=== PATIENT | female | born 1940 | race Caucasian/White ===

== ENCOUNTER → 2017-05-28 06:50 | Outpatient (REF) | payer MEDICARE, MEDICAID, SELFPAY ==
[2017-05-28 09:01] LABS: Hematocrit 42.3 % (37-47); Hemoglobin 12.9 g/dl (12.0-15.0); Mean Corp Hgb Conc 30.5 g/gl (32-36); Mean Corpuscular Hgb 26.9 pg (27.0-32.0); Mean Corpuscular Volume 88.3 fL (81-99); Mean Platelet Vol. 10.9 fl (6.2-12.0); Platelet Count 212 K/mm3 (150-450); RBC Distribution Width CV 15.1 % (11.6-14.6); RBC Distribution Width SD 48.8 fl (35.1-43.9); Red Blood Count 4.79 M/mm3 (4.2-5.4); White Blood Count 9.7 K/mm3 (4.4-11.0)
[2017-05-28 09:05] LABS: Scan Indicated on CBC? Y/N NO
[2017-05-28 09:12] LABS: Anion Gap 10 (5-15); BUN 16 mg/dL (7-18); BUN/Creat Ratio 18.8 RATIO (10-20); Chloride 97 mmol/L (98-107); Cholesterol 175 mg/dL (200); Creatinine, Serum 0.85 mg/dL (0.55-1.02); EST Glomerular Filtration Rate 69 mL/min (>60); Est Glom Filt Rate - Afr Amer 84 mL/min (>60); Glucose 236 mg/dL (70-110); High Density Lipoprotein 65 mg/dL; Potassium 4.1 mmol/L (3.5-5.1); Sodium Level 137 mmol/L (136-145); Triglycerides 75 mg/dL; Very Low Density Lipoprotein 15 mg/dL (5-40)
[2017-05-28 09:26] LABS: Hemoglobin A1c 9.3 % (4.2-6.3)
== END ==
LOC: OLS.WHLEAS 06:50
PROVIDERS: Visit Provider Family Medicine
DX: I10 Essential (primary) hypertension (principal); E78.5 Hyperlipidemia, unspecified; E11.9 Type 2 diabetes mellitus without complications
CPT/HCPCS: 36415; 80048; 80061; 83036; 85027

== ENCOUNTER 2017-09-23 08:19 | Day surgery (SDC) | payer MEDICARE, MEDICAID, SELFPAY ==
[2017-09-23 08:42] VITALS: BP 116/49; PULSE 79; RESP 16; TEMP 36.8; O2SAT 96; BMI 34.4
[2017-09-23 09:01] LABS: Bedside Glucose 165 mg/dL (70-110)
--- NOTE | 2017-09-23 09:20 | RAD_ITS ---
STUDY: X-RAY - LUMBAR SPINE REASON FOR EXAM: Female, 77 years old. Radio frequency ablation of L3-S1. TECHNIQUE: 9 intraoperative view(s) of the lumbar spine were obtained. COMPARISON: None FINDINGS: Provided images demonstrate placement of needles at the facet joints of L3-S1. Please refer to the operative report for further details. RAD/L/S Spine Min 4 Views IMPRESSION: Radiofrequency ablation of L3-S1 in the OR. Electronically Signed: Helio Gamboa DO at 13:34 EDT Tel [phone], Service support ,
[2017-09-23] MEDS: MethylPREDNISolone Acetate 80 MG/ML Vial (09:26)
[2017-09-23] MEDS: Bupivacaine 0.25% 30 ML Vial (09:26)
[2017-09-23 09:43] VITALS: BP 116/49; BP 117/68; PULSE 77; RESP 18; TEMP 37.3; O2SAT 94
[2017-09-23 09:50] VITALS: BP 105/55; BP 116/49; PULSE 72; RESP 18; O2SAT 93
[2017-09-23 09:55] VITALS: BP 115/58; BP 116/49; PULSE 71; RESP 18; O2SAT 96
[2017-09-23 10:03] VITALS: BP 106/64; BP 116/49; PULSE 71; RESP 18; TEMP 37; O2SAT 96
[2017-09-23 10:14] VITALS: BP 116/49
--- NOTE | 2017-09-23 12:51 | PCM.OPRPT ---
Problem List (1) Degeneration of intervertebral disc of lumbosacral region Status: Chronic (2) Spondylosis of lumbosacral region without myelopathy or radiculopathy Status: Chronic Report of Operation Date of Procedure: 09/23/17 Pre-Operative Diagnosis: Lumbosacral spondylosis, lumbosacral degenerative disc disease, lumbar facet arthropathy Post-Operative Diagnosis: Lumbosacral spondylosis, lumbosacral degenerative disc disease, lumbar facet arthropathy Surgery/Procedure Performed:: Right sided lumbar radiofrequency ablation of the medial branch at L3, L4, L5, S1 Description of Surgical Findings:: PROCEDURE: Right-sided radiofrequency ablation of the medial branch L3, L4, L5, S1 PREOPERATIVE DIAGNOSES: Lumbosacral spondylosis, lumbosacral degenerative disc disease, lumbar facet arthropathy POSTOPERATIVE DIAGNOSES: Lumbosacral spondylosis, lumbosacral degenerative disc disease, lumbar facet arthropathy ANESTHESIA: MAC COMPLICATIONS: None BLOOD LOSS: Minimal PROCEDURE IN DETAIL: History and physical today was reviewed. Risks and benefits of procedure explained. The patient understood, agreed to the procedure and informed consent was obtained. IV inserted per routine protocol. The patient was taken to the operating room, placed in the prone position with a pillow positioned underneath the abdomen. The right side of the lower back was prepped and draped in a sterile fashion using iodine x 3. Under fluoroscopy guidance, on an oblique view, the L3 through S1 vertebral bodies were visualized. The skin and subcutaneous tissue was anesthetized with approximately 10 mL of 1% lidocaine using a 25-gauge regular needle. Under direct visualization with fluoroscopy at approximately 25-degree angle, starting on the right L3, ending on the right S1 passing through the L4-L5 using a 20-gauge 15 cm with a 10 mm curved active tip radiofrequency ablation needle the needle passed through the skin. The tip of the needle was maneuvered and directed towards the superior and medial gutter of the transverse process at the vicinity of the medial branch. Once the tip of the needle was in contact with the bone, the needle pulled approximately 2 mm up the bone. The stylet of each needle was then removed. After negative aspiration of blood with CSF and confirmation of AP as well as oblique view, radiofrequency ablation probe was then inserted at each level. Impedance was then recorded at L3 to be 265, at L4 272, at L5 238, at S1 274 ohm. Motor-evoked potential was then initiated to 1.5 volt without any motor response at each corresponding level. The probe was then removed intact and a total of 6 mL preservative-free 1% lidocaine was injected in divided doses between those 4 levels after negative aspiration of blood with CSF. The radiofrequency ablation probe was then reinserted after confirmation of AP, oblique as well as lateral view. Radiofrequency ablation was then initiated to 80 degrees Celsius for 90 seconds at each level. Once concluded, the probe was then removed intact and a total of 6 mL of preservative-free 0.25% Marcaine with 40 mg Depo-Medrol was injected in divided doses between those 4 levels. The needles were then removed intact. The patient experienced no signs or symptoms of intrathecal, intravascular injection. The patient experienced no paraesthesia. The procedure was completed without any apparent difficulty, any complication. The patient appeared to tolerate well. Sensory as well as motor exam was unchanged from prior to procedure. ASSESSMENT AND PLAN: This is a 77-year-old Female with lumbosacral spondylosis, lumbosacral degenerative disc disease, lumbar facet arthropathy, status post right-sided radiofrequency ablation of the medial branch L3 through S1. The patient will continue her current medications. The patient will follow up in approximately 2 weeks for reevaluation.
== END 2017-09-23 10:28 | disposition home or self-care (01) ==
LOC: SDC 08:20 → AC 08:45
PROVIDERS: Family Provider Family Medicine; PCP Family Medicine; Visit Provider Anesthesiology Pain Medicine
PROC: (CPT 62282; principal; 2017-09-23 09:25)
DX: M47.817 Spondylosis without myelopathy or radiculopathy, lumbosacral region (principal); M51.37 Other intervertebral disc degeneration, lumbosacral region; K21.9 Gastro-esophageal reflux disease without esophagitis; F32.9 Major depressive disorder, single episode, unspecified; F41.9 Anxiety disorder, unspecified; E11.9 Type 2 diabetes mellitus without complications; M46.96 Unspecified inflammatory spondylopathy, lumbar region; M79.7 Fibromyalgia; M50.30 Other cervical disc degeneration, unspecified cervical region; M48.02 Spinal stenosis, cervical region; M47.812 Spondylosis without myelopathy or radiculopathy, cervical region; G89.29 Other chronic pain; M17.12 Unilateral primary osteoarthritis, left knee; Z79.891 Long term (current) use of opiate analgesic; Z96.651 Presence of right artificial knee joint
CPT/HCPCS: 62282 ×4; 72110; 76000; 82962; J7120

== ENCOUNTER → 2017-11-08 06:20 | Outpatient (REF) | payer MEDICARE, MEDICAID, SELFPAY ==
[2017-11-08 08:21] LABS: ALB/GLOB Ratio 0.9 RATIO (0.9-2.4); AST(SGOT) 23 U/L (15-37); Alanine Aminotransfer ALT/SGPT 30 U/L (13-56); Albumin, Serum 3.3 g/dL (3.2-5.0); Alkaline Phosphatase 73 U/L (45-117); Anion Gap 7 (5-15); BUN 13 mg/dL (7-18); BUN/Creat Ratio 14.5 RATIO (10-20); Calcium,Total 8.8 mg/dL (8.5-10.1); Chloride 103 mmol/L (98-107); Cholesterol 136 mg/dL (200); EST Glomerular Filtration Rate 65 mL/min (>60); Est Glom Filt Rate - Afr Amer 79 mL/min (>60); Globulin 3.8 g/dL (2.2-4.2); Glucose 135 mg/dL (74-106); High Density Lipoprotein 54 mg/dL; Potassium 4.8 mmol/L (3.5-5.1); Protein, Total 7.1 g/dL (6.4-8.2); Sodium Level 143 mmol/L (136-145); Triglycerides 83 mg/dL; Very Low Density Lipoprotein 17 mg/dL (5-40)
[2017-11-08 09:46] LABS: Hemoglobin A1c 7.9 % (4.2-6.3)
== END ==
LOC: OLS.WHLEAS 06:20
PROVIDERS: Visit Provider Family Medicine
DX: E11.9 Type 2 diabetes mellitus without complications (principal); I10 Essential (primary) hypertension; E78.5 Hyperlipidemia, unspecified
CPT/HCPCS: 36415; 80053; 80061; 83036

== ENCOUNTER 2017-11-23 21:37 | Emergency (ER) | payer MEDICARE, MEDICAID, SELFPAY ==
[2017-11-23 21:38] VITALS: BP 135/61; PULSE 97; RESP 18; TEMP 36.7; O2SAT 98; BMI 35.2
[2017-11-23 22:17] LABS: Absolute Lymphocyte Count 1.71 X10^3/ul (0.83-4.51); Absolute Neutrophil Count 7.5 X10^3/uL (2.0-7.7); Basophil# 0.02 X10^3/uL; Basophil% 0.2 % (0-1); Eosinophil# 0.22 X10^3/uL; Eosinophils% 2.2 % (0-5); Hematocrit 41.1 % (37-47); Hemoglobin 13.3 g/dl (12.0-15.0); Lymphocyte # 1.71 X10^3/ul (4.0); Lymphocyte % 17.3 % (19-41); Mean Corp Hgb Conc 32.4 g/gl (32-36); Mean Corpuscular Volume 89.7 fL (81-99); Mean Platelet Vol. 10.7 fl (6.2-12.0); Monocyte# 0.48 X10^3/uL; Monocyte% 4.8 % (0-10); Neutrophil # 7.45 X10^3/uL (2.7-7.7); Neutrophil % 75.3 % (47-70); POSITIVE COUNT NO; POSITIVE DIFFERENTIAL NO; POSITIVE MORPHOLOGY NO; Platelet Count 194 K/mm3 (150-450); RBC Distribution Width CV 13.7 % (11.6-14.6); RBC Distribution Width SD 44.6 fl (35.1-43.9); Red Blood Count 4.58 M/mm3 (4.2-5.4); White Blood Count 9.9 K/mm3 (4.4-11.0)
[2017-11-23 22:29] LABS: Anion Gap 6 (5-15); BUN 16 mg/dL (7-18); BUN/Creat Ratio 14.5 RATIO (10-20); Calcium,Total 8.8 mg/dL (8.5-10.1); Chloride 102 mmol/L (98-107); EST Glomerular Filtration Rate 51 mL/min (>60); Est Glom Filt Rate - Afr Amer 62 mL/min (>60); Estimated Creatinine Clearance 36.55 ml/min; Glucose 264 mg/dL (74-106); Potassium 4.3 mmol/L (3.5-5.1); Sodium Level 138 mmol/L (136-145)
--- NOTE | 2017-11-23 22:50 | ED.VISSUMM ---
- ER Visit Summary Date of Service: 11/23/17 Chief Complaint: Redness of the legs History of Present Illness: The patient is a 77 F who has had redness in her legs for multiple days. She lives in a skilled nursing. She tried to get the doctor to call her in a prescription for antibiotics but he would not do it. Patient has had low-grade temperatures of 99 at the skilled nursing. She does have a history of cellulitis in the past. She is DNR comfort care only. She is a diabetic as well Physical Examination: Vital signs are reviewed. HEENT exam normal. Heart is regular rate rhythm. Lungs are clear. Abdomen soft. Bilateral lower extremities reveal cellulitis below the knee of both legs. Excluding the foot. Neurologic exam is at baseline Test Results: Laboratory studies are at baseline. White blood cell count normal. Emergency Department Course and Treatment: Patient does not wish to stay in the hospital. She is a DNR comfort care only. With her normal white blood cell count I feel that it is appropriate to treat her as an outpatient. I will give her Keflex as she has a Bactrim allergy. She will follow-up with the skilled nursing doctor Treatment Plan: [] Disposition: Discharge Impression: Bilateral lower extremity cellulitis This note was generated with stickapps dictation software. It may contain incorrect words, spelling, and punctuation that were not noted in review of the chart prior to signing ED Disposition - Plan for ED Patient: Chief Complaint: Cellulitis Referrals: Alistair Thorpe III, MD [Primary Care Provider] -
--- NOTE | 2017-11-23 22:52 | ED.DEP ---
ED Disposition - Plan for ED Patient: Disposition: Home or Assisted Living Chief Complaint: Cellulitis Instructions: Discharge Instructions for Cellulitis Prescriptions: Cephalexin [Keflex] 500 mg PO Q6 #40 cap Referrals: Alistair Thorpe III, MD [Primary Care Provider] -
[2017-11-23] MEDS: Cephalexin 250 MG Capsule 500 MG PO (23:00)
[2017-11-23 23:02] VITALS: BP 128/78; PULSE 92; RESP 14; O2SAT 99
== END 2017-11-23 23:02 | disposition home or self-care (01) ==
PROVIDERS: Emergency Provider Emergency Medicine; Family Provider Family Medicine; PCP Family Medicine
DX: L03.116 Cellulitis of left lower limb (principal); L03.115 Cellulitis of right lower limb; Z66 Do not resuscitate; E11.9 Type 2 diabetes mellitus without complications; I10 Essential (primary) hypertension; J45.909 Unspecified asthma, uncomplicated; F32.9 Major depressive disorder, single episode, unspecified; Z88.3 Allergy status to other anti-infective agents
CPT/HCPCS: 80048; 85025; 99284

== ENCOUNTER 2017-11-24 23:02 | Emergency (ER) | payer MEDICARE, MEDICAID, SELFPAY ==
[2017-11-24 23:02] VITALS: BP 133/69; PULSE 76; RESP 20; TEMP 37; O2SAT 98; BMI 34.9
--- NOTE | 2017-11-24 23:22 | ED.DCSUM_ITS ---
- ER Visit Summary Date of Service: 11/24/17 Chief Complaint: Reported confusion History of Present Illness: The patient is a 77 F presents to the emergency department from her longterm with reported confusion. The patient has a history of dementia and chronic pain. She is on multiple medications for both of these. She was actually seen here yesterday with bilateral lower extremity erythema and diagnosed with cellulitis. She was started on Keflex. She states that today, she was in her normal state of health. She states that she had a muscle relaxer went to sleep. When she woke up, her sister who was visiting her had left when she was sleeping. She states that she was angry that she did not to see her sister and was a little bit confused when she woke up. The nursing staff thought that she was more confused and might be septic. On arrival here, the patient's only complaint is of his mild frontal headache. She states that she was just groggy from sleeping. She denies being more confused. She denies any increasing pain in her legs. She has had no fevers or chills. She has taken all of her medications as prescribed. Physical Examination: Vital signs reviewed General: Well-nourished, well-developed Head: Normocephalic, atraumatic Eyes: Pupils equal and reactive, extraocular muscles intact Neck, supple, no lymphadenopathy Heart: Regular rate and rhythm Respiratory: No distress, clear bilaterally Abdomen: Soft, nontender, nondistended, no peritoneal signs Back: Nontender Extremities: 1+ symmetric edema of the lower extremities with anterior erythema but does not extend into the feet or into the knees. No crepitus. Normal pulses. Skin: Normal color no rash Neuro: Alert and oriented, no focal or lateralizing deficits Test Results: [] Emergency Department Course and Treatment: The patient is awake and alert. She is oriented by 3. She has no evidence of delirium or confusion. The patient is DNR Comfort Care only. She was complaining of a mild frontal headache. I did offer her CT scan, but she outwardly refused. I do feel this patient has capacity to make her own decisions. She states that she does wants her pain controlled. With her goals of comfort care, I do feel that this is reasonable. I did repeat some screening labs. These were unremarkable. I did review the patient's outpatient records. About 3 days ago, the patient's Requip was stopped. I do feel that a lot of her symptoms are because of this medication withdrawal. The patient does have underlying mild dementia and Parkinson's disease. Since stopping the medication, she has had intermittent confusion and worsening headache. I do not feel that she is encephalopathic. She is not delirious. I do feel that this is more because of medication changes. I did recommend the patient resume her Requip. She is given her dose here in the emergency department and documentation was made on her notes back to her facility. The patient is requesting discharge and does have the capacity to make her own decisions. I feel this is reasonable. Treatment Plan: [] Disposition: Discharge Impression: 1. Confusion-resolved 2. Medication withdrawal This note was generated with Cine[employer] dictation software. It may contain incorrect words, spelling, and punctuation that were not noted in review of the chart prior to signing ED Disposition - Plan for ED Patient: Chief Complaint: Confusion Instructions: ED Confusion Referrals: Alistair Thorpe III, MD [Primary Care Provider] - Additional Instructions: Please discuss with your doctor about resuming your Requip, as I do feel a lot of your symptoms are because of medication withdrawal. You were given a 2 mg dose tonight.
[2017-11-24] MEDS: Ondansetron 4 MG/2 ML Vial IV (23:48)
[2017-11-24] MEDS: Morphine 4 MG/ML Syringe IV (23:49)
[2017-11-24 23:50] LABS: Bacteria 0 SEEN /hpf (None Seen); Mucous, Urine 0 SEEN /hpf (<or=2+); Red Blood Cells-Urine 0 SEEN /hpf (0-5); Squamous Epithelial Cells - UA 0 SEEN /hpf (5-10); White Blood Cells 0 SEEN /hpf (0-5)
[2017-11-24 23:55] LABS: Color, Urine Straw (Yellow); Glucose, Dipstick Normal (Normal); Ketone-Dipstick Negative (Negative); Leukocyte Esterase-Dipstick Negative /ul (Negative); Nitrite-Dipstick Negative (Negative); Occult Blood-Urine Negative /ul (Negative); Protein-Dipstick Negative (Negative); Urine Bilirubin Dipstick Negative (Negative); Urine Clarity Clear (Clear); Urine Urobilinogen Normal (Normal)
[2017-11-24 23:57] LABS: Absolute Lymphocyte Count 2.25 X10^3/ul (0.83-4.51); Absolute Neutrophil Count 7.1 X10^3/uL (2.0-7.7); Basophil# 0.02 X10^3/uL; Basophil% 0.2 % (0-1); Eosinophil# 0.25 X10^3/uL; Eosinophils% 2.4 % (0-5); Hematocrit 43.3 % (37-47); Hemoglobin 14.3 g/dl (12.0-15.0); Lymphocyte # 2.25 X10^3/ul (4.0); Lymphocyte % 21.8 % (19-41); Mean Corpuscular Hgb 29.2 pg (27.0-32.0); Mean Corpuscular Volume 88.4 fL (81-99); Mean Platelet Vol. 10.8 fl (6.2-12.0); Monocyte% 6.8 % (0-10); Neutrophil # 7.06 X10^3/uL (2.7-7.7); Neutrophil % 68.3 % (47-70); Platelet Count 224 K/mm3 (150-450); RBC Distribution Width CV 13.7 % (11.6-14.6); RBC Distribution Width SD 44.3 fl (35.1-43.9); White Blood Count 10.3 K/mm3 (4.4-11.0)
[2017-11-25 00:02] VITALS: RESP 20; O2SAT 84
[2017-11-25 00:03] LABS: POSITIVE COUNT NO; POSITIVE DIFFERENTIAL NO; POSITIVE MORPHOLOGY NO
--- NOTE | 2017-11-25 00:03 | ED.RN ---
PT PLACED ON O2 2L VIA NC. DR BOCANEGRA NOTIFIED
[2017-11-25 00:04] VITALS: O2SAT 99
[2017-11-25 00:18] LABS: ALB/GLOB Ratio 0.8 RATIO (0.9-2.4); AST(SGOT) 36 U/L (15-37); Alanine Aminotransfer ALT/SGPT 41 U/L (13-56); Albumin, Serum 3.5 g/dL (3.2-5.0); Alkaline Phosphatase 104 U/L (45-117); Anion Gap 7 (5-15); BUN 14 mg/dL (7-18); BUN/Creat Ratio 13.2 RATIO (10-20); Chloride 104 mmol/L (98-107); Creatinine, Serum 1.06 mg/dL (0.55-1.02); EST Glomerular Filtration Rate 54 mL/min (>60); Est Glom Filt Rate - Afr Amer 65 mL/min (>60); Estimated Creatinine Clearance 37.93 ml/min; Globulin 4.6 g/dL (2.2-4.2); Glucose 108 mg/dL (74-106); Potassium 3.8 mmol/L (3.5-5.1); Protein, Total 8.1 g/dL (6.4-8.2); Sodium Level 140 mmol/L (136-145)
[2017-11-25 00:51] VITALS: BP 136/78; PULSE 79; RESP 20; O2SAT 97
[2017-11-25] MEDS: Pramipexole Di-HCl 1 MG Tablet PO (00:51)
--- NOTE | 2017-11-25 00:52 | ED.RN ---
THIS NURSE REVIEWED D/C INSTRUCTIONS WITH PT AND FAMILY MEMBER. BOTH VERBALIZED UNDERSTANDING OF INSTRUCTIONS. IV D/C. IV CATHETER INTACT. PT TOLERATED WELL. PT DENIES FURTHER NEEDS OR QUESTIONS AT THIS TIME. PT ASSISTED TO VEHICLE VIA W/C
== END 2017-11-25 00:53 | disposition home or self-care (01) ==
LOC: ED 23:41
PROVIDERS: Emergency Provider Emergency Medicine; Family Provider Family Medicine; PCP Family Medicine
DX: R41.0 Disorientation, unspecified (principal); F19.939 Other psychoactive substance use, unspecified with withdrawal, unspecified; R60.0 Localized edema; F03.90 Unspecified dementia, unspecified severity, without behavioral disturbance, psychotic disturbance, mood disturbance, and anxiety; G89.29 Other chronic pain; G20 Parkinson's disease; I10 Essential (primary) hypertension; E78.00 Pure hypercholesterolemia, unspecified; Z66 Do not resuscitate; Z79.899 Other long term (current) drug therapy
CPT/HCPCS: 80053; 81001; 85025; 96361; 96374; 96375; 99284; J7040; A4216; J2405

== ENCOUNTER → 2017-12-12 17:25 | Outpatient (CLI) | payer MEDICARE, MEDICAID, SELFPAY ==
[2017-12-12 17:53] LABS: Absolute Lymphocyte Count 1.49 X10^3/ul (0.83-4.51); Basophil# 0.02 X10^3/uL; Basophil% 0.2 % (0-1); Eosinophil# 0.13 X10^3/uL; Eosinophils% 1.6 % (0-5); Hemoglobin 13.7 g/dl (12.0-15.0); Lymphocyte # 1.49 X10^3/ul (4.0); Lymphocyte % 18.1 % (19-41); Mean Corp Hgb Conc 31.9 g/gl (32-36); Mean Corpuscular Hgb 28.7 pg (27.0-32.0); Mean Platelet Vol. 10.3 fl (6.2-12.0); Monocyte% 7.3 % (0-10); Neutrophil # 5.99 X10^3/uL (2.7-7.7); Neutrophil % 72.6 % (47-70); Platelet Count 211 K/mm3 (150-450); RBC Distribution Width CV 13.6 % (11.6-14.6); RBC Distribution Width SD 44.8 fl (35.1-43.9); Red Blood Count 4.78 M/mm3 (4.2-5.4); White Blood Count 8.3 K/mm3 (4.4-11.0)
[2017-12-12 18:03] LABS: POSITIVE COUNT NO; POSITIVE DIFFERENTIAL NO; POSITIVE MORPHOLOGY NO
[2017-12-12 18:49] LABS: ALB/GLOB Ratio 0.8 RATIO (0.9-2.4); AST(SGOT) 44 U/L (15-37); Alanine Aminotransfer ALT/SGPT 47 U/L (13-56); Albumin, Serum 3.6 g/dL (3.2-5.0); Alkaline Phosphatase 106 U/L (45-117); Anion Gap 7 (5-15); BUN 13 mg/dL (7-18); BUN/Creat Ratio 12.9 RATIO (10-20); Calcium,Total 9.4 mg/dL (8.5-10.1); Chloride 97 mmol/L (98-107); Cholesterol 176 mg/dL (200); Creatinine, Serum 1.01 mg/dL (0.55-1.02); EST Glomerular Filtration Rate 57 mL/min (>60); Est Glom Filt Rate - Afr Amer 69 mL/min (>60); Globulin 4.6 g/dL (2.2-4.2); Glucose 235 mg/dL (74-106); High Density Lipoprotein 54 mg/dL; Potassium 4.7 mmol/L (3.5-5.1); Protein, Total 8.2 g/dL (6.4-8.2); Sodium Level 135 mmol/L (136-145); Thyroid Stim Hormone (TSH) 0.76 uIU/mL (0.358-3.74); Triglycerides 135 mg/dL; Very Low Density Lipoprotein 27 mg/dL (5-40)
[2017-12-13 08:51] LABS: Vitamin D,25 Hydroxy 26.1 ng/mL (29.95-100.01)
== END ==
PROVIDERS: Family Provider Family Medicine; PCP Family Medicine; Visit Provider Family Medicine Geriatric Medicine
DX: E11.40 Type 2 diabetes mellitus with diabetic neuropathy, unspecified (principal); E78.4 Other hyperlipidemia; E55.9 Vitamin D deficiency, unspecified
CPT/HCPCS: 36415; 80053; 80061; 82306; 84443; 85025

== ENCOUNTER → 2017-12-19 12:50 | Outpatient (CLI) | payer MEDICARE, MEDICAID, SELFPAY | PROVIDERS: Family Provider Family Medicine; PCP Family Medicine; Visit Provider Family Medicine Geriatric Medicine | DX: Z78.0 Asymptomatic menopausal state (principal) | CPT/HCPCS: 77080 ==

== ENCOUNTER → 2018-01-16 05:00 | Outpatient (REF) | payer MEDICARE, MEDICAID, SELFPAY ==
[2018-01-16 10:39] LABS: Anion Gap 8 (5-15); BUN 22 mg/dL (7-18); BUN/Creat Ratio 18.6 RATIO (10-20); Calcium,Total 9.3 mg/dL (8.5-10.1); Chloride 99 mmol/L (98-107); Creatinine, Serum 1.18 mg/dL (0.55-1.02); EST Glomerular Filtration Rate 47 mL/min (>60); Est Glom Filt Rate - Afr Amer 57 mL/min (>60); Glucose 149 mg/dL (74-106); Potassium 4.8 mmol/L (3.5-5.1); Sodium Level 137 mmol/L (136-145)
== END ==
LOC: OLS.WHLEAS 05:00
PROVIDERS: Visit Provider Family Medicine Geriatric Medicine
DX: E11.9 Type 2 diabetes mellitus without complications (principal); I10 Essential (primary) hypertension
CPT/HCPCS: 36415; 80048

== ENCOUNTER → 2018-03-26 05:00 | Outpatient (REF) | payer MEDICARE, MEDICAID, SELFPAY ==
[2018-03-26 08:44] LABS: Anion Gap 12 (5-15); BUN 67 mg/dL (7-18); BUN/Creat Ratio 44.1 RATIO (10-20); Calcium,Total 8.9 mg/dL (8.5-10.1); Chloride 92 mmol/L (98-107); Creatinine, Serum 1.52 mg/dL (0.55-1.02); EST Glomerular Filtration Rate 35 mL/min (>60); Est Glom Filt Rate - Afr Amer 43 mL/min (>60); Glucose 306 mg/dL (74-106); Potassium 4.6 mmol/L (3.5-5.1); Sodium Level 134 mmol/L (136-145)
== END ==
LOC: OLS.WHLEAS 05:00
PROVIDERS: Visit Provider Family Medicine
DX: R60.9 Edema, unspecified (principal)
CPT/HCPCS: 36415; 80048

== ENCOUNTER → 2018-05-20 06:05 | Outpatient (REF) | payer MEDICARE, MEDICAID, SELFPAY ==
[2018-05-20 08:31] LABS: ALB/GLOB Ratio 0.8 RATIO (0.9-2.4); AST(SGOT) 22 U/L (15-37); Alanine Aminotransfer ALT/SGPT 21 U/L (13-56); Albumin, Serum 3.1 g/dL (3.2-5.0); Alkaline Phosphatase 85 U/L (45-117); Anion Gap 7 (5-15); BUN 34 mg/dL (7-18); BUN/Creat Ratio 25.6 RATIO (10-20); Calcium,Total 8.7 mg/dL (8.5-10.1); Chloride 99 mmol/L (98-107); Cholesterol 123 mg/dL (200); Creatinine, Serum 1.33 mg/dL (0.55-1.02); EST Glomerular Filtration Rate 41 mL/min (>60); Est Glom Filt Rate - Afr Amer 50 mL/min (>60); Glucose 194 mg/dL (74-106); High Density Lipoprotein 56 mg/dL; Potassium 4.4 mmol/L (3.5-5.1); Protein, Total 7.1 g/dL (6.4-8.2); Sodium Level 135 mmol/L (136-145); Triglycerides 105 mg/dL; Very Low Density Lipoprotein 21 mg/dL (5-40)
== END ==
LOC: OLS.WHLEAS 06:05
PROVIDERS: Visit Provider Family Medicine
DX: I48.91 Unspecified atrial fibrillation (principal); E11.9 Type 2 diabetes mellitus without complications; I10 Essential (primary) hypertension; E78.5 Hyperlipidemia, unspecified; C67.9 Malignant neoplasm of bladder, unspecified; I87.2 Venous insufficiency (chronic) (peripheral); M19.019 Primary osteoarthritis, unspecified shoulder
CPT/HCPCS: 36415; 80053; 80061; 83036

== ENCOUNTER → 2018-06-17 05:00 | Outpatient (REF) | payer MEDICARE, MEDICAID, SELFPAY ==
[2018-06-17 07:45] LABS: Anion Gap 7 (5-15); BUN 38 mg/dL (7-18); Calcium,Total 8.5 mg/dL (8.5-10.1); Chloride 94 mmol/L (98-107); Creatinine, Serum 1.46 mg/dL (0.55-1.02); EST Glomerular Filtration Rate 37 mL/min (>60); Est Glom Filt Rate - Afr Amer 45 mL/min (>60); Glucose 396 mg/dL (74-106); Potassium 4.9 mmol/L (3.5-5.1); Sodium Level 132 mmol/L (136-145)
== END ==
LOC: OLS.WHLEAS 05:00
PROVIDERS: Visit Provider Family Medicine
DX: I50.9 Heart failure, unspecified (principal); E11.9 Type 2 diabetes mellitus without complications
CPT/HCPCS: 36415; 80048

== ENCOUNTER → 2018-06-26 05:00 | Outpatient (REF) | payer MEDICARE, SELFPAY ==
[2018-06-26 08:25] LABS: Hematocrit 32.6 % (37-47); Hemoglobin 9.9 g/dl (12.0-15.0); Mean Corp Hgb Conc 30.4 g/gl (32-36); Mean Corpuscular Hgb 28.8 pg (27.0-32.0); Mean Corpuscular Volume 94.8 fL (81-99); Mean Platelet Vol. 10.7 fl (6.2-12.0); Platelet Count 182 K/mm3 (150-450); RBC Distribution Width CV 14.7 % (11.6-14.6); RBC Distribution Width SD 50.5 fl (35.1-43.9); Red Blood Count 3.44 M/mm3 (4.2-5.4); White Blood Count 5.7 K/mm3 (4.4-11.0)
[2018-06-26 08:27] LABS: Scan Indicated on CBC? Y/N NO
[2018-06-26 08:36] LABS: Anion Gap 7 (5-15); BUN 76 mg/dL (7-18); BUN/Creat Ratio 33.2 RATIO (10-20); Calcium,Total 8.8 mg/dL (8.5-10.1); Chloride 102 mmol/L (98-107); Creatinine, Serum 2.29 mg/dL (0.55-1.02); EST Glomerular Filtration Rate 22 mL/min (>60); Est Glom Filt Rate - Afr Amer 27 mL/min (>60); Glucose 162 mg/dL (74-106); Potassium 5.9 mmol/L (3.5-5.1); Sodium Level 140 mmol/L (136-145)
== END ==
LOC: OLS.WHLEAS 05:00
PROVIDERS: Visit Provider Family Medicine
DX: R60.9 Edema, unspecified (principal); Z79.899 Other long term (current) drug therapy
CPT/HCPCS: 36415; 80048; 85027

== ENCOUNTER → 2018-07-03 06:35 | Outpatient (REF) | payer MEDICARE, MEDICAID, SELFPAY ==
[2018-07-03 08:24] LABS: Anion Gap 9 (5-15); BUN 50 mg/dL (7-18); BUN/Creat Ratio 31.2 RATIO (10-20); Calcium,Total 9.2 mg/dL (8.5-10.1); Chloride 96 mmol/L (98-107); EST Glomerular Filtration Rate 33 mL/min (>60); Est Glom Filt Rate - Afr Amer 40 mL/min (>60); Glucose 276 mg/dL (74-106); Potassium 4.6 mmol/L (3.5-5.1); Sodium Level 139 mmol/L (136-145)
== END ==
LOC: OLS.WHLEAS 06:35
PROVIDERS: Visit Provider Family Medicine
DX: E11.9 Type 2 diabetes mellitus without complications (principal); I10 Essential (primary) hypertension; R06.9 Unspecified abnormalities of breathing
CPT/HCPCS: 36415; 80048

== ENCOUNTER → 2018-07-15 05:30 | Outpatient (REF) | payer MEDICARE, SELFPAY ==
[2018-07-15 09:30] LABS: Anion Gap 9 (5-15); BUN 56 mg/dL (7-18); BUN/Creat Ratio 31.5 RATIO (10-20); Calcium,Total 8.8 mg/dL (8.5-10.1); Chloride 94 mmol/L (98-107); Creatinine, Serum 1.78 mg/dL (0.55-1.02); EST Glomerular Filtration Rate 30 mL/min (>60); Est Glom Filt Rate - Afr Amer 36 mL/min (>60); Glucose 150 mg/dL (74-106); Potassium 3.9 mmol/L (3.5-5.1); Sodium Level 139 mmol/L (136-145)
== END ==
LOC: OLS.WHLEAS 05:30
PROVIDERS: Visit Provider Family Medicine
DX: N18.9 Chronic kidney disease, unspecified (principal)
CPT/HCPCS: 36415; 80048

== ENCOUNTER → 2018-08-14 05:00 | Outpatient (REF) | payer MEDICARE, MEDICAID, SELFPAY ==
[2018-08-14 08:38] LABS: Anion Gap 6 (5-15); BUN 48 mg/dL (7-18); BUN/Creat Ratio 31.4 RATIO (10-20); Calcium,Total 8.5 mg/dL (8.5-10.1); Chloride 95 mmol/L (98-107); Creatinine, Serum 1.53 mg/dL (0.55-1.02); EST Glomerular Filtration Rate 35 mL/min (>60); Est Glom Filt Rate - Afr Amer 42 mL/min (>60); Glucose 388 mg/dL (74-106); Potassium 4.3 mmol/L (3.5-5.1); Sodium Level 133 mmol/L (136-145)
== END ==
LOC: OLS.WHLEAS 05:00
PROVIDERS: Visit Provider Family Medicine
DX: E11.9 Type 2 diabetes mellitus without complications (principal); N18.9 Chronic kidney disease, unspecified
CPT/HCPCS: 36415; 80048

== ENCOUNTER → 2018-09-10 05:00 | Outpatient (REF) | payer MEDICARE, SELFPAY ==
[2018-09-10 08:54] LABS: Anion Gap 9 (5-15); BUN 42 mg/dL (7-18); BUN/Creat Ratio 24.1 RATIO (10-20); Calcium,Total 8.6 mg/dL (8.5-10.1); Chloride 97 mmol/L (98-107); Creatinine, Serum 1.74 mg/dL (0.55-1.02); EST Glomerular Filtration Rate 30 mL/min (>60); Est Glom Filt Rate - Afr Amer 37 mL/min (>60); Glucose 259 mg/dL (74-106); Potassium 4.5 mmol/L (3.5-5.1); Sodium Level 138 mmol/L (136-145)
== END ==
LOC: OLS.WHLEAS 05:00
PROVIDERS: Visit Provider Family Medicine
DX: I10 Essential (primary) hypertension (principal); F03.90 Unspecified dementia, unspecified severity, without behavioral disturbance, psychotic disturbance, mood disturbance, and anxiety
CPT/HCPCS: 36415; 80048

== ENCOUNTER → 2018-10-15 | Outpatient (REF) | payer MEDICARE, MEDICAID, SELFPAY ==
[2018-10-15 07:35] LABS: Anion Gap 5 (5-15); BUN 51 mg/dL (7-18); BUN/Creat Ratio 23.2 RATIO (10-20); Calcium,Total 8.6 mg/dL (8.5-10.1); Chloride 99 mmol/L (98-107); EST Glomerular Filtration Rate 23 mL/min (>60); Est Glom Filt Rate - Afr Amer 28 mL/min (>60); Glucose 236 mg/dL (74-106); Potassium 5.1 mmol/L (3.5-5.1); Sodium Level 135 mmol/L (136-145)
== END | disposition home or self-care (01) ==
LOC: OLS.WHLEAS 05:00
PROVIDERS: Visit Provider Family Medicine
DX: I48.91 Unspecified atrial fibrillation (principal); E11.9 Type 2 diabetes mellitus without complications; I10 Essential (primary) hypertension; E78.5 Hyperlipidemia, unspecified
CPT/HCPCS: 36415; 80048

== ENCOUNTER → 2018-11-11 05:00 | Outpatient (REF) | payer MEDICARE, MEDICAID, SELFPAY ==
[2018-11-11 07:30] LABS: BUN 33 mg/dL (7-18); Creatinine, Serum 1.52 mg/dL (0.55-1.02); Glucose 105 mg/dL (74-106)
[2018-11-11 07:31] LABS: ALB/GLOB Ratio 0.8 RATIO (0.9-2.4); AST(SGOT) 24 U/L (15-37); Alanine Aminotransfer ALT/SGPT 23 U/L (13-56); Alkaline Phosphatase 88 U/L (45-117); Anion Gap 8 (5-15); BUN/Creat Ratio 21.7 RATIO (10-20); Calcium,Total 9.1 mg/dL (8.5-10.1); Chloride 100 mmol/L (98-107); EST Glomerular Filtration Rate 35 mL/min (>60); Est Glom Filt Rate - Afr Amer 43 mL/min (>60); Potassium 3.7 mmol/L (3.5-5.1); Sodium Level 137 mmol/L (136-145); Thyroid Stim Hormone (TSH) 1.76 uIU/mL (0.358-3.74)
[2018-11-11 08:56] LABS: Hemoglobin A1c 8.1 % (4.2-6.3)
== END ==
LOC: OLS.WHLEAS 05:00
PROVIDERS: Visit Provider Family Medicine
DX: I10 Essential (primary) hypertension (principal); E11.9 Type 2 diabetes mellitus without complications
CPT/HCPCS: 36415; 80053; 83036; 84443

== ENCOUNTER → 2018-11-24 17:04 | Outpatient (CLI) | payer MEDICARE, MEDICAID, SELFPAY ==
--- NOTE | 2018-11-24 17:13 | MRI_ITS ---
HISTORY:ddd,stenosis, radiculopathychronic rt sided neck pain into rt shoulder ddd,stenosis, radiculopathychronic rt sided neck pain into rt shoulder TECHNIQUE: Routine MRI of the cervical spine was performed. IV Contrast dosage and agent: COMPARISON: December 18, 2006 how no prior reports were available FINDINGS: # of images incl. paperwork: 248 The visualized portion of posterior fossa appears within normal limits VERTEBRAE: Vertebral body heights are maintained VERTEBRAL ALIGNMENT: Normal, including the craniocervical junction and cervicothoracic junction. There is approximately 2 mm anterior spondylolisthesis of C4 on C5 that is new since the prior study There is preservation of the normal cervical lordosis. CORD: Evaluation is somewhat limited due to motion NECK SOFT TISSUES: No prevertebral soft tissue swelling. There is no cervical adenopathy. C2/C3: Normal disc height and morphology. Normal central canal and neuroforamina. C3/C4: Normal disc height and morphology. Normal central canal and neuroforamina. C4/C5: Approximately 2 mm anterior spondylolisthesis C4 on C5. There is a diffuse annular bulge does efface the ventral thecal sac and abuts the spinal cord. No canal stenosis. Moderate bilateral neuroforaminal narrowing C5/C6: Decreased disc height and hydration with subchondral sclerosis. There is a diffuse annular bulge/central disc protrusion poorly visualized on this study. There is effacement of the ventral thecal sac. This does abut the spinal cord. The canal is at the lower limits of normal. Moderate bilateral neuroforaminal narrowing C6/C7: Decreased disc height and hydration. Suspect osteophyte disc complex with poorly visualized on this study. Diffuse annular bulge effacing the ventral thecal sac. No canal stenosis. There is mild right and moderate left neural foraminal narrowing C7-T1: No evidence for disc contour abnormality or canal stenosis. No significant neuroforaminal narrowing MRI/Spine Cervical (Routine) IMPRESSION: Evaluation somewhat limited due to motion Diffuse annular bulge seen at the level of C4-5 with 2 mm anterior spondylolisthesis of C4 on C5. No canal stenosis with moderate bilateral neuroforaminal narrowing C5-6 diffuse annular bulge/central disc protrusion. The canal is at the lower limits of normal. Moderate bilateral neuroforaminal narrowing. C6-7 suspect osteophyte disc complex with diffuse annular bulge. No canal stenosis. Mild right and moderate left neuroforaminal narrowing Suspect calcifications of posterior longitudinal ligament from the level of C4 to see 6 at 2019 Reported and signed by: Yael Driver DO Electronically Signed: Yael Driver DO at 20:18 EDT Tel , Service support ,
== END ==
PROVIDERS: Family Provider Family Medicine; PCP Family Medicine; Referring Provider Nurse Practitioner Family; Visit Provider Nurse Practitioner Family
DX: M54.12 Radiculopathy, cervical region (principal); M47.812 Spondylosis without myelopathy or radiculopathy, cervical region; M50.30 Other cervical disc degeneration, unspecified cervical region; M48.02 Spinal stenosis, cervical region
CPT/HCPCS: 72141

== ENCOUNTER → 2018-12-17 05:00 | Outpatient (REF) | payer MEDICARE, MEDICAID, SELFPAY ==
[2018-12-17 07:52] LABS: Anion Gap 9 (5-15); BUN 51 mg/dL (7-18); BUN/Creat Ratio 28.8 RATIO (10-20); Calcium,Total 8.8 mg/dL (8.5-10.1); Chloride 103 mmol/L (98-107); Creatinine, Serum 1.77 mg/dL (0.55-1.02); EST Glomerular Filtration Rate 30 mL/min (>60); Est Glom Filt Rate - Afr Amer 36 mL/min (>60); Glucose 240 mg/dL (74-106); Potassium 5.5 mmol/L (3.5-5.1); Sodium Level 140 mmol/L (136-145)
== END ==
LOC: OLS.WHLEAS 05:00
PROVIDERS: Visit Provider Family Medicine
DX: G20 Parkinson's disease (principal); E11.9 Type 2 diabetes mellitus without complications; G89.4 Chronic pain syndrome; I12.9 Hypertensive chronic kidney disease with stage 1 through stage 4 chronic kidney disease, or unspecified chronic kidney disease; N18.9 Chronic kidney disease, unspecified; I48.91 Unspecified atrial fibrillation; J45.909 Unspecified asthma, uncomplicated
CPT/HCPCS: 36415; 80048

== ENCOUNTER → 2019-01-14 05:00 | Outpatient (REF) | payer MEDICARE, MEDICAID, SELFPAY ==
[2019-01-14 08:27] LABS: Anion Gap 5 (5-15); BUN 35 mg/dL (7-18); BUN/Creat Ratio 22.9 RATIO (10-20); Calcium,Total 8.8 mg/dL (8.5-10.1); Chloride 100 mmol/L (98-107); Creatinine, Serum 1.53 mg/dL (0.55-1.02); EST Glomerular Filtration Rate 35 mL/min (>60); Est Glom Filt Rate - Afr Amer 42 mL/min (>60); Glucose 85 mg/dL (74-106); Potassium 4.1 mmol/L (3.5-5.1); Sodium Level 137 mmol/L (136-145)
== END ==
LOC: OLS.WHLEAS 05:00
PROVIDERS: Visit Provider Family Medicine
DX: G20 Parkinson's disease (principal); E11.9 Type 2 diabetes mellitus without complications; G89.4 Chronic pain syndrome; I48.91 Unspecified atrial fibrillation; J45.909 Unspecified asthma, uncomplicated; N18.9 Chronic kidney disease, unspecified
CPT/HCPCS: 36415; 80048

== ENCOUNTER → 2019-01-22 05:00 | Outpatient (REF) | payer MEDICARE, MEDICAID, SELFPAY ==
[2019-01-22 08:41] LABS: Anion Gap 9 (5-15); BUN 37 mg/dL (7-18); BUN/Creat Ratio 18.4 RATIO (10-20); Calcium,Total 8.9 mg/dL (8.5-10.1); Chloride 103 mmol/L (98-107); Creatinine, Serum 2.01 mg/dL (0.55-1.02); EST Glomerular Filtration Rate 26 mL/min (>60); Est Glom Filt Rate - Afr Amer 31 mL/min (>60); Glucose 76 mg/dL (74-106); Potassium 4.8 mmol/L (3.5-5.1); Sodium Level 142 mmol/L (136-145)
== END ==
LOC: OLS.WHLEAS 05:00
PROVIDERS: Visit Provider Family Medicine
DX: G20 Parkinson's disease (principal); E11.9 Type 2 diabetes mellitus without complications; G89.4 Chronic pain syndrome; I12.9 Hypertensive chronic kidney disease with stage 1 through stage 4 chronic kidney disease, or unspecified chronic kidney disease; N18.9 Chronic kidney disease, unspecified; I48.91 Unspecified atrial fibrillation; J45.909 Unspecified asthma, uncomplicated
CPT/HCPCS: 36415; 80048

== ENCOUNTER → 2019-01-29 05:00 | Outpatient (REF) | payer MEDICARE, MEDICAID, SELFPAY ==
[2019-01-29 08:01] LABS: Anion Gap 8 (5-15); BUN 53 mg/dL (7-18); BUN/Creat Ratio 32.3 RATIO (10-20); Calcium,Total 8.7 mg/dL (8.5-10.1); Chloride 101 mmol/L (98-107); Creatinine, Serum 1.64 mg/dL (0.55-1.02); EST Glomerular Filtration Rate 32 mL/min (>60); Est Glom Filt Rate - Afr Amer 39 mL/min (>60); Glucose 131 mg/dL (74-106); Potassium 4.9 mmol/L (3.5-5.1); Sodium Level 137 mmol/L (136-145)
== END ==
LOC: OLS.WHLEAS 05:00
PROVIDERS: Visit Provider Family Medicine
DX: E11.22 Type 2 diabetes mellitus with diabetic chronic kidney disease (principal); N18.9 Chronic kidney disease, unspecified
CPT/HCPCS: 36415; 80048

== ENCOUNTER → 2019-02-05 | Outpatient (REF) | payer MEDICARE, MEDICAID, SELFPAY ==
[2019-02-05 08:28] LABS: Anion Gap 10 (5-15); BUN 58 mg/dL (7-18); BUN/Creat Ratio 31.2 RATIO (10-20); Calcium,Total 8.8 mg/dL (8.5-10.1); Chloride 107 mmol/L (98-107); Creatinine, Serum 1.86 mg/dL (0.55-1.02); EST Glomerular Filtration Rate 28 mL/min (>60); Est Glom Filt Rate - Afr Amer 34 mL/min (>60); Glucose 147 mg/dL (74-106); Potassium 4.9 mmol/L (3.5-5.1); Sodium Level 144 mmol/L (136-145)
== END | disposition home or self-care (01) ==
LOC: OLS.WHLEAS 05:00
PROVIDERS: Visit Provider Family Medicine
DX: I12.9 Hypertensive chronic kidney disease with stage 1 through stage 4 chronic kidney disease, or unspecified chronic kidney disease (principal); E11.22 Type 2 diabetes mellitus with diabetic chronic kidney disease; N18.9 Chronic kidney disease, unspecified
CPT/HCPCS: 36415; 80048

== ENCOUNTER → 2019-02-11 | Outpatient (REF) | payer MEDICARE, MEDICAID, SELFPAY ==
[2019-02-11 08:14] LABS: Anion Gap 9 (5-15); BUN 35 mg/dL (7-18); Calcium,Total 8.7 mg/dL (8.5-10.1); Chloride 100 mmol/L (98-107); Creatinine, Serum 1.52 mg/dL (0.55-1.02); EST Glomerular Filtration Rate 35 mL/min (>60); Est Glom Filt Rate - Afr Amer 43 mL/min (>60); Glucose 293 mg/dL (74-106); Potassium 4.3 mmol/L (3.5-5.1); Sodium Level 140 mmol/L (136-145)
[2019-02-11 08:22] LABS: Hemoglobin A1c 7.1 % (4.2-6.3)
== END | disposition home or self-care (01) ==
LOC: OLS.WHLEAS 05:00
PROVIDERS: Visit Provider Family Medicine
DX: I12.9 Hypertensive chronic kidney disease with stage 1 through stage 4 chronic kidney disease, or unspecified chronic kidney disease (principal); E11.22 Type 2 diabetes mellitus with diabetic chronic kidney disease; N18.9 Chronic kidney disease, unspecified
CPT/HCPCS: 36415; 80048; 83036

== ENCOUNTER → 2019-02-12 | Outpatient (REF) | payer MEDICARE, MEDICAID, SELFPAY ==
[2019-02-12 08:29] LABS: Anion Gap 8 (5-15); BUN 36 mg/dL (7-18); BUN/Creat Ratio 21.3 RATIO (10-20); Calcium,Total 9.3 mg/dL (8.5-10.1); Chloride 101 mmol/L (98-107); Creatinine, Serum 1.69 mg/dL (0.55-1.02); EST Glomerular Filtration Rate 31 mL/min (>60); Est Glom Filt Rate - Afr Amer 38 mL/min (>60); Glucose 132 mg/dL (74-106); Potassium 4.3 mmol/L (3.5-5.1); Sodium Level 142 mmol/L (136-145)
== END | disposition home or self-care (01) ==
LOC: OLS.WHLEAS 05:00
PROVIDERS: Visit Provider Family Medicine
DX: N18.9 Chronic kidney disease, unspecified (principal)
CPT/HCPCS: 36415; 80048

== ENCOUNTER → 2019-02-26 05:00 | Outpatient (REF) | payer MEDICARE, MEDICAID, SELFPAY ==
[2019-02-26 09:09] LABS: Anion Gap 6 (5-15); BUN 40 mg/dL (7-18); Calcium,Total 8.7 mg/dL (8.5-10.1); Chloride 103 mmol/L (98-107); Creatinine, Serum 1.82 mg/dL (0.55-1.02); EST Glomerular Filtration Rate 29 mL/min (>60); Est Glom Filt Rate - Afr Amer 35 mL/min (>60); Glucose 174 mg/dL (74-106); Potassium 4.8 mmol/L (3.5-5.1); Sodium Level 139 mmol/L (136-145)
== END ==
LOC: OLS.WHLEAS 05:00
PROVIDERS: Visit Provider Family Medicine
DX: N18.9 Chronic kidney disease, unspecified (principal)
CPT/HCPCS: 36415; 80048

== ENCOUNTER → 2019-03-05 05:00 | Outpatient (REF) | payer MEDICARE, MEDICAID, SELFPAY ==
[2019-03-05 07:59] LABS: Anion Gap 8 (5-15); BUN 33 mg/dL (7-18); BUN/Creat Ratio 22.1 RATIO (10-20); Calcium,Total 8.8 mg/dL (8.5-10.1); Chloride 99 mmol/L (98-107); Creatinine, Serum 1.49 mg/dL (0.55-1.02); EST Glomerular Filtration Rate 36 mL/min (>60); Est Glom Filt Rate - Afr Amer 44 mL/min (>60); Glucose 190 mg/dL (74-106); Potassium 4.7 mmol/L (3.5-5.1); Sodium Level 137 mmol/L (136-145)
== END ==
LOC: OLS.WHLEAS 05:00
PROVIDERS: Visit Provider Family Medicine
DX: N18.9 Chronic kidney disease, unspecified (principal); G20 Parkinson's disease; E11.9 Type 2 diabetes mellitus without complications; G89.4 Chronic pain syndrome; I10 Essential (primary) hypertension; I48.91 Unspecified atrial fibrillation; J45.909 Unspecified asthma, uncomplicated
CPT/HCPCS: 36415; 80048

== ENCOUNTER → 2019-03-12 05:00 | Outpatient (REF) | payer MEDICARE, MEDICAID, SELFPAY ==
[2019-03-12 08:32] LABS: Anion Gap 9 (5-15); BUN 31 mg/dL (7-18); BUN/Creat Ratio 19.5 RATIO (10-20); Calcium,Total 8.6 mg/dL (8.5-10.1); Chloride 101 mmol/L (98-107); Creatinine, Serum 1.59 mg/dL (0.55-1.02); EST Glomerular Filtration Rate 34 mL/min (>60); Est Glom Filt Rate - Afr Amer 41 mL/min (>60); Glucose 50 mg/dL (74-106); Potassium 4.1 mmol/L (3.5-5.1); Sodium Level 143 mmol/L (136-145)
== END ==
LOC: OLS.WHLEAS 05:00
PROVIDERS: Visit Provider Family Medicine
DX: G20 Parkinson's disease (principal); E11.9 Type 2 diabetes mellitus without complications; G89.4 Chronic pain syndrome; I12.9 Hypertensive chronic kidney disease with stage 1 through stage 4 chronic kidney disease, or unspecified chronic kidney disease; N18.9 Chronic kidney disease, unspecified; I48.91 Unspecified atrial fibrillation; J45.909 Unspecified asthma, uncomplicated
CPT/HCPCS: 36415; 80048

== ENCOUNTER → 2019-03-18 05:00 | Outpatient (REF) | payer MEDICARE, MEDICAID, SELFPAY ==
[2019-03-18 07:17] LABS: Anion Gap 4 (5-15); BUN 34 mg/dL (7-18); BUN/Creat Ratio 21.8 RATIO (10-20); Calcium,Total 9.1 mg/dL (8.5-10.1); Chloride 100 mmol/L (98-107); Creatinine, Serum 1.56 mg/dL (0.55-1.02); EST Glomerular Filtration Rate 34 mL/min (>60); Est Glom Filt Rate - Afr Amer 41 mL/min (>60); Glucose 255 mg/dL (74-106); Potassium 4.3 mmol/L (3.5-5.1); Sodium Level 138 mmol/L (136-145)
== END ==
LOC: OLS.WHLEAS 05:00
PROVIDERS: Visit Provider Family Medicine
DX: G20 Parkinson's disease (principal); E11.9 Type 2 diabetes mellitus without complications; G89.4 Chronic pain syndrome; I12.9 Hypertensive chronic kidney disease with stage 1 through stage 4 chronic kidney disease, or unspecified chronic kidney disease; N18.9 Chronic kidney disease, unspecified; I48.91 Unspecified atrial fibrillation; J45.909 Unspecified asthma, uncomplicated
CPT/HCPCS: 36415; 80048

== ENCOUNTER → 2019-03-20 05:00 | Outpatient (REF) | payer MEDICARE, MEDICAID, SELFPAY ==
[2019-03-20 07:57] LABS: Hemoglobin 8.6 g/dL (12.0-15.0); Mean Corp Hgb Conc 29.7 g/dL (32-36); Mean Corpuscular Hgb 25.9 pg (27.0-32.0); Mean Corpuscular Volume 87.3 fL (81-99); Mean Platelet Vol. 11.5 fl (6.2-12.0); Platelet Count 189 K/mm3 (150-450); RBC Distribution Width CV 14.6 % (11.6-14.6); RBC Distribution Width SD 46.4 fl (35.1-43.9); Red Blood Count 3.32 M/mm3 (4.2-5.4); White Blood Count 6.9 K/mm3 (4.4-11.0)
[2019-03-20 08:01] LABS: Albumin, Serum 2.9 g/dL (3.2-5.0); BUN 41 mg/dL (7-18); BUN/Creat Ratio 21.8 RATIO (10-20); Calcium,Total 8.6 mg/dL (8.5-10.1); Chloride 101 mmol/L (98-107); Creatinine, Serum 1.88 mg/dL (0.55-1.02); EST Glomerular Filtration Rate 28 mL/min (>60); Est Glom Filt Rate - Afr Amer 33 mL/min (>60); Glucose 264 mg/dL (74-106); Phosphorus 4.2 mg/dL (2.5-4.9); Potassium 4.5 mmol/L (3.5-5.1); Sodium Level 141 mmol/L (136-145)
[2019-03-20 08:27] LABS: Vitamin D,25 Hydroxy 21.2 ng/mL (29.95-100.01)
[2019-03-20 08:55] LABS: PTHIN 200.4 pg/mL (18.4-80.1)
[2019-03-20 12:13] LABS: Microalbumin,Random Urine 7.8 mg/L (NO RANGE EST.); Protein:Creat Ratio 107 mg/g CRE (0-200)
[2019-03-20 12:14] LABS: Color, Urine Yellow (Yellow); Glucose, Dipstick Normal (Normal); Ketone-Dipstick Negative (Negative); Leukocyte Esterase-Dipstick Negative /ul (Negative); Nitrite-Dipstick Negative (Negative); Occult Blood-Urine Negative /ul (Negative); Protein-Dipstick Negative (Negative); Urine Bilirubin Dipstick Negative (Negative); Urine Clarity Clear (Clear); Urine Urobilinogen Normal (Normal)
== END ==
LOC: OLS.WHLEAS 05:00
PROVIDERS: Visit Provider Family Medicine
DX: E11.9 Type 2 diabetes mellitus without complications (principal); G20 Parkinson's disease; G89.4 Chronic pain syndrome; I10 Essential (primary) hypertension; I48.91 Unspecified atrial fibrillation; J45.909 Unspecified asthma, uncomplicated; E55.9 Vitamin D deficiency, unspecified
CPT/HCPCS: 36415; 80069; 81002; 82043; 82306; 82570; 83970; 84156; 85027

== ENCOUNTER → 2019-03-26 05:00 | Outpatient (REF) | payer MEDICARE, MEDICAID, SELFPAY ==
[2019-03-26 08:46] LABS: Ammonia < 10.0 umol/L (11-32)
[2019-03-26 08:47] LABS: AST(SGOT) 27 U/L (15-37); Alanine Aminotransfer ALT/SGPT 31 U/L (13-56); Albumin, Serum 3.3 g/dL (3.2-5.0); Alkaline Phosphatase 109 U/L (45-117); Anion Gap 7 (5-15); BUN 34 mg/dL (7-18); BUN/Creat Ratio 21.2 RATIO (10-20); Bilirubin, Direct 0.12 mg/dL (0.00-0.30); Calcium,Total 9.1 mg/dL (8.5-10.1); Chloride 101 mmol/L (98-107); EST Glomerular Filtration Rate 33 mL/min (>60); Est Glom Filt Rate - Afr Amer 40 mL/min (>60); Globulin 4.2 g/dL (2.2-4.2); Glucose 196 mg/dL (74-106); Potassium 4.4 mmol/L (3.5-5.1); Protein, Total 7.5 g/dL (6.4-8.2); Sodium Level 138 mmol/L (136-145)
== END ==
LOC: OLS.WHLEAS 05:00
PROVIDERS: Visit Provider Family Medicine
DX: G20 Parkinson's disease (principal); G89.4 Chronic pain syndrome; E11.22 Type 2 diabetes mellitus with diabetic chronic kidney disease; I12.9 Hypertensive chronic kidney disease with stage 1 through stage 4 chronic kidney disease, or unspecified chronic kidney disease; N18.9 Chronic kidney disease, unspecified; E11.21 Type 2 diabetes mellitus with diabetic nephropathy; I83.009 Varicose veins of unspecified lower extremity with ulcer of unspecified site; I48.91 Unspecified atrial fibrillation; J45.909 Unspecified asthma, uncomplicated
CPT/HCPCS: 36415; 80048; 80076; 82140

== ENCOUNTER → 2019-04-03 05:00 | Outpatient (REF) | payer MEDICARE, MEDICAID, SELFPAY ==
[2019-04-03 07:47] LABS: Anion Gap 7 (5-15); BUN 45 mg/dL (7-18); BUN/Creat Ratio 26.8 RATIO (10-20); Chloride 99 mmol/L (98-107); Creatinine, Serum 1.68 mg/dL (0.55-1.02); EST Glomerular Filtration Rate 31 mL/min (>60); Est Glom Filt Rate - Afr Amer 38 mL/min (>60); Glucose 410 mg/dL (74-106); Potassium 4.4 mmol/L (3.5-5.1); Sodium Level 136 mmol/L (136-145)
== END ==
LOC: OLS.WHLEAS 05:00
PROVIDERS: Visit Provider Family Medicine
DX: G20 Parkinson's disease (principal); G89.4 Chronic pain syndrome; E11.22 Type 2 diabetes mellitus with diabetic chronic kidney disease; N18.9 Chronic kidney disease, unspecified; E11.21 Type 2 diabetes mellitus with diabetic nephropathy; I83.009 Varicose veins of unspecified lower extremity with ulcer of unspecified site
CPT/HCPCS: 36415; 80048

== ENCOUNTER → 2019-04-09 05:00 | Outpatient (REF) | payer MEDICARE, MEDICAID, SELFPAY ==
[2019-04-09 07:58] LABS: Anion Gap 7 (5-15); BUN 44 mg/dL (7-18); BUN/Creat Ratio 22.6 RATIO (10-20); Calcium,Total 8.7 mg/dL (8.5-10.1); Chloride 103 mmol/L (98-107); Creatinine, Serum 1.95 mg/dL (0.55-1.02); EST Glomerular Filtration Rate 27 mL/min (>60); Est Glom Filt Rate - Afr Amer 32 mL/min (>60); Glucose 219 mg/dL (74-106); Potassium 5.4 mmol/L (3.5-5.1); Sodium Level 140 mmol/L (136-145)
== END ==
LOC: OLS.WHLEAS 05:00
PROVIDERS: Visit Provider Family Medicine
DX: I12.9 Hypertensive chronic kidney disease with stage 1 through stage 4 chronic kidney disease, or unspecified chronic kidney disease (principal); N18.9 Chronic kidney disease, unspecified; G20 Parkinson's disease; E11.9 Type 2 diabetes mellitus without complications; G89.4 Chronic pain syndrome; I48.91 Unspecified atrial fibrillation; J45.909 Unspecified asthma, uncomplicated
CPT/HCPCS: 36415; 80048

== ENCOUNTER → 2019-04-15 05:00 | Outpatient (REF) | payer MEDICARE, MEDICAID, SELFPAY ==
[2019-04-15 06:53] LABS: Anion Gap 5 (5-15); BUN 34 mg/dL (7-18); BUN/Creat Ratio 17.9 RATIO (10-20); Calcium,Total 8.4 mg/dL (8.5-10.1); Chloride 101 mmol/L (98-107); EST Glomerular Filtration Rate 27 mL/min (>60); Est Glom Filt Rate - Afr Amer 33 mL/min (>60); Glucose 346 mg/dL (74-106); Potassium 4.8 mmol/L (3.5-5.1); Sodium Level 137 mmol/L (136-145)
== END ==
LOC: OLS.WHLEAS 05:00
PROVIDERS: Visit Provider Family Medicine
DX: G20 Parkinson's disease (principal); E11.9 Type 2 diabetes mellitus without complications; G89.4 Chronic pain syndrome; I12.9 Hypertensive chronic kidney disease with stage 1 through stage 4 chronic kidney disease, or unspecified chronic kidney disease; N18.9 Chronic kidney disease, unspecified; I48.91 Unspecified atrial fibrillation; J45.909 Unspecified asthma, uncomplicated
CPT/HCPCS: 36415; 80048

== ENCOUNTER → 2019-04-23 05:00 | Outpatient (REF) | payer MEDICARE, MEDICAID, SELFPAY ==
[2019-04-23 09:12] LABS: Anion Gap 4 (5-15); BUN 41 mg/dL (7-18); BUN/Creat Ratio 18.8 RATIO (10-20); Calcium,Total 8.3 mg/dL (8.5-10.1); Chloride 105 mmol/L (98-107); Creatinine, Serum 2.18 mg/dL (0.55-1.02); EST Glomerular Filtration Rate 23 mL/min (>60); Est Glom Filt Rate - Afr Amer 28 mL/min (>60); Glucose 131 mg/dL (74-106); Potassium 4.8 mmol/L (3.5-5.1); Sodium Level 142 mmol/L (136-145)
== END ==
LOC: OLS.WHLEAS 05:00
PROVIDERS: Family Provider Family Medicine; PCP Family Medicine; Visit Provider Family Medicine
DX: E11.22 Type 2 diabetes mellitus with diabetic chronic kidney disease (principal); N18.9 Chronic kidney disease, unspecified; G20 Parkinson's disease; G89.4 Chronic pain syndrome; E11.21 Type 2 diabetes mellitus with diabetic nephropathy; I83.009 Varicose veins of unspecified lower extremity with ulcer of unspecified site
CPT/HCPCS: 36415; 80048

== ENCOUNTER → 2019-05-01 05:00 | Outpatient (REF) | payer MEDICARE, MEDICAID, SELFPAY ==
[2019-05-01 08:06] LABS: Anion Gap 6 (5-15); BUN 48 mg/dL (7-18); BUN/Creat Ratio 24.5 RATIO (10-20); Calcium,Total 8.3 mg/dL (8.5-10.1); Chloride 102 mmol/L (98-107); Creatinine, Serum 1.96 mg/dL (0.55-1.02); EST Glomerular Filtration Rate 26 mL/min (>60); Est Glom Filt Rate - Afr Amer 32 mL/min (>60); Glucose 154 mg/dL (74-106); Potassium 4.4 mmol/L (3.5-5.1); Sodium Level 141 mmol/L (136-145)
== END ==
LOC: OLS.WHLEAS 05:00
PROVIDERS: Family Provider Family Medicine; PCP Family Medicine; Visit Provider Family Medicine
DX: G20 Parkinson's disease (principal); E11.22 Type 2 diabetes mellitus with diabetic chronic kidney disease; N18.9 Chronic kidney disease, unspecified; E11.21 Type 2 diabetes mellitus with diabetic nephropathy; I83.009 Varicose veins of unspecified lower extremity with ulcer of unspecified site
CPT/HCPCS: 36415; 80048

== ENCOUNTER → 2019-05-07 05:00 | Outpatient (REF) | payer MEDICARE, MEDICAID, SELFPAY ==
[2019-05-07 07:13] LABS: Anion Gap 4 (5-15); BUN 33 mg/dL (7-18); BUN/Creat Ratio 12.9 RATIO (10-20); Chloride 101 mmol/L (98-107); Creatinine, Serum 2.56 mg/dL (0.55-1.02); EST Glomerular Filtration Rate 19 mL/min (>60); Est Glom Filt Rate - Afr Amer 23 mL/min (>60); Glucose 223 mg/dL (74-106); Potassium 4.9 mmol/L (3.5-5.1); Sodium Level 137 mmol/L (136-145)
== END ==
LOC: OLS.WHLEAS 05:00
PROVIDERS: Family Provider Family Medicine; PCP Family Medicine; Visit Provider Family Medicine
DX: G20 Parkinson's disease (principal); G89.4 Chronic pain syndrome; E11.22 Type 2 diabetes mellitus with diabetic chronic kidney disease; N18.9 Chronic kidney disease, unspecified; E11.21 Type 2 diabetes mellitus with diabetic nephropathy; I83.009 Varicose veins of unspecified lower extremity with ulcer of unspecified site
CPT/HCPCS: 36415; 80048

== ENCOUNTER → 2019-05-13 05:00 | Outpatient (REF) | payer MEDICARE, MEDICAID, SELFPAY ==
[2019-05-13 07:51] LABS: Hematocrit 29.3 % (37-47); Hemoglobin 8.7 g/dL (12.0-15.0); Mean Corp Hgb Conc 29.7 g/dL (32-36); Mean Corpuscular Hgb 25.5 pg (27.0-32.0); Mean Corpuscular Volume 85.9 fL (81-99); Platelet Count 187 K/mm3 (150-450); RBC Distribution Width CV 16.2 % (11.6-14.6); RBC Distribution Width SD 50.4 fl (35.1-43.9); Red Blood Count 3.41 M/mm3 (4.2-5.4); White Blood Count 5.3 K/mm3 (4.4-11.0)
[2019-05-13 08:12] LABS: ALB/GLOB Ratio 0.7 RATIO (0.9-2.4); AST(SGOT) 21 U/L (15-37); Alanine Aminotransfer ALT/SGPT 22 U/L (13-56); Albumin, Serum 2.8 g/dL (3.2-5.0); Alkaline Phosphatase 99 U/L (45-117); Anion Gap 6 (5-15); BUN 43 mg/dL (7-18); BUN/Creat Ratio 22.6 RATIO (10-20); Calcium,Total 8.6 mg/dL (8.5-10.1); Chloride 105 mmol/L (98-107); Cholesterol 108 mg/dL (200); EST Glomerular Filtration Rate 27 mL/min (>60); Est Glom Filt Rate - Afr Amer 33 mL/min (>60); Globulin 3.9 g/dL (2.2-4.2); Glucose 217 mg/dL (74-106); High Density Lipoprotein 48 mg/dL; Potassium 5.1 mmol/L (3.5-5.1); Protein, Total 6.7 g/dL (6.4-8.2); Sodium Level 142 mmol/L (136-145); Triglycerides 75 mg/dL; Very Low Density Lipoprotein 15 mg/dL (5-40)
[2019-05-13 08:51] LABS: Hemoglobin A1c 8.7 % (4.2-6.3)
== END ==
LOC: OLS.WHLEAS 05:00
PROVIDERS: Family Provider Family Medicine; PCP Family Medicine; Visit Provider Family Medicine
DX: I12.9 Hypertensive chronic kidney disease with stage 1 through stage 4 chronic kidney disease, or unspecified chronic kidney disease (principal); E11.22 Type 2 diabetes mellitus with diabetic chronic kidney disease; N18.9 Chronic kidney disease, unspecified; G20 Parkinson's disease; G89.4 Chronic pain syndrome; E11.21 Type 2 diabetes mellitus with diabetic nephropathy; I48.91 Unspecified atrial fibrillation; J45.909 Unspecified asthma, uncomplicated
CPT/HCPCS: 36415; 80053; 80061; 83036; 85027

== ENCOUNTER → 2019-06-17 05:30 | Outpatient (REF) | payer MEDICARE, MEDICAID, SELFPAY ==
[2019-06-17 06:39] LABS: Hematocrit 28.2 % (37-47); Hemoglobin 8.4 g/dL (12.0-15.0); Mean Corp Hgb Conc 29.8 g/dL (32-36); Mean Corpuscular Hgb 25.8 pg (27.0-32.0); Mean Corpuscular Volume 86.8 fL (81-99); Mean Platelet Vol. 11.2 fl (6.2-12.0); Platelet Count 150 K/mm3 (150-450); RBC Distribution Width CV 18.8 % (11.6-14.6); RBC Distribution Width SD 59.6 fl (35.1-43.9); Red Blood Count 3.25 M/mm3 (4.2-5.4); White Blood Count 4.3 K/mm3 (4.4-11.0)
[2019-06-17 07:02] LABS: Anion Gap 1 (5-15); BUN 38 mg/dL (7-18); BUN/Creat Ratio 18.4 RATIO (10-20); Calcium,Total 8.8 mg/dL (8.5-10.1); Chloride 103 mmol/L (98-107); Creatinine, Serum 2.06 mg/dL (0.55-1.02); EST Glomerular Filtration Rate 25 mL/min (>60); Est Glom Filt Rate - Afr Amer 30 mL/min (>60); Glucose 296 mg/dL (74-106); Potassium 6.3 mmol/L (3.5-5.1); Sodium Level 138 mmol/L (136-145)
== END ==
LOC: OLS.WHLEAS 05:30
PROVIDERS: PCP Family Medicine; Visit Provider Family Medicine
DX: G20 Parkinson's disease (principal); G89.4 Chronic pain syndrome; E11.22 Type 2 diabetes mellitus with diabetic chronic kidney disease; N18.9 Chronic kidney disease, unspecified; E11.21 Type 2 diabetes mellitus with diabetic nephropathy
CPT/HCPCS: 36415; 80048; 85027

== ENCOUNTER → 2019-06-22 04:00 | Outpatient (REF) | payer MEDICARE, MEDICAID, SELFPAY ==
[2019-06-22 10:14] LABS: Anion Gap 6 (5-15); BUN 49 mg/dL (7-18); BUN/Creat Ratio 19.5 RATIO (10-20); Calcium,Total 8.4 mg/dL (8.5-10.1); Chloride 103 mmol/L (98-107); Creatinine, Serum 2.51 mg/dL (0.55-1.02); EST Glomerular Filtration Rate 20 mL/min (>60); Est Glom Filt Rate - Afr Amer 24 mL/min (>60); Glucose 235 mg/dL (74-106); Potassium 4.7 mmol/L (3.5-5.1); Sodium Level 140 mmol/L (136-145)
== END ==
LOC: OLS.WHLEAS 04:00
PROVIDERS: PCP Family Medicine; Visit Provider Family Medicine
DX: G20 Parkinson's disease (principal); G89.4 Chronic pain syndrome; E11.22 Type 2 diabetes mellitus with diabetic chronic kidney disease; N18.9 Chronic kidney disease, unspecified; E11.21 Type 2 diabetes mellitus with diabetic nephropathy; I83.009 Varicose veins of unspecified lower extremity with ulcer of unspecified site
CPT/HCPCS: 36415; 80048

== ENCOUNTER → 2019-07-02 12:55 | Outpatient (CLI) | payer MEDICARE, MEDICAID, SELFPAY ==
--- NOTE | 2019-07-02 13:02 | ECHOCS_ITS ---
Reason For Study: A. fib Procedure This was a 2D Doppler, Color Flow transthoracic echocardiogram. The study was technically difficult. Exam performed in department. Left Ventricle Normal LV size. The estimated ejection fraction is 65 %. Unable to assess diastolic dysfunction. No regional wall motion abnormalities noted. Right Ventricle Normal RV size. Normal systolic function. Atria The left atrium is mildly enlarged. The right atrium is mildly enlarged. No doppler evidence for ASD. Mitral Valve There is moderate mitral annular calcification. There is no mitral valve stenosis. Trivial mitral valve insufficiency. Tricuspid Valve There is no tricuspid stenosis. Trivial tricuspid valve insufficiency. Unable to estimate RV systolic pressure due to insufficient tricuspid regurgitant envelope. Aortic Valve Aortic sclerosis, no stenosis. There is no aortic stenosis. No aortic valve insufficiency. Pulmonic Valve There is no pulmonic valvular stenosis. No pulmonic valve insufficiency. Great Vessels Normal aortic root. Pericardium/Pleural No pericardial effusion. Medication 22 gauge I.V. with prn adaptor inserted into left arm. Diluted definity 1ml given slow IV push to enhance endocardial definition. Negative bubble study on previous echo 04/19. MMode/2D Measurements & Calculations LVIDd: 4.5 cm IVSd: 1.1 cm LVOT diam: 1.9 cm LVIDs: 2.1 cm LVPWd: 1.1 cm RVDd: 3.0 cm FS: 52.9 % LVOT area: 2.8 cm2 Ao root diam: 3.6 cm LAV(MOD-bp): 80.0 ml LA A4 area: 24.5 cm2 LAV(MOD-bp) Indexed: 40.8 ml/m2 LAV(MOD-sp2): 76.4 ml LAV(MOD-sp4): 78.9 ml LA dimension(2D): 3.9 cm RA A4 area: 15.5 cm2 Doppler Measurements & Calculations MV E max gaurang: 125.1 cm/sec Lat Peak E' Gaurang: 7.2 cm/sec Med Peak E' Gaurang: 5.0 cm/sec MV A max gaurang: 140.8 cm/sec E/E' lat: 17.4 E/E' med: 25.1 MV E/A: 0.89 MV V2 max: 154.9 cm/sec MV P1/2t max gaurang: 141.1 cm/sec Ao V2 max: 187.5 cm/sec MV max P.6 mmHg MV P1/2t: 75.2 msec Ao max P.1 mmHg MV V2 mean: 103.9 cm/sec MV dec slope: 549.1 cm/sec2 Ao V2 mean: 124.8 cm/sec MV mean P.7 mmHg Ao mean P.0 mmHg MV V2 VTI: 39.2 cm MVA(P1/2t): 2.9 cm2 Ao V2 VTI: 37.7 cm MVA(VTI): 2.2 cm2 HILL(I,D): 2.3 cm2 HILL(V,D): 2.3 cm2 LV V1 max: 151.3 cm/sec SV(LVOT): 86.2 ml PA V2 max: 120.2 cm/sec LV V1 max P.2 mmHg LV V1 mean P.4 mmHg LV V1 mean: 96.9 cm/sec LV V1 VTI: 30.6 cm Interpretation Summary The estimated ejection fraction is 65 %. Unable to assess diastolic dysfunction. Trivial mitral valve insufficiency. There is moderate mitral annular calcification. The study was technically difficult. Contrast injection was performed. Ordering Physician: Paul London Referring Physician: Paul London Performed By: Diamond Ohara RDCS
== END ==
PROVIDERS: PCP Family Medicine; Referring Provider Internal Medicine Nephrology; Visit Provider Internal Medicine Nephrology
DX: I48.20 Chronic atrial fibrillation, unspecified (principal)
CPT/HCPCS: 93306; Q9957; A4216; C8929

== ENCOUNTER → 2019-07-15 05:00 | Outpatient (REF) | payer MEDICARE, MEDICAID, SELFPAY ==
[2019-07-15 07:21] LABS: Hematocrit 30.5 % (37-47); Hemoglobin 9.2 g/dL (12.0-15.0); Mean Corp Hgb Conc 30.2 g/dL (32-36); Mean Corpuscular Hgb 26.5 pg (27.0-32.0); Mean Corpuscular Volume 87.9 fL (81-99); Mean Platelet Vol. 10.8 fl (6.2-12.0); Platelet Count 197 K/mm3 (150-450); RBC Distribution Width SD 54.4 fl (35.1-43.9); Red Blood Count 3.47 M/mm3 (4.2-5.4); White Blood Count 5.9 K/mm3 (4.4-11.0)
[2019-07-15 07:36] LABS: Anion Gap 5 (5-15); BUN 22 mg/dL (7-18); Calcium,Total 8.5 mg/dL (8.5-10.1); Chloride 102 mmol/L (98-107); Creatinine, Serum 1.47 mg/dL (0.55-1.02); EST Glomerular Filtration Rate 37 mL/min (>60); Est Glom Filt Rate - Afr Amer 44 mL/min (>60); Glucose 251 mg/dL (74-106); Potassium 3.9 mmol/L (3.5-5.1); Sodium Level 139 mmol/L (136-145)
== END ==
LOC: OLS.WHLEAS 05:00
PROVIDERS: PCP Family Medicine; Visit Provider Family Medicine
DX: G20 Parkinson's disease (principal); E11.22 Type 2 diabetes mellitus with diabetic chronic kidney disease; N18.9 Chronic kidney disease, unspecified; E11.21 Type 2 diabetes mellitus with diabetic nephropathy; I83.009 Varicose veins of unspecified lower extremity with ulcer of unspecified site
CPT/HCPCS: 36415; 80048; 85027

== ENCOUNTER → 2019-08-12 05:00 | Outpatient (REF) | payer MEDICARE, MEDICAID, SELFPAY ==
[2019-08-12 07:10] LABS: Hematocrit 30.8 % (37-47); Hemoglobin 9.5 g/dL (12.0-15.0); Mean Corp Hgb Conc 30.8 g/dL (32-36); Mean Corpuscular Hgb 26.3 pg (27.0-32.0); Mean Corpuscular Volume 85.3 fL (81-99); Mean Platelet Vol. 11.4 fl (6.2-12.0); Platelet Count 190 K/mm3 (150-450); RBC Distribution Width CV 14.8 % (11.6-14.6); RBC Distribution Width SD 45.7 fl (35.1-43.9); Red Blood Count 3.61 M/mm3 (4.2-5.4); White Blood Count 7.2 K/mm3 (4.4-11.0)
[2019-08-12 07:27] LABS: Albumin, Serum 2.9 g/dL (3.2-5.0); BUN 28 mg/dL (7-18); BUN/Creat Ratio 18.3 RATIO (10-20); Calcium,Total 8.6 mg/dL (8.5-10.1); Chloride 99 mmol/L (98-107); Creatinine, Serum 1.53 mg/dL (0.55-1.02); EST Glomerular Filtration Rate 35 mL/min (>60); Est Glom Filt Rate - Afr Amer 42 mL/min (>60); Glucose 235 mg/dL (74-106); Phosphorus 3.4 mg/dL (2.5-4.9); Potassium 3.5 mmol/L (3.5-5.1); Sodium Level 138 mmol/L (136-145)
[2019-08-12 07:35] LABS: Color, Urine Straw (Yellow); Glucose, Dipstick Normal (Normal); Ketone-Dipstick Negative (Negative); Leukocyte Esterase-Dipstick Negative /ul (Negative); Nitrite-Dipstick Negative (Negative); Occult Blood-Urine Negative /ul (Negative); Protein-Dipstick Negative (Negative); Urine Bilirubin Dipstick Negative (Negative); Urine Clarity Clear (Clear); Urine Urobilinogen Normal (Normal)
[2019-08-12 08:22] LABS: Vitamin D,25 Hydroxy 15.3 ng/mL
[2019-08-12 09:03] LABS: Hemoglobin A1c 7.5 % (4.2-6.3)
[2019-08-12 09:04] LABS: PTHIN 308.1 pg/mL (18.4-80.1)
[2019-08-12 20:45] LABS: Microalbumin,Random Urine < 5.0 mg/L (NO RANGE EST.); Protein, Urine (Random) < 6.0 mg/dL (<11.9); Protein:Creat Ratio 222 mg/g CRE (0-200)
== END ==
LOC: OLS.WHLEAS 05:00
PROVIDERS: PCP Family Medicine; Referring Provider Family Medicine; Visit Provider Family Medicine
DX: G20 Parkinson's disease (principal); G89.4 Chronic pain syndrome; I48.91 Unspecified atrial fibrillation; J45.909 Unspecified asthma, uncomplicated; E11.22 Type 2 diabetes mellitus with diabetic chronic kidney disease; I12.9 Hypertensive chronic kidney disease with stage 1 through stage 4 chronic kidney disease, or unspecified chronic kidney disease; N18.9 Chronic kidney disease, unspecified; E11.21 Type 2 diabetes mellitus with diabetic nephropathy; I83.009 Varicose veins of unspecified lower extremity with ulcer of unspecified site; E55.9 Vitamin D deficiency, unspecified
CPT/HCPCS: 36415; 80069; 81002; 82043; 82306; 82570; 83036; 83970; 84156; 85027

== ENCOUNTER → 2019-09-16 05:30 | Outpatient (REF) | payer MEDICARE, MEDICAID, SELFPAY ==
[2019-09-16 07:13] LABS: Hemoglobin 9.7 g/dL (12.0-15.0); Mean Corp Hgb Conc 29.4 g/dL (32-36); Mean Corpuscular Hgb 26.3 pg (27.0-32.0); Mean Corpuscular Volume 89.4 fL (81-99); Mean Platelet Vol. 11.7 fl (6.2-12.0); Platelet Count 165 K/mm3 (150-450); RBC Distribution Width CV 15.4 % (11.6-14.6); RBC Distribution Width SD 50.4 fl (35.1-43.9); Red Blood Count 3.69 M/mm3 (4.2-5.4); White Blood Count 5.7 K/mm3 (4.4-11.0)
[2019-09-16 07:21] LABS: Anion Gap 6 (5-15); BUN 47 mg/dL (7-18); Calcium,Total 8.8 mg/dL (8.5-10.1); Chloride 104 mmol/L (98-107); Creatinine, Serum 1.81 mg/dL (0.55-1.02); EST Glomerular Filtration Rate 29 mL/min (>60); Est Glom Filt Rate - Afr Amer 35 mL/min (>60); Glucose 238 mg/dL (74-106); Potassium 4.5 mmol/L (3.5-5.1); Sodium Level 142 mmol/L (136-145)
== END ==
LOC: OLS.WHLEAS 05:30
PROVIDERS: PCP Family Medicine; Visit Provider Family Medicine
DX: E11.22 Type 2 diabetes mellitus with diabetic chronic kidney disease (principal); N18.9 Chronic kidney disease, unspecified; G20 Parkinson's disease; G89.4 Chronic pain syndrome; E11.21 Type 2 diabetes mellitus with diabetic nephropathy; I83.009 Varicose veins of unspecified lower extremity with ulcer of unspecified site
CPT/HCPCS: 36415; 80048; 85027

== ENCOUNTER → 2019-10-14 05:00 | Outpatient (REF) | payer MEDICARE, MEDICAID, SELFPAY ==
[2019-10-14 08:27] LABS: Hematocrit 37.6 % (37-47); Hemoglobin 11.4 g/dL (12.0-15.0); Mean Corp Hgb Conc 30.3 g/dL (32-36); Mean Corpuscular Hgb 26.8 pg (27.0-32.0); Mean Corpuscular Volume 88.5 fL (81-99); Mean Platelet Vol. 11.4 fl (6.2-12.0); Platelet Count 234 K/mm3 (150-450); RBC Distribution Width CV 16.2 % (11.6-14.6); RBC Distribution Width SD 52.8 fl (35.1-43.9); Red Blood Count 4.25 M/mm3 (4.2-5.4); White Blood Count 8.8 K/mm3 (4.4-11.0)
[2019-10-14 08:36] LABS: Color, Urine Yellow (Yellow); Glucose, Dipstick 50 mg/dl (Normal); Ketone-Dipstick Negative (Negative); Leukocyte Esterase-Dipstick Negative /ul (Negative); Nitrite-Dipstick Negative (Negative); Occult Blood-Urine Negative /ul (Negative); Protein-Dipstick Negative (Negative); Urine Bilirubin Dipstick Negative (Negative); Urine Clarity Clear (Clear); Urine Urobilinogen Normal (Normal)
[2019-10-14 08:41] LABS: Albumin, Serum 3.6 g/dL (3.2-5.0); BUN 63 mg/dL (7-18); BUN/Creat Ratio 32.5 RATIO (10-20); Chloride 94 mmol/L (98-107); Creatinine, Serum 1.94 mg/dL (0.55-1.02); EST Glomerular Filtration Rate 27 mL/min (>60); Est Glom Filt Rate - Afr Amer 32 mL/min (>60); Glucose 175 mg/dL (74-106); Phosphorus 4.9 mg/dL (2.5-4.9); Potassium 3.7 mmol/L (3.5-5.1); Sodium Level 136 mmol/L (136-145)
[2019-10-14 08:51] LABS: Microalbumin,Random Urine 10.9 mg/L (NO RANGE EST.); Protein, Urine (Random) 9.1 mg/dL (<11.9); Protein:Creat Ratio 142 mg/g CRE (0-200)
[2019-10-14 09:16] LABS: PTHIN 490.2 pg/mL (18.4-80.1)
== END ==
LOC: OLS.WHLEAS 05:00
PROVIDERS: PCP Family Medicine; Visit Provider Family Medicine
DX: E11.22 Type 2 diabetes mellitus with diabetic chronic kidney disease (principal); N18.9 Chronic kidney disease, unspecified; G20 Parkinson's disease; G89.4 Chronic pain syndrome; E11.21 Type 2 diabetes mellitus with diabetic nephropathy; I83.009 Varicose veins of unspecified lower extremity with ulcer of unspecified site; E55.9 Vitamin D deficiency, unspecified
CPT/HCPCS: 36415; 80069; 81002; 82043; 82306; 82570; 83970; 84156; 85027

== ENCOUNTER → 2019-11-11 06:35 | Outpatient (REF) | payer MEDICARE, MEDICAID, SELFPAY ==
[2019-11-11 08:00] LABS: Hematocrit 31.4 % (37-47); Hemoglobin 9.2 g/dL (12.0-15.0); Mean Corp Hgb Conc 29.3 g/dL (32-36); Mean Corpuscular Hgb 27.2 pg (27.0-32.0); Mean Corpuscular Volume 92.9 fL (81-99); Platelet Count 154 K/mm3 (150-450); RBC Distribution Width CV 17.7 % (11.6-14.6); RBC Distribution Width SD 60.7 fl (35.1-43.9); Red Blood Count 3.38 M/mm3 (4.2-5.4)
[2019-11-11 08:09] LABS: ALB/GLOB Ratio 0.8 RATIO (0.9-2.4); AST(SGOT) 15 U/L (15-37); Alanine Aminotransfer ALT/SGPT 17 U/L (13-56); Alkaline Phosphatase 105 U/L (45-117); Anion Gap 6 (5-15); BUN 72 mg/dL (7-18); BUN/Creat Ratio 30.3 RATIO (10-20); Calcium,Total 8.5 mg/dL (8.5-10.1); Chloride 108 mmol/L (98-107); Cholesterol 89 mg/dL (200); Creatinine, Serum 2.38 mg/dL (0.55-1.02); EST Glomerular Filtration Rate 21 mL/min (>60); Est Glom Filt Rate - Afr Amer 25 mL/min (>60); Globulin 3.8 g/dL (2.2-4.2); Glucose 138 mg/dL (74-106); High Density Lipoprotein 34 mg/dL; Potassium 5.1 mmol/L (3.5-5.1); Protein, Total 6.8 g/dL (6.4-8.2); Sodium Level 142 mmol/L (136-145); Triglycerides 97 mg/dL; Very Low Density Lipoprotein 19 mg/dL (5-40)
[2019-11-11 08:30] LABS: Hemoglobin A1c 7.5 % (3.8-5.6)
== END ==
LOC: OLS.WHLEAS 06:35
PROVIDERS: PCP Family Medicine; Visit Provider Family Medicine
DX: I12.9 Hypertensive chronic kidney disease with stage 1 through stage 4 chronic kidney disease, or unspecified chronic kidney disease (principal); G20 Parkinson's disease; G89.4 Chronic pain syndrome; E11.22 Type 2 diabetes mellitus with diabetic chronic kidney disease; N18.9 Chronic kidney disease, unspecified; E11.21 Type 2 diabetes mellitus with diabetic nephropathy; I48.91 Unspecified atrial fibrillation; J45.909 Unspecified asthma, uncomplicated
CPT/HCPCS: 36415; 80053; 80061; 83036; 85027

== ENCOUNTER → 2019-12-16 05:00 | Outpatient (REF) | payer MEDICARE, MEDICAID, SELFPAY ==
[2019-12-16 07:08] LABS: Hematocrit 31.3 % (37-47); Hemoglobin 9.1 g/dL (12.0-15.0); Mean Corp Hgb Conc 29.1 g/dL (32-36); Mean Corpuscular Hgb 28.2 pg (27.0-32.0); Mean Corpuscular Volume 96.9 fL (81-99); Mean Platelet Vol. 11.6 fl (6.2-12.0); Platelet Count 183 K/mm3 (150-450); RBC Distribution Width CV 15.4 % (11.6-14.6); RBC Distribution Width SD 55.5 fl (35.1-43.9); Red Blood Count 3.23 M/mm3 (4.2-5.4); White Blood Count 5.9 K/mm3 (4.4-11.0)
[2019-12-16 07:58] LABS: Anion Gap 5 (5-15); BUN 70 mg/dL (7-18); BUN/Creat Ratio 12.4 RATIO (10-20); Calcium,Total 8.7 mg/dL (8.5-10.1); Chloride 103 mmol/L (98-107); Creatinine, Serum 5.65 mg/dL (0.55-1.02); EST Glomerular Filtration Rate 8 mL/min (>60); Est Glom Filt Rate - Afr Amer 9 mL/min (>60); Glucose 144 mg/dL (74-106); Sodium Level 137 mmol/L (136-145)
[2019-12-16 18:49] VITALS: BMI 34.7
== END ==
LOC: OLS.WHLEAS 05:00
PROVIDERS: PCP Family Medicine; Referring Provider Family Medicine; Visit Provider Family Medicine
DX: N18.9 Chronic kidney disease, unspecified (principal)
CPT/HCPCS: 36415; 80048; 85027

== ENCOUNTER 2019-12-16 15:27 | Inpatient (IN) | payer MEDICARE, MEDICAID, SELFPAY ==
[2019-12-16] VITALS (8 sets, daily range): BP systolic 100–142; BP diastolic 41–114; PULSE 66–95; RESP 16–20; TEMP 36.8–36.9; O2SAT 93–98; BMI 36.8; BMI 34.7
--- NOTE | 2019-12-16 16:13 | EKG12_ITS ---
Test Reason : ABN LABS Blood Pressure : / mmHG Vent. Rate : 071 BPM Atrial Rate : 071 BPM P-R Int : 168 ms QRS Dur : 086 ms QT Int : 382 ms P-R-T Axes : 047 -39 024 degrees QTc Int : 415 ms Sinus rhythm with Premature supraventricular complexes and Premature ventricular complexes or Fusion complexes Left axis deviation Abnormal ECG Confirmed by JOANNA NATION ([id number]), fashion editor CHRISTIE CARDOZA ([id number]) on 12/21/2019 2:17:09 PM Referred By: ROSS Confirmed By:JOANNA NATION
--- NOTE | 2019-12-16 16:24 | ED.VIS.GEN ---
History of Present Illness Chief Complaint: Abn Labs Informant: Patient, Family Narrative: Patient is a 79-year-old female who is coming to the emergency department from a retirement for abnormal outpatient lab testing. She does have a history of chronic kidney disease. This has been getting worse. She had lab work drawn today which showed her potassium to be 6.0. Her creatinine was 5.65 as well. Patient had dialysis discussions before in the past and she adamantly does not want to go on dialysis. It that she has friends that have been on it and she does not want to go through that. She is currently undergoing palliative care. She is not on hospice care. She currently denies any symptoms whatsoever. Denies any chest pain, shortness of breath or heart palpitations. Denies any abdominal pain or nausea/vomiting. She still does make urine. She denies any diarrhea recently. She does have chronic lower leg swelling which seem to be improving lately. She denies any recent illness including any fever/chills. Past Medical History - Allergies and Home Meds Allergies/Adverse Reactions: Allergies sulfamethoxazole [From Bactrim] Allergy (Verified 11/24/17 23:04) Rash trimethoprim [From Bactrim] Allergy (Verified 11/24/17 23:04) Rash carbidopa [From Sinemet] Adverse Reaction (Verified 11/24/17 23:04) Nausea hydrocodone bitartrate [From Vicodin] Adverse Reaction (Verified 11/24/17 23:04) Nausea ketoprofen [From Orudis] Adverse Reaction (Verified 11/24/17 23:04) Unknown levodopa [From Sinemet] Adverse Reaction (Verified 11/24/17 23:04) Nausea lorazepam [From Ativan] Adverse Reaction (Verified 11/24/17 23:04) hallucination metformin HCl [From Glucophage] Adverse Reaction (Verified 11/24/17 23:04) Nausea naloxone Adverse Reaction (Verified 11/24/17 23:04) Nausea NSAIDS (Non-Steroidal Anti-Inflamma Adverse Reaction (Verified 12/16/19 15:31) PT UNSURE OF REACTION oxaprozin [From Daypro] Adverse Reaction (Verified 11/24/17 23:04) Nausea oxycodone HCl [From Percocet] Adverse Reaction (Verified 11/24/17 23:04) Nausea propoxyphene HCl [From Darvon] Adverse Reaction (Verified 11/24/17 23:04) Nausea rofecoxib [From Vioxx] Adverse Reaction (Verified 11/24/17 23:04) Nausea rosiglitazone maleate [From Avandia] Adverse Reaction (Verified 11/24/17 23:04) Nausea sertraline HCl [From Zoloft] Adverse Reaction (Verified 11/24/17 23:04) haullucination simvastatin [From Zocor] Adverse Reaction (Verified 11/24/17 23:04) Nausea venlafaxine HCl [From Effexor] Adverse Reaction (Verified 11/24/17 23:04) Nausea Prior records reviewed: Yes Past Medical History: - - Diabetes, hypertension, hyperlipidemia, CKD, asthma, GERD Smoking Status: Unknown if ever smoked - Family History Maternal Family History: Family History (Last Updated 09/26/17 @ 15:32 by Selena Ortiz) Unknown Asthma Osteoporosis Skin cancer CVA (cerebral vascular accident) Arthritis Cancer Diabetes Heart disease Hypertension High cholesterol Kidney stones Liver disease Family History: Reports: Heart Disease, Stroke Paternal Family History: Family History (Last Updated 09/26/17 @ 15:32 by Selena Ortiz) Unknown Asthma Osteoporosis Skin cancer CVA (cerebral vascular accident) Arthritis Cancer Diabetes Heart disease Hypertension High cholesterol Kidney stones Liver disease Family History: Reports: Heart Disease Review of Systems All systems negative except as indicated General: Denies: Chills, Fever, Sweats Eyes: Denies: Visual changes - bilaterally, Diplopia ENT: Denies: Rhinorrhea, Sore throat Cardiovascular: Denies: Chest pain, Palpitations Respiratory: Denies: Dyspnea, Cough, Dyspnea on exertion Gastrointestinal: Denies: Abdominal pain, Nausea, Vomiting, Diarrhea Genitourinary: Denies: Dysuria, Hematuria, Frequency Musculoskeletal: Reports: Swelling. Denies: Back pain, Extremity Pain Skin: Denies: Rash, Wounds Neurological: Denies: Headache, Weakness, Numbness Physical Exam Vital Signs/Narrative: Vital Signs Temp Pulse Resp BP Pulse Ox 12/16/19 15:33 98.3 F 82 17 142/114 H 94 Inital Vital Signs reviewed: Yes General: Well nourished, Well developed, No Acute Distress Head: Normocephalic, Atraumatic Eyes: Perrl, EOMI ENT: Moist mucous membranes, No rhinorrhea Neck: Supple, Nontender Cardiovascular: Regular rate, Regular rhythm, Murmur Respiratory: No distress, CTA bilaterally, Chest nontender Abdomen: Soft, Nontender, Nondistended, Normal bowel sounds Back: Nontender, Normal Inspection Extremities: Nontender, Edema - Bilateral lower extremities Skin: Normal color, No rash Neurological: Alert, Oriented x3, Cranial nerves II-XII grossly intact, Normal Strength, Normal Sensation Psychological: Normal affect, Normal Mood Diagnostic/Tx/Re-eval - EKG Initial EKG Interpretation: - - Rate of 71 bpm and normal sinus rhythm. Normal intervals. Left axis deviation. There is mild T wave elevation compared to her previous EKG which was performed on April 262014. No ST elevations or depressions appreciated. - Medical Decision Making Patient presents to the emerge department for elevated creatinine and potassium. Patient does not want to go on dialysis although she states nobody is ever really talked to her about this. At this time she does not want to go on it. She does want medical management at this time. Will start on calcium, insulin/dextrose and basic lab work will be repeated. We will plan on admission to the hospital for further evaluation and management. Patient likely would benefit from hospice evaluation if she does not want to go onto dialysis. Patient treated with insulin/dextrose, calcium, Kayexalate and was started on IV fluids. Will bring into the hospital for further evaluation and management. This was all discussed with the hospitalist and they are going to come down to evaluate the patient. She otherwise has been stable throughout ED stay. She understands and is agreeable with this plan. ED Disposition - Plan for ED Patient: Disposition: Acute Care Hospital [facility] Diagnosis: Hyperkalemia, Chronic kidney disease
[2019-12-16 16:36] LABS: Absolute Lymphocyte Count 1.26 X10^3/uL (0.83-4.51); Basophil# 0.02 X10^3/uL; Basophil% 0.3 % (0-1); Eosinophil# 0.29 X10^3/uL; Hematocrit 34.4 % (37-47); Hemoglobin 10.3 g/dL (12.0-15.0); Lymphocyte # 1.26 X10^3/ul (4.0); Lymphocyte % 17.3 % (19-41); Mean Corp Hgb Conc 29.9 g/dL (32-36); Mean Corpuscular Hgb 28.5 pg (27.0-32.0); Mean Platelet Vol. 10.9 fl (6.2-12.0); Monocyte# 0.66 X10^3/uL; Monocyte% 9.1 % (0-10); NRBC Flagged by Analyzer 0 % (0-5); Neutrophil % 68.7 % (47-70); Platelet Count 201 K/mm3 (150-450); RBC Distribution Width CV 15.1 % (11.6-14.6); RBC Distribution Width SD 52.7 fl (35.1-43.9); Red Blood Count 3.62 M/mm3 (4.2-5.4); White Blood Count 7.3 K/mm3 (4.4-11.0)
[2019-12-16] MEDS: Insulin Lispro 5 UNIT in Syringe 0 ML 3 UNIT IV (16:59)
[2019-12-16] MEDS: Calcium Gluconate 1 GM/10 ML Vial IV ×2 (16:59→23:43)
[2019-12-16] MEDS: Dextrose 50%-Water 25 GM/50 ML DISP.SYRIN IV (16:59)
[2019-12-16 17:50] LABS: Bacteria 0 SEEN /hpf (None Seen); Color, Urine Yellow (Yellow); Glucose, Dipstick Normal (Normal); Ketone-Dipstick Negative (Negative); Leukocyte Esterase-Dipstick Negative /ul (Negative); Mucous, Urine 0 SEEN /hpf (<or=2+); Nitrite-Dipstick Negative (Negative); Occult Blood-Urine Negative /ul (Negative); Protein-Dipstick Negative (Negative); Red Blood Cells-Urine 0 SEEN /hpf (0-5); Squamous Epithelial Cells - UA 0 SEEN /hpf (5-10); Urine Bilirubin Dipstick Negative (Negative); Urine Clarity Clear (Clear); Urine Urobilinogen Normal (Normal); White Blood Cells 0 SEEN /hpf (0-5)
[2019-12-16 17:55] LABS: Anion Gap 4 (5-15); BUN 70 mg/dL (7-18); BUN/Creat Ratio 12.7 RATIO (10-20); Calcium,Total 9.2 mg/dL (8.5-10.1); Chloride 102 mmol/L (98-107); Creatinine, Serum 5.52 mg/dL (0.55-1.02); EST Glomerular Filtration Rate 8 mL/min (>60); Est Glom Filt Rate - Afr Amer 10 mL/min (>60); Estimated Creatinine Clearance 6.75 ml/min; Glucose 108 mg/dL (74-106); Magnesium 2.9 mg/dL (1.6-2.6); Potassium 6.9 mmol/L (3.5-5.1); Sodium Level 136 mmol/L (136-145)
--- NOTE | 2019-12-16 17:57 | NURSING ---
DR GUERRA FOR DR TRIVEDI
--- NOTE | 2019-12-16 18:03 | NURSING ---
PCU CKD, HYPERKALEMIA CHARLIE
--- NOTE | 2019-12-16 18:16 | HP.PCM_ITS ---
<Albert Dinh - Last Filed: 12/16/19 18:16> Problem List (1) Hyperkalemia Status: Acute (2) Acute kidney injury superimposed on CKD Status: Acute (3) Stage III chronic kidney disease Status: Chronic (4) GERD (gastroesophageal reflux disease) Status: Chronic (5) Hyperlipidemia Status: Chronic (6) Hypertension Status: Chronic (7) Type 2 diabetes mellitus Status: Chronic (8) Paroxysmal A-fib Status: Chronic History of Present Illness Date of Admission: 12/16/19 Chief Complaint: abnormal labs The patient is a 79 year old F with pmhx of CKDIII, DMt2, pAfib, bladder cancer in remission, who presents to the ER with abnormal labs. She was at [facility] where she lives and was out gardening with no acute issues when she was told she needed to come to the ER because of her labs which showed elevated potassium and KAIT. She states she has been in her normal state of health and does not feel unwell. She has no CP, palpitations, LH, SOB. She has no cough, fever,chills, nausea, vomiting, or diarrhea. She has no dysuria and has not noticed a decrese in urination. She says she goes about 3 times per day in large quantities when she does. She has chronic LE edema that she notes has improved recently. In the ER she received calcium gluconate, kayexalate, insulin, and d50. [] Past Medical History Past Medical History (Chronic Problems): Chronic Problems (Last Updated 09/26/17 @ 15:50 by Selena Ortiz) Paroxysmal A-fib (Chronic) Stage III chronic kidney disease (Chronic) GERD (gastroesophageal reflux disease) (Chronic) Hyperlipidemia (Chronic) Hypertension (Chronic) Type 2 diabetes mellitus (Chronic) Parkinsons disease (Chronic) Medical History: Medical History (Last Updated 09/26/17 @ 15:50 by Selena Ortiz) Anxiety and depression F41.9, F32.9 Arthritis M19.90 Asthma J45.909 Back problem M53.9 Bladder cancer C67.9 Cataracts, bilateral H26.9 Chronic headaches R51 GERD (gastroesophageal reflux disease) K21.9 Gallstones K80.20 Heart murmur R01.1 High cholesterol E78.00 Hives L50.9 Liver disease K76.9 Neuropathy G62.9 Osteoarthritis M19.90 Osteopenia M85.80 Pain in both knees M25.561, M25.562 Recurrent UTI N39.0 Recurrent infections B99.9 Skin cancer C44.90 Type 2 diabetes mellitus E11.9 Dx : 1993 Last exacerbation : DKA : at dx Hypoglycemic episode : never ER visit at dx Vision problems H54.7 HTN (hypertension) I10 Allergies sulfamethoxazole [From Bactrim] Allergy (Verified 11/24/17 23:04) Rash trimethoprim [From Bactrim] Allergy (Verified 11/24/17 23:04) Rash carbidopa [From Sinemet] Adverse Reaction (Verified 11/24/17 23:04) Nausea hydrocodone bitartrate [From Vicodin] Adverse Reaction (Verified 11/24/17 23:04) Nausea ketoprofen [From Orudis] Adverse Reaction (Verified 11/24/17 23:04) Unknown levodopa [From Sinemet] Adverse Reaction (Verified 11/24/17 23:04) Nausea lorazepam [From Ativan] Adverse Reaction (Verified 11/24/17 23:04) hallucination metformin HCl [From Glucophage] Adverse Reaction (Verified 11/24/17 23:04) Nausea naloxone Adverse Reaction (Verified 11/24/17 23:04) Nausea NSAIDS (Non-Steroidal Anti-Inflamma Adverse Reaction (Verified 12/16/19 15:31) PT UNSURE OF REACTION oxaprozin [From Daypro] Adverse Reaction (Verified 11/24/17 23:04) Nausea oxycodone HCl [From Percocet] Adverse Reaction (Verified 11/24/17 23:04) Nausea propoxyphene HCl [From Darvon] Adverse Reaction (Verified 11/24/17 23:04) Nausea rofecoxib [From Vioxx] Adverse Reaction (Verified 11/24/17 23:04) Nausea rosiglitazone maleate [From Avandia] Adverse Reaction (Verified 11/24/17 23:04) Nausea sertraline HCl [From Zoloft] Adverse Reaction (Verified 11/24/17 23:04) haullucination simvastatin [From Zocor] Adverse Reaction (Verified 11/24/17 23:04) Nausea venlafaxine HCl [From Effexor] Adverse Reaction (Verified 11/24/17 23:04) Nausea Home Medications: Ambulatory Orders Medication Instructions Recorded Acetaminophen [Tylenol Tablet] 650 mg PO TID 09/20/17 Atorvastatin Calcium [Lipitor] 10 mg PO QHS 12/16/19 Bacillus Coagulans/Inulin 1 cap PO DAILY 12/16/19 [Probiotic Formula Capsule] Bumetanide [Bumex] 2 mg PO BID 12/16/19 Calcitriol 0.5 mcg PO DAILY 12/16/19 Dulaglutide [Trulicity] 0.75 mg SQ TU 12/16/19 Famotidine 20 mg PO QHS 12/16/19 Gabapentin [Neurontin] 200 mg PO QHS 12/16/19 Insulin Aspart [Novolog Flexpen 10 units SUBCUT DAILY@0900 [facility]/19 [facility] Insulin Aspart [Novolog Flexpen See Protocol SUBCUT TIDCM 12/16/19 ([facility])] Insulin Aspart [Novolog] 12 unit SQ DAILY@1200 12/16/19 Insulin Aspart [Novolog] 12 unit SQ DAILY@1700 12/16/19 Insulin Glargine,Hum.rec.anlog 40 unit SQ BID 12/16/19 [Lantus] Lisinopril 40 mg PO DAILY 12/16/19 Melatonin 3 mg PO QHS 12/16/19 Mirtazapine [Remeron] 15 mg PO QHS 12/16/19 Oxycodone HCl 10 mg PO TID 12/16/19 Ropinirole HCl 2 mg PO TID 12/16/19 Surgical History: cholecystectomy, total knee arthroplasty - BL, - - bladder surgery for cancer (in remission), BL elbow surgery Psychiatric History: No pertinent psych hx [employer] History: No pertinent [employer] history Lives: [facility] Smoking Status: Never smoker Tobacco Use: Non-smoker Alcohol: None Drugs: None - *Family History Maternal Family History: Family History (Last Updated 09/26/17 @ 15:32 by Selena Ortiz) Unknown Asthma Osteoporosis Skin cancer CVA (cerebral vascular accident) Arthritis Cancer Diabetes Heart disease Hypertension High cholesterol Kidney stones Liver disease History Items: Heart Disease, Stroke Paternal Family History: Family History (Last Updated 09/26/17 @ 15:32 by Selena Ortiz) Unknown Asthma Osteoporosis Skin cancer CVA (cerebral vascular accident) Arthritis Cancer Diabetes Heart disease Hypertension High cholesterol Kidney stones Liver disease History Items: Heart Disease Review of Systems Constitutional: Denies: Chills, Fever, Weight Change, Fatigue HEENT: Denies: Head Aches, Sinus Congestion, Sinus Drainage Cardiovascular: Reports: Edema - (LE edema improving). Denies: Chest Pain, Chest Pressure, Light Headedness, Palpitations, Syncope Respiratory: Denies: Cough, Shortness of Breath, Shortness of breath at rest, Sputum production Gastrointestinal: Denies: Abdominal Pain, Diarrhea, Nausea, Vomiting Genitourinary: Denies: Dysuria, Frequency, Retention, Urgency Musculoskeletal: Reports: Joint Pain - all over joint pain (chronic). Denies: Joint Tenderness, Muscle pain Skin: Denies: Lesions, Rash, Wounds Neurological: Denies: Confusion, Focal weakness, Numbness, Tingling Psychiatric: Denies: Anxiety, Depression, Homicidal Ideations, Suicidal Ideations Hematologic/ Lymphatic: Denies: Easy Bruising, Easy Bleeding VTE Information - Inpt Only VTE Present on Admission: No VTE Mechan Device Prophylaxis: None VTE Pharm Prophylaxis ordered?: Yes Patient Problems: Active and Suspected Problems (Last Updated 09/26/17 @ 15:50 by Selena Ortiz) Hyperkalemia (Acute) Acute kidney injury superimposed on CKD (Acute) - Physical Exam Vitals/I&O's: Vital Signs Temp Pulse Resp BP Pulse Ox 98.3 F 87 18 131/53 H 96 12/16/19 15:33 12/16/19 17:56 12/16/19 17:56 12/16/19 17:56 12/16/19 17:56 Oxygen Delivery Method Room Air Weight: 201 lb 0.985 oz Body Mass Index (BMI) 36.8 Finger Stick Blood Glucose 309 Intake and Output for Last 24 Hours 12/14/19 12/15/19 12/16/19 23:59 23:59 23:59 Intake Total 0.05 / 0.05 Balance 0.05 / 0.05 General: Alert, Oriented x3, Cooperative HEENT: Atraumatic, PERRLA, EOMI, Normocephalic Neck: Supple, No JVD, Negative Carotid Bruits Lungs: Clear to auscultation, Normal air movement Cardiovascular: Regular rate, No murmurs Abdomen: Bowel Sounds Present, Soft, Non Tender Extremities: Capillary Refill Less than 3 Seconds, Edema - BL LE Skin: No rashes, No breakdown Musculoskeletal: No Tenderness to Palpation of Joints or Extremities Neurological: Cranial nerves II-XII grossly intact Psych/Mental Status: Normal Affect, Appropriate, Alert and oriented to time, place, person, mood and affect Laboratory Results 12/16/19 16:27: WBC 7.3, RBC 3.62 L, Hgb 10.3 L, Hct 34.4 L, MCV 95.0, MCH 28.5, MCHC 29.9 L, RDW Std Deviation 52.7 H, RDW Coeff of Sena 15.1 H, Plt Count 201, MPV 10.9, Immature Gran % (Auto) 0.600, Neut % (Auto) 68.7, Lymph % (Auto) 17.3 L, Lyman % (Auto) 9.1, Eos % (Auto) 4.0, Baso % (Auto) 0.3, Absolute Neuts (auto) 5.0, Absolute Lymphs (auto) 1.26, Nucleated RBC % 0 12/16/19 16:27: Sodium 136, Potassium 6.9 H*, Chloride 102, Carbon Dioxide 30.0, Anion Gap 4 L, BUN 70 H, Creatinine 5.52 H, Estim Creat Clear Calc 6.75, Est GFR (MDRD) Af Amer 10 L, Est GFR (MDRD) Non-Af 8 L, BUN/Creatinine Ratio 12.7, Glucose 108 H, Calcium 9.2, Magnesium 2.9 H, Troponin I 0.018 12/16/19 17:45: Urine Color Yellow, Urine Clarity Clear, Urine pH 6.0, Ur Specific Evart 1.010, Urine Protein Negative, Urine Glucose (UA) Normal, Urine Ketones Negative, Urine Occult Blood Negative, Urine Nitrite Negative, Urine Bilirubin Negative, Urine Urobilinogen Normal, Ur Leukocyte Esterase Negative, Urine RBC Pending, Urine WBC Pending, Ur Squamous Epith Cells Pending, Urine Bacteria Pending, Urine Mucus Pending Current Medications Sodium Chloride () 1,000 mls @ 999 mls/hr IV .Q1H1M ONE Stop: 12/16/19 18:58 Assessment/Plan All Active Problems (Last Updated 09/26/17 @ 15:50 by Selena Ortiz) Hyperkalemia (Acute) Acute kidney injury superimposed on CKD (Acute) 1. KAIT on CKDIII - asymptomatic. Hyperkalemic as well. Hold bumex, lisinopril, pepcid. Pt received calcium gluc, kayexalate, insulin + d50. Recheck K+ tonight. UA neg. EKG NSR. 2. PAfib - SR. Not on rate limiting medications or OAC. 3. DMt2 - hold orals. Continue home insulin + SSI + Accuchecks. 4. HTN - mildly elevated, trend 5. Hx bladder cancer in remission s/p resection 6. Chronic pain - oxycodone, neurontin DVT ppx: heparin DC Planning: Return to assisted living This patient was seen by Albert Dinh PA-C under the supervision of Dr. Milligan <Pola Milligan E - Last Filed: 12/16/19 18:51> History of Present Illness The patient is a 79 year old F [] Past Medical History Medical History: Medical History (Last Updated 09/26/17 @ 15:50 by Selena Ortiz) Anxiety and depression F41.9, F32.9 Arthritis M19.90 Asthma J45.909 Back problem M53.9 Bladder cancer C67.9 Cataracts, bilateral H26.9 Chronic headaches R51 GERD (gastroesophageal reflux disease) K21.9 Gallstones K80.20 Heart murmur R01.1 High cholesterol E78.00 Hives L50.9 Liver disease K76.9 Neuropathy G62.9 Osteoarthritis M19.90 Osteopenia M85.80 Pain in both knees M25.561, M25.562 Recurrent UTI N39.0 Recurrent infections B99.9 Skin cancer C44.90 Type 2 diabetes mellitus E11.9 Dx : 1993 Last exacerbation : DKA : at dx Hypoglycemic episode : never ER visit at dx Vision problems H54.7 HTN (hypertension) I10 Allergies sulfamethoxazole [From Bactrim] Allergy (Verified 11/24/17 23:04) Rash trimethoprim [From Bactrim] Allergy (Verified 11/24/17 23:04) Rash carbidopa [From Sinemet] Adverse Reaction (Verified 11/24/17 23:04) Nausea hydrocodone bitartrate [From Vicodin] Adverse Reaction (Verified 11/24/17 23:04) Nausea ketoprofen [From Orudis] Adverse Reaction (Verified 11/24/17 23:04) Unknown levodopa [From Sinemet] Adverse Reaction (Verified 11/24/17 23:04) Nausea lorazepam [From Ativan] Adverse Reaction (Verified 11/24/17 23:04) hallucination metformin HCl [From Glucophage] Adverse Reaction (Verified 11/24/17 23:04) Nausea naloxone Adverse Reaction (Verified 11/24/17 23:04) Nausea NSAIDS (Non-Steroidal Anti-Inflamma Adverse Reaction (Verified 12/16/19 15:31) PT UNSURE OF REACTION oxaprozin [From Daypro] Adverse Reaction (Verified 11/24/17 23:04) Nausea oxycodone HCl [From Percocet] Adverse Reaction (Verified 11/24/17 23:04) Nausea propoxyphene HCl [From Darvon] Adverse Reaction (Verified 11/24/17 23:04) Nausea rofecoxib [From Vioxx] Adverse Reaction (Verified 11/24/17 23:04) Nausea rosiglitazone maleate [From Avandia] Adverse Reaction (Verified 11/24/17 23:04) Nausea sertraline HCl [From Zoloft] Adverse Reaction (Verified 11/24/17 23:04) haullucination simvastatin [From Zocor] Adverse Reaction (Verified 11/24/17 23:04) Nausea venlafaxine HCl [From Effexor] Adverse Reaction (Verified 11/24/17 23:04) Nausea - *Family History Maternal Family History: Family History (Last Updated 09/26/17 @ 15:32 by Selena Ortiz) Unknown Asthma Osteoporosis Skin cancer CVA (cerebral vascular accident) Arthritis Cancer Diabetes Heart disease Hypertension High cholesterol Kidney stones Liver disease Paternal Family History: Family History (Last Updated 09/26/17 @ 15:32 by Selena Ortiz) Unknown Asthma Osteoporosis Skin cancer CVA (cerebral vascular accident) Arthritis Cancer Diabetes Heart disease Hypertension High cholesterol Kidney stones Liver disease - Physical Exam Vitals/I&O's: Vital Signs Temp Pulse Resp BP Pulse Ox 98.3 F 87 18 131/53 H 98 12/16/19 18:39 12/16/19 18:39 12/16/19 18:39 12/16/19 18:39 12/16/19 18:39 Oxygen Delivery Method Room Air Weight: 201 lb 0.985 oz Body Mass Index (BMI) 36.8 Finger Stick Blood Glucose 309 Intake and Output for Last 24 Hours 12/14/19 12/15/19 12/16/19 23:59 23:59 23:59 Intake Total 0.05 / 0.05 Balance 0.05 / 0.05 Laboratory Results 12/16/19 16:27: WBC 7.3, RBC 3.62 L, Hgb 10.3 L, Hct 34.4 L, MCV 95.0, MCH 28.5, MCHC 29.9 L, RDW Std Deviation 52.7 H, RDW Coeff of Sena 15.1 H, Plt Count 201, MPV 10.9, Immature Gran % (Auto) 0.600, Neut % (Auto) 68.7, Lymph % (Auto) 17.3 L, Lyman % (Auto) 9.1, Eos % (Auto) 4.0, Baso % (Auto) 0.3, Absolute Neuts (auto) 5.0, Absolute Lymphs (auto) 1.26, Nucleated RBC % 0 12/16/19 16:27: Sodium 136, Potassium 6.9 H*, Chloride 102, Carbon Dioxide 30.0, Anion Gap 4 L, BUN 70 H, Creatinine 5.52 H, Estim Creat Clear Calc 6.75, Est GFR (MDRD) Af Amer 10 L, Est GFR (MDRD) Non-Af 8 L, BUN/Creatinine Ratio 12.7, Glucose 108 H, Calcium 9.2, Magnesium 2.9 H, Troponin I 0.018 12/16/19 17:45: Urine Color Yellow, Urine Clarity Clear, Urine pH 6.0, Ur Specific Evart 1.010, Urine Protein Negative, Urine Glucose (UA) Normal, Urine Ketones Negative, Urine Occult Blood Negative, Urine Nitrite Negative, Urine Bilirubin Negative, Urine Urobilinogen Normal, Ur Leukocyte Esterase Negative, Urine RBC Pending, Urine WBC Pending, Ur Squamous Epith Cells Pending, Urine Bacteria Pending, Urine Mucus Pending Current Medications Sodium Chloride () 1,000 mls @ 999 mls/hr IV .Q1H1M ONE Stop: 12/16/19 18:58 Last Admin: 12/16/19 18:21 Dose: 999 mls/hr Documented by: Assessment/Plan Hospitalist note: I am seeing this patient in conjunction with Albert Dinh. I independently seen and examined the patient. History and physical, laboratory data and imaging studies reviewed and I concur with the above admission and treatment plan. Patient was referred to the ED by the nursing staff at the [facility] for abnormal labs. She was found to have elevated potassium and worsening kidney function. Patient denied any specific symptoms. She denied abdominal pain, nausea or vomiting. She denied constipation or diarrhea. She reported good appetite. She denied chest pain or shortness of breath. She denied urinary symptoms. She does have a history of stage III chronic kidney disease and her baseline creatinine has been around 2 mg/dL. She will history of type 2 diabetes mellitus and she has been on insulin therapy, hemoglobin A1c was 7.5% last month. She will history of hypertension which has been under control with lisinopril and Bumex. In the emergency department, her vital signs are stable. Her routine blood work was remarkable for chronic anemia with stable hemoglobin, potassium 6.9, creatinine was 5.52. Magnesium was 2.9. EKG revealed normal sinus rhythm with occasional PVCs, no acute changes. Troponin was negative. Urinalysis showed clear urine, negative for nitrite and leukocyte esterase. She is being admitted for acute kidney injury on top of stage III chronic kidney disease and hyperkalemia. - Physical Exam General: Alert, Oriented x3, Cooperative, No apparent distress. HEENT: Atraumatic, PERRLA, EOMI. Neck: Supple, No JVD, Negative Carotid Bruits, Trachea Midline, Thyroid Normal. Lungs: Diminished breath sounds bilateral, otherwise clear, No rhonchi, No wheeze, No rales. Cardiovascular: Regular rate, Regular Rhythm, Normal S1, Normal S2, PMI Normal. Abdomen: Bowel Sounds Present, Soft, Non Tender, Non-Distended, No Hepato- splenomegaly. Extremities: No clubbing, No cyanosis, ++ edema Skin: No rashes, No breakdown Neurological: Cranial nerves are intact, neuro grossly intact Vital Signs are stable. Assessment and plan: #1 acute kidney injury on top of stage III chronic kidney disease/hyperkalemia: Baseline creatinine has been around 2 mg/dL, admission creatinine is 5.52. This is likely due to medication side effects or progression of her chronic kidney disease. Patient has been on lisinopril and Bumex. She was taken off Lasix recently. She received IV calcium gluconate, IV insulin, D50 and p.o. Kayexalat e in the ED. EKG reviewed as above. Patient states that she does not want any aggressive treatment, refused dialysis. Plan: Admit to PCU, cardiac monitoring, IV fluids for hydration, kidney ultrasound, nephrology consult, repeat potassium at 10 PM tonight, repeat CBC and BMP tomorrow morning, PT OT evaluation and treatment. #2 CODE STATUS: According to signed document from the assisted living, patient is DNR CC and she has been seen by palliative care. Patient agreed to medical treatment with IV fluids and other medications if needed. Patient's sister was at the bedside and she agreed as well. #3 other chronic medical problems: Stable, continue current medications as above. This note was generated with [employer] dictation software. It may contain incorrect words, spelling, and punctuation that were not noted in checking the note before signing. Inpatient E&M: [id number] Init Hosp L3
[2019-12-16] MEDS: Sodium Polystyrene Sulfonate 15 GM/60 ML UDC PO ×2 (18:21→23:41)
[2019-12-16] MEDS: 0.9% Normal Saline 1,000 ML 999 ML IV (18:21)
--- NOTE | 2019-12-16 19:22 | US_ITS ---
HISTORY: Acute kidney insufficiency. 85 images. No comparison imaging. Findings: The right kidney measures 1.6 x 4.8 x 4.2 cm. Right renal cortex is measuring 13 mm thick. There is no hydronephrosis, nephrolithiasis, nor masses. The left kidney measures 10.8 x 4.3 x 5.6 cm. Left renal cortex is measured at 16 mm thick. There is no hydronephrosis, nephrolithiasis, nor masses. Bladder volume is estimated at just below 500 cc. No bladder wall thickening is perceived. Color Doppler imaging demonstrates flow to both left and right renal parenchyma. Ureteric jets were not definitively identified on color Doppler imaging of the posterior wall of the urinary bladder US/Kidney and Bladder IMPRESSION: Normal. at 0545 Reported and signed by: David Tabares MD Electronically Signed: David Tabares MD at 5:44 EDT Tel , Service support ,
[2019-12-16] MEDS: 0.9% Normal Saline 1,000 ML 125 ML IV (20:08)
[2019-12-16] MEDS: Heparin Injection (Vial) 5,000 UNIT/ML VIAL 5000 UNIT SC (21:16)
[2019-12-16] MEDS: Mirtazapine 15 MG Tablet PO (21:17)
[2019-12-16] MEDS: MELATONIN 3 MG TABLET PO (21:17)
[2019-12-16] MEDS: Pramipexole Di-HCl 1 MG Tablet PO (21:17)
[2019-12-16] MEDS: Atorvastatin Calcium 10 MG Tablet PO (21:17)
[2019-12-16] MEDS: Gabapentin 100 MG Capsule 200 MG PO (21:17)
[2019-12-16] MEDS: Famotidine 20 MG Tablet PO (21:18)
[2019-12-16 21:41] LABS: Bedside Glucose 151 mg/dL (70-110)
[2019-12-16] MEDS: oxyCODONE 5 MG Tablet 10 MG PO (22:35)
[2019-12-16 22:48] LABS: Potassium 6.3 mmol/L (3.5-5.1)
[2019-12-16] MEDS: Albuterol 2.5 MG/3 ML VIAL.NEB. INHALATION (23:14)
[2019-12-17] VITALS (10 sets, daily range): BP systolic 95–114; BP diastolic 37–94; PULSE 57–78; RESP 18; TEMP 36.4–36.6; O2SAT 95–97
[2019-12-17] MEDS: Dextrose 50%-Water 25 GM/50 ML DISP.SYRIN IV ×2 (00:16→22:30)
[2019-12-17] MEDS: 0.9% Normal Saline 1,000 ML 125 ML IV ×3 (04:11→18:51)
[2019-12-17] MEDS: Pramipexole Di-HCl 1 MG Tablet PO ×3 (05:51→21:05)
[2019-12-17] MEDS: oxyCODONE 5 MG Tablet 10 MG PO ×3 (05:51→21:05)
[2019-12-17] MEDS: Heparin Injection (Vial) 5,000 UNIT/ML VIAL 5000 UNIT SC ×3 (05:51→21:04)
[2019-12-17 06:03] LABS: Absolute Lymphocyte Count 1.05 X10^3/uL (0.83-4.51); Absolute Neutrophil Count 3.3 X10^3/uL (2.0-7.7); Basophil# 0.01 X10^3/uL; Basophil% 0.2 % (0-1); Eosinophil# 0.12 X10^3/uL; Eosinophils% 2.5 % (0-5); Hematocrit 28.2 % (37-47); Hemoglobin 8.4 g/dL (12.0-15.0); Lymphocyte # 1.05 X10^3/ul (4.0); Lymphocyte % 21.6 % (19-41); Mean Corp Hgb Conc 29.8 g/dL (32-36); Mean Corpuscular Hgb 28.5 pg (27.0-32.0); Mean Corpuscular Volume 95.6 fL (81-99); Mean Platelet Vol. 11.1 fl (6.2-12.0); Monocyte# 0.39 X10^3/uL; NRBC Flagged by Analyzer 0 % (0-5); Neutrophil # 3.27 X10^3/uL (2.7-7.7); Neutrophil % 67.3 % (47-70); Platelet Count 136 K/mm3 (150-450); RBC Distribution Width CV 14.9 % (11.6-14.6); RBC Distribution Width SD 51.9 fl (35.1-43.9); Red Blood Count 2.95 M/mm3 (4.2-5.4); White Blood Count 4.9 K/mm3 (4.4-11.0)
[2019-12-17 06:37] LABS: Anion Gap 6 (5-15); BUN 60 mg/dL (7-18); BUN/Creat Ratio 15.9 RATIO (10-20); Calcium,Total 8.2 mg/dL (8.5-10.1); Chloride 105 mmol/L (98-107); Creatinine, Serum 3.78 mg/dL (0.55-1.02); EST Glomerular Filtration Rate 12 mL/min (>60); Est Glom Filt Rate - Afr Amer 15 mL/min (>60); Estimated Creatinine Clearance 9.86 ml/min; Glucose 155 mg/dL (74-106); Potassium 5.2 mmol/L (3.5-5.1); Sodium Level 140 mmol/L (136-145)
[2019-12-17 07:15] LABS: Bedside Glucose 155 mg/dL (70-110)
[2019-12-17] MEDS: Insulin Lispro 100 UNIT/ML INSULN.PEN SC ×3 (07:59→16:41)
[2019-12-17] MEDS: Insulin Lispro 100 UNIT/ML INSULN.PEN 10 UNIT SC (07:59)
[2019-12-17] MEDS: Calcitriol 0.25 MCG Capsule 0.5 MCG PO (09:06)
[2019-12-17 11:16] LABS: Bedside Glucose 323 mg/dL (70-110)
[2019-12-17] MEDS: Insulin Lispro 100 UNIT/ML INSULN.PEN 12 UNIT SC ×2 (11:49→16:40)
--- NOTE | 2019-12-17 12:00 | OT ---
PROVIDED ERICA HEP HANDOUT AND VERBALLY EDU PT ON EXERCISES. PT VERBALIZES UNDERSTANDING BUT WILL BENEFIT FROM REINFORCEMENT. ALSO EDU PT ON USE OF CALL LIGHT
--- NOTE | 2019-12-17 15:03 | CASEMGMT ---
Patient is from [facility] [facility]. 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 SW faxed updates to [facility]. Anita JEWELL MSW
--- NOTE | 2019-12-17 15:22 | PCM.PROGNOTE ---
Patient Problems: Active and Suspected Problems (Last Updated 09/26/17 @ 15:50 by Selena Ortiz) Hyperkalemia (Acute) Acute kidney injury superimposed on CKD (Acute) Subjective: Patient was seen and examined today, her creatinine is much improved from yesterday, I do not feel that she needs to be seen by nephrology and I canceled her consultation. Patient remains on IV fluid at this time, she voices no complaints at this examiner. - Physical Exam Vitals/I&O's: Vital Signs Temp Pulse Resp BP Pulse Ox 97.6 F L 78 18 95/52 L 97 12/17/19 15:05 12/17/19 15:05 12/17/19 15:05 12/17/19 15:05 12/17/19 15:05 Oxygen Delivery Method Room Air Weight: 87.5 kg Body Mass Index (BMI) 34.7 Finger Stick Blood Glucose 309 Intake and Output for Last 24 Hours 12/15/19 12/16/19 12/17/19 23:59 23:59 23:59 Intake Total 1725.05 / 1725.05 Output Total 350 / 350 Balance 1725.05 / 1725.05 1667.08 / 1667.08 General: Alert, Oriented x3, Cooperative, No apparent distress, Well developed, Well nourished HEENT: Atraumatic, PERRLA, EOMI, Normocephalic Oral: Moist Mucosa Neck: Supple, No JVD, Negative Carotid Bruits Lungs: Clear to auscultation, Normal air movement, No rhonchi, No wheeze, No rales Cardiovascular: Regular rate, Regular Rhythm, Normal S1, Normal S2, No murmurs, PMI Normal, No rub noted, No Gallop Abdomen: Bowel Sounds Present, Soft, Non Tender, Non-Distended Extremities: No edema, Capillary Refill Less than 3 Seconds Skin: No rashes, No breakdown Musculoskeletal: No Tenderness to Palpation of Joints or Extremities Neurological: Cranial nerves II-XII grossly intact, Neuro grossly intact, Sensory exam intact to light touch and pain, Coordination normal Psych/Mental Status: Normal Affect, Appropriate, Alert and oriented to time, place, person, mood and affect Laboratory Results 12/16/19 16:27: WBC 7.3, RBC 3.62 L, Hgb 10.3 L, Hct 34.4 L, MCV 95.0, MCH 28.5, MCHC 29.9 L, RDW Std Deviation 52.7 H, RDW Coeff of [place] 15.1 H, Plt Count 201, MPV 10.9, Immature Gran % (Auto) 0.600, Neut % (Auto) 68.7, Lymph % (Auto) 17.3 L, [place] % (Auto) 9.1, Eos % (Auto) 4.0, Baso % (Auto) 0.3, Absolute Neuts (auto) 5.0, Absolute Lymphs (auto) 1.26, Nucleated RBC % 0 12/16/19 16:27: Sodium 136, Potassium 6.9 H*, Chloride 102, Carbon Dioxide 30.0, Anion Gap 4 L, BUN 70 H, Creatinine 5.52 H, Estim Creat Clear Calc 6.75, Est GFR (MDRD) Af Amer 10 L, Est GFR (MDRD) Non-Af 8 L, BUN/Creatinine Ratio 12.7, Glucose 108 H, Calcium 9.2, Magnesium 2.9 H, Troponin I 0.018 12/16/19 17:45: Urine Color Yellow, Urine Clarity Clear, Urine pH 6.0, Ur Specific [place] 1.010, Urine Protein Negative, Urine Glucose (UA) Normal, Urine Ketones Negative, Urine Occult Blood Negative, Urine Nitrite Negative, Urine Bilirubin Negative, Urine Urobilinogen Normal, Ur Leukocyte Esterase Negative, Urine RBC 0 SEEN, Urine WBC 0 SEEN, Ur Squamous Epith Cells 0 SEEN, Urine Bacteria 0 SEEN, Urine Mucus 0 SEEN 12/16/19 21:12: POC Glucose 151 H 12/16/19 22:12: Potassium 6.3 H* 12/17/19 05:40: WBC 4.9, RBC 2.95 L, Hgb 8.4 L, Hct 28.2 L, MCV 95.6, MCH 28.5, MCHC 29.8 L, RDW Std Deviation 51.9 H, RDW Coeff of [place] 14.9 H, Plt Count 136 L, MPV 11.1, Immature Gran % (Auto) 0.400, Neut % (Auto) 67.3, Lymph % (Auto) 21.6, [place] % (Auto) 8.0, Eos % (Auto) 2.5, Baso % (Auto) 0.2, Absolute Neuts (auto) 3.3, Absolute Lymphs (auto) 1.05, Nucleated RBC % 0 12/17/19 05:40: Sodium 140, Potassium 5.2 H, Chloride 105, Carbon Dioxide 29.0, Anion Gap 6, BUN 60 H, Creatinine 3.78 H, Estim Creat Clear Calc 9.86, Est GFR (MDRD) Af Amer 15 L, Est GFR (MDRD) Non-Af 12 L, BUN/Creatinine Ratio 15.9, Glucose 155 H, Calcium 8.2 L 12/17/19 07:07: POC Glucose 155 H 12/17/19 11:05: POC Glucose 323 H 12/17/19 13:25: COVID-19 (DIAMANTE) Pending Current Medications Acetaminophen (Tylenol) 650 mg PO Q6H PRN PRN PRN Reason: Pain Score 1-10/Temp > 100.7 F Atorvastatin Calcium (Lipitor) 10 mg PO QHS [facility] Last Admin: 12/16/19 21:17 Dose: 10 mg Documented by: Calcitriol (Rocaltrol) 0.5 mcg PO DAILY [facility] Last Admin: 12/17/19 09:06 Dose: 0.5 mcg Documented by: Famotidine (Pepcid) 20 mg PO QHS [facility] Last Admin: 12/16/19 21:18 Dose: 20 mg Documented by: Gabapentin (Neurontin) 200 mg PO QHS [facility] Last Admin: 12/16/19 21:17 Dose: 200 mg Documented by: Heparin Sodium (Porcine) (Heparin Na) 5,000 unit SC Q8 [facility] Last Admin: 12/17/19 13:29 Dose: 5,000 unit Documented by: Sodium Chloride () 250 mls @ 15 mls/hr IV .[id number] PRN PRN Reason: Saline Flush Sodium Chloride () 250 mls @ 15 mls/hr IV .[id number] PRN PRN Reason: Additional IVPB Infusion Sodium Chloride () 1,000 mls @ 125 mls/hr IV .Q8H [facility] Last Admin: 12/17/19 11:48 Dose: 125 mls/hr Documented by: Insulin Glargine (Lantus (Bkc)) 40 units SC BID [facility] Last Admin: 12/17/19 09:06 Dose: 40 u Documented by: Insulin Human Lispro (Humalog Gilma (Bkc)) 0 unit SC ACHS [facility]; Protocol Last Admin: 12/17/19 11:49 Dose: 3 unit Documented by: Insulin Human Lispro (Humalog Kwikpen (Bkc)) 10 unit SC BREAKFAST [facility] Last Admin: 12/17/19 07:59 Dose: 10 units Documented by: Insulin Human Lispro (Humalog Kwikpen (Bkc)) 12 unit SC LUNCH [facility] Last Admin: 12/17/19 11:49 Dose: 12 unit Documented by: Insulin Human Lispro (Humalog Kwikpen (Bkc)) 12 unit SC DINNER [facility] Lactobacillus Acidophilus (Acidophilus) 1 tablet PO DAILY [facility] Last Admin: 12/17/19 09:06 Dose: 1 tablet Documented by: Melatonin (Melatonin) 3 mg PO QHS [facility] Last Admin: 12/16/19 21:17 Dose: 3 mg Documented by: Mirtazapine (Remeron) 15 mg PO QHS [facility] Last Admin: 12/16/19 21:17 Dose: 15 mg Documented by: Ondansetron HCl (Zofran) 4 mg IV Q8H PRN PRN PRN Reason: NAUSEA/VOMITING Oxycodone HCl (Oxyir) 10 mg PO TID [facility] Last Admin: 12/17/19 13:28 Dose: 10 mg Documented by: Pramipexole Dihydrochloride (Mirapex) 1 mg PO TID [facility] Last Admin: 12/17/19 13:28 Dose: 1 mg Documented by: Senna/Docusate Sodium (Senokot-S, Prema-Colace) 2 tablet PO BID PRN PRN PRN Reason: Constipation Sodium Chloride () 10 - 40 ml IV UD PRN PRN Reason: SALINE FLUSH Zolpidem Tartrate (Ambien (Generic)) 5 mg PO QHS PRN PRN PRN Reason: INSOMNIA Medical Necessity - Tobacco Use Smoking Status: Never smoker Tobacco Use: Non-smoker Assessment/Plan All Active Problems (Last Updated 09/26/17 @ 15:50 by Selena Ortiz) Hyperkalemia (Acute) Acute kidney injury superimposed on CKD (Acute) #1 acute kidney injury on a backdrop of chronic kidney disease stage III, I will continue IV fluid administration and recheck her labs tomorrow #2 hyperkalemia-patient's potassium is improved today, I will recheck it tomorrow #3 type 2 diabetes-continue to monitor blood sugars #4 Parkinson's disease #5 essential hypertension #6 hyperlipidemia #7 paroxysmal atrial fibrillation - patient is currently in normal sinus rhythm #8 chronic pain syndrome Inpatient E&M: 63944 Subs Hosp L2
[2019-12-17 16:46] LABS: Bedside Glucose 266 mg/dL (70-110)
[2019-12-17 18:00] LABS: Probe Check PASS; Specimen Processing Control PASS
[2019-12-17] MEDS: Mirtazapine 15 MG Tablet PO (21:04)
[2019-12-17] MEDS: Gabapentin 100 MG Capsule 200 MG PO (21:04)
[2019-12-17] MEDS: Famotidine 20 MG Tablet PO (21:04)
[2019-12-17] MEDS: Atorvastatin Calcium 10 MG Tablet PO (21:04)
[2019-12-17] MEDS: MELATONIN 3 MG TABLET PO (21:05)
[2019-12-17 22:55] LABS: Bedside Glucose 65 mg/dL (70-110)
[2019-12-17 22:55] LABS: Bedside Glucose 65 mg/dL (70-110)
[2019-12-17 22:55] LABS: Bedside Glucose 63 mg/dL (70-110)
[2019-12-17 23:01] LABS: Bedside Glucose 187 mg/dL (70-110)
[2019-12-18] MEDS: 0.9% Normal Saline 1,000 ML 125 ML IV (03:19)
[2019-12-18 03:27] VITALS: BP 108/74; PULSE 59; RESP 20; TEMP 36.4; O2SAT 97
[2019-12-18 03:32] VITALS: PULSE 54
[2019-12-18] MEDS: Heparin Injection (Vial) 5,000 UNIT/ML VIAL 5000 UNIT SC (05:52)
[2019-12-18] MEDS: oxyCODONE 5 MG Tablet 10 MG PO (05:53)
[2019-12-18] MEDS: Pramipexole Di-HCl 1 MG Tablet PO (05:53)
[2019-12-18 06:42] VITALS: PULSE 65
[2019-12-18 06:55] LABS: Bedside Glucose 102 mg/dL (70-110)
[2019-12-18 06:58] VITALS: O2SAT 98
[2019-12-18 07:13] LABS: Anion Gap 4 (5-15); BUN 43 mg/dL (7-18); BUN/Creat Ratio 23.4 RATIO (10-20); Calcium,Total 8.3 mg/dL (8.5-10.1); Chloride 109 mmol/L (98-107); Creatinine, Serum 1.84 mg/dL (0.55-1.02); EST Glomerular Filtration Rate 28 mL/min (>60); Est Glom Filt Rate - Afr Amer 34 mL/min (>60); Estimated Creatinine Clearance 20.25 ml/min; Glucose 79 mg/dL (74-106); Potassium 4.6 mmol/L (3.5-5.1); Sodium Level 142 mmol/L (136-145)
[2019-12-18] MEDS: Insulin Lispro 100 UNIT/ML INSULN.PEN 10 UNIT SC (08:11)
[2019-12-18 08:16] LABS: Bedside Glucose 125 mg/dL (70-110)
--- NOTE | 2019-12-18 08:37 | PCM.TXEXTCAR ---
- Diet 12/17/19 13:17 Diet: Renal - Carb-Controlled Is pt able to select menu?: Yes Diet Comments: Low sodium - Routine Orders/Code Status Routine Lab Work: BMP - in 3 days Code Status: DNRCC - Wound(s) left calf Wound Type: open blister - Problem/Diagnosis (1) Hyperkalemia Status: Acute Current Visit: Yes (2) Acute kidney injury superimposed on CKD Status: Acute Current Visit: No (3) Stage III chronic kidney disease Status: Chronic Current Visit: No (4) Hypertension Status: Chronic Current Visit: No (5) Type 2 diabetes mellitus Status: Chronic Current Visit: No (6) Chronic pain Status: Chronic Current Visit: Yes - Allergies/Procedures Done in Hospital Allergies/Adverse Reactions: Allergies sulfamethoxazole [From Bactrim] Allergy (Verified 11/24/17 23:04) Rash trimethoprim [From Bactrim] Allergy (Verified 11/24/17 23:04) Rash carbidopa [From Sinemet] Adverse Reaction (Verified 11/24/17 23:04) Nausea hydrocodone bitartrate [From Vicodin] Adverse Reaction (Verified 11/24/17 23:04) Nausea ketoprofen [From Orudis] Adverse Reaction (Verified 11/24/17 23:04) Unknown levodopa [From Sinemet] Adverse Reaction (Verified 11/24/17 23:04) Nausea lorazepam [From Ativan] Adverse Reaction (Verified 11/24/17 23:04) hallucination metformin HCl [From Glucophage] Adverse Reaction (Verified 11/24/17 23:04) Nausea naloxone Adverse Reaction (Verified 11/24/17 23:04) Nausea NSAIDS (Non-Steroidal Anti-Inflamma Adverse Reaction (Verified 12/16/19 15:31) PT UNSURE OF REACTION oxaprozin [From Daypro] Adverse Reaction (Verified 11/24/17 23:04) Nausea oxycodone HCl [From Percocet] Adverse Reaction (Verified 11/24/17 23:04) Nausea propoxyphene HCl [From Darvon] Adverse Reaction (Verified 11/24/17 23:04) Nausea rofecoxib [From Vioxx] Adverse Reaction (Verified 11/24/17 23:04) Nausea rosiglitazone maleate [From Avandia] Adverse Reaction (Verified 11/24/17 23:04) Nausea sertraline HCl [From Zoloft] Adverse Reaction (Verified 11/24/17 23:04) haullucination simvastatin [From Zocor] Adverse Reaction (Verified 11/24/17 23:04) Nausea venlafaxine HCl [From Effexor] Adverse Reaction (Verified 11/24/17 23:04) Nausea Procedures: None - Type of Care/Length of Stay Estimated LOS: More Than 30 Days Type of Care Needed: Intermediate Rehab Potential: Good Prognosis: Good - Additional Orders/Day of Discharge H&P will serve as current which was dated: 12/16/19 Day of Discharge: 12/18/19 - Follow Up Care Primary Care Physician: Basilio Flores MD [Primary Care Provider] - Please Follow Up With: Paul London MD When: next week
[2019-12-18 09:10] VITALS: BP 96/39; PULSE 60; RESP 18; TEMP 36.7; O2SAT 95
[2019-12-18] MEDS: Calcitriol 0.25 MCG Capsule 0.5 MCG PO (09:13)
--- NOTE | 2019-12-18 09:25 | CASEMGMT ---
MANAD faxed negative COVID test to [employer] along with [employer] COVID transfer form. Patient is going to be discharged today and her orders were started. MANDA called [facility] and arranged for patient to get picked up at 1130 via van. MANDA did let RN know, of tack picker time, however this may change if physician does not make it to PCU in time to sign papers. Anita JEWELL GAS CUTTING MACHINE OPERATOR
--- NOTE | 2019-12-18 09:53 | NURSING ---
This RN called and gave report to SWATHI Mcgill at [facility].
--- NOTE | 2019-12-18 10:05 | CASEMGMT ---
Patient is ready for discharge back to [place]. MANDA faxed negative COVID test to [place]. MANDA called [facility] and arranged for patient to get picked up at 1130 via van. MANDA notified patient, Jennifer at [facility], medical records secretary, and RN. MANDA also called patient's sister and left her a voice mail regarding d/c and time. MANDA faxed orders to [place]. Plan: d/c back to [place] under intermediate level of care. [place] is going to work on pre-cert to get patient approved for skilled. [facility] transported patient via [employer] van. Anita JEWELL AUTOMOTIVE PARTS COUNTERPERSON
[2019-12-18 11:21] LABS: Bedside Glucose 213 mg/dL (70-110)
--- NOTE | 2019-12-18 17:44 | DS.PCM_ITS ---
Discharge Date and Diagnosis - Problem List Patient Problems: Active and Suspected Problems (Last Updated 09/26/17 @ 15:50 by Selena Ortiz) Acute kidney injury superimposed on CKD (Acute) Date of Admission: 12/16/19 Date of Discharge: 12/18/19 - Primary Discharge Diagnosis Acute Problems: Active Problems (Last Updated 09/26/17 @ 15:50 by Selena Ortiz) #1 acute kidney injury on a backdrop of chronic kidney disease stage III #2 hyperkalemia-possibly secondary to EMLIIA inhibitor usage #3 type 2 diabetes #4 Parkinson's disease #5 essential hypertension #6 hyperlipidemia #7 paroxysmal atrial fibrillation - patient is currently in normal sinus rhythm #8 chronic pain syndrome - Secondary Discharge Diagnosis Chronic Problems: Chronic Problems (Last Updated 09/26/17 @ 15:50 by Selena Ortiz) Paroxysmal A-fib (Chronic) Chronic kidney disease (Chronic) Chronic pain (Chronic) Stage III chronic kidney disease (Chronic) GERD (gastroesophageal reflux disease) (Chronic) Hyperlipidemia (Chronic) Hypertension (Chronic) Type 2 diabetes mellitus (Chronic) Parkinsons disease (Chronic) Hospital Course and Treatment Operations: None Procedures: None Summary of Care Provided: The patient is a 79 year old F was seen in the emergency room at [facility] after being sent in from an extended care facility due to abnormal lab work. Patient had a history of chronic kidney disease stage III but lab work drawn the day she was seen in the emergency room showed a potassium of 6 and a creatinine of 5.65. Patient denied any symptoms in the emergency room such as palpitations, shortness of breath or chest discomfort. EKG showed mild T wave elevation compared to the previous EKG performed in 2014. Patient was admitted to PCU, she was given IV fluids and her labs were monitored. Her creatinine improved with IV fluids, she was given Kayexalate to lower her potassium. It was felt that the patient's use of an EMILIA inhibitor could have precipitated her elevated potassium. Patient stated that she had been working outside her longterm in the heat, this may have precipitated a rise in her creatinine-this is not known. On 12/18/2019, patient was seen and examined: On examination she appeared in good health and spirits, she does not appear to be in any distress. Vital signs as documented. Skin warm and dry and without overt rashes. Neck without JVD, thyroid appears normal, trachea is midline, neck is supple. Lungs clear, normal air movement was noted. Heart exam notable for regular rhythm, normal sounds and absence of murmurs, rubs or gallops. Abdomen unremarkable and without evidence of organomegaly, masses, or abdominal aortic enlargement, bowel sounds are present in all 4 quadrants, no abdominal tenderness was noted. Extremities nonedematous, no cyanosis was noted, no clubbing was noted. Neuro: Cranial nerves II through XII are grossly intact, no focal motor deficits were noted, sensation to light touch and pinprick is intact, motor exam 5/5 throughout. Psych: Patient is alert and oriented x3, she does not appear anxious or depr essed, she does not appear agitated. Patient was felt to be stable for discharge back to her extended care facility on 12/18/2019, I discussed her care with nephrology () and I also discussed her care with her PCP Dr. Flores by phone. Patient's EMILIA inhibitor was stopped at the time of her discharge from the hospital and her Bumex was decreased to once a day. Patient Problems: Active and Suspected Problems (Last Updated 09/26/17 @ 15:50 by Selena Ortiz) Acute kidney injury superimposed on CKD (Acute) - Physical Exam Vitals/I&O's: Vital Signs Temp Pulse Resp BP Pulse Ox 98.0 F 60 18 96/39 L 95 12/18/19 09:10 12/18/19 09:10 12/18/19 09:10 12/18/19 09:10 12/18/19 09:10 Oxygen Delivery Method Room Air Weight: 87.5 kg Body Mass Index (BMI) 34.7 Finger Stick Blood Glucose 309 Intake and Output for Last 24 Hours 12/16/19 12/17/19 12/18/19 23:59 23:59 23:59 Intake Total 1725.05 / 1725.05 3098.33 / 3498.33 2550 / 2550 Output Total 350 / 350 Balance 1725.05 / 1725.05 2748.33 / 3148.33 2550 / 2550 Laboratory Results 12/17/19 13:25: COVID-19 (DIAMANTE) Negative 12/17/19 20:53: POC Glucose 65 L 12/17/19 21:11: POC Glucose 63 L 12/17/19 21:51: POC Glucose 65 L 12/17/19 22:55: POC Glucose 187 H 12/18/19 05:45: Sodium 142, Potassium 4.6, Chloride 109 H, Carbon Dioxide 29.0, Anion Gap 4 L, BUN 43 H, Creatinine 1.84 H, Estim Creat Clear Calc 20.25, Est GFR (MDRD) Af Amer 34 L, Est GFR (MDRD) Non-Af 28 L, BUN/Creatinine Ratio 23.4 H , Glucose 79, Calcium 8.3 L 12/18/19 06:50: POC Glucose 102 12/18/19 08:06: POC Glucose 125 H 12/18/19 10:51: POC Glucose 213 H Home Medications: Medications to take at Discharge Acetaminophen [Tylenol Tablet] 650 mg PO TID 09/20/17 Atorvastatin Calcium [Lipitor] 10 mg PO QHS 12/16/19 Bacillus Coagulans/Inulin [Probiotic Formula Capsule] 1 cap PO DAILY 12/16/19 Calcitriol 0.5 mcg PO DAILY 12/16/19 Dulaglutide [Trulicity] 0.75 mg SQ TU 12/16/19 Famotidine 20 mg PO QHS 12/16/19 Gabapentin [Neurontin] 200 mg PO QHS 12/16/19 Insulin Aspart [Novolog Flexpen] 10 units SUBCUT DAILY@0900 12/16/19 Insulin Aspart [Novolog Flexpen] See Protocol SUBCUT TIDCM 12/16/19 Insulin Aspart [Novolog Vial] 12 unit SQ DAILY@1200 12/16/19 Insulin Aspart [Novolog Vial] 12 unit SQ DAILY@1700 12/16/19 Insulin Glargine,Hum.rec.anlog [Lantus] 40 unit SQ BID 12/16/19 Melatonin 3 mg PO QHS 12/16/19 Mirtazapine [Remeron] 15 mg PO QHS 12/16/19 Ropinirole HCl 2 mg PO TID 12/16/19 Bumetanide [Bumex] 2 mg PO DAILY #1 tab 12/18/19 Oxycodone HCl 10 mg PO TID 7 Days #20 tab 12/18/19 Following Prescriptions Were Given to Patient: Bumetanide [Bumex] 2 mg PO DAILY #1 tab Oxycodone HCl 10 mg PO TID 7 Days #20 tab Prescription Printed Primary Care Physician: Basilio Flores MD [Primary Care Provider] - Please Follow Up With: Paul London MD When: next week Disposition: Asstd Living/Non-Skill NH Minutes spent on discharge:: 31 Patient Condition:: Stable Medical Necessity - Tobacco Use Smoking Status: Never smoker Tobacco Use: Non-smoker Meaningful Use Info Meaningful Use Diagnoses (Choose all that apply): None applicable Inpatient E&M: 55627 Disch Hosp
== END 2019-12-18 11:35 | disposition skilled nursing facility (03) | DRG 683 ==
LOC: ED 16:13 → PCU 18:06
PROVIDERS: Admitting Provider Hospitalist; Emergency Provider Emergency Medicine; PCP Family Medicine; Visit Provider Internal Medicine
DX: I12.9 Hypertensive chronic kidney disease with stage 1 through stage 4 chronic kidney disease, or unspecified chronic kidney disease (principal); I48.20 Chronic atrial fibrillation, unspecified; N17.9 Acute kidney failure, unspecified; N18.3 Chronic kidney disease, stage 3 (moderate); E87.5 Hyperkalemia; K21.9 Gastro-esophageal reflux disease without esophagitis; E78.5 Hyperlipidemia, unspecified; E11.22 Type 2 diabetes mellitus with diabetic chronic kidney disease; I48.0 Paroxysmal atrial fibrillation; Z66 Do not resuscitate; G89.4 Chronic pain syndrome; G20 Parkinson's disease; Z79.4 Long term (current) use of insulin; Z85.51 Personal history of malignant neoplasm of bladder; Z80.8 Family history of malignant neoplasm of other organs or systems; Z82.3 Family history of stroke; Z82.49 Family history of ischemic heart disease and other diseases of the circulatory system; Z82.5 Family history of asthma and other chronic lower respiratory diseases; Z82.62 Family history of osteoporosis; Z83.3 Family history of diabetes mellitus; Z85.828 Personal history of other malignant neoplasm of skin; Z87.440 Personal history of urinary (tract) infections; Z51.5 Encounter for palliative care; R60.0 Localized edema
CPT/HCPCS: 36415; 76770; 80048; 81001; 82962; 83735; 84132; 84484; 85025; 87635; 93005; 94640; 94799; 97162; 97166; 97802; 99251; 99285; J7030; A4216; G0463; J0610; U0003

== ENCOUNTER → 2020-01-25 05:00 | Outpatient (REF) | payer MEDICARE, MEDICAID, SELFPAY ==
[2019-12-16 18:49] VITALS: BMI 34.7
[2020-01-25 08:57] LABS: Hematocrit 37.4 % (37-47); Hemoglobin 11.2 g/dL (12.0-15.0); Mean Corp Hgb Conc 29.9 g/dL (32-36); Mean Corpuscular Hgb 28.2 pg (27.0-32.0); Mean Corpuscular Volume 94.2 fL (81-99); Mean Platelet Vol. 10.6 fl (6.2-12.0); Platelet Count 248 K/mm3 (150-450); RBC Distribution Width CV 12.6 % (11.6-14.6); RBC Distribution Width SD 43.8 fl (35.1-43.9); Red Blood Count 3.97 M/mm3 (4.2-5.4); White Blood Count 6.7 K/mm3 (4.4-11.0)
== END ==
LOC: OLS.WHLEAS 05:00
PROVIDERS: PCP Family Medicine; Visit Provider Family Medicine
DX: G20 Parkinson's disease (principal); N17.9 Acute kidney failure, unspecified; N18.3 Chronic kidney disease, stage 3 (moderate); M62.81 Muscle weakness (generalized); R26.2 Difficulty in walking, not elsewhere classified; R27.8 Other lack of coordination
CPT/HCPCS: 36415; 85027

== ENCOUNTER → 2020-02-22 05:00 | Outpatient (REF) | payer MEDICARE, MEDICAID, SELFPAY ==
[2019-12-16 18:49] VITALS: BMI 34.7
[2020-02-22 07:51] LABS: Hematocrit 34.1 % (37-47); Hemoglobin 10.1 g/dL (12.0-15.0); Mean Corp Hgb Conc 29.6 g/dL (32-36); Mean Corpuscular Hgb 27.4 pg (27.0-32.0); Mean Corpuscular Volume 92.4 fL (81-99); Platelet Count 207 K/mm3 (150-450); RBC Distribution Width CV 12.3 % (11.6-14.6); RBC Distribution Width SD 41.3 fl (35.1-43.9); Red Blood Count 3.69 M/mm3 (4.2-5.4); White Blood Count 6.2 K/mm3 (4.4-11.0)
== END ==
LOC: OLS.WHLEAS 05:00
PROVIDERS: PCP Family Medicine; Visit Provider Family Medicine
DX: G20 Parkinson's disease (principal); N17.9 Acute kidney failure, unspecified; N18.30 Chronic kidney disease, stage 3 unspecified; M62.81 Muscle weakness (generalized); R26.2 Difficulty in walking, not elsewhere classified; R27.8 Other lack of coordination
CPT/HCPCS: 36415; 85027

== ENCOUNTER → 2020-03-07 05:00 | Outpatient (REF) | payer MEDICARE, MEDICAID, SELFPAY ==
[2019-12-16 18:49] VITALS: BMI 34.7
[2020-03-07 08:32] LABS: Anion Gap 5 (5-15); BUN 13 mg/dL (7-18); BUN/Creat Ratio 14.5 RATIO (10-20); Calcium,Total 9.6 mg/dL (8.5-10.1); Chloride 102 mmol/L (98-107); EST Glomerular Filtration Rate 65 mL/min (>60); Est Glom Filt Rate - Afr Amer 78 mL/min (>60); Glucose 111 mg/dL (74-106); Potassium 3.5 mmol/L (3.5-5.1); Sodium Level 140 mmol/L (136-145)
== END ==
LOC: OLS.WHLEAS 05:00
PROVIDERS: PCP Family Medicine; Visit Provider Family Medicine
DX: I12.9 Hypertensive chronic kidney disease with stage 1 through stage 4 chronic kidney disease, or unspecified chronic kidney disease (principal); N18.30 Chronic kidney disease, stage 3 unspecified; M62.81 Muscle weakness (generalized); R26.2 Difficulty in walking, not elsewhere classified; R27.8 Other lack of coordination
CPT/HCPCS: 36415; 80048

== ENCOUNTER → 2020-03-21 04:00 | Outpatient (REF) | payer MEDICARE, MEDICAID, SELFPAY ==
[2019-12-16 18:49] VITALS: BMI 34.7
[2020-03-21 07:37] LABS: Hemoglobin 11.8 g/dL (12.0-15.0); Mean Corp Hgb Conc 30.3 g/dL (32-36); Mean Corpuscular Hgb 27.1 pg (27.0-32.0); Mean Corpuscular Volume 89.4 fL (81-99); Mean Platelet Vol. 10.8 fl (6.2-12.0); Platelet Count 242 K/mm3 (150-450); RBC Distribution Width CV 12.9 % (11.6-14.6); RBC Distribution Width SD 42.5 fl (35.1-43.9); Red Blood Count 4.36 M/mm3 (4.2-5.4); White Blood Count 6.9 K/mm3 (4.4-11.0)
[2020-03-21 08:04] LABS: Cholesterol 137 mg/dL (200); High Density Lipoprotein 53 mg/dL; Triglycerides 70 mg/dL; Very Low Density Lipoprotein 14 mg/dL (5-40)
[2020-03-21 08:11] LABS: Hemoglobin A1c 7.6 % (3.8-5.6)
== END ==
LOC: OLS.WHLEAS 04:00
PROVIDERS: PCP Family Medicine; Referring Provider Family Medicine; Visit Provider Family Medicine
DX: G20 Parkinson's disease (principal); E11.22 Type 2 diabetes mellitus with diabetic chronic kidney disease; N18.30 Chronic kidney disease, stage 3 unspecified; M62.81 Muscle weakness (generalized); R26.2 Difficulty in walking, not elsewhere classified; R27.8 Other lack of coordination
CPT/HCPCS: 36415; 80061; 83036; 85027

== ENCOUNTER → 2020-05-09 05:00 | Outpatient (REF) | payer MEDICARE, MEDICAID, SELFPAY ==
[2019-12-16 18:49] VITALS: BMI 34.7
[2020-05-09 09:06] LABS: Anion Gap 6 (5-15); BUN 17 mg/dL (7-18); BUN/Creat Ratio 19.5 RATIO (10-20); Calcium,Total 9.3 mg/dL (8.5-10.1); Chloride 100 mmol/L (98-107); Creatinine, Serum 0.87 mg/dL (0.55-1.02); EST Glomerular Filtration Rate 67 mL/min (>60); Est Glom Filt Rate - Afr Amer 81 mL/min (>60); Glucose 114 mg/dL (74-106); Potassium 3.6 mmol/L (3.5-5.1); Sodium Level 139 mmol/L (136-145)
== END ==
LOC: OLS.WHLEAS 05:00
PROVIDERS: PCP Family Medicine; Visit Provider Family Medicine
DX: I12.9 Hypertensive chronic kidney disease with stage 1 through stage 4 chronic kidney disease, or unspecified chronic kidney disease (principal); N17.9 Acute kidney failure, unspecified; N18.30 Chronic kidney disease, stage 3 unspecified; M62.81 Muscle weakness (generalized); R26.2 Difficulty in walking, not elsewhere classified; R27.8 Other lack of coordination
CPT/HCPCS: 36415; 80048

== ENCOUNTER → 2020-05-11 05:00 | Outpatient (REF) | payer MEDICARE, MEDICAID, SELFPAY ==
[2019-12-16 18:49] VITALS: BMI 34.7
[2020-05-11 08:40] LABS: Anion Gap 4 (5-15); BUN 18 mg/dL (7-18); BUN/Creat Ratio 18.5 RATIO (10-20); Calcium,Total 9.4 mg/dL (8.5-10.1); Chloride 101 mmol/L (98-107); Creatinine, Serum 0.97 mg/dL (0.55-1.02); EST Glomerular Filtration Rate 59 mL/min (>60); Est Glom Filt Rate - Afr Amer 71 mL/min (>60); Glucose 288 mg/dL (74-106); Potassium 4.3 mmol/L (3.5-5.1); Sodium Level 138 mmol/L (136-145)
[2020-05-11 08:47] LABS: Protein, Urine (Random) 12.8 mg/dL (<11.9); Protein:Creat Ratio 135 mg/g CRE (0-200)
== END ==
LOC: OLS.WHLEAS 05:00
PROVIDERS: PCP Family Medicine; Visit Provider Family Medicine
DX: N18.30 Chronic kidney disease, stage 3 unspecified (principal); U07.1 COVID-19; G20 Parkinson's disease; M62.81 Muscle weakness (generalized); R26.2 Difficulty in walking, not elsewhere classified; R27.8 Other lack of coordination; Z74.1 Need for assistance with personal care
CPT/HCPCS: 36415; 80048; 82570; 84156

== ENCOUNTER → 2020-05-18 05:00 | Outpatient (REF) | payer MEDICARE, MEDICAID, SELFPAY ==
[2019-12-16 18:49] VITALS: BMI 34.7
[2020-05-18 08:10] LABS: ALB/GLOB Ratio 0.7 RATIO (0.9-2.4); AST(SGOT) 25 U/L (15-37); Alanine Aminotransfer ALT/SGPT 21 U/L (13-56); Albumin, Serum 3.3 g/dL (3.2-5.0); Alkaline Phosphatase 92 U/L (45-117); Anion Gap 4 (5-15); BUN 17 mg/dL (7-18); BUN/Creat Ratio 19.7 RATIO (10-20); Calcium,Total 9.1 mg/dL (8.5-10.1); Chloride 102 mmol/L (98-107); Cholesterol 142 mg/dL (200); Creatinine, Serum 0.86 mg/dL (0.55-1.02); EST Glomerular Filtration Rate 68 mL/min (>60); Est Glom Filt Rate - Afr Amer 82 mL/min (>60); Globulin 4.5 g/dL (2.2-4.2); Glucose 177 mg/dL (74-106); High Density Lipoprotein 53 mg/dL; Potassium 3.8 mmol/L (3.5-5.1); Protein, Total 7.8 g/dL (6.4-8.2); Sodium Level 137 mmol/L (136-145); Triglycerides 88 mg/dL; Very Low Density Lipoprotein 18 mg/dL (5-40)
== END ==
LOC: OLS.WHLEAS 05:00
PROVIDERS: PCP Family Medicine; Visit Provider Family Medicine
DX: I12.9 Hypertensive chronic kidney disease with stage 1 through stage 4 chronic kidney disease, or unspecified chronic kidney disease (principal); G20 Parkinson's disease; G89.4 Chronic pain syndrome; E11.22 Type 2 diabetes mellitus with diabetic chronic kidney disease; N18.9 Chronic kidney disease, unspecified; E11.21 Type 2 diabetes mellitus with diabetic nephropathy; I83.009 Varicose veins of unspecified lower extremity with ulcer of unspecified site
CPT/HCPCS: 36415; 80053; 80061

== ENCOUNTER → 2020-05-23 04:00 | Outpatient (REF) | payer MEDICARE, MEDICAID, SELFPAY ==
[2019-12-16 18:49] VITALS: BMI 34.7
[2020-05-23 07:23] LABS: Hematocrit 36.6 % (37-47); Hemoglobin 11.3 g/dL (12.0-15.0); Mean Corp Hgb Conc 30.9 g/dL (32-36); Mean Corpuscular Hgb 27.4 pg (27.0-32.0); Mean Corpuscular Volume 88.8 fL (81-99); Mean Platelet Vol. 11.2 fl (6.2-12.0); Platelet Count 171 K/mm3 (150-450); RBC Distribution Width CV 14.4 % (11.6-14.6); RBC Distribution Width SD 46.5 fl (35.1-43.9); Red Blood Count 4.12 M/mm3 (4.2-5.4); White Blood Count 5.9 K/mm3 (4.4-11.0)
== END ==
LOC: OLS.WHLEAS 04:00
PROVIDERS: PCP Family Medicine; Referring Provider Family Medicine; Visit Provider Family Medicine
DX: G20 Parkinson's disease (principal); N17.9 Acute kidney failure, unspecified; N18.30 Chronic kidney disease, stage 3 unspecified; M62.81 Muscle weakness (generalized); R26.2 Difficulty in walking, not elsewhere classified; R27.8 Other lack of coordination
CPT/HCPCS: 36415; 85027

== ENCOUNTER → 2020-06-20 05:00 | Outpatient (REF) | payer MEDICARE, MEDICAID, SELFPAY ==
[2019-12-16 18:49] VITALS: BMI 34.7
[2020-06-20 06:47] LABS: Hematocrit 35.7 % (37-47); Hemoglobin 11.3 g/dL (12.0-15.0); Mean Corp Hgb Conc 31.7 g/dL (32-36); Mean Corpuscular Volume 88.4 fL (81-99); Mean Platelet Vol. 10.8 fl (6.2-12.0); Platelet Count 173 K/mm3 (150-450); RBC Distribution Width CV 13.8 % (11.6-14.6); RBC Distribution Width SD 45.1 fl (35.1-43.9); Red Blood Count 4.04 M/mm3 (4.2-5.4); White Blood Count 5.1 K/mm3 (4.4-11.0)
[2020-06-20 07:14] LABS: Cholesterol 125 mg/dL (200); High Density Lipoprotein 45 mg/dL; Triglycerides 124 mg/dL; Very Low Density Lipoprotein 25 mg/dL (5-40)
[2020-06-20 07:48] LABS: Hemoglobin A1c 7.7 % (3.8-5.6)
== END ==
LOC: OLS.WHLEAS 05:00
PROVIDERS: PCP Family Medicine; Visit Provider Family Medicine
DX: E11.22 Type 2 diabetes mellitus with diabetic chronic kidney disease (principal); G20 Parkinson's disease; N18.30 Chronic kidney disease, stage 3 unspecified; M62.81 Muscle weakness (generalized); R26.2 Difficulty in walking, not elsewhere classified; R27.8 Other lack of coordination
CPT/HCPCS: 36415; 80061; 83036; 85027

== ENCOUNTER → 2020-07-04 05:00 | Outpatient (REF) | payer MEDICARE, MEDICAID, SELFPAY ==
[2019-12-16 18:49] VITALS: BMI 34.7
[2020-07-04 08:57] LABS: Anion Gap 6 (5-15); BUN 26 mg/dL (7-18); BUN/Creat Ratio 22.6 RATIO (10-20); Calcium,Total 9.5 mg/dL (8.5-10.1); Chloride 100 mmol/L (98-107); Creatinine, Serum 1.15 mg/dL (0.55-1.02); EST Glomerular Filtration Rate 49 mL/min (>60); Est Glom Filt Rate - Afr Amer 59 mL/min (>60); Glucose 268 mg/dL (74-106); Potassium 4.1 mmol/L (3.5-5.1); Sodium Level 137 mmol/L (136-145)
== END ==
LOC: OLS.WHLEAS 05:00
PROVIDERS: PCP Family Medicine; Visit Provider Family Medicine
DX: I10 Essential (primary) hypertension (principal); N17.9 Acute kidney failure, unspecified; G20 Parkinson's disease; M62.81 Muscle weakness (generalized); R26.2 Difficulty in walking, not elsewhere classified; R27.8 Other lack of coordination
CPT/HCPCS: 36415; 80048

== ENCOUNTER → 2020-07-18 05:00 | Outpatient (REF) | payer MEDICARE, MEDICAID, SELFPAY ==
[2019-12-16 18:49] VITALS: BMI 34.7
[2020-07-18 07:56] LABS: Hematocrit 38.1 % (37-47); Hemoglobin 11.8 g/dL (12.0-15.0); Mean Corpuscular Hgb 28.3 pg (27.0-32.0); Mean Corpuscular Volume 91.4 fL (81-99); Mean Platelet Vol. 10.4 fl (6.2-12.0); Platelet Count 174 K/mm3 (150-450); RBC Distribution Width CV 13.5 % (11.6-14.6); RBC Distribution Width SD 44.9 fl (35.1-43.9); Red Blood Count 4.17 M/mm3 (4.2-5.4); White Blood Count 6.5 K/mm3 (4.4-11.0)
[2020-07-18 08:20] LABS: Anion Gap 4 (5-15); BUN 22 mg/dL (7-18); BUN/Creat Ratio 23.5 RATIO (10-20); Calcium,Total 9.1 mg/dL (8.5-10.1); Chloride 100 mmol/L (98-107); Creatinine, Serum 0.94 mg/dL (0.55-1.02); EST Glomerular Filtration Rate 62 mL/min (>60); Est Glom Filt Rate - Afr Amer 74 mL/min (>60); Glucose 206 mg/dL (74-106); Potassium 3.5 mmol/L (3.5-5.1); Sodium Level 137 mmol/L (136-145)
== END ==
LOC: OLS.WHLEAS 05:00
PROVIDERS: PCP Family Medicine; Visit Provider Family Medicine
DX: G20 Parkinson's disease (principal); I12.9 Hypertensive chronic kidney disease with stage 1 through stage 4 chronic kidney disease, or unspecified chronic kidney disease; E11.22 Type 2 diabetes mellitus with diabetic chronic kidney disease; N17.9 Acute kidney failure, unspecified; N18.30 Chronic kidney disease, stage 3 unspecified; M62.81 Muscle weakness (generalized); R26.2 Difficulty in walking, not elsewhere classified; R27.8 Other lack of coordination; G89.4 Chronic pain syndrome
CPT/HCPCS: 36415; 80048; 85027

== ENCOUNTER → 2020-08-22 05:00 | Outpatient (REF) | payer MEDICARE, MEDICAID, SELFPAY ==
[2019-12-16 18:49] VITALS: BMI 34.7
[2020-08-22 08:23] LABS: Hematocrit 37.1 % (37-47); Hemoglobin 11.5 g/dL (12.0-15.0); Mean Corpuscular Hgb 28.5 pg (27.0-32.0); Mean Corpuscular Volume 91.8 fL (81-99); Mean Platelet Vol. 10.5 fl (6.2-12.0); Platelet Count 194 K/mm3 (150-450); RBC Distribution Width CV 13.4 % (11.6-14.6); RBC Distribution Width SD 46.1 fl (35.1-43.9); Red Blood Count 4.04 M/mm3 (4.2-5.4); White Blood Count 6.5 K/mm3 (4.4-11.0)
[2020-08-22 08:32] LABS: Protein, Urine (Random) 14.8 mg/dL (<11.9); Protein:Creat Ratio 106 mg/g CRE (0-200)
[2020-08-22 08:32] LABS: Anion Gap 4 (5-15); BUN 17 mg/dL (7-18); BUN/Creat Ratio 17.7 RATIO (10-20); Calcium,Total 9.5 mg/dL (8.5-10.1); Chloride 99 mmol/L (98-107); Creatinine, Serum 0.96 mg/dL (0.55-1.02); EST Glomerular Filtration Rate 60 mL/min (>60); Est Glom Filt Rate - Afr Amer 72 mL/min (>60); Glucose 267 mg/dL (74-106); Potassium 3.7 mmol/L (3.5-5.1); Sodium Level 136 mmol/L (136-145)
== END ==
LOC: OLS.WHLEAS 05:00
PROVIDERS: PCP Family Medicine; Visit Provider Family Medicine
DX: G20 Parkinson's disease (principal); E11.22 Type 2 diabetes mellitus with diabetic chronic kidney disease; N18.30 Chronic kidney disease, stage 3 unspecified; E11.21 Type 2 diabetes mellitus with diabetic nephropathy; M62.81 Muscle weakness (generalized); R26.2 Difficulty in walking, not elsewhere classified; R27.8 Other lack of coordination
CPT/HCPCS: 36415; 80048; 82570; 84156; 85027

== ENCOUNTER → 2020-09-19 05:50 | Outpatient (REF) | payer MEDICARE, MEDICAID, SELFPAY ==
[2019-12-16 18:49] VITALS: BMI 34.7
[2020-09-19 07:20] LABS: Hematocrit 38.6 % (37-47); Mean Corp Hgb Conc 31.1 g/dL (32-36); Mean Corpuscular Hgb 28.6 pg (27.0-32.0); Mean Corpuscular Volume 91.9 fL (81-99); Mean Platelet Vol. 10.5 fl (6.2-12.0); Platelet Count 220 K/mm3 (150-450); RBC Distribution Width CV 13.5 % (11.6-14.6); RBC Distribution Width SD 45.8 fl (35.1-43.9); White Blood Count 6.4 K/mm3 (4.4-11.0)
[2020-09-19 07:34] LABS: Anion Gap 3 (5-15); BUN 15 mg/dL (7-18); BUN/Creat Ratio 15.9 RATIO (10-20); Calcium,Total 9.7 mg/dL (8.5-10.1); Chloride 102 mmol/L (98-107); Cholesterol 144 mg/dL (200); Creatinine, Serum 0.94 mg/dL (0.55-1.02); EST Glomerular Filtration Rate 61 mL/min (>60); Est Glom Filt Rate - Afr Amer 74 mL/min (>60); Glucose 196 mg/dL (74-106); High Density Lipoprotein 58 mg/dL; Potassium 3.4 mmol/L (3.5-5.1); Sodium Level 138 mmol/L (136-145); Triglycerides 85 mg/dL; Very Low Density Lipoprotein 17 mg/dL (5-40)
[2020-09-19 07:59] LABS: Hemoglobin A1c 7.2 % (3.8-5.6)
== END ==
LOC: OLS.WHLEAS 05:50
PROVIDERS: Visit Provider Family Medicine
DX: I10 Essential (primary) hypertension (principal); G20 Parkinson's disease; M62.81 Muscle weakness (generalized); R26.2 Difficulty in walking, not elsewhere classified; R27.8 Other lack of coordination; G89.4 Chronic pain syndrome; E11.22 Type 2 diabetes mellitus with diabetic chronic kidney disease; Z74.1 Need for assistance with personal care
CPT/HCPCS: 36415; 80048; 80061; 83036; 85027

== ENCOUNTER → 2020-10-24 05:00 | Outpatient (REF) | payer MEDICARE, MEDICAID, SELFPAY ==
[2019-12-16 18:49] VITALS: BMI 34.7
[2020-10-24 09:17] LABS: Hematocrit 36.3 % (37-47); Hemoglobin 10.9 g/dL (12.0-15.0); Mean Corpuscular Hgb 28.4 pg (27.0-32.0); Mean Corpuscular Volume 94.5 fL (81-99); Mean Platelet Vol. 10.9 fl (6.2-12.0); Platelet Count 173 K/mm3 (150-450); RBC Distribution Width CV 13.2 % (11.6-14.6); RBC Distribution Width SD 45.1 fl (35.1-43.9); Red Blood Count 3.84 M/mm3 (4.2-5.4); White Blood Count 5.6 K/mm3 (4.4-11.0)
== END ==
LOC: OLS.WHLEAS 05:00
PROVIDERS: Visit Provider Family Medicine
DX: G20 Parkinson's disease (principal); N17.9 Acute kidney failure, unspecified; N18.30 Chronic kidney disease, stage 3 unspecified; M62.81 Muscle weakness (generalized); R26.2 Difficulty in walking, not elsewhere classified; R27.8 Other lack of coordination
CPT/HCPCS: 36415; 85027

== ENCOUNTER → 2020-11-21 04:00 | Outpatient (REF) | payer MEDICARE, MEDICAID, SELFPAY ==
[2019-12-16 18:49] VITALS: BMI 34.7
[2020-11-21 07:53] LABS: Hematocrit 38.5 % (37-47); Hemoglobin 12.1 g/dL (12.0-15.0); Mean Corp Hgb Conc 31.4 g/dL (32-36); Mean Corpuscular Hgb 28.8 pg (27.0-32.0); Mean Corpuscular Volume 91.7 fL (81-99); Mean Platelet Vol. 11.1 fl (6.2-12.0); Platelet Count 165 K/mm3 (150-450); RBC Distribution Width CV 13.1 % (11.6-14.6); RBC Distribution Width SD 43.7 fl (35.1-43.9); White Blood Count 6.9 K/mm3 (4.4-11.0)
[2020-11-21 08:04] LABS: Anion Gap 5 (5-15); BUN 24 mg/dL (7-18); BUN/Creat Ratio 23.1 RATIO (10-20); Calcium,Total 9.4 mg/dL (8.5-10.1); Chloride 99 mmol/L (98-107); Creatinine, Serum 1.04 mg/dL (0.55-1.02); EST Glomerular Filtration Rate 54 mL/min (>60); Est Glom Filt Rate - Afr Amer 66 mL/min (>60); Glucose 229 mg/dL (74-106); Potassium 3.3 mmol/L (3.5-5.1); Sodium Level 139 mmol/L (136-145)
== END ==
LOC: OLS.WHLEAS 04:00
PROVIDERS: Referring Provider Family Medicine; Visit Provider Family Medicine
DX: I12.9 Hypertensive chronic kidney disease with stage 1 through stage 4 chronic kidney disease, or unspecified chronic kidney disease (principal); G20 Parkinson's disease; M62.81 Muscle weakness (generalized); R26.2 Difficulty in walking, not elsewhere classified; R27.8 Other lack of coordination; G89.4 Chronic pain syndrome; E11.22 Type 2 diabetes mellitus with diabetic chronic kidney disease; N18.9 Chronic kidney disease, unspecified; Z74.1 Need for assistance with personal care
CPT/HCPCS: 36415; 80048; 85027

== ENCOUNTER → 2020-12-19 05:00 | Outpatient (REF) | payer MEDICARE, MEDICAID, SELFPAY ==
[2019-12-16 18:49] VITALS: BMI 34.7
[2020-12-19 07:20] LABS: Hematocrit 37.5 % (37-47); Mean Corpuscular Hgb 29.2 pg (27.0-32.0); Mean Corpuscular Volume 91.2 fL (81-99); Mean Platelet Vol. 10.8 fl (6.2-12.0); Platelet Count 175 K/mm3 (150-450); RBC Distribution Width CV 13.3 % (11.6-14.6); Red Blood Count 4.11 M/mm3 (4.2-5.4); White Blood Count 6.1 K/mm3 (4.4-11.0)
[2020-12-19 07:36] LABS: ALB/GLOB Ratio 0.8 RATIO (0.9-2.4); AST(SGOT) 20 U/L (15-37); Alanine Aminotransfer ALT/SGPT 25 U/L (13-56); Albumin, Serum 3.2 g/dL (3.2-5.0); Alkaline Phosphatase 88 U/L (45-117); Anion Gap 6 (5-15); BUN 14 mg/dL (7-18); Calcium,Total 9.1 mg/dL (8.5-10.1); Chloride 99 mmol/L (98-107); Cholesterol 143 mg/dL (200); EST Glomerular Filtration Rate 57 mL/min (>60); Est Glom Filt Rate - Afr Amer 69 mL/min (>60); Globulin 3.8 g/dL (2.2-4.2); Glucose 368 mg/dL (74-106); High Density Lipoprotein 53 mg/dL; Potassium 3.8 mmol/L (3.5-5.1); Sodium Level 138 mmol/L (136-145); Triglycerides 126 mg/dL; Very Low Density Lipoprotein 25 mg/dL (5-40)
[2020-12-19 08:18] LABS: Hemoglobin A1c 8.9 % (3.8-5.6)
== END ==
LOC: OLS.WHLEAS 05:00
PROVIDERS: Visit Provider Family Medicine
DX: G20 Parkinson's disease (principal); N17.9 Acute kidney failure, unspecified; M62.81 Muscle weakness (generalized); R26.2 Difficulty in walking, not elsewhere classified; R27.8 Other lack of coordination; E11.22 Type 2 diabetes mellitus with diabetic chronic kidney disease; I12.9 Hypertensive chronic kidney disease with stage 1 through stage 4 chronic kidney disease, or unspecified chronic kidney disease; N18.30 Chronic kidney disease, stage 3 unspecified; E78.5 Hyperlipidemia, unspecified
CPT/HCPCS: 36415; 80053; 80061; 83036; 85027

== ENCOUNTER → 2021-01-23 05:00 | Outpatient (REF) | payer MEDICARE, MEDICAID, SELFPAY ==
[2021-01-23 08:43] LABS: Hematocrit 35.7 % (37-47); Hemoglobin 11.2 g/dL (12.0-15.0); Mean Corp Hgb Conc 31.4 g/dL (32-36); Mean Corpuscular Hgb 28.9 pg (27.0-32.0); Mean Platelet Vol. 10.9 fl (6.2-12.0); Platelet Count 151 K/mm3 (150-450); RBC Distribution Width CV 13.2 % (11.6-14.6); RBC Distribution Width SD 44.1 fl (35.1-43.9); Red Blood Count 3.88 M/mm3 (4.2-5.4); White Blood Count 6.1 K/mm3 (4.4-11.0)
[2021-01-23 08:53] LABS: Anion Gap 5 (5-15); BUN 18 mg/dL (7-18); BUN/Creat Ratio 22.4 RATIO (10-20); Calcium,Total 9.4 mg/dL (8.5-10.1); Chloride 103 mmol/L (98-107); EST Glomerular Filtration Rate 73 mL/min (>60); Est Glom Filt Rate - Afr Amer 89 mL/min (>60); Glucose 214 mg/dL (74-106); Potassium 3.4 mmol/L (3.5-5.1); Sodium Level 141 mmol/L (136-145)
== END ==
LOC: OLS.WHLEAS 05:00
PROVIDERS: PCP Family Medicine; Visit Provider Family Medicine
DX: I12.9 Hypertensive chronic kidney disease with stage 1 through stage 4 chronic kidney disease, or unspecified chronic kidney disease (principal); G20 Parkinson's disease; M62.81 Muscle weakness (generalized); R26.2 Difficulty in walking, not elsewhere classified; R27.8 Other lack of coordination; G89.4 Chronic pain syndrome; E11.22 Type 2 diabetes mellitus with diabetic chronic kidney disease; N18.9 Chronic kidney disease, unspecified; Z74.1 Need for assistance with personal care
CPT/HCPCS: 36415; 80048; 85027

== ENCOUNTER → 2021-02-20 05:00 | Outpatient (REF) | payer MEDICARE, MEDICAID, SELFPAY ==
[2021-02-20 06:29] LABS: Hematocrit 37.5 % (37-47); Hemoglobin 11.7 g/dL (12.0-15.0); Mean Corp Hgb Conc 31.2 g/dL (32-36); Mean Corpuscular Volume 92.8 fL (81-99); Mean Platelet Vol. 11.2 fl (6.2-12.0); Platelet Count 157 K/mm3 (150-450); RBC Distribution Width SD 44.6 fl (35.1-43.9); Red Blood Count 4.04 M/mm3 (4.2-5.4); White Blood Count 6.2 K/mm3 (4.4-11.0)
== END ==
LOC: OLS.WHLEAS 05:00
PROVIDERS: PCP Family Medicine; Visit Provider Family Medicine
DX: G20 Parkinson's disease (principal); N17.9 Acute kidney failure, unspecified; N18.30 Chronic kidney disease, stage 3 unspecified; M62.81 Muscle weakness (generalized); R26.2 Difficulty in walking, not elsewhere classified; R27.8 Other lack of coordination
CPT/HCPCS: 36415; 85027

== ENCOUNTER → 2021-02-21 05:00 | Outpatient (REF) | payer MEDICARE, MEDICAID, SELFPAY ==
[2021-02-21 09:13] LABS: Albumin, Serum 2.6 g/dL (3.2-5.0); BUN 9 mg/dL (7-18); BUN/Creat Ratio 11.6 RATIO (10-20); Calcium,Total 8.6 mg/dL (8.5-10.1); Chloride 101 mmol/L (98-107); Creatinine, Serum 0.78 mg/dL (0.55-1.02); EST Glomerular Filtration Rate 76 mL/min (>60); Est Glom Filt Rate - Afr Amer 92 mL/min (>60); Glucose 188 mg/dL (74-106); Phosphorus 2.7 mg/dL (2.5-4.9); Potassium 3.5 mmol/L (3.5-5.1); Sodium Level 141 mmol/L (136-145)
[2021-02-21 09:37] LABS: Microalbumin,Random Urine 35.5 mg/L (NO RANGE EST.); Microalbumin:Creatinine Ratio 24.7 mg/g CRE (<30 mg/g CRE)
[2021-02-21 10:03] LABS: PTHIN 86.5 pg/mL (18.4-80.1)
[2021-02-21 10:06] LABS: Vitamin D,25 Hydroxy 11.7 ng/mL
== END ==
LOC: OLS.WHLEAS 05:00
PROVIDERS: PCP Family Medicine; Visit Provider Family Medicine
DX: E11.22 Type 2 diabetes mellitus with diabetic chronic kidney disease (principal); N18.30 Chronic kidney disease, stage 3 unspecified; G20 Parkinson's disease; G89.4 Chronic pain syndrome; E11.21 Type 2 diabetes mellitus with diabetic nephropathy; E56.9 Vitamin deficiency, unspecified
CPT/HCPCS: 36415; 80069; 82043; 82306; 82570; 83970

== ENCOUNTER → 2021-03-20 04:00 | Outpatient (REF) | payer MEDICARE, MEDICAID, SELFPAY ==
[2021-03-20 06:41] LABS: Mean Corp Hgb Conc 30.8 g/dL (32-36); Mean Corpuscular Volume 90.9 fL (81-99); Mean Platelet Vol. 10.9 fl (6.2-12.0); Platelet Count 202 K/mm3 (150-450); RBC Distribution Width CV 13.2 % (11.6-14.6); RBC Distribution Width SD 43.8 fl (35.1-43.9); Red Blood Count 4.29 M/mm3 (4.2-5.4); White Blood Count 7.1 K/mm3 (4.4-11.0)
[2021-03-20 07:12] LABS: Anion Gap 5 (5-15); BUN 15 mg/dL (7-18); BUN/Creat Ratio 15.5 RATIO (10-20); Calcium,Total 9.3 mg/dL (8.5-10.1); Chloride 102 mmol/L (98-107); Cholesterol 130 mg/dL (200); Creatinine, Serum 0.97 mg/dL (0.55-1.02); EST Glomerular Filtration Rate 59 mL/min (>60); Est Glom Filt Rate - Afr Amer 71 mL/min (>60); Glucose 129 mg/dL (74-106); High Density Lipoprotein 51 mg/dL; Potassium 3.7 mmol/L (3.5-5.1); Sodium Level 139 mmol/L (136-145); Triglycerides 130 mg/dL; Very Low Density Lipoprotein 26 mg/dL (5-40)
[2021-03-20 08:18] LABS: Hemoglobin A1c 7.4 % (3.8-5.6)
== END ==
LOC: OLS.WHLEAS 04:00
PROVIDERS: PCP Family Medicine; Visit Provider Family Medicine
DX: G20 Parkinson's disease (principal); N17.9 Acute kidney failure, unspecified; I12.9 Hypertensive chronic kidney disease with stage 1 through stage 4 chronic kidney disease, or unspecified chronic kidney disease; E11.22 Type 2 diabetes mellitus with diabetic chronic kidney disease; N18.30 Chronic kidney disease, stage 3 unspecified; M62.81 Muscle weakness (generalized); R26.2 Difficulty in walking, not elsewhere classified; R27.8 Other lack of coordination
CPT/HCPCS: 36415; 80048; 80061; 83036; 85027

== ENCOUNTER 2021-04-24 05:00 | Outpatient (REF) | payer MEDICARE, MEDICAID, SELFPAY ==
[2021-04-24 06:53] LABS: Hematocrit 41.3 % (37-47); Hemoglobin 12.6 g/dL (12.0-15.0); Mean Corp Hgb Conc 30.5 g/dL (32-36); Mean Corpuscular Hgb 28.1 pg (27.0-32.0); Mean Corpuscular Volume 92.2 fL (81-99); Mean Platelet Vol. 10.7 fl (6.2-12.0); Platelet Count 189 K/mm3 (150-450); RBC Distribution Width CV 13.2 % (11.6-14.6); RBC Distribution Width SD 45.3 fl (35.1-43.9); Red Blood Count 4.48 M/mm3 (4.2-5.4); White Blood Count 5.6 K/mm3 (4.4-11.0)
== END 2021-04-24 23:59 | disposition home or self-care (01) ==
LOC: OLS.WHLEAS 05:00
PROVIDERS: PCP Family Medicine; Visit Provider Family Medicine
DX: G20 Parkinson's disease (principal); N17.9 Acute kidney failure, unspecified; N18.30 Chronic kidney disease, stage 3 unspecified; M62.81 Muscle weakness (generalized); R26.2 Difficulty in walking, not elsewhere classified; R27.8 Other lack of coordination
CPT/HCPCS: 36415; 85027

== ENCOUNTER → 2021-07-12 | Outpatient (REF) | payer MEDICARE, MEDICAID, SELFPAY ==
[2021-07-12 08:22] LABS: Hematocrit 39.9 % (37-47); Hemoglobin 12.5 g/dL (12.0-15.0); Mean Corp Hgb Conc 31.3 g/dL (32-36); Mean Corpuscular Hgb 28.4 pg (27.0-32.0); Mean Corpuscular Volume 90.7 fL (81-99); Platelet Count 188 K/mm3 (150-450); RBC Distribution Width CV 12.8 % (11.6-14.6); RBC Distribution Width SD 42.3 fl (35.1-43.9); White Blood Count 6.1 K/mm3 (4.4-11.0)
[2021-07-12 08:36] LABS: Albumin, Serum 3.2 g/dL (3.2-5.0); BUN 15 mg/dL (7-18); BUN/Creat Ratio 14.2 RATIO (10-20); Calcium,Total 9.8 mg/dL (8.5-10.1); Chloride 99 mmol/L (98-107); Creatinine, Serum 1.06 mg/dL (0.55-1.02); EST Glomerular Filtration Rate 53 mL/min (>60); Est Glom Filt Rate - Afr Amer 64 mL/min (>60); Glucose 311 mg/dL (74-106); Phosphorus 3.6 mg/dL (2.5-4.9); Potassium 3.7 mmol/L (3.5-5.1); Sodium Level 139 mmol/L (136-145)
== END | disposition home or self-care (01) ==
LOC: OLS.WHLEAS 04:00
PROVIDERS: PCP Family Medicine; Referring Provider Family Medicine; Visit Provider Family Medicine
DX: E11.22 Type 2 diabetes mellitus with diabetic chronic kidney disease (principal); G20 Parkinson's disease; E11.21 Type 2 diabetes mellitus with diabetic nephropathy; E21.3 Hyperparathyroidism, unspecified; N18.30 Chronic kidney disease, stage 3 unspecified; G89.4 Chronic pain syndrome
CPT/HCPCS: 36415; 80069; 82306; 83970; 85027

== ENCOUNTER → 2021-08-08 | Outpatient (REF) | payer MEDICARE, MEDICAID, SELFPAY ==
[2021-08-08 07:24] LABS: Hematocrit 36.6 % (37-47); Hemoglobin 11.5 g/dL (12.0-15.0); Mean Corp Hgb Conc 31.4 g/dL (32-36); Mean Corpuscular Hgb 28.8 pg (27.0-32.0); Mean Corpuscular Volume 91.7 fL (81-99); Platelet Count 155 K/mm3 (150-450); RBC Distribution Width CV 12.7 % (11.6-14.6); Red Blood Count 3.99 M/mm3 (4.2-5.4); White Blood Count 5.6 K/mm3 (4.4-11.0)
[2021-08-08 07:55] LABS: ALB/GLOB Ratio 0.8 RATIO (0.9-2.4); AST(SGOT) 15 U/L (15-37); Alanine Aminotransfer ALT/SGPT 17 U/L (13-56); Alkaline Phosphatase 85 U/L (45-117); Anion Gap 4 (5-15); BUN 13 mg/dL (7-18); BUN/Creat Ratio 12.7 RATIO (10-20); Calcium,Total 9.3 mg/dL (8.5-10.1); Chloride 102 mmol/L (98-107); Creatinine, Serum 1.02 mg/dL (0.55-1.02); EST Glomerular Filtration Rate 56 mL/min (>60); Est Glom Filt Rate - Afr Amer 67 mL/min (>60); Globulin 3.8 g/dL (2.2-4.2); Glucose 358 mg/dL (74-106); Potassium 3.3 mmol/L (3.5-5.1); Protein, Total 6.8 g/dL (6.4-8.2); Sodium Level 139 mmol/L (136-145)
== END | disposition home or self-care (01) ==
LOC: OLS.WHLEAS 05:00
PROVIDERS: PCP Family Medicine; Visit Provider Family Medicine
DX: E11.22 Type 2 diabetes mellitus with diabetic chronic kidney disease (principal); G20 Parkinson's disease; E11.21 Type 2 diabetes mellitus with diabetic nephropathy; N18.30 Chronic kidney disease, stage 3 unspecified; G89.4 Chronic pain syndrome
CPT/HCPCS: 36415; 80053; 85027

== ENCOUNTER → 2021-09-05 | Outpatient (REF) | payer MEDICARE, MEDICAID, SELFPAY ==
[2021-09-05 08:34] LABS: Vitamin D,25 Hydroxy 44.4 ng/mL
[2021-09-05 09:41] LABS: Hemoglobin A1c 8.3 % (3.8-5.6)
== END | disposition home or self-care (01) ==
LOC: OLS.WHLEAS 05:00
PROVIDERS: PCP Family Medicine; Visit Provider Family Medicine
DX: G20 Parkinson's disease (principal); E11.22 Type 2 diabetes mellitus with diabetic chronic kidney disease; E11.21 Type 2 diabetes mellitus with diabetic nephropathy; N18.30 Chronic kidney disease, stage 3 unspecified; G89.4 Chronic pain syndrome; M15.0 Primary generalized (osteo)arthritis
CPT/HCPCS: 36415; 82306; 83036

== ENCOUNTER → 2021-10-05 | Outpatient (REF) | payer MEDICARE, MEDICAID, SELFPAY ==
[2021-10-05 10:29] LABS: Cholesterol 130 mg/dL (200); High Density Lipoprotein 47 mg/dL; Triglycerides 77 mg/dL; Very Low Density Lipoprotein 15 mg/dL (5-40)
[2021-10-06 09:14] LABS: Hematocrit 37.4 % (37-47); Hemoglobin 11.5 g/dL (12.0-15.0); Mean Corp Hgb Conc 30.7 g/dL (32-36); Mean Corpuscular Hgb 28.7 pg (27.0-32.0); Mean Corpuscular Volume 93.3 fL (81-99); Mean Platelet Vol. 11.3 fl (6.2-12.0); Platelet Count 164 K/mm3 (150-450); RBC Distribution Width CV 13.2 % (11.6-14.6); RBC Distribution Width SD 44.9 fl (35.1-43.9); Red Blood Count 4.01 M/mm3 (4.2-5.4); White Blood Count 5.7 K/mm3 (4.4-11.0)
[2021-10-06 09:24] LABS: ALB/GLOB Ratio 1.1 RATIO (0.9-2.4); AST(SGOT) 18 U/L (15-37); Alanine Aminotransfer ALT/SGPT 16 U/L (13-56); Albumin, Serum 3.3 g/dL (3.2-5.0); Alkaline Phosphatase 80 U/L (45-117); Anion Gap 11 (5-15); BUN 18 mg/dL (7-18); BUN/Creat Ratio 17.1 RATIO (10-20); Calcium,Total 8.8 mg/dL (8.5-10.1); Chloride 105 mmol/L (98-107); Creatinine, Serum 1.05 mg/dL (0.55-1.02); EST Glomerular Filtration Rate 54 mL/min (>60); Est Glom Filt Rate - Afr Amer 65 mL/min (>60); Globulin 3.1 g/dL (2.2-4.2); Glucose 127 mg/dL (74-106); Potassium 3.7 mmol/L (3.5-5.1); Protein, Total 6.4 g/dL (6.4-8.2); Sodium Level 145 mmol/L (136-145)
== END | disposition home or self-care (01) ==
LOC: OLS.WHLEAS 05:00
PROVIDERS: PCP Family Medicine; Referring Provider Family Medicine; Visit Provider Family Medicine
DX: E11.22 Type 2 diabetes mellitus with diabetic chronic kidney disease (principal); G20 Parkinson's disease; E11.21 Type 2 diabetes mellitus with diabetic nephropathy; N18.30 Chronic kidney disease, stage 3 unspecified; G89.4 Chronic pain syndrome
CPT/HCPCS: 36415; 80053; 80061; 85027

== ENCOUNTER → 2021-10-17 | Outpatient (REF) | payer MEDICARE, MEDICAID, SELFPAY ==
[2021-10-17 08:47] LABS: Hemoglobin A1c 7.7 % (3.8-5.6)
== END | disposition home or self-care (01) ==
LOC: OLS.WHLEAS 05:00
PROVIDERS: PCP Family Medicine; Visit Provider Family Medicine
DX: G20 Parkinson's disease (principal); E11.22 Type 2 diabetes mellitus with diabetic chronic kidney disease; E11.21 Type 2 diabetes mellitus with diabetic nephropathy; N18.30 Chronic kidney disease, stage 3 unspecified; G89.4 Chronic pain syndrome; E56.9 Vitamin deficiency, unspecified
CPT/HCPCS: 36415; 83036

== ENCOUNTER → 2021-11-14 | Outpatient (REF) | payer MEDICARE, MEDICAID, SELFPAY ==
[2021-11-14 09:47] LABS: Hemoglobin A1c 8.5 % (3.8-5.6)
== END | disposition home or self-care (01) ==
LOC: OLS.WHLEAS 05:00
PROVIDERS: PCP Family Medicine; Visit Provider Family Medicine
DX: E11.22 Type 2 diabetes mellitus with diabetic chronic kidney disease (principal); G20 Parkinson's disease; E11.21 Type 2 diabetes mellitus with diabetic nephropathy; N18.30 Chronic kidney disease, stage 3 unspecified; G89.4 Chronic pain syndrome
CPT/HCPCS: 36415; 83036

== ENCOUNTER → 2021-12-05 | Outpatient (REF) | payer MEDICARE, MEDICAID, SELFPAY ==
[2021-12-05 07:59] LABS: Hematocrit 38.1 % (37-47); Hemoglobin 11.9 g/dL (12.0-15.0); Mean Corp Hgb Conc 31.2 g/dL (32-36); Mean Corpuscular Hgb 28.9 pg (27.0-32.0); Mean Corpuscular Volume 92.5 fL (81-99); Mean Platelet Vol. 10.9 fl (6.2-12.0); Platelet Count 162 K/mm3 (150-450); RBC Distribution Width CV 13.4 % (11.6-14.6); RBC Distribution Width SD 45.8 fl (35.1-43.9); Red Blood Count 4.12 M/mm3 (4.2-5.4)
[2021-12-05 08:13] LABS: Vitamin D,25 Hydroxy 90.8 ng/mL
[2021-12-05 08:24] LABS: ALB/GLOB Ratio 0.9 RATIO (0.9-2.4); AST(SGOT) 18 U/L (15-37); Alanine Aminotransfer ALT/SGPT 17 U/L (13-56); Albumin, Serum 3.1 g/dL (3.2-5.0); Alkaline Phosphatase 86 U/L (45-117); Anion Gap 2 (5-15); BUN 13 mg/dL (7-18); BUN/Creat Ratio 14.5 RATIO (10-20); Calcium,Total 9.3 mg/dL (8.5-10.1); Chloride 106 mmol/L (98-107); EST Glomerular Filtration Rate 64 mL/min (>60); Est Glom Filt Rate - Afr Amer 78 mL/min (>60); Globulin 3.6 g/dL (2.2-4.2); Glucose 149 mg/dL (74-106); Potassium 3.6 mmol/L (3.5-5.1); Protein, Total 6.7 g/dL (6.4-8.2); Sodium Level 142 mmol/L (136-145)
[2021-12-05 14:27] LABS: Hemoglobin A1c 7.4 % (3.8-5.6)
== END ==
LOC: OLS.WHLEAS 05:00
PROVIDERS: PCP Family Medicine; Visit Provider Family Medicine
DX: E11.22 Type 2 diabetes mellitus with diabetic chronic kidney disease (principal); N18.30 Chronic kidney disease, stage 3 unspecified; G20 Parkinson's disease; E11.21 Type 2 diabetes mellitus with diabetic nephropathy; G89.4 Chronic pain syndrome
CPT/HCPCS: 36415; 80053; 82306; 83036; 85027

== ENCOUNTER → 2022-02-06 | Outpatient (REF) | payer MEDICARE, MEDICAID, SELFPAY ==
[2022-02-06 09:20] LABS: Hematocrit 41.6 % (37-47); Hemoglobin 13.1 g/dL (12.0-15.0); Mean Corp Hgb Conc 31.5 g/dL (32-36); Mean Corpuscular Hgb 29.4 pg (27.0-32.0); Mean Corpuscular Volume 93.3 fL (81-99); Mean Platelet Vol. 10.5 fl (6.2-12.0); Platelet Count 176 K/mm3 (150-450); RBC Distribution Width CV 13.5 % (11.6-14.6); RBC Distribution Width SD 46.5 fl (35.1-43.9); Red Blood Count 4.46 M/mm3 (4.2-5.4); White Blood Count 5.8 K/mm3 (4.4-11.0)
[2022-02-06 09:44] LABS: AST(SGOT) 20 U/L (15-37); Alanine Aminotransfer ALT/SGPT 22 U/L (13-56); Albumin, Serum 3.6 g/dL (3.2-5.0); Alkaline Phosphatase 96 U/L (45-117); Anion Gap 6 (5-15); BUN 21 mg/dL (7-18); BUN/Creat Ratio 20.2 RATIO (10-20); Calcium,Total 9.5 mg/dL (8.5-10.1); Chloride 102 mmol/L (98-107); Creatinine, Serum 1.04 mg/dL (0.55-1.02); EST Glomerular Filtration Rate 54 mL/min (>60); Est Glom Filt Rate - Afr Amer 66 mL/min (>60); Globulin 3.7 g/dL (2.2-4.2); Glucose 198 mg/dL (74-106); Potassium 4.3 mmol/L (3.5-5.1); Protein, Total 7.3 g/dL (6.4-8.2); Sodium Level 140 mmol/L (136-145)
== END ==
LOC: OLS.WHLEAS 05:00
PROVIDERS: PCP Family Medicine; Visit Provider Family Medicine
DX: G20 Parkinson's disease (principal); E11.22 Type 2 diabetes mellitus with diabetic chronic kidney disease; E11.21 Type 2 diabetes mellitus with diabetic nephropathy; N18.30 Chronic kidney disease, stage 3 unspecified; G89.4 Chronic pain syndrome
CPT/HCPCS: 36415; 80053; 85027

== ENCOUNTER → 2022-03-06 | Outpatient (REF) | payer MEDICARE, MEDICAID, SELFPAY ==
[2022-03-06 09:10] LABS: Vitamin D,25 Hydroxy 57.1 ng/mL
[2022-03-06 09:15] LABS: Hemoglobin A1c 7.4 % (3.8-5.6)
== END ==
LOC: OLS.WHLEAS 05:00
PROVIDERS: PCP Family Medicine; Visit Provider Family Medicine
DX: E11.22 Type 2 diabetes mellitus with diabetic chronic kidney disease (principal); E11.21 Type 2 diabetes mellitus with diabetic nephropathy; N18.30 Chronic kidney disease, stage 3 unspecified; G20 Parkinson's disease; G89.4 Chronic pain syndrome
CPT/HCPCS: 36415; 82306; 83036

== ENCOUNTER → 2022-04-10 | Outpatient (REF) | payer MEDICARE, MEDICAID, SELFPAY ==
[2022-04-10 09:23] LABS: Hematocrit 39.6 % (37-47); Hemoglobin 12.7 g/dL (12.0-15.0); Mean Corp Hgb Conc 32.1 g/dL (32-36); Mean Corpuscular Hgb 29.3 pg (27.0-32.0); Mean Corpuscular Volume 91.5 fL (81-99); Mean Platelet Vol. 10.8 fl (6.2-12.0); Platelet Count 216 K/mm3 (150-450); RBC Distribution Width CV 12.6 % (11.6-14.6); RBC Distribution Width SD 42.4 fl (35.1-43.9); Red Blood Count 4.33 M/mm3 (4.2-5.4); White Blood Count 6.4 K/mm3 (4.4-11.0)
[2022-04-10 09:35] LABS: ALB/GLOB Ratio 0.8 RATIO (0.9-2.4); AST(SGOT) 22 U/L (15-37); Alanine Aminotransfer ALT/SGPT 24 U/L (13-56); Albumin, Serum 3.3 g/dL (3.2-5.0); Alkaline Phosphatase 90 U/L (45-117); Anion Gap 2 (5-15); BUN 13 mg/dL (7-18); BUN/Creat Ratio 14.5 RATIO (10-20); Calcium,Total 9.1 mg/dL (8.5-10.1); Chloride 97 mmol/L (98-107); EST Glomerular Filtration Rate 64 mL/min (>60); Est Glom Filt Rate - Afr Amer 78 mL/min (>60); Glucose 366 mg/dL (74-106); Potassium 3.1 mmol/L (3.5-5.1); Protein, Total 7.3 g/dL (6.4-8.2); Sodium Level 136 mmol/L (136-145)
== END ==
LOC: OLS.WHLEAS 05:00
PROVIDERS: PCP Family Medicine; Visit Provider Family Medicine
DX: G20 Parkinson's disease (principal); E11.22 Type 2 diabetes mellitus with diabetic chronic kidney disease; E11.21 Type 2 diabetes mellitus with diabetic nephropathy; N18.30 Chronic kidney disease, stage 3 unspecified; G89.4 Chronic pain syndrome
CPT/HCPCS: 36415; 80053; 85027

== ENCOUNTER → 2022-04-13 | Outpatient (REF) | payer MEDICARE, MEDICAID, SELFPAY ==
[2022-04-13 08:54] LABS: Potassium 3.2 mmol/L (3.5-5.1)
== END ==
LOC: OLS.WHLEAS 05:00
PROVIDERS: PCP Family Medicine; Visit Provider Internal Medicine
DX: G20 Parkinson's disease (principal); E11.22 Type 2 diabetes mellitus with diabetic chronic kidney disease; N18.30 Chronic kidney disease, stage 3 unspecified; E11.21 Type 2 diabetes mellitus with diabetic nephropathy; G89.4 Chronic pain syndrome
CPT/HCPCS: 36415; 84132

== ENCOUNTER → 2022-04-17 | Outpatient (REF) | payer MEDICARE, MEDICAID, SELFPAY ==
[2022-04-17 09:56] LABS: Anion Gap 4 (5-15); BUN 13 mg/dL (7-18); BUN/Creat Ratio 13.7 RATIO (10-20); Calcium,Total 9.5 mg/dL (8.5-10.1); Chloride 97 mmol/L (98-107); Creatinine, Serum 0.95 mg/dL (0.55-1.02); EST Glomerular Filtration Rate 60 mL/min (>60); Est Glom Filt Rate - Afr Amer 73 mL/min (>60); Glucose 328 mg/dL (74-106); Potassium 3.6 mmol/L (3.5-5.1); Sodium Level 137 mmol/L (136-145)
== END ==
LOC: OLS.WHLEAS 05:00
PROVIDERS: PCP Family Medicine; Visit Provider Internal Medicine
DX: G20 Parkinson's disease (principal); E11.22 Type 2 diabetes mellitus with diabetic chronic kidney disease; E11.21 Type 2 diabetes mellitus with diabetic nephropathy; N18.30 Chronic kidney disease, stage 3 unspecified; G89.4 Chronic pain syndrome
CPT/HCPCS: 36415; 80048

== ENCOUNTER → 2022-06-12 | Outpatient (REF) | payer MEDICARE, MEDICAID, SELFPAY ==
[2022-06-12 11:36] LABS: Hemoglobin 13.2 g/dL (12.0-15.0); Mean Corp Hgb Conc 32.2 g/dL (32-36); Mean Corpuscular Hgb 29.1 pg (27.0-32.0); Mean Corpuscular Volume 90.5 fL (81-99); Mean Platelet Vol. 10.4 fl (6.2-12.0); Platelet Count 188 K/mm3 (150-450); RBC Distribution Width CV 12.8 % (11.6-14.6); Red Blood Count 4.53 M/mm3 (4.2-5.4)
[2022-06-12 11:49] LABS: Vitamin D,25 Hydroxy 49.1 ng/mL
[2022-06-12 12:26] LABS: AST(SGOT) 18 U/L (15-37); Alanine Aminotransfer ALT/SGPT 20 U/L (13-56); Albumin, Serum 3.7 g/dL (3.2-5.0); Alkaline Phosphatase 88 U/L (45-117); Anion Gap 8 (5-15); BUN 13 mg/dL (7-18); BUN/Creat Ratio 15.1 RATIO (10-20); Calcium,Total 9.5 mg/dL (8.5-10.1); Chloride 99 mmol/L (98-107); Creatinine, Serum 0.86 mg/dL (0.55-1.02); EST Glomerular Filtration Rate 67 mL/min (>60); Est Glom Filt Rate - Afr Amer 82 mL/min (>60); Globulin 3.7 g/dL (2.2-4.2); Glucose 163 mg/dL (74-106); Potassium 3.4 mmol/L (3.5-5.1); Protein, Total 7.4 g/dL (6.4-8.2); Sodium Level 141 mmol/L (136-145)
[2022-06-12 13:51] LABS: Hemoglobin A1c 9.2 % (3.8-5.6)
== END ==
LOC: OLS.WHLEAS 05:00
PROVIDERS: PCP Family Medicine; Visit Provider Family Medicine
DX: G20 Parkinson's disease (principal); E11.22 Type 2 diabetes mellitus with diabetic chronic kidney disease; E11.21 Type 2 diabetes mellitus with diabetic nephropathy; N18.30 Chronic kidney disease, stage 3 unspecified; G89.4 Chronic pain syndrome
CPT/HCPCS: 36415; 80053; 82306; 83036; 85027

== ENCOUNTER → 2022-08-07 | Outpatient (REF) | payer MEDICARE, MEDICAID, SELFPAY ==
[2022-08-07 08:46] LABS: Hematocrit 38.9 % (37-47); Hemoglobin 12.2 g/dL (12.0-15.0); Mean Corp Hgb Conc 31.4 g/dL (32-36); Mean Corpuscular Hgb 29.1 pg (27.0-32.0); Mean Corpuscular Volume 92.8 fL (81-99); Mean Platelet Vol. 10.5 fl (6.2-12.0); Platelet Count 165 K/mm3 (150-450); RBC Distribution Width SD 44.1 fl (35.1-43.9); Red Blood Count 4.19 M/mm3 (4.2-5.4); White Blood Count 4.7 K/mm3 (4.4-11.0)
[2022-08-07 09:03] LABS: AST(SGOT) 15 U/L (15-37); Alanine Aminotransfer ALT/SGPT 19 U/L (13-56); Albumin, Serum 3.4 g/dL (3.2-5.0); Alkaline Phosphatase 70 U/L (45-117); Anion Gap 2 (5-15); BUN 16 mg/dL (7-18); BUN/Creat Ratio 15.1 RATIO (10-20); Calcium,Total 9.7 mg/dL (8.5-10.1); Chloride 98 mmol/L (98-107); Creatinine, Serum 1.06 mg/dL (0.55-1.02); EST Glomerular Filtration Rate 53 mL/min (>60); Est Glom Filt Rate - Afr Amer 64 mL/min (>60); Globulin 3.4 g/dL (2.2-4.2); Glucose 432 mg/dL (74-106); Magnesium 1.8 mg/dL (1.6-2.6); Potassium 3.5 mmol/L (3.5-5.1); Protein, Total 6.8 g/dL (6.4-8.2); Sodium Level 136 mmol/L (136-145)
== END ==
LOC: OLS.WHLEAS 05:00
PROVIDERS: PCP Family Medicine; Visit Provider Internal Medicine
DX: E11.22 Type 2 diabetes mellitus with diabetic chronic kidney disease (principal); N18.30 Chronic kidney disease, stage 3 unspecified; G20 Parkinson's disease; G89.4 Chronic pain syndrome; E11.21 Type 2 diabetes mellitus with diabetic nephropathy; M85.80 Other specified disorders of bone density and structure, unspecified site
CPT/HCPCS: 36415; 80053; 83735; 85027

== ENCOUNTER → 2022-09-04 | Outpatient (REF) | payer MEDICARE, MEDICAID, SELFPAY ==
[2022-09-04 09:10] LABS: Vitamin D,25 Hydroxy 54.3 ng/mL
[2022-09-04 09:18] LABS: Hemoglobin A1c 10.9 % (3.8-5.6)
== END ==
LOC: OLS.WHLEAS 05:00
PROVIDERS: PCP Family Medicine; Visit Provider Family Medicine
DX: E11.22 Type 2 diabetes mellitus with diabetic chronic kidney disease (principal); E11.21 Type 2 diabetes mellitus with diabetic nephropathy; N18.30 Chronic kidney disease, stage 3 unspecified; G89.4 Chronic pain syndrome
CPT/HCPCS: 36415; 82306; 83036

== ENCOUNTER → 2022-10-04 | Outpatient (REF) | payer MEDICARE, MEDICAID, SELFPAY ==
[2022-10-04 09:28] LABS: Cholesterol 154 mg/dL (200); High Density Lipoprotein 70 mg/dL; Triglycerides 72 mg/dL; Very Low Density Lipoprotein 14 mg/dL (5-40)
== END ==
LOC: OLS.WHLEAS 05:00
PROVIDERS: PCP Family Medicine; Visit Provider Internal Medicine
DX: N18.30 Chronic kidney disease, stage 3 unspecified (principal)
CPT/HCPCS: 36415; 80061

== ENCOUNTER → 2022-10-05 | Outpatient (REF) | payer MEDICARE, MEDICAID, SELFPAY ==
[2022-10-05 06:53] LABS: Cholesterol 146 mg/dL (200); High Density Lipoprotein 69 mg/dL; Triglycerides 83 mg/dL; Very Low Density Lipoprotein 17 mg/dL (5-40)
== END ==
LOC: OLS.WHLEAS 05:00
PROVIDERS: PCP Family Medicine; Visit Provider Family Medicine
DX: N18.30 Chronic kidney disease, stage 3 unspecified (principal)
CPT/HCPCS: 36415; 80061

== ENCOUNTER → 2022-10-09 | Outpatient (REF) | payer MEDICARE, MEDICAID, SELFPAY ==
[2022-10-09 07:35] LABS: Hematocrit 37.3 % (37-47); Hemoglobin 11.7 g/dL (12.0-15.0); Mean Corp Hgb Conc 31.4 g/dL (32-36); Mean Corpuscular Hgb 29.6 pg (27.0-32.0); Mean Corpuscular Volume 94.4 fL (81-99); Mean Platelet Vol. 10.7 fl (6.2-12.0); Platelet Count 157 K/mm3 (150-450); RBC Distribution Width CV 12.8 % (11.6-14.6); RBC Distribution Width SD 44.6 fl (35.1-43.9); Red Blood Count 3.95 M/mm3 (4.2-5.4); White Blood Count 6.8 K/mm3 (4.4-11.0)
[2022-10-09 07:51] LABS: AST(SGOT) 15 U/L (15-37); Alanine Aminotransfer ALT/SGPT 16 U/L (13-56); Albumin, Serum 3.2 g/dL (3.2-5.0); Alkaline Phosphatase 61 U/L (45-117); Anion Gap 3 (5-15); BUN 10 mg/dL (7-18); BUN/Creat Ratio 13.5 RATIO (10-20); Calcium,Total 9.1 mg/dL (8.5-10.1); Chloride 104 mmol/L (98-107); Creatinine, Serum 0.74 mg/dL (0.55-1.02); EST Glomerular Filtration Rate 80 mL/min (>60); Est Glom Filt Rate - Afr Amer 97 mL/min (>60); Globulin 3.3 g/dL (2.2-4.2); Glucose 135 mg/dL (74-106); Potassium 3.1 mmol/L (3.5-5.1); Protein, Total 6.5 g/dL (6.4-8.2); Sodium Level 141 mmol/L (136-145)
== END ==
LOC: OLS.WHLEAS 05:00
PROVIDERS: PCP Family Medicine; Visit Provider Internal Medicine
DX: E11.22 Type 2 diabetes mellitus with diabetic chronic kidney disease (principal); E11.21 Type 2 diabetes mellitus with diabetic nephropathy; G89.4 Chronic pain syndrome; N18.30 Chronic kidney disease, stage 3 unspecified; G20 Parkinson's disease
CPT/HCPCS: 36415; 80053; 85027

== ENCOUNTER → 2022-11-21 | Outpatient (REF) | payer MEDICARE, MEDICAID, SELFPAY ==
[2022-11-21 10:02] LABS: Potassium 3.3 mmol/L (3.5-5.1)
== END ==
LOC: OLS.WHLEAS 08:25
PROVIDERS: PCP Family Medicine; Visit Provider Internal Medicine
DX: E87.6 Hypokalemia (principal)
CPT/HCPCS: 36415; 84132

== ENCOUNTER → 2022-12-04 | Outpatient (REF) | payer MEDICARE, MEDICAID, SELFPAY ==
[2022-12-04 09:51] LABS: Hematocrit 39.6 % (37-47); Hemoglobin 12.4 g/dL (12.0-15.0); Mean Corp Hgb Conc 31.3 g/dL (32-36); Mean Corpuscular Hgb 29.4 pg (27.0-32.0); Mean Corpuscular Volume 93.8 fL (81-99); Mean Platelet Vol. 10.7 fl (6.2-12.0); Platelet Count 167 K/mm3 (150-450); RBC Distribution Width CV 12.8 % (11.6-14.6); RBC Distribution Width SD 43.8 fl (35.1-43.9); Red Blood Count 4.22 M/mm3 (4.2-5.4); White Blood Count 4.6 K/mm3 (4.4-11.0)
[2022-12-04 10:05] LABS: Hemoglobin A1c 8.2 % (3.8-5.6); Vitamin D,25 Hydroxy 40.9 ng/mL
[2022-12-04 10:11] LABS: ALB/GLOB Ratio 0.8 RATIO (0.9-2.4); AST(SGOT) 31 U/L (15-37); Alanine Aminotransfer ALT/SGPT 27 U/L (13-56); Alkaline Phosphatase 85 U/L (45-117); Anion Gap 2 (5-15); BUN 12 mg/dL (7-18); BUN/Creat Ratio 13.7 RATIO (10-20); Calcium,Total 8.6 mg/dL (8.5-10.1); Chloride 102 mmol/L (98-107); Creatinine, Serum 0.88 mg/dL (0.55-1.02); EST Glomerular Filtration Rate 66 mL/min (>60); Est Glom Filt Rate - Afr Amer 80 mL/min (>60); Globulin 3.6 g/dL (2.2-4.2); Glucose 219 mg/dL (74-106); Potassium 2.9 mmol/L (3.5-5.1); Protein, Total 6.6 g/dL (6.4-8.2); Sodium Level 137 mmol/L (136-145)
== END ==
LOC: OLS.WHLEAS 05:00
PROVIDERS: PCP Family Medicine; Visit Provider Internal Medicine
DX: E11.22 Type 2 diabetes mellitus with diabetic chronic kidney disease (principal); N18.30 Chronic kidney disease, stage 3 unspecified; G20 Parkinson's disease; G89.4 Chronic pain syndrome; E11.21 Type 2 diabetes mellitus with diabetic nephropathy
CPT/HCPCS: 36415; 80053; 82306; 83036; 85027

== ENCOUNTER → 2022-12-07 | Outpatient (REF) | payer MEDICARE, MEDICAID, SELFPAY ==
[2022-12-07 09:11] LABS: Potassium 4.7 mmol/L (3.5-5.1)
== END | disposition home or self-care (01) ==
LOC: OLS.WHLEAS 05:00
PROVIDERS: PCP Family Medicine; Visit Provider Internal Medicine
DX: Z11.59 Encounter for screening for other viral diseases (principal); E03.9 Hypothyroidism, unspecified; Z13.220 Encounter for screening for lipoid disorders
CPT/HCPCS: 36415; 84132

== ENCOUNTER → 2023-02-05 | Outpatient (REF) | payer MEDICARE, MEDICAID, SELFPAY ==
[2023-02-05 09:13] LABS: Hematocrit 39.8 % (37-47); Hemoglobin 12.1 g/dL (12.0-15.0); Mean Corp Hgb Conc 30.4 g/dL (32-36); Mean Corpuscular Hgb 28.9 pg (27.0-32.0); Mean Corpuscular Volume 95.2 fL (81-99); Mean Platelet Vol. 10.7 fl (6.2-12.0); Platelet Count 183 K/mm3 (150-450); RBC Distribution Width CV 13.1 % (11.6-14.6); RBC Distribution Width SD 46.1 fl (35.1-43.9); Red Blood Count 4.18 M/mm3 (4.2-5.4)
[2023-02-05 09:43] LABS: AST(SGOT) 18 U/L (15-37); Alanine Aminotransfer ALT/SGPT 20 U/L (13-56); Albumin, Serum 3.4 g/dL (3.2-5.0); Alkaline Phosphatase 73 U/L (45-117); Anion Gap 5 (5-15); BUN 16 mg/dL (7-18); BUN/Creat Ratio 20.8 RATIO (10-20); Bilirubin, Direct 0.15 mg/dL (0.00-0.30); Calcium,Total 9.4 mg/dL (8.5-10.1); Chloride 105 mmol/L (98-107); Creatinine, Serum 0.77 mg/dL (0.55-1.02); EST Glomerular Filtration Rate 76 mL/min (>60); Est Glom Filt Rate - Afr Amer 93 mL/min (>60); Globulin 3.5 g/dL (2.2-4.2); Glucose 106 mg/dL (74-106); Potassium 4.2 mmol/L (3.5-5.1); Protein, Total 6.9 g/dL (6.4-8.2); Sodium Level 142 mmol/L (136-145)
== END ==
LOC: OLS.WHLEAS 05:00
PROVIDERS: PCP Family Medicine; Visit Provider Internal Medicine
DX: G20.C Parkinsonism, unspecified (principal); E11.21 Type 2 diabetes mellitus with diabetic nephropathy; E11.22 Type 2 diabetes mellitus with diabetic chronic kidney disease; N18.30 Chronic kidney disease, stage 3 unspecified; G89.4 Chronic pain syndrome; Z79.899 Other long term (current) drug therapy
CPT/HCPCS: 36415; 80053; 82248; 83036; 85027

== ENCOUNTER → 2023-03-12 | Outpatient (REF) | payer MEDICARE, MEDICAID, SELFPAY ==
[2023-03-12 08:59] LABS: Vitamin D,25 Hydroxy 34.4 ng/mL
[2023-03-12 09:01] LABS: Hemoglobin A1c 7.4 % (3.8-5.6)
== END ==
LOC: OLS.WHLEAS 05:00
PROVIDERS: PCP Family Medicine; Visit Provider Internal Medicine
DX: E11.22 Type 2 diabetes mellitus with diabetic chronic kidney disease (principal); E11.21 Type 2 diabetes mellitus with diabetic nephropathy; N18.30 Chronic kidney disease, stage 3 unspecified; G89.4 Chronic pain syndrome; G20.C Parkinsonism, unspecified
CPT/HCPCS: 36415; 82306; 83036

== ENCOUNTER → 2023-04-09 | Outpatient (REF) | payer MEDICARE, MEDICAID, SELFPAY ==
[2023-04-09 09:46] LABS: Hematocrit 41.2 % (37-47); Hemoglobin 12.7 g/dL (12.0-15.0); Mean Corp Hgb Conc 30.8 g/dL (32-36); Mean Corpuscular Hgb 29.1 pg (27.0-32.0); Mean Corpuscular Volume 94.5 fL (81-99); Mean Platelet Vol. 10.9 fl (6.2-12.0); Platelet Count 212 K/mm3 (150-450); RBC Distribution Width CV 12.8 % (11.6-14.6); RBC Distribution Width SD 44.3 fl (35.1-43.9); Red Blood Count 4.36 M/mm3 (4.2-5.4); White Blood Count 7.9 K/mm3 (4.4-11.0)
[2023-04-09 10:12] LABS: ALB/GLOB Ratio 0.9 RATIO (0.9-2.4); AST(SGOT) 19 U/L (15-37); Alanine Aminotransfer ALT/SGPT 21 U/L (13-56); Albumin, Serum 3.5 g/dL (3.2-5.0); Alkaline Phosphatase 90 U/L (45-117); Anion Gap 3 (5-15); BUN 17 mg/dL (7-18); BUN/Creat Ratio 22.9 RATIO (10-20); Calcium,Total 9.4 mg/dL (8.5-10.1); Chloride 106 mmol/L (98-107); Creatinine, Serum 0.74 mg/dL (0.55-1.02); EST Glomerular Filtration Rate 80 mL/min (>60); Est Glom Filt Rate - Afr Amer 97 mL/min (>60); Globulin 3.7 g/dL (2.2-4.2); Glucose 55 mg/dL (74-106); Potassium 3.9 mmol/L (3.5-5.1); Protein, Total 7.2 g/dL (6.4-8.2); Sodium Level 139 mmol/L (136-145)
== END ==
LOC: OLS.WHLEAS 05:00
PROVIDERS: PCP Family Medicine; Visit Provider Internal Medicine
DX: E11.22 Type 2 diabetes mellitus with diabetic chronic kidney disease (principal); E11.21 Type 2 diabetes mellitus with diabetic nephropathy; N18.30 Chronic kidney disease, stage 3 unspecified
CPT/HCPCS: 36415; 80053; 85027

== ENCOUNTER → 2023-04-19 | Outpatient (REF) | payer MEDICARE, MEDICAID, SELFPAY ==
[2023-04-19 08:08] LABS: Potassium 4.3 mmol/L (3.5-5.1)
== END ==
LOC: OLS.WHLEAS 05:00
PROVIDERS: PCP Family Medicine; Visit Provider Internal Medicine
DX: E87.6 Hypokalemia (principal)
CPT/HCPCS: 36415; 84132

== ENCOUNTER → 2023-04-23 | Outpatient (REF) | payer MEDICARE, MEDICAID, SELFPAY ==
--- OUTSIDE RECORDS SUMMARY | 2023-04-23 04:52 | XMS RPT_ITS | CCD ---
Author Name Unknown Address [address] [place] [address] Organization [facility] Care Team Providers Care Ticket Sales Supervisor Name Role Phone Rachael Newman MD Unavailable Allergies Allergy Classification Reported Allergen(s) Allergy Type Date of Onset Reaction(s) Facility (1 source) Acetaminophen / HYDROcodone Drug Allergy 03-16-20 19 unknown [facility] Work Phone: (1 source) Acetaminophen / oxyCODONE Drug Allergy 03-16-20 19 unknown [facility] Work Phone: (1 source) Acetaminophen / Propoxyphene Drug Allergy 03-16-20 19 unknown [facility] Work Phone: (1 source) Baclofen Drug Allergy 03-16-20 19 unknown [facility] Work Phone: (1 source) Carbidopa / Levodopa Drug Allergy 03-16-20 19 unknown [facility] Work Phone: (1 source) Ibuprofen Drug Allergy 03-16-20 19 kidney disease [facility] Work Phone: (1 source) Ketoprofen Drug Allergy 03-16-20 19 unknown [facility] Work Phone: (1 source) LORazepam Drug Allergy 03-16-20 19 unknown [facility] Work Phone: (1 source) metFORMIN Drug Allergy 03-16-20 19 unknown [facility] Work Phone: (1 source) Naloxone Drug Allergy 03-16-20 19 unknown [facility] Work Phone: (1 source) oxaprozin Drug Allergy 03-16-20 19 unknown [facility] Work Phone: (1 source) rofecoxib Drug Allergy 03-16-20 19 unknown [facility] Work Phone: (1 source) rosiglitazone Drug Allergy 03-16-20 19 siblings had severe reactions [facility] Work Phone: (1 source) Sertraline Drug Allergy 03-16-20 19 unknown [facility] Work Phone: (1 source) Simvastatin Drug Allergy 03-16-20 19 unknown [facility] Work Phone: (1 source) Sulfamethoxazole / Trimethoprim Drug Allergy 03-16-20 19 unknown [facility] Work Phone: (1 source) venlafaxine; Translations: [EFFEXOR] Drug Allergy 03-16-20 19 unknown [facility] Work Phone: Medications Completed/Discontinued Medications Medication Drug Class(es) Dates Sig (Normalized) Sig (Original) acetaminophen 325 mg oral capsule (1 source) Start: 03-16-2019 TYLENOL 325 MG CAPS takes two tabs every 4 hours as needed ACETAMINOPHEN [id number] Rachael Newman MD amoxicillin 500 mg oral capsule (1 source) Penicillin-class Antibacterial Start: 03-16-2019 AMOXICILLIN 500 MG CAPS takes as directed prior to dental procedures AMOXICILLIN [id number] Rachael Newman MD atorvastatin 40 mg oral tablet (1 source) HMG-CoA Reductase Inhibitor Start: 03-16-2019 LIPITOR 40 MG TABS takes one tab once daily ATORVASTATIN CALCIUM [id number] Rachael Newman MD diphenhydrAMINE hydrochloride 25 mg oral tablet (2 sources) Histamine-1 Receptor Antagonist Start: 03-16-2019 BANOPHEN 25 MG TABS takes one tab daily DIPHENHYDRAMINE HCL [id number] Rachael Newman MD Problems Active Problems Problem Classification Problem Date Documented Da te Episodic/Chronic Spondylosis; intervertebral disc disorders; other back problems (1 source) Cervical spondylosis; Translations: [Spondylosis without myelopathy or radiculopathy, cervical region] Onset: 03-16-2019 03-16-2019 Chronic Past or Other Problems Problem Classification Problem Date Documented Da te Episodic/Chronic Unclassified (1 source) Problem Results Test Name Value Interpretation Reference Range Facil ity Vital Signs Date Time Vital Sign Value Performing Clinician Facility NEGATED: Highlighted [id number] 14:06-0500 BMI (Body Mass Index) 44.85 kg/m2 Arcenio Moreira AT [facility] Work Phone: NEGATED: Highlighted [id number] 14:06-0500 Body weight 102.06 kg Arcenio Moreira AT [facility] Work Phone: NEGATED: Highlighted [id number] 14:06-0500 Body weight 102 kg Arcenio Moreira AT [facility] Work Phone: NEGATED: Highlighted [id number] 14:06-0500 BP Diastolic 68 mm[Hg] Arcenio Sittiana AT [facility] Work Phone: NEGATED: Highlighted [id number] 14:06-0500 BP Systolic 124 mm[Hg] Arcenio Sittiana AT [facility] Work Phone: NEGATED: Highlighted [id number] 14:06-0500 Height 151.13 cm Arcenio Moreira AT [facility] Work Phone: NEGATED: Highlighted [id number] 14:06-0500 Height 151 cm Arcenio Sittiana AT [facility] Work Phone: NEGATED: Highlighted [id number] 14:06-0500 Pulse (Heart Rate) 101 /min Arcenio Moreira AT [facility] Work Phone: Encounters Encounter Date Encounter Type Care Provider Facility Start: 03-16-2019 End: 03-16-2019 Patient encounter procedure Rachael Newman MD Work Phone: [facility] Work Phone: Procedures Date Procedure Procedure Detail Performing Clinician Start: 03-16-2019 End: 03-16-2019 Blood pressure within normal parameters - no follow-up required Rachael Newman MD Work Phone: Start: 03-16-2019 End: 03-16-2019 BMI documented as above normal parameters - follow-up documented Rachael Newman MD Work Phone: Start: 03-16-2019 End: 03-16-2019 Documentation of current medications Rachael Newman MD Work Phone: Start: 03-16-2019 End: 03-16-2019 Pain assessment not documented - reason not given Rachael Newman MD Work Phone: Start: 03-16-2019 End: 03-16-2019 Tobacco non-user Rachael Newman MD Work Phone: NEGATED: Highlighted rowStart: 03-16-2019 End: 03-16-2019 Documentation of current medications Arcenio Moreira AT Plan of Treatment Date Care Activity Detail Author Start: 03-16-2019 End: 03-16-2019 Appointment Appointment [facility] Work Phone: Social History Date Type Detail Facility NEGATED: Highlighted rowStart: 03-16-2019 End: 03-16-2019 Alcohol use Alcohol use [facility] Work Phone: NEGATED: Highlighted rowStart: 03-16-2019 End: 03-16-2019 Details of drug misuse behavior Details of drug misuse behavior [facility] Work Phone: NEGATED: Highlighted rowStart: 03-16-2019 End: 03-16-2019 Assertion Never smoker [facility] Work Phone: Chief Complaint Chief Complaint Description Start Date lower back pain Preliminary chief co mplaint data, not yet signed by the author as of Instructions Instruction Description Start Date Patient advised to follow-up with Primary Care Physician for BMI management. Advance Directives There may be information available, but it has not been provided by the sender. Assessments There may be information available, but it has not been provided by the sender. Review of System There may be information available, but it has not been provided by the sender. Family History There may be information available, but it has not been provided by the sender. History of Present Illness There may be information available, but it has not been provided by the sender. Additional Source Comments Reason for Visit (unrecogniz ed section and content) FOR RECORDS PERTAINING TO PATIENTS WHO ARE OR HAVE BEEN ENROLLED IN A CHEMICAL DEPENDENCY/SUBSTANCEABUSE PROGRAM, SOME INFORMATION MAY BE OMITTED. This clinical summary was aggregated from multiple sources. Caution should be exercised in using it in the provision of clinical care. This summary normalizes information from multiple sources, and as a consequence, information in this document may materially change the coding, format and clinical context of patient data. In addition, data may be omitted in some cases. CLINICAL DECISIONS SHOULD BE BASED ON THE PRIMARY CLINICAL RECORDS. [employer] provides no warranty or guarantee of the accuracy or completeness of information in this document.
[2023-04-23 09:19] LABS: Absolute Lymphocyte Count 1.27 X10^3/uL (0.83-4.51); Absolute Neutrophil Count 4.1 X10^3/uL (2.0-7.7); Basophil# 0.02 X10^3/uL; Basophil% 0.3 % (0-1); Eosinophil# 0.28 X10^3/uL; Eosinophils% 4.6 % (0-5); Hematocrit 38.5 % (37-47); Lymphocyte # 1.27 X10^3/ul (0.83-4.51); Lymphocyte % 20.9 % (19-41); Mean Corp Hgb Conc 31.2 g/dL (32-36); Mean Corpuscular Hgb 29.3 pg (27.0-32.0); Mean Corpuscular Volume 93.9 fL (81-99); Mean Platelet Vol. 10.3 fl (6.2-12.0); Monocyte# 0.37 X10^3/uL; Monocyte% 6.1 % (0-10); NRBC Flagged by Analyzer 0 % (0-5); Neutrophil # 4.12 X10^3/uL (2.7-7.7); Neutrophil % 67.6 % (47-70); Platelet Count 207 K/mm3 (150-450); RBC Distribution Width SD 44.9 fl (35.1-43.9); White Blood Count 6.1 K/mm3 (4.4-11.0)
[2023-04-23 09:22] LABS: Anion Gap 3 (5-15); BUN 15 mg/dL (7-18); BUN/Creat Ratio 21.8 RATIO (10-20); Calcium,Total 9.3 mg/dL (8.5-10.1); Chloride 106 mmol/L (98-107); Creatinine, Serum 0.69 mg/dL (0.55-1.02); EST Glomerular Filtration Rate 87 mL/min (>60); Est Glom Filt Rate - Afr Amer 106 mL/min (>60); Glucose 96 mg/dL (74-106); Potassium 3.7 mmol/L (3.5-5.1); Sodium Level 141 mmol/L (136-145)
== END ==
LOC: OLS.WHLEAS 05:00
PROVIDERS: PCP Family Medicine; Visit Provider Internal Medicine
DX: E11.22 Type 2 diabetes mellitus with diabetic chronic kidney disease (principal); E11.21 Type 2 diabetes mellitus with diabetic nephropathy; N18.30 Chronic kidney disease, stage 3 unspecified
CPT/HCPCS: 36415; 80048; 85025

== ENCOUNTER 2023-06-05 03:41 | Emergency (ER) | payer MEDICARE, MEDICAID, SELFPAY ==
[2023-06-05 03:42] VITALS: BP 171/62; PULSE 66; RESP 15; TEMP 36.4; O2SAT 98; BMI 23.9
[2023-06-05 03:47] VITALS: O2SAT 96
--- NOTE | 2023-06-05 04:24 | RAD_ITS ---
EXAM: XR RIGHT ELBOW COMPLETE, 3 OR MORE VIEWS CLINICAL INDICATION: Injury/Pain TECHNIQUE: Frontal, lateral and oblique views of the right elbow. COMPARISON: No relevant prior studies available. FINDINGS: BONES/JOINTS: Small ossified enthesophyte arises from the olecranon at the site of the triceps tendon insertion. No acute fracture. No subluxation. Normal alignment. Preservation of the joint space. No destructive or sclerotic lesions. SOFT TISSUES: Soft tissue swelling noted posterior to the distal humerus on the lateral view. Fat pads of the elbow are not displaced. No radiopaque foreign body. Vascular calcification is present. RAD/Elbow min 3 Views IMPRESSION: Soft tissue swelling. No acute fracture or dislocation identified. Electronically Signed: Herb Laguna MD at 5:43 EST ,
--- NOTE | 2023-06-05 04:24 | CT_ITS ---
EXAM: CT HEAD WITHOUT INTRAVENOUS CONTRAST CLINICAL INDICATION: Injury/Pain TECHNIQUE: Multiple axial images were obtained of the head without intravenous contrast. This CT exam was performed using one or more of the following dose reduction techniques: automated exposure control, adjustment of the mA and/or kV according to patient size, and/or use of iterative reconstruction technique. RADIATION DOSE: Total DLP: 863.60 mGy-cm. COMPARISON: No relevant prior studies available. FINDINGS: BRAIN AND EXTRA-AXIAL SPACES: Findings of mild/moderate age-related atrophy present with prominence of the cortical sulci, basal cisterns, sylvian fissures and ventricles. Minimal patchy chronic small vessel ischemic changes are noted within the deep white matter tracts. No intra- or extra-axial hemorrhage. No intracranial mass or mass effect. Posterior fossa structures are unremarkable. Vasquez-white matter differentiation is preserved. BONES/JOINTS: Unremarkable. No discrete lytic or blastic abnormalities. No linear or depressed skull fracture. SOFT TISSUES: Soft tissue swelling and scalp hematoma noted overlying the superior right frontal bone. VASCULATURE: Atherosclerotic vascular calcification is present. SINUSES: Unremarkable as visualized. Clear. MASTOID AIR CELLS: Unremarkable. Clear. ORBITS: Previous cataract surgery. CT/Brain/Head without Contrast IMPRESSION: Soft tissue swelling overlying the superior right frontal bone. No skull fracture or acute intracranial hemorrhage. Electronically Signed: Herb Laguna MD at 5:50 EST ,
--- NOTE | 2023-06-05 04:24 | CT_ITS ---
EXAM: CT CERVICAL SPINE WITHOUT INTRAVENOUS CONTRAST CLINICAL INDICATION: neck trauma TECHNIQUE: Helically acquired images were obtained of the cervical spine without intravenous contrast. 2D reformatted images were reviewed. This CT exam was performed using one or more of the following dose reduction techniques: automated exposure control, adjustment of the mA and/or kV according to patient size, and/or use of iterative reconstruction technique. RADIATION DOSE: Total DLP: 548.20 mGy-cm. COMPARISON: No relevant prior studies available. FINDINGS: VERTEBRAE: No compression fracture, posterior element fracture or facet dislocation. The odontoid is intact. DISCS/SPINAL CANAL/NEURAL FORAMINA: C2/3 and C3/4 facet joints are fused, and these 2 disc spaces are partially fused. There is mild anterior subluxation of C4 on C5 secondary to facet arthritis at this level. The C4/5 disc space shows severe degenerative disc space narrowing with marginal osteophytes and vacuum disc phenomenon. C5/6 disc space and facet joints are fused. C6/7 disc space shows severe degenerative narrowing with mild endplate sclerosis, vacuum disc phenomenon and marginal osteophytes. There is slight degenerative anterior subluxation of C7 on T1 due to facet arthritis. T1/2 T2/3 and T3/4 disc spaces show severe degenerative narrowing with marginal osteophytes. No critical thecal sac stenosis. Uncinate hypertrophy causes mild left-sided neural neural foraminal encroachment at C6/7 level. SOFT TISSUES: Unremarkable. No prevertebral soft tissue swelling. LUNG APICES: Visualized upper lungs are clear. Visualized upper ribs are intact. CT/Spine Cervical without Contras IMPRESSION: Extensive cervical degenerative changes. No acute fracture identified Electronically Signed: Herb Laguna MD at 6:04 EST ,
--- NOTE | 2023-06-05 04:36 | EX.ED.GENINJ ---
HPI History of Present Illness Chief Complaint: Head Injury Informant: patient Narrative Narrative: Patient is an 82-year-old female presenting from [facility] after she injured her head. Patient states she fell out of her wheelchair. She not sure why she fell out of her wheelchair. She notes is her second fall today. She did strike her head. Not sure if she lost consciousness. Is complaining of pain at site of a forehead laceration but no other acute complaints. On further questioning she notes that she is having right elbow pain from a fall earlier today. Again she states she fell out of her wheelchair. She she otherwise been feeling well denies any other complaints at this time. Is not on any blood thinners. Per jail report patient was in the dining room at the table doing her puzzles which is her typical activity. Unclear if there was loss of consciousness. Was sent for evaluation of injuries. Tetanus Immunization: Unknown [facility] Medical History Anxiety and depression Arthritis Asthma Back problem Bladder cancer Cataracts, bilateral Chronic headaches Gallstones GERD (gastroesophageal reflux disease) Heart murmur High cholesterol Hives HTN (hypertension) Liver disease Neuropathy Osteoarthritis Osteopenia Pain in both knees Recurrent infections Recurrent UTI Skin cancer Type 2 diabetes mellitus Vision problems Home Medications acetaminophen 325 mg tablet 650 mg PO TID CHRONIC PAIN 09/20/17 [History Last Taken 12/16/19] Bacillus coagulans-inulin 1 billion cell-250 mg capsule 1 cap PO DAILY [facility] 12/16/19 [History Last Taken 12/16/19] atorvastatin 10 mg tablet 10 mg PO QHS CHOLESTEROL 12/16/19 [History Last Taken 12/15/19] calcitriol 0.5 mcg capsule 0.5 mcg PO DAILY SUPPLEMENT 12/16/19 [History Last Taken 12/16/19] dulaglutide 0.75 mg/0.5 mL subcutaneous pen injector 0.75 mg SQ TU DM 12/16/19 [History Last Taken 12/15/19] famotidine 20 mg tablet 20 mg PO QHS GERD 12/16/19 [History Last Taken 12/15/19] gabapentin 100 mg capsule 200 mg PO QHS NERVE PAIN 12/16/19 [History Last Taken 12/15/19] insulin aspart U-100 100 unit/mL (3 mL) subcutaneous pen 10 units subcut DAILY@0900 DM 12/16/19 [History Last Taken 12/16/19] insulin aspart U-100 100 unit/mL (3 mL) subcutaneous pen See Protocol subcut TIDCM DM 12/16/19 [History Last Taken 12/16/19] insulin aspart U-100 100 unit/mL subcutaneous solution 12 unit SQ DAILY@1200 DM 12/16/19 [History Last Taken 12/16/19] insulin aspart U-100 100 unit/mL subcutaneous solution 12 unit SQ DAILY@1700 DM 12/16/19 [History Last Taken 12/15/19] insulin glargine 100 unit/mL subcutaneous solution 42 unit SQ BID DM 12/16/19 [History Last Taken 12/16/19] melatonin 3 mg tablet 3 mg PO QHS SLEEP 12/16/19 [History Last Taken 12/15/19] mirtazapine 15 mg tablet 15 mg PO QHS DEPRESSION 12/16/19 [History Last Taken 12/15/19] ropinirole 2 mg tablet 2 mg PO TID RLS 12/16/19 [History Last Taken 12/16/19] bumetanide 2 mg tablet 2 mg PO DAILY FLUID #1 TAB 12/18/19 [Rx Last Taken Unknown] dapagliflozin propanediol 10 mg tablet (Farxiga) mg 06/05/23 [History Last Taken Unknown] furosemide 20 mg tablet mg 06/05/23 [History Last Taken Unknown] linaclotide 290 mcg capsule (Linzess) mcg 06/05/23 [History Last Taken Unknown] metformin 750 mg tablet,extended release 24 hr mg PO 06/05/23 [History Last Taken Unknown] oxycodone 5 mg tablet mg 06/05/23 [History Last Taken Unknown] potassium chloride 20 mEq tablet,extended release(part/cryst) meq PO 06/05/23 [History Last Taken Unknown] venlafaxine 75 mg capsule,extended release 24 hr mg PO 06/05/23 [History Last Taken Unknown] Allergy/AdvReac Type Severity Reaction Status Date / Time sulfamethoxazole Allergy Rash Verified 06/05/23 03:49 [From Bactrim] trimethoprim [From Bactrim] Allergy Rash Verified 06/05/23 03:49 carbidopa [From Sinemet] AdvReac Nausea Verified 06/05/23 03:49 hydrocodone bitartrate AdvReac Nausea Verified 06/05/23 03:49 [From Vicodin] ketoprofen [From Orudis] AdvReac Unknown Verified 06/05/23 03:49 levodopa [From Sinemet] AdvReac Nausea Verified 06/05/23 03:49 lorazepam [From Ativan] AdvReac hallucinati Verified 06/05/23 03:49 on metformin HCl AdvReac Nausea Verified 06/05/23 03:49 [From Glucophage] naloxone AdvReac Nausea Verified 06/05/23 03:49 NSAIDS (Non-Steroidal AdvReac PT UNSURE Verified 06/05/23 03:49 Anti-Inflamma OF REACTION oxaprozin [From Daypro] AdvReac Nausea Verified 06/05/23 03:49 oxycodone HCl [From Percocet] AdvReac Nausea Verified 06/05/23 03:49 propoxyphene HCl AdvReac Nausea Verified 06/05/23 03:49 [From Darvon] rofecoxib [From Vioxx] AdvReac Nausea Verified 06/05/23 03:49 rosiglitazone maleate AdvReac Nausea Verified 06/05/23 03:49 [From Avandia] sertraline HCl [From Zoloft] AdvReac haullucinat Verified 06/05/23 03:49 ion simvastatin [From Zocor] AdvReac Nausea Verified 06/05/23 03:49 venlafaxine HCl AdvReac Nausea Verified 06/05/23 03:49 [From Effexor] Family History Unknown Asthma Arthritis Cancer Diabetes Heart disease Hypertension High cholesterol Kidney stones Liver disease Osteoporosis Skin cancer CVA (cerebral vascular accident) Social History Smoking Status: Never smoker second hand exposure: No alcohol intake: never substance use type: does not use ROS ROS ED Constitutional Constitutional ED: Denies chills or fever(s) Eyes Eyes: Denies change in vision Gastrointestinal Gastrointestinal: Denies nausea or vomiting Musculoskeletal Musculoskeletal: Reports other Details: right elbow pain Integumentary Reports Abrasions Neurologic Neurologic: Reports headache(s); Denies paresthesias or weakness Psychiatric Psychiatric: Denies anxiety Hematologic/Lymphatic Hematologic/Lymphatic: Denies easy bleeding or easy bruising EXAM Physical Exam Const Vital Signs: 06/05/23 03:42 06/05/23 03:47 06/05/23 06:33 Temperature 97.6 F L Temperature Source Temporal Pulse Rate 66 68 Respiratory Rate 15 15 Respiratory Effort Normal Non-Labored Respiratory Depth Normal Respiratory Pattern Normal Blood Pressure 171/62 H 133/77 H Blood Pressure Mean 98 95 Pulse Ox 98 96 97 Oxygen Delivery Method Room Air Room Air Room Air Positive well developed General Appearance ED: well developed and NAD HEENT Reports TM's clear HEENT Narrative: forehead abrasion , right upper, bleeding Nose: Negative for septum abnormal Tympanic Membrane ED: Yes TM's clear Eyes PERRL and EOMs intact bilaterally Chest Wall inspection of chest normal Resp normal respiratory effort and clear to auscultation bilaterally Cardio regular rhythm Rate: regular rate GI normal to inspection, nondistended, normoactive bowel sounds and non-tender Back/Spine normal to inspection Extremity Extremity Narrative: Decreased range of motion and diffuse tenderness of the right elbow. Normal range of motion and no deformity of the shoulders, forearms or wrist. Pelvis is stable. No deformity of the lower extremities appreciated. No pain with logroll. Neuro Neuro Narrative: Patient at her baseline. No focal neurologic deficits appreciated Michaela Coma Scale: document GCS findings Spontaneous Obeys Commands Confused 14 Sensorium / Orientation: alert and oriented to person Psych mental status grossly normal and thought process normal Skin Skin Narrative: Right upper forehead laceration 1 cm. There is a punctate area that is full-thickness with remaining there is partial-thickness. Wound edges are well-approximated. MDM MDM MDM Narrative Medical decision making narrative: Patient is evaluated for head injury after fall. Her sister is now at the bedside who states that did like to do a little bit more workup to see if there is a reason why she keeps falling. Will obtain EKG, CBC, BMP and urinalysis in addition to trauma imaging (CT of the brain, cervical spine and x-ray of the right elbow). Patient's tetanus is updated. Right elbow x-ray reviewed by myself as well as radiology does not show any acute fractures. CT of the brain does not show any acute skull fracture or intracranial hemorrhage however there is soft tissue swelling overlying the superior right frontal bone which is consistent with her area of trauma. CT of the cervical spine does not show any acute fracture. Lab workup largely unremarkable. Urinalysis is most consistent with contamination with equal amounts white blood cells and squamous cells. CBC and BMP unremarkable. Localized wound care applied to her forehead and hair apposition technique using Dermabond used for laceration repair. Patient be discharged back to nursing facility. The exact cause of her fall is not clear but suspect it is more debility related as she is wheelchair-bound and seems to try to get out of her wheelchair than infectious at this time. History & Record Review Discussion w/independent historian: Family Additional record(s) reviewed:: Prior outpatient record (jail paperwork ) Lab Data Attestation: I reviewed the patient's lab results. Labs: Laboratory Results - last 24 hr 06/05/23 06/05/23 05:22 06:30 WBC 8.7 RBC 4.53 Hgb 13.2 Hct 42.1 MCV 92.9 MCH 29.1 MCHC 31.4 L RDW Std Deviation 43.4 RDW Coeff of [place] 12.6 Plt Count 180 MPV 10.3 Immature Gran % (Auto) 0.300 Neut % (Auto) 76.3 H Lymph % (Auto) 13.6 L [place] % (Auto) 7.2 Eos % (Auto) 2.0 Baso % (Auto) 0.6 Absolute Neuts (auto) 6.6 Absolute Lymphs (auto) 1.18 Nucleated RBC % 0 Sodium 137 Potassium 3.6 Chloride 104 Carbon Dioxide 32.0 Anion Gap 1 L BUN 17 Creatinine 0.78 Estim Creat Clear Calc 48.43 Est GFR (MDRD) Af Amer 92 Est GFR (MDRD) Non-Af 76 BUN/Creatinine Ratio 21.9 H Glucose 150 H Calcium 9.3 Urine Color Yellow Urine Clarity Sl. Cloudy Urine pH 6.0 Ur Specific [place] 1.015 Urine Protein 15 H Urine Glucose (UA) 1000 H Urine Ketones Negative Urine Occult Blood 50 H Urine Nitrite Negative Urine Bilirubin Negative Urine Urobilinogen Normal Ur Leukocyte Esterase 100 H Urine RBC 0 SEEN Urine WBC 5-10 SEEN Ur Squamous Epith Cells 5-10 SEEN Urine Bacteria 0 SEEN Urine Mucus 0 SEEN Radiography Diagnostic Testing: Clinical Impression(s) from Imaging Studies Brain CT 06/05/23 04:24 IMPRESSION: Soft tissue swelling overlying the superior right frontal bone. No skull fracture or acute intracranial hemorrhage. Electronically Signed: Herb Laguna MD at 5:50 EST , Cervical Spine CT 06/05/23 04:24 IMPRESSION: Extensive cervical degenerative changes. No acute fracture identified Electronically Signed: Herb Laguna MD at 6:04 EST , Elbow X-Ray 06/05/23 04:24 IMPRESSION: Soft tissue swelling. No acute fracture or dislocation identified. Electronically Signed: Herb Laguna MD at 5:43 EST Reading Location ID and State: [facility] / [place] Tel , Service support , Rhythm Strip Rhythm Strip: Sinus Rhythm Rate: 69 Ectopy: None EKG Initial EKG: Attestation: I personally reviewed and interpreted this EKG as follows: Interpretation: Sinus Rhythm Comments: Normal sinus rhythm rate of 69 bpm Left axis deviation Left anterior fascicular block Normal intervals Moderate voltage criteria for LVH Normal ST segments LVH and left anterior vesicular-like are new compared to prior EKG on 12/16/2019 Discharge Plan Triage Chief Complaint: Head Injury ED Provider: Colleen Walker Dx/Rx/DC Orders Clinical Impression: Closed head injury, Forehead laceration Instructions: ED Head Injury (Adult), ED Laceration, Face: Skin Glue Prescriptions: No Action acetaminophen 325 MG tablet 650 mg PO TID insulin glargine 100 UNIT/ML solution 42 unit SQ BID atorvastatin 10 MG tablet 10 mg PO QHS melatonin 3 MG tablet 3 mg PO QHS famotidine 20 MG tablet 20 mg PO QHS ropinirole 2 MG tablet 2 mg PO TID calcitriol 0.5 MCG capsule 0.5 mcg PO DAILY mirtazapine 15 MG tablet 15 mg PO QHS gabapentin 100 MG capsule 200 mg PO QHS insulin aspart U-100 100 UNITS/ML insulin pen 10 units subcut DAILY@0900 insulin aspart U-100 100 UNITS/ML insulin pen See Protocol subcut TIDCM Protocol: 6. Sliding Scale Insulin Custom Condition: mg/dl range Dose/Route: Number of Units Condition: 201-250 Dose/Route: 4 Condition: 251-300 Dose/Route: 6 Condition: 301-350 Dose/Route: 8 Condition: 351-400 Dose/Route: 10 Condition: >400 Dose/Route: 12 Protocol Text: Custom Sliding Scale Bacillus coagulans-inulin 1 EACH capsule 1 cap PO DAILY dulaglutide 0.75 MG/0.5 ML pen injector 0.75 mg SQ TU insulin aspart U-100 100 UNIT/ML solution 12 unit SQ DAILY@1200 insulin aspart U-100 100 UNIT/ML solution 12 unit SQ DAILY@1700 bumetanide 2 MG tablet 2 mg PO DAILY Qty: 1 0RF metformin 750 mg tablet extended release 24 hr PO Linzess 290 mcg capsule dapagliflozin propanediol [Farxiga] 10 mg tablet venlafaxine 75 mg capsule,extended release 24hr PO potassium chloride 20 mEq tablet,ER particles/crystals PO furosemide 20 mg tablet oxycodone 5 mg tablet Primary Care Provider: Basilio Flores Referrals: Basilio Flores MD [Primary Care Provider] - Activity Restrictions/Additional Instructions: Lab work including CBC, BMP, urinalysis and CT of the head, cervical spine as well as x-ray of the right elbow do not show any acute injury or abnormalities. The cause of Justus's frequent falls is not clear however at this time I do not think she requires admission to the hospital. Disposition Disposition: Home, Self Care
[2023-06-05] MEDS: Diphth,Pertuss(Acell),Tet Vac 0.5 ML Vial IM (05:05)
--- OUTSIDE RECORDS SUMMARY | 2023-06-05 05:15 | XMS RPT_ITS | CCD ---
Author Name Unknown Address [address] [place] [address] Organization [facility] Care Team Providers Care Supervisor [employer] Name Role Phone Rachael Newman MD Unavailable [phone] Allergies Allergy Classification Reported Allergen(s) Allergy Type Date of Onset Reaction(s) Facility (1 source) Acetaminophen / HYDROcodone Drug Allergy 03-16-20 19 unknown [facility] Work Phone: (1 source) Acetaminophen / oxyCODONE Drug Allergy 03-16-20 19 unknown [facility] Work Phone: (1 source) Acetaminophen / Propoxyphene Drug Allergy 03-16-20 19 unknown [facility] Work Phone: (1 source) Baclofen Drug Allergy 03-16-20 19 unknown [facility] Work Phone: (1 source) Carbidopa / Levodopa Drug Allergy 03-16-20 19 unknown [facility] Work Phone: (1 source) Ibuprofen Drug Allergy 03-16-20 19 kidney disease [facility] Work Phone: (1 source) Ketoprofen Drug Allergy 03-16-20 19 unknown [facility] Work Phone: (1 source) LORazepam Drug Allergy 03-16-20 19 unknown [facility] Work Phone: (1 source) metFORMIN Drug Allergy 03-16-20 19 unknown [facility] Work Phone: (1 source) Naloxone Drug Allergy 03-16-20 19 unknown [facility] Work Phone: (1 source) oxaprozin Drug Allergy 03-16-20 19 unknown [facility] Work Phone: (1 source) rofecoxib Drug Allergy 03-16-20 19 unknown [facility] Work Phone: (1 source) rosiglitazone Drug Allergy 03-16-20 19 siblings had severe reactions [facility] Work Phone: (1 source) Sertraline Drug Allergy 03-16-20 19 unknown [facility] Work Phone: (1 source) Simvastatin Drug Allergy 03-16-20 19 unknown [facility] Work Phone: (1 source) Sulfamethoxazole / Trimethoprim Drug Allergy 03-16-20 19 unknown [facility] Work Phone: (1 source) venlafaxine; Translations: [EFFEXOR] Drug Allergy 03-16-20 19 unknown [facility] Work Phone: Medications Completed/Discontinued Medications Medication Drug Class(es) Dates Sig (Normalized) Sig (Original) acetaminophen 325 mg oral capsule (1 source) Start: 03-16-2019 TYLENOL 325 MG CAPS takes two tabs every 4 hours as needed ACETAMINOPHEN [id number] Rachael Newman MD amoxicillin 500 mg oral capsule (1 source) Penicillin-class Antibacterial Start: 03-16-2019 AMOXICILLIN 500 MG CAPS takes as directed prior to dental procedures AMOXICILLIN [id number] Rachael Newman MD atorvastatin 40 mg oral tablet (1 source) HMG-CoA Reductase Inhibitor Start: 03-16-2019 LIPITOR 40 MG TABS takes one tab once daily ATORVASTATIN CALCIUM [id number] Rachael Newman MD diphenhydrAMINE hydrochloride 25 mg oral tablet (2 sources) Histamine-1 Receptor Antagonist Start: 03-16-2019 BANOPHEN 25 MG TABS takes one tab daily DIPHENHYDRAMINE HCL [id number] Rachael Newman MD Problems Active Problems Problem [...] Sign Value Performing Clinician Facility NEGATED: Highlighted [id number] 14:06-0500 BMI (Body Mass Index) 44.85 kg/m2 Arcenio Moreira AT [facility] Work Phone: NEGATED: Highlighted [id number] 14:06-0500 Body weight 102.06 kg Arcenio Moreira AT [facility] Work Phone: NEGATED: Highlighted [id number] 14:06-0500 Body weight 102 kg Arcenio Moreira AT [facility] Work Phone: NEGATED: Highlighted [id number] 14:06-0500 BP Diastolic 68 mm[Hg] Arcenio Sittiana AT [facility] Work Phone: NEGATED: Highlighted [id number] 14:06-0500 BP Systolic 124 mm[Hg] Arcenio Sittiana AT [facility] Work Phone: NEGATED: Highlighted [id number] 14:06-0500 Height 151.13 cm Arcenio Moreira AT [facility] Work Phone: NEGATED: Highlighted [id number] 14:06-0500 Height 151 cm Arcenio Sittiana AT [facility] Work Phone: NEGATED: Highlighted [id number] 14:06-0500 Pulse (Heart Rate) 101 /min Arcenio Moreira AT [facility] Work Phone: Encounters Encounter Date Encounter Type Care Provider Facility Start: 03-16-2019 End: 03-16-2019 Patient encounter procedure Rachael Newman MD Work Phone: [facility] Work Phone: Procedures Date [...] Author Start: 03-16-2019 End: 03-16-2019 Appointment Appointment [facility] Work Phone: Social History Date Type Detail Facility NEGATED: Highlighted rowStart: 03-16-2019 End: 03-16-2019 Alcohol use Alcohol use [facility] Work Phone: NEGATED: Highlighted rowStart: 03-16-2019 End: 03-16-2019 Details of drug misuse behavior Details of drug misuse behavior [facility] Work Phone: NEGATED: Highlighted rowStart: 03-16-2019 End: 03-16-2019 Assertion Never smoker [facility] Work Phone: Chief Complaint [...] BE BASED ON THE PRIMARY CLINICAL RECORDS. [employer] provides no warranty or guarantee of the accuracy or completeness of information in this document.
[2023-06-05 05:29] LABS: Absolute Lymphocyte Count 1.18 X10^3/uL (0.83-4.51); Absolute Neutrophil Count 6.6 X10^3/uL (2.0-7.7); Basophil# 0.05 X10^3/uL; Basophil% 0.6 % (0-1); Eosinophil# 0.17 X10^3/uL; Hematocrit 42.1 % (37-47); Hemoglobin 13.2 g/dL (12.0-15.0); Lymphocyte # 1.18 X10^3/ul (0.83-4.51); Lymphocyte % 13.6 % (19-41); Mean Corp Hgb Conc 31.4 g/dL (32-36); Mean Corpuscular Hgb 29.1 pg (27.0-32.0); Mean Corpuscular Volume 92.9 fL (81-99); Mean Platelet Vol. 10.3 fl (6.2-12.0); Monocyte# 0.62 X10^3/uL; Monocyte% 7.2 % (0-10); NRBC Flagged by Analyzer 0 % (0-5); Neutrophil # 6.61 X10^3/uL (2.7-7.7); Neutrophil % 76.3 % (47-70); Platelet Count 180 K/mm3 (150-450); RBC Distribution Width CV 12.6 % (11.6-14.6); RBC Distribution Width SD 43.4 fl (35.1-43.9); Red Blood Count 4.53 M/mm3 (4.2-5.4); White Blood Count 8.7 K/mm3 (4.4-11.0)
[2023-06-05 05:44] LABS: Anion Gap 1 (5-15); BUN 17 mg/dL (7-18); BUN/Creat Ratio 21.9 RATIO (10-20); Calcium,Total 9.3 mg/dL (8.5-10.1); Chloride 104 mmol/L (98-107); Creatinine, Serum 0.78 mg/dL (0.55-1.02); EST Glomerular Filtration Rate 76 mL/min (>60); Est Glom Filt Rate - Afr Amer 92 mL/min (>60); Estimated Creatinine Clearance 48.43 ml/min; Glucose 150 mg/dL (74-106); Potassium 3.6 mmol/L (3.5-5.1); Sodium Level 137 mmol/L (136-145)
[2023-06-05 06:33] VITALS: BP 133/77; PULSE 68; RESP 15; O2SAT 97
[2023-06-05 06:35] LABS: Bacteria 0 SEEN /hpf (None Seen); Mucous, Urine 0 SEEN /hpf (<or=2+); Red Blood Cells-Urine 0 SEEN /hpf (0-5)
[2023-06-05 06:37] LABS: Color, Urine Yellow (Yellow); Glucose, Dipstick 1000 mg/dl (Normal); Ketone-Dipstick Negative (Negative); Leukocyte Esterase-Dipstick 100 /ul (Negative); Nitrite-Dipstick Negative (Negative); Occult Blood-Urine 50 /ul (Negative); Protein-Dipstick 15 mg/dl (Negative); Specific Gravity, Urine 1.015 (1.002-1.030); Urine Bilirubin Dipstick Negative (Negative); Urine Clarity Sl. Cloudy (Clear); Urine Urobilinogen Normal (Normal)
[2023-06-05 07:04] LABS: Squamous Epithelial Cells - UA 5-10 SEEN /hpf (5-10); White Blood Cells 5-10 SEEN /hpf (0-5)
--- NOTE | 2023-06-05 08:26 | NURSING ---
CALLED [facility], ETA IS 1 HR
[2023-06-05 08:33] VITALS: BP 142/67; PULSE 81; RESP 16; O2SAT 93
== END 2023-06-05 09:30 | disposition home or self-care (01) ==
PROVIDERS: Emergency Provider Emergency Medicine; PCP Family Medicine; Visit Provider Emergency Medicine
DX: S01.81XA Laceration without foreign body of other part of head, initial encounter (principal); E11.9 Type 2 diabetes mellitus without complications; Z79.4 Long term (current) use of insulin; W05.0XXA Fall from non-moving wheelchair, initial encounter; I10 Essential (primary) hypertension; K21.9 Gastro-esophageal reflux disease without esophagitis; Z23 Encounter for immunization
CPT/HCPCS: 12011; 70450; 72125; 73080; 80048; 81001; 85025; 90471; 90715; 93005; 99283; A4216

== ENCOUNTER 2023-06-08 08:03 | Emergency (ER) | payer MEDICARE, MEDICAID, SELFPAY ==
[2023-06-08 08:04] VITALS: BP 161/52; PULSE 54; RESP 16; TEMP 36.6; O2SAT 98; BMI 25.7
--- NOTE | 2023-06-08 08:08 | EDS_ITS ---
HPI HPI - Fall History of Present Illness Chief Complaint: Fall PFSH PFSH Medical History Anxiety and depression Arthritis Asthma Back problem Bladder cancer Cataracts, bilateral Chronic headaches Gallstones GERD (gastroesophageal reflux disease) Heart murmur High cholesterol Hives HTN (hypertension) Liver disease Neuropathy Osteoarthritis Osteopenia Pain in both knees Recurrent infections Recurrent UTI Skin cancer Type 2 diabetes mellitus Vision problems Home Medications acetaminophen 325 mg tablet 650 mg PO Q6H CHRONIC PAIN 09/20/17 [History Last Taken 12/16/19] insulin glargine 100 unit/mL subcutaneous solution 42 unit subcut QPM DM 12/16/19 [History Last Taken 12/16/19] dapagliflozin propanediol 10 mg tablet (Farxiga) 10 mg PO DAILY 06/05/23 [History Last Taken Unknown] furosemide 20 mg tablet 20 mg PO DAILY 06/05/23 [History Last Taken Unknown] linaclotide 290 mcg capsule (Linzess) 290 mcg PO DAILY 06/05/23 [History Last Taken Unknown] metformin 750 mg tablet,extended release 24 hr 750 mg PO BID 06/05/23 [History Last Taken Unknown] oxycodone 5 mg tablet 5 mg PO Q12H 06/05/23 [History Last Taken Unknown] potassium chloride 20 mEq tablet,extended release(part/cryst) 40 meq PO DAILY 06/05/23 [History Last Taken Unknown] venlafaxine 75 mg capsule,extended release 24 hr 75 mg PO DAILY 06/05/23 [History Last Taken Unknown] glucagon 1 mg solution for injection (Glucagon Emergency Kit) 1 mg IM PRN 06/08/23 [History Last Taken Unknown] insulin glargine 100 unit/mL (3 mL) subcutaneous pen (Lantus Solostar U-100 Insulin) 20 unit subcut DAILY 06/08/23 [History Last Taken Unknown] lidocaine 5 % topical patch (DermacinRx Lidocan) 1 patch topical DAILY 06/08/23 [History Last Taken Unknown] polyethylene glycol 3350 17 gram/dose oral powder (ClearLax) 17 g PO DAILY PRN constipation 06/08/23 [History Last Taken Unknown] polyethylene glycol 400 1 % eye drops (Dry Eye Relief (PEG 400)) 1 drp EACH EYE Q6H PRN dry eye(s) 06/08/23 [History Last Taken Unknown] promethazine 12.5 mg tablet 12.5 mg PO Q6H PRN nausea and vomiting 06/08/23 [History Last Taken Unknown] ropinirole 0.5 mg tablet 0.5 mg PO DAILY 06/08/23 [History Last Taken Unknown] Allergy/AdvReac Type Severity Reaction Status Date / Time sulfamethoxazole Allergy Rash Verified 06/05/23 03:49 [From Bactrim] trimethoprim [From Bactrim] Allergy Rash Verified 06/05/23 03:49 carbidopa [From Sinemet] AdvReac Nausea Verified 06/05/23 03:49 hydrocodone bitartrate AdvReac Nausea Verified 06/05/23 03:49 [From Vicodin] ketoprofen [From Orudis] AdvReac Unknown Verified 06/05/23 03:49 levodopa [From Sinemet] AdvReac Nausea Verified 06/05/23 03:49 lorazepam [From Ativan] AdvReac hallucinati Verified 06/05/23 03:49 on metformin HCl AdvReac Nausea Verified 06/05/23 03:49 [From Glucophage] naloxone AdvReac Nausea Verified 06/05/23 03:49 NSAIDS (Non-Steroidal AdvReac PT UNSURE Verified 06/05/23 03:49 Anti-Inflamma OF REACTION oxaprozin [From Daypro] AdvReac Nausea Verified 06/05/23 03:49 oxycodone HCl [From Percocet] AdvReac Nausea Verified 06/05/23 03:49 propoxyphene HCl AdvReac Nausea Verified 06/05/23 03:49 [From Darvon] rofecoxib [From Vioxx] AdvReac Nausea Verified 06/05/23 03:49 rosiglitazone maleate AdvReac Nausea Verified 06/05/23 03:49 [From Avandia] sertraline HCl [From Zoloft] AdvReac haullucinat Verified 06/05/23 03:49 ion simvastatin [From Zocor] AdvReac Nausea Verified 06/05/23 03:49 venlafaxine HCl AdvReac Nausea Verified 06/05/23 03:49 [From Effexor] Family History Unknown Asthma Arthritis Cancer Diabetes Heart disease Hypertension High cholesterol Kidney stones Liver disease Osteoporosis Skin cancer CVA (cerebral vascular accident) Social History Smoking Status: Never smoker second hand exposure: No alcohol intake: never substance use type: does not use EXAM Physical Exam Const Vital Signs: 06/08/23 08:04 06/08/23 08:10 06/08/23 09:40 Temperature 97.9 F Temperature Source Oral Pulse Rate 54 L 82 Respiratory Rate 16 16 Respiratory Effort Normal Non-Labored Respiratory Depth Normal Respiratory Pattern Normal Blood Pressure 161/52 H 135/77 H Blood Pressure Mean 88 96 Pulse Ox 98 98 98 Oxygen Delivery Method Room Air Room Air MDM MDM MDM Narrative Medical decision making narrative: HISTORY OF PRESENT ILLNESS: 82-year-old female presents with fall. Patient notes mechanical fall from standing with head trauma and right shoulder pain. Denies any loss of consciousness. Denies any syncope prior to fall. REVIEW OF SYSTEMS: Pertinent positives: Right shoulder/right arm pain Pertinent negatives: Headache, loss sensation, loss of movement, chest pain, shortness of breath, palpitations, nausea, vomiting, urinary complaints, focal weakness. PHYSICAL EXAM: Nursing triage notes reviewed, Vital signs reviewed Primary Survey Airway: Intact Breathing: Bilateral breath sounds Circulation: Palpable bilateral femorals, Palpable bilateral radial, Palpable bilateral DP and Palpable bilateral PT Disability / Spine precautions GCS Score: Eye Openin Verbal Response: 5 Motor Response: 6 Secondary Survey Constitutional: Please see MDM Head: Midface stable, NO jaw malocclusion, No Cephalohematoma, ecchymosis noted to the face from recent trauma Eye: Pupils equal round and reactive to light, Extraocular muscles intact and No or stepoff, no evidence of entrapment, + periorbital ecchymosis ENT: Oropharynx clear, no lacerations, no hemotympanum, no raccoon eyes or ordaz sign Cervical spine / Neck: No cervical spine bony tenderness, crepitance, or stepoff deformity Trachea midline Lungs: Clear to auscultation, No asymmetric rise and No crepitus, no flail chest Cardiac: Regular rate and rhythm and No murmurs Abdomen: Soft, Nontender and No rebound Pelvis: Pelvis stable to compression : No evidence of genital injury Back: No midline bony tenderness to thoracic/lumbar/sacral spines Neuro: Patient was alert and orient x 3, at baseline, intact strength and sensation in bilateral upper and lower extremities. 2+ patellar reflexes bilaterally. Extremities: NO gross Deformities, intact range of motion upper and lower extremities. TTP over right shoulder and right elbow Psych: Normal affect Nursing triage notes reviewed, Vital signs reviewed MEDICAL DECISION MAKING: Chief Complaint: Fall External records reviewed: Recent ED visit for similar symptoms at that time patient had a CT scan of the head, cervical spine and x-ray of the right elbow that was negative. Factors affecting care: type 2 diabetes, atrial fibrillation, CKD, GERD, lipidemia, hypertension, Parkinson's disease Social determinants of health: halfway resident History obtained from others: EMS Consults: none MDM Narrative: Patient was hemodynamically stable, afebrile, nontoxic-appearing. Primary secondary trauma surveys concerning for intracranial, cervical spine and right arm traumatic abnormalities. I considered the following differential diagnosis: ICH, subdural hematoma, cervical spine fracture, skull fracture, shoulder fracture dislocation, humerus fracture I obtained images to further elucidate the etiology of the patient's complaint. ALL IMAGES (IF OBTAINED) HAVE BEEN PERSONALLY REVIEWED AND INTERPRETED BY MYSELF. X-ray of the patient's right shoulder, right humerus read and reviewed myself shows no evidence of obvious bony pathology. CT scan of the head and neck are negative. Tertiary exam without evidence of new traumatic injury. The patient is a current skilled nursing resident and has adequate medical resources to be managed as an outpatient in the skilled nursing setting. She was given instructions take Tylenol, ibuprofen as needed for pain. The patient and/or family, caregivers express understanding. The patient and/or family, caregivers agrees with the plan. Shared decision making: I will have a discussion with the patient and or visitors regarding risk/benefits of further testing or admission. They will be made aware of of the risk/benefits inherent in this decision they will be given the opportunity to voice understanding. Total critical care time today provided was at least 0 minutes. This excludes separately billable procedures. Critical care time (if documented) is secondary to the patient having high probability of clinically significant/life threatening deterioration in the patient's condition which required my urgent intervention. Impression: 1. Fall 2. Facial contusion 3. Arm contusion Dispo: Discharge back to skilled nursing This note was generated with [employer] software. It may contain incorrect words, spelling, and punctuation that were not noted in review of the chart prior to signing. Radiography Diagnostic Testing: Clinical Impression(s) from Imaging Studies Brain CT 06/08/23 08:18 IMPRESSION: Chronic involutional changes of the brain. No acute hemorrhage, midline shift or mass effect Small right frontal scalp hematoma without fracture Electronically Signed: Jesse Santana MD at 9:17 EST , Cervical Spine CT 06/08/23 08:18 IMPRESSION: Multilevel degenerative changes, as described above. No acute abnormalities Likely chronic subluxation at C4-5 Electronically Signed: Jesse Santana MD at 9:21 EST , Humerus X-Ray 06/08/23 08:38 IMPRESSION: Demineralization of the humerus, no demonstrated fracture or suspicious osseous lesion. Age consistent glenohumeral and elbow joint arthrosis Electronically Signed: Jesse Santana MD at 9:22 EST , Shoulder X-Ray 06/08/23 08:38 IMPRESSION: Glenohumeral and acromioclavicular arthrosis without acute traumatic injury. No upper rib fracture or pneumothorax Electronically Signed: Jesse Santana MD at 9:22 EST , Discharge Plan Triage Chief Complaint: Fall ED Provider: Lam Guallpa Dx/Rx/DC Orders Clinical Impression: Arm contusion, Fall Instructions: Bone Contusion, ED Fall Prevention Prescriptions: No Action acetaminophen 325 MG tablet 650 mg PO Q6H insulin glargine 100 UNIT/ML solution 42 unit subcut QPM metformin 750 mg tablet extended release 24 hr 750 mg PO BID Linzess 290 mcg capsule 290 mcg PO DAILY dapagliflozin propanediol [Farxiga] 10 mg tablet 10 mg PO DAILY venlafaxine 75 mg capsule,extended release 24hr 75 mg PO DAILY potassium chloride 20 mEq tablet,ER particles/crystals 40 meq PO DAILY furosemide 20 mg tablet 20 mg PO DAILY oxycodone 5 mg tablet 5 mg PO Q12H Glucagon Emergency Kit (human) 1 mg recon soln 1 mg IM PRN promethazine 12.5 mg tablet 12.5 mg PO Q6H PRN (Reason: nausea and vomiting) polyethylene glycol 3350 [ClearLax] 17 gram/dose powder 17 g PO DAILY PRN (Reason: constipation) lidocaine [DermacinRx Lidocan] 5 % adhesive patch,medicated 1 patch topical DAILY Rx Instructions: leave on most painful area for up to 12 hrs Dry Eye Relief (PEG 400) 1 % drops 1 drp EACH EYE Q6H PRN (Reason: dry eye(s)) insulin glargine [Lantus Solostar U-100 Insulin] 100 unit/mL (3 mL) insulin pen 20 unit SUBCUT DAILY Rx Instructions: NOON ropinirole 0.5 mg tablet 0.5 mg PO DAILY Primary Care Provider: Basilio Flores Referrals: Basilio Flores MD [Primary Care Provider] - Activity Restrictions/Additional Instructions: Thank you for trusting us with your care today! Please take Tylenol (2 pills, 650 mg), ibuprofen (2 pills, 400 mg) every 6 hours as needed for pain and fever control. Please return to the emergency department if your symptoms change or worsen. Please follow with your primary care physician for further outpatient evaluation and management. Disposition Disposition: Home, Self Care
[2023-06-08 08:10] VITALS: O2SAT 98
--- NOTE | 2023-06-08 08:18 | CT_ITS ---
STUDY: CT CERVICAL SPINE WITHOUT CONTRAST REASON FOR EXAM: Female, 82 years old. Headache and neck pain after a fall RADIATION DOSAGE (If Supplied By Facility): CTDIvol = ( 13.04 ) mGy, DLP = ( 227.15 ) mGycm TECHNIQUE: High resolution transaxial imaging was performed without contrast material. Sagittal and coronal images were reconstructed. Individualized dose optimization techniques were used for this CT. COMPARISON: None FINDINGS: Normal craniovertebral junction. There are degenerative changes of the anterior atlantoaxial articulation. There are erosions of the tip of the odontoid process. There is straightening of the normal cervical lordosis. Bones are diffusely demineralized. There is anatomic alignment from C1 to C4. There is 4 to 5 mm of posterior subluxation of C5 on C4. This is likely chronic as there is no soft tissue swelling or other evidence of acute injury. C2-3: Normal endplates. Disc space narrowing.. Normal central canal and intervertebral neuroforamina. C3-4: Normal endplates. Disc space narrowing with small uncovertebral spurs. No central canal narrowing. There is mild bilateral foraminal narrowing due to facet joint hypertrophy. C4-5: Sclerotic endplate changes with subchondral erosions in the anterior inferior endplate of C4. There is disc space narrowing with uncovertebral spurring. No central canal narrowing, bilateral foraminal narrowing due to the aforementioned subluxation and facet joint hypertrophy. C5-6: There is essentially interbody fusion between C5 and C6. There is no central canal narrowing, there is bilateral foraminal narrowing due to facet joint hypertrophy. C6-7: Sclerotic endplate changes with uncovertebral spurs. No central canal narrowing, bilateral foraminal narrowing due to facet joint hypertrophy. C7-T1: Normal endplates. Disc space narrowing.. Normal central canal and intervertebral neuroforamina. Soft tissues show peripheral calcifications in the distal vertebral arteries. There are calcifications within the carotid artery bulbs. No airway narrowing or deviation. Thyroid gland is unremarkable, lung apices are clear CT/Spine Cervical without Contras IMPRESSION: Multilevel degenerative changes, as described above. No acute abnormalities Likely chronic subluxation at C4-5 Electronically Signed: Jesse Santana MD at 9:21 EST ,
--- NOTE | 2023-06-08 08:18 | CT_ITS ---
STUDY: CT BRAIN WITHOUT CONTRAST REASON FOR EXAM: Female, 82 years old. Headache after fall RADIATION DOSAGE (If Supplied By Facility): CTDIvol = ( 44.99 ) mGy, DLP = ( 779.24 ) mGycm TECHNIQUE: Transaxial CT imaging of the brain was performed without administration of intravenous contrast material. Individualized dose optimization techniques were used for this CT. COMPARISON: No relevant priors. FINDINGS: Small right frontal scalp hematoma without skull fracture. Normal size ventricles and extra-axial spaces for the patient''s age. Normal white matter tracts of the cerebral hemispheres. There are small punctate calcifications of the basal ganglia which are seen in the aging brain as a normal variant. Normal brainstem. Normal cerebellum. There is no intracranial hemorrhage. There are no findings of an acute ischemic infarction. Normal visualized paranasal sinuses. CT/Brain/Head without Contrast IMPRESSION: Chronic involutional changes of the brain. No acute hemorrhage, midline shift or mass effect Small right frontal scalp hematoma without fracture Electronically Signed: Jesse Santana MD at 9:17 EST ,
--- NOTE | 2023-06-08 08:38 | RAD_ITS ---
STUDY: X-RAY - RIGHT SHOULDER REASON FOR EXAM: Female, 82 years old. Pain after fall TECHNIQUE: 2 view(s) of the shoulder. COMPARISON: None. FINDINGS: There is moderate degenerative arthrosis of the glenohumeral articulation. There is degenerative arthrosis of the acromioclavicular joint without inferior osseous spur formation. Normal acromion. Normal humeral head and visualized proximal humerus. The soft tissue structures are unremarkable. Normal visualized pulmonary apex. RAD/Shoulder min 2 Views IMPRESSION: Glenohumeral and acromioclavicular arthrosis without acute traumatic injury. No upper rib fracture or pneumothorax Electronically Signed: Jesse Santana MD at 9:22 EST ,
--- NOTE | 2023-06-08 08:38 | RAD_ITS ---
STUDY: X-RAY - RIGHT HUMERUS REASON FOR EXAM: Female, 82 years old. pain TECHNIQUE: 3 view(s) of the humerus. COMPARISON: None. FINDINGS: There is diffuse demineralization of the humerus. There is no demonstrated fracture or osseous destructive process. There is no demonstrated soft tissue abnormality. RAD/Humerus min 2 Views IMPRESSION: Demineralization of the humerus, no demonstrated fracture or suspicious osseous lesion. Age consistent glenohumeral and elbow joint arthrosis Electronically Signed: Jesse Santana MD at 9:22 EST ,
--- OUTSIDE RECORDS SUMMARY | 2023-06-08 09:13 | XMS RPT_ITS | CCD ---
Author Name Unknown Address [address] [place] [address] Organization [facility] Care Team Providers Care Telecommunications Field Engineer Name Role Phone Rachael Newman MD Unavailable Allergies Allergy Classification Reported Allergen(s) Allergy Type Date of Onset Reaction(s) Facility (1 source) Acetaminophen / HYDROcodone Drug Allergy 03-16-20 19 unknown [facility] Work Phone: (1 source) Acetaminophen / oxyCODONE Drug Allergy 03-16-20 19 unknown [facility] Work Phone: (1 source) Acetaminophen / Propoxyphene Drug Allergy 03-16-20 19 unknown [facility] Work Phone: (1 source) Baclofen Drug Allergy 03-16-20 19 unknown [facility] Work Phone: (1 source) Carbidopa / Levodopa Drug Allergy 03-16-20 19 unknown [facility] Work Phone: (1 source) Ibuprofen Drug Allergy 03-16-20 19 kidney disease [facility] Work Phone: (1 source) Ketoprofen Drug Allergy 03-16-20 19 unknown [facility] Work Phone: (1 source) LORazepam Drug Allergy 03-16-20 19 unknown [facility] Work Phone: (1 source) metFORMIN Drug Allergy 03-16-20 19 unknown [facility] Work Phone: (1 source) Naloxone Drug Allergy 03-16-20 19 unknown [facility] Work Phone: (1 source) oxaprozin Drug Allergy 03-16-20 19 unknown [facility] Work Phone: (1 source) rofecoxib Drug Allergy 03-16-20 19 unknown [facility] Work Phone: (1 source) rosiglitazone Drug Allergy 03-16-20 19 siblings had severe reactions [facility] Work Phone: (1 source) Sertraline Drug Allergy 03-16-20 19 unknown [facility] Work Phone: (1 source) Simvastatin Drug Allergy 03-16-20 19 unknown [facility] Work Phone: (1 source) Sulfamethoxazole / Trimethoprim Drug Allergy 03-16-20 19 unknown [facility] Work Phone: (1 source) venlafaxine; Translations: [EFFEXOR] Drug Allergy 03-16-20 19 unknown [facility] Work Phone: Medications Completed/Discontinued Medications Medication Drug Class(es) Dates Sig (Normalized) Sig (Original) acetaminophen 325 mg oral capsule (1 source) Start: 03-16-2019 TYLENOL 325 MG CAPS takes two tabs every 4 hours as needed ACETAMINOPHEN [id number] Rachael Newman MD amoxicillin 500 mg oral capsule (1 source) Penicillin-class Antibacterial Start: 03-16-2019 AMOXICILLIN 500 MG CAPS takes as directed prior to dental procedures AMOXICILLIN [id number] Rachael Newman MD atorvastatin 40 mg oral tablet (1 source) HMG-CoA Reductase Inhibitor Start: 03-16-2019 LIPITOR 40 MG TABS takes one tab once daily ATORVASTATIN CALCIUM [id number] Rachael Newman MD diphenhydrAMINE hydrochloride 25 mg oral tablet (2 sources) Histamine-1 Receptor Antagonist Start: 03-16-2019 BANOPHEN 25 MG TABS takes one tab daily DIPHENHYDRAMINE HCL [id number] Rachael Newman MD Problems Active Problems Problem [...] Sign Value Performing Clinician Facility NEGATED: Highlighted [id number] 14:06-0500 BMI (Body Mass Index) 44.85 kg/m2 Arcenio Moreira AT [facility] Work Phone: NEGATED: Highlighted [id number] 14:06-0500 Body weight 102.06 kg Arcenio Moreira AT [facility] Work Phone: NEGATED: Highlighted [id number] 14:06-0500 Body weight 102 kg Arcenio Moreira AT [facility] Work Phone: NEGATED: Highlighted [id number] 14:06-0500 BP Diastolic 68 mm[Hg] Arcenio Sittiana AT [facility] Work Phone: NEGATED: Highlighted [id number] 14:06-0500 BP Systolic 124 mm[Hg] Arcenio Sittiana AT [facility] Work Phone: NEGATED: Highlighted [id number] 14:06-0500 Height 151.13 cm Arcenio Moreira AT [facility] Work Phone: NEGATED: Highlighted [id number] 14:06-0500 Height 151 cm Arcenio Sittiana AT [facility] Work Phone: NEGATED: Highlighted [id number] 14:06-0500 Pulse (Heart Rate) 101 /min Arcenio Moreira AT [facility] Work Phone: Encounters Encounter Date Encounter Type Care Provider Facility Start: 03-16-2019 End: 03-16-2019 Patient encounter procedure Rachael Newman MD Work Phone: [facility] Work Phone: Procedures Date [...] Phone: Start: 03-16-2019 End: 03-16-2019 Tobacco non-user Racahel Newman MD Work Phone: NEGATED: Highlighted rowStart: 03-16-2019 End: 03-16-2019 Documentation of current medications Arcenio Moreira AT Plan of Treatment Date Care Activity Detail Author Start: 03-16-2019 End: 03-16-2019 Appointment Appointment [facility] Work Phone: Social History Date Type Detail Facility NEGATED: Highlighted rowStart: 03-16-2019 End: 03-16-2019 Alcohol use Alcohol use [facility] Work Phone: NEGATED: Highlighted rowStart: 03-16-2019 End: 03-16-2019 Details of drug misuse behavior Details of drug misuse behavior [facility] Work Phone: NEGATED: Highlighted rowStart: 03-16-2019 End: 03-16-2019 Assertion Never smoker [facility] Work Phone: Chief Complaint [...] BE BASED ON THE PRIMARY CLINICAL RECORDS. [employer] provides no warranty or guarantee of the accuracy or completeness of information in this document.
[2023-06-08 09:40] VITALS: BP 135/77; PULSE 82; RESP 16; O2SAT 98
== END 2023-06-08 10:14 | disposition home or self-care (01) ==
PROVIDERS: Emergency Provider Emergency Medicine; PCP Family Medicine; Visit Provider Emergency Medicine
DX: S00.83XA Contusion of other part of head, initial encounter (principal); E11.40 Type 2 diabetes mellitus with diabetic neuropathy, unspecified; E11.22 Type 2 diabetes mellitus with diabetic chronic kidney disease; I48.91 Unspecified atrial fibrillation; Z79.4 Long term (current) use of insulin; W19.XXXA Unspecified fall, initial encounter; N18.9 Chronic kidney disease, unspecified; I12.9 Hypertensive chronic kidney disease with stage 1 through stage 4 chronic kidney disease, or unspecified chronic kidney disease; G20.C Parkinsonism, unspecified; K21.9 Gastro-esophageal reflux disease without esophagitis; S40.021A Contusion of right upper arm, initial encounter; E78.00 Pure hypercholesterolemia, unspecified; Z79.899 Other long term (current) drug therapy; Z79.84 Long term (current) use of oral hypoglycemic drugs; F41.8 Other specified anxiety disorders
CPT/HCPCS: 70450; 72125; 73030; 73060; 99282

== ENCOUNTER → 2023-06-11 | Outpatient (REF) | payer MEDICARE, MEDICAID, SELFPAY ==
[2023-06-11 09:59] LABS: Vitamin D,25 Hydroxy 29.3 ng/mL
[2023-06-11 10:04] LABS: Hematocrit 38.6 % (37-47); Hemoglobin 12.1 g/dL (12.0-15.0); Mean Corp Hgb Conc 31.3 g/dL (32-36); Mean Corpuscular Volume 92.6 fL (81-99); Platelet Count 190 K/mm3 (150-450); RBC Distribution Width CV 12.5 % (11.6-14.6); RBC Distribution Width SD 42.4 fl (35.1-43.9); Red Blood Count 4.17 M/mm3 (4.2-5.4)
[2023-06-11 10:31] LABS: ALB/GLOB Ratio 0.8 RATIO (0.9-2.4); AST(SGOT) 18 U/L (15-37); Alanine Aminotransfer ALT/SGPT 18 U/L (13-56); Albumin, Serum 3.1 g/dL (3.2-5.0); Alkaline Phosphatase 85 U/L (45-117); Anion Gap 6 (5-15); BUN 16 mg/dL (7-18); BUN/Creat Ratio 18.3 RATIO (10-20); Calcium,Total 9.2 mg/dL (8.5-10.1); Chloride 105 mmol/L (98-107); Creatinine, Serum 0.87 mg/dL (0.55-1.02); EST Glomerular Filtration Rate 66 mL/min (>60); Est Glom Filt Rate - Afr Amer 80 mL/min (>60); Globulin 3.8 g/dL (2.2-4.2); Glucose 92 mg/dL (74-106); Potassium 3.7 mmol/L (3.5-5.1); Protein, Total 6.9 g/dL (6.4-8.2); Sodium Level 140 mmol/L (136-145)
[2023-06-11 12:27] LABS: Hemoglobin A1c 8.7 % (3.8-5.6)
== END ==
LOC: OLS.WHLEAS 05:00
PROVIDERS: PCP Family Medicine; Visit Provider Internal Medicine
DX: E11.22 Type 2 diabetes mellitus with diabetic chronic kidney disease (principal); E11.21 Type 2 diabetes mellitus with diabetic nephropathy; N18.30 Chronic kidney disease, stage 3 unspecified; G20.A1 Parkinson's disease without dyskinesia, without mention of fluctuations
CPT/HCPCS: 36415; 80053; 82306; 83036; 85027

== ENCOUNTER → 2023-08-06 | Outpatient (REF) | payer MEDICARE, MEDICAID, SELFPAY ==
[2023-08-06 09:24] LABS: Hematocrit 39.7 % (37-47); Hemoglobin 12.4 g/dL (12.0-15.0); Mean Corp Hgb Conc 31.2 g/dL (32-36); Mean Corpuscular Hgb 28.9 pg (27.0-32.0); Mean Corpuscular Volume 92.5 fL (81-99); Mean Platelet Vol. 10.1 fl (6.2-12.0); Platelet Count 187 K/mm3 (150-450); RBC Distribution Width CV 13.3 % (11.6-14.6); RBC Distribution Width SD 45.2 fl (35.1-43.9); Red Blood Count 4.29 M/mm3 (4.2-5.4); White Blood Count 5.9 K/mm3 (4.4-11.0)
[2023-08-06 09:52] LABS: AST(SGOT) 15 U/L (15-37); Alanine Aminotransfer ALT/SGPT 13 U/L (13-56); Albumin, Serum 3.4 g/dL (3.2-5.0); Alkaline Phosphatase 59 U/L (45-117); Anion Gap 5 (5-15); BUN 11 mg/dL (7-18); BUN/Creat Ratio 14.4 RATIO (10-20); Chloride 105 mmol/L (98-107); Creatinine, Serum 0.76 mg/dL (0.55-1.02); EST Glomerular Filtration Rate 77 mL/min (>60); Est Glom Filt Rate - Afr Amer 94 mL/min (>60); Globulin 3.3 g/dL (2.2-4.2); Glucose 153 mg/dL (74-106); Protein, Total 6.7 g/dL (6.4-8.2); Sodium Level 139 mmol/L (136-145)
== END ==
LOC: OLS.WHLEAS 05:00
PROVIDERS: PCP Family Medicine; Visit Provider Internal Medicine
DX: E11.22 Type 2 diabetes mellitus with diabetic chronic kidney disease (principal); N18.30 Chronic kidney disease, stage 3 unspecified
CPT/HCPCS: 36415; 80053; 85027

== ENCOUNTER → 2023-09-10 | Outpatient (REF) | payer MEDICARE, MEDICAID, SELFPAY ==
[2023-09-10 12:14] LABS: Hemoglobin A1c 8.6 % (3.8-5.6)
== END ==
LOC: OLS.WHLEAS 05:00
PROVIDERS: PCP Family Medicine; Visit Provider Internal Medicine
DX: E11.22 Type 2 diabetes mellitus with diabetic chronic kidney disease (principal); N18.30 Chronic kidney disease, stage 3 unspecified
CPT/HCPCS: 36415; 82306; 83036

== ENCOUNTER → 2023-10-08 | Outpatient (REF) | payer MEDICARE, MEDICAID, SELFPAY ==
[2023-10-08 08:31] LABS: Hematocrit 38.2 % (37-47); Hemoglobin 11.9 g/dL (12.0-15.0); Mean Corp Hgb Conc 31.2 g/dL (32-36); Mean Corpuscular Hgb 28.9 pg (27.0-32.0); Mean Corpuscular Volume 92.7 fL (81-99); Mean Platelet Vol. 10.5 fl (6.2-12.0); Platelet Count 211 K/mm3 (150-450); RBC Distribution Width CV 13.2 % (11.6-14.6); Red Blood Count 4.12 M/mm3 (4.2-5.4); White Blood Count 5.2 K/mm3 (4.4-11.0)
[2023-10-08 08:43] LABS: ALB/GLOB Ratio 0.9 RATIO (0.9-2.4); AST(SGOT) 13 U/L (15-37); Alanine Aminotransfer ALT/SGPT 18 U/L (13-56); Albumin, Serum 3.3 g/dL (3.2-5.0); Alkaline Phosphatase 70 U/L (45-117); Anion Gap 6 (5-15); BUN 23 mg/dL (7-18); BUN/Creat Ratio 25.8 RATIO (10-20); Calcium,Total 9.2 mg/dL (8.5-10.1); Chloride 99 mmol/L (98-107); Cholesterol 167 mg/dL (200); Creatinine, Serum 0.89 mg/dL (0.55-1.02); EST Glomerular Filtration Rate 65 mL/min (>60); Est Glom Filt Rate - Afr Amer 78 mL/min (>60); Globulin 3.8 g/dL (2.2-4.2); Glucose 436 mg/dL (74-106); High Density Lipoprotein 64 mg/dL; Potassium 4.2 mmol/L (3.5-5.1); Protein, Total 7.1 g/dL (6.4-8.2); Sodium Level 133 mmol/L (136-145); Triglycerides 116 mg/dL; Very Low Density Lipoprotein 23 mg/dL (5-40)
== END ==
LOC: OLS.WHLEAS 05:00
PROVIDERS: PCP Family Medicine; Visit Provider Internal Medicine
DX: E11.22 Type 2 diabetes mellitus with diabetic chronic kidney disease (principal); E11.21 Type 2 diabetes mellitus with diabetic nephropathy; N18.30 Chronic kidney disease, stage 3 unspecified
CPT/HCPCS: 36415; 80053; 80061; 85027

== ENCOUNTER → 2023-12-10 | Outpatient (REF) | payer MEDICARE, MEDICAID, SELFPAY ==
[2023-12-10 10:50] LABS: Hematocrit 39.9 % (37-47); Hemoglobin 12.3 g/dL (12.0-15.0); Mean Corp Hgb Conc 30.8 g/dL (32-36); Mean Corpuscular Hgb 28.9 pg (27.0-32.0); Mean Corpuscular Volume 93.7 fL (81-99); Mean Platelet Vol. 10.3 fl (6.2-12.0); Platelet Count 197 K/mm3 (150-450); RBC Distribution Width SD 44.6 fl (35.1-43.9); Red Blood Count 4.26 M/mm3 (4.2-5.4); White Blood Count 6.1 K/mm3 (4.4-11.0)
[2023-12-10 11:03] LABS: ALB/GLOB Ratio 0.9 RATIO (0.9-2.4); AST(SGOT) 17 U/L (15-37); Alanine Aminotransfer ALT/SGPT 16 U/L (13-56); Albumin, Serum 3.3 g/dL (3.2-5.0); Alkaline Phosphatase 54 U/L (45-117); Anion Gap 6 (5-15); BUN 22 mg/dL (7-18); BUN/Creat Ratio 31.4 RATIO (10-20); Calcium,Total 9.7 mg/dL (8.5-10.1); Chloride 103 mmol/L (98-107); EST Glomerular Filtration Rate 85 mL/min (>60); Est Glom Filt Rate - Afr Amer 103 mL/min (>60); Globulin 3.7 g/dL (2.2-4.2); Glucose 136 mg/dL (74-106); Potassium 4.1 mmol/L (3.5-5.1); Sodium Level 140 mmol/L (136-145)
[2023-12-10 11:06] LABS: Hemoglobin A1c 8.1 % (3.8-5.6)
== END ==
LOC: OLS.WHLEAS 05:00
PROVIDERS: PCP Family Medicine; Visit Provider Internal Medicine
DX: E11.22 Type 2 diabetes mellitus with diabetic chronic kidney disease (principal); E11.21 Type 2 diabetes mellitus with diabetic nephropathy; N18.30 Chronic kidney disease, stage 3 unspecified; G20.A1 Parkinson's disease without dyskinesia, without mention of fluctuations
CPT/HCPCS: 36415; 80053; 82306; 83036; 85027

== ENCOUNTER → 2024-01-14 05:00 | Outpatient (REF) | payer MEDICARE, MEDICAID, SELFPAY ==
[2024-01-14 08:44] LABS: Absolute Lymphocyte Count 1.02 X10^3/uL (0.83-4.51); Absolute Neutrophil Count 4.9 X10^3/uL (2.0-7.7); Basophil# 0.03 X10^3/uL; Basophil% 0.5 % (0-1); Eosinophil# 0.09 X10^3/uL; Eosinophils% 1.4 % (0-5); Hematocrit 41.3 % (37-47); Lymphocyte # 1.02 X10^3/ul (0.83-4.51); Mean Corp Hgb Conc 31.5 g/dL (32-36); Mean Corpuscular Volume 92.2 fL (81-99); Mean Platelet Vol. 10.8 fl (6.2-12.0); Monocyte# 0.36 X10^3/uL; Monocyte% 5.7 % (0-10); NRBC Flagged by Analyzer 0 % (0-5); Neutrophil # 4.85 X10^3/uL (2.7-7.7); Neutrophil % 76.1 % (47-70); Platelet Count 202 K/mm3 (150-450); RBC Distribution Width CV 12.6 % (11.6-14.6); RBC Distribution Width SD 42.7 fl (35.1-43.9); Red Blood Count 4.48 M/mm3 (4.2-5.4); White Blood Count 6.4 K/mm3 (4.4-11.0)
[2024-01-14 09:03] LABS: Anion Gap 7 (5-15); BUN 19 mg/dL (7-18); BUN/Creat Ratio 24.5 RATIO (10-20); Calcium,Total 9.9 mg/dL (8.5-10.1); Chloride 100 mmol/L (98-107); Creatinine, Serum 0.77 mg/dL (0.55-1.02); EST Glomerular Filtration Rate 76 mL/min (>60); Est Glom Filt Rate - Afr Amer 92 mL/min (>60); Glucose 200 mg/dL (74-106); Potassium 4.1 mmol/L (3.5-5.1); Sodium Level 136 mmol/L (136-145)
== END ==
LOC: OLS.WHLEAS 05:00
PROVIDERS: PCP Family Medicine; Visit Provider Internal Medicine
DX: L03.90 Cellulitis, unspecified (principal)
CPT/HCPCS: 36415; 80048; 85025

== ENCOUNTER → 2024-02-04 | Outpatient (REF) | payer MEDICARE, MEDICAID, SELFPAY ==
[2024-02-04 09:21] LABS: Hematocrit 39.9 % (37-47); Hemoglobin 12.4 g/dL (12.0-15.0); Mean Corp Hgb Conc 31.1 g/dL (32-36); Mean Corpuscular Hgb 28.5 pg (27.0-32.0); Mean Corpuscular Volume 91.7 fL (81-99); Platelet Count 230 K/mm3 (150-450); RBC Distribution Width CV 12.6 % (11.6-14.6); RBC Distribution Width SD 42.3 fl (35.1-43.9); Red Blood Count 4.35 M/mm3 (4.2-5.4); White Blood Count 6.3 K/mm3 (4.4-11.0)
[2024-02-04 09:46] LABS: ALB/GLOB Ratio 0.8 RATIO (0.9-2.4); AST(SGOT) 15 U/L (15-37); Alanine Aminotransfer ALT/SGPT 14 U/L (13-56); Albumin, Serum 3.3 g/dL (3.2-5.0); Alkaline Phosphatase 62 U/L (45-117); Anion Gap 5 (5-15); BUN 12 mg/dL (7-18); BUN/Creat Ratio 18.4 RATIO (10-20); Calcium,Total 9.5 mg/dL (8.5-10.1); Chloride 103 mmol/L (98-107); Creatinine, Serum 0.65 mg/dL (0.55-1.02); EST Glomerular Filtration Rate 93 mL/min (>60); Est Glom Filt Rate - Afr Amer 112 mL/min (>60); Globulin 3.9 g/dL (2.2-4.2); Glucose 110 mg/dL (74-106); Potassium 3.7 mmol/L (3.5-5.1); Protein, Total 7.2 g/dL (6.4-8.2); Sodium Level 138 mmol/L (136-145)
== END ==
LOC: OLS.WHLEAS 05:00
PROVIDERS: PCP Family Medicine; Visit Provider Internal Medicine
DX: E11.22 Type 2 diabetes mellitus with diabetic chronic kidney disease (principal); N18.30 Chronic kidney disease, stage 3 unspecified; G20.A1 Parkinson's disease without dyskinesia, without mention of fluctuations
CPT/HCPCS: 36415; 80053; 85027

== ENCOUNTER → 2024-03-10 | Outpatient (REF) | payer MEDICARE, MEDICAID, SELFPAY ==
[2024-03-10 09:11] LABS: Vitamin D,25 Hydroxy 27.1 ng/mL
[2024-03-10 12:19] LABS: Hemoglobin A1c 8.6 % (3.8-5.6)
== END ==
LOC: OLS.WHLEAS 05:00
PROVIDERS: PCP Family Medicine; Visit Provider Internal Medicine
DX: E11.22 Type 2 diabetes mellitus with diabetic chronic kidney disease (principal); N18.30 Chronic kidney disease, stage 3 unspecified; G20.A1 Parkinson's disease without dyskinesia, without mention of fluctuations; E11.21 Type 2 diabetes mellitus with diabetic nephropathy
CPT/HCPCS: 36415; 82306; 83036

== ENCOUNTER → 2024-04-07 | Outpatient (REF) | payer MEDICARE, MEDICAID, SELFPAY ==
[2024-04-07 07:21] LABS: Hematocrit 43.4 % (37-47); Hemoglobin 13.5 g/dL (12.0-15.0); Mean Corp Hgb Conc 31.1 g/dL (32-36); Mean Corpuscular Hgb 28.7 pg (27.0-32.0); Mean Corpuscular Volume 92.1 fL (81-99); Mean Platelet Vol. 10.1 fl (6.2-12.0); Platelet Count 197 K/mm3 (150-450); RBC Distribution Width CV 12.5 % (11.6-14.6); RBC Distribution Width SD 42.9 fl (35.1-43.9); Red Blood Count 4.71 M/mm3 (4.2-5.4); White Blood Count 6.2 K/mm3 (4.4-11.0)
[2024-04-07 07:58] LABS: ALB/GLOB Ratio 1.1 RATIO (0.9-2.4); AST(SGOT) 13 U/L (15-37); Alanine Aminotransfer ALT/SGPT 16 U/L (13-56); Albumin, Serum 3.9 g/dL (3.2-5.0); Alkaline Phosphatase 67 U/L (45-117); Anion Gap 4 (5-15); BUN 15 mg/dL (7-18); BUN/Creat Ratio 20.6 RATIO (10-20); Calcium,Total 9.4 mg/dL (8.5-10.1); Chloride 102 mmol/L (98-107); Creatinine, Serum 0.73 mg/dL (0.55-1.02); EST Glomerular Filtration Rate 82 mL/min (>60); Est Glom Filt Rate - Afr Amer 99 mL/min (>60); Globulin 3.6 g/dL (2.2-4.2); Glucose 148 mg/dL (74-106); Protein, Total 7.5 g/dL (6.4-8.2); Sodium Level 139 mmol/L (136-145)
== END ==
LOC: OLS.WHLEAS 05:00
PROVIDERS: PCP Family Medicine; Visit Provider Internal Medicine
DX: E11.22 Type 2 diabetes mellitus with diabetic chronic kidney disease (principal); G20.C Parkinsonism, unspecified; N18.30 Chronic kidney disease, stage 3 unspecified
CPT/HCPCS: 36415; 80053; 85027

== ENCOUNTER → 2024-04-21 05:00 | Outpatient (REF) | payer MEDICARE, MEDICAID, SELFPAY | LOC: OLS.WHLEAS 05:00 | PROVIDERS: PCP Family Medicine; Visit Provider Internal Medicine | DX: E55.9 Vitamin D deficiency, unspecified (principal) | CPT/HCPCS: 36415; 82306 ==

== ENCOUNTER → 2024-06-02 | Outpatient (REF) | payer MEDICARE, MEDICAID, SELFPAY | LOC: OLS.WHLEAS 05:00 | PROVIDERS: PCP Family Medicine; Visit Provider Internal Medicine | DX: E55.9 Vitamin D deficiency, unspecified (principal) | CPT/HCPCS: 36415; 82306 ==

== ENCOUNTER → 2024-06-09 05:00 | Outpatient (REF) | payer MEDICARE, MEDICAID, SELFPAY ==
[2024-06-09 10:00] LABS: Hemoglobin A1c 8.6 % (3.8-5.6)
== END ==
LOC: OLS.WHLEAS 05:00
PROVIDERS: PCP Family Medicine; Visit Provider Internal Medicine
DX: G20.A1 Parkinson's disease without dyskinesia, without mention of fluctuations (principal); E11.22 Type 2 diabetes mellitus with diabetic chronic kidney disease; N18.30 Chronic kidney disease, stage 3 unspecified; E11.21 Type 2 diabetes mellitus with diabetic nephropathy
CPT/HCPCS: 36415; 83036

== ENCOUNTER → 2024-06-15 15:15 | Outpatient (REF) | payer MEDICARE, MEDICAID, SELFPAY ==
[2024-06-16 08:40] LABS: Color, Urine Yellow (Yellow); Glucose, Dipstick 1000 mg/dl (Normal); Ketone-Dipstick Negative (Negative); Leukocyte Esterase-Dipstick 25 /ul (Negative); Nitrite-Dipstick Negative (Negative); Occult Blood-Urine 150 /ul (Negative); Protein-Dipstick Negative (Negative); Urine Bilirubin Dipstick Negative (Negative); Urine Clarity Clear (Clear); Urine Urobilinogen Normal (Normal)
== END ==
LOC: OLS.WHLEAS 15:15
PROVIDERS: PCP Family Medicine; Visit Provider Internal Medicine
DX: G20.A1 Parkinson's disease without dyskinesia, without mention of fluctuations (principal); E11.22 Type 2 diabetes mellitus with diabetic chronic kidney disease; N18.30 Chronic kidney disease, stage 3 unspecified; E11.21 Type 2 diabetes mellitus with diabetic nephropathy; R41.82 Altered mental status, unspecified
CPT/HCPCS: 81002; 87086; 87088

== ENCOUNTER → 2024-07-14 | Outpatient (REF) | payer MEDICARE, MEDICAID, SELFPAY ==
[2024-07-14 08:47] LABS: Vitamin D,25 Hydroxy 33.9 ng/mL (30-100)
== END ==
LOC: OLS.WHLEAS 04:00
PROVIDERS: PCP Family Medicine; Referring Provider Internal Medicine; Visit Provider Internal Medicine
DX: E55.9 Vitamin D deficiency, unspecified (principal)
CPT/HCPCS: 36415; 82306

== ENCOUNTER → 2024-07-15 | Outpatient (REF) | payer MEDICARE, MEDICAID, SELFPAY ==
[2024-07-15 07:48] LABS: Absolute Lymphocyte Count 1.27 X10^3/uL (0.83-4.51); Absolute Neutrophil Count 4.2 X10^3/uL (2.0-7.7); Basophil# 0.03 X10^3/uL; Basophil% 0.5 % (0-1); Eosinophils% 1.7 % (0-5); Hematocrit 38.9 % (37-47); Hemoglobin 12.6 g/dL (12.0-15.0); Lymphocyte # 1.27 X10^3/ul (0.83-4.51); Lymphocyte % 21.1 % (19-41); Mean Corp Hgb Conc 32.4 g/dL (32-36); Mean Corpuscular Hgb 29.6 pg (27.0-32.0); Mean Corpuscular Volume 91.3 fL (81-99); Mean Platelet Vol. 10.7 fl (6.2-12.0); Monocyte# 0.45 X10^3/uL; Monocyte% 7.5 % (0-10); NRBC Flagged by Analyzer 0 % (0-5); Neutrophil # 4.17 X10^3/uL (2.7-7.7); Platelet Count 188 K/mm3 (150-450); RBC Distribution Width CV 13.2 % (11.6-14.6); RBC Distribution Width SD 43.9 fl (35.1-43.9); Red Blood Count 4.26 M/mm3 (4.2-5.4)
[2024-07-15 08:11] LABS: ALB/GLOB Ratio 1.5 RATIO (0.9-2.4); AST(SGOT) 18 U/L (<=31); Alanine Aminotransfer ALT/SGPT 9 U/L (<=34); Albumin, Serum 3.9 g/dL (3.4-4.8); Alkaline Phosphatase 59 U/L (35-104); Anion Gap 12 (5-15); BUN 11 mg/dL (4-19); BUN/Creat Ratio 17.5 RATIO (10-20); Calcium,Total 9.6 mg/dL (7.6-11.0); Carbon Dioxide 28.3 mmol/L (21.0-32.0); Chloride 98 mmol/L (98-108); Creatinine, Serum 0.65 mg/dL (0.70-1.20); EST Glomerular Filtration Rate 88 (>60); Globulin 2.6 g/dL (2.2-4.2); Glucose 322 mg/dL (70-99); Potassium 4.3 mmol/L (3.3-5.1); Protein, Total 6.6 g/dL (5.9-8.4); Sodium Level 138 mmol/L (133-145); Total Bilirubin 0.31 mg/dL (0.00-1.30)
[2024-07-15 08:13] LABS: Color, Urine Yellow (Yellow); Glucose, Dipstick 1000 mg/dl (Normal); Ketone-Dipstick Negative (Negative); Leukocyte Esterase-Dipstick Negative /ul (Negative); Nitrite-Dipstick Negative (Negative); Occult Blood-Urine Negative /ul (Negative); Protein-Dipstick Negative (Negative); Urine Bilirubin Dipstick Negative (Negative); Urine Clarity Sl. Cloudy (Clear); Urine Urobilinogen 1 mg/dl (Normal)
== END ==
LOC: OLS.WHLEAS 05:00
PROVIDERS: PCP Family Medicine; Visit Provider Internal Medicine
DX: N18.30 Chronic kidney disease, stage 3 unspecified (principal); E11.22 Type 2 diabetes mellitus with diabetic chronic kidney disease; E11.21 Type 2 diabetes mellitus with diabetic nephropathy; G20.A1 Parkinson's disease without dyskinesia, without mention of fluctuations; R39.9 Unspecified symptoms and signs involving the genitourinary system
CPT/HCPCS: 36415; 80053; 81002; 85025; 87077; 87086; 87088; 87186

== ENCOUNTER 2024-08-24 08:15 | Day surgery (SDC) | payer MEDICARE, MEDICAID, SELFPAY ==
[2024-08-24 08:47] VITALS: BP 146/60; PULSE 90; RESP 16; TEMP 36.9; O2SAT 98; BMI 22.1
[2024-08-24 09:17] LABS: Bedside Glucose 240 mg/dL (74-106)
--- NOTE | 2024-08-24 09:20 | RAD_ITS ---
PROCEDURE: FLUORO GUIDED NEEDLE PLACEMENT 08/24/2024 REASON FOR EXAM: RT KNEE INJECTION TECHNIQUE: Intraoperative fluoroscopic services provided for right knee injection. 5.1 seconds of fluoroscopy. 0.85 mGy. 4 images were taken. COMPARISON: None FINDINGS: Intraoperative fluoroscopic services for knee injection. RAD/Fluoro Guided Needle Placement IMPRESSION: Fluoroscopic services provided for right knee injection. Reading Location: [facility]
[2024-08-24] MEDS: MethylPREDNISolone Acetate 80 MG/ML Vial (09:24)
[2024-08-24] MEDS: Lidocaine 1% (5 ml sdv) 5 ML Vial (09:24)
[2024-08-24] MEDS: Bupivacaine 0.25% 30 ML Vial (09:24)
--- NOTE | 2024-08-24 09:32 | PCM.OPRPT ---
Operative Report (Standard) Operative Information Date of Procedure: 08/24/24 Pre-Operative Diagnosis: Osteoarthritis of the right knee, chronic postoperative knee pain Post-Operative Diagnosis: Osteoarthritis of the right knee, chronic postoperative knee pain Surgery/Procedure Performed: Right knee superior medial/superior lateral/inferior medial genicular nerves steroid injection under fluoroscopic guidance spring former: No Type of Anesthesia: Local RN Documented Start/Stop Times: Operation Date: 08/24/24 09:20 Case Time Into Pre-Op 08/24/24 08:32 Into Room 08/24/24 09:18 Procedure Start 08/24/24 09:24 Procedure End 08/24/24 09:28 Out of Room 08/24/24 09:30 Procedure Start Time: :33 Procedure Stop Time: :33 Select all DRAINS/GRAFTS/IMPLANTS that apply: None Estimated Blood Loss: 1 Specimen collected: No Description of surgery: DESCRIPTION OF PROCEDURE: History and physical of today was reviewed. Risks and benefits of the procedure were explained. The patient understood and agreed to proceed. Informed consent was obtained. IV inserted per routine protocol. The patient was taken to the operating room and placed in the supine position. The right knee was prepped and draped in a sterile fashion using iodine x3. Under fluoroscopy guidance on AP view, the right knee was visualized. The skin and subcutaneous tissue was anesthetized with approximately 5 mL of 1% lidocaine using a 25-gauge regular needle at the vicinity of the superomedial, superolateral, and inferomedial genicular nerves. Under direct visualization of fluoroscopy on AP view as well as lateral view, starting on the right superomedial, ending on the right inferomedial, passing through the right superolateral genicular nerves, the needle was passed through the skin. The tip of the needle was maneuvered and directed towards the diaphyseal junction of each corresponding nerve. Once tip of the needle was in the vicinity of the diaphysis and in contact with the bone, after confirmation on AP as well as lateral view and repeated negative aspiration for blood, a total of 12 mL of preservative-free 0.25% Marcaine with 80 mg of Depo-Medrol was injected in divided doses between those three levels. The needles were then removed intact. The patient experienced no sign or symptoms of intravascular injection. The patient experienced no paresthesia. The procedure was completed without any apparent difficulty or any complications. The patient appeared to tolerate it well. ASSESSMENT AND PLAN: This is an 84-year-old female with osteoarthritis of the right knee, chronic postoperative knee pain, status post right knee superior medial/superior lateral/inferior medial genicular nerves steroid injection under fluoroscopic guidance, patient will continue her current medications, patient will follow-up in approximately 2 weeks for reevaluation. Surgical Findings: 0 Complications Complications: No Admit VTE Documentation VTE Present on Admission: No VTE Mechan Device Prophylaxis: None VTE Pharm Prophylaxis ordered?: No
[2024-08-24 09:43] VITALS: BP 149/69; PULSE 72; RESP 16; TEMP 37.2; O2SAT 98
== END 2024-08-24 09:52 | disposition home or self-care (01) ==
LOC: SDC 08:16 → AC 08:16
PROVIDERS: PCP Internal Medicine; Referring Provider Anesthesiology Pain Medicine; Visit Provider Anesthesiology Pain Medicine
PROC: 3E0U3GC Introduction of Other Therapeutic Substance into Joints, Percutaneous Approach (ICD-10-PCS; CPT 20610; principal; 2024-08-24 09:15)
DX: M17.11 Unilateral primary osteoarthritis, right knee (principal); E11.43 Type 2 diabetes mellitus with diabetic autonomic (poly)neuropathy; M25.561 Pain in right knee; G89.18 Other acute postprocedural pain; K21.9 Gastro-esophageal reflux disease without esophagitis; K31.84 Gastroparesis; Z79.84 Long term (current) use of oral hypoglycemic drugs; Z79.85 Long-term (current) use of injectable non-insulin antidiabetic drugs; Z79.899 Other long term (current) drug therapy
CPT/HCPCS: 64454; 76000; 77002; 82962; A4216

== ENCOUNTER → 2024-08-25 | Outpatient (REF) | payer MEDICARE, MEDICAID, SELFPAY ==
[2024-08-25 08:31] LABS: Vitamin D,25 Hydroxy 38.4 ng/mL (30-100)
== END ==
LOC: OLS.WHLEAS 04:00
PROVIDERS: PCP Internal Medicine; Referring Provider Internal Medicine; Visit Provider Internal Medicine
DX: E55.9 Vitamin D deficiency, unspecified (principal)
CPT/HCPCS: 36415; 82306

== ENCOUNTER → 2024-09-08 | Outpatient (REF) | payer MEDICARE, MEDICAID, SELFPAY ==
[2024-09-08 09:18] LABS: Hemoglobin A1c 8.8 % (<=5.6)
== END ==
LOC: OLS.WHLEAS 05:00
PROVIDERS: PCP Internal Medicine; Visit Provider Internal Medicine
DX: E11.22 Type 2 diabetes mellitus with diabetic chronic kidney disease (principal); E11.21 Type 2 diabetes mellitus with diabetic nephropathy; N18.30 Chronic kidney disease, stage 3 unspecified; G20.A1 Parkinson's disease without dyskinesia, without mention of fluctuations
CPT/HCPCS: 36415; 83036

== ENCOUNTER → 2024-10-06 05:00 | Outpatient (REF) | payer MEDICARE, MEDICAID, SELFPAY ==
[2024-10-06 08:07] LABS: Hematocrit 37.1 % (37-47); Hemoglobin 11.9 g/dL (12.0-15.0); Mean Corp Hgb Conc 32.1 g/dL (32-36); Mean Corpuscular Hgb 29.8 pg (27.0-32.0); Mean Corpuscular Volume 92.8 fL (81-99); Mean Platelet Vol. 10.8 fl (6.2-12.0); Platelet Count 182 K/mm3 (150-450); RBC Distribution Width CV 12.8 % (11.6-14.6); RBC Distribution Width SD 43.8 fl (35.1-43.9); White Blood Count 7.1 K/mm3 (4.4-11.0)
[2024-10-06 08:29] LABS: Hemoglobin A1c 9.5 % (<=5.6)
[2024-10-06 08:50] LABS: AST(SGOT) 19 U/L (<=31); Alanine Aminotransfer ALT/SGPT 8 U/L (<=34); Albumin, Serum 3.7 g/dL (3.4-4.8); Alkaline Phosphatase 50 U/L (35-104); Anion Gap 10 (5-15); BUN 16 mg/dL (4-19); BUN/Creat Ratio 21.9 RATIO (10-20); Bilirubin, Direct 0.11 mg/dL (0.00-0.30); Calcium,Total 9.1 mg/dL (7.6-11.0); Carbon Dioxide 29.2 mmol/L (21.0-32.0); Chloride 99 mmol/L (98-108); Cholesterol 164 mg/dL (<=200); Creatinine, Serum 0.75 mg/dL (0.70-1.20); EST Glomerular Filtration Rate 79 (>60); Globulin 2.3 g/dL (2.2-4.2); Glucose 232 mg/dL (70-99); High Density Lipoprotein 59 mg/dL; Low Density Lipoprotein Calc. 92 mg/dL; Potassium 4.3 mmol/L (3.3-5.1); Sodium Level 138 mmol/L (133-145); Total Bilirubin 0.24 mg/dL (0.00-1.30); Triglycerides 68 mg/dL; Very Low Density Lipoprotein 14 mg/dL (5-40); Vitamin D,25 Hydroxy 31.3 ng/mL (30-100)
== END ==
LOC: OLS.WHLEAS 05:00
PROVIDERS: PCP Internal Medicine; Visit Provider Internal Medicine
DX: E11.22 Type 2 diabetes mellitus with diabetic chronic kidney disease (principal); N18.30 Chronic kidney disease, stage 3 unspecified; E11.21 Type 2 diabetes mellitus with diabetic nephropathy; G20.A1 Parkinson's disease without dyskinesia, without mention of fluctuations; E55.9 Vitamin D deficiency, unspecified
CPT/HCPCS: 36415; 80048; 80061; 80076; 82306; 83036; 85027

== ENCOUNTER 2024-10-18 16:45 | Inpatient (IN) | payer MEDICARE, MEDICAID, SELFPAY ==
[2024-10-18] VITALS (9 sets, daily range): BP systolic 156–202; BP diastolic 63–122; PULSE 71–91; RESP 13–18; TEMP 36.3–37; O2SAT 93–100; BMI 22.6; BMI 19.2
--- NOTE | 2024-10-18 17:01 | CT_ITS ---
PROCEDURE: BRAIN/HEAD WITHOUT CONTRAST 10/18/2024 REASON FOR EXAM: TRAUMA TECHNIQUE: BRAIN/HEAD WITHOUT CONTRAST Coronal and Sagittal reconstruction series were provided. One or more dose reduction techniques were used (e.g., Automated exposure control, adjustment of the mA and/or kV according to patient size, use of iterative reconstruction technique. RADIATION DOSE SUMMARY: DLP: 779 mGycm COMPARISON: 06/08/2023 FINDINGS: There is no acute infarct, intracranial hemorrhage, or mass effect. There is no hydrocephalus or significant midline shift. There is [id number] chronic microvascular ischemic changes and wqxg-bi-xriakcyv parenchymal volume loss. No acute, depressed calvarial fractures. Mild anterior frontal scalp swelling. Bilateral lens surgeries. CT/Brain/Head without Contrast IMPRESSION: No acute intracranial process. Mild anterior frontal scalp swelling. No acute calvarial defect. Reading Location: [id number]
--- NOTE | 2024-10-18 17:20 | ED.VIS.FALL ---
HPI HPI - Fall History of Present Illness Chief Complaint: Fall Informant: patient, EMS and SNF Narrative Narrative: 84-year-old female presenting to the emergency room with head trauma and altered mental status. Reportedly had an unwitnessed fall and was found on the ground. There was a forehead hematoma and possible laceration as well as skin tear on the left arm. She was noted to be confused. EMS was called. They noted confusion of blood sugar of 32 and diaphoresis. Upon arrival in the emergency department after EMS treatment the patient is more alert. She is talkative. She has facial confusion but has appropriate thinking on direct questioning. Patient is a DNR comfort care/palliative care. She does have a history of diabetes. She does not know if she ate today. Patient takes oral hypoglycemics as well as insulin. [facility] Medical History (Updated 10/18/24 @ 21:[address] Anali Coello, DO) Parkinson disease Pain in both knees Vision problems Skin cancer GERD (gastroesophageal reflux disease) Osteopenia Osteoarthritis Neuropathy Heart murmur Liver disease Recurrent infections Hives High cholesterol HTN (hypertension) Chronic headaches Gallstones Type 2 diabetes mellitus Cataracts, bilateral Bladder cancer Recurrent UTI Back problem Asthma Arthritis Anxiety and depression Home Medications ?Medication ?Instructions ?Recorded ?Last Taken ?Type acetaminophen 325 mg tablet 325 mg PO BID CHRONIC PAIN 09/20/17 08/24/24 History dapagliflozin propanediol 10 mg 10 mg PO DAILY 06/05/23 08/24/24 History tablet (Farxiga) furosemide 20 mg tablet 20 mg PO DAILY 06/05/23 08/24/24 History linaclotide 290 mcg capsule 290 mcg PO DAILY 06/05/23 08/24/24 History (Linzess) potassium chloride 20 mEq 40 meq PO DAILY 06/05/23 08/24/24 History tablet,extended release(part/cryst) glucagon 1 mg solution for 1 mg IM PRN 06/08/23 Unknown History injection (Glucagon Emergency Kit) insulin glargine 100 unit/mL (3 43 unit subcut DAILY 06/08/23 08/24/24 History mL) subcutaneous pen (Lantus Solostar U-100 Insulin) dulaglutide 4.5 mg/0.5 mL 4.5 mg subcut QWEEK 08/24/24 08/19/24 History subcutaneous [facility] oxycodone 5 mg tablet 5 mg PO BID pain 30 days #60 tabs 09/29/24 Unknown Rx acetaminophen 325 mg tablet 650 mg PO Q4H PRN fever or pain 10/18/24 Unknown History aluminum-mag hydroxide-simethicone 15 ml PO Q4H PRN indigestion 10/18/24 Unknown History 400 mg-400 mg-40 mg/5 mL oral susp (Advanced Antacid-[place]) cholecalciferol (vitamin D3) 50 50 mcg PO DAILY 10/18/24 Unknown History mcg (2,000 unit) tablet (D3 DOTS) dextran 70-hypromellose 0.1 %-0.3 1 drp EACH EYE BID 10/18/24 Unknown History % eye drops (GenTeal Tears Mild) metformin 1,000 mg tablet 1,000 mg PO BID 10/18/24 Unknown History ondansetron 4 mg disintegrating 4 mg PO Q6H PRN nausea and vomiting 10/18/24 Unknown History tablet polyethylene glycol 3350 17 17 g PO QODAY 10/18/24 Unknown History gram/dose oral powder (ClearLax) Allergy/AdvReac Type Severity Reaction Status Date / Time sulfamethoxazole (From Allergy Rash Verified 08/24/24 08:34 Bactrim) trimethoprim (From Bactrim) Allergy Rash Verified 08/24/24 08:34 carbidopa (From Sinemet) AdvReac Nausea Verified 08/24/24 08:34 hydrocodone bitartrate (From AdvReac Nausea Verified 08/24/24 08:34 Vicodin) ketoprofen (From Orudis) AdvReac Unknown Verified 08/24/24 08:34 levodopa (From Sinemet) AdvReac Nausea Verified 08/24/24 08:34 lorazepam (From Ativan) AdvReac hallucinati Verified 08/24/24 08:34 on metformin HCl (From AdvReac Nausea Verified 08/24/24 08:34 Glucophage) naloxone AdvReac Nausea Verified 08/24/24 08:34 NSAIDS (Non-Steroidal AdvReac PT UNSURE Verified 08/24/24 08:34 Anti-Inflamma OF REACTION oxaprozin (From Daypro) AdvReac Nausea Verified 08/24/24 08:34 oxycodone HCl (From Percocet) AdvReac Nausea Verified 08/24/24 08:34 propoxyphene HCl (From AdvReac Nausea Verified 08/24/24 08:34 Darvon) rofecoxib (From Vioxx) AdvReac Nausea Verified 08/24/24 08:34 rosiglitazone maleate (From AdvReac Nausea Verified 08/24/24 08:34 Avandia) sertraline HCl (From Zoloft) AdvReac haullucinat Verified 08/24/24 08:34 ion simvastatin (From Zocor) AdvReac Nausea Verified 08/24/24 08:34 venlafaxine HCl (From AdvReac Nausea Verified 08/24/24 08:34 Effexor) Family History Unknown Asthma Arthritis Cancer Diabetes Heart disease Hypertension High cholesterol Kidney stones Liver disease Osteoporosis Skin cancer CVA (cerebral vascular accident) Surgical History (Updated 10/18/24 @ 21:[address] Anali Coello DO) Total knee replacement status Social History Smoking Status: Never smoker second hand exposure: No alcohol intake: never substance use type: does not use ROS ROS ED Constitutional Constitutional ED: Denies chills, fever(s) or weight loss Eyes Eyes: Denies change in vision or diplopia ENT ENT ED: Denies ear pain, rhinorrhea or sore throat Cardiovascular Cardiovascular: Denies chest pain, orthopnea, palpitations or racing heartbeat Respiratory/Chest Respiratory/Chest: Denies cough, dyspnea or orthopnea Gastrointestinal Gastrointestinal: Denies abdominal pain, diarrhea, nausea or vomiting Genitourinary Genitourinary ED: Denies dysuria, hematuria or urinary frequency Musculoskeletal Musculoskeletal: Denies arthralgias or myalgias Integumentary Reports other Details: Forehead hematoma/abrasion/left forearm skin tear ; Denies abscess or rash Neurologic Neurologic: Reports headache(s); Denies weakness Psychiatric Psychiatric: Denies anxiety, depression, suicidal ideation or suicidal thoughts Endocrine Endocrinology: Denies polydipsia, polyphagia or polyuria Allergic/Immunologic Allergic/Immunologic ED: Denies mouth swelling, tongue swelling or urticaria EXAM Physical Exam Const Vital Signs: 10/18/24 16:46 10/18/24 16:51 10/18/24 16:54 Temperature 97.9 F Temperature Source Temporal Pulse Rate 91 Respiratory Rate 13 Respiratory Effort Normal Non-Labored Normal Non-Labored Respiratory Depth Normal Respiratory Pattern Normal Normal Blood Pressure 162/92 H Blood Pressure Mean 115 Pulse Ox 100 Oxygen Delivery Method Room Air Room Air 10/18/24 17:46 10/18/24 18:00 10/18/24 19:00 Temperature Temperature Source Pulse Rate 71 74 71 Respiratory Rate 14 16 18 Respiratory Effort Respiratory Depth Respiratory Pattern Blood Pressure 202/122 H 172/72 H 164/76 H Blood Pressure Mean 148 105 105 Pulse Ox 97 99 98 Oxygen Delivery Method Room Air 10/18/24 20:00 10/18/24 20:50 10/18/24 20:51 Temperature 97.4 F L 97.6 F L Temperature Source Temporal Pulse Rate 80 80 Respiratory Rate 16 18 16 Respiratory Effort Respiratory Depth Respiratory Pattern Blood Pressure 156/63 H 174/81 H 174/81 H Blood Pressure Mean 94 112 112 Pulse Ox 97 93 93 Oxygen Delivery Method Room Air Positive well nourished and well developed General Appearance ED: well developed HEENT Reports normocephalic and moist mucous membranes HEENT Narrative: There is a mid forehead hematoma just at the hairline. There is an associated abrasion no complete laceration. There is no active bleeding. The area around the hematoma is concussed. Eyes PERRL and EOMs intact bilaterally Neck full ROM, no lymphadenopathy, supple and no JVD General: Negative for tenderness Resp normal respiratory effort and clear to auscultation bilaterally Cardio regular rate, regular rhythm and no murmurs GI normal to inspection, nondistended, normoactive bowel sounds and non-tender Palpation: soft Back/Spine no CVA tenderness and normal ROM Extremity normal to inspection General Extremety ED: Negative for edema General Extremity: Negative for edema Neuro moves all extremities, no focal motor deficits and no sensory deficits noted [place] Coma Scale: document GCS findings Spontaneous Obeys Commands Oriented 15 Sensorium / Orientation: alert, oriented to person and oriented to place; Negative for oriented to time Motor Exam: strength 5/5 throughout Psych mental status grossly normal Mood & Affect: Negative for depressed or tearful Skin no rashes or lesions noted Skin Narrative: There is a 3 cm skin tear to the dorsal left forearm. MDM MDM MDM Narrative Medical decision making narrative: Differential diagnosis includes but not limited to diabetic hypoglycemia intracranial hemorrhage concussion skull fracture laceration abrasion skin tear The forehead hematoma and abrasion was washed with Shur-Clens and explored. I placed Dermabond on the wound to keep the tissue in place and do not feel that any sutures. The skin tear of the left forearm had the skin smoothed out and washed. Was closed using Dermabond as well. CT of the brain was obtained. Patient was able to take some drinks and we ordered food. Patient really unwilling to eat or drink to keep her blood sugar up. After EMSs glucose in the apartment was at 82 and the next reading was 72 and she was not eating therefore she was started on D10 half-normal saline. Blood sugars have been rising. Basic blood work showed a white count of 20 hemoglobin of 15.5 count of 326. BMP with a glucose of 16 (these are labs drawn by EMS) normal LFTs except for an AST of 34 creatinine 0.64. I believe that the white count is most likely reactive due to the hypoglycemia. We were able to finally obtain a urine specimen which demonstrates 10-25 white blood cells positive nitrates 4+ bacteria. This was sent for culture and she received a dose of Rocephin. Lactic acid was elevated 2.8. I do not believe that she needs volume resuscitated. She is also on metformin I think the elevated lactic acid is multifactorial and not really due to overwhelming sepsis. Spoke with her hospitalist and her plan is admission into the hospital. History & Record Review Discussion w/independent historian: EMS personnel, Patient and Other (SNF) Additional record(s) reviewed:: Prior inpatient record, Prior ED visit and Prior labs Lab Data Attestation: I reviewed the patient's lab results. Labs: Laboratory Results - last 24 hr 10/18/24 10/18/24 10/18/24 16:30 17:05 17:39 WBC 20.0 H RBC 5.28 Hgb 15.5 H Hct 48.0 H MCV 90.9 MCH 29.4 MCHC 32.3 RDW Std Deviation 43.0 RDW Coeff of [place] 12.9 Plt Count 326 MPV 10.2 Immature Gran % (Auto) 0.700 Neut % (Auto) 89.4 H Lymph % (Auto) 4.7 L [place] % (Auto) 4.8 Eos % (Auto) 0.1 Baso % (Auto) 0.3 Absolute Neuts (auto) 17.9 H Absolute Lymphs (auto) 0.94 Nucleated RBC % 0 PT INR Sodium 143 Potassium 3.2 L Chloride 102 Carbon Dioxide 24.5 Anion Gap 17 H BUN 11 Creatinine 0.64 L Estim Creat Clear Calc 42.88 L Est GFR (MDRD) Non-Af 88 BUN/Creatinine Ratio 17.1 Glucose 16 L* Lactic Acid Calcium 10.0 Total Bilirubin 0.33 AST 34 H ALT 13 Alkaline Phosphatase 60 Total Protein 8.0 Albumin 4.7 Globulin 3.3 Albumin/Globulin Ratio 1.4 Urine Color Urine Clarity Urine pH Ur Specific [place] Urine Protein Urine Glucose (UA) Urine Ketones Urine Occult Blood Urine Nitrite Urine Bilirubin Urine Urobilinogen Ur Leukocyte Esterase Urine RBC Urine WBC Ur Squamous Epith Cells Urine Bacteria Urine Mucus POC Glucose 82 72 L 10/18/24 10/18/24 10/18/24 18:57 19:41 20:07 WBC RBC Hgb Hct MCV MCH MCHC RDW Std Deviation RDW Coeff of [place] Plt Count MPV Immature Gran % (Auto) Neut % (Auto) Lymph % (Auto) Worth % (Auto) Eos % (Auto) Baso % (Auto) Absolute Neuts (auto) Absolute Lymphs (auto) Nucleated RBC % PT INR Sodium Potassium Chloride Carbon Dioxide Anion Gap BUN Creatinine Estim Creat Clear Calc Est GFR (MDRD) Non-Af BUN/Creatinine Ratio Glucose Lactic Acid Calcium Total Bilirubin AST ALT Alkaline Phosphatase Total Protein Albumin Globulin Albumin/Globulin Ratio Urine Color Yellow Urine Clarity Clear Urine pH 6.5 Ur Specific [place] 1.015 Urine Protein 30 H Urine Glucose (UA) 1000 H Urine Ketones Negative Urine Occult Blood 25 H Urine Nitrite Positive H Urine Bilirubin Negative Urine Urobilinogen Normal Ur Leukocyte Esterase 25 H Urine RBC 0 SEEN Urine WBC 10-25 SEEN Ur Squamous Epith Cells 0-5 SEEN Urine Bacteria 4+ Urine Mucus 0 SEEN POC Glucose 98 119 H 10/18/24 10/18/24 20:34 21:26 WBC RBC Hgb Hct MCV MCH MCHC RDW Std Deviation RDW Coeff of [place] Plt Count MPV Immature Gran % (Auto) Neut % (Auto) Lymph % (Auto) Worth % (Auto) Eos % (Auto) Baso % (Auto) Absolute Neuts (auto) Absolute Lymphs (auto) Nucleated RBC % PT 13.4 INR 1.0 Sodium Potassium Chloride Carbon Dioxide Anion Gap BUN Creatinine Estim Creat Clear Calc Est GFR (MDRD) Non-Af BUN/Creatinine Ratio Glucose Lactic Acid 2.8 H* Calcium Total Bilirubin AST ALT Alkaline Phosphatase Total Protein Albumin Globulin Albumin/Globulin Ratio Urine Color Urine Clarity Urine pH Ur Specific [place] Urine Protein Urine Glucose (UA) Urine Ketones Urine Occult Blood Urine Nitrite Urine Bilirubin Urine Urobilinogen Ur Leukocyte Esterase Urine RBC Urine WBC Ur Squamous Epith Cells Urine Bacteria Urine Mucus POC Glucose 129 H Radiography Diagnostic Testing: Clinical Impression(s) from Imaging Studies Brain CT 10/18/24 17:01 IMPRESSION: No acute intracranial process. Mild anterior frontal scalp swelling. No acute calvarial defect. Reading Location: [facility] Management Discussion w/another healthcare provider: Hospitalist (Dr. Coello) Discharge Plan Dx/Rx/DC Orders Clinical Impression: Traumatic hematoma of forehead, Abrasion of forehead, Fall, Diabetic hypoglycemia, Skin tear of forearm without complication, Acute UTI Disposition Disposition: Acute Care Hospital [facility] Discharge Date/Time: 10/18/24 22:04
[2024-10-18 17:24] LABS: Bedside Glucose 82 mg/dL (74-106)
--- OUTSIDE RECORDS SUMMARY | 2024-10-18 17:40 | XMS RPT_ITS | CCD ---
Author Organization [facility] Care Team Providers Care Process Description Writer Name Role Phone Trent HILARIO, Rachael Sarabia Unavailable Dr. Basilio Flores Primary Care Provider Tickangelic DIRECTOR GOVERNMENT, DIRECTOR GOVERNMENT-C Debora Attending Provider Dr. Basilio Anderson Primary Care Provider Dr. Basilio Flores Primary Care Provider Tickton DIRECTOR GOVERNMENT, DIRECTOR GOVERNMENT-C Debora Attending Provider Dr. Basilio Anderson Primary Care Provider Tickton DIRECTOR GOVERNMENT, DIRECTOR GOVERNMENT-C Debora Attending Provider Dr. Basilio Anderson Primary Care Provider Dr. Donato Sepulveda Attending Provider Tickton DIRECTOR GOVERNMENT, DIRECTOR GOVERNMENT-C Debora Attending Provider Dr. Basilio Anderson Primary Care Provider Dr. Donato Sepulveda Attending Provider Tickton DIRECTOR GOVERNMENT, DIRECTOR GOVERNMENT-C Debora Attending Provider Dr. Basilio Anderson Primary Care Provider Tickton DIRECTOR GOVERNMENT, DIRECTOR GOVERNMENT-C Debora Attending Provider Dr. Donato Centeno Attending Provider [phone] Dr. Basilio Flores Primary Care Provider Tickton DIRECTOR GOVERNMENT, DIRECTOR GOVERNMENT-C Debora Attending Provider Dr. Donato Centeno Attending Provider Dr. Basilio Flores Primary Care Provider Tickton DIRECTOR GOVERNMENT, DIRECTOR GOVERNMENT-C Debora Attending Provider Dr. Basilio Anderson Primary Care Provider Tickton DIRECTOR GOVERNMENT, DIRECTOR GOVERNMENT-C Debora Attending Provider Dr. Donato Sepulveda Attending Provider Dr. Basilio Flores Primary Care Provider Tickton DIRECTOR GOVERNMENT, DIRECTOR GOVERNMENT-C Debora Attending Provider Dr. Donato Sepulveda Attending Provider Dr. Basilio Flores MD Primary Care Provider Donato Sepulveda MD Attending Provider UnavailDr. Donato Guevara MD Attending Provider Wyatt DIRECTOR GOVERNMENT-C, Debora Attending Provider Donato Sepulveda MD Referring Provider Unavailyifan Flores MD, Dr. Basilio Mckenna Primary Care Provider Donato Sepulveda MD Attending Provider UnavailDr. Armando Elizabeth MD Attending Provider Dr. Armando Rich MD Referring Provider Derick HILARIO, Dr. Sewell Primary Care Provider Wyatt DIRECTOR GOVERNMENT-C, Debora Other Provider Dr. Basilio Flores MD Primary Care Provider Donato Sepulveda MD Attending Provider Unavaila keli Schneider DIRECTOR GOVERNMENT-C, Debora Attending Provider Dr. Donato Sepulveda MD Attending Provider Dr. Donato Sepulveda MD Primary Care Provider Basilio Flores Primary Care Unavailable Tickton DIRECTOR GOVERNMENT, Debora Attending Unavailable Basilio Flores Primary Care Unavailable Donato Sepulveda Attending Unavailable Tickton DIRECTOR GOVERNMENT, Debora Attending Unavailable Baislio Flores Primary Care Unavailable Donato Moss Attending UnavailBasilio Solo Primary Care Unavailable Oleghe OLS, Efewongbe Attending Unavailabl e Flores, Basilio K Primary Care Unavailable Oleghe OLS, Efewongbe Referring Unavailabl e Oleghe OLS, Efewongbe Attending Unavailabl e Oleghe, Efewongbe Primary Care Unavailable Oleghe OLS, Efewongbe Attending Unavailabl e Oleghe, Efewongbe Primary Care Unavailable Flores, Basilio K Primary Care Unavailable Tickton DIRECTOR GOVERNMENT, Debora Attending Unavailable Flores, Basilio K Primary Care Unavailable Oleghe, Efewongbe Attending Unavailable Oleghe OLS, Efewongbe Attending Unavailabl e Flores, Basilio K Primary Care Unavailable Oleghe OLS, Efewongbe Attending Unavailabl e Flores, Basilio K Primary Care Unavailable Oleghe OLS, Efewongbe Attending Unavailabl e Flores, Basilio K Primary Care Unavailable Oleghe OLS, Efewongbe Attending Unavailabl e Oleghe, Efewongbe Primary Care Unavailable Oleghe OLS, Efewongbe Attending Unavailabl e Flores, Basilio K Primary Care Unavailable Oleghe, Efewongbe Primary Care Unavailable Tickton DIRECTOR GOVERNMENT, Debora Consulting Unavailable Armando Rich Referring Unavailable Armando Rich Attending Unavailable Oleghe OLS, Efewongbe Attending Unavailabl e Flores, Basilio K Primary Care Unavailable Flores, Basilio K Primary Care Unavailable Oleghe OLS, Efewongbe Attending Unavailabl e Flores, Basilio K Primary Care Unavailable Tickton DIRECTOR GOVERNMENT, Debora Attending Unavailable Flores, Basilio K Primary Care Unavailable Oleghe, Efewongbe Attending Unavailable Flores, Basilio K Primary Care Unavailable Oleghe OLS, Efewongbe Attending Unavailabl e Flores, Basilio K Primary Care Unavailable Oleghe OLS, Efewongbe Referring Unavailabl e Oleghe OLS, Efewongbe Attending Unavailabl e Oleghe OLS, Efewongbe Attending Unavailabl e Flores, Basilio K Primary Care Unavailable Flores, Basilio K Primary Care Unavailable Oleghe, Efewongbe Attending Unavailable Tickton DIRECTOR GOVERNMENT, Debora Attending Unavailable Oleghe, Efewongbe Primary Care Unavailable Tickton DIRECTOR GOVERNMENT, Debora Attending Unavailable Flores, Basilio K Primary Care Unavailable Tickton DIRECTOR GOVERNMENT, Debora Attending Unavailable Flores, Basilio K Primary Care Unavailable Flores, Basilio K Primary Care Unavailable Oleghe, Efewongbe Attending Unavailable Tickton DIRECTOR GOVERNMENT, Debora Attending Unavailable Flores, Basilio K Primary Care Unavailable Mark HILARIO, Dr. Basilio Mckenna Primary Care Provider Donato Sepulveda MD Attending Provider Unavaila ble Allergies Allergy Classification Reported Allergen(s) Allergy Type Date of Onset Reaction(s) Facility (1 source) Acetaminophen / HYDROcodone Drug Allergy unknown [facility] Work Phone: (1 source) Acetaminophen / oxyCODONE Drug Allergy unknown [facility] Work Phone: (1 source) Acetaminophen / Propoxyphene Drug Allergy unknown [facility] Work Phone: (1 source) Baclofen Drug Allergy unknown [facility] Work Phone: (1 source) Carbidopa / Levodopa Drug Allergy unknown [facility] Work Phone: (1 source) Ibuprofen Drug Allergy kidney disease [facility] Work Phone: (1 source) Ketoprofen Drug Allergy unknown [facility] Work Phone: (1 source) LORazepam Drug Allergy unknown [facility] Work Phone: (1 source) metFORMIN Drug Allergy unknown [facility] Work Phone: (20 sources) Naloxone; Translations: [naloxone] Drug Allergy 018 unknown, Nausea [facility] Work Phone: (1 source) oxaprozin Drug Allergy unknown [facility] Work Phone: (1 source) rofecoxib Drug Allergy unknown [facility] Work Phone: (1 source) rosiglitazone Drug Allergy siblings had severe reactions [facility] Work Phone: (1 source) Sertraline Drug Allergy unknown [facility] Work Phone: (1 source) Simvastatin Drug Allergy unknown [facility] Work Phone: (1 source) Sulfamethoxazole / Trimethoprim Drug Allergy unknown [facility] Work Phone: (1 source) venlafaxine; Translations: [EFFEXOR] Drug Allergy unknown [facility] Work Phone: (20 sources) Carbidopa Drug Allergy 018 Nausea [facility] (20 sources) HYDROcodone; Translations: [hydrocodone bitartrate] Drug Allergy Nausea [facility] (20 sources) Ketoprofen Drug Allergy 018 Unknown [facility] (20 sources) Levodopa Drug Allergy 018 Nausea [facility] (20 sources) LORazepam Drug Allergy 018 hallucination [facility] (20 sources) metFORMIN; Translations: [metformin HCl] Drug Allergy 018 Nausea [facility] (20 sources) oxaprozin Drug Allergy Nausea [facility] (20 sources) oxyCODONE; Translations: [oxycodone HCl] Drug Allergy 018 Nausea [facility] (20 sources) Propoxyphene; Translations: [propoxyphene HCl] Drug Allergy 018 Nausea [facility] (20 sources) rofecoxib Drug Allergy 018 Nausea [facility] (20 sources) rosiglitazone; Translations: [rosiglitazone maleate] Drug Allergy Nausea [facility] (20 sources) Sertraline; Translations: [sertraline HCl] Drug Allergy 018 haullucination [facility] (20 sources) Simvastatin Drug Allergy 018 Nausea [facility] (20 sources) Sulfamethoxazole Drug Allergy Rash [facility] (20 sources) Trimethoprim Drug Allergy Rash [facility] (20 sources) venlafaxine; Translations: [venlafaxine HCl] Drug Allergy Nausea [facility] (20 sources) NSAIDS (Non-Steroidal Anti-Inflamma; Translations: [NSAIDS (Non-Steroidal Anti-Inflamma] Propensity to adverse reactions PT UNSURE OF REACTION [facility] (1 source) Carbidopa Drug Allergy [facility] (1 source) Ketoprofen Drug Allergy [facility] (1 source) Levodopa Drug Allergy [facility] (1 source) LORazepam Drug Allergy [facility] (1 source) oxaprozin Drug Allergy [facility] (1 source) rofecoxib Drug Allergy [facility] (1 source) Simvastatin Drug Allergy [facility] (1 source) Sulfamethoxazole Drug Allergy [facility] (1 source) Trimethoprim Drug Allergy [facility] Medications Current Medications Medication Drug Class(es) Dates Sig (Normalized) Sig (Original) dapagliflozin 10 mg oral tablet (8 sources) Sodium-Glucose Cotransporter 2 Inhibitor Start: 06-05-2023 take 1 tablet by mouth once daily Dapagliflozin Propanediol (Dapagliflozin Propanediol 10 Mg Tablet) 10 mg tablet Active 10 mg PO DAILY June 05, 2023 1:00am Start: 06-05-2023 Dapagliflozin Propanediol (Dapagliflozin Propanediol 10 Mg Tablet) 10 mg tablet Active MG June 05, 2023 12:00am Dulaglutide (20 sources) GLP-1 Receptor Agonist Start: 08-24-2024 Dulaglu tide (Trulicity) 4.5 mg/0.5 mL pen injector Active 4.5 mg SC EVERY WEEK August 24, 2024 12:00am Start: 12-16-2019 End: 06-08-2023 Dulaglutide 0.75 MG/0.5 ML p en injector Discontinued 0.75 mg SQ December 16, 2019 12:00am June 08, 2023 9:23am DULoxetine 30 mg delayed release oral capsule (3 sources) Serotonin and Norepinephrine Reuptake Inhibitor Start: 08-24-2024 take 1 capsule by mouth once daily Duloxetine 30 mg capsule,delayed release(DR/EC) Active 30 mg PO DAILY August 24, 2024 12:00am furosemide 20 mg oral tablet (9 sources) Loop Diuretic Start: 06-05-2023 take 1 tablet by mouth once daily Furosemide 20 mg tablet Active 20 mg PO DAILY June 05, 2023 1:00am Start: 06-05-2023 Furosemide Act alonso MG June 05, 2023 12:00am Start: 03-16-2019 FUROSEMIDE TAB S takes 20mg at night and 40mg twice daily FUROSEMIDE TABS [id number] Rachael Newman MD glucagon (rdna) 1 mg injection (7 sources) Antihypoglycemic Agent Start: 06-08-2023 Glucago n (Glucagon 1 Mg Solution For Injection) 1 mg recon soln Active 1 mg IM NEEDED June 08, 2023 1:00am 3 ml insulin glargine 100 unt/ml pen injector (20 sources) Insulin Analog Start: 06-08-2023 Insulin Glargi ne (Lantus Solostar U-100 Insulin) 100 unit/mL (3 mL) insulin pen Active 35 U SC DAILY June 08, 2023 1:00am 0600 Start: 06-08-2023 Insulin Glargi ne (Insulin Glargine 100 Unit/Ml (3 Ml) Subcutaneous Pen) 100 unit/mL (3 mL) insulin pen Active 20 U SC DAILY June 08, 2023 1:00am NOON Start: 12-16-2019 Insulin Glargi ne Active 42 UNIT SC EVERY EVENING December 16, 2019 12:00am Start: 12-16-2019 Insulin Glargi ne Active 42 UNIT SC EVERY EVENING December 15, 2019 11:00pm Start: 12-16-2019 inject 42 [IU] by osborn bcutaneous injection twice daily Insulin Glargine Active 42 UNIT SQ TWICE A DAY December 15, 2019 11:00pm Start: 12-16-2019 inject 40 [IU] by osborn bcutaneous injection twice daily Insulin Glargine Active 40 UNIT SQ TWICE A DAY December 15, 2019 11:00pm Start: 03-16-2019 LANTUS 100 UNI T/ML SOLN takes 46 units twice daily INSULIN GLARGINE [id number] Rachael Newman MD Start: 04-06-2015 End: 09-26-2017 Insulin Glargine 100 UNIT/ML solution Discontinued 76 U SC AT BEDTIME April 06, 2015 1:00am September 26, 2017 3:18pm lidocaine 0.05 mg/mg medicated patch (7 sources) Antiarrhythmic, Amide Local Anesthetic Start: 06-08-2023 Lidocaine (Dermacinrx Lidocan) 5 % adhesive patch,medicated Active 1 NMA TOPICAL DAILY June 08, 2023 1:00am leave on most painful area for up to 12 hrs linaclotide 0.29 mg oral capsule (8 sources) Guanylate Cyclase-C Agonist Start: 06-05-2023 take 1 capsule by mouth once daily Linaclotide (Linaclotide 290 Mcg Capsule) 290 mcg capsule Active 290 ug PO DAILY June 05, 2023 1:00am 24 hr metFORMIN hydrochloride 750 mg extended release oral tablet (8 sources) Biguanide Start: 06-05-2023 Metformin 750 mg tablet extended release 24 hr Active 1000 mg PO TWICE A DAY June 05, 2023 1:00am Start: 06-05-2023 take 1 tablet by rufina th twice daily Metformin 750 mg tablet extended release 24 hr Active 750 mg PO TWICE A DAY June 05, 2023 1:00am Start: 06-05-2023 Metformin Acti ve MG PO June 05, 2023 12:00am polyethylene glycol 3350 11058 mg powder for oral solution (7 sources) Osmotic Laxative Start: 06-08-2023 Polyethylene Glycol 3350 (Clearlax) 17 gram/dose powder Active 17 g PO DAILY as needed for constipation June 08, 2023 1:00am Polyethylene Glycol 400 (Dry Eye Relief (Peg 400)) 1 % drops (7 sources) Start: 06-08-2023 take 1 drop(s) into the eye(s) every six hours as needed Polyethylene Glycol 400 (Dry Eye Relief (Peg 400)) 1 % drops Active 1 NMA EACH EYE EVERY 6 HOURS as needed for dry eye(s) June 08, 2023 1:00am Start: 06-08-2023 take 1 drop(s) into the eye(s) every six hours Polyethylene Glycol 400 (Dry Eye Relief (Peg 400)) 1 % drops Active 1 DRP EACH EYE EVERY 6 HOURS June 08, 2023 1:00am Start: 06-08-2023 take 1 drop(s) into the eye(s) every six hours Polyethylene Glycol 400 (Dry Eye Relief (Peg 400)) 1 % drops Active 1 DRP EACH EYE EVERY 6 HOURS June 08, 2023 12:00am microencapsulated potassium chloride 20 meq extended release oral tablet (8 sources) Start: 06-05-2023 take 2 tablets by mouth once daily Potassium Chloride 20 mEq tablet,ER particles/crystals Active 40 meq PO DAILY June 05, 2023 1:00am Start: 06-05-2023 take 40 mEq by mouth once curyl y Potassium Chloride Active 40 MEQ PO DAILY June 05, 2023 1:00am promethazine hydrochloride 12.5 mg oral tablet (7 sources) Phenothiazine Start: 06-08-2023 take 1 tablet by mouth every six hours as needed for nausea and vomiting Promethazine 12.5 mg tablet Active 12.5 mg PO EVERY 6 HOURS as needed for nausea and vomiting June 08, 2023 1:00am Completed/Discontinued Medications Medication Drug Class(es) Dates Sig (Normalized) Sig (Original) acetaminophen 325 mg oral capsule (20 sources) Start: 03-16-2019 TYLENOL 325 MG CAPS takes two tabs every 4 hours as needed ACETAMINOPHEN [id number] Rachael Newman MD Start: 09-20-2017 take 650 mg by mouth every six hours Acetaminophen Active 650 MG PO EVERY 6 HOURS September 20, 2017 2:44pm Start: 09-20-2017 take 650 mg by mouth three times daily Acetaminophen Active 650 MG PO THREE TIMES A DAY September 20, 2017 1:44pm Start: 04-30-2015 End: 09-20-2017 take 2 tablets by mouth every six hours as needed for pain Acetaminophen (Tylenol) 325 MG tablet Discontinued 650 mg PO EVERY 6 HOURS NEEDED as needed for Pain July 14, 2015 1:00am September 20, 2017 2:45pm amoxicillin 500 mg oral capsule (1 source) Penicillin-class Antibacterial Start: 03-16-2019 AMOXICILLIN 500 MG CAPS takes as directed prior to dental procedures AMOXICILLIN [id number] Rachael Newman MD aspirin 325 mg oral tablet (20 sources) Platelet Aggregation Inhibitor, Nonsteroidal Anti-inflammatory Drug Start: 04-30-2015 End: 07-14-2015 take 1 tablet by mouth twice daily at mealtime Aspirin 325 MG tablet Discontinued 325 mg PO TWICE DAILY WITH MEALS April 30, 2015 1:00am July 14, 2015 4:24pm atorvastatin 10 mg oral tablet (20 sources) HMG-CoA Reductase Inhibitor Start: 12-16-2019 End: 06-08-2023 take 1 tablet by mouth at bedtime Atorvastatin 10 MG tablet Discontinued 10 mg PO AT BEDTIME December 16, 2019 12:00am June 08, 2023 9:23am Start: 03-16-2019 LIPITOR 40 MG TABS takes one tab once daily ATORVASTATIN CALCIUM [id number] Rachael Newman MD bacillus coagulans [id number] unt / inulin 250 mg oral capsule (20 sources) Start: 12-16-2019 End: 06-08-2023 take 1 capsule by mouth once daily Bacillus Coagulans-Inulin 1 EACH capsule Discontinued 1 NMA PO DAILY December 16, 2019 12:00am June 08, 2023 9:23am Start: 12-16-2019 End: 06-08-2023 take 1 capsule by mouth once daily Bacillus Coagulans-Inulin Discontinued 1 CAP PO DAILY December 16, 2019 12:00am June 08, 2023 9:23am bumetanide 2 mg oral tablet (20 sources) Loop Diuretic Start: 12-18-2019 End: 06-08-2023 take 1 tablet by mouth once daily Bumetanide 2 MG tablet Discontinued 2 mg PO DAILY December 18, 2019 8:36am June 08, 2023 9:23am Start: 12-16-2019 End: 12-18-2019 take 1 tablet by mouth twice daily Bumetanide 2 MG tablet Discontinued 2 mg PO TWICE A DAY December 16, 2019 12:00am December 18, 2019 8:36am calcitriol 0.0005 mg oral capsule (20 sources) Vitamin D3 Analog Start: 12-16-2019 End: 06-08-2023 take 1 capsule by mouth once daily Calcitriol 0.5 MCG capsule Discontinued 0.5 ug PO DAILY December 16, 2019 12:00am June 08, 2023 9:23am cefTRIAXone 2000 mg injection (20 sources) Cephalosporin Antibacterial Start: 04-27-2015 End: 07-14-2015 Ceftriaxone In Dextrose,Iso-Os 2 GM/50 ML Bag Discontinued 2 g IV EVERY 24 HOURS April 27, 2015 1:00am July 14, 2015 4:24pm diphenhydrAMINE hydrochloride 25 mg oral tablet (2 sources) Histamine-1 Receptor Antagonist Start: 03-16-2019 BANOPHEN 25 MG TABS takes one tab daily DIPHENHYDRAMINE HCL [id number] Rachael Newman MD Start: 03-16-2019 BENADRYL ALLER GY 25 MG CAPS takes one tab once daily DIPHENHYDRAMINE HCL [id number] Rachael Newman MD doxepin hydrochloride 10 mg oral capsule (1 source) Tricyclic Antidepressant Start: 03-16-2019 DOXEPIN HCL 10 MG CAPS takes two tabs daily DOXEPIN HCL [id number] Rachael Newman MD famotidine 20 mg oral tablet (20 sources) Histamine-2 Receptor Antagonist Start: 12-16-2019 End: 06-08-2023 take 1 tablet by mouth at bedtime Famotidine 20 MG tablet Discontinued 20 mg PO AT BEDTIME December 16, 2019 12:00am June 08, 2023 9:23am gabapentin 100 mg oral capsule (20 sources) Anti-epileptic Agent Start: 12-16-2019 End: 06-08-2023 take 2 capsules by mouth at bedtime Gabapentin 100 MG capsule Discontinued 200 mg PO AT BEDTIME December 16, 2019 12:00am June 08, 2023 9:23am Start: 12-16-2019 End: 06-08-2023 take 200 mg by mouth at bedtime Gabapentin Discontinue d 200 MG PO AT BEDTIME December 16, 2019 12:00am June 08, 2023 9:23am Start: 03-16-2019 GABAPENTIN 300 MG CAPS takes one tab once daily GABAPENTIN [id number] Rachael Newman MD Insulin Glargine 100 UNIT/ML solution (5 sources) Start: 12-16-2019 End: 08-24-2024 Insulin Glargine 100 UNIT/ML solution Discontinued 42 U SC EVERY EVENING December 16, 2019 12:00am August 24, 2024 8:45am Start: 12-16-2019 Insulin Glargi ne 100 UNIT/ML solution Active 42 U SC EVERY EVENING December 16, 2019 12:00am 3 ml insulin aspart, human 100 unt/ml pen injector (20 sources) Insulin Analog Start: 12-16-2019 End: 06-08-2023 inject 12 [IU] by subcutaneous injection once daily Insulin Aspart U-100 100 UNIT/ML solution Discontinued 12 U SQ DAILY@1200 December 16, 2019 12:00am June 08, 2023 9:23am Start: 12-16-2019 End: 06-08-2023 inject 10 [IU] by subcutaneous injection once daily Insulin Aspart U-100 100 UNITS/ML insulin pen Discontinued 10 U subcut DAILY@0900 December 16, 2019 12:00am June 08, 2023 9:23am Start: 12-16-2019 End: 06-08-2023 Insulin Aspart U-100 100 UNI TS/ML insulin pen Discontinued 0 U subcut 3 TIMES DAILY WITH MEALS December 16, 2019 12:00am June 08, 2023 9:23am Please contact the information source for Protocol details. Start: 12-16-2019 End: 06-08-2023 inject 10 [IU] by subcutaneous injection once daily Insulin Aspart U-100 Discontinued 10 UNITS subcut DAILY@0900 December 16, 2019 12:00am June 08, 2023 9:23am Start: 03-16-2019 NOVOLOG 100 UN IT/ML SOLN sliding scale three times daily INSULIN ASPART [id number] Rachael Newman MD Start: 04-25-2015 End: 09-26-2017 Insulin Aspart U-100 100 UNI TS/ML insulin pen Discontinued 10 U SC WITH BREAKFAST April 25, 2015 1:00am September 26, 2017 3:18pm Start: 04-25-2015 End: 07-14-2015 Insulin Aspart U-100 (Novolo g Flexpen U-100 Insulin) 100 UNITS/ML Flexpen Discontinued 0 U SC 3 TIMES DAILY WITH MEALS April 25, 2015 1:00am July 14, 2015 4:24pm Please contact the information source for Protocol details. Start: 04-25-2015 End: 09-26-2017 Insulin Aspart U-100 Discont inued 10 UNITS SC WITH BREAKFAST April 25, 2015 1:00am September 26, 2017 3:18pm Start: 04-06-2015 End: 09-26-2017 Insulin Aspart U-100 100 UNI TS/ML insulin pen Discontinued 20 U SC WITH DINNER April 06, 2015 1:00am September 26, 2017 3:18pm Start: 04-06-2015 End: 09-26-2017 Insulin Aspart U-100 100 UNI TS/ML insulin pen Discontinued 16 U SC WITH LUNCH April 06, 2015 1:00am September 26, 2017 3:18pm Start: 04-06-2015 End: 09-26-2017 Insulin Aspart U-100 Discont inued 20 UNITS SC WITH DINNER April 06, 2015 1:00am September 26, 2017 3:18pm Start: 04-06-2015 End: 09-26-2017 Insulin Aspart U-100 Discont inued 16 UNITS SC WITH LUNCH April 06, 2015 1:00am September 26, 2017 3:18pm lisinopril 40 mg oral tablet (20 sources) Angiotensin Converting Enzyme Inhibitor Start: 12-16-2019 End: 12-18-2019 take 1 tablet by mouth once daily Lisinopril 40 MG tablet Discontinued 40 mg PO DAILY December 16, 2019 12:00am December 18, 2019 8:42am Start: 03-16-2019 LISINOPRIL 40 MG TABS takes one tab once daily LISINOPRIL [id number] Rachael Newman MD melatonin 3 mg oral tablet (20 sources) Start: 12-16-2019 End: 06-08-2023 take 1 tablet by mouth at bedtime Melatonin 3 MG tablet Discontinued 3 mg PO AT BEDTIME December 16, 2019 12:00am June 08, 2023 9:23am Start: 03-16-2019 MELATONIN 10 M G TABS takes one tab once daily MELATONIN [id number] Rachael Newman MD meloxicam 7.5 mg oral tablet (20 sources) Nonsteroidal Anti-inflammatory Drug Start: 04-06-2015 End: 04-30-2015 take 1 tablet by mouth once daily Meloxicam 7.5 MG tablet Discontinued 7.5 mg PO DAILY April 06, 2015 1:00am April 30, 2015 11:05am mirtazapine 15 mg oral tablet (20 sources) Start: 12-16-2019 End: 06-08-2023 take 1 tablet by mouth at bedtime Mirtazapine 15 MG tablet Discontinued 15 mg PO AT BEDTIME December 16, 2019 12:00am June 08, 2023 9:23am morphine sulfate 15 mg extended release oral tablet (20 sources) Opioid Agonist Start: 07-14-2015 End: 09-20-2017 take 3 tablets by mouth three times daily Morphine 15 MG tablet Discontinued 45 mg PO THREE TIMES A DAY 60 July 14, 2015 1:00am September 20, 2017 2:45pm Start: 07-14-2015 End: 09-20-2017 take 45 mg by mouth three times daily Morphine Discontinued 45 MG PO THREE TIMES A DAY 60 July 14, 2015 1:00am September 20, 2017 2:45pm Start: 04-06-2015 End: 07-14-2015 Morphine 100 MG Cap.Er.Pel Discontinued 30 mg PO Q8H April 06, 2015 1:00am July 14, 2015 4:24pm Start: 04-06-2015 End: 07-14-2015 take 30 mg by mouth every eight hours Morphine Discontinued 30 MG PO Q8H April 06, 2015 1:00am July 14, 2015 4:24pm omeprazole 20 mg delayed release oral capsule (1 source) Proton Pump Inhibitor Start: 03-16-2019 OMEPRAZOLE 20 MG CPDR takes one tab once daily OMEPRAZOLE [id number] Rachael Newman MD oxyCODONE hydrochloride 5 mg oral tablet (20 sources) Opioid Agonist Start: 08-05-2024 End: 09-29-2024 take 1 tablet by mouth twice daily Oxycodone 5 mg tablet Discontinued 5 mg PO TWICE A DAY 60 August 31, 2024 September 29, 2024 12:00am September 29, 2024 2:56pm Start: 05-04-2024 End: 07-04-2024 take 1 tablet by mouth twice daily Oxycodone 5 mg tablet Discontinued 5 mg PO TWICE A DAY 62 June 04, 2024 July 03, 2024 1:00am July 04, 2024 1:22am Start: 07-11-2023 End: 08-10-2023 take 1 tablet by mouth twice daily Oxycodone 5 mg tablet Discontinued 5 mg PO .twice daily 60 July 11, 2023 August 09, 2023 12:00am August 10, 2023 12:14am Start: 06-05-2023 End: 07-11-2023 take 1 tablet by mouth every twelve hours Oxycodone 5 mg tablet Discontinued 5 mg PO Q12H June 05, 2023 1:00am July 11, 2023 5:24pm Start: 06-05-2023 Oxycodone Acti ve MG June 05, 2023 12:00am Start: 01-15-2023 End: 02-04-2023 take 1 tablet by mouth once daily Oxycodone 5 mg tablet Discontinued 5 mg PO DAILY 20 January 15, 2023 February 03, 2023 12:00am February 04, 2023 12:04am One tab daily at noon. Start: 01-15-2023 End: 02-04-2023 take 1 tablet by mouth twice daily Oxycodone 10 mg tablet Discontinued 10 mg PO TWICE A DAY 40 January 15, 2023 February 03, 2023 12:00am February 04, 2023 12:04am Start: 06-11-2022 End: 07-01-2022 take 1 tablet by mouth every four hours as needed for pain Oxycodone 10 mg tablet Discontinued 10 mg PO Q4H as needed for pain 90 June 11, 2022 June 30, 2022 1:00am July 01, 2022 1:05am Start: 12-16-2019 End: 01-15-2023 take 1 tablet by mouth three times daily Oxycodone 10 mg tablet Discontinued 10 mg PO THREE TIMES A DAY 90 June 11, 2022 January 15, 2023 5:56am Start: 03-16-2019 OXYCODONE HCL 10 MG TABS takes one tab three times daily as needed OXYCODONE HCL [id number] Rachael Newman MD Start: 07-14-2015 End: 09-20-2017 take 5-10 mg by mouth every four hours as needed for pain Oxycodone 5 MG tablet Discontinued 5 - 10 mg PO EVERY 4 HOURS NEEDED as needed for Pain 60 July 14, 2015 1:00am September 20, 2017 2:45pm Start: 04-30-2015 End: 07-14-2015 take 2 tablets by mouth every three hours as needed for pain Oxycodone 5 MG tablet Discontinued 10 mg PO Q3H as needed for Pain 60 April 30, 2015 1:00am July 14, 2015 4:25pm FOR BREAKTHROUGH PAIN Start: 04-30-2015 End: 07-14-2015 take 10 mg by mouth every three hours for pain Oxycodone Discontinued 10 MG PO Q3H 60 April 30, 2015 1:00am July 14, 2015 4:25pm FOR BREAKTHROUGH PAIN raNITIdine 150 mg oral tablet (1 source) Histamine-2 Receptor Antagonist Start: 03-16-2019 RANITIDINE HCL 150 MG TABS takes one tab once daily RANITIDINE HCL [id number] Rachael Newman MD rOPINIRole 0.5 mg oral tablet (20 sources) Nonergot Dopamine Agonist Start: 06-08-2023 End: 08-24-2024 take 1 tablet by mouth once daily Ropinirole 0.5 mg tablet Discontinued 0.5 mg PO DAILY June 08, 2023 1:00am August 24, 2024 8:54am Start: 12-16-2019 End: 06-08-2023 take 1 tablet by mouth three times daily Ropinirole 2 MG tablet Discontinued 2 mg PO THREE TIMES A DAY December 16, 2019 12:00am June 08, 2023 9:23am tiZANidine 2 mg oral capsule (20 sources) Central alpha-2 Adrenergic Agonist Start: 09-20-2017 End: 09-26-2017 take 1 mg by mouth every eight hours as needed for muscle spasms Tizanidine 2 MG capsule Discontinued 1 mg PO EVERY 8 HOURS as needed for Spasms September 20, 2017 12:00am September 26, 2017 3:19pm Start: 09-20-2017 End: 09-26-2017 take 1 mg by mouth every eight hours Tizanidine Discontinued 1 MG PO EVERY 8 HOURS September 20, 2017 12:00am September 26, 2017 3:19pm 24 hr venlafaxine 75 mg extended release oral capsule (8 sources) Serotonin and Norepinephrine Reuptake Inhibitor Start: 06-05-2023 End: 08-24-2024 take 1 capsule by mouth once daily Venlafaxine 75 mg capsule,extended release 24hr Discontinued 75 mg PO DAILY June 05, 2023 1:00am August 24, 2024 8:54am Start: 06-05-2023 Venlafaxine Ac tive MG PO June 05, 2023 12:00am Problems Active Problems Problem Classification Problem Date Documented Date Episodic/Chronic Acute and unspecified renal failure (20 sources) Acute renal failure syndrome; Translations: [Acute kidney failure, unspecified] 12-16-2019 Episodic Cardiac dysrhythmias (20 sources) Paroxysmal atrial fibrillation; Translations: [Paroxysmal atrial fibrillation] 12-16-2019 Chronic Chronic kidney disease (20 sources) Chronic kidney disease stage 3; Translations: [Stage 3 chronic kidney disease] 12-16-2019 Chronic Chronic kidney disease (2 sources) Chronic kidney disease; Translations: [Chronic kidney disease, stage 3 unspecified] Onset: 06-17-2024 Complication of device; implant or graft (20 sources) Prosthetic joint infection; Translations: [Infection and inflammatory reaction due to unspecified internal joint prosthesis, initial encounter] 12-16-2019 Episodic Diabetes mellitus with complications (4 sources) Type 2 diabetes mellitus with diabetic nephropathy; Translations: [Type 2 diabetes mellitus with diabetic chronic kidney disease] Onset: 06-17-2024 Chronic Diabetes mellitus without complication (20 sources) Type 2 diabetes mellitus; Translations: [Type 2 diabetes mellitus without complications] 12-16-2019 Chronic Disorders of lipid metabolism (20 sources) Hyperlipidemia; Translations: [Hyperlipidemia, unspecified] 12-16-2019 Chronic E Codes: Fall (7 sources) Fall; Translations: [Unspecified fall, initial encounter] 06-16-2023 Episodic Esophageal disorders (20 sources) Gastroesophageal reflux disease; Translations: [Gastro-esophageal reflux disease without esophagitis] 12-16-2019 Chronic Essential hypertension (20 sources) Hypertensive disorder; Translations: [Essential (primary) hypertension] 12-16-2019 Chronic Fluid and electrolyte disorders (20 sources) Hyperkalemia; Translations: [Hyperkalemia] 12-16-2019 Episodic Nutritional deficiencies (2 sources) Vitamin D deficiency, unspecified; Translations: [Vitamin D deficiency, unspecified] Onset: 05-08-2024 Chronic Open wounds of head; neck; and trunk (8 sources) Laceration of forehead; Translations: [Laceration without foreign body of other part of head, initial encounter] 06-05-2023 Episodic Osteoarthritis (1 source) Unilateral primary osteoarthritis, right knee; Translations: [Unilateral primary osteoarthritis, right knee] Onset: 08-27-2024 Chronic Other injuries and conditions due to external causes (8 sources) Closed injury of head; Translations: [Unspecified injury of head, initial encounter] 06-05-2023 Episodic Other nervous system disorders (20 sources) Chronic pain; Translations: [Other chronic pain] 12-18-2019 Chronic Other nervous system disorders (1 source) Chronic pain syndrome; Translations: [Chronic pain syndrome] Onset: 05-08-2024 Chronic Other non-traumatic joint disorders (5 sources) Pain in right knee; Translations: [Pain in both knees] 05-04-2024 Episodic Parkinson`s disease (20 sources) Parkinson's disease; Translations: [Parkinson's disease] 12-16-2019 Chronic Parkinson`s disease (2 sources) Parkinson`s disease; Translations: [Parkinson's disease without dyskinesia, without mention of fluctuations] Onset: 06-17-2024 Residual codes; unclassified (1 source) Altered mental status, unspecified; Translations: [Altered mental status, unspecified] Onset: 07-14-2024 Episodic Spondylosis; intervertebral disc disorders; other back problems (20 sources) Cervical spondylosis; Translations: [Lumbosacral spondylosis without myelopathy] Onset: 03-16-2019 03-16-2019 Chronic Superficial injury; contusion (7 sources) Contusion of upper limb; Translations: [Contusion of unspecified upper arm, initial encounter] 06-16-2023 Episodic Past or Other Problems Problem Classification Problem Date Documented Da te Episodic/Chronic Skin and subcutaneous tissue infections (1 source) Cellulitis, unspecified; Translations: [Cellulitis, unspecified] Onset: 01-17-2024 Episodic Unclassified (1 source) Problem Results Test Name Value Interpretation Reference Range Facility Anion gap in Serum or Plasma Ordered By: Donato Sepulveda on 10-06-2024 Anion gap [Moles/Vol] 10 mmol/L 5-15 [facility] BUN/creatinine ratioOrdered By: Donato Sepulveda on 10-06-2024 Urea nitrogen/Creatinine [Mass ratio] 21.9 mg/mg High 10-20 [facility] Bilirubin directOrdered By: Donato Sepulveda on 10-06-2024 Bilirubin.direct [Mass/Vol] 0.11 mg/dL 0.00-0.30 [facility] Bilirubin, totalOrdered By: Donato Sepulveda on 10-06-2024 Bilirubin [Mass/Vol] 0.24 mg/dL 0.00-1.30 [facility] Calculated very low density lipoprotein (VLDL) cholesterol measurementOrdered By: Donato Sepulveda on 10-06-2024 Calculated very low density lipoprotein (VLDL) cholesterol measurement 14 mg/dL 5-40 [facility] Carbon dioxide, total [Moles /volume] in Central venous bloodOrdered By: Donato Sepulveda on 10-06-2024 CO2 [Moles/Vol] 29.2 mmol/L 21.0-32.0 [facility] Chloride assayOrdered By: Livier Sepulveda on 10-06-2024 Chloride [Moles/Vol] 99 mmol/L 98-108 [facility] Erythrocyte distribution wid th ratioOrdered By: [facility] on 10-06-2024 Erythrocyte distribution width (RBC) [Ratio] 12.8 % 11.6-14.6 [facility] Erythrocyte distribution wid th standard deviationOrdered By: stusulphurchar Sepulveda on 10-06-2024 Erythrocyte distribution width (RBC) [Ratio] 43.8 fl 35.1-43.9 [facility] Glomerular filtration rate ( GFR) estimation/1.73 sq m using serum, plasma, or whole bOrdered By: Donato Sepulveda on 10-06-2024 GFR/1.73 sq M.predicted among non-blacks MDRD (S/P/Bld) [Vol rate/Area] 79 mL/min/{1.73_m2} >60 [facility] Comment on above: mL/min/1.73m2 CKD-EP I Creatinine Equation (2020) Hematocrit Auto (Bld) [Volum e fraction]Ordered By: Donato Sepulveda on 10-06-2024 Hematocrit (Bld) [Volume fraction] 37.1 % 37-47 [facility] Hemoglobin A1c percentageOrd ered By: balaji Sepulveda on 10-06-2024 HbA1c (Bld) [Mass fraction] 9.5 % High <5.7 [facility] Comment on above: Normal < 5.7 % Predi abetic 5.7 - 6.4 % Diabetic >or= 6.5 % Please note range changes. Hemoglobin measurementOrdere d By: Donato Sepulveda on 10-06-2024 Hemoglobin (Bld) [Mass/Vol] 11.9 g/dL Low 12.0-15.0 [facility] LDL calc ser/plasOrdered By: Donato Sepulveda on 10-06-2024 Cholesterol in LDL [Mass/Vol] 92 mg/dL [facility] Comment on above: Befnfpvibv=657-575 m g/dL & Higher Ypdr=312 mg/dL or greater Laboratory - Chemistry and C hemistry - challengeOrdered By: Donato Sepulveda on 10-06-2024 AST [Catalytic activity/Vol] 19 U/L <32 [facility] MCV (mean corpuscular volume ) determinationOrdered By: Donato Sepulveda on 10-06-2024 MCV (RBC) [Entitic vol] 92.8 fL 81-99 [facility] Mean corpuscular hemoglobin (MCH) determinationOrdered By: Donato Sepulveda on 10-06-2024 MCH (RBC) [Entitic mass] 29.8 pg 27.0-32.0 [facility] Mean corpuscular hemoglobin concentration (MCHC) determinationOrdered By: Donato Sepulveda on 10-06-2024 MCHC (RBC) [Mass/Vol] 32.1 g/dL 32-36 [facility] Mean platelet volume determi nationOrdered By: Donato Sepulveda on 10-06-2024 Platelet mean volume (Bld) [Entitic vol] 10.8 fL 6.2-12.0 [facility] Platelet countOrdered By: Livier Sepulveda on 10-06-2024 Platelets (Bld) [#/Vol] 182 10*3/uL 150-450 [facility] Potassium measurement (mass/ volume)Ordered By: Donato Sepulveda on 10-06-2024 Potassium (Unsp spec) [Mass/Vol] 4.3 mmol/L 3.3-5.1 [facility] RBC Auto (Bld) [#/Vol]Ordere d By: Donato Sepulveda on 10-06-2024 RBC (Bld) [#/Vol] 4.00 10*6/uL Low 4.2-5.4 [facility] Screening total cholesterol/ high density lipoprotein (HDL) cholesterol ratioOrdered By: Donato Sepulveda on 10-06-2024 Cholesterol.total/Choles terol in HDL [Mass ratio] 2.80 {ratio} [facility] Serum creatinine measurement (mass/volume)Ordered By: Donato Sepulveda on 10-06-2024 Creatinine [Mass/Vol] 0.75 mg/dL 0.70-1.20 [facility] Serum globulin measurementOr dered By: Donato Sepulveda on 10-06-2024 Globulin (S) [Mass/Vol] 2.3 g/dL 2.2-4.2 [facility] Serum glucose measurement (m ass/volume)Ordered By: Donato Sepulveda on 10-06-2024 Glucose [Mass/Vol] 232 mg/dL High 70-99 [facility] Serum or plasma alanine rivera otransferase (ALT) measurementOrdered By: Donato Sepulveda on 10-06-2024 ALT [Catalytic activity/Vol] 8 U/L <35 [facility] Serum or plasma albumin serge urement (mass/volume)Ordered By: Donato Sepulveda on 10-06-2024 Albumin [Mass/Vol] 3.7 g/dL 3.4-4.8 [facility] Serum or plasma alkaline stephane sphatase measurementOrdered By: Donato Sepulveda on 10-06-2024 ALP [Catalytic activity/Vol] 50 U/L 35-104 [facility] Serum or plasma calcium serge urement (mass/volume)Ordered By: Donato Sepulveda on 10-06-2024 Calcium [Mass/Vol] 9.1 mg/dL 7.6-11.0 [facility] Serum or plasma cholesterol in HDL measurement (mass/volume)Ordered By: Donato Sepulveda on 10-06-2024 Cholesterol in HDL [Mass/Vol] 59 mg/dL >40 [facility] Comment on above: National Cholesterol Education Program (NCEP) guidelines:<40 mg/dL: Low HDL-cholesterol (major risk factor for CHD)>= 60 mg/dL: High HDL-cholesterol (negative risk factor for CHD)HDL-cholesterol is affected by a number of factors, e.g. smoking, exercise, hormones, sex and age. Serum or plasma cholesterol measurement (mass/volume)Ordered By: Donato Sepulveda on 10-06-2024 Cholesterol [Mass/Vol] 164 mg/dL <201 [facility] Comment on above: Cholesterol level, D esirable <200 mg/dLBorderline high cholesterol 200-239 mg/dLHigh cholesterol >=240 mg/dLRecommendations of the NCEP Adult Treatment Panel for the following risk-cutoff thresholds for the [place] population. Serum or plasma urea nitroge n measurement (mass/volume)Ordered By: Donato Sepulveda on 10-06-2024 Urea nitrogen [Mass/Vol] 16 mg/dL 4-19 [facility] Sodium levelOrdered By: Raul wickjanelleruthann Sepulveda on 10-06-2024 Sodium [Moles/Vol] 138 mmol/L 133-145 [facility] Total proteinOrdered By: Sherwin Sepulveda on 10-06-2024 Protein [Mass/Vol] 6.0 g/dL 5.9-8.4 [facility] Triglycerides measurementOrd ered By: Donato Sepulveda on 10-06-2024 Triglyceride [Mass/Vol] 68 mg/dL <199 [facility] Comment on above: The drugs N-Acetylcy steine and Metamizole may falsely depress this assay. Normal range: <150 mg/dLBorderline High: 150-199 mg/dLHigh: 200-499 mg/dLVery High: >500 mg/dL White blood cell (WBC) count Ordered By: Donato Sepulveda on 10-06-2024 WBC (Bld) [#/Vol] 7.1 10*3/uL 4.4-11.0 [facility] Hemoglobin A1c percentageOrd ered By: Donato Sepulveda on 09-08-2024 HbA1c (Bld) [Mass fraction] 8.8 % High <5.7 [facility] Comment on above: Normal < 5.7 % Predi abetic 5.7 - 6.4 % Diabetic >or= 6.5 % Please note range changes. Bedside Glucoseon 08-24-2024 FINGERSTICK GLU 240 mg/dL High 74-106 [facility] Comment on above: Result Comment: JEWELS RAJPUT OF PATIENT CARE PER NURSING PROTOCOL Performed By: #### L 501.080 #### [facility] [address] [place], [place], [address] Fluoro Guided Needle Placeme nton 08-24-2024 Fluoro Guided Needle Placement [facility] Imaging Services [address] [place], [place] [address] Fluoro Guided Needle Placement MR#: [id number] Acct: [id number] Name: MINDY CHINCHILLA Rep #: [id number] : 1940 F 84 From: Tomi metz MD PCP: Dr. Donato Sepulveda MD Status: [facility] Study: Fluoro Guided Needle Placement Date of Exam: 0 08/24/24 Exam# [id number] Ordering Dr: Amrando Rich MD PROCEDURE: FLUORO GUIDED NEEDLE PLACEMENT 08/24/2024 REASON FOR EXAM: RT KNEE INJECTION TECHNIQUE: Intraoperative fluoroscopic services provided for right knee injection. 5.1 seconds of fluoroscopy. 0.85 mGy. 4 images were taken. COMPARISON: None FINDINGS: Intraoperative fluoroscopic services for knee injection. RAD/Fluoro Guided Needle Placement IMPRESSION: Fluoroscopic services provided for right knee injection. Reading Location: [place] [address] CC: Dr. Donato Sepulveda MD; Dr. Armando Rich MD Java Software Architect: Signed Normal [facility] Glucose measurement at [facility] deOrdered By: Armando Rich on 08-24-2024 Bedside Glucose (Misc Panel) 240 mg/dL High 74-106 [facility] Comment on above: MANAGEMENT OF PATIEN T CARE PER NURSING PROTOCOL Glucose [Mass/Vol] 240 mg/dL High 74-106 [facility] Comment on above: MANAGEMENT OF PATIEN T CARE PER NURSING PROTOCOL Operative Reporton Operative Report [facility] Medical Records Department [address] [place] [address] Operative Report 08/24/24 0932 MR#: [id number] Acct: [id number] Name: MINDY CHINCHILLA Rep #: [id number] : 1940 84 From: Armando Rich MD PCP: Dr. Donato Sepulveda MD Status:REG [facility] Location: [address] Operative Report (Standard) Operative Information Date of Procedure: 08/24/24 Pre-Operative Diagnosis: Osteoarthritis of the right knee, chronic postoperative knee pain Post-Operative Diagnosis: Osteoarthritis of the right knee, chronic postoperative knee pain Surgery/Procedure Performed: Right knee superior medial/superior lateral/inferior medial genicular nerves steroid injection under fluoroscopic guidance gas scrubber operator: No Type of Anesthesia: Local RN Documented Start/Stop Times: Operation Date: 08/24/24 09:20 Case Time Into Pre-Op 08/24/24 08:32 Into Room 08/24/24 09:18 Procedure Start 08/24/24 09:24 Procedure End 08/24/24 09:28 Out of Room 08/24/24 09:30 Procedure Start Time: 09:33 Procedure Stop Time: 09:33 Select all DRAINS/GRAFTS/IMPL ANTS that apply: None Estimated Blood Loss: 1 Specimen collected: No Description of surgery: DESCRIPTION OF PROCEDURE: History and physical of today was reviewed. Risks and benefits of the procedure were explained. The patient understood and agreed to proceed. Informed consent was obtained. IV inserted per routine protocol. The patient was taken to the operating room and placed in the supine position. The right knee was prepped and draped in a sterile fashion using iodine x3. Under fluoroscopy guidance on AP view, the right knee was visualized. The skin and subcutaneous tissue was anesthetized with approximately 5 mL of 1% lidocaine using a 25-gauge regular needle at the vicinity of the superomedial, superolateral, and inferomedial genicular nerves. Under direct visualization of fluoroscopy on AP view as well as lateral view, starting on the right superomedial, ending on the right inferomedial, passing through the right superolateral genicular nerves, the needle was passed through the skin. The tip of the needle was maneuvered and directed towards the diaphyseal junction of each corresponding nerve. Once tip of the needle was in the vicinity of the diaphysis and in contact with the bone, after confirmation on AP as well as lateral view and repeated negative aspiration for blood, a total of 12 mL of preservative-free 0.25% Marcaine with 80 mg of Depo-Medrol was injected in divided doses between those three levels. The needles were then removed intact. The patient experienced no sign or symptoms of intravascular injection. The patient experienced no paresthesia. The procedure was completed without any apparent difficulty or any complications. The patient appeared to tolerate it well. ASSESSMENT AND PLAN: This is an 84-year-old female with osteoarthritis of the right knee, chronic postoperative knee pain, status post right knee superior medial/superior lateral/inferior medial genicular nerves steroid injection under fluoroscopic guidance, patient will continue her current medications, patient will follow-up in approximately 2 weeks for reevaluation. Surgical Findings: 0 Complications Complications: No Admit VTE Documentation VTE Present on Admission: No VTE Mechan Device Prophylaxis: None VTE Pharm Prophylaxis ordered?: No 08/24/24 0935 Cosigner Signature (if applicable): CC: PALOMA Schneider; Dr. Donato Sepulveda MD; Dr. Armando Rich MD Signed Normal [facility] Absolute lymphocyte countOrd ered By: Donato Sepulveda on 07-15-2024 Lymphocytes Auto (Unsp spec) [#/Vol] 1.27 10*3/uL 0.83-4.51 [facility] Absolute neutrophil countOrd ered By: Donato Sepulveda on 07-15-2024 Neutrophils (Bld) [#/Vol] 4.2 10*3/uL 2.0-7.7 [facility] Anion gap in Serum or Plasma Ordered By: Donato Sepulveda on 07-15-2024 Anion gap [Moles/Vol] 12 mmol/L 5-15 [facility] Automated lymphocyte count a s percentage of total leukocytesOrdered By: Donato Sepulveda on 07-15-2024 Lymphocytes/100 WBC Auto (Unsp spec) 21.1 % 19-41 [facility] BUN/creatinine ratioOrdered By: Donato Sepulveda on 07-15-2024 Urea nitrogen/Creatinine [Mass ratio] 17.5 mg/mg 10-20 [facility] Basophil percentageOrdered B y: Donato Sepulveda on 07-15-2024 Basophils/100 WBC (Bld) 0.5 % 0-1 [facility] Bilirubin Test strip Ql (U)O rdered By: Donato Sepulveda on 07-15-2024 Bilirubin Ql (U) Negative Negative [facility] Bilirubin, totalOrdered By: Livierbalaji Harjitrjruthann on 07-15-2024 Bilirubin [Mass/Vol] 0.31 mg/dL 0.00-1.30 [facility] Carbon dioxide, total [Moles /volume] in Central venous bloodOrdered By: Donato Lombardirjruthann on 07-15-2024 CO2 [Moles/Vol] 28.3 mmol/L 21.0-32.0 [facility] Chloride assayOrdered By: Livier balaji Harjitrjruthann on 07-15-2024 Chloride [Moles/Vol] 98 mmol/L 98-108 [facility] Eosinophil percentageOrdered By: Rauldyanchar Lombardirjruthann on 07-15-2024 Eosinophils/100 WBC (Bld) 1.7 % 0-5 [facility] Erythrocyte distribution wid th (RBC) [Ratio]Ordered By: Donato Sepulveda on 07-15-2024 Erythrocyte distribution width (RBC) [Entitic vol] 43.9 fL 35.1-43.9 [facility] Erythrocyte distribution wid th ratioOrdered By: Galichar Harjitrjruthann on 07-15-2024 Erythrocyte distribution width (RBC) [Ratio] 13.2 % 11.6-14.6 [facility] Erythrocyte distribution wid th standard deviationOrdered By: Donato Harjitbryan on 07-15-2024 Erythrocyte distribution width (RBC) [Ratio] 43.9 fl 35.1-43.9 [facility] GFR/1.73 sq M.predicted maxime g non-blacks MDRD (S/P/Bld) [Vol rate/Area]Ordered By: Donato Sepulveda on 07-15-2024 Estimated GFR (MDRD) Non-Af Amer 88 >60 [facility] Comment on above: mL/min/1.73m2 CKD-EP I Creatinine Equation (2020) Glomerular filtration rate ( GFR) estimation/1.73 sq m using serum, plasma, or whole bOrdered By: Donato Sepulveda on 07-15-2024 GFR/1.73 sq M.predicted among non-blacks MDRD (S/P/Bld) [Vol rate/Area] 88 mL/min/{1.73_m2} >60 [facility] Comment on above: mL/min/1.73m2 CKD-EP I Creatinine Equation (2020) Glucose Ql (U)Ordered By: Livier Sepulveda on 07-15-2024 Glucose (U) [Mass/Vol] 1000 mg/dL High Normal [facility] Hematocrit Auto (Bld) [Volum e fraction]Ordered By: Donato Sepulveda on 07-15-2024 Hematocrit (Bld) [Volume fraction] 38.9 % 37-47 [facility] Hemoglobin measurementOrdere d By: Donato Sepulveda on 07-15-2024 Hemoglobin (Bld) [Mass/Vol] 12.6 g/dL 12.0-15.0 [facility] Immature granulocytes/100 WB C Auto (Bld)Ordered By: Donato Sepulveda on 07-15-2024 Immature granulocytes/100 WBC (Bld) 0.200 % 0.0-0.9 [facility] Comment on above: IG% - Immature Granu locytes (promyelocytes, myelocytes and metamyelocytes) > 1% indicates that a LEFT SHIFT is Present. Ketones Test strip Ql (U)Ord ered By: Donato Sepulveda on 07-15-2024 Ketones Ql (U) Negative Negative [facility] - Chemistry and C hemistry - challengeOrdered By: Donato Sepulveda on 07-15-2024 AST [Catalytic activity/Vol] 18 U/L <32 [facility] Lymphocytes Auto (Unsp spec) [#/Vol]Ordered By: Donato Sepulveda on 07-15-2024 Lymphocytes (Bld) [#/Vol] 1.27 10*3/uL 0.83-4.51 [facility] Lymphocytes/100 WBC Auto (Un sp spec)Ordered By: Donato Sepulveda on 07-15-2024 Lymphocytes/100 WBC (Bld) 21.1 % 19-41 [facility] MCV (mean corpuscular volume ) determinationOrdered By: Donato Sepulveda on 07-15-2024 MCV (RBC) [Entitic vol] 91.3 fL 81-99 [facility] Mean corpuscular hemoglobin (MCH) determinationOrdered By: Donato Sepulveda on 07-15-2024 MCH (RBC) [Entitic mass] 29.6 pg 27.0-32.0 [facility] Mean corpuscular hemoglobin concentration (MCHC) determinationOrdered By: Donato Sepulveda on 07-15-2024 MCHC (RBC) [Mass/Vol] 32.4 g/dL 32-36 [facility] Mean platelet volume determi nationOrdered By: Donato Sepulveda on 07-15-2024 Platelet mean volume (Bld) [Entitic vol] 10.7 fL 6.2-12.0 [facility] Monocyte percentageOrdered B y: Donato Sepulveda on 07-15-2024 Monocytes/100 WBC (Bld) 7.5 % 0-10 [facility] Neutrophil percentageOrdered By: Donato Sepulveda on 07-15-2024 Neutrophils/100 WBC (Bld) 69.0 % 47-70 [facility] Nitrite Test strip Ql (U)Ord ered By: Donato Sepulveda on 07-15-2024 Nitrite Ql (U) Negative Negative [facility] Nucleated red blood cell per centageOrdered By: Donato Sepulveda on 07-15-2024 Nucleated RBC/100 WBC (Bld) [Ratio] 0 % 0-5 [facility] Platelet countOrdered By: Livier stumarcela Sepulveda on 07-15-2024 Platelets (Bld) [#/Vol] 188 10*3/uL 150-450 [facility] Potassium (Unsp spec) [Mass/ Vol]Ordered By: Donato Sepulveda on 07-15-2024 Potassium [Moles/Vol] 4.3 mmol/L 3.3-5.1 [facility] Potassium measurement (mass/ volume)Ordered By: Donato Sepulveda on 07-15-2024 Potassium (Unsp spec) [Mass/Vol] 4.3 mmol/L 3.3-5.1 [facility] Protein Test strip Ql (U)Ord ered By: Donato Sepulveda on 07-15-2024 Protein Ql (U) Negative Negative [facility] RBC Auto (Bld) [#/Vol]Ordere d By: Donato Sepulveda on 07-15-2024 RBC (Bld) [#/Vol] 4.26 10*6/uL 4.2-5.4 [facility] Serum creatinine measurement (mass/volume)Ordered By: Donato Sepulveda on 07-15-2024 Creatinine [Mass/Vol] 0.65 mg/dL Low 0.70-1.20 [facility] Serum globulin measurementOr dered By: Donato Sepulveda on 07-15-2024 Globulin (S) [Mass/Vol] 2.6 g/dL 2.2-4.2 [facility] Serum glucose measurement (m ass/volume)Ordered By: Donato Sepulveda on 07-15-2024 Glucose [Mass/Vol] 322 mg/dL High 70-99 [facility] Serum or plasma alanine rivera otransferase (ALT) measurementOrdered By: Donato Sepulveda on 07-15-2024 ALT [Catalytic activity/Vol] 9 U/L <35 [facility] Serum or plasma albumin serge urement (mass/volume)Ordered By: Donato Sepulveda on 07-15-2024 Albumin [Mass/Vol] 3.9 g/dL 3.4-4.8 [facility] Serum or plasma albumin/glob ulin mass ratioOrdered By: Donato Sepulveda 07-15-2024 Albumin/Globulin [Mass ratio] 1.5 {ratio} 0.9-2.4 [facility] Serum or plasma alkaline stephane sphatase measurementOrdered By: Donato Sepulveda 07-15-2024 ALP [Catalytic activity/Vol] 59 U/L 35-104 [facility] Serum or plasma calcium serge urement (mass/volume)Ordered By: Donato Sepulveda 07-15-2024 Calcium [Mass/Vol] 9.6 mg/dL 7.6-11.0 [facility] Serum or plasma urea nitroge n measurement (mass/volume)Ordered By: Donato Sepulveda 07-15-2024 Urea nitrogen [Mass/Vol] 11 mg/dL 4-19 [facility] Sodium levelOrdered By: Raul Sepulveda on 07-15-2024 Sodium [Moles/Vol] 138 mmol/L 133-145 [facility] Total proteinOrdered By: Sherwin Sepulveda on 07-15-2024 Protein [Mass/Vol] 6.6 g/dL 5.9-8.4 [facility] Urine blood detectionOrdered By: Donato Sepulveda on 07-15-2024 Urine Occult Blood Negative Negative [facility] Urine clarityOrdered By: Sherwin Sepulveda on 07-15-2024 Clarity (U) Sl. Cloudy Clear [facility] Urine color determinationOrd ered By: Donato Sepulveda on 07-15-2024 Color (U) Yellow Yellow [facility] Urine cultureOrdered By: Sherwin Sepulveda on 07-15-2024 Bacteria identified Cx Nom (U) GNR lactose terminal make up operator Abnormal [facility] Bacteria identified Cx Nom (U) Staphylococcus epidermidis Abnormal [facility] Urine glucose detectionOrder ed By: Donato Sepulveda on 07-15-2024 Glucose Ql (U) 1000 mg/dl High Normal [facility] Urine leukocyte esterase det ection by dipstickOrdered By: Donato Sepulveda on 07-15-2024 Leukocyte esterase Test strip Ql (U) Negative Negative [facility] Urine pHOrdered By: Harvey Sepulveda on 07-15-2024 pH (U) 7.0 [pH] 5.0 - 8.0 [facility] Urine specific gravity measu rementOrdered By: Donato Sepulveda on 07-15-2024 Specific gravity (U) [Rel density] 1.010 1.002-1.030 [facility] Urine urobilinogen measureme ntOrdered By: Donato Sepulveda on 07-15-2024 Urobilinogen Ql (U) 1 mg/dl High Normal [facility] Urobilinogen Ql (U)Ordered B y: Donato Sepulveda on 07-15-2024 Urobilinogen (U) [Mass/Vol] 1 mg/dL High Normal [facility] White blood cell (WBC) count Ordered By: Donato Sepulveda on 07-15-2024 WBC (Bld) [#/Vol] 6.0 10*3/uL 4.4-11.0 [facility] Vitamin D, 25-hydroxyOrdered By: Donato Sepulveda on 07-14-2024 Vitamin D 25-Hydroxy 33.9 ng/mL 30-100 [facility] Comment on above: Vitamin D StatusDefi ciency: <20 ng/mL (50nmol/L)Insufficiency: 20-30 ng/mL (50-75 nmol/L)Sufficiency: 30-100 ng/mL (75-250 nmol/L)Toxicity: >100 ng/mL (>250 nmol/L) Bilirubin Test strip Ql (U)O rdered By: Donato Sepulveda on 06-15-2024 Bilirubin Ql (U) Negative Negative [facility] Glucose Ql (U)Ordered By: Livier Sepulveda on 06-15-2024 Glucose (U) [Mass/Vol] 1000 mg/dL High Normal [facility] Ketones Test strip Ql (U)Ord ered By: Donato Sepulveda on 06-15-2024 Ketones Ql (U) Negative Negative [facility] Nitrite Test strip Ql (U)Ord ered By: Donato Sepulveda on 06-15-2024 Nitrite Ql (U) Negative Negative [facility] Protein Test strip Ql (U)Ord ered By: Donato Sepulveda on 06-15-2024 Protein Ql (U) Negative Negative [facility] Urine blood detectionOrdered By: Donato Sepulveda on 06-15-2024 Urine Occult Blood 150 /ul High Negative [facility] Urine clarityOrdered By: Sherwni Sepulveda on 06-15-2024 Clarity (U) Clear Clear [facility] Urine color determinationOrd ered By: Donato Sepulveda on 06-15-2024 Color (U) Yellow Yellow [facility] Urine cultureOrdered By: Sherwin Sepulveda on 06-15-2024 Bacteria identified Cx Nom (U) Mixed Gram Pos & Gram Neg Org Abnormal [facility] Urine glucose detectionOrder ed By: Donato Sepulveda on 06-15-2024 Glucose Ql (U) 1000 mg/dl High Normal [facility] Urine leukocyte esterase det ection by dipstickOrdered By: Donato Sepulveda on 06-15-2024 Leukocyte esterase Test strip Ql (U) 25 /ul High Negative [facility] Urine pHOrdered By: Harvey Sepulveda on 06-15-2024 pH (U) 6.0 [pH] 5.0 - 8.0 [facility] Urine specific gravity measu rementOrdered By: Donato Sepulveda on 06-15-2024 Specific gravity (U) [Rel density] 1.010 1.002-1.030 [facility] Urine urobilinogen measureme ntOrdered By: Donato Sepulveda on 06-15-2024 Urobilinogen Ql (U) Normal mg/dl Normal [facility] Urobilinogen Ql (U)Ordered B y: Donato Sepulveda on 06-15-2024 Urine Urobilinogen Normal mg/dl Normal [facility] Hemoglobin A1c percentageOrd ered By: Donato Sepulveda on 06-09-2024 HbA1c (Bld) [Mass fraction] 8.6 % High 3.8-5.6 [facility] Comment on above: Normal < 5.7 % Predi abetic 5.7 - 6.4 % Diabetic >or= 6.5 % Please note range changes. [id number] DOrdered By: Ruthann Sepulveda on 06-02-2024 Vitamin D 25-Hydroxy 53.0 ng/mL [facility] Comment on above: Vitamin D 25(OH) Sta tus Range Deficiency <20 ng/mL (50nmol/L) Insufficiency 20 - 30 ng/mL (50 - 75 nmol/L) Sufficiency 30 - 100 ng/mL (75 - 250 nmol/L) Toxicity >100 ng/mL (>250 nmol/L) 53-HR-Prklolo DOrdered By: Ruthann Sepulveda on 04-21-2024 Vitamin D 25-Hydroxy 64.0 ng/mL [facility] Comment on above: Vitamin D 25(OH) Sta tus Range Deficiency <20 ng/mL (50nmol/L) Insufficiency 20 - 30 ng/mL (50 - 75 nmol/L) Sufficiency 30 - 100 ng/mL (75 - 250 nmol/L) Toxicity >100 ng/mL (>250 nmol/L) Basophil percentageOrdered B y: Donato Sepulveda on 08-06-2023 Bilirubin [Mass/Vol] 0.50 mg/dL 0.20-1.00 [facility] Comment on above: For patients on eltr ombopag therapy, use of Dimension Sallis TBIL is not recommended. Chloride [Moles/Vol] 105 mmol/L 98-107 [facility] Glucose [Mass/Vol] 153 mg/dL 74-106 [facility] Comment on above: Fasting Glucose resu lt greater than or equal to 126 mg/dL suggests DIABETES MELLITUS per A.D.A. criteria. Hemoglobin (Bld) [Mass/Vol] 12.4 g/dL 12.0-15.0 [facility] Potassium [Moles/Vol] 4.0 mmol/L 3.5-5.1 [facility] Protein [Mass/Vol] 6.7 g/dL 6.4-8.2 [facility] Sodium [Moles/Vol] 139 mmol/L 136-145 [facility] WBC (Bld) [#/Vol] 5.9 10*3/uL 4.4-11.0 [facility] Determination of erythrocyte mean corpuscular volume (MCV)Ordered By: Donato Sepulveda on 08-06-2023 MCV (RBC) [Entitic vol] 92.5 fL 81-99 [facility] Erythrocyte distribution wid th ratioOrdered By: Raulsulphurchar Sepulveda on 08-06-2023 Erythrocyte distribution width (RBC) [Ratio] 13.3 % 11.6-14.6 [facility] Erythrocyte distribution wid th standard deviationOrdered By: Raulsulphurchar Sepulveda on 08-06-2023 Erythrocyte distribution width (RBC) [Entitic vol] 45.2 fL 35.1-43.9 [facility] Hematocrit Auto (Bld) [Volum e fraction]Ordered By: Donato Sepulveda on 08-06-2023 Hematocrit (Bld) [Volume fraction] 39.7 % 37-47 [facility] Laboratory - Chemistry and C hemistry - challengeOrdered By: Donato Sepulveda on 08-06-2023 Albumin/Globulin [Mass ratio] 1.0 {ratio} 0.9-2.4 [facility] ALP [Catalytic activity/Vol] 59 U/L 45-117 [facility] ALT [Catalytic activity/Vol] 13 U/L 13-56 [facility] CO2 [Moles/Vol] 29.0 mmol/L 21.0-32.0 [facility] Globulin (S) [Mass/Vol] 3.3 g/dL 2.2-4.2 [facility] Urea nitrogen/Creatinine [Mass ratio] 14.4 mg/mg 10-20 [facility] - Hematology and Cell countsOrdered By: Donato Sepulveda on 08-06-2023 MCH (RBC) [Entitic mass] 28.9 pg 27.0-32.0 [facility] MCHC (RBC) [Mass/Vol] 31.2 g/dL 32-36 [facility] Platelet mean volume (Bld) [Entitic vol] 10.1 fL 6.2-12.0 [facility] Platelets (Bld) [#/Vol] 187 10*3/uL 150-450 [facility] No Panel InformationOrdered By: Donato Sepulveda on 08-06-2023 Estimated GFR (MDRD) Amer 94 mL/min >60 [facility] Comment on above: GFR Calc Estimated GFR (MDRD) Non-Af Amer 77 mL/min >60 [facility] Comment on above: Non- GFR Calc RBC Auto (Bld) [#/Vol]Ordere d By: Donato Sepulveda on 08-06-2023 RBC (Bld) [#/Vol] 4.29 10*6/uL 4.2-5.4 [facility] Serum or plasma calcium serge urement (mass/volume)Ordered By: Donato Sepulveda on 08-06-2023 Calcium [Mass/Vol] 9.0 mg/dL 8.5-10.1 [facility] Serum or plasma creatinine m easurement (mass/volume)Ordered By: Donato Sepulveda on 08-06-2023 Creatinine [Mass/Vol] 0.76 mg/dL 0.55-1.02 [facility] Comment on above: The validity of the calculated GFR & GFRAA in patients over 70 years has not been determined. Clinical correlation is essential. Serum or plasma urea nitroge n measurement (mass/volume)Ordered By: Donato Sepulveda on 08-06-2023 Urea nitrogen [Mass/Vol] 11 mg/dL 7-18 [facility] Thin prep Papanicolaou smear with manual screeningOrdered By: Donato Sepulveda on 08-06-2023 Thin prep Papanicolaou smear with manual screening 3.4 g/dL 3.2-5.0 [facility] Thin prep Papanicolaou smear with manual screening 15 U/L 15-37 [facility] Thin prep Papanicolaou smear with manual screening 5 5-15 [facility] Basophil percentageOrdered B y: Donato Sepulveda on 06-11-2023 Bilirubin [Mass/Vol] 0.50 mg/dL 0.20-1.00 [facility] Comment on above: For patients on eltr ombopag therapy, use of Dimension [place]is TBIL is not recommended. Chloride [Moles/Vol] 105 mmol/L 98-107 [facility] Glucose [Mass/Vol] 92 mg/dL 74-106 [facility] Hemoglobin (Bld) [Mass/Vol] 12.1 g/dL 12.0-15.0 [facility] Potassium [Moles/Vol] 3.7 mmol/L 3.5-5.1 [facility] Protein [Mass/Vol] 6.9 g/dL 6.4-8.2 [facility] Sodium [Moles/Vol] 140 mmol/L 136-145 [facility] WBC (Bld) [#/Vol] 7.0 10*3/uL 4.4-11.0 [facility] Determination of erythrocyte mean corpuscular volume (MCV)Ordered By: Donato Sepulveda on 06-11-2023 MCV (RBC) [Entitic vol] 92.6 fL 81-99 [facility] Erythrocyte distribution wid th ratioOrdered By: Donato Sepulveda on 06-11-2023 Erythrocyte distribution width (RBC) [Ratio] 12.5 % 11.6-14.6 [facility] Erythrocyte distribution wid th standard deviationOrdered By: Donato Sepulveda on 06-11-2023 Erythrocyte distribution width (RBC) [Entitic vol] 42.4 fL 35.1-43.9 [facility] Hematocrit Auto (Bld) [Volum e fraction]Ordered By: Donato Sepulveda on 06-11-2023 Hematocrit (Bld) [Volume fraction] 38.6 % 37-47 [facility] - Chemistry and C hemistry - challengeOrdered By: Donato Sepulveda on 06-11-2023 Albumin/Globulin [Mass ratio] 0.8 {ratio} 0.9-2.4 [facility] ALP [Catalytic activity/Vol] 85 U/L 45-117 [facility] ALT [Catalytic activity/Vol] 18 U/L 13-56 [facility] CO2 [Moles/Vol] 29.0 mmol/L 21.0-32.0 [facility] Globulin (S) [Mass/Vol] 3.8 g/dL 2.2-4.2 [facility] Urea nitrogen/Creatinine [Mass ratio] 18.3 mg/mg 10-20 [facility] - Hematology and Cell countsOrdered By: Donato Sepulveda on 06-11-2023 MCH (RBC) [Entitic mass] 29.0 pg 27.0-32.0 [facility] MCHC (RBC) [Mass/Vol] 31.3 g/dL 32-36 [facility] Platelet mean volume (Bld) [Entitic vol] 11.0 fL 6.2-12.0 [facility] Platelets (Bld) [#/Vol] 190 10*3/uL 150-450 [facility] No Panel InformationOrdered By: Donato Sepulveda on 06-11-2023 Estimated GFR (MDRD) Amer 80 mL/min >60 [facility] Comment on above: GFR Calc Estimated GFR (MDRD) Non-Af Amer 66 mL/min >60 [facility] Comment on above: Non- GFR Calc Vitamin D 25-Hydroxy 29.3 ng/mL [facility] Comment on above: Vitamin D 25(OH) Sta tus Range Deficiency <20 ng/mL (50nmol/L) Insufficiency 20 - 30 ng/mL (50 - 75 nmol/L) Sufficiency 30 - 100 ng/mL (75 - 250 nmol/L) Toxicity >100 ng/mL (>250 nmol/L) RBC Auto (Bld) [#/Vol]Ordere d By: Donato Sepulveda on 06-11-2023 RBC (Bld) [#/Vol] 4.17 10*6/uL 4.2-5.4 [facility] Serum or plasma calcium serge urement (mass/volume)Ordered By: Donato Sepulveda on 06-11-2023 Calcium [Mass/Vol] 9.2 mg/dL 8.5-10.1 [facility] Serum or plasma creatinine m easurement (mass/volume)Ordered By: Donato Sepulveda on 06-11-2023 Creatinine [Mass/Vol] 0.87 mg/dL 0.55-1.02 [facility] Comment on above: The validity of the calculated GFR & GFRAA in patients over 70 years has not been determined. Clinical correlation is essential. Serum or plasma urea nitroge n measurement (mass/volume)Ordered By: Donato Sepulveda on 06-11-2023 Urea nitrogen [Mass/Vol] 16 mg/dL 7-18 [facility] Thin prep Papanicolaou smear with manual screeningOrdered By: Donato Sepulveda on 06-11-2023 Thin prep Papanicolaou smear with manual screening 3.1 g/dL 3.2-5.0 [facility] Thin prep Papanicolaou smear with manual screening 18 U/L 15-37 [facility] Thin prep Papanicolaou smear with manual screening 6 5-15 [facility] Whole blood hemoglobin A1c/t otal hemoglobin ratio (mass fraction)Ordered By: Donato Sepulveda on 06-11-2023 HbA1c (Bld) [Mass fraction] 8.7 % 3.8-5.6 [facility] Comment on above: Normal < 5.7 % Predi abetic 5.7 - 6.4 % Diabetic >or= 6.5 % Please note range changes. Absolute lymphocyte countOrd ered By: Colleen Walker on 06-05-2023 Lymphocytes Auto (Unsp spec) [#/Vol] 1.18 10*3/uL 0.83-4.51 [facility] Automated lymphocyte count a s percentage of total leukocytesOrdered By: Colleen Walker on 06-05-2023 Lymphocytes/100 WBC Auto (Unsp spec) 13.6 % 19-41 [facility] Basophil percentageOrdered B y: Colleen Walker on 06-05-2023 Basophil percentage 5-10 SEEN /hpf 0-5 [facility] Basophils/100 WBC (Bld) 0.6 % 0-1 [facility] Chloride [Moles/Vol] 104 mmol/L 98-107 [facility] Eosinophils/100 WBC (Bld) 2.0 % 0-5 [facility] Glucose [Mass/Vol] 150 mg/dL 74-106 [facility] Comment on above: Fasting Glucose resu lt greater than or equal to 126 mg/dL suggests DIABETES MELLITUS per A.D.A. criteria. Hemoglobin (Bld) [Mass/Vol] 13.2 g/dL 12.0-15.0 [facility] Monocytes/100 WBC (Bld) 7.2 % 0-10 [facility] Neutrophils (Bld) [#/Vol] 6.6 10*3/uL 2.0-7.7 [facility] Neutrophils/100 WBC (Bld) 76.3 % 47-70 [facility] Potassium [Moles/Vol] 3.6 mmol/L 3.5-5.1 [facility] Sodium [Moles/Vol] 137 mmol/L 136-145 [facility] WBC (Bld) [#/Vol] 8.7 10*3/uL 4.4-11.0 [facility] Bilirubin Test strip Ql (U)O rdered By: Colleen Walker on 06-05-2023 Bilirubin Ql (U) Negative Negative [facility] Determination of erythrocyte mean corpuscular volume (MCV)Ordered By: Colleen Walker on 06-05-2023 MCV (RBC) [Entitic vol] 92.9 fL 81-99 [facility] Erythrocyte distribution wid th ratioOrdered By: Colleen Walker on 06-05-2023 Erythrocyte distribution width (RBC) [Ratio] 12.6 % 11.6-14.6 [facility] Erythrocyte distribution wid th standard deviationOrdered By: Colleen Walker on 06-05-2023 Erythrocyte distribution width (RBC) [Entitic vol] 43.4 fL 35.1-43.9 [facility] Hematocrit Auto (Bld) [Volum e fraction]Ordered By: Colleen Walker on 06-05-2023 Hematocrit (Bld) [Volume fraction] 42.1 % 37-47 [facility] Immature granulocytes/100 WB C Auto (Bld)Ordered By: Colleen Walker on 06-05-2023 Immature granulocytes/100 WBC (Bld) 0.300 % 0.0-0.9 [facility] Comment on above: IG% - Immature Granu locytes (promyelocytes, myelocytes and metamyelocytes) > 1% indicates that a LEFT SHIFT is Present. Ketones Test strip Ql (U)Ord ered By: Colleen Walker on 06-05-2023 Ketones Ql (U) Negative Negative [facility] - Chemistry and C hemistry - challengeOrdered By: Colleen Walker on 06-05-2023 CO2 [Moles/Vol] 32.0 mmol/L 21.0-32.0 [facility] Urea nitrogen/Creatinine [Mass ratio] 21.9 mg/mg 10-20 [facility] - Hematology and Cell countsOrdered By: Colleen Walker on 06-05-2023 MCH (RBC) [Entitic mass] 29.1 pg 27.0-32.0 [facility] MCHC (RBC) [Mass/Vol] 31.4 g/dL 32-36 [facility] Nucleated RBC/100 WBC (Bld) [Ratio] 0 % 0-5 [facility] Platelets (Bld) [#/Vol] 180 10*3/uL 150-450 [facility] Mucus LM Ql (Urine sed)Order ed By: Colleen Walker on 06-05-2023 Mucus Ql (Urine sed) 0 SEEN /hpf [facility] Nitrite Test strip Ql (U)Ord ered By: Colleen Walker on 06-05-2023 Nitrite Ql (U) Negative Negative [facility] No Panel InformationOrdered By: Colleen Walker on 06-05-2023 Urine RBC 0 SEEN /hpf 0-5 [facility] Estimated Creatinine Clearance Calc 48.43 ml/min [facility] Estimated GFR (MDRD) Amer 92 mL/min >60 [facility] Comment on above: GFR Calc Estimated GFR (MDRD) Non-Af Amer 76 mL/min >60 [facility] Comment on above: Non- GFR Calc Platelet mean volume Jamie-Ec ker (Bld) [Entitic vol]Ordered By: Colleen Walker on 06-05-2023 Platelet mean volume (Bld) [Entitic vol] 10.3 fL 6.2-12.0 [facility] Protein Test strip Ql (U)Ord ered By: Colleen Walker on 06-05-2023 Protein Ql (U) 15 mg/dl Negative [facility] RBC Auto (Bld) [#/Vol]Ordere d By: Colleen Walker on 06-05-2023 RBC (Bld) [#/Vol] 4.53 10*6/uL 4.2-5.4 [facility] Serum or plasma calcium serge urement (mass/volume)Ordered By: Colleen Walker on 06-05-2023 Calcium [Mass/Vol] 9.3 mg/dL 8.5-10.1 [facility] Serum or plasma creatinine m easurement (mass/volume)Ordered By: Colleen Walker on 06-05-2023 Creatinine [Mass/Vol] 0.78 mg/dL 0.55-1.02 [facility] Comment on above: The validity of the calculated GFR & GFRAA in patients over 70 years has not been determined. Clinical correlation is essential. Serum or plasma urea nitroge n measurement (mass/volume)Ordered By: Colleen Walker on 06-05-2023 Urea nitrogen [Mass/Vol] 17 mg/dL 7-18 [facility] Squamous epithelial cells de tection in urine sediment by light microscopyOrdered By: Colleen Walker on 06-05-2023 Epithelial cells.squamous LM Ql (Urine sed) 5-10 SEEN /hpf 5-10 [facility] Thin prep Papanicolaou smear with manual screeningOrdered By: Colleen Walker on 06-05-2023 Thin prep Papanicolaou smear with manual screening 1 5-15 [facility] Urine blood detectionOrdered By: Colleen Walker on 06-05-2023 RBC Ql (U) 50 /ul Negative [facility] Urine clarityOrdered By: Yadira Walker on 06-05-2023 Clarity (U) Sl. Cloudy Clear [facility] Urine color determinationOrd ered By: Colleen Walker on 06-05-2023 Color (U) Yellow Yellow [facility] Urine glucose detectionOrder ed By: Colleen Walker on 06-05-2023 Glucose Ql (U) 1000 mg/dl Normal [facility] Urine leukocyte esterase det ection by dipstickOrdered By: Colleen Walker on 06-05-2023 Leukocyte esterase Test strip Ql (U) 100 /ul Negative [facility] Urine pHOrdered By: Colleen ma on 06-05-2023 pH (U) 6.0 [pH] 5.0 - 8.0 [facility] Urine sediment bacteria coun t by microscopy (number/high power field)Ordered By: Colleen Walker on 06-05-2023 Bacteria LM.HPF (Urine sed) [#/Area] 0 /[HPF] None Seen [facility] Urine specific gravity measu rementOrdered By: Colleen Wlaker on 06-05-2023 Specific gravity (U) [Rel density] 1.015 1.002-1.030 [facility] Urine urobilinogen measureme ntOrdered By: Colleen Walker on 06-05-2023 Urobilinogen Ql (U) Normal mg/dl Normal [facility] Absolute lymphocyte countOrd ered By: Donato Sepulveda on 04-23-2023 Lymphocytes Auto (Unsp spec) [#/Vol] 1.27 10*3/uL 0.83-4.51 [facility] Basophil percentageOrdered B y: Donato Sepulveda on 04-23-2023 Basophils/100 WBC (Bld) 0.3 % 0-1 [facility] Chloride [Moles/Vol] 106 mmol/L 98-107 [facility] Eosinophils/100 WBC (Bld) 4.6 % 0-5 [facility] Glucose [Mass/Vol] 96 mg/dL 74-106 [facility] Neutrophils (Bld) [#/Vol] 4.1 10*3/uL 2.0-7.7 [facility] Neutrophils/100 WBC (Bld) 67.6 % 47-70 [facility] Potassium [Moles/Vol] 3.7 mmol/L 3.5-5.1 [facility] Sodium [Moles/Vol] 141 mmol/L 136-145 [facility] WBC (Bld) [#/Vol] 6.1 10*3/uL 4.4-11.0 [facility] Blood erythrocytes count (nu mber/volume)Ordered By: Donato Sepulveda on 04-23-2023 RBC (Bld) [#/Vol] 4.10 10*6/uL 4.2-5.4 [facility] Blood hemoglobin measurement (mass/volume)Ordered By: Donato Sepulveda on 04-23-2023 Hemoglobin (Bld) [Mass/Vol] 12.0 g/dL 12.0-15.0 [facility] Blood lymphocytes/100 leukoc ytesOrdered By: Donato Sepulveda on 04-23-2023 Lymphocytes/100 WBC (Bld) 20.9 % 19-41 [facility] Blood monocytes/100 leukocyt esOrdered By: Donato Sepulveda on 04-23-2023 Monocytes/100 WBC (Bld) 6.1 % 0-10 [facility] Blood platelet mean volumeOr dered By: Donato Sepulveda on 04-23-2023 Platelet mean volume (Bld) [Entitic vol] 10.3 fL 6.2-12.0 [facility] Determination of erythrocyte mean corpuscular volume (MCV)Ordered By: Donato Sepulveda on 04-23-2023 MCV (RBC) [Entitic vol] 93.9 fL 81-99 [facility] Hematocrit Auto (Bld) [Volum e fraction]Ordered By: Donato Sepulveda on 04-23-2023 Hematocrit (Bld) [Volume fraction] 38.5 % 37-47 [facility] - Chemistry and C hemistry - challengeOrdered By: Donato Sepulveda on 04-23-2023 CO2 [Moles/Vol] 32.0 mmol/L 21.0-32.0 [facility] Urea nitrogen/Creatinine [Mass ratio] 21.8 mg/mg 10-20 [facility] - Hematology and Cell countsOrdered By: Donato Sepulveda on 04-23-2023 Erythrocyte distribution width (RBC) [Entitic vol] 44.9 fL 35.1-43.9 [facility] Erythrocyte distribution width (RBC) [Ratio] 13.0 % 11.6-14.6 [facility] Immature granulocytes/100 WBC (Bld) 0.500 % 0.0-0.9 [facility] Comment on above: IG% - Immature Granu locytes (promyelocytes, myelocytes and metamyelocytes) > 1% indicates that a LEFT SHIFT is Present. MCH (RBC) [Entitic mass] 29.3 pg 27.0-32.0 [facility] Nucleated RBC/100 WBC (Bld) [Ratio] 0 % 0-5 [facility] MCHC Auto (RBC) [Mass/Vol]Or dered By: Donato Sepulveda on 04-23-2023 MCHC (RBC) [Mass/Vol] 31.2 g/dL 32-36 [facility] No Panel InformationOrdered By: Donato Sepulveda on 04-23-2023 Estimated GFR (MDRD) Amer 106 mL/min >60 [facility] Comment on above: GFR Calc Estimated GFR (MDRD) Non-Af Amer 87 mL/min >60 [facility] Comment on above: Non- GFR Calc Platelets bldOrdered By: Sherwin Sepulveda on 04-23-2023 Platelets (Bld) [#/Vol] 207 10*3/uL 150-450 [facility] Serum or plasma calcium serge urement (mass/volume)Ordered By: Donato Sepulveda on 04-23-2023 Calcium [Mass/Vol] 9.3 mg/dL 8.5-10.1 [facility] Serum or plasma creatinine m easurement (mass/volume)Ordered By: Donato Sepulveda on 04-23-2023 Creatinine [Mass/Vol] 0.69 mg/dL 0.55-1.02 [facility] Comment on above: The validity of the calculated GFR & GFRAA in patients over 70 years has not been determined. Clinical correlation is essential. Serum or plasma urea nitroge n measurement (mass/volume)Ordered By: Donato Sepulveda on 04-23-2023 Urea nitrogen [Mass/Vol] 15 mg/dL 7- [facility] Thin prep Papanicolaou smear with manual screeningOrdered By: stusulphurchar Sepulveda on 04-23-2023 Thin prep Papanicolaou smear with manual screening 3 - [facility] Basophil percentageOrdered B y: Donato Sepulveda on 04-19-2023 Potassium [Moles/Vol] 4.3 mmol/L 3.5-5.1 [facility] Basophil percentageOrdered B y: Donato Sepulveda on 04-09-2023 Bilirubin [Mass/Vol] 0.30 mg/dL 0.20-1.00 [facility] Comment on above: For patients on eltr ombopag therapy, use of Dimension Sallis TBIL is not recommended. Chloride [Moles/Vol] 106 mmol/L 98-107 [facility] Glucose [Mass/Vol] 55 mg/dL 74-106 [facility] Potassium [Moles/Vol] 3.9 mmol/L 3.5-5.1 [facility] Protein [Mass/Vol] 7.2 g/dL 6.4-8.2 [facility] Sodium [Moles/Vol] 139 mmol/L 136-145 [facility] WBC (Bld) [#/Vol] 7.9 10*3/uL 4.4-11.0 [facility] Blood erythrocytes count (nu mber/volume)Ordered By: Donato Sepulveda on 04-09-2023 RBC (Bld) [#/Vol] 4.36 10*6/uL 4.2-5.4 [facility] Blood hemoglobin measurement (mass/volume)Ordered By: Donato Sepulveda on 04-09-2023 Hemoglobin (Bld) [Mass/Vol] 12.7 g/dL 12.0-15.0 [facility] Blood platelet mean volumeOr dered By: Donato Sepulveda on 04-09-2023 Platelet mean volume (Bld) [Entitic vol] 10.9 fL 6.2-12.0 [facility] Determination of erythrocyte mean corpuscular volume (MCV)Ordered By: Donato Sepulveda on 04-09-2023 MCV (RBC) [Entitic vol] 94.5 fL 81-99 [facility] Hematocrit Auto (Bld) [Volum e fraction]Ordered By: Donato Sepulveda on 04-09-2023 Hematocrit (Bld) [Volume fraction] 41.2 % 37-47 [facility] - Chemistry and C hemistry - challengeOrdered By: Donato Sepulveda on 04-09-2023 ALP [Catalytic activity/Vol] 90 U/L 45-117 [facility] ALT [Catalytic activity/Vol] 21 U/L 13-56 [facility] CO2 [Moles/Vol] 30.0 mmol/L 21.0-32.0 [facility] Globulin (S) [Mass/Vol] 3.7 g/dL 2.2-4.2 [facility] Urea nitrogen/Creatinine [Mass ratio] 22.9 mg/mg 10-20 [facility] - Hematology and Cell countsOrdered By: Donato Sepulveda on 04-09-2023 Erythrocyte distribution width (RBC) [Entitic vol] 44.3 fL 35.1-43.9 [facility] Erythrocyte distribution width (RBC) [Ratio] 12.8 % 11.6-14.6 [facility] MCH (RBC) [Entitic mass] 29.1 pg 27.0-32.0 [facility] MCHC Auto (RBC) [Mass/Vol]Or dered By: Donato Sepulveda on 04-09-2023 MCHC (RBC) [Mass/Vol] 30.8 g/dL 32-36 [facility] No Panel InformationOrdered By: Donato Sepulveda on 04-09-2023 Estimated GFR (MDRD) Amer 97 mL/min >60 [facility] Comment on above: GFR Calc Estimated GFR (MDRD) Non-Af Amer 80 mL/min >60 [facility] Comment on above: Non- GFR Calc Platelets bldOrdered By: Sherwin Sepulveda on 04-09-2023 Platelets (Bld) [#/Vol] 212 10*3/uL 150-450 [facility] Serum or plasma albumin serge urement (mass/volume)Ordered By: Donato Sepulveda on 04-09-2023 Albumin [Mass/Vol] 3.5 g/dL 3.2-5.0 [facility] Serum or plasma albumin/glob ulin mass ratioOrdered By: Donato Sepulveda on 04-09-2023 Albumin/Globulin [Mass ratio] 0.9 {ratio} 0.9-2.4 [facility] Serum or plasma calcium serge urement (mass/volume)Ordered By: Donato Sepulveda on 04-09-2023 Calcium [Mass/Vol] 9.4 mg/dL 8.5-10.1 [facility] Serum or plasma creatinine m easurement (mass/volume)Ordered By: Donato Sepulveda on 04-09-2023 Creatinine [Mass/Vol] 0.74 mg/dL 0.55-1.02 [facility] Comment on above: The validity of the calculated GFR & GFRAA in patients over 70 years has not been determined. Clinical correlation is essential. Serum or plasma urea nitroge n measurement (mass/volume)Ordered By: Donato Sepulveda on 04-09-2023 Urea nitrogen [Mass/Vol] 17 mg/dL 7-18 [facility] Thin prep Papanicolaou smear with manual screeningOrdered By: Donato Sepulveda on 04-09-2023 Thin prep Papanicolaou smear with manual screening 19 U/L 15-37 [facility] Thin prep Papanicolaou smear with manual screening 3 5-15 [facility] No Panel InformationOrdered By: Donato Sepulveda on 03-12-2023 Vitamin D 25-Hydroxy 34.4 ng/mL [facility] Comment on above: Vitamin D 25(OH) Sta tus Range Deficiency <20 ng/mL (50nmol/L) Insufficiency 20 - 30 ng/mL (50 - 75 nmol/L) Sufficiency 30 - 100 ng/mL (75 - 250 nmol/L) Toxicity >100 ng/mL (>250 nmol/L) Whole blood hemoglobin A1c/t otal hemoglobin ratio (mass fraction)Ordered By: Donato Sepulveda on 03-12-2023 HbA1c (Bld) [Mass fraction] 7.4 % 3.8-5.6 [facility] Comment on above: Normal < 5.7 % Predi abetic 5.7 - 6.4 % Diabetic >or= 6.5 % Please note range changes. Basophil percentageOrdered B y: Donato Sepulveda on 02-05-2023 Bilirubin [Mass/Vol] 0.50 mg/dL 0.20-1.00 [facility] Comment on above: For patients on eltr ombopag therapy, use of Dimension [place]all[place] TBIL is not recommended. Chloride [Moles/Vol] 105 mmol/L 98-107 [facility] Glucose [Mass/Vol] 106 mg/dL 74-106 [facility] Comment on above: Fasting Glucose resu lt from 100 to 125 mg/dL suggests IMPAIRED HOMEOSTASIS per A.D.A. criteria. Potassium [Moles/Vol] 4.2 mmol/L 3.5-5.1 [facility] Protein [Mass/Vol] 6.9 g/dL 6.4-8.2 [facility] Sodium [Moles/Vol] 142 mmol/L 136-145 [facility] WBC (Bld) [#/Vol] 6.0 10*3/uL 4.4-11.0 [facility] Blood erythrocytes count (nu mber/volume)Ordered By: Donato Sepulveda on 02-05-2023 RBC (Bld) [#/Vol] 4.18 10*6/uL 4.2-5.4 [facility] Blood hemoglobin measurement (mass/volume)Ordered By: Donato Sepulveda on 02-05-2023 Hemoglobin (Bld) [Mass/Vol] 12.1 g/dL 12.0-15.0 [facility] Blood platelet mean volumeOr dered By: Donato Sepulveda on 02-05-2023 Platelet mean volume (Bld) [Entitic vol] 10.7 fL 6.2-12.0 [facility] Determination of erythrocyte mean corpuscular volume (MCV)Ordered By: Donato Sepulveda on 02-05-2023 MCV (RBC) [Entitic vol] 95.2 fL 81-99 [facility] Direct bilirubinOrdered By: Donato Sepulveda on 02-05-2023 Bilirubin.direct [Mass/Vol] 0.15 mg/dL 0.00-0.30 [facility] Hematocrit Auto (Bld) [Volum e fraction]Ordered By: Donato Sepulveda on 02-05-2023 Hematocrit (Bld) [Volume fraction] 39.8 % 37-47 [facility] - Chemistry and C hemistry - challengeOrdered By: Donato Sepulveda on 02-05-2023 ALP [Catalytic activity/Vol] 73 U/L 45-117 [facility] ALT [Catalytic activity/Vol] 20 U/L 13-56 [facility] CO2 [Moles/Vol] 32.0 mmol/L 21.0-32.0 [facility] Globulin (S) [Mass/Vol] 3.5 g/dL 2.2-4.2 [facility] Urea nitrogen/Creatinine [Mass ratio] 20.8 mg/mg 10-20 [facility] - Hematology and Cell countsOrdered By: Donato Sepulveda on 02-05-2023 Erythrocyte distribution width (RBC) [Entitic vol] 46.1 fL 35.1-43.9 [facility] Erythrocyte distribution width (RBC) [Ratio] 13.1 % 11.6-14.6 [facility] MCH (RBC) [Entitic mass] 28.9 pg 27.0-32.0 [facility] MCHC Auto (RBC) [Mass/Vol]Or dered By: Donato Sepulveda on 02-05-2023 MCHC (RBC) [Mass/Vol] 30.4 g/dL 32-36 [facility] No Panel InformationOrdered By: Donato Sepulveda on 02-05-2023 Estimated GFR (MDRD) Amer 93 mL/min >60 [facility] Comment on above: GFR Calc Estimated GFR (MDRD) Non-Af Amer 76 mL/min >60 [facility] Comment on above: Non- GFR Calc Platelets bldOrdered By: Sherwin Sepulveda on 02-05-2023 Platelets (Bld) [#/Vol] 183 10*3/uL 150-450 [facility] Serum or plasma albumin serge urement (mass/volume)Ordered By: Donato Sepulveda on 02-05-2023 Albumin [Mass/Vol] 3.4 g/dL 3.2-5.0 [facility] Serum or plasma albumin/glob ulin mass ratioOrdered By: Donato Sepulveda on 02-05-2023 Albumin/Globulin [Mass ratio] 1.0 {ratio} 0.9-2.4 [facility] Serum or plasma calcium serge urement (mass/volume)Ordered By: Donato Sepulveda on 02-05-2023 Calcium [Mass/Vol] 9.4 mg/dL 8.5-10.1 [facility] Serum or plasma creatinine m easurement (mass/volume)Ordered By: Donato Sepulveda on 02-05-2023 Creatinine [Mass/Vol] 0.77 mg/dL 0.55-1.02 [facility] Comment on above: The validity of the calculated GFR & GFRAA in patients over 70 years has not been determined. Clinical correlation is essential. Serum or plasma urea nitroge n measurement (mass/volume)Ordered By: Donato Sepulveda on 02-05-2023 Urea nitrogen [Mass/Vol] 16 mg/dL 7-18 [facility] Thin prep Papanicolaou smear with manual screeningOrdered By: Donato Sepulveda on 02-05-2023 Thin prep Papanicolaou smear with manual screening 18 U/L 15-37 [facility] Thin prep Papanicolaou smear with manual screening 5 5-15 [facility] Whole blood hemoglobin A1c/t otal hemoglobin ratio (mass fraction)Ordered By: Donato Sepulveda on 02-05-2023 HbA1c (Bld) [Mass fraction] 7.0 % 3.8-5.6 [facility] Comment on above: Normal < 5.7 % Predi abetic 5.7 - 6.4 % Diabetic >or= 6.5 % Please note range changes. Basophil percentageOrdered B y: Donato Sepulveda on 12-07-2022 Potassium [Moles/Vol] 4.7 mmol/L 3.5-5.1 [facility] Basophil percentageOrdered B y: Donato Sepulveda on 12-04-2022 Bilirubin [Mass/Vol] 0.30 mg/dL 0.20-1.00 [facility] Comment on above: For patients on eltr ombopag therapy, use of Dimension [place]all[place] TBIL is not recommended. Chloride [Moles/Vol] 102 mmol/L 98-107 [facility] Glucose [Mass/Vol] 219 mg/dL 74-106 [facility] Comment on above: Glucose result great er than or equal to 200 mg/dLsuggests DIABETES MELLITUS per A.D.A. criteria. Potassium [Moles/Vol] 2.9 mmol/L 3.5-5.1 [facility] Protein [Mass/Vol] 6.6 g/dL 6.4-8.2 [facility] Sodium [Moles/Vol] 137 mmol/L 136-145 [facility] WBC (Bld) [#/Vol] 4.6 10*3/uL 4.4-11.0 [facility] Blood erythrocytes count (nu mber/volume)Ordered By: Donato Sepulveda on 12-04-2022 RBC (Bld) [#/Vol] 4.22 10*6/uL 4.2-5.4 [facility] Blood hemoglobin measurement (mass/volume)Ordered By: Donato Sepulveda on 12-04-2022 Hemoglobin (Bld) [Mass/Vol] 12.4 g/dL 12.0-15.0 [facility] Blood platelet mean volumeOr dered By: Donato Sepulveda on 12-04-2022 Platelet mean volume (Bld) [Entitic vol] 10.7 fL 6.2-12.0 [facility] Determination of erythrocyte mean corpuscular volume (MCV)Ordered By: Donato Sepulveda on 12-04-2022 MCV (RBC) [Entitic vol] 93.8 fL 81-99 [facility] Hematocrit Auto (Bld) [Volum e fraction]Ordered By: Donato Sepulveda on 12-04-2022 Hematocrit (Bld) [Volume fraction] 39.6 % 37-47 [facility] - Chemistry and C hemistry - challengeOrdered By: Donato Sepulveda on 12-04-2022 ALP [Catalytic activity/Vol] 85 U/L 45-117 [facility] ALT [Catalytic activity/Vol] 27 U/L 13-56 [facility] CO2 [Moles/Vol] 33.0 mmol/L 21.0-32.0 [facility] Globulin (S) [Mass/Vol] 3.6 g/dL 2.2-4.2 [facility] Urea nitrogen/Creatinine [Mass ratio] 13.7 mg/mg 10-20 [facility] - Hematology and Cell countsOrdered By: Donato Sepulveda on 12-04-2022 Erythrocyte distribution width (RBC) [Entitic vol] 43.8 fL 35.1-43.9 [facility] Erythrocyte distribution width (RBC) [Ratio] 12.8 % 11.6-14.6 [facility] MCH (RBC) [Entitic mass] 29.4 pg 27.0-32.0 [facility] MCHC Auto (RBC) [Mass/Vol]Or dered By: Donato Sepulveda on 12-04-2022 MCHC (RBC) [Mass/Vol] 31.3 g/dL 32-36 [facility] No Panel InformationOrdered By: Donato Sepulveda on 12-04-2022 Estimated GFR (MDRD) Amer 80 mL/min >60 [facility] Comment on above: GFR Calc Estimated GFR (MDRD) Non-Af Amer 66 mL/min >60 [facility] Comment on above: Non- GFR Calc Vitamin D 25-Hydroxy 40.9 ng/mL [facility] Comment on above: Vitamin D 25(OH) Sta tus Range Deficiency <20 ng/mL (50nmol/L) Insufficiency 20 - 30 ng/mL (50 - 75 nmol/L) Sufficiency 30 - 100 ng/mL (75 - 250 nmol/L) Toxicity >100 ng/mL (>250 nmol/L) Platelets bldOrdered By: Sherwin Sepulveda on 12-04-2022 Platelets (Bld) [#/Vol] 167 10*3/uL 150-450 [facility] Serum or plasma albumin serge urement (mass/volume)Ordered By: Donato Sepulveda on 12-04-2022 Albumin [Mass/Vol] 3.0 g/dL 3.2-5.0 [facility] Serum or plasma albumin/glob ulin mass ratioOrdered By: Donato Sepulveda on 12-04-2022 Albumin/Globulin [Mass ratio] 0.8 {ratio} 0.9-2.4 [facility] Serum or plasma calcium serge urement (mass/volume)Ordered By: Donato Sepulveda on 12-04-2022 Calcium [Mass/Vol] 8.6 mg/dL 8.5-10.1 [facility] Serum or plasma creatinine m easurement (mass/volume)Ordered By: Donato Sepulveda on 12-04-2022 Creatinine [Mass/Vol] 0.88 mg/dL 0.55-1.02 [facility] Comment on above: The validity of the calculated GFR & GFRAA in patients over 70 years has not been determined. Clinical correlation is essential. Serum or plasma urea nitroge n measurement (mass/volume)Ordered By: Donato Sepulveda on 12-04-2022 Urea nitrogen [Mass/Vol] 12 mg/dL 7-18 [facility] Thin prep Papanicolaou smear with manual screeningOrdered By: Donato Sepulveda on 12-04-2022 Thin prep Papanicolaou smear with manual screening 31 U/L 15-37 [facility] Thin prep Papanicolaou smear with manual screening 2 5-15 [facility] Whole blood hemoglobin A1c/t otal hemoglobin ratio (mass fraction)Ordered By: Donato Sepulveda on 12-04-2022 HbA1c (Bld) [Mass fraction] 8.2 % 3.8-5.6 [facility] Comment on above: Normal < 5.7 % Predi abetic 5.7 - 6.4 % Diabetic >or= 6.5 % Please note range changes. Basophil percentageOrdered B y: Donato Sepulveda on 11-21-2022 Potassium [Moles/Vol] 3.3 mmol/L 3.5-5.1 [facility] Basophil percentageOrdered B y: Donato Sepulveda on 10-09-2022 Bilirubin [Mass/Vol] 0.40 mg/dL 0.20-1.00 [facility] Comment on above: For patients on eltr ombopag therapy, use of Dimension [place] TBIL is not recommended. Chloride [Moles/Vol] 104 mmol/L 98-107 [facility] Glucose [Mass/Vol] 135 mg/dL 74-106 [facility] Comment on above: Fasting Glucose resu lt greater than or equal to 126 mg/dL suggests DIABETES MELLITUS per A.D.A. criteria. Potassium [Moles/Vol] 3.1 mmol/L 3.5-5.1 [facility] Protein [Mass/Vol] 6.5 g/dL 6.4-8.2 [facility] Sodium [Moles/Vol] 141 mmol/L 136-145 [facility] WBC (Bld) [#/Vol] 6.8 10*3/uL 4.4-11.0 [facility] Blood erythrocytes count (nu mber/volume)Ordered By: Donato Sepulveda on 10-09-2022 RBC (Bld) [#/Vol] 3.95 10*6/uL 4.2-5.4 [facility] Blood hemoglobin measurement (mass/volume)Ordered By: Donato Sepulveda on 10-09-2022 Hemoglobin (Bld) [Mass/Vol] 11.7 g/dL 12.0-15.0 [facility] Blood platelet mean volumeOr dered By: Donato Sepulveda on 10-09-2022 Platelet mean volume (Bld) [Entitic vol] 10.7 fL 6.2-12.0 [facility] Determination of erythrocyte mean corpuscular volume (MCV)Ordered By: Donato Sepulveda on 10-09-2022 MCV (RBC) [Entitic vol] 94.4 fL 81-99 [facility] Hematocrit Auto (Bld) [Volum e fraction]Ordered By: Donato Sepulveda on 10-09-2022 Hematocrit (Bld) [Volume fraction] 37.3 % 37-47 [facility] - Chemistry and C hemistry - challengeOrdered By: Donato Sepulveda on 10-09-2022 ALP [Catalytic activity/Vol] 61 U/L 45-117 [facility] ALT [Catalytic activity/Vol] 16 U/L 13-56 [facility] CO2 [Moles/Vol] 34.0 mmol/L 21.0-32.0 [facility] Globulin (S) [Mass/Vol] 3.3 g/dL 2.2-4.2 [facility] Urea nitrogen/Creatinine [Mass ratio] 13.5 mg/mg 10-20 [facility] - Hematology and Cell countsOrdered By: Donato Sepulveda on 10-09-2022 Erythrocyte distribution width (RBC) [Entitic vol] 44.6 fL 35.1-43.9 [facility] Erythrocyte distribution width (RBC) [Ratio] 12.8 % 11.6-14.6 [facility] MCH (RBC) [Entitic mass] 29.6 pg 27.0-32.0 [facility] MCHC Auto (RBC) [Mass/Vol]Or dered By: Donato Sepulveda on 10-09-2022 MCHC (RBC) [Mass/Vol] 31.4 g/dL 32-36 [facility] No Panel InformationOrdered By: Donato Sepulveda on 10-09-2022 Estimated GFR (MDRD) Amer 97 mL/min >60 [facility] Comment on above: GFR Calc Estimated GFR (MDRD) Non-Af Amer 80 mL/min >60 [facility] Comment on above: Non- GFR Calc Platelets bldOrdered By: Sherwin Sepulveda on 10-09-2022 Platelets (Bld) [#/Vol] 157 10*3/uL 150-450 [facility] Serum or plasma albumin serge urement (mass/volume)Ordered By: Donato Sepulveda on 10-09-2022 Albumin [Mass/Vol] 3.2 g/dL 3.2-5.0 [facility] Serum or plasma albumin/glob ulin mass ratioOrdered By: Donato Sepulveda on 10-09-2022 Albumin/Globulin [Mass ratio] 1.0 {ratio} 0.9-2.4 [facility] Serum or plasma calcium serge urement (mass/volume)Ordered By: Donato Sepulveda on 10-09-2022 Calcium [Mass/Vol] 9.1 mg/dL 8.5-10.1 [facility] Serum or plasma creatinine m easurement (mass/volume)Ordered By: Donato Sepulveda on 10-09-2022 Creatinine [Mass/Vol] 0.74 mg/dL 0.55-1.02 [facility] Comment on above: The validity of the calculated GFR & GFRAA in patients over 70 years has not been determined. Clinical correlation is essential. Serum or plasma urea nitroge n measurement (mass/volume)Ordered By: Donato Sepulveda on 10-09-2022 Urea nitrogen [Mass/Vol] 10 mg/dL 7-18 [facility] Thin prep Papanicolaou smear with manual screeningOrdered By: Donato Sepulveda on 10-09-2022 Thin prep Papanicolaou smear with manual screening 15 U/L 15-37 [facility] Thin prep Papanicolaou smear with manual screening 3 5-15 [facility] Basophil percentageOrdered B y: Basilio Flores on 10-05-2022 Cholesterol [Mass/Vol] 146 mg/dL <200 [facility] Comment on above: <200 mg/dL Desirable 200-240 mg/dL Borderline >240 mg/dL High Risk Triglyceride [Mass/Vol] 83 mg/dL <199 [facility] Comment on above: The drugs N-Acetylcy steine and Metamizole may falsely depress this assay.Serum Triglycerides Reference Interval Normal <150 mg/dL Borderline high 150 - 199 mg/dL High 200 - 499 mg/dL Very High > or = 500 mg/dL Serum or plasma cholesterol in HDL measurement (mass/volume)Ordered By: Basilio Flores on 10-05-2022 Cholesterol in HDL [Mass/Vol] 69 mg/dL >40 [facility] Comment on above: The drugs N-Acetylcy steine and Metamizole may falsely depress this assay. Reference Range HDL <40 mg/dL Low HDL Cholesterol HDL >or= 60 mg/dL High HDL Cholesterol Serum or plasma cholesterol in VLDL measurement (mass/volume)Ordered By: Basilio Flores on 10-05-2022 Cholesterol in VLDL [Mass/Vol] 17 mg/dL 5-40 [facility] Serum or plasma low density lipoprotein (LDL) cholesterol measurement (mass/volume)Ordered By: Basilio Flores on 10-05-2022 Cholesterol in LDL [Mass/Vol] 60 mg/dL 0-130 [facility] Basophil percentageOrdered B y: Donato Sepulveda on 10-04-2022 Cholesterol [Mass/Vol] 154 mg/dL <200 [facility] Comment on above: <200 mg/dL Desirable 200-240 mg/dL Borderline >240 mg/dL High Risk Triglyceride [Mass/Vol] 72 mg/dL <199 [facility] Comment on above: The drugs N-Acetylcy steine and Metamizole may falsely depress this assay.Serum Triglycerides Reference Interval Normal <150 mg/dL Borderline high 150 - 199 mg/dL High 200 - 499 mg/dL Very High > or = 500 mg/dL Serum or plasma cholesterol in HDL measurement (mass/volume)Ordered By: Donato Sepulveda on 10-04-2022 Cholesterol in HDL [Mass/Vol] 70 mg/dL >40 [facility] Comment on above: The drugs N-Acetylcy steine and Metamizole may falsely depress this assay. Reference Range HDL <40 mg/dL Low HDL Cholesterol HDL >or= 60 mg/dL High HDL Cholesterol Serum or plasma cholesterol in VLDL measurement (mass/volume)Ordered By: Donato Sepulveda on 10-04-2022 Cholesterol in VLDL [Mass/Vol] 14 mg/dL 5-40 [facility] Serum or plasma low density lipoprotein (LDL) cholesterol measurement (mass/volume)Ordered By: Donato Sepulveda on 10-04-2022 Cholesterol in LDL [Mass/Vol] 70 mg/dL 0-130 [facility] No Panel InformationOrdered By: Basilio Flores on 09-04-2022 Vitamin D 25-Hydroxy 54.3 ng/mL [facility] Comment on above: Vitamin D 25(OH) Sta tus Range Deficiency <20 ng/mL (50nmol/L) Insufficiency 20 - 30 ng/mL (50 - 75 nmol/L) Sufficiency 30 - 100 ng/mL (75 - 250 nmol/L) Toxicity >100 ng/mL (>250 nmol/L) Whole blood hemoglobin A1c/t otal hemoglobin ratio (mass fraction)Ordered By: Basilio Flores on 09-04-2022 HbA1c (Bld) [Mass fraction] 10.9 % 3.8-5.6 [facility] Comment on above: Normal < 5.7 % Predi abetic 5.7 - 6.4 % Diabetic >or= 6.5 % Please note range changes. Basophil percentageOrdered B y: Donato Sepulveda on 08-07-2022 Bilirubin [Mass/Vol] 0.60 mg/dL 0.20-1.00 [facility] Comment on above: For patients on eltr ombopag therapy, use of Dimension [place] TBIL is not recommended. Chloride [Moles/Vol] 98 mmol/L 98-107 [facility] Glucose [Mass/Vol] 432 mg/dL 74-106 [facility] Comment on above: Glucose result great er than or equal to 200 mg/dLsuggests DIABETES MELLITUS per A.D.A. criteria. Potassium [Moles/Vol] 3.5 mmol/L 3.5-5.1 [facility] Protein [Mass/Vol] 6.8 g/dL 6.4-8.2 [facility] Sodium [Moles/Vol] 136 mmol/L 136-145 [facility] WBC (Bld) [#/Vol] 4.7 10*3/uL 4.4-11.0 [facility] Blood erythrocytes count (nu mber/volume)Ordered By: Donato Sepulveda on 08-07-2022 RBC (Bld) [#/Vol] 4.19 10*6/uL 4.2-5.4 [facility] Blood hemoglobin measurement (mass/volume)Ordered By: Donato Sepulveda on 08-07-2022 Hemoglobin (Bld) [Mass/Vol] 12.2 g/dL 12.0-15.0 [facility] Blood platelet mean volumeOr dered By: Donato Sepulveda on 08-07-2022 Platelet mean volume (Bld) [Entitic vol] 10.5 fL 6.2-12.0 [facility] Determination of erythrocyte mean corpuscular volume (MCV)Ordered By: Donato Sepulveda on 08-07-2022 MCV (RBC) [Entitic vol] 92.8 fL 81-99 [facility] Hematocrit Auto (Bld) [Volum e fraction]Ordered By: Donato Sepulveda on 08-07-2022 Hematocrit (Bld) [Volume fraction] 38.9 % 37-47 [facility] Laboratory - Chemistry and C hemistry - challengeOrdered By: [facility] on 08-07-2022 ALP [Catalytic activity/Vol] 70 U/L 45-117 [facility] ALT [Catalytic activity/Vol] 19 U/L 13-56 [facility] CO2 [Moles/Vol] 36.0 mmol/L 21.0-32.0 [facility] Globulin (S) [Mass/Vol] 3.4 g/dL 2.2-4.2 [facility] Magnesium [Mass/Vol] 1.8 mg/dL 1.6-2.6 [facility] Urea nitrogen/Creatinine [Mass ratio] 15.1 mg/mg 10-20 [facility] Laboratory - Hematology and Cell countsOrdered By: Raulsulphurchar Sepulveda on 08-07-2022 Erythrocyte distribution width (RBC) [Entitic vol] 44.1 fL 35.1-43.9 [facility] Erythrocyte distribution width (RBC) [Ratio] 13.0 % 11.6-14.6 [facility] MCH (RBC) [Entitic mass] 29.1 pg 27.0-32.0 [facility] MCHC Auto (RBC) [Mass/Vol]Or dered By: Donato Sepulveda on 08-07-2022 MCHC (RBC) [Mass/Vol] 31.4 g/dL 32-36 [facility] No Panel InformationOrdered By: Donato Sepulveda on 08-07-2022 Estimated GFR (MDRD) Amer 64 mL/min >60 [facility] Comment on above: GFR Calc Estimated GFR (MDRD) Non-Af Amer 53 mL/min >60 [facility] Comment on above: Non- GFR Calc Platelets bldOrdered By: Sherwin Sepulveda on 08-07-2022 Platelets (Bld) [#/Vol] 165 10*3/uL 150-450 [facility] Serum or plasma albumin serge urement (mass/volume)Ordered By: Donato Sepulveda on 08-07-2022 Albumin [Mass/Vol] 3.4 g/dL 3.2-5.0 [facility] Serum or plasma albumin/glob ulin mass ratioOrdered By: Donato Sepulveda on 08-07-2022 Albumin/Globulin [Mass ratio] 1.0 {ratio} 0.9-2.4 [facility] Serum or plasma calcium serge urement (mass/volume)Ordered By: Donato Sepulveda on 08-07-2022 Calcium [Mass/Vol] 9.7 mg/dL 8.5-10.1 [facility] Serum or plasma creatinine m easurement (mass/volume)Ordered By: Donato Sepulveda on 08-07-2022 Creatinine [Mass/Vol] 1.06 mg/dL 0.55-1.02 [facility] Comment on above: The validity of the calculated GFR & GFRAA in patients over 70 years has not been determined. Clinical correlation is essential. Serum or plasma urea nitroge n measurement (mass/volume)Ordered By: Donato Sepulveda on 08-07-2022 Urea nitrogen [Mass/Vol] 16 mg/dL 7-18 [facility] Thin prep Papanicolaou smear with manual screeningOrdered By: Donato Sepulveda on 08-07-2022 Thin prep Papanicolaou smear with manual screening 15 U/L 15-37 [facility] Thin prep Papanicolaou smear with manual screening 2 5-15 [facility] Basophil percentageOrdered B y: Basilio Flores on 06-12-2022 Bilirubin [Mass/Vol] 1.10 mg/dL 0.20-1.00 [facility] Comment on above: For patients on eltr ombopag therapy, use of Dimension Sallis TBIL is not recommended. Chloride [Moles/Vol] 99 mmol/L 98-107 [facility] Glucose [Mass/Vol] 163 mg/dL 74-106 [facility] Comment on above: Fasting Glucose resu lt greater than or equal to 126 mg/dL suggests DIABETES MELLITUS per A.D.A. criteria. Potassium [Moles/Vol] 3.4 mmol/L 3.5-5.1 [facility] Protein [Mass/Vol] 7.4 g/dL 6.4-8.2 [facility] Sodium [Moles/Vol] 141 mmol/L 136-145 [facility] WBC (Bld) [#/Vol] 8.0 10*3/uL 4.4-11.0 [facility] Blood erythrocytes count (nu mber/volume)Ordered By: Basilio Flores on 06-12-2022 RBC (Bld) [#/Vol] 4.53 10*6/uL 4.2-5.4 [facility] Blood hemoglobin measurement (mass/volume)Ordered By: Basilio Flores on 06-12-2022 Hemoglobin (Bld) [Mass/Vol] 13.2 g/dL 12.0-15.0 [facility] Blood platelet mean volumeOr dered By: Basilio Flores on 06-12-2022 Platelet mean volume (Bld) [Entitic vol] 10.4 fL 6.2-12.0 [facility] Determination of erythrocyte mean corpuscular volume (MCV)Ordered By: Basilio Flores on 06-12-2022 MCV (RBC) [Entitic vol] 90.5 fL 81-99 [facility] Hematocrit Auto (Bld) [Volum e fraction]Ordered By: Basilio Flores on 06-12-2022 Hematocrit (Bld) [Volume fraction] 41.0 % 37-47 [facility] Laboratory - Chemistry and C hemistry - challengeOrdered By: Basilio Flores on 06-12-2022 ALP [Catalytic activity/Vol] 88 U/L 45-117 [facility] ALT [Catalytic activity/Vol] 20 U/L 13-56 [facility] CO2 [Moles/Vol] 34.0 mmol/L 21.0-32.0 [facility] Globulin (S) [Mass/Vol] 3.7 g/dL 2.2-4.2 [facility] Urea nitrogen/Creatinine [Mass ratio] 15.1 mg/mg 10-20 [facility] Laboratory - Hematology and Cell countsOrdered By: Basilio Flores on 06-12-2022 Erythrocyte distribution width (RBC) [Entitic vol] 42.0 fL 35.1-43.9 [facility] Erythrocyte distribution width (RBC) [Ratio] 12.8 % 11.6-14.6 [facility] MCH (RBC) [Entitic mass] 29.1 pg 27.0-32.0 [facility] MCHC Auto (RBC) [Mass/Vol]Or dered By: Basilio Flores on 06-12-2022 MCHC (RBC) [Mass/Vol] 32.2 g/dL 32-36 [facility] No Panel InformationOrdered By: Basilio Flores on 06-12-2022 Estimated GFR (MDRD) Amer 82 mL/min >60 [facility] Comment on above: GFR Calc Estimated GFR (MDRD) Non-Af Amer 67 mL/min >60 [facility] Comment on above: Non- GFR Calc Vitamin D 25-Hydroxy 49.1 ng/mL [facility] Comment on above: Vitamin D 25(OH) Sta tus Range Deficiency <20 ng/mL (50nmol/L) Insufficiency 20 - 30 ng/mL (50 - 75 nmol/L) Sufficiency 30 - 100 ng/mL (75 - 250 nmol/L) Toxicity >100 ng/mL (>250 nmol/L) Platelets bldOrdered By: August Flores on 06-12-2022 Platelets (Bld) [#/Vol] 188 10*3/uL 150-450 [facility] Serum or plasma albumin serge urement (mass/volume)Ordered By: Basilio Flores on 06-12-2022 Albumin [Mass/Vol] 3.7 g/dL 3.2-5.0 [facility] Serum or plasma albumin/glob ulin mass ratioOrdered By: Basilio Flores on 06-12-2022 Albumin/Globulin [Mass ratio] 1.0 {ratio} 0.9-2.4 [facility] Serum or plasma calcium serge urement (mass/volume)Ordered By: Basilio Flores on 06-12-2022 Calcium [Mass/Vol] 9.5 mg/dL 8.5-10.1 [facility] Serum or plasma creatinine m easurement (mass/volume)Ordered By: Basilio Flores on 06-12-2022 Creatinine [Mass/Vol] 0.86 mg/dL 0.55-1.02 [facility] Comment on above: The validity of the calculated GFR & GFRAA in patients over 70 years has not been determined. Clinical correlation is essential. Serum or plasma urea nitroge n measurement (mass/volume)Ordered By: Basilio Flores on 06-12-2022 Urea nitrogen [Mass/Vol] 13 mg/dL 7-18 [facility] Thin prep Papanicolaou smear with manual screeningOrdered By: Basilio Flores on 06-12-2022 Thin prep Papanicolaou smear with manual screening 18 U/L 15-37 [facility] Thin prep Papanicolaou smear with manual screening 8 5-15 [facility] Whole blood hemoglobin A1c/t otal hemoglobin ratio (mass fraction)Ordered By: Basilio Flores on 06-12-2022 HbA1c (Bld) [Mass fraction] 9.2 % 3.8-5.6 [facility] Comment on above: Normal < 5.7 % Predi abetic 5.7 - 6.4 % Diabetic >or= 6.5 % Please note range changes. Basophil percentageOrdered B y: Donato Sepulveda on 04-17-2022 Chloride [Moles/Vol] 97 mmol/L 98-107 [facility] Glucose [Mass/Vol] 328 mg/dL 74-106 [facility] Comment on above: Glucose result great er than or equal to 200 mg/dLsuggests DIABETES MELLITUS per A.D.A. criteria. Potassium [Moles/Vol] 3.6 mmol/L 3.5-5.1 [facility] Sodium [Moles/Vol] 137 mmol/L 136-145 [facility] Laboratory - Chemistry and C hemistry - challengeOrdered By: Donato Sepulveda on 04-17-2022 CO2 [Moles/Vol] 36.0 mmol/L 21.0-32.0 [facility] Urea nitrogen/Creatinine [Mass ratio] 13.7 mg/mg 10-20 [facility] No Panel InformationOrdered By: Donato Sepulveda on 04-17-2022 Estimated GFR (MDRD) Amer 73 mL/min >60 [facility] Comment on above: GFR Calc Estimated GFR (MDRD) Non-Af Amer 60 mL/min >60 [facility] Comment on above: Non- GFR Calc Serum or plasma calcium serge urement (mass/volume)Ordered By: Donato Sepulveda on 04-17-2022 Calcium [Mass/Vol] 9.5 mg/dL 8.5-10.1 [facility] Serum or plasma creatinine m easurement (mass/volume)Ordered By: Donato Sepulveda on 04-17-2022 Creatinine [Mass/Vol] 0.95 mg/dL 0.55-1.02 [facility] Comment on above: The validity of the calculated GFR & GFRAA in patients over 70 years has not been determined. Clinical correlation is essential. Serum or plasma urea nitroge n measurement (mass/volume)Ordered By: Donato Sepulveda on 04-17-2022 Urea nitrogen [Mass/Vol] 13 mg/dL 7-18 [facility] Thin prep Papanicolaou smear with manual screeningOrdered By: stusulphurchar Sepluveda on 04-17-2022 Thin prep Papanicolaou smear with manual screening 4 5-15 [facility] Basophil percentageOrdered B y: Donato Sepulveda on 04-13-2022 Potassium [Moles/Vol] 3.2 mmol/L 3.5-5.1 [facility] Basophil percentageOrdered B y: Basilio Flores on 04-10-2022 Bilirubin [Mass/Vol] 0.50 mg/dL 0.20-1.00 [facility] Comment on above: For patients on eltr ombopag therapy, use of Dimension [employer]all[employer] TBIL is not recommended. Chloride [Moles/Vol] 97 mmol/L 98-107 [facility] Glucose [Mass/Vol] 366 mg/dL 74-106 [facility] Comment on above: Glucose result great er than or equal to 200 mg/dLsuggests DIABETES MELLITUS per A.D.A. criteria. Potassium [Moles/Vol] 3.1 mmol/L 3.5-5.1 [facility] Protein [Mass/Vol] 7.3 g/dL 6.4-8.2 [facility] Sodium [Moles/Vol] 136 mmol/L 136-145 [facility] WBC (Bld) [#/Vol] 6.4 10*3/uL 4.4-11.0 [facility] Blood erythrocytes count (nu mber/volume)Ordered By: Basilio Flores on 04-10-2022 RBC (Bld) [#/Vol] 4.33 10*6/uL 4.2-5.4 [facility] Blood hemoglobin measurement (mass/volume)Ordered By: Basilio Flores on 04-10-2022 Hemoglobin (Bld) [Mass/Vol] 12.7 g/dL 12.0-15.0 [facility] Blood platelet mean volumeOr dered By: Basilio Flores on 04-10-2022 Platelet mean volume (Bld) [Entitic vol] 10.8 fL 6.2-12.0 [facility] Determination of erythrocyte mean corpuscular volume (MCV)Ordered By: Basilio Flores on 04-10-2022 MCV (RBC) [Entitic vol] 91.5 fL 81-99 [facility] Hematocrit Auto (Bld) [Volum e fraction]Ordered By: Basilio Flores on 04-10-2022 Hematocrit (Bld) [Volume fraction] 39.6 % 37-47 [facility] - Chemistry and C hemistry - challengeOrdered By: Basilio Flores on 04-10-2022 ALP [Catalytic activity/Vol] 90 U/L 45-117 [facility] ALT [Catalytic activity/Vol] 24 U/L 13-56 [facility] CO2 [Moles/Vol] 37.0 mmol/L 21.0-32.0 [facility] Globulin (S) [Mass/Vol] 4.0 g/dL 2.2-4.2 [facility] Urea nitrogen/Creatinine [Mass ratio] 14.5 mg/mg 10-20 [facility] - Hematology and Cell countsOrdered By: Basilio Flores on 04-10-2022 Erythrocyte distribution width (RBC) [Entitic vol] 42.4 fL 35.1-43.9 [facility] Erythrocyte distribution width (RBC) [Ratio] 12.6 % 11.6-14.6 [facility] MCH (RBC) [Entitic mass] 29.3 pg 27.0-32.0 [facility] [Mass/Vol]Or dered By: Basilio Flores on 04-10-2022 MCHC (RBC) [Mass/Vol] 32.1 g/dL 32-36 [facility] No Panel InformationOrdered By: Basilio Flores on 04-10-2022 Estimated GFR (MDRD) Amer 78 mL/min >60 [facility] Comment on above: GFR Calc Estimated GFR (MDRD) Non-Af Amer 64 mL/min >60 [facility] Comment on above: Non- GFR Calc Platelets bldOrdered By: August Flores on 04-10-2022 Platelets (Bld) [#/Vol] 216 10*3/uL 150-450 [facility] Serum or plasma albumin serge urement (mass/volume)Ordered By: Basilio Flores on 04-10-2022 Albumin [Mass/Vol] 3.3 g/dL 3.2-5.0 [facility] Serum or plasma albumin/glob ulin mass ratioOrdered By: Basilio Flores on 04-10-2022 Albumin/Globulin [Mass ratio] 0.8 {ratio} 0.9-2.4 [facility] Serum or plasma calcium serge urement (mass/volume)Ordered By: Basilio Flores on 04-10-2022 Calcium [Mass/Vol] 9.1 mg/dL 8.5-10.1 [facility] Serum or plasma creatinine m easurement (mass/volume)Ordered By: Baislio Flroes on 04-10-2022 Creatinine [Mass/Vol] 0.90 mg/dL 0.55-1.02 [facility] Comment on above: The validity of the calculated GFR & GFRAA in patients over 70 years has not been determined. Clinical correlation is essential. Serum or plasma urea nitroge n measurement (mass/volume)Ordered By: Basilio Flores on 04-10-2022 Urea nitrogen [Mass/Vol] 13 mg/dL 7-18 [facility] Thin prep Papanicolaou smear with manual screeningOrdered By: Basilio Flores on 04-10-2022 Thin prep Papanicolaou smear with manual screening 22 U/L 15-37 [facility] Thin prep Papanicolaou smear with manual screening 2 5-15 [facility] No Panel InformationOrdered By: Basilio Flores on 03-06-2022 Vitamin D 25-Hydroxy 57.1 ng/mL [facility] Comment on above: Vitamin D 25(OH) Sta tus Range Deficiency <20 ng/mL (50nmol/L) Insufficiency 20 - 30 ng/mL (50 - 75 nmol/L) Sufficiency 30 - 100 ng/mL (75 - 250 nmol/L) Toxicity >100 ng/mL (>250 nmol/L) Whole blood hemoglobin A1c/t otal hemoglobin ratio (mass fraction)Ordered By: Basilio Flores on 03-06-2022 HbA1c (Bld) [Mass fraction] 7.4 % 3.8-5.6 [facility] Comment on above: Normal < 5.7 % Predi abetic 5.7 - 6.4 % Diabetic >or= 6.5 % Please note range changes. Basophil percentageon 2021 Bilirubin [Mass/Vol] 0.90 mg/dL 0.20-1.00 [facility] Work Phone: Comment on above: For patients on eltr ombopag therapy, use of Dimension [employer] TBIL is not recommended. Chloride [Moles/Vol] 102 mmol/L 98-107 [facility] Work Phone: Glucose [Mass/Vol] 198 mg/dL 74-106 [facility] Work Phone: Comment on above: Fasting Glucose resu lt greater than or equal to 126 mg/dL suggests DIABETES MELLITUS per A.D.A. criteria. Potassium [Moles/Vol] 4.3 mmol/L 3.5-5.1 [facility] Work Phone: Protein [Mass/Vol] 7.3 g/dL 6.4-8.2 [facility] Work Phone: Sodium [Moles/Vol] 140 mmol/L 136-145 [facility] Work Phone: WBC (Bld) [#/Vol] 5.8 10*3/uL 4.4-11.0 [facility] Work Phone: Blood erythrocytes count (nu mber/volume)on 02-06-2022 RBC (Bld) [#/Vol] 4.46 10*6/uL 4.2-5.4 [facility] Work Phone: Blood hemoglobin measurement (mass/volume)on 02-06-2022 Hemoglobin (Bld) [Mass/Vol] 13.1 g/dL 12.0-15.0 [facility] Work Phone: Blood platelet mean volumeon 02-06-2022 Platelet mean volume (Bld) [Entitic vol] 10.5 fL 6.2-12.0 [facility] Work Phone: Determination of erythrocyte mean corpuscular volume (MCV)on 02-06-2022 MCV (RBC) [Entitic vol] 93.3 fL 81-99 [facility] Work Phone: Hematocrit Auto (Bld) [Volum e fraction]on 02-06-2022 Hematocrit (Bld) [Volume fraction] 41.6 % 37-47 [facility] Work Phone: Laboratory - Chemistry and C hemistry - challengeon 02-06-2022 ALP [Catalytic activity/Vol] 96 U/L 45-117 [facility] Work Phone: ALT [Catalytic activity/Vol] 22 U/L 13-56 [facility] Work Phone: CO2 [Moles/Vol] 32.0 mmol/L 21.0-32.0 [facility] Work Phone: Globulin (S) [Mass/Vol] 3.7 g/dL 2.2-4.2 [facility] Work Phone: Urea nitrogen/Creatinine [Mass ratio] 20.2 mg/mg 10-20 [facility] Work Phone: Laboratory - Hematology and Cell countson 02-06-2022 Erythrocyte distribution width (RBC) [Entitic vol] 46.5 fL 35.1-43.9 [facility] Work Phone: Erythrocyte distribution width (RBC) [Ratio] 13.5 % 11.6-14.6 [facility] Work Phone: MCH (RBC) [Entitic mass] 29.4 pg 27.0-32.0 [facility] Work Phone: MCHC Auto (RBC) [Mass/Vol]on 02-06-2022 MCHC (RBC) [Mass/Vol] 31.5 g/dL 32-36 [facility] Work Phone: No Panel Informationon 02-06 Estimated GFR (MDRD) Amer 66 mL/min >60 [facility] Work Phone: Comment on above: GFR Calc Estimated GFR (MDRD) Non-Af Amer 54 mL/min >60 [facility] Work Phone: Comment on above: Non- GFR Calc Platelets bldon 02-06-2022 Platelets (Bld) [#/Vol] 176 10*3/uL 150-450 [facility] Work Phone: Serum or plasma albumin serge urement (mass/volume)on 02-06-2022 Albumin [Mass/Vol] 3.6 g/dL 3.2-5.0 [facility] Work Phone: Serum or plasma albumin/glob ulin mass ratioon 02-06-2022 Albumin/Globulin [Mass ratio] 1.0 {ratio} 0.9-2.4 [facility] Work Phone: Serum or plasma calcium serge urement (mass/volume)on 02-06-2022 Calcium [Mass/Vol] 9.5 mg/dL 8.5-10.1 [facility] Work Phone: Serum or plasma creatinine m easurement (mass/volume)on 02-06-2022 Creatinine [Mass/Vol] 1.04 mg/dL 0.55-1.02 [facility] Work Phone: Comment on above: The validity of the calculated GFR & GFRAA in patients over 70 years has not been determined. Clinical correlation is essential. Serum or plasma urea nitroge n measurement (mass/volume)on 02-06-2022 Urea nitrogen [Mass/Vol] 21 mg/dL 7-18 [facility] Work Phone: Thin prep Papanicolaou smear with manual screeningon 02-06-2022 Thin prep Papanicolaou smear with manual screening 20 U/L 15-37 [facility] Work Phone: Thin prep Papanicolaou smear with manual screening 6 5-15 [facility] Work Phone: Basophil percentageon 2021 Bilirubin [Mass/Vol] 0.50 mg/dL 0.20-1.00 [facility] Work Phone: Comment on above: For patients on eltr ombopag therapy, use of Dimension [employer] TBIL is not recommended. Chloride [Moles/Vol] 106 mmol/L 98-107 [facility] Work Phone: Glucose [Mass/Vol] 149 mg/dL 74-106 [facility] Work Phone: Comment on above: Fasting Glucose resu lt greater than or equal to 126 mg/dL suggests DIABETES MELLITUS per A.D.A. criteria. Potassium [Moles/Vol] 3.6 mmol/L 3.5-5.1 [facility] Work Phone: Protein [Mass/Vol] 6.7 g/dL 6.4-8.2 [facility] Work Phone: Sodium [Moles/Vol] 142 mmol/L 136-145 [facility] Work Phone: WBC (Bld) [#/Vol] 6.0 10*3/uL 4.4-11.0 [facility] Work Phone: Blood erythrocytes count (nu mber/volume)on 12-05-2021 RBC (Bld) [#/Vol] 4.12 10*6/uL 4.2-5.4 [facility] Work Phone: Blood hemoglobin measurement (mass/volume)on 12-05-2021 Hemoglobin (Bld) [Mass/Vol] 11.9 g/dL 12.0-15.0 [facility] Work Phone: Blood platelet mean volumeon 12-05-2021 Platelet mean volume (Bld) [Entitic vol] 10.9 fL 6.2-12.0 [facility] Work Phone: Determination of erythrocyte mean corpuscular volume (MCV)on 12-05-2021 MCV (RBC) [Entitic vol] 92.5 fL 81-99 [facility] Work Phone: Hematocrit Auto (Bld) [Volum e fraction]on 12-05-2021 Hematocrit (Bld) [Volume fraction] 38.1 % 37-47 [facility] Work Phone: Laboratory - Chemistry and C hemistry - challengeon 12-05-2021 ALP [Catalytic activity/Vol] 86 U/L 45-117 [facility] Work Phone: ALT [Catalytic activity/Vol] 17 U/L 13-56 [facility] Work Phone: CO2 [Moles/Vol] 34.0 mmol/L 21.0-32.0 [facility] Work Phone: Globulin (S) [Mass/Vol] 3.6 g/dL 2.2-4.2 [facility] Work Phone: Urea nitrogen/Creatinine [Mass ratio] 14.5 mg/mg 10-20 [facility] Work Phone: Laboratory - Hematology and Cell countson 12-05-2021 Erythrocyte distribution width (RBC) [Entitic vol] 45.8 fL 35.1-43.9 [facility] Work Phone: Erythrocyte distribution width (RBC) [Ratio] 13.4 % 11.6-14.6 [facility] Work Phone: MCH (RBC) [Entitic mass] 28.9 pg 27.0-32.0 [facility] Work Phone: MCHC Auto (RBC) [Mass/Vol]on 12-05-2021 MCHC (RBC) [Mass/Vol] 31.2 g/dL 32-36 [facility] Work Phone: No Panel Informationon 12-05 Estimated GFR (MDRD) Amer 78 mL/min >60 [facility] Work Phone: Comment on above: GFR Calc Estimated GFR (MDRD) Non-Af Amer 64 mL/min >60 [facility] Work Phone: Comment on above: Non- GFR Calc Vitamin D 25-Hydroxy 90.8 ng/mL [facility] Work Phone: Comment on above: Vitamin D 25(OH) Sta tus Range Deficiency <20 ng/mL (50nmol/L) Insufficiency 20 - 30 ng/mL (50 - 75 nmol/L) Sufficiency 30 - 100 ng/mL (75 - 250 nmol/L) Toxicity >100 ng/mL (>250 nmol/L) Platelets bldon 12-05-2021 Platelets (Bld) [#/Vol] 162 10*3/uL 150-450 [facility] Work Phone: Serum or plasma albumin serge urement (mass/volume)on 12-05-2021 Albumin [Mass/Vol] 3.1 g/dL 3.2-5.0 [facility] Work Phone: Serum or plasma albumin/glob ulin mass ratioon 12-05-2021 Albumin/Globulin [Mass ratio] 0.9 {ratio} 0.9-2.4 [facility] Work Phone: Serum or plasma calcium serge urement (mass/volume)on 12-05-2021 Calcium [Mass/Vol] 9.3 mg/dL 8.5-10.1 [facility] Work Phone: Serum or plasma creatinine m easurement (mass/volume)on 12-05-2021 Creatinine [Mass/Vol] 0.90 mg/dL 0.55-1.02 [facility] Work Phone: Comment on above: The validity of the calculated GFR & GFRAA in patients over 70 years has not been determined. Clinical correlation is essential. Serum or plasma urea nitroge n measurement (mass/volume)on 12-05-2021 Urea nitrogen [Mass/Vol] 13 mg/dL 7-18 [facility] Work Phone: Thin prep Papanicolaou smear with manual screeningon 12-05-2021 Thin prep Papanicolaou smear with manual screening 18 U/L 15-37 [facility] Work Phone: Thin prep Papanicolaou smear with manual screening 2 5-15 [facility] Work Phone: Whole blood hemoglobin A1c/t otal hemoglobin ratio (mass fraction)on 12-05-2021 HbA1c (Bld) [Mass fraction] 7.4 % 3.8-5.6 [facility] Work Phone: Comment on above: Normal < 5.7 % Predi abetic 5.7 - 6.4 % Diabetic >or= 6.5 % Please note range changes. Whole blood hemoglobin A1c/t otal hemoglobin ratio (mass fraction)on 11-14-2021 HbA1c (Bld) [Mass fraction] 8.5 % 3.8-5.6 [facility] Work Phone: Comment on above: Normal < 5.7 % Predi abetic 5.7 - 6.4 % Diabetic >or= 6.5 % Please note range changes. Whole blood hemoglobin A1c/t otal hemoglobin ratio (mass fraction)on 10-17-2021 HbA1c (Bld) [Mass fraction] 7.7 % 3.8-5.6 [facility] Work Phone: Comment on above: Normal < 5.7 % Predi abetic 5.7 - 6.4 % Diabetic >or= 6.5 % Please note range changes. Basophil percentageon 2021 Bilirubin [Mass/Vol] 0.40 mg/dL 0.20-1.00 [facility] Work Phone: Comment on above: For patients on eltr ombopag therapy, use of Dimension [employer] TBIL is not recommended. Chloride [Moles/Vol] 105 mmol/L 98-107 [facility] Work Phone: Cholesterol [Mass/Vol] 130 mg/dL <200 [facility] Work Phone: Comment on above: <200 mg/dL Desirable 200-240 mg/dL Borderline >240 mg/dL High Risk Glucose [Mass/Vol] 127 mg/dL 74-106 [facility] Work Phone: Comment on above: Fasting Glucose resu lt greater than or equal to 126 mg/dL suggests DIABETES MELLITUS per A.D.A. criteria. Potassium [Moles/Vol] 3.7 mmol/L 3.5-5.1 [facility] Work Phone: Protein [Mass/Vol] 6.4 g/dL 6.4-8.2 [facility] [facility] Work Phone: Sodium [Moles/Vol] 145 mmol/L 136-145 [facility] Work Phone: Triglyceride [Mass/Vol] 77 mg/dL <199 [facility] Work Phone: Comment on above: The drugs N-Acetylcy steine and Metamizole may falsely depress this assay.Serum Triglycerides Reference Interval Normal <150 mg/dL Borderline high 150 - 199 mg/dL High 200 - 499 mg/dL Very High > or = 500 mg/dL WBC (Bld) [#/Vol] 5.7 10*3/uL 4.4-11.0 [facility] Work Phone: Blood erythrocytes count (nu mber/volume)on 10-05-2021 RBC (Bld) [#/Vol] 4.01 10*6/uL 4.2-5.4 [facility] Work Phone: Blood hemoglobin measurement (mass/volume)on 10-05-2021 Hemoglobin (Bld) [Mass/Vol] 11.5 g/dL 12.0-15.0 [facility] Work Phone: Blood platelet mean volumeon 10-05-2021 Platelet mean volume (Bld) [Entitic vol] 11.3 fL 6.2-12.0 [facility] Work Phone: Determination of erythrocyte mean corpuscular volume (MCV)on 10-05-2021 MCV (RBC) [Entitic vol] 93.3 fL 81-99 [facility] Work Phone: Hematocrit Auto (Bld) [Volum e fraction]on 10-05-2021 Hematocrit (Bld) [Volume fraction] 37.4 % 37-47 [facility] Work Phone: Laboratory - Chemistry and C hemistry - challengeon 10-05-2021 ALP [Catalytic activity/Vol] 80 U/L 45-117 [facility] Work Phone: ALT [Catalytic activity/Vol] 16 U/L 13-56 [facility] Work Phone: CO2 [Moles/Vol] 29.0 mmol/L 21.0-32.0 [facility] Work Phone: Globulin (S) [Mass/Vol] 3.1 g/dL 2.2-4.2 [facility] Work Phone: Urea nitrogen/Creatinine [Mass ratio] 17.1 mg/mg 10-20 [facility] Work Phone: Laboratory - Hematology and Cell countson 10-05-2021 Erythrocyte distribution width (RBC) [Entitic vol] 44.9 fL 35.1-43.9 [facility] Work Phone: Erythrocyte distribution width (RBC) [Ratio] 13.2 % 11.6-14.6 [facility] Work Phone: MCH (RBC) [Entitic mass] 28.7 pg 27.0-32.0 [facility] Work Phone: MCHC Auto (RBC) [Mass/Vol]on 10-05-2021 MCHC (RBC) [Mass/Vol] 30.7 g/dL 32-36 [facility] Work Phone: No Panel Informationon 10-05 Estimated GFR (MDRD) Amer 65 mL/min >60 [facility] Work Phone: Comment on above: GFR Calc Estimated GFR (MDRD) Non-Af Amer 54 mL/min >60 [facility] Work Phone: Comment on above: Non- GFR Calc Platelets bldon 10-05-2021 Platelets (Bld) [#/Vol] 164 10*3/uL 150-450 [facility] Work Phone: Serum or plasma albumin serge urement (mass/volume)on 10-05-2021 Albumin [Mass/Vol] 3.3 g/dL 3.2-5.0 [facility] Work Phone: Serum or plasma albumin/glob ulin mass ratioon 10-05-2021 Albumin/Globulin [Mass ratio] 1.1 {ratio} 0.9-2.4 [facility] Work Phone: Serum or plasma calcium serge urement (mass/volume)on 10-05-2021 Calcium [Mass/Vol] 8.8 mg/dL 8.5-10.1 [facility] Work Phone: Serum or plasma cholesterol in HDL measurement (mass/volume)on 10-05-2021 Cholesterol in HDL [Mass/Vol] 47 mg/dL >40 [facility] Work Phone: Comment on above: The drugs N-Acetylcy steine and Metamizole may falsely depress this assay. Reference Range HDL <40 mg/dL Low HDL Cholesterol HDL >or= 60 mg/dL High HDL Cholesterol Serum or plasma cholesterol in VLDL measurement (mass/volume)on 10-05-2021 Cholesterol in VLDL [Mass/Vol] 15 mg/dL 5-40 [facility] Work Phone: Serum or plasma creatinine m easurement (mass/volume)on 10-05-2021 Creatinine [Mass/Vol] 1.05 mg/dL 0.55-1.02 [facility] Work Phone: Comment on above: The validity of the calculated GFR & GFRAA in patients over 70 years has not been determined. Clinical correlation is essential. Serum or plasma low density lipoprotein (LDL) cholesterol measurement (mass/volume)on 10-05-2021 Cholesterol in LDL [Mass/Vol] 68 mg/dL 0-130 [facility] Work Phone: Serum or plasma urea nitroge n measurement (mass/volume)on 10-05-2021 Urea nitrogen [Mass/Vol] 18 mg/dL 7-18 [facility] Work Phone: Thin prep Papanicolaou smear with manual screeningon 10-05-2021 Thin prep Papanicolaou smear with manual screening 18 U/L 15-37 [facility] Work Phone: Thin prep Papanicolaou smear with manual screening 11 5-15 [facility] Work Phone: No Panel Informationon 09-05 Vitamin D 25-Hydroxy 44.4 ng/mL [facility] Work Phone: Comment on above: Vitamin D 25(OH) Sta tus Range Deficiency <20 ng/mL (50nmol/L) Insufficiency 20 - 30 ng/mL (50 - 75 nmol/L) Sufficiency 30 - 100 ng/mL (75 - 250 nmol/L) Toxicity >100 ng/mL (>250 nmol/L) Whole blood hemoglobin A1c/t otal hemoglobin ratio (mass fraction)on 09-05-2021 HbA1c (Bld) [Mass fraction] 8.3 % 3.8-5.6 [facility] Work Phone: Comment on above: Normal < 5.7 % Predi abetic 5.7 - 6.4 % Diabetic >or= 6.5 % Please note range changes. Basophil percentageon 2021 Bilirubin [Mass/Vol] 0.40 mg/dL 0.20-1.00 [facility] Work Phone: Comment on above: For patients on eltr ombopag therapy, use of Dimension Sallis TBIL is not recommended. Chloride [Moles/Vol] 102 mmol/L 98-107 [facility] Work Phone: Glucose [Mass/Vol] 358 mg/dL 74-106 [facility] Work Phone: Comment on above: Glucose result great er than or equal to 200 mg/dLsuggests DIABETES MELLITUS per A.D.A. criteria. Potassium [Moles/Vol] 3.3 mmol/L 3.5-5.1 [facility]: Protein [Mass/Vol] 6.8 g/dL 6.4-8.2 [facility] Work Phone: Sodium [Moles/Vol] 139 mmol/L 136-145 [facility] Work Phone: WBC (Bld) [#/Vol] 5.6 10*3/uL 4.4-11.0 [facility] Work Phone: Blood erythrocytes count (nu mber/volume)on 08-08-2021 RBC (Bld) [#/Vol] 3.99 10*6/uL 4.2-5.4 [facility] Work Phone: Blood hemoglobin measurement (mass/volume)on 08-08-2021 Hemoglobin (Bld) [Mass/Vol] 11.5 g/dL 12.0-15.0 [facility] Work Phone: Blood platelet mean volumeon 08-08-2021 Platelet mean volume (Bld) [Entitic vol] 11.0 fL 6.2-12.0 [facility] Work Phone: Determination of erythrocyte mean corpuscular volume (MCV)on 08-08-2021 MCV (RBC) [Entitic vol] 91.7 fL 81-99 [facility] Work Phone: Hematocrit Auto (Bld) [Volum e fraction]on 08-08-2021 Hematocrit (Bld) [Volume fraction] 36.6 % 37-47 [facility] Work Phone: Laboratory - Chemistry and C hemistry - challengeon 08-08-2021 ALP [Catalytic activity/Vol] 85 U/L 45-117 [facility] Work Phone: ALT [Catalytic activity/Vol] 17 U/L 13-56 [facility] Work Phone: CO2 [Moles/Vol] 33.0 mmol/L 21.0-32.0 [facility] Work Phone: Globulin (S) [Mass/Vol] 3.8 g/dL 2.2-4.2 [facility] Work Phone: Urea nitrogen/Creatinine [Mass ratio] 12.7 mg/mg 10-20 [facility] Work Phone: Laboratory - Hematology and Cell countson 08-08-2021 Erythrocyte distribution width (RBC) [Entitic vol] 43.0 fL 35.1-43.9 [facility] Work Phone: Erythrocyte distribution width (RBC) [Ratio] 12.7 % 11.6-14.6 [facility] Work Phone: MCH (RBC) [Entitic mass] 28.8 pg 27.0-32.0 [facility] Work Phone: MCHC Auto (RBC) [Mass/Vol]on 08-08-2021 MCHC (RBC) [Mass/Vol] 31.4 g/dL 32-36 [facility] Work Phone: No Panel Informationon 08-08 Estimated GFR (MDRD) Amer 67 mL/min >60 [facility] Work Phone: Comment on above: GFR Calc Estimated GFR (MDRD) Non-Af Amer 56 mL/min >60 [facility] Work Phone: Comment on above: Non- GFR Calc Platelets bldon 08-08-2021 Platelets (Bld) [#/Vol] 155 10*3/uL 150-450 [facility] Work Phone: Serum or plasma albumin serge urement (mass/volume)on 08-08-2021 Albumin [Mass/Vol] 3.0 g/dL 3.2-5.0 [facility] Work Phone: Serum or plasma albumin/glob ulin mass ratioon 08-08-2021 Albumin/Globulin [Mass ratio] 0.8 {ratio} 0.9-2.4 [facility] Work Phone: Serum or plasma calcium serge urement (mass/volume)on 08-08-2021 Calcium [Mass/Vol] 9.3 mg/dL 8.5-10.1 [facility] Work Phone: Serum or plasma creatinine m easurement (mass/volume)on 08-08-2021 Creatinine [Mass/Vol] 1.02 mg/dL 0.55-1.02 [facility] Work Phone: Comment on above: The validity of the calculated GFR & GFRAA in patients over 70 years has not been determined. Clinical correlation is essential. Serum or plasma urea nitroge n measurement (mass/volume)on 08-08-2021 Urea nitrogen [Mass/Vol] 13 mg/dL 7-18 [facility] Work Phone: Thin prep Papanicolaou smear with manual screeningon 08-08-2021 Thin prep Papanicolaou smear with manual screening 15 U/L 15-37 [facility] Work Phone: Thin prep Papanicolaou smear with manual screening 4 5-15 [facility] Work Phone: Basophil percentageon 2021 Basophil percentage 3.6 mg/dL 2.5-4.9 [facility] Work Phone: Chloride [Moles/Vol] 99 mmol/L 98-107 [facility] Work Phone: Glucose [Mass/Vol] 311 mg/dL 74-106 [facility] Work Phone: Comment on above: Glucose result great er than or equal to 200 mg/dLsuggests DIABETES MELLITUS per A.D.A. criteria. Potassium [Moles/Vol] 3.7 mmol/L 3.5-5.1 [facility] Work Phone: Sodium [Moles/Vol] 139 mmol/L 136-145 [facility] Work Phone: WBC (Bld) [#/Vol] 6.1 10*3/uL 4.4-11.0 [facility] Work Phone: Blood erythrocytes count (nu mber/volume)on 07-12-2021 RBC (Bld) [#/Vol] 4.40 10*6/uL 4.2-5.4 [facility] Work Phone: Blood hemoglobin measurement (mass/volume)on 07-12-2021 Hemoglobin (Bld) [Mass/Vol] 12.5 g/dL 12.0-15.0 [facility] Work Phone: Blood platelet mean volumeon 07-12-2021 Platelet mean volume (Bld) [Entitic vol] 11.0 fL 6.2-12.0 [facility] Work Phone: Determination of erythrocyte mean corpuscular volume (MCV)on 07-12-2021 MCV (RBC) [Entitic vol] 90.7 fL 81-99 [facility] Work Phone: Hematocrit Auto (Bld) [Volum e fraction]on 07-12-2021 Hematocrit (Bld) [Volume fraction] 39.9 % 37-47 [facility] Work Phone: Laboratory - Chemistry and C hemistry - challengeon 07-12-2021 CO2 [Moles/Vol] 34.0 mmol/L 21.0-32.0 [facility] Work Phone: Urea nitrogen/Creatinine [Mass ratio] 14.2 mg/mg 10-20 [facility] Work Phone: Laboratory - Hematology and Cell countson 07-12-2021 Erythrocyte distribution width (RBC) [Entitic vol] 42.3 fL 35.1-43.9 [facility] Work Phone: Erythrocyte distribution width (RBC) [Ratio] 12.8 % 11.6-14.6 [facility] Work Phone: MCH (RBC) [Entitic mass] 28.4 pg 27.0-32.0 [facility] Work Phone: MCHC Auto (RBC) [Mass/Vol]on 07-12-2021 MCHC (RBC) [Mass/Vol] 31.3 g/dL 32-36 [facility] Work Phone: No Panel Informationon 07-12 Estimated GFR (MDRD) Amer 64 mL/min >60 [facility] Work Phone: Comment on above: GFR Calc Estimated GFR (MDRD) Non-Af Amer 53 mL/min >60 [facility] Work Phone: Comment on above: Non- GFR Calc Parathyroid Hormone (Intact) 38.0 pg/mL 18.4-80.1 [facility] Work Phone: Vitamin D 25-Hydroxy 10.0 ng/mL [facility] Work Phone: Comment on above: Vitamin D 25(OH) Sta tus Range Deficiency <20 ng/mL (50nmol/L) Insufficiency 20 - 30 ng/mL (50 - 75 nmol/L) Sufficiency 30 - 100 ng/mL (75 - 250 nmol/L) Toxicity >100 ng/mL (>250 nmol/L) Platelets bldon 07-12-2021 Platelets (Bld) [#/Vol] 188 10*3/uL 150-450 [facility] Work Phone: Serum or plasma albumin serge urement (mass/volume)on 07-12-2021 Albumin [Mass/Vol] 3.2 g/dL 3.2-5.0 [facility] Work Phone: Serum or plasma calcium serge urement (mass/volume)on 07-12-2021 Calcium [Mass/Vol] 9.8 mg/dL 8.5-10.1 [facility] Work Phone: Serum or plasma creatinine m easurement (mass/volume)on 07-12-2021 Creatinine [Mass/Vol] 1.06 mg/dL 0.55-1.02 [facility] Work Phone: Comment on above: The validity of the calculated GFR & GFRAA in patients over 70 years has not been determined. Clinical correlation is essential. Serum or plasma urea nitroge n measurement (mass/volume)on 07-12-2021 Urea nitrogen [Mass/Vol] 15 mg/dL 7-18 [facility] Work Phone: Clinical Summary: HMSPatient IDon 03-16-2019 OOP [facility] Work Phone: Office Visit: New - visi t with practice, Rm: PT2on 03-16-2019 NEGATED: Highlighted rowMRI (magnetic resonance imaging) history of the cervical spine on 11/24/2018 at [facility] Work Phone: NEGATED: Highlighted rowTobacco smoking status NHIS Tobacco smoking status NHIS [facility] Work Phone: Vital Signs Date Time Vital Sign Value Performing Clinician Facility 08-24-2024 09:43-0400 Body temperature 98.9 [degF] Dr. Basilio Flores MD Work Phone: 1(298)624-879800 [place] [address] 08-24-2024 09:43-0400 Diastolic blood pressure 69 mm[Hg] Dr. Basilio Flores MD Work Phone: 1(728)396-020400 [place] [address] 08-24-2024 09:43-0400 Heart rate 72 /min Dr. Basilio Flores MD Work Phone: 9(356)661-001000 [place] [address] 08-24-2024 09:43-0400 Respiratory rate 16 /min Dr. Basilio Flores MD Work Phone: 9(906)223-549500 [place] [address] 08-24-2024 09:43-0400 SaO2% (BldA) [Mass fraction] 98 % Dr. Basilio Flores MD Work Phone: 5(666)443-930500 [place] [address] 08-24-2024 09:43-0400 Systolic blood pressure 149 mm[Hg] Dr. Basilio Flores MD Work Phone: 2(807)275-714300 [place] [address] 08-24-2024 08:47-0400 Body height 157.[address] Basilio Flores MD Work Phone: [facility] 08-24-2024 08:47-0400 Body mass index (BMI) [Ratio] 22.1 kg/m2 Dr. Basilio Flores MD Work Phone: 9(928)843-903400 [place] [address] 08-24-2024 08:47-0400 Body weight [address] Basilio Flores MD Work Phone: 0(428)393-484288 [place] [address] 06-08-2023 09:40-0500 Diastolic blood pressure 77 mm[Hg] Dr. Basilio Flores Work Phone: 7(209)124-076188 [place] [address] 06-08-2023 09:40-0500 Heart rate 82 /min Dr. Basilio Flores Work Phone: 9(229)682-108988 [place] [address] 06-08-2023 09:40-0500 Respiratory rate 16 /min Dr. Basilio Flores Work Phone: 0(098)907-758088 [place] [address] 06-08-2023 09:40-0500 SaO2% (BldA) [Mass fraction] 98 % Dr. Basilio Flores Work Phone: 5(535)384-723988 [place] [address] 06-08-2023 09:40-0500 Systolic blood pressure 135 mm[Hg] Dr. Basilio Flores Work Phone: 5(729)846-656788 [place] [address] 06-08-2023 08:04-0500 Body height 157.[address] Basilio Flores Work Phone: 6(050)860-710288 [place] [address] 06-08-2023 08:04-0500 Body mass index (BMI) [Ratio] 25.7 kg/m2 Dr. Basilio Flores Work Phone: 4(054)963-274288 [place] [address] 06-08-2023 08:04-0500 Body temperature 97.9 [degF] Dr. Basilio Flores Work Phone: 2(338)827-873788 [place] [address] 06-08-2023 08:04-0500 Body weight 63.[address] Basilio Flores Work Phone: 3(306)154-690888 [place] [address] 06-05-2023 08:33-0500 Diastolic blood pressure 67 mm[Hg] Dr. Basilio Flores Work Phone: 0(461)313-185488 [place] [address] 06-05-2023 08:33-0500 Heart rate 81 /min Dr. Basilio Flores Work Phone: 1(125)258-013488 [place] [address] 06-05-2023 08:33-0500 Respiratory rate 16 /min Dr. Basilio Flores Work Phone: 0(464)011-522888 [place] [address] 06-05-2023 08:33-0500 SaO2% (BldA) [Mass fraction] 93 % Dr. Basilio Flores Work Phone: 3(128)651-809800 [place] [address] 06-05-2023 08:33-0500 Systolic blood pressure 142 mm[Hg] Dr. Basilio Flores Work Phone: 2(901)768-485588 [place] [address] 06-05-2023 03:42-0500 Body height 162.[address] Basilio Flores Work Phone: 2(102)854-446288 [place] [address] 06-05-2023 03:42-0500 Body mass index (BMI) [Ratio] 23.9 kg/m2 Dr. Basilio Flores Work Phone: 8(906)469-590145 [address] 06-05-2023 03:42-0500 Body temperature 97.6 [degF] Dr. Basilio Flores Work Phone: 0(489)264-719588 [place] [address] 06-05-2023 03:42-0500 Body weight 63.[address] Basilio Flores Work Phone: 3(909)767-792988 [place] [address] NEGATED: Highlighted [id number] 14:06-0500 BMI (Body Mass Index) 44.85 kg/m2 Arcenio Moreira AT [facility] Work Phone: NEGATED: Highlighted [id number] 14:06-0500 Body weight 102.06 kg Arcenio Moreira AT [facility] Work Phone: NEGATED: Highlighted [id number] 14:06-0500 Body weight 102 kg Arcenio Moreira AT [facility] Work Phone: NEGATED: Highlighted [id number] 14:06-0500 BP Diastolic 68 mm[Hg] Arcenio Moreira AT [facility] Work Phone: NEGATED: Highlighted [id number] 14:06-0500 BP Systolic 124 mm[Hg] Arcenio Moreira AT [facility] Work Phone: NEGATED: Highlighted [id number] 14:06-0500 Height 151.13 cm rAcenio Moreira AT [facility] Work Phone: NEGATED: Highlighted [id number] 14:06-0500 Height 151 cm Arcenio Moreira AT [facility] Work Phone: NEGATED: Highlighted [id number] 14:06-0500 Pulse (Heart Rate) 101 /min Arcenio Moreira AT [facility] Work Phone: Encounters Encounter Date Encounter Type Care Provider Facility Start: 10-06-2024 ambulatory Donato COLVIN Fa cility:[facility] Start: 10-06-2024 Registered Referred Donato Sepulveda MD [facility] Start: 09-08-2024 End: 09-08-[address] Basilio Flores MD Work Phone: [facility] Work Phone: Start: 09-08-2024 End: 09-08-2024 [facility]: 09-08-[facility]24 [facility] Start: 09-08-2024 End: 09-08-2024 ambulatory Donato COLVIN Facility:[facility] Start: 08-25-2024 End: 08-25-[address] Basilio Flores MD Work Phone: [facility] Work Phone: Start: 08-25-2024 End: 08-25-2024 [facility] Start: 08-24-2024 End: 08-24-2024 Admission to same day surgery center Dr. Armando Rich MD -[facility] Start: 08-24-2024 End: 08-25-[address] Basilio Flores MD Work Phone: [facility] Work Phone: Start: 08-17-2024 End: 08-17-2024 ambulatory Debora Schneider NP [facility] Start: 08-17-2024 End: 08-17-2024 Patient encounter [facility] Work [facility] Start: 07-15-2024 End: 07-15-[address] Basilio Flores MD Work Phone: [facility] Work Phone: Start: 07-15-2024 End: 07-15-2024 [facility] Start: 07-14-2024 End: 07-14-[address] Donato Sepulveda MD -[facility] [place] Work Phone: Start: 07-14-2024 End: 07-15-[address] Basilio Folres MD Work Phone: [facility] Work Phone: Start: 07-14-2024 End: 07-14-2024 [facility] [place] Start: 07-14-2024 Registered Referred Donato Sepulveda MD [facility] Start: 07-14-2024 End: 07-14-2024 ambulatory Basilio Flores Facility:[facility] Start: 06-26-2024 End: 06-26-2024 ambulatory Basilio Flores [facility] Start: 06-26-2024 End: 06-26-2024 Patient encounter procedure Debora DOW -[facility] [place] Work Phone: Start: 06-15-2024 ambulatory Donato COLVIN Fa cility:[facility] Start: 06-15-2024 Registered Referred Donato Sepulveda MD [facility] Start: 06-09-2024 ambulatory Donato Sepulveda OLS Fa cility:[facility] Start: 06-09-2024 [facility] Start: 06-02-2024 End: 06-02-2024 [facility] [place] Start: 06-01-2024 End: 06-02-2024 ambulatory Donato COLVIN Facility:[facility] Start: 06-01-2024 End: 06-01-2024 Patient encounter procedure Debora Schneider DIRECTOR GOVERNMENT-C -[facility] Work Phone: Start: 05-19-2024 End: 05-19-2024 ambulatory Basilio Flores Facility:[facility] Start: 05-19-2024 End: 05-19-[address] Donato Sepulveda MD -[facility] [place] Work Phone: Start: 04-21-2024 ambulatory Donato COLVIN Fa cility:[facility] Start: 04-21-2024 Registered Referred Donato Sepulveda MD [facility] Start: 04-07-2024 End: 04-07-2024 ambulatory Basilio Flores Facility:[facility] Start: 04-07-2024 End: 04-07-2024 ambulatory Livierstumarcela COLVIN Facility:[facility] Start: 03-17-2024 End: 03-17-2024 ambulatory Basilio Flores Facility:[facility] Start: 03-10-2024 End: 03-10-2024 ambulatory Donato Harjitrjruthann COLVIN Facility:[facility] Start: 02-06-2024 End: 02-06-2024 ambulatory Debora Schneider DIRECTOR GOVERNMENT Facility:[facility] Start: 02-04-2024 End: 02-04-2024 ambulatory Donato Martinezruthann COLVIN Facility:[facility] Start: 01-21-2024 End: 01-21-2024 ambulatory Basilio Flores Facility:[facility] Start: 01-14-2024 ambulatory Donato Martineze OLS Fa cility:[facility] Start: 01-09-2024 End: 01-09-2024 ambulatory Debora Schneider DIRECTOR GOVERNMENT Facility:[facility] Start: 12-30-2023 End: 12-30-2023 ambulatory Debora Schneider DIRECTOR GOVERNMENT Facility:[facility] Start: 12-10-2023 End: 12-10-2023 ambulatory Basilio Flores Facility:[facility] Start: 11-19-2023 End: 11-19-2023 ambulatory Basilio Flores Facility:[facility] Start: 11-01-2023 End: 11-01-2023 ambulatory Basilio Flores Facility:[facility] Start: 08-06-2023 End: 08-06-[address] Basilio Flores Work Phone: [facility] Work Phone: Start: 08-06-2023 End: 08-06-[address] Basilio Flores Work Phone: [place] Start: 06-11-2023 End: 06-11-[address] Basilio Flores Work Phone: [facility] Work Phone: Start: 06-11-2023 End: 06-11-[address] Basilio Flores Work Phone: [place] Start: 06-08-2023 End: 06-08-2023 Emergency department patient visit Dr. Basilio Flores Work Phone: [facility] Work Phone: Start: 06-05-2023 End: 06-05-[address] Basilio Flores Work Phone: [facility] Work Phone: Start: 06-05-2023 End: 06-05-2023 Emergency department patient visit Dr. Basilio Flores Work Phone: [facility] Work Phone: Start: 05-28-2023 End: 05-28-[address] Basilio Flores Work Phone: [facility] Work Phone: Start: 05-15-2023 End: 05-15-[address] Basilio Flores Work Phone: [facility] Work Phone: Start: 04-24-2023 End: 04-24-[address] Basilio Flores Work Phone: [facility] Work Phone: Start: 04-23-2023 End: 04-23-[address] Basilio Flores Work Phone: [facility] Work Phone: Start: 04-23-2023 End: 04-23-[address] Basilio Flores Work Phone: [place] Start: 04-23-[address] Basilio avendano Work Phone: [place] Start: 04-19-2023 End: 04-19-[address] Basilio Flores Work Phone: [facility] Work Phone: Start: 04-19-2023 End: 04-19-[address] Basilio Flores Work Phone: [place] Start: 04-19-[address] Basilio avendano Work Phone: [place] Start: 04-09-2023 End: 04-09-[address] Basilio Flores Work Phone: [facility] Work Phone: Start: 04-09-2023 End: 04-09-[address] Basilio Flores Work Phone: [place] Start: 03-26-2023 End: 03-26-[address] Basilio Flores Work Phone: [facility] Work Phone: Start: 03-13-2023 End: 03-13-[address] Basilio Flores Work Phone: [facility] Work Phone: Start: 03-12-2023 End: 03-12-[address] Basilio Flores Work Phone: [place] Start: 03-07-2023 End: 03-07-[address] Basilio Flores Work Phone: [facility] Work Phone: Start: 02-05-2023 End: 02-05-[address] Basilio Flores Work Phone: [place] Start: 02-04-2023 End: 02-04-[address] Basilio Flores Work Phone: [facility] Work Phone: Start: 01-30-2023 End: 01-30-[address] Basilio Flores Work Phone: [facility] Work Phone: Start: 01-22-2023 End: 01-22-[address] Basilio Flores Work Phone: [facility] Work Phone: Start: 01-17-2023 End: 01-17-[address] Basilio Flores Work Phone: [facility] Work Phone: Start: 01-01-2023 End: 01-01-[address] Basilio Flores Work Phone: [facility] Work Phone: Start: 12-07-2022 End: 12-07-[address] Basilio Flores Work Phone: [facility] Work Phone: Start: 12-07-2022 End: 12-07-[address] Basilio Flores Work Phone: [place] Start: 12-04-2022 End: 12-04-[address] Basilio Flores Work Phone: [facility] Work Phone: Start: 12-04-2022 End: 12-04-[address] Basilio Flores Work Phone: [place] Start: 12-04-[address] Basilio avendano Work Phone: [place] Start: 11-21-2022 End: 11-21-[address] Basilio Flores Work Phone: [facility] Work Phone: Start: 11-21-2022 End: 11-21-[address] Basilio Flores Work Phone: [place] Start: 11-21-[address] Basilio avendano Work Phone: [place] Start: 11-20-2022 End: 11-20-[address] Basilio Flores Work Phone: [facility] Work Phone: Start: 10-31-2022 End: 10-31-[address] Basilio Flores Work Phone: [facility] Work Phone: Start: 10-09-2022 End: 10-09-[address] Basilio Flores Work Phone: [facility] Work Phone: Start: 10-09-2022 End: 10-09-[address] Basilio Flores Work Phone: [place] Start: 10-09-[address] Basilio avendano Work Phone: [place] Start: 10-05-2022 End: 10-05-[address] Basilio Flores Work Phone: [facility] Work Phone: Start: 10-05-2022 End: 10-05-[address] Basilio Flores Work Phone: [place] Start: 10-05-[address] Basilio avendano Work Phone: [place] Start: 10-04-2022 End: 10-04-[address] Basilio Flores Work Phone: [place] Start: 10-04-[address] Basilio avendano Work Phone: [place] Start: 09-25-2022 End: 09-25-[address] Basilio Flores Work Phone: [facility] Work Phone: Start: 09-04-2022 End: 09-04-[address] Basilio Flores Work Phone: [facility] Work Phone: Start: 09-04-2022 End: 09-04-[address] Basilio Flores Work Phone: [place] Start: 09-03-2022 End: 09-03-[address] Basilio Flores Work Phone: [facility] Work Phone: Start: 08-07-2022 End: 08-07-[address] Basilio Flores Work Phone: [facility] Work Phone: Start: 08-07-2022 End: 08-07-[address] Basilio Flores Work Phone: [place] Start: 08-02-2022 End: 08-02-[address] Basilio Flores Work Phone: [facility] Start: 07-24-2022 End: 07-24-[address] Basilio Flores Work Phone: [facility] Start: 07-21-2022 End: 07-21-[address] Basilio Flores Work Phone: [facility] Start: 07-13-2022 End: 07-13-[address] Basilio Flores Work Phone: [facility] Start: 07-02-2022 End: 07-02-[address] Basilio Flores Work Phone: [phone] [place] [address] Start: 06-15-2022 End: 06-15-[address] Basilio Flores Work Phone: [phone] [place] [address] Start: 06-12-2022 End: 06-12-[address] Basilio Flores Work Phone: [phone] [place] [address] Work Phone: Start: 06-12-2022 End: 06-12-[address] Basilio Flores Work Phone: [phone] [place] [address] Start: 05-29-2022 End: 05-29-[address] Basilio Flores Work Phone: [facility] Start: 04-17-2022 End: 04-17-[address] Basilio Flores Work Phone: [place] Start: 04-17-[address] Basilio avendano Work Phone: [place] Start: 04-13-2022 End: 04-13-[address] Basilio Flores Work Phone: [phone] [place] [address] Start: 04-13-[address] Basilio avendano Work Phone: [place] Start: 04-10-2022 End: 04-10-[address] Basilio Flores Work Phone: [facility] Work Phone: Start: 04-10-2022 End: 04-10-[address] Basilio Flores Work Phone: [place] Start: 04-05-2022 End: 04-05-[address] Basilio Flores Work Phone: [facility] Start: 03-27-2022 End: 03-27-[address] Basilio Flores Work Phone: [facility] Start: 03-06-2022 End: 03-06-[address] Basilio Flores Work Phone: [facility] Work Phone: Start: 03-06-2022 End: 03-06-[address] Basilio Flores Work Phone: [place] Start: 02-06-2022 End: 02-06-[address] Basilio Flores Work Phone: [facility] Work Phone: Start: 02-06-2022 End: 02-06-[address] Basilio Flores Work Phone: [place] Start: 12-05-2021 End: 12-05-[address] Basilio Flores Work Phone: [place] Start: 12-04-2021 End: 12-04-[address] Basilio Flores Work Phone: [facility] Start: 11-14-2021 End: 11-14-[address] Basilio Flores Work Phone: [place] Start: 10-17-2021 End: 10-17-[address] Basilio Flores Work Phone: [place] Start: 10-17-[address] Basilio avendano Work Phone: [place] Start: 10-05-2021 End: 10-05-[address] Basilio Flores Work Phone: [place] Start: 09-12-2021 End: 09-12-[address] Basilio Flores Work Phone: [facility] Start: 09-05-2021 End: 09-05-[address] Basilio Flores Work Phone: [place] Start: 08-08-2021 End: 08-08-2021 Departed Referred [place] Start: 08-08-2021 Registered Referred [facility] Start: 07-12-2021 End: 07-12-2021 Departed Referred [place] Start: 03-16-2019 End: 03-16-2019 Patient encounter procedure Rachael Newman MD Work Phone: [facility] Work Phone: Procedures Date Procedure Procedure Detail Performing Clinician Start: 10-06-2024 Vitamin D, 25-hydrox y measurement Dr. Basilio Flores MD Work Phone: Comment on above: Vitamin D StatusDefi ciency: <20 ng/mL (50nmol/L)Insufficiency: 20-30 ng/mL (50-75 nmol/L)Sufficiency: 30-100 ng/mL (75-250 nmol/L)Toxicity: >100 ng/mL (>250 nmol/L) Start: 08-25-2024 Vitamin D, 25-hydrox y measurement Dr. Basilio Flores MD Work Phone: Comment on above: Vitamin D StatusDefi ciency: <20 ng/mL (50nmol/L)Insufficiency: 20-30 ng/mL (50-75 nmol/L)Sufficiency: 30-100 ng/mL (75-250 nmol/L)Toxicity: >100 ng/mL (>250 nmol/L) Start: 08-24-2024 Fluoroscopic guidance Parminder Flores MD Work Phone: Start: 08-24-[address] Brianne Flores MD Work Phone: Start: 07-15-[address] Basilio Flores MD Work Phone: Start: 07-15-2024 Urnls dip stick/tabl et reagent auto microscopy Dr. Basilio Flores MD Work Phone: Start: 07-14-2024 Vitamin D, 25-hydrox y measurement Dr. Basilio Flores MD Work Phone: Comment on above: Vitamin D StatusDefi ciency: <20 ng/mL (50nmol/L)Insufficiency: 20-30 ng/mL (50-75 nmol/L)Sufficiency: 30-100 ng/mL (75-250 nmol/L)Toxicity: >100 ng/mL (>250 nmol/L) Start: 06-15-2024 Urnls dip stick/tabl et reagent auto microscopy Dr. Basilio Flores MD Work Phone: Start: 06-15-[address] Basilio Flores MD Work Phone: Start: 06-08-2023 Plain x-ray of humerus Dr. Basilio Flores Work Phone: Start: 06-08-2023 Plain X-ray of shoulder Dr. Basilio Flores Work Phone: Start: 06-08-2023 CT cervical spine without contrast Dr. Basilio Flores Work Phone: Start: 06-08-2023 CT of head without contrast Dr. Basilio Flores Work Phone: Start: 06-05-2023 CT cervical spine without contrast Dr. Basilio Flores Work Phone: Start: 06-05-2023 CT of head without contrast Dr. Basilio Flores Work Phone: Start: 06-05-2023 Plain x-ray of elbow Dr Mayela Flores Work Phone: Start: 03-16-2019 End: 03-16-2019 Blood pressure within [...] Treatment Date Care Activity Detail Author Start: 08-24-2024 Injection aa&/strd genicular nrv branches w/img NJX AA&/STRD GNCLR NRV BRNCH [facility] Start: 08-24-2024 Fluoroscopic guidance [facility] Start: 08-24-2024 Patient discharge [facility] Start: 06-08-2023 [facility] Start: 06-05-2023 Simple repair f/e/e/n/l/m 2.5cm/< RPR F/E/E/N/L/M 2.5 CM/< [facility] Start: 06-05-2023 [facility] Start: 03-16-2019 End: 03-16-2019 Appointment Appointment [facility] Work Phone: Patient Education [facility] Work Phone: Patient referral [facility] Work Phone: Immunizations Immunization Date Immunization Notes Care Provider Fa cility 06-05-2023 tetanus toxoid, redu lloyd diphtheria toxoid, and acellular pertussis vaccine, adsorbed Dr. Basilio Flores Work Phone: [facility] 02-23-2015 Influenza virus vaccine [facility] Payers Date Payer Category Payer Self-pay [id number] 2023 Medicare [id number] 2023 Unknown [id number] Unknown [id number] 2.16.8 40.1.504199.3.579.2.462 Unknown [id number] 2.16.8 40.1.708251.3.579.2.462 Unknown [id number] 2.16.8 40.1.962168.3.579.2.462 Unknown [id number] 2.16.8 40.1.927028.3.579.2.462 Unknown [id number] 2.16.8 40.1.338234.3.579.2.462 Unknown [id number] 2.16.8 40.1.569848.3.579.2.462 Unknown [id number] 2.16.8 40.1.826446.3.579.2.462 Unknown [id number] 2.16.8 40.1.789846.3.579.2.462 Unknown [id number] 2.16.8 40.1.374971.3.579.2.462 Unknown [id number] 2.16.8 40.1.628004.3.579.2.462 Unknown [id number] 2.16.8 40.1.655675.3.579.2.462 Unknown [id number] 2.16.8 40.1.180573.3.579.2.462 Unknown [id number] 2.16.8 40.1.063189.3.579.2.462 Unknown [id number] 2.16.8 40.1.509135.3.579.2.462 Unknown [id number] 2.16.8 40.1.675430.3.579.2.462 Unknown [id number] 2.16.8 40.1.318393.3.579.2.462 Unknown [id number] 2.16.8 40.1.558239.3.579.2.462 Unknown [id number] 2.16.8 40.1.018389.3.579.2.462 Unknown [id number] 2.16.8 40.1.475790.3.579.2.462 Unknown [id number] 2.16.8 40.1.544100.3.579.2.462 Unknown [id number] 2.16.8 40.1.303072.3.579.2.462 Unknown [id number] 2.16.8 40.1.625455.3.579.2.462 Unknown [id number] 2.16.8 40.1.682326.3.579.2.462 Unknown [id number] 2.16.8 40.1.819946.3.579.2.462 Unknown [id number] 2.16.8 40.1.563932.3.579.2.462 Unknown [id number] 2.16.8 40.1.229898.3.579.2.462 Unknown [id number] 2.16.8 40.1.558848.3.579.2.462 Unknown [id number] 2.16.8 40.1.044046.3.579.2.462 Social History Date Type Detail Facility Start: 12-16-2019 End: 06-08-2023 Tobacco smoking status UTIS Unknown if ever smoked [facility] Start: 12-16-2019 None [facility] Start: 12-16-2019 Correction [facility] Start: 12-16-2019 Non-smoker [facility] Start: 1940 Sex Assigned At Female [facility] Start: 06-08-2023 Tobacco smoking status NHIS Never smoked tobacco (finding) [facility] Start: 08-06-2024 End: 08-24-2024 Sex Female (finding) [facility] NEGATED: Highlighted rowStart: 03-16-2019 End: 03-16-2019 Alcohol use Alcohol use [facility] Work Phone: NEGATED: Highlighted rowStart: 03-16-2019 End: 03-16-2019 Details of drug misuse behavior Details of drug misuse behavior [facility] Work Phone: NEGATED: Highlighted rowStart: 03-16-2019 End: 03-16-2019 Assertion Never smoker [facility] Work Phone: Goals Date Patient Goal Desired Activity /State Mental Status Date Assessment Result Facility 08-24-2024 Cognitive function Voice/Name [facility] Work Phone: Procedure note 08-24-2024 Note Date & Type Note Facility 08-24-2024 Procedure note [facility] Discharge summary 06-05-2023 Note Date & Type Note Facility 06-05-2023 Discharge summary Note Date/Time June 05, 2023 4:38am [facility] Medical Records Department [address] [place] [address] Emergency Department Summary 06/05/23 MR#: [id number] Acct: [id number] Name: MINDY CHINCHILLA Rep #:[id number] : 1940 82 From: Colleen Gomez PCP: Dr. Basilio Flores MD Status:REG ER Location: ED HPI History of Present Illness Chief Complaint: Head Injury Informant: patient Narrative Narrative: Patient is an 82-year-old female presenting from [facility] after she injured her head. Patient states she fell out of her wheelchair. She not sure why she fell out of her wheelchair. She notes is her second fall today. She did strike her head. Not sure if she lost consciousness. Is complaining ofpain at site of a forehead laceration but no other acute complaints. On furtherquestioning she notes that she is having right elbow pain from a fall earlier today. Again she states she fell out of her wheelchair. She she otherwise beenfeeling well denies any other complaints at this time. Is not on any blood thinners. Per snf report patient was in the dining room at the table doing her puzzles which is her typical activity. Unclear if there was loss of consciousness. Was sent for evaluation of injuries. Tetanus Immunization: Unknown [facility] Medical History Anxiety and depression Arthritis Asthma Back problem Bladder cancer Cataracts, bilateral Chronic headaches Gallstones GERD (gastroesophageal reflux disease) Heart murmur High cholesterol Hives HTN (hypertension) Liver disease Neuropathy Osteoarthritis Osteopenia Pain in both knees Recurrent infections Recurrent UTI Skin cancer Type 2 diabetes mellitus Vision problems Home Medications acetaminophen 325 mg tablet 650 mg PO TID CHRONIC PAIN 09/20/17 [History Last Taken 12/16/19] Bacillus coagulans-inulin 1 billion cell-250 mg capsule 1 cap PO DAILY [facility] 12/16/19 [History Last Taken 12/16/19] atorvastatin 10 mg tablet 10 mg PO QHS CHOLESTEROL 12/16/19 [History Last Taken 12/15/19] calcitriol 0.5 mcg capsule 0.5 mcg PO DAILY SUPPLEMENT 12/16/19 [History Last Taken 12/16/19] dulaglutide 0.75 mg/0.5 mL subcutaneous pen injector 0.75 mg SQ TU DM 12/16/19 [History Last Taken 12/15/19] famotidine 20 mg tablet 20 mg PO QHS GERD 12/16/19 [History Last Taken 12/15/19] gabapentin 100 mg capsule 200 mg PO QHS NERVE PAIN 12/16/19 [History Last Taken 12/15/19] insulin aspart U-100 100 unit/mL (3 mL) subcutaneous pen 10 units subcut DAILY@0900 DM 12/16/19 [History Last Taken 12/16/19] insulin aspart U-100 100 unit/mL (3 mL) subcutaneous pen See Protocol subcut TIDCM DM 12/16/19 [History Last Taken 12/16/19] insulin aspart U-100 100 unit/mL subcutaneous solution 12 unit SQ DAILY@1200 DM 12/16/19 [History Last Taken 12/16/19] insulin aspart U-100 100 unit/mL subcutaneous solution 12 unit SQ DAILY@1700 DM 12/16/19 [History Last Taken 12/15/19] insulin glargine 100 unit/mL subcutaneous solution 42 unit SQ BID DM 12/16/19 [History Last Taken 12/16/19] melatonin 3 mg tablet 3 mg PO QHS SLEEP 12/16/19 [History Last Taken 12/15/19] mirtazapine 15 mg tablet 15 mg PO QHS DEPRESSION 12/16/19 [History Last Taken 12/15/19] ropinirole 2 mg tablet 2 mg PO TID RLS 12/16/19 [History Last Taken 12/16/19] bumetanide 2 mg tablet 2 mg PO DAILY FLUID #1 TAB 12/18/19 [Rx Last Taken Unknown] dapagliflozin propanediol 10 mg tablet (Farxiga) mg 06/05/23 [History Last Taken Unknown] furosemide 20 mg tablet mg 06/05/23 [History Last Taken Unknown] linaclotide 290 mcg capsule (Linzess) mcg 06/05/23 [History Last Taken Unknown] metformin 750 mg tablet,extended release 24 hr mg PO 06/05/23 [History Last Taken Unknown] oxycodone 5 mg tablet mg 06/05/23 [History Last Taken Unknown] potassium chloride 20 mEq tablet,extended release(part/cryst) meq PO 06/05/23 [History Last Taken Unknown] venlafaxine 75 mg capsule,extended release 24 hr mg PO 06/05/23 [History Last Taken Unknown] Allergy/AdvReac Type Severity Reaction Status Date / Time sulfamethoxazole Allergy Rash Verified 06/05/23 03:49 [From Bactrim] trimethoprim [From Bactrim] Allergy Rash Verified 06/05/23 03:49 carbidopa [From Sinemet] AdvReac Nausea Verified 06/05/23 03:49 hydrocodone bitartrate AdvReac Nausea Verified 06/05/23 03:49 [From Vicodin] ketoprofen [From Orudis] AdvReac Unknown Verified 06/05/23 03:49 levodopa [From Sinemet] AdvReac Nausea Verified 06/05/23 03:49 lorazepam [From Ativan] AdvReac hallucinati Verified 06/05/23 03:49 on metformin HCl AdvReac Nausea Verified 06/05/23 03:49 [From Glucophage] naloxone AdvReac Nausea Verified 06/05/23 03:49 NSAIDS (Non-Steroidal AdvReac PT UNSURE Verified 06/05/23 03:49 Anti-Inflamma OF REACTION oxaprozin [From Daypro] AdvReac Nausea Verified 06/05/23 03:49 oxycodone HCl [From Percocet] AdvReac Nausea Verified 06/05/23 03:49 propoxyphene HCl AdvReac Nausea Verified 06/05/23 03:49 [From Darvon] rofecoxib [From Vioxx] AdvReac Nausea Verified 06/05/23 03:49 rosiglitazone maleate AdvReac Nausea Verified 06/05/23 03:49 [From Avandia] sertraline HCl [From Zoloft] AdvReac haullucinat Verified 06/05/23 03:49 ion simvastatin [From Zocor] AdvReac Nausea Verified 06/05/23 03:49 venlafaxine HCl AdvReac Nausea Verified 06/05/23 03:49 [From Effexor] Family History Unknown Asthma Arthritis Cancer Diabetes Heart disease Hypertension High cholesterol Kidney stones Liver disease Osteoporosis Skin cancer CVA (cerebral vascular accident) Social History Smoking Status: Never smoker second hand exposure: No alcohol intake: never substance use type: does not use ROS ROS ED Constitutional Constitutional ED: Denies chills or fever(s) Eyes Eyes: Denies change in vision Gastrointestinal Gastrointestinal: Denies nausea or vomiting Musculoskeletal Musculoskeletal: Reports other Details: right elbow pain Integumentary Reports Abrasions Neurologic Neurologic: Reports headache(s); Denies paresthesias or weakness Psychiatric Psychiatric: Denies anxiety Hematologic/Lymphatic Hematologic/Lymphatic: Denies easy bleeding or easy bruising EXAM Physical Exam Const Vital Signs: 06/05/23 03:42 06/05/23 03:47 06/05/23 06:33 Temperature 97.6 F L Temperature Source Temporal Pulse Rate 66 68 Respiratory Rate 15 15 Respiratory Effort Normal Non-Labored Respiratory Depth Normal Respiratory Pattern Normal Blood Pressure 171/62 H 133/77 H Blood Pressure Mean 98 95 Pulse Ox 98 96 97 Oxygen Delivery Method Room Air Room Air Room Air Positive well developed General Appearance ED: well developed and NAD HEENT Reports TM's clear HEENT Narrative: forehead abrasion , right upper, bleeding Nose: Negative for septum abnormal Tympanic Membrane ED: Yes TM's clear Eyes PERRL and EOMs intact bilaterally Chest Wall inspection of chest normal Resp normal respiratory effort and clear to auscultation bilaterally Cardio regular rhythm Rate: regular rate GI normal to inspection, nondistended, normoactive bowel sounds and non-tender Back/Spine normal to inspection Extremity Extremity Narrative: Decreased range of motion and diffuse tenderness of the right elbow. Normal range of motion and no deformity of the shoulders, forearms or wrist. Pelvis isstable. No deformity of the lower extremities appreciated. No pain with logroll. Neuro Neuro Narrative: Patient at her baseline. No focal neurologic deficits appreciated Grady Coma Scale: document GCS findings Spontaneous Obeys Commands Confused 14 Sensorium / Orientation: alert and oriented to person Psych mental status grossly normal and thought process normal Skin Skin Narrative: Right upper forehead laceration 1 cm. There is a punctate area that is full-thickness with remaining there is partial-thickness. Wound edges are well-approximated. MDM MDM MDM Narrative Medical decision making narrative: Patient is evaluated for head injury after fall. Her sister is now at the bedside who states that did like to do a little bit more workup to see if there is a reason why she keeps falling. Will obtain EKG, CBC, BMP and urinalysis in addition to trauma imaging (CT of the brain, cervical spine and x-ray of the right elbow). Patient's tetanus is updated. Right elbow x-ray reviewed by myself as well as radiology does not show any acute fractures. CT of the brain does not show any acute skull fracture or intracranial hemorrhage however there is soft tissue swelling overlying the superior right frontal bone which is consistent with her area of trauma. CT of the cervical spine does not show any acute fracture. Lab workup largely unremarkable. Urinalysis is most consistent with contamination with equal amounts white blood cells and squamous cells. CBC and BMP unremarkable. Localized wound care applied to her forehead and hair apposition technique usingDermabond used for laceration repair. Patient be discharged back to nursing facility. The exact cause of her fall is not clear but suspect it is more debility related as she is wheelchair-bound and seems to try to get out of her wheelchair than infectious at this time. History & Record Review Discussion w/independent historian: Family Additional record(s) reviewed:: Prior outpatient record (snf paperwork ) Lab Data Attestation: I reviewed the patient's lab results. Labs: Laboratory Results - last 24 hr 06/05/23 06/05/23 05:22 06:30 WBC 8.7 RBC 4.53 Hgb 13.2 Hct 42.1 MCV 92.9 MCH 29.1 MCHC 31.4 L RDW Std Deviation 43.4 RDW Coeff of [place] 12.6 Plt Count 180 MPV 10.3 Immature Gran % (Auto) 0.300 Neut % (Auto) 76.3 H Lymph % (Auto) 13.[address] % (Auto) 7.2 Eos % (Auto) 2.0 Baso % (Auto) 0.6 Absolute Neuts (auto) 6.6 Absolute Lymphs (auto) 1.18 Nucleated RBC % 0 Sodium 137 Potassium 3.6 Chloride 104 Carbon Dioxide 32.0 Anion Gap 1 L BUN 17 Creatinine 0.78 Estim Creat Clear Calc 48.43 Est GFR (MDRD) Af Amer 92 Est GFR (MDRD) Non-Af 76 BUN/Creatinine Ratio 21.9 H Glucose 150 H Calcium 9.3 Urine Color Yellow Urine Clarity Sl. Cloudy Urine pH 6.0 Ur Specific Pyrites 1.015 Urine Protein 15 H Urine Glucose (UA) 1000 H Urine Ketones Negative Urine Occult Blood 50 H Urine Nitrite Negative Urine Bilirubin Negative Urine Urobilinogen Normal Ur Leukocyte Esterase 100 H Urine RBC 0 SEEN Urine WBC 5-10 SEEN Ur Squamous Epith Cells 5-10 SEEN Urine Bacteria 0 SEEN Urine Mucus 0 SEEN Radiography Diagnostic Testing: Clinical Impression(s) from Imaging Studies Brain CT 06/05/23 04:24 IMPRESSION: Soft tissue swelling overlying the superior right frontal bone. No skull fracture or acute intracranial hemorrhage. Electronically Signed: Herb Laguna MD at 5:50 EST , Cervical Spine CT 06/05/23 04:24 IMPRESSION: Extensive cervical degenerative changes. No acute fracture identified Electronically Signed: Herb Laguna MD at 6:04 EST , Elbow X-Ray 06/05/23 04:24 IMPRESSION: Soft tissue swelling. No acute fracture or dislocation identified. Electronically Signed: Herb Laguna MD at 5:43 EST , Rhythm Strip Rhythm Strip: Sinus Rhythm Rate: 69 Ectopy: None EKG Initial EKG: Attestation: I personally reviewed and interpreted this EKG as follows: Interpretation: Sinus Rhythm Comments: Normal sinus rhythm rate of 69 bpm Left axis deviation Left anterior fascicular block Normal intervals Moderate voltage criteria for LVH Normal ST segments LVH and left anterior vesicular-like are new compared to prior EKG on 12/16/2019 Discharge Plan Triage Chief Complaint: Head Injury ED Provider: Colleen Walker Dx/Rx/DC Orders Clinical Impression: Closed head injury, Forehead laceration Instructions: ED Head Injury (Adult), ED Laceration, Face: Skin Glue Prescriptions: No Action acetaminophen 325 MG tablet 650 mg PO TID insulin glargine 100 UNIT/ML solution 42 unit SQ BID atorvastatin 10 MG tablet 10 mg PO QHS melatonin 3 MG tablet 3 mg PO QHS famotidine 20 MG tablet 20 mg PO QHS ropinirole 2 MG tablet 2 mg PO TID calcitriol 0.5 MCG capsule 0.5 mcg PO DAILY mirtazapine 15 MG tablet 15 mg PO QHS gabapentin 100 MG capsule 200 mg PO QHS insulin aspart U-100 100 UNITS/ML insulin pen 10 units subcut DAILY@0900 insulin aspart U-100 100 UNITS/ML insulin pen See Protocol subcut TIDCM Protocol: 6. Sliding Scale Insulin Custom Condition: mg/dl range Dose/Route: Number of Units Condition: 201-250 Dose/Route: 4 Condition: 251-300 Dose/Route: 6 Condition: 301-350 Dose/Route: 8 Condition: 351-400 Dose/Route: 10 Condition: >400 Dose/Route: 12 Protocol Text: Custom Sliding Scale Bacillus coagulans-inulin 1 EACH capsule 1 cap PO DAILY dulaglutide 0.75 MG/0.5 ML pen injector 0.75 mg SQ TU insulin aspart U-100 100 UNIT/ML solution 12 unit SQ DAILY@1200 insulin aspart U-100 100 UNIT/ML solution 12 unit SQ DAILY@1700 bumetanide 2 MG tablet 2 mg PO DAILY Qty: 1 0RF metformin 750 mg tablet extended release 24 hr PO Linzess 290 mcg capsule dapagliflozin propanediol [Farxiga] 10 mg tablet venlafaxine 75 mg capsule,extended release 24hr PO potassium chloride 20 mEq tablet,ER particles/crystals PO furosemide 20 mg tablet oxycodone 5 mg tablet Primary Care Provider: Basilio Flores Referrals: Basilio Flores MD [Primary Care Provider] - Activity Restrictions/Additional Instructions: Lab work including CBC, BMP, urinalysis and CT of the head, cervical spine as well as x-ray of the right elbow do not show any acute injury or abnormalities. The cause of Thuys frequent falls is not clear however at this time I do not think she requires admission to the hospital. Disposition Disposition: Home, Self Care What to do if you have Problems For any increased pain, shortness of breath, bleeding, nausea or vomiting, chestpain, or any unexpected problems, contact your Primary Care Provider. Call [facility] ([phone]) or report to the closest Emergency Room. Call 911 if necessary. 06/05/23 0754 <Electronically signed by Colleen Walker DO> Cosigner Signature (if applicable): CC: Dr. Basilio Flores MD ~ Signed [facility] Work Phone: Evaluation note Note Date & Type Note Facility Evaluation note No assessment information availa ble [facility] Work Phone: Hospital Discharge instructions Note Date & Type Note Facility Hospital Discharge instructions Additional Instructions Lab work including CBC, BMP, urinalysis and CT of the head, cervical spine as well as x-ray of the right elbow do not show any acute injury or abnormalities. The cause of Thuys frequent falls is not clear however at this time I do not think she requires admission to the hospital. [facility] Work Phone: Reason for referral (narrative) Note Date & Type Note Facility Reason for referral (narrative) No reason for referral information available [facility] Work Phone: Chief Complaint Chief Complaint Description Start Date lower back pain Preliminary chief co mplaint data, not yet signed by the author as of Instructions Instruction Description Start Date Patient advised to follow-up with Primary Care Physician for BMI management. Advance Directives Advance Directive Response Recorded Date/ Time Advance Directives Yes October 13 1:44pm Living Will Yes December 15 0 6:54pm Power of Software Project Manager Yes December 15 6:54pm Advance Directive Response Recorded Date/ Time Advance Directives Yes October 13 12:44pm Living Will Yes December 15 0 5:54pm Power of Software Project Manager Yes December 15 5:54pm Advance Directive Response Recorded Date/ Time Advance Directives Yes March 07, 2023 11:00am Living Will Yes March 07 11:00am Power of Software Project Manager Yes March 07, 2023 11:00am Advance Directive Response Recorded Date/ Time Name of Medical Power of Software Project Manager ABEBE AGUSTIN June 05, 2023 3:45am Advance Directives Yes March 07, 2023 11:00am Living Will Yes June 05 3:45am Power of Software Project Manager Yes June 05, 2023 3:45am Advance Directive Response Recorded Date/ Time Name of Medical Power of Software Project Manager ABEBE AGUSTIN June 05, 2023 3:45am Advance Directives Yes March 07, 2023 11:00am Living Will No June 08 8:10am Power of Software Project Manager No June 08, 2023 8:10am Advance Directive Response Recorded Date/ Time Name of Medical Power of Software Project Manager ABEBE AGUSTIN June 05, 2023 4:45am Advance Directives Yes March 07, 2023 12:00pm Living Will No June 08 9:10am Power of Software Project Manager No June 08, 2023 9:10am Advance Directive Response Recorded Date/ Time Advance Directives Yes March 07, 2023 12:00pm Assessments There may be information available, but it has not been provided by the sender. Review of System There may be information available, but it has not been provided by the sender. Family History Relationship Condition Age at Onset Recorded Date/T ivan Not Specified Asthma Unknown Arthritis Unknown Malignant neoplasm Unknown Diabetes mellitus Unknown Cardiac disease Unknown Hypertension Unknown High blood cholesterol Unknown Calculus of kidney Unknown Disorder of liver Unknown Osteoporosis Unknown Malignant neoplasm of skin Unknown Cerebrovascular accident (CVA) Unknown Relationship Condition Age at Onset Recorded Date/T ivan unrelated friend Asthma Unknown Arthritis Unknown Malignant neoplasm Unknown Diabetes mellitus Unknown Cardiac disease Unknown Hypertension Unknown High blood cholesterol Unknown Calculus of kidney Unknown Disorder of liver Unknown Osteoporosis Unknown Malignant neoplasm of skin Unknown Cerebrovascular accident (CVA) Unknown History of Present Illness There may be information available, but it has not been provided by the sender. Chief Complaint and Reason for Visit Chief Complaint [facility] Chief Complaint [facility] MONTHLY EXAM [facility] Complaint [facility] MONTHLY EXAM LABWORK Chief Complaint [facility] PATIENT MONTHLY EXAM LABWORK Chief Complaint MONTHLY EXAM LABWORK [facility]WORK [facility] MONTHLY EXAM [facility] Chief Complaint [facility] MONTHLY EXAM [facility] Chief Complaint MONTHLY EXAM [facility]WORK [facility] Chief Complaint [facility] NEW SYMPTOMS/CONCERNS ACUTE CARE VISIT [facility] WORK [facility] WORK Chief Complaint [facility] NEW SYMPTOMS/CONCERNS ACUTE CARE VISIT [facility] WORK [facility] WORK MONTHLY EXAM [facility] NEW PROBLEM/CONCERN Chief Complaint MONTHLY EXAM [facility] NEW PROBLEM/CONCERN NEW PROBLEM NEW PROBLEM/CONCERN NEW PROBLEM NEW PROBLEM NEW PROBLEM [facility] Chief Complaint MONTHLY EXAM [facility] NEW PROBLEM/CONCERN NEW PROBLEM NEW PROBLEM/CONCERN NEW PROBLEM NEW PROBLEM NEW PROBLEM [facility] Chief Complaint NEW CONCERN [facility] MONTHLY EXAM [facility] WORK [facility] LABWORK [facility] WORK MONTHLY EXAM MONTHLY EXAM [facility] WORK Chief Complaint NEW CONCERN [facility]WORK MONTHLY EXAM [facility] WORK [facility] LABWORK [facility] WORK MONTHLY EXAM MONTHLY EXAM [facility] WORK [facility] WORK Chief Complaint NEW CONCERN NEW CONCERN MONTHLY EXAM NEW CONCERN NEW CONCERN [facility] WORK FOLLOW UP [facility] WORK ACUTE CARE MONTHLY EXAM [facility] WORK Chief Complaint NEW CONCERN MONTHLY EXAM NEW CONCERN NEW CONCERN [facility] WORK FOLLOW UP [facility] WORK ACUTE CARE MONTHLY EXAM [facility] WORK [facility] Chief Complaint [facility] K FOLLOW UP [facility] WORK ACUTE CARE MONTHLY EXAM [facility] WORK [facility]WORK [facility] MONTHLY EXAM DIRECTOR GOVERNMENT HEAD INJURY Chief Complaint FOLLOW UP [facility] WORK ACUTE CARE MONTHLY EXAM [facility] WORK [facility]WORK [facility] MONTHLY EXAM DIRECTOR GOVERNMENT NEW CONCERN MONTHLY EXAM - MD HEAD INJURY NEW CONCERN fall LABWORK Chief Complaint [facility] MONTHLY EXAM DIRECTOR GOVERNMENT NEW CONCERN MONTHLY EXAM - MD HEAD INJURY NEW CONCERN fall LABWORK [facility] WORK Chief Complaint Admit Date [facility] April 21 5:00am MONTHLY EXAM May 19, 2024 4 :53pm NEW CONCERN June 01, 2024 5 :22pm [facility] June 02, 2024 5:00am [facility] June 09, 2024 5:00am [facility] June 15 3:15pm NEW CONCERN June 26, 2024 5:54pm [facility] July 14, 2024 4 :00am [facility] July 15, 2024 5 :00am Chief Complaint Admit Date [facility] April 21 5:00am MONTHLY EXAM May 19, 2024 4 :53pm NEW CONCERN June 01, 2024 5 :22pm [facility] June 02, 2024 5:00am [facility] June 09, 2024 5:00am [facility] June 15 3:15pm NEW CONCERN June 26, 2024 5:54pm [facility] July 14, 2024 4 :00am MONTHLY EXAM July 14, 2024 4:0 5pm [facility] July 15, 2024 5 :00am Chief Complaint Admit Date MONTHLY EXAM May 19, 2024 4 :53pm NEW CONCERN June 01, 2024 5 :22pm [facility] June 02, 2024 5:00am [facility] June 09, 2024 5:00am [facility] June 15 3:15pm NEW CONCERN June 26, 2024 5:54pm [facility] July 14, 2024 4 :00am MONTHLY EXAM July 14, 2024 4:0 5pm [facility] July 15, 2024 5 :00am Chief Complaint Admit Date [facility] June 09, 2024 5:00am [facility] June 15 3:15pm NEW CONCERN June 26, 2024 5:54pm [facility] July 14, 2024 4 :00am MONTHLY EXAM July 14, 2024 4:0 5pm [facility] July 15, 2024 5 :00am MONTHLY EXAM August 17, 2024 4:4 9pm [facility] August 25, 2024 4 :00am Chief Complaint Admit Date [facility] June 15 3:15pm NEW CONCERN June 26, 2024 5:54pm [facility] July 14, 2024 4 :00am MONTHLY EXAM July 14, 2024 4:0 5pm [facility] July 15, 2024 5 :00am MONTHLY EXAM August 17, 2024 4:4 9pm [facility] August 25, 2024 4 :00am [facility] September 08, 2024 5:00 am Summary Purpose Additional Source Comments Reason for Visit (unrecogniz ed section and content) Reason For Visit Description New - 1st visit with practice Preliminary reason f or visit data, not yet signed by the author as of lower back pain Goals (unrecognized section and content) Goals may be documented in a n alternate sectionGoals may be documented in an alternate sectionGoals may be documented in an alternate sectionGoals may be documented in an alternate sectionGoals may be documented in an alternate sectionGoals may be documented in an alternate sectionGoals may be documented in an alternate sectionGoals may be documented in an alternate sectionGoals may be documented in an alternate sectionGoals may be documented in an alternate sectionGoals may be documented in an alternate sectionGoals may be documented in an alternate sectionGoals may be documented in an alternate sectionGoals may be documented in an alternate sectionGoals may be documented in an alternate sectionGoals may be documented in an alternate sectionGoals may be documented in an alternate sectionGoals may be documented in an alternate sectionGoals may be documented in an alternate sectionGoals may be documented in an alternate sectionGoals may be documented in an alternate sectionGoals may be documented in an alternate sectionGoals may be documented in an alternate sectionGoals may be documented in an alternate sectionGoals may be documented in an alternate sectionGoals may be documented in an alternate section Care Teams (unrecognized sec tion and content) Team Status: Active Member Role Status Dates Dr. Donato Sepulveda MD Primary Care Provider Active Team Status: Active Member Role Status Dates Dr. Basilio Flores MD Primary Care Provider Active Start: June 09, 2024 Donato COLVIN MD Attending Provider Active Start: June 09, 2024 Team Status: Active Member Role Status Dates Dr. Basilio Flores MD Primary Care Provider Active Start: June 15, 2024 Donato COLVIN MD Attending Provider Active Start: June 15, 2024 Team Status: Inactive Member Role Status Dates Dr. Basilio Flores MD Primary Care Provider Active Start: June 26, 2024 End: June 26, 2024 Debora Schneider DIRECTOR GOVERNMENT, DIRECTOR GOVERNMENT-C Attending Provider Active Start: June 26, 2024 End: June 26, 2024 Team Status: Inactive Member Role Status Dates Dr. Basilio Flores MD Primary Care Provider Active Start: July 14, 2024 End: July 14, 2024 Donato COLVIN MD Attending Provider Active Start: July 14, 2024 End: July 14, 2024 Donato COLVIN MD Referring Provider Active Start: July 14, 2024 End: July 14, 2024 Team Status: Inactive Member Role Status Dates Dr. Basilio Flores MD Primary Care Provider Active Start: July 14, 2024 End: July 14, 2024 Dr. Donato Sepulveda MD Attending Provider Active Start: July 14, 2024 End: July 14, 2024 Team Status: Inactive Member Role Status Dates Dr. Basilio Flores MD Primary Care Provider Active Start: July 15, 2024 End: July 15, 2024 Donato COLVIN MD Attending Provider Active Start: July 15, 2024 End: July 15, 2024 Team Status: Inactive Member Role Status Dates Dr. Donato Sepulveda MD Primary Care Provider Active Start: August 17, 2024 End: August 17, 2024 Debora Schneider DIRECTOR GOVERNMENT, DIRECTOR GOVERNMENT-C Attending Provider Active Start: August 17, 2024 End: August 17, 2024 Team Status: Inactive Member Role Status Dates Dr. Armando Rich MD Attending Provider Active Start: August 24, 2024 End: August 24, 2024 Dr. Armando Rich MD Referring Provider Active Start: August 24, 2024 End: August 24, 2024 Dr. Donato Sepulveda MD Primary Care Provider Active Start: August 24, 2024 End: August 24, 2024 Debora Schneider DIRECTOR GOVERNMENT, DIRECTOR GOVERNMENT-C Other Provider Active S tart: August 24, 2024 End: August 24, 2024 Team Status: Inactive Member Role Status Dates Dr. Donato Sepulveda MD Primary Care Provider Active Start: August 25, 2024 End: August 25, 2024 Donato COLVIN MD Attending Provider Active Start: August 25, 2024 End: August 25, 2024 Donato COLVIN MD Referring Provider Active Start: August 25, 2024 End: August 25, 2024 Team Status: Active Member Role Status Dates Dr. Donato Sepulveda MD Primary Care Provider Active Start: September 08, 2024 Donato COLVIN MD Attending Provider Active Start: September 08, 2024 Team Status: Active Member Role Status Dates Dr. Basilio Flores MD Family Provider Active Dr. Basilio Flores MD Primary Care Provider Active Team Status: Inactive Member Role Status Dates Dr. Basilio Flores MD Primary Care Provider Active Debora Schneider DIRECTOR GOVERNMENT, DIRECTOR GOVERNMENT-C Attending Provider Active Team Status: Inactive Member Role Status Dates Dr. Basilio Flores MD Primary Care Provider Active Dr. Donato Sepulveda MD Attending Provider Active Team Status: Inactive Member Role Status Dates Dr. Basilio Flores MD Primary Care Provider Active Basilio Flores MD Attending Provider Active Team Status: Inactive Member Role Status Dates Dr. Basilio Flores MD Primary Care Provider Active Donato Sepulveda MD Attending Provider Active Team Status: Inactive Member Role Status Dates Dr. Basilio Flores MD Primary Care Provider Active Basilio COLVIN MD Attending Provider Active Team Status: Inactive Member Role Status Dates Dr. Basilio Flores MD Primary Care Provider Active Donato COLVIN MD Attending Provider Active Team Status: Active Member Role Status Dates Dr. Basilio Flores MD Primary Care Provider Active Donato COLVIN MD Attending Provider Active Team Status: Active Member Role Status Dates Dr. Basilio Flores MD Primary Care Provider Active Basilio COLVIN MD Attending Provider Active Team Status: Inactive Member Role Status Dates Dr. Basilio Flores MD Primary Care Provider Active Dr. Colleen Walker DO Emergency Provider Active Team Status: Inactive Member Role Status Dates Dr. Basilio Flores MD Primary Care Provider Active Dr. Colleen Walker DO Attending Provider, Emergency P rovider Active Team Status: Inactive Member Role Status Dates Dr. Basilio Flores MD Primary Care Provider Active Dr. Lam Guallpa DO Attending Provider, Emergency P rovider Active Team Status: Active Member Role Status Dates Dr. Basilio Flores MD Primary Care Provider Active Start: April 21, 2024 Donato COLVIN MD Attending Provider Active Start: April 21, 2024 Team Status: Inactive Member Role Status Dates Dr. Basilio Flores MD Primary Care Provider Active Start: May 19, 2024 End: May 19, 2024 Dr. Donato Sepulveda MD Attending Provider Active Start: May 19, 2024 End: May 19, 2024 Team Status: Inactive Member Role Status Dates Dr. Basilio Flores MD Primary Care Provider Active Start: June 01, 2024 End: June 01, 2024 Debora Schneider DIRECTOR GOVERNMENT, DIRECTOR GOVERNMENT-C Attending Provider Active Start: June 01, 2024 End: June 01, 2024 Team Status: Inactive Member Role Status Dates Dr. Basilio Flores MD Primary Care Provider Active Start: June 02, 2024 End: June 02, 2024 Donato COLVNI MD Attending Provider Active Start: June 02, 2024 End: June 02, 2024 Team Status: Active Member Role Status Dates Dr. Basilio Flores MD Primary Care Provider Active Start: July 14, 2024 Donato COLVIN MD Attending Provider Active Start: July 14, 2024 Donato COLVIN MD Referring Provider Active Start: July 14, 2024 Team Status: Inactive Member Role Status Dates Dr. Donato Sepulveda MD Primary Care Provider Active Start: September 08, 2024 End: September 08, 2024 Donato COLVIN MD Attending Provider Active Start: September 08, 2024 End: September 08, 2024 Team Status: Active Member Role Status Dates Dr. Donato Sepulveda MD Primary Care Provider Active Start: October 06, 2024 Donato COLVIN MD Attending Provider Active Start: October 06, 2024 INFORMATION SOURCE (unrecogn ized section and content) DATE CREATED AUTHOR 10/09/2024 [facility] FOR RECORDS PERTAINING TO PATIENTS WHO ARE [...] BE BASED ON THE PRIMARY CLINICAL RECORDS. Alexandre de [facility]. provides no warranty or guarantee of the accuracy or completeness of information in this document.
[2024-10-18 17:46] LABS: Absolute Lymphocyte Count 0.94 X10^3/uL (0.83-4.51); Absolute Neutrophil Count 17.9 X10^3/uL (2.0-7.7); Basophil# 0.06 X10^3/uL; Basophil% 0.3 % (0-1); Eosinophil# 0.01 X10^3/uL; Eosinophils% 0.1 % (0-5); Hemoglobin 15.5 g/dL (12.0-15.0); Lymphocyte # 0.94 X10^3/ul (0.83-4.51); Lymphocyte % 4.7 % (19-41); Mean Corp Hgb Conc 32.3 g/dL (32-36); Mean Corpuscular Hgb 29.4 pg (27.0-32.0); Mean Corpuscular Volume 90.9 fL (81-99); Mean Platelet Vol. 10.2 fl (6.2-12.0); Monocyte# 0.96 X10^3/uL; Monocyte% 4.8 % (0-10); NRBC Flagged by Analyzer 0 % (0-5); Neutrophil # 17.87 X10^3/uL (2.7-7.7); Neutrophil % 89.4 % (47-70); Platelet Count 326 K/mm3 (150-450); RBC Distribution Width CV 12.9 % (11.6-14.6); Red Blood Count 5.28 M/mm3 (4.2-5.4)
[2024-10-18 18:01] LABS: Bedside Glucose 72 mg/dL (74-106)
[2024-10-18] MEDS: Sodium Chloride 19.25 MEQ in Dextrose 10%-Water 250 ML 125 MEQ IV ×3 (18:34→23:16)
[2024-10-18 18:54] LABS: ALB/GLOB Ratio 1.4 RATIO (0.9-2.4); AST(SGOT) 34 U/L (<=31); Alanine Aminotransfer ALT/SGPT 13 U/L (<=34); Albumin, Serum 4.7 g/dL (3.4-4.8); Alkaline Phosphatase 60 U/L (35-104); Anion Gap 17 (5-15); BUN 11 mg/dL (4-19); BUN/Creat Ratio 17.1 RATIO (10-20); Carbon Dioxide 24.5 mmol/L (21.0-32.0); Chloride 102 mmol/L (98-108); Creatinine, Serum 0.64 mg/dL (0.70-1.20); EST Glomerular Filtration Rate 88 (>60); Estimated Creatinine Clearance 42.88 ml/min (50-250); Globulin 3.3 g/dL (2.2-4.2); Potassium 3.2 mmol/L (3.3-5.1); Sodium Level 143 mmol/L (133-145); Total Bilirubin 0.33 mg/dL (0.00-1.30)
[2024-10-18 19:15] LABS: Bedside Glucose 98 mg/dL (74-106)
[2024-10-18 19:57] LABS: Mucous, Urine 0 SEEN /hpf (<or=2+); Red Blood Cells-Urine 0 SEEN /hpf (0-5)
[2024-10-18 20:05] LABS: Color, Urine Yellow (Yellow); Glucose, Dipstick 1000 mg/dl (Normal); Ketone-Dipstick Negative (Negative); Leukocyte Esterase-Dipstick 25 /ul (Negative); Nitrite-Dipstick Positive (Negative); Occult Blood-Urine 25 /ul (Negative); Protein-Dipstick 30 mg/dl (Negative); Specific Gravity, Urine 1.015 (1.002-1.030); Urine Bilirubin Dipstick Negative (Negative); Urine Clarity Clear (Clear); Urine Urobilinogen Normal (Normal); Urine pH 6.5 (5.0 - 8.0)
[2024-10-18 20:16] LABS: Bacteria 4+ /hpf (None Seen); Squamous Epithelial Cells - UA 0-5 SEEN /hpf (5-10); White Blood Cells 10-25 SEEN /hpf (0-5)
[2024-10-18 20:26] LABS: Bedside Glucose 119 mg/dL (74-106)
[2024-10-18] MEDS: Acetaminophen 500 MG Tablet 1000 MG PO ×2 (20:43→23:17)
[2024-10-18] MEDS: Ceftriaxone 1 GM/50 ML BAG IV (20:52)
[2024-10-18 20:53] LABS: Prothrombin Time (Protime)PT. 13.4 SECONDS (11.7-14.9)
--- NOTE | 2024-10-18 21:08 | PCM.HP.STD ---
HPI - General General Date of Admission: 10/18/24 Date of Service: 10/18/24 Chief Complaint: Fall/altered mental status HPI Narrative MINDY CHINCHILLA, is a 84 F who presented to the emergency department at [facility] on 10/18/2024 with chief complaint of head trauma after a fall and altered mental status. Patient had an unwitnessed fall was found on the ground. She had a forehead hematoma with a small laceration as well as a skin tear on her left arm. She was noted to be markedly confused so the EMS was called. Blood sugar was assessed on arrival and was 32 patient was diaphoretic at that time as well. She was treated by the squad and after arrival to the emergency department she was more alert but still somewhat confused. By the time we were able to evaluate her she was very talkative and back to normal as she had been treated with dextrose via IV. She has baseline confusion per family and seems to be at her baseline at the time of my admission. She does have a history of diabetes and takes quite a bit of medication. Family reports that her oral intake is poor at the nursing facility. Patient states the food is terrible. Patient unable to remember when the last time she ate today was. Vital signs on presentation showed temperature 97.9, heart rate 91, respiratory 13, blood pressure was 162/92 and pulse ox was 100% room air. CBC did show significant leukocytosis with a white count of 20,000. She does seem to be hemoconcentrated as her hemoglobin was also are elevated compared to her baseline from just about a week ago at 15.5 with her hemoglobin a week ago being 11.9. She does have a left shift with an 89.4% neutrophilia. Coags are normal. Chemistry panel shows mild hypokalemia with potassium of 3.2. Slight anion gap at 17 with a normal CO2. Renal function is normal. Glucose on BMP was 16. Lactic acid was 2.8. Liver functions are unremarkable. Urine is suggestive of infection and some dehydration with nitrite, leuk esterase, white cells, and 4+ bacteria. CT of the brain shows no acute infarct, cranial hemorrhage or mass effect. There are no signs of normal pressure hydrocephalus and mild to moderate chronic microvascular changes without area of mild anterior frontal scalp swelling. In the emergency department she was put on a D10 drip with improvement of her blood sugars. As her blood sugar improved her mentation improved as well. By the time of admission family thought that she was close to her baseline mentation. [facility] Medical History (Updated 10/18/24 @ 21:[address] Anali Coello, ) Parkinson disease Pain in both knees Vision problems Skin cancer GERD (gastroesophageal reflux disease) Osteopenia Osteoarthritis Neuropathy Heart murmur Liver disease Recurrent infections Hives High cholesterol HTN (hypertension) Chronic headaches Gallstones Type 2 diabetes mellitus Cataracts, bilateral Bladder cancer Recurrent UTI Back problem Asthma Arthritis Anxiety and depression Home Medications ?Medication ?Instructions ?Recorded ?Last Taken ?Type acetaminophen 325 mg tablet 325 mg PO BID CHRONIC PAIN 09/20/17 08/24/24 History dapagliflozin propanediol 10 mg 10 mg PO DAILY 06/05/23 08/24/24 History tablet (Farxiga) furosemide 20 mg tablet 20 mg PO DAILY 06/05/23 08/24/24 History linaclotide 290 mcg capsule 290 mcg PO DAILY 06/05/23 08/24/24 History (Linzess) potassium chloride 20 mEq 40 meq PO DAILY 06/05/23 08/24/24 History tablet,extended release(part/cryst) glucagon 1 mg solution for 1 mg IM PRN 06/08/23 Unknown History injection (Glucagon Emergency Kit) insulin glargine 100 unit/mL (3 43 unit subcut DAILY 06/08/23 08/24/24 History mL) subcutaneous pen (Lantus Solostar U-100 Insulin) dulaglutide 4.5 mg/0.5 mL 4.5 mg subcut QWEEK 08/24/24 08/19/24 History subcutaneous pen injector (Trulicity) oxycodone 5 mg tablet 5 mg PO BID pain 30 days #60 tabs 09/29/24 Unknown Rx acetaminophen 325 mg tablet 650 mg PO Q4H PRN fever or pain 10/18/24 Unknown History aluminum-mag hydroxide-simethicone 15 ml PO Q4H PRN indigestion 10/18/24 Unknown History 400 mg-400 mg-40 mg/5 mL oral susp (Advanced Antacid-Antigas) cholecalciferol (vitamin D3) 50 50 mcg PO DAILY 10/18/24 Unknown History mcg (2,000 unit) tablet (D3 DOTS) dextran 70-hypromellose 0.1 %-0.3 1 drp EACH EYE BID 10/18/24 Unknown History % eye drops (GenTeal Tears Mild) metformin 1,000 mg tablet 1,000 mg PO BID 10/18/24 Unknown History ondansetron 4 mg disintegrating 4 mg PO Q6H PRN nausea and vomiting 10/18/24 Unknown History tablet polyethylene glycol 3350 17 17 g PO QODAY 10/18/24 Unknown History gram/dose oral powder (ClearLax) Allergy/AdvReac Type Severity Reaction Status Date / Time sulfamethoxazole (From Allergy Rash Verified 08/24/24 08:34 Bactrim) trimethoprim (From Bactrim) Allergy Rash Verified 08/24/24 08:34 carbidopa (From Sinemet) AdvReac Nausea Verified 08/24/24 08:34 hydrocodone bitartrate (From AdvReac Nausea Verified 08/24/24 08:34 Vicodin) ketoprofen (From Orudis) AdvReac Unknown Verified 08/24/24 08:34 levodopa (From Sinemet) AdvReac Nausea Verified 08/24/24 08:34 lorazepam (From Ativan) AdvReac hallucinati Verified 08/24/24 08:34 on metformin HCl (From AdvReac Nausea Verified 08/24/24 08:34 Glucophage) naloxone AdvReac Nausea Verified 08/24/24 08:34 NSAIDS (Non-Steroidal AdvReac PT UNSURE Verified 08/24/24 08:34 Anti-Inflamma OF REACTION oxaprozin (From Daypro) AdvReac Nausea Verified 08/24/24 08:34 oxycodone HCl (From Percocet) AdvReac Nausea Verified 08/24/24 08:34 propoxyphene HCl (From AdvReac Nausea Verified 08/24/24 08:34 Darvon) rofecoxib (From Vioxx) AdvReac Nausea Verified 08/24/24 08:34 rosiglitazone maleate (From AdvReac Nausea Verified 08/24/24 08:34 Avandia) sertraline HCl (From Zoloft) AdvReac haullucinat Verified 08/24/24 08:34 ion simvastatin (From Zocor) AdvReac Nausea Verified 08/24/24 08:34 venlafaxine HCl (From AdvReac Nausea Verified 08/24/24 08:34 Effexor) Family History Unknown Asthma Arthritis Cancer Diabetes Heart disease Hypertension High cholesterol Kidney stones Liver disease Osteoporosis Skin cancer CVA (cerebral vascular accident) Surgical History (Updated 10/18/24 @ 21:[address] Anali Coello DO) Total knee replacement status Social History Smoking Status: Never smoker second hand exposure: No alcohol intake: never substance use type: does not use ROS Constitutional Constitutional: Denies anorexia, change in weight, chills, fatigue, fever(s), malaise, night sweats, weakness or other Eyes Eyes: Denies blurry vision, change in eye color, change in vision, discharge from eye(s), double vision, erythema, eye pain, loss of vision or other ENT HEENT: Reports abnormal hearing and headache(s); Denies dysphagia, ear pain, epistaxis, hearing loss, nasal congestion, nasal discharge, post nasal drip, sinus pressure, sore throat or other Cardiovascular Cardiovascular: Denies chest pain, claudication, dyspnea on exertion, edema, lightheadedness, orthopnea, palpitations, paroxysmal nocturnal dyspnea, rapid heart rate, syncope or other Respiratory/Chest Respiratory/Chest: Denies cough, dyspnea, excessive phlegm production, hemoptysis, productive cough, shortness of breath at rest, shortness of breath with exertion, wheezing or other Gastrointestinal Gastrointestinal: Denies abdominal pain, coffee ground emesis, constipation, diarrhea, dyspepsia, hematemesis, hematochezia, loose stools, melena, nausea, vomiting or other Genitourinary Genitourinary: Reports urinary frequency and urinary incontinence; Denies burning urination, difficulty urinating, dysuria, hematuria, nocturia, urinary hesitancy, urinary urgency or other Musculoskeletal Musculoskeletal: Reports joint pain and joint stiffness; Denies arthralgias, back pain, joint swelling, myalgias, neck pain or other Neurologic Neurologic: Reports abnormal gait and headache(s); Denies abnormal speech, confusion, disequilibrium, dizziness, focal weakness, numbness, paresthesias, seizure-like activity, seizures, syncope, tingling, tremor(s) or other Psychiatric Psychiatric: Denies anxiety, depression, homicidal ideation, suicidal ideation or other Endocrine Endocrinology: Denies change in body appearance, cold intolerance, excessive sweating, heat intolerance, polydipsia, polyuria or other Hematologic/Lymphatic Hematologic/Lymphatic: Denies anemia, easy bleeding, easy bruising, lymphadenopathy or other Allergic/Immunologic Allergic/Immunologic: Denies rhinitis, hives, eczemia, asthma or other Vital Signs Vital Signs Vital Signs: 10/18/24 16:46 10/18/24 16:51 10/18/24 16:54 Temperature 97.9 F Temperature Source Temporal Pulse Rate 91 Respiratory Rate 13 Respiratory Effort Normal Non-Labored Normal Non-Labored Respiratory Depth Normal Respiratory Pattern Normal Normal Blood Pressure 162/92 H Blood Pressure Mean 115 Pulse Ox 100 Oxygen Delivery Method Room Air Room Air 10/18/24 17:46 10/18/24 18:00 10/18/24 19:00 Temperature Temperature Source Pulse Rate 71 74 71 Respiratory Rate 14 16 18 Respiratory Effort Respiratory Depth Respiratory Pattern Blood Pressure 202/122 H 172/72 H 164/76 H Blood Pressure Mean 148 105 105 Pulse Ox 97 99 98 Oxygen Delivery Method Room Air 10/18/24 20:00 10/18/24 20:50 10/18/24 20:51 Temperature 97.4 F L 97.6 F L Temperature Source Temporal Pulse Rate 80 80 Respiratory Rate 16 18 16 Respiratory Effort Respiratory Depth Respiratory Pattern Blood Pressure 156/63 H 174/81 H 174/81 H Blood Pressure Mean 94 112 112 Pulse Ox 97 93 93 Oxygen Delivery Method Room Air Weight Weight: 56.2 kg Body Mass Index (BMI) 22.6 Physical Exam Const alert, oriented x3, no apparent distress and average body habitus; Negative for healthy appearing or well nourished Constitutional Narrative: Frail-appearing, nontoxic, elderly, white female, lying in right side-lying in bed appears comfortable, nontoxic, family at bedside General Appearance: cooperative HEENT normocephalic; Negative for head/scalp atraumatic HEENT Narrative: Large hematoma central forehead with overlying superficial vertical laceration, no more bleeding, mild to moderate hearing loss, dentition is 4, Mallampati is 2, no thrush, mucous membranes are moist Eyes EOMs intact bilaterally and conjunctivae normal Eyes Narrative: No scleral icterus Neck supple Neck Narrative: Trachea midline, trachea midline, no thyroid enlargement Resp normal respiratory effort, no retractions, no use of accessory muscles and clear to auscultation bilaterally Auscultation: Negative for rales, rhonchi or wheezes Cardio regular rate, regular rhythm, S1 normal heart sound, S2 normal heart sound, no murmurs, no rub, no gallops and no clicks GI normal to inspection, nondistended, normoactive bowel sounds, soft to palpation and non-tender Extremity Extremity Narrative: Trace chronic bilateral lower extremity edema that is nonpitting, no clubbing or cyanosis Skin Skin Narrative: Abrasion on arm, multiple areas of ecchymotic changes on lower extremities and very stages of healing Neuro oriented x3 and moves all extremities Neuro Narrative: Significant generalized weakness noted no focal deficits Speech: speech normal Psych affect normal Psych Narrative: Very pleasant, interacts appropriately Results Lab / Micro Data 10/18/24 16:30 10/18/24 16:30 Labs: Laboratory Results - last 24 hr 10/18/24 16:30: WBC 20.0 H, RBC 5.28, Hgb 15.5 H, Hct 48.0 H, MCV 90.9, MCH 29.4, MCHC 32.3, RDW Std Deviation 43.0, RDW Coeff of [place] 12.9, Plt Count 326, MPV 10.2, Immature Gran % (Auto) 0.700, Neut % (Auto) 89.4 H, Lymph % (Auto) 4.7 L, [place] % (Auto) 4.8, Eos % (Auto) 0.1, Baso % (Auto) 0.3, Absolute Neuts (auto) 17.9 H, Absolute Lymphs (auto) 0.94, Nucleated RBC % 0, Sodium 143, Potassium 3.2 L, Chloride 102, Carbon Dioxide 24.5, Anion Gap 17 H, BUN 11, Creatinine 0.64 L, Estim Creat Clear Calc 42.88 L, Est GFR (MDRD) Non-Af 88, BUN/Creatinine Ratio 17.1, Glucose 16 L*, Calcium 10.0, Total Bilirubin 0.33, AST 34 H, ALT 13, Alkaline Phosphatase 60, Total Protein 8.0, Albumin 4.7, Globulin 3.3, Albumin/Globulin Ratio 1.4 10/18/24 17:05: POC Glucose 82 10/18/24 17:39: POC Glucose 72 L 10/18/24 18:57: POC Glucose 98 10/18/24 19:41: Urine Color Yellow, Urine Clarity Clear, Urine pH 6.5, Ur Specific Melbeta 1.015, Urine Protein 30 H, Urine Glucose (UA) 1000 H, Urine Ketones Negative, Urine Occult Blood 25 H, Urine Nitrite Positive H, Urine Bilirubin Negative, Urine Urobilinogen Normal, Ur Leukocyte Esterase 25 H, Urine RBC 0 SEEN, Urine WBC 10-25 SEEN, Ur Squamous Epith Cells 0-5 SEEN, Urine Bacteria 4+, Urine Mucus 0 SEEN 10/18/24 20:07: POC Glucose 119 H 10/18/24 20:34: PT 13.4, INR 1.0 Imaging Radiology Impression Brain CT 10/18/24 17:01 IMPRESSION: No acute intracranial process. Mild anterior frontal scalp swelling. No acute calvarial defect. Reading Location: [facility] Assessment & Plan Assessment/Plan (1) Skin tear of forearm without complication: (2) Diabetic hypoglycemia: (3) Fall: (4) Traumatic hematoma of forehead: (5) Abrasion of forehead: PLAN: Plan Altered mental status secondary to severe hypoglycemia - Blood sugar on [facility] at presentation was 19 - Dextrose drip started by the emergency department and will continue - Once blood sugars start to stabilize we will be able to stop drip and continue to trend every 2 hours - If remains stable off drip will institute sliding scale insulin but hold off any scheduled insulin - Patient is on a significant amount of medication for her diabetes with pretty poor p.o. intake per family - Takes Jardiance 10 mg daily, metformin 1000 mg p.o. twice daily, Lantus 43 units subcu daily, and Trulicity weekly 4.5 mg - Suspect this will need to be drastically altered prior to discharge Adverse medication reaction - Secondary to antihyperglycemic's - Regimen will need markedly altered prior to discharge Traumatic hematoma forehead/abrasion - Overlying superficial White laceration - No sutures needed - Consult wound nurse - Apply ice Falls/generalized weakness - Suspect multifactorial -PT/OT consultation - Case management/social work consultation - Patient currently resides at [facility] DM2 - Hold all home antidiabetic agents - Will need marked adjustment of her diabetes medications prior to discharge - Patient did have hemoglobin A1c here on 10/06/2024 that was 9.5 - Once off dextrose drip will start SSI - Patient on generalized diet for now and will likely condition you during her hospitalization to encourage p.o. intake as she seems to be malnourished Parkinson's disease - Currently on no medication for this next-PT/OT consultation Essential hypertension - Continue home Lasix - Blood pressure is markedly elevated in the emergency department - May need additional medications for improved blood pressure control - Hydralazine 10 every 6 as needed for systolic pressure greater than 160s available History of bladder cancer - Remote Irritable bowel syndrome - Hold medication restart at discharge Chronic pain - Continue home oxycodone - Scheduled Tylenol 1000 mg 3 times daily Chronic constipation - Continue home MiraLAX Mild cognitive impairment - Patient is back to baseline at the time of admission family does admit to some mild memory loss at baseline DVT prophylaxis - Subcu Lovenox daily CODE STATUS - DNR CC-patient is enrolled in palliative care but not hospice at this time family would like to pursue palliative care Charges/Coding Visit Charges Inpatient E&M: 05113 Init Hosp L2
[2024-10-18 21:24] LABS: Lactic Acid 2.8 mmol/L (0.0-2.0)
--- OUTSIDE RECORDS SUMMARY | 2024-10-18 21:32 | XMS RPT_ITS | CCD ---
Author Organization [facility] Care Team Providers Care Transfer Driver Name Role Phone Trent HILARIO, Rachael Sarabia Unavailable Dr. Basilio Flores Primary Care Provider Tickangelic AUTO BODY CUSTOMIZER, AUTO BODY CUSTOMIZER-C Debora Attending Provider Dr. Basilio Anderson Primary Care Provider Dr. Basilio Flores Primary Care Provider Tickton AUTO BODY CUSTOMIZER, AUTO BODY CUSTOMIZER-C Debora Attending Provider Dr. Basilio Anderson Primary Care Provider Tickton AUTO BODY CUSTOMIZER, AUTO BODY CUSTOMIZER-C Debora Attending Provider Dr. Basilio Anderson Primary Care Provider Dr. Donato Sepulveda Attending Provider Tickton AUTO BODY CUSTOMIZER, AUTO BODY CUSTOMIZER-C Debora Attending Provider Dr. Basilio Anderson Primary Care Provider Dr. Donato Sepulveda Attending Provider Tickton AUTO BODY CUSTOMIZER, AUTO BODY CUSTOMIZER-C Debora Attending Provider Dr. Basilio Anderson Primary Care Provider Tickton AUTO BODY CUSTOMIZER, AUTO BODY CUSTOMIZER-C Debora Attending Provider Dr. Donato Centeno Attending Provider [phone] Dr. Basilio Flores Primary Care Provider Tickton AUTO BODY CUSTOMIZER, AUTO BODY CUSTOMIZER-C Debora Attending Provider Dr. Donato Centeno Attending Provider Dr. Basilio Flores Primary Care Provider Tickton AUTO BODY CUSTOMIZER, AUTO BODY CUSTOMIZER-C Debora Attending Provider Dr. Basilio Anderson Primary Care Provider Tickton AUTO BODY CUSTOMIZER, AUTO BODY CUSTOMIZER-C Debora Attending Provider Dr. Donato Sepulveda Attending Provider Dr. Basilio Flores Primary Care Provider Tickton AUTO BODY CUSTOMIZER, AUTO BODY CUSTOMIZER-C Debora Attending Provider Dr. Donato Sepulveda Attending Provider Dr. Basilio Flores MD Primary Care Provider Donato Sepulveda MD Attending Provider UnavailDr. Donato Guevara MD Attending Provider Wyatt AUTO BODY CUSTOMIZER-C, Debora Attending Provider Donato Sepulveda MD Referring Provider Unavailyifan Flores MD, Dr. Basilio Mckenna Primary Care Provider Donato Sepulveda MD Attending Provider UnavailDr. Armando Elizabeth MD Attending Provider Dr. Armando Rich MD Referring Provider Derick HILARIO, Dr. Sewell Primary Care Provider Wyatt AUTO BODY CUSTOMIZER-C, Debora Other Provider Dr. Basilio Flores MD Primary Care Provider Donato Sepulveda MD Attending Provider Unavaila keli Schneider AUTO BODY CUSTOMIZER-C, Debora Attending Provider Dr. Donato Sepulveda MD Attending Provider Dr. Donato Sepulveda MD Primary Care Provider Basilio Flores Primary Care Unavailable Tickton AUTO BODY CUSTOMIZER, Debora Attending Unavailable Basilio Flores Primary Care Unavailable Donato Sepulveda Attending Unavailable Tickton AUTO BODY CUSTOMIZER, Debora Attending Unavailable Basilio Flores Primary Care Unavailable Donato Moss Attending UnavailBasilio Solo Primary Care Unavailable Oleghe OLS, Efewongbe Attending Unavailabl e Flores, Basilio K Primary Care Unavailable Oleghe OLS, Efewongbe Referring Unavailabl e Oleghe OLS, Efewongbe Attending Unavailabl e Oleghe, Efewongbe Primary Care Unavailable Oleghe OLS, Efewongbe Attending Unavailabl e Oleghe, Efewongbe Primary Care Unavailable Flores, Basilio K Primary Care Unavailable Tickton AUTO BODY CUSTOMIZER, Debora Attending Unavailable Flores, Basilio K Primary [...] Unavailable Oleghe, Efewongbe Primary Care Unavailable Tickton AUTO BODY CUSTOMIZER, Debora Consulting Unavailable Armando Rich Referring Unavailable Armando Rich Attending Unavailable Oleghe OLS, Efewongbe Attending Unavailabl e Flores, Basilio K Primary Care Unavailable Flores, Basilio K Primary Care Unavailable Oleghe OLS, Efewongbe Attending Unavailabl e Flores, Basilio K Primary Care Unavailable Tickton AUTO BODY CUSTOMIZER, Debora Attending Unavailable Flores, Basilio K Primary [...] Care Unavailable Oleghe, Efewongbe Attending Unavailable Tickton AUTO BODY CUSTOMIZER, Debora Attending Unavailable Oleghe, Efewongbe Primary Care Unavailable Tickton AUTO BODY CUSTOMIZER, Debora Attending Unavailable Flores, Basilio K Primary Care Unavailable Tickton AUTO BODY CUSTOMIZER, Debora Attending Unavailable Flores, Basilio K Primary Care Unavailable Flores, Basilio K Primary Care Unavailable Oleghe, Efewongbe Attending Unavailable Tickton AUTO BODY CUSTOMIZER, Debora Attending Unavailable Flores, Basilio K Primary Care Unavailable Mark HILARIO, Dr. Basilio Mckenna Primary Care Provider [phone] Donato Sepulveda MD Attending Provider Unavaila ble Allergies Allergy Classification Reported Allergen(s) Allergy Type Date of Onset Reaction(s) Facility (1 source) Acetaminophen / HYDROcodone Drug Allergy unknown [facility] Work Phone: (1 source) Acetaminophen / oxyCODONE Drug Allergy unknown [facility] Work Phone: (1 source) Acetaminophen / Propoxyphene Drug Allergy unknown [facility] Work Phone: (1 source) Baclofen Drug Allergy unknown [facility] Work Phone: (1 source) Carbidopa / Levodopa Drug Allergy unknown [facility] Work Phone: (1 source) Ibuprofen Drug Allergy kidney disease [facility] Work Phone: (1 source) Ketoprofen Drug Allergy unknown [facility] Work Phone: (1 source) LORazepam Drug Allergy unknown [facility] Work Phone: (1 source) metFORMIN Drug Allergy unknown [facility] Work Phone: (20 sources) Naloxone; Translations: [naloxone] Drug Allergy 018 unknown, Nausea [facility] Work Phone: (1 source) oxaprozin Drug Allergy unknown [facility] Work Phone: (1 source) rofecoxib Drug Allergy unknown [facility] Work Phone: (1 source) rosiglitazone Drug Allergy siblings had severe reactions [facility] Work Phone: (1 source) Sertraline Drug Allergy unknown [facility] Work Phone: (1 source) Simvastatin Drug Allergy unknown [facility] Work Phone: (1 source) Sulfamethoxazole / Trimethoprim Drug Allergy unknown [facility] Work Phone: (1 source) venlafaxine; Translations: [EFFEXOR] Drug Allergy unknown [facility] Work Phone: (20 sources) Carbidopa Drug Allergy 018 Nausea [facility] (20 sources) HYDROcodone; Translations: [hydrocodone bitartrate] Drug Allergy Nausea [facility] (20 sources) Ketoprofen Drug Allergy 018 Unknown [facility] (20 sources) Levodopa Drug Allergy 018 Nausea [facility] (20 sources) LORazepam Drug Allergy 018 hallucination [facility] (20 sources) metFORMIN; Translations: [metformin HCl] Drug Allergy 018 Nausea [facility] (20 sources) oxaprozin Drug Allergy Nausea [facility] (20 sources) oxyCODONE; Translations: [oxycodone HCl] Drug Allergy 018 Nausea [facility] (20 sources) Propoxyphene; Translations: [propoxyphene HCl] Drug Allergy 018 Nausea [facility] (20 sources) rofecoxib Drug Allergy 018 Nausea [facility] (20 sources) rosiglitazone; Translations: [rosiglitazone maleate] Drug Allergy Nausea [facility] (20 sources) Sertraline; Translations: [sertraline HCl] Drug Allergy 018 haullucination [facility] (20 sources) Simvastatin Drug Allergy 018 Nausea [facility] (20 sources) Sulfamethoxazole Drug Allergy Rash [facility] (20 sources) Trimethoprim Drug Allergy Rash [facility] (20 sources) venlafaxine; Translations: [venlafaxine HCl] Drug Allergy Nausea [facility] (20 sources) NSAIDS (Non-Steroidal Anti-Inflamma; Translations: [NSAIDS (Non-Steroidal Anti-Inflamma] Propensity to adverse reactions PT UNSURE OF REACTION [facility] (1 source) Carbidopa Drug Allergy [facility] (1 source) Ketoprofen Drug Allergy [facility] (1 source) Levodopa Drug Allergy [facility] (1 source) LORazepam Drug Allergy [facility] (1 source) oxaprozin Drug Allergy [facility] (1 source) rofecoxib Drug Allergy [facility] (1 source) Simvastatin Drug Allergy [facility] (1 source) Sulfamethoxazole Drug Allergy [facility] (1 source) Trimethoprim Drug Allergy [facility]ository Medications Current Medications Medication Drug Class(es) [...] night and 40mg twice daily FUROSEMIDE TABS [id number] Rachael Newman MD glucagon (rdna) 1 mg [...] takes 46 units twice daily INSULIN GLARGINE [id number] Rachael Newman MD Start: 04-06-2015 End: 09-26-2017 [...] June 05, 2023 12:00am polyethylene glycol 3350 93805 mg powder for oral solution (7 sources) [...] 06-05-2023 take 40 mEq by mouth once curly y Potassium Chloride Active 40 MEQ PO [...] tabs every 4 hours as needed ACETAMINOPHEN [id number] Rachael Newman MD Start: 09-20-2017 take 650 [...] as directed prior to dental procedures AMOXICILLIN [id number] Rachael Newman MD aspirin 325 mg oral [...] takes one tab once daily ATORVASTATIN CALCIUM [id number] Rachael Newman MD bacillus coagulans [id number] unt / inulin 250 mg oral capsule [...] TABS takes one tab daily DIPHENHYDRAMINE HCL [id number] Rachael Newman MD Start: 03-16-2019 BENADRYL ALLER GY 25 MG CAPS takes one tab once daily DIPHENHYDRAMINE HCL [id number] Rachael Newman MD doxepin hydrochloride 10 mg oral capsule (1 source) Tricyclic Antidepressant Start: 03-16-2019 DOXEPIN HCL 10 MG CAPS takes two tabs daily DOXEPIN HCL [id number] Rachael Newman MD famotidine 20 mg oral [...] CAPS takes one tab once daily GABAPENTIN [id number] Rachael Newman MD Insulin Glargine 100 UNIT/ML [...] sliding scale three times daily INSULIN ASPART [id number] Rachael Newman MD Start: 04-25-2015 End: 09-26-2017 [...] TABS takes one tab once daily LISINOPRIL [id number] Rachael Newman MD melatonin 3 mg oral tablet (20 sources) Start: 12-16-2019 End: 06-08-2023 take 1 tablet by mouth at bedtime Melatonin 3 MG tablet Discontinued 3 mg PO AT BEDTIME December 16, 2019 12:00am June 08, 2023 9:23am Start: 03-16-2019 MELATONIN 10 M G TABS takes one tab once daily MELATONIN [id number] Rachael Newman MD meloxicam 7.5 mg oral [...] CPDR takes one tab once daily OMEPRAZOLE [id number] Rachael Newman MD oxyCODONE hydrochloride 5 mg [...] three times daily as needed OXYCODONE HCL [id number] Rachael Newman MD Start: 07-14-2015 End: 09-20-2017 [...] takes one tab once daily RANITIDINE HCL [id number] Rachael Newman MD rOPINIRole 0.5 mg oral [...] 10-06-2024 Anion gap [Moles/Vol] 10 mmol/L 5-15 [facility] BUN/creatinine ratioOrdered By: Donato Sepulveda on 10-06-2024 Urea nitrogen/Creatinine [Mass ratio] 21.9 mg/mg High 10-20 [facility] Bilirubin directOrdered By: Donato Sepulveda on 10-06-2024 Bilirubin.direct [Mass/Vol] 0.11 mg/dL 0.00-0.30 [facility] Bilirubin, totalOrdered By: Donato Sepulveda on 10-06-2024 Bilirubin [Mass/Vol] 0.24 mg/dL 0.00-1.30 [facility] Calculated very low density lipoprotein (VLDL) cholesterol measurementOrdered By: Donato Sepulveda on 10-06-2024 Calculated very low density lipoprotein (VLDL) cholesterol measurement 14 mg/dL 5-40 [facility] Carbon dioxide, total [Moles /volume] in Central venous bloodOrdered By: Donato Sepulveda on 10-06-2024 CO2 [Moles/Vol] 29.2 mmol/L 21.0-32.0 [facility] Chloride assayOrdered By: Livier Sepulveda on 10-06-2024 Chloride [Moles/Vol] 99 mmol/L 98-108 [facility] Erythrocyte distribution wid th ratioOrdered By: [facility] Sepulveda on 10-06-2024 Erythrocyte distribution width (RBC) [Ratio] 12.8 % 11.6-14.6 [facility] Erythrocyte distribution wid th standard deviationOrdered By: tsudunsmuirchar Sepulveda on 10-06-2024 Erythrocyte distribution width (RBC) [Ratio] 43.8 fl 35.1-43.9 [facility] Glomerular filtration rate ( GFR) estimation/1.73 sq m using serum, plasma, or whole bOrdered By: Donato Sepulveda on 10-06-2024 GFR/1.73 sq M.predicted among non-blacks MDRD (S/P/Bld) [Vol rate/Area] 79 mL/min/{1.73_m2} >60 [facility] Comment on above: mL/min/1.73m2 CKD-EP I Creatinine Equation (2020) Hematocrit Auto (Bld) [Volum e fraction]Ordered By: Donato Sepulveda on 10-06-2024 Hematocrit (Bld) [Volume fraction] 37.1 % 37-47 [facility] Hemoglobin A1c percentageOrd ered By: balaji Sepulveda on 10-06-2024 HbA1c (Bld) [Mass fraction] 9.5 % High <5.7 [facility] Comment on above: Normal < 5.7 % Predi abetic 5.7 - 6.4 % Diabetic >or= 6.5 % Please note range changes. Hemoglobin measurementOrdere d By: Donato Sepulveda on 10-06-2024 Hemoglobin (Bld) [Mass/Vol] 11.9 g/dL Low 12.0-15.0 [facility] LDL calc ser/plasOrdered By: Donato Sepulveda on 10-06-2024 Cholesterol in LDL [Mass/Vol] 92 mg/dL [facility] Comment on above: Mttztuxafl=797-091 m g/dL & Higher Hpdu=035 mg/dL or greater Laboratory - Chemistry and C hemistry - challengeOrdered By: Donato Sepulveda on 10-06-2024 AST [Catalytic activity/Vol] 19 U/L <32 [facility] MCV (mean corpuscular volume ) determinationOrdered By: Donato Sepulveda on 10-06-2024 MCV (RBC) [Entitic vol] 92.8 fL 81-99 [facility] Mean corpuscular hemoglobin (MCH) determinationOrdered By: Donato Sepulveda on 10-06-2024 MCH (RBC) [Entitic mass] 29.8 pg 27.0-32.0 [facility] Mean corpuscular hemoglobin concentration (MCHC) determinationOrdered By: Donato Sepulveda on 10-06-2024 MCHC (RBC) [Mass/Vol] 32.1 g/dL 32-36 [facility] Mean platelet volume determi nationOrdered By: Donato Sepulveda on 10-06-2024 Platelet mean volume (Bld) [Entitic vol] 10.8 fL 6.2-12.0 [facility] Platelet countOrdered By: Livier Sepulveda on 10-06-2024 Platelets (Bld) [#/Vol] 182 10*3/uL 150-450 [facility] Potassium measurement (mass/ volume)Ordered By: Donato Sepulveda on 10-06-2024 Potassium (Unsp spec) [Mass/Vol] 4.3 mmol/L 3.3-5.1 [facility] RBC Auto (Bld) [#/Vol]Ordere d By: Donato Sepulveda on 10-06-2024 RBC (Bld) [#/Vol] 4.00 10*6/uL Low 4.2-5.4 [facility] Screening total cholesterol/ high density lipoprotein (HDL) cholesterol ratioOrdered By: Donato Sepulveda on 10-06-2024 Cholesterol.total/Choles terol in HDL [Mass ratio] 2.80 {ratio} [facility] Serum creatinine measurement (mass/volume)Ordered By: Donato Sepulveda on 10-06-2024 Creatinine [Mass/Vol] 0.75 mg/dL 0.70-1.20 [facility] Serum globulin measurementOr dered By: Donato Sepulveda on 10-06-2024 Globulin (S) [Mass/Vol] 2.3 g/dL 2.2-4.2 [facility] Serum glucose measurement (m ass/volume)Ordered By: Donato Sepulveda on 10-06-2024 Glucose [Mass/Vol] 232 mg/dL High 70-99 [facility] Serum or plasma alanine rivera otransferase (ALT) measurementOrdered By: Donato Sepulveda on 10-06-2024 ALT [Catalytic activity/Vol] 8 U/L <35 [facility] Serum or plasma albumin serge urement (mass/volume)Ordered By: Donato Sepulveda on 10-06-2024 Albumin [Mass/Vol] 3.7 g/dL 3.4-4.8 [facility] Serum or plasma alkaline stephane sphatase measurementOrdered By: Donato Sepulveda on 10-06-2024 ALP [Catalytic activity/Vol] 50 U/L 35-104 [facility] Serum or plasma calcium serge urement (mass/volume)Ordered By: Donato Sepulveda on 10-06-2024 Calcium [Mass/Vol] 9.1 mg/dL 7.6-11.0 [facility] Serum or plasma cholesterol in HDL measurement (mass/volume)Ordered By: Donato Sepulveda on 10-06-2024 Cholesterol in HDL [Mass/Vol] 59 mg/dL >40 [facility] Comment on above: National Cholesterol Education Program (NCEP) guidelines:<40 mg/dL: Low HDL-cholesterol (major risk factor for CHD)>= 60 mg/dL: High HDL-cholesterol (negative risk factor for CHD)HDL-cholesterol is affected by a number of factors, e.g. smoking, exercise, hormones, sex and age. Serum or plasma cholesterol measurement (mass/volume)Ordered By: Donato Sepulveda on 10-06-2024 Cholesterol [Mass/Vol] 164 mg/dL <201 [facility] Comment on above: Cholesterol level, D esirable <200 mg/dLBorderline high cholesterol 200-239 mg/dLHigh cholesterol >=240 mg/dLRecommendations of the NCEP Adult Treatment Panel for the following risk-cutoff thresholds for the [place] population. Serum or plasma urea nitroge n measurement (mass/volume)Ordered By: Donato Sepulveda on 10-06-2024 Urea nitrogen [Mass/Vol] 16 mg/dL 4-19 [facility] Sodium levelOrdered By: Raul wickjanelleruthann Sepulveda on 10-06-2024 Sodium [Moles/Vol] 138 mmol/L 133-145 [facility] Total proteinOrdered By: Sherwin Sepulveda on 10-06-2024 Protein [Mass/Vol] 6.0 g/dL 5.9-8.4 [facility] Triglycerides measurementOrd ered By: Donato Sepulveda on 10-06-2024 Triglyceride [Mass/Vol] 68 mg/dL <199 [facility] Comment on above: The drugs N-Acetylcy steine and Metamizole may falsely depress this assay. Normal range: <150 mg/dLBorderline High: 150-199 mg/dLHigh: 200-499 mg/dLVery High: >500 mg/dL White blood cell (WBC) count Ordered By: Donato Sepulveda on 10-06-2024 WBC (Bld) [#/Vol] 7.1 10*3/uL 4.4-11.0 [facility] Hemoglobin A1c percentageOrd ered By: Donato Sepulveda on 09-08-2024 HbA1c (Bld) [Mass fraction] 8.8 % High <5.7 [facility] Comment on above: Normal < 5.7 % Predi abetic 5.7 - 6.4 % Diabetic >or= 6.5 % Please note range changes. Bedside Glucoseon 08-24-2024 FINGERSTICK GLU 240 mg/dL High 74-106 [facility] Comment on above: Result Comment: JEWELS RAJPUT OF PATIENT CARE PER NURSING PROTOCOL Performed By: #### L 501.080 #### [facility] [address] [place], [place], [address] Fluoro Guided Needle Placeme nton 08-24-2024 Fluoro Guided Needle Placement [facility] Imaging Services [address] [place], [place] [address] Fluoro Guided Needle Placement MR#: [id number] Acct: [id number] Name: MINDY CHINCHILLA Rep #: [id number] : 1940 F 84 From: Tomi metz MD PCP: Dr. Donato Sepulveda MD Status: [facility] Study: Fluoro Guided Needle Placement Date of Exam: 0 08/24/24 Exam# [id number] Ordering Dr: Armando Rich MD PROCEDURE: FLUORO GUIDED NEEDLE PLACEMENT 08/24/2024 REASON FOR EXAM: RT KNEE INJECTION TECHNIQUE: Intraoperative fluoroscopic services provided for right knee injection. 5.1 seconds of fluoroscopy. 0.85 mGy. 4 images were taken. COMPARISON: None FINDINGS: Intraoperative fluoroscopic services for knee injection. RAD/Fluoro Guided Needle Placement IMPRESSION: Fluoroscopic services provided for right knee injection. Reading Location: [place] [address] CC: Dr. Donato Sepulveda MD; Dr. Armando Rich MD Automotive Vehicle Inspector: Signed Normal [facility] Glucose measurement at [facility] deOrdered By: Armando Rich on 08-24-2024 Bedside Glucose (Misc Panel) 240 mg/dL High 74-106 [facility] Comment on above: MANAGEMENT OF PATIEN T CARE PER NURSING PROTOCOL Glucose [Mass/Vol] 240 mg/dL High 74-106 [facility] Comment on above: MANAGEMENT OF PATIEN T CARE PER NURSING PROTOCOL Operative Reporton Operative Report [facility] Medical Records Department [address] [place] [address] Operative Report 08/24/24 0932 MR#: [id number] Acct: [id number] Name: MINDY CHINCHILLA Rep #: [id number] : 1940 84 From: Armando Rich MD PCP: Dr. Donato Sepulveda MD [place] [facility] [place]: [address] Operative Report (Standard) Operative Information Date of Procedure: 08/24/24 Pre-Operative Diagnosis: Osteoarthritis of the right knee, chronic postoperative knee pain Post-Operative Diagnosis: Osteoarthritis of the right knee, chronic postoperative knee pain Surgery/Procedure Performed: Right knee superior medial/superior lateral/inferior medial genicular nerves steroid injection under fluoroscopic guidance manager rental: No Type of Anesthesia: Local RN Documented [...] MD; Dr. Armando Rich MD Signed Normal [facility] Absolute lymphocyte countOrd ered By: Donato Sepulveda on 07-15-2024 Lymphocytes Auto (Unsp spec) [#/Vol] 1.27 10*3/uL 0.83-4.51 [facility] Absolute neutrophil countOrd ered By: Donato Sepulveda on 07-15-2024 Neutrophils (Bld) [#/Vol] 4.2 10*3/uL 2.0-7.7 [facility] Anion gap in Serum or Plasma Ordered By: Donato Sepulveda on 07-15-2024 Anion gap [Moles/Vol] 12 mmol/L 5-15 [facility] Automated lymphocyte count a s percentage of total leukocytesOrdered By: Donato Sepulveda on 07-15-2024 Lymphocytes/100 WBC Auto (Unsp spec) 21.1 % 19-41 [facility] BUN/creatinine ratioOrdered By: Donato Sepulveda on 07-15-2024 Urea nitrogen/Creatinine [Mass ratio] 17.5 mg/mg 10-20 [facility] Basophil percentageOrdered B y: Donato Sepulveda on 07-15-2024 Basophils/100 WBC (Bld) 0.5 % 0-1 [facility] Bilirubin Test strip Ql (U)O rdered By: Donato Sepulveda on 07-15-2024 Bilirubin Ql (U) Negative Negative [facility] Bilirubin, totalOrdered By: Livierbalaji Harjitrjruthann on 07-15-2024 Bilirubin [Mass/Vol] 0.31 mg/dL 0.00-1.30 [facility] Carbon dioxide, total [Moles /volume] in Central venous bloodOrdered By: Donato Lombardirjruthann on 07-15-2024 CO2 [Moles/Vol] 28.3 mmol/L 21.0-32.0 [facility] Chloride assayOrdered By: Livier balaji Harjitrjruthann on 07-15-2024 Chloride [Moles/Vol] 98 mmol/L 98-108 [facility] Eosinophil percentageOrdered By: Rauldyanchar Lombardirjruthann on 07-15-2024 Eosinophils/100 WBC (Bld) 1.7 % 0-5 [facility] Erythrocyte distribution wid th (RBC) [Ratio]Ordered By: Donato Sepulveda on 07-15-2024 Erythrocyte distribution width (RBC) [Entitic vol] 43.9 fL 35.1-43.9 [facility] Erythrocyte distribution wid th ratioOrdered By: Galichar Harjitrjruthann on 07-15-2024 Erythrocyte distribution width (RBC) [Ratio] 13.2 % 11.6-14.6 [facility] Erythrocyte distribution wid th standard deviationOrdered By: Donato Harjitbryan on 07-15-2024 Erythrocyte distribution width (RBC) [Ratio] 43.9 fl 35.1-43.9 [facility] GFR/1.73 sq M.predicted maxime g non-blacks MDRD (S/P/Bld) [Vol rate/Area]Ordered By: Donato Sepulveda on 07-15-2024 Estimated GFR (MDRD) Non-Af Amer 88 >60 [facility] Comment on above: mL/min/1.73m2 CKD-EP I Creatinine Equation (2020) Glomerular filtration rate ( GFR) estimation/1.73 sq m using serum, plasma, or whole bOrdered By: Donato Sepulveda on 07-15-2024 GFR/1.73 sq M.predicted among non-blacks MDRD (S/P/Bld) [Vol rate/Area] 88 mL/min/{1.73_m2} >60 [facility] Comment on above: mL/min/1.73m2 CKD-EP I Creatinine Equation (2020) Glucose Ql (U)Ordered By: Livier Sepulveda on 07-15-2024 Glucose (U) [Mass/Vol] 1000 mg/dL High Normal [facility] [facility] Hematocrit Auto (Bld) [Volum e fraction]Ordered By: Donato Sepulveda on 07-15-2024 Hematocrit (Bld) [Volume fraction] 38.9 % 37-47 [facility] Hemoglobin measurementOrdere d By: Donato Sepulveda on 07-15-2024 Hemoglobin (Bld) [Mass/Vol] 12.6 g/dL 12.0-15.0 [facility] Immature granulocytes/100 WB C Auto (Bld)Ordered By: Donato Sepulveda on 07-15-2024 Immature granulocytes/100 WBC (Bld) 0.200 % 0.0-0.9 [facility] Comment on above: IG% - Immature Granu locytes (promyelocytes, myelocytes and metamyelocytes) > 1% indicates that a LEFT SHIFT is Present. Ketones Test strip Ql (U)Ord ered By: Donato Sepulveda on 07-15-2024 Ketones Ql (U) Negative Negative [facility] Laboratory - Chemistry and C hemistry - challengeOrdered By: Donato Sepulveda on 07-15-2024 AST [Catalytic activity/Vol] 18 U/L <32 [facility] Lymphocytes Auto (Unsp spec) [#/Vol]Ordered By: Donato Sepulveda on 07-15-2024 Lymphocytes (Bld) [#/Vol] 1.27 10*3/uL 0.83-4.51 [facility] Lymphocytes/100 WBC Auto (Un sp spec)Ordered By: Donato Sepulveda on 07-15-2024 Lymphocytes/100 WBC (Bld) 21.1 % 19-41 [facility] MCV (mean corpuscular volume ) determinationOrdered By: Donato Sepulveda on 07-15-2024 MCV (RBC) [Entitic vol] 91.3 fL 81-99 [facility] Mean corpuscular hemoglobin (MCH) determinationOrdered By: Donato Sepulveda on 07-15-2024 MCH (RBC) [Entitic mass] 29.6 pg 27.0-32.0 [facility] Mean corpuscular hemoglobin concentration (MCHC) determinationOrdered By: Donato Sepulveda on 07-15-2024 MCHC (RBC) [Mass/Vol] 32.4 g/dL 32-36 [facility] Mean platelet volume determi nationOrdered By: Donato Sepulveda on 07-15-2024 Platelet mean volume (Bld) [Entitic vol] 10.7 fL 6.2-12.0 [facility] Monocyte percentageOrdered B y: Donato Sepulveda on 07-15-2024 Monocytes/100 WBC (Bld) 7.5 % 0-10 [facility] Neutrophil percentageOrdered By: Donato Sepulveda on 07-15-2024 Neutrophils/100 WBC (Bld) 69.0 % 47-70 [facility] Nitrite Test strip Ql (U)Ord ered By: Donato Sepulveda on 07-15-2024 Nitrite Ql (U) Negative Negative [facility] Nucleated red blood cell per centageOrdered By: Donato Sepulveda on 07-15-2024 Nucleated RBC/100 WBC (Bld) [Ratio] 0 % 0-5 [facility] Platelet countOrdered By: Livier stumarcela Sepulveda on 07-15-2024 Platelets (Bld) [#/Vol] 188 10*3/uL 150-450 [facility] Potassium (Unsp spec) [Mass/ Vol]Ordered By: Donato Sepulveda on 07-15-2024 Potassium [Moles/Vol] 4.3 mmol/L 3.3-5.1 [facility] Potassium measurement (mass/ volume)Ordered By: Donato Sepulveda on 07-15-2024 Potassium (Unsp spec) [Mass/Vol] 4.3 mmol/L 3.3-5.1 [facility] Protein Test strip Ql (U)Ord ered By: Donato Sepulveda on 07-15-2024 Protein Ql (U) Negative Negative [facility] RBC Auto (Bld) [#/Vol]Ordere d By: Donato Sepulveda on 07-15-2024 RBC (Bld) [#/Vol] 4.26 10*6/uL 4.2-5.4 [facility] Serum creatinine measurement (mass/volume)Ordered By: Donato Sepulveda on 07-15-2024 Creatinine [Mass/Vol] 0.65 mg/dL Low 0.70-1.20 [facility] Serum globulin measurementOr dered By: Donato Sepulveda on 07-15-2024 Globulin (S) [Mass/Vol] 2.6 g/dL 2.2-4.2 [facility] Serum glucose measurement (m ass/volume)Ordered By: Donato Sepulveda on 07-15-2024 Glucose [Mass/Vol] 322 mg/dL High 70-99 [facility] Serum or plasma alanine rivera otransferase (ALT) measurementOrdered By: Donato Sepulveda on 07-15-2024 ALT [Catalytic activity/Vol] 9 U/L <35 [facility] Serum or plasma albumin serge urement (mass/volume)Ordered By: Donato Sepulveda on 07-15-2024 Albumin [Mass/Vol] 3.9 g/dL 3.4-4.8 [facility] Serum or plasma albumin/glob ulin mass ratioOrdered By: Donato Sepulveda 07-15-2024 Albumin/Globulin [Mass ratio] 1.5 {ratio} 0.9-2.4 [facility] Serum or plasma alkaline stephane sphatase measurementOrdered By: Donato Sepulveda 07-15-2024 ALP [Catalytic activity/Vol] 59 U/L 35-104 [facility] Serum or plasma calcium serge urement (mass/volume)Ordered By: Donato Sepulveda 07-15-2024 Calcium [Mass/Vol] 9.6 mg/dL 7.6-11.0 [facility] Serum or plasma urea nitroge n measurement (mass/volume)Ordered By: Donato Sepulveda 07-15-2024 Urea nitrogen [Mass/Vol] 11 mg/dL 4-19 [facility] Sodium levelOrdered By: Raul Sepulveda on 07-15-2024 Sodium [Moles/Vol] 138 mmol/L 133-145 [facility] Total proteinOrdered By: Sherwin Sepulveda on 07-15-2024 Protein [Mass/Vol] 6.6 g/dL 5.9-8.4 [facility] Urine blood detectionOrdered By: Donato Sepulveda on 07-15-2024 Urine Occult Blood Negative Negative [facility] Urine clarityOrdered By: Sherwin Sepulveda on 07-15-2024 Clarity (U) Sl. Cloudy Clear [facility] Urine color determinationOrd ered By: Donato Sepulveda on 07-15-2024 Color (U) Yellow Yellow [facility] Urine cultureOrdered By: Sherwin Sepulveda on 07-15-2024 Bacteria identified Cx Nom (U) GNR lactose landscape nurseryman Abnormal [facility] Bacteria identified Cx Nom (U) Staphylococcus epidermidis Abnormal [facility] Urine glucose detectionOrder ed By: Donato Sepulveda on 07-15-2024 Glucose Ql (U) 1000 mg/dl High Normal [facility] Urine leukocyte esterase det ection by dipstickOrdered By: Donato Sepulveda on 07-15-2024 Leukocyte esterase Test strip Ql (U) Negative Negative [facility] Urine pHOrdered By: Harvey Sepulveda on 07-15-2024 pH (U) 7.0 [pH] 5.0 - 8.0 [facility] Urine specific gravity measu rementOrdered By: Donato Sepulveda on 07-15-2024 Specific gravity (U) [Rel density] 1.010 1.002-1.030 [facility] Urine urobilinogen measureme ntOrdered By: Doanto Sepulveda on 07-15-2024 Urobilinogen Ql (U) 1 mg/dl High Normal [facility] Urobilinogen Ql (U)Ordered B y: Donato Sepulveda on 07-15-2024 Urobilinogen (U) [Mass/Vol] 1 mg/dL High Normal [facility] White blood cell (WBC) count Ordered By: Donato Sepulveda on 07-15-2024 WBC (Bld) [#/Vol] 6.0 10*3/uL 4.4-11.0 [facility] Vitamin D, 25-hydroxyOrdered By: Donato Sepulveda on 07-14-2024 Vitamin D 25-Hydroxy 33.9 ng/mL 30-100 [facility] Comment on above: Vitamin D StatusDefi ciency: <20 ng/mL (50nmol/L)Insufficiency: 20-30 ng/mL (50-75 nmol/L)Sufficiency: 30-100 ng/mL (75-250 nmol/L)Toxicity: >100 ng/mL (>250 nmol/L) Bilirubin Test strip Ql (U)O rdered By: Donato Sepulveda on 06-15-2024 Bilirubin Ql (U) Negative Negative [facility] Glucose Ql (U)Ordered By: Livier Sepulveda on 06-15-2024 Glucose (U) [Mass/Vol] 1000 mg/dL High Normal [facility] Ketones Test strip Ql (U)Ord ered By: Donato Sepulveda on 06-15-2024 Ketones Ql (U) Negative Negative [facility] Nitrite Test strip Ql (U)Ord ered By: Donato Sepulveda on 06-15-2024 Nitrite Ql (U) Negative Negative [facility] Protein Test strip Ql (U)Ord ered By: Donato Sepulveda on 06-15-2024 Protein Ql (U) Negative Negative [facility] Urine blood detectionOrdered By: Donato Sepulveda on 06-15-2024 Urine Occult Blood 150 /ul High Negative [facility] Urine clarityOrdered By: Sherwin Sepulveda on 06-15-2024 Clarity (U) Clear Clear [facility] Urine color determinationOrd ered By: Donato Sepulveda on 06-15-2024 Color (U) Yellow Yellow [facility] Urine cultureOrdered By: Sherwin Sepulveda on 06-15-2024 Bacteria identified Cx Nom (U) Mixed Gram Pos & Gram Neg Org Abnormal [facility] Urine glucose detectionOrder ed By: Donato Sepulveda on 06-15-2024 Glucose Ql (U) 1000 mg/dl High Normal [facility] Urine leukocyte esterase det ection by dipstickOrdered By: Donato Sepulveda on 06-15-2024 Leukocyte esterase Test strip Ql (U) 25 /ul High Negative [facility] Urine pHOrdered By: Harvey Sepulveda on 06-15-2024 pH (U) 6.0 [pH] 5.0 - 8.0 [facility] Urine specific gravity measu rementOrdered By: Donato Sepulveda on 06-15-2024 Specific gravity (U) [Rel density] 1.010 1.002-1.030 [facility] Urine urobilinogen measureme ntOrdered By: Donato Sepulveda on 06-15-2024 Urobilinogen Ql (U) Normal mg/dl Normal [facility] Urobilinogen Ql (U)Ordered B y: Donato Sepulveda on 06-15-2024 Urine Urobilinogen Normal mg/dl Normal [facility] Hemoglobin A1c percentageOrd ered By: Donato Sepulveda on 06-09-2024 HbA1c (Bld) [Mass fraction] 8.6 % High 3.8-5.6 [facility] Comment on above: Normal < 5.7 % Predi abetic 5.7 - 6.4 % Diabetic >or= 6.5 % Please note range changes. 81-LL-[id number] DOrdered By: Ruthann Sepulveda on 06-02-2024 Vitamin D 25-Hydroxy 53.0 ng/mL [facility] Comment on above: Vitamin D 25(OH) Sta tus Range Deficiency <20 ng/mL (50nmol/L) Insufficiency 20 - 30 ng/mL (50 - 75 nmol/L) Sufficiency 30 - 100 ng/mL (75 - 250 nmol/L) Toxicity >100 ng/mL (>250 nmol/L) 72-IM-Crkmzit DOrdered By: Ruthann Sepulveda on 04-21-2024 Vitamin D 25-Hydroxy 64.0 ng/mL [facility] Comment on above: Vitamin D 25(OH) Sta tus Range Deficiency <20 ng/mL (50nmol/L) Insufficiency 20 - 30 ng/mL (50 - 75 nmol/L) Sufficiency 30 - 100 ng/mL (75 - 250 nmol/L) Toxicity >100 ng/mL (>250 nmol/L) Basophil percentageOrdered B y: Donato Sepulveda on 08-06-2023 Bilirubin [Mass/Vol] 0.50 mg/dL 0.20-1.00 [facility] Comment on above: For patients on eltr ombopag therapy, use of Dimension [place] TBIL is not recommended. Chloride [Moles/Vol] 105 mmol/L 98-107 [facility] Glucose [Mass/Vol] 153 mg/dL 74-106 [facility] Comment on above: Fasting Glucose resu lt greater than or equal to 126 mg/dL suggests DIABETES MELLITUS per A.D.A. criteria. Hemoglobin (Bld) [Mass/Vol] 12.4 g/dL 12.0-15.0 [facility] Potassium [Moles/Vol] 4.0 mmol/L 3.5-5.1 [facility] Protein [Mass/Vol] 6.7 g/dL 6.4-8.2 [facility] Sodium [Moles/Vol] 139 mmol/L 136-145 [facility] WBC (Bld) [#/Vol] 5.9 10*3/uL 4.4-11.0 [facility] Determination of erythrocyte mean corpuscular volume (MCV)Ordered By: Donato Sepulveda on 08-06-2023 MCV (RBC) [Entitic vol] 92.5 fL 81-99 [facility] Erythrocyte distribution wid th ratioOrdered By: Rauldunsmuirchar Sepulveda on 08-06-2023 Erythrocyte distribution width (RBC) [Ratio] 13.3 % 11.6-14.6 [facility] Erythrocyte distribution wid th standard deviationOrdered By: Rauldunsmuirchar Sepulveda on 08-06-2023 Erythrocyte distribution width (RBC) [Entitic vol] 45.2 fL 35.1-43.9 [facility] Hematocrit Auto (Bld) [Volum e fraction]Ordered By: Donato Sepulveda on 08-06-2023 Hematocrit (Bld) [Volume fraction] 39.7 % 37-47 [facility] Laboratory - Chemistry and C hemistry - challengeOrdered By: Donato Sepulveda on 08-06-2023 Albumin/Globulin [Mass ratio] 1.0 {ratio} 0.9-2.4 [facility] ALP [Catalytic activity/Vol] 59 U/L 45-117 [facility] ALT [Catalytic activity/Vol] 13 U/L 13-56 [facility] CO2 [Moles/Vol] 29.0 mmol/L 21.0-32.0 [facility] Globulin (S) [Mass/Vol] 3.3 g/dL 2.2-4.2 [facility] Urea nitrogen/Creatinine [Mass ratio] 14.4 mg/mg 10-20 [facility] Laboratory - Hematology and Cell countsOrdered By: Donato Sepulveda on 08-06-2023 MCH (RBC) [Entitic mass] 28.9 pg 27.0-32.0 [facility] MCHC (RBC) [Mass/Vol] 31.2 g/dL 32-36 [facility] Platelet mean volume (Bld) [Entitic vol] 10.1 fL 6.2-12.0 [facility] Platelets (Bld) [#/Vol] 187 10*3/uL 150-450 [facility] No Panel InformationOrdered By: Donato Sepulveda on 08-06-2023 Estimated GFR (MDRD) Amer 94 mL/min >60 [facility] Comment on above: GFR Calc Estimated GFR (MDRD) Non-Af Amer 77 mL/min >60 [facility] Comment on above: Non- GFR Calc RBC Auto (Bld) [#/Vol]Ordere d By: Donato Sepulveda on 08-06-2023 RBC (Bld) [#/Vol] 4.29 10*6/uL 4.2-5.4 [facility] Serum or plasma calcium serge urement (mass/volume)Ordered By: Donato Sepulveda on 08-06-2023 Calcium [Mass/Vol] 9.0 mg/dL 8.5-10.1 [facility] Serum or plasma creatinine m easurement (mass/volume)Ordered By: Donato Sepulveda on 08-06-2023 Creatinine [Mass/Vol] 0.76 mg/dL 0.55-1.02 [facility] Comment on above: The validity of the calculated GFR & GFRAA in patients over 70 years has not been determined. Clinical correlation is essential. Serum or plasma urea nitroge n measurement (mass/volume)Ordered By: Donato Sepulveda on 08-06-2023 Urea nitrogen [Mass/Vol] 11 mg/dL 7-18 [facility] Thin prep Papanicolaou smear with manual screeningOrdered By: Donato Sepulveda on 08-06-2023 Thin prep Papanicolaou smear with manual screening 3.4 g/dL 3.2-5.0 [facility] Thin prep Papanicolaou smear with manual screening 15 U/L 15-37 [facility] Thin prep Papanicolaou smear with manual screening 5 5-15 [facility] Basophil percentageOrdered B y: Donato Sepulveda on 06-11-2023 Bilirubin [Mass/Vol] 0.50 mg/dL 0.20-1.00 [facility] Comment on above: For patients on eltr ombopag therapy, use of Dimension [place] TBIL is not recommended. Chloride [Moles/Vol] 105 mmol/L 98-107 [facility] Glucose [Mass/Vol] 92 mg/dL 74-106 [facility] Hemoglobin (Bld) [Mass/Vol] 12.1 g/dL 12.0-15.0 [facility] Potassium [Moles/Vol] 3.7 mmol/L 3.5-5.1 [facility] Protein [Mass/Vol] 6.9 g/dL 6.4-8.2 [facility] Sodium [Moles/Vol] 140 mmol/L 136-145 [facility] WBC (Bld) [#/Vol] 7.0 10*3/uL 4.4-11.0 [facility] Determination of erythrocyte mean corpuscular volume (MCV)Ordered By: Donato Speulveda on 06-11-2023 MCV (RBC) [Entitic vol] 92.6 fL 81-99 [facility] Erythrocyte distribution wid th ratioOrdered By: Donato Sepulveda on 06-11-2023 Erythrocyte distribution width (RBC) [Ratio] 12.5 % 11.6-14.6 [facility] Erythrocyte distribution wid th standard deviationOrdered By: Donato Sepulveda on 06-11-2023 Erythrocyte distribution width (RBC) [Entitic vol] 42.4 fL 35.1-43.9 [facility] Hematocrit Auto (Bld) [Volum e fraction]Ordered By: Donato Sepulveda on 06-11-2023 Hematocrit (Bld) [Volume fraction] 38.6 % 37-47 [facility] Laboratory - Chemistry and C hemistry - challengeOrdered By: Donato Sepulveda on 06-11-2023 Albumin/Globulin [Mass ratio] 0.8 {ratio} 0.9-2.4 [facility] ALP [Catalytic activity/Vol] 85 U/L 45-117 [facility] ALT [Catalytic activity/Vol] 18 U/L 13-56 [facility] CO2 [Moles/Vol] 29.0 mmol/L 21.0-32.0 [facility] Globulin (S) [Mass/Vol] 3.8 g/dL 2.2-4.2 [facility] Urea nitrogen/Creatinine [Mass ratio] 18.3 mg/mg 10-20 [facility] Laboratory - Hematology and Cell countsOrdered By: Donato Sepulveda on 06-11-2023 MCH (RBC) [Entitic mass] 29.0 pg 27.0-32.0 [facility] MCHC (RBC) [Mass/Vol] 31.3 g/dL 32-36 [facility] Platelet mean volume (Bld) [Entitic vol] 11.0 fL 6.2-12.0 [facility] Platelets (Bld) [#/Vol] 190 10*3/uL 150-450 [facility] No Panel InformationOrdered By: Donato Sepulveda on 06-11-2023 Estimated GFR (MDRD) Amer 80 mL/min >60 [facility] Comment on above: GFR Calc Estimated GFR (MDRD) Non-Af Amer 66 mL/min >60 [facility] Comment on above: Non- GFR Calc Vitamin D 25-Hydroxy 29.3 ng/mL [facility] Comment on above: Vitamin D 25(OH) Sta tus Range Deficiency <20 ng/mL (50nmol/L) Insufficiency 20 - 30 ng/mL (50 - 75 nmol/L) Sufficiency 30 - 100 ng/mL (75 - 250 nmol/L) Toxicity >100 ng/mL (>250 nmol/L) RBC Auto (Bld) [#/Vol]Ordere d By: Donato Sepulveda on 06-11-2023 RBC (Bld) [#/Vol] 4.17 10*6/uL 4.2-5.4 [facility] Serum or plasma calcium serge urement (mass/volume)Ordered By: Donato Sepulveda on 06-11-2023 Calcium [Mass/Vol] 9.2 mg/dL 8.5-10.1 [facility] Serum or plasma creatinine m easurement (mass/volume)Ordered By: Donato Sepulveda on 06-11-2023 Creatinine [Mass/Vol] 0.87 mg/dL 0.55-1.02 [facility] Comment on above: The validity of the calculated GFR & GFRAA in patients over 70 years has not been determined. Clinical correlation is essential. Serum or plasma urea nitroge n measurement (mass/volume)Ordered By: Donato Sepulveda on 06-11-2023 Urea nitrogen [Mass/Vol] 16 mg/dL 7-18 [facility] Thin prep Papanicolaou smear with manual screeningOrdered By: Donato Sepulveda on 06-11-2023 Thin prep Papanicolaou smear with manual screening 3.1 g/dL 3.2-5.0 [facility] Thin prep Papanicolaou smear with manual screening 18 U/L 15-37 [facility] Thin prep Papanicolaou smear with manual screening 6 5-15 [facility] Whole blood hemoglobin A1c/t otal hemoglobin ratio (mass fraction)Ordered By: Donato Sepulveda on 06-11-2023 HbA1c (Bld) [Mass fraction] 8.7 % 3.8-5.6 [facility] Comment on above: Normal < 5.7 % Predi abetic 5.7 - 6.4 % Diabetic >or= 6.5 % Please note range changes. Absolute lymphocyte countOrd ered By: Colleen Walker on 06-05-2023 Lymphocytes Auto (Unsp spec) [#/Vol] 1.18 10*3/uL 0.83-4.51 [facility] Automated lymphocyte count a s percentage of total leukocytesOrdered By: Colleen Walker on 06-05-2023 Lymphocytes/100 WBC Auto (Unsp spec) 13.6 % 19-41 [facility] Basophil percentageOrdered B y: Colleen Walker on 06-05-2023 Basophil percentage 5-10 SEEN /hpf 0-5 [facility] Basophils/100 WBC (Bld) 0.6 % 0-1 [facility] Chloride [Moles/Vol] 104 mmol/L 98-107 [facility] Eosinophils/100 WBC (Bld) 2.0 % 0-5 [facility] Glucose [Mass/Vol] 150 mg/dL 74-106 [facility] Comment on above: Fasting Glucose resu lt greater than or equal to 126 mg/dL suggests DIABETES MELLITUS per A.D.A. criteria. Hemoglobin (Bld) [Mass/Vol] 13.2 g/dL 12.0-15.0 [facility] Monocytes/100 WBC (Bld) 7.2 % 0-10 [facility] Neutrophils (Bld) [#/Vol] 6.6 10*3/uL 2.0-7.7 [facility] Neutrophils/100 WBC (Bld) 76.3 % 47-70 [facility] Potassium [Moles/Vol] 3.6 mmol/L 3.5-5.1 [facility] Sodium [Moles/Vol] 137 mmol/L 136-145 [facility] WBC (Bld) [#/Vol] 8.7 10*3/uL 4.4-11.0 [facility] Bilirubin Test strip Ql (U)O rdered By: Colleen Walker on 06-05-2023 Bilirubin Ql (U) Negative Negative [facility] Determination of erythrocyte mean corpuscular volume (MCV)Ordered By: Colleen Walker on 06-05-2023 MCV (RBC) [Entitic vol] 92.9 fL 81-99 [facility] Erythrocyte distribution wid th ratioOrdered By: Colleen Walker on 06-05-2023 Erythrocyte distribution width (RBC) [Ratio] 12.6 % 11.6-14.6 [facility] Erythrocyte distribution wid th standard deviationOrdered By: Colleen Walker on 06-05-2023 Erythrocyte distribution width (RBC) [Entitic vol] 43.4 fL 35.1-43.9 [facility] Hematocrit Auto (Bld) [Volum e fraction]Ordered By: Colleen Walker on 06-05-2023 Hematocrit (Bld) [Volume fraction] 42.1 % 37-47 [facility] Immature granulocytes/100 WB C Auto (Bld)Ordered By: Colleen Walker on 06-05-2023 Immature granulocytes/100 WBC (Bld) 0.300 % 0.0-0.9 [facility] Comment on above: IG% - Immature Granu locytes (promyelocytes, myelocytes and metamyelocytes) > 1% indicates that a LEFT SHIFT is Present. Ketones Test strip Ql (U)Ord ered By: Colleen Walker on 06-05-2023 Ketones Ql (U) Negative Negative [facility] Laboratory - Chemistry and C hemistry - challengeOrdered By: Colleen Walker on 06-05-2023 CO2 [Moles/Vol] 32.0 mmol/L 21.0-32.0 [facility] Urea nitrogen/Creatinine [Mass ratio] 21.9 mg/mg 10-20 [facility] Laboratory - Hematology and Cell countsOrdered By: Colleen Walker on 06-05-2023 MCH (RBC) [Entitic mass] 29.1 pg 27.0-32.0 [facility] MCHC (RBC) [Mass/Vol] 31.4 g/dL 32-36 [facility] Nucleated RBC/100 WBC (Bld) [Ratio] 0 % 0-5 [facility] Platelets (Bld) [#/Vol] 180 10*3/uL 150-450 [facility] Mucus LM Ql (Urine sed)Order ed By: Colleen Wlaker on 06-05-2023 Mucus Ql (Urine sed) 0 SEEN /hpf [facility] Nitrite Test strip Ql (U)Ord ered By: Colleen Walker on 06-05-2023 Nitrite Ql (U) Negative Negative [facility] No Panel InformationOrdered By: Colleen Walker on 06-05-2023 Urine RBC 0 SEEN /hpf 0-5 [facility] Estimated Creatinine Clearance Calc 48.43 ml/min [facility] Estimated GFR (MDRD) Amer 92 mL/min >60 [facility] Comment on above: GFR Calc Estimated GFR (MDRD) Non-Af Amer 76 mL/min >60 [facility] Comment on above: Non- GFR Calc Platelet mean volume Jamie-Ec ker (Bld) [Entitic vol]Ordered By: Colleen Walker on 06-05-2023 Platelet mean volume (Bld) [Entitic vol] 10.3 fL 6.2-12.0 [facility] Protein Test strip Ql (U)Ord ered By: Colleen Walker on 06-05-2023 Protein Ql (U) 15 mg/dl Negative [facility] RBC Auto (Bld) [#/Vol]Ordere d By: Colleen Walker on 06-05-2023 RBC (Bld) [#/Vol] 4.53 10*6/uL 4.2-5.4 [facility] Serum or plasma calcium serge urement (mass/volume)Ordered By: Colleen Walker on 06-05-2023 Calcium [Mass/Vol] 9.3 mg/dL 8.5-10.1 [facility] Serum or plasma creatinine m easurement (mass/volume)Ordered By: Colleen Walker on 06-05-2023 Creatinine [Mass/Vol] 0.78 mg/dL 0.55-1.02 [facility] Comment on above: The validity of the calculated GFR & GFRAA in patients over 70 years has not been determined. Clinical correlation is essential. Serum or plasma urea nitroge n measurement (mass/volume)Ordered By: Colleen Walker on 06-05-2023 Urea nitrogen [Mass/Vol] 17 mg/dL 7-18 [facility] Squamous epithelial cells de tection in urine sediment by light microscopyOrdered By: Colleen Walker on 06-05-2023 Epithelial cells.squamous LM Ql (Urine sed) 5-10 SEEN /hpf 5-10 [facility] Thin prep Papanicolaou smear with manual screeningOrdered By: Colleen Walker on 06-05-2023 Thin prep Papanicolaou smear with manual screening 1 5-15 [facility] Urine blood detectionOrdered By: Colleen Walker on 06-05-2023 RBC Ql (U) 50 /ul Negative [facility] Urine clarityOrdered By: Yadira Wakler on 06-05-2023 Clarity (U) Sl. Cloudy Clear [facility] Urine color determinationOrd ered By: Colleen Walker on 06-05-2023 Color (U) Yellow Yellow [facility] Urine glucose detectionOrder ed By: Colleen Walker on 06-05-2023 Glucose Ql (U) 1000 mg/dl Normal [facility] Urine leukocyte esterase det ection by dipstickOrdered By: Colleen Walker on 06-05-2023 Leukocyte esterase Test strip Ql (U) 100 /ul Negative [facility] Urine pHOrdered By: Colleen ma on 06-05-2023 pH (U) 6.0 [pH] 5.0 - 8.0 [facility] Urine sediment bacteria coun t by microscopy (number/high power field)Ordered By: Colleen Walker on 06-05-2023 Bacteria LM.HPF (Urine sed) [#/Area] 0 /[HPF] None Seen [facility] Urine specific gravity measu rementOrdered By: Colleen Walker on 06-05-2023 Specific gravity (U) [Rel density] 1.015 1.002-1.030 [facility] Urine urobilinogen measureme ntOrdered By: Colleen Walker on 06-05-2023 Urobilinogen Ql (U) Normal mg/dl Normal [facility] Absolute lymphocyte countOrd ered By: Donato Sepulveda on 04-23-2023 Lymphocytes Auto (Unsp spec) [#/Vol] 1.27 10*3/uL 0.83-4.51 [facility] Basophil percentageOrdered B y: Donato Sepulveda on 04-23-2023 Basophils/100 WBC (Bld) 0.3 % 0-1 [facility] Chloride [Moles/Vol] 106 mmol/L 98-107 [facility] Eosinophils/100 WBC (Bld) 4.6 % 0-5 [facility] Glucose [Mass/Vol] 96 mg/dL 74-106 [facility] Neutrophils (Bld) [#/Vol] 4.1 10*3/uL 2.0-7.7 [facility] Neutrophils/100 WBC (Bld) 67.6 % 47-70 [facility] Potassium [Moles/Vol] 3.7 mmol/L 3.5-5.1 [facility] Sodium [Moles/Vol] 141 mmol/L 136-145 [facility] WBC (Bld) [#/Vol] 6.1 10*3/uL 4.4-11.0 [facility] Blood erythrocytes count (nu mber/volume)Ordered By: Donato Sepulveda on 04-23-2023 RBC (Bld) [#/Vol] 4.10 10*6/uL 4.2-5.4 [facility] Blood hemoglobin measurement (mass/volume)Ordered By: Donato Sepulveda on 04-23-2023 Hemoglobin (Bld) [Mass/Vol] 12.0 g/dL 12.0-15.0 [facility] Blood lymphocytes/100 leukoc ytesOrdered By: Donato Sepulveda on 04-23-2023 Lymphocytes/100 WBC (Bld) 20.9 % 19-41 [facility] Blood monocytes/100 leukocyt esOrdered By: Donato Sepulveda on 04-23-2023 Monocytes/100 WBC (Bld) 6.1 % 0-10 [facility] Blood platelet mean volumeOr dered By: Donato Sepulveda on 04-23-2023 Platelet mean volume (Bld) [Entitic vol] 10.3 fL 6.2-12.0 [facility] Determination of erythrocyte mean corpuscular volume (MCV)Ordered By: Donato Sepulveda on 04-23-2023 MCV (RBC) [Entitic vol] 93.9 fL 81-99 [facility] Hematocrit Auto (Bld) [Volum e fraction]Ordered By: Donato Sepulveda on 04-23-2023 Hematocrit (Bld) [Volume fraction] 38.5 % 37-47 [facility] Laboratory - Chemistry and C hemistry - challengeOrdered By: Donato Sepulveda on 04-23-2023 CO2 [Moles/Vol] 32.0 mmol/L 21.0-32.0 [facility] Urea nitrogen/Creatinine [Mass ratio] 21.8 mg/mg 10-20 [facility] Laboratory - Hematology and Cell countsOrdered By: Donato Sepulveda on 04-23-2023 Erythrocyte distribution width (RBC) [Entitic vol] 44.9 fL 35.1-43.9 [facility] Erythrocyte distribution width (RBC) [Ratio] 13.0 % 11.6-14.6 [facility] Immature granulocytes/100 WBC (Bld) 0.500 % 0.0-0.9 [facility] Comment on above: IG% - Immature Granu locytes (promyelocytes, myelocytes and metamyelocytes) > 1% indicates that a LEFT SHIFT is Present. MCH (RBC) [Entitic mass] 29.3 pg 27.0-32.0 [facility] Nucleated RBC/100 WBC (Bld) [Ratio] 0 % 0-5 [facility] MCHC Auto (RBC) [Mass/Vol]Or dered By: Donato Sepulveda on 04-23-2023 MCHC (RBC) [Mass/Vol] 31.2 g/dL 32-36 [facility] No Panel InformationOrdered By: Donato Sepulveda on 04-23-2023 Estimated GFR (MDRD) Amer 106 mL/min >60 [facility] Comment on above: GFR Calc Estimated GFR (MDRD) Non-Af Amer 87 mL/min >60 [facility] Comment on above: Non- GFR Calc Platelets bldOrdered By: Sherwin Sepulveda on 04-23-2023 Platelets (Bld) [#/Vol] 207 10*3/uL 150-450 [facility] Serum or plasma calcium serge urement (mass/volume)Ordered By: Donato Sepulveda on 04-23-2023 Calcium [Mass/Vol] 9.3 mg/dL 8.5-10.1 [facility] Serum or plasma creatinine m easurement (mass/volume)Ordered By: Donato Sepulveda on 04-23-2023 Creatinine [Mass/Vol] 0.69 mg/dL 0.55-1.02 [facility] Comment on above: The validity of the calculated GFR & GFRAA in patients over 70 years has not been determined. Clinical correlation is essential. Serum or plasma urea nitroge n measurement (mass/volume)Ordered By: Donato Sepulveda on 04-23-2023 Urea nitrogen [Mass/Vol] 15 mg/dL 7- [facility] Thin prep Papanicolaou smear with manual screeningOrdered By: studunsmuirchar Sepulveda on 04-23-2023 Thin prep Papanicolaou smear with manual screening 3 - [facility] Basophil percentageOrdered B y: Donato Sepulveda on 04-19-2023 Potassium [Moles/Vol] 4.3 mmol/L 3.5-5.1 [facility] Basophil percentageOrdered B y: Donato Sepulveda on 04-09-2023 Bilirubin [Mass/Vol] 0.30 mg/dL 0.20-1.00 [facility] Comment on above: For patients on eltr ombopag therapy, use of Dimension [place] TBIL is not recommended. Chloride [Moles/Vol] 106 mmol/L 98-107 [facility] Glucose [Mass/Vol] 55 mg/dL 74-106 [facility] Potassium [Moles/Vol] 3.9 mmol/L 3.5-5.1 [facility] Protein [Mass/Vol] 7.2 g/dL 6.4-8.2 [facility] Sodium [Moles/Vol] 139 mmol/L 136-145 [facility] WBC (Bld) [#/Vol] 7.9 10*3/uL 4.4-11.0 [facility] Blood erythrocytes count (nu mber/volume)Ordered By: Donato Sepulveda on 04-09-2023 RBC (Bld) [#/Vol] 4.36 10*6/uL 4.2-5.4 [facility] Blood hemoglobin measurement (mass/volume)Ordered By: Donato Sepulveda on 04-09-2023 Hemoglobin (Bld) [Mass/Vol] 12.7 g/dL 12.0-15.0 [facility] Blood platelet mean volumeOr dered By: Donato Sepulveda on 04-09-2023 Platelet mean volume (Bld) [Entitic vol] 10.9 fL 6.2-12.0 [facility] Determination of erythrocyte mean corpuscular volume (MCV)Ordered By: Donato Sepulveda on 04-09-2023 MCV (RBC) [Entitic vol] 94.5 fL 81-99 [facility] Hematocrit Auto (Bld) [Volum e fraction]Ordered By: Donato Sepulveda on 04-09-2023 Hematocrit (Bld) [Volume fraction] 41.2 % 37-47 [facility] Laboratory - Chemistry and C hemistry - challengeOrdered By: Donato Sepulveda on 04-09-2023 ALP [Catalytic activity/Vol] 90 U/L 45-117 [facility] ALT [Catalytic activity/Vol] 21 U/L 13-56 [facility] CO2 [Moles/Vol] 30.0 mmol/L 21.0-32.0 [facility] Globulin (S) [Mass/Vol] 3.7 g/dL 2.2-4.2 [facility] Urea nitrogen/Creatinine [Mass ratio] 22.9 mg/mg 10-20 [facility] Laboratory - Hematology and Cell countsOrdered By: Donato Sepulveda on 04-09-2023 Erythrocyte distribution width (RBC) [Entitic vol] 44.3 fL 35.1-43.9 [facility] Erythrocyte distribution width (RBC) [Ratio] 12.8 % 11.6-14.6 [facility] MCH (RBC) [Entitic mass] 29.1 pg 27.0-32.0 [facility] MCHC Auto (RBC) [Mass/Vol]Or dered By: Donato Sepulveda on 04-09-2023 MCHC (RBC) [Mass/Vol] 30.8 g/dL 32-36 [facility] No Panel InformationOrdered By: Donato Sepulveda on 04-09-2023 Estimated GFR (MDRD) Amer 97 mL/min >60 [facility] Comment on above: GFR Calc Estimated GFR (MDRD) Non-Af Amer 80 mL/min >60 [facility] Comment on above: Non- GFR Calc Platelets bldOrdered By: Sherwin Sepulveda on 04-09-2023 Platelets (Bld) [#/Vol] 212 10*3/uL 150-450 [facility] Serum or plasma albumin serge urement (mass/volume)Ordered By: Donato Sepulveda on 04-09-2023 Albumin [Mass/Vol] 3.5 g/dL 3.2-5.0 [facility] Serum or plasma albumin/glob ulin mass ratioOrdered By: Donato Sepulveda on 04-09-2023 Albumin/Globulin [Mass ratio] 0.9 {ratio} 0.9-2.4 [facility] Serum or plasma calcium serge urement (mass/volume)Ordered By: Donato Sepulveda on 04-09-2023 Calcium [Mass/Vol] 9.4 mg/dL 8.5-10.1 [facility] Serum or plasma creatinine m easurement (mass/volume)Ordered By: Donato Sepulveda on 04-09-2023 Creatinine [Mass/Vol] 0.74 mg/dL 0.55-1.02 [facility] Comment on above: The validity of the calculated GFR & GFRAA in patients over 70 years has not been determined. Clinical correlation is essential. Serum or plasma urea nitroge n measurement (mass/volume)Ordered By: Donato Sepulveda on 04-09-2023 Urea nitrogen [Mass/Vol] 17 mg/dL 7-18 [facility] Thin prep Papanicolaou smear with manual screeningOrdered By: Donato Sepulveda on 04-09-2023 Thin prep Papanicolaou smear with manual screening 19 U/L 15-37 [facility] Thin prep Papanicolaou smear with manual screening 3 5-15 [facility] No Panel InformationOrdered By: Donato Sepulveda on 03-12-2023 Vitamin D 25-Hydroxy 34.4 ng/mL [facility] Comment on above: Vitamin D 25(OH) Sta tus Range Deficiency <20 ng/mL (50nmol/L) Insufficiency 20 - 30 ng/mL (50 - 75 nmol/L) Sufficiency 30 - 100 ng/mL (75 - 250 nmol/L) Toxicity >100 ng/mL (>250 nmol/L) Whole blood hemoglobin A1c/t otal hemoglobin ratio (mass fraction)Ordered By: Donato Sepulveda on 03-12-2023 HbA1c (Bld) [Mass fraction] 7.4 % 3.8-5.6 [facility] Comment on above: Normal < 5.7 % Predi abetic 5.7 - 6.4 % Diabetic >or= 6.5 % Please note range changes. Basophil percentageOrdered B y: Donato Sepulveda on 02-05-2023 Bilirubin [Mass/Vol] 0.50 mg/dL 0.20-1.00 [facility] Comment on above: For patients on eltr ombopag therapy, use of Dimension [place] TBIL is not recommended. Chloride [Moles/Vol] 105 mmol/L 98-107 [facility] Glucose [Mass/Vol] 106 mg/dL 74-106 [facility] Comment on above: Fasting Glucose resu lt from 100 to 125 mg/dL suggests IMPAIRED HOMEOSTASIS per A.D.A. criteria. Potassium [Moles/Vol] 4.2 mmol/L 3.5-5.1 [facility] Protein [Mass/Vol] 6.9 g/dL 6.4-8.2 [facility] Sodium [Moles/Vol] 142 mmol/L 136-145 [facility] WBC (Bld) [#/Vol] 6.0 10*3/uL 4.4-11.0 [facility] Blood erythrocytes count (nu mber/volume)Ordered By: Donato Sepulveda on 02-05-2023 RBC (Bld) [#/Vol] 4.18 10*6/uL 4.2-5.4 [facility] Blood hemoglobin measurement (mass/volume)Ordered By: Donato Sepulveda on 02-05-2023 Hemoglobin (Bld) [Mass/Vol] 12.1 g/dL 12.0-15.0 [facility] Blood platelet mean volumeOr dered By: Donato Sepulveda on 02-05-2023 Platelet mean volume (Bld) [Entitic vol] 10.7 fL 6.2-12.0 [facility] Determination of erythrocyte mean corpuscular volume (MCV)Ordered By: Donato Sepulveda on 02-05-2023 MCV (RBC) [Entitic vol] 95.2 fL 81-99 [facility] Direct bilirubinOrdered By: Donato Sepulveda on 02-05-2023 Bilirubin.direct [Mass/Vol] 0.15 mg/dL 0.00-0.30 [facility] Hematocrit Auto (Bld) [Volum e fraction]Ordered By: Donato Sepulveda on 02-05-2023 Hematocrit (Bld) [Volume fraction] 39.8 % 37-47 [facility] Laboratory - Chemistry and C hemistry - challengeOrdered By: Donato Sepulveda on 02-05-2023 ALP [Catalytic activity/Vol] 73 U/L 45-117 [facility] ALT [Catalytic activity/Vol] 20 U/L 13-56 [facility] CO2 [Moles/Vol] 32.0 mmol/L 21.0-32.0 [facility] Globulin (S) [Mass/Vol] 3.5 g/dL 2.2-4.2 [facility] Urea nitrogen/Creatinine [Mass ratio] 20.8 mg/mg 10-20 [facility] Laboratory - Hematology and Cell countsOrdered By: Donato Sepulveda on 02-05-2023 Erythrocyte distribution width (RBC) [Entitic vol] 46.1 fL 35.1-43.9 [facility] Erythrocyte distribution width (RBC) [Ratio] 13.1 % 11.6-14.6 [facility] MCH (RBC) [Entitic mass] 28.9 pg 27.0-32.0 [facility] MCHC Auto (RBC) [Mass/Vol]Or dered By: Donato Sepulveda on 02-05-2023 MCHC (RBC) [Mass/Vol] 30.4 g/dL 32-36 [facility] No Panel InformationOrdered By: Donato Sepulveda on 02-05-2023 Estimated GFR (MDRD) Amer 93 mL/min >60 [facility] Comment on above: GFR Calc Estimated GFR (MDRD) Non-Af Amer 76 mL/min >60 [facility] Comment on above: Non- GFR Calc Platelets bldOrdered By: Sherwin Sepulveda on 02-05-2023 Platelets (Bld) [#/Vol] 183 10*3/uL 150-450 [facility] Serum or plasma albumin serge urement (mass/volume)Ordered By: Donato Sepulveda on 02-05-2023 Albumin [Mass/Vol] 3.4 g/dL 3.2-5.0 [facility] Serum or plasma albumin/glob ulin mass ratioOrdered By: Donato Sepulveda on 02-05-2023 Albumin/Globulin [Mass ratio] 1.0 {ratio} 0.9-2.4 [facility] Serum or plasma calcium serge urement (mass/volume)Ordered By: Donato Sepulveda on 02-05-2023 Calcium [Mass/Vol] 9.4 mg/dL 8.5-10.1 [facility] Serum or plasma creatinine m easurement (mass/volume)Ordered By: Donato Sepulveda on 02-05-2023 Creatinine [Mass/Vol] 0.77 mg/dL 0.55-1.02 [facility] Comment on above: The validity of the calculated GFR & GFRAA in patients over 70 years has not been determined. Clinical correlation is essential. Serum or plasma urea nitroge n measurement (mass/volume)Ordered By: Donato Sepulveda on 02-05-2023 Urea nitrogen [Mass/Vol] 16 mg/dL 7-18 [facility] Thin prep Papanicolaou smear with manual screeningOrdered By: Donato Sepulveda on 02-05-2023 Thin prep Papanicolaou smear with manual screening 18 U/L 15-37 [facility] Thin prep Papanicolaou smear with manual screening 5 5-15 [facility] Whole blood hemoglobin A1c/t otal hemoglobin ratio (mass fraction)Ordered By: Donato Sepulveda on 02-05-2023 HbA1c (Bld) [Mass fraction] 7.0 % 3.8-5.6 [facility] Comment on above: Normal < 5.7 % Predi abetic 5.7 - 6.4 % Diabetic >or= 6.5 % Please note range changes. Basophil percentageOrdered B y: Donato Sepulveda on 12-07-2022 Potassium [Moles/Vol] 4.7 mmol/L 3.5-5.1 [facility] Basophil percentageOrdered B y: Donato Sepulveda on 12-04-2022 Bilirubin [Mass/Vol] 0.30 mg/dL 0.20-1.00 [facility] Comment on above: For patients on eltr ombopag therapy, use of Dimension [place] TBIL is not recommended. Chloride [Moles/Vol] 102 mmol/L 98-107 [facility] Glucose [Mass/Vol] 219 mg/dL 74-106 [facility] Comment on above: Glucose result great er than or equal to 200 mg/dLsuggests DIABETES MELLITUS per A.D.A. criteria. Potassium [Moles/Vol] 2.9 mmol/L 3.5-5.1 [facility] Protein [Mass/Vol] 6.6 g/dL 6.4-8.2 [facility] Sodium [Moles/Vol] 137 mmol/L 136-145 [facility] WBC (Bld) [#/Vol] 4.6 10*3/uL 4.4-11.0 [facility] Blood erythrocytes count (nu mber/volume)Ordered By: Donato Sepulveda on 12-04-2022 RBC (Bld) [#/Vol] 4.22 10*6/uL 4.2-5.4 [facility] Blood hemoglobin measurement (mass/volume)Ordered By: Donato Sepulveda on 12-04-2022 Hemoglobin (Bld) [Mass/Vol] 12.4 g/dL 12.0-15.0 [facility] Blood platelet mean volumeOr dered By: Donato Sepulveda on 12-04-2022 Platelet mean volume (Bld) [Entitic vol] 10.7 fL 6.2-12.0 [facility] Determination of erythrocyte mean corpuscular volume (MCV)Ordered By: Donato Sepulveda on 12-04-2022 MCV (RBC) [Entitic vol] 93.8 fL 81-99 [facility] Hematocrit Auto (Bld) [Volum e fraction]Ordered By: Donato Sepulveda on 12-04-2022 Hematocrit (Bld) [Volume fraction] 39.6 % 37-47 [facility] Laboratory - Chemistry and C hemistry - challengeOrdered By: Donato Sepulveda on 12-04-2022 ALP [Catalytic activity/Vol] 85 U/L 45-117 [facility] ALT [Catalytic activity/Vol] 27 U/L 13-56 [facility] CO2 [Moles/Vol] 33.0 mmol/L 21.0-32.0 [facility] Globulin (S) [Mass/Vol] 3.6 g/dL 2.2-4.2 [facility] Urea nitrogen/Creatinine [Mass ratio] 13.7 mg/mg 10-20 [facility] Laboratory - Hematology and Cell countsOrdered By: Donato Sepulveda on 12-04-2022 Erythrocyte distribution width (RBC) [Entitic vol] 43.8 fL 35.1-43.9 [facility] Erythrocyte distribution width (RBC) [Ratio] 12.8 % 11.6-14.6 [facility] MCH (RBC) [Entitic mass] 29.4 pg 27.0-32.0 [facility] MCHC Auto (RBC) [Mass/Vol]Or dered By: Donato Sepulveda on 12-04-2022 MCHC (RBC) [Mass/Vol] 31.3 g/dL 32-36 [facility] No Panel InformationOrdered By: Donato Sepulveda on 12-04-2022 Estimated GFR (MDRD) Amer 80 mL/min >60 [facility] Comment on above: GFR Calc Estimated GFR (MDRD) Non-Af Amer 66 mL/min >60 [facility] Comment on above: Non- GFR Calc Vitamin D 25-Hydroxy 40.9 ng/mL [facility] Comment on above: Vitamin D 25(OH) Sta tus Range Deficiency <20 ng/mL (50nmol/L) Insufficiency 20 - 30 ng/mL (50 - 75 nmol/L) Sufficiency 30 - 100 ng/mL (75 - 250 nmol/L) Toxicity >100 ng/mL (>250 nmol/L) Platelets bldOrdered By: Sherwin Sepulveda on 12-04-2022 Platelets (Bld) [#/Vol] 167 10*3/uL 150-450 [facility] Serum or plasma albumin serge urement (mass/volume)Ordered By: Donato Sepulveda on 12-04-2022 Albumin [Mass/Vol] 3.0 g/dL 3.2-5.0 [facility] Serum or plasma albumin/glob ulin mass ratioOrdered By: Donato Sepulveda on 12-04-2022 Albumin/Globulin [Mass ratio] 0.8 {ratio} 0.9-2.4 [facility] Serum or plasma calcium serge urement (mass/volume)Ordered By: Donato Sepulveda on 12-04-2022 Calcium [Mass/Vol] 8.6 mg/dL 8.5-10.1 [facility] Serum or plasma creatinine m easurement (mass/volume)Ordered By: Donato Sepulveda on 12-04-2022 Creatinine [Mass/Vol] 0.88 mg/dL 0.55-1.02 [facility] Comment on above: The validity of the calculated GFR & GFRAA in patients over 70 years has not been determined. Clinical correlation is essential. Serum or plasma urea nitroge n measurement (mass/volume)Ordered By: Donato Sepulveda on 12-04-2022 Urea nitrogen [Mass/Vol] 12 mg/dL 7-18 [facility] Thin prep Papanicolaou smear with manual screeningOrdered By: Donato Sepulveda on 12-04-2022 Thin prep Papanicolaou smear with manual screening 31 U/L 15-37 [facility] Thin prep Papanicolaou smear with manual screening 2 5-15 [facility] Whole blood hemoglobin A1c/t otal hemoglobin ratio (mass fraction)Ordered By: Donato Sepulveda on 12-04-2022 HbA1c (Bld) [Mass fraction] 8.2 % 3.8-5.6 [facility] Comment on above: Normal < 5.7 % Predi abetic 5.7 - 6.4 % Diabetic >or= 6.5 % Please note range changes. Basophil percentageOrdered B y: Donato Sepulveda on 11-21-2022 Potassium [Moles/Vol] 3.3 mmol/L 3.5-5.1 [facility] Basophil percentageOrdered B y: Donato Sepulveda on 10-09-2022 Bilirubin [Mass/Vol] 0.40 mg/dL 0.20-1.00 [facility] Comment on above: For patients on eltr ombopag therapy, use of Dimension [place] TBIL is not recommended. Chloride [Moles/Vol] 104 mmol/L 98-107 [facility] Glucose [Mass/Vol] 135 mg/dL 74-106 [facility] Comment on above: Fasting Glucose resu lt greater than or equal to 126 mg/dL suggests DIABETES MELLITUS per A.D.A. criteria. Potassium [Moles/Vol] 3.1 mmol/L 3.5-5.1 [facility] Protein [Mass/Vol] 6.5 g/dL 6.4-8.2 [facility] Sodium [Moles/Vol] 141 mmol/L 136-145 [facility] WBC (Bld) [#/Vol] 6.8 10*3/uL 4.4-11.0 [facility] Blood erythrocytes count (nu mber/volume)Ordered By: Donato Sepulveda on 10-09-2022 RBC (Bld) [#/Vol] 3.95 10*6/uL 4.2-5.4 [facility] Blood hemoglobin measurement (mass/volume)Ordered By: Donato Sepulveda on 10-09-2022 Hemoglobin (Bld) [Mass/Vol] 11.7 g/dL 12.0-15.0 [facility] Blood platelet mean volumeOr dered By: Donato Sepulveda on 10-09-2022 Platelet mean volume (Bld) [Entitic vol] 10.7 fL 6.2-12.0 [facility] Determination of erythrocyte mean corpuscular volume (MCV)Ordered By: Donato Sepulveda on 10-09-2022 MCV (RBC) [Entitic vol] 94.4 fL 81-99 [facility] Hematocrit Auto (Bld) [Volum e fraction]Ordered By: Donato Sepulveda on 10-09-2022 Hematocrit (Bld) [Volume fraction] 37.3 % 37-47 [facility] Laboratory - Chemistry and C hemistry - challengeOrdered By: Donato Sepulveda on 10-09-2022 ALP [Catalytic activity/Vol] 61 U/L 45-117 [facility] ALT [Catalytic activity/Vol] 16 U/L 13-56 [facility] CO2 [Moles/Vol] 34.0 mmol/L 21.0-32.0 [facility] Globulin (S) [Mass/Vol] 3.3 g/dL 2.2-4.2 [facility] Urea nitrogen/Creatinine [Mass ratio] 13.5 mg/mg 10-20 [facility] Laboratory - Hematology and Cell countsOrdered By: Donato Sepulveda on 10-09-2022 Erythrocyte distribution width (RBC) [Entitic vol] 44.6 fL 35.1-43.9 [facility] Erythrocyte distribution width (RBC) [Ratio] 12.8 % 11.6-14.6 [facility] MCH (RBC) [Entitic mass] 29.6 pg 27.0-32.0 [facility] MCHC Auto (RBC) [Mass/Vol]Or dered By: Donato Sepulveda on 10-09-2022 MCHC (RBC) [Mass/Vol] 31.4 g/dL 32-36 [facility] No Panel InformationOrdered By: Donato Sepulveda on 10-09-2022 Estimated GFR (MDRD) Amer 97 mL/min >60 [facility] Comment on above: GFR Calc Estimated GFR (MDRD) Non-Af Amer 80 mL/min >60 [facility] Comment on above: Non- GFR Calc Platelets bldOrdered By: Sherwin Sepulveda on 10-09-2022 Platelets (Bld) [#/Vol] 157 10*3/uL 150-450 [facility] Serum or plasma albumin serge urement (mass/volume)Ordered By: Donato Sepulveda on 10-09-2022 Albumin [Mass/Vol] 3.2 g/dL 3.2-5.0 [facility] Serum or plasma albumin/glob ulin mass ratioOrdered By: Donato Sepulveda on 10-09-2022 Albumin/Globulin [Mass ratio] 1.0 {ratio} 0.9-2.4 [facility] Serum or plasma calcium serge urement (mass/volume)Ordered By: Donato Sepulveda on 10-09-2022 Calcium [Mass/Vol] 9.1 mg/dL 8.5-10.1 [facility] Serum or plasma creatinine m easurement (mass/volume)Ordered By: Donato Sepulveda on 10-09-2022 Creatinine [Mass/Vol] 0.74 mg/dL 0.55-1.02 [facility] Comment on above: The validity of the calculated GFR & GFRAA in patients over 70 years has not been determined. Clinical correlation is essential. Serum or plasma urea nitroge n measurement (mass/volume)Ordered By: Donato Sepulveda on 10-09-2022 Urea nitrogen [Mass/Vol] 10 mg/dL 7-18 [facility] Thin prep Papanicolaou smear with manual screeningOrdered By: Donato Sepulveda on 10-09-2022 Thin prep Papanicolaou smear with manual screening 15 U/L 15-37 [facility] Thin prep Papanicolaou smear with manual screening 3 5-15 [facility] Basophil percentageOrdered B y: Basilio Flores on 10-05-2022 Cholesterol [Mass/Vol] 146 mg/dL <200 [facility] Comment on above: <200 mg/dL Desirable 200-240 mg/dL Borderline >240 mg/dL High Risk Triglyceride [Mass/Vol] 83 mg/dL <199 [facility] Comment on above: The drugs N-Acetylcy steine and Metamizole may falsely depress this assay.Serum Triglycerides Reference Interval Normal <150 mg/dL Borderline high 150 - 199 mg/dL High 200 - 499 mg/dL Very High > or = 500 mg/dL Serum or plasma cholesterol in HDL measurement (mass/volume)Ordered By: Basilio Flores on 10-05-2022 Cholesterol in HDL [Mass/Vol] 69 mg/dL >40 [facility] Comment on above: The drugs N-Acetylcy steine and Metamizole may falsely depress this assay. Reference Range HDL <40 mg/dL Low HDL Cholesterol HDL >or= 60 mg/dL High HDL Cholesterol Serum or plasma cholesterol in VLDL measurement (mass/volume)Ordered By: Basilio Flores on 10-05-2022 Cholesterol in VLDL [Mass/Vol] 17 mg/dL 5-40 [facility] Serum or plasma low density lipoprotein (LDL) cholesterol measurement (mass/volume)Ordered By: Basilio Flores on 10-05-2022 Cholesterol in LDL [Mass/Vol] 60 mg/dL 0-130 [facility] Basophil percentageOrdered B y: Donato Sepulveda on 10-04-2022 Cholesterol [Mass/Vol] 154 mg/dL <200 [facility] Comment on above: <200 mg/dL Desirable 200-240 mg/dL Borderline >240 mg/dL High Risk Triglyceride [Mass/Vol] 72 mg/dL <199 [facility] Comment on above: The drugs N-Acetylcy steine and Metamizole may falsely depress this assay.Serum Triglycerides Reference Interval Normal <150 mg/dL Borderline high 150 - 199 mg/dL High 200 - 499 mg/dL Very High > or = 500 mg/dL Serum or plasma cholesterol in HDL measurement (mass/volume)Ordered By: Donato Sepulveda on 10-04-2022 Cholesterol in HDL [Mass/Vol] 70 mg/dL >40 [facility] Comment on above: The drugs N-Acetylcy steine and Metamizole may falsely depress this assay. Reference Range HDL <40 mg/dL Low HDL Cholesterol HDL >or= 60 mg/dL High HDL Cholesterol Serum or plasma cholesterol in VLDL measurement (mass/volume)Ordered By: Donato Sepulveda on 10-04-2022 Cholesterol in VLDL [Mass/Vol] 14 mg/dL 5-40 [facility] Serum or plasma low density lipoprotein (LDL) cholesterol measurement (mass/volume)Ordered By: Donato Sepulveda on 10-04-2022 Cholesterol in LDL [Mass/Vol] 70 mg/dL 0-130 [facility] No Panel InformationOrdered By: Basilio Flores on 09-04-2022 Vitamin D 25-Hydroxy 54.3 ng/mL [facility] Comment on above: Vitamin D 25(OH) Sta tus Range Deficiency <20 ng/mL (50nmol/L) Insufficiency 20 - 30 ng/mL (50 - 75 nmol/L) Sufficiency 30 - 100 ng/mL (75 - 250 nmol/L) Toxicity >100 ng/mL (>250 nmol/L) Whole blood hemoglobin A1c/t otal hemoglobin ratio (mass fraction)Ordered By: Basilio Flores on 09-04-2022 HbA1c (Bld) [Mass fraction] 10.9 % 3.8-5.6 [facility] Comment on above: Normal < 5.7 % Predi abetic 5.7 - 6.4 % Diabetic >or= 6.5 % Please note range changes. Basophil percentageOrdered B y: Donato Sepulveda on 08-07-2022 Bilirubin [Mass/Vol] 0.60 mg/dL 0.20-1.00 [facility] Comment on above: For patients on eltr ombopag therapy, use of Dimension [place] TBIL is not recommended. Chloride [Moles/Vol] 98 mmol/L 98-107 [facility] Glucose [Mass/Vol] 432 mg/dL 74-106 [facility] Comment on above: Glucose result great er than or equal to 200 mg/dLsuggests DIABETES MELLITUS per A.D.A. criteria. Potassium [Moles/Vol] 3.5 mmol/L 3.5-5.1 [facility] Protein [Mass/Vol] 6.8 g/dL 6.4-8.2 [facility] Sodium [Moles/Vol] 136 mmol/L 136-145 [facility] WBC (Bld) [#/Vol] 4.7 10*3/uL 4.4-11.0 [facility] Blood erythrocytes count (nu mber/volume)Ordered By: Donato Sepulveda on 08-07-2022 RBC (Bld) [#/Vol] 4.19 10*6/uL 4.2-5.4 [facility] Blood hemoglobin measurement (mass/volume)Ordered By: Donato Sepulveda on 08-07-2022 Hemoglobin (Bld) [Mass/Vol] 12.2 g/dL 12.0-15.0 [facility] Blood platelet mean volumeOr dered By: Donato Sepulveda on 08-07-2022 Platelet mean volume (Bld) [Entitic vol] 10.5 fL 6.2-12.0 [facility] Determination of erythrocyte mean corpuscular volume (MCV)Ordered By: Donato Sepulveda on 08-07-2022 MCV (RBC) [Entitic vol] 92.8 fL 81-99 [facility] Hematocrit Auto (Bld) [Volum e fraction]Ordered By: Donato Sepulveda on 08-07-2022 Hematocrit (Bld) [Volume fraction] 38.9 % 37-47 [facility] Laboratory - Chemistry and C hemistry - challengeOrdered By: [facility] on 08-07-2022 ALP [Catalytic activity/Vol] 70 U/L 45-117 [facility] ALT [Catalytic activity/Vol] 19 U/L 13-56 [facility] CO2 [Moles/Vol] 36.0 mmol/L 21.0-32.0 [facility] Globulin (S) [Mass/Vol] 3.4 g/dL 2.2-4.2 [facility] Magnesium [Mass/Vol] 1.8 mg/dL 1.6-2.6 [facility] Urea nitrogen/Creatinine [Mass ratio] 15.1 mg/mg 10-20 [facility] Laboratory - Hematology and Cell countsOrdered By: Rauldunsmuirchar Sepulveda on 08-07-2022 Erythrocyte distribution width (RBC) [Entitic vol] 44.1 fL 35.1-43.9 [facility] Erythrocyte distribution width (RBC) [Ratio] 13.0 % 11.6-14.6 [facility] MCH (RBC) [Entitic mass] 29.1 pg 27.0-32.0 [facility] MCHC Auto (RBC) [Mass/Vol]Or dered By: Donato Sepulveda on 08-07-2022 MCHC (RBC) [Mass/Vol] 31.4 g/dL 32-36 [facility] No Panel InformationOrdered By: Donato Sepulveda on 08-07-2022 Estimated GFR (MDRD) Amer 64 mL/min >60 [facility] Comment on above: GFR Calc Estimated GFR (MDRD) Non-Af Amer 53 mL/min >60 [facility] Comment on above: Non- GFR Calc Platelets bldOrdered By: Sherwin Sepulveda on 08-07-2022 Platelets (Bld) [#/Vol] 165 10*3/uL 150-450 [facility] Serum or plasma albumin serge urement (mass/volume)Ordered By: Donato Sepulveda on 08-07-2022 Albumin [Mass/Vol] 3.4 g/dL 3.2-5.0 [facility] Serum or plasma albumin/glob ulin mass ratioOrdered By: Donato Sepulveda on 08-07-2022 Albumin/Globulin [Mass ratio] 1.0 {ratio} 0.9-2.4 [facility] Serum or plasma calcium serge urement (mass/volume)Ordered By: Donato Sepulveda on 08-07-2022 Calcium [Mass/Vol] 9.7 mg/dL 8.5-10.1 [facility] Serum or plasma creatinine m easurement (mass/volume)Ordered By: Donato Sepulveda on 08-07-2022 Creatinine [Mass/Vol] 1.06 mg/dL 0.55-1.02 [facility] Comment on above: The validity of the calculated GFR & GFRAA in patients over 70 years has not been determined. Clinical correlation is essential. Serum or plasma urea nitroge n measurement (mass/volume)Ordered By: Donato Sepulveda on 08-07-2022 Urea nitrogen [Mass/Vol] 16 mg/dL 7-18 [facility] Thin prep Papanicolaou smear with manual screeningOrdered By: Donato Sepulveda on 08-07-2022 Thin prep Papanicolaou smear with manual screening 15 U/L 15-37 [facility] Thin prep Papanicolaou smear with manual screening 2 5-15 [facility] Basophil percentageOrdered B y: Basilio Flores on 06-12-2022 Bilirubin [Mass/Vol] 1.10 mg/dL 0.20-1.00 [facility] Comment on above: For patients on eltr ombopag therapy, use of Dimension [place] TBIL is not recommended. Chloride [Moles/Vol] 99 mmol/L 98-107 [facility] Glucose [Mass/Vol] 163 mg/dL 74-106 [facility] Comment on above: Fasting Glucose resu lt greater than or equal to 126 mg/dL suggests DIABETES MELLITUS per A.D.A. criteria. Potassium [Moles/Vol] 3.4 mmol/L 3.5-5.1 [facility] Protein [Mass/Vol] 7.4 g/dL 6.4-8.2 [facility] Sodium [Moles/Vol] 141 mmol/L 136-145 [facility] WBC (Bld) [#/Vol] 8.0 10*3/uL 4.4-11.0 [facility] Blood erythrocytes count (nu mber/volume)Ordered By: Basilio Flores on 06-12-2022 RBC (Bld) [#/Vol] 4.53 10*6/uL 4.2-5.4 [facility] Blood hemoglobin measurement (mass/volume)Ordered By: Basilio Flores on 06-12-2022 Hemoglobin (Bld) [Mass/Vol] 13.2 g/dL 12.0-15.0 [facility] Blood platelet mean volumeOr dered By: Basilio Flores on 06-12-2022 Platelet mean volume (Bld) [Entitic vol] 10.4 fL 6.2-12.0 [facility] Determination of erythrocyte mean corpuscular volume (MCV)Ordered By: Basilio Flores on 06-12-2022 MCV (RBC) [Entitic vol] 90.5 fL 81-99 [facility] Hematocrit Auto (Bld) [Volum e fraction]Ordered By: Basilio Flores on 06-12-2022 Hematocrit (Bld) [Volume fraction] 41.0 % 37-47 [facility] Laboratory - Chemistry and C hemistry - challengeOrdered By: Basilio Flores on 06-12-2022 ALP [Catalytic activity/Vol] 88 U/L 45-117 [facility] ALT [Catalytic activity/Vol] 20 U/L 13-56 [facility] CO2 [Moles/Vol] 34.0 mmol/L 21.0-32.0 [facility] Globulin (S) [Mass/Vol] 3.7 g/dL 2.2-4.2 [facility] Urea nitrogen/Creatinine [Mass ratio] 15.1 mg/mg 10-20 [facility] Laboratory - Hematology and Cell countsOrdered By: Basilio Flores on 06-12-2022 Erythrocyte distribution width (RBC) [Entitic vol] 42.0 fL 35.1-43.9 [facility] Erythrocyte distribution width (RBC) [Ratio] 12.8 % 11.6-14.6 [facility] MCH (RBC) [Entitic mass] 29.1 pg 27.0-32.0 [facility] MCHC Auto (RBC) [Mass/Vol]Or dered By: Basilio Flores on 06-12-2022 MCHC (RBC) [Mass/Vol] 32.2 g/dL 32-36 [facility] No Panel InformationOrdered By: Basilio Flores on 06-12-2022 Estimated GFR (MDRD) Amer 82 mL/min >60 [facility] Comment on above: GFR Calc Estimated GFR (MDRD) Non-Af Amer 67 mL/min >60 [facility] Comment on above: Non- GFR Calc Vitamin D 25-Hydroxy 49.1 ng/mL [facility] Comment on above: Vitamin D 25(OH) Sta tus Range Deficiency <20 ng/mL (50nmol/L) Insufficiency 20 - 30 ng/mL (50 - 75 nmol/L) Sufficiency 30 - 100 ng/mL (75 - 250 nmol/L) Toxicity >100 ng/mL (>250 nmol/L) Platelets bldOrdered By: August Flores on 06-12-2022 Platelets (Bld) [#/Vol] 188 10*3/uL 150-450 [facility] Serum or plasma albumin serge urement (mass/volume)Ordered By: Basilio Flores on 06-12-2022 Albumin [Mass/Vol] 3.7 g/dL 3.2-5.0 [facility] Serum or plasma albumin/glob ulin mass ratioOrdered By: Basilio Flores on 06-12-2022 Albumin/Globulin [Mass ratio] 1.0 {ratio} 0.9-2.4 [facility] Serum or plasma calcium serge urement (mass/volume)Ordered By: Basilio Flores on 06-12-2022 Calcium [Mass/Vol] 9.5 mg/dL 8.5-10.1 [facility] Serum or plasma creatinine m easurement (mass/volume)Ordered By: Basilio Flores on 06-12-2022 Creatinine [Mass/Vol] 0.86 mg/dL 0.55-1.02 [facility] Comment on above: The validity of the calculated GFR & GFRAA in patients over 70 years has not been determined. Clinical correlation is essential. Serum or plasma urea nitroge n measurement (mass/volume)Ordered By: Basiilo Flores on 06-12-2022 Urea nitrogen [Mass/Vol] 13 mg/dL 7-18 [facility] Thin prep Papanicolaou smear with manual screeningOrdered By: Basilio Flores on 06-12-2022 Thin prep Papanicolaou smear with manual screening 18 U/L 15-37 [facility] Thin prep Papanicolaou smear with manual screening 8 5-15 [facility] Whole blood hemoglobin A1c/t otal hemoglobin ratio (mass fraction)Ordered By: Basilio Flores on 06-12-2022 HbA1c (Bld) [Mass fraction] 9.2 % 3.8-5.6 [facility] Comment on above: Normal < 5.7 % Predi abetic 5.7 - 6.4 % Diabetic >or= 6.5 % Please note range changes. Basophil percentageOrdered B y: Donato Sepuvleda on 04-17-2022 Chloride [Moles/Vol] 97 mmol/L 98-107 [facility] Glucose [Mass/Vol] 328 mg/dL 74-106 [facility] Comment on above: Glucose result great er than or equal to 200 mg/dLsuggests DIABETES MELLITUS per A.D.A. criteria. Potassium [Moles/Vol] 3.6 mmol/L 3.5-5.1 [facility] Sodium [Moles/Vol] 137 mmol/L 136-145 [facility] Laboratory - Chemistry and C hemistry - challengeOrdered By: Donato Sepulveda on 04-17-2022 CO2 [Moles/Vol] 36.0 mmol/L 21.0-32.0 [facility] Urea nitrogen/Creatinine [Mass ratio] 13.7 mg/mg 10-20 [facility] No Panel InformationOrdered By: Donato Sepulveda on 04-17-2022 Estimated GFR (MDRD) Amer 73 mL/min >60 [facility] Comment on above: GFR Calc Estimated GFR (MDRD) Non-Af Amer 60 mL/min >60 [facility] Comment on above: Non- GFR Calc Serum or plasma calcium serge urement (mass/volume)Ordered By: Donato Sepulveda on 04-17-2022 Calcium [Mass/Vol] 9.5 mg/dL 8.5-10.1 [facility] Serum or plasma creatinine m easurement (mass/volume)Ordered By: Donato Sepulveda on 04-17-2022 Creatinine [Mass/Vol] 0.95 mg/dL 0.55-1.02 [facility] Comment on above: The validity of the calculated GFR & GFRAA in patients over 70 years has not been determined. Clinical correlation is essential. Serum or plasma urea nitroge n measurement (mass/volume)Ordered By: Donato Sepulveda on 04-17-2022 Urea nitrogen [Mass/Vol] 13 mg/dL 7-18 [facility] Thin prep Papanicolaou smear with manual screeningOrdered By: studunsmuirchar Sepulveda on 04-17-2022 Thin prep Papanicolaou smear with manual screening 4 5-15 [facility] Basophil percentageOrdered B y: Donato Sepulveda on 04-13-2022 Potassium [Moles/Vol] 3.2 mmol/L 3.5-5.1 [facility] Basophil percentageOrdered B y: Basilio Flores on 04-10-2022 Bilirubin [Mass/Vol] 0.50 mg/dL 0.20-1.00 [facility] Comment on above: For patients on eltr ombopag therapy, use of Dimension [place] TBIL is not recommended. Chloride [Moles/Vol] 97 mmol/L 98-107 [facility] Glucose [Mass/Vol] 366 mg/dL 74-106 [facility] Comment on above: Glucose result great er than or equal to 200 mg/dLsuggests DIABETES MELLITUS per A.D.A. criteria. Potassium [Moles/Vol] 3.1 mmol/L 3.5-5.1 [facility] Protein [Mass/Vol] 7.3 g/dL 6.4-8.2 [facility] Sodium [Moles/Vol] 136 mmol/L 136-145 [facility] WBC (Bld) [#/Vol] 6.4 10*3/uL 4.4-11.0 [facility] Blood erythrocytes count (nu mber/volume)Ordered By: Basilio Flores on 04-10-2022 RBC (Bld) [#/Vol] 4.33 10*6/uL 4.2-5.4 [facility] Blood hemoglobin measurement (mass/volume)Ordered By: Basilio Flores on 04-10-2022 Hemoglobin (Bld) [Mass/Vol] 12.7 g/dL 12.0-15.0 [facility] Blood platelet mean volumeOr dered By: Basilio Flores on 04-10-2022 Platelet mean volume (Bld) [Entitic vol] 10.8 fL 6.2-12.0 [facility] Determination of erythrocyte mean corpuscular volume (MCV)Ordered By: Basilio Flores on 04-10-2022 MCV (RBC) [Entitic vol] 91.5 fL 81-99 [facility] Hematocrit Auto (Bld) [Volum e fraction]Ordered By: Basilio Flores on 04-10-2022 Hematocrit (Bld) [Volume fraction] 39.6 % 37-47 [facility] Laboratory - Chemistry and C hemistry - challengeOrdered By: Basilio Flores on 04-10-2022 ALP [Catalytic activity/Vol] 90 U/L 45-117 [facility] ALT [Catalytic activity/Vol] 24 U/L 13-56 [facility] CO2 [Moles/Vol] 37.0 mmol/L 21.0-32.0 [facility] Globulin (S) [Mass/Vol] 4.0 g/dL 2.2-4.2 [facility] Urea nitrogen/Creatinine [Mass ratio] 14.5 mg/mg 10-20 [facility] Laboratory - Hematology and Cell countsOrdered By: Basilio Flores on 04-10-2022 Erythrocyte distribution width (RBC) [Entitic vol] 42.4 fL 35.1-43.9 [facility] Erythrocyte distribution width (RBC) [Ratio] 12.6 % 11.6-14.6 [facility] MCH (RBC) [Entitic mass] 29.3 pg 27.0-32.0 [facility] ([facility] [Mass/Vol]Or dered By: Basilio Flores on 04-10-2022 MCHC (RBC) [Mass/Vol] 32.1 g/dL 32-36 [facility] No Panel InformationOrdered By: Basilio Flores on 04-10-2022 Estimated GFR (MDRD) Amer 78 mL/min >60 [facility] Comment on above: GFR Calc Estimated GFR (MDRD) Non-Af Amer 64 mL/min >60 [facility] Comment on above: Non- GFR Calc Platelets bldOrdered By: August Flores on 04-10-2022 Platelets (Bld) [#/Vol] 216 10*3/uL 150-450 [facility] Serum or plasma albumin serge urement (mass/volume)Ordered By: Basilio Flores on 04-10-2022 Albumin [Mass/Vol] 3.3 g/dL 3.2-5.0 [facility] Serum or plasma albumin/glob ulin mass ratioOrdered By: Basilio Flores on 04-10-2022 Albumin/Globulin [Mass ratio] 0.8 {ratio} 0.9-2.4 [facility] Serum or plasma calcium serge urement (mass/volume)Ordered By: Basilio Flores on 04-10-2022 Calcium [Mass/Vol] 9.1 mg/dL 8.5-10.1 [facility] Serum or plasma creatinine m easurement (mass/volume)Ordered By: Basilio Flores on 04-10-2022 Creatinine [Mass/Vol] 0.90 mg/dL 0.55-1.02 [facility] Comment on above: The validity of the calculated GFR & GFRAA in patients over 70 years has not been determined. Clinical correlation is essential. Serum or plasma urea nitroge n measurement (mass/volume)Ordered By: Basilio Flores on 04-10-2022 Urea nitrogen [Mass/Vol] 13 mg/dL 7-18 [facility] Thin prep Papanicolaou smear with manual screeningOrdered By: Basilio Flores on 04-10-2022 Thin prep Papanicolaou smear with manual screening 22 U/L 15-37 [facility] Thin prep Papanicolaou smear with manual screening 2 5-15 [facility] No Panel InformationOrdered By: Basilio Flores on 03-06-2022 Vitamin D 25-Hydroxy 57.1 ng/mL [facility] Comment on above: Vitamin D 25(OH) Sta tus Range Deficiency <20 ng/mL (50nmol/L) Insufficiency 20 - 30 ng/mL (50 - 75 nmol/L) Sufficiency 30 - 100 ng/mL (75 - 250 nmol/L) Toxicity >100 ng/mL (>250 nmol/L) Whole blood hemoglobin A1c/t otal hemoglobin ratio (mass fraction)Ordered By: Basilio Flores on 03-06-2022 HbA1c (Bld) [Mass fraction] 7.4 % 3.8-5.6 [facility] Comment on above: Normal < 5.7 % Predi abetic 5.7 - 6.4 % Diabetic >or= 6.5 % Please note range changes. Basophil percentageon 2021 Bilirubin [Mass/Vol] 0.90 mg/dL 0.20-1.00 [facility] Work Phone: Comment on above: For patients on eltr ombopag therapy, use of Dimension [place] TBIL is not recommended. Chloride [Moles/Vol] 102 mmol/L 98-107 [facility] Work Phone: Glucose [Mass/Vol] 198 mg/dL 74-106 [facility] Work Phone: Comment on above: Fasting Glucose resu lt greater than or equal to 126 mg/dL suggests DIABETES MELLITUS per A.D.A. criteria. Potassium [Moles/Vol] 4.3 mmol/L 3.5-5.1 [facility] Work Phone: Protein [Mass/Vol] 7.3 g/dL 6.4-8.2 [facility] Work Phone: Sodium [Moles/Vol] 140 mmol/L 136-145 [facility] Work Phone: WBC (Bld) [#/Vol] 5.8 10*3/uL 4.4-11.0 [facility] Work Phone: Blood erythrocytes count (nu mber/volume)on 02-06-2022 RBC (Bld) [#/Vol] 4.46 10*6/uL 4.2-5.4 [facility] Work Phone: Blood hemoglobin measurement (mass/volume)on 02-06-2022 Hemoglobin (Bld) [Mass/Vol] 13.1 g/dL 12.0-15.0 [facility] Work Phone: Blood platelet mean volumeon 02-06-2022 Platelet mean volume (Bld) [Entitic vol] 10.5 fL 6.2-12.0 [facility] Work Phone: Determination of erythrocyte mean corpuscular volume (MCV)on 02-06-2022 MCV (RBC) [Entitic vol] 93.3 fL 81-99 [facility] Work Phone: Hematocrit Auto (Bld) [Volum e fraction]on 02-06-2022 Hematocrit (Bld) [Volume fraction] 41.6 % 37-47 [facility] Work Phone: Laboratory - Chemistry and C hemistry - challengeon 02-06-2022 ALP [Catalytic activity/Vol] 96 U/L 45-117 [facility] Work Phone: ALT [Catalytic activity/Vol] 22 U/L 13-56 [facility] Work Phone: CO2 [Moles/Vol] 32.0 mmol/L 21.0-32.0 [facility] Work Phone: Globulin (S) [Mass/Vol] 3.7 g/dL 2.2-4.2 [facility] Work Phone: Urea nitrogen/Creatinine [Mass ratio] 20.2 mg/mg 10-20 [facility] Work Phone: Laboratory - Hematology and Cell countson 02-06-2022 Erythrocyte distribution width (RBC) [Entitic vol] 46.5 fL 35.1-43.9 [facility] Work Phone: Erythrocyte distribution width (RBC) [Ratio] 13.5 % 11.6-14.6 [facility] Work Phone: MCH (RBC) [Entitic mass] 29.4 pg 27.0-32.0 [facility] Work Phone: MCHC Auto (RBC) [Mass/Vol]on 02-06-2022 MCHC (RBC) [Mass/Vol] 31.5 g/dL 32-36 [facility] Work Phone: No Panel Informationon 02-06 Estimated GFR (MDRD) Amer 66 mL/min >60 [facility] Work Phone: Comment on above: GFR Calc Estimated GFR (MDRD) Non-Af Amer 54 mL/min >60 [facility] Work Phone: Comment on above: Non- GFR Calc Platelets bldon 02-06-2022 Platelets (Bld) [#/Vol] 176 10*3/uL 150-450 [facility] Work Phone: Serum or plasma albumin serge urement (mass/volume)on 02-06-2022 Albumin [Mass/Vol] 3.6 g/dL 3.2-5.0 [facility] Work Phone: Serum or plasma albumin/glob ulin mass ratioon 02-06-2022 Albumin/Globulin [Mass ratio] 1.0 {ratio} 0.9-2.4 [facility] Work Phone: Serum or plasma calcium serge urement (mass/volume)on 02-06-2022 Calcium [Mass/Vol] 9.5 mg/dL 8.5-10.1 [facility] Work Phone: Serum or plasma creatinine m easurement (mass/volume)on 02-06-2022 Creatinine [Mass/Vol] 1.04 mg/dL 0.55-1.02 [facility] Work Phone: Comment on above: The validity of the calculated GFR & GFRAA in patients over 70 years has not been determined. Clinical correlation is essential. Serum or plasma urea nitroge n measurement (mass/volume)on 02-06-2022 Urea nitrogen [Mass/Vol] 21 mg/dL 7-18 [facility] Work Phone: Thin prep Papanicolaou smear with manual screeningon 02-06-2022 Thin prep Papanicolaou smear with manual screening 20 U/L 15-37 [facility] Work Phone: Thin prep Papanicolaou smear with manual screening 6 5-15 [facility] Work Phone: Basophil percentageon 2021 Bilirubin [Mass/Vol] 0.50 mg/dL 0.20-1.00 [facility] Work Phone: Comment on above: For patients on eltr ombopag therapy, use of Dimension [place] TBIL is not recommended. Chloride [Moles/Vol] 106 mmol/L 98-107 [facility] Work Phone: Glucose [Mass/Vol] 149 mg/dL 74-106 [facility] Work Phone: Comment on above: Fasting Glucose resu lt greater than or equal to 126 mg/dL suggests DIABETES MELLITUS per A.D.A. criteria. Potassium [Moles/Vol] 3.6 mmol/L 3.5-5.1 [facility] Work Phone: Protein [Mass/Vol] 6.7 g/dL 6.4-8.2 [facility] Work Phone: Sodium [Moles/Vol] 142 mmol/L 136-145 [facility] Work Phone: WBC (Bld) [#/Vol] 6.0 10*3/uL 4.4-11.0 [facility] Work Phone: Blood erythrocytes count (nu mber/volume)on 12-05-2021 RBC (Bld) [#/Vol] 4.12 10*6/uL 4.2-5.4 [facility] Work Phone: Blood hemoglobin measurement (mass/volume)on 12-05-2021 Hemoglobin (Bld) [Mass/Vol] 11.9 g/dL 12.0-15.0 [facility] Work Phone: Blood platelet mean volumeon 12-05-2021 Platelet mean volume (Bld) [Entitic vol] 10.9 fL 6.2-12.0 [facility] Work Phone: Determination of erythrocyte mean corpuscular volume (MCV)on 12-05-2021 MCV (RBC) [Entitic vol] 92.5 fL 81-99 [facility] Work Phone: Hematocrit Auto (Bld) [Volum e fraction]on 12-05-2021 Hematocrit (Bld) [Volume fraction] 38.1 % 37-47 [facility] Work Phone: Laboratory - Chemistry and C hemistry - challengeon 12-05-2021 ALP [Catalytic activity/Vol] 86 U/L 45-117 [facility] Work Phone: ALT [Catalytic activity/Vol] 17 U/L 13-56 [facility] Work Phone: CO2 [Moles/Vol] 34.0 mmol/L 21.0-32.0 [facility] Work Phone: Globulin (S) [Mass/Vol] 3.6 g/dL 2.2-4.2 [facility] Work Phone: Urea nitrogen/Creatinine [Mass ratio] 14.5 mg/mg 10-20 [facility] Work Phone: Laboratory - Hematology and Cell countson 12-05-2021 Erythrocyte distribution width (RBC) [Entitic vol] 45.8 fL 35.1-43.9 [facility] Work Phone: Erythrocyte distribution width (RBC) [Ratio] 13.4 % 11.6-14.6 [facility] Work Phone: MCH (RBC) [Entitic mass] 28.9 pg 27.0-32.0 [facility] Work Phone: MCHC Auto (RBC) [Mass/Vol]on 12-05-2021 MCHC (RBC) [Mass/Vol] 31.2 g/dL 32-36 [facility] Work Phone: No Panel Informationon 12-05 Estimated GFR (MDRD) Amer 78 mL/min >60 [facility] Work Phone: Comment on above: GFR Calc Estimated GFR (MDRD) Non-Af Amer 64 mL/min >60 [facility] Work Phone: Comment on above: Non- GFR Calc Vitamin D 25-Hydroxy 90.8 ng/mL [facility] Work Phone: Comment on above: Vitamin D 25(OH) Sta tus Range Deficiency <20 ng/mL (50nmol/L) Insufficiency 20 - 30 ng/mL (50 - 75 nmol/L) Sufficiency 30 - 100 ng/mL (75 - 250 nmol/L) Toxicity >100 ng/mL (>250 nmol/L) Platelets bldon 12-05-2021 Platelets (Bld) [#/Vol] 162 10*3/uL 150-450 [facility] Work Phone: Serum or plasma albumin serge urement (mass/volume)on 12-05-2021 Albumin [Mass/Vol] 3.1 g/dL 3.2-5.0 [facility] Work Phone: Serum or plasma albumin/glob ulin mass ratioon 12-05-2021 Albumin/Globulin [Mass ratio] 0.9 {ratio} 0.9-2.4 [facility] Work Phone: Serum or plasma calcium serge urement (mass/volume)on 12-05-2021 Calcium [Mass/Vol] 9.3 mg/dL 8.5-10.1 [facility] Work Phone: Serum or plasma creatinine m easurement (mass/volume)on 12-05-2021 Creatinine [Mass/Vol] 0.90 mg/dL 0.55-1.02 [facility] Work Phone: Comment on above: The validity of the calculated GFR & GFRAA in patients over 70 years has not been determined. Clinical correlation is essential. Serum or plasma urea nitroge n measurement (mass/volume)on 12-05-2021 Urea nitrogen [Mass/Vol] 13 mg/dL 7-18 [facility] Work Phone: Thin prep Papanicolaou smear with manual screeningon 12-05-2021 Thin prep Papanicolaou smear with manual screening 18 U/L 15-37 [facility] Work Phone: Thin prep Papanicolaou smear with manual screening 2 5-15 [facility] Work Phone: Whole blood hemoglobin A1c/t otal hemoglobin ratio (mass fraction)on 12-05-2021 HbA1c (Bld) [Mass fraction] 7.4 % 3.8-5.6 [facility] Work Phone: Comment on above: Normal < 5.7 % Predi abetic 5.7 - 6.4 % Diabetic >or= 6.5 % Please note range changes. Whole blood hemoglobin A1c/t otal hemoglobin ratio (mass fraction)on 11-14-2021 HbA1c (Bld) [Mass fraction] 8.5 % 3.8-5.6 [facility] Work Phone: Comment on above: Normal < 5.7 % Predi abetic 5.7 - 6.4 % Diabetic >or= 6.5 % Please note range changes. Whole blood hemoglobin A1c/t otal hemoglobin ratio (mass fraction)on 10-17-2021 HbA1c (Bld) [Mass fraction] 7.7 % 3.8-5.6 [facility] Work Phone: Comment on above: Normal < 5.7 % Predi abetic 5.7 - 6.4 % Diabetic >or= 6.5 % Please note range changes. Basophil percentageon 2021 Bilirubin [Mass/Vol] 0.40 mg/dL 0.20-1.00 [facility] Work Phone: Comment on above: For patients on eltr ombopag therapy, use of Dimension [place] TBIL is not recommended. Chloride [Moles/Vol] 105 mmol/L 98-107 [facility] Work Phone: Cholesterol [Mass/Vol] 130 mg/dL <200 [facility] Work Phone: Comment on above: <200 mg/dL Desirable 200-240 mg/dL Borderline >240 mg/dL High Risk Glucose [Mass/Vol] 127 mg/dL 74-106 [facility] Work Phone: Comment on above: Fasting Glucose resu lt greater than or equal to 126 mg/dL suggests DIABETES MELLITUS per A.D.A. criteria. Potassium [Moles/Vol] 3.7 mmol/L 3.5-5.1 [facility] Work Phone: Protein [Mass/Vol] 6.4 g/dL 6.4-8.2 [facility] Work Phone: Sodium [Moles/Vol] 145 mmol/L 136-145 [facility] Work Phone: Triglyceride [Mass/Vol] 77 mg/dL <199 [facility] Work Phone: Comment on above: The drugs N-Acetylcy steine and Metamizole may falsely depress this assay.Serum Triglycerides Reference Interval Normal <150 mg/dL Borderline high 150 - 199 mg/dL High 200 - 499 mg/dL Very High > or = 500 mg/dL WBC (Bld) [#/Vol] 5.7 10*3/uL 4.4-11.0 [facility] Work Phone: Blood erythrocytes count (nu mber/volume)on 10-05-2021 RBC (Bld) [#/Vol] 4.01 10*6/uL 4.2-5.4 [facility] Work Phone: Blood hemoglobin measurement (mass/volume)on 10-05-2021 Hemoglobin (Bld) [Mass/Vol] 11.5 g/dL 12.0-15.0 [facility] Work Phone: Blood platelet mean volumeon 10-05-2021 Platelet mean volume (Bld) [Entitic vol] 11.3 fL 6.2-12.0 [facility] Work Phone: Determination of erythrocyte mean corpuscular volume (MCV)on 10-05-2021 MCV (RBC) [Entitic vol] 93.3 fL 81-99 [facility] Work Phone: Hematocrit Auto (Bld) [Volum e fraction]on 10-05-2021 Hematocrit (Bld) [Volume fraction] 37.4 % 37-47 [facility] Work Phone: Laboratory - Chemistry and C hemistry - challengeon 10-05-2021 ALP [Catalytic activity/Vol] 80 U/L 45-117 [facility] Work Phone: ALT [Catalytic activity/Vol] 16 U/L 13-56 [facility] Work Phone: CO2 [Moles/Vol] 29.0 mmol/L 21.0-32.0 [facility] Work Phone: Globulin (S) [Mass/Vol] 3.1 g/dL 2.2-4.2 [facility] Work Phone: Urea nitrogen/Creatinine [Mass ratio] 17.1 mg/mg 10-20 [facility] Work Phone: Laboratory - Hematology and Cell countson 10-05-2021 Erythrocyte distribution width (RBC) [Entitic vol] 44.9 fL 35.1-43.9 [facility] Work Phone: Erythrocyte distribution width (RBC) [Ratio] 13.2 % 11.6-14.6 [facility] Work Phone: MCH (RBC) [Entitic mass] 28.7 pg 27.0-32.0 [facility] Work Phone: MCHC Auto (RBC) [Mass/Vol]on 10-05-2021 MCHC (RBC) [Mass/Vol] 30.7 g/dL 32-36 [facility] Work Phone: No Panel Informationon 10-05 Estimated GFR (MDRD) Amer 65 mL/min >60 [facility] Work Phone: Comment on above: GFR Calc Estimated GFR (MDRD) Non-Af Amer 54 mL/min >60 [facility] Work Phone: Comment on above: Non- GFR Calc Platelets bldon 10-05-2021 Platelets (Bld) [#/Vol] 164 10*3/uL 150-450 [facility] Work Phone: Serum or plasma albumin serge urement (mass/volume)on 10-05-2021 Albumin [Mass/Vol] 3.3 g/dL 3.2-5.0 [facility] Work Phone: Serum or plasma albumin/glob ulin mass ratioon 10-05-2021 Albumin/Globulin [Mass ratio] 1.1 {ratio} 0.9-2.4 [facility] Work Phone: Serum or plasma calcium serge urement (mass/volume)on 10-05-2021 Calcium [Mass/Vol] 8.8 mg/dL 8.5-10.1 [facility] Work Phone: Serum or plasma cholesterol in HDL measurement (mass/volume)on 10-05-2021 Cholesterol in HDL [Mass/Vol] 47 mg/dL >40 [facility] Work Phone: Comment on above: The drugs N-Acetylcy steine and Metamizole may falsely depress this assay. Reference Range HDL <40 mg/dL Low HDL Cholesterol HDL >or= 60 mg/dL High HDL Cholesterol Serum or plasma cholesterol in VLDL measurement (mass/volume)on 10-05-2021 Cholesterol in VLDL [Mass/Vol] 15 mg/dL 5-40 [facility] Work Phone: Serum or plasma creatinine m easurement (mass/volume)on 10-05-2021 Creatinine [Mass/Vol] 1.05 mg/dL 0.55-1.02 [facility] Work Phone: Comment on above: The validity of the calculated GFR & GFRAA in patients over 70 years has not been determined. Clinical correlation is essential. Serum or plasma low density lipoprotein (LDL) cholesterol measurement (mass/volume)on 10-05-2021 Cholesterol in LDL [Mass/Vol] 68 mg/dL 0-130 [facility] Work Phone: Serum or plasma urea nitroge n measurement (mass/volume)on 10-05-2021 Urea nitrogen [Mass/Vol] 18 mg/dL 7-18 [facility] Work Phone: Thin prep Papanicolaou smear with manual screeningon 10-05-2021 Thin prep Papanicolaou smear with manual screening 18 U/L 15-37 [facility] Work Phone: Thin prep Papanicolaou smear with manual screening 11 5-15 [facility] Work Phone: No Panel Informationon 09-05 Vitamin D 25-Hydroxy 44.4 ng/mL [facility] Work Phone: Comment on above: Vitamin D 25(OH) Sta tus Range Deficiency <20 ng/mL (50nmol/L) Insufficiency 20 - 30 ng/mL (50 - 75 nmol/L) Sufficiency 30 - 100 ng/mL (75 - 250 nmol/L) Toxicity >100 ng/mL (>250 nmol/L) Whole blood hemoglobin A1c/t otal hemoglobin ratio (mass fraction)on 09-05-2021 HbA1c (Bld) [Mass fraction] 8.3 % 3.8-5.6 [facility] Work Phone: Comment on above: Normal < 5.7 % Predi abetic 5.7 - 6.4 % Diabetic >or= 6.5 % Please note range changes. Basophil percentageon 2021 Bilirubin [Mass/Vol] 0.40 mg/dL 0.20-1.00 [facility] Work Phone: Comment on above: For patients on eltr ombopag therapy, use of Dimension [place] TBIL is not recommended. Chloride [Moles/Vol] 102 mmol/L 98-107 [facility] Work Phone: Glucose [Mass/Vol] 358 mg/dL 74-106 [facility] Work Phone: Comment on above: Glucose result great er than or equal to 200 mg/dLsuggests DIABETES MELLITUS per A.D.A. criteria. Potassium [Moles/Vol] 3.3 mmol/L 3.5-5.1 [facility] Work Phone: Protein [Mass/Vol] 6.8 g/dL 6.4-8.2 [facility]: Sodium [Moles/Vol] 139 mmol/L 136-145 [facility] Work Phone: WBC (Bld) [#/Vol] 5.6 10*3/uL 4.4-11.0 [facility] Work Phone: Blood erythrocytes count (nu mber/volume)on 08-08-2021 RBC (Bld) [#/Vol] 3.99 10*6/uL 4.2-5.4 [facility]: Blood hemoglobin measurement (mass/volume)on 08-08-2021 Hemoglobin (Bld) [Mass/Vol] 11.5 g/dL 12.0-15.0 [facility] Work Phone: Blood platelet mean volumeon 08-08-2021 Platelet mean volume (Bld) [Entitic vol] 11.0 fL 6.2-12.0 [facility] Work Phone: Determination of erythrocyte mean corpuscular volume (MCV)on 08-08-2021 MCV (RBC) [Entitic vol] 91.7 fL 81-99 [facility] Work Phone: Hematocrit Auto (Bld) [Volum e fraction]on 08-08-2021 Hematocrit (Bld) [Volume fraction] 36.6 % 37-47 [facility] Work Phone: Laboratory - Chemistry and C hemistry - challengeon 08-08-2021 ALP [Catalytic activity/Vol] 85 U/L 45-117 [facility] Work Phone: ALT [Catalytic activity/Vol] 17 U/L 13-56 [facility] Work Phone: CO2 [Moles/Vol] 33.0 mmol/L 21.0-32.0 [facility] Work Phone: Globulin (S) [Mass/Vol] 3.8 g/dL 2.2-4.2 [facility] Work Phone: Urea nitrogen/Creatinine [Mass ratio] 12.7 mg/mg 10-20 [facility] Work Phone: Laboratory - Hematology and Cell countson 08-08-2021 Erythrocyte distribution width (RBC) [Entitic vol] 43.0 fL 35.1-43.9 [facility] Work Phone: Erythrocyte distribution width (RBC) [Ratio] 12.7 % 11.6-14.6 [facility] Work Phone: MCH (RBC) [Entitic mass] 28.8 pg 27.0-32.0 [facility] Work Phone: MCHC Auto (RBC) [Mass/Vol]on 08-08-2021 MCHC (RBC) [Mass/Vol] 31.4 g/dL 32-36 [facility] Work Phone: No Panel Informationon 08-08 Estimated GFR (MDRD) Amer 67 mL/min >60 [facility] Work Phone: Comment on above: GFR Calc Estimated GFR (MDRD) Non-Af Amer 56 mL/min >60 [facility] Work Phone: Comment on above: Non- GFR Calc Platelets bldon 08-08-2021 Platelets (Bld) [#/Vol] 155 10*3/uL 150-450 [facility] Work Phone: Serum or plasma albumin serge urement (mass/volume)on 08-08-2021 Albumin [Mass/Vol] 3.0 g/dL 3.2-5.0 [facility] Work Phone: Serum or plasma albumin/glob ulin mass ratioon 08-08-2021 Albumin/Globulin [Mass ratio] 0.8 {ratio} 0.9-2.4 [facility] Work Phone: Serum or plasma calcium serge urement (mass/volume)on 08-08-2021 Calcium [Mass/Vol] 9.3 mg/dL 8.5-10.1 [facility] Work Phone: Serum or plasma creatinine m easurement (mass/volume)on 08-08-2021 Creatinine [Mass/Vol] 1.02 mg/dL 0.55-1.02 [facility] Work Phone: Comment on above: The validity of the calculated GFR & GFRAA in patients over 70 years has not been determined. Clinical correlation is essential. Serum or plasma urea nitroge n measurement (mass/volume)on 08-08-2021 Urea nitrogen [Mass/Vol] 13 mg/dL 7-18 [facility] Work Phone: Thin prep Papanicolaou smear with manual screeningon 08-08-2021 Thin prep Papanicolaou smear with manual screening 15 U/L 15-37 [facility] Work Phone: Thin prep Papanicolaou smear with manual screening 4 5-15 [facility] Work Phone: Basophil percentageon 2021 Basophil percentage 3.6 mg/dL 2.5-4.9 [facility] Work Phone: Chloride [Moles/Vol] 99 mmol/L 98-107 [facility] Work Phone: Glucose [Mass/Vol] 311 mg/dL 74-106 [facility] Work Phone: Comment on above: Glucose result great er than or equal to 200 mg/dLsuggests DIABETES MELLITUS per A.D.A. criteria. Potassium [Moles/Vol] 3.7 mmol/L 3.5-5.1 [facility] Work Phone: Sodium [Moles/Vol] 139 mmol/L 136-145 [facility] Work Phone: WBC (Bld) [#/Vol] 6.1 10*3/uL 4.4-11.0 [facility] Work Phone: Blood erythrocytes count (nu mber/volume)on 07-12-2021 RBC (Bld) [#/Vol] 4.40 10*6/uL 4.2-5.4 [facility] Work Phone: Blood hemoglobin measurement (mass/volume)on 07-12-2021 Hemoglobin (Bld) [Mass/Vol] 12.5 g/dL 12.0-15.0 [facility] Work Phone: Blood platelet mean volumeon 07-12-2021 Platelet mean volume (Bld) [Entitic vol] 11.0 fL 6.2-12.0 [facility] Work Phone: Determination of erythrocyte mean corpuscular volume (MCV)on 07-12-2021 MCV (RBC) [Entitic vol] 90.7 fL 81-99 [facility] Work Phone: Hematocrit Auto (Bld) [Volum e fraction]on 07-12-2021 Hematocrit (Bld) [Volume fraction] 39.9 % 37-47 [facility] Work Phone: Laboratory - Chemistry and C hemistry - challengeon 07-12-2021 CO2 [Moles/Vol] 34.0 mmol/L 21.0-32.0 [facility] Work Phone: Urea nitrogen/Creatinine [Mass ratio] 14.2 mg/mg 10-20 [facility] Work Phone: Laboratory - Hematology and Cell countson 07-12-2021 Erythrocyte distribution width (RBC) [Entitic vol] 42.3 fL 35.1-43.9 [facility] Work Phone: Erythrocyte distribution width (RBC) [Ratio] 12.8 % 11.6-14.6 [facility] Work Phone: MCH (RBC) [Entitic mass] 28.4 pg 27.0-32.0 [facility] Work Phone: MCHC Auto (RBC) [Mass/Vol]on 07-12-2021 MCHC (RBC) [Mass/Vol] 31.3 g/dL 32-36 [facility] Work Phone: No Panel Informationon 07-12 Estimated GFR (MDRD) Amer 64 mL/min >60 [facility] Work Phone: Comment on above: GFR Calc Estimated GFR (MDRD) Non-Af Amer 53 mL/min >60 [facility] Work Phone: Comment on above: Non- GFR Calc Parathyroid Hormone (Intact) 38.0 pg/mL 18.4-80.1 [facility] Work Phone: Vitamin D 25-Hydroxy 10.0 ng/mL [facility] Work Phone: Comment on above: Vitamin D 25(OH) Sta tus Range Deficiency <20 ng/mL (50nmol/L) Insufficiency 20 - 30 ng/mL (50 - 75 nmol/L) Sufficiency 30 - 100 ng/mL (75 - 250 nmol/L) Toxicity >100 ng/mL (>250 nmol/L) Platelets bldon 07-12-2021 Platelets (Bld) [#/Vol] 188 10*3/uL 150-450 [facility] Work Phone: Serum or plasma albumin serge urement (mass/volume)on 07-12-2021 Albumin [Mass/Vol] 3.2 g/dL 3.2-5.0 [facility] Work Phone: Serum or plasma calcium serge urement (mass/volume)on 07-12-2021 Calcium [Mass/Vol] 9.8 mg/dL 8.5-10.1 [facility] Work Phone: Serum or plasma creatinine m easurement (mass/volume)on 07-12-2021 Creatinine [Mass/Vol] 1.06 mg/dL 0.55-1.02 [facility] Work Phone: Comment on above: The validity of the calculated GFR & GFRAA in patients over 70 years has not been determined. Clinical correlation is essential. Serum or plasma urea nitroge n measurement (mass/volume)on 07-12-2021 Urea nitrogen [Mass/Vol] 15 mg/dL 7-18 [facility] Work Phone: Clinical Summary: HMSPatient IDon 03-16-2019 OOP Camryn [facility] Work Phone: Office Visit: New - visi t with practice, Rm: PT2on 03-16-2019 NEGATED: Highlighted rowMRI (magnetic resonance imaging) history of the cervical spine on 11/24/2018 at [facility] Work Phone: NEGATED: Highlighted rowTobacco smoking status NHIS Tobacco smoking status NHIS [facility] Work Phone: Vital Signs Date Time Vital Sign Value Performing Clinician Facility 08-24-2024 09:43-0400 Body temperature 98.9 [degF] Dr. Basilio Flores MD Work Phone: 6(121)037-590008 [place] [address] 08-24-2024 09:43-0400 Diastolic blood pressure 69 mm[Hg] Dr. Basilio Flores MD Work Phone: 3(579)662-931008 [place] [address] 08-24-2024 09:43-0400 Heart rate 72 /min Dr. Basilio Flores MD Work Phone: 2(519)718-724308 [place] [address] 08-24-2024 09:43-0400 Respiratory rate 16 /min Dr. Basilio Flores MD Work Phone: 4(240)608-154508 [place] [address] 08-24-2024 09:43-0400 SaO2% (BldA) [Mass fraction] 98 % Dr. Basilio Flores MD Work Phone: 6(600)743-257808 [place] [address] 08-24-2024 09:43-0400 Systolic blood pressure 149 mm[Hg] Dr. Basilio Flores MD Work Phone: 1(521)128-196008 [place] [address] 08-24-2024 08:47-0400 Body height 157.[address] Basilio Flores MD Work Phone: [facility] 08-24-2024 08:47-0400 Body mass index (BMI) [Ratio] 22.1 kg/m2 Dr. Basilio Flores MD Work Phone: 8(302)852-689708 [place] [address] 08-24-2024 08:47-0400 Body weight [address] Basilio Flores MD Work Phone: 8(132)197-663872 [place] [address] 06-08-2023 09:40-0500 Diastolic blood pressure 77 mm[Hg] Dr. Basilio Flores Work Phone: 9(159)352-860572 [place] [address] 06-08-2023 09:40-0500 Heart rate 82 /min Dr. Basilio Flores Work Phone: 5(661)331-415972 [place] [address] 06-08-2023 09:40-0500 Respiratory rate 16 /min Dr. Basilio Flores Work Phone: 4(162)954-182372 [place] [address] 06-08-2023 09:40-0500 SaO2% (BldA) [Mass fraction] 98 % Dr. Basilio Flores Work Phone: 2(407)756-429872 [place] [address] 06-08-2023 09:40-0500 Systolic blood pressure 135 mm[Hg] Dr. Basilio Flores Work Phone: 5(501)114-908172 [place] [address] 06-08-2023 08:04-0500 Body height 157.[address] Basilio Flores Work Phone: 0(486)228-747172 [place] [address] 06-08-2023 08:04-0500 Body mass index (BMI) [Ratio] 25.7 kg/m2 Dr. Basilio Flores Work Phone: 2(338)287-222672 [place] [address] 06-08-2023 08:04-0500 Body temperature 97.9 [degF] Dr. Basilio Flores Work Phone: 7(408)854-879072 [place] [address] 06-08-2023 08:04-0500 Body weight 63.[address] Basilio Flores Work Phone: 9(012)407-385472 [place] [address] 06-05-2023 08:33-0500 Diastolic blood pressure 67 mm[Hg] Dr. Basilio Flores Work Phone: 7(747)539-666872 [place] [address] 06-05-2023 08:33-0500 Heart rate 81 /min Dr. Basilio Flores Work Phone: 9(267)834-063772 [place] [address] 06-05-2023 08:33-0500 Respiratory rate 16 /min Dr. Basilio Flores Work Phone: 2(028)934-156272 [place] [address] 06-05-2023 08:33-0500 SaO2% (BldA) [Mass fraction] 93 % Dr. Basilio Flores Work Phone: 5(649)581-575708 [place] [address] 06-05-2023 08:33-0500 Systolic blood pressure 142 mm[Hg] Dr. Basilio Flores Work Phone: 6(538)255-702672 [place] [address] 06-05-2023 03:42-0500 Body height 162.[address] Basilio Flores Work Phone: 3(224)730-550672 [place] [address] 06-05-2023 03:42-0500 Body mass index (BMI) [Ratio] 23.9 kg/m2 Dr. Basilio Flores Work Phone: 7(804)410-045240 [address] 06-05-2023 03:42-0500 Body temperature 97.6 [degF] Dr. Basilio Flores Work Phone: 4(242)880-265672 [place] [address] 06-05-2023 03:42-0500 Body weight 63.[address] Basilio Flores Work Phone: 6(502)296-486972 [place] [address] NEGATED: Highlighted [id number] 14:06-0500 BMI (Body Mass Index) 44.85 kg/m2 Arcenio Moreira AT [facility] Work Phone: NEGATED: Highlighted [id number] 14:06-0500 Body weight 102.06 kg Arcenio Moreira AT [facility] Work Phone: NEGATED: Highlighted [id number] 14:06-0500 Body weight 102 kg Arcenio Moreira AT [facility] Work Phone: NEGATED: Highlighted [id number] 14:06-0500 BP Diastolic 68 mm[Hg] Arcenio Moreira AT [facility] Work Phone: NEGATED: Highlighted [id number] 14:06-0500 BP Systolic 124 mm[Hg] Arcenio Moreira AT [facility] Work Phone: NEGATED: Highlighted [id number] 14:06-0500 Height 151.13 cm Arcenio Moreira AT [facility] Work Phone: NEGATED: Highlighted [id number] 14:06-0500 Height 151 cm Arcenio Moreira AT [facility] Work Phone: NEGATED: Highlighted [id number] 14:06-0500 Pulse (Heart Rate) 101 /min Arcenio Moreira AT [facility] Work Phone: Encounters Encounter Date Encounter Type Care Provider Facility Start: 10-06-2024 ambulatory Donato COLVIN Fa cility:[facility] Start: 10-06-2024 Registered Referred Donato Sepulveda MD [facility] Start: 09-08-2024 End: 09-08-[address] Basilio Flores MD Work Phone: [facility] Work Phone: Start: 09-08-2024 End: 09-08-20[facility]: [facility]-08-[facility] Start: 09-08-2024 End: 09-08-2024 ambulatory Donato COLVIN Facility:[facility] Start: 08-25-2024 End: 08-25-[address] Basilio Flores MD Work Phone: [facility] Work Phone: Start: 08-25-2024 End: 08-25-2024 [facility] Start: 08-24-2024 End: 08-24-2024 Admission to same day surgery center Dr. Armando Rich MD -[facility] Start: 08-24-2024 End: 08-25-[address] Basilio Flores MD Work Phone: [facility] Work Phone: Start: 08-17-2024 End: 08-17-2024 ambulatory Debora Schneider NP Facility:[facility] Start: 08-17-2024 End: 08-17-2024 Patient encounter procedure [facility] Work Phone: Start: 07-15-2024 End: 07-15-[address] Basilio Flores MD Work Phone: [facility] Work Phone: Start: 07-15-2024 End: 07-15-2024 [facility] Start: 07-14-2024 End: 07-14-[address] Donato Sepulveda MD -[facility] Work Phone: Start: 07-14-2024 End: 07-15-[address] Basilio Flores MD Work Phone: [facility] Work Phone: Start: 07-14-2024 End: 07-14-2024 [facility] Start: 07-14-2024 Registered Referred Donato Sepulveda MD [facility] Start: 07-14-2024 End: 07-14-2024 ambulatory Basilio Flores Facility:[facility] Start: 06-26-2024 End: 06-26-2024 ambulatory Basilio Flores Facility:[facility] Start: 06-26-2024 End: 06-26-2024 Patient encounter procedure Debora DOW -[facility] Work Phone: Start: 06-15-2024 ambulatory Donato COLVIN Fa cility:[facility] Start: 06-15-2024 Registered Referred Donato Sepulveda MD [facility] Start: 06-09-2024 ambulatory Donato Sepulveda OLS Fa cility:[facility] Start: 06-09-2024 [facility] Start: 06-02-2024 End: 06-02-2024 [facility]ed [facility] Start: 06-01-2024 End: 06-02-2024 ambulatory Donato COLVIN Facility:[facility] Start: 06-01-2024 End: 06-01-2024 Patient encounter procedure Debora Schneider AUTO BODY CUSTOMIZER-C -[facility] Work Phone: Start: 05-19-2024 End: 05-19-2024 ambulatory Basilio Flores Facility:[facility] Start: 05-19-2024 End: 05-19-[address] Donato Sepulveda MD -[facility] Work Phone: Start: 04-21-2024 ambulatory Donato COLVIN Fa cility:[facility] Start: 04-21-2024 Registered Referred Donato Sepulveda MD [facility] Start: 04-07-2024 End: 04-07-2024 ambulatory Basilio Flores Facility:[facility] Start: 04-07-2024 End: 04-07-2024 ambulatory Livierstumarcela COLVIN Facility:[facility] Start: 03-17-2024 End: 03-17-2024 ambulatory Basilio Flores Facility:[facility] Start: 03-10-2024 End: 03-10-2024 ambulatory Donato Harjitrjruthann COLVIN Facility:[facility] Start: 02-06-2024 End: 02-06-2024 ambulatory Debora Schneider AUTO BODY CUSTOMIZER Facility:[facility] Start: 02-04-2024 End: 02-04-2024 ambulatory Donato Martinezruthann COLVIN Facility:[facility] Start: 01-21-2024 End: 01-21-2024 ambulatory Basliio Flores Facility:[facility] Start: 01-14-2024 ambulatory Donato Martineze OLS Fa cility:[facility] Start: 01-09-2024 End: 01-09-2024 ambulatory Debora Schneider AUTO BODY CUSTOMIZER Facility:[facility] Start: 12-30-2023 End: 12-30-2023 ambulatory Debora Schneider AUTO BODY CUSTOMIZER Facility:[facility] Start: 12-10-2023 End: 12-10-2023 ambulatory Basilio Flores Facility:[facility] Start: 11-19-2023 End: 11-19-2023 ambulatory Basilio Flores Facility:[facility] Start: 11-01-2023 End: 11-01-2023 ambulatory Basilio Flores Facility:[facility] Start: 08-06-2023 End: 08-06-[address] Basilio Flores Work Phone: [facility] Work Phone: Start: 08-06-2023 End: 08-06-[address] Basilio Flores Work Phone: [facility] Start: 06-11-2023 End: 06-11-[address] Basilio Flores Work Phone: [facility] Work Phone: Start: 06-11-2023 End: 06-11-[address] Basilio Flores Work Phone: [facility] Start: 06-08-2023 End: 06-08-2023 Emergency department patient visit Dr. Basilio Flores Work Phone: [facility] Work Phone: Start: 06-05-2023 End: 06-05-[address] Basilio Flores Work Phone: [facility] Work Phone: Start: 06-05-2023 End: 06-05-2023 Emergency department patient visit Dr. Basilio Flores Work Phone: [facility] Work Phone: Start: 05-28-2023 End: 05-28-[address] Basilio Flores Work Phone: [facility] Work Phone: Start: 05-15-2023 End: 05-15-[address] Basilio Flores Work Phone: [facility] Work Phone: Start: 04-24-2023 End: 04-24-[address] Basilio Flores Work Phone: [facility] Work Phone: Start: 04-23-2023 End: 04-23-[address] Basilio Flores Work Phone: [facility] Work Phone: Start: 04-23-2023 End: 04-23-[address] Basilio Flores Work Phone: [facility] Start: 04-23-[address] Basilio avendano Work Phone: [facility] Start: 04-19-2023 End: 04-19-[address] Basilio Flores Work Phone: [facility] Work Phone: Start: 04-19-2023 End: 04-19-[address] Basilio Flores Work Phone: [facility] Start: 04-19-[address] Basilio avendano Work Phone: [facility] Start: 04-09-2023 End: 04-09-[address] Basilio Flores Work Phone: [facility] Work Phone: Start: 04-09-2023 End: 04-09-[address] Basilio Flores Work Phone: [facility] Start: 03-26-2023 End: 03-26-[address] Basilio Flores Work Phone: [facility] Work Phone: Start: 03-13-2023 End: 03-13-[address] Basilio Flores Work Phone: [facility] Work Phone: Start: 03-12-2023 End: 03-12-[address] Basilio Flores Work Phone: [facility] Start: 03-07-2023 End: 03-07-[address] Basilio Flores Work Phone: [facility] Work Phone: Start: 02-05-2023 End: 02-05-[address] Basilio Flores Work Phone: [facility] Start: 02-04-2023 End: 02-04-[address] Basilio Flores Work Phone: [facility] Work Phone: Start: 01-30-2023 End: 01-30-[address] Basilio Flores Work Phone: [facility] Work Phone: Start: 01-22-2023 End: 01-22-[address] Basilio Flores Work Phone: [facility] Work Phone: Start: 01-17-2023 End: 01-17-[address] Basilio Flores Work Phone: [facility] Work Phone: Start: 01-01-2023 End: 01-01-[address] Basilio Flores Work Phone: [facility] Work Phone: Start: 12-07-2022 End: 12-07-[address] Basilio Flores Work Phone: [facility] Work Phone: Start: 12-07-2022 End: 12-07-[address] Basilio Flores Work Phone: [facility] Start: 12-04-2022 End: 12-04-[address] Basilio Flores Work Phone: [facility] Work Phone: Start: 12-04-2022 End: 12-04-[address] Basilio Flores Work Phone: [facility] Start: 12-04-[address] Basilio avendano Work Phone: [facility] Start: 11-21-2022 End: 11-21-[address] Basilio Flores Work Phone: [facility] Work Phone: Start: 11-21-2022 End: 11-21-[address] Basilio Flores Work Phone: [facility] Start: 11-21-[address] Basilio avendano Work Phone: [facility] Start: 11-20-2022 End: 11-20-[address] Basilio Flores Work Phone: [facility] Work Phone: Start: 10-31-2022 End: 10-31-[address] Basilio Flores Work Phone: [facility] Work Phone: Start: 10-09-2022 End: 10-09-[address] Basilio Flores Work Phone: [facility] Work Phone: Start: 10-09-2022 End: 10-09-[address] Basilio Flores Work Phone: [facility] Start: 10-09-[address] Basilio avendano Work Phone: [facility] Start: 10-05-2022 End: 10-05-[address] Basilio Flores Work Phone: [facility] Work Phone: Start: 10-05-2022 End: 10-05-[address] Basilio Flores Work Phone: [facility] Start: 10-05-[address] Basilio avendano Work Phone: [facility] Start: 10-04-2022 End: 10-04-[address] Basilio Flores Work Phone: [facility] Start: 10-04-[address] Basilio avendano Work Phone: [facility] Start: 09-25-2022 End: 09-25-[address] Basilio Flores Work Phone: [facility] Work Phone: Start: 09-04-2022 End: 09-04-[address] Basilio Flores Work Phone: [facility] Work Phone: Start: 09-04-2022 End: 09-04-[address] Basilio Flores Work Phone: [facility] Start: 09-03-2022 End: 09-03-[address] Basilio Flores Work Phone: [facility] Work Phone: Start: 08-07-2022 End: 08-07-[address] Basilio Flores Work Phone: [facility] Work Phone: Start: 08-07-2022 End: 08-07-[address] Basilio Flores Work Phone: [facility] Start: 08-02-2022 End: 08-02-[address] Basilio Flores Work Phone: [facility] Start: 07-24-2022 End: 07-24-[address] Basilio Flores Work Phone: [facility] Start: 07-21-2022 End: 07-21-[address] Basilio Flores Work Phone: [facility] Start: 07-13-2022 End: 07-13-[address] Basilio Flores Work Phone: [facility] Start: 07-02-2022 End: 07-02-[address] Basilio Flores Work Phone: [phone] [place] [address] Start: 06-15-2022 End: 06-15-[address] Basilio Flores Work Phone: [phone] [place] [address] Start: 06-12-2022 End: 06-12-[address] Basilio Flores Work Phone: [phone] [place] [address] Work Phone: Start: 06-12-2022 End: 06-12-[address] Basilio Flores Work Phone: [phone] [place] [address] Start: 05-29-2022 End: 05-29-[address] Basilio Flores Work Phone: [facility] Start: 04-17-2022 End: 04-17-[address] Basilio Flores Work Phone: [facility] Start: 04-17-[address] Basilio avendano Work Phone: [facility] Start: 04-13-2022 End: 04-13-[address] Basilio Flores Work Phone: [phone] [place] [address] Start: 04-13-[address] Basilio avendano Work Phone: [facility] Start: 04-10-2022 End: 04-10-[address] Basilio Flores Work Phone: [facility] Work Phone: Start: 04-10-2022 End: 04-10-[address] Basilio Flores Work Phone: [facility] Start: 04-05-2022 End: 04-05-[address] Basilio Flores Work Phone: [facility] Start: 03-27-2022 End: 03-27-[address] Basilio Flores Work Phone: [facility] Start: 03-06-2022 End: 03-06-[address] Basilio Flores Work Phone: [facility] Work Phone: Start: 03-06-2022 End: 03-06-[address] Basilio Flores Work Phone: [facility] Start: 02-06-2022 End: 02-06-[address] Basilio Flores Work Phone: [facility] Work Phone: Start: 02-06-2022 End: 02-06-[address] Basilio Flores Work Phone: [facility] Start: 12-05-2021 End: 12-05-[address] Basilio Flores Work Phone: [facility] Start: 12-04-2021 End: 12-04-[address] Basilio Flores Work Phone: [facility] Start: 11-14-2021 End: 11-14-[address] Basilio Flores Work Phone: [facility] Start: 10-17-2021 End: 10-17-[address] Basilio Flores Work Phone: [facility] Start: 10-17-[address] Basilio avendano Work Phone: [facility] Start: 10-05-2021 End: 10-05-[address] Basilio Flores Work Phone: [facility] Start: 09-12-2021 End: 09-12-[address] Basilio Flores Work Phone: [facility] Start: 09-05-2021 End: 09-05-[address] Basilio Flores Work Phone: [facility] Start: 08-08-2021 End: 08-08-2021 Departed Referred [facility] Start: 08-08-2021 Registered Referred [facility] Start: 07-12-2021 End: 07-12-2021 Departed Referred [facility] Start: 03-16-2019 End: 03-16-2019 Patient encounter procedure Rachael Newman MD Work Phone: [facility] [...] normal parameters - no follow-up required Rachael Nweman MD Work Phone: Start: 03-16-2019 End: 03-16-2019 [...] branches w/img NJX AA&/STRD GNCLR NRV BRNCH [facility] Start: 08-24-2024 Fluoroscopic guidance [facility] Start: 08-24-2024 Patient discharge [facility] Start: 06-08-2023 [facility] Start: 06-05-2023 Simple repair f/e/e/n/l/m 2.5cm/< RPR F/E/E/N/L/M 2.5 CM/< [facility] Start: 06-05-2023 [facility] Start: 03-16-2019 End: 03-16-2019 Appointment Appointment [facility] [place] [facility] Work Phone: Patient Education [facility] Work Phone: Patient referral [facility] Work Phone: Immunizations Immunization Date Immunization Notes Care Provider Fa cility 06-05-2023 tetanus toxoid, redu lloyd diphtheria toxoid, and acellular pertussis vaccine, adsorbed Dr. Basilio Flores Work Phone: [facility] 02-23-2015 Influenza virus vaccine W [facility] Payers Date Payer Category Payer Self-pay [id number] 2023 Medicare [id number] 2023 Unknown [id number] Unknown [id number] Unknown [id number] 2.16.8 [id number] Unknown [id number] 2.16.8 40.1.055883.3.579.2.462 Unknown [id number] 2.16.8 40.1.002922.3.579.2.462 Unknown [id number] 2.16.8 40.1.265692.3.579.2.462 Unknown [id number] 2.16.8 40.1.020300.3.579.2.462 Unknown [id number] 2.16.8 40.1.178588.3.579.2.462 Unknown [id number] 2.16.8 40.1.008158.3.579.2.462 Unknown [id number] 2.16.8 40.1.227158.3.579.2.462 Unknown [id number] 2.16.8 40.1.785942.3.579.2.462 Unknown [id number] 2.16.8 40.1.451053.3.579.2.462 Unknown [id number] 2.16.8 40.1.333407.3.579.2.462 Unknown [id number] 2.16.8 40.1.950167.3.579.2.462 Unknown [id number] 2.16.8 40.1.194707.3.579.2.462 Unknown [id number] 2.16.8 40.1.235576.3.579.2.462 Unknown [id number] 2.16.8 40.1.909859.3.579.2.462 Unknown [id number] 2.16.8 40.1.579543.3.579.2.462 Unknown [id number] 2.16.8 40.1.044250.3.579.2.462 Unknown [id number] 2.16.8 40.1.129729.3.579.2.462 Unknown [id number] 2.16.8 40.1.388740.3.579.2.462 Unknown [id number] 2.16.8 40.1.247543.3.579.2.462 Unknown [id number] 2.16.8 40.1.833823.3.579.2.462 Unknown [id number] 2.16.8 40.1.513184.3.579.2.462 Unknown [id number] 2.16.8 40.1.564202.3.579.2.462 Unknown [id number] 2.16.8 40.1.689804.3.579.2.462 Unknown [id number] 2.16.8 40.1.654553.3.579.2.462 Unknown [id number] 2.16.8 40.1.337269.3.579.2.462 Unknown [id number] 2.16.8 40.1.469323.3.579.2.462 Unknown [id number] 2.16.8 40.1.145051.3.579.2.462 Social History Date Type Detail Facility Start: 12-16-2019 End: 06-08-2023 Tobacco smoking status WAIS Unknown if ever smoked [facility] Start: 12-16-2019 None [facility] Start: 12-16-2019 Usp [facility] Start: 12-16-2019 Non-smoker [facility] Start: 1940 Sex Assigned At Female W [facility] Start: 06-08-2023 Tobacco smoking status NHIS Never smoked tobacco (finding) [facility] Start: 08-06-2024 End: 08-24-2024 Sex Female (finding) [facility] NEGATED: Highlighted rowStart: 03-16-2019 End: 03-16-2019 Alcohol use Alcohol use [facility] Work Phone: NEGATED: Highlighted rowStart: 03-16-2019 End: 03-16-2019 Details of drug misuse behavior Details of drug misuse behavior [facility] Work Phone: NEGATED: Highlighted rowStart: 03-16-2019 End: 03-16-2019 Assertion Never smoker [facility] Work Phone: Goals Date Patient Goal Desired Activity /State Mental Status Date Assessment Result Facility 08-24-2024 Cognitive function Voice/Name [facility] Work Phone: Procedure note 08-24-2024 Note Date & Type Note Facility 08-24-2024 Procedure note [facility] Discharge summary 06-05-2023 Note Date & Type Note Facility 06-05-2023 Discharge summary Note Date/Time June 05, 2023 4:38am [facility] Medical Records Department [address] [place] [address] Emergency Department Summary 06/05/23 MR#: [id number] Acct: [id number] Name: MINDY CHINCHILLA Rep #:[id number] : 1940 82 From: Colleen Gomez PCP: Dr. Basilio Flores MD Status:REG ER Location: ED HPI History of Present Illness Chief Complaint: Head Injury Informant: patient Narrative Narrative: Patient is an 82-year-old female presenting from [facility] after she injured her head. Patient [...] Is not on any blood thinners. Per fpc report patient was in the dining room at the table doing her puzzles which is her typical activity. Unclear if there was loss of consciousness. Was sent for evaluation of injuries. Tetanus Immunization: Unknown [facility] Medical History Anxiety and depression Arthritis Asthma [...] her baseline. No focal neurologic deficits appreciated [place] Coma Scale: document GCS findings Spontaneous Obeys [...] Family Additional record(s) reviewed:: Prior outpatient record (fpc paperwork ) Lab Data Attestation: I reviewed [...] 76.3 H Lymph % (Auto) 13.6 L [place] % (Auto) 7.2 Eos % (Auto) 2.0 [...] Sl. Cloudy Urine pH 6.0 Ur Specific [place] 1.015 Urine Protein 15 H Urine Glucose [...] fracture or acute intracranial hemorrhage. Electronically Signed: eHrb Laguna MD at 5:50 EST , Cervical [...] your Primary Care Provider. Call [facility] ([phone]) or report to the closest Emergency Room. Call 911 if necessary. 06/05/23 0754 <Electronically signed by Colleen Walker DO> Cosigner Signature (if applicable): CC: Dr. Basilio Flores MD ~ Signed [facility] Work Phone: Evaluation note Note Date & Type Note Facility Evaluation note No assessment information availa ble [facility] Work Phone: Hospital Discharge instructions Note Date [...] think she requires admission to the hospital. [facility] Work Phone: Reason for referral (narrative) Note Date & Type Note Facility Reason for referral (narrative) No reason for referral information available [facility] Work Phone: Chief Complaint Chief Complaint Description [...] Yes December 15 0 6:54pm Power of Dope Firer Yes December 15 6:54pm Advance Directive Response Recorded Date/ Time Advance Directives Yes October 13 12:44pm Living Will Yes December 15 0 5:54pm Power of Dope Firer Yes December 15 5:54pm Advance Directive Response Recorded Date/ Time Advance Directives Yes March 07, 2023 11:00am Living Will Yes March 07 11:00am Power of Dope Firer Yes March 07, 2023 11:00am Advance Directive Response Recorded Date/ Time Name of Medical Power of Dope Firer ABEBE AGUSTIN June 05, 2023 3:45am Advance Directives Yes March 07, 2023 11:00am Living Will Yes June 05 3:45am Power of Dope Firer Yes June 05, 2023 3:45am Advance Directive Response Recorded Date/ Time Name of Medical Power of Dope Firer ABEBE AGUSTIN June 05, 2023 3:45am Advance Directives Yes March 07, 2023 11:00am Living Will No June 08 8:10am Power of Dope Firer No June 08, 2023 8:10am Advance Directive Response Recorded Date/ Time Name of Medical Power of Dope Firer ABEBE AGUSTIN June 05, 2023 4:45am Advance Directives Yes March 07, 2023 12:00pm Living Will No June 08 9:10am Power of Dope Firer No June 08, 2023 9:10am Advance Directive [...] Complaint and Reason for Visit Chief Complaint SNF LAB WOR K SNF PATIENT Chief Complaint SNF LAB WOR K SNF PATIENT MONTHLY EXAM Chief Complaint SNF LAB WOR K SNF PATIENT MONTHLY EXAM LABWORK Chief Complaint SNF PATIENT MONTHLY EXAM LABWORK Chief Complaint MONTHLY EXAM LABWORK SNF LABWORK SNF LABWORK MONTHLY EXAM SNF LABWORK Chief Complaint SNF LABWORK MONTHLY EXAM SNF LABWORK SNF LABWORK Chief Complaint MONTHLY EXAM SNF LABWORK SNF LABWORK SNF LABWORK Chief Complaint SNF LABWORK SNF LABWORK NEW SYMPTOMS/CONCERNS ACUTE CARE VISIT SNF LAB WORK SNF LAB WORK Chief Complaint SNF LABWORK NEW SYMPTOMS/CONCERNS ACUTE CARE VISIT SNF LAB WORK SNF LABWORK SNF LAB WORK MONTHLY EXAM SNF LABWORK NEW PROBLEM/CONCERN Chief Complaint MONTHLY EXAM SNF LABWORK NEW PROBLEM/CONCERN NEW PROBLEM NEW PROBLEM/CONCERN NEW PROBLEM NEW PROBLEM NEW PROBLEM SNF LABWORK Chief Complaint MONTHLY EXAM SNF LABWORK NEW PROBLEM/CONCERN NEW PROBLEM NEW PROBLEM/CONCERN NEW PROBLEM NEW PROBLEM NEW PROBLEM SNF LABWORK SNF LABWORK Chief Complaint NEW CONCERN SNF LABWORK MONTHLY EXAM SNF LAB WORK SNF LABWORK SNF LAB WORK MONTHLY EXAM MONTHLY EXAM SNF LAB WORK Chief Complaint NEW CONCERN SNF LABWORK MONTHLY EXAM SNF LAB WORK SNF LABWORK SNF LAB WORK MONTHLY EXAM MONTHLY EXAM SNF LAB WORK SNF LAB WORK Chief Complaint NEW CONCERN NEW CONCERN MONTHLY EXAM NEW CONCERN NEW CONCERN SNF LAB WORK FOLLOW UP SNF LAB WORK ACUTE CARE MONTHLY EXAM SNF LAB WORK Chief Complaint NEW CONCERN MONTHLY EXAM NEW CONCERN NEW CONCERN SNF LAB WORK FOLLOW UP SNF LAB WORK ACUTE CARE MONTHLY EXAM SNF LAB WORK SNF LABWORK SNF LABWORK Chief Complaint SNF LAB WOR K FOLLOW UP SNF LAB WORK ACUTE CARE MONTHLY EXAM SNF LAB WORK SNF LABWORK SNF LABWORK MONTHLY EXAM AUTO BODY CUSTOMIZER HEAD INJURY Chief Complaint FOLLOW UP SNF LAB WORK ACUTE CARE MONTHLY EXAM SNF LAB WORK SNF LABWORK SNF LABWORK MONTHLY EXAM AUTO BODY CUSTOMIZER NEW CONCERN MONTHLY EXAM - MD HEAD INJURY NEW CONCERN fall LABWORK Chief Complaint SNF LABWORK SNF LABWORK MONTHLY EXAM AUTO BODY CUSTOMIZER NEW CONCERN MONTHLY EXAM - MD HEAD INJURY NEW CONCERN fall LABWORK SNF LAB WORK Chief Complaint Admit Date SNF LAB WORK April 21 5:00am MONTHLY EXAM May 19, 2024 4 :53pm NEW CONCERN June 01, 2024 5 :22pm SNF LAB WORK June 02, 2024 5:00am SNF LAB WORK June 09, 2024 5:00am SNF LAB WORK June 15 3:15pm NEW CONCERN June 26, 2024 5:54pm SNF LAB WORK July 14, 2024 4 :00am SNF LAB WORK July 15, 2024 5 :00am Chief Complaint Admit Date SNF LAB WORK April 21 5:00am MONTHLY EXAM May 19, 2024 4 :53pm NEW CONCERN June 01, 2024 5 :22pm SNF LAB WORK June 02, 2024 5:00am SNF LAB WORK June 09, 2024 5:00am SNF LAB WORK June 15 3:15pm NEW CONCERN June 26, 2024 5:54pm SNF LAB WORK July 14, 2024 4 :00am MONTHLY EXAM July 14, 2024 4:0 5pm SNF LAB WORK July 15, 2024 5 :00am Chief Complaint Admit Date MONTHLY EXAM May 19, 2024 4 :53pm NEW CONCERN June 01, 2024 5 :22pm SNF LAB WORK June 02, 2024 5:00am SNF LAB WORK June 09, 2024 5:00am SNF LAB WORK June 15 3:15pm NEW CONCERN June 26, 2024 5:54pm SNF LAB WORK July 14, 2024 4 :00am MONTHLY EXAM July 14, 2024 4:0 5pm SNF LAB WORK July 15, 2024 5 :00am Chief Complaint Admit Date SNF LAB WORK June 09, 2024 5:00am [facility] WORK June 15 3:15pm NEW CONCERN June 26, 2024 5:54pm [facility] WORK July 14, 2024 4 :00am MONTHLY EXAM July 14, 2024 4:0 5pm [facility] WORK July 15, 2024 5 :00am MONTHLY EXAM August 17, 2024 4:4 9pm [facility] WORK August 25, 2024 4 :00am Chief Complaint Admit Date [facility] LAB WORK June 15 3:15pm NEW CONCERN June 26, 2024 5:54pm [facility] WORK July 14, 2024 4 :00am MONTHLY EXAM July 14, 2024 4:0 5pm [facility] LAB WORK July 15, 2024 5 :00am MONTHLY EXAM August 17, 2024 4:4 9pm [facility] WORK August 25, 2024 4 :00am [facility] WORK September 08, 2024 5:00 am [...] 2024 End: June 26, 2024 Debora Schneider [employer] BODY CUSTOMIZER, AUTO BODY CUSTOMIZER-C Attending Provider Active Start: June 26, 2024 [...] 2024 End: August 17, 2024 Debora Schneider AUTO BODY CUSTOMIZER, AUTO BODY CUSTOMIZER-C Attending Provider Active Start: August 17, 2024 [...] 2024 End: August 24, 2024 Debora Schneider AUTO BODY CUSTOMIZER, AUTO BODY CUSTOMIZER-C Other Provider Active S tart: August 24, [...] MD Primary Care Provider Active Debora Schneider AUTO BODY CUSTOMIZER, AUTO BODY CUSTOMIZER-C Attending Provider Active Team Status: Inactive Member [...] 2024 End: June 01, 2024 Debora Schneider AUTO BODY CUSTOMIZER, AUTO BODY CUSTOMIZER-C Attending Provider Active Start: June 01, 2024 End: June 01, 2024 Team Status: Inactive Member Role Status Dates Dr. Basilio Flores MD Primary Care Provider Active Start: June 02, 2024 End: June 02, 2024 Donato COLVIN MD Attending Provider Active Start: June 02, [...] section and content) DATE CREATED AUTHOR 10/09/2024 [facility] FOR RECORDS PERTAINING TO PATIENTS WHO ARE [...] BE BASED ON THE PRIMARY CLINICAL RECORDS. [employer] [email or web address] provides no warranty or guarantee of the accuracy or completeness of information in this document.
[2024-10-18 21:44] LABS: Bedside Glucose 129 mg/dL (74-106)
--- OUTSIDE RECORDS SUMMARY | 2024-10-18 21:52 | XMS RPT_ITS | CCD ---
Author Organization [facility] Care Team Providers Care Antisqueak Filler Name Role Phone Trent HILARIO, Rachael Sarabia Unavailable Dr. Basilio Flores Primary Care Provider Tickangelic CALCULATION REVIEWER, CALCULATION REVIEWER-C Debora Attending Provider Dr. Basilio Anderson Primary Care Provider Dr. Basilio Flores Primary Care Provider Tickton CALCULATION REVIEWER, CALCULATION REVIEWER-C Debora Attending Provider Dr. Basilio Anderson Primary Care Provider [place]ton CALCULATION REVIEWER, CALCULATION REVIEWER-C Debora Attending Provider Dr. Basilio Anderson Primary Care Provider Dr. Donato Sepulveda Attending Provider [place]ton CALCULATION REVIEWER, CALCULATION REVIEWER-C Debora Attending Provider Dr. Basilio Anderson Primary Care Provider Dr. Donato Sepulveda Attending Provider Tickton CALCULATION REVIEWER, CALCULATION REVIEWER-C Debora Attending Provider Dr. Basilio Anderson Primary Care Provider Tickton CALCULATION REVIEWER, CALCULATION REVIEWER-C Debora Attending Provider Dr. Donato Centeno Attending Provider [phone] Dr. Basilio Flores Primary Care Provider Tickton CALCULATION REVIEWER, CALCULATION REVIEWER-C Debora Attending Provider Dr. Donato Centeno Attending Provider Dr. Basilio Flores Primary Care Provider Tickton CALCULATION REVIEWER, CALCULATION REVIEWER-C Debora Attending Provider Dr. Basilio Anderson Primary Care Provider Tickton CALCULATION REVIEWER, CALCULATION REVIEWER-C Debora Attending Provider Dr. Donato Sepulveda Attending Provider Dr. Basilio Flores Primary Care Provider Tickton CALCULATION REVIEWER, CALCULATION REVIEWER-C Debora Attending Provider Dr. Donato Sepulveda Attending Provider Dr. Basilio Flores MD Primary Care Provider Donato Sepulveda MD Attending Provider UnavailDr. Donato Guevara MD Attending Provider Wyatt CALCULATION REVIEWER-C, Debora Attending Provider Donato Sepulveda MD Referring Provider Unavailyifan Flores MD, Dr. Basilio Mckenna Primary Care Provider Donato Sepulveda MD Attending Provider UnavailDr. Armando Elizabeth MD Attending Provider Dr. Armando Rich MD Referring Provider Derick HILARIO, Dr. Sewell Primary Care Provider Wyatt CALCULATION REVIEWER-C, Debora Other Provider Dr. Basilio Flores MD Primary Care Provider Donato Sepulveda MD Attending Provider Unavaila keli Schneider CALCULATION REVIEWER-C, Debora Attending Provider Dr. Donato Sepulveda MD Attending Provider Dr. Donato Sepulveda MD Primary Care Provider Basilio Flores Primary Care Unavailable Tickton CALCULATION REVIEWER, Debora Attending Unavailable Basilio Flores Primary Care Unavailable Donato Sepulveda Attending Unavailable [place]ickton CALCULATION REVIEWER, Debora Attending Unavailable Basilio Flores Primary Care Unavailable Donato Moss Attending UnavailBasilio Solo Primary Care Unavailable Oleghe OLS, Efewongbe Attending Unavailabl e Flores, Basilio K Primary Care Unavailable Oleghe OLS, Efewongbe Referring Unavailabl e Oleghe OLS, Efewongbe Attending Unavailabl e Oleghe, Efewongbe Primary Care Unavailable Oleghe OLS, Efewongbe Attending Unavailabl e Oleghe, Efewongbe Primary Care Unavailable Flores, Basilio K Primary Care Unavailable Tickton CALCULATION REVIEWER, Debora Attending Unavailable Flores, Basilio K Primary [...] Unavailable Oleghe, Efewongbe Primary Care Unavailable [place]ickton CALCULATION REVIEWER, Debora Consulting Unavailable Armando Rich Referring Unavailable Armando Rich Attending Unavailable Oleghe OLS, Efewongbe Attending Unavailabl e Flores, Basilio K Primary Care Unavailable Flores, Basilio K Primary Care Unavailable Oleghe OLS, Efewongbe Attending Unavailabl e Flores, Basilio K Primary Care Unavailable Tickton CALCULATION REVIEWER, Debora Attending Unavailable Flores, Basilio K Primary [...] Care Unavailable Oleghe, Efewongbe Attending Unavailable Tickton CALCULATION REVIEWER, Debora Attending Unavailable Oleghe, Efewongbe Primary Care Unavailable [place] CALCULATION REVIEWER, Debora Attending Unavailable Flores, Basilio K Primary Care Unavailable Tickton CALCULATION REVIEWER, Debora Attending Unavailable Flores, Basilio K Primary Care Unavailable Flores, Basilio K Primary Care Unavailable Oleghe, Efewongbe Attending Unavailable Tickton CALCULATION REVIEWER, Debora Attending Unavailable Flores, Basilio K Primary Care Unavailable Mark HILARIO, Dr. Basilio Mckenna Primary Care Provider Donato Sepulveda MD Attending Provider Unavaila ble Allergies Allergy Classification Reported Allergen(s) Allergy Type Date of Onset Reaction(s) Facility (1 source) Acetaminophen / HYDROcodone Drug Allergy unknown [facility] Work Phone: (1 source) Acetaminophen / oxyCODONE Drug Allergy unknown [facility] Work Phone: (1 source) Acetaminophen / Propoxyphene Drug Allergy unknown [facility] Work Phone: (1 source) Baclofen Drug Allergy unknown [facility] Work Phone: (1 source) Carbidopa / Levodopa Drug Allergy unknown [facility] Work Phone: (1 source) Ibuprofen Drug Allergy kidney disease [facility] Work Phone: (1 source) Ketoprofen Drug Allergy unknown [facility] Work Phone: (1 source) LORazepam Drug Allergy unknown [facility] Work Phone: (1 source) metFORMIN Drug Allergy unknown [facility] Work Phone: (20 sources) Naloxone; Translations: [naloxone] Drug Allergy 018 unknown, Nausea [facility] Work Phone: (1 source) oxaprozin Drug Allergy unknown [facility] Work Phone: (1 source) rofecoxib Drug Allergy unknown [facility] Work Phone: (1 source) rosiglitazone Drug Allergy siblings had severe reactions [facility] Work Phone: (1 source) Sertraline Drug Allergy unknown [facility] Work Phone: (1 source) Simvastatin Drug Allergy unknown [facility] Work Phone: (1 source) Sulfamethoxazole / Trimethoprim Drug Allergy unknown [facility] Work Phone: (1 source) venlafaxine; Translations: [EFFEXOR] Drug Allergy unknown [facility] Work Phone: (20 sources) Carbidopa Drug Allergy 018 Nausea [facility] (20 sources) HYDROcodone; Translations: [hydrocodone bitartrate] Drug Allergy Nausea [facility] (20 sources) Ketoprofen Drug Allergy 018 Unknown [facility] (20 sources) Levodopa Drug Allergy 018 Nausea [facility] (20 sources) LORazepam Drug Allergy 018 hallucination [facility] (20 sources) metFORMIN; Translations: [metformin HCl] Drug Allergy 018 Nausea [facility] (20 sources) oxaprozin Drug Allergy Nausea [facility] (20 sources) oxyCODONE; Translations: [oxycodone HCl] Drug Allergy 018 Nausea [facility] (20 sources) Propoxyphene; Translations: [propoxyphene HCl] Drug Allergy 018 Nausea [facility] (20 sources) rofecoxib Drug Allergy 018 Nausea [facility] (20 sources) rosiglitazone; Translations: [rosiglitazone maleate] Drug Allergy Nausea [facility] (20 sources) Sertraline; Translations: [sertraline HCl] Drug Allergy 018 haullucination [facility] (20 sources) Simvastatin Drug Allergy 018 Nausea [facility] (20 sources) Sulfamethoxazole Drug Allergy Rash [facility] (20 sources) Trimethoprim Drug Allergy Rash [facility] (20 sources) venlafaxine; Translations: [venlafaxine HCl] Drug Allergy Nausea [facility] (20 sources) NSAIDS (Non-Steroidal Anti-Inflamma; Translations: [NSAIDS (Non-Steroidal Anti-Inflamma] Propensity to adverse reactions PT UNSURE OF REACTION [facility] (1 source) Carbidopa Drug Allergy [facility] Repository (1 source) Ketoprofen Drug Allergy [facility] Repository (1 source) Levodopa Drug Allergy [facility] Repository (1 source) LORazepam Drug Allergy [facility] Repository (1 source) oxaprozin Drug Allergy [facility] Repository (1 source) rofecoxib Drug Allergy [facility] Repository (1 source) Simvastatin Drug Allergy [facility] Repository (1 source) Sulfamethoxazole Drug Allergy [facility] Repository (1 source) Trimethoprim Drug Allergy [facility] Repository Medications Current Medications Medication Drug Class(es) [...] night and 40mg twice daily FUROSEMIDE TABS [id number] Rachael Newman MD glucagon (rdna) 1 mg [...] takes 46 units twice daily INSULIN GLARGINE [id number] Rachael Newman MD Start: 04-06-2015 End: 09-26-2017 [...] June 05, 2023 12:00am polyethylene glycol 3350 46661 mg powder for oral solution (7 sources) [...] tabs every 4 hours as needed ACETAMINOPHEN [id number] Rachael Newman MD Start: 09-20-2017 take 650 [...] as directed prior to dental procedures AMOXICILLIN [id number] Rachael Newman MD aspirin 325 mg oral [...] takes one tab once daily ATORVASTATIN CALCIUM [id number] Rachael Newman MD bacillus coagulans [id number] unt / inulin 250 mg oral capsule [...] TABS takes one tab daily DIPHENHYDRAMINE HCL [id number] Rachael Newman MD Start: 03-16-2019 BENADRYL ALLER GY 25 MG CAPS takes one tab once daily DIPHENHYDRAMINE HCL [id number] Rachael Newman MD doxepin hydrochloride 10 mg oral capsule (1 source) Tricyclic Antidepressant Start: 03-16-2019 DOXEPIN HCL 10 MG CAPS takes two tabs daily DOXEPIN HCL [id number] Rachael Newman MD famotidine 20 mg oral [...] CAPS takes one tab once daily GABAPENTIN [id number] Rachael Newman MD Insulin Glargine 100 UNIT/ML [...] sliding scale three times daily INSULIN ASPART [id number] Rachael Newman MD Start: 04-25-2015 End: 09-26-2017 [...] TABS takes one tab once daily LISINOPRIL [id number] Rachael Newman MD melatonin 3 mg oral tablet (20 sources) Start: 12-16-2019 End: 06-08-2023 take 1 tablet by mouth at bedtime Melatonin 3 MG tablet Discontinued 3 mg PO AT BEDTIME December 16, 2019 12:00am June 08, 2023 9:23am Start: 03-16-2019 MELATONIN 10 M G TABS takes one tab once daily MELATONIN [id number] Rachael Newman MD meloxicam 7.5 mg oral [...] CPDR takes one tab once daily OMEPRAZOLE [id number] Rachael Newman MD oxyCODONE hydrochloride 5 mg [...] three times daily as needed OXYCODONE HCL [id number] Rachael Newman MD Start: 07-14-2015 End: 09-20-2017 [...] takes one tab once daily RANITIDINE HCL [id number] Rachael Newman MD rOPINIRole 0.5 mg oral [...] 10-06-2024 Anion gap [Moles/Vol] 10 mmol/L 5-15 [facility] BUN/creatinine ratioOrdered By: Donato Sepulveda on 10-06-2024 Urea nitrogen/Creatinine [Mass ratio] 21.9 mg/mg High 10-20 [facility] Bilirubin directOrdered By: Donato Sepulveda on 10-06-2024 Bilirubin.direct [Mass/Vol] 0.11 mg/dL 0.00-0.30 [facility] Bilirubin, totalOrdered By: Donato Sepulveda on 10-06-2024 Bilirubin [Mass/Vol] 0.24 mg/dL 0.00-1.30 [facility] Calculated very low density lipoprotein (VLDL) cholesterol measurementOrdered By: Donato Sepulveda on 10-06-2024 Calculated very low density lipoprotein (VLDL) cholesterol measurement 14 mg/dL 5-40 [facility] Carbon dioxide, total [Moles /volume] in Central venous bloodOrdered By: Donato Sepulveda on 10-06-2024 CO2 [Moles/Vol] 29.2 mmol/L 21.0-32.0 [facility] Chloride assayOrdered By: Livier Sepulveda on 10-06-2024 Chloride [Moles/Vol] 99 mmol/L 98-108 [facility] Erythrocyte distribution wid th ratioOrdered By: [facility] Sepul[facility] on 10-06-2024 Erythrocyte distribution width (RBC) [Ratio] 12.8 % 11.6-14.6 [facility] Erythrocyte distribution wid th standard deviationOrdered By: stufort leavenworthchar Sepulveda on 10-06-2024 Erythrocyte distribution width (RBC) [Ratio] 43.8 fl 35.1-43.9 [facility] Glomerular filtration rate ( GFR) estimation/1.73 sq m using serum, plasma, or whole bOrdered By: Donato Sepulveda on 10-06-2024 GFR/1.73 sq M.predicted among non-blacks MDRD (S/P/Bld) [Vol rate/Area] 79 mL/min/{1.73_m2} >60 [facility] Comment on above: mL/min/1.73m2 CKD-EP I Creatinine Equation (2020) Hematocrit Auto (Bld) [Volum e fraction]Ordered By: Donato Sepulveda on 10-06-2024 Hematocrit (Bld) [Volume fraction] 37.1 % 37-47 [facility] Hemoglobin A1c percentageOrd ered By: balaji Sepulveda on 10-06-2024 HbA1c (Bld) [Mass fraction] 9.5 % High <5.7 [facility] Comment on above: Normal < 5.7 % Predi abetic 5.7 - 6.4 % Diabetic >or= 6.5 % Please note range changes. Hemoglobin measurementOrdere d By: Donato Sepulveda on 10-06-2024 Hemoglobin (Bld) [Mass/Vol] 11.9 g/dL Low 12.0-15.0 [facility] LDL calc ser/plasOrdered By: Donato Sepulveda on 10-06-2024 Cholesterol in LDL [Mass/Vol] 92 mg/dL [facility] Comment on above: Shdgiwafnt=947-784 m g/dL & Higher Ljxe=449 mg/dL or greater Laboratory - Chemistry and C hemistry - challengeOrdered By: Donato Sepulveda on 10-06-2024 AST [Catalytic activity/Vol] 19 U/L <32 [facility] MCV (mean corpuscular volume ) determinationOrdered By: Donato Sepulveda on 10-06-2024 MCV (RBC) [Entitic vol] 92.8 fL 81-[address] [facility] Mean corpuscular hemoglobin (MCH) determinationOrdered By: Donato Sepulveda on 10-06-2024 MCH (RBC) [Entitic mass] 29.8 pg 27.0-32.0 [facility] Mean corpuscular hemoglobin concentration (MCHC) determinationOrdered By: Donato Sepulveda on 10-06-2024 MCHC (RBC) [Mass/Vol] 32.1 g/dL 32-36 [facility] Mean platelet volume determi nationOrdered By: Donato Sepulveda on 10-06-2024 Platelet mean volume (Bld) [Entitic vol] 10.8 fL 6.2-12.0 [facility] Platelet countOrdered By: Livier Sepulveda on 10-06-2024 Platelets (Bld) [#/Vol] 182 10*3/uL 150-450 [facility] Potassium measurement (mass/ volume)Ordered By: Donato Sepulveda on 10-06-2024 Potassium (Unsp spec) [Mass/Vol] 4.3 mmol/L 3.3-5.1 [facility] RBC Auto (Bld) [#/Vol]Ordere d By: Donato Sepulveda on 10-06-2024 RBC (Bld) [#/Vol] 4.00 10*6/uL Low 4.2-5.4 [facility] Screening total cholesterol/ high density lipoprotein (HDL) cholesterol ratioOrdered By: Donato Sepulveda on 10-06-2024 Cholesterol.total/Choles terol in HDL [Mass ratio] 2.80 {ratio} [facility] Serum creatinine measurement (mass/volume)Ordered By: Donato Sepulveda on 10-06-2024 Creatinine [Mass/Vol] 0.75 mg/dL 0.70-1.20 [facility] Serum globulin measurementOr dered By: Donato Sepulveda on 10-06-2024 Globulin (S) [Mass/Vol] 2.3 g/dL 2.2-4.[address] [facility] Serum glucose measurement (m ass/volume)Ordered By: Donato Sepulveda on 10-06-2024 Glucose [Mass/Vol] 232 mg/dL High 70-99 [facility] Serum or plasma alanine rivera otransferase (ALT) measurementOrdered By: Donato Sepulveda on 10-06-2024 ALT [Catalytic activity/Vol] 8 U/L <35 [facility] Serum or plasma albumin serge urement (mass/volume)Ordered By: Donato Sepulveda on 10-06-2024 Albumin [Mass/Vol] 3.7 g/dL 3.4-4.8 [facility] Serum or plasma alkaline stephane sphatase measurementOrdered By: Donato Sepulveda on 10-06-2024 ALP [Catalytic activity/Vol] 50 U/L 35-104 [facility] Serum or plasma calcium serge urement (mass/volume)Ordered By: Donato Sepulveda on 10-06-2024 Calcium [Mass/Vol] 9.1 mg/dL 7.6-11.0 [facility] Serum or plasma cholesterol in HDL measurement (mass/volume)Ordered By: Donato Sepulveda on 10-06-2024 Cholesterol in HDL [Mass/Vol] 59 mg/dL >40 [facility] Comment on above: National Cholesterol Education Program (NCEP) guidelines:<40 mg/dL: Low HDL-cholesterol (major risk factor for CHD)>= 60 mg/dL: High HDL-cholesterol (negative risk factor for CHD)HDL-cholesterol is affected by a number of factors, e.g. smoking, exercise, hormones, sex and age. Serum or plasma cholesterol measurement (mass/volume)Ordered By: Donato Sepulveda on 10-06-2024 Cholesterol [Mass/Vol] 164 mg/dL <201 [facility] Comment on above: Cholesterol level, D esirable <200 mg/dLBorderline high cholesterol 200-239 mg/dLHigh cholesterol >=240 mg/dLRecommendations of the NCEP Adult Treatment Panel for the following risk-cutoff thresholds for the [place] population. Serum or plasma urea nitroge n measurement (mass/volume)Ordered By: Donato Sepulveda on 10-06-2024 Urea nitrogen [Mass/Vol] 16 mg/dL 4-19 [facility] Sodium levelOrdered By: Raul wickjanelleruthann Sepulveda on 10-06-2024 Sodium [Moles/Vol] 138 mmol/L 133-145 [facility] Total proteinOrdered By: Sherwin Sepulveda on 10-06-2024 Protein [Mass/Vol] 6.0 g/dL 5.9-8.4 [facility] Triglycerides measurementOrd ered By: Donato Sepulveda on 10-06-2024 Triglyceride [Mass/Vol] 68 mg/dL <[address] [facility] Comment on above: The drugs N-Acetylcy steine and Metamizole may falsely depress this assay. Normal range: <150 mg/dLBorderline High: 150-199 mg/dLHigh: 200-499 mg/dLVery High: >500 mg/dL White blood cell (WBC) count Ordered By: Donato Sepulveda on 10-06-2024 WBC (Bld) [#/Vol] 7.1 10*3/uL 4.4-11.0 [facility] Hemoglobin A1c percentageOrd ered By: Donato Sepulveda on 09-08-2024 HbA1c (Bld) [Mass fraction] 8.8 % High <5.7 [facility] Comment on above: Normal < 5.7 % Predi abetic 5.7 - 6.4 % Diabetic >or= 6.5 % Please note range changes. Bedside Glucoseon 08-24-2024 FINGERSTICK GLU 240 mg/dL High 74-106 [facility] Comment on above: Result Comment: JEWELS RAJPUT OF PATIENT CARE PER NURSING PROTOCOL Performed By: #### L 501.080 #### [facility] Laboratory [address] [place], [place], [address] Fluoro Guided Needle Placeme nton 08-24-2024 Fluoro Guided Needle Placement [facility] Services [address] [place], [place] [address] Fluoro Guided Needle Placement MR#: [id number] Acct: [id number] Name: MINDY CHINCHILLA Rep #: [id number] : 1940 F 84 From: Tomi metz MD PCP: Dr. Donato Sepulveda MD Status: [facility] Study: Fluoro Guided Needle Placement Date of Exam: 0 08/24/24 Exam# [id number] Ordering Dr: Armando Rich MD PROCEDURE: FLUORO GUIDED NEEDLE PLACEMENT 08/24/2024 REASON FOR EXAM: RT KNEE INJECTION TECHNIQUE: Intraoperative fluoroscopic services provided for right knee injection. 5.1 seconds of fluoroscopy. 0.85 mGy. 4 images were taken. COMPARISON: None FINDINGS: Intraoperative fluoroscopic services for knee injection. RAD/Fluoro Guided Needle Placement IMPRESSION: Fluoroscopic services provided for right knee injection. Reading Location: [place] [address] CC: Dr. Donato Sepulveda MD; Dr. Armando Rich MD Waiter/Waitress Second Class: Signed Normal [facility] Gl[facility] deOrdered By: Armando Rich on 08-24-2024 Bedside Glucose (Misc Panel) 240 mg/dL High 74-106 [facility] Comment on above: MANAGEMENT OF PATIEN T CARE PER NURSING PROTOCOL Glucose [Mass/Vol] 240 mg/dL High 74-106 [facility] Comment on above: MANAGEMENT OF PATIEN T CARE PER NURSING PROTOCOL Operative Reporton Operative Report [facility] Medical Records Department [address] [place] [address] Operative Report 08/24/24 0932 MR#: [id number] Acct: [id number] Name: MINDY CHINCHILLA Rep #: [id number] : 1940 84 From: Armando Rich MD PCP: Dr. Donato Sepulveda MD Status:[facility] Location: [address] Operative Report (Standard) Operative Information Date of Procedure: 08/24/24 Pre-Operative Diagnosis: Osteoarthritis of the right knee, chronic postoperative knee pain Post-Operative Diagnosis: Osteoarthritis of the right knee, chronic postoperative knee pain Surgery/Procedure Performed: Right knee superior medial/superior lateral/inferior medial genicular nerves steroid injection under fluoroscopic guidance senior javascript developer: No Type of Anesthesia: Local RN Documented [...] MD; Dr. Armando Rich MD Signed Normal [facility] Absolute lymphocyte countOrd ered By: Donato Sepulveda on 07-15-2024 Lymphocytes Auto (Unsp spec) [#/Vol] 1.27 10*3/uL 0.83-4.51 [facility] Absolute neutrophil countOrd ered By: Donato Sepulveda on 07-15-2024 Neutrophils (Bld) [#/Vol] 4.2 10*3/uL 2.0-7.7 [facility] Anion gap in Serum or Plasma Ordered By: Donato Sepulveda on 07-15-2024 Anion gap [Moles/Vol] 12 mmol/L 5-15 [facility] Automated lymphocyte count a s percentage of total leukocytesOrdered By: Donato Sepulveda on 07-15-2024 Lymphocytes/100 WBC Auto (Unsp spec) 21.1 % 19-41 [facility] BUN/creatinine ratioOrdered By: Donato Sepulveda on 07-15-2024 Urea nitrogen/Creatinine [Mass ratio] 17.5 mg/mg 10-20 [facility] Basophil percentageOrdered B y: Donato Sepulveda on 07-15-2024 Basophils/100 WBC (Bld) 0.5 % 0-[address] [facility] Bilirubin Test strip Ql (U)O rdered By: Donato Sepulveda on 07-15-2024 Bilirubin Ql (U) Negative Negative [facility] Bilirubin, totalOrdered By: Livierbalaji Harjitrjruthann on 07-15-2024 Bilirubin [Mass/Vol] 0.31 mg/dL 0.00-1.30 [facility] Carbon dioxide, total [Moles /volume] in Central venous bloodOrdered By: Donato Lombardirjruthann on 07-15-2024 CO2 [Moles/Vol] 28.3 mmol/L 21.0-32.0 [facility] Chloride assayOrdered By: Livier balaji Harjitrjruthann on 07-15-2024 Chloride [Moles/Vol] 98 mmol/L 98-108 [facility] Eosinophil percentageOrdered By: Rauldyanchar Lombardirjruthann on 07-15-2024 Eosinophils/100 WBC (Bld) 1.7 % 0-5 [facility] Erythrocyte distribution wid th (RBC) [Ratio]Ordered By: Donato Sepulveda on 07-15-2024 Erythrocyte distribution width (RBC) [Entitic vol] 43.9 fL 35.1-43.9 [facility] Erythrocyte distribution wid th ratioOrdered By: Galichar Harjitrjruthann on 07-15-2024 Erythrocyte distribution width (RBC) [Ratio] 13.2 % 11.6-14.6 [facility] Erythrocyte distribution wid th standard deviationOrdered By: Donato Harjitbryan on 07-15-2024 Erythrocyte distribution width (RBC) [Ratio] 43.9 fl 35.1-43.9 [facility] GFR/1.73 sq M.predicted maxime g non-blacks MDRD (S/P/Bld) [Vol rate/Area]Ordered By: Donato Sepulveda on 07-15-2024 Estimated GFR (MDRD) Non-Af Amer 88 >60 [facility] Comment on above: mL/min/1.73m2 CKD-EP I Creatinine Equation (2020) Glomerular filtration rate ( GFR) estimation/1.73 sq m using serum, plasma, or whole bOrdered By: Donato Sepulveda on 07-15-2024 GFR/1.73 sq M.predicted among non-blacks MDRD (S/P/Bld) [Vol rate/Area] 88 mL/min/{1.73_m2} >60 [facility] Comment on above: mL/min/1.73m2 CKD-EP I Creatinine Equation (2020) Glucose Ql (U)Ordered By: Livier Sepulveda on 07-15-2024 Glucose (U) [Mass/Vol] 1000 mg/dL High Normal [facility] Hematocrit Auto (Bld) [Volum e fraction]Ordered By: Donato Sepulveda on 07-15-2024 Hematocrit (Bld) [Volume fraction] 38.9 % 37-47 [facility] Hemoglobin measurementOrdere d By: Donato Sepulveda on 07-15-2024 Hemoglobin (Bld) [Mass/Vol] 12.6 g/dL 12.0-15.0 [facility] Immature granulocytes/100 WB C Auto (Bld)Ordered By: Donato Sepulveda on 07-15-2024 Immature granulocytes/100 WBC (Bld) 0.200 % 0.0-0.9 [facility] Comment on above: IG% - Immature Granu locytes (promyelocytes, myelocytes and metamyelocytes) > 1% indicates that a LEFT SHIFT is Present. Ketones Test strip Ql (U)Ord ered By: Donato Sepulveda on 07-15-2024 Ketones Ql (U) Negative Negative [facility] Laboratory - Chemistry and C hemistry - challengeOrdered By: Donato Sepulveda on 07-15-2024 AST [Catalytic activity/Vol] 18 U/L <32 [facility] Lymphocytes Auto (Unsp spec) [#/Vol]Ordered By: Donato Sepulveda on 07-15-2024 Lymphocytes (Bld) [#/Vol] 1.27 10*3/uL 0.83-4.51 [facility] Lymphocytes/100 WBC Auto (Un sp spec)Ordered By: Donato Sepulveda on 07-15-2024 Lymphocytes/100 WBC (Bld) 21.1 % 19-41 [facility] MCV (mean corpuscular volume ) determinationOrdered By: Donato Sepulveda on 07-15-2024 MCV (RBC) [Entitic vol] 91.3 fL 81-[address] [facility] Mean corpuscular hemoglobin (MCH) determinationOrdered By: Donato Sepulveda on 07-15-2024 MCH (RBC) [Entitic mass] 29.6 pg 27.0-32.0 [facility] Mean corpuscular hemoglobin concentration (MCHC) determinationOrdered By: Donato Sepulveda on 07-15-2024 MCHC (RBC) [Mass/Vol] 32.4 g/dL 32-36 [facility] Mean platelet volume determi nationOrdered By: Donato Sepulveda on 07-15-2024 Platelet mean volume (Bld) [Entitic vol] 10.7 fL 6.2-12.0 [facility] Monocyte percentageOrdered B y: Donato Sepulveda on 07-15-2024 Monocytes/100 WBC (Bld) 7.5 % 0-10 [facility] Neutrophil percentageOrdered By: Donato Sepulveda on 07-15-2024 Neutrophils/100 WBC (Bld) 69.0 % 47-70 [facility] Nitrite Test strip Ql (U)Ord ered By: Donato Sepulveda on 07-15-2024 Nitrite Ql (U) Negative Negative [facility] Nucleated red blood cell per centageOrdered By: Donato Sepulveda on 07-15-2024 Nucleated RBC/100 WBC (Bld) [Ratio] 0 % 0-5 [facility] Platelet countOrdered By: Livier stumarcela Sepulveda on 07-15-2024 Platelets (Bld) [#/Vol] 188 10*3/uL 150-450 [facility] Potassium (Unsp spec) [Mass/ Vol]Ordered By: Donato Sepulveda on 07-15-2024 Potassium [Moles/Vol] 4.3 mmol/L 3.3-5.1 [facility] Potassium measurement (mass/ volume)Ordered By: Donato Sepulveda on 07-15-2024 Potassium (Unsp spec) [Mass/Vol] 4.3 mmol/L 3.3-5.1 [facility] Protein Test strip Ql (U)Ord ered By: Donato Sepulveda on 07-15-2024 Protein Ql (U) Negative Negative [facility] RBC Auto (Bld) [#/Vol]Ordere d By: Donato Sepulveda on 07-15-2024 RBC (Bld) [#/Vol] 4.26 10*6/uL 4.2-5.4 [facility] Serum creatinine measurement (mass/volume)Ordered By: Donato Sepulveda on 07-15-2024 Creatinine [Mass/Vol] 0.65 mg/dL Low 0.70-1.20 [facility] Serum globulin measurementOr dered By: Donato Sepulveda on 07-15-2024 Globulin (S) [Mass/Vol] 2.6 g/dL 2.2-4.[address] [facility] Serum glucose measurement (m ass/volume)Ordered By: Donato Sepulveda on 07-15-2024 Glucose [Mass/Vol] 322 mg/dL High 70-99 [facility] Serum or plasma alanine rivera otransferase (ALT) measurementOrdered By: Donato Sepulveda on 07-15-2024 ALT [Catalytic activity/Vol] 9 U/L <35 [facility] Serum or plasma albumin serge urement (mass/volume)Ordered By: Donato Sepulveda on 07-15-2024 Albumin [Mass/Vol] 3.9 g/dL 3.4-4.8 [facility] Serum or plasma albumin/glob ulin mass ratioOrdered By: Donato Sepulveda 07-15-2024 Albumin/Globulin [Mass ratio] 1.5 {ratio} 0.9-2.4 [facility] Serum or plasma alkaline stephane sphatase measurementOrdered By: Donato Sepulveda 07-15-2024 ALP [Catalytic activity/Vol] 59 U/L 35-104 [facility] Serum or plasma calcium serge urement (mass/volume)Ordered By: Donato Sepulveda 07-15-2024 Calcium [Mass/Vol] 9.6 mg/dL 7.6-11.0 [facility] Serum or plasma urea nitroge n measurement (mass/volume)Ordered By: Donato Sepulveda 07-15-2024 Urea nitrogen [Mass/Vol] 11 mg/dL 4-19 [facility] Sodium levelOrdered By: Raul Sepulveda on 07-15-2024 Sodium [Moles/Vol] 138 mmol/L 133-145 [facility] Total proteinOrdered By: Sherwin Sepulveda on 07-15-2024 Protein [Mass/Vol] 6.6 g/dL 5.9-8.4 [facility] Urine blood detectionOrdered By: Donato Sepulveda on 07-15-2024 Urine Occult Blood Negative Negative [facility] Urine clarityOrdered By: Sehrwin Sepulveda on 07-15-2024 Clarity (U) Sl. Cloudy Clear [facility] Urine color determinationOrd ered By: Donato Sepulveda on 07-15-2024 Color (U) Yellow Yellow [facility] Urine cultureOrdered By: Sherwin Sepulveda on 07-15-2024 Bacteria identified Cx Nom (U) GNR lactose mate first Abnormal [facility] Bacteria identified Cx Nom (U) Staphylococcus epidermidis Abnormal [facility] Urine glucose detectionOrder ed By: Donato Sepulveda on 07-15-2024 Glucose Ql (U) 1000 mg/dl High Normal [facility] Urine leukocyte esterase det ection by dipstickOrdered By: Donato Sepulveda on 07-15-2024 Leukocyte esterase Test strip Ql (U) Negative Negative [facility] Urine pHOrdered By: Harvey Sepulveda on 07-15-2024 pH (U) 7.0 [pH] 5.0 - 8.0 [facility] Urine specific gravity measu rementOrdered By: Donato Sepulveda on 07-15-2024 Specific gravity (U) [Rel density] 1.010 1.002-1.030 [facility] Urine urobilinogen measureme ntOrdered By: Donato Sepulveda on 07-15-2024 Urobilinogen Ql (U) 1 mg/dl High Normal [facility] Urobilinogen Ql (U)Ordered B y: Donato Sepulveda on 07-15-2024 Urobilinogen (U) [Mass/Vol] 1 mg/dL High Normal [facility] White blood cell (WBC) count Ordered By: Donato Sepulveda on 07-15-2024 WBC (Bld) [#/Vol] 6.0 10*3/uL 4.4-11.0 [facility] Vitamin D, 25-hydroxyOrdered By: Donato Seuplveda on 07-14-2024 Vitamin D 25-Hydroxy 33.9 ng/mL 30-100 [facility] Comment on above: Vitamin D StatusDefi ciency: <20 ng/mL (50nmol/L)Insufficiency: 20-30 ng/mL (50-75 nmol/L)Sufficiency: 30-100 ng/mL (75-250 nmol/L)Toxicity: >100 ng/mL (>250 nmol/L) Bilirubin Test strip Ql (U)O rdered By: Donato Sepulveda on 06-15-2024 Bilirubin Ql (U) Negative Negative [facility] Glucose Ql (U)Ordered By: Livier Sepulveda on 06-15-2024 Glucose (U) [Mass/Vol] 1000 mg/dL High Normal [facility] Ketones Test strip Ql (U)Ord ered By: Donato Sepulveda on 06-15-2024 Ketones Ql (U) Negative Negative [facility] Nitrite Test strip Ql (U)Ord ered By: Donato Sepulveda on 06-15-2024 Nitrite Ql (U) Negative Negative [facility] Protein Test strip Ql (U)Ord ered By: Donato Sepulveda on 06-15-2024 Protein Ql (U) Negative Negative [facility] Urine blood detectionOrdered By: Donato Sepulveda on 06-15-2024 Urine Occult Blood 150 /ul High Negative [facility] Urine clarityOrdered By: Sherwin Sepulveda on 06-15-2024 Clarity (U) Clear Clear [facility] Urine color determinationOrd ered By: Donato Sepulveda on 06-15-2024 Color (U) Yellow Yellow [facility] Urine cultureOrdered By: Sherwin Sepulveda on 06-15-2024 Bacteria identified Cx Nom (U) Mixed Gram Pos & Gram Neg Org Abnormal [facility] Urine glucose detectionOrder ed By: Donato Sepulveda on 06-15-2024 Glucose Ql (U) 1000 mg/dl High Normal [facility] Urine leukocyte esterase det ection by dipstickOrdered By: Donato Sepulveda on 06-15-2024 Leukocyte esterase Test strip Ql (U) 25 /ul High Negative [facility] Urine pHOrdered By: Harvey Sepulveda on 06-15-2024 pH (U) 6.0 [pH] 5.0 - 8.0 [facility] Urine specific gravity measu rementOrdered By: Donato Sepulveda on 06-15-2024 Specific gravity (U) [Rel density] 1.010 1.002-1.030 [facility] Urine urobilinogen measureme ntOrdered By: Donato Sepulveda on 06-15-2024 Urobilinogen Ql (U) Normal mg/dl Normal [facility] Urobilinogen Ql (U)Ordered B y: Donato Sepulveda on 06-15-2024 Urine Urobilinogen Normal mg/dl Normal [facility] Hemoglobin A1c percentageOrd ered By: Donato Sepulveda on 06-09-2024 HbA1c (Bld) [Mass fraction] 8.6 % High 3.8-5.6 [facility] Comment on above: Normal < 5.7 % Predi abetic 5.7 - 6.4 % Diabetic >or= 6.5 % Please note range changes. [id number] DOrdered By: Ruthann Sepulveda on 06-02-2024 Vitamin D 25-Hydroxy 53.0 ng/mL [facility] Comment on above: Vitamin D 25(OH) Sta tus Range Deficiency <20 ng/mL (50nmol/L) Insufficiency 20 - 30 ng/mL (50 - 75 nmol/L) Sufficiency 30 - 100 ng/mL (75 - 250 nmol/L) Toxicity >100 ng/mL (>250 nmol/L) [id number]-Ubwvuew DOrdered By: Ruthann Sepulveda on 04-21-2024 Vitamin D 25-Hydroxy 64.0 ng/mL [facility] Comment on above: Vitamin D 25(OH) Sta tus Range Deficiency <20 ng/mL (50nmol/L) Insufficiency 20 - 30 ng/mL (50 - 75 nmol/L) Sufficiency 30 - 100 ng/mL (75 - 250 nmol/L) Toxicity >100 ng/mL (>250 nmol/L) Basophil percentageOrdered B y: Donato Sepulveda on 08-06-2023 Bilirubin [Mass/Vol] 0.50 mg/dL 0.20-1.00 [facility] Comment on above: For patients on eltr ombopag therapy, use of Dimension [place] TBIL is not recommended. Chloride [Moles/Vol] 105 mmol/L 98-107 [facility] Glucose [Mass/Vol] 153 mg/dL 74-106 [facility] Comment on above: Fasting Glucose resu lt greater than or equal to 126 mg/dL suggests DIABETES MELLITUS per A.D.A. criteria. Hemoglobin (Bld) [Mass/Vol] 12.4 g/dL 12.0-15.0 [facility] Potassium [Moles/Vol] 4.0 mmol/L 3.5-5.1 [facility] Protein [Mass/Vol] 6.7 g/dL 6.4-8.2 [facility] Sodium [Moles/Vol] 139 mmol/L 136-145 [facility] WBC (Bld) [#/Vol] 5.9 10*3/uL 4.4-11.0 [facility] Determination of erythrocyte mean corpuscular volume (MCV)Ordered By: Donato Sepulveda on 08-06-2023 MCV (RBC) [Entitic vol] 92.5 fL 81-[address] [facility] Erythrocyte distribution wid th ratioOrdered By: Raulfort leavenworthchar Sepulveda on 08-06-2023 Erythrocyte distribution width (RBC) [Ratio] 13.3 % 11.6-14.6 [facility] Erythrocyte distribution wid th standard deviationOrdered By: Raulfort leavenworthchar Sepulveda on 08-06-2023 Erythrocyte distribution width (RBC) [Entitic vol] 45.2 fL 35.1-43.9 [facility] Hematocrit Auto (Bld) [Volum e fraction]Ordered By: Donato Sepulveda on 08-06-2023 Hematocrit (Bld) [Volume fraction] 39.7 % 37-47 [facility] Laboratory - Chemistry and C hemistry - challengeOrdered By: Donato Sepulveda on 08-06-2023 Albumin/Globulin [Mass ratio] 1.0 {ratio} 0.9-2.4 [facility] ALP [Catalytic activity/Vol] 59 U/L 45-117 [facility] ALT [Catalytic activity/Vol] 13 U/L 13-56 [facility] CO2 [Moles/Vol] 29.0 mmol/L 21.0-32.0 [facility] Globulin (S) [Mass/Vol] 3.3 g/dL 2.2-4.[address] [facility] Urea nitrogen/Creatinine [Mass ratio] 14.4 mg/mg 10-20 [facility] Laboratory - Hematology and Cell countsOrdered By: Donato Sepulveda on 08-06-2023 MCH (RBC) [Entitic mass] 28.9 pg 27.0-32.0 [facility] MCHC (RBC) [Mass/Vol] 31.2 g/dL 32-36 [facility] Platelet mean volume (Bld) [Entitic vol] 10.1 fL 6.2-12.0 [facility] Platelets (Bld) [#/Vol] 187 10*3/uL 150-450 [facility] No Panel InformationOrdered By: Donato Sepulveda on 08-06-2023 Estimated GFR (MDRD) Amer 94 mL/min >60 [facility] Comment on above: GFR Calc Estimated GFR (MDRD) Non-Af Amer 77 mL/min >60 [facility] Comment on above: Non- GFR Calc RBC Auto (Bld) [#/Vol]Ordere d By: Donato Sepulveda on 08-06-2023 RBC (Bld) [#/Vol] 4.29 10*6/uL 4.2-5.4 [facility] Serum or plasma calcium serge urement (mass/volume)Ordered By: Donato Sepulveda on 08-06-2023 Calcium [Mass/Vol] 9.0 mg/dL 8.5-10.1 [facility] Serum or plasma creatinine m easurement (mass/volume)Ordered By: Donato Sepulveda on 08-06-2023 Creatinine [Mass/Vol] 0.76 mg/dL 0.55-1.02 [facility] Comment on above: The validity of the calculated GFR & GFRAA in patients over 70 years has not been determined. Clinical correlation is essential. Serum or plasma urea nitroge n measurement (mass/volume)Ordered By: Donato Sepulveda on 08-06-2023 Urea nitrogen [Mass/Vol] 11 mg/dL 7-18 [facility] Thin prep Papanicolaou smear with manual screeningOrdered By: Donato Sepulveda on 08-06-2023 Thin prep Papanicolaou smear with manual screening 3.4 g/dL 3.2-5.0 [facility] Thin prep Papanicolaou smear with manual screening 15 U/L 15-37 [facility] Thin prep Papanicolaou smear with manual screening 5 5-15 [facility] Basophil percentageOrdered B y: Donato Sepulveda on 06-11-2023 Bilirubin [Mass/Vol] 0.50 mg/dL 0.20-1.00 [facility] Comment on above: For patients on eltr ombopag therapy, use of Dimension [place] TBIL is not recommended. Chloride [Moles/Vol] 105 mmol/L 98-107 [facility] Glucose [Mass/Vol] 92 mg/dL 74-106 [facility] Hemoglobin (Bld) [Mass/Vol] 12.1 g/dL 12.0-15.0 [facility] Potassium [Moles/Vol] 3.7 mmol/L 3.5-5.1 [facility] Protein [Mass/Vol] 6.9 g/dL 6.4-8.2 [facility] Sodium [Moles/Vol] 140 mmol/L 136-145 [facility] WBC (Bld) [#/Vol] 7.0 10*3/uL 4.4-11.0 [facility] Determination of erythrocyte mean corpuscular volume (MCV)Ordered By: Donato Sepulveda on 06-11-2023 MCV (RBC) [Entitic vol] 92.6 fL 81-[address] [facility] Erythrocyte distribution wid th ratioOrdered By: Donato Sepulveda on 06-11-2023 Erythrocyte distribution width (RBC) [Ratio] 12.5 % 11.6-14.6 [facility] Erythrocyte distribution wid th standard deviationOrdered By: Donato Sepulveda on 06-11-2023 Erythrocyte distribution width (RBC) [Entitic vol] 42.4 fL 35.1-43.9 [facility] Hematocrit Auto (Bld) [Volum e fraction]Ordered By: Donato Sepulveda on 06-11-2023 Hematocrit (Bld) [Volume fraction] 38.6 % 37-47 [facility] Laboratory - Chemistry and C hemistry - challengeOrdered By: Donato Sepulveda on 06-11-2023 Albumin/Globulin [Mass ratio] 0.8 {ratio} 0.9-2.4 [facility] ALP [Catalytic activity/Vol] 85 U/L 45-117 [facility] ALT [Catalytic activity/Vol] 18 U/L 13-56 [facility] CO2 [Moles/Vol] 29.0 mmol/L 21.0-32.0 [facility] Globulin (S) [Mass/Vol] 3.8 g/dL 2.2-4.[address] [facility] Urea nitrogen/Creatinine [Mass ratio] 18.3 mg/mg 10-20 [facility] Laboratory - Hematology and Cell countsOrdered By: Donato Sepulveda on 06-11-2023 MCH (RBC) [Entitic mass] 29.0 pg 27.0-32.0 [facility] MCHC (RBC) [Mass/Vol] 31.3 g/dL 32-36 [facility] Platelet mean volume (Bld) [Entitic vol] 11.0 fL 6.2-12.0 [facility] Platelets (Bld) [#/Vol] 190 10*3/uL 150-450 [facility] No Panel InformationOrdered By: Donato Sepulveda on 06-11-2023 Estimated GFR (MDRD) Amer 80 mL/min >60 [facility] Comment on above: GFR Calc Estimated GFR (MDRD) Non-Af Amer 66 mL/min >60 [facility] Comment on above: Non- GFR Calc Vitamin D 25-Hydroxy 29.3 ng/mL [facility] Comment on above: Vitamin D 25(OH) Sta tus Range Deficiency <20 ng/mL (50nmol/L) Insufficiency 20 - 30 ng/mL (50 - 75 nmol/L) Sufficiency 30 - 100 ng/mL (75 - 250 nmol/L) Toxicity >100 ng/mL (>250 nmol/L) RBC Auto (Bld) [#/Vol]Ordere d By: Donato Sepulveda on 06-11-2023 RBC (Bld) [#/Vol] 4.17 10*6/uL 4.2-5.4 [facility] Serum or plasma calcium serge urement (mass/volume)Ordered By: Donato Sepulveda on 06-11-2023 Calcium [Mass/Vol] 9.2 mg/dL 8.5-10.1 [facility] Serum or plasma creatinine m easurement (mass/volume)Ordered By: Donato Sepulveda on 06-11-2023 Creatinine [Mass/Vol] 0.87 mg/dL 0.55-1.02 [facility] Comment on above: The validity of the calculated GFR & GFRAA in patients over 70 years has not been determined. Clinical correlation is essential. Serum or plasma urea nitroge n measurement (mass/volume)Ordered By: Donato Sepulveda on 06-11-2023 Urea nitrogen [Mass/Vol] 16 mg/dL 7-18 [facility] Thin prep Papanicolaou smear with manual screeningOrdered By: Donato Sepulveda on 06-11-2023 Thin prep Papanicolaou smear with manual screening 3.1 g/dL 3.2-5.0 [facility] Thin prep Papanicolaou smear with manual screening 18 U/L 15-37 [facility] Thin prep Papanicolaou smear with manual screening 6 5-15 [facility] Whole blood hemoglobin A1c/t otal hemoglobin ratio (mass fraction)Ordered By: Donato Sepulveda on 06-11-2023 HbA1c (Bld) [Mass fraction] 8.7 % 3.8-5.6 [facility] Comment on above: Normal < 5.7 % Predi abetic 5.7 - 6.4 % Diabetic >or= 6.5 % Please note range changes. Absolute lymphocyte countOrd ered By: Colleen Walker on 06-05-2023 Lymphocytes Auto (Unsp spec) [#/Vol] 1.18 10*3/uL 0.83-4.51 [facility] Automated lymphocyte count a s percentage of total leukocytesOrdered By: Colleen Walker on 06-05-2023 Lymphocytes/100 WBC Auto (Unsp spec) 13.6 % 19-41 [facility] Basophil percentageOrdered B y: Colleen Walker on 06-05-2023 Basophil percentage 5-10 SEEN /hpf 0-[address] [facility] Basophils/100 WBC (Bld) 0.6 % 0-[address] [facility] Chloride [Moles/Vol] 104 mmol/L 98-107 [facility] Eosinophils/100 WBC (Bld) 2.0 % 0-5 [facility] Glucose [Mass/Vol] 150 mg/dL 74-106 [facility] Comment on above: Fasting Glucose resu lt greater than or equal to 126 mg/dL suggests DIABETES MELLITUS per A.D.A. criteria. Hemoglobin (Bld) [Mass/Vol] 13.2 g/dL 12.0-15.0 [facility] Monocytes/100 WBC (Bld) 7.2 % 0-[address] [facility] Neutrophils (Bld) [#/Vol] 6.6 10*3/uL 2.0-7.7 [facility] Neutrophils/100 WBC (Bld) 76.3 % 47-70 [facility] Potassium [Moles/Vol] 3.6 mmol/L 3.5-5.1 [facility] Sodium [Moles/Vol] 137 mmol/L 136-145 [facility] WBC (Bld) [#/Vol] 8.7 10*3/uL 4.4-11.0 [facility] Bilirubin Test strip Ql (U)O rdered By: Colleen Walker on 06-05-2023 Bilirubin Ql (U) Negative Negative [facility] Determination of erythrocyte mean corpuscular volume (MCV)Ordered By: Colleen Walker on 06-05-2023 MCV (RBC) [Entitic vol] 92.9 fL 81-[address] [facility] Erythrocyte distribution wid th ratioOrdered By: Colleen Walker on 06-05-2023 Erythrocyte distribution width (RBC) [Ratio] 12.6 % 11.6-14.6 [facility] Erythrocyte distribution wid th standard deviationOrdered By: Colleen Walker on 06-05-2023 Erythrocyte distribution width (RBC) [Entitic vol] 43.4 fL 35.1-43.9 [facility] Hematocrit Auto (Bld) [Volum e fraction]Ordered By: Colleen Walker on 06-05-2023 Hematocrit (Bld) [Volume fraction] 42.1 % 37-47 [facility] Immature granulocytes/100 WB C Auto (Bld)Ordered By: Colleen Walker on 06-05-2023 Immature granulocytes/100 WBC (Bld) 0.300 % 0.0-0.9 [facility] Comment on above: IG% - Immature Granu locytes (promyelocytes, myelocytes and metamyelocytes) > 1% indicates that a LEFT SHIFT is Present. Ketones Test strip Ql (U)Ord ered By: Colleen Walker on 06-05-2023 Ketones Ql (U) Negative Negative [facility] Laboratory - Chemistry and C hemistry - challengeOrdered By: Colleen Walker on 06-05-2023 CO2 [Moles/Vol] 32.0 mmol/L 21.0-32.0 [facility] Urea nitrogen/Creatinine [Mass ratio] 21.9 mg/mg 10-20 [facility] Laboratory - Hematology and Cell countsOrdered By: Colleen Walker on 06-05-2023 MCH (RBC) [Entitic mass] 29.1 pg 27.0-32.0 [facility] MCHC (RBC) [Mass/Vol] 31.4 g/dL 32-36 [facility] Nucleated RBC/100 WBC (Bld) [Ratio] 0 % 0-5 [facility] Platelets (Bld) [#/Vol] 180 10*3/uL 150-450 [facility] Mucus LM Ql (Urine sed)Order ed By: Colleen Walker on 06-05-2023 Mucus Ql (Urine sed) 0 SEEN /hpf [facility] Nitrite Test strip Ql (U)Ord ered By: Colleen Walker on 06-05-2023 Nitrite Ql (U) Negative Negative [facility] No Panel InformationOrdered By: Colleen Walker on 06-05-2023 Urine RBC 0 SEEN /hpf 0-5 [facility] Estimated Creatinine Clearance Calc 48.43 ml/min [facility] Estimated GFR (MDRD) Amer 92 mL/min >60 [facility] Comment on above: GFR Calc Estimated GFR (MDRD) Non-Af Amer 76 mL/min >60 [facility] Comment on above: Non- GFR Calc Platelet mean volume Jamie-Ec ker (Bld) [Entitic vol]Ordered By: Colleen Walker on 06-05-2023 Platelet mean volume (Bld) [Entitic vol] 10.3 fL 6.2-12.0 [facility] Protein Test strip Ql (U)Ord ered By: Colleen Walker on 06-05-2023 Protein Ql (U) 15 mg/dl Negative [facility] RBC Auto (Bld) [#/Vol]Ordere d By: Colleen Walker on 06-05-2023 RBC (Bld) [#/Vol] 4.53 10*6/uL 4.2-5.4 [facility] Serum or plasma calcium serge urement (mass/volume)Ordered By: Colleen Walker on 06-05-2023 Calcium [Mass/Vol] 9.3 mg/dL 8.5-10.1 [facility] Serum or plasma creatinine m easurement (mass/volume)Ordered By: Colleen Walker on 06-05-2023 Creatinine [Mass/Vol] 0.78 mg/dL 0.55-1.02 [facility] Comment on above: The validity of the calculated GFR & GFRAA in patients over 70 years has not been determined. Clinical correlation is essential. Serum or plasma urea nitroge n measurement (mass/volume)Ordered By: Colleen Walker on 06-05-2023 Urea nitrogen [Mass/Vol] 17 mg/dL 7-18 [facility] Squamous epithelial cells de tection in urine sediment by light microscopyOrdered By: Colleen Walker on 06-05-2023 Epithelial cells.squamous LM Ql (Urine sed) 5-10 SEEN /hpf 5-10 [facility] Thin prep Papanicolaou smear with manual screeningOrdered By: Colleen Walker on 06-05-2023 Thin prep Papanicolaou smear with manual screening 1 5-15 [facility] Urine blood detectionOrdered By: Colleen Walker on 06-05-2023 RBC Ql (U) 50 /ul Negative [facility] Urine clarityOrdered By: Yadira Walker on 06-05-2023 Clarity (U) Sl. Cloudy Clear [facility] Urine color determinationOrd ered By: Colleen Walker on 06-05-2023 Color (U) Yellow Yellow [facility] Urine glucose detectionOrder ed By: Colleen Walker on 06-05-2023 Glucose Ql (U) 1000 mg/dl Normal [facility] Urine leukocyte esterase det ection by dipstickOrdered By: Colleen Walker on 06-05-2023 Leukocyte esterase Test strip Ql (U) 100 /ul Negative [facility] Urine pHOrdered By: Colleen ma on 06-05-2023 pH (U) 6.0 [pH] 5.0 - 8.0 [facility] Urine sediment bacteria coun t by microscopy (number/high power field)Ordered By: Colleen Walker on 06-05-2023 Bacteria LM.HPF (Urine sed) [#/Area] 0 /[HPF] None Seen [facility] Urine specific gravity measu rementOrdered By: Colleen Walker on 06-05-2023 Specific gravity (U) [Rel density] 1.015 1.002-1.030 [facility] Urine urobilinogen measureme ntOrdered By: Colleen Walker on 06-05-2023 Urobilinogen Ql (U) Normal mg/dl Normal [facility] Absolute lymphocyte countOrd ered By: Donato Sepulveda on 04-23-2023 Lymphocytes Auto (Unsp spec) [#/Vol] 1.27 10*3/uL 0.83-4.51 [facility] Basophil percentageOrdered B y: Donato Sepulveda on 04-23-2023 Basophils/100 WBC (Bld) 0.3 % 0-[address] [facility] Chloride [Moles/Vol] 106 mmol/L 98-107 [facility] Eosinophils/100 WBC (Bld) 4.6 % 0-5 [facility] Glucose [Mass/Vol] 96 mg/dL 74-106 [facility] Neutrophils (Bld) [#/Vol] 4.1 10*3/uL 2.0-7.7 [facility] Neutrophils/100 WBC (Bld) 67.6 % 47-70 [facility] Potassium [Moles/Vol] 3.7 mmol/L 3.5-5.1 [facility] Sodium [Moles/Vol] 141 mmol/L 136-145 [facility] WBC (Bld) [#/Vol] 6.1 10*3/uL 4.4-11.0 [facility] Blood erythrocytes count (nu mber/volume)Ordered By: Donato Sepulveda on 04-23-2023 RBC (Bld) [#/Vol] 4.10 10*6/uL 4.2-5.4 [facility] Blood hemoglobin measurement (mass/volume)Ordered By: Donato Sepulveda on 04-23-2023 Hemoglobin (Bld) [Mass/Vol] 12.0 g/dL 12.0-15.0 [facility] Blood lymphocytes/100 leukoc ytesOrdered By: Donato Sepulveda on 04-23-2023 Lymphocytes/100 WBC (Bld) 20.9 % 19-41 [facility] Blood monocytes/100 leukocyt esOrdered By: Donato Sepulveda on 04-23-2023 Monocytes/100 WBC (Bld) 6.1 % 0-[address] [facility] Blood platelet mean volumeOr dered By: Donato Sepulveda on 04-23-2023 Platelet mean volume (Bld) [Entitic vol] 10.3 fL 6.2-12.0 [facility] Determination of erythrocyte mean corpuscular volume (MCV)Ordered By: Donato Sepulveda on 04-23-2023 MCV (RBC) [Entitic vol] 93.9 fL 81-[address] [facility] Hematocrit Auto (Bld) [Volum e fraction]Ordered By: Donato Sepulveda on 04-23-2023 Hematocrit (Bld) [Volume fraction] 38.5 % 37-47 [facility] Laboratory - Chemistry and C hemistry - challengeOrdered By: Donato Sepulveda on 04-23-2023 CO2 [Moles/Vol] 32.0 mmol/L 21.0-32.0 [facility] Urea nitrogen/Creatinine [Mass ratio] 21.8 mg/mg 10-20 [facility] Laboratory - Hematology and Cell countsOrdered By: Donato Sepulveda on 04-23-2023 Erythrocyte distribution width (RBC) [Entitic vol] 44.9 fL 35.1-43.9 [facility] Erythrocyte distribution width (RBC) [Ratio] 13.0 % 11.6-14.6 [facility] Immature granulocytes/100 WBC (Bld) 0.500 % 0.0-0.9 [facility] Comment on above: IG% - Immature Granu locytes (promyelocytes, myelocytes and metamyelocytes) > 1% indicates that a LEFT SHIFT is Present. MCH (RBC) [Entitic mass] 29.3 pg 27.0-32.0 [facility] Nucleated RBC/100 WBC (Bld) [Ratio] 0 % 0-5 [facility] MCHC Auto (RBC) [Mass/Vol]Or dered By: Donato Sepulveda on 04-23-2023 MCHC (RBC) [Mass/Vol] 31.2 g/dL 32-36 [facility] No Panel InformationOrdered By: Donato Sepulveda on 04-23-2023 Estimated GFR (MDRD) Amer 106 mL/min >60 [facility] Comment on above: GFR Calc Estimated GFR (MDRD) Non-Af Amer 87 mL/min >60 [facility] Comment on above: Non- GFR Calc Platelets bldOrdered By: Sherwin Sepulveda on 04-23-2023 Platelets (Bld) [#/Vol] 207 10*3/uL 150-450 [facility] Serum or plasma calcium serge urement (mass/volume)Ordered By: Donato Sepulveda on 04-23-2023 Calcium [Mass/Vol] 9.3 mg/dL 8.5-10.1 [facility] Serum or plasma creatinine m easurement (mass/volume)Ordered By: Donato Sepulveda on 04-23-2023 Creatinine [Mass/Vol] 0.69 mg/dL 0.55-1.02 [facility] Comment on above: The validity of the calculated GFR & GFRAA in patients over 70 years has not been determined. Clinical correlation is essential. Serum or plasma urea nitroge n measurement (mass/volume)Ordered By: Donato Sepulveda on 04-23-2023 Urea nitrogen [Mass/Vol] 15 mg/dL 7- [facility] Thin prep Papanicolaou smear with manual screeningOrdered By: stufort leavenworthchar Sepulveda on 04-23-2023 Thin prep Papanicolaou smear with manual screening 3 - [facility] Basophil percentageOrdered B y: Donato Sepulveda on 04-19-2023 Potassium [Moles/Vol] 4.3 mmol/L 3.5-5.1 [facility] Basophil percentageOrdered B y: Donato Sepulveda on 04-09-2023 Bilirubin [Mass/Vol] 0.30 mg/dL 0.20-1.00 [facility] Comment on above: For patients on eltr ombopag therapy, use of Dimension [place] TBIL is not recommended. Chloride [Moles/Vol] 106 mmol/L 98-107 [facility] Glucose [Mass/Vol] 55 mg/dL 74-106 [facility] Potassium [Moles/Vol] 3.9 mmol/L 3.5-5.1 [facility] Protein [Mass/Vol] 7.2 g/dL 6.4-8.2 [facility] Sodium [Moles/Vol] 139 mmol/L 136-145 [facility] WBC (Bld) [#/Vol] 7.9 10*3/uL 4.4-11.0 [facility] Blood erythrocytes count (nu mber/volume)Ordered By: Donato Sepulveda on 04-09-2023 RBC (Bld) [#/Vol] 4.36 10*6/uL 4.2-5.4 [facility] Blood hemoglobin measurement (mass/volume)Ordered By: Donato Sepulveda on 04-09-2023 Hemoglobin (Bld) [Mass/Vol] 12.7 g/dL 12.0-15.0 [facility] Blood platelet mean volumeOr dered By: Donato Sepulveda on 04-09-2023 Platelet mean volume (Bld) [Entitic vol] 10.9 fL 6.2-12.0 [facility] Determination of erythrocyte mean corpuscular volume (MCV)Ordered By: Donato Sepulveda on 04-09-2023 MCV (RBC) [Entitic vol] 94.5 fL 81-[address] [facility] Hematocrit Auto (Bld) [Volum e fraction]Ordered By: Donato Sepulveda on 04-09-2023 Hematocrit (Bld) [Volume fraction] 41.2 % 37-47 [facility] Laboratory - Chemistry and C hemistry - challengeOrdered By: Donato Sepulveda on 04-09-2023 ALP [Catalytic activity/Vol] 90 U/L 45-117 [facility] ALT [Catalytic activity/Vol] 21 U/L 13-56 [facility] CO2 [Moles/Vol] 30.0 mmol/L 21.0-32.0 [facility] Globulin (S) [Mass/Vol] 3.7 g/dL 2.2-4.[address] [facility] Urea nitrogen/Creatinine [Mass ratio] 22.9 mg/mg 10-20 [facility] Laboratory - Hematology and Cell countsOrdered By: Donato Sepulveda on 04-09-2023 Erythrocyte distribution width (RBC) [Entitic vol] 44.3 fL 35.1-43.9 [facility] Erythrocyte distribution width (RBC) [Ratio] 12.8 % 11.6-14.6 [facility] MCH (RBC) [Entitic mass] 29.1 pg 27.0-32.0 [facility] MCHC Auto (RBC) [Mass/Vol]Or dered By: Donato Sepulveda on 04-09-2023 MCHC (RBC) [Mass/Vol] 30.8 g/dL 32-36 [facility] No Panel InformationOrdered By: Donato Sepulveda on 04-09-2023 Estimated GFR (MDRD) Amer 97 mL/min >60 [facility] Comment on above: GFR Calc Estimated GFR (MDRD) Non-Af Amer 80 mL/min >60 [facility] Comment on above: Non- GFR Calc Platelets bldOrdered By: Sherwin Sepulveda on 04-09-2023 Platelets (Bld) [#/Vol] 212 10*3/uL 150-450 [facility] Serum or plasma albumin serge urement (mass/volume)Ordered By: Donato Sepulveda on 04-09-2023 Albumin [Mass/Vol] 3.5 g/dL 3.2-5.0 [facility] Serum or plasma albumin/glob ulin mass ratioOrdered By: Donato Sepulveda on 04-09-2023 Albumin/Globulin [Mass ratio] 0.9 {ratio} 0.9-2.4 [facility] Serum or plasma calcium serge urement (mass/volume)Ordered By: Donato Sepulveda on 04-09-2023 Calcium [Mass/Vol] 9.4 mg/dL 8.5-10.1 [facility] Serum or plasma creatinine m easurement (mass/volume)Ordered By: Donato Sepulveda on 04-09-2023 Creatinine [Mass/Vol] 0.74 mg/dL 0.55-1.02 [facility] Comment on above: The validity of the calculated GFR & GFRAA in patients over 70 years has not been determined. Clinical correlation is essential. Serum or plasma urea nitroge n measurement (mass/volume)Ordered By: Donato Sepulveda on 04-09-2023 Urea nitrogen [Mass/Vol] 17 mg/dL 7-18 [facility] Thin prep Papanicolaou smear with manual screeningOrdered By: Donato Sepulveda on 04-09-2023 Thin prep Papanicolaou smear with manual screening 19 U/L 15-37 [facility] Thin prep Papanicolaou smear with manual screening 3 5-15 [facility] No Panel InformationOrdered By: Donato Sepulveda on 03-12-2023 Vitamin D 25-Hydroxy 34.4 ng/mL [facility] Comment on above: Vitamin D 25(OH) Sta tus Range Deficiency <20 ng/mL (50nmol/L) Insufficiency 20 - 30 ng/mL (50 - 75 nmol/L) Sufficiency 30 - 100 ng/mL (75 - 250 nmol/L) Toxicity >100 ng/mL (>250 nmol/L) Whole blood hemoglobin A1c/t otal hemoglobin ratio (mass fraction)Ordered By: Donato Sepulveda on 03-12-2023 HbA1c (Bld) [Mass fraction] 7.4 % 3.8-5.6 [facility] Comment on above: Normal < 5.7 % Predi abetic 5.7 - 6.4 % Diabetic >or= 6.5 % Please note range changes. Basophil percentageOrdered B y: Donato Sepulveda on 02-05-2023 Bilirubin [Mass/Vol] 0.50 mg/dL 0.20-1.00 [facility] Comment on above: For patients on eltr ombopag therapy, use of Dimension [place] TBIL is not recommended. Chloride [Moles/Vol] 105 mmol/L 98-107 [facility] Glucose [Mass/Vol] 106 mg/dL 74-106 [facility] Comment on above: Fasting Glucose resu lt from 100 to 125 mg/dL suggests IMPAIRED HOMEOSTASIS per A.D.A. criteria. Potassium [Moles/Vol] 4.2 mmol/L 3.5-5.1 [facility] Protein [Mass/Vol] 6.9 g/dL 6.4-8.2 [facility] Sodium [Moles/Vol] 142 mmol/L 136-145 [facility] WBC (Bld) [#/Vol] 6.0 10*3/uL 4.4-11.0 [facility] Blood erythrocytes count (nu mber/volume)Ordered By: Donato Sepulveda on 02-05-2023 RBC (Bld) [#/Vol] 4.18 10*6/uL 4.2-5.4 [facility] Blood hemoglobin measurement (mass/volume)Ordered By: Donato Sepulveda on 02-05-2023 Hemoglobin (Bld) [Mass/Vol] 12.1 g/dL 12.0-15.0 [facility] Blood platelet mean volumeOr dered By: Donato Sepulveda on 02-05-2023 Platelet mean volume (Bld) [Entitic vol] 10.7 fL 6.2-12.0 [facility] Determination of erythrocyte mean corpuscular volume (MCV)Ordered By: Donato Sepulveda on 02-05-2023 MCV (RBC) [Entitic vol] 95.2 fL 81-[address] [facility] Direct bilirubinOrdered By: Donato Sepulveda on 02-05-2023 Bilirubin.direct [Mass/Vol] 0.15 mg/dL 0.00-0.30 [facility] Hematocrit Auto (Bld) [Volum e fraction]Ordered By: Donato Sepulveda on 02-05-2023 Hematocrit (Bld) [Volume fraction] 39.8 % 37-47 [facility] Laboratory - Chemistry and C hemistry - challengeOrdered By: Donato Sepulveda on 02-05-2023 ALP [Catalytic activity/Vol] 73 U/L 45-117 [facility] ALT [Catalytic activity/Vol] 20 U/L 13-56 [facility] CO2 [Moles/Vol] 32.0 mmol/L 21.0-32.0 [facility] Globulin (S) [Mass/Vol] 3.5 g/dL 2.2-4.[address] [facility] Urea nitrogen/Creatinine [Mass ratio] 20.8 mg/mg 10-20 [facility] Laboratory - Hematology and Cell countsOrdered By: Donato Sepulveda on 02-05-2023 Erythrocyte distribution width (RBC) [Entitic vol] 46.1 fL 35.1-43.9 [facility] Erythrocyte distribution width (RBC) [Ratio] 13.1 % 11.6-14.6 [facility] MCH (RBC) [Entitic mass] 28.9 pg 27.0-32.0 [facility] MCHC Auto (RBC) [Mass/Vol]Or dered By: Donato Sepulveda on 02-05-2023 MCHC (RBC) [Mass/Vol] 30.4 g/dL 32-36 [facility] No Panel InformationOrdered By: Donato Sepulveda on 02-05-2023 Estimated GFR (MDRD) Amer 93 mL/min >60 [facility] Comment on above: GFR Calc Estimated GFR (MDRD) Non-Af Amer 76 mL/min >60 [facility] Comment on above: Non- GFR Calc Platelets bldOrdered By: Sherwin Sepulveda on 02-05-2023 Platelets (Bld) [#/Vol] 183 10*3/uL 150-450 [facility] Serum or plasma albumin serge urement (mass/volume)Ordered By: Donato Sepulveda on 02-05-2023 Albumin [Mass/Vol] 3.4 g/dL 3.2-5.0 [facility] Serum or plasma albumin/glob ulin mass ratioOrdered By: Donato Sepulveda on 02-05-2023 Albumin/Globulin [Mass ratio] 1.0 {ratio} 0.9-2.4 [facility] Serum or plasma calcium serge urement (mass/volume)Ordered By: Donato Sepulveda on 02-05-2023 Calcium [Mass/Vol] 9.4 mg/dL 8.5-10.1 [facility] Serum or plasma creatinine m easurement (mass/volume)Ordered By: Donato Sepulveda on 02-05-2023 Creatinine [Mass/Vol] 0.77 mg/dL 0.55-1.02 [facility] Comment on above: The validity of the calculated GFR & GFRAA in patients over 70 years has not been determined. Clinical correlation is essential. Serum or plasma urea nitroge n measurement (mass/volume)Ordered By: Donato Sepulveda on 02-05-2023 Urea nitrogen [Mass/Vol] 16 mg/dL 7-18 [facility] Thin prep Papanicolaou smear with manual screeningOrdered By: Donato Sepulveda on 02-05-2023 Thin prep Papanicolaou smear with manual screening 18 U/L 15-37 [facility] Thin prep Papanicolaou smear with manual screening 5 5-15 [facility] Whole blood hemoglobin A1c/t otal hemoglobin ratio (mass fraction)Ordered By: Donato Sepulveda on 02-05-2023 HbA1c (Bld) [Mass fraction] 7.0 % 3.8-5.6 [facility] Comment on above: Normal < 5.7 % Predi abetic 5.7 - 6.4 % Diabetic >or= 6.5 % Please note range changes. Basophil percentageOrdered B y: Donato Sepulveda on 12-07-2022 Potassium [Moles/Vol] 4.7 mmol/L 3.5-5.1 [facility] Basophil percentageOrdered B y: Donato Sepulveda on 12-04-2022 Bilirubin [Mass/Vol] 0.30 mg/dL 0.20-1.00 [facility] Comment on above: For patients on eltr ombopag therapy, use of Dimension [place] TBIL is not recommended. Chloride [Moles/Vol] 102 mmol/L 98-107 [facility] Glucose [Mass/Vol] 219 mg/dL 74-106 [facility] Comment on above: Glucose result great er than or equal to 200 mg/dLsuggests DIABETES MELLITUS per A.D.A. criteria. Potassium [Moles/Vol] 2.9 mmol/L 3.5-5.1 [facility] Protein [Mass/Vol] 6.6 g/dL 6.4-8.2 [facility] Sodium [Moles/Vol] 137 mmol/L 136-145 [facility] WBC (Bld) [#/Vol] 4.6 10*3/uL 4.4-11.0 [facility] Blood erythrocytes count (nu mber/volume)Ordered By: Donato Sepulveda on 12-04-2022 RBC (Bld) [#/Vol] 4.22 10*6/uL 4.2-5.4 [facility] Blood hemoglobin measurement (mass/volume)Ordered By: Donato Sepulveda on 12-04-2022 Hemoglobin (Bld) [Mass/Vol] 12.4 g/dL 12.0-15.0 [facility] Blood platelet mean volumeOr dered By: Donato Sepulveda on 12-04-2022 Platelet mean volume (Bld) [Entitic vol] 10.7 fL 6.2-12.0 [facility] Determination of erythrocyte mean corpuscular volume (MCV)Ordered By: Donato Sepulveda on 12-04-2022 MCV (RBC) [Entitic vol] 93.8 fL 81-[address] [facility] Hematocrit Auto (Bld) [Volum e fraction]Ordered By: Donato Sepulveda on 12-04-2022 Hematocrit (Bld) [Volume fraction] 39.6 % 37-47 [facility] Laboratory - Chemistry and C hemistry - challengeOrdered By: Donato Sepulveda on 12-04-2022 ALP [Catalytic activity/Vol] 85 U/L 45-117 [facility] ALT [Catalytic activity/Vol] 27 U/L 13-56 [facility] CO2 [Moles/Vol] 33.0 mmol/L 21.0-32.0 [facility] Globulin (S) [Mass/Vol] 3.6 g/dL 2.2-4.[address] [facility] Urea nitrogen/Creatinine [Mass ratio] 13.7 mg/mg 10-20 [facility] Laboratory - Hematology and Cell countsOrdered By: Donato Sepulveda on 12-04-2022 Erythrocyte distribution width (RBC) [Entitic vol] 43.8 fL 35.1-43.9 [facility] Erythrocyte distribution width (RBC) [Ratio] 12.8 % 11.6-14.6 [facility] MCH (RBC) [Entitic mass] 29.4 pg 27.0-32.0 [facility] MCHC Auto (RBC) [Mass/Vol]Or dered By: Donato Sepulveda on 12-04-2022 MCHC (RBC) [Mass/Vol] 31.3 g/dL 32-36 [facility] No Panel InformationOrdered By: Donato Sepulveda on 12-04-2022 Estimated GFR (MDRD) Amer 80 mL/min >60 [facility] Comment on above: GFR Calc Estimated GFR (MDRD) Non-Af Amer 66 mL/min >60 [facility] Comment on above: Non- GFR Calc Vitamin D 25-Hydroxy 40.9 ng/mL [facility] Comment on above: Vitamin D 25(OH) Sta tus Range Deficiency <20 ng/mL (50nmol/L) Insufficiency 20 - 30 ng/mL (50 - 75 nmol/L) Sufficiency 30 - 100 ng/mL (75 - 250 nmol/L) Toxicity >100 ng/mL (>250 nmol/L) Platelets bldOrdered By: Sherwin Sepulveda on 12-04-2022 Platelets (Bld) [#/Vol] 167 10*3/uL 150-450 [facility] Serum or plasma albumin serge urement (mass/volume)Ordered By: Donato Sepulveda on 12-04-2022 Albumin [Mass/Vol] 3.0 g/dL 3.2-5.0 [facility] Serum or plasma albumin/glob ulin mass ratioOrdered By: Donato Sepulveda on 12-04-2022 Albumin/Globulin [Mass ratio] 0.8 {ratio} 0.9-2.4 [facility] Serum or plasma calcium serge urement (mass/volume)Ordered By: Donato Sepulveda on 12-04-2022 Calcium [Mass/Vol] 8.6 mg/dL 8.5-10.1 [facility] Serum or plasma creatinine m easurement (mass/volume)Ordered By: Donato Sepulveda on 12-04-2022 Creatinine [Mass/Vol] 0.88 mg/dL 0.55-1.02 [facility] Comment on above: The validity of the calculated GFR & GFRAA in patients over 70 years has not been determined. Clinical correlation is essential. Serum or plasma urea nitroge n measurement (mass/volume)Ordered By: Donato Sepulveda on 12-04-2022 Urea nitrogen [Mass/Vol] 12 mg/dL 7-18 [facility] Thin prep Papanicolaou smear with manual screeningOrdered By: Donato Sepulveda on 12-04-2022 Thin prep Papanicolaou smear with manual screening 31 U/L 15-37 [facility] Thin prep Papanicolaou smear with manual screening 2 5-15 [facility] Whole blood hemoglobin A1c/t otal hemoglobin ratio (mass fraction)Ordered By: Donato Sepulveda on 12-04-2022 HbA1c (Bld) [Mass fraction] 8.2 % 3.8-5.6 [facility] Comment on above: Normal < 5.7 % Predi abetic 5.7 - 6.4 % Diabetic >or= 6.5 % Please note range changes. Basophil percentageOrdered B y: Donato Sepulveda on 11-21-2022 Potassium [Moles/Vol] 3.3 mmol/L 3.5-5.1 [facility] Basophil percentageOrdered B y: Donato Sepulveda on 10-09-2022 Bilirubin [Mass/Vol] 0.40 mg/dL 0.20-1.00 [facility] Comment on above: For patients on eltr ombopag therapy, use of Dimension [place] TBIL is not recommended. Chloride [Moles/Vol] 104 mmol/L 98-107 [facility] Glucose [Mass/Vol] 135 mg/dL 74-106 [facility] Comment on above: Fasting Glucose resu lt greater than or equal to 126 mg/dL suggests DIABETES MELLITUS per A.D.A. criteria. Potassium [Moles/Vol] 3.1 mmol/L 3.5-5.1 [facility] Protein [Mass/Vol] 6.5 g/dL 6.4-8.2 [facility] Sodium [Moles/Vol] 141 mmol/L 136-145 [facility] WBC (Bld) [#/Vol] 6.8 10*3/uL 4.4-11.0 [facility] Blood erythrocytes count (nu mber/volume)Ordered By: Donato Sepulveda on 10-09-2022 RBC (Bld) [#/Vol] 3.95 10*6/uL 4.2-5.4 [facility] Blood hemoglobin measurement (mass/volume)Ordered By: Donato Sepulveda on 10-09-2022 Hemoglobin (Bld) [Mass/Vol] 11.7 g/dL 12.0-15.0 [facility] Blood platelet mean volumeOr dered By: Donato Sepulveda on 10-09-2022 Platelet mean volume (Bld) [Entitic vol] 10.7 fL 6.2-12.0 [facility] Determination of erythrocyte mean corpuscular volume (MCV)Ordered By: Donato Sepulveda on 10-09-2022 MCV (RBC) [Entitic vol] 94.4 fL 81-[address] [facility] Hematocrit Auto (Bld) [Volum e fraction]Ordered By: Donato Sepulveda on 10-09-2022 Hematocrit (Bld) [Volume fraction] 37.3 % 37-47 [facility] Laboratory - Chemistry and C hemistry - challengeOrdered By: Donato Sepulveda on 10-09-2022 ALP [Catalytic activity/Vol] 61 U/L 45-117 [facility] ALT [Catalytic activity/Vol] 16 U/L 13-56 [facility] CO2 [Moles/Vol] 34.0 mmol/L 21.0-32.0 [facility] Globulin (S) [Mass/Vol] 3.3 g/dL 2.2-4.[address] [facility] Urea nitrogen/Creatinine [Mass ratio] 13.5 mg/mg 10-20 [facility] Laboratory - Hematology and Cell countsOrdered By: Donato Sepulveda on 10-09-2022 Erythrocyte distribution width (RBC) [Entitic vol] 44.6 fL 35.1-43.9 [facility] Erythrocyte distribution width (RBC) [Ratio] 12.8 % 11.6-14.6 [facility] MCH (RBC) [Entitic mass] 29.6 pg 27.0-32.0 [facility] MCHC Auto (RBC) [Mass/Vol]Or dered By: Donato Sepulveda on 10-09-2022 MCHC (RBC) [Mass/Vol] 31.4 g/dL 32-36 [facility] No Panel InformationOrdered By: Donato Sepulveda on 10-09-2022 Estimated GFR (MDRD) Amer 97 mL/min >60 [facility] Comment on above: GFR Calc Estimated GFR (MDRD) Non-Af Amer 80 mL/min >60 [facility] Comment on above: Non- GFR Calc Platelets bldOrdered By: Sherwin Sepulveda on 10-09-2022 Platelets (Bld) [#/Vol] 157 10*3/uL 150-450 [facility] Serum or plasma albumin serge urement (mass/volume)Ordered By: Donato Sepulveda on 10-09-2022 Albumin [Mass/Vol] 3.2 g/dL 3.2-5.0 [facility] Serum or plasma albumin/glob ulin mass ratioOrdered By: Donato Sepulveda on 10-09-2022 Albumin/Globulin [Mass ratio] 1.0 {ratio} 0.9-2.4 [facility] Serum or plasma calcium serge urement (mass/volume)Ordered By: Donato Sepulveda on 10-09-2022 Calcium [Mass/Vol] 9.1 mg/dL 8.5-10.1 [facility] Serum or plasma creatinine m easurement (mass/volume)Ordered By: Donato Sepulveda on 10-09-2022 Creatinine [Mass/Vol] 0.74 mg/dL 0.55-1.02 [facility] Comment on above: The validity of the calculated GFR & GFRAA in patients over 70 years has not been determined. Clinical correlation is essential. Serum or plasma urea nitroge n measurement (mass/volume)Ordered By: Donato Sepulveda on 10-09-2022 Urea nitrogen [Mass/Vol] 10 mg/dL 7-18 [facility] Thin prep Papanicolaou smear with manual screeningOrdered By: Donato Sepulveda on 10-09-2022 Thin prep Papanicolaou smear with manual screening 15 U/L 15-37 [facility] Thin prep Papanicolaou smear with manual screening 3 5-15 [facility] Basophil percentageOrdered B y: Basilio Flores on 10-05-2022 Cholesterol [Mass/Vol] 146 mg/dL <200 [facility] Comment on above: <200 mg/dL Desirable 200-240 mg/dL Borderline >240 mg/dL High Risk Triglyceride [Mass/Vol] 83 mg/dL <[address] [facility] Comment on above: The drugs N-Acetylcy steine and Metamizole may falsely depress this assay.Serum Triglycerides Reference Interval Normal <150 mg/dL Borderline high 150 - 199 mg/dL High 200 - 499 mg/dL Very High > or = 500 mg/dL Serum or plasma cholesterol in HDL measurement (mass/volume)Ordered By: Basilio Flores on 10-05-2022 Cholesterol in HDL [Mass/Vol] 69 mg/dL >40 [facility] Comment on above: The drugs N-Acetylcy steine and Metamizole may falsely depress this assay. Reference Range HDL <40 mg/dL Low HDL Cholesterol HDL >or= 60 mg/dL High HDL Cholesterol Serum or plasma cholesterol in VLDL measurement (mass/volume)Ordered By: Basilio Flores on 10-05-2022 Cholesterol in VLDL [Mass/Vol] 17 mg/dL 5-40 [facility] Serum or plasma low density lipoprotein (LDL) cholesterol measurement (mass/volume)Ordered By: Basilio Flores on 10-05-2022 Cholesterol in LDL [Mass/Vol] 60 mg/dL 0-130 [facility] Basophil percentageOrdered B y: Donato Sepulveda on 10-04-2022 Cholesterol [Mass/Vol] 154 mg/dL <200 [facility] Comment on above: <200 mg/dL Desirable 200-240 mg/dL Borderline >240 mg/dL High Risk Triglyceride [Mass/Vol] 72 mg/dL <[address] [facility] Comment on above: The drugs N-Acetylcy steine and Metamizole may falsely depress this assay.Serum Triglycerides Reference Interval Normal <150 mg/dL Borderline high 150 - 199 mg/dL High 200 - 499 mg/dL Very High > or = 500 mg/dL Serum or plasma cholesterol in HDL measurement (mass/volume)Ordered By: Donato Sepulveda on 10-04-2022 Cholesterol in HDL [Mass/Vol] 70 mg/dL >40 [facility] Comment on above: The drugs N-Acetylcy steine and Metamizole may falsely depress this assay. Reference Range HDL <40 mg/dL Low HDL Cholesterol HDL >or= 60 mg/dL High HDL Cholesterol Serum or plasma cholesterol in VLDL measurement (mass/volume)Ordered By: Donato Sepulveda on 10-04-2022 Cholesterol in VLDL [Mass/Vol] 14 mg/dL 5-40 [facility] Serum or plasma low density lipoprotein (LDL) cholesterol measurement (mass/volume)Ordered By: Donato Sepulveda on 10-04-2022 Cholesterol in LDL [Mass/Vol] 70 mg/dL 0-130 [facility] No Panel InformationOrdered By: Basilio Flores on 09-04-2022 Vitamin D 25-Hydroxy 54.3 ng/mL [facility] Comment on above: Vitamin D 25(OH) Sta tus Range Deficiency <20 ng/mL (50nmol/L) Insufficiency 20 - 30 ng/mL (50 - 75 nmol/L) Sufficiency 30 - 100 ng/mL (75 - 250 nmol/L) Toxicity >100 ng/mL (>250 nmol/L) Whole blood hemoglobin A1c/t otal hemoglobin ratio (mass fraction)Ordered By: Basilio Flores on 09-04-2022 HbA1c (Bld) [Mass fraction] 10.9 % 3.8-5.6 [facility] Comment on above: Normal < 5.7 % Predi abetic 5.7 - 6.4 % Diabetic >or= 6.5 % Please note range changes. Basophil percentageOrdered B y: Donato Sepulveda on 08-07-2022 Bilirubin [Mass/Vol] 0.60 mg/dL 0.20-1.00 [facility] Comment on above: For patients on eltr ombopag therapy, use of Dimension [place] TBIL is not recommended. Chloride [Moles/Vol] 98 mmol/L 98-107 [facility] Glucose [Mass/Vol] 432 mg/dL 74-106 [facility] Comment on above: Glucose result great er than or equal to 200 mg/dLsuggests DIABETES MELLITUS per A.D.A. criteria. Potassium [Moles/Vol] 3.5 mmol/L 3.5-5.1 [facility] Protein [Mass/Vol] 6.8 g/dL 6.4-8.2 [facility] Sodium [Moles/Vol] 136 mmol/L 136-145 [facility] WBC (Bld) [#/Vol] 4.7 10*3/uL 4.4-11.0 [facility] Blood erythrocytes count (nu mber/volume)Ordered By: Donato Sepulveda on 08-07-2022 RBC (Bld) [#/Vol] 4.19 10*6/uL 4.2-5.4 [facility] Blood hemoglobin measurement (mass/volume)Ordered By: Donato Sepulveda on 08-07-2022 Hemoglobin (Bld) [Mass/Vol] 12.2 g/dL 12.0-15.0 [facility] Blood platelet mean volumeOr dered By: Donato Sepulveda on 08-07-2022 Platelet mean volume (Bld) [Entitic vol] 10.5 fL 6.2-12.0 [facility] Determination of erythrocyte mean corpuscular volume (MCV)Ordered By: Donato Sepulveda on 08-07-2022 MCV (RBC) [Entitic vol] 92.8 fL 81-[address] [facility] Hematocrit Auto (Bld) [Volum e fraction]Ordered By: Donato Sepulveda on 08-07-2022 Hematocrit (Bld) [Volume fraction] 38.9 % 37-47 [facility] Laboratory - Chemistry and C hemistry - challengeOrdered By: [facility] on 08-07-2022 ALP [Catalytic activity/Vol] 70 U/L 45-117 [facility] ALT [Catalytic activity/Vol] 19 U/L 13-56 [facility] CO2 [Moles/Vol] 36.0 mmol/L 21.0-32.0 [facility] Globulin (S) [Mass/Vol] 3.4 g/dL 2.2-4.[address] [facility] Magnesium [Mass/Vol] 1.8 mg/dL 1.6-2.6 [facility] Urea nitrogen/Creatinine [Mass ratio] 15.1 mg/mg 10-20 [facility] Laboratory - Hematology and Cell countsOrdered By: Raulfort leavenworthchar eSpulveda on 08-07-2022 Erythrocyte distribution width (RBC) [Entitic vol] 44.1 fL 35.1-43.9 [facility] Erythrocyte distribution width (RBC) [Ratio] 13.0 % 11.6-14.6 [facility] MCH (RBC) [Entitic mass] 29.1 pg 27.0-32.0 [facility] MCHC Auto (RBC) [Mass/Vol]Or dered By: Donato Sepulveda on 08-07-2022 MCHC (RBC) [Mass/Vol] 31.4 g/dL 32-36 [facility] No Panel InformationOrdered By: Donato Sepulveda on 08-07-2022 Estimated GFR (MDRD) Amer 64 mL/min >60 [facility] Comment on above: GFR Calc Estimated GFR (MDRD) Non-Af Amer 53 mL/min >60 [facility] Comment on above: Non- GFR Calc Platelets bldOrdered By: Sherwin Sepulveda on 08-07-2022 Platelets (Bld) [#/Vol] 165 10*3/uL 150-450 [facility] Serum or plasma albumin serge urement (mass/volume)Ordered By: Donato Sepulveda on 08-07-2022 Albumin [Mass/Vol] 3.4 g/dL 3.2-5.0 [facility] Serum or plasma albumin/glob ulin mass ratioOrdered By: Donato Sepulveda on 08-07-2022 Albumin/Globulin [Mass ratio] 1.0 {ratio} 0.9-2.4 [facility] Serum or plasma calcium serge urement (mass/volume)Ordered By: Donato Sepulveda on 08-07-2022 Calcium [Mass/Vol] 9.7 mg/dL 8.5-10.1 [facility] Serum or plasma creatinine m easurement (mass/volume)Ordered By: Donato Sepulveda on 08-07-2022 Creatinine [Mass/Vol] 1.06 mg/dL 0.55-1.02 [facility] Comment on above: The validity of the calculated GFR & GFRAA in patients over 70 years has not been determined. Clinical correlation is essential. Serum or plasma urea nitroge n measurement (mass/volume)Ordered By: Donato Sepulveda on 08-07-2022 Urea nitrogen [Mass/Vol] 16 mg/dL 7-18 [facility] Thin prep Papanicolaou smear with manual screeningOrdered By: Donato Sepulveda on 08-07-2022 Thin prep Papanicolaou smear with manual screening 15 U/L 15-37 [facility] Thin prep Papanicolaou smear with manual screening 2 5-15 [facility] Basophil percentageOrdered B y: Basilio Flores on 06-12-2022 Bilirubin [Mass/Vol] 1.10 mg/dL 0.20-1.00 [facility] Comment on above: For patients on eltr ombopag therapy, use of Dimension [place] TBIL is not recommended. Chloride [Moles/Vol] 99 mmol/L 98-107 [facility] Glucose [Mass/Vol] 163 mg/dL 74-106 [facility] Comment on above: Fasting Glucose resu lt greater than or equal to 126 mg/dL suggests DIABETES MELLITUS per A.D.A. criteria. Potassium [Moles/Vol] 3.4 mmol/L 3.5-5.1 [facility] Protein [Mass/Vol] 7.4 g/dL 6.4-8.2 [facility] Sodium [Moles/Vol] 141 mmol/L 136-145 [facility] WBC (Bld) [#/Vol] 8.0 10*3/uL 4.4-11.0 [facility] Blood erythrocytes count (nu mber/volume)Ordered By: Basilio Flores on 06-12-2022 RBC (Bld) [#/Vol] 4.53 10*6/uL 4.2-5.4 [facility] Blood hemoglobin measurement (mass/volume)Ordered By: Basilio Flores on 06-12-2022 Hemoglobin (Bld) [Mass/Vol] 13.2 g/dL 12.0-15.0 [facility] Blood platelet mean volumeOr dered By: Basilio Flores on 06-12-2022 Platelet mean volume (Bld) [Entitic vol] 10.4 fL 6.2-12.0 [facility] Determination of erythrocyte mean corpuscular volume (MCV)Ordered By: Basilio Flores on 06-12-2022 MCV (RBC) [Entitic vol] 90.5 fL 81-[address] [facility] Hematocrit Auto (Bld) [Volum e fraction]Ordered By: Basilio Flores on 06-12-2022 Hematocrit (Bld) [Volume fraction] 41.0 % 37-47 [facility] Laboratory - Chemistry and C hemistry - challengeOrdered By: Basilio Flores on 06-12-2022 ALP [Catalytic activity/Vol] 88 U/L 45-117 [facility] ALT [Catalytic activity/Vol] 20 U/L 13-56 [facility] CO2 [Moles/Vol] 34.0 mmol/L 21.0-32.0 [facility] Globulin (S) [Mass/Vol] 3.7 g/dL 2.2-4.[address] [facility] Urea nitrogen/Creatinine [Mass ratio] 15.1 mg/mg 10-20 [facility] Laboratory - Hematology and Cell countsOrdered By: Basilio Flores on 06-12-2022 Erythrocyte distribution width (RBC) [Entitic vol] 42.0 fL 35.1-43.9 [facility] Erythrocyte distribution width (RBC) [Ratio] 12.8 % 11.6-14.6 [facility] MCH (RBC) [Entitic mass] 29.1 pg 27.0-32.0 [facility] MCHC Auto (RBC) [Mass/Vol]Or dered By: Basilio Flores on 06-12-2022 MCHC (RBC) [Mass/Vol] 32.2 g/dL 32-36 [facility] No Panel InformationOrdered By: Basilio Flores on 06-12-2022 Estimated GFR (MDRD) Amer 82 mL/min >60 [facility] Comment on above: GFR Calc Estimated GFR (MDRD) Non-Af Amer 67 mL/min >60 [facility] Comment on above: Non- GFR Calc Vitamin D 25-Hydroxy 49.1 ng/mL [facility] Comment on above: Vitamin D 25(OH) Sta tus Range Deficiency <20 ng/mL (50nmol/L) Insufficiency 20 - 30 ng/mL (50 - 75 nmol/L) Sufficiency 30 - 100 ng/mL (75 - 250 nmol/L) Toxicity >100 ng/mL (>250 nmol/L) Platelets bldOrdered By: August Flores on 06-12-2022 Platelets (Bld) [#/Vol] 188 10*3/uL 150-450 [facility] Serum or plasma albumin serge urement (mass/volume)Ordered By: Basilio Flores on 06-12-2022 Albumin [Mass/Vol] 3.7 g/dL 3.2-5.0 [facility] Serum or plasma albumin/glob ulin mass ratioOrdered By: Basilio Flores on 06-12-2022 Albumin/Globulin [Mass ratio] 1.0 {ratio} 0.9-2.4 [facility] Serum or plasma calcium serge urement (mass/volume)Ordered By: Basilio Flores on 06-12-2022 Calcium [Mass/Vol] 9.5 mg/dL 8.5-10.1 [facility] Serum or plasma creatinine m easurement (mass/volume)Ordered By: Basilio Flores on 06-12-2022 Creatinine [Mass/Vol] 0.86 mg/dL 0.55-1.02 [facility] Comment on above: The validity of the calculated GFR & GFRAA in patients over 70 years has not been determined. Clinical correlation is essential. Serum or plasma urea nitroge n measurement (mass/volume)Ordered By: Basilio Flores on 06-12-2022 Urea nitrogen [Mass/Vol] 13 mg/dL 7-18 [facility] Thin prep Papanicolaou smear with manual screeningOrdered By: Basilio Flores on 06-12-2022 Thin prep Papanicolaou smear with manual screening 18 U/L 15-37 [facility] Thin prep Papanicolaou smear with manual screening 8 5-15 [facility] Whole blood hemoglobin A1c/t otal hemoglobin ratio (mass fraction)Ordered By: Basilio Flores on 06-12-2022 HbA1c (Bld) [Mass fraction] 9.2 % 3.8-5.6 [facility] Comment on above: Normal < 5.7 % Predi abetic 5.7 - 6.4 % Diabetic >or= 6.5 % Please note range changes. Basophil percentageOrdered B y: Donato Sepulveda on 04-17-2022 Chloride [Moles/Vol] 97 mmol/L 98-107 [facility] Glucose [Mass/Vol] 328 mg/dL 74-106 [facility] Comment on above: Glucose result great er than or equal to 200 mg/dLsuggests DIABETES MELLITUS per A.D.A. criteria. Potassium [Moles/Vol] 3.6 mmol/L 3.5-5.1 [facility] Sodium [Moles/Vol] 137 mmol/L 136-145 [facility] Laboratory - Chemistry and C hemistry - challengeOrdered By: Donato Sepulvdea on 04-17-2022 CO2 [Moles/Vol] 36.0 mmol/L 21.0-32.0 [facility] Urea nitrogen/Creatinine [Mass ratio] 13.7 mg/mg 10-20 [facility] No Panel InformationOrdered By: Donato Sepulveda on 04-17-2022 Estimated GFR (MDRD) Amer 73 mL/min >60 [facility] Comment on above: GFR Calc Estimated GFR (MDRD) Non-Af Amer 60 mL/min >60 [facility] Comment on above: Non- GFR Calc Serum or plasma calcium serge urement (mass/volume)Ordered By: Donato Sepulveda on 04-17-2022 Calcium [Mass/Vol] 9.5 mg/dL 8.5-10.1 [facility] Serum or plasma creatinine m easurement (mass/volume)Ordered By: Donato Sepulveda on 04-17-2022 Creatinine [Mass/Vol] 0.95 mg/dL 0.55-1.02 [facility] Comment on above: The validity of the calculated GFR & GFRAA in patients over 70 years has not been determined. Clinical correlation is essential. Serum or plasma urea nitroge n measurement (mass/volume)Ordered By: Donato Sepulveda on 04-17-2022 Urea nitrogen [Mass/Vol] 13 mg/dL 7-18 [facility] Thin prep Papanicolaou smear with manual screeningOrdered By: stufort leavenworthchar Sepulveda on 04-17-2022 Thin prep Papanicolaou smear with manual screening 4 5-15 [facility] Basophil percentageOrdered B y: Donato Sepulveda on 04-13-2022 Potassium [Moles/Vol] 3.2 mmol/L 3.5-5.1 [facility] Basophil percentageOrdered B y: Basilio Flores on 04-10-2022 Bilirubin [Mass/Vol] 0.50 mg/dL 0.20-1.00 [facility] Comment on above: For patients on eltr ombopag therapy, use of Dimension [place] TBIL is not recommended. Chloride [Moles/Vol] 97 mmol/L 98-107 [facility] Glucose [Mass/Vol] 366 mg/dL 74-106 [facility] Comment on above: Glucose result great er than or equal to 200 mg/dLsuggests DIABETES MELLITUS per A.D.A. criteria. Potassium [Moles/Vol] 3.1 mmol/L 3.5-5.1 [facility] Protein [Mass/Vol] 7.3 g/dL 6.4-8.2 [facility] Sodium [Moles/Vol] 136 mmol/L 136-145 [facility] WBC (Bld) [#/Vol] 6.4 10*3/uL 4.4-11.0 [facility] Blood erythrocytes count (nu mber/volume)Ordered By: Basilio Flores on 04-10-2022 RBC (Bld) [#/Vol] 4.33 10*6/uL 4.2-5.4 [facility] Blood hemoglobin measurement (mass/volume)Ordered By: Basilio Flores on 04-10-2022 Hemoglobin (Bld) [Mass/Vol] 12.7 g/dL 12.0-15.0 [facility] Blood platelet mean volumeOr dered By: Basilio Flores on 04-10-2022 Platelet mean volume (Bld) [Entitic vol] 10.8 fL 6.2-12.0 [facility] Determination of erythrocyte mean corpuscular volume (MCV)Ordered By: Basilio Flores on 04-10-2022 MCV (RBC) [Entitic vol] 91.5 fL 81-[address] [facility] Hematocrit Auto (Bld) [Volum e fraction]Ordered By: Basilio Flores on 04-10-2022 Hematocrit (Bld) [Volume fraction] 39.6 % 37-47 [facility] Laboratory - Chemistry and C hemistry - challengeOrdered By: Basilio Flores on 04-10-2022 ALP [Catalytic activity/Vol] 90 U/L 45-117 [facility] ALT [Catalytic activity/Vol] 24 U/L 13-56 [facility] CO2 [Moles/Vol] 37.0 mmol/L 21.0-32.0 [facility] Globulin (S) [Mass/Vol] 4.0 g/dL 2.2-4.2 [facility] Urea nitrogen/Creatinine [Mass ratio] 14.5 mg/mg 10-20 [facility] Laboratory - Hematology and Cell countsOrdered By: Basilio Flores on 04-10-2022 Erythrocyte distribution width (RBC) [Entitic vol] 42.4 fL 35.1-43.9 [facility] Erythrocyte distribution width (RBC) [Ratio] 12.6 % 11.6-14.6 [facility] MCH (RBC) [Entitic mass] 29.3 [facility] [Mass/Vol]Or dered By: Basilio Flores on 04-10-2022 MCHC (RBC) [Mass/Vol] 32.1 g/dL 32-36 [facility] No Panel InformationOrdered By: Basilio Flores on 04-10-2022 Estimated GFR (MDRD) Amer 78 mL/min >60 [facility] Comment on above: GFR Calc Estimated GFR (MDRD) Non-Af Amer 64 mL/min >60 [facility] Comment on above: Non- GFR Calc Platelets bldOrdered By: August Flores on 04-10-2022 Platelets (Bld) [#/Vol] 216 10*3/uL 150-450 [facility] Serum or plasma albumin serge urement (mass/volume)Ordered By: Basilio Flores on 04-10-2022 Albumin [Mass/Vol] 3.3 g/dL 3.2-5.0 [facility] Serum or plasma albumin/glob ulin mass ratioOrdered By: Basilio Flores on 04-10-2022 Albumin/Globulin [Mass ratio] 0.8 {ratio} 0.9-2.4 [facility] Serum or plasma calcium serge urement (mass/volume)Ordered By: Basilio Flores on 04-10-2022 Calcium [Mass/Vol] 9.1 mg/dL 8.5-10.1 [facility] Serum or plasma creatinine m easurement (mass/volume)Ordered By: Basilio Flores on 04-10-2022 Creatinine [Mass/Vol] 0.90 mg/dL 0.55-1.02 [facility] Comment on above: The validity of the calculated GFR & GFRAA in patients over 70 years has not been determined. Clinical correlation is essential. Serum or plasma urea nitroge n measurement (mass/volume)Ordered By: Basilio Flores on 04-10-2022 Urea nitrogen [Mass/Vol] 13 mg/dL 7-18 [facility] Thin prep Papanicolaou smear with manual screeningOrdered By: Basilio Flores on 04-10-2022 Thin prep Papanicolaou smear with manual screening 22 U/L 15-37 [facility] Thin prep Papanicolaou smear with manual screening 2 5-15 [facility] No Panel InformationOrdered By: Basilio Flores on 03-06-2022 Vitamin D 25-Hydroxy 57.1 ng/mL [facility] Comment on above: Vitamin D 25(OH) Sta tus Range Deficiency <20 ng/mL (50nmol/L) Insufficiency 20 - 30 ng/mL (50 - 75 nmol/L) Sufficiency 30 - 100 ng/mL (75 - 250 nmol/L) Toxicity >100 ng/mL (>250 nmol/L) Whole blood hemoglobin A1c/t otal hemoglobin ratio (mass fraction)Ordered By: Basilio Flores on 03-06-2022 HbA1c (Bld) [Mass fraction] 7.4 % 3.8-5.6 [facility] Comment on above: Normal < 5.7 % Predi abetic 5.7 - 6.4 % Diabetic >or= 6.5 % Please note range changes. Basophil percentageon 2021 Bilirubin [Mass/Vol] 0.90 mg/dL 0.20-1.00 [facility] Work Phone: Comment on above: For patients on eltr ombopag therapy, use of Dimension [place] TBIL is not recommended. Chloride [Moles/Vol] 102 mmol/L 98-107 [facility] Work Phone: Glucose [Mass/Vol] 198 mg/dL 74-106 [facility] Work Phone: Comment on above: Fasting Glucose resu lt greater than or equal to 126 mg/dL suggests DIABETES MELLITUS per A.D.A. criteria. Potassium [Moles/Vol] 4.3 mmol/L 3.5-5.1 [facility] Work Phone: Protein [Mass/Vol] 7.3 g/dL 6.4-8.2 [facility] Work Phone: Sodium [Moles/Vol] 140 mmol/L 136-145 [facility] Work Phone: WBC (Bld) [#/Vol] 5.8 10*3/uL 4.4-11.0 [facility] Work Phone: Blood erythrocytes count (nu mber/volume)on 02-06-2022 RBC (Bld) [#/Vol] 4.46 10*6/uL 4.2-5.4 [facility] Work Phone: Blood hemoglobin measurement (mass/volume)on 02-06-2022 Hemoglobin (Bld) [Mass/Vol] 13.1 g/dL 12.0-15.0 [facility] Work Phone: Blood platelet mean volumeon 02-06-2022 Platelet mean volume (Bld) [Entitic vol] 10.5 fL 6.2-12.0 [facility] Work Phone: Determination of erythrocyte mean corpuscular volume (MCV)on 02-06-2022 MCV (RBC) [Entitic vol] 93.3 fL 81-[address] [facility] Work Phone: Hematocrit Auto (Bld) [Volum e fraction]on 02-06-2022 Hematocrit (Bld) [Volume fraction] 41.6 % 37-47 [facility] Work Phone: Laboratory - Chemistry and C hemistry - challengeon 02-06-2022 ALP [Catalytic activity/Vol] 96 U/L 45-117 [facility] Work Phone: ALT [Catalytic activity/Vol] 22 U/L 13-56 [facility] Work Phone: CO2 [Moles/Vol] 32.0 mmol/L 21.0-32.0 [facility] Work Phone: Globulin (S) [Mass/Vol] 3.7 g/dL 2.2-4.[address] [facility] Work Phone: Urea nitrogen/Creatinine [Mass ratio] 20.2 mg/mg 10-20 [facility] Work Phone: Laboratory - Hematology and Cell countson 02-06-2022 Erythrocyte distribution width (RBC) [Entitic vol] 46.5 fL 35.1-43.9 [facility] Work Phone: Erythrocyte distribution width (RBC) [Ratio] 13.5 % 11.6-14.6 [facility] Work Phone: MCH (RBC) [Entitic mass] 29.4 pg 27.0-32.0 [facility] Work Phone: MCHC Auto (RBC) [Mass/Vol]on 02-06-2022 MCHC (RBC) [Mass/Vol] 31.5 g/dL 32-36 [facility] Work Phone: No Panel Informationon 02-06 Estimated GFR (MDRD) Amer 66 mL/min >60 [facility] Work Phone: Comment on above: GFR Calc Estimated GFR (MDRD) Non-Af Amer 54 mL/min >60 [facility] Work Phone: Comment on above: Non- GFR Calc Platelets bldon 02-06-2022 Platelets (Bld) [#/Vol] 176 10*3/uL 150-450 [facility] Work Phone: Serum or plasma albumin serge urement (mass/volume)on 02-06-2022 Albumin [Mass/Vol] 3.6 g/dL 3.2-5.0 [facility] Work Phone: Serum or plasma albumin/glob ulin mass ratioon 02-06-2022 Albumin/Globulin [Mass ratio] 1.0 {ratio} 0.9-2.4 [facility] Work Phone: Serum or plasma calcium serge urement (mass/volume)on 02-06-2022 Calcium [Mass/Vol] 9.5 mg/dL 8.5-10.1 [facility] Work Phone: Serum or plasma creatinine m easurement (mass/volume)on 02-06-2022 Creatinine [Mass/Vol] 1.04 mg/dL 0.55-1.02 [facility] Work Phone: Comment on above: The validity of the calculated GFR & GFRAA in patients over 70 years has not been determined. Clinical correlation is essential. Serum or plasma urea nitroge n measurement (mass/volume)on 02-06-2022 Urea nitrogen [Mass/Vol] 21 mg/dL 7-18 [facility] Work Phone: Thin prep Papanicolaou smear with manual screeningon 02-06-2022 Thin prep Papanicolaou smear with manual screening 20 U/L 15-37 [facility] Work Phone: Thin prep Papanicolaou smear with manual screening 6 5-15 [facility] Work Phone: Basophil percentageon 2021 Bilirubin [Mass/Vol] 0.50 mg/dL 0.20-1.00 [facility] Work Phone: Comment on above: For patients on eltr ombopag therapy, use of Dimension [place] TBIL is not recommended. Chloride [Moles/Vol] 106 mmol/L 98-107 [facility] Work Phone: Glucose [Mass/Vol] 149 mg/dL 74-106 [facility] Work Phone: Comment on above: Fasting Glucose resu lt greater than or equal to 126 mg/dL suggests DIABETES MELLITUS per A.D.A. criteria. Potassium [Moles/Vol] 3.6 mmol/L 3.5-5.1 [facility] Work Phone: Protein [Mass/Vol] 6.7 g/dL 6.4-8.2 [facility] Work Phone: Sodium [Moles/Vol] 142 mmol/L 136-145 [facility] Work Phone: WBC (Bld) [#/Vol] 6.0 10*3/uL 4.4-11.0 [facility] Work Phone: Blood erythrocytes count (nu mber/volume)on 12-05-2021 RBC (Bld) [#/Vol] 4.12 10*6/uL 4.2-5.4 [facility] Work Phone: Blood hemoglobin measurement (mass/volume)on 12-05-2021 Hemoglobin (Bld) [Mass/Vol] 11.9 g/dL 12.0-15.0 [facility] Work Phone: Blood platelet mean volumeon 12-05-2021 Platelet mean volume (Bld) [Entitic vol] 10.9 fL 6.2-12.0 [facility] Work Phone: Determination of erythrocyte mean corpuscular volume (MCV)on 12-05-2021 MCV (RBC) [Entitic vol] 92.5 fL 81-[address] [facility] Work Phone: Hematocrit Auto (Bld) [Volum e fraction]on 12-05-2021 Hematocrit (Bld) [Volume fraction] 38.1 % 37-47 [facility] Work Phone: Laboratory - Chemistry and C hemistry - challengeon 12-05-2021 ALP [Catalytic activity/Vol] 86 U/L 45-117 [facility] Work Phone: ALT [Catalytic activity/Vol] 17 U/L 13-56 [facility] Work Phone: CO2 [Moles/Vol] 34.0 mmol/L 21.0-32.0 [facility] Work Phone: Globulin (S) [Mass/Vol] 3.6 g/dL 2.2-4.[address] [facility] Work Phone: Urea nitrogen/Creatinine [Mass ratio] 14.5 mg/mg 10-20 [facility] Work Phone: Laboratory - Hematology and Cell countson 12-05-2021 Erythrocyte distribution width (RBC) [Entitic vol] 45.8 fL 35.1-43.9 [facility] Work Phone: Erythrocyte distribution width (RBC) [Ratio] 13.4 % 11.6-14.6 [facility] Work Phone: MCH (RBC) [Entitic mass] 28.9 pg 27.0-32.0 [facility] Work Phone: MCHC Auto (RBC) [Mass/Vol]on 12-05-2021 MCHC (RBC) [Mass/Vol] 31.2 g/dL 32-36 [facility] Work Phone: No Panel Informationon 12-05 Estimated GFR (MDRD) Amer 78 mL/min >60 [facility] Work Phone: Comment on above: GFR Calc Estimated GFR (MDRD) Non-Af Amer 64 mL/min >60 [facility] Work Phone: Comment on above: Non- GFR Calc Vitamin D 25-Hydroxy 90.8 ng/mL [facility] Work Phone: Comment on above: Vitamin D 25(OH) Sta tus Range Deficiency <20 ng/mL (50nmol/L) Insufficiency 20 - 30 ng/mL (50 - 75 nmol/L) Sufficiency 30 - 100 ng/mL (75 - 250 nmol/L) Toxicity >100 ng/mL (>250 nmol/L) Platelets bldon 12-05-2021 Platelets (Bld) [#/Vol] 162 10*3/uL 150-450 [facility] Work Phone: Serum or plasma albumin serge urement (mass/volume)on 12-05-2021 Albumin [Mass/Vol] 3.1 g/dL 3.2-5.0 [facility] Work Phone: Serum or plasma albumin/glob ulin mass ratioon 12-05-2021 Albumin/Globulin [Mass ratio] 0.9 {ratio} 0.9-2.4 [facility] Work Phone: Serum or plasma calcium serge urement (mass/volume)on 12-05-2021 Calcium [Mass/Vol] 9.3 mg/dL 8.5-10.1 [facility] Work Phone: Serum or plasma creatinine m easurement (mass/volume)on 12-05-2021 Creatinine [Mass/Vol] 0.90 mg/dL 0.55-1.02 [facility] Work Phone: Comment on above: The validity of the calculated GFR & GFRAA in patients over 70 years has not been determined. Clinical correlation is essential. Serum or plasma urea nitroge n measurement (mass/volume)on 12-05-2021 Urea nitrogen [Mass/Vol] 13 mg/dL 7-18 [facility] Work Phone: Thin prep Papanicolaou smear with manual screeningon 12-05-2021 Thin prep Papanicolaou smear with manual screening 18 U/L 15-37 [facility] Work Phone: Thin prep Papanicolaou smear with manual screening 2 5-15 [facility] Work Phone: Whole blood hemoglobin A1c/t otal hemoglobin ratio (mass fraction)on 12-05-2021 HbA1c (Bld) [Mass fraction] 7.4 % 3.8-5.6 [facility] Work Phone: Comment on above: Normal < 5.7 % Predi abetic 5.7 - 6.4 % Diabetic >or= 6.5 % Please note range changes. Whole blood hemoglobin A1c/t otal hemoglobin ratio (mass fraction)on 11-14-2021 HbA1c (Bld) [Mass fraction] 8.5 % 3.8-5.6 [facility] Work Phone: Comment on above: Normal < 5.7 % Predi abetic 5.7 - 6.4 % Diabetic >or= 6.5 % Please note range changes. Whole blood hemoglobin A1c/t otal hemoglobin ratio (mass fraction)on 10-17-2021 HbA1c (Bld) [Mass fraction] 7.7 % 3.8-5.6 [facility] Work Phone: Comment on above: Normal < 5.7 % Predi abetic 5.7 - 6.4 % Diabetic >or= 6.5 % Please note range changes. Basophil percentageon 2021 Bilirubin [Mass/Vol] 0.40 mg/dL 0.20-1.00 [facility] Work Phone: Comment on above: For patients on eltr ombopag therapy, use of Dimension [place] TBIL is not recommended. Chloride [Moles/Vol] 105 mmol/L 98-107 [facility] Work Phone: Cholesterol [Mass/Vol] 130 mg/dL <200 [facility] Work Phone: Comment on above: <200 mg/dL Desirable 200-240 mg/dL Borderline >240 mg/dL High Risk Glucose [Mass/Vol] 127 mg/dL 74-106 [facility] Work Phone: Comment on above: Fasting Glucose resu lt greater than or equal to 126 mg/dL suggests DIABETES MELLITUS per A.D.A. criteria. Potassium [Moles/Vol] 3.7 mmol/L 3.5-5.1 [facility] Work Phone: Protein [Mass/Vol] 6.4 g/dL 6.4-8.2 [facility] Work Phone: Sodium [Moles/Vol] 145 mmol/L 136-145 [facility] Work Phone: Triglyceride [Mass/Vol] 77 mg/dL <199 [facility] Work Phone: Comment on above: The drugs N-Acetylcy steine and Metamizole may falsely depress this assay.Serum Triglycerides Reference Interval Normal <150 mg/dL Borderline high 150 - 199 mg/dL High 200 - 499 mg/dL Very High > or = 500 mg/dL WBC (Bld) [#/Vol] 5.7 10*3/uL 4.4-11.0 [facility] Work Phone: Blood erythrocytes count (nu mber/volume)on 10-05-2021 RBC (Bld) [#/Vol] 4.01 10*6/uL 4.2-5.4 [facility] Work Phone: Blood hemoglobin measurement (mass/volume)on 10-05-2021 Hemoglobin (Bld) [Mass/Vol] 11.5 g/dL 12.0-15.0 [facility] Work Phone: Blood platelet mean volumeon 10-05-2021 Platelet mean volume (Bld) [Entitic vol] 11.3 fL 6.2-12.0 [facility] Work Phone: Determination of erythrocyte mean corpuscular volume (MCV)on 10-05-2021 MCV (RBC) [Entitic vol] 93.3 fL 81-[address] [facility] Work Phone: Hematocrit Auto (Bld) [Volum e fraction]on 10-05-2021 Hematocrit (Bld) [Volume fraction] 37.4 % 37-47 [facility] Work Phone: Laboratory - Chemistry and C hemistry - challengeon 10-05-2021 ALP [Catalytic activity/Vol] 80 U/L 45-117 [facility] Work Phone: ALT [Catalytic activity/Vol] 16 U/L 13-56 [facility] Work Phone: CO2 [Moles/Vol] 29.0 mmol/L 21.0-32.0 [facility] Work Phone: Globulin (S) [Mass/Vol] 3.1 g/dL 2.2-4.[address] [facility] Work Phone: Urea nitrogen/Creatinine [Mass ratio] 17.1 mg/mg 10-20 [facility] Work Phone: Laboratory - Hematology and Cell countson 10-05-2021 Erythrocyte distribution width (RBC) [Entitic vol] 44.9 fL 35.1-43.9 [facility] Work Phone: Erythrocyte distribution width (RBC) [Ratio] 13.2 % 11.6-14.6 [facility] Work Phone: MCH (RBC) [Entitic mass] 28.7 pg 27.0-32.0 [facility] Work Phone: MCHC Auto (RBC) [Mass/Vol]on 10-05-2021 MCHC (RBC) [Mass/Vol] 30.7 g/dL 32-36 [facility] Work Phone: No Panel Informationon 10-05 Estimated GFR (MDRD) Amer 65 mL/min >60 [facility] Work Phone: Comment on above: GFR Calc Estimated GFR (MDRD) Non-Af Amer 54 mL/min >60 [facility] Work Phone: Comment on above: Non- GFR Calc Platelets bldon 10-05-2021 Platelets (Bld) [#/Vol] 164 10*3/uL 150-450 [facility] Work Phone: Serum or plasma albumin serge urement (mass/volume)on 10-05-2021 Albumin [Mass/Vol] 3.3 g/dL 3.2-5.0 [facility] Work Phone: Serum or plasma albumin/glob ulin mass ratioon 10-05-2021 Albumin/Globulin [Mass ratio] 1.1 {ratio} 0.9-2.4 [facility] Work Phone: Serum or plasma calcium serge urement (mass/volume)on 10-05-2021 Calcium [Mass/Vol] 8.8 mg/dL 8.5-10.1 [facility] Work Phone: Serum or plasma cholesterol in HDL measurement (mass/volume)on 10-05-2021 Cholesterol in HDL [Mass/Vol] 47 mg/dL >40 [facility] Work Phone: Comment on above: The drugs N-Acetylcy steine and Metamizole may falsely depress this assay. Reference Range HDL <40 mg/dL Low HDL Cholesterol HDL >or= 60 mg/dL High HDL Cholesterol Serum or plasma cholesterol in VLDL measurement (mass/volume)on 10-05-2021 Cholesterol in VLDL [Mass/Vol] 15 mg/dL 5-40 [facility] Work Phone: Serum or plasma creatinine m easurement (mass/volume)on 10-05-2021 Creatinine [Mass/Vol] 1.05 mg/dL 0.55-1.02 [facility] Work Phone: Comment on above: The validity of the calculated GFR & GFRAA in patients over 70 years has not been determined. Clinical correlation is essential. Serum or plasma low density lipoprotein (LDL) cholesterol measurement (mass/volume)on 10-05-2021 Cholesterol in LDL [Mass/Vol] 68 mg/dL 0-130 [facility] Work Phone: Serum or plasma urea nitroge n measurement (mass/volume)on 10-05-2021 Urea nitrogen [Mass/Vol] 18 mg/dL 7-18 [facility] Work Phone: Thin prep Papanicolaou smear with manual screeningon 10-05-2021 Thin prep Papanicolaou smear with manual screening 18 U/L 15-37 [facility] Work Phone: Thin prep Papanicolaou smear with manual screening 11 5-15 [facility] Work Phone: No Panel Informationon 09-05 Vitamin D 25-Hydroxy 44.4 ng/mL [facility] Work Phone: Comment on above: Vitamin D 25(OH) Sta tus Range Deficiency <20 ng/mL (50nmol/L) Insufficiency 20 - 30 ng/mL (50 - 75 nmol/L) Sufficiency 30 - 100 ng/mL (75 - 250 nmol/L) Toxicity >100 ng/mL (>250 nmol/L) Whole blood hemoglobin A1c/t otal hemoglobin ratio (mass fraction)on 09-05-2021 HbA1c (Bld) [Mass fraction] 8.3 % 3.8-5.6 [facility] Work Phone: Comment on above: Normal < 5.7 % Predi abetic 5.7 - 6.4 % Diabetic >or= 6.5 % Please note range changes. Basophil percentageon 2021 Bilirubin [Mass/Vol] 0.40 mg/dL 0.20-1.00 [facility] Work Phone: Comment on above: For patients on eltr ombopag therapy, use of Dimension [place] TBIL is not recommended. Chloride [Moles/Vol] 102 mmol/L 98-107 [facility] Work Phone: Glucose [Mass/Vol] 358 mg/dL 74-106 [facility] Work Phone: Comment on above: Glucose result great er than or equal to 200 mg/dLsuggests DIABETES MELLITUS per A.D.A. criteria. Potassium [Moles/Vol] 3.3 mmol/L 3.5-5.1 [facility] Work Phone: Protein [Mass/Vol] 6.8 g/dL 6.4-8.2 [facility] Work Phone: Sodium [Moles/Vol] 139 mmol/L 136-145 [facility] Work Phone: WBC (Bld) [#/Vol] 5.6 10*3/uL 4.4-11.0 [facility] Work Phone: Blood erythrocytes count (nu mber/volume)on 08-08-2021 RBC (Bld) [#/Vol] 3.99 10*6/uL 4.2-5.4 [facility] Work Phone: Blood hemoglobin measurement (mass/volume)on 08-08-2021 Hemoglobin (Bld) [Mass/Vol] 11.5 g/dL 12.0-15.0 [facility] Work Phone: Blood platelet mean volumeon 08-08-2021 Platelet mean volume (Bld) [Entitic vol] 11.0 fL 6.2-12.0 [facility] Work Phone: Determination of erythrocyte mean corpuscular volume (MCV)on 08-08-2021 MCV (RBC) [Entitic vol] 91.7 fL 81-[address] [facility] Work Phone: Hematocrit Auto (Bld) [Volum e fraction]on 08-08-2021 Hematocrit (Bld) [Volume fraction] 36.6 % 37-47 [facility] Work Phone: Laboratory - Chemistry and C hemistry - challengeon 08-08-2021 ALP [Catalytic activity/Vol] 85 U/L 45-117 [facility] Work Phone: ALT [Catalytic activity/Vol] 17 U/L 13-56 [facility] Work Phone: CO2 [Moles/Vol] 33.0 mmol/L 21.0-32.0 [facility] Work Phone: Globulin (S) [Mass/Vol] 3.8 g/dL 2.2-4.[address] [facility] Work Phone: Urea nitrogen/Creatinine [Mass ratio] 12.7 mg/mg 10-20 [facility] Work Phone: Laboratory - Hematology and Cell countson 08-08-2021 Erythrocyte distribution width (RBC) [Entitic vol] 43.0 fL 35.1-43.9 [facility] Work Phone: Erythrocyte distribution width (RBC) [Ratio] 12.7 % 11.6-14.6 [facility] Work Phone: MCH (RBC) [Entitic mass] 28.8 pg 27.0-32.0 [facility] Work Phone: MCHC Auto (RBC) [Mass/Vol]on 08-08-2021 MCHC (RBC) [Mass/Vol] 31.4 g/dL 32-36 [facility] Work Phone: No Panel Informationon 08-08 Estimated GFR (MDRD) Amer 67 mL/min >60 [facility] Work Phone: Comment on above: GFR Calc Estimated GFR (MDRD) Non-Af Amer 56 mL/min >60 [facility] Work Phone: Comment on above: Non- GFR Calc Platelets bldon 08-08-2021 Platelets (Bld) [#/Vol] 155 10*3/uL 150-450 [facility] Work Phone: Serum or plasma albumin serge urement (mass/volume)on 08-08-2021 Albumin [Mass/Vol] 3.0 g/dL 3.2-5.0 [facility] Work Phone: Serum or plasma albumin/glob ulin mass ratioon 08-08-2021 Albumin/Globulin [Mass ratio] 0.8 {ratio} 0.9-2.4 [facility] Work Phone: Serum or plasma calcium serge urement (mass/volume)on 08-08-2021 Calcium [Mass/Vol] 9.3 mg/dL 8.5-10.1 [facility] Work Phone: Serum or plasma creatinine m easurement (mass/volume)on 08-08-2021 Creatinine [Mass/Vol] 1.02 mg/dL 0.55-1.02 [facility] Work Phone: Comment on above: The validity of the calculated GFR & GFRAA in patients over 70 years has not been determined. Clinical correlation is essential. Serum or plasma urea nitroge n measurement (mass/volume)on 08-08-2021 Urea nitrogen [Mass/Vol] 13 mg/dL 7-18 [facility] Work Phone: Thin prep Papanicolaou smear with manual screeningon 08-08-2021 Thin prep Papanicolaou smear with manual screening 15 U/L 15-37 [facility] Work Phone: Thin prep Papanicolaou smear with manual screening 4 5-15 [facility] Work Phone: Basophil percentageon 2021 Basophil percentage 3.6 mg/dL 2.5-4.9 [facility] Work Phone: Chloride [Moles/Vol] 99 mmol/L 98-107 [facility] Work Phone: Glucose [Mass/Vol] 311 mg/dL 74-106 [facility] Work Phone: Comment on above: Glucose result great er than or equal to 200 mg/dLsuggests DIABETES MELLITUS per A.D.A. criteria. Potassium [Moles/Vol] 3.7 mmol/L 3.5-5.1 [facility] Work Phone: Sodium [Moles/Vol] 139 mmol/L 136-145 [facility] Work Phone: WBC (Bld) [#/Vol] 6.1 10*3/uL 4.4-11.0 [facility] Work Phone: Blood erythrocytes count (nu mber/volume)on 07-12-2021 RBC (Bld) [#/Vol] 4.40 10*6/uL 4.2-5.4 [facility] Work Phone: Blood hemoglobin measurement (mass/volume)on 07-12-2021 Hemoglobin (Bld) [Mass/Vol] 12.5 g/dL 12.0-15.0 [facility] Work Phone: Blood platelet mean volumeon 07-12-2021 Platelet mean volume (Bld) [Entitic vol] 11.0 fL 6.2-12.0 [facility] Work Phone: Determination of erythrocyte mean corpuscular volume (MCV)on 07-12-2021 MCV (RBC) [Entitic vol] 90.7 fL 81-[address] [facility] Work Phone: Hematocrit Auto (Bld) [Volum e fraction]on 07-12-2021 Hematocrit (Bld) [Volume fraction] 39.9 % 37-47 [facility] Work Phone: Laboratory - Chemistry and C hemistry - challengeon 07-12-2021 CO2 [Moles/Vol] 34.0 mmol/L 21.0-32.0 [facility] Work Phone: Urea nitrogen/Creatinine [Mass ratio] 14.2 mg/mg 10-20 [facility] Work Phone: Laboratory - Hematology and Cell countson 07-12-2021 Erythrocyte distribution width (RBC) [Entitic vol] 42.3 fL 35.1-43.9 [facility] Work Phone: Erythrocyte distribution width (RBC) [Ratio] 12.8 % 11.6-14.6 [facility] Work Phone: MCH (RBC) [Entitic mass] 28.4 pg 27.0-32.0 [facility] Work Phone: MCHC Auto (RBC) [Mass/Vol]on 07-12-2021 MCHC (RBC) [Mass/Vol] 31.3 g/dL 32-36 [facility] Work [facility]: No Panel Informationon 07-12 Estimated GFR (MDRD) Amer 64 mL/min >60 [facility] Work Phone: Comment on above: GFR Calc Estimated GFR (MDRD) Non-Af Amer 53 mL/min >60 [facility] Work Phone: Comment on above: Non- GFR Calc Parathyroid Hormone (Intact) 38.0 pg/mL 18.4-80.1 [facility] Work Phone: Vitamin D 25-Hydroxy 10.0 ng/mL [facility] Work Phone: Comment on above: Vitamin D 25(OH) Sta tus Range Deficiency <20 ng/mL (50nmol/L) Insufficiency 20 - 30 ng/mL (50 - 75 nmol/L) Sufficiency 30 - 100 ng/mL (75 - 250 nmol/L) Toxicity >100 ng/mL (>250 nmol/L) Platelets bldon 07-12-2021 Platelets (Bld) [#/Vol] 188 10*3/uL 150-450 [facility] Work Phone: Serum or plasma albumin serge urement (mass/volume)on 07-12-2021 Albumin [Mass/Vol] 3.2 g/dL 3.2-5.0 [facility] Work Phone: Serum or plasma calcium serge urement (mass/volume)on 07-12-2021 Calcium [Mass/Vol] 9.8 mg/dL 8.5-10.1 [facility] Work Phone: Serum or plasma creatinine m easurement (mass/volume)on 07-12-2021 Creatinine [Mass/Vol] 1.06 mg/dL 0.55-1.02 [facility] Work Phone: Comment on above: The validity of the calculated GFR & GFRAA in patients over 70 years has not been determined. Clinical correlation is essential. Serum or plasma urea nitroge n measurement (mass/volume)on 07-12-2021 Urea nitrogen [Mass/Vol] 15 mg/dL 7-18 [facility] Work Phone: Clinical Summary: HMSPatient IDon 03-16-2019 OOP Camryn [facility] Work Phone: Office Visit: New - visi t with practice, Rm: PT2on 03-16-2019 NEGATED: Highlighted rowMRI (magnetic resonance imaging) history of the cervical spine on 11/24/2018 at [facility] Work Phone: NEGATED: Highlighted rowTobacco smoking status NHIS Tobacco smoking status NHIS [facility] Work Phone: Vital Signs Date Time Vital Sign Value Performing Clinician Facility 08-24-2024 09:43-0400 Body temperature 98.9 [degF] Dr. Basilio Flores MD Work Phone: 5(262)858-533631 [place] [address] 08-24-2024 09:43-0400 Diastolic blood pressure 69 mm[Hg] Dr. Basilio Flores MD Work Phone: 8(917)480-349031 [place] [address] 08-24-2024 09:43-0400 Heart rate 72 /min Dr. Basilio Flores MD Work Phone: 1(390)820-644231 [place] [address] 08-24-2024 09:43-0400 Respiratory rate 16 /min Dr. Basilio Flores MD Work Phone: 7(904)853-975031 [place] [address] 08-24-2024 09:43-0400 SaO2% (BldA) [Mass fraction] 98 % Dr. Basilio Flores MD Work Phone: 5(706)942-258131 [place] [address] 08-24-2024 09:43-0400 Systolic blood pressure 149 mm[Hg] Dr. Basilio Flores MD Work Phone: 2(386)316-657131 [place] [address] 08-24-2024 08:47-0400 Body height 157.[address] Basilio Flores MD Work Phone: [facility] 08-24-2024 08:47-0400 Body mass index (BMI) [Ratio] 22.1 kg/m2 Dr. Basilio Flores MD Work Phone: 6(565)829-688831 [place] [address] 08-24-2024 08:47-0400 Body weight [address] Basilio Flores MD Work Phone: 0(957)773-587737 [place] [address] 06-08-2023 09:40-0500 Diastolic blood pressure 77 mm[Hg] Dr. Basilio Flores Work Phone: 3(929)317-338037 [place] [address] 06-08-2023 09:40-0500 Heart rate 82 /min Dr. Basilio Flores Work Phone: 5(377)322-675837 [place] [address] 06-08-2023 09:40-0500 Respiratory rate 16 /min Dr. Basilio Flores Work Phone: 5(231)763-201337 [place] [address] 06-08-2023 09:40-0500 SaO2% (BldA) [Mass fraction] 98 % Dr. Basilio Flores Work Phone: 7(400)625-394537 [place] [address] 06-08-2023 09:40-0500 Systolic blood pressure 135 mm[Hg] Dr. Basilio Flores Work Phone: 8(565)804-046437 [place] [address] 06-08-2023 08:04-0500 Body height 157.[address] Basilio Flores Work Phone: 1(254)090-889637 [place] [address] 06-08-2023 08:04-0500 Body mass index (BMI) [Ratio] 25.7 kg/m2 Dr. Basilio Flores Work Phone: 7(401)412-959137 [place] [address] 06-08-2023 08:04-0500 Body temperature 97.9 [degF] Dr. Basilio Flores Work Phone: 0(128)438-264537 [place] [address] 06-08-2023 08:04-0500 Body weight 63.[address] Basilio Flores Work Phone: 3(828)813-650937 [place] [address] 06-05-2023 08:33-0500 Diastolic blood pressure 67 mm[Hg] Dr. Basilio Flores Work Phone: 3(101)780-292737 [place] [address] 06-05-2023 08:33-0500 Heart rate 81 /min Dr. Basilio Flores Work Phone: 7(456)074-598337 [place] [address] 06-05-2023 08:33-0500 Respiratory rate 16 /min Dr. Basilio Flores Work Phone: 9(830)199-995537 [place] [address] 06-05-2023 08:33-0500 SaO2% (BldA) [Mass fraction] 93 % Dr. Basilio Flores Work Phone: 5(175)180-263231 [place] [address] 06-05-2023 08:33-0500 Systolic blood pressure 142 mm[Hg] Dr. Basilio Flores Work Phone: 0(107)[phone] [place] [address] 06-05-2023 03:42-0500 Body height 162.[address] Basilio Flores Work Phone: [phone] [place] [address] 06-05-2023 03:42-0500 Body mass index (BMI) [Ratio] 23.9 kg/m2 Dr. Basilio Flores Work Phone: [phone] [address] 06-05-2023 03:42-0500 Body temperature 97.6 [degF] Dr. Basilio Flores Work Phone: [phone] [place] [address] 06-05-2023 03:42-0500 Body weight 63.[address] Basilio Flores Work Phone: [phone] [place] [address] NEGATED: Highlighted [id number] 14:06-0500 BMI (Body Mass Index) 44.85 kg/m2 Arcenio Moreira AT [facility] Work Phone: NEGATED: Highlighted [id number] 14:06-0500 Body weight 102.06 kg Arcenio Moreira AT [facility] Work Phone: NEGATED: Highlighted [id number] 14:06-0500 Body weight 102 kg Arcenio Moreira AT [facility] Work Phone: NEGATED: Highlighted [id number] 14:06-0500 BP Diastolic 68 mm[Hg] Arcenio Moreira AT [facility] Work Phone: NEGATED: Highlighted [id number] 14:06-0500 BP Systolic 124 mm[Hg] Arcenio Moreira AT [facility] Work Phone: NEGATED: Highlighted [id number] 14:06-0500 Height 151.13 cm Arcenio Moreira AT [facility] Work Phone: NEGATED: Highlighted [id number] 14:06-0500 Height 151 cm Arcenio Moreira AT [facility] Work Phone: NEGATED: Highlighted [id number] 14:06-0500 Pulse (Heart Rate) 101 /min Arcenio Moreira AT [facility] Work Phone: Encounters Encounter Date Encounter Type Care Provider Facility Start: 10-06-2024 ambulatory Donato COLVIN Fa cility:[facility] Start: 10-06-2024 Registered Referred Donato Sepulveda MD [facility] Start: 09-08-2024 End: 09-08-[address] Basilio Flores MD Work Phone: [facility] Work Phone: Start: 09-08-2024 End: 09-08-2024 [facility]: 09-08-[facility]24 [facility] Start: 09-08-2024 End: 09-08-2024 ambulatory Donato COLVIN Facility:[facility] Start: 08-25-2024 End: 08-25-[address] Basilio Flores MD Work Phone: [facility] Work Phone: Start: 08-25-2024 End: 08-25-2024 [facility] Start: 08-24-2024 End: 08-24-2024 Admission to same day surgery center Dr. Armando Rich [facility] Start: 08-24-2024 End: 08-25-[address] Basilio Flores MD Work Phone: [facility] Work Phone: Start: 08-17-2024 End: 08-17-2024 ambulatory Debora Schneider NP Facility:[facility] Start: 08-17-2024 End: 08-17-2024 Patient encounter procedure [facility] Work Phone: Start: 07-15-2024 End: 07-15-[address] Basilio Flores MD Work Phone: [facility] Work Phone: Start: 07-15-2024 End: 07-15-2024 [facility] Start: 07-14-2024 End: 07-14-[address] Donato Sepulveda MD -[facility] Work Phone: Start: 07-14-2024 End: 07-15-[address] Basilio Flores MD Work Phone: [facility] Work Phone: Start: 07-14-2024 End: 07-14-2024 [facility] Start: 07-14-2024 Registered Referred Dnoato Sepulveda MD [facility] Start: 07-14-2024 End: 07-14-2024 ambulatory Basilio Flores Facility:[facility] Start: 06-26-2024 End: 06-26-2024 ambulatory Basilio Flores Facility:[facility] Start: 06-26-2024 End: 06-26-2024 Patient encounter procedure Debora DOW -[facility] Work Phone: Start: 06-15-2024 ambulatory Donato COLVIN Fa cility:[facility] Start: 06-15-2024 Registered Referred Donato Sepulveda MD [facility] Start: 06-09-2024 ambulatory Donato Sepulveda OLS Fa cility:[facility] Start: 06-09-2024 [facility] Start: 06-02-2024 End: 06-02-2024 [facility] Start: 06-01-2024 End: 06-02-2024 ambulatory Donato COLVIN Facility:[facility] Start: 06-01-2024 End: 06-01-2024 Patient encounter procedure Debora Schneider CALCULATION REVIEWER-C -[facility] Work Phone: Start: 05-19-2024 End: 05-19-2024 ambulatory Basilio Flores Facility:[facility] Start: 05-19-2024 End: 05-19-[address] Donato Sepulveda MD -[facility] Work Phone: Start: 04-21-2024 ambulatory Donato COLVIN Fa cility:[facility] Start: 04-21-2024 Registered Referred Donato Sepulveda MD [facility] Start: 04-07-2024 End: 04-07-2024 ambulatory Basilio Flores Facility:[facility] Start: 04-07-2024 End: 04-07-2024 ambulatory Livierstumarcela COLVIN Facility:[facility] Start: 03-17-2024 End: 03-17-2024 ambulatory Basilio Flores Facility:[facility] Start: 03-10-2024 End: 03-10-2024 ambulatory Donato Harjitrjruthann COLVIN Facility:[facility] Start: 02-06-2024 End: 02-06-2024 ambulatory Debora Schneider CALCULATION REVIEWER Facility:[facility] Start: 02-04-2024 End: 02-04-2024 ambulatory Donato Martinezruthann COLVIN Facility:[facility] Start: 01-21-2024 End: 01-21-2024 ambulatory Basilio Flores Facility:[facility] Start: 01-14-2024 ambulatory Donato Martineze OLS Fa cility:[facility] Start: 01-09-2024 End: 01-09-2024 ambulatory Debora Schneider CALCULATION REVIEWER Facility:[facility] Start: 12-30-2023 End: 12-30-2023 ambulatory Debora Schneider CALCULATION REVIEWER Facility:[facility] Start: 12-10-2023 End: 12-10-2023 ambulatory Basilio Flores Facility:[facility] Start: 11-19-2023 End: 11-19-2023 ambulatory Basilio Flores Facility:[facility] Start: 11-01-2023 End: 11-01-2023 ambulatory Basilio Flores Facility:[facility] Start: 08-06-2023 End: 08-06-[address] Basilio Flores Work Phone: [facility] Work Phone: Start: 08-06-2023 End: 08-06-[address] Basilio Flores Work Phone: [facility] Start: 06-11-2023 End: 06-11-[address] Basilio Flores Work Phone: [facility] Work Phone: Start: 06-11-2023 End: 06-11-[address] Basilio Flores Work Phone: [facility] Start: 06-08-2023 End: 06-08-2023 Emergency department patient visit Dr. Basilio Flores Work Phone: [facility] Work Phone: Start: 06-05-2023 End: 06-05-[address] Basilio Flores Work Phone: [facility] Work Phone: Start: 06-05-2023 End: 06-05-2023 Emergency department patient visit Dr. Basilio Flores Work Phone: [facility] Work Phone: Start: 05-28-2023 End: 05-28-[address] Basilio Flores Work Phone: [facility] Work Phone: Start: 05-15-2023 End: 05-15-[address] Basilio Flores Work Phone: [facility] Work Phone: Start: 04-24-2023 End: 04-24-[address] Basilio Flores Work Phone: [facility] Work Phone: Start: 04-23-2023 End: 04-23-[address] Basilio Flores Work Phone: [facility] Work Phone: Start: 04-23-2023 End: 04-23-[address] Basilio Flores Work Phone: [facility] Start: 04-23-[address] Basilio avendano Work Phone: [facility] Start: 04-19-2023 End: 04-19-[address] Basilio Flores Work Phone: [facility] Work Phone: Start: 04-19-2023 End: 04-19-[address] Basilio Flores Work Phone: [facility] Start: 04-19-[address] Basilio avendano Work Phone: [facility] Start: 04-09-2023 End: 04-09-[address] Basilio Flores Work Phone: [facility] Work Phone: Start: 04-09-2023 End: 04-09-[address] Basilio Flores Work Phone: [facility] Start: 03-26-2023 End: 03-26-[address] Basilio Flores Work Phone: [facility] Work Phone: Start: 03-13-2023 End: 03-13-[address] Basilio Flores Work Phone: [facility] Work Phone: Start: 03-12-2023 End: 03-12-[address] Basilio Flores Work Phone: [facility] Start: 03-07-2023 End: 03-07-[address] Basilio Flores Work Phone: [facility] Work Phone: Start: 02-05-2023 End: 02-05-[address] Basilio Flores Work Phone: [facility] Start: 02-04-2023 End: 02-04-[address] Basilio Flores Work Phone: [facility] Work Phone: Start: 01-30-2023 End: 01-30-[address] Basilio Flores Work Phone: [facility] Work Phone: Start: 01-22-2023 End: 01-22-[address] Basilio Flores Work Phone: [facility] Work Phone: Start: 01-17-2023 End: 01-17-[address] Basilio Flores Work Phone: [facility] Work Phone: Start: 01-01-2023 End: 01-01-[address] Basilio Flores Work Phone: [facility] Work Phone: Start: 12-07-2022 End: 12-07-[address] Basilio Flores Work Phone: [facility] Work Phone: Start: 12-07-2022 End: 12-07-[address] Basilio Flores Work Phone: [facility] Start: 12-04-2022 End: 12-04-[address] Basilio Flores Work Phone: [facility] Work Phone: Start: 12-04-2022 End: 12-04-[address] Basilio Flores Work Phone: [facility] Start: 12-04-[address] Basilio avendano Work Phone: [facility] Start: 11-21-2022 End: 11-21-[address] Basilio Flores Work Phone: [facility] Work Phone: Start: 11-21-2022 End: 11-21-[address] Basilio Flores Work Phone: [facility] Start: 11-21-[address] Basilio avendano Work Phone: [facility] Start: 11-20-2022 End: 11-20-[address] Basilio Flores Work Phone: [facility] Work Phone: Start: 10-31-2022 End: 10-31-[address] Basilio Flores Work Phone: [facility] Work Phone: Start: 10-09-2022 End: 10-09-[address] Basilio Flores Work Phone: [facility] Work Phone: Start: 10-09-2022 End: 10-09-[address] Basilio Flores Work Phone: [facility] Start: 10-09-[address] Basilio avendano Work Phone: [facility] Start: 10-05-2022 End: 10-05-[address] Basilio Flores Work Phone: [facility] Work Phone: Start: 10-05-2022 End: 10-05-[address] Basilio Flores Work Phone: [facility] Start: 10-05-[address] Basilio avendano Work Phone: [facility] Start: 10-04-2022 End: 10-04-[address] Basilio Flores Work Phone: [facility] Start: 10-04-[address] Basilio avendano Work Phone: [facility] Start: 09-25-2022 End: 09-25-[address] Basilio Flores Work Phone: [facility] Work Phone: Start: 09-04-2022 End: 09-04-[address] Basilio Flores Work Phone: [facility] Work Phone: Start: 09-04-2022 End: 09-04-[address] Basilio Flores Work Phone: [facility] Start: 09-03-2022 End: 09-03-[address] Basilio Flores Work Phone: [facility] Work Phone: Start: 08-07-2022 End: 08-07-[address] Basilio Flores Work Phone: [facility] Work Phone: Start: 08-07-2022 End: 08-07-[address] Basilio Flores Work Phone: [facility] Start: 08-02-2022 End: 08-02-[address] Basilio Flores Work Phone: [facility] Start: 07-24-2022 End: 07-24-[address] Basilio Flores Work Phone: [facility] Start: 07-21-2022 End: 07-21-[address] Basilio Flores Work Phone: [facility] Start: 07-13-2022 End: 07-13-[address] Basilio Flores Work Phone: [facility] Start: 07-02-2022 End: 07-02-[address] Basilio Flores Work Phone: [phone] [place] [address] Start: 06-15-2022 End: 06-15-[address] Basilio Flores Work Phone: [phone] [place] [address] Start: 06-12-2022 End: 06-12-[address] Basilio Flores Work Phone: [phone] [place] [address] Work Phone: Start: 06-12-2022 End: 06-12-[address] Basilio Flores Work Phone: [phone] [place] [address] Start: 05-29-2022 End: 05-29-[address] Basilio Flores Work Phone: [facility] Start: 04-17-2022 End: 04-17-[address] Basilio Flores Work Phone: [facility] Start: 04-17-[address] Basilio avendano Work Phone: [facility] Start: 04-13-2022 End: 04-13-[address] Basilio Flores Work Phone: [phone] [place] [address] Start: 04-13-[address] Basilio avendano Work Phone: [facility] Start: 04-10-2022 End: 04-10-[address] Basilio Flores Work Phone: [facility] Work Phone: Start: 04-10-2022 End: 04-10-[address] Basilio Flores Work Phone: [facility] Start: 04-05-2022 End: 04-05-[address] Basilio Flores Work Phone: [facility] Start: 03-27-2022 End: 03-27-[address] Basilio Flores Work Phone: [facility] Start: 03-06-2022 End: 03-06-[address] Basilio Flores Work Phone: [facility] Work Phone: Start: 03-06-2022 End: 03-06-[address] Basilio Flores Work Phone: [facility] Start: 02-06-2022 End: 02-06-[address] Basilio Flores Work Phone: [facility] Work Phone: Start: 02-06-2022 End: 02-06-[address] Basilio Flores Work Phone: [facility] Start: 12-05-2021 End: 12-05-[address] Basilio Flores Work Phone: [facility] Start: 12-04-2021 End: 12-04-[address] Basilio Flores Work Phone: [facility] Start: 11-14-2021 End: 11-14-[address] Basilio Flores Work Phone: [facility] Start: 10-17-2021 End: 10-17-[address] Basilio Flores Work Phone: [facility] Start: 10-17-[address] Basilio avendano Work Phone: [facility] Start: 10-05-2021 End: 10-05-[address] Basilio Flores Work Phone: [facility] Start: 09-12-2021 End: 09-12-[address] Basilio Flores Work Phone: [facility] Start: 09-05-2021 End: 09-05-[address] Basilio Flores Work Phone: [facility] Start: 08-08-2021 End: 08-08-2021 Departed Referred [facility] Start: 08-08-2021 Registered Referred [facility] Start: 07-12-2021 End: 07-12-2021 Departed Referred [facility] Start: 03-16-2019 End: 03-16-2019 Patient encounter procedure Rachael Newman MD Work Phone: [facility] [...] branches w/img NJX AA&/STRD GNCLR NRV BRNCH [facility] Start: 08-24-2024 Fluoroscopic guidance [facility] Start: 08-24-2024 Patient discharge [facility] Start: 06-08-2023 [facility] Start: 06-05-2023 Simple repair f/e/e/n/l/m 2.5cm/< RPR F/E/E/N/L/M 2.5 CM/< [facility] Start: 06-05-2023 [facility] Start: 03-16-2019 End: 03-16-2019 Appointment Appointment [facility] [place] [facility] Work Phone: Patient Education [facility] Work Phone: Patient referral [facility] Work Phone: Immunizations Immunization Date Immunization Notes Care Provider Fa cility 06-05-2023 tetanus toxoid, redu lloyd diphtheria toxoid, and acellular pertussis vaccine, adsorbed Dr. Basilio Flores Work Phone: [facility] 02-23-2015 Influenza virus vaccine [facility] Payers Date Payer Category Payer Self-pay [id number] 2023 Medicare [id number] 2023 Unknown [id number] Unknown [id number] Unknown [id number] 2.16.8 40.1.828308.3.579.2.462 Unknown [id number] 2.16.8 40.1.220581.3.579.2.462 Unknown [id number] 2.16.8 40.1.734936.3.579.2.462 Unknown [id number] 2.16.8 40.1.796060.3.579.2.462 Unknown [id number] 2.16.8 40.1.684695.3.579.2.462 Unknown [id number] 2.16.8 40.1.991347.3.579.2.462 Unknown [id number] 2.16.8 40.1.825567.3.579.2.462 Unknown [id number] 2.16.8 40.1.042705.3.579.2.462 Unknown [id number] 2.16.8 40.1.343205.3.579.2.462 Unknown [id number] 2.16.8 40.1.646877.3.579.2.462 Unknown [id number] 2.16.8 40.1.148215.3.579.2.462 Unknown [id number] 2.16.8 40.1.825262.3.579.2.462 Unknown [id number] 2.16.8 40.1.324284.3.579.2.462 Unknown [id number] 2.16.8 40.1.391068.3.579.2.462 Unknown [id number] 2.16.8 40.1.727682.3.579.2.462 Unknown [id number] 2.16.8 40.1.945880.3.579.2.462 Unknown [id number] 2.16.8 40.1.193997.3.579.2.462 Unknown [id number] 2.16.8 40.1.846201.3.579.2.462 Unknown [id number] 2.16.8 40.1.556349.3.579.2.462 Unknown [id number] 2.16.8 40.1.232425.3.579.2.462 Unknown [id number] 2.16.8 40.1.323949.3.579.2.462 Unknown [id number] 2.16.8 40.1.427547.3.579.2.462 Unknown [id number] 2.16.8 40.1.790498.3.579.2.462 Unknown [id number] 2.16.8 40.1.153898.3.579.2.462 Unknown [id number] 2.16.8 40.1.830859.3.579.2.462 Unknown [id number] 2.16.8 40.1.526238.3.579.2.462 Unknown [id number] 2.16.8 40.1.742092.3.579.2.462 Unknown [id number] 2.16.8 40.1.077725.3.579.2.462 Social History Date Type Detail Facility Start: 12-16-2019 End: 06-08-2023 Tobacco smoking status DEIS Unknown if ever smoked [facility] Start: 12-16-2019 None [facility] Start: 12-16-2019 Skilled Nursing [facility] Start: 12-16-2019 Non-smoker [facility] Start: 1940 Sex Assigned At Female [facility] Start: 06-08-2023 Tobacco smoking status NHIS Never smoked tobacco (finding) [facility] Start: 08-06-2024 End: 08-24-2024 Sex Female (finding) [facility] NEGATED: Highlighted rowStart: 03-16-2019 End: 03-16-2019 Alcohol use Alcohol use [facility] Work Phone: NEGATED: Highlighted rowStart: 03-16-2019 End: 03-16-2019 Details of drug misuse behavior Details of drug misuse behavior [facility] Work Phone: NEGATED: Highlighted rowStart: 03-16-2019 End: 03-16-2019 Assertion Never smoker [facility] Work Phone: Goals Date Patient Goal Desired Activity /State Mental Status Date Assessment Result Facility 08-24-2024 Cognitive function Voice/Name [facility] Work Phone: Procedure note 08-24-2024 Note Date & Type Note Facility 08-24-2024 Procedure note [facility] Discharge summary 06-05-2023 Note Date & Type Note Facility 06-05-2023 Discharge summary Note Date/Time June 05, 2023 4:38am [facility] Medical Records Department [address] [place] [address] Emergency Department Summary 06/05/23 MR#: [id number] Acct: [id number] Name: MINDY CHINCHILLA Rep #:[id number] : 1940 82 From: Colleen Gomez PCP: Dr. Basilio Flores MD Status:REG ER Location: ED HPI History of Present Illness Chief Complaint: Head Injury Informant: patient Narrative Narrative: Patient is an 82-year-old female presenting from [facility] after she injured her head. Patient states [...] Is not on any blood thinners. Per retirement report patient was in the dining room at the table doing her puzzles which is her typical activity. Unclear if there was loss of consciousness. Was sent for evaluation of injuries. Tetanus Immunization: Unknown [facility] Medical History Anxiety and depression Arthritis Asthma [...] her baseline. No focal neurologic deficits appreciated [place] Coma Scale: document GCS findings Spontaneous Obeys [...] Family Additional record(s) reviewed:: Prior outpatient record (retirement paperwork ) Lab Data Attestation: I reviewed [...] Sl. Cloudy Urine pH 6.0 Ur Specific [place] 1.015 Urine Protein 15 H Urine Glucose [...] acute injury or abnormalities. The cause of hTuys frequent falls is not clear however at this time I do not think she requires admission to the hospital. Disposition Disposition: Home, Self Care What to do if you have Problems For any increased pain, shortness of breath, bleeding, nausea or vomiting, chestpain, or any unexpected problems, contact your Primary Care Provider. Call [facility] ([phone]) or report to the closest Emergency Room. Call 911 if necessary. 06/05/23 0754 <Electronically signed by Colleen Walker DO> Cosigner Signature (if applicable): CC: Dr. Basilio Flores MD ~ Signed [facility] Work Phone: Evaluation note Note Date & Type Note Facility Evaluation note No assessment information availa ble [facility] Work Phone: Hospital Discharge instructions Note Date [...] think she requires admission to the hospital. [facility] Work Phone: Reason for referral (narrative) Note Date & Type Note Facility Reason for referral (narrative) No reason for referral information available [facility] Work Phone: Chief Complaint Chief Complaint Description [...] Yes December 15 0 6:54pm Power of Pattern Molder Yes December 15 6:54pm Advance Directive Response Recorded Date/ Time Advance Directives Yes October 13 12:44pm Living Will Yes December 15 0 5:54pm Power of Pattern Molder Yes December 15 5:54pm Advance Directive Response Recorded Date/ Time Advance Directives Yes March 07, 2023 11:00am Living Will Yes March 07 11:00am Power of Pattern Molder Yes March 07, 2023 11:00am Advance Directive Response Recorded Date/ Time Name of Medical Power of Pattern Molder ABEBE AGUSTIN June 05, 2023 3:45am Advance Directives Yes March 07, 2023 11:00am Living Will Yes June 05 3:45am Power of Pattern Molder Yes June 05, 2023 3:45am Advance Directive Response Recorded Date/ Time Name of Medical Power of Pattern Molder ABEBE AGUSTIN June 05, 2023 3:45am Advance Directives Yes March 07, 2023 11:00am Living Will No June 08 8:10am Power of Pattern Molder No June 08, 2023 8:10am Advance Directive Response Recorded Date/ Time Name of Medical Power of Pattern Molder ABEBE AGUSTIN June 05, 2023 4:45am Advance Directives Yes March 07, 2023 12:00pm Living Will No June 08 9:10am Power of Pattern Molder No June 08, 2023 9:10am Advance Directive [...] Complaint and Reason for Visit Chief Complaint [facility] WOR K [facility] PATIENT Chief Complaint [facility] LAB WOR K [facility] PATIENT MONTHLY EXAM Chief Complaint [facility] LAB WOR K [facility] PATIENT MONTHLY EXAM LABWORK Chief Complaint [facility] PATIENT MONTHLY EXAM LABWORK Chief Complaint MONTHLY EXAM LABWORK CHCF LABWORK CHCF LABWORK MONTHLY EXAM CHCF LABWORK Chief Complaint [facility]CF LABWORK MONTHLY EXAM CHCF LABWORK CHCF LABWORK Chief Complaint MONTHLY EXAM CHCF LABWORK CHCF LABWORK CHCF LABWORK Chief Complaint CHCF LABWORK CHCF LABWORK NEW SYMPTOMS/CONCERNS ACUTE CARE VISIT CHCF LAB WORK [facility]CF LAB WORK Chief Complaint [facility]CF LABWORK NEW SYMPTOMS/CONCERNS ACUTE CARE VISIT [facility] LAB WORK CHCF LABWORK [facility] LAB WORK MONTHLY EXAM CHCF LABWORK NEW PROBLEM/CONCERN Chief Complaint MONTHLY EXAM [facility]CF LABWORK NEW PROBLEM/CONCERN NEW PROBLEM NEW PROBLEM/CONCERN NEW PROBLEM NEW PROBLEM NEW PROBLEM CHCF LABWORK Chief Complaint MONTHLY EXAM [facility]CF LABWORK NEW PROBLEM/CONCERN NEW PROBLEM NEW PROBLEM/CONCERN NEW PROBLEM NEW PROBLEM NEW PROBLEM CHCF LABWORK CHCF LABWORK Chief Complaint NEW CONCERN CHCF LABWORK MONTHLY EXAM CHCF LAB WORK CHCF LABWORK CHCF LAB WORK MONTHLY EXAM MONTHLY EXAM CHCF LAB WORK Chief Complaint NEW CONCERN CHCF LABWORK MONTHLY EXAM CHCF LAB WORK CHCF LABWORK CHCF LAB WORK MONTHLY EXAM MONTHLY EXAM CHCF LAB WORK CHCF LAB WORK Chief Complaint NEW CONCERN NEW CONCERN MONTHLY EXAM NEW CONCERN NEW CONCERN CHCF LAB WORK FOLLOW UP CHCF LAB WORK ACUTE CARE MONTHLY EXAM CHCF LAB WORK Chief Complaint NEW CONCERN MONTHLY EXAM NEW CONCERN NEW CONCERN CHCF LAB WORK FOLLOW UP CHCF LAB WORK ACUTE CARE MONTHLY EXAM CHCF LAB WORK CHCF LABWORK CHCF LABWORK Chief Complaint CHCF LAB WOR K FOLLOW UP [facility]CF LAB WORK ACUTE CARE MONTHLY EXAM CHCF LAB WORK CHCF LABWORK CHCF LABWORK MONTHLY EXAM 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 Chief Complaint FOLLOW UP [facility] LAB WORK ACUTE CARE MONTHLY EXAM CHCF LAB WORK CHCF LABWORK CHCF LABWORK MONTHLY EXAM CALCULATION REVIEWER NEW CONCERN MONTHLY EXAM - MD HEAD INJURY NEW CONCERN fall LABWORK Chief Complaint CHCF LABWORK CHCF LABWORK MONTHLY EXAM CALCULATION REVIEWER NEW CONCERN MONTHLY EXAM - MD HEAD INJURY NEW CONCERN fall LABWORK [facility] LAB WORK Chief Complaint Admit Date [facility] LAB WORK April 21 5:00am MONTHLY EXAM May 19, 2024 4 :53pm NEW CONCERN June 01, 2024 5 :22pm [facility] LAB WORK June 02, 2024 5:00am [facility] LAB WORK June 09, 2024 5:00am [facility] LAB WORK June 15 3:15pm NEW CONCERN June 26, 2024 5:54pm [facility] LAB WORK July 14, 2024 4 :00am [facility] LAB WORK July 15, 2024 5 :00am Chief Complaint Admit Date [facility] LAB WORK April 21 5:00am MONTHLY EXAM May 19, 2024 4 :53pm NEW CONCERN June 01, 2024 5 :22pm [facility] LAB WORK June 02, 2024 5:00am [facility] LAB WORK June 09, 2024 5:00am [facility] LAB WORK June 15 3:15pm NEW CONCERN June 26, 2024 5:54pm [facility] LAB WORK July 14, 2024 4 :00am MONTHLY EXAM July 14, 2024 4:0 5pm [facility] LAB WORK July 15, 2024 5 :00am Chief Complaint Admit Date MONTHLY EXAM May 19, 2024 4 :53pm NEW CONCERN June 01, 2024 5 :22pm [facility] LAB WORK June 02, 2024 5:00am [facility] LAB WORK June 09, 2024 5:00am [facility] LAB WORK June 15 3:15pm NEW CONCERN June 26, 2024 5:54pm [facility] LAB WORK July 14, 2024 4 :00am MONTHLY EXAM July 14, 2024 4:0 5pm [facility] LAB WORK July 15, 2024 5 :00am Chief Complaint Admit Date [facility] LAB WORK June 09, 2024 5:00am [facility] LAB WORK June 15 3:15pm NEW CONCERN June 26, 2024 5:54pm [facility] LAB WORK July 14, 2024 4 :00am MONTHLY EXAM July 14, 2024 4:0 5pm [facility] LAB WORK July 15, 2024 5 :00am MONTHLY EXAM August 17, 2024 4:4 9pm [facility] LAB WORK August 25, 2024 4 :00am Chief Complaint Admit Date [facility] LAB WORK June 15 3:15pm NEW CONCERN June 26, 2024 5:54pm [facility] LAB WORK July 14, 2024 4 :00am MONTHLY EXAM July 14, 2024 4:0 5pm [facility] LAB WORK July 15, 2024 5 :00am MONTHLY EXAM August 17, 2024 4:4 9pm [facility] LAB WORK August 25, 2024 4 :00am [facility] LAB WORK September 08, 2024 5:00 am [...] 2024 End: June 26, 2024 Debora Schneider CALCULATION REVIEWER, CALCULATION REVIEWER-C Attending Provider Active Start: June 26, 2024 [...] 2024 End: August 17, 2024 Debora Schneider CALCULATION REVIEWER, CALCULATION REVIEWER-C Attending Provider Active Start: August 17, 2024 [...] 2024 End: August 24, 2024 Debora Schneider CALCULATION REVIEWER, CALCULATION REVIEWER-C Other Provider Active S tart: August 24, [...] MD Primary Care Provider Active Debora Schneider CALCULATION REVIEWER, CALCULATION REVIEWER-C Attending Provider Active Team Status: Inactive Member [...] 2024 End: June 01, 2024 Debora Schneider CALCULATION REVIEWER, CALCULATION REVIEWER-C Attending Provider Active Start: June 01, 2024 [...] section and content) DATE CREATED AUTHOR 10/09/2024 [facility] FOR RECORDS PERTAINING TO PATIENTS WHO [...] BE BASED ON THE PRIMARY CLINICAL RECORDS. [facility]. provides no warranty or guarantee of the accuracy or completeness of information in this document.
[2024-10-18 22:00] LABS: Glucose 16 mg/dL (70-99)
[2024-10-18] MEDS: oxyCODONE 5 MG Tablet PO (23:16)
[2024-10-18] MEDS: Potassium Chloride Oral Tablet 20 MEQ 40 MEQ PO (23:17)
[2024-10-18] MEDS: MELATONIN 10 MG TABLET PO (23:18)
[2024-10-19 00:40] LABS: Reflex Lactate? Y
[2024-10-19] MEDS: Sodium Chloride 19.25 MEQ in Dextrose 10%-Water 250 ML 125 MEQ IV ×2 (01:20→03:30)
[2024-10-19 01:39] LABS: Bedside Glucose 135 mg/dL (74-106)
[2024-10-19 01:39] LABS: Bedside Glucose 170 mg/dL (74-106)
[2024-10-19 01:50] LABS: Lactic Acid 1.4 mmol/L (0.0-2.0)
[2024-10-19 03:15] VITALS: BP 163/76; PULSE 82; RESP 18; TEMP 37; O2SAT 99
[2024-10-19 03:42] LABS: Bedside Glucose 177 mg/dL (74-106)
[2024-10-19 05:03] VITALS: BMI 20.2
[2024-10-19] MEDS: Acetaminophen 500 MG Tablet 1000 MG PO ×3 (05:19→21:24)
[2024-10-19 06:07] LABS: Absolute Lymphocyte Count 1.48 X10^3/uL (0.83-4.51); Absolute Neutrophil Count 4.8 X10^3/uL (2.0-7.7); Basophil# 0.02 X10^3/uL; Basophil% 0.3 % (0-1); Eosinophil# 0.04 X10^3/uL; Eosinophils% 0.6 % (0-5); Hemoglobin 12.4 g/dL (12.0-15.0); Lymphocyte # 1.48 X10^3/ul (0.83-4.51); Lymphocyte % 21.5 % (19-41); Mean Corp Hgb Conc 32.6 g/dL (32-36); Mean Corpuscular Hgb 29.7 pg (27.0-32.0); Mean Corpuscular Volume 90.9 fL (81-99); Mean Platelet Vol. 9.4 fl (6.2-12.0); Monocyte% 7.3 % (0-10); NRBC Flagged by Analyzer 0 % (0-5); Neutrophil # 4.81 X10^3/uL (2.7-7.7); Platelet Count 181 K/mm3 (150-450); RBC Distribution Width CV 12.9 % (11.6-14.6); RBC Distribution Width SD 42.5 fl (35.1-43.9); Red Blood Count 4.18 M/mm3 (4.2-5.4); White Blood Count 6.9 K/mm3 (4.4-11.0)
[2024-10-19 06:37] LABS: ALB/GLOB Ratio 1.5 RATIO (0.9-2.4); AST(SGOT) 24 U/L (<=31); Alanine Aminotransfer ALT/SGPT 9 U/L (<=34); Albumin, Serum 3.6 g/dL (3.4-4.8); Alkaline Phosphatase 44 U/L (35-104); Anion Gap 10 (5-15); BUN 6 mg/dL (4-19); BUN/Creat Ratio 11.3 RATIO (10-20); Calcium,Total 8.7 mg/dL (7.6-11.0); Carbon Dioxide 23.7 mmol/L (21.0-32.0); Chloride 103 mmol/L (98-108); Creatinine, Serum 0.55 mg/dL (0.70-1.20); EST Glomerular Filtration Rate 92 (>60); Estimated Creatinine Clearance 45.71 ml/min (50-250); Globulin 2.4 g/dL (2.2-4.2); Glucose 132 mg/dL (70-99); Magnesium 1.7 mg/dL (1.5-2.2); Phosphorus 2.8 mg/dL (2.7-4.5); Potassium 4.6 mmol/L (3.3-5.1); Sodium Level 136 mmol/L (133-145); Total Bilirubin 0.42 mg/dL (0.00-1.30)
[2024-10-19] MEDS: Sodium Chloride 19.25 MEQ in Dextrose 10%-Water 250 ML 50 MEQ IV (08:41)
[2024-10-19 08:59] LABS: Bedside Glucose 132 mg/dL (74-106)
[2024-10-19 08:59] LABS: Bedside Glucose 112 mg/dL (74-106)
--- NOTE | 2024-10-19 09:10 | CASEMGMT ---
Discharge Planning Updates sent to [facility] with note that pt will likely return today. Ana Maria Alonso DC Planning Asst.
--- NOTE | 2024-10-19 09:27 | CASEMGMT ---
Patient is [facility] maintenance [facility]. There are no concerns with living situation. Plan: d/c back to [place]. Anita JEWELL
[2024-10-19 10:41] VITALS: BP 121/66; PULSE 80; RESP 16; TEMP 37.1; O2SAT 94
[2024-10-19] MEDS: Glycerin/Hypromellose/PEG400 15 ml Bottle 1 DRP EACH EYE ×2 (10:43→21:25)
[2024-10-19] MEDS: Nystatin Powder 15gm Bottle 1 APPLIC TOPICAL ×2 (10:44→21:23)
[2024-10-19] MEDS: Enoxaparin 40 MG/0.4 ML Syringe SC (10:45)
[2024-10-19] MEDS: Furosemide 20 MG Tablet PO (10:46)
[2024-10-19] MEDS: Cholecalciferol (VIT D3) 25 MCG TABLET (1,000 UNITS) 50 MCG PO (10:46)
[2024-10-19] MEDS: oxyCODONE 5 MG Tablet PO ×2 (10:51→21:22)
--- NOTE | 2024-10-19 11:09 | CASEMGMT ---
SW called patient's sister Jamia and confirmed patient's plan is to return to [place] at discharge. Jamia had some medical questions. SW told Jamia SW will see if nurse is able to call her back and update her. MANDA notified RN. Plan: d/c back to [place] under intermediate level of care. Anita Boland SEO MANAGER FANTA
[2024-10-19 11:18] LABS: Bedside Glucose 220 mg/dL (74-106)
--- NOTE | 2024-10-19 11:42 | WOUNDNOTE ---
wound photo: forehead
--- NOTE | 2024-10-19 11:42 | WOUNDNOTE ---
wound photo: left forearm
[2024-10-19 14:31] VITALS: BP 112/61; PULSE 76; RESP 16; TEMP 36.8; O2SAT 97
[2024-10-19 16:36] VITALS: BP 119/64; PULSE 76; RESP 16; O2SAT 97
[2024-10-19 17:11] LABS: Bedside Glucose 291 mg/dL (74-106)
--- NOTE | 2024-10-19 18:52 | PCM.PN.HOSP ---
Subjective Subjective She says that she does not feel great and would prefer to go back to the care home tomorrow Objective Data Objective Data Vital Signs: Vital Signs Temp Pulse Resp BP Pulse Ox O2 Del Method 98.3 F 76 16 119/64 97 Room Air 10/19/24 14:31 10/19/24 16:36 10/19/24 16:36 10/19/24 16:36 10/19/24 16:36 10/19/24 16:36 Oxygen Delivery Method Room Air Weight: 117 lb 11.629 oz Body Mass Index (BMI) 20.2 Intake & Output: Intake and Output for Last 24 Hours 10/18/24 10/19/24 10/20/24 03:59 03:59 03:59 Intake Total 1285.9200 / 1285.9200 1220.9550 / 1220.9550 Balance 1285.9200 / 1285.9200 1220.9550 / 1220.9550 Lab / Micro Data 10/19/24 05:35 10/19/24 05:35 Labs: Laboratory Results - last 24 hr 10/18/24 16:30: Sodium 143, Potassium 3.2 L, Chloride 102, Carbon Dioxide 24.5, Anion Gap 17 H, BUN 11, Creatinine 0.64 L, Estim Creat Clear Calc 42.88 L, Est GFR (MDRD) Non-Af 88, BUN/Creatinine Ratio 17.1, Glucose 16 L*, Calcium 10.0, Total Bilirubin 0.33, AST 34 H, ALT 13, Alkaline Phosphatase 60, Total Protein 8.0, Albumin 4.7, Globulin 3.3, Albumin/Globulin Ratio 1.4 10/18/24 18:57: POC Glucose 98 10/18/24 19:41: Urine Color Yellow, Urine Clarity Clear, Urine pH 6.5, Ur Specific [place] 1.015, Urine Protein 30 H, Urine Glucose (UA) 1000 H, Urine Ketones Negative, Urine Occult Blood 25 H, Urine Nitrite Positive H, Urine Bilirubin Negative, Urine Urobilinogen Normal, Ur Leukocyte Esterase 25 H, Urine RBC 0 SEEN, Urine WBC 10-25 SEEN, Ur Squamous Epith Cells 0-5 SEEN, Urine Bacteria 4+, Urine Mucus 0 SEEN 10/18/24 20:07: POC Glucose 119 H 10/18/24 20:34: PT 13.4, INR 1.0, Lactic Acid 2.8 H* 10/18/24 21:26: POC Glucose 129 H 10/18/24 23:23: POC Glucose 135 H 10/19/24 01:19: POC Glucose 170 H 10/19/24 01:26: Lactic Acid 1.4 10/19/24 03:17: POC Glucose 177 H 10/19/24 05:16: POC Glucose 132 H 10/19/24 05:35: WBC 6.9, RBC 4.18 L, Hgb 12.4, Hct 38.0, MCV 90.9, MCH 29.7, MCHC 32.6, RDW Std Deviation 42.5, RDW Coeff of [place] 12.9, Plt Count 181, MPV 9.4, Immature Gran % (Auto) 0.300, Neut % (Auto) 70.0, Lymph % (Auto) 21.5, [place] % (Auto) 7.3, Eos % (Auto) 0.6, Baso % (Auto) 0.3, Absolute Neuts (auto) 4.8, Absolute Lymphs (auto) 1.48, Nucleated RBC % 0, Sodium 136, Potassium 4.6, Chloride 103, Carbon Dioxide 23.7, Anion Gap 10, BUN 6, Creatinine 0.55 L, Estim Creat Clear Calc 45.71 L, Est GFR (MDRD) Non-Af 92, BUN/Creatinine Ratio 11.3, Glucose 132 H, Calcium 8.7, Phosphorus 2.8, Magnesium 1.7, Total Bilirubin 0.42, AST 24, ALT 9, Alkaline Phosphatase 44, Total Protein 6.0, Albumin 3.6, Globulin 2.4, Albumin/Globulin Ratio 1.5, TSH 1.130 10/19/24 07:16: POC Glucose 112 H 10/19/24 11:00: POC Glucose 220 H 10/19/24 16:34: POC Glucose 291 H Micro: Microbiology 10/18/24 19:41 Urine, Catheterized Urine Culture - Preliminary GNR lactose 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 Mild anterior frontal scalp swelling. No acute calvarial defect. Reading Location: [facility] Physical Exam Narrative General: Alert, Oriented x3, Cooperative, No apparent distress, severely kyphotic HEENT: Atraumatic, PERRLA, EOMI, Normocephalic Oral: Moist Mucosa Neck: Supple, No JVD Lungs: Diminished, Normal air movement, No rhonchi, No wheeze, No rales Cardiovascular: Regular rate, Regular Rhythm, Normal S1, Normal S2, No murmurs Abdomen: Soft, Non Tender, Non-Distended, No Hepato-splenomegaly Extremities: Edema, Capillary Refill Less than 3 Seconds Skin: No rashes, No breakdown Musculoskeletal: No Tenderness to Palpation of Joints or Extremities Neurological: No focal neurological deficits, Motor Exam 5/5 strength throughout, Sensory exam intact to light touch and pain Psych/Mental Status: Normal Affect, Appropriate Assessment & Plan Assessment/Plan (1) Diabetic hypoglycemia: PLAN: Plan 1. Altered mental status secondary to severe hypoglycemia and UTI with generalized weakness and falls ? This has resolved though she is still little bit confused ? Will make adjustments to her insulin on discharge ? Urine culture is pending we will continue with Rocephin ? Can discontinue the dextrose drip as her blood sugars have stabilized ? I think part of her hypoglycemia was just her lack of p.o. intake at the care home ? She did have falls at home the care home because of this hypoglycemia with some abrasions and ecchymosis, the wound care nurses been consulted ? PT/OT 2. Essential HTN ? Blood pressure is stable will resume her home Lasix ? Continue to monitor her blood pressures make adjustments as necessary ? She does have hydralazine every 6 hours as needed 3. DM2 ? Will hold all of her home diabetic medications ? When discharged there should be significant adjustments to her home blood sugar medications ? Continue with sliding scale insulin ? Accu-Cheks ACHS ? Will monitor make adjustments as necessary 4. Irritable bowel syndrome with chronic constipation complicated by chronic pain with chronic narcotic use ? Will hold her IBS medications ? Continue with her home MiraLAX ? Will monitor ? Can resume her home pain medications 5. History of Parkinson's disease and mild cognitive impairment ? She is not on any medications for this at this time DVT: Lovenox Charges/Coding Visit Charges Inpatient E&M: 28013 Subs Hosp L2
[2024-10-19 19:00] VITALS: PULSE 71
[2024-10-19 20:41] VITALS: BP 125/69; PULSE 80; RESP 15; TEMP 36.6; O2SAT 98
[2024-10-19] MEDS: Ceftriaxone 1 GM/50 ML BAG IV (21:22)
[2024-10-19] MEDS: Menthol/Lanolin/Calamine/Znox 113 GM Tube 1 APPLIC TOPICAL (21:23)
[2024-10-19] MEDS: MELATONIN 10 MG TABLET PO (21:24)
[2024-10-19] MEDS: Insulin Lispro 100 UNIT/ML INSULN.PEN SC (21:35)
[2024-10-19 22:15] LABS: Bedside Glucose 313 mg/dL (74-106)
[2024-10-19 23:37] VITALS: BMI 20.3
[2024-10-20 02:13] VITALS: BP 157/82; PULSE 75; RESP 15; TEMP 36.2; O2SAT 94
[2024-10-20 03:45] VITALS: BMI 19.7
[2024-10-20] MEDS: Acetaminophen 500 MG Tablet 1000 MG PO ×2 (06:30→14:24)
[2024-10-20] MEDS: Insulin Lispro 100 UNIT/ML INSULN.PEN SC ×3 (06:37→17:43)
[2024-10-20 07:05] LABS: Bedside Glucose 154 mg/dL (74-106)
[2024-10-20 07:30] VITALS: O2SAT 93
[2024-10-20 09:09] VITALS: BP 152/67; PULSE 72; RESP 16; TEMP 36.6; O2SAT 94
[2024-10-20] MEDS: Nystatin Powder 15gm Bottle 1 APPLIC TOPICAL (09:12)
[2024-10-20] MEDS: Menthol/Lanolin/Calamine/Znox 113 GM Tube 1 APPLIC TOPICAL (09:12)
[2024-10-20] MEDS: Enoxaparin 40 MG/0.4 ML Syringe SC (09:15)
[2024-10-20] MEDS: Furosemide 20 MG Tablet PO (09:16)
[2024-10-20] MEDS: Polyethylene Glycol 3350 17 GM PACKET PO (09:16)
[2024-10-20] MEDS: Cholecalciferol (VIT D3) 25 MCG TABLET (1,000 UNITS) 50 MCG PO (09:16)
[2024-10-20] MEDS: oxyCODONE 5 MG Tablet PO (09:23)
[2024-10-20] MEDS: 0.9% Saline Lock 10 ML Syringe IV (09:27)
--- NOTE | 2024-10-20 11:11 | PCM.TXEXTCAR ---
Diet Diet Order/Speech Therapy: INPATIENT Hospital Diet / Speech Therapy Order(s) 10/18/24 17:02 Diet: Regular - General Food consistency:: Regular Liquid Consistency:: Regular/Thin Diet Comments: whole milk with meals Routine Orders/Code Status Routine Lab Work: CBC and BMP Code Status: DNRCC DC O2, CPAP, BIPAP needs Home O2 Discharge instructions: No Wound(s) left forearm: Wound Type: Skin Tear Dressing Change: Adaptic abdominal folds: Wound Type: excoriation forehead: Wound Type: Abrasion Therapies Physical Therapy: Eval and Treat Occupational Therapy: Eval and Treat Problem/Diagnosis (1) Diabetic hypoglycemia: Status: Acute Code(s): E11.649 - Type 2 diabetes mellitus with hypoglycemia without coma Plan 1. Altered mental status secondary to severe hypoglycemia and UTI with generalized weakness and falls ? This has resolved though she is still little bit confused ? Will make adjustments to her insulin on discharge ? Urine culture is pending we will continue with Rocephin ? Can discontinue the dextrose drip as her blood sugars have stabilized ? I think part of her hypoglycemia was just her lack of p.o. intake at the skilled nursing ? She did have falls at home the skilled nursing because of this hypoglycemia with some abrasions and ecchymosis, the wound care nurses been consulted ? PT/OT 2. Essential HTN ? Blood pressure is stable will resume her home Lasix ? Continue to monitor her blood pressures make adjustments as necessary ? She does have hydralazine every 6 hours as needed 3. DM2 ? Will hold all of her home diabetic medications ? When discharged there should be significant adjustments to her home blood sugar medications ? Continue with sliding scale insulin ? Accu-Cheks ACHS ? Will monitor make adjustments as necessary 4. Irritable bowel syndrome with chronic constipation complicated by chronic pain with chronic narcotic use ? Will hold her IBS medications ? Continue with her home MiraLAX ? Will monitor ? Can resume her home pain medications 5. History of Parkinson's disease and mild cognitive impairment ? She is not on any medications for this at this time DVT: Lovenox Allergies/Procedures Done in Hospital Allergies sulfamethoxazole (From Bactrim) Allergy (Verified 08/24/24 08:34) Rash trimethoprim (From Bactrim) Allergy (Verified 08/24/24 08:34) Rash carbidopa (From Sinemet) Adverse Reaction (Verified 08/24/24 08:34) Nausea hydrocodone bitartrate (From Vicodin) Adverse Reaction (Verified 08/24/24 08:34) Nausea ketoprofen (From Orudis) Adverse Reaction (Verified 08/24/24 08:34) Unknown levodopa (From Sinemet) Adverse Reaction (Verified 08/24/24 08:34) Nausea lorazepam (From Ativan) Adverse Reaction (Verified 08/24/24 08:34) hallucination metformin HCl (From Glucophage) Adverse Reaction (Verified 08/24/24 08:34) Nausea naloxone Adverse Reaction (Verified 08/24/24 08:34) Nausea NSAIDS (Non-Steroidal Anti-Inflamma Adverse Reaction (Verified 08/24/24 08:34) PT UNSURE OF REACTION oxaprozin (From Daypro) Adverse Reaction (Verified 08/24/24 08:34) Nausea oxycodone HCl (From Percocet) Adverse Reaction (Verified 08/24/24 08:34) Nausea propoxyphene HCl (From Darvon) Adverse Reaction (Verified 08/24/24 08:34) Nausea rofecoxib (From Vioxx) Adverse Reaction (Verified 08/24/24 08:34) Nausea rosiglitazone maleate (From Avandia) Adverse Reaction (Verified 08/24/24 08:34) Nausea sertraline HCl (From Zoloft) Adverse Reaction (Verified 08/24/24 08:34) haullucination simvastatin (From Zocor) Adverse Reaction (Verified 08/24/24 08:34) Nausea venlafaxine HCl (From Effexor) Adverse Reaction (Verified 08/24/24 08:34) Nausea Type of Care/Length of Stay Estimated LOS: More Than 30 Days Type of Care Needed: Intermediate Rehab Potential: Poor Prognosis: Poor Additional Orders/Day of Discharge Day of Discharge: 10/20/24 Dietary and Speech Recommendations Dietitian Recommendations/Changes: 1. Continue regular diet due to poor PO intake. 2. Recommend consistent carbohydrate diet as PO intake improves due to poor glycemic control. 3. Will discontinue glucerna with meals and replace with whole milk with meals per pt request. 4. Will monitor weight trends. Discharge Plan Admission Admit Date/Time: 10/18/24 21:38 Attending Provider: Ángel Lam Primary Care Provider: Donato Sepulveda Consulting Providers: Anali Coello Discharge Orders/Prescriptions Prescriptions: New cefdinir 300 mg capsule 300 mg PO BID 3 Days Qty: 6 0RF Continued acetaminophen 325 MG tablet 325 mg PO BID Linzess 290 mcg capsule 290 mcg PO DAILY potassium chloride 20 mEq tablet,ER particles/crystals 40 meq PO DAILY furosemide 20 mg tablet 20 mg PO DAILY Glucagon Emergency Kit (human) 1 mg recon soln 1 mg IM PRN alum-mag hydroxide-simeth [Advanced Antacid-Antigas] 400-400-40 mg/5 mL suspension 15 ml PO Q4H PRN (Reason: indigestion) Rx Instructions: do not exceed 12 doses in a 24 hour period polyethylene glycol 3350 [ClearLax] 17 gram/dose powder 17 g PO QODAY ondansetron 4 mg tablet,disintegrating 4 mg PO Q6H PRN (Reason: nausea and vomiting) acetaminophen 325 mg tablet 650 mg PO Q4H PRN (Reason: fever or pain) cholecalciferol (vitamin D3) [D3 DOTS] 50 mcg (2,000 unit) tablet 50 mcg PO DAILY GenTeal Tears Mild 0.1-0.3 % drops 1 drp EACH EYE BID lidocaine [Aspercreme (lidocaine)] 4 % adhesive patch,medicated 1 patch topical BID PRN (Reason: pain) duloxetine 30 mg capsule,delayed release(DR/EC) 30 mg PO DAILY oxycodone 5 mg tablet 5 mg PO BID 30 Days Qty: 60 0RF Changed insulin glargine [Lantus Solostar U-100 Insulin] 100 unit/mL (3 mL) insulin pen 10 unit SUBCUT DAILY 1 Days Qty: 0 0RF Held dapagliflozin propanediol [Farxiga] 10 mg tablet 10 mg PO DAILY Hold Instructions: Resume on 10/26/24. metformin 1,000 mg tablet 1,000 mg PO BID Hold Instructions: Resume on 10/26/24. Trulicity 4.5 mg/0.5 mL pen injector 4.5 mg subcut QWEEK Hold Instructions: Resume on 10/26/24. Patient Comments: PT TAKES ON WEDNESDAYS Referrals / Follow Up: Donato Sepulveda MD [Primary Care Provider] - Disposition Disposition (needs filled in before D/C Order can be placed): Long Term Facility
--- NOTE | 2024-10-20 11:26 | CASEMGMT ---
Patient is ready for discharge back to [place]. Plan:d/c back to [place] under intermediate level of care. [facility] will transport patient via wheelchair van. Anita JEWELL
--- NOTE | 2024-10-20 11:48 | PHA.DC.MR.R ---
Pharmacy [place] Med Reconciliation Pharmacy Service has performed discharge medication reconciliation for this patient. The patient's discharge medication list was reviewed for discrepancies and discrepancies were resolved. Medications at Discharge Home Medications acetaminophen 325 mg tablet 325 mg PO BID CHRONIC PAIN 09/20/17 dapagliflozin propanediol 10 mg tablet (Farxiga) 10 mg PO DAILY 06/05/23 Held on 10/20/24. Instructions: Resume on 10/26/24. furosemide 20 mg tablet 20 mg PO DAILY 06/05/23 linaclotide 290 mcg capsule (Linzess) 290 mcg PO DAILY 06/05/23 potassium chloride 20 mEq tablet,extended release(part/cryst) 40 meq PO DAILY 06/05/23 glucagon 1 mg solution for injection (Glucagon Emergency Kit) 1 mg IM PRN 06/08/23 dulaglutide 4.5 mg/0.5 mL subcutaneous pen injector (Trulicity) 4.5 mg subcut QWEEK 08/24/24 Held on 10/20/24. Instructions: Resume on 10/26/24. oxycodone 5 mg tablet 5 mg PO BID pain 30 days #60 tabs 09/29/24 acetaminophen 325 mg tablet 650 mg PO Q4H PRN fever or pain 10/18/24 aluminum-mag hydroxide-simethicone 400 mg-400 mg-40 mg/5 mL oral susp (Advanced Antacid-Antigas) 15 ml PO Q4H PRN indigestion 10/18/24 cholecalciferol (vitamin D3) 50 mcg (2,000 unit) tablet (D3 DOTS) 50 mcg PO DAILY 10/18/24 dextran 70-hypromellose 0.1 %-0.3 % eye drops (GenTeal Tears Mild) 1 drp EACH EYE BID 10/18/24 metformin 1,000 mg tablet 1,000 mg PO BID 10/18/24 Held on 10/20/24. Instructions: Resume on 10/26/24. ondansetron 4 mg disintegrating tablet 4 mg PO Q6H PRN nausea and vomiting 10/18/24 polyethylene glycol 3350 17 gram/dose oral powder (ClearLax) 17 g PO QODAY 10/18/24 duloxetine 30 mg capsule,delayed release 30 mg PO DAILY depression 10/19/24 lidocaine 4 % topical patch (Aspercreme (lidocaine)) 1 patch topical BID PRN pain 10/19/24 cefdinir 300 mg capsule 300 mg PO BID 3 days #6 caps 10/20/24 insulin glargine 100 unit/mL (3 mL) subcutaneous pen (Lantus Solostar U-100 Insulin) 10 unit (0.1 mL) subcut DAILY 1 day #0 mL 10/20/24
--- NOTE | 2024-10-20 11:51 | CASEMGMT ---
SW sent orders and d/c med list to [place] via [employer]. Anita Boland REGULATORY ADMINISTRATOR FANTA
--- NOTE | 2024-10-20 12:17 | CASEMGMT ---
MANDA called [facility] and arranged for patient to get picked up by [facility] via wheelchair. SW notified RN, managed services consultant, [facility] [place], and left a message for patient's sister. Plan: d/c back to [place] under intermediate level of care. Physicians will transport patient via wheelchair. Anita Boland MSW FANTA
[2024-10-20 12:21] VITALS: BP 139/61; PULSE 74; RESP 16; TEMP 36.6; O2SAT 94
[2024-10-20 12:42] LABS: Bedside Glucose 296 mg/dL (74-106)
--- NOTE | 2024-10-20 15:05 | NURSING ---
Report called at this time to GLENROY Medina at [facility].
--- NOTE | 2024-10-20 15:35 | PCM.DC.SUM ---
Providers Date of Admission: 10/18/24 Primary Care Physician: Dr. Donato Sepulveda MD Consultations 10/18/24 22:14 Consult: Onc/Wound/stamp analyst Routine Comment: Reason For Visit: SEVERE HYPOGLYCEMIA/UTI Diagnosis Discharge Diagnosis (1) Diabetic hypoglycemia: Status: Acute Code(s): E11.649 - Type 2 diabetes mellitus with hypoglycemia without coma Medications at Discharge Home Medications acetaminophen 325 mg tablet 325 mg PO BID CHRONIC PAIN 09/20/17 dapagliflozin propanediol 10 mg tablet (Farxiga) 10 mg PO DAILY 06/05/23 Held on 10/20/24. Instructions: Resume on 10/26/24. furosemide 20 mg tablet 20 mg PO DAILY 06/05/23 linaclotide 290 mcg capsule (Linzess) 290 mcg PO DAILY 06/05/23 potassium chloride 20 mEq tablet,extended release(part/cryst) 40 meq PO DAILY 06/05/23 glucagon 1 mg solution for injection (Glucagon Emergency Kit) 1 mg IM PRN 06/08/23 dulaglutide 4.5 mg/0.5 mL subcutaneous pen injector (Trulicity) 4.5 mg subcut QWEEK 08/24/24 Held on 10/20/24. Instructions: Resume on 10/26/24. oxycodone 5 mg tablet 5 mg PO BID pain 30 days #60 tabs 09/29/24 acetaminophen 325 mg tablet 650 mg PO Q4H PRN fever or pain 10/18/24 aluminum-mag hydroxide-simethicone 400 mg-400 mg-40 mg/5 mL oral susp (Advanced Antacid-Antigas) 15 ml PO Q4H PRN indigestion 10/18/24 cholecalciferol (vitamin D3) 50 mcg (2,000 unit) tablet (D3 DOTS) 50 mcg PO DAILY 10/18/24 dextran 70-hypromellose 0.1 %-0.3 % eye drops (GenTeal Tears Mild) 1 drp EACH EYE BID 10/18/24 metformin 1,000 mg tablet 1,000 mg PO BID 10/18/24 Held on 10/20/24. Instructions: Resume on 10/26/24. ondansetron 4 mg disintegrating tablet 4 mg PO Q6H PRN nausea and vomiting 10/18/24 polyethylene glycol 3350 17 gram/dose oral powder (ClearLax) 17 g PO QODAY 10/18/24 duloxetine 30 mg capsule,delayed release 30 mg PO DAILY depression 10/19/24 lidocaine 4 % topical patch (Aspercreme (lidocaine)) 1 patch topical BID PRN pain 10/19/24 cefdinir 300 mg capsule 300 mg PO BID 3 days #6 caps 10/20/24 insulin glargine 100 unit/mL (3 mL) subcutaneous pen (Lantus Solostar U-100 Insulin) 10 unit (0.1 mL) subcut DAILY 1 day #0 mL 10/20/24 Hospital Course Operations None Procedures None Summary of Care Provided Minutes Spent on Discharge: 32 Hospital Course: Per HPI: MINDY CHINCHILLA, is a 84 F who presented to the emergency department at [facility] on 10/18/2024 with chief complaint of head trauma after a fall and altered mental status. Patient had an unwitnessed fall was found on the ground. She had a forehead hematoma with a small laceration as well as a skin tear on her left arm. She was noted to be markedly confused so the EMS was called. Blood sugar was assessed on arrival and was 32 patient was diaphoretic at that time as well. She was treated by the squad and after arrival to the emergency department she was more alert but still somewhat confused. By the time we were able to evaluate her she was very talkative and back to normal as she had been treated with dextrose via IV. She has baseline confusion per family and seems to be at her baseline at the time of my admission. She does have a history of diabetes and takes quite a bit of medication. Family reports that her oral intake is poor at the nursing facility. Patient states the food is terrible. Patient unable to remember when the last time she ate today was. Vital signs on presentation showed temperature 97.9, heart rate 91, respiratory 13, blood pressure was 162/92 and pulse ox was 100% room air. CBC did show significant leukocytosis with a white count of 20,000. She does seem to be hemoconcentrated as her hemoglobin was also are elevated compared to her baseline from just about a week ago at 15.5 with her hemoglobin a week ago being 11.9. She does have a left shift with an 89.4% neutrophilia. Coags are normal. Chemistry panel shows mild hypokalemia with potassium of 3.2. Slight anion gap at 17 with a normal CO2. Renal function is normal. Glucose on BMP was 16. Lactic acid was 2.8. Liver functions are unremarkable. Urine is suggestive of infection and some dehydration with nitrite, leuk esterase, white cells, and 4+ bacteria. CT of the brain shows no acute infarct, cranial hemorrhage or mass effect. There are no signs of normal pressure hydrocephalus and mild to moderate chronic microvascular changes without area of mild anterior frontal scalp swelling. In the emergency department she was put on a D10 drip with improvement of her blood sugars. As her blood sugar improved her mentation improved as well. By the time of admission family thought that she was close to her baseline mentation. Hospital Course: 1. Metabolic encephalopathy secondary to severe hypoglycemia and a pansensitive E. coli UTI with generalized weakness and falls?84-year-old female [facility] was found to have a blood sugar of 19. On admission she was also found to have a leukocytosis and a urine sample was obtained which was fairly consistent with UTI so culture was obtained demonstrating a pansensitive E. coli. She was empirically started on Rocephin and with the pansensitive E. coli transition to cefdinir on discharge. Her blood sugar improved significantly with holding all of her home hypoglycemics as she has poor p.o. intake at baseline because she does not like the food at the [facility] apparently. I recommend holding all of her home hypoglycemics for now I did reinstitute 10 units of Lantus instead of the 43 she had been on and I recommend following a sliding scale insulin per institutional policies at the [facility] until we see what her blood sugars are doing and then slowly add back on medications to try to avoid another severe hypoglycemic event. She feels better today than she did yesterday and would like to go back to the [facility] if possible today. 2. Essential hypertension, type 2 diabetes, irritable bowel syndrome with chronic constipation complicated by chronic pain with chronic narcotic use, history of Parkinson's disease and mild cognitive impairment are all chronic medical conditions which complicate her care. Her home medications were continued where appropriate Physical Exam Narrative General: Alert, Oriented x3, Cooperative, No apparent distress, severely kyphotic HEENT: Atraumatic, PERRLA, EOMI, Normocephalic Oral: Moist Mucosa Neck: Supple, No JVD Lungs: Diminished, Normal air movement, No rhonchi, No wheeze, No rales Cardiovascular: Regular rate, Regular Rhythm, Normal S1, Normal S2, No murmurs Abdomen: Soft, Non Tender, Non-Distended, No Hepato-splenomegaly Extremities: Edema, Capillary Refill Less than 3 Seconds Skin: No rashes, No breakdown Musculoskeletal: No Tenderness to Palpation of Joints or Extremities Neurological: No focal neurological deficits, Motor Exam 5/5 strength throughout, Sensory exam intact to light touch and pain Psych/Mental Status: Normal Affect, Appropriate Weight / BMI Weight Weight: 115 lb 8.356 oz Body Mass Index (BMI) 19.7 ABG / Lab / Microbiology Data 10/19/24 05:35 10/19/24 05:35 Laboratory: Laboratory Results - last 24 hr 10/19/24 16:34: POC Glucose 291 H 10/19/24 21:22: POC Glucose 313 H 10/20/24 06:36: POC Glucose 154 H 10/20/24 12:17: POC Glucose 296 H Microbiology: Microbiology 10/18/24 19:41 Urine, Catheterized Urine Culture - Final Escherichia coli D/C Instructions DC O2, CPAP, BIPAP Needs Home O2 Discharge instructions: No Meaningful Use Info Meaningful Use Meaningful Use Diagnoses (Choose all that apply): None applicable Ischemic Stroke Statin Dosing Therapy Reference: STATIN DOSE THERAPY REFERENCE: * Patients > 75 years receive moderate or high dose statin therapy. * Patients 75 years or YOUNGER should receive HIGH intensity statin dose unless contraindicated. You will be required to document reason for non-treatment if statin daily dose does not meet guidelines. HIGH DOSE STATIN THERAPY DAILY Atorvastatin > than or = to 40 mg Rosuvastatin > than or = to 20 mg Amlodipine + Atorvastatin > than or = to 2.5/40 mg Ezetimibe + Simvastatin 10/80 mg Simvastatin 80mg Discharge Plan Admission Admit Date/Time: 10/18/24 21:38 Attending Provider: Ángel Lam Primary Care Provider: Donato Sepulveda Consulting Providers: Anali Coello Discharge Orders/Prescriptions Prescriptions: New cefdinir 300 mg capsule 300 mg PO BID 3 Days Qty: 6 0RF Continued acetaminophen 325 MG tablet 325 mg PO BID Linzess 290 mcg capsule 290 mcg PO DAILY potassium chloride 20 mEq tablet,ER particles/crystals 40 meq PO DAILY furosemide 20 mg tablet 20 mg PO DAILY Glucagon Emergency Kit (human) 1 mg recon soln 1 mg IM PRN alum-mag hydroxide-simeth [Advanced Antacid-Antigas] 400-400-40 mg/5 mL suspension 15 ml PO Q4H PRN (Reason: indigestion) Rx Instructions: do not exceed 12 doses in a 24 hour period polyethylene glycol 3350 [ClearLax] 17 gram/dose powder 17 g PO QODAY ondansetron 4 mg tablet,disintegrating 4 mg PO Q6H PRN (Reason: nausea and vomiting) acetaminophen 325 mg tablet 650 mg PO Q4H PRN (Reason: fever or pain) cholecalciferol (vitamin D3) [D3 DOTS] 50 mcg (2,000 unit) tablet 50 mcg PO DAILY GenTeal Tears Mild 0.1-0.3 % drops 1 drp EACH EYE BID lidocaine [Aspercreme (lidocaine)] 4 % adhesive patch,medicated 1 patch topical BID PRN (Reason: pain) duloxetine 30 mg capsule,delayed release(DR/EC) 30 mg PO DAILY oxycodone 5 mg tablet 5 mg PO BID 30 Days Qty: 60 0RF Changed insulin glargine [Lantus Solostar U-100 Insulin] 100 unit/mL (3 mL) insulin pen 10 unit SUBCUT DAILY 1 Days Qty: 0 0RF Held dapagliflozin propanediol [Farxiga] 10 mg tablet 10 mg PO DAILY Hold Instructions: Resume on 10/26/24. metformin 1,000 mg tablet 1,000 mg PO BID Hold Instructions: Resume on 10/26/24. Trulicity 4.5 mg/0.5 mL pen injector 4.5 mg subcut QWEEK Hold Instructions: Resume on 10/26/24. Patient Comments: PT TAKES ON WEDNESDAYS Referrals / Follow Up: Donato Sepulveda MD [Primary Care Provider] - Disposition Disposition (needs filled in before D/C Order can be placed): [facility] Charges/Coding Visit Charges Inpatient E&M: 21975 Disch Hosp >30min
[2024-10-20 18:04] LABS: Bedside Glucose 200 mg/dL (74-106)
[2024-10-20 18:22] VITALS: BP 164/78; PULSE 72; RESP 18; O2SAT 94
== END 2024-10-20 18:24 | disposition skilled nursing facility (03) | DRG 637 ==
LOC: ED 20:36 → PCU 21:50
PROVIDERS: Admitting Provider Internal Medicine; Emergency Provider Emergency Medicine; PCP Internal Medicine; Visit Provider Family Medicine
DX: E11.649 Type 2 diabetes mellitus with hypoglycemia without coma (principal); G93.41 Metabolic encephalopathy; N39.0 Urinary tract infection, site not specified; Z51.5 Encounter for palliative care; G20.A1 Parkinson's disease without dyskinesia, without mention of fluctuations; I10 Essential (primary) hypertension; S00.83XA Contusion of other part of head, initial encounter; E78.2 Mixed hyperlipidemia; E87.6 Hypokalemia; K58.9 Irritable bowel syndrome, unspecified; Z79.4 Long term (current) use of insulin; S51.812A Laceration without foreign body of left forearm, initial encounter; E86.0 Dehydration; W19.XXXA Unspecified fall, initial encounter; B96.20 Unspecified Escherichia coli [E. coli] as the cause of diseases classified elsewhere; Z66 Do not resuscitate; Z83.3 Family history of diabetes mellitus; Z79.84 Long term (current) use of oral hypoglycemic drugs; R29.6 Repeated falls
CPT/HCPCS: 36415; 70450; 80053; 81001; 82962; 83605; 83735; 84100; 84443; 85025; 85610; 87040; 87077; 87086; 87088; 87186; 97162; 97166; 97802; 99285; A4216

== ENCOUNTER → 2024-11-17 | Outpatient (REF) | payer MEDICARE, MEDICAID, SELFPAY ==
--- OUTSIDE RECORDS SUMMARY | 2024-11-17 06:38 | XMS RPT_ITS | CCD ---
Author Organization [facility] Care Team Providers Care E D Tech Name Role Phone Trent HILARIO, Rachael Sarabia Unavailable Dr. Basilio Flores Primary Care Provider Tickangelic NEWSPAPER REPORTER, NEWSPAPER REPORTER-C Debora Attending Provider Dr. Basilio Anderson Primary Care Provider Dr. Basilio Flores Primary Care Provider [place] NEWSPAPER REPORTER, NEWSPAPER REPORTER-C Debora Attending Provider Dr. Basilio Anderson Primary Care Provider [place] NEWSPAPER REPORTER, NEWSPAPER REPORTER-C Debora Attending Provider Dr. Basilio Anderson Primary Care Provider Dr. Donato Sepulveda Attending Provider [place] NEWSPAPER REPORTER, NEWSPAPER REPORTER-C Debora Attending Provider Dr. Basilio Anderson Primary Care Provider Dr. Donato Sepulveda Attending Provider [place] NEWSPAPER REPORTER, NEWSPAPER REPORTER-C Debora Attending Provider Dr. Basilio Anderson Primary Care Provider [place] NEWSPAPER REPORTER, NEWSPAPER REPORTER-C Debora Attending Provider Dr. Donato Centeno Attending Provider [phone] Dr. Basilio Flores Primary Care Provider [place] NEWSPAPER REPORTER, NEWSPAPER REPORTER-C Debora Attending Provider Dr. Donato Centeno Attending Provider Dr. Basilio Flores Primary Care Provider [place] NEWSPAPER REPORTER, NEWSPAPER REPORTER-C Debora Attending Provider Dr. Basilio Anderson Primary Care Provider [place] NEWSPAPER REPORTER, NEWSPAPER REPORTER-C Debora Attending Provider Dr. Donato Sepulveda Attending Provider Dr. Basilio Flores Primary Care Provider [place] NEWSPAPER REPORTER, NEWSPAPER REPORTER-C Debora Attending Provider Dr. Donato Sepulveda Attending Provider Dr. Basilio Flores MD Primary Care Provider Donato Sepulveda MD Attending Provider Dr. Donato Frederick MD Attending Provider Tickangelic NEWSPAPER REPORTER-C, Debora Attending Provider Donato Sepulveda MD Referring Provider Dr. Basilio Owens MD Primary Care Provider Donato Sepulveda MD Attending Provider UnavailDr. Armando Elizabeth MD Attending Provider [phone] Dr. Armando Rich MD Referring Provider Derick HILARIO, Dr. Sewell Primary Care Provider Tickangelic NEWSPAPER REPORTER-C, Debora Other Provider Dr. Basilio Flores MD Primary Care Provider Donato Sepulveda MD Attending Provider Unavaila keli Schneider NEWSPAPER REPORTER-C, Debora Attending Provider Dr. Donato Sepulveda MD Attending Provider Dr. Donato Sepulveda MD Primary Care Provider Dr. Basilio Flores MD Primary Care Provider Donato Sepulveda MD Attending Provider Dr. Basilio Owens MD Primary Care Provider Donato Sepulveda MD Attending Provider Dr. Zoltan Laguna DO Emergency Provider Mode BAUGH, Dr. Briones Admit Provider Mode BAUGH, Dr. Briones Attending Provider Mode BAUGH, Dr. rBiones Other Provider Genaro HILARIO, Dr. Ángel Triana Attending Provider Genaro HILARIO, Dr. Ángel Triana Other Provider [phone] Flores, Basilio K Primary Care Unavailable Oleghe OLS, Efewongbe Attending Unavailabl e Oleghe [...] Unavailable Oleghe OLS, Efewongbe Attending Unavailabl e Oleghe OLS, Efewongbe Attending Unavailabl e Flores, Basilio K Primary Care Unavailable Ángel Lam Attending Unavailable Anali Coello Consulting Unavailable Anali Coello Admitting Unavailable Oleghe, Efewongbe Primary Care Unavailable Flores, Basilio K Primary Care Unavailable [place] NEWSPAPER REPORTER, Debora Attending Unavailable Flores, Basilio K Primary Care Unavailable [place] NEWSPAPER REPORTER, Debora Attending Unavailable Flores, Basilio K Primary Care Unavailable [place] NEWSPAPER REPORTER, Debora Attending Unavailable Flores, Basilio K Primary Care Unavailable Oleghe, Efewongbe Attending Unavailable Oleghe OLS, Efewongbe Attending Unavailabl e Flores, Basilio K Primary Care Unavailable Oleghe OLS, Efewongbe Referring Unavailabl e Oleghe OLS, Efewongbe Attending Unavailabl e Flores, Basilio K Primary Care Unavailable Oleghe OLS, Efewongbe Attending Unavailabl e Oleghe, Efewongbe Primary Care Unavailable Oleghe OLS, Efewongbe Referring Unavailabl e Oleghe OLS, Efewongbe Attending Unavailabl e Oleghe, Efewongbe Primary Care Unavailable Oleghe OLS, Efewongbe Attending Unavailabl e Oleghe, Efewongbe Primary Care Unavailable Anali Coello Consulting Unavailable Anali Coello Admitting Unavailable Oleghe, Efewongbe Primary Care Unavailable Anali Coello Attending Unavailable Flores, Basilio K Primary Care Unavailable Oleghe, Efewongbe Attending Unavailable Flores, Basilio K Primary Care Unavailable Oleghe, Efewongbe Attending Unavailable Flores, Basilio K Primary Care Unavailable [place] NEWSPAPER REPORTER, Debora Attending Unavailable Oleghe, Efewongbe Primary Care Unavailable [place] NEWSPAPER REPORTER, Debora Consulting Unavailable Armando Rich Referring Unavailable Armando Rich Attending Unavailable [place] NEWSPAPER REPORTER, Debora Attending Unavailable Oleghe, Efewongbe Primary Care Unavailable Flores, Basilio K Primary Care Unavailable Oleghe OLS, Efewongbe Attending Unavailabl e Flores, Basilio K Primary Care Unavailable [place] NEWSPAPER REPORTER, Debora Attending Unavailable Flores, Basilio K Primary Care Unavailable Oleghe, Efewongbe Attending Unavailable Flores, Basilio K Primary Care Unavailable [place] NEWSPAPER REPORTER, Debora Attending Unavailable Flores, Basilio K Primary Care Unavailable [place] NEWSPAPER REPORTER, Debora Attending Unavailable nÁgel Lam Attending Unavailable Ángel Lam Consulting Unavailable Flores, Basilio K Primary Care Unavailable Oleghe OLS, Efewongbe Attending Unavailabl e Allergies Allergy Classification Reported Allergen(s) Allergy Type Date of Onset Reaction(s) Facility (1 source) Acetaminophen / HYDROcodone Drug Allergy 019 unknown [facility] Work Phone: (1 source) Acetaminophen / oxyCODONE Drug Allergy 019 unknown [facility] Work Phone: (1 source) Acetaminophen / Propoxyphene Drug Allergy 019 unknown [facility] Work Phone: (1 source) Baclofen Drug Allergy 019 unknown [facility] Work Phone: (1 source) Carbidopa / Levodopa Drug Allergy 019 unknown [facility] Work Phone: (1 source) Ibuprofen Drug Allergy 019 kidney disease [facility] Work Phone: (1 source) Ketoprofen Drug Allergy 019 unknown [facility] Work Phone: (1 source) LORazepam Drug Allergy unknown [facility] Work Phone: (1 source) metFORMIN Drug Allergy unknown [facility] Work Phone: (20 sources) Naloxone; Translations: [naloxone] Drug Allergy unknown, Nausea [facility] Work Phone: (1 source) oxaprozin Drug Allergy unknown [facility] Work Phone: (1 source) rofecoxib Drug Allergy unknown [facility] Work Phone: (1 source) rosiglitazone Drug Allergy siblings had severe reactions [facility] Work Phone: (1 source) Sertraline Drug Allergy unknown [facility] Work Phone: (1 source) Simvastatin Drug Allergy unknown [facility] Work Phone: (1 source) Sulfamethoxazole / Trimethoprim Drug Allergy unknown [facility] Work Phone: (1 source) venlafaxine; Translations: [EFFEXOR] Drug Allergy unknown [facility] Work Phone: (20 sources) Carbidopa Drug Allergy 018 Nausea [facility] (20 sources) HYDROcodone; Translations: [hydrocodone bitartrate] Drug Allergy Nausea [facility] (20 sources) Ketoprofen Drug Allergy 018 Unknown [facility] (20 sources) Levodopa Drug Allergy Nausea [facility] (20 sources) LORazepam Drug Allergy hallucination [facility] (20 sources) metFORMIN; Translations: [metformin HCl] Drug Allergy Nausea [facility] (20 sources) oxaprozin Drug Allergy Nausea [facility] (20 sources) oxyCODONE; Translations: [oxycodone HCl] Drug Allergy Nausea [facility] (20 sources) Propoxyphene; Translations: [propoxyphene HCl] Drug Allergy Nausea [facility] (20 sources) rofecoxib Drug Allergy Nausea [facility] (20 sources) rosiglitazone; Translations: [rosiglitazone maleate] Drug Allergy Nausea [facility] (20 sources) Sertraline; Translations: [sertraline HCl] Drug Allergy haullucination [facility] (20 sources) Simvastatin Drug Allergy Nausea [facility] (20 sources) Sulfamethoxazole Drug Allergy Rash [facility] (20 sources) Trimethoprim Drug Allergy Rash [facility] (20 sources) venlafaxine; Translations: [venlafaxine HCl] Drug Allergy Nausea [facility] (20 sources) NSAIDS (Non-Steroidal Anti-Inflamma; Translations: [NSAIDS (Non-Steroidal Anti-Inflamma] Propensity to adverse reactions PT UNSURE OF REACTION [facility] (1 source) Carbidopa Drug Allergy [facility] (1 source) Ketoprofen Drug Allergy [facility] (1 source) Levodopa Drug Allergy [facility] (1 source) LORazepam Drug Allergy [facility] (1 source) oxaprozin Drug Allergy [facility] (1 source) rofecoxib Drug Allergy [facility] (1 source) Simvastatin Drug Allergy [facility] (1 source) Sulfamethoxazole Drug Allergy [facility] (1 source) Trimethoprim Drug Allergy 025 [facility] Medications Current Medications Medication Drug Class(es) Dates Sig (Normalized) Sig (Original) acetaminophen 325 mg oral tablet (20 sources) Start: 10-18-2024 take 2 tablets by mouth every four hours as needed for pain Acetaminophen 325 mg tablet Active 650 mg PO Q4H as needed for fever or pain October 18, 2024 12:00am Start: 03-16-2019 TYLENOL 325 MG CAPS takes two tabs every 4 hours as needed ACETAMINOPHEN [id number] Rachael Newman MD Start: 09-20-2017 take 1 tablet by rufina th twice daily Acetaminophen 325 MG tablet Active 325 mg PO TWICE A DAY September 20, 2017 2:44pm Start: 09-20-2017 take [...] 14, 2015 1:00am September 20, 2017 2:45pm Alum-Mag Hydroxide-Simeth (Advanced Antacid-Antigas) 400-400-40 mg/5 mL suspension (2 sources) Start: 10-18-2024 Alum-Mag Hydroxide-Simeth (Advanced Antacid-Antigas) 400-400-40 mg/5 mL suspension Active 15 mL PO Q4H as needed for indigestion October 18, 2024 12:00am do not exceed 12 doses in a 24 hour period cefdinir 300 mg oral capsule (1 source) Cephalosporin Antibacterial Start: 10-20-2024 take 1 capsule by mouth twice daily Cefdinir 300 mg capsule Active 300 mg PO TWICE A DAY 6 3 October 20, 2024 12:00am cholecalciferol 0.05 mg oral tablet (2 sources) Vitamin D Start: 10-18-2024 Cholecalciferol (Vitamin D3) (D3 Dots) 50 mcg (2,000 unit) tablet Active 50 ug PO DAILY October 18, 2024 12:00am dapagliflozin 10 mg oral tablet (10 sources) Sodium-Glucose Cotransporter 2 Inhibitor Start: 06-05-2023 take 1 tablet by mouth once daily Dapagliflozin Propanediol (Farxiga) 10 mg tablet Active 10 mg PO DAILY June 05, 2023 1:00am On Hold: Resume on 10/26/24. Start: 06-05-2023 Dapagliflozin Propanediol (Dapagliflozin Propanediol 10 Mg Tablet) 10 mg tablet Active MG June 05, 2023 12:00am Dextran 70-Hypromellose (Genteal Tears Mild) 0.1-0.3 % drops (2 sources) Start: 10-18-2024 take 0.1-0.3 drop(s) into the eye(s) twice daily Dextran 70-Hypromellose (Genteal Tears Mild) 0.1-0.3 % drops Active 1 NMA EACH EYE TWICE A DAY October 18, 2024 12:00am Dulaglutide (20 sources) GLP-1 Receptor Agonist Start: 08-24-2024 Dulaglutide (Trulicity) 4.5 mg/0.5 mL pen injector Active 4.5 mg SC EVERY WEEK August 24, 2024 12:00am On Hold: Resume on 10/26/24. Start: 08-24-2024 Dulaglutide (T rulicity) 4.5 mg/0.5 mL pen injector Active 4.5 mg SC EVERY WEEK August 24, 2024 12:00am Start: 12-16-2019 End: 06-08-2023 Dulaglutide 0.75 MG/0.5 ML p en injector Discontinued 0.75 mg SQ TU December 16, 2019 12:00am June 08, 2023 9:23am DULoxetine 30 mg delayed release oral capsule (6 sources) Serotonin and Norepinephrine Reuptake Inhibitor Start: 08-24-2024 End: 10-18-2024 take 1 capsule by mouth once daily Duloxetine 30 mg capsule,delayed release(DR/EC) Active 30 mg PO DAILY October 19, 2024 12:00am furosemide 20 mg oral tablet (11 sources) Loop Diuretic Start: 06-05-2023 take 1 tablet by mouth once daily Furosemide 20 mg tablet Active 20 mg PO DAILY June 05, 2023 1:00am Start: 06-05-2023 Furosemide Act alonso MG June 05, 2023 12:00am Start: 03-16-2019 FUROSEMIDE TAB S takes 20mg at night and 40mg twice daily FUROSEMIDE TABS [id number] Rachael Newman MD glucagon (rdna) 1 mg injection (9 sources) Antihypoglycemic Agent Start: 06-08-2023 Glucago n (Glucagon Emergency Kit (Human)) 1 mg recon soln Active 1 mg IM NEEDED June 08, 2023 1:00am 3 ml insulin glargine 100 unt/ml pen injector (20 sources) Insulin Analog Start: 10-20-2024 Insulin Glargi ne (Lantus Solostar U-100 Insulin) 100 unit/mL (3 mL) insulin pen Active 10 U SC DAILY 0 1 October 20, 2024 11:14am Start: 06-08-2023 End: 10-20-2024 Insulin Glargine (Lantus Rafia ostar U-100 Insulin) 100 unit/mL (3 mL) insulin pen Discontinued 43 U SC DAILY June 08, 2023 1:00am October 20, 2024 11:14am Start: 06-08-2023 Insulin Glargi ne (Lantus Solostar [...] takes 46 units twice daily INSULIN GLARGINE [id number] Rachael Newman MD Start: 04-06-2015 End: 09-26-2017 Insulin Glargine 100 UNIT/ML solution Discontinued 76 U SC AT BEDTIME April 06, 2015 1:00am September 26, 2017 3:18pm lidocaine 0.04 mg/mg medicated patch (10 sources) Antiarrhythmic, Amide Local Anesthetic Start: 10-19-2024 Lidocaine (Aspercrem e (Lidocaine)) 4 % adhesive patch,medicated Active 1 NMA TOPICAL TWICE A DAY as needed for pain October 19, 2024 12:00am Start: 06-08-2023 End: 10-18-2024 Lidocaine (Dermacinrx Lidoca n) 5 % adhesive patch,medicated Discontinued 1 NMA TOPICAL DAILY June 08, 2023 1:00am October 18, 2024 6:08pm leave on most painful area for up to 12 hrs linaclotide 0.29 mg oral capsule (10 sources) Guanylate Cyclase-C Agonist Start: 06-05-2023 take 1 capsule by mouth once daily Linaclotide (Linzess) 290 mcg capsule Active 290 ug PO DAILY June 05, 2023 1:00am metFORMIN hydrochloride 1000 mg oral tablet (12 sources) Biguanide Start: 10-18-2024 take 1 tablet by mouth twice daily Metformin 1,000 mg tablet Active 1000 mg PO TWICE A DAY October 18, 2024 12:00am On Hold: Resume on 10/26/24. Start: 06-05-2023 End: 10-18-2024 Metformin 750 mg tablet exte nded release 24 hr Discontinued 1000 mg PO TWICE A DAY June 05, 2023 1:00am October 18, 2024 6:03pm Start: 06-05-2023 take 1 tablet by rufina twice daily Metformin 750 mg tablet extended release 24 hr Active 750 mg PO TWICE A DAY June 05, 2023 1:00am Start: 06-05-2023 Metformin Acti ve MG PO June 05, 2023 12:00am ondansetron 4 mg disintegrating oral tablet (2 sources) Serotonin-3 Receptor Antagonist Start: 10-18-2024 take 1 tablet by mouth every six hours as needed for nausea and vomiting Ondansetron 4 mg tablet,disintegrating Active 4 mg PO EVERY 6 HOURS as needed for nausea and vomiting October 18, 2024 12:00am polyethylene glycol 3350 98968 mg powder for oral solution (11 sources) Osmotic Laxative Start: 10-18-2024 Polyethylene Glycol 3350 (Clearlax) 17 gram/dose powder Active 17 g PO EVERY OTHER DAY October 18, 2024 12:00am Start: 06-08-2023 End: 10-18-2024 Polyethylene Glycol 3350 (Cl earlax) 17 gram/dose powder Discontinued 17 g PO DAILY as needed for constipation June 08, 2023 1:00am October 18, 2024 6:08pm microencapsulated potassium chloride 20 meq extended release oral tablet (10 sources) Start: 06-05-2023 take 2 tablets by mouth once daily Potassium Chloride 20 mEq tablet,ER particles/crystals Active 40 meq PO DAILY June 05, 2023 1:00am Start: 06-05-2023 take 40 mEq by mouth once curly y Potassium Chloride Active 40 MEQ PO DAILY June 05, 2023 1:00am Completed/Discontinued Medications Medication Drug Class(es) Dates Sig (Normalized) Sig (Original) amoxicillin 500 mg oral capsule (1 source) Penicillin-class Antibacterial Start: 03-16-2019 AMOXICILLIN 500 MG CAPS takes as directed prior to dental procedures AMOXICILLIN [id number] Rachael Newman MD aspirin 325 mg oral [...] takes one tab once daily ATORVASTATIN CALCIUM [id number] Rachael Newman MD bacillus coagulans [id number] unt / inulin 250 mg oral capsule [...] Discontinued 2 g IV EVERY 24 HOURS 39 April 27, 2015 1:00am July 14, 2015 4:24pm diphenhydrAMINE hydrochloride 25 mg oral tablet (2 sources) Histamine-1 Receptor Antagonist Start: 03-16-2019 BANOPHEN 25 MG TABS takes one tab daily DIPHENHYDRAMINE HCL [id number] Rachael Newman MD Start: 03-16-2019 BENADRYL ALLER GY 25 MG CAPS takes one tab once daily DIPHENHYDRAMINE HCL [id number] Rachael Newman MD doxepin hydrochloride 10 mg oral capsule (1 source) Tricyclic Antidepressant Start: 03-16-2019 DOXEPIN HCL 10 MG CAPS takes two tabs daily DOXEPIN HCL [id number] Rachael Newman MD famotidine 20 mg oral [...] CAPS takes one tab once daily GABAPENTIN [id number] Rachael Newman MD Insulin Glargine 100 UNIT/ML solution (7 sources) Start: 12-16-2019 End: 08-24-2024 Insulin Glargine [...] sliding scale three times daily INSULIN ASPART [id number] Rachael Newman MD Start: 04-25-2015 End: 09-26-2017 [...] TABS takes one tab once daily LISINOPRIL [id number] Rachael Newman MD melatonin 3 mg oral tablet (20 sources) Start: 12-16-2019 End: 06-08-2023 take 1 tablet by mouth at bedtime Melatonin 3 MG tablet Discontinued 3 mg PO AT BEDTIME December 16, 2019 12:00am June 08, 2023 9:23am Start: 03-16-2019 MELATONIN 10 M G TABS takes one tab once daily MELATONIN [id number] Rachael Newman MD meloxicam 7.5 mg oral [...] CPDR takes one tab once daily OMEPRAZOLE [id number] Rachael Newman MD oxyCODONE hydrochloride 5 mg [...] mg tablet Discontinued 5 mg PO DAILY January 15, 2023 February 03, 2023 12:00am [...] mg PO THREE TIMES A DAY 90 7 June 11, 2022 January 15, 2023 5:56am Start: 03-16-2019 OXYCODONE HCL 10 MG TABS takes one tab three times daily as needed OXYCODONE HCL [id number] Rachael Newman MD Start: 07-14-2015 End: 09-20-2017 [...] July 14, 2015 4:25pm FOR BREAKTHROUGH PAIN Polyethylene Glycol 400 (Dry Eye Relief (Peg 400)) 1 % drops (9 sources) Start: 06-08-2023 End: 10-18-2024 take 1 drop(s) into the eye(s) every six hours as needed Polyethylene Glycol 400 (Dry Eye Relief (Peg 400)) 1 % drops Discontinued 1 NMA EACH EYE EVERY 6 HOURS as needed for dry eye(s) June 08, 2023 1:00am October 18, 2024 6:07pm Start: 06-08-2023 take 1 drop(s) into the [...] EVERY 6 HOURS June 08, 2023 12:00am promethazine hydrochloride 12.5 mg oral tablet (9 sources) Phenothiazine Start: 06-08-2023 End: 10-18-2024 take 1 tablet by mouth every six hours as needed for nausea and vomiting Promethazine 12.5 mg tablet Discontinued 12.5 mg PO EVERY 6 HOURS as needed for nausea and vomiting June 08, 2023 1:00am October 18, 2024 6:08pm raNITIdine 150 mg oral tablet (1 source) Histamine-2 Receptor Antagonist Start: 03-16-2019 RANITIDINE HCL 150 MG TABS takes one tab once daily RANITIDINE HCL [id number] Rachael Newman MD rOPINIRole 0.5 mg oral [...] venlafaxine 75 mg extended release oral capsule (10 sources) Serotonin and Norepinephrine Reuptake Inhibitor Start: [...] [Chronic kidney disease, stage 3 unspecified] Onset: 10-09-2024 Complication of device; implant or graft (20 sources) Prosthetic joint infection; Translations: [Infection and inflammatory reaction due to unspecified internal joint prosthesis, initial encounter] 12-16-2019 Episodic Diabetes mellitus with complications (10 sources) Hypoglycemia due to diabetes mellitus; Translations: [Type 2 diabetes mellitus with hypoglycemia without coma] Onset: 10-09-2024 10-18-2024 Chronic Diabetes mellitus without complication (20 sources) Type 2 diabetes mellitus; Translations: [Type 2 diabetes mellitus without complications] 12-16-2019 Chronic Diseases of white blood cells (2 sources) Leukocytosis; Translations: [Elevated white blood cell count, unspecified] 10-18-2024 Chronic Disorders of lipid metabolism (20 sources) Hyperlipidemia; Translations: [Hyperlipidemia, unspecified] 12-16-2019 Chronic E Codes: Fall (14 sources) Fall; Translations: [Unspecified fall, initial encounter] Onset: 10-26-2024 06-16-2023 Episodic Esophageal disorders (20 sources) Gastroesophageal reflux disease; Translations: [Gastro-esophageal reflux disease without esophagitis] 12-16-2019 Chronic Essential hypertension (20 sources) Hypertensive disorder; Translations: [Essential (primary) hypertension] 12-16-2019 Chronic Fluid and electrolyte disorders (20 sources) Hyperkalemia; Translations: [Hyperkalemia] 12-16-2019 Episodic Genitourinary symptoms and ill-defined conditions (2 sources) Abnormal urinalysis; Translations: [Unspecified abnormal findings in urine] 10-18-2024 Episodic Nutritional deficiencies (2 sources) Vitamin D deficiency, unspecified; Translations: [Vitamin D deficiency, unspecified] Onset: 05-08-2024 Chronic Open wounds of extremities (5 sources) Tear of skin; Translations: [Laceration without foreign body of unspecified forearm, initial encounter] Onset: 10-26-2024 10-18-2024 Episodic Open wounds of head; neck; and trunk (10 sources) Laceration of forehead; Translations: [Laceration without foreign body of other part of head, initial encounter] 06-05-2023 Episodic Osteoarthritis (1 source) Unilateral primary osteoarthritis, right knee; Translations: [Unilateral primary osteoarthritis, right knee] Onset: 08-27-2024 Chronic Other injuries and conditions due to external causes (10 sources) Closed injury of head; Translations: [Unspecified injury of head, initial encounter] 06-05-2023 Episodic Other nervous system disorders (20 sources) Chronic pain; Translations: [Other chronic pain] 12-18-2019 Chronic Other nervous system disorders (1 source) Chronic pain syndrome; Translations: [Chronic pain syndrome] Onset: 05-08-2024 Chronic Other non-traumatic joint disorders (7 sources) Pain in right knee; Translations: [Pain in both knees] 05-04-2024 Episodic Parkinson`s disease (20 sources) Parkinson's disease; Translations: [Parkinson's disease] 12-16-2019 Chronic Parkinson`s disease (2 sources) Parkinson`s disease; Translations: [Parkinson's disease without dyskinesia, without mention of fluctuations] Onset: 10-09-2024 Spondylosis; intervertebral disc disorders; other back problems (20 sources) Cervical spondylosis; Translations: [Lumbosacral spondylosis without myelopathy] Onset: 03-16-2019 03-16-2019 Chronic Superficial injury; contusion (19 sources) Contusion of upper limb; Translations: [Contusion of unspecified upper arm, initial encounter] Onset: 10-26-2024 06-16-2023 Episodic Urinary tract infections (4 sources) Acute urinary tract infection; Translations: [Urinary tract infection, site not specified] 10-18-2024 Episodic Past or Other Problems Problem Classification Problem Date Documented Da te Episodic/Chronic Residual codes; unclassified (1 source) Altered mental status, unspecified; Translations: [Altered mental status, unspecified] Onset: 07-14-2024 Episodic Skin and subcutaneous tissue infections (1 source) Cellulitis, unspecified; Translations: [Cellulitis, unspecified] Onset: 01-17-2024 Episodic Unclassified (1 source) Problem Results Test Name Value Interpretation Reference Range Facility Culture, Blood (WB)on 2024 CUB Blood cultures x2, from two different sites No growth in 5 days. Normal [facility] Comment on above: Performed By: #### L 501.080 #### [facility] [address] [place], [address] Bedside Glucoseon 10-20-2024 FINGERSTICK GLU 200 mg/dL High [address] Comment on above: Result Comment: JEWELS GEMENT OF PATIENT CARE PER NURSING PROTOCOL Performed By: #### L 501.080 #### [facility] [address] [place], [address] FINGERSTICK GLU 296 mg/dL High [address] [place] [address] Comment on above: Result Comment: JEWELS GEMENT OF PATIENT CARE PER NURSING PROTOCOL Performed By: #### L 501.080 #### [facility] [address] [place], [address] FINGERSTICK GLU 154 mg/dL High [address] [place] [address] Comment on above: Result Comment: JEWELS GEMENT OF PATIENT CARE PER NURSING PROTOCOL Performed By: #### L 501.080 #### [facility] [address] [place], [address] Glucose measurement at [facility] deOrdered By: Ángel Lam on 10-20-2024 Glucose [Mass/Vol] 200 mg/dL High 74-[address] [facility] Comment on above: MANAGEMENT OF PATIEN T CARE PER NURSING PROTOCOL Urine Cultureon 10-20-2024 [facility] Escherichia coli [place] Count 50,000-80,000 Escherichia coli: REACTION Ampicillin Islt BRANDEE >=32 Ampicillin+Sulbac Islt BRANDEE 8 S Cefepime Islt BRANDEE <=0.12 S cefTRIAXone Islt BRANDEE <=0.25 S Ciprofloxacin Islt BRANDEE <=0.06 S B-Lactamase Extended Susc Islt NEG Gentamicin Islt BRANDEE <=1 S levoFLOXacin Islt BRANDEE <=0.12 S Meropenem Islt BRANDEE <=0.25 S Nitrofurantoin Islt BRANDEE <=16 S Pip+Tazo Islt BRANDEE <=4 S TMP SMX Islt BRANDEE <=20 S Normal [facility] Comment on above: Performed By: #### L 501.080 #### [facility] [address] [place] [address], [id number] Absolute lymphocyte countOrd ered By: Anali Coello on 10-19-2024 Lymphocytes Auto (Unsp spec) [#/Vol] 1.48 10*3/uL 0.83-4.51 [facility] Absolute neutrophil countOrd ered By: Anali Coello on 10-19-2024 Neutrophils (Bld) [#/Vol] 4.8 10*3/uL 2.0-7.7 [facility] Anion gap in Serum or Plasma Ordered By: Anali Coello on 10-19-2024 Anion gap [Moles/Vol] 10 mmol/L 5-15 [facility] Automated lymphocyte count a s percentage of total leukocytesOrdered By: Anali Coello on 10-19-2024 Lymphocytes/100 WBC Auto (Unsp spec) 21.5 % 19-41 [facility] BUN/creatinine ratioOrdered By: Anali Coello on 10-19-2024 Urea nitrogen/Creatinine [Mass ratio] 11.3 mg/mg 10-20 [facility] Basophil percentageOrdered B y: Anali Coello on 10-19-2024 Basophils/100 WBC (Bld) 0.3 % 0-1 [facility] Bedside Glucoseon 10-19-2024 FINGERSTICK GLU 313 mg/dL High 74-106 [facility] Comment on above: Result Comment: JEWELS GEMENT OF PATIENT CARE PER NURSING PROTOCOL Performed By: #### L 501.080 #### [facility] [address] [place], [address] FINGERSTICK GLU 291 mg/dL High 74-106 [facility] Comment on above: Result Comment: JEWELS GEMENT OF PATIENT CARE PER NURSING PROTOCOL Performed By: #### L 501.080 #### [facility] [address] [place], [address] FINGERSTICK GLU 220 mg/dL High -106 [facility] Comment on above: Result Comment: JEWELS GEMENT OF PATIENT CARE PER NURSING PROTOCOL Performed By: #### L 501.080 #### [facility] [address] [place], [address] FINGERSTICK GLU 132 mg/dL High -[address] [place] [address] Comment on above: Result Comment: JEWELS GEMENT OF PATIENT CARE PER NURSING PROTOCOL Performed By: #### L 501.080 #### [facility] [address] [place], [address] FINGERSTICK GLU 112 mg/dL High [address] [place] [address] Comment on above: Result Comment: JEWELS GEMENT OF PATIENT CARE PER NURSING PROTOCOL Performed By: #### L 501.080 #### [facility] [address] [place], [address] FINGERSTICK GLU 177 mg/dL High 74-106 [facility] Comment on above: Result Comment: JEWELS GEMENT OF PATIENT CARE PER NURSING PROTOCOL Performed By: #### L 501.080 #### [facility] [address] [place], [address] FINGERSTICK GLU 170 mg/dL High 74-106 [facility] Comment on above: Result Comment: JEWELS GEMENT OF PATIENT CARE PER NURSING PROTOCOL Performed By: #### L 501.080 #### [facility] [address] [place], [address] FINGERSTICK GLU 135 mg/dL High 74-106 [facility] Comment on above: Result Comment: JEWELS RAJPUT OF PATIENT CARE PER NURSING PROTOCOL Performed By: #### L 501.080 #### [facility] [address] [place], [address] Bilirubin, totalOrdered By: Anali Coello on 10-19-2024 Bilirubin [Mass/Vol] 0.42 mg/dL 0.00-1.30 [facility] CBC W/Diff, Automatedon 10-04 Absolute Lymph 1.48 X10 3/uL Normal 0.83-4.51 [facility] Comment on above: Performed By: #### L 501.080 #### [facility] [address] [place], [address] Absolute Neut 4.8 X10 3/uL Normal 2.0-7.7 [facility] Comment on above: Performed By: #### L 501.080 #### [facility] [address] [place], [address] Basophils/100 WBC (Bld) 0.3 % Normal 0-1 [facility] Comment on above: Performed By: #### L 501.080 #### [facility] [address] [place], [address] Eosinophils/100 WBC (Bld) 0.6 % Normal 0-5 [facility] Comment on above: Performed By: #### L 501.080 #### [facility] [address] [place], [address] Erythrocyte distribution width (RBC) [Ratio] 12.9 % Normal 11.6-14.6 [facility] Comment on above: Performed By: #### L 501.080 #### [facility] [address] [place], [address] Hematocrit (Bld) [Volume fraction] 38.0 % Normal 37-47 [facility] Comment on above: Performed By: #### L 501.080 #### [facility] [address] [place], [address] Hemoglobin (Bld) [Mass/Vol] 12.4 g/dL Normal 12.0-15.0 [facility] Comment on above: Performed By: #### L 501.080 #### [facility] [address] [place], [address] IG% 0.300 Normal 0.0-0.9 [facility] Comment on above: Result Comment: IG% - Immature Granulocytes (promyelocytes, myelocytes and metamyelocytes) > 1% indicates that a LEFT SHIFT is Present. Performed By: #### L 501.080 #### [facility] [address] [place], [address] Lymphocytes/100 WBC (Bld) 21.5 % Normal 19-41 [facility] Comment on above: Performed By: #### L 501.080 #### [facility] [address] [place], [address] MCH (RBC) [Entitic mass] 29.7 pg Normal 27.0-32.0 [facility] Comment on above: Performed By: #### L 501.080 #### [facility] [address] [place], [address] MCHC (RBC) [Mass/Vol] 32.6 g/dL Normal 32-36 [facility] Comment on above: Performed By: #### L 501.080 #### [facility] [address] [place], [address] MCV (RBC) [Entitic vol] 90.9 fL Normal 81-99 [facility] Comment on above: Performed By: #### L 501.080 #### [facility] [address] [place], [address] Monocytes/100 WBC (Bld) 7.3 % Normal 0-10 [facility] Comment on above: Performed By: #### L 501.080 #### [facility] [address] [place], [address] Neutrophils/100 WBC (Bld) 70.0 % Normal 47-70 [facility] Comment on above: Performed By: #### L 501.080 #### [facility] [address] [place], [address] Nucleated RBC (Bld) [#/Vol] 0 10*3/uL Normal 0-5 [facility] Comment on above: Performed By: #### L 501.080 #### [facility] [address] [place], [address] Platelet mean volume (Bld) [Entitic vol] 9.4 fL Normal 6.2-12.0 [facility] Comment on above: Performed By: #### L 501.080 #### [facility] [address] [place], [address] Platelets (Bld) [#/Vol] 181 10*3/uL Normal 150-450 [facility] Comment on above: Performed By: #### L 501.080 #### [facility] [address] [place], [address] RBC (Bld) [#/Vol] 4.18 10*6/uL Low 4.2-5.4 [facility] Comment on above: Performed By: #### L 501.080 #### [facility] [address] [place], [address] RDW SD 42.5 fl Normal 35.1-43.9 [facility] Comment on above: Performed By: #### L 501.080 #### [facility] [address] [place], [address] WBC (Bld) [#/Vol] 6.9 10*3/uL Normal 4.4-11.[address] [facility] Comment on above: Performed By: #### L 501.080 #### [facility] [address] [place], [address] Carbon dioxide, total [Moles /volume] in Central venous bloodOrdered By: Anali Coello on 10-19-2024 CO2 [Moles/Vol] 23.7 mmol/L 21.0-32.0 [facility] Chloride assayOrdered By: Medina Coello on 10-19-2024 Chloride [Moles/Vol] 103 mmol/L 98-108 [facility] Comprehensive Metabolic Prof ilon 10-19-2024 Albumin [Mass/Vol] 3.6 g/dL Normal 3.4-4.[address] [facility] Comment on above: Performed By: #### L 501.080 #### [facility] [address] [place], [address] Albumin/Globulin [Mass ratio] 1.5 {ratio} Normal 0.9-2.4 [facility] Comment on above: Performed By: #### L 501.080 #### [facility] [address] [place], [address] ALK PHOS 44 U/L Normal 35-104 [facility] Comment on above: Performed By: #### L 501.080 #### [facility] [address] [place], [address] ALT [Catalytic activity/Vol] 9 U/L Normal <=34 [facility] Comment on above: Performed By: #### L 501.080 #### [facility] [address] [place], [address] AST [Catalytic activity/Vol] 24 U/L Normal <=31 [facility] Comment on above: Performed By: #### L 501.080 #### [facility] [address] [place], [address] Bilirubin [Mass/Vol] 0.42 mg/dL Normal 0.00-1.30 [facility] Comment on above: Performed By: #### L 501.080 #### [facility] [address] [place], [address] BUN/CRE 11.3 RATIO Normal 10-20 [facility] Comment on above: Performed By: #### L 501.080 #### [facility] [address] [place], [address] Calcium [Mass/Vol] 8.7 mg/dL Normal 7.6-11.[address] [facility] Comment on above: Performed By: #### L 501.080 #### [facility] [address] [place], [address] Chloride [Moles/Vol] 103 mmol/L Normal 98-108 [facility] Comment on above: Performed By: #### L 501.080 #### [facility] [address] [place], [address] CO2 [Moles/Vol] 23.7 mmol/L Normal 21.0-32.0 [facility] Comment on above: Performed By: #### L 501.080 #### [facility] [address] [place], [address] Creatinine [Mass/Vol] 0.55 mg/dL Low 0.70-1.20 [facility] Comment on above: Performed By: #### L 501.080 #### [facility] [address] [place], [address] ECRCL 45.71 ml/min Low 50-250 [facility] Comment on above: Performed By: #### L 501.080 #### [facility] [address] [place], [address] GAP 10 Normal 5-15 [facility] Comment on above: Performed By: #### L 501.080 #### [facility] [address] [place], [address] GFR/1.73 sq M.predicted among non-blacks MDRD (S/P/Bld) [Vol rate/Area] 92 mL/min/{1.73_m2} Normal >60 [facility] Comment on above: Result Comment: mL/m in/1.73m2 CKD-EPI Creatinine Equation (2020) Performed By: #### L 501.080 #### [facility] [address] [place], [address] Globulin (S) [Mass/Vol] 2.4 g/dL Normal 2.2-4.2 [facility] Comment on above: Performed By: #### L 501.080 #### [facility] [address] [place], [address] Glucose [Mass/Vol] 132 mg/dL High 70-[address] [facility] Comment on above: Performed By: #### L 501.080 #### [facility] [address] [place], [address] Potassium [Moles/Vol] 4.6 mmol/L Normal 3.3-5.1 [facility] Comment on above: Performed By: #### L 501.080 #### [facility] [address] [place], [address] Sodium [Moles/Vol] 136 mmol/L Normal 133-[address] [facility] Comment on above: Performed By: #### L 501.080 #### [facility] [address] [place], [address] T PROT 6.0 g/dL Normal 5.9-8.4 [facility] Comment on above: Performed By: #### L 501.080 #### [facility] [address] [place], [place], [address] Urea nitrogen [Mass/Vol] 6 mg/dL Normal 4-19 [facility] Comment on above: Performed By: #### L 501.080 #### [facility] [address] [place], [place], [address] Eosinophil percentageOrdered By: Anali Coello on 10-19-2024 Eosinophils/100 WBC (Bld) 0.6 % 0-5 [facility] Erythrocyte distribution wid th ratioOrdered By: Anali Coello on 10-19-2024 Erythrocyte distribution width (RBC) [Ratio] 12.9 % 11.6-14.6 [facility] Erythrocyte distribution wid th standard deviationOrdered By: Anali Coello on 10-19-2024 Erythrocyte distribution width (RBC) [Ratio] 42.5 fl 35.1-43.9 [facility] Glomerular filtration rate ( GFR) estimation/1.73 sq m using serum, plasma, or whole bOrdered By: nAali Coello on 10-19-2024 GFR/1.73 sq M.predicted among non-blacks MDRD (S/P/Bld) [Vol rate/Area] 92 mL/min/{1.73_m2} >60 [facility] Comment on above: mL/min/1.73m2 CKD-EP I Creatinine Equation (2020) Hematocrit Auto (Bld) [Volum e fraction]Ordered By: Anali Coello on 10-19-2024 Hematocrit (Bld) [Volume fraction] 38.0 % 37-47 [facility] Hemoglobin measurementOrdere d By: Anali Coello on 10-19-2024 Hemoglobin (Bld) [Mass/Vol] 12.4 g/dL 12.0-15.0 [facility] Immature granulocytes/100 WB C Auto (Bld)Ordered By: Anali Coello on 10-19-2024 Immature granulocytes/100 WBC (Bld) 0.300 % 0.0-0.9 [facility] Comment on above: IG% - Immature Granu locytes (promyelocytes, myelocytes and metamyelocytes) > 1% indicates that a LEFT SHIFT is Present. Laboratory - Chemistry and C hemistry - challengeOrdered By: Anali Coello on 10-19-2024 AST [Catalytic activity/Vol] 24 U/L <32 [facility] Lactic Acidon 10-19-2024 Lactate [Moles/Vol] 1.4 mmol/L Normal 0.0-2.0 [facility] Comment on above: Performed By: #### L 501.080 #### [facility] [address] [place], [place], [address] Lactic acid measurementOrder ed By: Zoltan Garcia on 10-19-2024 Lactate [Moles/Vol] 1.4 mmol/L 0.0-2.0 [facility] MCV (mean corpuscular volume ) determinationOrdered By: Anali Coello on 10-19-2024 MCV (RBC) [Entitic vol] 90.9 fL 81-99 [facility] Magnesiumon 10-19-2024 Magnesium [Mass/Vol] 1.7 mg/dL Normal 1.5-2.2 [facility] Comment on above: Performed By: #### L 501.080 #### [facility] [address] [place], [place], [address] Magnesium measurement (mass/ volume)Ordered By: Anali Coello on 10-19-2024 Magnesium (Unsp spec) [Mass/Vol] 1.7 mg/dL 1.5-2.2 [facility] Mean corpuscular hemoglobin (MCH) determinationOrdered By: Anali Coello on 10-19-2024 MCH (RBC) [Entitic mass] 29.7 pg 27.0-32.0 [facility] Mean corpuscular hemoglobin concentration (MCHC) determinationOrdered By: Anali Coello on 10-19-2024 MCHC (RBC) [Mass/Vol] 32.6 g/dL 32-36 [facility] Mean platelet volume determi nationOrdered By: nAali Coello on 10-19-2024 Platelet mean volume (Bld) [Entitic vol] 9.4 fL 6.2-12.0 [facility] Monocyte percentageOrdered B y: Anali Coello on 10-19-2024 Monocytes/100 WBC (Bld) 7.3 % 0-10 [facility] Neutrophil percentageOrdered By: Anali Coello on 10-19-2024 Neutrophils/100 WBC (Bld) 70.0 % 47-70 [facility] Nucleated red blood cell per centageOrdered By: Anali Coello on 10-19-2024 Nucleated RBC/100 WBC (Bld) [Ratio] 0 % 0-5 [facility] Phosphoruson 10-19-2024 Phosphate [Mass/Vol] 2.8 mg/dL Normal 2.7-4.5 [facility] Comment on above: Performed By: #### L 501.080 #### [facility] [address] [place], [address] Platelet countOrdered By: Medina Coello on 10-19-2024 Platelets (Bld) [#/Vol] 181 10*3/uL 150-450 [facility] Potassium measurement (mass/ volume)Ordered By: Anali Coello on 10-19-2024 Potassium (Unsp spec) [Mass/Vol] 4.6 mmol/L 3.3-5.1 [facility] RBC Auto (Bld) [#/Vol]Ordere d By: Anali Coello on 10-19-2024 RBC (Bld) [#/Vol] 4.18 10*6/uL Low 4.2-5.4 [facility] Serum creatinine measurement (mass/volume)Ordered By: Anali Coello on 10-19-2024 Creatinine [Mass/Vol] 0.55 mg/dL Low 0.70-1.20 [facility] Serum globulin measurementOr dered By: Anali Coello on 10-19-2024 Globulin (S) [Mass/Vol] 2.4 g/dL 2.2-4.2 [facility] Serum glucose measurement (m ass/volume)Ordered By: Anali Coello on 10-19-2024 Glucose [Mass/Vol] 132 mg/dL High 70-[address] [facility] Serum or plasma alanine rivera otransferase (ALT) measurementOrdered By: Anali Coello on 10-19-2024 ALT [Catalytic activity/Vol] 9 U/L <35 [facility] Serum or plasma albumin serge urement (mass/volume)Ordered By: Anali Coello on 10-19-2024 Albumin [Mass/Vol] 3.6 g/dL 3.4-4.[address] [facility] Serum or plasma albumin/glob ulin mass ratioOrdered By: Anali Coello on 10-19-2024 Albumin/Globulin [Mass ratio] 1.5 {ratio} 0.9-2.4 [facility] Serum or plasma alkaline stephane sphatase measurementOrdered By: Anali Coello on 10-19-2024 ALP [Catalytic activity/Vol] 44 U/L 35-104 [facility] Serum or plasma calcium serge urement (mass/volume)Ordered By: Anali Coello on 10-19-2024 Calcium [Mass/Vol] 8.7 mg/dL 7.6-11.[address] [facility] Serum or plasma urea nitroge n measurement (mass/volume)Ordered By: Anali Coello on 10-19-2024 Urea nitrogen [Mass/Vol] 6 mg/dL 4-19 [facility] Sodium levelOrdered By: Kayleen Coello on 10-19-2024 Sodium [Moles/Vol] 136 mmol/L 133-[address] [facility] TSH DL <= 0.005 mIU/L QnOrde red By: Anali Coello on 10-19-2024 TSH Qn 1.130 uIU/mL 0.300-4.200 [facility] Thyroid Stim Hormone (TSH)on 10-19-2024 TSH 1.130 uIU/mL Normal 0.300-4.200 [facility] Comment on above: Performed By: #### L 501.080 #### [facility] [address] [place], [place] [address], [address] Total proteinOrdered By: Connie Coello on 10-19-2024 Protein [Mass/Vol] 6.0 g/dL 5.9-8.[address] [facility] White blood cell (WBC) count Ordered By: Anali Coello on 10-19-2024 WBC (Bld) [#/Vol] 6.9 10*3/uL 4.4-11.[address] [facility] Absolute lymphocyte countOrd ered By: Zoltan Garcia on 10-18-2024 Lymphocytes Auto (Unsp spec) [#/Vol] 0.94 10*3/uL 0.83-4.51 [facility] Absolute neutrophil countOrd ered By: Zoltan Garcia on 10-18-2024 Neutrophils (Bld) [#/Vol] 17.9 10*3/uL High 2.0-7.7 [facility] Anion gap in Serum or Plasma Ordered By: Zoltan Garcia on 10-18-2024 Anion gap [Moles/Vol] 17 mmol/L High 5-15 [facility] Automated lymphocyte count a s percentage of total leukocytesOrdered By: Zoltan Garcia on 10-18-2024 Lymphocytes/100 WBC Auto (Unsp spec) 4.7 % Low 19-41 [facility] BUN/creatinine ratioOrdered By: Zoltan Garcia on 10-18-2024 Urea nitrogen/Creatinine [Mass ratio] 17.1 mg/mg 10-20 [facility] Basophil percentageOrdered B y: Zoltan Garcia on 10-18-2024 Basophils/100 WBC (Bld) 0.3 % 0-1 [facility] Bedside Glucoseon 10-18-2024 FINGERSTICK GLU 129 mg/dL High 74-106 [facility] Comment on above: Result Comment: JEWELS GEMENT OF PATIENT CARE PER NURSING PROTOCOL Performed By: #### L 501.080 #### [facility] [address] [facility] [address] FINGERSTICK GLU 119 mg/dL High 74-106 [facility] Comment on above: Result Comment: JEWELS GEMENT OF PATIENT CARE PER NURSING PROTOCOL Performed By: #### L 501.080 #### [facility] [address] [place], [address] FINGERSTICK GLU 98 mg/dL Normal 74-106 [facility] Comment on above: Result Comment: JEWELS GEMENT OF PATIENT CARE PER NURSING PROTOCOL Performed By: #### L 501.080 #### [facility] [address] [place], [address] FINGERSTICK GLU 72 mg/dL Low 74-106 [facility] Comment on above: Result Comment: JEWELS GEMENT OF PATIENT CARE PER NURSING PROTOCOL Performed By: #### L 501.080 #### [facility] [address] [place], [address] FINGERSTICK GLU 82 mg/dL Normal 74-106 [facility] Comment on above: Result Comment: JEWELS GEMENT OF PATIENT CARE PER NURSING PROTOCOL Performed By: #### L 501.080 #### [facility] [address] [facility] [place], [address] Bilirubin Test strip Ql (U)O rdered By: Zoltan Garcia on 10-18-2024 Bilirubin Ql (U) Negative Negative [facility] Bilirubin, totalOrdered By: Zoltan Garcia on 10-18-2024 Bilirubin [Mass/Vol] 0.33 mg/dL 0.00-1.30 [facility] Brain/Head without Contrasto n 10-18-2024 Brain/Head without Contrast [facility] [address] [place], [place] [address] Brain/Head without Contrast MR#: [id number] Acct: [id number] Name: JUSTUS CHINCHILLA Rep #: [id number] : 1940 F 84 From: Jorge Zurita PCP: Dr. Donato Sepulveda MD Status: REG ER Study: Brain/Head without Contrast Date of Exam: 10/04 09/27 Exam# [id number] Ordering Dr: Zoltan Garcia DO PROCEDURE: BRAIN/HEAD WITHOUT CONTRAST 10/18/2024 REASON FOR EXAM: TRAUMA TECHNIQUE: BRAIN/HEAD WITHOUT CONTRAST Coronal and Sagittal reconstruction series were provided. One or more dose reduction techniques were used (e.g., Automated exposure control, adjustment of the mA and/or kV according to patient size, use of iterative reconstruction technique. RADIATION DOSE SUMMARY: DLP: 779 mGycm COMPARISON: 06/08/2023 FINDINGS: There is no acute infarct, intracranial hemorrhage, or mass effect. There is no hydrocephalus or significant midline shift. There is [id number] chronic microvascular ischemic changes and rnnt-fl-blbhjxke parenchymal volume loss. No acute, depressed calvarial fractures. Mild anterior frontal scalp swelling. Bilateral lens surgeries. CT/Brain/Head without Contrast IMPRESSION: No acute intracranial process. Mild anterior frontal scalp swelling. No acute calvarial defect. Reading Location: [facility] CC: Dr. Zoltan Garcia DO; Dr. Donato Sepulveda MD Lead Generation Marketing Manager: Signed Normal [facility] CBC W/Diff, Automatedon 10-04 Absolute Lymph 0.94 X10 3/uL Normal 0.83-4.51 [facility] Comment on above: Performed By: #### L 501.080 #### [facility] [address] [place], [address] Absolute Neut 17.9 X10 3/uL High 2.0-7.7 [facility] Comment on above: Performed By: #### L 501.080 #### [facility] [address] [place], [address] Basophils/100 WBC (Bld) 0.3 % Normal 0-1 [facility] Comment on above: Performed By: #### L 501.080 #### [facility] [address] [place], [address] Eosinophils/100 WBC (Bld) 0.1 % Normal 0-5 [facility] Comment on above: Performed By: #### L 501.080 #### [facility] [address] [place], [address] Erythrocyte distribution width (RBC) [Ratio] 12.9 % Normal 11.6-14.6 [facility] Comment on above: Performed By: #### L 501.080 #### [facility] [address] [place], [address] Hematocrit (Bld) [Volume fraction] 48.0 % High 37-47 [facility] Comment on above: Performed By: #### L 501.080 #### [facility] [address] [place], [address] Hemoglobin (Bld) [Mass/Vol] 15.5 g/dL High 12.0-15.0 [facility] Comment on above: Performed By: #### L 501.080 #### [facility] [address] [place], [address] IG% 0.700 Normal 0.0-0.9 [facility] Comment on above: Result Comment: IG% - Immature Granulocytes (promyelocytes, myelocytes and metamyelocytes) > 1% indicates that a LEFT SHIFT is Present. Performed By: #### L 501.080 #### [facility] [address] [place], [address] Lymphocytes/100 WBC (Bld) 4.7 % Low 19-41 [facility] Comment on above: Performed By: #### L 501.080 #### [facility] [address] [place], [address] MCH (RBC) [Entitic mass] 29.4 pg Normal 27.0-32.0 [facility] Comment on above: Performed By: #### L 501.080 #### [facility] [address] [place], [address] MCHC (RBC) [Mass/Vol] 32.3 g/dL Normal 32-36 [facility] Comment on above: Performed By: #### L 501.080 #### [facility] [address] [place], [address] MCV (RBC) [Entitic vol] 90.9 fL Normal 81-99 [facility] Comment on above: Performed By: #### L 501.080 #### [facility] [address] [place], [address] Monocytes/100 WBC (Bld) 4.8 % Normal 0-10 [facility] Comment on above: Performed By: #### L [id number] #### [facility] [address] [place], [address] Neutrophils/100 WBC (Bld) 89.4 % High 47-70 [facility] Comment on above: Performed By: #### L 501.080 #### [facility] [address] [place], [address] Nucleated RBC (Bld) [#/Vol] 0 10*3/uL Normal 0-5 [facility] Comment on above: Performed By: #### L 501.080 #### [facility] [address] [place], [address] Platelet mean volume (Bld) [Entitic vol] 10.2 fL Normal 6.2-12.0 [facility] Comment on above: Performed By: #### L 501.080 #### [facility] [address] [place], [address] Platelets (Bld) [#/Vol] 326 10*3/uL Normal 150-450 [facility] Comment on above: Performed By: #### L 501.080 #### [facility] [address] [place], [address] RBC (Bld) [#/Vol] 5.28 10*6/uL Normal 4.2-5.4 [facility] Comment on above: Performed By: #### L 501.080 #### [facility] [address] [place], [address] RDW SD 43.0 fl Normal 35.1-43.9 [facility] Comment on above: Performed By: #### L 501.080 #### [facility] [address] [place], [address] WBC (Bld) [#/Vol] 20.0 10*3/uL High 4.4-11.0 [facility] Comment on above: Performed By: #### L 501.080 #### [facility] [address] [place] [place], [address] Carbon dioxide, total [Moles /volume] in Central venous bloodOrdered By: Zoltan Garcia on 10-18-2024 CO2 [Moles/Vol] 24.5 mmol/L 21.0-32.0 [facility] Chloride assayOrdered By: Bin Garcia on 10-18-2024 Chloride [Moles/Vol] 102 mmol/L 98-108 [facility] Emergency Department Summary on 10-18-2024 Emergency Department Summary [facility] Medical Records Department [address] [place] [address] Emergency Department Summary 10/18/24 MR#: [id number] Acct: [id number] Name: JUSTUS CHINCHILLA Rep #: [id number] : 1940 84 From: Zoltan Garcia DO PCP: Dr. Donato Sepulveda MD Status:ADM IN Location: [place] [address] HPI HPI - Fall History of Present Illness Chief Complaint: Fall Informant: patient, EMS and SNF Narrative Narrative: 84-year-old female presenting to the emergency room with head trauma and altered mental status. Reportedly had an unwitnessed fall and was found on the ground. There was a forehead hematoma and possible laceration as well as skin tear on the left arm. She was noted to be confused. EMS was called. They noted confusion of blood sugar of 32 and diaphoresis. Upon arrival in the emergency department after EMS treatment the patient is more alert. She is talkative. She has facial confusion but has appropriate thinking on direct questioning. Patient is a DNR comfort care/palliative care. She does have a history of diabetes. She does not know if she ate today. Patient takes oral hypoglycemics as well as insulin. [facility] Medical History (Updated 10/18/24 @ 21:[address] Anali Coello, DO) Parkinson disease Pain in both knees Vision problems Skin cancer GERD (gastroesophageal reflux disease) Osteopenia Osteoarthritis Neuropathy Heart murmur Liver disease Recurrent infections Hives High cholesterol HTN (hypertension) Chronic headaches Gallstones Type 2 diabetes mellitus Cataracts, bilateral Bladder cancer Recurrent UTI Back problem Asthma Arthritis Anxiety and depression Home Medications ???Medication ???Instructions ???Recorded ???Last Taken ???Type acetaminophen 325 mg tablet 325 mg PO BID CHRONIC PAIN 8 08/24/24 History dapagliflozin propanediol 10 mg 10 mg PO DAILY 06/05/23 08/24/24 H istory tablet (Farxiga) furosemide 20 mg tablet 20 mg PO DAILY 06/05/23 08/24/24 H istory linaclotide 290 mcg capsule 290 mcg PO DAILY 06/05/23 08/24/24 History (Linzess) potassium chloride 20 mEq 40 meq PO DAILY 06/05/23 08/24/24 History tablet,extended release(part/cryst) glucagon 1 mg solution for 1 mg IM PRN 06/08/23 Unknown Histo ry injection (Glucagon Emergency Kit) insulin glargine 100 unit/mL (3 43 unit subcut DAILY 06/08/2308/05 History mL) subcutaneous pen (Lantus Solostar U-100 Insulin) dulaglutide 4.5 mg/0.5 mL 4.5 mg subcut QWEEK 08/24/2408/19 History subcutaneous pen injector (Trulicity) oxycodone 5 mg tablet 5 mg PO BID pain 30 days #60 tabs 09/29/24 Unknown Rx acetaminophen 325 mg tablet 650 mg PO Q4H PRN fever or pain Unknown History aluminum-mag hydroxide-simethico ne 15 ml PO Q4H PRN indigestion Unknown History 400 mg-400 mg-40 mg/5 mL oral susp (Advanced Antacid-Antigas) cholecalciferol (vitamin D3) 50 50 mcg PO DAILY 10/18/24 Unknown H istory mcg (2,000 unit) tablet (D3 DOTS) dextran 70-hypromellose 0.1 %-0.3 1 drp EACH EYE BID 10/18/24 Unkno wn History % eye drops (GenTeal Tears Mild) metformin 1,000 mg tablet 1,000 mg PO BID 10/18/24 Unknown H istory ondansetron 4 mg disintegrating 4 mg PO Q6H PRN nausea and vomitin g 10/18/24 Unknown History tablet polyethylene glycol 3350 17 17 g PO QODAY 10/18/24 Unknown His tory gram/dose oral powder (ClearLax) Allergy/AdvReac Type Severity Reaction Status Date / Time sulfamethoxazole (From Allergy Rash Verified 08/24/24 08:34 Bactrim) trimethoprim (From Bactrim) Allergy Rash Verified 08/24/24 08:34 carbidopa (From Sinemet) AdvReac Nausea Verified 08/24/24 08:34 hydrocodone bitartrate (From AdvReac Nausea Verified 08/24/24 08:34 Vicodin) ketoprofen (From Orudis) AdvReac Unknown Verified 08/24/24 08:34 levodopa (From Sinemet) AdvReac Nausea Verified 08/24/24 08:34 lorazepam (From Ativan) AdvReac hallucinati Verified 08/24/24 08:34 on metformin HCl (From AdvReac Nausea Verified 08/24/24 08:34 Glucophage) naloxone AdvReac Nausea Verified 08/24/24 08:34 NSAIDS (Non-Steroidal AdvReac PT UNSURE Verified 08/24/24 08:34 Anti-Inflamma OF REACTION oxaprozin (From Daypro) AdvReac Nausea Verified 08/24/24 08:34 oxycodone HCl (From Percocet) AdvReac Nausea Verified 08/24/24 08:34 propoxyphene HCl (From AdvReac Nausea Verified 08/24/24 08:34 Darvon) rofecoxib (From Vioxx) AdvReac Nausea Verified 08/24/24 08:34 rosiglitazone maleate (From AdvReac Nausea Verified 08/24/24 08:34 Avandia) sertraline HCl (From Zoloft) AdvReac haullucinat Verified 08/24/24 08:34 ion simvastatin (From Zocor) AdvReac Nausea Verified 08/24/24 08:34 venlafaxine HCl (From AdvReac Nausea Verified 08/24/24 08:34 Effexor) Family History (Revie (more content not included)... Normal [facility] Eosinophil percentageOrdered By: Zoltan Garcia on 10-18-2024 Eosinophils/100 WBC (Bld) 0.1 % 0-5 [facility] Erythrocyte distribution wid th ratioOrdered By: Zoltan Garcia on 10-18-2024 Erythrocyte distribution width (RBC) [Ratio] 12.9 % 11.6-14.6 [facility] Erythrocyte distribution wid th standard deviationOrdered By: Zoltan Garcia on 10-18-2024 Erythrocyte distribution width (RBC) [Ratio] 43.0 fl 35.1-43.9 [facility] Glomerular filtration rate ( GFR) estimation/1.73 sq m using serum, plasma, or whole bOrdered By: Zoltan Garcia on 10-18-2024 GFR/1.73 sq M.predicted among non-blacks MDRD (S/P/Bld) [Vol rate/Area] 88 mL/min/{1.73_m2} >60 [facility] Comment on above: mL/min/1.73m2 CKD-EP I Creatinine Equation (2020) Glucose [facility] at [facility] deOrdered By: Anali Coello on 10-18-2024 Glucose [Mass/Vol] 129 mg/dL High 74-[address] [facility] Comment on above: MANAGEMENT OF PATIEN T CARE PER NURSING PROTOCOL H AND P Exam - Hospitaliston 10-18-2024 H&P Exam - Hospitalist [facility] Medical Records Department [address] [place] [address] H P Exam - Hospitalist 10/18/24 2108 MR#: [id number] Acct: [id number] Name: JUSTUS CHINCHILLA Madelyn Rep #: [id number] : 1940 84 From: Anali Coello DO PCP: Dr. Donato Sepulveda MD Status:ADM IN Location: [facility] [id number] HPI - General General Date of Admission: 10/18/24 Date of Service: 10/18/24 Chief Complaint: Fall/altered mental status HPI Narrative JUSTUS RENÉE, is a 84 F who presented to the emergency department at [facility] on 10/18/2024 with chief complaint of head trauma after a fall and altered mental status. Patient had an unwitnessed fall was found on the ground. She had a forehead hematoma with a small laceration as well as a skin tear on her left arm. She was noted to be markedly confused so the EMS was called. Blood sugar was assessed on arrival and was 32 patient was diaphoretic at that time as well. She was treated by the squad and after arrival to the emergency department she was more alert but still somewhat confused. By the time we were able to evaluate her she was very talkative and back to normal as she had been treated with dextrose via IV. She has baseline confusion per family and seems to be at her baseline at the time of my admission. She does have a history of diabetes and takes quite a bit of medication. Family reports that her oral intake is poor at the nursing facility. Patient states the food is "terrible." Patient unable to remember when the last time she ate today was. Vital signs on presentation showed temperature 97.9, heart rate 91, respiratory 13, blood pressure was 162/92 and pulse ox was 100% room air. CBC did show significant leukocytosis with a white count of 20,000. She does seem to be hemoconcentrated as her hemoglobin was also are elevated compared to her baseline from just about a week ago at 15.5 with her hemoglobin a week ago being 11.9. She does have a left shift with an 89.4% neutrophilia. Coags are normal. Chemistry panel shows mild hypokalemia with potassium of 3.2. Slight anion gap at 17 with a normal CO2. Renal function is normal. Glucose on BMP was 16. Lactic acid was 2.8. Liver functions are unremarkable. Urine is suggestive of infection and some dehydration with nitrite, leuk esterase, white cells, and 4+ bacteria. CT of the brain shows no acute infarct, cranial hemorrhage or mass effect. There are no signs of normal pressure hydrocephalus and mild to moderate chronic microvascular changes without area of mild anterior frontal scalp swelling. In the emergency department she was put on a D10 drip with improvement of her blood sugars. As her blood sugar improved her mentation improved as well. By the time of admission family thought that she was close to her baseline mentation. [facility] Medical History (Updated 10/18/24 @ 21:[address] Anali Coello DO) Parkinson disease Pain in both knees Vision problems Skin cancer GERD (gastroesophageal reflux disease) Osteopenia Osteoarthritis Neuropathy Heart murmur Liver disease Recurrent infections Hives High cholesterol HTN (hypertension) Chronic headaches Gallstones Type 2 diabetes mellitus Cataracts, bilateral Bladder cancer Recurrent UTI Back problem Asthma Arthritis Anxiety and depression Home Medications ???Medication ???Instructions ???Recorded ???Last Taken ???Type acetaminophen 325 mg tablet 325 mg PO BID CHRONIC PAIN 8 08/24/24 History dapagliflozin propanediol 10 mg 10 mg PO DAILY 06/05/23 08/24/24 H istory tablet (Farxiga) furosemide 20 mg tablet 20 mg PO DAILY 06/05/23 08/24/24 H istory linaclotide 290 mcg capsule 290 mcg PO DAILY 06/05/23 08/24/24 History (Linzess) potassium chloride 20 mEq 40 meq PO DAILY 06/05/23 08/24/24 History tablet,extended release(part/cryst) glucagon 1 mg solution for 1 mg IM PRN 06/08/23 Unknown Histo ry injection (Glucagon Emergency Kit) insulin glargine 100 unit/mL (3 43 unit subcut DAILY 06/08/2308/05 History mL) subcutaneous pen (Lantus Solostar U-100 Insulin) dulaglutide 4.5 mg/0.5 mL 4.5 mg subcut QWEEK 08/24/2408/19 History subcutaneous pen injector (Trulicity) oxycodone 5 mg tablet 5 mg PO BID pain 30 days #60 tabs 09/29/24 Unknown Rx acetaminophen 325 mg tablet 650 mg PO Q4H PRN fever or pain Unknown History aluminum-mag hydroxide-simethico ne 15 ml PO Q4H PRN indigestion Unknown History 400 mg-400 mg-40 mg/5 mL oral susp (Advanced Antacid-Antigas) cholecalciferol (vitamin D3) 50 50 mcg PO DAILY 10/18/24 Unknown H istory mcg (2,000 unit) tablet (D3 DOTS) dextran 70-hypromellose 0.1 %-0.3 1 drp EACH EYE BID 10/18/24 Unkno wn History % eye drops (GenTeal Tears Mild) metformin 1,000 mg tablet 1,000 mg PO BID 10/18/24 Unknown H i (more content not included)... Normal [facility] Hematocrit Auto (Bld) [Volum e fraction]Ordered By: Zoltan Garcia on 10-18-2024 Hematocrit (Bld) [Volume fraction] 48.0 % High 37-47 [facility] Hemoglobin measurementOrdere d By: Zoltan Garcia on 10-18-2024 Hemoglobin (Bld) [Mass/Vol] 15.5 g/dL High 12.0-15.0 [facility] Immature granulocytes/100 WB C Auto (Bld)Ordered By: Zoltan Garcia on 10-18-2024 Immature granulocytes/100 WBC (Bld) 0.700 % 0.0-0.9 [facility] Comment on above: IG% - Immature Granu locytes (promyelocytes, myelocytes and metamyelocytes) > 1% indicates that a LEFT SHIFT is Present. International normalized rat io (INR) calculationOrdered By: Zoltan Garcia on 10-18-2024 INR Coag (Bld) [Relative time] 1.0 {INR} [facility] Ketones Test strip Ql (U)Ord ered By: Zoltan Garcia on 10-18-2024 Ketones Ql (U) Negative Negative [facility] - Chemistry and C hemistry - challengeOrdered By: Zoltan Garcia on 10-18-2024 AST [Catalytic activity/Vol] 34 U/L High <32 [facility] Lactic Acidon 10-18-2024 Lactate [Moles/Vol] 2.8 mmol/L Invalid Interpretation Code 0.0-2.0 [facility] Comment on above: Order Comment: Y Result Comment: Crit ical Result(s) Called at: 2123 by:??REKHA LEMUS Results read back by same. Performed By: #### L 501.080 #### [facility] [employer] [address] [place], [place], [id number] Lactic acid measurementOrder ed By: Zoltan Garcia on 10-18-2024 Lactate [Moles/Vol] 2.8 mmol/L High 0.0-2.0 [facility] Comment on above: Critical Result(s) C alled at: 2123 by: REKHA LEMUS Results read back by same. MCV (mean corpuscular volume ) determinationOrdered By: Zoltan Garcia on 10-18-2024 MCV (RBC) [Entitic vol] 90.9 fL 81-99 [facility] Mean corpuscular hemoglobin (MCH) determinationOrdered By: Zoltan Garcia on 10-18-2024 MCH (RBC) [Entitic mass] 29.4 pg 27.0-32.0 [facility] Mean corpuscular hemoglobin concentration (MCHC) determinationOrdered By: Zoltan Garcia on 10-18-2024 MCHC (RBC) [Mass/Vol] 32.3 g/dL 32-36 [facility] Mean platelet volume determi nationOrdered By: Zoltan Garcia on 10-18-2024 Platelet mean volume (Bld) [Entitic vol] 10.2 fL 6.2-12.0 [facility] Microscopic analysis of urin e for red blood cells (RBC)Ordered By: Zoltan Garcia on 10-18-2024 Microscopic analysis of urine for red blood cells (RBC) 0 SEEN /hpf 0-5 [facility] Monocyte percentageOrdered B y: Zoltan Garcia on 10-18-2024 Monocytes/100 WBC (Bld) 4.8 % 0-10 [facility] Mucus LM Ql (Urine sed)Order ed By: Zoltan Garcia on 10-18-2024 Mucus Ql (Urine sed) 0 SEEN /hpf [facility] Neutrophil percentageOrdered By: Zoltan Garcia on 10-18-2024 Neutrophils/100 WBC (Bld) 89.4 % High 47-70 [facility] Nitrite Test strip Ql (U)Ord ered By: Zoltan Garcia on 10-18-2024 Nitrite Ql (U) Positive High Negative [facility] Nucleated red blood cell per centageOrdered By: Zoltan Garcia on 10-18-2024 Nucleated RBC/100 WBC (Bld) [Ratio] 0 % 0-5 [facility] Platelet countOrdered By: Bin Garcia on 10-18-2024 Platelets (Bld) [#/Vol] 326 10*3/uL 150-450 [facility] Potassium measurement (mass/ volume)Ordered By: Zoltan Garcia on 10-18-2024 Potassium (Unsp spec) [Mass/Vol] 3.2 mmol/L Low 3.3-5.1 [facility] Protein Test strip Ql (U)Ord ered By: Zoltan Garcia on 10-18-2024 Protein Ql (U) 30 mg/dl High Negative [facility] Prothrombin Time w/INRon INR Coag (PPP) [Relative time] 1.0 {INR} Normal [facility] Comment on above: Performed By: #### L 501.080 #### [facility] [address] [place], [place], [address] PT Coag (PPP) [Time] 13.4 s Normal 11.7-14.9 [facility] Comment on above: Performed By: #### L 501.080 #### [facility] [address] [place], [address] Prothrombin timeOrdered By: Zoltan Garcia on 10-18-2024 PT Coag (PPP) [Time] 13.4 s 11.7-14.9 [facility] RBC Auto (Bld) [#/Vol]Ordere d By: Zoltan Garica on 10-18-2024 RBC (Bld) [#/Vol] 5.28 10*6/uL 4.2-5.4 [facility] Serum creatinine measurement (mass/volume)Ordered By: Zoltan Garcia on 10-18-2024 Creatinine [Mass/Vol] 0.64 mg/dL Low 0.70-1.20 [facility] Serum globulin measurementOr dered By: Zoltan Garcia on 10-18-2024 Globulin (S) [Mass/Vol] 3.3 g/dL 2.2-4.2 [facility] Serum glucose measurement (m ass/volume)Ordered By: Zoltan Garcia on 10-18-2024 Glucose [Mass/Vol] 16 mg/dL Invalid Interpretation Code 70-99 [facility] Comment on above: Critical Result(s) C alled at: by: Results read back by same. Critical Result(s) Called at: 1854 by: REKHA GARCIA TO ERIN RUSSO Results read back by same.Previous reported result: 16 mg/dLEdited by: GINA on 10/18/24:0 AMENDED REPORT 10/18/[id number] GLU previously reported as: 16 *L mg/dL Critical Result(s) Called at: by: Results read back by same. Result Comment: Crit ical Result(s) Called at: by:??Results read back by same. Critical Result(s) Called at: 1854 by: REKHA GARCIA TO??ERIN RUSSO Results read back by same. AMENDED REPORT 10/18/[id number] GLU previously reported as: 16 *L mg/dL Critical Result(s) Called at: by:??Results read back by same. Performed By: #### L 501.080 #### [facility] [address] [place] [address], [address] Serum or plasma alanine rivera otransferase (ALT) measurementOrdered By: Zoltan Garcia on 10-18-2024 ALT [Catalytic activity/Vol] 13 U/L <35 [facility] Serum or plasma albumin serge urement (mass/volume)Ordered By: Zoltan Garcia on 10-18-2024 Albumin [Mass/Vol] 4.7 g/dL 3.4-4.[address] [facility] Serum or plasma albumin/glob ulin mass ratioOrdered By: Zoltan Garcia on 10-18-2024 Albumin/Globulin [Mass ratio] 1.4 {ratio} 0.9-2.4 [facility] Serum or plasma alkaline stephane sphatase measurementOrdered By: Zoltan Garcia on 10-18-2024 ALP [Catalytic activity/Vol] 60 U/L 35-104 [facility] Serum or plasma calcium serge urement (mass/volume)Ordered By: Zoltan Garcia on 10-18-2024 Calcium [Mass/Vol] 10.0 mg/dL 7.6-11.[address] [facility] Serum or plasma urea nitroge n measurement (mass/volume)Ordered By: Zoltan Garcia on 10-18-2024 Urea nitrogen [Mass/Vol] 11 mg/dL 4-19 [facility] Sodium levelOrdered By: Bebo Garcia on 10-18-2024 Sodium [Moles/Vol] 143 mmol/L 133-[address] [facility] Squamous epithelial cells de tection in urine sediment by light microscopyOrdered By: Zoltan Garcia on 10-18-2024 Epithelial cells.squamous LM Ql (Urine sed) 0-5 SEEN /hpf 5- [facility] Total proteinOrdered By: Jackson Garcia on 10-18-2024 Protein [Mass/Vol] 8.0 g/dL 5.9-8.[address] [facility] Urinalysis, Completeon 10-18 BACTERIA 4+ /hpf Normal None Seen [facility] Comment on above: Order Comment: ABEBE TER SPECIMEN Performed By: #### L 400.0001 #### [facility] [address] [place], [address] EPI,SQUAMOUS 0-5 SEEN Normal 5- [facility] Comment on above: Order Comment: ABEBE TER SPECIMEN Performed By: #### L 400.0001 #### [facility] [address] [place], [address] WBC 10-25 SEEN Normal 0-5 [facility] Comment on above: Order Comment: ABEBE TER SPECIMEN Performed By: #### L 400.0001 #### [facility] [address] [place], [address] Mucus Ql (Urine sed) 0 SEEN Normal [facility] Comment on above: Order Comment: ABEBE TER SPECIMEN Performed By: #### L 400.0001 #### [facility] [address] [place], [address] RBC 0 SEEN Normal 0-5 [facility] Comment on above: Order Comment: ABEBE TER SPECIMEN Performed By: #### L 400.0001 #### [facility] [address] [place], [address] Urine clarityOrdered By: Jackson Garcia on 10-18-2024 Clarity (U) Clear Clear [facility] Urine color determinationOrd ered By: Zoltan Garcia on 10-18-2024 Color (U) Yellow Yellow [facility] Urine cultureOrdered By: Jackson Garcia on 10-18-2024 Bacteria identified Cx Nom (U) Escherichia coli Abnormal [facility] Urine glucose detectionOrder ed By: Zoltan Garcia on 10-18-2024 Glucose Ql (U) 1000 mg/dl High Normal [facility] Urine leukocyte esterase det ection by dipstickOrdered By: Zoltan Garcia on 10-18-2024 Leukocyte esterase Test strip Ql (U) 25 /ul High Negative [facility] Urine pHOrdered By: Zoltan vela on 10-18-2024 pH (U) 6.5 [pH] 5.0 - 8.0 [facility] Urine sediment bacteria coun t by microscopy (number/high power field)Ordered By: Zoltan Garcia on 10-18-2024 Bacteria LM.HPF (Urine sed) [#/Area] 4 /[HPF] None Seen [facility] Urine specific gravity measu rementOrdered By: Zoltan Garcia on 10-18-2024 Specific gravity (U) [Rel density] 1.015 1.002-1.030 [facility] Urine urobilinogen measureme ntOrdered By: Zoltan Garcia on 10-18-2024 Urobilinogen Ql (U) Normal mg/dl Normal [facility] White blood cell (WBC) count Ordered By: Zoltan Garcia on 10-18-2024 WBC (Bld) [#/Vol] 20.0 10*3/uL High 4.4-11.0 [facility] White blood cell countOrdere d By: Zoltan Garcia on 10-18-2024 White blood cell count 10-25 SEEN /hpf 0-5 [facility] Anion gap in Serum or Plasma Ordered By: Donato Sepulveda on 10-06-2024 Anion gap [Moles/Vol] 10 mmol/L 5-15 [facility] BUN/creatinine ratioOrdered By: Donato Sepulveda on 10-06-2024 Urea nitrogen/Creatinine [Mass ratio] 21.9 mg/mg High 10-20 [facility] Bilirubin directOrdered By: Donato Sepulveda on 10-06-2024 Bilirubin.direct [Mass/Vol] 0.11 mg/dL 0.00-0.30 [facility] Bilirubin, totalOrdered By: Donato Sepulveda on 10-06-2024 Bilirubin [Mass/Vol] 0.24 mg/dL 0.00-1.30 [facility] Calculated very low density lipoprotein (VLDL) cholesterol measurementOrdered By: Donato Sepulveda on 10-06-2024 Calculated very low density lipoprotein (VLDL) cholesterol measurement 14 mg/dL 5-40 [facility] Carbon dioxide, total [Moles /volume] in Central venous bloodOrdered By: Donato Sepulveda on 10-06-2024 CO2 [Moles/Vol] 29.2 mmol/L 21.0-32.0 [facility] Chloride assayOrdered By: Livier Sepulveda on 10-06-2024 Chloride [Moles/Vol] 99 mmol/L 98-108 [facility] Erythrocyte distribution wid th ratioOrdered By: Donato Sepulveda on 10-06-2024 Erythrocyte distribution width (RBC) [Ratio] 12.8 % 11.6-14.6 [facility] Erythrocyte distribution wid th standard deviationOrdered By: Donato Sepulveda on 10-06-2024 Erythrocyte distribution width (RBC) [Ratio] 43.8 fl 35.1-43.9 [facility] Glomerular filtration rate ( GFR) estimation/1.73 sq m using serum, plasma, or whole bOrdered By: Donato Sepulveda on 10-06-2024 GFR/1.73 sq M.predicted among non-blacks MDRD (S/P/Bld) [Vol rate/Area] 79 mL/min/{1.73_m2} >60 [facility] Comment on above: mL/min/1.73m2 CKD-EP I Creatinine Equation (2020) Hematocrit Auto (Bld) [Volum e fraction]Ordered By: Donato Sepulveda on 10-06-2024 Hematocrit (Bld) [Volume fraction] 37.1 % 37-47 [facility] Hemoglobin A1c percentageOrd ered By: Donato Sepulveda on 10-06-2024 HbA1c (Bld) [Mass fraction] 9.5 % High <5.7 [facility] Comment on above: Normal < 5.7 % Predi abetic 5.7 - 6.4 % Diabetic >or= 6.5 % Please note range changes. Hemoglobin measurementOrdere d By: Donato Sepulveda on 10-06-2024 Hemoglobin (Bld) [Mass/Vol] 11.9 g/dL Low 12.0-15.0 [facility] LDL calc ser/plasOrdered By: Donato Sepulveda on 10-06-2024 Cholesterol in LDL [Mass/Vol] 92 mg/dL [facility] Comment on above: Gynnxtcthl=255-735 m g/dL & Higher Eglf=212 mg/dL or greater Laboratory - Chemistry and C hemistry - challengeOrdered By: Donato Sepulveda on 10-06-2024 AST [Catalytic activity/Vol] 19 U/L <32 [facility] MCV (mean corpuscular volume ) determinationOrdered By: Donato Sepulveda on 10-06-2024 MCV (RBC) [Entitic vol] 92.8 fL 81-99 [facility] Mean corpuscular hemoglobin (MCH) determinationOrdered By: Donato Sepulveda on 10-06-2024 MCH (RBC) [Entitic mass] 29.8 pg 27.0-32.0 [facility] Mean corpuscular hemoglobin concentration (MCHC) determinationOrdered By: Donato Sepulveda on 10-06-2024 MCHC (RBC) [Mass/Vol] 32.1 g/dL 32-36 [facility] Mean platelet volume determi nationOrdered By: Donato Sepulveda on 10-06-2024 Platelet mean volume (Bld) [Entitic vol] 10.8 fL 6.2-12.0 [facility] Platelet countOrdered By: Livier Sepulveda on 10-06-2024 Platelets (Bld) [#/Vol] 182 10*3/uL 150-450 [facility] Potassium measurement (mass/ volume)Ordered By: Donato Sepulveda on 10-06-2024 Potassium (Unsp spec) [Mass/Vol] 4.3 mmol/L 3.3-5.1 [facility] RBC Auto (Bld) [#/Vol]Ordere d By: Donato Sepulveda on 10-06-2024 RBC (Bld) [#/Vol] 4.00 10*6/uL Low 4.2-5.4 [facility] Screening total cholesterol/ high density lipoprotein (HDL) cholesterol ratioOrdered By: Donato Sepulveda on 10-06-2024 Cholesterol.total/Gabby sterol in HDL [Mass ratio] 2.80 {ratio} [facility] Serum creatinine measurement (mass/volume)Ordered By: Donato Sepulveda on 10-06-2024 Creatinine [Mass/Vol] 0.75 mg/dL 0.70-1.20 [facility] Serum globulin measurementOr dered By: Donato Sepulveda on 10-06-2024 Globulin (S) [Mass/Vol] 2.3 g/dL 2.2-4.2 [facility] Serum glucose measurement (m ass/volume)Ordered By: Donato Sepulveda on 10-06-2024 Glucose [Mass/Vol] 232 mg/dL High 70-[address] [facility] Serum or plasma alanine rivera otransferase (ALT) measurementOrdered By: Donato Sepulveda on 10-06-2024 ALT [Catalytic activity/Vol] 8 U/L <35 [facility] Serum or plasma albumin serge urement (mass/volume)Ordered By: Donato Sepulveda on 10-06-2024 Albumin [Mass/Vol] 3.7 g/dL 3.4-4.[address] [facility] Serum or plasma alkaline stephane sphatase measurementOrdered By: Donato Sepulveda on 10-06-2024 ALP [Catalytic activity/Vol] 50 U/L 35-104 [facility] Serum or plasma calcium serge urement (mass/volume)Ordered By: Donato Sepulveda on 10-06-2024 Calcium [Mass/Vol] 9.1 mg/dL 7.6-11.[address] [facility] Serum or plasma cholesterol in HDL measurement (mass/volume)Ordered By: Donato Sepulveda on 10-06-2024 Cholesterol in HDL [Mass/Vol] 59 mg/dL >40 [facility] Comment on above: National Cholesterol Education Program (NCEP) guidelines:<40 mg/dL: Low HDL-cholesterol (major risk factor for CHD)>= 60 mg/dL: High HDL-cholesterol (negative risk factor for CHD)HDL-cholesterol is affected by a number of factors, e.g. smoking, exercise, hormones, sex and age. Serum or plasma cholesterol measurement (mass/volume)Ordered By: Donato Sepulveda on 10-06-2024 Cholesterol [Mass/Vol] 164 mg/dL <201 [facility] Comment on above: Cholesterol level, D esirable <200 mg/dLBorderline high cholesterol 200-239 mg/dLHigh cholesterol >=240 mg/dLRecommendations of the NCEP Adult Treatment Panel for the following risk-cutoff thresholds for the [place] population. Serum or plasma urea nitroge n measurement (mass/volume)Ordered By: Donato Sepulveda on 10-06-2024 Urea nitrogen [Mass/Vol] 16 mg/dL 4-19 [facility] Sodium levelOrdered By: Raul Sepulveda on 10-06-2024 Sodium [Moles/Vol] 138 mmol/L 133-[address] [facility] Total proteinOrdered By: Sherwin Sepulveda on 10-06-2024 Protein [Mass/Vol] 6.0 g/dL 5.9-8.[address] [facility] Triglycerides measurementOrd ered By: Donato Sepulveda on 10-06-2024 Triglyceride [Mass/Vol] 68 mg/dL <199 [facility] Comment on above: The drugs N-Acetylcy steine and Metamizole may falsely depress this assay. Normal range: <150 mg/dLBorderline High: 150-199 mg/dLHigh: 200-499 mg/dLVery High: >500 mg/dL White blood cell (WBC) count Ordered By: Doanto Sepulveda on 10-06-2024 WBC (Bld) [#/Vol] 7.1 10*3/uL 4.4-11.[address] [facility] Hemoglobin A1c percentageOrd ered By: Donato Sepulveda on 09-08-2024 HbA1c (Bld) [Mass fraction] 8.8 % High <5.7 [facility] Comment on above: Normal < 5.7 % Predi abetic 5.7 - 6.4 % Diabetic >or= 6.5 % Please note range changes. Bedside Glucoseon 08-24-2024 FINGERSTICK GLU 240 mg/dL High 74-106 [facility] Comment on above: Result Comment: JEWELS RAJPUT OF PATIENT CARE PER NURSING PROTOCOL Performed By: #### L 501.080 #### [facility] [address] [place], [place], [address] Fluoro Guided Needle Placeme nton 08-24-2024 Fluoro Guided Needle Placement [facility] Imaging Services [address] [place], [place] [address] Fluoro Guided Needle Placement MR#: [id number] Acct: [id number] Name: JUSTUS CHINCHILLA Rep #: [id number] : 1940 F 84 From: Tomi metz MD PCP: Dr. Donato Sepulveda MD Status: [facility] Study: Fluoro Guided Needle Placement Date of Exam: 0 08/24/24 Exam# [id number] Ordering Dr: Armando Rich MD PROCEDURE: FLUORO GUIDED NEEDLE PLACEMENT 08/24/2024 REASON FOR EXAM: RT KNEE INJECTION TECHNIQUE: Intraoperative fluoroscopic services provided for right knee injection. 5.1 seconds of fluoroscopy. 0.85 mGy. 4 images were taken. COMPARISON: None FINDINGS: Intraoperative fluoroscopic services for knee injection. RAD/Fluoro Guided Needle Placement IMPRESSION: Fluoroscopic services provided for right knee injection. Reading Location: [place] [address] CC: Dr. Donato Sepulveda MD; Dr. Armando Rich MD Lead Generation Marketing Manager: Signed Normal [facility] deOrdered By: Armando Rich on 08-24-2024 Bedside Glucose (Misc Panel) 240 mg/dL High 74-106 [facility] Comment on above: MANAGEMENT OF PATIEN T CARE PER NURSING PROTOCOL Glucose [Mass/Vol] 240 mg/dL High 74-[address] [facility] Comment on above: MANAGEMENT OF PATIEN T CARE PER NURSING PROTOCOL Operative Reporton 5 Operative Report [facility] Medical Records Department [address] [place] [address] Operative Report 08/24/24 0932 MR#: [id number] Acct: [id number] Name: JUSTUS CHINCHILLA Rep #: [id number] : 1940 84 From: Armando Rich MD PCP: Dr. Donato Sepulveda MD Status:[facility] Location: [place] [address] Operative Report (Standard) Operative Information Date of Procedure: 08/24/24 Pre-Operative Diagnosis: Osteoarthritis of the right knee, chronic postoperative knee pain Post-Operative Diagnosis: Osteoarthritis of the right knee, chronic postoperative knee pain Surgery/Procedure Performed: Right knee superior medial/superior lateral/inferior medial genicular nerves steroid injection under fluoroscopic guidance outside sales associate: No Type of Anesthesia: Local RN Documented Start/Stop Times: Operation Date: 08/24/24 09:20 Case Time Into Pre-Op 08/24/24 08:32 Into Room 08/24/24 09:18 Procedure Start 08/24/24 09:24 Procedure End 08/24/24 09:28 Out of Room 08/24/24 09:30 Procedure Start Time: 09:33 Procedure Stop Time: 09:33 Select all DRAINS/GRAFTS/IMPLA NTS that apply: None Estimated Blood Loss: 1 [...] MD; Dr. Armando Rich MD Signed Normal [facility] Absolute lymphocyte countOrd ered By: Donato Sepulveda on 07-15-2024 Lymphocytes Auto (Unsp spec) [#/Vol] 1.27 10*3/uL 0.83-4.51 [facility] Absolute neutrophil countOrd ered By: Donato Sepulveda on 07-15-2024 Neutrophils (Bld) [#/Vol] 4.2 10*3/uL 2.0-7.7 [facility] Anion gap in Serum or Plasma Ordered By: Donato Sepulveda on 07-15-2024 Anion gap [Moles/Vol] 12 mmol/L 5-15 [facility] Automated lymphocyte count a s percentage of total leukocytesOrdered By: Donato Sepulveda on 07-15-2024 Lymphocytes/100 WBC Auto (Unsp spec) 21.1 % 19-41 [facility] BUN/creatinine ratioOrdered By: Donato Sepulveda on 07-15-2024 Urea nitrogen/Creatinine [Mass ratio] 17.5 mg/mg 10-20 [facility] Basophil percentageOrdered B y: Donato Sepulveda on 07-15-2024 Basophils/100 WBC (Bld) 0.5 % 0-1 [facility] Bilirubin Test strip Ql (U)O rdered By: Donato Sepulveda on 07-15-2024 Bilirubin Ql (U) Negative Negative [facility] Bilirubin, totalOrdered By: Donato Sepulveda on 07-15-2024 Bilirubin [Mass/Vol] 0.31 mg/dL 0.00-1.30 [facility] Carbon dioxide, total [Moles /volume] in Central venous bloodOrdered By: Donato Harjitbryan on 07-15-2024 CO2 [Moles/Vol] 28.3 mmol/L 21.0-32.0 [facility] Chloride assayOrdered By: Livier balaji Sepulveda on 07-15-2024 Chloride [Moles/Vol] 98 mmol/L 98-108 [facility] Eosinophil percentageOrdered By: Donato Sepulveda on 07-15-2024 Eosinophils/100 WBC (Bld) 1.7 % 0-5 [facility] Erythrocyte distribution wid th (RBC) [Ratio]Ordered By: Donato Sepulveda on 07-15-2024 Erythrocyte distribution width (RBC) [Entitic vol] 43.9 fL 35.1-43.9 [facility] Erythrocyte distribution wid th ratioOrdered By: Donato Sepulveda on 07-15-2024 Erythrocyte distribution width (RBC) [Ratio] 13.2 % 11.6-14.6 [facility] Erythrocyte distribution wid th standard deviationOrdered By: Donato Sepulveda on 07-15-2024 Erythrocyte distribution width (RBC) [Ratio] 43.9 fl 35.1-43.9 [facility] GFR/1.73 sq M.predicted maxime g non-blacks MDRD (S/P/Bld) [Vol rate/Area]Ordered By: Donato Sepulveda on 07-15-2024 Estimated GFR (MDRD) Non-Af Amer 88 >60 [facility] Comment on above: mL/min/1.73m2 CKD-EP I Creatinine Equation (2020) Glomerular filtration rate ( GFR) estimation/1.73 sq m using serum, plasma, or whole bOrdered By: Donato Sepulveda on 07-15-2024 GFR/1.73 sq M.predicted among non-blacks MDRD (S/P/Bld) [Vol rate/Area] 88 mL/min/{1.73_m2} >60 [facility] Comment on above: mL/min/1.73m2 CKD-EP I Creatinine Equation (2020) Glucose Ql (U)Ordered By: Livier Sepulveda on 07-15-2024 Glucose (U) [Mass/Vol] 1000 mg/dL High Normal [facility] Hematocrit Auto (Bld) [Volum e fraction]Ordered By: Donato Sepulveda on 07-15-2024 Hematocrit (Bld) [Volume fraction] 38.9 % 37-47 [facility] Hemoglobin measurementOrdere d By: Donato Sepulveda on 07-15-2024 Hemoglobin (Bld) [Mass/Vol] 12.6 g/dL 12.0-15.0 [facility] Immature granulocytes/100 WB C Auto (Bld)Ordered By: Donato Sepulveda on 07-15-2024 Immature granulocytes/100 WBC (Bld) 0.200 % 0.0-0.9 [facility] Comment on above: IG% - Immature Granu locytes (promyelocytes, myelocytes and metamyelocytes) > 1% indicates that a LEFT SHIFT is Present. Ketones Test strip Ql (U)Ord ered By: Donato Sepulveda on 07-15-2024 Ketones Ql (U) Negative Negative [facility] Laboratory - Chemistry and C hemistry - challengeOrdered By: Donato Sepulveda on 07-15-2024 AST [Catalytic activity/Vol] 18 U/L <32 [facility] Lymphocytes Auto (Unsp spec) [#/Vol]Ordered By: Donato Sepulveda on 07-15-2024 Lymphocytes (Bld) [#/Vol] 1.27 10*3/uL 0.83-4.51 [facility] Lymphocytes/100 WBC Auto (Un sp spec)Ordered By: Livierstudyanchar Lombardirjnoris on 07-15-2024 Lymphocytes/100 WBC (Bld) 21.1 % 19-41 [facility] MCV (mean corpuscular volume ) determinationOrdered By: Donato Sepulveda on 07-15-2024 MCV (RBC) [Entitic vol] 91.3 fL 81-99 [facility] Mean corpuscular hemoglobin (MCH) determinationOrdered By: Donato Sepulveda on 07-15-2024 MCH (RBC) [Entitic mass] 29.6 pg 27.0-32.0 [facility] Mean corpuscular hemoglobin concentration (MCHC) determinationOrdered By: Donato Sepulveda on 07-15-2024 MCHC (RBC) [Mass/Vol] 32.4 g/dL 32-36 [facility] Mean platelet volume determi nationOrdered By: Donato Lombardirjnoris on 07-15-2024 Platelet mean volume (Bld) [Entitic vol] 10.7 fL 6.2-12.0 [facility] Monocyte percentageOrdered B y: Donato Sepulveda on 07-15-2024 Monocytes/100 WBC (Bld) 7.5 % 0-10 [facility] Neutrophil percentageOrdered By: Donato Sepulveda on 07-15-2024 Neutrophils/100 WBC (Bld) 69.0 % 47-70 [facility] Nitrite Test strip Ql (U)Ord ered By: Donato Sepulveda on 07-15-2024 Nitrite Ql (U) Negative Negative [facility] Nucleated red blood cell per centageOrdered By: Donato Sepulveda on 07-15-2024 Nucleated RBC/100 WBC (Bld) [Ratio] 0 % 0-5 [facility] Platelet countOrdered By: Livier stumarcela Sepulveda on 07-15-2024 Platelets (Bld) [#/Vol] 188 10*3/uL 150-450 [facility] Potassium (Unsp spec) [Mass/ Vol]Ordered By: Donato Sepulveda on 07-15-2024 Potassium [Moles/Vol] 4.3 mmol/L 3.3-5.1 [facility] Potassium measurement (mass/ volume)Ordered By: Donato Sepulveda on 07-15-2024 Potassium (Unsp spec) [Mass/Vol] 4.3 mmol/L 3.3-5.1 [facility] Protein Test strip Ql (U)Ord ered By: Donato Sepulveda on 07-15-2024 Protein Ql (U) Negative Negative [facility] RBC Auto (Bld) [#/Vol]Ordere d By: Donato Sepulveda on 07-15-2024 RBC (Bld) [#/Vol] 4.26 10*6/uL 4.2-5.4 [facility] Serum creatinine measurement (mass/volume)Ordered By: Donato Sepulveda on 07-15-2024 Creatinine [Mass/Vol] 0.65 mg/dL Low 0.70-1.20 [facility] Serum globulin measurementOr dered By: Donato Sepulveda on 07-15-2024 Globulin (S) [Mass/Vol] 2.6 g/dL 2.2-4.2 [facility] Serum glucose measurement (m ass/volume)Ordered By: Donato Sepulveda on 07-15-2024 Glucose [Mass/Vol] 322 mg/dL High 70-[address] [facility] Serum or plasma alanine rivera otransferase (ALT) measurementOrdered By: Donato Sepulveda on 07-15-2024 ALT [Catalytic activity/Vol] 9 U/L <35 [facility] Serum or plasma albumin serge urement (mass/volume)Ordered By: Donato Sepulveda on 07-15-2024 Albumin [Mass/Vol] 3.9 g/dL 3.4-4.[address] [facility] Serum or plasma albumin/glob ulin mass ratioOrdered By: Donato Sepulveda on 07-15-2024 Albumin/Globulin [Mass ratio] 1.5 {ratio} 0.9-2.4 [facility] Serum or plasma alkaline stephane sphatase measurementOrdered By: Donato Sepulveda on 07-15-2024 ALP [Catalytic activity/Vol] 59 U/L 35-104 [facility] Serum or plasma calcium serge urement (mass/volume)Ordered By: Donato Sepulveda on 07-15-2024 Calcium [Mass/Vol] 9.6 mg/dL 7.6-11.[address] [facility] Serum or plasma urea nitroge n measurement (mass/volume)Ordered By: Donato Sepulveda on 07-15-2024 Urea nitrogen [Mass/Vol] 11 mg/dL 4-19 [facility] Sodium levelOrdered By: Raul Sepulveda on 07-15-2024 Sodium [Moles/Vol] 138 mmol/L 133-[address] [facility] Total proteinOrdered By: Sherwin Sepulveda on 07-15-2024 Protein [Mass/Vol] 6.6 g/dL 5.9-8.[address] [facility] Urine blood detectionOrdered By: Donato Sepulveda on 07-15-2024 Urine Occult Blood Negative Negative [facility] Urine clarityOrdered By: Sherwin Sepulveda on 07-15-2024 Clarity (U) Sl. 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 Abnormal [facility] Bacteria identified Cx Nom (U) Staphylococcus epidermidis Abnormal [facility] Urine glucose detectionOrder ed By: Donato Sepulveda on 07-15-2024 Glucose Ql (U) 1000 mg/dl High Normal [facility] Urine leukocyte esterase det ection by dipstickOrdered By: Donato Sepulveda on 07-15-2024 Leukocyte esterase Test strip Ql (U) Negative Negative [facility] Urine pHOrdered By: Harvey Sepulveda on 07-15-2024 pH (U) 7.0 [pH] 5.0 - 8.0 [facility] Urine specific gravity measu rementOrdered By: Donato Sepulveda on 07-15-2024 Specific gravity (U) [Rel density] 1.010 1.002-1.030 [facility] Urine urobilinogen measureme ntOrdered By: Donato Sepulveda on 07-15-2024 Urobilinogen Ql (U) 1 mg/dl High Normal [facility] Urobilinogen Ql (U)Ordered B y: Donato Sepulveda on 07-15-2024 Urobilinogen (U) [Mass/Vol] 1 mg/dL High Normal [facility] White blood cell (WBC) count Ordered By: Donato Sepulveda on 07-15-2024 WBC (Bld) [#/Vol] 6.0 10*3/uL 4.4-11.[address] [facility] Vitamin D, 25-hydroxyOrdered By: Donato Sepulveda on 07-14-2024 Vitamin D 25-Hydroxy 33.9 ng/mL 30-100 [facility] Comment on above: Vitamin D StatusDefi ciency: <20 ng/mL (50nmol/L)Insufficiency: 20-30 ng/mL (50-75 nmol/L)Sufficiency: 30-100 ng/mL (75-250 nmol/L)Toxicity: >100 ng/mL (>250 nmol/L) Bilirubin Test strip Ql (U)O rdered By: Donato Sepulveda on 06-15-2024 Bilirubin Ql (U) Negative Negative [facility] Glucose Ql (U)Ordered By: Livier Sepulveda on 06-15-2024 Glucose (U) [Mass/Vol] 1000 mg/dL High Normal [facility] Ketones Test strip Ql (U)Ord ered By: Donato Sepulveda on 06-15-2024 Ketones Ql (U) Negative Negative [facility] Nitrite Test strip Ql (U)Ord ered By: Donato Sepulveda on 06-15-2024 Nitrite Ql (U) Negative Negative [facility] Protein Test strip Ql (U)Ord ered By: Donato Sepulveda on 06-15-2024 Protein Ql (U) Negative Negative [facility] Urine blood detectionOrdered By: Donato Sepulveda on 06-15-2024 Urine Occult Blood 150 /ul High Negative [facility] Urine clarityOrdered By: Sherwin Sepulveda on 06-15-2024 Clarity (U) Clear Clear [facility] Urine color determinationOrd ered By: Donato Sepulveda on 06-15-2024 Color (U) Yellow Yellow [facility] Urine cultureOrdered By: Sherwin Sepulveda on 06-15-2024 Bacteria identified Cx Nom (U) Mixed Gram Pos & Gram Neg Org Abnormal [facility] Urine glucose detectionOrder ed By: Donato Sepulveda on 06-15-2024 Glucose Ql (U) 1000 mg/dl High Normal [facility] Urine leukocyte esterase det ection by dipstickOrdered By: Donato Sepulveda on 06-15-2024 Leukocyte esterase Test strip Ql (U) 25 /ul High Negative [facility] Urine pHOrdered By: Harvey Sepulveda on 06-15-2024 pH (U) 6.0 [pH] 5.0 - 8.0 [facility] Urine specific gravity measu rementOrdered By: Donato Sepulveda on 06-15-2024 Specific gravity (U) [Rel density] 1.010 1.002-1.030 [facility] Urine urobilinogen measureme ntOrdered By: Donato Sepulveda on 06-15-2024 Urobilinogen Ql (U) Normal mg/dl Normal [facility] Urobilinogen Ql (U)Ordered B y: Donato Sepulveda on 06-15-2024 Urine Urobilinogen Normal mg/dl Normal [facility] Hemoglobin A1c percentageOrd ered By: Donato Sepulveda on 06-09-2024 HbA1c (Bld) [Mass fraction] 8.6 % High 3.8-5.6 [facility] Comment on above: Normal < 5.7 % Predi abetic 5.7 - 6.4 % Diabetic >or= 6.5 % Please note range changes. 55-QT-Tydjfbs DOrdered By: Noris Sepulveda on 06-02-2024 Vitamin D 25-Hydroxy 53.0 ng/mL [facility] Comment on above: Vitamin D 25(OH) Sta tus Range Deficiency <20 ng/mL (50nmol/L) Insufficiency 20 - 30 ng/mL (50 - 75 nmol/L) Sufficiency 30 - 100 ng/mL (75 - 250 nmol/L) Toxicity >100 ng/mL (>250 nmol/L) 31-CL-Jpfjvvs DOrdered By: Noris Sepulveda on 04-21-2024 Vitamin D 25-Hydroxy 64.0 ng/mL [facility] Comment on above: Vitamin D 25(OH) Sta tus Range Deficiency <20 ng/mL (50nmol/L) Insufficiency 20 - 30 ng/mL (50 - 75 nmol/L) Sufficiency 30 - 100 ng/mL (75 - 250 nmol/L) Toxicity >100 ng/mL (>250 nmol/L) Basophil percentageOrdered B y: Donato Sepulveda on 08-06-2023 Bilirubin [Mass/Vol] 0.50 mg/dL 0.20-1.00 [facility] Comment on above: For patients on eltr ombopag therapy, use of Dimension Stow TBIL is not recommended. Chloride [Moles/Vol] 105 mmol/L 98-107 [facility] Glucose [Mass/Vol] 153 mg/dL 74-[address] [facility] Comment on above: Fasting Glucose resu lt greater than or equal to 126 mg/dL suggests DIABETES MELLITUS per A.D.A. criteria. Hemoglobin (Bld) [Mass/Vol] 12.4 g/dL 12.0-15.0 [facility] Potassium [Moles/Vol] 4.0 mmol/L 3.5-5.1 [facility] Protein [Mass/Vol] 6.7 g/dL 6.4-8.[address] [facility] Sodium [Moles/Vol] 139 mmol/L 136-[address] [facility] WBC (Bld) [#/Vol] 5.9 10*3/uL 4.4-11.[address] [facility] Determination of erythrocyte mean corpuscular volume (MCV)Ordered By: Donato Sepulveda on 08-06-2023 MCV (RBC) [Entitic vol] 92.5 fL 81-99 [facility] Erythrocyte distribution wid th ratioOrdered By: Livierjeff davis hospitalchar Sepulveda on 08-06-2023 Erythrocyte distribution width (RBC) [Ratio] 13.3 % 11.6-14.6 [facility] Erythrocyte distribution wid th standard deviationOrdered By: Raulkendall parkchar Sepulveda on 08-06-2023 Erythrocyte distribution width (RBC) [Entitic vol] 45.2 fL 35.1-43.9 [facility] Hematocrit Auto (Bld) [Volum e fraction]Ordered By: Raulkendall parkchar Sepulveda on 08-06-2023 Hematocrit (Bld) [Volume fraction] 39.7 % 37-47 [facility] Laboratory - Chemistry and C hemistry - challengeOrdered By: Livierjeff davis hospitalchar Sepulveda on 08-06-2023 Albumin/Globulin [Mass ratio] 1.0 {ratio} 0.9-2.4 [facility] ALP [Catalytic activity/Vol] 59 U/L 45-117 [facility] ALT [Catalytic activity/Vol] 13 U/L 13-56 [facility] CO2 [Moles/Vol] 29.0 mmol/L 21.0-32.0 [facility] Globulin (S) [Mass/Vol] 3.3 g/dL 2.2-4.2 [facility] Urea nitrogen/Creatinine [Mass ratio] 14.4 mg/mg 10-20 [facility] - Hematology and Cell countsOrdered By: Raulkendall parkchar Sepulveda on 08-06-2023 MCH (RBC) [Entitic mass] 28.9 pg 27.0-32.0 [facility] MCHC (RBC) [Mass/Vol] 31.2 g/dL 32-36 [facility] Platelet mean volume (Bld) [Entitic vol] 10.1 fL 6.2-12.0 [facility] Center Platelets (Bld) [#/Vol] 187 10*3/uL 150-450 [facility] No Panel InformationOrdered By: Donato Sepulveda on 08-06-2023 Estimated GFR (MDRD) Amer 94 mL/min >60 [facility] Comment on above: GFR Calc Estimated GFR (MDRD) Non-Af Amer 77 mL/min >60 [facility] Comment on above: Non- GFR Calc RBC Auto (Bld) [#/Vol]Ordere d By: Donato Sepulveda on 08-06-2023 RBC (Bld) [#/Vol] 4.29 10*6/uL 4.2-5.4 [facility] Serum or plasma calcium serge urement (mass/volume)Ordered By: Donato Sepulveda on 08-06-2023 Calcium [Mass/Vol] 9.0 mg/dL 8.5-10.[address] [facility] Serum or plasma creatinine m easurement (mass/volume)Ordered By: Donato Sepulveda on 08-06-2023 Creatinine [Mass/Vol] 0.76 mg/dL 0.55-1.02 [facility] Comment on above: The validity of the calculated GFR & GFRAA in patients over 70 years has not been determined. Clinical correlation is essential. Serum or plasma urea nitroge n measurement (mass/volume)Ordered By: Donato Sepulveda on 08-06-2023 Urea nitrogen [Mass/Vol] 11 mg/dL 7-18 [facility] Thin prep Papanicolaou smear with manual screeningOrdered By: Donato Sepulveda on 08-06-2023 Thin prep Papanicolaou smear with manual screening 3.4 g/dL 3.2-5.0 [facility] Thin prep Papanicolaou smear with manual screening 15 U/L 15-37 [facility] Thin prep Papanicolaou smear with manual screening 5 5-15 [facility] Basophil percentageOrdered B y: Donato Sepulveda on 06-11-2023 Bilirubin [Mass/Vol] 0.50 mg/dL 0.20-1.00 [facility] Comment on above: For patients on eltr ombopag therapy, use of Dimension Stow TBIL is not recommended. Chloride [Moles/Vol] 105 mmol/L 98-107 [facility] Glucose [Mass/Vol] 92 mg/dL 74-[address] [facility] Hemoglobin (Bld) [Mass/Vol] 12.1 g/dL 12.0-15.0 [facility] Potassium [Moles/Vol] 3.7 mmol/L 3.5-5.1 [facility] Protein [Mass/Vol] 6.9 g/dL 6.4-8.[address] [facility] Sodium [Moles/Vol] 140 mmol/L 136-[address] [facility] WBC (Bld) [#/Vol] 7.0 10*3/uL 4.4-11.[address] [facility] Determination of erythrocyte mean corpuscular volume (MCV)Ordered By: Donato Sepulveda on 06-11-2023 MCV (RBC) [Entitic vol] 92.6 fL 81-99 [facility] Erythrocyte distribution wid th ratioOrdered By: [facility] Harjitnoris on 06-11-2023 Erythrocyte distribution width (RBC) [Ratio] 12.5 % 11.6-14.6 [facility] Erythrocyte distribution wid th standard deviationOrdered By: [facility] on 06-11-2023 Erythrocyte distribution width (RBC) [Entitic vol] 42.4 fL 35.1-43.9 [facility] Hematocrit Auto (Bld) [Volum e fraction]Ordered By: Raulkendall parkchar Sepulveda on 06-11-2023 Hematocrit (Bld) [Volume fraction] 38.6 % 37-47 [facility] Laboratory - Chemistry and C hemistry - challengeOrdered By: Donato Sepulveda on 06-11-2023 Albumin/Globulin [Mass ratio] 0.8 {ratio} 0.9-2.4 [facility] ALP [Catalytic activity/Vol] 85 U/L 45-117 [facility] ALT [Catalytic activity/Vol] 18 U/L 13-56 [facility] CO2 [Moles/Vol] 29.0 mmol/L 21.0-32.0 [facility] Globulin (S) [Mass/Vol] 3.8 g/dL 2.2-4.2 [facility] Urea nitrogen/Creatinine [Mass ratio] 18.3 mg/mg 10-20 [facility] Laboratory - Hematology and Cell countsOrdered By: Raulkendall parkchar Sepulveda on 06-11-2023 MCH (RBC) [Entitic mass] 29.0 pg 27.0-32.0 [facility] MCHC (RBC) [Mass/Vol] 31.3 g/dL 32-36 [facility] Platelet mean volume (Bld) [Entitic vol] 11.0 fL 6.2-12.0 [facility] Platelets (Bld) [#/Vol] 190 10*3/uL 150-450 [facility] No Panel InformationOrdered By: Donato Sepulveda on 06-11-2023 Estimated GFR (MDRD) Amer 80 mL/min >60 [facility] Comment on above: GFR Calc Estimated GFR (MDRD) Non-Af Amer 66 mL/min >60 [facility] Comment on above: Non- GFR Calc Vitamin D 25-Hydroxy 29.3 ng/mL [facility] Comment on above: Vitamin D 25(OH) Sta tus Range Deficiency <20 ng/mL (50nmol/L) Insufficiency 20 - 30 ng/mL (50 - 75 nmol/L) Sufficiency 30 - 100 ng/mL (75 - 250 nmol/L) Toxicity >100 ng/mL (>250 nmol/L) RBC Auto (Bld) [#/Vol]Ordere d By: Donato Sepulveda on 06-11-2023 RBC (Bld) [#/Vol] 4.17 10*6/uL 4.2-5.4 [facility] Serum or plasma calcium serge urement (mass/volume)Ordered By: Donato Sepulveda on 06-11-2023 Calcium [Mass/Vol] 9.2 mg/dL 8.5-10.[address] [facility] Serum or plasma creatinine m easurement (mass/volume)Ordered By: Donato Sepulveda on 06-11-2023 Creatinine [Mass/Vol] 0.87 mg/dL 0.55-1.02 [facility] Comment on above: The validity of the calculated GFR & GFRAA in patients over 70 years has not been determined. Clinical correlation is essential. Serum or plasma urea nitroge n measurement (mass/volume)Ordered By: Donato Sepulveda on 06-11-2023 Urea nitrogen [Mass/Vol] 16 mg/dL 7-18 [facility] Thin prep Papanicolaou smear with manual screeningOrdered By: Donato Sepulveda on 06-11-2023 Thin prep Papanicolaou smear with manual screening 3.1 g/dL 3.2-5.0 [facility] Thin prep Papanicolaou smear with manual screening 18 U/L 15-37 [facility] Thin prep Papanicolaou smear with manual screening 6 5-15 [facility] Whole blood hemoglobin A1c/t otal hemoglobin ratio (mass fraction)Ordered By: Donato Sepulveda on 06-11-2023 HbA1c (Bld) [Mass fraction] 8.7 % 3.8-5.6 [facility] Comment on above: Normal < 5.7 % Predi abetic 5.7 - 6.4 % Diabetic >or= 6.5 % Please note range changes. Absolute lymphocyte countOrd ered By: Colleen Walker on 06-05-2023 Lymphocytes Auto (Unsp spec) [#/Vol] 1.18 10*3/uL 0.83-4.51 [facility] Automated lymphocyte count a s percentage of total leukocytesOrdered By: Colleen Walker on 06-05-2023 Lymphocytes/100 WBC Auto (Unsp spec) 13.6 % 19-41 [facility] Basophil percentageOrdered B y: Colleen Walker on 06-05-2023 Basophil percentage 5-10 SEEN /hpf 0-5 [facility] Basophils/100 WBC (Bld) 0.6 % 0-1 [facility] Chloride [Moles/Vol] 104 mmol/L 98-107 [facility] Eosinophils/100 WBC (Bld) 2.0 % 0-5 [facility] Glucose [Mass/Vol] 150 mg/dL 74-[address] [facility] Comment on above: Fasting Glucose resu lt greater than or equal to 126 mg/dL suggests DIABETES MELLITUS per A.D.A. criteria. Hemoglobin (Bld) [Mass/Vol] 13.2 g/dL 12.0-15.0 [facility] Monocytes/100 WBC (Bld) 7.2 % 0-10 [facility] Neutrophils (Bld) [#/Vol] 6.6 10*3/uL 2.0-7.7 [facility] Neutrophils/100 WBC (Bld) 76.3 % 47-70 [facility] Potassium [Moles/Vol] 3.6 mmol/L 3.5-5.1 [facility] Sodium [Moles/Vol] 137 mmol/L 136-[address] [facility] WBC (Bld) [#/Vol] 8.7 10*3/uL 4.4-11.[address] [facility] Bilirubin Test strip Ql (U)O rdered By: Colleen Walker on 06-05-2023 Bilirubin Ql (U) Negative Negative [facility] Determination of erythrocyte mean corpuscular volume (MCV)Ordered By: Colleen Walker on 06-05-2023 MCV (RBC) [Entitic vol] 92.9 fL 81-99 [facility] Erythrocyte distribution wid th ratioOrdered By: Colleen Walker on 06-05-2023 Erythrocyte distribution width (RBC) [Ratio] 12.6 % 11.6-14.6 [facility] Erythrocyte distribution wid th standard deviationOrdered By: Colleen Walker on 06-05-2023 Erythrocyte distribution width (RBC) [Entitic vol] 43.4 fL 35.1-43.9 [facility] Hematocrit Auto (Bld) [Volum e fraction]Ordered By: Colleen Walker on 06-05-2023 Hematocrit (Bld) [Volume fraction] 42.1 % 37-47 [facility] Immature granulocytes/100 WB C Auto (Bld)Ordered By: Colleen Walker on 06-05-2023 Immature granulocytes/100 WBC (Bld) 0.300 % 0.0-0.9 [facility] Comment on above: IG% - Immature Granu locytes (promyelocytes, myelocytes and metamyelocytes) > 1% indicates that a LEFT SHIFT is Present. Ketones Test strip Ql (U)Ord ered By: Colleen Walker on 06-05-2023 Ketones Ql (U) Negative Negative [facility] Laboratory - Chemistry and C hemistry - challengeOrdered By: Colleen Walker on 06-05-2023 CO2 [Moles/Vol] 32.0 mmol/L 21.0-32.0 [facility] Urea nitrogen/Creatinine [Mass ratio] 21.9 mg/mg 10-20 [facility] Laboratory - Hematology and Cell countsOrdered By: Colleen Walker on 06-05-2023 MCH (RBC) [Entitic mass] 29.1 pg 27.0-32.0 [facility] MCHC (RBC) [Mass/Vol] 31.4 g/dL 32-36 [facility] Nucleated RBC/100 WBC (Bld) [Ratio] 0 % 0-5 [facility] Platelets (Bld) [#/Vol] 180 10*3/uL 150-450 [facility] Mucus LM Ql (Urine sed)Order ed By: Colleen Walker on 06-05-2023 Mucus Ql (Urine sed) 0 SEEN /hpf [facility] Nitrite Test strip Ql (U)Ord ered By: Colleen Walker on 06-05-2023 Nitrite Ql (U) Negative Negative [facility] No Panel InformationOrdered By: Colleen Walker on 06-05-2023 Urine RBC 0 SEEN /hpf 0-5 [facility] Estimated Creatinine Clearance Calc 48.43 ml/min [facility] Estimated GFR (MDRD) Amer 92 mL/min >60 [facility] Comment on above: GFR Calc Estimated GFR (MDRD) Non-Af Amer 76 mL/min >60 [facility] Comment on above: Non- GFR Calc Platelet mean volume Jamie-Ec ker (Bld) [Entitic vol]Ordered By: Colleen Walker on 06-05-2023 Platelet mean volume (Bld) [Entitic vol] 10.3 fL 6.2-12.0 [facility] Protein Test strip Ql (U)Ord ered By: Colleen Walker on 06-05-2023 Protein Ql (U) 15 mg/dl Negative [facility] RBC Auto (Bld) [#/Vol]Ordere d By: Colleen Walker on 06-05-2023 RBC (Bld) [#/Vol] 4.53 10*6/uL 4.2-5.4 [place] [facility] Serum or plasma calcium serge urement (mass/volume)Ordered By: Colleen Walker on 06-05-2023 Calcium [Mass/Vol] 9.3 mg/dL 8.5-10.1 [facility] Serum or plasma creatinine m easurement (mass/volume)Ordered By: Colleen Walker on 06-05-2023 Creatinine [Mass/Vol] 0.78 mg/dL 0.55-1.02 [facility] Comment on above: The validity of the calculated GFR & GFRAA in patients over 70 years has not been determined. Clinical correlation is essential. Serum or plasma urea nitroge n measurement (mass/volume)Ordered By: Colleen Walker on 06-05-2023 Urea nitrogen [Mass/Vol] 17 mg/dL 7-18 [facility] Squamous epithelial cells de tection in urine sediment by light microscopyOrdered By: Colleen Walker on 06-05-2023 Epithelial cells.squamous LM Ql (Urine sed) 5-10 SEEN /hpf 5-10 [facility] Thin prep Papanicolaou smear with manual screeningOrdered By: Colleen Walker on 06-05-2023 Thin prep Papanicolaou smear with manual screening 1 5-15 [facility] Urine blood detectionOrdered By: Colleen Walker on 06-05-2023 RBC Ql (U) 50 /ul Negative [facility] Urine clarityOrdered By: Yadira Walker on 06-05-2023 Clarity (U) Sl. Cloudy Clear [facility] Urine color determinationOrd ered By: Colleen Walker on 06-05-2023 Color (U) Yellow Yellow [facility] Urine glucose detectionOrder ed By: Colleen Walker on 06-05-2023 Glucose Ql (U) 1000 mg/dl Normal [facility] Urine leukocyte esterase det ection by dipstickOrdered By: Colleen Walker on 06-05-2023 Leukocyte esterase Test strip Ql (U) 100 /ul Negative [facility] Urine pHOrdered By: Colleen ma on 06-05-2023 pH (U) 6.0 [pH] 5.0 - 8.0 [facility] Urine sediment bacteria coun t by microscopy (number/high power field)Ordered By: Colleen Walker on 06-05-2023 Bacteria LM.HPF (Urine sed) [#/Area] 0 /[HPF] None Seen [facility] Urine specific gravity measu rementOrdered By: Colleen Walker on 06-05-2023 Specific gravity (U) [Rel density] 1.015 1.002-1.030 [facility] Urine urobilinogen measureme ntOrdered By: Colleen Walker on 06-05-2023 Urobilinogen Ql (U) Normal mg/dl Normal [facility] Absolute lymphocyte countOrd ered By: Donato Sepulveda on 04-23-2023 Lymphocytes Auto (Unsp spec) [#/Vol] 1.27 10*3/uL 0.83-4.51 [facility] Basophil percentageOrdered B y: Donato Sepulveda on 04-23-2023 Basophils/100 WBC (Bld) 0.3 % 0-1 [facility] Chloride [Moles/Vol] 106 mmol/L 98-107 [facility] Eosinophils/100 WBC (Bld) 4.6 % 0-5 [facility] Glucose [Mass/Vol] 96 mg/dL 74-[address] [facility] Neutrophils (Bld) [#/Vol] 4.1 10*3/uL 2.0-7.7 [facility] Neutrophils/100 WBC (Bld) 67.6 % 47-70 [facility] Potassium [Moles/Vol] 3.7 mmol/L 3.5-5.1 [facility] Sodium [Moles/Vol] 141 mmol/L 136-[address] [facility] WBC (Bld) [#/Vol] 6.1 10*3/uL 4.4-11.[address] [facility] Blood erythrocytes count (nu mber/volume)Ordered By: Donato Sepulveda on 04-23-2023 RBC (Bld) [#/Vol] 4.10 10*6/uL 4.2-5.4 [facility] Blood hemoglobin measurement (mass/volume)Ordered By: Donato Sepulveda on 04-23-2023 Hemoglobin (Bld) [Mass/Vol] 12.0 g/dL 12.0-15.0 [facility] Blood lymphocytes/100 leukoc ytesOrdered By: Donato Sepulveda on 04-23-2023 Lymphocytes/100 WBC (Bld) 20.9 % 19-41 [facility] Blood monocytes/100 leukocyt esOrdered By: Donato Sepulveda on 04-23-2023 Monocytes/100 WBC (Bld) 6.1 % 0-10 [facility] Blood platelet mean volumeOr dered By: Donato Sepulveda on 04-23-2023 Platelet mean volume (Bld) [Entitic vol] 10.3 fL 6.2-12.0 [facility] Determination of erythrocyte mean corpuscular volume (MCV)Ordered By: Donato Sepulveda on 04-23-2023 MCV (RBC) [Entitic vol] 93.9 fL 81-99 [facility] Hematocrit Auto (Bld) [Volum e fraction]Ordered By: Raulkendall parkchar Sepulveda on 04-23-2023 Hematocrit (Bld) [Volume fraction] 38.5 % 37-47 [facility] Laboratory - Chemistry and C hemistry - challengeOrdered By: Raulkendall parkchar Sepulveda on 04-23-2023 CO2 [Moles/Vol] 32.0 mmol/L 21.0-32.0 [facility] Urea nitrogen/Creatinine [Mass ratio] 21.8 mg/mg 10-20 [facility] Laboratory - Hematology and Cell countsOrdered By: stukendall parkchar Sepulveda on 04-23-2023 Erythrocyte distribution width (RBC) [Entitic vol] 44.9 fL 35.1-43.9 [facility] Erythrocyte distribution width (RBC) [Ratio] 13.0 % 11.6-14.6 [facility] Immature granulocytes/100 WBC (Bld) 0.500 % 0.0-0.9 [facility] Comment on above: IG% - Immature Granu locytes (promyelocytes, myelocytes and metamyelocytes) > 1% indicates that a LEFT SHIFT is Present. MCH (RBC) [Entitic mass] 29.3 pg 27.0-32.0 [facility] Nucleated RBC/100 WBC (Bld) [Ratio] 0 % 0-5 [facility] MCHC Auto (RBC) [Mass/Vol]Or dered By: Donato Sepulveda on 04-23-2023 MCHC (RBC) [Mass/Vol] 31.2 g/dL 32-36 [facility] No Panel InformationOrdered By: Raulkendall parkchar Sepulveda on 04-23-2023 Estimated GFR (MDRD) Amer 106 mL/min >60 [facility] Comment on above: GFR Calc Estimated GFR (MDRD) Non-Af Amer 87 mL/min >60 [facility] Comment on above: Non- GFR Calc Platelets bldOrdered By: Sherwin lebron Derick on 04-23-2023 Platelets (Bld) [#/Vol] 207 10*3/uL 150-450 [facility] Serum or plasma calcium serge urement (mass/volume)Ordered By: Donato Sepulveda on 04-23-2023 Calcium [Mass/Vol] 9.3 mg/dL 8.5-10.[address] [facility] Serum or plasma creatinine m easurement (mass/volume)Ordered By: Donato Sepulveda on 04-23-2023 Creatinine [Mass/Vol] 0.69 mg/dL 0.55-1.02 [facility] Comment on above: The validity of the calculated GFR & GFRAA in patients over 70 years has not been determined. Clinical correlation is essential. Serum or plasma urea nitroge n measurement (mass/volume)Ordered By: Donato Sepulveda on 04-23-2023 Urea nitrogen [Mass/Vol] 15 mg/dL 7-18 [facility] Thin prep Papanicolaou smear with manual screeningOrdered By: Donato Sepulveda on 04-23-2023 Thin prep Papanicolaou smear with manual screening 3 5-15 [facility] Basophil percentageOrdered B y: Donato Sepulveda on 04-19-2023 Potassium [Moles/Vol] 4.3 mmol/L 3.5-5.1 [facility] Basophil percentageOrdered B y: Donato Sepulveda on 04-09-2023 Bilirubin [Mass/Vol] 0.30 mg/dL 0.20-1.00 [facility] Comment on above: For patients on eltr ombopag therapy, use of Dimension Stow TBIL is not recommended. Chloride [Moles/Vol] 106 mmol/L 98-107 [facility] Glucose [Mass/Vol] 55 mg/dL 74-[address] [facility] Potassium [Moles/Vol] 3.9 mmol/L 3.5-5.1 [facility] Protein [Mass/Vol] 7.2 g/dL 6.4-8.[address] [facility] Sodium [Moles/Vol] 139 mmol/L 136-[address] [facility] WBC (Bld) [#/Vol] 7.9 10*3/uL 4.4-11.[address] [facility] Blood erythrocytes count (nu mber/volume)Ordered By: Donato Sepulveda on 04-09-2023 RBC (Bld) [#/Vol] 4.36 10*6/uL 4.2-5.4 [facility] Blood hemoglobin measurement (mass/volume)Ordered By: Donato Sepulveda on 04-09-2023 Hemoglobin (Bld) [Mass/Vol] 12.7 g/dL 12.0-15.0 [facility] Blood platelet mean volumeOr dered By: Donato Sepulveda on 04-09-2023 Platelet mean volume (Bld) [Entitic vol] 10.9 fL 6.2-12.0 [facility] Determination of erythrocyte mean corpuscular volume (MCV)Ordered By: Donato Sepulveda on 04-09-2023 MCV (RBC) [Entitic vol] 94.5 fL 81-99 [facility] Hematocrit Auto (Bld) [Volum e fraction]Ordered By: Donato Sepulveda on 04-09-2023 Hematocrit (Bld) [Volume fraction] 41.2 % 37-47 [facility] Laboratory - Chemistry and C hemistry - challengeOrdered By: Donato Sepulveda on 04-09-2023 ALP [Catalytic activity/Vol] 90 U/L 45-117 [facility] ALT [Catalytic activity/Vol] 21 U/L 13-56 [facility] CO2 [Moles/Vol] 30.0 mmol/L 21.0-32.0 [facility] Globulin (S) [Mass/Vol] 3.7 g/dL 2.2-4.2 [facility] Urea nitrogen/Creatinine [Mass ratio] 22.9 mg/mg 10-20 [facility] Laboratory - Hematology and Cell countsOrdered By: Donato Sepulveda on 04-09-2023 Erythrocyte distribution width (RBC) [Entitic vol] 44.3 fL 35.1-43.9 [facility] Erythrocyte distribution width (RBC) [Ratio] 12.8 % 11.6-14.6 [facility] MCH (RBC) [Entitic mass] 29.1 pg 27.0-32.0 [facility] MCHC Auto (RBC) [Mass/Vol]Or dered By: Donato Sepulveda on 04-09-2023 MCHC (RBC) [Mass/Vol] 30.8 g/dL 32-36 [facility] No Panel InformationOrdered By: Donato Sepulveda on 04-09-2023 Estimated GFR (MDRD) Amer 97 mL/min >60 [facility] Comment on above: GFR Calc Estimated GFR (MDRD) Non-Af Amer 80 mL/min >60 [facility] Comment on above: Non- GFR Calc Platelets bldOrdered By: Sherwin Sepulveda on 04-09-2023 Platelets (Bld) [#/Vol] 212 10*3/uL 150-450 [facility] Serum or plasma albumin serge urement (mass/volume)Ordered By: Donato Sepulveda on 04-09-2023 Albumin [Mass/Vol] 3.5 g/dL 3.2-5.[address] [facility] Serum or plasma albumin/glob ulin mass ratioOrdered By: Donato Sepulveda on 04-09-2023 Albumin/Globulin [Mass ratio] 0.9 {ratio} 0.9-2.4 [facility] Serum or plasma calcium serge urement (mass/volume)Ordered By: Donato Sepulveda on 04-09-2023 Calcium [Mass/Vol] 9.4 mg/dL 8.5-10.[address] [facility] Serum or plasma creatinine m easurement (mass/volume)Ordered By: Donato Sepulveda on 04-09-2023 Creatinine [Mass/Vol] 0.74 mg/dL 0.55-1.02 [facility] Comment on above: The validity of the calculated GFR & GFRAA in patients over 70 years has not been determined. Clinical correlation is essential. Serum or plasma urea nitroge n measurement (mass/volume)Ordered By: Donato Sepulveda on 04-09-2023 Urea nitrogen [Mass/Vol] 17 mg/dL 7-18 [facility] Thin prep Papanicolaou smear with manual screeningOrdered By: Donato Sepulveda on 04-09-2023 Thin prep Papanicolaou smear with manual screening 19 U/L 15-37 [facility] Thin prep Papanicolaou smear with manual screening 3 5-15 [facility] No Panel InformationOrdered By: Donato Sepulveda on 03-12-2023 Vitamin D 25-Hydroxy 34.4 ng/mL [facility] Comment on above: Vitamin D 25(OH) Sta tus Range Deficiency <20 ng/mL (50nmol/L) Insufficiency 20 - 30 ng/mL (50 - 75 nmol/L) Sufficiency 30 - 100 ng/mL (75 - 250 nmol/L) Toxicity >100 ng/mL (>250 nmol/L) Whole blood hemoglobin A1c/t otal hemoglobin ratio (mass fraction)Ordered By: Donato Sepulveda on 03-12-2023 HbA1c (Bld) [Mass fraction] 7.4 % 3.8-5.6 [facility] Comment on above: Normal < 5.7 % Predi abetic 5.7 - 6.4 % Diabetic >or= 6.5 % Please note range changes. Basophil percentageOrdered B y: Donato Sepulveda on 02-05-2023 Bilirubin [Mass/Vol] 0.50 mg/dL 0.20-1.00 [facility] Comment on above: For patients on eltr ombopag therapy, use of Dimension Stow TBIL is not recommended. Chloride [Moles/Vol] 105 mmol/L 98-107 [facility] Glucose [Mass/Vol] 106 mg/dL 74-[address] [facility] Comment on above: Fasting Glucose resu lt from 100 to 125 mg/dL suggests IMPAIRED HOMEOSTASIS per A.D.A. criteria. Potassium [Moles/Vol] 4.2 mmol/L 3.5-5.1 [facility] Protein [Mass/Vol] 6.9 g/dL 6.4-8.[address] [facility] Sodium [Moles/Vol] 142 mmol/L 136-[address] [facility] WBC (Bld) [#/Vol] 6.0 10*3/uL 4.4-11.[address] [facility] Blood erythrocytes count (nu mber/volume)Ordered By: Donato Sepulveda on 02-05-2023 RBC (Bld) [#/Vol] 4.18 10*6/uL 4.2-5.4 [facility] Blood hemoglobin measurement (mass/volume)Ordered By: Donato Sepulveda on 02-05-2023 Hemoglobin (Bld) [Mass/Vol] 12.1 g/dL 12.0-15.0 [facility] Blood platelet mean volumeOr dered By: Donato Sepulveda on 02-05-2023 Platelet mean volume (Bld) [Entitic vol] 10.7 fL 6.2-12.0 [facility] Determination of erythrocyte mean corpuscular volume (MCV)Ordered By: Donato Sepulveda on 02-05-2023 MCV (RBC) [Entitic vol] 95.2 fL 81-99 [facility] Direct bilirubinOrdered By: Donato Sepulveda on 02-05-2023 Bilirubin.direct [Mass/Vol] 0.15 mg/dL 0.00-0.30 [facility] Hematocrit Auto (Bld) [Volum e fraction]Ordered By: Donato Sepulveda on 02-05-2023 Hematocrit (Bld) [Volume fraction] 39.8 % 37-47 [facility] Laboratory - Chemistry and C hemistry - challengeOrdered By: Donato Sepulveda on 02-05-2023 ALP [Catalytic activity/Vol] 73 U/L 45-117 [facility] ALT [Catalytic activity/Vol] 20 U/L 13-56 [facility] CO2 [Moles/Vol] 32.0 mmol/L 21.0-32.0 [facility] Globulin (S) [Mass/Vol] 3.5 g/dL 2.2-4.2 [facility] Urea nitrogen/Creatinine [Mass ratio] 20.8 mg/mg 10-20 [facility] Laboratory - Hematology and Cell countsOrdered By: Donato Sepulveda on 02-05-2023 Erythrocyte distribution width (RBC) [Entitic vol] 46.1 fL 35.1-43.9 [facility] Erythrocyte distribution width (RBC) [Ratio] 13.1 % 11.6-14.6 [facility] MCH (RBC) [Entitic mass] 28.9 pg 27.0-32.0 [facility] MCHC Auto (RBC) [Mass/Vol]Or dered By: Donato Sepulveda on 02-05-2023 MCHC (RBC) [Mass/Vol] 30.4 g/dL 32-36 [facility] No Panel InformationOrdered By: Donato Sepulveda on 02-05-2023 Estimated GFR (MDRD) Amer 93 mL/min >60 [facility] Comment on above: GFR Calc Estimated GFR (MDRD) Non-Af Amer 76 mL/min >60 [facility] Comment on above: Non- GFR Calc Platelets bldOrdered By: Sherwin Sepulveda on 02-05-2023 Platelets (Bld) [#/Vol] 183 10*3/uL 150-450 [facility] Serum or plasma albumin serge urement (mass/volume)Ordered By: Donato Sepulveda on 02-05-2023 Albumin [Mass/Vol] 3.4 g/dL 3.2-5.[address] [facility] Serum or plasma albumin/glob ulin mass ratioOrdered By: Donato Sepulveda on 02-05-2023 Albumin/Globulin [Mass ratio] 1.0 {ratio} 0.9-2.4 [facility] Serum or plasma calcium serge urement (mass/volume)Ordered By: Donato Sepulveda on 02-05-2023 Calcium [Mass/Vol] 9.4 mg/dL 8.5-10.[address] [facility] Serum or plasma creatinine m easurement (mass/volume)Ordered By: Donato Sepulveda on 02-05-2023 Creatinine [Mass/Vol] 0.77 mg/dL 0.55-1.02 [facility] Comment on above: The validity of the calculated GFR & GFRAA in patients over 70 years has not been determined. Clinical correlation is essential. Serum or plasma urea nitroge n measurement (mass/volume)Ordered By: Donato Sepulveda on 02-05-2023 Urea nitrogen [Mass/Vol] 16 mg/dL 7-18 [facility] Thin prep Papanicolaou smear with manual screeningOrdered By: Donato Sepulveda on 02-05-2023 Thin prep Papanicolaou smear with manual screening 18 U/L 15-37 [facility] Thin prep Papanicolaou smear with manual screening 5 5-15 [facility] Whole blood hemoglobin A1c/t otal hemoglobin ratio (mass fraction)Ordered By: Donato Sepulveda on 02-05-2023 HbA1c (Bld) [Mass fraction] 7.0 % 3.8-5.6 [facility] Comment on above: Normal < 5.7 % Predi abetic 5.7 - 6.4 % Diabetic >or= 6.5 % Please note range changes. Basophil percentageOrdered B y: Donato Sepulveda on 12-07-2022 Potassium [Moles/Vol] 4.7 mmol/L 3.5-5.1 [facility] Basophil percentageOrdered B y: Donato Sepulveda on 12-04-2022 Bilirubin [Mass/Vol] 0.30 mg/dL 0.20-1.00 [facility] Comment on above: For patients on eltr ombopag therapy, use of Dimension Stow TBIL is not recommended. Chloride [Moles/Vol] 102 mmol/L 98-107 [facility] Glucose [Mass/Vol] 219 mg/dL 74-[address] [facility] Comment on above: Glucose result great er than or equal to 200 mg/dLsuggests DIABETES MELLITUS per A.D.A. criteria. Potassium [Moles/Vol] 2.9 mmol/L 3.5-5.1 [facility] Protein [Mass/Vol] 6.6 g/dL 6.4-8.[address] [facility] Sodium [Moles/Vol] 137 mmol/L 136-[address] [facility] WBC (Bld) [#/Vol] 4.6 10*3/uL 4.4-11.[address] [facility] Blood erythrocytes count (nu mber/volume)Ordered By: Donato Sepulveda on 12-04-2022 RBC (Bld) [#/Vol] 4.22 10*6/uL 4.2-5.4 [facility] Blood hemoglobin measurement (mass/volume)Ordered By: Donato Sepulveda on 12-04-2022 Hemoglobin (Bld) [Mass/Vol] 12.4 g/dL 12.0-15.0 [facility] Blood platelet mean volumeOr dered By: Donato Sepulveda on 12-04-2022 Platelet mean volume (Bld) [Entitic vol] 10.7 fL 6.2-12.0 [facility] Determination of erythrocyte mean corpuscular volume (MCV)Ordered By: Donato Sepulveda on 12-04-2022 MCV (RBC) [Entitic vol] 93.8 fL 81-99 [facility] Hematocrit Auto (Bld) [Volum e fraction]Ordered By: Donato Sepulveda on 12-04-2022 Hematocrit (Bld) [Volume fraction] 39.6 % 37-47 [facility] Laboratory - Chemistry and C hemistry - challengeOrdered By: Donato Sepulveda on 12-04-2022 ALP [Catalytic activity/Vol] 85 U/L 45-117 [facility] ALT [Catalytic activity/Vol] 27 U/L 13-56 [facility] CO2 [Moles/Vol] 33.0 mmol/L 21.0-32.0 [facility] Globulin (S) [Mass/Vol] 3.6 g/dL 2.2-4.2 [facility] Urea nitrogen/Creatinine [Mass ratio] 13.7 mg/mg 10-20 [facility] Laboratory - Hematology and Cell countsOrdered By: Donato Sepulveda on 12-04-2022 Erythrocyte distribution width (RBC) [Entitic vol] 43.8 fL 35.1-43.9 [facility] Erythrocyte distribution width (RBC) [Ratio] 12.8 % 11.6-14.6 [facility] MCH (RBC) [Entitic mass] 29.4 pg 27.0-32.0 [facility] MCHC Auto (RBC) [Mass/Vol]Or dered By: Donato Sepulveda on 12-04-2022 MCHC (RBC) [Mass/Vol] 31.3 g/dL 32-36 [facility] No Panel InformationOrdered By: Donato Sepulveda on 12-04-2022 Estimated GFR (MDRD) Amer 80 mL/min >60 [facility] Comment on above: GFR Calc Estimated GFR (MDRD) Non-Af Amer 66 mL/min >60 [facility] Comment on above: Non- GFR Calc Vitamin D 25-Hydroxy 40.9 ng/mL [facility] Comment on above: Vitamin D 25(OH) Sta tus Range Deficiency <20 ng/mL (50nmol/L) Insufficiency 20 - 30 ng/mL (50 - 75 nmol/L) Sufficiency 30 - 100 ng/mL (75 - 250 nmol/L) Toxicity >100 ng/mL (>250 nmol/L) Platelets bldOrdered By: Sherwin Sepulveda on 12-04-2022 Platelets (Bld) [#/Vol] 167 10*3/uL 150-450 [facility] Serum or plasma albumin serge urement (mass/volume)Ordered By: Donato Sepulveda on 12-04-2022 Albumin [Mass/Vol] 3.0 g/dL 3.2-5.[address] [facility] Serum or plasma albumin/glob ulin mass ratioOrdered By: Donato Sepulveda on 12-04-2022 Albumin/Globulin [Mass ratio] 0.8 {ratio} 0.9-2.4 [facility] Serum or plasma calcium serge urement (mass/volume)Ordered By: Donato Sepulveda on 12-04-2022 Calcium [Mass/Vol] 8.6 mg/dL 8.5-10.[address] [facility] Serum or plasma creatinine m easurement (mass/volume)Ordered By: Donato Sepulveda on 12-04-2022 Creatinine [Mass/Vol] 0.88 mg/dL 0.55-1.02 [facility] Comment on above: The validity of the calculated GFR & GFRAA in patients over 70 years has not been determined. Clinical correlation is essential. Serum or plasma urea nitroge n measurement (mass/volume)Ordered By: Donato Sepulveda on 12-04-2022 Urea nitrogen [Mass/Vol] 12 mg/dL 7-18 [facility] Thin prep Papanicolaou smear with manual screeningOrdered By: Donato Sepulveda on 12-04-2022 Thin prep Papanicolaou smear with manual screening 31 U/L 15-37 [facility] Thin prep Papanicolaou smear with manual screening 2 5-15 [facility] Whole blood hemoglobin A1c/t otal hemoglobin ratio (mass fraction)Ordered By: Donato Sepulveda on 12-04-2022 HbA1c (Bld) [Mass fraction] 8.2 % 3.8-5.6 [facility] Comment on above: Normal < 5.7 % Predi abetic 5.7 - 6.4 % Diabetic >or= 6.5 % Please note range changes. Basophil percentageOrdered B y: Donato Sepulveda on 11-21-2022 Potassium [Moles/Vol] 3.3 mmol/L 3.5-5.1 [facility] Basophil percentageOrdered B y: Donato Sepulveda on 10-09-2022 Bilirubin [Mass/Vol] 0.40 mg/dL 0.20-1.00 [facility] Comment on above: For patients on eltr ombopag therapy, use of Dimension Stow TBIL is not recommended. Chloride [Moles/Vol] 104 mmol/L 98-107 [facility] Glucose [Mass/Vol] 135 mg/dL 74-[address] [facility] Comment on above: Fasting Glucose resu lt greater than or equal to 126 mg/dL suggests DIABETES MELLITUS per A.D.A. criteria. Potassium [Moles/Vol] 3.1 mmol/L 3.5-5.1 [facility] Protein [Mass/Vol] 6.5 g/dL 6.4-8.[address] [facility] Sodium [Moles/Vol] 141 mmol/L 136-[address] [facility] WBC (Bld) [#/Vol] 6.8 10*3/uL 4.4-11.[address] [facility] Blood erythrocytes count (nu mber/volume)Ordered By: Donato Sepulveda on 10-09-2022 RBC (Bld) [#/Vol] 3.95 10*6/uL 4.2-5.4 [facility] Blood hemoglobin measurement (mass/volume)Ordered By: Donato Sepulveda on 10-09-2022 Hemoglobin (Bld) [Mass/Vol] 11.7 g/dL 12.0-15.0 [facility] Blood platelet mean volumeOr dered By: Donato Sepulveda on 10-09-2022 Platelet mean volume (Bld) [Entitic vol] 10.7 fL 6.2-12.0 [facility] Determination of erythrocyte mean corpuscular volume (MCV)Ordered By: Donato Sepulveda on 10-09-2022 MCV (RBC) [Entitic vol] 94.4 fL 81-99 [facility] Hematocrit Auto (Bld) [Volum e fraction]Ordered By: Donato Sepulveda on 10-09-2022 Hematocrit (Bld) [Volume fraction] 37.3 % 37-47 [facility] Laboratory - Chemistry and C hemistry - challengeOrdered By: stukendall parkchar Sepulveda on 10-09-2022 ALP [Catalytic activity/Vol] 61 U/L 45-117 [facility] ALT [Catalytic activity/Vol] 16 U/L 13-56 [facility] CO2 [Moles/Vol] 34.0 mmol/L 21.0-32.0 [facility] Globulin (S) [Mass/Vol] 3.3 g/dL 2.2-4.2 [facility] Urea nitrogen/Creatinine [Mass ratio] 13.5 mg/mg 10-20 [facility] Laboratory - Hematology and Cell countsOrdered By: Raulkendall parkchar Sepulveda on 10-09-2022 Erythrocyte distribution width (RBC) [Entitic vol] 44.6 fL 35.1-43.9 [facility] Erythrocyte distribution width (RBC) [Ratio] 12.8 % 11.6-14.6 [facility] MCH (RBC) [Entitic mass] 29.6 pg 27.0-32.0 [facility] MCHC Auto (RBC) [Mass/Vol]Or dered By: Donato Sepulveda on 10-09-2022 MCHC (RBC) [Mass/Vol] 31.4 g/dL 32-36 [facility] No Panel InformationOrdered By: Dontao Sepulveda on 10-09-2022 Estimated GFR (MDRD) Amer 97 mL/min >60 [facility] Comment on above: GFR Calc Estimated GFR (MDRD) Non-Af Amer 80 mL/min >60 [facility] Comment on above: Non- GFR Calc Platelets bldOrdered By: Sherwin Sepulveda on 10-09-2022 Platelets (Bld) [#/Vol] 157 10*3/uL 150-450 [facility] Serum or plasma albumin serge urement (mass/volume)Ordered By: Donato Sepulveda on 10-09-2022 Albumin [Mass/Vol] 3.2 g/dL 3.2-5.[address] [facility] Serum or plasma albumin/glob ulin mass ratioOrdered By: Donato Sepulveda on 10-09-2022 Albumin/Globulin [Mass ratio] 1.0 {ratio} 0.9-2.4 [facility] Serum or plasma calcium serge urement (mass/volume)Ordered By: Donato Sepulveda on 10-09-2022 Calcium [Mass/Vol] 9.1 mg/dL 8.5-10.[address] [facility] Serum or plasma creatinine m easurement (mass/volume)Ordered By: Donato Sepulveda on 10-09-2022 Creatinine [Mass/Vol] 0.74 mg/dL 0.55-1.02 [facility] Comment on above: The validity of the calculated GFR & GFRAA in patients over 70 years has not been determined. Clinical correlation is essential. Serum or plasma urea nitroge n measurement (mass/volume)Ordered By: Donato Sepulveda on 10-09-2022 Urea nitrogen [Mass/Vol] 10 mg/dL 7-18 [facility] Thin prep Papanicolaou smear with manual screeningOrdered By: Donato Sepulveda on 10-09-2022 Thin prep Papanicolaou smear with manual screening 15 U/L 15-37 [facility] Thin prep Papanicolaou smear with manual screening 3 5-15 [facility] Basophil percentageOrdered B y: Basilio Flores on 10-05-2022 Cholesterol [Mass/Vol] 146 mg/dL <200 [facility] Comment on above: <200 mg/dL Desirable 200-240 mg/dL Borderline >240 mg/dL High Risk Triglyceride [Mass/Vol] 83 mg/dL <199 [facility] Comment on above: The drugs N-Acetylcy steine and Metamizole may falsely depress this assay.Serum Triglycerides Reference Interval Normal <150 mg/dL Borderline high 150 - 199 mg/dL High 200 - 499 mg/dL Very High > or = 500 mg/dL Serum or plasma cholesterol in HDL measurement (mass/volume)Ordered By: Basilio Flores on 10-05-2022 Cholesterol in HDL [Mass/Vol] 69 mg/dL >40 [facility] Comment on above: The drugs N-Acetylcy steine and Metamizole may falsely depress this assay. Reference Range HDL <40 mg/dL Low HDL Cholesterol HDL >or= 60 mg/dL High HDL Cholesterol Serum or plasma cholesterol in VLDL measurement (mass/volume)Ordered By: Basilio Flores on 10-05-2022 Cholesterol in VLDL [Mass/Vol] 17 mg/dL 5-40 [facility] Serum or plasma low density lipoprotein (LDL) cholesterol measurement (mass/volume)Ordered By: Basilio Flores on 10-05-2022 Cholesterol in LDL [Mass/Vol] 60 mg/dL 0-130 [facility] Basophil percentageOrdered B y: Donato Sepulveda on 10-04-2022 Cholesterol [Mass/Vol] 154 mg/dL <200 [facility] Comment on above: <200 mg/dL Desirable 200-240 mg/dL Borderline >240 mg/dL High Risk Triglyceride [Mass/Vol] 72 mg/dL <199 [facility] Comment on above: The drugs N-Acetylcy steine and Metamizole may falsely depress this assay.Serum Triglycerides Reference Interval Normal <150 mg/dL Borderline high 150 - 199 mg/dL High 200 - 499 mg/dL Very High > or = 500 mg/dL Serum or plasma cholesterol in HDL measurement (mass/volume)Ordered By: Donato Sepulveda on 10-04-2022 Cholesterol in HDL [Mass/Vol] 70 mg/dL >40 [facility] Comment on above: The drugs N-Acetylcy steine and Metamizole may falsely depress this assay. Reference Range HDL <40 mg/dL Low HDL Cholesterol HDL >or= 60 mg/dL High HDL Cholesterol Serum or plasma cholesterol in VLDL measurement (mass/volume)Ordered By: Donato Sepulveda on 10-04-2022 Cholesterol in VLDL [Mass/Vol] 14 mg/dL 5-40 [facility] Serum or plasma low density lipoprotein (LDL) cholesterol measurement (mass/volume)Ordered By: Donato Sepulveda on 10-04-2022 Cholesterol in LDL [Mass/Vol] 70 mg/dL 0-130 [facility] No Panel InformationOrdered By: Basilio Flores on 09-04-2022 Vitamin D 25-Hydroxy 54.3 ng/mL [facility] Comment on above: Vitamin D 25(OH) Sta tus Range Deficiency <20 ng/mL (50nmol/L) Insufficiency 20 - 30 ng/mL (50 - 75 nmol/L) Sufficiency 30 - 100 ng/mL (75 - 250 nmol/L) Toxicity >100 ng/mL (>250 nmol/L) Whole blood hemoglobin A1c/t otal hemoglobin ratio (mass fraction)Ordered By: Basilio Flores on 09-04-2022 HbA1c (Bld) [Mass fraction] 10.9 % 3.8-5.6 [facility] Comment on above: Normal < 5.7 % Predi abetic 5.7 - 6.4 % Diabetic >or= 6.5 % Please note range changes. Basophil percentageOrdered B y: Donato Sepulveda on 08-07-2022 Bilirubin [Mass/Vol] 0.60 mg/dL 0.20-1.00 [facility] Comment on above: For patients on eltr ombopag therapy, use of Dimension Stow TBIL is not recommended. Chloride [Moles/Vol] 98 mmol/L 98-107 [facility] Glucose [Mass/Vol] 432 mg/dL 74-[address] [facility] Comment on above: Glucose result great er than or equal to 200 mg/dLsuggests DIABETES MELLITUS per A.D.A. criteria. Potassium [Moles/Vol] 3.5 mmol/L 3.5-5.1 [facility] Protein [Mass/Vol] 6.8 g/dL 6.4-8.[address] [facility] Sodium [Moles/Vol] 136 mmol/L 136-[address] [facility] WBC (Bld) [#/Vol] 4.7 10*3/uL 4.4-11.[address] [facility] Blood erythrocytes count (nu mber/volume)Ordered By: Raulkendall parkchar Sepulveda on 08-07-2022 RBC (Bld) [#/Vol] 4.19 10*6/uL 4.2-5.4 [facility] Blood hemoglobin measurement (mass/volume)Ordered By: stukendall parkchar Sepulveda on 08-07-2022 Hemoglobin (Bld) [Mass/Vol] 12.2 g/dL 12.0-15.0 [facility] Blood platelet mean volumeOr dered By: [facility] [place] on 08-07-2022 Platelet mean volume (Bld) [Entitic vol] 10.5 fL 6.2-12.0 [facility] Determination of erythrocyte mean corpuscular volume (MCV)Ordered By: stukendall parkchar Sepulveda on 08-07-2022 MCV (RBC) [Entitic vol] 92.8 fL 81-99 [facility] Hematocrit Auto (Bld) [Volum e fraction]Ordered By: [facility] Derick on 08-07-2022 Hematocrit (Bld) [Volume fraction] 38.9 % 37-47 [facility] Laboratory - Chemistry and C hemistry - challengeOrdered By: [facility] Harjitnoris on 08-07-2022 ALP [Catalytic activity/Vol] 70 U/L 45-117 [facility] ALT [Catalytic activity/Vol] 19 U/L 13-56 [facility] CO2 [Moles/Vol] 36.0 mmol/L 21.0-32.0 [facility] Globulin (S) [Mass/Vol] 3.4 g/dL 2.2-4.2 [facility] Magnesium [Mass/Vol] 1.8 mg/dL 1.6-2.6 [facility] Urea nitrogen/Creatinine [Mass ratio] 15.1 mg/mg 10-20 [facility] Laboratory - Hematology and Cell countsOrdered By: [facility] Harjitnoris on 08-07-2022 Erythrocyte distribution width (RBC) [Entitic vol] 44.1 fL 35.1-43.9 [facility] Erythrocyte distribution width (RBC) [Ratio] 13.0 % 11.6-14.6 [facility] MCH (RBC) [Entitic mass] 29.1 pg 27.0-32.0 [facility] MCHC Auto (RBC) [Mass/Vol]Or dered By: Donato Sepulveda on 08-07-2022 MCHC (RBC) [Mass/Vol] 31.4 g/dL 32-36 [facility] No Panel InformationOrdered By: Donato Sepulveda on 08-07-2022 Estimated GFR (MDRD) Amer 64 mL/min >60 [facility] Comment on above: GFR Calc Estimated GFR (MDRD) Non-Af Amer 53 mL/min >60 [facility] Comment on above: Non- GFR Calc Platelets bldOrdered By: Sherwin Sepulveda on 08-07-2022 Platelets (Bld) [#/Vol] 165 10*3/uL 150-450 [facility] Serum or plasma albumin serge urement (mass/volume)Ordered By: Donato Sepulveda on 08-07-2022 Albumin [Mass/Vol] 3.4 g/dL 3.2-5.[address] [facility] Serum or plasma albumin/glob ulin mass ratioOrdered By: Donato Sepulveda on 08-07-2022 Albumin/Globulin [Mass ratio] 1.0 {ratio} 0.9-2.4 [facility] Serum or plasma calcium serge urement (mass/volume)Ordered By: Donato Sepulveda on 08-07-2022 Calcium [Mass/Vol] 9.7 mg/dL 8.5-10.[address] [facility] Serum or plasma creatinine m easurement (mass/volume)Ordered By: Donato Sepulveda on 08-07-2022 Creatinine [Mass/Vol] 1.06 mg/dL 0.55-1.02 [facility] Comment on above: The validity of the calculated GFR & GFRAA in patients over 70 years has not been determined. Clinical correlation is essential. Serum or plasma urea nitroge n measurement (mass/volume)Ordered By: Donato Sepulveda on 08-07-2022 Urea nitrogen [Mass/Vol] 16 mg/dL 7-18 [facility] Thin prep Papanicolaou smear with manual screeningOrdered By: Donato Sepulveda on 08-07-2022 Thin prep Papanicolaou smear with manual screening 15 U/L 15-37 [facility] Thin prep Papanicolaou smear with manual screening 2 5-15 [facility] Basophil percentageOrdered B y: Basilio Flores on 06-12-2022 Bilirubin [Mass/Vol] 1.10 mg/dL 0.20-1.00 [facility] Comment on above: For patients on eltr ombopag therapy, use of Dimension Stow TBIL is not recommended. Chloride [Moles/Vol] 99 mmol/L 98-107 [facility] Glucose [Mass/Vol] 163 mg/dL 74-[address] [facility] Comment on above: Fasting Glucose resu lt greater than or equal to 126 mg/dL suggests DIABETES MELLITUS per A.D.A. criteria. Potassium [Moles/Vol] 3.4 mmol/L 3.5-5.1 [facility] Protein [Mass/Vol] 7.4 g/dL 6.4-8.[address] [facility] Sodium [Moles/Vol] 141 mmol/L 136-[address] [facility] WBC (Bld) [#/Vol] 8.0 10*3/uL 4.4-11.[address] [facility] Blood erythrocytes count (nu mber/volume)Ordered By: Basilio Flores on 06-12-2022 RBC (Bld) [#/Vol] 4.53 10*6/uL 4.2-5.4 [facility] Blood hemoglobin measurement (mass/volume)Ordered By: Basilio Flores on 06-12-2022 Hemoglobin (Bld) [Mass/Vol] 13.2 g/dL 12.0-15.0 [facility] Blood platelet mean volumeOr dered By: Basilio Flores on 06-12-2022 Platelet mean volume (Bld) [Entitic vol] 10.4 fL 6.2-12.0 [facility] Determination of erythrocyte mean corpuscular volume (MCV)Ordered By: Basilio Flores on 06-12-2022 MCV (RBC) [Entitic vol] 90.5 fL 81-99 [facility] Hematocrit Auto (Bld) [Volum e fraction]Ordered By: Basilio Flores on 06-12-2022 Hematocrit (Bld) [Volume fraction] 41.0 % 37-47 [facility] Laboratory - Chemistry and C hemistry - challengeOrdered By: Basilio Flores on 06-12-2022 ALP [Catalytic activity/Vol] 88 U/L 45-117 [facility] ALT [Catalytic activity/Vol] 20 U/L 13-56 [facility] CO2 [Moles/Vol] 34.0 mmol/L 21.0-32.0 [facility] Globulin (S) [Mass/Vol] 3.7 g/dL 2.2-4.2 [facility] Urea nitrogen/Creatinine [Mass ratio] 15.1 mg/mg 10-20 [facility] Laboratory - Hematology and Cell countsOrdered By: Basilio Flores on 06-12-2022 Erythrocyte distribution width (RBC) [Entitic vol] 42.0 fL 35.1-43.9 [facility] Erythrocyte distribution width (RBC) [Ratio] 12.8 % 11.6-14.6 [facility] MCH (RBC) [Entitic mass] 29.1 pg 27.0-32.0 [facility] MCHC Auto (RBC) [Mass/Vol]Or dered By: Basilio Flores on 06-12-2022 MCHC (RBC) [Mass/Vol] 32.2 g/dL 32-36 [facility] No Panel InformationOrdered By: Basilio Flores on 06-12-2022 Estimated GFR (MDRD) Amer 82 mL/min >60 [facility] Comment on above: GFR Calc Estimated GFR (MDRD) Non-Af Amer 67 mL/min >60 [facility] Comment on above: Non- GFR Calc Vitamin D 25-Hydroxy 49.1 ng/mL [facility] Comment on above: Vitamin D 25(OH) Sta tus Range Deficiency <20 ng/mL (50nmol/L) Insufficiency 20 - 30 ng/mL (50 - 75 nmol/L) Sufficiency 30 - 100 ng/mL (75 - 250 nmol/L) Toxicity >100 ng/mL (>250 nmol/L) Platelets bldOrdered By: August Flores on 06-12-2022 Platelets (Bld) [#/Vol] 188 10*3/uL 150-450 [facility] Serum or plasma albumin serge urement (mass/volume)Ordered By: Basilio Flores on 06-12-2022 Albumin [Mass/Vol] 3.7 g/dL 3.2-5.[address] [facility] Serum or plasma albumin/glob ulin mass ratioOrdered By: Basilio Flores on 06-12-2022 Albumin/Globulin [Mass ratio] 1.0 {ratio} 0.9-2.4 [facility] Serum or plasma calcium serge urement (mass/volume)Ordered By: Basilio Flores on 06-12-2022 Calcium [Mass/Vol] 9.5 mg/dL 8.5-10.[address] [facility] Serum or plasma creatinine m easurement (mass/volume)Ordered By: Basilio Flores on 06-12-2022 Creatinine [Mass/Vol] 0.86 mg/dL 0.55-1.02 [facility] Comment on above: The validity of the calculated GFR & GFRAA in patients over 70 years has not been determined. Clinical correlation is essential. Serum or plasma urea nitroge n measurement (mass/volume)Ordered By: Basilio Flores on 06-12-2022 Urea nitrogen [Mass/Vol] 13 mg/dL 7-18 [facility] Thin prep Papanicolaou smear with manual screeningOrdered By: Baislio Flores on 06-12-2022 Thin prep Papanicolaou smear with manual screening 18 U/L 15-37 [facility] Thin prep Papanicolaou smear with manual screening 8 5-15 [facility] Whole blood hemoglobin A1c/t otal hemoglobin ratio (mass fraction)Ordered By: Basilio Flores on 06-12-2022 HbA1c (Bld) [Mass fraction] 9.2 % 3.8-5.6 [facility] Comment on above: Normal < 5.7 % Predi abetic 5.7 - 6.4 % Diabetic >or= 6.5 % Please note range changes. Basophil percentageOrdered B y: Donato Sepulveda on 04-17-2022 Chloride [Moles/Vol] 97 mmol/L 98-107 [facility] Glucose [Mass/Vol] 328 mg/dL 74-[address] [facility] Comment on above: Glucose result great er than or equal to 200 mg/dLsuggests DIABETES MELLITUS per A.D.A. criteria. Potassium [Moles/Vol] 3.6 mmol/L 3.5-5.1 [facility] Sodium [Moles/Vol] 137 mmol/L 136-[address] [facility] Laboratory - Chemistry and C hemistry - challengeOrdered By: Donato Sepulveda on 04-17-2022 CO2 [Moles/Vol] 36.0 mmol/L 21.0-32.0 [facility] Urea nitrogen/Creatinine [Mass ratio] 13.7 mg/mg 10-20 [facility] No Panel InformationOrdered By: Donato Sepulveda on 04-17-2022 Estimated GFR (MDRD) Amer 73 mL/min >60 [facility] Comment on above: GFR Calc Estimated GFR (MDRD) Non-Af Amer 60 mL/min >60 [facility] Comment on above: Non- GFR Calc Serum or plasma calcium serge urement (mass/volume)Ordered By: Donato Sepulveda on 04-17-2022 Calcium [Mass/Vol] 9.5 mg/dL 8.5-10.[address] [facility] Serum or plasma creatinine m easurement (mass/volume)Ordered By: Donato Sepulveda on 04-17-2022 Creatinine [Mass/Vol] 0.95 mg/dL 0.55-1.02 [facility] Comment on above: The validity of the calculated GFR & GFRAA in patients over 70 years has not been determined. Clinical correlation is essential. Serum or plasma urea nitroge n measurement (mass/volume)Ordered By: Donato Sepulveda on 04-17-2022 Urea nitrogen [Mass/Vol] 13 mg/dL 7-18 [facility] Thin prep Papanicolaou smear with manual screeningOrdered By: Donato Sepulveda on 04-17-2022 Thin prep Papanicolaou smear with manual screening 4 5-15 [facility] Basophil percentageOrdered B y: Donato Sepulveda on 04-13-2022 Potassium [Moles/Vol] 3.2 mmol/L 3.5-5.1 [facility] Basophil percentageOrdered B y: Basilio Flores on 04-10-2022 Bilirubin [Mass/Vol] 0.50 mg/dL 0.20-1.00 [facility] Comment on above: For patients on eltr ombopag therapy, use of Dimension Stow TBIL is not recommended. Chloride [Moles/Vol] 97 mmol/L 98-107 [facility] Glucose [Mass/Vol] 366 mg/dL 74-[address] [facility] Comment on above: Glucose result great er than or equal to 200 mg/dLsuggests DIABETES MELLITUS per A.D.A. criteria. Potassium [Moles/Vol] 3.1 mmol/L 3.5-5.1 [facility] Protein [Mass/Vol] 7.3 g/dL 6.4-8.[address] [facility] Sodium [Moles/Vol] 136 mmol/L 136-[address] [facility] WBC (Bld) [#/Vol] 6.4 10*3/uL 4.4-11.[address] [facility] Blood erythrocytes count (nu mber/volume)Ordered By: Basilio Flores on 04-10-2022 RBC (Bld) [#/Vol] 4.33 10*6/uL 4.2-5.4 [facility] Blood hemoglobin measurement (mass/volume)Ordered By: Basilio Flores on 04-10-2022 Hemoglobin (Bld) [Mass/Vol] 12.7 g/dL 12.0-15.0 [facility] Blood platelet mean volumeOr dered By: Basilio Flores on 04-10-2022 Platelet mean volume (Bld) [Entitic vol] 10.8 fL 6.2-12.0 [facility] Determination of erythrocyte mean corpuscular volume (MCV)Ordered By: Basilio Flores on 04-10-2022 MCV (RBC) [Entitic vol] 91.5 fL 81-99 [facility] Hematocrit Auto (Bld) [Volum e fraction]Ordered By: Basilio Flores on 04-10-2022 Hematocrit (Bld) [Volume fraction] 39.6 % 37-47 [facility] Laboratory - Chemistry and C hemistry - challengeOrdered By: Basilio Flores on 04-10-2022 ALP [Catalytic activity/Vol] 90 U/L 45-117 [facility] ALT [Catalytic activity/Vol] 24 U/L 13-56 [facility] CO2 [Moles/Vol] 37.0 mmol/L 21.0-32.0 [facility] Globulin (S) [Mass/Vol] 4.0 g/dL 2.2-4.2 [facility] Urea nitrogen/Creatinine [Mass ratio] 14.5 mg/mg 10-20 [facility] Laboratory - Hematology and Cell countsOrdered By: Basilio Flores on 04-10-2022 Erythrocyte distribution width (RBC) [Entitic vol] 42.4 fL 35.1-43.9 [facility] Erythrocyte distribution width (RBC) [Ratio] 12.6 % 11.6-14.6 [facility] MCH (RBC) [Entitic mass] 29.3 pg 27.0-32.0 [facility] MCHC Auto (RBC) [Mass/Vol]Or dered By: Basilio Flores on 04-10-2022 MCHC (RBC) [Mass/Vol] 32.1 g/dL 32-36 [facility] No Panel InformationOrdered By: Basilio Flores on 04-10-2022 Estimated GFR (MDRD) Amer 78 mL/min >60 [facility] Comment on above: GFR Calc Estimated GFR (MDRD) Non-Af Amer 64 mL/min >60 [facility] Comment on above: Non- GFR Calc Platelets bldOrdered By: August Flores on 04-10-2022 Platelets (Bld) [#/Vol] 216 10*3/uL 150-450 [facility] Serum or plasma albumin serge urement (mass/volume)Ordered By: Basilio Flores on 04-10-2022 Albumin [Mass/Vol] 3.3 g/dL 3.2-5.[address] [facility] Serum or plasma albumin/glob ulin mass ratioOrdered By: Basilio Flores on 04-10-2022 Albumin/Globulin [Mass ratio] 0.8 {ratio} 0.9-2.4 [facility] Serum or plasma calcium serge urement (mass/volume)Ordered By: Basilio Flores on 04-10-2022 Calcium [Mass/Vol] 9.1 mg/dL 8.5-10.[address] [facility] Serum or plasma creatinine m easurement (mass/volume)Ordered By: Basilio Flores on 04-10-2022 Creatinine [Mass/Vol] 0.90 mg/dL 0.55-1.02 [facility] Comment on above: The validity of the calculated GFR & GFRAA in patients over 70 years has not been determined. Clinical correlation is essential. Serum or plasma urea nitroge n measurement (mass/volume)Ordered By: Basilio Flores on 04-10-2022 Urea nitrogen [Mass/Vol] 13 mg/dL 7-18 [facility] Thin prep Papanicolaou smear with manual screeningOrdered By: Basilio Flores on 04-10-2022 Thin prep Papanicolaou smear with manual screening 22 U/L 15-37 [facility] Thin prep Papanicolaou smear with manual screening 2 5-15 [facility] No Panel InformationOrdered By: Basilio Flores on 03-06-2022 Vitamin D 25-Hydroxy 57.1 ng/mL [facility] Comment on above: Vitamin D 25(OH) Sta tus Range Deficiency <20 ng/mL (50nmol/L) Insufficiency 20 - 30 ng/mL (50 - 75 nmol/L) Sufficiency 30 - 100 ng/mL (75 - 250 nmol/L) Toxicity >100 ng/mL (>250 nmol/L) Whole blood hemoglobin A1c/t otal hemoglobin ratio (mass fraction)Ordered By: Basilio Flores on 03-06-2022 HbA1c (Bld) [Mass fraction] 7.4 % 3.8-5.6 [facility] Comment on above: Normal < 5.7 % Predi abetic 5.7 - 6.4 % Diabetic >or= 6.5 % Please note range changes. Basophil percentageon 2021 Bilirubin [Mass/Vol] 0.90 mg/dL 0.20-1.00 [facility] Work Phone: Comment on above: For patients on eltr ombopag therapy, use of Dimension Stow TBIL is not recommended. Chloride [Moles/Vol] 102 mmol/L 98-107 [facility] Work Phone: Glucose [Mass/Vol] 198 mg/dL 74-[address] [facility] Work Phone: Comment on above: Fasting Glucose resu lt greater than or equal to 126 mg/dL suggests DIABETES MELLITUS per A.D.A. criteria. Potassium [Moles/Vol] 4.3 mmol/L 3.5-5.1 [facility] Work Phone: Protein [Mass/Vol] 7.3 g/dL 6.4-8.[address] [facility] Work Phone: Sodium [Moles/Vol] 140 mmol/L 136-[address] [facility] Work Phone: WBC (Bld) [#/Vol] 5.8 10*3/uL 4.4-11.[address] [facility] Work Phone: Blood erythrocytes count (nu mber/volume)on 02-06-2022 RBC (Bld) [#/Vol] 4.46 10*6/uL 4.2-5.4 [facility] Work Phone: Blood hemoglobin measurement (mass/volume)on 02-06-2022 Hemoglobin (Bld) [Mass/Vol] 13.1 g/dL 12.0-15.0 [facility] Work Phone: Blood platelet mean volumeon 02-06-2022 Platelet mean volume (Bld) [Entitic vol] 10.5 fL 6.2-12.0 [facility] Work Phone: Determination of erythrocyte mean corpuscular volume (MCV)on 02-06-2022 MCV (RBC) [Entitic vol] 93.3 fL 81-99 [facility] Work Phone: Hematocrit Auto (Bld) [Volum e fraction]on 02-06-2022 Hematocrit (Bld) [Volume fraction] 41.6 % 37-47 [facility] Work Phone: Laboratory - Chemistry and C hemistry - challengeon 02-06-2022 ALP [Catalytic activity/Vol] 96 U/L 45-117 [facility] Work Phone: ALT [Catalytic activity/Vol] 22 U/L 13-56 [facility] Work Phone: CO2 [Moles/Vol] 32.0 mmol/L 21.0-32.0 [facility] Work Phone: Globulin (S) [Mass/Vol] 3.7 g/dL 2.2-4.2 [facility] Work Phone: Urea nitrogen/Creatinine [Mass ratio] 20.2 mg/mg 10-20 [facility] Work Phone: Laboratory - Hematology and Cell countson 02-06-2022 Erythrocyte distribution width (RBC) [Entitic vol] 46.5 fL 35.1-43.9 [facility] Work Phone: Erythrocyte distribution width (RBC) [Ratio] 13.5 % 11.6-14.6 [facility] Work Phone: MCH (RBC) [Entitic mass] 29.4 pg 27.0-32.0 [facility] Work Phone: MCHC Auto (RBC) [Mass/Vol]on 02-06-2022 MCHC (RBC) [Mass/Vol] 31.5 g/dL 32-36 [facility] Work Phone: No Panel Informationon 02-06 Estimated GFR (MDRD) Amer 66 mL/min >60 [facility] Work Phone: Comment on above: GFR Calc Estimated GFR (MDRD) Non-Af Amer 54 mL/min >60 [facility] Work Phone: Comment on above: Non- GFR Calc Platelets bldon 02-06-2022 Platelets (Bld) [#/Vol] 176 10*3/uL 150-450 [facility] Work Phone: Serum or plasma albumin serge urement (mass/volume)on 02-06-2022 Albumin [Mass/Vol] 3.6 g/dL 3.2-5.[address] [facility] Work Phone: Serum or plasma albumin/glob ulin mass ratioon 02-06-2022 Albumin/Globulin [Mass ratio] 1.0 {ratio} 0.9-2.4 [facility] Work Phone: Serum or plasma calcium serge urement (mass/volume)on 02-06-2022 Calcium [Mass/Vol] 9.5 mg/dL 8.5-10.[address] [facility] Work Phone: Serum or plasma creatinine m easurement (mass/volume)on 02-06-2022 Creatinine [Mass/Vol] 1.04 mg/dL 0.55-1.02 [facility] Work Phone: Comment on above: The validity of the calculated GFR & GFRAA in patients over 70 years has not been determined. Clinical correlation is essential. Serum or plasma urea nitroge n measurement (mass/volume)on 02-06-2022 Urea nitrogen [Mass/Vol] 21 mg/dL 7-18 [facility] Work Phone: Thin prep Papanicolaou smear with manual screeningon 02-06-2022 Thin prep Papanicolaou smear with manual screening 20 U/L 15-37 [facility] Work Phone: Thin prep Papanicolaou smear with manual screening 6 5-15 [facility] Work Phone: Basophil percentageon 2021 Bilirubin [Mass/Vol] 0.50 mg/dL 0.20-1.00 [facility] Work Phone: Comment on above: For patients on eltr ombopag therapy, use of Dimension Stow TBIL is not recommended. Chloride [Moles/Vol] 106 mmol/L 98-107 [facility] Work Phone: Glucose [Mass/Vol] 149 mg/dL 74-[address] [facility] Work Phone: Comment on above: Fasting Glucose resu lt greater than or equal to 126 mg/dL suggests DIABETES MELLITUS per A.D.A. criteria. Potassium [Moles/Vol] 3.6 mmol/L 3.5-5.1 [facility] Work Phone: Protein [Mass/Vol] 6.7 g/dL 6.4-8.[address] [facility] Work Phone: Sodium [Moles/Vol] 142 mmol/L 136-[address] [facility] Work Phone: WBC (Bld) [#/Vol] 6.0 10*3/uL 4.4-11.[address] [facility] Work Phone: Blood erythrocytes count (nu mber/volume)on 12-05-2021 RBC (Bld) [#/Vol] 4.12 10*6/uL 4.2-5.4 [facility] Work Phone: Blood hemoglobin measurement (mass/volume)on 12-05-2021 Hemoglobin (Bld) [Mass/Vol] 11.9 g/dL 12.0-15.0 [facility] Work Phone: Blood platelet mean volumeon 12-05-2021 Platelet mean volume (Bld) [Entitic vol] 10.9 fL 6.2-12.0 [facility] Work Phone: Determination of erythrocyte mean corpuscular volume (MCV)on 12-05-2021 MCV (RBC) [Entitic vol] 92.5 fL 81-99 [facility] Work Phone: Hematocrit Auto (Bld) [Volum e fraction]on 12-05-2021 Hematocrit (Bld) [Volume fraction] 38.1 % 37-47 [facility] Work Phone: Laboratory - Chemistry and C hemistry - challengeon 12-05-2021 ALP [Catalytic activity/Vol] 86 U/L 45-117 [facility] Work Phone: ALT [Catalytic activity/Vol] 17 U/L 13-56 [facility] Work Phone: CO2 [Moles/Vol] 34.0 mmol/L 21.0-32.0 [facility] Work Phone: Globulin (S) [Mass/Vol] 3.6 g/dL 2.2-4.2 [facility] Work Phone: Urea nitrogen/Creatinine [Mass ratio] 14.5 mg/mg 10-20 [facility] Work Phone: Laboratory - Hematology and Cell countson 12-05-2021 Erythrocyte distribution width (RBC) [Entitic vol] 45.8 fL 35.1-43.9 [facility] Work Phone: Erythrocyte distribution width (RBC) [Ratio] 13.4 % 11.6-14.6 [facility] Work Phone: MCH (RBC) [Entitic mass] 28.9 pg 27.0-32.0 [facility] Work Phone: MCHC Auto (RBC) [Mass/Vol]on 12-05-2021 MCHC (RBC) [Mass/Vol] 31.2 g/dL 32-36 [facility] Work Phone: No Panel Informationon 12-05 Estimated GFR (MDRD) Amer 78 mL/min >60 [facility] Work Phone: Comment on above: GFR Calc Estimated GFR (MDRD) Non-Af Amer 64 mL/min >60 [facility] Work Phone: Comment on above: Non- GFR Calc Vitamin D 25-Hydroxy 90.8 ng/mL [facility] Work Phone: Comment on above: Vitamin D 25(OH) Sta tus Range Deficiency <20 ng/mL (50nmol/L) Insufficiency 20 - 30 ng/mL (50 - 75 nmol/L) Sufficiency 30 - 100 ng/mL (75 - 250 nmol/L) Toxicity >100 ng/mL (>250 nmol/L) Platelets bldon 12-05-2021 Platelets (Bld) [#/Vol] 162 10*3/uL 150-450 [facility] Work Phone: Serum or plasma albumin serge urement (mass/volume)on 12-05-2021 Albumin [Mass/Vol] 3.1 g/dL 3.2-5.[address] [facility] Work Phone: Serum or plasma albumin/glob ulin mass ratioon 12-05-2021 Albumin/Globulin [Mass ratio] 0.9 {ratio} 0.9-2.4 [facility] Work Phone: Serum or plasma calcium serge urement (mass/volume)on 12-05-2021 Calcium [Mass/Vol] 9.3 mg/dL 8.5-10.[address] [facility] Work Phone: Serum or plasma creatinine m easurement (mass/volume)on 12-05-2021 Creatinine [Mass/Vol] 0.90 mg/dL 0.55-1.02 [facility] Work Phone: Comment on above: The validity of the calculated GFR & GFRAA in patients over 70 years has not been determined. Clinical correlation is essential. Serum or plasma urea nitroge n measurement (mass/volume)on 12-05-2021 Urea nitrogen [Mass/Vol] 13 mg/dL 7-18 [facility] Work Phone: Thin prep Papanicolaou smear with manual screeningon 12-05-2021 Thin prep Papanicolaou smear with manual screening 18 U/L 15-37 [facility] Work Phone: Thin prep Papanicolaou smear with manual screening 2 5-15 [facility] Work Phone: Whole blood hemoglobin A1c/t otal hemoglobin ratio (mass fraction)on 12-05-2021 HbA1c (Bld) [Mass fraction] 7.4 % 3.8-5.6 [facility] Work Phone: Comment on above: Normal < 5.7 % Predi abetic 5.7 - 6.4 % Diabetic >or= 6.5 % Please note range changes. Whole blood hemoglobin A1c/t otal hemoglobin ratio (mass fraction)on 11-14-2021 HbA1c (Bld) [Mass fraction] 8.5 % 3.8-5.6 [facility] Work Phone: Comment on above: Normal < 5.7 % Predi abetic 5.7 - 6.4 % Diabetic >or= 6.5 % Please note range changes. Whole blood hemoglobin A1c/t otal hemoglobin ratio (mass fraction)on 10-17-2021 HbA1c (Bld) [Mass fraction] 7.7 % 3.8-5.6 [facility] Work Phone: Comment on above: Normal < 5.7 % Predi abetic 5.7 - 6.4 % Diabetic >or= 6.5 % Please note range changes. Basophil percentageon 2021 Bilirubin [Mass/Vol] 0.40 mg/dL 0.20-1.00 [facility] Work Phone: Comment on above: For patients on eltr ombopag therapy, use of Dimension Stow TBIL is not recommended. Chloride [Moles/Vol] 105 mmol/L 98-107 [facility] Work Phone: Cholesterol [Mass/Vol] 130 mg/dL <200 [facility] Work Phone: Comment on above: <200 mg/dL Desirable 200-240 mg/dL Borderline >240 mg/dL High Risk Glucose [Mass/Vol] 127 mg/dL 74-[address] [facility] Work Phone: Comment on above: Fasting Glucose resu lt greater than or equal to 126 mg/dL suggests DIABETES MELLITUS per A.D.A. criteria. Potassium [Moles/Vol] 3.7 mmol/L 3.5-5.1 [facility] Work Phone: Protein [Mass/Vol] 6.4 g/dL 6.4-8.[address] [facility] Work Phone: Sodium [Moles/Vol] 145 mmol/L 136-[address] [facility] Work Phone: Triglyceride [Mass/Vol] 77 mg/dL <199 [facility] Work Phone: Comment on above: The drugs N-Acetylcy steine and Metamizole may falsely depress this assay.Serum Triglycerides Reference Interval Normal <150 mg/dL Borderline high 150 - 199 mg/dL High 200 - 499 mg/dL Very High > or = 500 mg/dL WBC (Bld) [#/Vol] 5.7 10*3/uL 4.4-11.[address] [facility] Work Phone: Blood erythrocytes count (nu mber/volume)on 10-05-2021 RBC (Bld) [#/Vol] 4.01 10*6/uL 4.2-5.4 [facility] Work Phone: Blood hemoglobin measurement (mass/volume)on 10-05-2021 Hemoglobin (Bld) [Mass/Vol] 11.5 g/dL 12.0-15.0 [facility] Work Phone: Blood platelet mean volumeon 10-05-2021 Platelet mean volume (Bld) [Entitic vol] 11.3 fL 6.2-12.0 [facility] Work Phone: Determination of erythrocyte mean corpuscular volume (MCV)on 10-05-2021 MCV (RBC) [Entitic vol] 93.3 fL 81-99 [facility] Work Phone: Hematocrit Auto (Bld) [Volum e fraction]on 10-05-2021 Hematocrit (Bld) [Volume fraction] 37.4 % 37-47 [facility] Work Phone: Laboratory - Chemistry and C hemistry - challengeon 10-05-2021 ALP [Catalytic activity/Vol] 80 U/L 45-117 [facility] Work Phone: ALT [Catalytic activity/Vol] 16 U/L 13-56 [facility] Work Phone: CO2 [Moles/Vol] 29.0 mmol/L 21.0-32.0 [facility] Work Phone: Globulin (S) [Mass/Vol] 3.1 g/dL 2.2-4.2 [facility] Work Phone: Urea nitrogen/Creatinine [Mass ratio] 17.1 mg/mg 10-20 [facility] Work Phone: Laboratory - Hematology and Cell countson 10-05-2021 Erythrocyte distribution width (RBC) [Entitic vol] 44.9 fL 35.1-43.9 [facility] Work Phone: Erythrocyte distribution width (RBC) [Ratio] 13.2 % 11.6-14.6 [facility] Work Phone: MCH (RBC) [Entitic mass] 28.7 pg 27.0-32.0 [facility] Work Phone: MCHC Auto (RBC) [Mass/Vol]on 10-05-2021 MCHC (RBC) [Mass/Vol] 30.7 g/dL 32-36 [facility] Work Phone: No Panel Informationon 10-05 Estimated GFR (MDRD) Amer 65 mL/min >60 [facility] Work Phone: Comment on above: GFR Calc Estimated GFR (MDRD) Non-Af Amer 54 mL/min >60 [facility] Work Phone: Comment on above: Non- GFR Calc Platelets bldon 10-05-2021 Platelets (Bld) [#/Vol] 164 10*3/uL 150-450 [facility] Work Phone: Serum or plasma albumin serge urement (mass/volume)on 10-05-2021 Albumin [Mass/Vol] 3.3 g/dL 3.2-5.[address] [facility] Work Phone: Serum or plasma albumin/glob ulin mass ratioon 10-05-2021 Albumin/Globulin [Mass ratio] 1.1 {ratio} 0.9-2.4 [facility] Work Phone: Serum or plasma calcium serge urement (mass/volume)on 10-05-2021 Calcium [Mass/Vol] 8.8 mg/dL 8.5-10.[address] [facility] Work Phone: Serum or plasma cholesterol in HDL measurement (mass/volume)on 10-05-2021 Cholesterol in HDL [Mass/Vol] 47 mg/dL >40 [facility] Work Phone: Comment on above: The drugs N-Acetylcy steine and Metamizole may falsely depress this assay. Reference Range HDL <40 mg/dL Low HDL Cholesterol HDL >or= 60 mg/dL High HDL Cholesterol Serum or plasma cholesterol in VLDL measurement (mass/volume)on 10-05-2021 Cholesterol in VLDL [Mass/Vol] 15 mg/dL 5-40 [facility] Work Phone: Serum or plasma creatinine m easurement (mass/volume)on 10-05-2021 Creatinine [Mass/Vol] 1.05 mg/dL 0.55-1.02 [facility] Work Phone: Comment on above: The validity of the calculated GFR & GFRAA in patients over 70 years has not been determined. Clinical correlation is essential. Serum or plasma low density lipoprotein (LDL) cholesterol measurement (mass/volume)on 10-05-2021 Cholesterol in LDL [Mass/Vol] 68 mg/dL 0-130 [facility] Work Phone: Serum or plasma urea nitroge n measurement (mass/volume)on 10-05-2021 Urea nitrogen [Mass/Vol] 18 mg/dL 7-18 [facility] Work Phone: Thin prep Papanicolaou smear with manual screeningon 10-05-2021 Thin prep Papanicolaou smear with manual screening 18 U/L 15-37 [facility] Work Phone: Thin prep Papanicolaou smear with manual screening 11 5-15 [facility] Work Phone: No Panel Informationon 09-05 Vitamin D 25-Hydroxy 44.4 ng/mL [facility] Work Phone: Comment on above: Vitamin D 25(OH) Sta tus Range Deficiency <20 ng/mL (50nmol/L) Insufficiency 20 - 30 ng/mL (50 - 75 nmol/L) Sufficiency 30 - 100 ng/mL (75 - 250 nmol/L) Toxicity >100 ng/mL (>250 nmol/L) Whole blood hemoglobin A1c/t otal hemoglobin ratio (mass fraction)on 09-05-2021 HbA1c (Bld) [Mass fraction] 8.3 % 3.8-5.6 [facility] Work Phone: Comment on above: Normal < 5.7 % Predi abetic 5.7 - 6.4 % Diabetic >or= 6.5 % Please note range changes. Basophil percentageon 2021 Bilirubin [Mass/Vol] 0.40 mg/dL 0.20-1.00 [facility] Work Phone: Comment on above: For patients on eltr ombopag therapy, use of Dimension Stow TBIL is not recommended. Chloride [Moles/Vol] 102 mmol/L 98-107 [facility] Work Phone: Glucose [Mass/Vol] 358 mg/dL 74-[address] [facility] Work Phone: Comment on above: Glucose result great er than or equal to 200 mg/dLsuggests DIABETES MELLITUS per A.D.A. criteria. Potassium [Moles/Vol] 3.3 mmol/L 3.5-5.1 [facility] Work Phone: Protein [Mass/Vol] 6.8 g/dL 6.4-8.[address] [facility] Work Phone: Sodium [Moles/Vol] 139 mmol/L 136-[address] [facility] Work Phone: WBC (Bld) [#/Vol] 5.6 10*3/uL 4.4-11.[address] [facility] Work Phone: Blood erythrocytes count (nu mber/volume)on 08-08-2021 RBC (Bld) [#/Vol] 3.99 10*6/uL 4.2-5.4 [facility] Work Phone: Blood hemoglobin measurement (mass/volume)on 08-08-2021 Hemoglobin (Bld) [Mass/Vol] 11.5 g/dL 12.0-15.0 [facility] Work Phone: Blood platelet mean volumeon 08-08-2021 Platelet mean volume (Bld) [Entitic vol] 11.0 fL 6.2-12.0 [facility] Work Phone: Determination of erythrocyte mean corpuscular volume (MCV)on 08-08-2021 MCV (RBC) [Entitic vol] 91.7 fL 81-99 [facility] Work Phone: Hematocrit Auto (Bld) [Volum e fraction]on 08-08-2021 Hematocrit (Bld) [Volume fraction] 36.6 % 37-47 [facility] Work Phone: Laboratory - Chemistry and C hemistry - challengeon 08-08-2021 ALP [Catalytic activity/Vol] 85 U/L 45-117 [facility] Work Phone: ALT [Catalytic activity/Vol] 17 U/L 13-56 [facility] Work Phone: CO2 [Moles/Vol] 33.0 mmol/L 21.0-32.0 [facility] Work Phone: Globulin (S) [Mass/Vol] 3.8 g/dL 2.2-4.2 [facility] Work Phone: Urea nitrogen/Creatinine [Mass ratio] 12.7 mg/mg 10-20 [facility] Work Phone: Laboratory - Hematology and Cell countson 08-08-2021 Erythrocyte distribution width (RBC) [Entitic vol] 43.0 fL 35.1-43.9 [facility] Work Phone: Erythrocyte distribution width (RBC) [Ratio] 12.7 % 11.6-14.6 [facility] Work Phone: MCH (RBC) [Entitic mass] 28.8 pg 27.0-32.0 [facility] Work Phone: MCHC Auto (RBC) [Mass/Vol]on 08-08-2021 MCHC (RBC) [Mass/Vol] 31.4 g/dL 32-36 [facility] Work Phone: No Panel Informationon 08-08 Estimated GFR (MDRD) Amer 67 mL/min >60 [facility] Work Phone: Comment on above: GFR Calc Estimated GFR (MDRD) Non-Af Amer 56 mL/min >60 [facility] Work Phone: Comment on above: Non- GFR Calc Platelets bldon 08-08-2021 Platelets (Bld) [#/Vol] 155 10*3/uL 150-450 [facility] Work Phone: Serum or plasma albumin serge urement (mass/volume)on 08-08-2021 Albumin [Mass/Vol] 3.0 g/dL 3.2-5.[address] [facility] Work Phone: Serum or plasma albumin/glob ulin mass ratioon 08-08-2021 Albumin/Globulin [Mass ratio] 0.8 {ratio} 0.9-2.4 [facility] Work Phone: Serum or plasma calcium serge urement (mass/volume)on 08-08-2021 Calcium [Mass/Vol] 9.3 mg/dL 8.5-10.[address] [facility] Work Phone: Serum or plasma creatinine m easurement (mass/volume)on 08-08-2021 Creatinine [Mass/Vol] 1.02 mg/dL 0.55-1.02 [facility] Work Phone: Comment on above: The validity of the calculated GFR & GFRAA in patients over 70 years has not been determined. Clinical correlation is essential. Serum or plasma urea nitroge n measurement (mass/volume)on 08-08-2021 Urea nitrogen [Mass/Vol] 13 mg/dL 7-18 [facility] Work Phone: Thin prep Papanicolaou smear with manual screeningon 08-08-2021 Thin prep Papanicolaou smear with manual screening 15 U/L 15-37 [facility] [facility] Work Phone: Thin prep Papanicolaou smear with manual screening 4 5-15 [facility] Work Phone: Basophil percentageon 2021 Basophil percentage 3.6 mg/dL 2.5-4.9 [facility] Work Phone: Chloride [Moles/Vol] 99 mmol/L 98-[address] [facility] Work Phone: Glucose [Mass/Vol] 311 mg/dL 74-[address] [facility] Work Phone: Comment on above: Glucose result great er than or equal to 200 mg/dLsuggests DIABETES MELLITUS per A.D.A. criteria. Potassium [Moles/Vol] 3.7 mmol/L 3.5-5.1 [facility]: Sodium [Moles/Vol] 139 mmol/L 136-[address] [facility] Work Phone: WBC (Bld) [#/Vol] 6.1 10*3/uL 4.4-11.[address] [facility] Work Phone: Blood erythrocytes count (nu mber/volume)on 07-12-2021 RBC (Bld) [#/Vol] 4.40 10*6/uL 4.2-5.4 [facility] Work Phone: Blood hemoglobin measurement (mass/volume)on 07-12-2021 Hemoglobin (Bld) [Mass/Vol] 12.5 g/dL 12.0-15.0 [facility] Work Phone: Blood platelet mean volumeon 07-12-2021 Platelet mean volume (Bld) [Entitic vol] 11.0 fL 6.2-12.0 [facility] Work Phone: Determination of erythrocyte mean corpuscular volume (MCV)on 07-12-2021 MCV (RBC) [Entitic vol] 90.7 fL 81-99 [facility] Work Phone: Hematocrit Auto (Bld) [Volum e fraction]on 07-12-2021 Hematocrit (Bld) [Volume fraction] 39.9 % 37-47 [facility] Work Phone: Laboratory - Chemistry and C hemistry - challengeon 07-12-2021 CO2 [Moles/Vol] 34.0 mmol/L 21.0-32.0 [facility] Work Phone: Urea nitrogen/Creatinine [Mass ratio] 14.2 mg/mg 10-20 [facility] Work Phone: Laboratory - Hematology and Cell countson 07-12-2021 Erythrocyte distribution width (RBC) [Entitic vol] 42.3 fL 35.1-43.9 [facility] Work Phone: Erythrocyte distribution width (RBC) [Ratio] 12.8 % 11.6-14.6 [facility] Work Phone: MCH (RBC) [Entitic mass] 28.4 pg 27.0-32.0 [facility] Work Phone: MCHC Auto (RBC) [Mass/Vol]on 07-12-2021 MCHC (RBC) [Mass/Vol] 31.3 g/dL 32-36 [facility] Work Phone: No Panel Informationon 07-12 Estimated GFR (MDRD) Amer 64 mL/min >60 [facility] Work Phone: Comment on above: GFR Calc Estimated GFR (MDRD) Non-Af Amer 53 mL/min >60 [facility] Work Phone: Comment on above: Non- GFR Calc Parathyroid Hormone (Intact) 38.0 pg/mL 18.4-80.1 [facility] Work Phone: Vitamin D 25-Hydroxy 10.0 ng/mL [facility] Work Phone: Comment on above: Vitamin D 25(OH) Sta tus Range Deficiency <20 ng/mL (50nmol/L) Insufficiency 20 - 30 ng/mL (50 - 75 nmol/L) Sufficiency 30 - 100 ng/mL (75 - 250 nmol/L) Toxicity >100 ng/mL (>250 nmol/L) Platelets bldon 07-12-2021 Platelets (Bld) [#/Vol] 188 10*3/uL 150-450 [facility] Work Phone: Serum or plasma albumin serge urement (mass/volume)on 07-12-2021 Albumin [Mass/Vol] 3.2 g/dL 3.2-5.[address] [facility] Work Phone: Serum or plasma calcium serge urement (mass/volume)on 07-12-2021 Calcium [Mass/Vol] 9.8 mg/dL 8.5-10.[address] [facility] Work Phone: Serum or plasma creatinine m easurement (mass/volume)on 07-12-2021 Creatinine [Mass/Vol] 1.06 mg/dL 0.55-1.02 [facility] Work Phone: Comment on above: The validity of the calculated GFR & GFRAA in patients over 70 years has not been determined. Clinical correlation is essential. Serum or plasma urea nitroge n measurement (mass/volume)on 07-12-2021 Urea nitrogen [Mass/Vol] 15 mg/dL 7- [facility] Work Phone: Clinical Summary: HMSPatient IDon 03-16-2019 PatriciaOP Camryn Ng [facility] Work Phone: Office Visit: New - 1st visi t with practice, Rm: PT2on 03-16-2019 NEGATED: Highlighted rowMRI (magnetic resonance imaging) history of the cervical spine on 11/24/2018 at [facility] Work Phone: NEGATED: Highlighted rowTobacco smoking status NHIS Tobacco smoking status [facility] Work Phone: Vital Signs Date Time Vital Sign Value Performing Clinician Facility 10-20-2024 18:22-0400 Diastolic blood pressure 78 mm[Hg] Dr. Basilio Flores MD Work Phone: [facility] 10-20-2024 18:22-0400 Heart rate 72 /min Dr. Basilio Flores MD Work Phone: [facility] 10-20-2024 18:22-0400 Respiratory rate 18 /min Dr. Basilio Flores MD Work Phone: [facility] 10-20-2024 18:22-0400 SaO2% (BldA) [Mass fraction] 94 % Dr. Basilio Flores MD Work Phone: [facility] 10-20-2024 18:22-0400 Systolic blood pressure 164 mm[Hg] Dr. Basilio Flores MD Work Phone: [facility] 10-20-2024 12:21-0400 Body temperature 97.9 [degF] Dr. Basilio Flores MD Work Phone: 6(639)148-184486 [place] [address] 10-20-2024 03:45-0400 Body mass index (BMI) [Ratio] 19.7 kg/m2 Dr. Basilio Flores MD Work Phone: 0(655)480-870986 [place] [address] 10-20-2024 03:45-0400 Body weight 52.[address] Basilio Flores MD Work Phone: 3(520)055-958886 [place] [address] 10-19-2024 10:15-0400 Body height 162.[address] Basilio Flores MD Work Phone: 5(553)643-421886 [place] [address] 10-18-2024 21:51-0400 Body temperature 97.8 [degF] Dr. Basilio Flores MD Work Phone: 7(022)545-976286 [place] [address] 10-18-2024 21:51-0400 Diastolic blood pressure 75 mm[Hg] Dr. Basilio Flores MD Work Phone: 3(871)319-664886 [place] [address] 10-18-2024 21:51-0400 Heart rate 83 /min Dr. Basilio Flores MD Work Phone: 2(240)115-552886 [place] [address] 10-18-2024 21:51-0400 Respiratory rate 16 /min Dr. Basilio Flores MD Work Phone: 4(863)485-443986 [place] [address] 10-18-2024 21:51-0400 SaO2% (BldA) [Mass fraction] 94 % Dr. Basilio Flores MD Work Phone: 4(953)450-516986 [place] [address] 10-18-2024 21:51-0400 Systolic blood pressure 169 mm[Hg] Dr. Basilio Flores MD Work Phone: 1(679)164-410686 [place] [address] 10-18-2024 16:46-0400 Body height 157.[address] Basilio Flores MD Work Phone: 5(555)127-391986 [place] [address] 10-18-2024 16:46-0400 Body mass index (BMI) [Ratio] 22.6 kg/m2 Dr. Basilio Flores MD Work Phone: 0(325)971-248986 [place] [address] 10-18-2024 16:46-0400 Body weight 56.[address] Basilio Flores MD Work Phone: 9(091)548-184186 [place] [address] 08-24-2024 09:43-0400 Body temperature 98.9 [degF] Dr. Basilio Flores MD Work Phone: 0(975)297-678886 [place] [address] 08-24-2024 09:43-0400 Diastolic blood pressure 69 mm[Hg] Dr. Basilio Flores MD Work Phone: 3(526)342-605286 [place] [address] 08-24-2024 09:43-0400 Heart rate 72 /min Dr. Basilio Flores MD Work Phone: 7(267)934-929686 [place] [address] 08-24-2024 09:43-0400 Respiratory rate 16 /min Dr. Basilio Flores MD Work Phone: 4(770)934-932086 [place] [address] 08-24-2024 09:43-0400 SaO2% (BldA) [Mass fraction] 98 % Dr. Basilio Flores MD Work Phone: 2(529)368-743486 [place] [address] 08-24-2024 09:43-0400 Systolic blood pressure 149 mm[Hg] Dr. Basilio Flores MD Work Phone: 4(385)504-595186 [place] [address] 08-24-2024 08:47-0400 Body height 157.[address] Basilio Flores MD Work Phone: 0(056)573-348286 [place] [address] 08-24-2024 08:47-0400 Body mass index (BMI) [Ratio] 22.1 kg/m2 Dr. Basilio Flores MD Work Phone: 3(455)127-026586 [place] [address] 08-24-2024 08:47-0400 Body weight [address] Basilio Flores MD Work Phone: 5(584)412-417986 [place] [address] 06-08-2023 09:40-0500 Diastolic blood pressure 77 mm[Hg] Dr. Basilio Flores Work Phone: 7(392)171-071886 [place] [address] 06-08-2023 09:40-0500 Heart rate 82 /min Dr. Basilio Flores Work Phone: 1(892)566-755786 [place] [address] 06-08-2023 09:40-0500 Respiratory rate 16 /min Dr. Basilio Flores Work Phone: 1(629)292-701486 [place] [address] 06-08-2023 09:40-0500 SaO2% (BldA) [Mass fraction] 98 % Dr. aBsilio Flores Work Phone: 1(966)655-709486 [place] [address] 06-08-2023 09:40-0500 Systolic blood pressure 135 mm[Hg] Dr. Basilio Flores Work Phone: 2(960)917-995486 [place] [address] 06-08-2023 08:04-0500 Body height 157.[address] Basilio Flores Work Phone: 6(649)637-099986 [place] [address] 06-08-2023 08:04-0500 Body mass index (BMI) [Ratio] 25.7 kg/m2 Dr. Basilio Flores Work Phone: 7(905)302-623286 [place] [address] 06-08-2023 08:04-0500 Body temperature 97.9 [degF] Dr. Basilio Flores Work Phone: 9(846)682-275886 [place] [address] 06-08-2023 08:04-0500 Body weight 63.[address] Basilio Flores Work Phone: 7(742)588-525786 [place] [address] 06-05-2023 08:33-0500 Diastolic blood pressure 67 mm[Hg] Dr. Basilio Flores Work Phone: 6(650)649-893386 [place] [address] 06-05-2023 08:33-0500 Heart rate 81 /min Dr. Basilio Flores Work Phone: 6(951)479-180386 [place] [address] 06-05-2023 08:33-0500 Respiratory rate 16 /min Dr. Basilio Flores Work Phone: 6(910)860-536286 [place] [address] 06-05-2023 08:33-0500 SaO2% (BldA) [Mass fraction] 93 % Dr. Basilio Flores Work Phone: 8(888)477-511786 [place] [address] 06-05-2023 08:33-0500 Systolic blood pressure 142 mm[Hg] Dr. Basilio Flores Work Phone: 2(916)610-415686 [place] [address] 06-05-2023 03:42-0500 Body height 162.[address] Basilio Flores Work Phone: 5(895)306-686986 [place] [address] 06-05-2023 03:42-0500 Body mass index (BMI) [Ratio] 23.9 kg/m2 Dr. Basilio Flores Work Phone: 6(533)486-422386 [place] [address] 06-05-2023 03:42-0500 Body temperature 97.6 [degF] Dr. Basilio Flores Work Phone: [facility] 06-05-2023 03:42-0500 Body weight 63.[address] Basilio Flores Work Phone: [facility] NEGATED: Highlighted [id number] 14:06-0500 BMI (Body Mass Index) 44.85 kg/m2 Arcenio Sitko AT [facility] Work Phone: NEGATED: Highlighted [id number] 14:06-0500 Body weight 102.06 kg Arcenio Sitko AT [facility] Work Phone: NEGATED: Highlighted [id number] 14:06-0500 Body weight 102 kg Arcenio Sitko AT [facility] Work Phone: NEGATED: Highlighted [id number] 14:06-0500 BP Diastolic 68 mm[Hg] Arcenio Sitko AT [facility] Work Phone: NEGATED: Highlighted [id number] 14:06-0500 BP Systolic 124 mm[Hg] Arcenio Sitko AT [facility] Work Phone: NEGATED: Highlighted [id number] 14:06-0500 Height 151.13 cm Arcenio Sitko AT [facility] Work Phone: NEGATED: Highlighted [id number] 14:06-0500 Height 151 cm Arcenio Sitko AT [facility] Work Phone: NEGATED: Highlighted [id number] 14:06-0500 Pulse (Heart Rate) 101 /min Arcenio Sitko AT [facility] [place] [facility] Work Phone: Encounters Encounter Date Encounter Type Care Provider Facility Start: 10-20-2024 Non-patient / Non-visit Dr. Yadi Lam MD -[facility] Work Phone: Start: 10-19-2024 Non-patient / Non-visit Dr. Yadi Lma MD -[facility] Work Phone: Start: 10-18-2024 ambulatory Anali Coello Facility:[facility] Start: 10-18-2024 End: 10-20-2024 Evaluation and management of inpatient Dr. Anali Coello DO -Progressive Care Unit Work Phone: Start: 10-06-2024 ambulatory Donato COLVIN Fa cility:[facility] Start: 10-06-2024 [facility] Start: 09-08-2024 End: 09-08-[address] Basilio Flores MD Work Phone: [facility] Work Phone: Start: 09-08-2024 End: 09-08-2024 Departed Referred Donato Sepulveda MD [facility] Start: 09-08-2024 [facility] Start: 09-08-2024 End: 09-08-2024 ambulatory Donato COLVIN Facility:[facility] Start: 08-25-2024 End: 08-25-[address] Basilio Flores MD Work Phone: [facility] Work Phone: Start: 08-25-2024 End: 08-25-2024 [facility] Start: 08-24-2024 End: 08-24-2024 Admission to same day surgery center Dr. Armando Rich MD -[facility] Start: 08-24-2024 End: 08-25-[address] Basilio Flores MD Work Phone: [facility] Work Phone: Start: 08-17-2024 End: 08-17-2024 ambulatory Debora Schneider NP Facility:[facility] Start: 08-17-2024 End: 08-17-2024 Patient encounter procedure Debora Schneider NEWSPAPER REPORTER- -[facility] Work Phone: Start: 07-15-2024 End: 07-15-[address] Basilio Flores MD Work Phone: [facility] Work Phone: Start: 07-15-2024 End: 07-15-2024 [facility] Start: 07-14-2024 End: 07-14-[address] Donato Sepulveda MD -[facility] Work Phone: Start: 07-14-2024 End: 07-15-[address] Basilio Flores MD Work Phone: [facility] Work Phone: Start: 07-14-2024 End: 07-14-2024 Departed Referred Donato Sepulveda MD [facility] Start: 07-14-2024 [facility] Start: 07-14-2024 End: 07-14-2024 ambulatory Donato COLVIN Facility:[facility] Start: 06-26-2024 End: 06-26-2024 ambulatory Basilio Flores Facility:[facility] Start: 06-26-2024 End: 06-26-2024 Patient encounter procedure Debora Wyatt [facility] -[facility] Work Phone: Start: 06-15-2024 ambulatory Efbalaji COLVIN Fa cility:[facility] Start: 06-15-2024 Registered Referred Donato Sepulveda MD [facility] Start: 06-09-2024 ambulatory Efbalaji COLVIN Fa cility:[facility] Start: 06-09-2024 [facility] Start: 06-02-2024 End: 06-02-2024 [facility] Start: 06-01-2024 End: 06-02-2024 ambulatory Basilio Flores Facility:[facility] Start: 06-01-2024 End: 06-01-2024 Patient encounter procedure Debora DOW -[facility] Work Phone: Start: 05-19-2024 End: 05-19-2024 ambulatory Basilio Flores Facility:[facility] Start: 05-19-2024 End: 05-19-[address] Donato Sepulveda MD -[facility] Work Phone: Start: 04-21-2024 ambulatory Basilio Flores Facility: [facility] Start: 04-21-2024 Registered Referred Donato Sepulveda MD [facility] Start: 04-07-2024 End: 04-07-2024 ambulatory Basilio Flores Facility:[facility] Start: 04-07-2024 End: 04-07-2024 ambulatory Basilio Florse Facility:[facility] Start: 03-17-2024 End: 03-17-2024 ambulatory Basilio Flores Facility:[facility] Start: 03-10-2024 End: 03-10-2024 ambulatory Basilio Flores Facility:[facility] Start: 02-06-2024 End: 02-06-2024 ambulatory Basilio Flores Facility:[facility] Start: 02-04-2024 End: 02-04-2024 ambulatory Basilio Mckenna Flores Facility:[facility] Start: 01-21-2024 End: 01-21-2024 ambulatory Basilio Mckenna Flores Facility:[facility] Start: 01-14-2024 ambulatory Basilio Flores Facility: [facility] Start: 01-09-2024 End: 01-09-2024 ambulatory Basilio Flores Facility:[facility] Start: 12-30-2023 End: 12-30-2023 ambulatory Basilio Flores Facility:[facility] Start: 12-10-2023 End: 12-10-2023 ambulatory Basilio Flores Facility:[facility] Start: 11-19-2023 End: 11-19-2023 ambulatory Basilio Flores Facility:[facility] Start: 11-01-2023 End: 11-01-2023 ambulatory Basilio Flores Facility:[facility] Start: 08-06-2023 End: 08-06-[address] Basilio Flores Work Phone: [facility] Work Phone: Start: 08-06-2023 End: 08-06-[address] Basilio Flores Work Phone: [facility] Start: 06-11-2023 End: 06-11-[address] Basilio Flores Work Phone: [facility] Work Phone: Start: 06-11-2023 End: 06-11-[address] Basilio Flores Work Phone: [facility] Start: 06-08-2023 End: 06-08-2023 Emergency department patient visit Dr. Basilio Flores Work Phone: [facility] Work Phone: Start: 06-05-2023 End: 06-05-[address] Basilio Flores Work Phone: [facility] Work Phone: Start: 06-05-2023 End: 06-05-2023 Emergency department patient visit Dr. Basilio Flores Work Phone: [facility] Work Phone: Start: 05-28-2023 End: 05-28-[address] Basilio Flores Work Phone: [facility] Work Phone: Start: 05-15-2023 End: 05-15-[address] Basilio Flores Work Phone: [facility] Work Phone: Start: 04-24-2023 End: 04-24-[address] Basilio Flores Work Phone: [facility] Work Phone: Start: 04-23-2023 End: 04-23-[address] Basilio Flores Work Phone: [facility] Work Phone: Start: 04-23-2023 End: 04-23-[address] Basilio Flores Work Phone: [facility] Start: 04-23-[address] Basilio avendano Work Phone: [facility] Start: 04-19-2023 End: 04-19-[address] Basilio Flores Work Phone: [facility] Work Phone: Start: 04-19-2023 End: 04-19-[address] Basilio Flores Work Phone: [facility] Start: 04-19-[address] Basilio avendano Work Phone: [facility] Start: 04-09-2023 End: 04-09-[address] Basilio Flores Work Phone: [facility] Work Phone: Start: 04-09-2023 End: 04-09-[address] Basilio Flores Work Phone: [facility] Start: 03-26-2023 End: 03-26-[address] Basilio Flores Work Phone: [facility] Work Phone: Start: 03-13-2023 End: 03-13-[address] Basilio Flores Work Phone: [facility] Work Phone: Start: 03-12-2023 End: 03-12-[address] Basilio Flores Work Phone: [facility] Start: 03-07-2023 End: 03-07-[address] Basilio Flores Work Phone: [facility] Work Phone: Start: 02-05-2023 End: 02-05-[address] Basilio Flores Work Phone: [facility] Start: 02-04-2023 End: 02-04-[address] Basilio Flores Work Phone: [facility] Work Phone: Start: 01-30-2023 End: 01-30-[address] Basilio Flores Work Phone: [facility] Work Phone: Start: 01-22-2023 End: 01-22-[address] Basilio Flores Work Phone: [facility] Work Phone: Start: 01-17-2023 End: 01-17-[address] Basilio Flores Work Phone: [facility] Work Phone: Start: 01-01-2023 End: 01-01-[address] Basilio Flores Work Phone: [facility] Work Phone: Start: 12-07-2022 End: 12-07-[address] Basilio Flores Work Phone: [facility] Work Phone: Start: 12-07-2022 End: 12-07-[address] Basilio Flores Work Phone: [facility] Start: 12-04-2022 End: 12-04-[address] Basilio Flores Work Phone: [facility] Work Phone: Start: 12-04-2022 End: 12-04-[address] Basilio Flores Work Phone: [facility] Start: 12-04-[address] Basilio avendano Work Phone: [facility] Start: 11-21-2022 End: 11-21-[address] Basilio Flores Work Phone: [facility] Work Phone: Start: 11-21-2022 End: 11-21-[address] Basilio Flores Work Phone: [facility] Start: 11-21-[address] Basilio avendano Work Phone: [facility] Start: 11-20-2022 End: 11-20-[address] Basilio Flores Work Phone: [facility] Work Phone: Start: 10-31-2022 End: 10-31-[address] Basilio Flores Work Phone: [facility] Work Phone: Start: 10-09-2022 End: 10-09-[address] Basilio Flores Work Phone: [facility] Work Phone: Start: 10-09-2022 End: 10-09-[address] Basilio Flores Work Phone: [facility] Start: 10-09-[address] Basilio avendano Work Phone: [facility] Start: 10-05-2022 End: 10-05-[address] Basilio Flores Work Phone: [facility] Work Phone: Start: 10-05-2022 End: 10-05-[address] Basilio Flores Work Phone: [facility] Start: 10-05-[address] Basilio avendano Work Phone: [phone] [place] [address] Start: 10-04-2022 End: 10-04-[address] Basilio Flores Work Phone: [facility] Start: 10-04-[address] Basilio avendano Work Phone: [facility] Start: 09-25-2022 End: 09-25-[address] Basilio Flores Work Phone: [facility] Work Phone: Start: 09-04-2022 End: 09-04-[address] Basilio Flores Work Phone: [facility] Work Phone: Start: 09-04-2022 End: 09-04-[address] Basilio Flores Work Phone: [facility] Start: 09-03-2022 End: 09-03-[address] Basilio Flores Work Phone: [facility] Work Phone: Start: 08-07-2022 End: 08-07-[address] Basilio Flores Work Phone: [facility] Work Phone: Start: 08-07-2022 End: 08-07-[address] Basilio Flores Work Phone: [facility] Start: 08-02-2022 End: 08-02-[address] Basilio Flores Work Phone: [facility] Start: 07-24-2022 End: 07-24-[address] Basilio Flores Work Phone: [facility] Start: 07-21-2022 End: 07-21-[address] Basilio Flores Work Phone: [facility] Start: 07-13-2022 End: 07-13-[address] Basilio Flores Work Phone: [facility] Start: 07-02-2022 End: 07-02-[address] Basilio Flores Work Phone: [facility] Start: 06-15-2022 End: 06-15-[address] Basilio Flores Work Phone: [facility] Start: 06-12-2022 End: 06-12-[address] Basilio Flores Work Phone: [facility] Work Phone: Start: 06-12-2022 End: 06-12-[address] Basilio Flores Work Phone: [phone] [place] [address] Start: 05-29-2022 End: 05-29-[address] Basilio Flores Work Phone: [facility] Start: 04-17-2022 End: 04-17-[address] Basilio Flores Work Phone: [facility] Start: 04-17-[address] Basilio avendano Work Phone: [facility] Start: 04-13-2022 End: 04-13-[address] Basilio Flores Work Phone: [facility] Start: 04-13-[address] Basilio avendano Work Phone: [facility] Start: 04-10-2022 End: 04-10-[address] Basilio Flores Work Phone: [facility] Work Phone: Start: 04-10-2022 End: 04-10-[address] Basilio Flores Work Phone: [facility] Start: 04-05-2022 End: 04-05-[address] Basilio Flores Work Phone: [facility] Start: 03-27-2022 End: 03-27-[address] [facility] [facility] Start: 03-06-2022 End: 03-06-[address] Basilio Flores Work Phone: [facility] Work Phone: Start: 03-06-2022 End: 03-06-[address] Basilio Flores Work Phone: [facility] Start: 02-06-2022 End: 02-06-[address] Basilio Flores Work Phone: [facility] Work Phone: Start: 02-06-2022 End: 02-06-[address] Basilio Flores Work Phone: [facility] Start: 12-05-2021 End: 12-05-[address] Basilio lFores Work Phone: [facility] Start: 12-04-2021 End: 12-04-[address] Basilio Flores Work Phone: [facility] Start: 11-14-2021 End: 11-14-[address] Basilio Flores Work Phone: [facility] Start: 10-17-2021 End: 10-17-[address] Basilio Flores Work Phone: [facility] Start: 10-17-[address] Basilio avednano Work Phone: [facility] Start: 10-05-2021 End: 10-05-[address] Basilio Flores Work Phone: [facility] Start: 09-12-2021 End: 09-12-[address] Basilio Flores Work Phone: [facility] Start: 09-05-2021 End: 09-05-[address] Basilio Florse Work Phone: [facility] Start: 08-08-2021 End: 08-08-2021 Departed Referred [facility] Start: 08-08-2021 Registered Referred [facility] Start: 07-12-2021 End: 07-12-2021 Departed Referred [facility] Start: 03-16-2019 End: 03-16-2019 Patient encounter procedure Rachael Newman MD Work Phone: [facility] Work Phone: Procedures Date Procedure Procedure Detail Performing Clinician Start: 10-19-[address] Basilio Flores MD Work Phone: Start: 10-19-2024 Serum inorganic phosphate measurement Dr. Basilio Flores MD Work Phone: Start: 10-18-2024 Urnls dip stick/tabl et reagent auto microscopy Dr. Basilio Flores MD Work Phone: Start: 10-18-2024 CT of head without contrast Dr. Basilio Flores MD Work Phone: Start: 10-18-[address] Basilio Flores MD Work Phone: Start: 10-18-[address] Basilio Flores MD Work Phone: Start: 10-06-2024 Vitamin D, 25-hydrox y measurement [...] Treatment Date Care Activity Detail Author Start: 10-20-2024 Patient discharge [facility] Start: 10-19-2024 End: 10-19-2024 [facility] Start: 10-19-[address] [facility] Start: 10-19-2024 Notification of physician [facility] Start: 10-19-2024 Wound care [facility] Start: 10-19-2024 Care planning and problem solving actions [facility] Start: 10-18-2024 Following clinical pathway protocol [facility] Start: 10-18-2024 Application of ice collar, cap or bag [facility] Start: 10-18-2024 Assessment of risk of venous thromboembolism [facility] Start: 10-18-[address] [facility] Start: 10-18-2024 Consultation for treatment [facility] Start: 10-18-2024 Insertion of catheter into peripheral vein [facility] Start: 10-18-2024 Measuring intake and output [facility] Start: 10-18-2024 Oxygen therapy [facility] Start: 10-18-2024 Patient referral to dietitian [facility] Start: 10-18-2024 Providing care according to standard [facility] Start: 10-18-2024 Provision of activity privileges [facility] Start: 10-18-2024 Referral to occupational therapist [facility] Start: 10-18-2024 Referral to service [facility] Start: 10-18-2024 [facility] Start: 10-18-2024 Verification routine [facility] Start: 10-18-2024 Admission procedure [facility] Start: 10-18-2024 Hospital admission, emergency, from emergency room, medical nature [facility] Start: 10-18-2024 End: 10-18-2024 [facility] Start: 10-18-2024 End: 10-19-2024 [facility] Start: 10-18-2024 Bacteria identified in Blood by Culture Blood Culture [facility] Start: 10-18-2024 Bacteria identified in Urine by Culture Urine Culture [facility] Start: 10-18-2024 Consultation [facility] Start: 08-24-2024 Injection aa&/strd genicular nrv branches w/img NJX AA&/STRD GNCLR NRV BRNCH [facility] Start: 08-24-2024 Fluoroscopic guidance [facility] Start: 08-24-2024 Patient discharge [facility] Start: 06-08-2023 [facility] Start: 06-05-2023 Simple repair f/e/e/n/l/m 2.5cm/< RPR F/E/E/N/L/M 2.5 CM/< [facility] Start: 06-05-2023 [facility] Start: 03-16-2019 End: 03-16-2019 Appointment Appointment [facility] Work Phone: Patient Education [facility] Work Phone: Patient referral [facility] Work Phone: Urine culture [facility] Immunizations Immunization Date Immunization Notes Care Provider Ravi lynn 06-05-2023 tetanus toxoid, redu lloyd diphtheria toxoid, and acellular pertussis vaccine, adsorbed Dr. Basilio Flores Work Phone: [facility] 02-23-2015 Influenza virus vaccine [facility] Payers Date Payer Category Payer Self-pay [id number] 2023 Medicare [id number] 2023 Unknown [id number] Unknown [id number] Unknown [id number] 2.16.8 40.1.291117.3.579.2.462 Unknown [id number] 2.16.8 40.1.918966.3.579.2.462 Unknown [id number] 2.16.8 40.1.894600.3.579.2.462 Unknown [id number] 2.16.8 40.1.847050.3.579.2.462 Unknown [id number] 2.16.8 40.1.798578.3.579.2.462 Unknown [id number] 2.16.8 40.1.817169.3.579.2.462 Unknown [id number] 2.16.8 40.1.513354.3.579.2.462 Unknown [id number] 2.16.8 40.1.496113.3.579.2.462 Unknown [id number] 2.16.8 40.1.282180.3.579.2.462 Unknown [id number] 2.16.8 40.1.778325.3.579.2.462 Unknown [id number] 2.16.8 40.1.492750.3.579.2.462 Unknown [id number] 2.16.8 40.1.893140.3.579.2.462 Unknown [id number] 2.16.8 40.1.258863.3.579.2.462 Unknown [id number] 2.16.8 40.1.307035.3.579.2.462 Unknown [id number] 2.16.8 40.1.021835.3.579.2.462 Unknown [id number] 2.16.8 40.1.753801.3.579.2.462 Unknown [id number] 2.16.8 40.1.840821.3.579.2.462 Unknown [id number] 2.16.8 40.1.010852.3.579.2.462 Unknown [id number] 2.16.8 40.1.696239.3.579.2.462 Unknown [id number] 2.16.8 40.1.303664.3.579.2.462 Unknown [id number] 2.16.8 40.1.975007.3.579.2.462 Unknown [id number] 2.16.8 40.1.074211.3.579.2.462 Unknown [id number] 2.16.8 40.1.690172.3.579.2.462 Unknown [id number] 2.16.8 40.1.500047.3.579.2.462 Unknown [id number] 2.16.8 40.1.790459.3.579.2.462 Unknown [id number] 2.16.8 40.1.736539.3.579.2.462 Unknown [id number] 2.16.8 40.1.090288.3.579.2.462 Unknown [id number] 2.16.8 40.1.953021.3.579.2.462 Unknown [id number] 2.16.8 40.1.752717.3.579.2.462 Unknown [id number] 2.16.8 40.1.939959.3.579.2.462 Unknown [id number] 2.16.8 40.1.578412.3.579.2.462 Unknown [id number] 2.16.8 40.1.831195.3.579.2.462 Social History Date Type Detail Facility Start: 12-16-2019 End: 06-08-2023 Tobacco smoking status AKIS Unknown if ever smoked [facility] Start: 12-16-2019 None [facility] Start: 12-16-2019 Group Home [facility] Start: 12-16-2019 Non-smoker [facility] Start: 1940 Sex Assigned At Female [facility] Start: 06-08-2023 End: 10-18-2024 Tobacco smoking status NHIS Never smoked tobacco (finding) [facility] Start: 08-06-2024 End: 08-24-2024 Sex Female (finding) [facility] NEGATED: Highlighted rowStart: 03-16-2019 End: 03-16-2019 Alcohol use Alcohol use [facility] Work Phone: NEGATED: Highlighted rowStart: 03-16-2019 End: 03-16-2019 Details of drug misuse behavior Details of drug misuse behavior [facility] Work Phone: NEGATED: Highlighted rowStart: 03-16-2019 End: 03-16-2019 Assertion Never smoker [facility] Work Phone: Goals Date Patient Goal Desired Activity /State Functional Status Date Assessment Result Facility 10-20-2024 Functional status Patient Activi ty Bathroom Privilege [facility] Work Phone: 10-20-2024 Functional status Activity Abili ty With Assist of 1 [facility] Work Phone: 10-20-2024 Functional status Standard Walker [facility] Work Phone: Mental Status Date Assessment Result Facility 10-20-2024 Cognitive function Voice/Name [facility] Work Phone: 10-18-2024 Cognitive function Level Of Cons ciousness Awake;Appropriate;Follows Commands;Disoriented [facility] Work Phone: 08-24-2024 Cognitive function Voice/Name [facility] Work Phone: Clinical Notes 06-05-2023 to 10-20-2024 Note Date & Type Note Facility 10-20-2024 Discharge summary Note Date/Time October 20, 2024 3:53pm [facility] Medical Records Department [address] [place] [address] Discharge Summary 10/20/24 1535 MR#: [id number] Acct: [id number] Name: JUSTUS CHINCHILLA Rep #:[id number] : 1940 84 From: Ángel cuenca MD PCP: Dr. Donato Sepulveda MD Status:A DM IN Location: [place] [id number] Providers Date of Admission: 10/18/24 Primary Care Physician: Dr. Donato Sepulveda MD Consultations 10/18/24 22:14 Consult: Onc/Wound/staffing director Routine Comment: Reason For Visit: SEVERE HYPOGLYCEMIA/UTI Diagnosis Discharge Diagnosis (1) Diabetic hypoglycemia: Status: Acute Code(s): E11.649 - Type 2 diabetes mellitus with hypoglycemia without coma Medications at Discharge Home Medications acetaminophen 325 mg tablet 325 mg PO BID CHRONIC PAIN 09/20/17 dapagliflozin propanediol 10 mg tablet (Farxiga) 10 mg PO DAILY 06/05/23 Held on 10/20/24. Instructions: Resume on 10/26/24. furosemide 20 mg tablet 20 mg PO DAILY 06/05/23 linaclotide 290 mcg capsule (Linzess) 290 mcg PO DAILY 06/05/23 potassium chloride 20 mEq tablet,extended release(part/cryst) 40 meq PO DAILY 06/05/23 glucagon 1 mg solution for injection (Glucagon Emergency Kit) 1 mg IM PRN 06/08/23 dulaglutide 4.5 mg/0.5 mL subcutaneous pen injector (Trulicity) 4.5 mg subcut QWEEK 08/24/24 Held on 10/20/24. Instructions: Resume on 10/26/24. oxycodone 5 mg tablet 5 mg PO BID pain 30 days #60 tabs 09/29/24 acetaminophen 325 mg tablet 650 mg PO Q4H PRN fever or pain 10/18/24 aluminum-mag hydroxide-simethicone 400 mg-400 mg-40 mg/5 mL oral susp (Advanced Antacid-Antigas) 15 ml PO Q4H PRN indigestion 10/18/24 cholecalciferol (vitamin D3) 50 mcg (2,000 unit) tablet (D3 DOTS) 50 mcg PO DAILY 10/18/24 dextran 70-hypromellose 0.1 %-0.3 % eye drops (GenTeal Tears Mild) 1 drp EACH EYE BID 10/18/24 metformin 1,000 mg tablet 1,000 mg PO BID 10/18/24 Held on 10/20/24. Instructions: Resume on 10/26/24. ondansetron 4 mg disintegrating tablet 4 mg PO Q6H PRN nausea and vomiting 10/18/24 polyethylene glycol 3350 17 gram/dose oral powder (ClearLax) 17 g PO QODAY 10/18/24 duloxetine 30 mg capsule,delayed release 30 mg PO DAILY depression 10/19/24 lidocaine 4 % topical patch (Aspercreme (lidocaine)) 1 patch topical BID PRN pain 10/19/24 cefdinir 300 mg capsule 300 mg PO BID 3 days #6 caps 10/20/24 insulin glargine 100 unit/mL (3 mL) subcutaneous pen (Lantus Solostar U-100 Insulin) 10 unit (0.1 mL) subcut DAILY 1 day #0 mL 10/20/24 Hospital Course Operations None Procedures None Summary of Care Provided Minutes Spent on Discharge: 32 Hospital Course: Per HPI: JUSTUS CHINCHILLA, is a 84 F who presented to the emergency department at [facility] on 10/18/2024 with chief complaint of head trauma after a fall and altered mental status. Patient had an unwitnessed fall was found on the ground. She had a forehead hematoma with a small laceration as well as a skin tear on her left arm. She was noted to be markedly confused so the EMS was called. Blood sugar was assessed on arrival and was 32 patient was diaphoretic at that time as well. She was treated by the squad and after arrival to the emergency department she was more alert but still somewhat confused. By the time we were able to evaluate her she was very talkative and back to normal as she had been treated with dextrose via IV. She has baseline confusion per family and seems to be at her baseline at the time of my admission. She does have a history of diabetes and takes quite a bit of medication. Family reports that her oral intake is poor at the nursing facility. Patient states the food is "terrible." Patient unable to remember when the last time she ate today was. Vital signs on presentation showed temperature 97.9, heart rate 91, respiratory 13, blood pressure was 162/92 and pulse ox was 100% room air. CBC did show significant leukocytosis with a white count of 20,000. She does seem to be hemoconcentrated as her hemoglobin was also are elevated compared to her baseline from just about a week ago at 15.5 with her hemoglobin a week ago being11.9. She does have a left shift with an 89.4% neutrophilia. Coags are normal. Chemistry panel shows mild hypokalemia with potassium of 3.2. Slight anion gapat 17 with a normal CO2. Renal function is normal. Glucose on BMP was 16. Lactic acid was 2.8. Liver functions are unremarkable. Urine is suggestive of infection and some dehydration with nitrite, leuk esterase, white cells, and 4+ bacteria. CT of the brain shows no acute infarct, cranial hemorrhage or mass effect. There are no signs of normal pressure hydrocephalus and mild to moderate chronic microvascular changes without area of mild anterior frontal scalp swelling. In the emergency department she was put on a D10 drip with improvement of her blood sugars. As her blood sugar improved her mentation improved as well. By the time of admission family thought that she was close to her baseline mentation. Hospital Course: 1. Metabolic encephalopathy secondary to severe hypoglycemia and a pansensitiveE. coli UTI with generalized weakness and falls?84-year-old female presenting from the residential was found to have a blood sugar of 19. On admission she was also found to have a leukocytosis and a urine sample was obtained which was fairly consistent with UTI so culture was obtained demonstrating a pansensitive E. coli. She was empirically started on Rocephin and with the pansensitive E. coli transition to cefdinir on discharge. Her blood sugar improved significantly with holding all of her home hypoglycemics as she has poor p.o. intake at baseline because she does not like the food at the residential apparently. I recommend holding all of her home hypoglycemics for now I did reinstitute 10 units of Lantus instead of the 43 she had been on and I recommendfollowing a sliding scale insulin per institutional policies at the nursing homeuntil we see what her blood sugars are doing and then slowly add back on medications to try to avoid another severe hypoglycemic event. She feels bettertoday than she did yesterday and would like to go back to the residential if possible today. 2. Essential hypertension, type 2 diabetes, irritable bowel syndrome with chronic constipation complicated by chronic pain with chronic narcotic use, history of Parkinson's disease and mild cognitive impairment are all chronic medical conditions which complicate her care. Her home medications were continued where appropriate Physical Exam Narrative General: Alert, Oriented x3, Cooperative, No apparent distress, severely kyphotic HEENT: Atraumatic, PERRLA, EOMI, Normocephalic Oral: Moist Mucosa Neck: Supple, No JVD Lungs: Diminished, Normal air movement, No rhonchi, No wheeze, No rales Cardiovascular: Regular rate, Regular Rhythm, Normal S1, Normal S2, No murmurs Abdomen: Soft, Non Tender, Non-Distended, No Hepato-splenomegaly Extremities: Edema, Capillary Refill Less than 3 Seconds Skin: No rashes, No breakdown Musculoskeletal: No Tenderness to Palpation of Joints or Extremities Neurological: No focal neurological deficits, Motor Exam 5/5 strength throughout, Sensory exam intact to light touch and pain Psych/Mental Status: Normal Affect, Appropriate Weight / BMI Weight Weight: 115 lb 8.356 oz Body Mass Index (BMI) 19.7 ABG / Lab / Microbiology Data 10/19/24 05:35 10/19/24 05:35 Laboratory: Laboratory Results - last 24 hr 10/19/24 16:34: POC Glucose 291 H 10/19/24 21:22: POC Glucose 313 H 10/20/24 06:36: POC Glucose 154 H 10/20/24 12:17: POC Glucose 296 H Microbiology: Microbiology 10/18/24 19:41 Urine, Catheterized Urine Culture - Final Escherichia coli D/C Instructions DC O2, CPAP, BIPAP Needs Home O2 Discharge instructions: No Meaningful Use Info Meaningful Use Meaningful Use Diagnoses (Choose all that apply): None applicable Ischemic Stroke Statin Dosing Therapy Reference: STATIN DOSE THERAPY REFERENCE: * Patients > 75 years receive moderate or high dose statin therapy. * Patients 75 years or YOUNGER should receive HIGH intensity statin dose unless contraindicated. You will be required to document reason for non-treatment if statin daily dose does not meet guidelines. HIGH DOSE STATIN THERAPY DAILY Atorvastatin > than or = to 40 mg Rosuvastatin > than or = to 20 mg Amlodipine + Atorvastatin > than or = to 2.5/40 mg Ezetimibe + Simvastatin 10/80 mg Simvastatin 80mg Discharge Plan Admission Admit Date/Time: 10/18/24 21:38 Attending Provider: Ángel Lam Primary Care Provider: Donato Sepulveda Consulting Providers: Anali Coello Discharge Orders/Prescriptions Prescriptions: New cefdinir 300 mg capsule 300 mg PO BID 3 Days Qty: 6 0RF Continued acetaminophen 325 MG tablet 325 mg PO BID Linzess 290 mcg capsule 290 mcg PO DAILY potassium chloride 20 mEq tablet,ER particles/crystals 40 meq PO DAILY furosemide 20 mg tablet 20 mg PO DAILY Glucagon Emergency Kit (human) 1 mg recon soln 1 mg IM PRN alum-mag hydroxide-simeth [Advanced Antacid-Antigas] 400-400-40 mg/5 mL suspension 15 ml PO Q4H PRN (Reason: indigestion) Rx Instructions: do not exceed 12 doses in a 24 hour period polyethylene glycol 3350 [ClearLax] 17 gram/dose powder 17 g PO QODAY ondansetron 4 mg tablet,disintegrating 4 mg PO Q6H PRN (Reason: nausea and vomiting) acetaminophen 325 mg tablet 650 mg PO Q4H PRN (Reason: fever or pain) cholecalciferol (vitamin D3) [D3 DOTS] 50 mcg (2,000 unit) tablet 50 mcg PO DAILY GenTeal Tears Mild 0.1-0.3 % drops 1 drp EACH EYE BID lidocaine [Aspercreme (lidocaine)] 4 % adhesive patch,medicated 1 patch topical BID PRN (Reason: pain) duloxetine 30 mg capsule,delayed release(DR/EC) 30 mg PO DAILY oxycodone 5 mg tablet 5 mg PO BID 30 Days Qty: 60 0RF Changed insulin glargine [Lantus Solostar U-100 Insulin] 100 unit/mL (3 mL) insulin pen 10 unit SUBCUT DAILY 1 Days Qty: 0 0RF Held dapagliflozin propanediol [Farxiga] 10 mg tablet 10 mg PO DAILY Hold Instructions: Resume on 10/26/24. metformin 1,000 mg tablet 1,000 mg PO BID Hold Instructions: Resume on 10/26/24. Trulicity 4.5 mg/0.5 mL pen injector 4.5 mg subcut QWEEK Hold Instructions: Resume on 10/26/24. Patient Comments: PT TAKES ON WEDNESDAYS Referrals / Follow Up: Donato Sepulveda MD [Primary Care Provider] - Disposition Disposition (needs filled in before D/C Order can be placed): Group Home Facility Charges/Coding Visit Charges Inpatient E&M: 92128 Disch Hosp >30min 10/20/24 1553 <Electronically signed by Ángel Lam MD> Cosigner Signature (if applicable): CC: Dr. Donato Sepulveda MD; Dr. Ángel Lam MD~ Signed [facility] Work Phone: [phone] 845-830506-17-2025 Discharge summary [facility] Medical Records Department [address] [place] [id number] Discharge Summary 10/20/24 1535 MR#: [id number] Acct: [id number] Name: JUSTUS CHINCHILLA Rep #:[id number] : 1940 84 From: Ángel cuenca MD PCP: Dr. Donato Sepulveda MD Status:A DM IN Location: [id number]- 1 Providers Date of Admission: 10/18/24 Primary Care Physician: Dr. Donato Sepulveda MD Consultations 10/18/24 22:14 Consult: Onc/Wound/staffing director Routine Comment: Reason For Visit: SEVERE HYPOGLYCEMIA/UTI Diagnosis Discharge Diagnosis (1) Diabetic hypoglycemia: Status: Acute Code(s): E11.649 - Type 2 diabetes mellitus with hypoglycemia without coma Medications at Discharge Home Medications acetaminophen 325 mg tablet 325 mg PO BID CHRONIC PAIN 09/20/17 dapagliflozin propanediol 10 mg tablet (Farxiga) 10 mg PO DAILY 06/05/23 Held on 10/20/24. Instructions: Resume on 10/26/24. furosemide 20 mg tablet 20 mg PO DAILY 06/05/23 linaclotide 290 mcg capsule (Linzess) 290 mcg PO DAILY 06/05/23 potassium chloride 20 mEq tablet,extended release(part/cryst) 40 meq PO DAILY 06/05/23 glucagon 1 mg solution for injection (Glucagon Emergency Kit) 1 mg IM PRN 06/08/23 dulaglutide 4.5 mg/0.5 mL subcutaneous pen injector (Trulicity) 4.5 mg subcut QWEEK 08/24/24 Held on 10/20/24. Instructions: Resume on 10/26/24. oxycodone 5 mg tablet 5 mg PO BID pain 30 days #60 tabs 09/29/24 acetaminophen 325 mg tablet 650 mg PO Q4H PRN fever or pain 10/18/24 aluminum-mag hydroxide-simethicone 400 mg-400 mg-40 mg/5 mL oral susp (Advanced Antacid-Antigas) 15ml PO Q4H PRN indigestion 10/18/24 cholecalciferol (vitamin D3) 50 mcg (2,000 unit) tablet (D3 DOTS) 50 mcg PO DAILY 10/18/24 dextran 70-hypromellose 0.1 %-0.3 % eye drops (GenTeal Tears Mild) 1 drp EACH EYE BID 10/18/24 metformin 1,000 mg tablet 1,000 mg PO BID 10/18/24 Held on 10/20/24. Instructions: Resume on 10/26/24. ondansetron 4 mg disintegrating tablet 4 mg PO Q6H PRN nausea and vomiting 10/18/24 polyethylene glycol 3350 17 gram/dose oral powder (ClearLax) 17 g PO QODAY 10/18/24 duloxetine 30 mg capsule,delayed release 30 mg PO DAILY depression 10/19/24 lidocaine 4 % topical patch (Aspercreme (lidocaine)) 1 patch topical BID PRN pain 10/19/24 cefdinir 300 mg capsule 300 mg PO BID 3 days #6 caps 10/20/24 insulin glargine 100 unit/mL (3 mL) subcutaneous pen (Lantus Solostar U-100 Insulin) 10 unit (0.1 mL) subcut DAILY 1 day #0 mL 10/20/24 Hospital Course Operations None Procedures None Summary of Care Provided Minutes Spent on Discharge: 32 Hospital Course: Per HPI: JUSTUS CHINCHILLA, is a 84 F who presented to the emergency department at [facility] on 10/18/2024 with chief complaint of head trauma after a fall and altered mental status. Patient had an unwitnessed fall was found on the ground. She had a forehead hematoma with a small laceration as well as a skin tear on her left arm. She was noted to be markedly confused so the EMS was called. Blood sugar was assessed on arrival and was 32 patient was diaphoretic at that time as well. She was treated by the squad and after arrival to the emergency department she was more alert but still somewhat confused. By the time we were able to evaluate her she was very talkative and back to normal as she had been treated with dextrose via IV. She has baseline confusion per family and seems risa at her baseline at the time of my admission. She does have a history of diabetes and takes quitea bit of medication. Family reports that her oral intake is poor at the nursing facility. Patient states the food is "terrible." Patient unable to remember when the last time she ate today was. Vital signs on presentation showed temperature 97.9, heart rate 91, respiratory 13, blood pressure was 162/92 and pulse ox was 100% room air. CBC did show significant leukocytosis with a white count of 20,000. She does seem to be hemoconcentrated as her hemoglobin was also are elevated compared to her baseline from just about a week ago at 15.5 with her hemoglobin a week ago being11.9. She does have a left shift with an 89.4% neutrophilia. Coags are normal. Chemistry panel shows mild hypokalemia with potassium of 3.2. Slight anion gapat 17 with a normal CO2. Renal function is normal. Glucose on BMP was 16. Lactic acid was 2.8. Liver functions are unremarkable. Urine is suggestive of infection and some dehydration with nitrite, leuk esterase, white cells, and 4+ bacteria. CT of the brain shows no acute infarct, cranial hemorrhage or mass effect. There are no signs of normal pressure hydrocephalus and mild to moderate chronic microvascular changes without area of mild anterior frontal scalp swelling. In the emergency department she was put on a D10 drip with improvement of her blood sugars. As her blood sugar improved her mentation improved as well. By the time of admission family thought that she was close to her baseline mentation. Hospital Course: 1. Metabolic encephalopathy secondary to severe hypoglycemia and a pansensitiveE. coli UTI with generalized weakness and falls?84-year-old female presenting from the residential was found to have a blood sugar of 19. On admission she was also found to have a leukocytosis and a urine sample was obta ined which was fairly consistent with UTI so culture was obtained demonstrating a pansensitive E. coli. She was empirically started on Rocephin and with the pansensitive E. coli transition to cefdinir on discharge. Her blood sugar improved significantly with holding all of her home hypoglycemics asshe has poor p.o. intake at baseline because she does not like the food at the residential apparently. I recommend holding all of her home hypoglycemics for now I did reinstitute 10 units of Lantus instead of the 43 she had been on and I recommendfollowing a sliding scale insulin per institutionalpolicies at the nursing homeuntil we see what her blood sugars are doing and then slowly add back on medications to try to avoid another severe hypoglycemic event. She feels bettertoday than she did yesterday and would like to go back to the residential if possible today. 2. Essential hypertension, type 2 diabetes, irritable bowel syndrome with chronic constipation complicated by chronic pain with chronic narcotic use, history of Parkinson's disease and mild cognitiveimpairment are all chronic medical conditions which complicate her care. Her home medications were c ontinued where appropriate Physical Exam Narrative General: Alert, Oriented x3, Cooperative, No apparent distress, severely kyphotic HEENT: Atraumatic, PERRLA, EOMI, Normocephalic Oral: Moist Mucosa Neck: Supple, No JVD Lungs: Diminished, Normal air movement, No rhonchi, No wheeze, No rales Cardiovascular: Regular rate, Regular Rhythm, Normal S1, Normal S2, No murmurs Abdomen: Soft, Non Tender, Non-Distended, No Hepato-splenomegaly Extremities: Edema, Capillary Refill Less than 3 Seconds Skin: No rashes, No breakdown Musculoskeletal: No Tenderness to Palpation of Joints or Extremities Neurological: No focal neurological deficits, Motor Exam 5/5 strength throughout, Sensory exam intact to light touch and pain Psych/Mental Status: Normal Affect, Appropriate Weight / BMI Weight Weight: 115 lb 8.356 oz Body Mass Index (BMI) 19.7 ABG / Lab / Microbiology Data 10/19/24 05:35 10/19/24 05:35 Laboratory: Laboratory Results - last 24 hr 10/19/24 16:34: POC Glucose 291 H 10/19/24 21:22: POC Glucose 313 H 10/20/24 06:36: POC Glucose 154 H 10/20/24 12:17: POC Glucose 296 H Microbiology: Microbiology 10/18/24 19:41 Urine, Catheterized Urine Culture - Final Escherichia coli D/C Instructions DC O2, CPAP, BIPAP Needs Home O2 Discharge instructions: No Meaningful Use Info Meaningful Use Meaningful Use Diagnoses (Choose all that apply): None applicable Ischemic Stroke Statin Dosing Therapy Reference: STATIN DOSE THERAPY REFERENCE: * Patients > 75 years receive moderate or high dose statin therapy. * Patients 75 years or YOUNGER should receive HIGH intensity statin dose unless contraindicated. You will be required to document reason for non-treatment if statin daily dose does not meet guidelines. HIGH DOSE STATIN THERAPY DAILY Atorvastatin > than or = to 40 mg Rosuvastatin > than or = to 20 mg Amlodipine + Atorvastatin > than or = to 2.5/40 mg Ezetimibe + Simvastatin 10/80 mg Simvastatin 80mg Discharge Plan Admission Admit Date/Time: 10/18/24 21:38 Attending Provider: Ángel Lam Primary Care Provider: Donato Sepulveda Consulting Providers: Anali Coello Discharge Orders/Prescriptions Prescriptions: New cefdinir 300 mg capsule 300 mg PO BID 3 Days Qty: 6 0RF Continued acetaminophen 325 MG tablet 325 mg PO BID Linzess 290 mcg capsule 290 mcg PO DAILY potassium chloride 20 mEq tablet,ER particles/crystals 40 meq PO DAILY furosemide 20 mg tablet 20 mg PO DAILY Glucagon Emergency Kit (human) 1 mg recon soln 1 mg IM PRN alum-mag hydroxide-simeth [Advanced Antacid-Antigas] 400-400-40 mg/5 mL suspension 15 ml PO Q4H PRN (Reason: indigestion) Rx Instructions: do not exceed 12 doses in a 24 hour period polyethylene glycol 3350 [ClearLax] 17 gram/dose powder 17 g PO QODAY ondansetron 4 mg tablet,disintegrating 4 mg PO Q6H PRN (Reason: nausea and vomiting) acetaminophen 325 mg tablet 650 mg PO Q4H PRN (Reason: fever or pain) cholecalciferol (vitamin D3) [D3 DOTS] 50 mcg (2,000 unit) tablet 50 mcg PO DAILY GenTeal Tears Mild 0.1-0.3 % drops 1 drp EACH EYE BID lidocaine [Aspercreme (lidocaine)] 4 % adhesive patch,medicated 1 patch topical BID PRN (Reason: pain) duloxetine 30 mg capsule,delayed release(DR/EC) 30 mg PO DAILY oxycodone 5 mg tablet 5 mg PO BID 30 Days Qty: 60 0RF Changed insulin glargine [Lantus Solostar U-100 Insulin] 100 unit/mL (3 mL) insulin pen 10 unit SUBCUT DAILY 1 Days Qty: 0 0RF Held dapagliflozin propanediol [Farxiga] 10 mg tablet 10 mg PO DAILY Hold Instructions: Resume on 10/26/24. metformin 1,000 mg tablet 1,000 mg PO BID Hold Instructions: Resume on 10/26/24. Trulicity 4.5 mg/0.5 mL pen injector 4.5 mg subcut QWEEK Hold Instructions: Resume on 10/26/24. Patient Comments: PT TAKES ON WEDNESDAYS Referrals / Follow Up: Donato Sepulveda MD [Primary Care Provider] - Disposition Disposition (needs filled in before D/C Order can be placed): Group Home Facility Charges/Coding Visit Charges Inpatient E&M: 77915 Disch Hosp >30min 10/20/24 1553 Cosigner Signature (if applicable): CC: Dr. Donato Sepulveda MD; Dr. Ángel Lam MD~ Signed [facility]06-17-2025 [facility] Medical Records Department [address] [place] [address] Discharge Summary 10/20/24 1535 MR#: [id number] Acct: [id number] Name: JUSTUS CHINCHILLA Rep #: [id number] : 1940 84 From: Ángel Lam MD PCP: Dr. Donato Sepulveda MD Status:ADM IN Location: [facility] [id number] Providers Date of Admission: 10/18/24 Primary Care Physician: Dr. Donato Sepulveda MD Consultations 10/18/24 22:14 Consult: Onc/Wound/staffing director Routine Comment: Reason For Visit: SEVERE HYPOGLYCEMIA/UTI Diagnosis Discharge Diagnosis (1) Diabetic hypoglycemia: Status: Acute Code(s): E11.649 - Type 2 diabetes mellitus with hypoglycemia without coma Medications at Discharge Home Medications acetaminophen 325 mg tablet 325 mg PO BID CHRONIC PAIN 09/20/17 dapagliflozin propanediol 10 mg tablet (Farxiga) 10 mg PO DAILY 06/05/23 Held on 10/20/24. Instructions: Resume on 10/26/24. furosemide 20 mg tablet 20 mg PO DAILY 06/05/23 linaclotide 290 mcg capsule (Linzess) 290 mcg PO DAILY 06/05/23 potassium chloride 20 mEq tablet,extended release(part/cryst) 40 meq PO DAILY 06/05/23 glucagon 1 mg solution for injection (Glucagon Emergency Kit) 1 mg IM PRN 06/08/23 dulaglutide 4.5 mg/0.5 mL subcutaneous pen injector (Trulicity) 4.5 mg subcut QWEEK 08/24/24 Held on 10/20/24. Instructions: Resume on 10/26/24. oxycodone 5 mg tablet 5 mg PO BID pain 30 days #60 tabs 09/29/24 acetaminophen 325 mg tablet 650 mg PO Q4H PRN fever or pain 10/18/24 aluminum-mag hydroxide-simethicone 400 mg-400 mg-40 mg/5 mL oral susp (Advanced Antacid-Antigas) 15 ml PO Q4H PRN indigestion 10/18/24 cholecalciferol (vitamin D3) 50 mcg (2,000 unit) tablet (D3 DOTS) 50 mcg PO DAILY 10/18/24 dextran 70-hypromellose 0.1 %-0.3 % eye drops (GenTeal Tears Mild) 1 drp EACH EYE BID 10/18/24 metformin 1,000 mg tablet 1,000 mg PO BID 10/18/24 Held on 10/20/24. Instructions: Resume on 10/26/24. ondansetron 4 mg disintegrating tablet 4 mg PO Q6H PRN nausea and vomiting 10/18/24 polyethylene glycol 3350 17 gram/dose oral powder (ClearLax) 17 g PO QODAY 10/18/24 duloxetine 30 mg capsule,delayed release 30 mg PO DAILY depression 10/19/24 lidocaine 4 % topical patch (Aspercreme (lidocaine)) 1 patch topical BID PRN pain 10/19/24 cefdinir 300 mg capsule 300 mg PO BID 3 days #6 caps 10/20/24 insulin glargine 100 unit/mL (3 mL) subcutaneous pen (Lantus Solostar U-100 Insulin) 10 unit (0.1 mL) subcut DAILY 1 day #0 mL 10/20/24 Hospital Course Operations None Procedures None Summary of Care Provided Minutes Spent on Discharge: 32 Hospital Course: Per HPI: JUSTUS CHINCHILLA, is a 84 F who presented to the emergency department at [facility] on 10/18/2024 with chief complaint of head trauma after a fall and altered mental status. Patient had an unwitnessed fall was found on the ground. She had a forehead hematoma with a small laceration as well as a skin tear on her left arm. She was noted to be markedly confused so the EMS was called. Blood sugar was assessed on arrival and was 32 patient was diaphoretic at that time as well. She was treated by the squad and after arrival to the emergency department she was more alert but still somewhat confused. By the time we were able to evaluate her she was very talkative and back to normal as she had been treated with dextrose via IV. She has baseline confusion per family and seems to be at her baseline at the time of my admission. She does have a history of diabetes and takes quite a bit of medication. Family reports that her oral intake is poor at the nursing facility. Patient states the food is "terrible." Patient unable to remember when the last time she ate today was. Vital signs on presentation showed temperature 97.9, heart rate 91, respiratory 13, blood pressure was 162/92 and pulse ox was 100% room air. CBC did show significant leukocytosis with a white count of 20,000. She does seem to be hemoconcentrated as her hemoglobin was also are elevated compared to her baseline from just about a week ago at 15.5 with her hemoglobin a week ago being 11.9. She does have a left shift with an 89.4% neutrophilia. Coags are normal. Chemistry panel shows mild hypokalemia with potassium of 3.2. Slight anion gap at 17 with a normal CO2. Renal function is normal. Glucose on BMP was 16. Lactic acid was 2.8. Liver functions are unremarkable. Urine is suggestive of infection and some dehydration with nitrite, leuk esterase, white cells, and 4+ bacteria. CT of the brain shows no acute infarct, cranial hemorrhage or mass effect. There are no signs of normal pressure hydrocephalus and mild to moderate chronic microvascular changes without area of mild anterior frontal scalp swelling. In the emergency department she was put on a D10 drip with improvement of her blood sugars. As her blood sugar improved her mentation (more content not included)...[facility]06-17-2025 Consult note Author Perla Jaimes [facility] Note Date/Time October 20, 2024 11:[address] [facility] Medical Records Department [address] [place] [address] Counseling Note - Pharmacy 10/20/24 1148 MR#: [id number] Acct: [id number] Name: JUSTUS CHINCHILLA Rep #:[id number] : 1940 84 From: Perla Jaimes PCP: Dr. Donato Sepulveda MD Status:A DM IN Y Location: [address] 1 Pharmacy [place] Med Reconciliation Pharmacy Service has performed discharge medication reconciliation for this patient. The patient's discharge medication list was reviewed for discrepancies and discrepancies were resolved. Medications at Discharge Home Medications acetaminophen 325 mg tablet 325 mg PO BID CHRONIC PAIN 09/20/17 dapagliflozin propanediol 10 mg tablet (Farxiga) 10 mg PO DAILY 06/05/23 Held on 10/20/24. Instructions: Resume on 10/26/24. furosemide 20 mg tablet 20 mg PO DAILY 06/05/23 linaclotide 290 mcg capsule (Linzess) 290 mcg PO DAILY 06/05/23 potassium chloride 20 mEq tablet,extended release(part/cryst) 40 meq PO DAILY 06/05/23 glucagon 1 mg solution for injection (Glucagon Emergency Kit) 1 mg IM PRN 06/08/23 dulaglutide 4.5 mg/0.5 mL subcutaneous pen injector (Trulicity) 4.5 mg subcut QWEEK 08/24/24 Held on 10/20/24. Instructions: Resume on 10/26/24. oxycodone 5 mg tablet 5 mg PO BID pain 30 days #60 tabs 09/29/24 acetaminophen 325 mg tablet 650 mg PO Q4H PRN fever or pain 10/18/24 aluminum-mag hydroxide-simethicone 400 mg-400 mg-40 mg/5 mL oral susp (Advanced Antacid-Antigas) 15 ml PO Q4H PRN indigestion 10/18/24 cholecalciferol (vitamin D3) 50 mcg (2,000 unit) tablet (D3 DOTS) 50 mcg PO DAILY 10/18/24 dextran 70-hypromellose 0.1 %-0.3 % eye drops (GenTeal Tears Mild) 1 drp EACH EYE BID 10/18/24 metformin 1,000 mg tablet 1,000 mg PO BID 10/18/24 Held on 10/20/24. Instructions: Resume on 10/26/24. ondansetron 4 mg disintegrating tablet 4 mg PO Q6H PRN nausea and vomiting 10/18/24 polyethylene glycol 3350 17 gram/dose oral powder (ClearLax) 17 g PO QODAY 10/18/24 duloxetine 30 mg capsule,delayed release 30 mg PO DAILY depression 10/19/24 lidocaine 4 % topical patch (Aspercreme (lidocaine)) 1 patch topical BID PRN pain 10/19/24 cefdinir 300 mg capsule 300 mg PO BID 3 days #6 caps 10/20/24 insulin glargine 100 unit/mL (3 mL) subcutaneous pen (Lantus Solostar U-100 Insulin) 10 unit (0.1 mL) subcut DAILY 1 day #0 mL 10/20/24 10/20/24 1148 <Electronically signed by Perla Jaimes> Date _ Perla Jaimes Cosigner Signature (if applicable): Date CC: ~ Signed [facility] Work Phone: [phone]) 393-479706-17-2025 Discharge summary Author Ángel Lam [facility] Note Date/Time October 20, 2024 11:2 0am [facility] Medical Records Department [address] [place] [address] Transfer to [facility] Care MR#: [id number] Acct: [id number] Name: JUSTUS CHINCHILLA Rep #:[id number] : 1940 84 From: Ángel cuenca MD PCP: Dr. Donato Sepulveda MD Status:A DM IN Certification of patient admission REQUIRED AT TIME OF ADMISSION. I CERTIFY THAT POST-HOSPITAL ECF SERVICES ARE REQUIRED TO BE GIVEN ON AN IN-PATIENT BASIS BECAUSE OF THE ABOVE NAMED PATIENT'S NEED FOR SENIOR CARE CARE ON A CONTINUING BASIS FOR THE CONDITION(S) FOR WHICH HE/SHE WAS RECEIVING IN-PATIENT HOSPITAL SERVICES PRIOR TO HIS/HER TRANSFER TO THE [facility]. 10/20/24 1120<Electronically signed by Ángel Lam MD> Diet Diet Order/Speech Therapy: INPATIENT Hospital Diet / Speech Therapy Order(s) 10/18/24 17:02 Diet: Regular - General Food consistency:: Regular Liquid Consistency:: Regular/Thin Diet Comments: whole milk with meals Routine Orders/Code Status Routine Lab Work: CBC and BMP Code Status: DNRCC DC O2, CPAP, BIPAP needs Home O2 Discharge instructions: No Wound(s) left forearm: Wound Type: Skin Tear Dressing Change: Adaptic abdominal folds: Wound Type: excoriation forehead: Wound Type: Abrasion Therapies Physical Therapy: Eval and Treat Occupational Therapy: Eval and Treat Problem/Diagnosis (1) Diabetic hypoglycemia: Status: Acute Code(s): E11.649 - Type 2 diabetes mellitus with hypoglycemia without coma Plan 1. Altered mental status secondary to severe hypoglycemia and UTI with generalized weakness and falls ? This has resolved though she is still little bit confused ? Will make adjustments to her insulin on discharge ? Urine culture is pending we will continue with Rocephin ? Can discontinue the dextrose drip as her blood sugars have stabilized ? I think part of her hypoglycemia was just her lack of p.o. intake at the residential ? She did have falls at home the residential because of this hypoglycemia with some abrasions and ecchymosis, the wound care nurses been consulted ? PT/OT 2. Essential HTN ? Blood pressure is stable will resume her home Lasix ? Continue to monitor her blood pressures make adjustments as necessary ? She does have hydralazine every 6 hours as needed 3. DM2 ? Will hold all of her home diabetic medications ? When discharged there should be significant adjustments to her home blood sugar medications ? Continue with sliding scale insulin ? Accu-Cheks ACHS ? Will monitor make adjustments as necessary 4. Irritable bowel syndrome with chronic constipation complicated by chronic pain with chronic narcotic use ? Will hold her IBS medications ? Continue with her home MiraLAX ? Will monitor ? Can resume her home pain medications 5. History of Parkinson's disease and mild cognitive impairment ? She is not on any medications for this at this time DVT: Lovenox Allergies/Procedures Done in Hospital Allergies sulfamethoxazole (From Bactrim) Allergy (Verified 08/24/24 08:34) Rash trimethoprim (From Bactrim) Allergy (Verified 08/24/24 08:34) Rash carbidopa (From Sinemet) Adverse Reaction (Verified 08/24/24 08:34) Nausea hydrocodone bitartrate (From Vicodin) Adverse Reaction (Verified 08/24/24 08:34) Nausea ketoprofen (From Orudis) Adverse Reaction (Verified 08/24/24 08:34) Unknown levodopa (From Sinemet) Adverse Reaction (Verified 08/24/24 08:34) Nausea lorazepam (From Ativan) Adverse Reaction (Verified 08/24/24 08:34) hallucination metformin HCl (From Glucophage) Adverse Reaction (Verified 08/24/24 08:34) Nausea naloxone Adverse Reaction (Verified 08/24/24 08:34) Nausea NSAIDS (Non-Steroidal Anti-Inflamma Adverse Reaction (Verified 08/24/24 08:34) PT UNSURE OF REACTION oxaprozin (From Daypro) Adverse Reaction (Verified 08/24/24 08:34) Nausea oxycodone HCl (From Percocet) Adverse Reaction (Verified 08/24/24 08:34) Nausea propoxyphene HCl (From Darvon) Adverse Reaction (Verified 08/24/24 08:34) Nausea rofecoxib (From Vioxx) Adverse Reaction (Verified 04/21/25 08:34) Nausea rosiglitazone maleate (From Avandia) Adverse Reaction (Verified 08/24/24 08:34) Nausea sertraline HCl (From Zoloft) Adverse Reaction (Verified 08/24/24 08:34) haullucination simvastatin (From Zocor) Adverse Reaction (Verified 08/24/24 08:34) Nausea venlafaxine HCl (From Effexor) Adverse Reaction (Verified 08/24/24 08:34) Nausea Type of Care/Length of Stay Estimated LOS: More Than 30 Days Type of Care Needed: Intermediate Rehab Potential: Poor Prognosis: Poor Additional Orders/Day of Discharge Day of Discharge: 10/20/24 Dietary and Speech Recommendations Dietitian Recommendations/Changes: 1. Continue regular diet due to poor PO intake. 2. Recommend consistent carbohydrate diet as PO intake improves due to poor glycemic control. 3. Will discontinue glucerna with meals and replace with whole milk with meals per pt request. 4. Will monitor weight trends. Discharge Plan Admission Admit Date/Time: 10/18/24 21:38 Attending Provider: Ángel Lam Primary Care Provider: Donato Sepulveda Consulting Providers: Anali Coello Discharge Orders/Prescriptions Prescriptions: New cefdinir 300 mg capsule 300 mg PO BID 3 Days Qty: 6 0RF Continued acetaminophen 325 MG tablet 325 mg PO BID Linzess 290 mcg capsule 290 mcg PO DAILY potassium chloride 20 mEq tablet,ER particles/crystals 40 meq PO DAILY furosemide 20 mg tablet 20 mg PO DAILY Glucagon Emergency Kit (human) 1 mg recon soln 1 mg IM PRN alum-mag hydroxide-simeth [Advanced Antacid-Antigas] 400-400-40 mg/5 mL suspension 15 ml PO Q4H PRN (Reason: indigestion) Rx Instructions: do not exceed 12 doses in a 24 hour period polyethylene glycol 3350 [ClearLax] 17 gram/dose powder 17 g PO QODAY ondansetron 4 mg tablet,disintegrating 4 mg PO Q6H PRN (Reason: nausea and vomiting) acetaminophen 325 mg tablet 650 mg PO Q4H PRN (Reason: fever or pain) cholecalciferol (vitamin D3) [D3 DOTS] 50 mcg (2,000 unit) tablet 50 mcg PO DAILY GenTeal Tears Mild 0.1-0.3 % drops 1 drp EACH EYE BID lidocaine [Aspercreme (lidocaine)] 4 % adhesive patch,medicated 1 patch topical BID PRN (Reason: pain) duloxetine 30 mg capsule,delayed release(DR/EC) 30 mg PO DAILY oxycodone 5 mg tablet 5 mg PO BID 30 Days Qty: 60 0RF Changed insulin glargine [Lantus Solostar U-100 Insulin] 100 unit/mL (3 mL) insulin pen 10 unit SUBCUT DAILY 1 Days Qty: 0 0RF Held dapagliflozin propanediol [Farxiga] 10 mg tablet 10 mg PO DAILY Hold Instructions: Resume on 10/26/24. metformin 1,000 mg tablet 1,000 mg PO BID Hold Instructions: Resume on 10/26/24. Trulicity 4.5 mg/0.5 mL pen injector 4.5 mg subcut QWEEK Hold Instructions: Resume on 10/26/24. Patient Comments: PT TAKES ON WEDNESDAYS Referrals / Follow Up: Donato Sepulveda MD [Primary Care Provider] - Disposition Disposition (needs filled in before D/C Order can be placed): Group Home Facility 10/20/24 1120 <Electronically signed by Ángel Lam MD> Cosigner Signature (if applicable): CC: Dr. Donato Sepulveda MD; Dr. Anali Coello DO ~ [facility] Work Phone: [phone]) 187-759806-17-[address] [facility] Medical Records Department [address] [place] [id number] Counseling Note - Pharmacy 10/20/24 1148 MR#: [id number] Acct: [id number] Name: JUSTUS CHINCHILLA Rep #:[id number] : 1940 84 From: Perla Jaimes PCP: Dr. Donato Sepulveda MD Status:A DM IN Y Location: [facility] [id number] Pharmacy [place] Med Reconciliation Pharmacy Service has performed discharge medication reconciliation for this patient. The patient's discharge medication list was reviewed for discrepancies and discrepancies were resolved. Medications at Discharge Home Medications acetaminophen 325 mg tablet 325 mg PO BID CHRONIC PAIN 09/20/17 dapagliflozin propanediol 10 mg tablet (Farxiga) 10 mg PO DAILY 06/05/23 Held on 10/20/24. Instructions: Resume on 10/26/24. furosemide 20 mg tablet 20 mg PO DAILY 06/05/23 linaclotide 290 mcg capsule (Linzess) 290 mcg PO DAILY 06/05/23 potassium chloride 20 mEq tablet,extended release(part/cryst) 40 meq PO DAILY 06/05/23 glucagon 1 mg solution for injection (Glucagon Emergency Kit) 1 mg IM PRN 06/08/23 dulaglutide 4.5 mg/0.5 mL subcutaneous pen injector (Trulicity) 4.5 mg subcut QWEEK 08/24/24 Held on 10/20/24. Instructions: Resume on 10/26/24. oxycodone 5 mg tablet 5 mg PO BID pain 30 days #60 tabs 09/29/24 acetaminophen 325 mg tablet 650 mg PO Q4H PRN fever or pain 10/18/24 aluminum-mag hydroxide-simethicone 400 mg-400 mg-40 mg/5 mL oral susp (Advanced Antacid-Antigas) 15ml PO Q4H PRN indigestion 10/18/24 cholecalciferol (vitamin D3) 50 mcg (2,000 unit) tablet (D3 DOTS) 50 mcg PO DAILY 10/18/24 dextran 70-hypromellose 0.1 %-0.3 % eye drops (GenTeal Tears Mild) 1 drp EACH EYE BID 10/18/24 metformin 1,000 mg tablet 1,000 mg PO BID 10/18/24 Held on 10/20/24. Instructions: Resume on 10/26/24. ondansetron 4 mg disintegrating tablet 4 mg PO Q6H PRN nausea and vomiting 10/18/24 polyethylene glycol 3350 17 gram/dose oral powder (ClearLax) 17 g PO QODAY 10/18/24 duloxetine 30 mg capsule,delayed release 30 mg PO DAILY depression 10/19/24 lidocaine 4 % topical patch (Aspercreme (lidocaine)) 1 patch topical BID PRN pain 10/19/24 cefdinir 300 mg capsule 300 mg PO BID 3 days #6 caps 10/20/24 insulin glargine 100 unit/mL (3 mL) subcutaneous pen (Lantus Solostar U-100 Insulin) 10 unit (0.1 mL) subcut DAILY 1 day #0 mL 10/20/24 10/20/24 1148 Date _ Prela Gil Signature (if applicable): Date CC: ~ Signed [facility]06-17-2025 Discharge summary [facility] Medical Records Department [address] [place] [address] Transfer to [facility] MR#: [id number] Acct: [id number] Name: JUSTUS CHINCHILLA Rep #:[id number] : 1940 84 From: Ángel cuenca MD PCP: Dr. Donato Sepulveda MD Status:A DM IN Certification of patient admission REQUIRED AT TIME OF ADMISSION. I CERTIFY THAT POST-HOSPITAL ECF SERVICES ARE REQUIRED TO BE GIVEN ON AN IN-PATIENT BASIS BECAUSE OF THE ABOVE NAMED PATIENT'S NEED FOR SENIOR CARE CARE ON A CONTINUING BASIS FOR THE CONDITION(S) FOR WHICH HE/SHE WAS RECEIVING IN-PATIENT HOSPITAL SERVICES PRIOR TO HIS/HER TRANSFER TO THE [facility]. 10/20/24 1120 Diet Diet Order/Speech Therapy: INPATIENT Hospital Diet / Speech Therapy Order(s) 10/18/24 17:02 Diet: Regular - General Food consistency:: Regular Liquid Consistency:: Regular/Thin Diet Comments: whole milk with meals Routine Orders/Code Status Routine Lab Work: CBC and BMP Code Status: DNRCC DC O2, CPAP, BIPAP needs Home O2 Discharge instructions: No Wound(s) left forearm: Wound Type: Skin Tear Dressing Change: Adaptic abdominal folds: Wound Type: excoriation forehead: Wound Type: Abrasion Therapies Physical Therapy: Eval and Treat Occupational Therapy: Eval and Treat Problem/Diagnosis (1) Diabetic hypoglycemia: Status: Acute Code(s): E11.649 - Type 2 diabetes mellitus with hypoglycemia without coma Plan 1. Altered mental status secondary to severe hypoglycemia and UTI with generalized weakness and falls ? This has resolved though she is still little bit confused ? Will make adjustments to her insulin on discharge ? Urine culture is pending we will continue with Rocephin ? Can discontinue the dextrose drip as her blood sugars have stabilized ? I think part of her hypoglycemia was just her lack of p.o. intake at the residential ? She did have falls at home the residential because of this hypoglycemia with some abrasions and ecchymosis, the wound care nurses been consulted ? PT/OT 2. Essential HTN ? Blood pressure is stable will resume her home Lasix ? Continue to monitor her blood pressures make adjustments as necessary ? She does have hydralazine every 6 hours as needed 3. DM2 ? Will hold all of her home diabetic medications ? When discharged there should be significant adjustments to her home blood sugar medications ? Continue with sliding scale insulin ? Accu-Cheks ACHS ? Will monitor make adjustments as necessary 4. Irritable bowel syndrome with chronic constipation complicated by chronic pain with chronic narcotic use ? Will hold her IBS medications ? Continue with her home MiraLAX ? Will monitor ? Can resume her home pain medications 5. History of Parkinson's disease and mild cognitive impairment ? She is not on any medications for this at this time DVT: Lovenox Allergies/Procedures Done in Hospital Allergies sulfamethoxazole (From Bactrim) Allergy (Verified 08/24/24 08:34) Rash trimethoprim (From Bactrim) Allergy (Verified 08/24/24 08:34) Rash carbidopa (From Sinemet) Adverse Reaction (Verified 08/24/24 08:34) Nausea hydrocodone bitartrate (From Vicodin) Adverse Reaction (Verified 08/24/24 08:34) Nausea ketoprofen (From Orudis) Adverse Reaction (Verified 08/24/24 08:34) Unknown levodopa (From Sinemet) Adverse Reaction (Verified 08/24/24 08:34) Nausea lorazepam (From Ativan) Adverse Reaction (Verified 08/24/24 08:34) hallucination metformin HCl (From Glucophage) Adverse Reaction (Verified 08/24/24 08:34) Nausea naloxone Adverse Reaction (Verified 08/24/24 08:34) Nausea NSAIDS (Non-Steroidal Anti-Inflamma Adverse Reaction (Verified 08/24/24 08:34) PT UNSURE OF REACTION oxaprozin (From Daypro) Adverse Reaction (Verified 08/24/24 08:34) Nausea oxycodone HCl (From Percocet) Adverse Reaction (Verified 08/24/24 08:34) Nausea propoxyphene HCl (From Darvon) Adverse Reaction (Verified 08/24/24 08:34) Nausea rofecoxib (From Vioxx) Adverse Reaction (Verified 08/24/24 08:34) Nausea rosiglitazone maleate (From Avandia) Adverse Reaction (Verified 08/24/24 08:34) Nausea sertraline HCl (From Zoloft) Adverse Reaction (Verified 08/24/24 08:34) haullucination simvastatin (From Zocor) Adverse Reaction (Verified 08/24/24 08:34) Nausea venlafaxine HCl (From Effexor) Adverse Reaction (Verified 08/24/24 08:34) Nausea Type of Care/Length of Stay Estimated LOS: More Than 30 Days Type of Care Needed: Intermediate Rehab Potential: Poor Prognosis: Poor Additional Orders/Day of Discharge Day of Discharge: 10/20/24 Dietary and Speech Recommendations Dietitian Recommendations/Changes: 1. Continue regular diet due to poor PO intake. 2. Recommend consistent carbohydrate diet as PO intake improves due to poor glycemic control. 3. Will discontinue glucerna with meals and replace with whole milk with meals per pt request. 4. Will monitor weight trends. Discharge Plan Admission Admit Date/Time: 10/18/24 21:38 Attending Provider: Ángel Lam Primary Care Provider: Donato Sepulveda Consulting Providers: Anali Coello Discharge Orders/Prescriptions Prescriptions: New cefdinir 300 mg capsule 300 mg PO BID 3 Days Qty: 6 0RF Continued acetaminophen 325 MG tablet 325 mg PO BID Linzess 290 mcg capsule 290 mcg PO DAILY potassium chloride 20 mEq tablet,ER particles/crystals 40 meq PO DAILY furosemide 20 mg tablet 20 mg PO DAILY Glucagon Emergency Kit (human) 1 mg recon soln 1 mg IM PRN alum-mag hydroxide-simeth [Advanced Antacid-Antigas] 400-400-40 mg/5 mL suspension 15 ml PO Q4H PRN (Reason: indigestion) Rx Instructions: do not exceed 12 doses in a 24 hour period polyethylene glycol 3350 [ClearLax] 17 gram/dose powder 17 g PO QODAY ondansetron 4 mg tablet,disintegrating 4 mg PO Q6H PRN (Reason: nausea and vomiting) acetaminophen 325 mg tablet 650 mg PO Q4H PRN (Reason: fever or pain) cholecalciferol (vitamin D3) [D3 DOTS] 50 mcg (2,000 unit) tablet 50 mcg PO DAILY GenTeal Tears Mild 0.1-0.3 % drops 1 drp EACH EYE BID lidocaine [Aspercreme (lidocaine)] 4 % adhesive patch,medicated 1 patch topical BID PRN (Reason: pain) duloxetine 30 mg capsule,delayed release(DR/EC) 30 mg PO DAILY oxycodone 5 mg tablet 5 mg PO BID 30 Days Qty: 60 0RF Changed insulin glargine [Lantus Solostar U-100 Insulin] 100 unit/mL (3 mL) insulin pen 10 unit SUBCUT DAILY 1 Days Qty: 0 0RF Held dapagliflozin propanediol [Farxiga] 10 mg tablet 10 mg PO DAILY Hold Instructions: Resume on 10/26/24. metformin 1,000 mg tablet 1,000 mg PO BID Hold Instructions: Resume on 10/26/24. Trulicity 4.5 mg/0.5 mL pen injector 4.5 mg subcut QWEEK Hold Instructions: Resume on 10/26/24. Patient Comments: PT TAKES ON WEDNESDAYS Referrals / Follow Up: Donato Sepulveda MD [Primary Care Provider] - Disposition Disposition (needs filled in before D/C Order can be placed): Group Home Facility 10/20/24 1120 Cosigner Signature (if applicable): CC: Dr. Donato Sepulveda MD; Dr. Anali Coello, DO ~ [facility]06-16-2025 Progress note Author Ángel Lam [facility] Note Date/Time October 19, 2024 7:[address] [facility] Medical Records Department [address] [place] [address] Progress Note - Hospitalist 10/19/24 1852 MR#: [id number] Acct: [id number] Name: JUSTUS CHINCHILLA Rep #:[id number] : 1940 84 From: Ángel cuenca MD PCP: Dr. Donato Sepulveda MD Status:A DM IN [facility] Subjective Subjective She says that she does not feel great and would prefer to go back to the [facility] tomorrow Objective Data Objective Data Vital Signs: Vital Signs Temp Pulse Resp BP Pulse Ox O2 Del Method 98.3 F 76 16 119/64 97 Room Air 10/19/24 14:31 10/19/24 16:36 10/19/24 16:36 10/19/24 16:36 10/19/24 16:36 10/19/24 16:36 Oxygen Delivery Method Room Air Weight: 117 lb 11.629 oz Body Mass Index (BMI) 20.2 Intake & Output: Intake and Output for Last 24 Hours 10/18/24 10/19/24 10/20/24 03:59 03:59 03:59 Intake Total 1285.9200 / 1285.9200 1220.9550 / 1220.9550 Balance 1285.9200 / 1285.9200 1220.9550 / 1220.9550 Lab / Micro Data 10/19/24 05:35 10/19/24 05:35 Labs: Laboratory Results - last 24 hr 10/18/24 16:30: Sodium 143, Potassium 3.2 L, Chloride 102, Carbon Dioxide 24.5, Anion Gap 17 H, BUN 11, Creatinine 0.64 L, Estim Creat Clear Calc 42.88 L, Est GFR (MDRD) Non-Af 88, BUN/Creatinine Ratio 17.1, Glucose 16 L*, Calcium 10.0, Total Bilirubin 0.33, AST 34 H, ALT 13, Alkaline Phosphatase 60, Total Protein 8.0, Albumin 4.7, Globulin 3.3, Albumin/Globulin Ratio 1.4 10/18/24 18:57: POC Glucose 98 10/18/24 19:41: Urine Color Yellow, Urine Clarity Clear, Urine pH 6.5, Ur Specific Reddell 1.015, Urine Protein 30 H, Urine Glucose (UA) 1000 H, Urine Ketones Negative, Urine Occult Blood 25 H, Urine Nitrite Positive H, Urine Bilirubin Negative, Urine Urobilinogen Normal, Ur Leukocyte Esterase 25 H, UrineRBC 0 SEEN, Urine WBC 10- 25 SEEN, Ur Squamous Epith Cells 0-5 SEEN, Urine Bacteria 4+, Urine Mucus 0 SEEN 10/18/24 20:07: POC Glucose 119 H 10/18/24 20:34: PT 13.4, INR 1.0, Lactic Acid 2.8 H* 10/18/24 21:26: POC Glucose 129 H 10/18/24 23:23: POC Glucose 135 H 10/19/24 01:19: POC Glucose 170 H 10/19/24 01:26: Lactic Acid 1.4 10/19/24 03:17: POC Glucose 177 H 10/19/24 05:16: POC Glucose 132 H 10/19/24 05:35: WBC 6.9, RBC 4.18 L, Hgb 12.4, Hct 38.0, MCV 90.9, MCH 29.7, MCHC 32.6, RDW Std Deviation 42.5, RDW Coeff of Sena 12.9, Plt Count 181, MPV 9.4, Immature Gran % (Auto) 0.300, Neut % (Auto) 70.0, Lymph % (Auto) 21.5, Hickman% (Auto) 7.3, Eos % (Auto) 0.6, Baso % (Auto) 0.3, Absolute Neuts (auto) 4.8, Absolute Lymphs (auto) 1.48, Nucleated RBC % 0, Sodium 136, Potassium 4.6, Chloride 103, Carbon Dioxide 23.7, Anion Gap 10, BUN 6, Creatinine 0.55 L, EstimCreat Clear Calc 45.71 L, Est GFR (MDRD) Non-Af 92, BUN/Creatinine Ratio 11.3, Glucose 132 H, Calcium 8.7, Phosphorus 2.8, Magnesium 1.7, Total Bilirubin 0.42, AST 24, ALT 9, Alkaline Phosphatase 44, Total Protein 6.0, Albumin 3.6, Globulin2.4, Albumin/Globulin Ratio 1.5, TSH 1.130 10/19/24 07:16: POC Glucose 112 H 10/19/24 11:00: POC Glucose 220 H 10/19/24 16:34: POC Glucose 291 H Micro: Microbiology 10/18/24 19:41 Urine, Catheterized Urine Culture - 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 Mild anterior frontal scalp swelling. No acute calvarial defect. Reading Location: [facility] Physical Exam Narrative General: Alert, Oriented x3, Cooperative, No apparent distress, severely kyphotic HEENT: Atraumatic, PERRLA, EOMI, Normocephalic Oral: Moist Mucosa Neck: Supple, No JVD Lungs: Diminished, Normal air movement, No rhonchi, No wheeze, No rales Cardiovascular: Regular rate, Regular Rhythm, Normal S1, Normal S2, No murmurs Abdomen: Soft, Non Tender, Non-Distended, No Hepato-splenomegaly Extremities: Edema, Capillary Refill Less than 3 Seconds Skin: No rashes, No breakdown Musculoskeletal: No Tenderness to Palpation of Joints or Extremities Neurological: No focal neurological deficits, Motor Exam 5/5 strength throughout, Sensory exam intact to light touch and pain Psych/Mental Status: Normal Affect, Appropriate Assessment & Plan Assessment/Plan (1) Diabetic hypoglycemia: PLAN: Plan 1. Altered mental status secondary to severe hypoglycemia and UTI with generalized weakness and falls ? This has resolved though she is still little bit confused ? Will make adjustments to her insulin on discharge ? Urine culture is pending we will continue with Rocephin ? Can discontinue the dextrose drip as her blood sugars have stabilized ? I think part of her hypoglycemia was just her lack of p.o. intake at the residential ? She did have falls at home the residential because of this hypoglycemia with some abrasions and ecchymosis, the wound care nurses been consulted ? PT/OT 2. Essential HTN ? Blood pressure is stable will resume her home Lasix ? Continue to monitor her blood pressures make adjustments as necessary ? She does have hydralazine every 6 hours as needed 3. DM2 ? Will hold all of her home diabetic medications ? When discharged there should be significant adjustments to her home blood sugar medications ? Continue with sliding scale insulin ? Accu-Cheks ACHS ? Will monitor make adjustments as necessary 4. Irritable bowel syndrome with chronic constipation complicated by chronic pain with chronic narcotic use ? Will hold her IBS medications ? Continue with her home MiraLAX ? Will monitor ? Can resume her home pain medications 5. History of Parkinson's disease and mild cognitive impairment ? She is not on any medications for this at this time DVT: Lovenox Charges/Coding Visit Charges Inpatient E&M: 11962 Subs Hosp L2 10/19/24 1902 <Electronically signed by Ángel Lam MD> Cosigner Signature (if applicable): CC: ~ Signed [facility] Work Phone: [phone] 239-391406-16-2025 Progress note [facility] Medical Records Department [address] [place] [address] Progress Note - Hospitalist 10/19/24 1852 MR#: [id number] Acct: [id number] Name: JUSTUS CHINCHILLA Rep #:[id number] : 1940 84 From: Ángel cuenca MD PCP: Dr. Donato Sepulveda MD Status:A DM IN Location: [place] [id number] Subjective Subjective She says that she does not feel great and would prefer to go back to [facility] tomorrow Objective Data Objective Data Vital Signs: Vital Signs Temp Pulse Resp BP Pulse Ox O2 Del Method 98.3 F 76 16 119/64 97 Room Air 10/19/24 14:31 10/19/24 16:36 10/19/24 16:36 10/19/24 16:36 10/19/24 16:36 10/19/24 16:36 Oxygen Delivery Method Room Air Weight: 117 lb 11.629 oz Body Mass Index (BMI) 20.2 Intake & Output: Intake and Output for Last 24 Hours 10/18/24 10/19/24 10/20/24 03:59 03:59 03:59 Intake Total 1285.9200 / 1285.9200 1220.9550 / 1220.9550 Balance 1285.9200 / 1285.9200 1220.9550 / 1220.9550 Lab / Micro Data 10/19/24 05:35 10/19/24 05:35 Labs: Laboratory Results - last 24 hr 10/18/24 16:30: Sodium 143, Potassium 3.2 L, Chloride 102, Carbon Dioxide 24.5, Anion Gap 17 H, BUN11, Creatinine 0.64 L, Estim Creat Clear Calc 42.88 L, Est GFR (MDRD) Non-Af 88, BUN/Creatinine Ratio 17.1, Glucose 16 L*, Calcium 10.0, Total Bilirubin 0.33, AST 34 H, ALT 13, Alkaline Phosphatase 60, Total Protein 8.0, Albumin 4.7, Globulin 3.3, Albumin/Globulin Ratio 1.4 10/18/24 18:57: POC Glucose 98 10/18/24 19:41: Urine Color Yellow, Urine Clarity Clear, Urine pH 6.5, Ur Specific Reddell 1.015, Urine Protein 30 H, Urine Glucose (UA) 1000 H, Urine Ketones Negative, Urine Occult Blood 25 H, UrineNitrite Positive H, Urine Bilirubin Negative, Urine Urobilinogen Normal, Ur Leukocyte Esterase 25 H, UrineRBC 0 SEEN, Urine WBC 10-25 SEEN, Ur Squamous Epith Cells 0-5 SEEN, Urine Bacteria 4+, Urine Mucus 0 SEEN 10/18/24 20:07: POC Glucose 119 H 10/18/24 20:34: PT 13.4, INR 1.0, Lactic Acid 2.8 H* 10/18/24 21:26: POC Glucose 129 H 10/18/24 23:23: POC Glucose 135 H 10/19/24 01:19: POC Glucose 170 H 10/19/24 01:26: Lactic Acid 1.4 10/19/24 03:17: POC Glucose 177 H 10/19/24 05:16: POC Glucose 132 H 10/19/24 05:35: WBC 6.9, RBC 4.18 L, Hgb 12.4, Hct 38.0, MCV 90.9, MCH 29.7, MCHC 32.6, RDW Std Deviation 42.5, RDW Coeff of Sena 12.9, Plt Count 181, MPV 9.4, Immature Gran % (Auto) 0.300, Neut % (Auto) 70.0, Lymph % (Auto) 21.5, Hickman% (Auto) 7.3, Eos % (Auto) 0.6, Baso % (Auto) 0.3, Absolute Neuts(auto) 4.8, Absolute Lymphs (auto) 1.48, Nucleated RBC % 0, Sodium 136, Potassium 4.6, Chloride 103, Carbon Dioxide 23.7, Anion Gap 10, BUN 6, Creatinine 0.55 L, EstimCreat Clear Calc 45.71 L, Est GFR (MDRD) Non-Af 92, BUN/Creatinine Ratio 11.3, Glucose 132 H, Calcium 8.7, Phosphorus 2.8, Magnesium1.7, Total Bilirubin 0.42, AST 24, ALT 9, Alkaline Phosphatase 44, Total Protein 6.0, Albumin 3.6, G lobulin2.4, Albumin/Globulin Ratio 1.5, TSH 1.130 10/19/24 07:16: POC Glucose 112 H 10/19/24 11:00: POC Glucose 220 H 10/19/24 16:34: POC Glucose 291 H Micro: Microbiology 10/18/24 19:41 Urine, Catheterized Urine Culture - 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 Mild anterior frontal scalp swelling. No acute calvarial defect. Reading Location: [facility] Physical Exam Narrative General: Alert, Oriented x3, Cooperative, No apparent distress, severely kyphotic HEENT: Atraumatic, PERRLA, EOMI, Normocephalic Oral: Moist Mucosa Neck: Supple, No JVD Lungs: Diminished, Normal air movement, No rhonchi, No wheeze, No rales Cardiovascular: Regular rate, Regular Rhythm, Normal S1, Normal S2, No murmurs Abdomen: Soft, Non Tender, Non-Distended, No Hepato-splenomegaly Extremities: Edema, Capillary Refill Less than 3 Seconds Skin: No rashes, No breakdown Musculoskeletal: No Tenderness to Palpation of Joints or Extremities Neurological: No focal neurological deficits, Motor Exam 5/5 strength throughout, Sensory exam intact to light touch and pain Psych/Mental Status: Normal Affect, Appropriate Assessment & Plan Assessment/Plan (1) Diabetic hypoglycemia: PLAN: Plan 1. Altered mental status secondary to severe hypoglycemia and UTI with generalized weakness and falls ? This has resolved though she is still little bit confused ? Will make adjustments to her insulin on discharge ? Urine culture is pending we will continue with Rocephin ? Can discontinue the dextrose drip as her blood sugars have stabilized ? I think part of her hypoglycemia was just her lack of p.o. intake at the residential ? She did have falls at home the residential because of this hypoglycemia with some abrasions and ecchymosis, the wound care nurses been consulted ? PT/OT 2. Essential HTN ? Blood pressure is stable will resume her home Lasix ? Continue to monitor her blood pressures make adjustments as necessary ? She does have hydralazine every 6 hours as needed 3. DM2 ? Will hold all of her home diabetic medications ? When discharged there should be significant adjustments to her home blood sugar medications ? Continue with sliding scale insulin ? Accu-Cheks ACHS ? Will monitor make adjustments as necessary 4. Irritable bowel syndrome with chronic constipation complicated by chronic pain with chronic narcotic use ? Will hold her IBS medications ? Continue with her home MiraLAX ? Will monitor ? Can resume her home pain medications 5. History of Parkinson's disease and mild cognitive impairment ? She is not on any medications for this at this time DVT: Lovenox Charges/Coding Visit Charges Inpatient E&M: 66478 Subs Hosp L2 10/19/24 190 Cosigner Signature (if applicable): CC: ~ Signed [facility]06-16-2025 Discharge summary Author Zoltan Garcia [facility] Note Date/Time October 19, 2024 12:[address] [facility] Medical Records Department [address] [place] [address] Emergency Department Summary 10/18/24 MR#: [id number] Acct: [id number] Name: JUSTUS CHINCHILLA Rep #:[id number] : 1940 84 From: Zoltan Gomez PCP: Dr. Donato Sepulveda MD Status:A DM IN Location: [place] [address] HPI HPI - Fall History of Present Illness Chief Complaint: Fall Informant: patient, EMS and SNF Narrative Narrative: 84-year-old female presenting to the emergency room with head trauma and alteredmental status. Reportedly had an unwitnessed fall and was found on the ground. There was a forehead hematoma and possible laceration as well as skin tear on the left arm. She was noted to be confused. EMS was called. They noted confusion of blood sugar of 32 and diaphoresis. Upon arrival in the emergency department after EMS treatment the patient is more alert. She is talkative. She has facial confusion but has appropriate thinking on direct questioning. Patient is a DNR comfort care/palliative care. She does have a history of diabetes. She does not know if she ate today. Patient takes oral hypoglycemicsas well as insulin. [facility] Medical History (Updated 10/18/24 @ 21:[address] Anali Coello, DO) Parkinson disease Pain in both knees Vision problems Skin cancer GERD (gastroesophageal reflux disease) Osteopenia Osteoarthritis Neuropathy Heart murmur Liver disease Recurrent infections Hives High cholesterol HTN (hypertension) Chronic headaches Gallstones Type 2 diabetes mellitus Cataracts, bilateral Bladder cancer Recurrent UTI Back problem Asthma Arthritis Anxiety and depression Home Medications ?Medication ?Instructions ?Recorded ?Last Taken ?Type acetaminophen 325 mg tablet 325 mg PO BID CHRONIC PAIN 09/20/17 08/24/24 History dapagliflozin propanediol 10 mg 10 mg PO DAILY 08/24/24 History tablet (Farxiga) furosemide 20 mg tablet 20 mg PO DAILY 06/05/2308/05 History linaclotide 290 mcg capsule 290 mcg PO DAILY 06/05/23 08/24/24 History (Linzess) potassium chloride 20 mEq 40 meq PO DAILY 06/05/23 History tablet,extended release(part/cryst) glucagon 1 mg solution for 1 mg IM PRN 06/08/23 Unknow n History injection (Glucagon Emergency Kit) insulin glargine 100 unit/mL (3 43 unit subcut DAILY 0 06/08/23 08/24/24 History mL) subcutaneous pen (Lantus Solostar U-100 Insulin) dulaglutide 4.5 mg/0.5 mL 4.5 mg subcut QWEEK 08/24/24 08/19/24 History subcutaneous pen injector (Trulicity) oxycodone 5 mg tablet 5 mg PO BID pain 30 days #60 tabs 09/29/24 Unknown Rx acetaminophen 325 mg tablet 650 mg PO Q4H PRN fever or pain 10/18/24 Unknown History aluminum-mag hydroxide-simethicone 15 ml PO Q4H PRN in digestion 10/18/24 Unknown History 400 mg-400 mg-40 mg/5 mL oral susp (Advanced Antacid-Antigas) cholecalciferol (vitamin D3) 50 50 mcg PO DAILY Unknown History mcg (2,000 unit) tablet (D3 DOTS) dextran 70-hypromellose 0.1 %-0.3 1 drp EACH EYE BID 0 10/18/24 Unknown History % eye drops (GenTeal Tears Mild) metformin 1,000 mg tablet 1,000 mg PO BID 10/18/24 Unk nown History ondansetron 4 mg disintegrating 4 mg PO Q6H PRN nausea and vomiting 10/18/24 Unknown History tablet polyethylene glycol 3350 17 17 g PO QODAY 10/18/24 Unk nown History gram/dose oral powder (ClearLax) Allergy/AdvReac Type Severity Reaction Status Date / Time sulfamethoxazole (From Allergy Rash Verified 08/24/24 08:34 Bactrim) trimethoprim (From Bactrim) Allergy Rash Verified 08/24/24 08:34 carbidopa (From Sinemet) AdvReac Nausea Verified 08/24/24 08:34 hydrocodone bitartrate (From AdvReac Nausea Verified 08/24/24 08:34 Vicodin) ketoprofen (From Orudis) AdvReac Unknown Verified 08/24/24 08:34 levodopa (From Sinemet) AdvReac Nausea Verified 08/24/24 08:34 lorazepam (From Ativan) AdvReac hallucinati Verified 08/24/24 08:34 on metformin HCl (From AdvReac Nausea Verified 08/24/24 08:34 Glucophage) naloxone AdvReac Nausea Verified 08/24/24 08:34 NSAIDS (Non-Steroidal AdvReac PT UNSURE Verified 08/24/24 08:34 Anti-Inflamma OF REACTION oxaprozin (From Daypro) AdvReac Nausea Verified 08/24/24 08:34 oxycodone HCl (From Percocet) AdvReac Nausea Verified 08/24/24 08:34 propoxyphene HCl (From AdvReac Nausea Verified 08/24/24 08:34 Darvon) rofecoxib (From Vioxx) AdvReac Nausea Verified 08/24/24 08:34 rosiglitazone maleate (From AdvReac Nausea Verified 08/24/24 08:34 Avandia) sertraline HCl (From Zoloft) AdvReac haullucinat Verified 08/24/24 08:34 ion simvastatin (From Zocor) AdvReac Nausea Verified 08/24/24 08:34 venlafaxine HCl (From AdvReac Nausea Verified 08/24/24 08:34 Effexor) Family History Unknown Asthma Arthritis Cancer Diabetes Heart disease Hypertension High cholesterol Kidney stones Liver disease Osteoporosis Skin cancer CVA (cerebral vascular accident) Surgical History (Updated 10/18/24 @ 21:[address] Anali Coello DO) Total knee replacement status Social History Smoking Status: Never smoker second hand exposure: No alcohol intake: never substance use type: does not use ROS ROS ED Constitutional Constitutional ED: Denies chills, fever(s) or weight loss Eyes Eyes: Denies change in vision or diplopia ENT ENT ED: Denies ear pain, rhinorrhea or sore throat Cardiovascular Cardiovascular: Denies chest pain, orthopnea, palpitations or racing heartbeat Respiratory/Chest Respiratory/Chest: Denies cough, dyspnea or orthopnea Gastrointestinal Gastrointestinal: Denies abdominal pain, diarrhea, nausea or vomiting Genitourinary Genitourinary ED: Denies dysuria, hematuria or urinary frequency Musculoskeletal Musculoskeletal: Denies arthralgias or myalgias Integumentary Reports other Details: Forehead hematoma/abrasion/left forearm skin tear ; Denies abscess or rash Neurologic Neurologic: Reports headache(s); Denies weakness Psychiatric Psychiatric: Denies anxiety, depression, suicidal ideation or suicidal thoughts Endocrine Endocrinology: Denies polydipsia, polyphagia or polyuria Allergic/Immunologic Allergic/Immunologic ED: Denies mouth swelling, tongue swelling or urticaria EXAM Physical Exam Const Vital Signs: 10/18/24 16:46 10/18/24 16:51 10/18/24 16:54 Temperature 97.9 F Temperature Source Temporal Pulse Rate 91 Respiratory Rate 13 Respiratory Effort Normal Non-Labored Normal Non-Labored Respiratory Depth Normal Respiratory Pattern Normal Normal Blood Pressure 162/92 H Blood Pressure Mean 115 Pulse Ox 100 Oxygen Delivery Method Room Air Room Air 10/18/24 17:46 10/18/24 18:00 10/18/24 19:00 Temperature Temperature Source Pulse Rate 71 74 71 Respiratory Rate 14 16 18 Respiratory Effort Respiratory Depth Respiratory Pattern Blood Pressure 202/122 H 172/72 H 164/76 H Blood Pressure Mean 148 105 105 Pulse Ox 97 99 98 Oxygen Delivery Method Room Air 10/18/24 20:00 10/18/24 20:50 10/18/24 20:51 Temperature 97.4 F L 97.6 F L Temperature Source Temporal Pulse Rate 80 80 Respiratory Rate 16 18 16 Respiratory Effort Respiratory Depth Respiratory Pattern Blood Pressure 156/63 H 174/81 H 174/81 H Blood Pressure Mean 94 112 112 Pulse Ox 97 93 93 Oxygen Delivery Method Room Air Positive well nourished and well developed General Appearance ED: well developed HEENT Reports normocephalic and moist mucous membranes HEENT Narrative: There is a mid forehead hematoma just at the hairline. There is an associated abrasion no complete laceration. There is no active bleeding. The area around the hematoma is concussed. Eyes PERRL and EOMs intact bilaterally Neck full ROM, no lymphadenopathy, supple and no JVD General: Negative for tenderness Resp normal respiratory effort and clear to auscultation bilaterally Cardio regular rate, regular rhythm and no murmurs GI normal to inspection, nondistended, normoactive bowel sounds and non-tender Palpation: soft Back/Spine no CVA tenderness and normal ROM Extremity normal to inspection General Extremety ED: Negative for edema General Extremity: Negative for edema Neuro moves all extremities, no focal motor deficits and no sensory deficits noted Michaela Coma Scale: document GCS findings Spontaneous Obeys Commands Oriented 15 Sensorium / Orientation: alert, oriented to person and oriented to place; Negative for oriented to time Motor Exam: strength 5/5 throughout Psych mental status grossly normal Mood & Affect: Negative for depressed or tearful Skin no rashes or lesions noted Skin Narrative: There is a 3 cm skin tear to the dorsal left forearm. MDM MDM MDM Narrative Medical decision making narrative: Differential diagnosis includes but not limited to diabetic hypoglycemia intracranial hemorrhage concussion skull fracture laceration abrasion skin tear The forehead hematoma and abrasion was washed with Shur-Clens and explored. I placed Dermabond on the wound to keep the tissue in place and do not feel that any sutures. The skin tear of the left forearm had the skin smoothed out and washed. Was closed using Dermabond as well. CT of the brain was obtained. Patient was able to take some drinks and we ordered food. Patient really unwilling to eat or drink to keep her blood sugar up. After EMSs glucose in the apartment was at 82 and the next reading was 72 and she was not eating therefore she was started on D10 half-normal saline. Blood sugars have been rising. Basic blood work showed a white count of 20 hemoglobin of 15.5 count of 326. BMP with a glucose of 16 (these are labs drawn by EMS) normal LFTs except for anAST of 34 creatinine 0.64. I believe that the white count is most likely reactive due to the hypoglycemia. We were able to finally obtain a urine specimen which demonstrates 10-25 white blood cells positive nitrates 4+ bacteria. This was sent for culture and she received a dose of Rocephin. Lactic acid was elevated 2.8. I do not believe that she needs volume resuscitated. She is also on metformin I think the elevated lactic acid is multifactorial and not really due to overwhelming sepsis. Spoke with her hospitalist and her plan is admission into the hospital. History & Record Review Discussion w/independent historian: EMS personnel, Patient and Other (SNF) Additional record(s) reviewed:: Prior inpatient record, Prior ED visit and Priorlabs Lab Data Attestation: I reviewed the patient's lab results. Labs: Laboratory Results - last 24 hr 10/18/24 10/18/24 10/18/24 16:30 17:05 17:39 WBC 20.0 H RBC 5.28 Hgb 15.5 H Hct 48.0 H MCV 90.9 MCH 29.4 MCHC 32.3 RDW Std Deviation 43.0 RDW Coeff of Sena 12.9 Plt Count 326 MPV 10.2 Immature Gran % (Auto) 0.700 Neut % (Auto) 89.4 H Lymph % (Auto) 4.7 L Hickman % (Auto) 4.8 Eos % (Auto) 0.1 Baso % (Auto) 0.3 Absolute Neuts (auto) 17.9 H Absolute Lymphs (auto) 0.94 Nucleated RBC % 0 PT INR Sodium 143 Potassium 3.2 L Chloride 102 Carbon Dioxide 24.5 Anion Gap 17 H BUN 11 Creatinine 0.64 L Estim Creat Clear Calc 42.88 L Est GFR (MDRD) Non-Af 88 BUN/Creatinine Ratio 17.1 Glucose 16 L* Lactic Acid Calcium 10.0 Total Bilirubin 0.33 AST 34 H ALT 13 Alkaline Phosphatase 60 Total Protein 8.0 Albumin 4.7 Globulin 3.3 Albumin/Globulin Ratio 1.4 Urine Color Urine Clarity Urine pH Ur Specific Reddell Urine Protein Urine Glucose (UA) Urine Ketones Urine Occult Blood Urine Nitrite Urine Bilirubin Urine Urobilinogen Ur Leukocyte Esterase Urine RBC Urine WBC Ur Squamous Epith Cells Urine Bacteria Urine Mucus POC Glucose 82 72 L 0610/18/24 10/18/24 18:57 19:41 20:07 WBC RBC Hgb Hct MCV MCH MCHC RDW Std Deviation RDW Coeff of Sena Plt Count MPV Immature Gran % (Auto) Neut % (Auto) Lymph % (Auto) Hickman % (Auto) Eos % (Auto) Baso % (Auto) Absolute Neuts (auto) Absolute Lymphs (auto) Nucleated RBC % PT INR Sodium Potassium Chloride Carbon Dioxide Anion Gap BUN Creatinine Estim Creat Clear Calc Est GFR (MDRD) Non-Af BUN/Creatinine Ratio Glucose Lactic Acid Calcium Total Bilirubin AST ALT Alkaline Phosphatase Total Protein Albumin Globulin Albumin/Globulin Ratio Urine Color Yellow Urine Clarity Clear Urine pH 6.5 Ur Specific Reddell 1.015 Urine Protein 30 H Urine Glucose (UA) 1000 H Urine Ketones Negative Urine Occult Blood 25 H Urine Nitrite Positive H Urine Bilirubin Negative Urine Urobilinogen Normal Ur Leukocyte Esterase 25 H Urine RBC 0 SEEN Urine WBC 10-25 SEEN Ur Squamous Epith Cells 0-5 SEEN Urine Bacteria 4+ Urine Mucus 0 SEEN POC Glucose 98 119 H 10/18/24 10/18/24 20:34 21:26 WBC RBC Hgb Hct MCV MCH MCHC RDW Std Deviation RDW Coeff of Sena Plt Count MPV Immature Gran % (Auto) Neut % (Auto) Lymph % (Auto) Hickman % (Auto) Eos % (Auto) Baso % (Auto) Absolute Neuts (auto) Absolute Lymphs (auto) Nucleated RBC % PT 13.4 INR 1.0 Sodium Potassium Chloride Carbon Dioxide Anion Gap BUN Creatinine Estim Creat Clear Calc Est GFR (MDRD) Non-Af BUN/Creatinine Ratio Glucose Lactic Acid 2.8 H* Calcium Total Bilirubin AST ALT Alkaline Phosphatase Total Protein Albumin Globulin Albumin/Globulin Ratio Urine Color Urine Clarity Urine pH Ur Specific Reddell Urine Protein Urine Glucose (UA) Urine Ketones Urine Occult Blood Urine Nitrite Urine Bilirubin Urine Urobilinogen Ur Leukocyte Esterase Urine RBC Urine WBC Ur Squamous Epith Cells Urine Bacteria Urine Mucus POC Glucose 129 H Radiography Diagnostic Testing: Clinical Impression(s) from Imaging Studies Brain CT 10/18/24 17:01 IMPRESSION: No acute intracranial process. Mild anterior frontal scalp swelling. No acute calvarial defect. Reading Location: [id number] Management Discussion w/another healthcare provider: Hospitalist (Dr. Coello) Discharge Plan Dx/Rx/DC Orders Clinical Impression: Traumatic hematoma of forehead, Abrasion of forehead, Fall, Diabetic hypoglycemia, Skin tear of forearm without complication, Acute UTI Disposition Disposition: Acute Care Hospital [facility] Discharge Date/Time: 10/18/24 22:04 What to do if you have Problems For any increased pain, shortness of breath, bleeding, nausea or vomiting, chestpain, or any unexpected problems, contact your Primary Care Provider. Call [facility] ([phone]) or report to the closest Emergency Room. Call 911 if necessary. 10/19/24 0013 <Electronically signed by Zoltan Garcia DO> Cosigner Signature (if applicable): CC: Dr. Donato Sepulveda MD ~ Signed [facility] Work Phone: [phone] History and physical note Author Anali Coello [facility] Note Date/Time October 18, 2024 10:[address] [facility] Medical Records Department [address] [place] [id number] H&P Exam - Hospitalist 10/18/242107 MR#: [id number] Acct: [id number] Name: JUSTUS CHINCHILLA Rep #:[id number] : 1940 84 From: Anali Coello DO PCP: Dr. Donato Sepulveda MD Status:A DM IN Location: [place] [id number] HPI - General General Date of Admission: 10/18/24 Date of Service: 10/18/24 Chief Complaint: Fall/altered mental status HPI Narrative JUSTUS CHINCHILLA, is a 84 F who presented to the emergency department at [facility] on 10/18/2024 with chief complaint of head trauma after a falland altered mental status. Patient had an unwitnessed fall was found on the ground. She had a forehead hematoma with a small laceration as well as a skin tear on her left arm. She was noted to be markedly confused so the EMS was called. Blood sugar was assessed on arrival and was 32 patient was diaphoretic at that time as well. She was treated by the squad and after arrival to the emergency department she was more alert but still somewhat confused. By the time we were able to evaluate her she was very talkative and back to normal as she had been treated with dextrose via IV. She has baseline confusion per family and seems to be at her baseline at the time of my admission. She does have a history of diabetes and takes quite a bit of medication. Family reports that her oral intake is poor at the nursing facility. Patient states the food is "terrible." Patient unable to remember when the last time she ate today was. Vital signs on presentation showed temperature 97.9, heart rate 91, respiratory 13, blood pressure was 162/92 and pulse ox was 100% room air. CBC did show significant leukocytosis with a white count of 20,000. She does seem to be hemoconcentrated as her hemoglobin was also are elevated compared to her baseline from just about a week ago at 15.5 with her hemoglobin a week ago being11.9. She does have a left shift with an 89.4% neutrophilia. Coags are normal. Chemistry panel shows mild hypokalemia with potassium of 3.2. Slight anion gapat 17 with a normal CO2. Renal function is normal. Glucose on BMP was 16. Lactic acid was 2.8. Liver functions are unremarkable. Urine is suggestive of infection and some dehydration with nitrite, leuk esterase, white cells, and 4+ bacteria. CT of the brain shows no acute infarct, cranial hemorrhage or mass effect. There are no signs of normal pressure hydrocephalus and mild to moderate chronic microvascular changes without area of mild anterior frontal scalp swelling. In the emergency department she was put on a D10 drip with improvement of her blood sugars. As her blood sugar improved her mentation improved as well. By the time of admission family thought that she was close to her baseline mentation. [facility] Medical History (Updated 10/18/24 @ 21:[address] Anali Coello, ) Parkinson disease Pain in both knees Vision problems Skin cancer GERD (gastroesophageal reflux disease) Osteopenia Osteoarthritis Neuropathy Heart murmur Liver disease Recurrent infections Hives High cholesterol HTN (hypertension) Chronic headaches Gallstones Type 2 diabetes mellitus Cataracts, bilateral Bladder cancer Recurrent UTI Back problem Asthma Arthritis Anxiety and depression Home Medications ?Medication ?Instructions ?Recorded ?Last Taken ?Type acetaminophen 325 mg tablet 325 mg PO BID CHRONIC PAIN 09/20/17 08/24/24 History dapagliflozin propanediol 10 mg 10 mg PO DAILY 4 08/24/24 History tablet (Farxiga) furosemide 20 mg tablet 20 mg PO DAILY 06/05/2308/05 History linaclotide 290 mcg capsule 290 mcg PO DAILY 06/05/23 08/24/24 History (Linzess) potassium chloride 20 mEq 40 meq PO DAILY 06/05/23 History tablet,extended release(part/cryst) glucagon 1 mg solution for 1 mg IM PRN 06/08/23 Unknow n History injection (Glucagon Emergency Kit) insulin glargine 100 unit/mL (3 43 unit subcut DAILY 0 06/08/23 08/24/24 History mL) subcutaneous pen (Lantus Solostar U-100 Insulin) dulaglutide 4.5 mg/0.5 mL 4.5 mg subcut QWEEK 08/24/24 08/19/24 History subcutaneous pen injector (Trulicity) oxycodone 5 mg tablet 5 mg PO BID pain 30 days #60 tabs 09/29/24 Unknown Rx acetaminophen 325 mg tablet 650 mg PO Q4H PRN fever or pain 10/18/24 Unknown History aluminum-mag hydroxide-simethicone 15 ml PO Q4H PRN in digestion 10/18/24 Unknown History 400 mg-400 mg-40 mg/5 mL oral susp (Advanced Antacid-Antigas) cholecalciferol (vitamin D3) 50 50 mcg PO DAILY Unknown History mcg (2,000 unit) tablet (D3 DOTS) dextran 70-hypromellose 0.1 %-0.3 1 drp EACH EYE BID 0 10/18/24 Unknown History % eye drops (GenTeal Tears Mild) metformin 1,000 mg tablet 1,000 mg PO BID 10/18/24 Unk nown History ondansetron 4 mg disintegrating 4 mg PO Q6H PRN nausea and vomiting 10/18/24 Unknown History tablet polyethylene glycol 3350 17 17 g PO QODAY 10/18/24 Unk nown History gram/dose oral powder (ClearLax) Allergy/AdvReac Type Severity Reaction Status Date / Time sulfamethoxazole (From Allergy Rash Verified 08/24/24 08:34 Bactrim) trimethoprim (From Bactrim) Allergy Rash Verified 08/24/24 08:34 carbidopa (From Sinemet) AdvReac Nausea Verified 08/24/24 08:34 hydrocodone bitartrate (From AdvReac Nausea Verified 08/24/24 08:34 Vicodin) ketoprofen (From Orudis) AdvReac Unknown Verified 08/24/24 08:34 levodopa (From Sinemet) AdvReac Nausea Verified 08/24/24 08:34 lorazepam (From Ativan) AdvReac hallucinati Verified 08/24/24 08:34 on metformin HCl (From AdvReac Nausea Verified 08/24/24 08:34 Glucophage) naloxone AdvReac Nausea Verified 08/24/24 08:34 NSAIDS (Non-Steroidal AdvReac PT UNSURE Verified 08/24/24 08:34 Anti-Inflamma OF REACTION oxaprozin (From Daypro) AdvReac Nausea Verified 08/24/24 08:34 oxycodone HCl (From Percocet) AdvReac Nausea Verified 08/24/24 08:34 propoxyphene HCl (From AdvReac Nausea Verified 08/24/24 08:34 Darvon) rofecoxib (From Vioxx) AdvReac Nausea Verified 08/24/24 08:34 rosiglitazone maleate (From AdvReac Nausea Verified 08/24/24 08:34 Avandia) sertraline HCl (From Zoloft) AdvReac haullucinat Verified 08/24/24 08:34 ion simvastatin (From Zocor) AdvReac Nausea Verified 08/24/24 08:34 venlafaxine HCl (From AdvReac Nausea Verified 08/24/24 08:34 Effexor) Family History Unknown Asthma Arthritis Cancer Diabetes Heart disease Hypertension High cholesterol Kidney stones Liver disease Osteoporosis Skin cancer CVA (cerebral vascular accident) Surgical History (Updated 10/18/24 @ 21:[address] Anali Coello DO) Total knee replacement status Social History Smoking Status: Never smoker second hand exposure: No alcohol intake: never substance use type: does not use ROS Constitutional Constitutional: Denies anorexia, change in weight, chills, fatigue, fever(s), malaise, night sweats, weakness or other Eyes Eyes: Denies blurry vision, change in eye color, change in vision, discharge from eye(s), double vision, erythema, eye pain, loss of vision or other ENT HEENT: Reports abnormal hearing and headache(s); Denies dysphagia, ear pain, epistaxis, hearing loss, nasal congestion, nasal discharge, post nasal drip, sinus pressure, sore throat or other Cardiovascular Cardiovascular: Denies chest pain, claudication, dyspnea on exertion, edema, lightheadedness, orthopnea, palpitations, paroxysmal nocturnal dyspnea, rapid heart rate, syncope or other Respiratory/Chest Respiratory/Chest: Denies cough, dyspnea, excessive phlegm production, hemoptysis, productive cough, shortness of breath at rest, shortness of breath with exertion, wheezing or other Gastrointestinal Gastrointestinal: Denies abdominal pain, coffee ground emesis, constipation, diarrhea, dyspepsia, hematemesis, hematochezia, loose stools, melena, nausea, vomiting or other Genitourinary Genitourinary: Reports urinary frequency and urinary incontinence; Denies burning urination, difficulty urinating, dysuria, hematuria, nocturia, urinary hesitancy, urinary urgency or other Musculoskeletal Musculoskeletal: Reports joint pain and joint stiffness; Denies arthralgias, back pain, joint swelling, myalgias, neck pain or other Neurologic Neurologic: Reports abnormal gait and headache(s); Denies abnormal speech, confusion, disequilibrium, dizziness, focal weakness, numbness, paresthesias, seizure-like activity, seizures, syncope, tingling, tremor(s) or other Psychiatric Psychiatric: Denies anxiety, depression, homicidal ideation, suicidal ideation or other Endocrine Endocrinology: Denies change in body appearance, cold intolerance, excessive sweating, heat intolerance, polydipsia, polyuria or other Hematologic/Lymphatic Hematologic/Lymphatic: Denies anemia, easy bleeding, easy bruising, lymphadenopathy or other Allergic/Immunologic Allergic/Immunologic: Denies rhinitis, hives, eczemia, asthma or other Vital Signs Vital Signs Vital Signs: 10/18/24 16:46 10/18/24 16:51 10/18/24 16:54 Temperature 97.9 F Temperature Source Temporal Pulse Rate 91 Respiratory Rate 13 Respiratory Effort Normal Non-Labored Normal Non-Labored Respiratory Depth Normal Respiratory Pattern Normal Normal Blood Pressure 162/92 H Blood Pressure Mean 115 Pulse Ox 100 Oxygen Delivery Method Room Air Room Air 10/18/24 17:46 10/18/24 18:00 10/18/24 19:00 Temperature Temperature Source Pulse Rate 71 74 71 Respiratory Rate 14 16 18 Respiratory Effort Respiratory Depth Respiratory Pattern Blood Pressure 202/122 H 172/72 H 164/76 H Blood Pressure Mean 148 105 105 Pulse Ox 97 99 98 Oxygen Delivery Method Room Air 10/18/24 20:00 10/18/24 20:50 10/18/24 20:51 Temperature 97.4 F L 97.6 F L Temperature Source Temporal Pulse Rate 80 80 Respiratory Rate 16 18 16 Respiratory Effort Respiratory Depth Respiratory Pattern Blood Pressure 156/63 H 174/81 H 174/81 H Blood Pressure Mean 94 112 112 Pulse Ox 97 93 93 Oxygen Delivery Method Room Air Weight Weight: 56.2 kg Body Mass Index (BMI) 22.6 Physical Exam Const alert, oriented x3, no apparent distress and average body habitus; Negative for healthy appearing or well nourished Constitutional Narrative: Frail-appearing, nontoxic, elderly, white female, lying in right side-lying in bed appears comfortable, nontoxic, family at bedside General Appearance: cooperative HEENT normocephalic; Negative for head/scalp atraumatic HEENT Narrative: Large hematoma central forehead with overlying superficial vertical laceration, no more bleeding, mild to moderate hearing loss, dentition is 4, Mallampati is 2, no thrush, mucous membranes are moist Eyes EOMs intact bilaterally and conjunctivae normal Eyes Narrative: No scleral icterus Neck supple Neck Narrative: Trachea midline, trachea midline, no thyroid enlargement Resp normal respiratory effort, no retractions, no use of accessory muscles and clearto auscultation bilaterally Auscultation: Negative for rales, rhonchi or wheezes Cardio regular rate, regular rhythm, S1 normal heart sound, S2 normal heart sound, no murmurs, no rub, no gallops and no clicks GI normal to inspection, nondistended, normoactive bowel sounds, soft to palpation and non-tender Extremity Extremity Narrative: Trace chronic bilateral lower extremity edema that is nonpitting, no clubbing orcyanosis Skin Skin Narrative: Abrasion on arm, multiple areas of ecchymotic changes on lower extremities and very stages of healing Neuro oriented x3 and moves all extremities Neuro Narrative: Significant generalized weakness noted no focal deficits Speech: speech normal Psych affect normal Psych Narrative: Very pleasant, interacts appropriately Results Lab / Micro Data 10/18/24 16:30 10/18/24 16:30 Labs: Laboratory Results - last 24 hr 10/18/24 16:30: WBC 20.0 H, RBC 5.28, Hgb 15.5 H, Hct 48.0 H, MCV 90.9, MCH 29.4, MCHC 32.3, RDW Std Deviation 43.0, RDW Coeff of Sena 12.9, Plt Count 326, MPV 10.2, Immature Gran % (Auto) 0.700, Neut % (Auto) 89.4 H, Lymph % (Auto) 4.7L, Hickman % (Auto) 4.8, Eos % (Auto) 0.1, Baso % (Auto) 0.3, Absolute Neuts (auto)17.9 H, Absolute Lymphs (auto) 0.94, Nucleated RBC % 0, Sodium 143, Potassium 3.2 L, Chloride 102, Carbon Dioxide 24.5, Anion Gap 17 H, BUN 11, Creatinine 0.64 L, Estim Creat Clear Calc 42.88 L, Est GFR (MDRD) Non-Af 88, BUN/CreatinineRatio 17.1, Glucose 16 L*, Calcium 10.0, Total Bilirubin 0.33, AST 34 H, ALT 13,Alkaline Phosphatase 60, Total Protein 8.0, Albumin 4.7, Globulin 3.3, Albumin/Globulin Ratio 1.4 10/18/24 17:05: POC Glucose 82 10/18/24 17:39: POC Glucose 72 L 10/18/24 18:57: POC Glucose 98 10/18/24 19:41: Urine Color Yellow, Urine Clarity Clear, Urine pH 6.5, Ur Specific Reddell 1.015, Urine Protein 30 H, Urine Glucose (UA) 1000 H, Urine Ketones Negative, Urine Occult Blood 25 H, Urine Nitrite Positive H, Urine Bilirubin Negative, Urine Urobilinogen Normal, Ur Leukocyte Esterase 25 H, UrineRBC 0 SEEN, Urine WBC 10- 25 SEEN, Ur Squamous Epith Cells 0-5 SEEN, Urine Bacteria 4+, Urine Mucus 0 SEEN 10/18/24 20:07: POC Glucose 119 H 10/18/24 20:34: PT 13.4, INR 1.0 Imaging Radiology Impression Brain CT 10/18/24 17:01 IMPRESSION: No acute intracranial process. Mild anterior frontal scalp swelling. No acute calvarial defect. Reading Location: [facility] Assessment & Plan Assessment/Plan (1) Skin tear of forearm without complication: (2) Diabetic hypoglycemia: (3) Fall: (4) Traumatic hematoma of forehead: (5) Abrasion of forehead: PLAN: Plan Altered mental status secondary to severe hypoglycemia - Blood sugar on BMP at presentation was 19 - Dextrose drip started by the emergency department and will continue - Once blood sugars start to stabilize we will be able to stop drip and continueto trend every 2 hours - If remains stable off drip will institute sliding scale insulin but hold off any scheduled insulin - Patient is on a significant amount of medication for her diabetes with pretty poor p.o. intake per family - Takes Jardiance 10 mg daily, metformin 1000 mg p.o. twice daily, Lantus 43 units subcu daily, and Trulicity weekly 4.5 mg - Suspect this will need to be drastically altered prior to discharge Adverse medication reaction - Secondary to antihyperglycemic's - Regimen will need markedly altered prior to discharge Traumatic hematoma forehead/abrasion - Overlying superficial White laceration - No sutures needed - Consult wound nurse - Apply ice Falls/generalized weakness - Suspect multifactorial -PT/OT consultation - Case management/social work consultation - Patient currently resides at [place] [id number] - Hold all home antidiabetic agents - Will need marked adjustment of her diabetes medications prior to discharge - Patient did have hemoglobin A1c here on 10/06/2024 that was 9.5 - Once off dextrose drip will start SSI - Patient on generalized diet for now and will likely condition you during her hospitalization to encourage p.o. intake as she seems to be malnourished Parkinson's disease - Currently on no medication for this next-PT/OT consultation Essential hypertension - Continue home Lasix - Blood pressure is markedly elevated in the emergency department - May need additional medications for improved blood pressure control - Hydralazine 10 every 6 as needed for systolic pressure greater than 160s available History of bladder cancer - Remote Irritable bowel syndrome - Hold medication restart at discharge Chronic pain - Continue home oxycodone - Scheduled Tylenol 1000 mg 3 times daily Chronic constipation - Continue home MiraLAX Mild cognitive impairment - Patient is back to baseline at the time of admission family does admit to somemild memory loss at baseline DVT prophylaxis - Subcu Lovenox daily CODE STATUS - DNR CC-patient is enrolled in palliative care but not hospice at this time family would like to pursue palliative care Charges/Coding Visit Charges Inpatient E&M: 81415 Init Hosp L2 10/18/24 2224 <Electronically signed by Anali Coello DO> Cosigner Signature (if applicable): CC: Dr. Donato Sepulveda MD; Dr. Anali Coello DO~ Signed [facility] Work Phone: [phone] Discharge summary [facility] Medical Records Department [address] [place] [address] Emergency Department Summary 10/18/24 MR#: [id number] Acct: [id number] Name: JUSTUS CHINCHILLA Rep #:[id number] : 1940 84 From: Zoltan Gomez PCP: Dr. Donato Sepulveda MD Status:A DM IN Location: [facility] [id number] HPI HPI - Fall History of Present Illness Chief Complaint: Fall Informant: patient, EMS and SNF Narrative Narrative: 84-year-old female presenting to the emergency room with head trauma and alteredmental status. Reportedly had an unwitnessed fall and was found on the ground. There was a forehead hematoma and possible laceration as well as skin tear on the left arm. She was noted to be confused. EMS was called. They noted confusion of blood sugar of 32 and diaphoresis. Upon arrival in the emergency department after EMS treatment the patient is more alert. She is talkative. She has facial confusion but has appropriate thinking on direct questioning. Patient is a DNR comfort care/palliative care. She does havea history of diabetes. She does not know if she ate today. Patient takes oral hypoglycemicsas well as insulin. [facility] Medical History (Updated 10/18/24 @ 21:[address] Anali Coello DO) Parkinson disease Pain in both knees Vision problems Skin cancer GERD (gastroesophageal reflux disease) Osteopenia Osteoarthritis Neuropathy Heart murmur Liver disease Recurrent infections Hives High cholesterol HTN (hypertension) Chronic headaches Gallstones Type 2 diabetes mellitus Cataracts, bilateral Bladder cancer Recurrent UTI Back problem Asthma Arthritis Anxiety and depression Home Medications ?Medication ?Instructions ?Recorded ?Last Taken ?Type acetaminophen 325 mg tablet 325 mg PO BID CHRONIC PAIN 09/20/17 08/24/24 History dapagliflozin propanediol 10 mg 10 mg PO DAILY 4 08/24/24 History tablet (Farxiga) furosemide 20 mg tablet 20 mg PO DAILY 06/05/2308/05 History linaclotide 290 mcg capsule 290 mcg PO DAILY 06/05/23 08/24/24 History (Linzess) potassium chloride 20 mEq 40 meq PO DAILY 06/05/23 History tablet,extended release(part/cryst) glucagon 1 mg solution for 1 mg IM PRN 06/08/23 Unknow n History injection (Glucagon Emergency Kit) insulin glargine 100 unit/mL (3 43 unit subcut DAILY 0 06/08/23 08/24/24 History mL) subcutaneous pen (Lantus Solostar U-100 Insulin) dulaglutide 4.5 mg/0.5 mL 4.5 mg subcut QWEEK 08/24/24 08/19/24 History subcutaneous pen injector (Trulicity) oxycodone 5 mg tablet 5 mg PO BID pain 30 days #60 tabs 09/29/24 Unknown Rx acetaminophen 325 mg tablet 650 mg PO Q4H PRN fever or pain 10/18/24 Unknown History aluminum-mag hydroxide-simethicone 15 ml PO Q4H PRN in digestion 10/18/24 Unknown History 400 mg-400 mg-40 mg/5 mL oral susp (Advanced Antacid-Antigas) cholecalciferol (vitamin D3) 50 50 mcg PO DAILY Unknown History mcg (2,000 unit) tablet (D3 DOTS) dextran 70-hypromellose 0.1 %-0.3 1 drp EACH EYE BID 0 10/18/24 Unknown History % eye drops (GenTeal Tears Mild) metformin 1,000 mg tablet 1,000 mg PO BID 10/18/24 Unk nown History ondansetron 4 mg disintegrating 4 mg PO Q6H PRN nausea and vomiting 10/18/24 Unknown History tablet polyethylene glycol 3350 17 17 g PO QODAY 10/18/24 Unk nown History gram/dose oral powder (ClearLax) Allergy/AdvReac Type Severity Reaction Status Date / Time sulfamethoxazole (From Allergy Rash Verified 08/24/24 08:34 Bactrim) trimethoprim (From Bactrim) Allergy Rash Verified 08/24/24 08:34 carbidopa (From Sinemet) AdvReac Nausea Verified 08/24/24 08:34 hydrocodone bitartrate (From AdvReac Nausea Verified 08/24/24 08:34 Vicodin) ketoprofen (From Orudis) AdvReac Unknown Verified 08/24/24 08:34 levodopa (From Sinemet) AdvReac Nausea Verified 08/24/24 08:34 lorazepam (From Ativan) AdvReac hallucinati Verified 08/24/24 08:34 on metformin HCl (From AdvReac Nausea Verified 08/24/24 08:34 Glucophage) naloxone AdvReac Nausea Verified 08/24/24 08:34 NSAIDS (Non-Steroidal AdvReac PT UNSURE Verified 08/24/24 08:34 Anti-Inflamma OF REACTION oxaprozin (From Daypro) AdvReac Nausea Verified 08/24/24 08:34 oxycodone HCl (From Percocet) AdvReac Nausea Verified 08/24/24 08:34 propoxyphene HCl (From AdvReac Nausea Verified 08/24/24 08:34 Darvon) rofecoxib (From Vioxx) AdvReac Nausea Verified 08/24/24 08:34 rosiglitazone maleate (From AdvReac Nausea Verified 08/24/24 08:34 Avandia) sertraline HCl (From Zoloft) AdvReac haullucinat Verified 08/24/24 08:34 ion simvastatin (From Zocor) AdvReac Nausea Verified 08/24/24 08:34 venlafaxine HCl (From AdvReac Nausea Verified 08/24/24 08:34 Effexor) Family History Unknown Asthma Arthritis Cancer Diabetes Heart disease Hypertension High cholesterol Kidney stones Liver disease Osteoporosis Skin cancer CVA (cerebral vascular accident) Surgical History (Updated 10/18/24 @ 21:[address] Anali Coello DO) Total knee replacement status Social History Smoking Status: Never smoker second hand exposure: No alcohol intake: never substance use type: does not use ROS ROS ED Constitutional Constitutional ED: Denies chills, fever(s) or weight loss Eyes Eyes: Denies change in vision or diplopia ENT ENT ED: Denies ear pain, rhinorrhea or sore throat Cardiovascular Cardiovascular: Denies chest pain, orthopnea, palpitations or racing heartbeat Respiratory/Chest Respiratory/Chest: Denies cough, dyspnea or orthopnea Gastrointestinal Gastrointestinal: Denies abdominal pain, diarrhea, nausea or vomiting Genitourinary Genitourinary ED: Denies dysuria, hematuria or urinary frequency Musculoskeletal Musculoskeletal: Denies arthralgias or myalgias Integumentary Reports other Details: Forehead hematoma/abrasion/left forearm skin tear ; Denies abscess or rash Neurologic Neurologic: Reports headache(s); Denies weakness Psychiatric Psychiatric: Denies anxiety, depression, suicidal ideation or suicidal thoughts Endocrine Endocrinology: Denies polydipsia, polyphagia or polyuria Allergic/Immunologic Allergic/Immunologic ED: Denies mouth swelling, tongue swelling or urticaria EXAM Physical Exam Const Vital Signs: 10/18/24 16:46 10/18/24 16:51 10/18/24 16:54 Temperature 97.9 F Temperature Source Temporal Pulse Rate 91 Respiratory Rate 13 Respiratory Effort Normal Non-Labored Normal Non-Labored Respiratory Depth Normal Respiratory Pattern Normal Normal Blood Pressure 162/92 H Blood Pressure Mean 115 Pulse Ox 100 Oxygen Delivery Method Room Air Room Air 10/18/24 17:46 10/18/24 18:00 10/18/24 19:00 Temperature Temperature Source Pulse Rate 71 74 71 Respiratory Rate 14 16 18 Respiratory Effort Respiratory Depth Respiratory Pattern Blood Pressure 202/122 H 172/72 H 164/76 H Blood Pressure Mean 148 105 105 Pulse Ox 97 99 98 Oxygen Delivery Method Room Air 10/18/24 20:00 10/18/24 20:50 10/18/24 20:51 Temperature 97.4 F L 97.6 F L Temperature Source Temporal Pulse Rate 80 80 Respiratory Rate 16 18 16 Respiratory Effort Respiratory Depth Respiratory Pattern Blood Pressure 156/63 H 174/81 H 174/81 H Blood Pressure Mean 94 112 112 Pulse Ox 97 93 93 Oxygen Delivery Method Room Air Positive well nourished and well developed General Appearance ED: well developed HEENT Reports normocephalic and moist mucous membranes HEENT Narrative: There is a mid forehead hematoma just at the hairline. There is an associated abrasion no complete laceration. There is no active bleeding. The area around the hematoma is concussed. Eyes PERRL and EOMs intact bilaterally Neck full ROM, no lymphadenopathy, supple and no JVD General: Negative for tenderness Resp normal respiratory effort and clear to auscultation bilaterally Cardio regular rate, regular rhythm and no murmurs GI normal to inspection, nondistended, normoactive bowel sounds and non-tender Palpation: soft Back/Spine no CVA tenderness and normal ROM Extremity normal to inspection General Extremety ED: Negative for edema General Extremity: Negative for edema Neuro moves all extremities, no focal motor deficits and no sensory deficits noted Michaela Coma Scale: document GCS findings Spontaneous Obeys Commands Oriented 15 Sensorium / Orientation: alert, oriented to person and oriented to place; Negative for oriented to time Motor Exam: strength 5/5 throughout Psych mental status grossly normal Mood & Affect: Negative for depressed or tearful Skin no rashes or lesions noted Skin Narrative: There is a 3 cm skin tear to the dorsal left forearm. MDM MDM MDM Narrative Medical decision making narrative: Differential diagnosis includes but not limited to diabetic hypoglycemia intracranial hemorrhage concussion skull fracture laceration abrasion skin tear The forehead hematoma and abrasion was washed with Shur-Clens and explored. I placed Dermabond on the wound to keep the tissue in place and do not feel that any sutures. The skin tear of the left forearm had the skin smoothed out and washed. Was closed using Dermabond as well. CT of the brain was obtained. Patient was able to take some drinks and we ordered food. Patient really unwilling to eat or drink to keep her blood sugar up. After EMSs glucose in the apartment was at82 and the next reading was 72 and she was not eating therefore she was started on D10 half-normal saline. Blood sugars have been rising. Basic blood work showed a white count of 20 hemoglobin of 15.5 count of 326. BMP with a glucose of 16 (these are labs drawn by EMS) normal LFTs except for anAST of 34 creatinine 0.64. I believe that the white count is most likely reactive due to the hypoglycemia. We were able to finally obtain a urine specimen which demonstrates 10-25 white blood cells positive nitrates 4+ bacteria. This was sent for culture and she received a dose of Rocephin. Lactic acid was elevated 2.8. I donot believe that she needs volume resuscitated. She is also on metformin I think the elevated lactic acid is multifactorial and not really due to overwhelming sepsis. Spoke with her hospitalist and her plan is admission into the hospital. History & Record Review Discussion w/independent historian: EMS personnel, Patient and Other (SNF) Additional record(s) reviewed:: Prior inpatient record, Prior ED visit and Priorlabs Lab Data Attestation: I reviewed the patient's lab results. Labs: Laboratory Results - last 24 hr 10/18/24 10/18/24 10/18/24 16:30 17:05 17:39 WBC 20.0 H RBC 5.28 Hgb 15.5 H Hct 48.0 H MCV 90.9 MCH 29.4 MCHC 32.3 RDW Std Deviation 43.0 RDW Coeff of Sena 12.9 Plt Count 326 MPV 10.2 Immature Gran % (Auto) 0.700 Neut % (Auto) 89.4 H Lymph % (Auto) 4.7 L Hickman % (Auto) 4.8 Eos % (Auto) 0.1 Baso % (Auto) 0.3 Absolute Neuts (auto) 17.9 H Absolute Lymphs (auto) 0.94 Nucleated RBC % 0 PT INR Sodium 143 Potassium 3.2 L Chloride 102 Carbon Dioxide 24.5 Anion Gap 17 H BUN 11 Creatinine 0.64 L Estim Creat Clear Calc 42.88 L Est GFR (MDRD) Non-Af 88 BUN/Creatinine Ratio 17.1 Glucose 16 L* Lactic Acid Calcium 10.0 Total Bilirubin 0.33 AST 34 H ALT 13 Alkaline Phosphatase 60 Total Protein 8.0 Albumin 4.7 Globulin 3.3 Albumin/Globulin Ratio 1.4 Urine Color Urine Clarity Urine pH Ur Specific Reddell Urine Protein Urine Glucose (UA) Urine Ketones Urine Occult Blood Urine Nitrite Urine Bilirubin Urine Urobilinogen Ur Leukocyte Esterase Urine RBC Urine WBC Ur Squamous Epith Cells Urine Bacteria Urine Mucus POC Glucose 82 72 L 10/18/24 10/18/24 10/18/24 18:57 19:41 20:07 WBC RBC Hgb Hct MCV MCH MCHC RDW Std Deviation RDW Coeff of Sena Plt Count MPV Immature Gran % (Auto) Neut % (Auto) Lymph % (Auto) Hickman % (Auto) Eos % (Auto) Baso % (Auto) Absolute Neuts (auto) Absolute Lymphs (auto) Nucleated RBC % PT INR Sodium Potassium Chloride Carbon Dioxide Anion Gap BUN Creatinine Estim Creat Clear Calc Est GFR (MDRD) Non-Af BUN/Creatinine Ratio Glucose Lactic Acid Calcium Total Bilirubin AST ALT Alkaline Phosphatase Total Protein Albumin Globulin Albumin/Globulin Ratio Urine Color Yellow Urine Clarity Clear Urine pH 6.5 Ur Specific Reddell 1.015 Urine Protein 30 H Urine Glucose (UA) 1000 H Urine Ketones Negative Urine Occult Blood 25 H Urine Nitrite Positive H Urine Bilirubin Negative Urine Urobilinogen Normal Ur Leukocyte Esterase 25 H Urine RBC 0 SEEN Urine WBC 10-25 SEEN Ur Squamous Epith Cells 0-5 SEEN Urine Bacteria 4+ Urine Mucus 0 SEEN POC Glucose 98 119 H 10/18/24 10/18/24 20:34 21:26 WBC RBC Hgb Hct MCV MCH MCHC RDW Std Deviation RDW Coeff of Sena Plt Count MPV Immature Gran % (Auto) Neut % (Auto) Lymph % (Auto) Hickman % (Auto) Eos % (Auto) Baso % (Auto) Absolute Neuts (auto) Absolute Lymphs (auto) Nucleated RBC % PT 13.4 INR 1.0 Sodium Potassium Chloride Carbon Dioxide Anion Gap BUN Creatinine Estim Creat Clear Calc Est GFR (MDRD) Non-Af BUN/Creatinine Ratio Glucose Lactic Acid 2.8 H* Calcium Total Bilirubin AST ALT Alkaline Phosphatase Total Protein Albumin Globulin Albumin/Globulin Ratio Urine Color Urine Clarity Urine pH Ur Specific [place] Urine Protein Urine Glucose (UA) Urine Ketones Urine Occult Blood Urine Nitrite Urine Bilirubin Urine Urobilinogen Ur Leukocyte Esterase Urine RBC Urine WBC Ur Squamous Epith Cells Urine Bacteria Urine Mucus POC Glucose 129 H Radiography Diagnostic Testing: Clinical Impression(s) from Imaging Studies Brain CT 10/18/24 17:01 IMPRESSION: No acute intracranial process. Mild anterior frontal scalp swelling. No acute calvarial defect. Reading Location: [facility] Management Discussion w/another healthcare provider: Hospitalist (Dr. Coello) Discharge Plan Dx/Rx/DC Orders Clinical Impression: Traumatic hematoma of forehead, Abrasion of forehead, Fall, Diabetic hypoglycemia, Skin tear of forearm without complication, Acute UTI Disposition Disposition: [facility] Discharge Date/Time: 10/18/24 22:04 What to do if you have Problems For any increased pain, shortness of breath, bleeding, nausea or vomiting, chestpain, or any unexpected problems, contact your Primary Care Provider. Call [facility] ([phone]) or report tothe closest Emergency Room. Call 911 if necessary. 10/19/24 0013 Cosigner Signature (if applicable): CC: Dr. Donato Sepulveda MD ~ Signed [facility]06-15-2025 Evaluation note* Diagnosis Onset Date Resolution Status Admit Date Abrasion of forehead acute October 18, 2024 9:38pm Acute UTI acute October 18 9:38pm Diabetic hypoglycemia acute Oct 9:38pm Fall acute October 18 9:38pm Skin tear of forearm without complication acute October 18, 2024 9:38pm Traumatic hematoma of forehead acute October 18, 2024 9:38pm [facility] Work Phone: [phone] 539-799706-15-2025 History and physical note [facility] Medical Records Department [address] [place] [address] H&P Exam - Hospitalist 10/18/242107 MR#: [id number] Acct: [id number] Name: JUSTUS CHINCHILLA Rep #:[id number] : 1940 84 From: Anlai Coello DO PCP: Dr. Donato Sepulveda MD Status:A DM IN Location: [place] [address] HPI - General General Date of Admission: 10/18/24 Date of Service: 10/18/24 Chief Complaint: Fall/altered mental status HPI Narrative JUSTUS CHINCHILLA, is a 84 F who presented to the emergency department at [facility] on 10/18/2024 with chief complaint of head trauma after a falland altered mental status. Patient had an unwitnessed fall was found on the ground. She had a forehead hematoma with a small laceration as well as a skin tear on her left arm. She was noted to be markedly confused so the EMS was called. Bloodsugar was assessed on arrival and was 32 patient was diaphoretic at that time as well. She was treated by the squad and after arrival to the emergency department she was more alert but still somewhatconfused. By the time we were able to evaluate her she was very talkative and back to normal as shehad been treated with dextrose via IV. She has baseline confusion per family and seems to be at [facility] at the time of my admission. She does have a history of diabetes and takes quite a bit of medication. Family reports that her oral intake is poor at the nursing facility. Patient states the food is "terrible." Patient unable to remember when the last time she ate today was. Vital signs on presentation showed temperature 97.9, heart rate 91, respiratory 13, blood pressure was 162/92 and pulse ox was 100% room air. CBC did show significant leukocytosis with a white count of 20,000. She does seem to be hemoconcentrated as her hemoglobin was also are elevated compared to her baseline from just about a week ago at 15.5 with her hemoglobin a week ago being11.9. She does have a left shift with an 89.4% neutrophilia. Coags are normal. Chemistry panel shows mild hypokalemia with potassium of 3.2. Slight anion gapat 17 with a normal CO2. Renal function is normal. Glucose on BMP was 16. Lactic acid was 2.8. Liver functions are unremarkable. Urine is suggestive of infection and some dehydration with nitrite, leuk esterase, white cells, and 4+ bacteria. CT of the brain shows no acute infarct, cranial hemorrhage or mass effect. There are no signs of normal pressure hydrocephalus and mild to moderate chronic microvascular changes without area of mild anterior frontal scalp swelling. In the emergency department she was put on a D10 drip with improvement of her blood sugars. As her blood sugar improved her mentation improved as well. By the time of admission family thought that she was close to her baseline mentation. [facility] Medical History (Updated 10/18/24 @ 21:[address] Anali Coello, ) Parkinson disease Pain in both knees Vision problems Skin cancer GERD (gastroesophageal reflux disease) Osteopenia Osteoarthritis Neuropathy Heart murmur Liver disease Recurrent infections Hives High cholesterol HTN (hypertension) Chronic headaches Gallstones Type 2 diabetes mellitus Cataracts, bilateral Bladder cancer Recurrent UTI Back problem Asthma Arthritis Anxiety and depression Home Medications ?Medication ?Instructions ?Recorded ?Last Taken ?Type acetaminophen 325 mg tablet 325 mg PO BID CHRONIC PAIN 09/20/17 08/24/24 History dapagliflozin propanediol 10 mg 10 mg PO DAILY 4 08/24/24 History tablet (Farxiga) furosemide 20 mg tablet 20 mg PO DAILY 06/05/2308/05 History linaclotide 290 mcg capsule 290 mcg PO DAILY 06/05/23 08/24/24 History (Linzess) potassium chloride 20 mEq 40 meq PO DAILY 06/05/23 History tablet,extended release(part/cryst) glucagon 1 mg solution for 1 mg IM PRN 06/08/23 Unknow n History injection (Glucagon Emergency Kit) insulin glargine 100 unit/mL (3 43 unit subcut DAILY 0 06/08/23 08/24/24 History mL) subcutaneous pen (Lantus Solostar U-100 Insulin) dulaglutide 4.5 mg/0.5 mL 4.5 mg subcut QWEEK 08/24/24 08/19/24 History subcutaneous pen injector (Trulicity) oxycodone 5 mg tablet 5 mg PO BID pain 30 days #60 tabs 09/29/24 Unknown Rx acetaminophen 325 mg tablet 650 mg PO Q4H PRN fever or pain 10/18/24 Unknown History aluminum-mag hydroxide-simethicone 15 ml PO Q4H PRN in digestion 10/18/24 Unknown History 400 mg-400 mg-40 mg/5 mL oral susp (Advanced Antacid-Antigas) cholecalciferol (vitamin D3) 50 50 mcg PO DAILY Unknown History mcg (2,000 unit) tablet (D3 DOTS) dextran 70-hypromellose 0.1 %-0.3 1 drp EACH EYE BID 0 10/18/24 Unknown History % eye drops (GenTeal Tears Mild) metformin 1,000 mg tablet 1,000 mg PO BID 10/18/24 Unk nown History ondansetron 4 mg disintegrating 4 mg PO Q6H PRN nausea and vomiting 10/18/24 Unknown History tablet polyethylene glycol 3350 17 17 g PO QODAY 10/18/24 Unk nown History gram/dose oral powder (ClearLax) Allergy/AdvReac Type Severity Reaction Status Date / Time sulfamethoxazole (From Allergy Rash Verified 08/24/24 08:34 Bactrim) trimethoprim (From Bactrim) Allergy Rash Verified 08/24/24 08:34 carbidopa (From Sinemet) AdvReac Nausea Verified 08/24/24 08:34 hydrocodone bitartrate (From AdvReac Nausea Verified 08/24/24 08:34 Vicodin) ketoprofen (From Orudis) AdvReac Unknown Verified 08/24/24 08:34 levodopa (From Sinemet) AdvReac Nausea Verified 08/24/24 08:34 lorazepam (From Ativan) AdvReac hallucinati Verified 08/24/24 08:34 on metformin HCl (From AdvReac Nausea Verified 08/24/24 08:34 Glucophage) naloxone AdvReac Nausea Verified 08/24/24 08:34 NSAIDS (Non-Steroidal AdvReac PT UNSURE Verified 08/24/24 08:34 Anti-Inflamma OF REACTION oxaprozin (From Daypro) AdvReac Nausea Verified 08/24/24 08:34 oxycodone HCl (From Percocet) AdvReac Nausea Verified 08/24/24 08:34 propoxyphene HCl (From AdvReac Nausea Verified 08/24/24 08:34 Darvon) rofecoxib (From Vioxx) AdvReac Nausea Verified 08/24/24 08:34 rosiglitazone maleate (From AdvReac Nausea Verified 08/24/24 08:34 Avandia) sertraline HCl (From Zoloft) AdvReac haullucinat Verified 08/24/24 08:34 ion simvastatin (From Zocor) AdvReac Nausea Verified 08/24/24 08:34 venlafaxine HCl (From AdvReac Nausea Verified 08/24/24 08:34 Effexor) Family History Unknown Asthma Arthritis Cancer Diabetes Heart disease Hypertension High cholesterol Kidney stones Liver disease Osteoporosis Skin cancer CVA (cerebral vascular accident) Surgical History (Updated 10/18/24 @ 21:[address] Anali Coello DO) Total knee replacement status Social History Smoking Status: Never smoker second hand exposure: No alcohol intake: never substance use type: does not use ROS Constitutional Constitutional: Denies anorexia, change in weight, chills, fatigue, fever(s), malaise, night sweats, weakness or other Eyes Eyes: Denies blurry vision, change in eye color, change in vision, discharge from eye(s), double vision, erythema, eye pain, loss of vision or other ENT HEENT: Reports abnormal hearing and headache(s); Denies dysphagia, ear pain, epistaxis, hearing loss, nasal congestion, nasal discharge, post nasal drip, sinus pressure, sore throat or other Cardiovascular Cardiovascular: Denies chest pain, claudication, dyspnea on exertion, edema, lightheadedness, orthopnea, palpitations, paroxysmal nocturnal dyspnea, rapid heart rate, syncope or other Respiratory/Chest Respiratory/Chest: Denies cough, dyspnea, excessive phlegm production, hemoptysis, productive cough, shortness of breath at rest, shortness of breath with exertion, wheezing or other Gastrointestinal Gastrointestinal: Denies abdominal pain, coffee ground emesis, constipation, diarrhea, dyspepsia, hematemesis, hematochezia, loose stools, melena, nausea, vomiting or other Genitourinary Genitourinary: Reports urinary frequency and urinary incontinence; Denies burning urination, difficulty urinating, dysuria, hematuria, nocturia, urinary hesitancy, urinary urgency or other Musculoskeletal Musculoskeletal: Reports joint pain and joint stiffness; Denies arthralgias, back pain, joint swelling, myalgias, neck pain or other Neurologic Neurologic: Reports abnormal gait and headache(s); Denies abnormal speech, confusion, disequilibrium, dizziness, focal weakness, numbness, paresthesias, seizure-like activity, seizures, syncope, tingling, tremor(s) or other Psychiatric Psychiatric: Denies anxiety, depression, homicidal ideation, suicidal ideation or other Endocrine Endocrinology: Denies change in body appearance, cold intolerance, excessive sweating, heat intolerance, polydipsia, polyuria or other Hematologic/Lymphatic Hematologic/Lymphatic: Denies anemia, easy bleeding, easy bruising, lymphadenopathy or other Allergic/Immunologic Allergic/Immunologic: Denies rhinitis, hives, eczemia, asthma or other Vital Signs Vital Signs Vital Signs: 10/18/24 16:46 10/18/24 16:51 10/18/24 16:54 Temperature 97.9 F Temperature Source Temporal Pulse Rate 91 Respiratory Rate 13 Respiratory Effort Normal Non-Labored Normal Non-Labored Respiratory Depth Normal Respiratory Pattern Normal Normal Blood Pressure 162/92 H Blood Pressure Mean 115 Pulse Ox 100 Oxygen Delivery Method Room Air Room Air 10/18/24 17:46 10/18/24 18:00 10/18/24 19:00 Temperature Temperature Source Pulse Rate 71 74 71 Respiratory Rate 14 16 18 Respiratory Effort Respiratory Depth Respiratory Pattern Blood Pressure 202/122 H 172/72 H 164/76 H Blood Pressure Mean 148 105 105 Pulse Ox 97 99 98 Oxygen Delivery Method Room Air 10/18/24 20:00 10/18/24 20:50 10/18/24 20:51 Temperature 97.4 F L 97.6 F L Temperature Source Temporal Pulse Rate 80 80 Respiratory Rate 16 18 16 Respiratory Effort Respiratory Depth Respiratory Pattern Blood Pressure 156/63 H 174/81 H 174/81 H Blood Pressure Mean 94 112 112 Pulse Ox 97 93 93 Oxygen Delivery Method Room Air Weight Weight: 56.2 kg Body Mass Index (BMI) 22.6 Physical Exam Const alert, oriented x3, no apparent distress and average body habitus; Negative for healthy appearing or well nourished Constitutional Narrative: Frail-appearing, nontoxic, elderly, white female, lying in right side-lying in bed appears comfortable, nontoxic, family at bedside General Appearance: cooperative HEENT normocephalic; Negative for head/scalp atraumatic HEENT Narrative: Large hematoma central forehead with overlying superficial vertical laceration, no more bleeding, mild to moderate hearing loss, dentition is 4, Mallampati is 2, no thrush, mucous membranes are moist Eyes EOMs intact bilaterally and conjunctivae normal Eyes Narrative: No scleral icterus Neck supple Neck Narrative: Trachea midline, trachea midline, no thyroid enlargement Resp normal respiratory effort, no retractions, no use of accessory muscles and clearto auscultation bilaterally Auscultation: Negative for rales, rhonchi or wheezes Cardio regular rate, regular rhythm, S1 normal heart sound, S2 normal heart sound, no murmurs, no rub, no gallops and no clicks GI normal to inspection, nondistended, normoactive bowel sounds, soft to palpation and non-tender Extremity Extremity Narrative: Trace chronic bilateral lower extremity edema that is nonpitting, no clubbing orcyanosis Skin Skin Narrative: Abrasion on arm, multiple areas of ecchymotic changes on lower extremities and very stages of healing Neuro oriented x3 and moves all extremities Neuro Narrative: Significant generalized weakness noted no focal deficits Speech: speech normal Psych affect normal Psych Narrative: Very pleasant, interacts appropriately Results Lab / Micro Data 10/18/24 16:30 10/18/24 16:30 Labs: Laboratory Results - last 24 hr 10/18/24 16:30: WBC 20.0 H, RBC 5.28, Hgb 15.5 H, Hct 48.0 H, MCV 90.9, MCH 29.4, MCHC 32.3, RDW Std Deviation 43.0, RDW Coeff of Sena 12.9, Plt Count 326, MPV 10.2, Immature Gran % (Auto) 0.700, Neut% (Auto) 89.4 H, Lymph % (Auto) 4.7L, Hickman % (Auto) 4.8, Eos % (Auto) 0.1, Baso % (Auto) 0.3, Absolute Neuts (auto)17.9 H, Absolute Lymphs (auto) 0.94, Nucleated RBC % 0, Sodium 143, Potassium 3.2 L,Chloride 102, Carbon Dioxide 24.5, Anion Gap 17 H, BUN 11, Creatinine 0.64 L, Estim Creat Clear Calc 42.88 L, Est GFR (MDRD) Non-Af 88, BUN/CreatinineRatio 17.1, Glucose 16 L*, Calcium 10.0, Total Bilirubin 0.33, AST 34 H, ALT 13,Alkaline Phosphatase 60, Total Protein 8.0, Albumin 4.7, Globulin 3.3, Albumin/Globulin Ratio 1.4 10/18/24 17:05: POC Glucose 82 10/18/24 17:39: POC Glucose 72 L 10/18/24 18:57: POC Glucose 98 10/18/24 19:41: Urine Color Yellow, Urine Clarity Clear, Urine pH 6.5, Ur Specific Reddell 1.015, Urine Protein 30 H, Urine Glucose (UA) 1000 H, Urine Ketones Negative, Urine Occult Blood 25 H, UrineNitrite Positive H, Urine Bilirubin Negative, Urine Urobilinogen Normal, Ur Leukocyte Esterase 25 H, UrineRBC 0 SEEN, Urine WBC 10-25 SEEN, Ur Squamous Epith Cells 0-5 SEEN, Urine Bacteria 4+, Urine Mucus 0 SEEN 10/18/24 20:07: POC Glucose 119 H 10/18/24 20:34: PT 13.4, INR 1.0 Imaging Radiology Impression Brain CT 10/18/24 17:01 IMPRESSION: No acute intracranial process. Mild anterior frontal scalp swelling. No acute calvarial defect. Reading Location: [id number] Assessment & Plan Assessment/Plan (1) Skin tear of forearm without complication: (2) Diabetic hypoglycemia: (3) Fall: (4) Traumatic hematoma of forehead: (5) Abrasion of forehead: PLAN: Plan Altered mental status secondary to severe hypoglycemia - Blood sugar on [facility] at presentation was 19 - Dextrose drip started by the emergency department and will continue - Once blood sugars start to stabilize we will be able to stop drip and continueto trend every 2 hours - If remains stable off drip will institute sliding scale insulin but hold off any scheduled insulin - Patient is on a significant amount of medication for her diabetes with pretty poor p.o. intake per family - Takes Jardiance 10 mg daily, metformin 1000 mg p.o. twice daily, Lantus 43 units subcu daily, andTrulicity weekly 4.5 mg - Suspect this will need to be drastically altered prior to discharge Adverse medication reaction - Secondary to antihyperglycemic's - Regimen will need markedly altered prior to discharge Traumatic hematoma forehead/abrasion - Overlying superficial White laceration - No sutures needed - Consult wound nurse - Apply ice Falls/generalized weakness - Suspect multifactorial -PT/OT consultation - Case management/social work consultation - Patient currently resides at [facility] - Hold all home antidiabetic agents - Will need marked adjustment of her diabetes medications prior to discharge - Patient did have hemoglobin A1c here on 10/06/2024 that was 9.5 - Once off dextrose drip will start SSI - Patient on generalized diet for now and will likely condition you during her hospitalization to encourage p.o. intake as she seems to be malnourished Parkinson's disease - Currently on no medication for this next-PT/OT consultation Essential hypertension - Continue home Lasix - Blood pressure is markedly elevated in the emergency department - May need additional medications for improved blood pressure control - Hydralazine 10 every 6 as needed for systolic pressure greater than 160s available History of bladder cancer - Remote Irritable bowel syndrome - Hold medication restart at discharge Chronic pain - Continue home oxycodone - Scheduled Tylenol 1000 mg 3 times daily Chronic constipation - Continue home MiraLAX Mild cognitive impairment - Patient is back to baseline at the time of admission family does admit to somemild memory loss atbaseline DVT prophylaxis - Subcu Lovenox daily CODE STATUS - DNR CC-patient is enrolled in palliative care but not hospice at this time family would like to pursue palliative care Charges/Coding Visit Charges Inpatient E&M: 27300 Init Hosp L2 10/18/24 2224 Cosigner Signature (if applicable): CC: Dr. Donato Sepulveda MD; Dr. Anali Coello DO~ Signed [facility]06-15-2025 Radiology Diagnostic study note [facility] Imaging Services [address] [place] [place], [place] [id number] Brain/Head without Contrast MR#: [id number] Acct: [id number] Name: JUSTUS CHINCHILLA Rep #: [id number] : 1940 F 84 From: Debby Contreras MD PCP: Dr. Donato Sepulveda MD Status: R EG ER Study:Brain/Head without Contrast Date of Exa m: 10/18/24 Exam# [id number] Ordering Dr: Parminder Garcia DO PROCEDURE: BRAIN/HEAD WITHOUT CONTRAST 10/18/2024 REASON FOR EXAM: TRAUMA TECHNIQUE: BRAIN/HEAD WITHOUT CONTRAST Coronal and Sagittal reconstruction series were provided. One or more dose reduction techniques were used (e.g., Automated exposure control, adjustment of the mA and/or kV according to patient size, use of iterative reconstruction technique. RADIATION DOSE SUMMARY: DLP: 779 mGycm COMPARISON: 06/08/2023 FINDINGS: There is no acute infarct, intracranial hemorrhage, or mass effect. There is no hydrocephalus or significant midline shift. There is [id number] chronic microvascular ischemic changes and baqe-li-fgneuuvt parenchymal volume loss. No acute, depressed calvarial fractures. Mild anterior frontal scalp swelling. Bilateral lens surgeries. CT/Brain/Head without Contrast IMPRESSION: No acute intracranial process. Mild anterior frontal scalp swelling. No acute calvarial defect. Reading Location: [id number] CC: Dr. Zoltan Garcia DO; Dr. Donato Sepulveda MD ~ Lead Generation Marketing Manager: Signed [facility]04-21-2025 Procedure note [facility] Medical Records Department [address] [place] [address] Operative Report 08/24/24931 MR#: [id number] Acct: [id number] Name: JUSTUS CHINCHILLA Rep #:[id number] : 1940 84 From: Armando Rich MD PCP: Dr. Donato Sepulveda MD Status:R EG [facility] [place] [facility] Location: [place] [address] Operative Report (Standard) Operative Information Date of Procedure: 08/24/24 Pre-Operative Diagnosis: Osteoarthritis of the right knee, chronic postoperativeknee pain Post-Operative Diagnosis: Osteoarthritis of the right knee, chronic postoperative knee pain Surgery/Procedure Performed: Right knee superior medial/superior lateral/inferior medial genicular nerves steroid injection under fluoroscopic guidance outside sales associate: No Type of Anesthesia: Local RN Documented Start/Stop Times: Operation Date: 08/24/24 09:20 Case Time Into Pre-Op 08/24/24 08:32 Into Room 08/24/24 09:18 Procedure Start 08/24/24 09:24 Procedure End 08/24/24 09:28 Out of Room 08/24/24 09:30 Procedure Start Time: 09:33 Procedure Stop Time: 09:33 Select all DRAINS/GRAFTS/IMPLANTS that apply: None Estimated Blood Loss: 1 Specimen collected: No Description of surgery: DESCRIPTION OF PROCEDURE: History and physical of today was reviewed. Risks and benefits of the procedure were explained. The patient understood and agreedto proceed. Informed consent was obtained. IV inserted per routine protocol. The patient was taken to the operating room and placed in the supine position. The right knee was prepped and draped in a sterile fashion using iodine x3. Under fluoroscopy guidance on AP view, the right knee was visualized. The skin and subcutaneous tissue was anesthetized with approximately 5 mL of 1% lidocaineusing a 25-gauge regular needle at the vicinity of the superomedial, superolateral, and inferomedial genicular nerves. Under direct visualization offluoroscopy on AP view as well as lateral view, starting on the right superomedial, ending on the right inferomedial, passing through the right superolateral genicular nerves, the needle was passed throughthe skin. The tipof the needle was maneuvered and directed towards the diaphyseal junction of each c orresponding nerve. Once tip of the needle was in the vicinity of the diaphysis and in contact withthe bone, after confirmation on AP as well as lateral view and repeated negative aspiration for blood, a total of 12 mL of preservative- free 0.25% Marcaine with 80 mg of Depo-Medrol [...] Dr. Donato Sepulveda MD; Dr. Armando Rich MD~ Signed [facility]01-31-2024 Discharge summary Author Colleen [facility] June 05, 2023 7:54am Note Date/Time June 05, 2023 4 :38am [facility] Medical Records Department [address] [place] [address] Emergency Department Summary 06/05/23 MR#: [id number] Acct: [id number] Name: JUSTUS CHINCHILLA Rep #:[id number] : 1940 82 From: Colleen Gomez PCP: Dr. Basilio Flores MD Status:REG ER Location: ED HPI History of Present Illness Chief Complaint: Head Injury Informant: patient Narrative Narrative: Patient is an 82-year-old female presenting from [facility] after she injured her head. [...] Is not on any blood thinners. Per residential report patient was in the dining room at the table doing her puzzles which is her typical activity. Unclear if there was loss of consciousness. Was sent for evaluation of injuries. Tetanus Immunization: Unknown [facility] Medical History Anxiety and depression [...] her baseline. No focal neurologic deficits appreciated [place] Coma Scale: document GCS findings Spontaneous Obeys Commands Confused 14 Sensorium / Orientation: alert and oriented to person Psych mental status grossly normal and thought process normal Skin Skin Narrative: Right upper forehead laceration 1 cm. There is a punctate area that is full- thickness with remaining there is partial-thickness. Wound edges [...] Family Additional record(s) reviewed:: Prior outpatient record (residential paperwork ) Lab Data Attestation: I reviewed [...] 76.3 H Lymph % (Auto) 13.6 L Hickman % (Auto) 7.2 Eos % (Auto) 2.0 [...] Sl. Cloudy Urine pH 6.0 Ur Specific Reddell 1.015 Urine Protein 15 H Urine Glucose [...] acute injury or abnormalities. The cause of Justus's frequent falls is not clear however at this time I do not think she requires admission to the hospital. Disposition Disposition: Home, Self Care What to do if you have Problems For any increased pain, shortness of breath, bleeding, nausea or vomiting, chestpain, or any unexpected problems, contact your Primary Care Provider. Call [facility] ([phone]) or report to the closest Emergency Room. Call 911 if necessary. 06/05/23 0752 <Electronically signed by Colleen Walker DO> Cosigner Signature (if applicable): CC: Dr. Basilio Flores MD ~ Signed [facility] Work Phone: Evaluation noteNo assessment information available [facility] Work Phone: Evaluation note* Diagnosis Onset Date Resolution Status Admit Date Abrasion of forehead acute October 18, 2024 9:38pm Acute UTI acute October 18 9:38pm Diabetic hypoglycemia acute Oct 9:38pm Fall acute October 18 9:38pm Skin tear of forearm without complication acute October 18, 2024 9:38pm Traumatic hematoma of forehead acute October 18, 2024 9:38pm [facility] Work Phone: Hospital Discharge instructions Additional Instructions Lab work including CBC, BMP, urinalysis and CT of the head, cervical spine as well as x-ray of the right elbow do not show any acute injury or abnormalities. The cause of Justus's frequent falls is not clear however at this time I do not think she requires admission to the hospital.[facility] Work Phone: Reason for referral (narrative)No reason for referral information availableWAvita [facility] Work Phone: Chief Complaint Chief Complaint Description Start Date lower back pain Preliminary chief co mplaint data, not yet signed by the author as of Instructions Instruction Description Start Date Patient advised to follow-up with Primary Care Physician for BMI management. Advance Directives No Advanced Directives Records Found Advance Directive Response Recorded Date/ Time Advance Directives Yes October 13 1:44pm Living Will Yes December 15 0 6:54pm Power of Autism Teacher Yes December 15, 6:54pm Advance Directive Response Recorded Date/ Time Advance Directives Yes October 13 12:44pm Living Will Yes December 15 0 5:54pm Power of Autism Teacher Yes December 15 020 5:54pm Advance Directive Response Recorded Date/ Time Advance Directives Yes March 07, 2023 11:00am Living Will Yes March 07 11:00am Power of Autism Teacher Yes March 07, 2023 11:00am Advance Directive Response Recorded Date/ Time Name of Medical Power of Autism Teacher ABEBE VELEZ June 05, 2023 3:45am Advance Directives Yes March 07, 2023 11:00am Living Will Yes June 05 3:45am Power of Autism Teacher Yes June 05, 2023 3:45am Advance Directive Response Recorded Date/ Time Name of Medical Power of Autism Teacher ABEBE VELEZ June 05, 2023 3:45am Advance Directives Yes March 07, 2023 11:00am Living Will No June 08 8:10am Power of Autism Teacher No June 08, 2023 8:10am Advance Directive Response Recorded Date/ Time Name of Medical Power of Autism Teacher ABEBE VELEZ June 05, 2023 4:45am Advance Directives Yes March 07, 2023 12:00pm Living Will No June 08 9:10am Power of Autism Teacher No June 08, 2023 9:10am Advance Directive Response Recorded Date/ Time Advance Directives Yes March 07, 2023 12:00pm Advance Directive Response Recorded Date/ Time Do you have a Healthcare Power of Autism Teacher? Yes October 18, 2024 4:46pm Advance Directives Yes March 07, 2023 12:00pm Advance Directive Response Recorded Date/ Time Do you have a Healthcare Pow er of Autism Teacher? Yes October 18, 2024 10:15pm Name of Medical Power of Autism Teacher Ina Jaimes October 18, 2024 10:15pm Advance Directives Yes March 07, 2023 12:00pm Assessments There may be information available, but it has not been provided by the sender. Review of System There may be information available, but it has not been provided by the sender. Family History No Family History Records Found Relationship Condition Age at Onset Recorded Date/T [...] Complaint and Reason for Visit Chief Complaint SENIOR CARE LAB WOR K SENIOR CARE PATIENT Chief Complaint SENIOR CARE LAB WOR K SENIOR CARE PATIENT MONTHLY EXAM Chief Complaint SENIOR CARE LAB WOR K SENIOR CARE PATIENT MONTHLY EXAM LABWORK Chief Complaint SENIOR CARE PATIENT MONTHLY EXAM LABWORK Chief Complaint MONTHLY EXAM LABWORK SENIOR CARE LABWORK SENIOR CARE LABWORK MONTHLY EXAM SENIOR CARE LABWORK Chief Complaint SENIOR CARE LABWORK MONTHLY EXAM SENIOR CARE LABWORK SENIOR CARE LABWORK Chief Complaint MONTHLY EXAM SENIOR CARE LABWORK SENIOR CARE LABWORK SENIOR CARE LABWORK Chief Complaint SENIOR CARE LABWORK SENIOR CARE LABWORK NEW SYMPTOMS/CONCERNS ACUTE CARE VISIT SENIOR CARE LAB WORK SENIOR CARE LAB WORK Chief Complaint SENIOR CARE LABWORK NEW SYMPTOMS/CONCERNS ACUTE CARE VISIT SENIOR CARE LAB WORK SENIOR CARE LABWORK SENIOR CARE LAB WORK MONTHLY EXAM SENIOR CARE LABWORK NEW PROBLEM/CONCERN Chief Complaint MONTHLY EXAM SENIOR CARE LABWORK NEW PROBLEM/CONCERN NEW PROBLEM NEW PROBLEM/CONCERN NEW PROBLEM NEW PROBLEM NEW PROBLEM SENIOR CARE LABWORK Chief Complaint MONTHLY EXAM SENIOR CARE LABWORK NEW PROBLEM/CONCERN NEW PROBLEM NEW PROBLEM/CONCERN NEW PROBLEM NEW PROBLEM NEW PROBLEM SENIOR CARE LABWORK SENIOR CARE LABWORK Chief Complaint NEW CONCERN SENIOR CARE LABWORK MONTHLY EXAM SENIOR CARE LAB WORK SENIOR CARE LABWORK SENIOR CARE LAB WORK MONTHLY EXAM MONTHLY EXAM SENIOR CARE LAB WORK Chief Complaint NEW CONCERN SENIOR CARE LABWORK MONTHLY EXAM SENIOR CARE LAB WORK SENIOR CARE LABWORK SENIOR CARE LAB WORK MONTHLY EXAM MONTHLY EXAM SENIOR CARE LAB WORK SENIOR CARE LAB WORK Chief Complaint NEW CONCERN NEW CONCERN MONTHLY EXAM NEW CONCERN NEW CONCERN SENIOR CARE LAB WORK FOLLOW UP SENIOR CARE LAB WORK ACUTE CARE MONTHLY EXAM SENIOR CARE LAB WORK Chief Complaint NEW CONCERN MONTHLY EXAM NEW CONCERN NEW CONCERN SENIOR CARE LAB WORK FOLLOW UP SENIOR CARE LAB WORK ACUTE CARE MONTHLY EXAM SENIOR CARE LAB WORK SENIOR CARE LABWORK SENIOR CARE LABWORK Chief Complaint SENIOR CARE LAB WOR K FOLLOW UP SENIOR CARE LAB WORK ACUTE CARE MONTHLY EXAM SENIOR CARE LAB WORK SENIOR CARE LABWORK SENIOR CARE LABWORK MONTHLY EXAM NEWSPAPER REPORTER HEAD INJURY Chief Complaint FOLLOW UP SENIOR CARE LAB WORK ACUTE CARE MONTHLY EXAM SENIOR CARE LAB WORK SENIOR CARE LABWORK SENIOR CARE LABWORK MONTHLY EXAM NEWSPAPER REPORTER NEW CONCERN MONTHLY EXAM - MD HEAD INJURY NEW CONCERN fall LABWORK Chief Complaint SENIOR CARE LABWORK SENIOR CARE LABWORK MONTHLY EXAM NEWSPAPER REPORTER NEW CONCERN MONTHLY EXAM - MD HEAD INJURY NEW CONCERN fall LABWORK SENIOR CARE LAB WORK Chief Complaint Admit Date SENIOR CARE LAB WORK April 21 5:00am MONTHLY EXAM May 19, 2024 4 :53pm NEW CONCERN June 01, 2024 5 :22pm SENIOR CARE LAB WORK June 02, 2024 5:00am SENIOR CARE LAB WORK June 09, 2024 5:00am SENIOR CARE LAB WORK June 15 3:15pm NEW CONCERN June 26, 2024 5:54pm SENIOR CARE LAB WORK July 14, 2024 4 :00am SENIOR CARE LAB WORK July 15, 2024 5 :00am Chief Complaint Admit Date SENIOR CARE LAB WORK April 21 5:00am MONTHLY EXAM May 19, 2024 4 :53pm NEW CONCERN June 01, 2024 5 :22pm SENIOR CARE LAB WORK June 02, 2024 5:00am SENIOR CARE LAB WORK June 09, 2024 5:00am SENIOR CARE LAB WORK June 15 3:15pm NEW CONCERN June 26, 2024 5:54pm SENIOR CARE LAB WORK July 14, 2024 4 :00am MONTHLY EXAM July 14, 2024 4:0 5pm SENIOR CARE LAB WORK July 15, 2024 5 :00am Chief Complaint Admit Date MONTHLY EXAM May 19, 2024 4 :53pm NEW CONCERN June 01, 2024 5 :22pm SENIOR CARE LAB WORK June 02, 2024 5:00am SENIOR CARE LAB WORK June 09, 2024 5:00am SENIOR CARE LAB WORK June 15 3:15pm NEW CONCERN June 26, 2024 5:54pm SENIOR CARE LAB WORK July 14, 2024 4 :00am MONTHLY EXAM July 14, 2024 4:0 5pm SENIOR CARE LAB WORK July 15, 2024 5 :00am Chief Complaint Admit Date SENIOR CARE LAB WORK June 09, 2024 5:00am SENIOR CARE LAB WORK June 15 3:15pm NEW CONCERN June 26, 2024 5:54pm SENIOR CARE LAB WORK July 14, 2024 4 :00am MONTHLY EXAM July 14, 2024 4:0 5pm SENIOR CARE LAB WORK July 15, 2024 5 :00am MONTHLY EXAM August 17, 2024 4:4 9pm SENIOR CARE LAB WORK August 25, 2024 4 :00am Chief Complaint Admit Date SENIOR CARE LAB WORK June 15 3:15pm NEW CONCERN June 26, 2024 5:54pm SENIOR CARE LAB WORK July 14, 2024 4 :00am MONTHLY EXAM July 14, 2024 4:0 5pm SENIOR CARE LAB WORK July 15, 2024 5 :00am MONTHLY EXAM August 17, 2024 4:4 9pm SENIOR CARE LAB WORK August 25, 2024 4 :00am SENIOR CARE LAB WORK September 08, 2024 5:00 am Chief Complaint Admit Date NEW CONCERN June 26, 2024 5:54pm SENIOR CARE LAB WORK July 14, 2024 4 :00am MONTHLY EXAM July 14, 2024 4:0 5pm SENIOR CARE LAB WORK July 15, 2024 5 :00am MONTHLY EXAM August 17, 2024 4:4 9pm SENIOR CARE LAB WORK August 25, 2024 4 :00am SENIOR CARE LAB WORK September 08, 2024 5:00 am SEVERE HYPOGLYCEMIA/UTI October 18, 2024 9:38pm Reason for Visit Admit Date Abrasion of forehead October 18, 2024 9:3 8pm Acute UTI October 18, 2024 9:38 pm Diabetic hypoglycemia October 18, 2024 9: 38pm Fall October 18, 2024 9:38 pm Skin tear of forearm without complicatio n October 18, 2024 9:38pm Traumatic hematoma of forehead October 9:38pm Chief Complaint Admit Date NEW CONCERN June 26, 2024 5:54pm SENIOR CARE LAB WORK July 14, 2024 4 :00am MONTHLY EXAM July 14, 2024 4:0 5pm SENIOR CARE LAB WORK July 15, 2024 5 :00am MONTHLY EXAM August 17, 2024 4:4 9pm SENIOR CARE LAB WORK August 25, 2024 4 :00am SENIOR CARE LAB WORK September 08, 2024 5:00 am SEVERE HYPOGLYCEMIA/UTI October 18, 2024 9:38pm SEVERE HYPOGLYCEMIA/UTI October 19, 2024 6:52pm SEVERE HYPOGLYCEMIA/UTI October 20, 2024 11:11am Summary Purpose Additional Source Comments Reason for Visit (unrecogniz ed section and content) Reason For Visit Description New - visit with practice Preliminary reason f or [...] 2024 End: June 26, 2024 Debora Schneider NP NEWSPAPER REPORTER-C Attending Provider Active Start: June 26, 2024 [...] 2024 End: August 17, 2024 Debora Schneider NP NEWSPAPER REPORTER-C Attending Provider Active Start: August 17, 2024 [...] 2024 End: August 24, 2024 Debora Schneider NEWSPAPER REPORTER, NEWSPAPER REPORTER-C Other Provider Active S tart: August 24, [...] 2024 End: August 25, 2024 Team Status: Inactive Member Role Status [...] Attending Provider Active Start: October 06, 2024 Team Status: Active Member Role Status Dates Dr. Donato Sepulveda MD Primary Care Provider Active Start: October 18, 2024 Dr. Zoltan Garcia DO Emergency Provider Active Start: October 18, 2024 Dr. Anali Coello DO Admit Provider Active Start : October 18, 2024 Dr. Anali Coello DO Attending Provider Active S tart: October 18, 2024 Team Status: Active Member Role Status Dates Dr. Basilio Flores MD Primary Care Provider Active Start: June 09, 2024 Donato COLVIN MD Attending Provider Active Start: June 09, 2024 Team Status: Active Member Role Status Dates Dr. Basilio Flores MD Primary Care Provider Active Start: June 15, 2024 Donato COLVIN MD Attending Provider Active Start: June 15, 2024 Team Status: Active Member Role Status [...] MD Primary Care Provider Active Debora Schneider NEWSPAPER REPORTER, NEWSPAPER REPORTER-C Attending Provider Active Team Status: Inactive Member [...] 2024 End: June 01, 2024 Debora Schneider NP, NEWSPAPER REPORTER-C Attending Provider Active Start: June 01, 2024 [...] MD Primary Care Provider Active Start: October 18, 2024 End: October 20, 2024 Dr. Zoltan Garcia DO Emergency Provider Active Start: October 18, 2024 End: October 20, 2024 Dr. Anali Coello DO Admit Provider Active Start : October 18, 2024 End: October 20, 2024 Dr. Anali Coello DO Other Provider Active Start : October 18, 2024 End: October 20, 2024 Dr. Ángel Lam MD Attending Provider Active Start: October 18, 2024 End: October 20, 2024 Team Status: Active Member Role Status Dates Dr. Donato Sepulveda MD Primary Care Provider Active Start: October 19, 2024 Dr. Zoltan Garcia DO Emergency Provider Active Start: October 19, 2024 Dr. Anali Coello DO Admit Provider Active Start : October 19, 2024 Dr. Anali Coello DO Other Provider Active Start : October 19, 2024 Dr. Ángel Lam MD Attending Provider Active Start: October 19, 2024 Dr. Ángel Lam MD Other Provider Active Start: October 19, 2024 Team Status: Active Member Role Status Dates Dr. Donato Sepulveda MD Primary Care Provider Active Start: October 20, 2024 Dr. Zoltan Garcia DO Emergency Provider Active Start: October 20, 2024 Dr. Anali Coello DO Admit Provider Active Start : October 20, 2024 Dr. Anali Coello DO Other Provider Active Start : October 20, 2024 Dr. Ángel Lam MD Attending Provider Active Start: October 20, 2024 Dr. Ángel Lam MD Other Provider Active Start: October 20, 2024 INFORMATION SOURCE (unrecogn ized section and content) DATE CREATED AUTHOR 10/29/[address] [facility] [facility] FOR RECORDS PERTAINING TO PATIENTS WHO [...] BE BASED ON THE PRIMARY CLINICAL RECORDS. [employer] provides no warranty or guarantee of the accuracy or completeness of information in this document.
[2024-11-17 07:43] LABS: Vitamin D,25 Hydroxy 37.9 ng/mL (30-100)
== END ==
LOC: OLS.WHLEAS 04:50
PROVIDERS: PCP Internal Medicine; Referring Provider Internal Medicine; Visit Provider Internal Medicine
DX: E55.9 Vitamin D deficiency, unspecified (principal)
CPT/HCPCS: 36415; 82306

== ENCOUNTER → 2024-12-08 | Outpatient (REF) | payer MEDICARE, MEDICAID, SELFPAY | LOC: OLS.WHLEAS 05:00 | PROVIDERS: PCP Internal Medicine; Visit Provider Internal Medicine | DX: E11.22 Type 2 diabetes mellitus with diabetic chronic kidney disease (principal); N18.9 Chronic kidney disease, unspecified | CPT/HCPCS: 36415; 83036 ==

== ENCOUNTER → 2024-12-29 | Outpatient (REF) | payer MEDICARE, MEDICAID, SELFPAY ==
--- OUTSIDE RECORDS SUMMARY | 2024-12-29 03:29 | XMS RPT_ITS | CCD ---
Author Organization [facility] Care Team Providers Care Engine Oiler Name Role Phone Rachael Newman MD Unavailable Dr. Basilio Flores Primary Care Provider Wyatt PIPE BOWLS PAINT TRIMMER, PIPE BOWLS PAINT TRIMMER-C Debora Attending Provider Dr. Basilio Anderson Primary Care Provider Dr. Basilio Flores Primary Care Provider Tickangelic PIPE BOWLS PAINT TRIMMER, PIPE BOWLS PAINT TRIMMER-C Debora Attending Provider Dr. Basilio Anderson Primary Care Provider Tickton PIPE BOWLS PAINT TRIMMER, PIPE BOWLS PAINT TRIMMER-C Debora Attending Provider Dr. Basilio Anderson Primary Care Provider Dr. Donato Sepulveda Attending Provider Tickangelic PIPE BOWLS PAINT TRIMMER, PIPE BOWLS PAINT TRIMMER-Hernandez Cazares Attending Provider Dr. Basilio Anderson Primary Care Provider Dr. Donato Sepulveda Attending Provider Tickangelic PIPE BOWLS PAINT TRIMMER, PIPE BOWLS PAINT TRIMMER-Hernandez Cazarse Attending Provider Dr. Basilio Anderson Primary Care Provider Tickton PIPE BOWLS PAINT TRIMMER, PIPE BOWLS PAINT TRIMMER-C Debora Attending Provider Dr. Donato Centeno Attending Provider Dr. Basilio Flores Primary Care Provider Tickton PIPE BOWLS PAINT TRIMMER, PIPE BOWLS PAINT TRIMMER-C Debora Attending Provider Dr. Donato Centeno Attending Provider Dr. Basilio Flores Primary Care Provider Tickton PIPE BOWLS PAINT TRIMMER, PIPE BOWLS PAINT TRIMMER-C Debora Attending Provider Dr. Basilio Anderson Primary Care Provider Tickangelic PIPE BOWLS PAINT TRIMMER, PIPE BOWLS PAINT TRIMMER-C Debora Attending Provider Dr. Donato Sepulveda Attending Provider Dr. Basilio Flores Primary Care Provider Tickton PIPE BOWLS PAINT TRIMMER, PIPE BOWLS PAINT TRIMMER-C Debora Attending Provider Dr. Donato Sepulveda Attending Provider Dr. Basilio Flores MD Primary Care Provider Donato Sepulveda MD Attending Provider Unavailyifan Sepulveda MD, Dr. Sewell Attending Provider Wyatt PIPE BOWLS PAINT TRIMMER-C, Debora Attending Provider Donato Sepulveda MD Referring Provider Dr. Basilio Owens MD Primary Care Provider Donato Sepulveda MD Attending Provider UnavailDr. Armando Elizabeth MD Attending Provider Dr. Armando Rich MD Referring Provider Dr. Donato Sepulveda MD Primary Care Provider Wyatt PIPE BOWLS PAINT TRIMMER-C, Debora Other Provider Dr. Basilio Flores MD Primary Care Provider Donato Sepulveda MD Attending Provider Unavaila keli Schneider PIPE BOWLS PAINT TRIMMER-C, Debora Attending Provider Derick HILARIO, Dr. Sewell Attending Provider Dr. Donato Sepulveda MD Primary Care Provider Dr. Basilio Flores MD Primary Care Provider Donato Sepulveda MD Attending Provider Dr. Basilio Owens MD Primary Care Provider Donato Sepulveda MD Attending Provider UnavailDr. Zoltan Davidson DO Emergency Provider Dr. Anali Coello DO Admit Provider Mode BAUGH, Dr. Briones Attending Provider Dr. Anali Coello DO Other Provider Genaro HILARIO, Dr. Ángel Triana Attending Provider Genaro HILARIO, Dr. Ángel Triana Other Provider Wyatt PIPE BOWLS PAINT TRIMMER-C, Debora Attending Provider Donato Sepulveda MD Attending Provider Unavailyifan Sepulveda MD, Efewongbe Referring Provider Unavailyifan Sepulveda MD, Dr. Sewell Attending Provider Wyatt PIPE BOWLS PAINT TRIMMER-C, Debora Attending Provider Basilio Flores Primary Care Unavailable Oleghe OLS, Efewongbe Attending Unavailabl e Mark Basilio Bala Primary Care Unavailable Oleghe OLS Efewongbe Attending Unavailabl e Basilio Flores Primary Care Unavailable Oleghe OLS, Efewongbe Attending Unavailabl e Oleghe, Efewongbe Attending Unavailable Oleghe, Efewongbe Primary Care Unavailable Basilio Flores Primary Care Unavailable Oleghe OLS, Efewongbe Attending Unavailabl e Mark, Basilio Bala Primary Care Unavailable Oleghe OLS, Efewongbe Attending Unavailabl e Flores, Basilio K Primary Care Unavailable Oleghe OLS, Efewongbe Attending Unavailabl e Oleghe, Efewongbe Primary Care Unavailable Anali Coello Admitting Unavailable Anali Coello Consulting Unavailable Ángel Lam Attending Unavailable Armando Rich Attending Unavailable Armando Rich Referring Unavailable TickDebora atwood NP Consulting Unavailable Oleghe, Efewongbe Primary Care Unavailable Oleghe, Efewongbe Primary Care Unavailable Tickton PIPE BOWLS PAINT TRIMMERDebora Attending Unavailable Oleghe, Efewongbe Primary Care Unavailable Oleghe, Efewongbe Attending Unavailable Mark Basilio K Primary Care Unavailable Oleghe, Efewongbe Attending Unavailable Oleghe OLS, Efewongbe Attending Unavailabl e Oleghe, Efewongbe Primary Care Unavailable Oleghe, Efewongbe Primary Care Unavailable Oleghe OLS, Efewongbe Attending Unavailabl e Oleghe, Efewongbe Primary Care Unavailable Oleghe OLS, Efewongbe Referring Unavailabl e Oleghe OLS, Efewongbe Attending Unavailabl e Flores, Basilio K Primary Care Unavailable Oleghe OLS, Efewongbe Attending Unavailabl e Oleghe OLS, Efewongbe Referring Unavailabl e Flores, Basilio K Primary Care Unavailable Oleghe OLS, Efewongbe Attending Unavailabl e Flores, Basilio K Primary Care Unavailable Oleghe OLS, Efewongbe Attending Unavailabl e Flores, Basilio K Primary Care Unavailable Tickton PIPE BOWLS PAINT TRIMMER, Debora Attending Unavailable Flores, Basilio K Primary Care Unavailable Tickton PIPE BOWLS PAINT TRIMMER, Debora Attending Unavailable Oleghe, Efewongbe Attending Unavailable Flores, Basilio K Primary Care Unavailable Oleghe, Efewongbe Primary Care Unavailable Tickton PIPE BOWLS PAINT TRIMMER, Debora Attending Unavailable Oleghe, Efewongbe Primary Care Unavailable Oleghe OLS, Efewongbe Attending Unavailabl e Flores, Basilio K Primary Care Unavailable Tickton PIPE BOWLS PAINT TRIMMER, Debora Attending Unavailable Oleghe OLS, Efewongbe Attending Unavailabl e Oleghe OLS, Efewongbe Referring Unavailabl e Oleghe, Efewongbe Primary Care Unavailable Flores, Basilio K Primary Care Unavailable Tickton PIPE BOWLS PAINT TRIMMER, Debora Attending Unavailable Flores, Basilio K Primary Care Unavailable Oleghe, Efewongbe Attending Unavailable Flores, Basilio K Primary Care Unavailable Tickton PIPE BOWLS PAINT TRIMMER, Debora Attending Unavailable Oleghe, Efewongbe Attending Unavailable Flores, Basilio K Primary Care Unavailable Anali Coello Admitting Unavailable Oleghe, Efewongbe Primary Care Unavailable Anali Coello Consulting Unavailable Ángel Lam Attending Unavailable Ángel Lam Consulting Unavailable Anali Coello Attending Unavailable Flores, Basilio K Primary Care Unavailable Tickton PIPE BOWLS PAINT TRIMMER, Debora Attending Unavailable Flores, Basilio K Primary Care Unavailable Oleghe OLS, Efewongbe Attending Unavailabl e Allergies Allergy Classification Reported Allergen(s) Allergy Type Date of Onset Reaction(s) Facility (1 source) Acetaminophen / HYDROcodone Drug Allergy unknown [facility] Work Phone: (1 source) Acetaminophen / oxyCODONE Drug Allergy unknown [facility] Work Phone: (1 source) Acetaminophen / Propoxyphene Drug Allergy unknown [facility] Work Phone: (1 source) Baclofen Drug Allergy unknown [facility] Work Phone: (1 source) Carbidopa / Levodopa Drug Allergy unknown [facility] Work Phone: (1 source) Ibuprofen Drug Allergy kidney disease [facility] Work Phone: (1 source) Ketoprofen Drug Allergy unknown [facility] Work Phone: (1 source) LORazepam Drug Allergy unknown [facility] Work Phone: (1 source) metFORMIN Drug Allergy unknown [facility] Work Phone: (20 sources) Naloxone; Translations: [naloxone] Drug Allergy 018 unknown, Nausea [facility] Work Phone: (1 source) oxaprozin Drug Allergy unknown [facility] Work Phone: (1 source) rofecoxib Drug Allergy unknown [facility] Work Phone: (1 source) rosiglitazone Drug Allergy siblings had severe reactions [facility] Work Phone: (1 source) Sertraline Drug Allergy unknown [facility] Work Phone: (1 source) Simvastatin Drug Allergy unknown [facility] Work Phone: (1 source) Sulfamethoxazole / Trimethoprim Drug Allergy unknown [facility] Work Phone: (1 source) venlafaxine; Translations: [EFFEXOR] Drug Allergy 019 unknown [facility] Work Phone: (20 sources) Carbidopa Drug Allergy Nausea [facility] (20 sources) HYDROcodone; Translations: [hydrocodone bitartrate] Drug Allergy Nausea [facility] (20 sources) Ketoprofen Drug Allergy Unknown [facility] (20 sources) Levodopa Drug Allergy Nausea [facility] (20 sources) LORazepam Drug Allergy hallucination [facility] (20 sources) metFORMIN; Translations: [metformin HCl] Drug Allergy Nausea [facility] (20 sources) oxaprozin Drug Allergy Nausea [facility] (20 sources) oxyCODONE; Translations: [oxycodone HCl] Drug Allergy Nausea [facility] (20 sources) Propoxyphene; Translations: [propoxyphene HCl] Drug Allergy Nausea [facility] (20 sources) rofecoxib Drug Allergy Nausea [facility] (20 sources) rosiglitazone; Translations: [rosiglitazone maleate] Drug Allergy Nausea [facility] (20 sources) Sertraline; Translations: [sertraline HCl] Drug Allergy haullucination [facility] (20 sources) Simvastatin Drug Allergy Nausea [facility] (20 sources) Sulfamethoxazole Drug Allergy Rash [facility] (20 sources) Trimethoprim Drug Allergy Rash [facility] (20 sources) venlafaxine; Translations: [venlafaxine HCl] Drug Allergy Nausea [facility] (20 sources) NSAIDS (Non-Steroidal Anti-Inflamma; Translations: [NSAIDS (Non-Steroidal Anti-Inflamma] Propensity to adverse reactions PT UNSURE OF REACTION [facility] (1 source) Carbidopa Drug Allergy [facility] (1 source) Ketoprofen Drug Allergy [facility] (1 source) Levodopa Drug Allergy [facility] (1 source) LORazepam Drug Allergy [facility] (1 source) oxaprozin Drug Allergy [facility] (1 source) rofecoxib Drug Allergy [facility] (1 source) Simvastatin Drug Allergy [facility] (1 source) Sulfamethoxazole Drug Allergy [facility] (1 source) Trimethoprim Drug Allergy [facility] Medications Current Medications Medication Drug [...] tabs every 4 hours as needed ACETAMINOPHEN [id number] Rachael Newman MD Start: 09-20-2017 take 1 tablet by rufina twice daily Acetaminophen 325 MG tablet Active 325 mg PO TWICE A DAY September 20, 2017 2:44pm CHRONIC PAIN Start: 09-20-2017 take 650 mg by mouth [...] 6 HOURS NEEDED as needed for Pain 28 0 July 14, 2015 1:00am September 20, 2017 2:45pm Alum-Mag Hydroxide-Simeth (Advanced Antacid-Antigas) 400-400-40 mg/5 mL suspension (5 sources) Start: 10-18-2024 Alum-Mag Hydroxide-Simeth (Advanced Antacid-Antigas) 400-400-40 mg/5 mL suspension Active 15 mL PO Q4H as needed for indigestion October 18, 2024 12:00am do not exceed 12 doses in a 24 hour period cefdinir 300 mg oral capsule (4 sources) Cephalosporin Antibacterial Start: 10-20-2024 take 1 capsule by mouth twice daily Cefdinir 300 mg capsule Active 300 mg PO TWICE A DAY 6 3 0 October 20, 2024 12:00am cholecalciferol 0.05 mg oral tablet (5 sources) Vitamin D Start: 10-18-2024 Cholecalciferol (Vitamin D3) (D3 Dots) 50 mcg (2,000 unit) tablet Active 50 ug PO DAILY October 18, 2024 12:00am dapagliflozin 10 mg oral tablet (13 sources) Sodium-Glucose Cotransporter 2 Inhibitor Start: 06-05-2023 take 1 tablet by mouth once daily Dapagliflozin Propanediol (Farxiga) 10 mg tablet Active 10 mg PO DAILY June 05, 2023 1:00am On Hold: Resume on 10/26/24. Start: 06-05-2023 Dapagliflozin Propanediol (Dapagliflozin Propanediol 10 Mg Tablet) 10 mg tablet Active MG June 05, 2023 12:00am Dextran 70-Hypromellose (Genteal Tears Mild) 0.1-0.3 % drops (5 sources) Start: 10-18-2024 take 0.1-0.3 drop(s) into [...] 16, 2019 12:00am June 08, 2023 9:23am DM DULoxetine 30 mg delayed release oral capsule (12 sources) Serotonin and Norepinephrine Reuptake Inhibitor Start: 08-24-2024 End: 10-18-2024 take 1 capsule by mouth once daily Duloxetine 30 mg capsule,delayed release(DR/EC) Active 30 mg PO DAILY October 19, 2024 12:00am depression furosemide 20 mg oral tablet (14 sources) Loop Diuretic Start: 06-05-2023 take 1 tablet by mouth once daily Furosemide 20 mg tablet Active 20 mg PO DAILY June 05, 2023 1:00am Start: 06-05-2023 Furosemide Act alonso MG June 05, 2023 12:00am Start: 03-16-2019 FUROSEMIDE TAB S takes 20mg at night and 40mg twice daily FUROSEMIDE TABS [id number] Rachael Newman MD glucagon (rdna) 1 mg injection (12 sources) Antihypoglycemic Agent Start: 06-08-2023 Glucago n (Glucagon Emergency Kit (Human)) 1 mg recon soln Active 1 mg IM NEEDED June 08, 2023 1:00am 3 ml insulin glargine 100 unt/ml pen injector (20 sources) Insulin Analog Start: 10-20-2024 Insulin Glargi ne (Lantus Solostar U-100 Insulin) 100 unit/mL (3 mL) insulin pen Active 10 U SC DAILY 0 1 0 October 20, 2024 11:14am Start: 06-08-2023 End: [...] takes 46 units twice daily INSULIN GLARGINE [id number] Rachael Newman MD Start: 04-06-2015 End: 09-26-2017 Insulin Glargine 100 UNIT/ML solution Discontinued 76 U SC AT BEDTIME April 06, 2015 1:00am September 26, 2017 3:18pm lidocaine 0.04 mg/mg medicated patch (16 sources) Antiarrhythmic, Amide Local Anesthetic Start: 10-19-2024 [...] 12 hrs linaclotide 0.29 mg oral capsule (13 sources) Guanylate Cyclase-C Agonist Start: 06-05-2023 take 1 capsule by mouth once daily Linaclotide (Linzess) 290 mcg capsule Active 290 ug PO DAILY June 05, 2023 1:00am metFORMIN hydrochloride 1000 mg oral tablet (18 sources) Biguanide Start: 10-18-2024 take 1 tablet [...] 12:00am ondansetron 4 mg disintegrating oral tablet (5 sources) Serotonin-3 Receptor Antagonist Start: 10-18-2024 take 1 tablet by mouth every six hours as needed for nausea and vomiting Ondansetron 4 mg tablet,disintegrating Active 4 mg PO EVERY 6 HOURS as needed for nausea and vomiting October 18, 2024 12:00am oxyCODONE hydrochloride 5 mg oral tablet (20 sources) Opioid Agonist Start: 11-30-2024 take 1 tablet by mouth twice daily Oxycodone 5 mg tablet Active 5 mg PO TWICE A DAY 60 30 0 November 30, 2024 December 29, 2024 12:00am Chronic pain Other chronic pain pain Start: 08-05-2024 End: 11-28-2024 take 1 tablet by mouth twice daily Oxycodone 5 mg tablet Discontinued 5 mg PO TWICE A DAY 60 30 0 October 29, 2024 November 27, 2024 12:00am November 28, 2024 12:10am Chronic pain Other chronic pain pain Start: 05-04-2024 End: 07-04-2024 take 1 tablet by mouth twice daily Oxycodone 5 mg tablet Discontinued 5 mg PO TWICE A DAY 60 30 0 June 04, 2024 July 03, 2024 1:00am July 04, 2024 1:22am Pain in both knees Pain in right knee Pain in left knee pain Start: 07-11-2023 End: 08-10-2023 take 1 tablet by mouth twice daily Oxycodone 5 mg tablet Discontinued 5 mg PO .twice daily 60 30 0 July 11, 2023 August 09, 2023 12:00am August 10, 2023 12:14am Chronic pain Other chronic pain Start: 06-05-2023 End: 07-11-2023 take 1 tablet by mouth every twelve hours Oxycodone 5 mg tablet Discontinued 5 mg PO Q12H June 05, 2023 1:00am July 11, 2023 5:24pm Start: 06-05-2023 Oxycodone Acti ve MG June 05, 2023 12:00am Start: 01-15-2023 End: 02-04-2023 take 1 tablet by mouth once daily Oxycodone 5 mg tablet Discontinued 5 mg PO DAILY 20 20 0 January 15, 2023 February 03, 2023 12:00am February 04, 2023 12:04am Chronic pain Other chronic pain One tab daily at noon. Start: 01-15-2023 End: 02-04-2023 take 1 tablet by mouth twice daily Oxycodone 10 mg tablet Discontinued 10 mg PO TWICE A DAY 40 20 0 January 15, 2023 February 03, 2023 12:00am February 04, 2023 12:04am Chronic pain Other chronic pain pain Start: 06-11-2022 End: 07-01-2022 take 1 tablet by mouth every four hours as needed for pain Oxycodone 10 mg tablet Discontinued 10 mg PO Q4H as needed for pain 90 20 0 June 11, 2022 June 30, 2022 1:00am July 01, 2022 1:05am Chronic pain Other chronic pain Start: 12-16-2019 End: 01-15-2023 take 1 tablet by mouth three times daily Oxycodone 10 mg tablet Discontinued 10 mg PO THREE TIMES A DAY 90 7 0 June 11, 2022 January 15, 2023 5:56am Pain in both knees Arthritis Chronic pain Pain in right knee Pain in left knee Unspecified osteoarthritis, unspecified site Other chronic pain PAIN Start: 03-16-2019 OXYCODONE HCL 10 MG TABS takes one tab three times daily as needed OXYCODONE HCL [id number] Rachael Newman MD Start: 07-14-2015 End: 09-20-2017 take 5-10 mg by mouth every four hours as needed for pain Oxycodone 5 MG tablet Discontinued 5 - 10 mg PO EVERY 4 HOURS NEEDED as needed for Pain 60 0 July 14, 2015 1:00am September 20, 2017 2:45pm Start: 04-30-2015 End: 07-14-2015 take 2 tablets by mouth every three hours as needed for pain Oxycodone 5 MG tablet Discontinued 10 mg PO Q3H as needed for Pain 60 0 April 30, 2015 1:00am July 14, 2015 4:25pm FOR BREAKTHROUGH PAIN Start: 04-30-2015 End: 07-14-2015 take 10 mg by mouth every three hours for pain Oxycodone Discontinued 10 MG PO Q3H 60 April 30, 2015 1:00am July 14, 2015 4:25pm FOR BREAKTHROUGH PAIN polyethylene glycol 3350 85787 mg powder for oral solution (17 sources) Osmotic Laxative Start: 10-18-2024 Polyethylene Glycol 3350 (Clearlax) 17 gram/dose powder Active 17 g PO EVERY OTHER DAY October 18, 2024 12:00am Start: 06-08-2023 End: 10-18-2024 Polyethylene Glycol 3350 (Cl earlax) 17 gram/dose powder Discontinued 17 g PO DAILY as needed for constipation June 08, 2023 1:00am October 18, 2024 6:08pm microencapsulated potassium chloride 20 meq extended release oral tablet (13 sources) Start: 06-05-2023 take 2 tablets by [...] as directed prior to dental procedures AMOXICILLIN [id number] Rachael Newman MD aspirin 325 mg oral tablet (20 sources) Platelet Aggregation Inhibitor, Nonsteroidal Anti-inflammatory Drug Start: 04-30-2015 End: 07-14-2015 take 1 tablet by mouth twice daily at mealtime Aspirin 325 MG tablet Discontinued 325 mg PO TWICE DAILY WITH MEALS 26 0 April 30, 2015 1:00am July 14, 2015 4:24pm atorvastatin 10 mg oral tablet (20 sources) HMG-CoA Reductase Inhibitor Start: 12-16-2019 End: 06-08-2023 take 1 tablet by mouth at bedtime Atorvastatin 10 MG tablet Discontinued 10 mg PO AT BEDTIME December 16, 2019 12:00am June 08, 2023 9:23am CHOLESTEROL Start: 03-16-2019 LIPITOR 40 MG TABS takes one tab once daily ATORVASTATIN CALCIUM [id number] Rachael Newman MD bacillus coagulans [id number] unt / inulin 250 mg oral capsule (20 sources) Start: 12-16-2019 End: 06-08-2023 take 1 capsule by mouth once daily Bacillus Coagulans-Inulin 1 EACH capsule Discontinued 1 NMA PO DAILY December 16, 2019 12:00am June 08, 2023 9:23am [facility] Start: 12-16-2019 End: 06-08-2023 take 1 capsule by mouth once daily Bacillus Coagulans-Inulin Discontinued 1 CAP PO DAILY December 16, 2019 12:00am June 08, 2023 9:23am bumetanide 2 mg oral tablet (20 sources) Loop Diuretic Start: 12-18-2019 End: 06-08-2023 take 1 tablet by mouth once daily Bumetanide 2 MG tablet Discontinued 2 mg PO DAILY 1 0 December 18, 2019 8:36am June 08, 2023 9:23am FLUID Start: 12-16-2019 End: 12-18-2019 take 1 tablet by mouth twice daily Bumetanide 2 MG tablet Discontinued 2 mg PO TWICE A DAY December 16, 2019 12:00am December 18, 2019 8:36am FLUID calcitriol 0.0005 mg oral capsule (20 sources) Vitamin D3 Analog Start: 12-16-2019 End: 06-08-2023 take 1 capsule by mouth once daily Calcitriol 0.5 MCG capsule Discontinued 0.5 ug PO DAILY December 16, 2019 12:00am June 08, 2023 9:23am SUPPLEMENT cefTRIAXone 2000 mg injection (20 sources) Cephalosporin Antibacterial Start: 04-27-2015 End: 07-14-2015 Ceftriaxone In Dextrose,Iso-Os 2 GM/50 ML Bag Discontinued 2 g IV EVERY 24 HOURS 39 0 April 27, 2015 1:00am July 14, 2015 4:24pm diphenhydrAMINE hydrochloride 25 mg oral tablet (2 sources) Histamine-1 Receptor Antagonist Start: 03-16-2019 BANOPHEN 25 MG TABS takes one tab daily DIPHENHYDRAMINE HCL [id number] Rachael Newman MD Start: 03-16-2019 BENADRYL ALLER GY 25 MG CAPS takes one tab once daily DIPHENHYDRAMINE HCL [id number] Rachael Newman MD doxepin hydrochloride 10 mg oral capsule (1 source) Tricyclic Antidepressant Start: 03-16-2019 DOXEPIN HCL 10 MG CAPS takes two tabs daily DOXEPIN HCL [id number] Rachael Newamn MD famotidine 20 mg oral tablet (20 sources) Histamine-2 Receptor Antagonist Start: 12-16-2019 End: 06-08-2023 take 1 tablet by mouth at bedtime Famotidine 20 MG tablet Discontinued 20 mg PO AT BEDTIME December 16, 2019 12:00am June 08, 2023 9:23am GERD gabapentin 100 mg oral capsule (20 sources) Anti-epileptic Agent Start: 12-16-2019 End: 06-08-2023 take 2 capsules by mouth at bedtime Gabapentin 100 MG capsule Discontinued 200 mg PO AT BEDTIME December 16, 2019 12:00am June 08, 2023 9:23am NERVE PAIN Start: 12-16-2019 End: 06-08-2023 take 200 mg by mouth at bedtime Gabapentin Discontinue d 200 MG PO AT BEDTIME December 16, 2019 12:00am June 08, 2023 9:23am Start: 03-16-2019 GABAPENTIN 300 MG CAPS takes one tab once daily GABAPENTIN [id number] Rachael Newman MD Insulin Glargine 100 UNIT/ML solution (10 sources) Start: 12-16-2019 End: 08-24-2024 Insulin Glargine 100 UNIT/ML solution Discontinued 42 U SC EVERY EVENING December 16, 2019 12:00am August 24, 2024 8:45am DM Start: 12-16-2019 End: 08-24-2024 Insulin Glargine 100 [...] 16, 2019 12:00am June 08, 2023 9:23am DM Start: 12-16-2019 End: 06-08-2023 inject 10 [IU] by subcutaneous injection once daily Insulin Aspart U-100 100 UNITS/ML insulin pen Discontinued 10 U subcut DAILY@0900 December 16, 2019 12:00am June 08, 2023 9:23am DM Start: 12-16-2019 End: 06-08-2023 Insulin Aspart U-100 100 UNI TS/ML insulin pen Discontinued 0 U subcut 3 TIMES DAILY WITH MEALS December 16, 2019 12:00am June 08, 2023 9:23am DM Please contact the information source for Protocol details. Start: 12-16-2019 End: 06-08-2023 inject 10 [IU] by subcutaneous injection once daily Insulin Aspart U-100 Discontinued 10 UNITS subcut DAILY@0900 December 16, 2019 12:00am June 08, 2023 9:23am Start: 03-16-2019 NOVOLOG 100 UN IT/ML SOLN sliding scale three times daily INSULIN ASPART [id number] Rachael Newman MD Start: 04-25-2015 End: 09-26-2017 [...] 16, 2019 12:00am December 18, 2019 8:42am BP Start: 03-16-2019 LISINOPRIL 40 MG TABS takes one tab once daily LISINOPRIL [id number] Rachael Newman MD melatonin 3 mg oral tablet (20 sources) Start: 12-16-2019 End: 06-08-2023 take 1 tablet by mouth at bedtime Melatonin 3 MG tablet Discontinued 3 mg PO AT BEDTIME December 16, 2019 12:00am June 08, 2023 9:23am SLEEP Start: 03-16-2019 MELATONIN 10 M G TABS takes one tab once daily MELATONIN [id number] Rachael Newman MD meloxicam 7.5 mg oral [...] 16, 2019 12:00am June 08, 2023 9:23am DEPRESSION morphine sulfate 15 mg extended release oral tablet (20 sources) Opioid Agonist Start: 07-14-2015 End: 09-20-2017 take 3 tablets by mouth three times daily Morphine 15 MG tablet Discontinued 45 mg PO THREE TIMES A DAY 60 0 July 14, 2015 1:00am September 20, 2017 [...] CPDR takes one tab once daily OMEPRAZOLE [id number] Rachael Newman MD Polyethylene Glycol 400 (Dry Eye Relief (Peg 400)) 1 % drops (12 sources) Start: 06-08-2023 End: 10-18-2024 take 1 [...] 12:00am promethazine hydrochloride 12.5 mg oral tablet (12 sources) Phenothiazine Start: 06-08-2023 End: 10-18-2024 take [...] takes one tab once daily RANITIDINE HCL [id number] Rachael Newman MD rOPINIRole 0.5 mg oral [...] 16, 2019 12:00am June 08, 2023 9:23am RLS tiZANidine 2 mg oral capsule (20 sources) [...] venlafaxine 75 mg extended release oral capsule (13 sources) Serotonin and Norepinephrine Reuptake Inhibitor Start: [...] encounter] 12-16-2019 Episodic Diabetes mellitus with complications (16 sources) Hypoglycemia due to diabetes mellitus; Translations: [Type 2 diabetes mellitus with hypoglycemia without coma] Onset: 10-09-2024 10-18-2024 Chronic Diabetes mellitus without complication (20 sources) Type 2 diabetes mellitus; Translations: [Type 2 diabetes mellitus without complications] 12-16-2019 Chronic Diseases of white blood cells (5 sources) Leukocytosis; Translations: [Elevated white blood cell count, unspecified] 10-18-2024 Chronic Disorders of lipid metabolism (20 sources) Hyperlipidemia; Translations: [Hyperlipidemia, unspecified] 12-16-2019 Chronic E Codes: Fall (20 sources) Fall; Translations: [Unspecified fall, initial encounter] Onset: 10-26-2024 06-16-2023 Episodic Esophageal disorders (20 sources) Gastroesophageal reflux disease; Translations: [Gastro-esophageal reflux disease without esophagitis] 12-16-2019 Chronic Essential hypertension (20 sources) Hypertensive disorder; Translations: [Essential (primary) hypertension] 12-16-2019 Chronic Fluid and electrolyte disorders (20 sources) Hyperkalemia; Translations: [Hyperkalemia] 12-16-2019 Episodic Genitourinary symptoms and ill-defined conditions (5 sources) Abnormal urinalysis; Translations: [Unspecified abnormal findings in urine] 10-18-2024 Episodic Nutritional deficiencies (2 sources) Vitamin D deficiency, unspecified; Translations: [Vitamin D deficiency, unspecified] Onset: 10-02-2024 Chronic Open wounds of extremities (11 sources) Tear of skin; Translations: [Laceration without foreign body of unspecified forearm, initial encounter] Onset: 10-26-2024 10-18-2024 Episodic Open wounds of head; neck; and trunk (13 sources) Laceration of forehead; Translations: [Laceration without foreign body of other part of head, initial encounter] 06-05-2023 Episodic Osteoarthritis (1 source) Unilateral primary osteoarthritis, right knee; Translations: [Unilateral primary osteoarthritis, right knee] Onset: 08-27-2024 Chronic Other injuries and conditions due to external causes (13 sources) Closed injury of head; Translations: [Unspecified injury of head, initial encounter] 06-05-2023 Episodic Other nervous system disorders (20 sources) Chronic pain; Translations: [Other chronic pain] 12-18-2019 Chronic Other nervous system disorders (1 source) Chronic pain syndrome; Translations: [Chronic pain syndrome] Onset: 05-08-2024 Chronic Other non-traumatic joint disorders (10 sources) Pain in right knee; Translations: [Pain in both knees] 05-04-2024 Episodic Parkinson`s disease (20 sources) Parkinson's disease; Translations: [Parkinson's disease] 12-16-2019 Chronic Parkinson`s disease (2 sources) Parkinson`s disease; Translations: [Parkinson's disease without dyskinesia, without mention of fluctuations] Onset: 10-09-2024 Spondylosis; intervertebral disc disorders; other back problems (20 sources) Cervical spondylosis; Translations: [Lumbosacral spondylosis without myelopathy] Onset: 03-16-2019 03-16-2019 Chronic Superficial injury; contusion (20 sources) Contusion of upper limb; Translations: [Contusion of unspecified upper arm, initial encounter] Onset: 10-26-2024 06-16-2023 Episodic Urinary tract infections (10 sources) Acute urinary tract infection; Translations: [Urinary [...] Test Name Value Interpretation Reference Range Facility Hemoglobin A1c percentageOrd ered By: Donato Sepulveda on 12-08-2024 HbA1c (Bld) [Mass fraction] 10.2 % High <5.7 [facility] Comment on above: Normal < 5.7 % Predi abetic 5.7 - 6.4 % Diabetic >or= 6.5 % Please note range changes. Culture, Blood (WB)on 2024 CUB Blood cultures x2, from two different sites No growth in 5 days. Normal [facility] Comment on above: Performed By: #### L 501.080 #### [facility] [address] [place], [address] Bedside Glucoseon 10-20-2024 FINGERSTICK GLU 200 mg/dL High [address] [place] [address] Comment on above: Result Comment: JEWELS GEMENT OF PATIENT CARE PER NURSING PROTOCOL Performed By: #### L 501.080 #### [facility] [address] [place], [address] FINGERSTICK GLU 296 mg/dL [address] Comment on above: Result Comment: JEWELS GEMENT OF PATIENT CARE PER NURSING PROTOCOL Performed By: #### L 501.080 #### [facility] [address] [place], [address] FINGERSTICK GLU 154 mg/dL [address] Comment on above: Result Comment: JEWELS GEMENT OF PATIENT CARE PER NURSING PROTOCOL Performed By: #### L 501.080 #### [facility] [address] [place], [address] Glucose measurement at bedsi deOrdered By: Ángel Lam on 10-20-2024 Glucose [Mass/Vol] 200 mg/dL High [address] [place] [address] Comment on above: MANAGEMENT OF PATIEN T CARE PER NURSING PROTOCOL Urine Cultureon 10-20-2024 URC Escherichia coli [place] Count 50,000-80,000 Escherichia coli: REACTION Ampicillin Islt [...] TMP SMX Islt BRANDEE <=20 S Normal [facility] Comment on above: Performed By: #### L 501.080 #### [facility] [address] [place], [place], [id number] Absolute lymphocyte countOrd ered By: Anali Coello on 10-19-2024 Lymphocytes Auto (Unsp spec) [#/Vol] 1.48 10*3/uL 0.83-4.51 [facility] Absolute neutrophil countOrd ered By: Anali Coello on 10-19-2024 Neutrophils (Bld) [#/Vol] 4.8 10*3/uL 2.0-7.7 [facility] Anion gap in Serum or Plasma Ordered By: Anali Coello on 10-19-2024 Anion gap [Moles/Vol] 10 mmol/L 5-15 [facility] Automated lymphocyte count a s percentage of total leukocytesOrdered By: Anali Coello on 10-19-2024 Lymphocytes/100 WBC Auto (Unsp spec) 21.5 % 19-41 [facility] BUN/creatinine ratioOrdered By: Anali Coello on 10-19-2024 Urea nitrogen/Creatinine [Mass ratio] 11.3 mg/mg 10-20 [facility] Basophil percentageOrdered B y: Anali Coello on 10-19-2024 Basophils/100 WBC (Bld) 0.3 % 0-1 [facility] Bedside Glucoseon 10-19-2024 FINGERSTICK GLU 313 mg/dL High 74-106 [facility] Comment on above: Result Comment: JEWELS RAJPUT OF PATIENT CARE PER NURSING PROTOCOL Performed By: #### L 501.080 #### [facility] [address] [place], [place], [id number] FINGERSTICK GLU 291 mg/dL High 74-106 [facility] Comment on above: Result Comment: JEWELS GEMENT OF PATIENT CARE PER NURSING PROTOCOL Performed By: #### L 501.080 #### [facility] [address] [place], [address] FINGERSTICK GLU 220 mg/dL High [facility]106 [facility] Comment on above: Result Comment: JEWELS GEMENT OF PATIENT CARE PER NURSING PROTOCOL Performed By: #### L 501.080 #### [facility] [address] [place], [address] FINGERSTICK GLU 132 mg/dL High [address] [place] [address] Comment on above: Result Comment: JEWELS GEMENT OF PATIENT CARE PER NURSING PROTOCOL Performed By: #### L 501.080 #### [facility] [address] [place], [address] FINGERSTICK GLU 112 mg/dL High [address] [place] [address] Comment on above: Result Comment: JEWELS GEMENT OF PATIENT CARE PER NURSING PROTOCOL Performed By: #### L 501.080 #### [facility] [address] [place], [address] FINGERSTICK GLU 177 mg/dL High [address] [place] [address] Comment on above: Result Comment: JEWELS GEMENT OF PATIENT CARE PER NURSING PROTOCOL Performed By: #### L 501.080 #### [facility] [address] [place], [address] FINGERSTICK GLU 170 mg/dL High [address] [place] [address] Comment on above: Result Comment: JEWELS GEMENT OF PATIENT CARE PER NURSING PROTOCOL Performed By: #### L 501.080 #### [facility] [address] [place], [address] FINGERSTICK GLU 135 mg/dL High [address] [place] [address] Comment on above: Result Comment: JEWELS GEMENT OF PATIENT CARE PER NURSING PROTOCOL Performed By: #### L 501.080 #### [facility] [address] [place], [address] Bilirubin, totalOrdered By: Anali Coello on 10-19-2024 Bilirubin [Mass/Vol] 0.42 mg/dL 0.00-1.30 [facility] CBC W/Diff, Automatedon 10-04 Absolute Lymph 1.48 X10 3/uL Normal 0.83-4.51 [facility] Comment on above: Performed By: #### L 501.080 #### [facility] [address] [place], [address] Absolute Neut 4.8 X10 3/uL Normal 2.0-7.7 [facility] Comment on above: Performed By: #### L 501.080 #### [facility] [address] [place], [address] Basophils/100 WBC (Bld) 0.3 % Normal 0-1 [facility] Comment on above: Performed By: #### L 501.080 #### [facility] [address] [place], [address] Eosinophils/100 WBC (Bld) 0.6 % Normal 0-5 [facility] Comment on above: Performed By: #### L 501.080 #### [facility] [address] [place], [address] Erythrocyte distribution width (RBC) [Ratio] 12.9 % Normal 11.6-14.6 [facility] Comment on above: Performed By: #### L 501.080 #### [facility] [address] [place], [address] Hematocrit (Bld) [Volume fraction] 38.0 % Normal 37-47 [facility] Comment on above: Performed By: #### L 501.080 #### [facility] [address] [place], [address] Hemoglobin (Bld) [Mass/Vol] 12.4 g/dL Normal 12.0-15.0 [facility] Comment on above: Performed By: #### L 501.080 #### [facility] [address], [address] IG% 0.300 Normal 0.0-0.9 [facility] Comment on above: Result Comment: IG% - Immature Granulocytes (promyelocytes, myelocytes and metamyelocytes) > 1% indicates that a LEFT SHIFT is Present. Performed By: #### L 501.080 #### [facility] [address] [place], [address] Lymphocytes/100 WBC (Bld) 21.5 % Normal 19-41 [facility] Comment on above: Performed By: #### L 501.080 #### [facility] [address] [place], [address] MCH (RBC) [Entitic mass] 29.7 pg Normal 27.0-32.0 [facility] Comment on above: Performed By: #### L [id number] #### [facility] [address] [place], [address] MCHC (RBC) [Mass/Vol] 32.6 g/dL Normal 32-36 [facility] Comment on above: Performed By: #### L 501.080 #### [facility] [address] [place], [address] MCV (RBC) [Entitic vol] 90.9 fL Normal 81-99 [facility] Comment on above: Performed By: #### L 501.080 #### [facility] [address] [place], [address] Monocytes/100 WBC (Bld) 7.3 % Normal 0-10 [facility] Comment on above: Performed By: #### L 501.080 #### [facility] [address] [place], [address] Neutrophils/100 WBC (Bld) 70.0 % Normal 47-70 [facility] Comment on above: Performed By: #### L 501.080 #### [facility] [address] [place], [address] Nucleated RBC (Bld) [#/Vol] 0 10*3/uL Normal 0-5 [facility] Comment on above: Performed By: #### L 501.080 #### [facility] [address] [place], [address] Platelet mean volume (Bld) [Entitic vol] 9.4 fL Normal 6.2-12.0 [facility] Comment on above: Performed By: #### L 501.080 #### [facility] [address] [place], [address] Platelets (Bld) [#/Vol] 181 10*3/uL Normal 150-450 [facility] Comment on above: Performed By: #### L 501.080 #### [facility] [address] [place], [address] RBC (Bld) [#/Vol] 4.18 10*6/uL Low 4.2-5.4 [facility] Comment on above: Performed By: #### L 501.080 #### [facility] [address] [place], [address] RDW SD 42.5 fl Normal 35.1-43.9 [facility] Comment on above: Performed By: #### L 501.080 #### [facility] [address] [place], [address] WBC (Bld) [#/Vol] 6.9 10*3/uL Normal 4.4-11.0 [facility] Comment on above: Performed By: #### L 501.080 #### [facility] [address] [place], [address] Carbon dioxide, total [Moles /volume] in Central venous bloodOrdered By: Anali Coello on 10-19-2024 CO2 [Moles/Vol] 23.7 mmol/L 21.0-32.0 [facility] Chloride assayOrdered By: Medina Coello on 10-19-2024 Chloride [Moles/Vol] 103 mmol/L 98-108 [facility] Comprehensive Metabolic Prof ilon 10-19-2024 Albumin [Mass/Vol] 3.6 g/dL Normal 3.4-4.8 [facility] Comment on above: Performed By: #### L 501.080 #### [facility] [address] [place], [address] Albumin/Globulin [Mass ratio] 1.5 {ratio} Normal 0.9-2.4 [facility] Comment on above: Performed By: #### L 501.080 #### [facility] [address] [place], [address] ALK PHOS 44 U/L Normal 35-104 [facility] Comment on above: Performed By: #### L 501.080 #### [facility] [address] [place], [address] ALT [Catalytic activity/Vol] 9 U/L Normal <=34 [facility] Comment on above: Performed By: #### L 501.080 #### [facility] [address] [place], [address] AST [Catalytic activity/Vol] 24 U/L Normal <=31 [facility] Comment on above: Performed By: #### L 501.080 #### [facility] [address] [place], [address] Bilirubin [Mass/Vol] 0.42 mg/dL Normal 0.00-1.30 [facility] Comment on above: Performed By: #### L 501.080 #### [facility] [address] [place], [address] BUN/CRE 11.3 RATIO Normal 10-20 [facility] Comment on above: Performed By: #### L 501.080 #### [facility] [address] [place], [address] Calcium [Mass/Vol] 8.7 mg/dL Normal 7.6-11.0 [facility] Comment on above: Performed By: #### L 501.080 #### [facility] [address] [place], [address] Chloride [Moles/Vol] 103 mmol/L Normal 98-108 [facility] Comment on above: Performed By: #### L 501.080 #### [facility] [address] [place], [address] CO2 [Moles/Vol] 23.7 mmol/L Normal 21.0-32.0 [facility] Comment on above: Performed By: #### L 501.080 #### [facility] [address] [place], [address] Creatinine [Mass/Vol] 0.55 mg/dL Low 0.70-1.20 [facility] Comment on above: Performed By: #### L 501.080 #### [facility] [address] [place], [address] ECRCL 45.71 ml/min Low 50-250 [facility] Comment on above: Performed By: #### L 501.080 #### [facility] [address] [place], [address] GAP 10 Normal 5-15 [facility] Comment on above: Performed By: #### L 501.080 #### [facility] [address] [place], [address] GFR/1.73 sq M.predicted among non-blacks MDRD (S/P/Bld) [Vol rate/Area] 92 mL/min/{1.73_m2} Normal >60 [facility] Comment on above: Result Comment: mL/m in/1.73m2 CKD-EPI Creatinine Equation (2020) Performed By: #### L 501.080 #### [facility] [address] [place], [address] Globulin (S) [Mass/Vol] 2.4 g/dL Normal 2.2-4.2 [facility] Comment on above: Performed By: #### L 501.080 #### [facility] [address] [place], [address] Glucose [Mass/Vol] 132 mg/dL High 70-99 [facility] Comment on above: Performed By: #### L 501.080 #### [facility] [address] [place], [address] Potassium [Moles/Vol] 4.6 mmol/L Normal 3.3-5.1 [facility] Comment on above: Performed By: #### L 501.080 #### [facility] [address] [place], [address] Sodium [Moles/Vol] 136 mmol/L Normal 133-145 [facility] Comment on above: Performed By: #### L 501.080 #### [facility] [address] [place], [address] T PROT 6.0 g/dL Normal 5.9-8.4 [facility] Comment on above: Performed By: #### L 501.080 #### [facility] [address] [place], [address] Urea nitrogen [Mass/Vol] 6 mg/dL Normal 4-19 [facility] Comment on above: Performed By: #### L 501.080 #### [facility] [address] [place], [address] Eosinophil percentageOrdered By: Anali Coello on 10-19-2024 Eosinophils/100 WBC (Bld) 0.6 % 0-5 [facility] Erythrocyte distribution wid th ratioOrdered By: Anali Coello on 10-19-2024 Erythrocyte distribution width (RBC) [Ratio] 12.9 % 11.6-14.6 [facility] Erythrocyte distribution wid th standard deviationOrdered By: Anali Coello on 10-19-2024 Erythrocyte distribution width (RBC) [Ratio] 42.5 fl 35.1-43.9 [facility] Glomerular filtration rate ( GFR) estimation/1.73 sq m using serum, plasma, or whole bOrdered By: Anali Coello on 10-19-2024 GFR/1.73 sq M.predicted among non-blacks MDRD (S/P/Bld) [Vol rate/Area] 92 mL/min/{1.73_m2} >60 [facility] Comment on above: mL/min/1.73m2 CKD-EP I Creatinine Equation (2020) Hematocrit Auto (Bld) [Volum e fraction]Ordered By: Anali Coello on 10-19-2024 Hematocrit (Bld) [Volume fraction] 38.0 % 37-47 [facility] Hemoglobin measurementOrdere d By: Anali Coello on 10-19-2024 Hemoglobin (Bld) [Mass/Vol] 12.4 g/dL 12.0-15.0 [facility] Immature granulocytes/100 WB C Auto (Bld)Ordered By: Anali Coello on 10-19-2024 Immature granulocytes/100 WBC (Bld) 0.300 % 0.0-0.9 [facility] Comment on above: IG% - Immature Granu locytes (promyelocytes, myelocytes and metamyelocytes) > 1% indicates that a LEFT SHIFT is Present. Laboratory - Chemistry and C hemistry - challengeOrdered By: Anali Coello on 10-19-2024 AST [Catalytic activity/Vol] 24 U/L <32 [facility] Lactic Acidon 10-19-2024 Lactate [Moles/Vol] 1.4 mmol/L Normal 0.0-2.0 [facility] Comment on above: Performed By: #### L 501.080 #### [facility] [address] [facility] [place], [place], [address] Lactic acid measurementOrder ed By: Zoltan Garcia on 10-19-2024 Lactate [Moles/Vol] 1.4 mmol/L 0.0-2.0 [facility] MCV (mean corpuscular volume ) determinationOrdered By: Anali Coello on 10-19-2024 MCV (RBC) [Entitic vol] 90.9 fL 81-99 [facility] Magnesiumon 10-19-2024 Magnesium [Mass/Vol] 1.7 mg/dL Normal 1.5-2.2 [facility] Comment on above: Performed By: #### L 501.080 #### [facility] [address] [facility] [place], [place], [address] Magnesium measurement (mass/ volume)Ordered By: Anali Coello on 10-19-2024 Magnesium (Unsp spec) [Mass/Vol] 1.7 mg/dL 1.5-2.2 [facility] Mean corpuscular hemoglobin (MCH) determinationOrdered By: Anali Coello on 10-19-2024 MCH (RBC) [Entitic mass] 29.7 pg 27.0-32.0 [facility] Mean corpuscular hemoglobin concentration (MCHC) determinationOrdered By: Anali Coello on 10-19-2024 MCHC (RBC) [Mass/Vol] 32.6 g/dL 32-36 [facility] Mean platelet volume determi nationOrdered By: Anali Coello on 10-19-2024 Platelet mean volume (Bld) [Entitic vol] 9.4 fL 6.2-12.0 [facility] Monocyte percentageOrdered B y: Anali Coello on 10-19-2024 Monocytes/100 WBC (Bld) 7.3 % 0-10 [facility] Neutrophil percentageOrdered By: Anali Coello on 10-19-2024 Neutrophils/100 WBC (Bld) 70.0 % 47-70 [facility] Nucleated red blood cell per centageOrdered By: Anali Coello on 10-19-2024 Nucleated RBC/100 WBC (Bld) [Ratio] 0 % 0-5 [facility] Phosphoruson 10-19-2024 Phosphate [Mass/Vol] 2.8 mg/dL Normal 2.7-4.5 [facility] Comment on above: Performed By: #### L 501.080 #### [facility] [address] [place], [address] Platelet countOrdered By: Medina Coello on 10-19-2024 Platelets (Bld) [#/Vol] 181 10*3/uL 150-450 [facility] Potassium measurement (mass/ volume)Ordered By: Anali Coello on 10-19-2024 Potassium (Unsp spec) [Mass/Vol] 4.6 mmol/L 3.3-5.1 [facility] RBC Auto (Bld) [#/Vol]Ordere d By: Anali Coello on 10-19-2024 RBC (Bld) [#/Vol] 4.18 10*6/uL Low 4.2-5.4 [facility] Serum creatinine measurement (mass/volume)Ordered By: Anali Coello on 10-19-2024 Creatinine [Mass/Vol] 0.55 mg/dL Low 0.70-1.20 [facility] Serum globulin measurementOr dered By: Anali Coello on 10-19-2024 Globulin (S) [Mass/Vol] 2.4 g/dL 2.2-4.2 [facility] Serum glucose measurement (m ass/volume)Ordered By: Anali Coello on 10-19-2024 Glucose [Mass/Vol] 132 mg/dL High 70-99 [facility] Serum or plasma alanine rivera otransferase (ALT) measurementOrdered By: Anali Coello on 10-19-2024 ALT [Catalytic activity/Vol] 9 U/L <35 [facility] Serum or plasma albumin serge urement (mass/volume)Ordered By: Anali Coello on 10-19-2024 Albumin [Mass/Vol] 3.6 g/dL 3.4-4.8 [facility] Serum or plasma albumin/glob ulin mass ratioOrdered By: Anali Coello on 10-19-2024 Albumin/Globulin [Mass ratio] 1.5 {ratio} 0.9-2.4 [facility] Serum or plasma alkaline stephane sphatase measurementOrdered By: Anali Coello on 10-19-2024 ALP [Catalytic activity/Vol] 44 U/L 35-104 [facility] Serum or plasma calcium serge urement (mass/volume)Ordered By: Anali Coello on 10-19-2024 Calcium [Mass/Vol] 8.7 mg/dL 7.6-11.0 [facility] Serum or plasma urea nitroge n measurement (mass/volume)Ordered By: Anali Coello on 10-19-2024 Urea nitrogen [Mass/Vol] 6 mg/dL 4-19 [facility] Sodium levelOrdered By: Kayleen Coello on 10-19-2024 Sodium [Moles/Vol] 136 mmol/L 133-145 [facility] TSH DL <= 0.005 mIU/L QnOrde red By: Anali Coello on 10-19-2024 TSH Qn 1.130 uIU/mL 0.300-4.200 [facility] Thyroid Stim Hormone (TSH)on 10-19-2024 TSH 1.130 uIU/mL Normal 0.300-4.200 [facility] Comment on above: Performed By: #### L 501.080 #### [facility] [address] [place] [address]. [place], [place], [id number] Total proteinOrdered By: Connie Coello on 10-19-2024 Protein [Mass/Vol] 6.0 g/dL 5.9-8.4 [facility] White blood cell (WBC) count Ordered By: Anali Coello on 10-19-2024 WBC (Bld) [#/Vol] 6.9 10*3/uL 4.4-11.0 [facility] Absolute lymphocyte countOrd ered By: Zoltan Garcia on 10-18-2024 Lymphocytes Auto (Unsp spec) [#/Vol] 0.94 10*3/uL 0.83-4.51 [facility] Absolute neutrophil countOrd ered By: Zoltan Garcia on 10-18-2024 Neutrophils (Bld) [#/Vol] 17.9 10*3/uL High 2.0-7.7 [facility] Anion gap in Serum or Plasma Ordered By: Zoltan Penaehne on 10-18-2024 Anion gap [Moles/Vol] 17 mmol/L High 5-15 [facility] Automated lymphocyte count a s percentage of total leukocytesOrdered By: Zoltan Penaehne on 10-18-2024 Lymphocytes/100 WBC Auto (Unsp spec) 4.7 % Low 19-41 [facility] BUN/creatinine ratioOrdered By: Zoltan Penaehne on 10-18-2024 Urea nitrogen/Creatinine [Mass ratio] 17.1 mg/mg 10-20 [facility] Basophil percentageOrdered B y: Zoltan Penaehne on 10-18-2024 Basophils/100 WBC (Bld) 0.3 % 0-1 [facility] Bedside Glucoseon 10-18-2024 FINGERSTICK GLU 129 mg/dL High 74-106 [facility] Comment on above: Result Comment: JEWELS GEMENT OF PATIENT CARE PER NURSING PROTOCOL Performed By: #### L 501.080 #### [facility] [address] [facility] [address] FINGERSTICK GLU 119 mg/dL High 74-106 [facility] Comment on above: Result Comment: JEWELS GEMENT OF PATIENT CARE PER NURSING PROTOCOL Performed By: #### L 501.080 #### [facility] [address] [facility] [address] FINGERSTICK GLU 98 mg/dL Normal 74-106 [facility] Comment on above: Result Comment: JEWELS GEMENT OF PATIENT CARE PER NURSING PROTOCOL Performed By: #### L 501.080 #### [facility] [address] [facility] [address] FINGERSTICK GLU 72 mg/dL Low 74-106 [facility] Comment on above: Result Comment: JEWELS GEMENT OF PATIENT CARE PER NURSING PROTOCOL Performed By: #### L 501.080 #### [facility] [address] [place], [place], [address] FINGERSTICK GLU 82 mg/dL Normal 74-106 [facility] Comment on above: Result Comment: JEWELS RAJPUT OF PATIENT CARE PER NURSING PROTOCOL Performed By: #### L 501.080 #### [facility] [address] [place], [place], [id number] Bilirubin Test strip Ql (U)O rdered By: Zoltan Garcia on 10-18-2024 Bilirubin Ql (U) Negative Negative [facility] Bilirubin, totalOrdered By: Zoltan Garcia on 10-18-2024 Bilirubin [Mass/Vol] 0.33 mg/dL 0.00-1.30 [facility] Blood cultureOrdered By: Jackson Garcia on 10-18-2024 Bacteria identified Cx Nom (Bld) No growth in 5 days. [facility] Bacteria identified Cx Nom (Bld) No growth in 5 days. [facility] Brain/Head without Contrasto n 10-18-2024 Brain/Head without Contrast [facility] [address] [place], [place] [address] Brain/Head without Contrast MR#: [id number] Acct: [id number] Name: UJSTUS CHINCHILLA Rep #: [id number] : 1940 F 84 From: Jorge Zurita PCP: Dr. Donato Sepulveda MD Status: REG ER Study: Brain/Head without Contrast Date of Exam: 10/04 09/27 Exam# [id number] Ordering Dr: Zoltan Garcia DO PROCEDURE: BRAIN/HEAD [...] hydrocephalus or significant midline shift. There is qkdc-ca-ybwyyook chronic microvascular ischemic changes and cjku-vy-uwbpvglj parenchymal volume loss. No acute, depressed calvarial fractures. Mild anterior frontal scalp swelling. Bilateral lens surgeries. CT/Brain/Head without Contrast IMPRESSION: No acute intracranial process. Mild anterior frontal scalp swelling. No acute calvarial defect. Reading Location: [facility] CC: Dr. Zoltan Garcia DO; Dr. Donato Sepulveda MD Manager Packaging: Signed Normal [facility] CBC W/Diff, Automatedon 10-04 Absolute Lymph 0.94 X10 3/uL Normal 0.83-4.51 [facility] Comment on above: Performed By: #### L 501.080 #### [facility] [address] [place], [address] Absolute Neut 17.9 X10 3/uL High 2.0-7.7 [facility] Comment on above: Performed By: #### L 501.080 #### [facility] [address] [place], [address] Basophils/100 WBC (Bld) 0.3 % Normal 0-1 [facility] Comment on above: Performed By: #### L 501.080 #### [facility] [address] [place], [address] Eosinophils/100 WBC (Bld) 0.1 % Normal 0-5 [facility] Comment on above: Performed By: #### L 501.080 #### [facility] [address] [place], [address] Erythrocyte distribution width (RBC) [Ratio] 12.9 % Normal 11.6-14.6 [facility] Comment on above: Performed By: #### L 501.080 #### [facility] [address] [place], [address] Hematocrit (Bld) [Volume fraction] 48.0 % High 37-47 [facility] Comment on above: Performed By: #### L 501.080 #### [facility] [address] [place], [address] Hemoglobin (Bld) [Mass/Vol] 15.5 g/dL High 12.0-15.0 [facility] Comment on above: Performed By: #### L 501.080 #### [facility] [address] [place], [address] IG% 0.700 Normal 0.0-0.9 [facility] Comment on above: Result Comment: IG% - Immature Granulocytes (promyelocytes, myelocytes and metamyelocytes) > 1% indicates that a LEFT SHIFT is Present. Performed By: #### L 501.080 #### [facility] [address] [place], [address] Lymphocytes/100 WBC (Bld) 4.7 % Low 19-41 [facility] Comment on above: Performed By: #### L 501.080 #### [facility] [address] [place], [address] MCH (RBC) [Entitic mass] 29.4 pg Normal 27.0-32.0 [facility] Comment on above: Performed By: #### L 501.080 #### [facility] [address] [place], [address] MCHC (RBC) [Mass/Vol] 32.3 g/dL Normal 32-36 [facility] Comment on above: Performed By: #### L 501.080 #### [facility] [address] [place], [address] MCV (RBC) [Entitic vol] 90.9 fL Normal 81-99 [facility] Comment on above: Performed By: #### L 501.080 #### [facility] [address] [place], [address] Monocytes/100 WBC (Bld) 4.8 % Normal 0-10 [facility] Comment on above: Performed By: #### L 501.080 #### [facility] [address] [place], [address] Neutrophils/100 WBC (Bld) 89.4 % High 47-70 [facility] Comment on above: Performed By: #### L 501.080 #### [facility] [address] [place], [address] Nucleated RBC (Bld) [#/Vol] 0 10*3/uL Normal 0-5 [facility] Comment on above: Performed By: #### L 501.080 #### [facility] [address] [place], [address] Platelet mean volume (Bld) [Entitic vol] 10.2 fL Normal 6.2-12.0 [facility] Comment on above: Performed By: #### L 501.080 #### [facility] [address] [place], [address] Platelets (Bld) [#/Vol] 326 10*3/uL Normal 150-450 [facility] Comment on above: Performed By: #### L 501.080 #### [facility] [address] [place], [address] RBC (Bld) [#/Vol] 5.28 10*6/uL Normal 4.2-5.4 [facility] Comment on above: Performed By: #### L 501.080 #### [facility] [address] [place], [address] RDW SD 43.0 fl Normal 35.1-43.9 [facility] Comment on above: Performed By: #### L 501.080 #### [facility] [address] [place], [address] WBC (Bld) [#/Vol] 20.0 10*3/uL High 4.4-11.0 [facility] Comment on above: Performed By: #### L 501.080 #### [facility] [address] [place], [place], [address] Carbon dioxide, total [Moles /volume] in Central venous bloodOrdered By: Zoltan Garcia on 10-18-2024 CO2 [Moles/Vol] 24.5 mmol/L 21.0-32.0 [facility] Chloride assayOrdered By: Bin Garcia on 10-18-2024 Chloride [Moles/Vol] 102 mmol/L 98-108 [facility] Emergency Department Summary on 10-18-2024 Emergency Department Summary [facility] Medical Records Department [address] [place] [address] Emergency Department Summary 10/18/24 MR#: [id number] Acct: [id number] Name: JUSTUS CHINCHILLA Rep #: [id number] : 1940 84 From: Zoltan Garcia DO PCP: Dr. Donato Sepulveda MD Status:ADM IN Location: [address] HPI HPI - Fall History of Present [...] takes oral hypoglycemics as well as insulin. [facility] Medical History (Updated 10/18/24 @ 21:59 by [...] History (Revie (more content not included)... Normal [facility] Eosinophil percentageOrdered By: Zoltan Garcia on 10-18-2024 Eosinophils/100 WBC (Bld) 0.1 % 0-5 [facility] Erythrocyte distribution wid th ratioOrdered By: Zoltan Garcia on 10-18-2024 Erythrocyte distribution width (RBC) [Ratio] 12.9 % 11.6-14.6 [facility] Erythrocyte distribution wid th standard deviationOrdered By: Zoltan Garcia on 10-18-2024 Erythrocyte distribution width (RBC) [Ratio] 43.0 fl 35.1-43.9 [facility] Glomerular filtration rate ( GFR) estimation/1.73 sq m using serum, plasma, or whole bOrdered By: Zoltan Garcia on 10-18-2024 GFR/1.73 sq M.predicted among non-blacks MDRD (S/P/Bld) [Vol rate/Area] 88 mL/min/{1.73_m2} >60 [facility] Comment on above: mL/min/1.73m2 CKD-EP I Creatinine Equation (2020) [facility] deOrdered By: Anali Coello on 10-18-2024 Glucose [Mass/Vol] 129 mg/dL High 74-106 [facility] Comment on above: MANAGEMENT OF PATIEN T CARE PER NURSING PROTOCOL H AND P Exam - Hospitaliston 10-18-2024 H&P Exam - Hospitalist [facility] Medical Records Department [address] [place] [address] H P Exam - Hospitalist 10/18/24 2108 MR#: [id number] Acct: [id number] Name: JUSTUS CHINCHILLA Rep #: [id number] : 1940 84 From: Anali Coello DO PCP: Dr. Donato Sepulveda MD Status:ADM IN Location: [facility] [id number] HPI - General General Date of Admission: 10/18/24 Date of Service: 10/18/24 Chief Complaint: Fall/altered mental status HPI Narrative JUSTUS CHINCHILLA, is a 84 F who presented to the emergency department at [facility] on 10/18/2024 with chief complaint of head [...] nursing facility. Patient states the food is terrible. Patient unable to remember when the last [...] she was close to her baseline mentation. [facility] Medical History (Updated 10/18/24 @ 21:59 by [...] H i (more content not included)... Normal [facility] Hematocrit Auto (Bld) [Volum e fraction]Ordered By: Zoltan Garcia on 10-18-2024 Hematocrit (Bld) [Volume fraction] 48.0 % High 37-47 [facility] Hemoglobin measurementOrdere d By: Zoltan Garcia on 10-18-2024 Hemoglobin (Bld) [Mass/Vol] 15.5 g/dL High 12.0-15.0 [facility] Immature granulocytes/100 WB C Auto (Bld)Ordered By: Zoltan Garcia on 10-18-2024 Immature granulocytes/100 WBC (Bld) 0.700 % 0.0-0.9 [facility] Comment on above: IG% - Immature Granu locytes (promyelocytes, myelocytes and metamyelocytes) > 1% indicates that a LEFT SHIFT is Present. International normalized rat io (INR) calculationOrdered By: Zoltan Garcia on 10-18-2024 INR Coag (Bld) [Relative time] 1.0 {INR} [facility] Ketones Test strip Ql (U)Ord ered By: Zoltan Garcia on 10-18-2024 Ketones Ql (U) Negative Negative [facility] - Chemistry and C hemistry - challengeOrdered By: Zoltan Garcia on 10-18-2024 AST [Catalytic activity/Vol] 34 U/L High <32 [facility] Lactic Acidon 10-18-2024 Lactate [Moles/Vol] 2.8 mmol/L Invalid Interpretation Code 0.0-2.0 [facility] Comment on above: Order Comment: Y Result Comment: Crit ical Result(s) Called at: 2123 by:??REKHA LEMUS Results read back by same. Performed By: #### L 501.080 #### [facility] [address] [address] [facility] [place], [address] Lactic acid measurementOrder ed By: Zoltan Garcia on 10-18-2024 Lactate [Moles/Vol] 2.8 mmol/L High 0.0-2.0 [facility] Comment on above: Critical Result(s) C alled at: 2123 by: REKHA GARCIA TO ISAAC LEMUS Results read back by same. MCV (mean corpuscular volume ) determinationOrdered By: Zoltan Garcia on 10-18-2024 MCV (RBC) [Entitic vol] 90.9 fL 81-99 [facility] Mean corpuscular hemoglobin (MCH) determinationOrdered By: Zoltan Garcia on 10-18-2024 MCH (RBC) [Entitic mass] 29.4 pg 27.0-32.0 [facility] Mean corpuscular hemoglobin concentration (MCHC) determinationOrdered By: Zoltan Garcia on 10-18-2024 MCHC (RBC) [Mass/Vol] 32.3 g/dL 32-36 [facility] Mean platelet volume determi nationOrdered By: Zoltan Garcia on 10-18-2024 Platelet mean volume (Bld) [Entitic vol] 10.2 fL 6.2-12.0 [facility] Microscopic analysis of urin e for red blood cells (RBC)Ordered By: Zoltan Garcia on 10-18-2024 Microscopic analysis of urine for red blood cells (RBC) 0 SEEN /hpf 0-5 [facility] Monocyte percentageOrdered B y: Zoltan Garcia on 10-18-2024 Monocytes/100 WBC (Bld) 4.8 % 0-10 [facility] Mucus LM Ql (Urine sed)Order ed By: Zoltan Garcia on 10-18-2024 Mucus Ql (Urine sed) 0 SEEN /hpf [facility] Neutrophil percentageOrdered By: Zoltan Garcia on 10-18-2024 Neutrophils/100 WBC (Bld) 89.4 % High 47-70 [facility] Nitrite Test strip Ql (U)Ord ered By: Zoltan Garcia on 10-18-2024 Nitrite Ql (U) Positive High Negative [facility] Nucleated red blood cell per centageOrdered By: Zoltan Garcia on 10-18-2024 Nucleated RBC/100 WBC (Bld) [Ratio] 0 % 0-5 [facility] Platelet countOrdered By: Bin Garcia on 10-18-2024 Platelets (Bld) [#/Vol] 326 10*3/uL 150-450 [facility] Potassium measurement (mass/ volume)Ordered By: Zoltan Garcia on 10-18-2024 Potassium (Unsp spec) [Mass/Vol] 3.2 mmol/L Low 3.3-5.1 [facility] Protein Test strip Ql (U)Ord ered By: Zoltan Garcia on 10-18-2024 Protein Ql (U) 30 mg/dl High Negative [facility] Prothrombin Time w/INRon INR Coag (PPP) [Relative time] 1.0 {INR} Normal [facility] Comment on above: Performed By: #### L 501.080 #### [facility] [address] [place], [place], [address] PT Coag (PPP) [Time] 13.4 s Normal 11.7-14.9 [facility] Comment on above: Performed By: #### L 501.080 #### [facility] [address] [place], [address] Prothrombin timeOrdered By: Zoltan Garcia on 10-18-2024 PT Coag (PPP) [Time] 13.4 s 11.7-14.9 [facility] RBC Auto (Bld) [#/Vol]Ordere d By: Zoltan Garcia on 10-18-2024 RBC (Bld) [#/Vol] 5.28 10*6/uL 4.2-5.4 [facility] Serum creatinine measurement (mass/volume)Ordered By: Zoltan Garcia on 10-18-2024 Creatinine [Mass/Vol] 0.64 mg/dL Low 0.70-1.20 [facility] Serum globulin measurementOr dered By: Zoltan Garcia on 10-18-2024 Globulin (S) [Mass/Vol] 3.3 g/dL 2.2-4.2 [facility] Serum glucose measurement (m ass/volume)Ordered By: Zoltan Garcia on 10-18-2024 Glucose [Mass/Vol] 16 mg/dL Invalid Interpretation Code 70-99 [facility] Comment on above: Critical Result(s) C alled at: by: Results read back by same. Critical Result(s) Called at: 1854 by: REKHA RUSSO Results read back by same.Previous reported [...] same. Performed By: #### L 501.080 #### [facility] [address] [place], [address] Serum or plasma alanine rivera otransferase (ALT) measurementOrdered By: Zoltan Garcia on 10-18-2024 ALT [Catalytic activity/Vol] 13 U/L <35 [facility] Serum or plasma albumin serge urement (mass/volume)Ordered By: Zoltan Garcia on 10-18-2024 Albumin [Mass/Vol] 4.7 g/dL 3.4-4.8 [facility] Serum or plasma albumin/glob ulin mass ratioOrdered By: Zoltan Garcia on 10-18-2024 Albumin/Globulin [Mass ratio] 1.4 {ratio} 0.9-2.4 [facility] Serum or plasma alkaline stephane sphatase measurementOrdered By: Zoltan Garcia on 10-18-2024 ALP [Catalytic activity/Vol] 60 U/L 35-104 [facility] Serum or plasma calcium serge urement (mass/volume)Ordered By: Zoltan Garcia on 10-18-2024 Calcium [Mass/Vol] 10.0 mg/dL 7.6-11.0 [facility] Serum or plasma urea nitroge n measurement (mass/volume)Ordered By: Zoltan Garcia on 10-18-2024 Urea nitrogen [Mass/Vol] 11 mg/dL 4-19 [facility] Sodium levelOrdered By: Bebo Garcia on 10-18-2024 Sodium [Moles/Vol] 143 mmol/L 133-145 [facility] Squamous epithelial cells de tection in urine sediment by light microscopyOrdered By: Zoltan Garcia on 10-18-2024 Epithelial cells.squamous LM Ql (Urine sed) 0-5 SEEN /hpf 5-10 [facility] Total proteinOrdered By: Jackson Garcia on 10-18-2024 Protein [Mass/Vol] 8.0 g/dL 5.9-8.4 [facility] Urinalysis, Completeon 10-18 BACTERIA 4+ /hpf Normal None Seen [facility] Comment on above: Order Comment: ABEBE TER SPECIMEN Performed By: #### L 400.0001 #### [facility] [address] [place], [address] EPI,SQUAMOUS 0-5 SEEN Normal 5-10 [facility] Comment on above: Order Comment: ABEBE TER SPECIMEN Performed By: #### L [id number] #### [facility] [address] [place], [address] WBC 10-25 SEEN Normal 0-5 [facility] Comment on above: Order Comment: ABEBE TER SPECIMEN Performed By: #### L [id number] #### [facility] [address] [place], [address] Mucus Ql (Urine sed) 0 SEEN Normal [facility] Comment on above: Order Comment: ABEBE TER SPECIMEN Performed By: #### L [id number] #### [facility] [address] [place], [address] RBC 0 SEEN Normal 0-5 [facility] Comment on above: Order Comment: ABEBE TER SPECIMEN Performed By: #### L 400.0001 #### [facility] [address] [place], [address] Urine clarityOrdered By: Jackson Garcia on 10-18-2024 Clarity (U) Clear Clear [facility] Urine color determinationOrd ered By: Zoltan Garcia on 10-18-2024 Color (U) Yellow Yellow [facility] Urine cultureOrdered By: Jackson Garcia on 10-18-2024 Bacteria identified Cx Nom (U) Escherichia coli Abnormal [facility] Urine glucose detectionOrder ed By: Zoltan Garcia on 10-18-2024 Glucose Ql (U) 1000 mg/dl High Normal [facility] Urine leukocyte esterase det ection by dipstickOrdered By: Zoltan Garcia on 10-18-2024 Leukocyte esterase Test strip Ql (U) 25 /ul High Negative [facility] Urine pHOrdered By: Zoltan vela on 10-18-2024 pH (U) 6.5 [pH] 5.0 - 8.0 [facility] Urine sediment bacteria coun t by microscopy (number/high power field)Ordered By: Zoltan Garcia on 10-18-2024 Bacteria LM.HPF (Urine sed) [#/Area] 4 /[HPF] None Seen [facility] Urine specific gravity measu rementOrdered By: Zoltan Garcia on 10-18-2024 Specific gravity (U) [Rel density] 1.015 1.002-1.030 [facility] Urine urobilinogen measureme ntOrdered By: Zoltan Garcia on 10-18-2024 Urobilinogen Ql (U) Normal mg/dl Normal [facility] White blood cell (WBC) count Ordered By: Zoltan Garcia on 10-18-2024 WBC (Bld) [#/Vol] 20.0 10*3/uL High 4.4-11.0 [facility] White blood cell countOrdere d By: Zoltan Garcia on 10-18-2024 White blood cell count 10-25 SEEN /hpf 0-5 [facility] Anion gap in Serum or Plasma Ordered By: Donato Sepulveda on 10-06-2024 Anion gap [Moles/Vol] 10 mmol/L 5-15 [facility] BUN/creatinine ratioOrdered By: Donato Sepulveda on 10-06-2024 Urea nitrogen/Creatinine [Mass ratio] 21.9 mg/mg High 10-20 [facility] Bilirubin directOrdered By: Donato Sepulveda on 10-06-2024 Bilirubin.direct [Mass/Vol] 0.11 mg/dL 0.00-0.30 [facility] Bilirubin, totalOrdered By: Donato Sepulveda on 10-06-2024 Bilirubin [Mass/Vol] 0.24 mg/dL 0.00-1.30 [facility] Calculated very low density lipoprotein (VLDL) cholesterol measurementOrdered By: Donato Sepulveda on 10-06-2024 Calculated very low density lipoprotein (VLDL) cholesterol measurement 14 mg/dL 5-40 [facility] Carbon dioxide, total [Moles /volume] in Central venous bloodOrdered By: Donato Sepulveda on 10-06-2024 CO2 [Moles/Vol] 29.2 mmol/L 21.0-32.0 [facility] Chloride assayOrdered By: Livier Sepulveda on 10-06-2024 Chloride [Moles/Vol] 99 mmol/L 98-108 [facility] Erythrocyte distribution wid th ratioOrdered By: Donato Sepulveda on 10-06-2024 Erythrocyte distribution width (RBC) [Ratio] 12.8 % 11.6-14.6 [facility] Erythrocyte distribution wid th standard deviationOrdered By: Donato Sepulveda on 10-06-2024 Erythrocyte distribution width (RBC) [Ratio] 43.8 fl 35.1-43.9 [facility] Glomerular filtration rate ( GFR) estimation/1.73 sq m using serum, plasma, or whole bOrdered By: Donato Sepulveda on 10-06-2024 GFR/1.73 sq M.predicted among non-blacks MDRD (S/P/Bld) [Vol rate/Area] 79 mL/min/{1.73_m2} >60 [facility] Comment on above: mL/min/1.73m2 CKD-EP I Creatinine Equation (2020) Hematocrit Auto (Bld) [Volum e fraction]Ordered By: Donato Sepulveda on 10-06-2024 Hematocrit (Bld) [Volume fraction] 37.1 % 37-47 [facility] Hemoglobin A1c percentageOrd ered By: Donato Sepulveda on 10-06-2024 HbA1c (Bld) [Mass fraction] 9.5 % High <5.7 [facility] Comment on above: Normal < 5.7 % Predi abetic 5.7 - 6.4 % Diabetic >or= 6.5 % Please note range changes. Hemoglobin measurementOrdere d By: Donato Sepulveda on 10-06-2024 Hemoglobin (Bld) [Mass/Vol] 11.9 g/dL Low 12.0-15.0 [facility] LDL calc ser/plasOrdered By: Donato Sepulveda on 10-06-2024 Cholesterol in LDL [Mass/Vol] 92 mg/dL [facility] Comment on above: Gqyskdnuvf=353-256 m g/dL & Higher Hvqf=276 mg/dL or greater Laboratory - Chemistry and C hemistry - challengeOrdered By: Donato Sepulveda on 10-06-2024 AST [Catalytic activity/Vol] 19 U/L <32 [facility] MCV (mean corpuscular volume ) determinationOrdered By: Donato Sepulveda on 10-06-2024 MCV (RBC) [Entitic vol] 92.8 fL 81-99 [facility] Mean corpuscular hemoglobin (MCH) determinationOrdered By: Donato Sepulveda on 10-06-2024 MCH (RBC) [Entitic mass] 29.8 pg 27.0-32.0 [facility] Mean corpuscular hemoglobin concentration (MCHC) determinationOrdered By: Donato Sepulveda on 10-06-2024 MCHC (RBC) [Mass/Vol] 32.1 g/dL 32-36 [facility] Mean platelet volume determi nationOrdered By: Donato Sepulveda on 10-06-2024 Platelet mean volume (Bld) [Entitic vol] 10.8 fL 6.2-12.0 [facility] Platelet countOrdered By: Livier Sepulveda on 10-06-2024 Platelets (Bld) [#/Vol] 182 10*3/uL 150-450 [facility] Potassium measurement (mass/ volume)Ordered By: Donato Sepulveda on 10-06-2024 Potassium (Unsp spec) [Mass/Vol] 4.3 mmol/L 3.3-5.1 [facility] RBC Auto (Bld) [#/Vol]Ordere d By: Donato Sepulveda on 10-06-2024 RBC (Bld) [#/Vol] 4.00 10*6/uL Low 4.2-5.4 [facility] Screening total cholesterol/ high density lipoprotein (HDL) cholesterol ratioOrdered By: Donato Sepulveda on 10-06-2024 Cholesterol.total/Gabby sterol in HDL [Mass ratio] 2.80 {ratio} [facility] Serum creatinine measurement (mass/volume)Ordered By: Donato Sepulveda on 10-06-2024 Creatinine [Mass/Vol] 0.75 mg/dL 0.70-1.20 [facility] Serum globulin measurementOr dered By: Donato Sepulveda on 10-06-2024 Globulin (S) [Mass/Vol] 2.3 g/dL 2.2-4.2 [facility] Serum glucose measurement (m ass/volume)Ordered By: Donato Sepulveda on 10-06-2024 Glucose [Mass/Vol] 232 mg/dL High 70-99 [facility] Serum or plasma alanine rivera otransferase (ALT) measurementOrdered By: Donato Sepulveda on 10-06-2024 ALT [Catalytic activity/Vol] 8 U/L <35 [facility] Serum or plasma albumin serge urement (mass/volume)Ordered By: Donato Sepulveda on 10-06-2024 Albumin [Mass/Vol] 3.7 g/dL 3.4-4.8 [facility] Serum or plasma alkaline stephane sphatase measurementOrdered By: Donato Sepulveda on 10-06-2024 ALP [Catalytic activity/Vol] 50 U/L 35-104 [facility] Serum or plasma calcium serge urement (mass/volume)Ordered By: Donato Sepulveda on 10-06-2024 Calcium [Mass/Vol] 9.1 mg/dL 7.6-11.0 [facility] Serum or plasma cholesterol in HDL measurement (mass/volume)Ordered By: Donato Sepulveda on 10-06-2024 Cholesterol in HDL [Mass/Vol] 59 mg/dL >40 [facility] Comment on above: National Cholesterol Education Program (NCEP) guidelines:<40 mg/dL: Low HDL-cholesterol (major risk factor for CHD)>= 60 mg/dL: High HDL-cholesterol (negative risk factor for CHD)HDL-cholesterol is affected by a number of factors, e.g. smoking, exercise, hormones, sex and age. Serum or plasma cholesterol measurement (mass/volume)Ordered By: Donato Sepulveda on 10-06-2024 Cholesterol [Mass/Vol] 164 mg/dL <201 [facility] Comment on above: Cholesterol level, D esirable <200 mg/dLBorderline high cholesterol 200-239 mg/dLHigh cholesterol >=240 mg/dLRecommendations of the NCEP Adult Treatment Panel for the following risk-cutoff thresholds for the [place] population. Serum or plasma urea nitroge n measurement (mass/volume)Ordered By: Donato Sepulveda on 10-06-2024 Urea nitrogen [Mass/Vol] 16 mg/dL 4-19 [facility] Sodium levelOrdered By: Raul Sepulveda on 10-06-2024 Sodium [Moles/Vol] 138 mmol/L 133-145 [facility] Total proteinOrdered By: Sherwin Sepulveda on 10-06-2024 Protein [Mass/Vol] 6.0 g/dL 5.9-8.4 [facility] Triglycerides measurementOrd ered By: Donato Sepulveda on 10-06-2024 Triglyceride [Mass/Vol] 68 mg/dL <199 [facility] Comment on above: The drugs N-Acetylcy steine and Metamizole may falsely depress this assay. Normal range: <150 mg/dLBorderline High: 150-199 mg/dLHigh: 200-499 mg/dLVery High: >500 mg/dL White blood cell (WBC) count Ordered By: Donato Sepulveda on 10-06-2024 WBC (Bld) [#/Vol] 7.1 10*3/uL 4.4-11.0 [facility] Hemoglobin A1c percentageOrd ered By: Donato Sepulveda on 09-08-2024 HbA1c (Bld) [Mass fraction] 8.8 % High <5.7 [facility] Comment on above: Normal < 5.7 % Predi abetic 5.7 - 6.4 % Diabetic >or= 6.5 % Please note range changes. Bedside Glucoseon 08-24-2024 FINGERSTICK GLU 240 mg/dL High 74-106 [facility] Comment on above: Result Comment: JEWELS LIMONENT OF PATIENT CARE PER NURSING PROTOCOL Performed By: #### L 501.080 #### [facility] [address] [place], [place], [address] Fluoro Guided Needle Placeme nton 08-24-2024 Fluoro Guided Needle Placement [facility] [address] [place], [place] [address] Fluoro Guided Needle Placement MR#: [id number] Acct: [id number] Name: JUSTUS CHINCHILLA Rep #: [id number] : 1940 F 84 From: Tomi metz MD PCP: Dr. Donato Sepulveda MD Status: [facility] Study: Fluoro Guided Needle Placement Date of Exam: 0 08/24/24 Exam# [id number] Ordering Dr: Armando Rich MD PROCEDURE: FLUORO GUIDED NEEDLE PLACEMENT 08/24/2024 REASON FOR EXAM: RT KNEE INJECTION TECHNIQUE: Intraoperative fluoroscopic services provided for right knee injection. 5.1 seconds of fluoroscopy. 0.85 mGy. 4 images were taken. COMPARISON: None FINDINGS: Intraoperative fluoroscopic services for knee injection. RAD/Fluoro Guided Needle Placement IMPRESSION: Fluoroscopic services provided for right knee injection. Reading Location: [facility] CC: Dr. Donato Sepulveda MD; Dr. Armando Rich MD Manager Packaging: Signed Normal [facility] Glucose measurement at [facility] deOrdered By: Armando Rich on 08-24-2024 Bedside Glucose (Misc Panel) 240 mg/dL High 74-106 [facility] Comment on above: MANAGEMENT OF PATIEN T CARE PER NURSING PROTOCOL Glucose [Mass/Vol] 240 mg/dL High 74-106 [facility] Comment on above: MANAGEMENT OF PATIEN T CARE PER NURSING PROTOCOL Operative Reporton 5 Operative Report [facility] Medical Records Department [address] [place] [address] Operative Report 08/24/24 0932 MR#: [id number] Acct: [id number] Name: JUSTUS CHINCHILLA Rep #: [id number] : 1940 84 From: Armando Rich MD PCP: Dr. 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 Armando Rich MD Signed Normal [facility] Absolute lymphocyte countOrd ered By: Donato Sepulveda on 07-15-2024 Lymphocytes Auto (Unsp spec) [#/Vol] 1.27 10*3/uL 0.83-4.51 [facility] Absolute neutrophil countOrd ered By: Donato Sepulveda on 07-15-2024 Neutrophils (Bld) [#/Vol] 4.2 10*3/uL 2.0-7.7 [facility] Anion gap in Serum or Plasma Ordered By: Donato Sepulveda on 07-15-2024 Anion gap [Moles/Vol] 12 mmol/L 5-15 [facility] Automated lymphocyte count a s percentage of total leukocytesOrdered By: Donato Sepulveda on 07-15-2024 Lymphocytes/100 WBC Auto (Unsp spec) 21.1 % 19-41 [facility] BUN/creatinine ratioOrdered By: Donato Sepulveda on 07-15-2024 Urea nitrogen/Creatinine [Mass ratio] 17.5 mg/mg 10-20 [facility] Basophil percentageOrdered B y: Rauldyanchar Lombardirjnoris on 07-15-2024 Basophils/100 WBC (Bld) 0.5 % 0-1 [facility] Bilirubin Test strip Ql (U)O rdered By: Donato Sepulveda on 07-15-2024 Bilirubin Ql (U) Negative Negative [facility] Bilirubin, totalOrdered By: Donato Sepulveda on 07-15-2024 Bilirubin [Mass/Vol] 0.31 mg/dL 0.00-1.30 [facility] Carbon dioxide, total [Moles /volume] in Central venous bloodOrdered By: Donato Sepulveda on 07-15-2024 CO2 [Moles/Vol] 28.3 mmol/L 21.0-32.0 [facility] Chloride assayOrdered By: Livier stumarcela Sepulveda on 07-15-2024 Chloride [Moles/Vol] 98 mmol/L 98-108 [facility] Eosinophil percentageOrdered By: Donato Lombardirjnoris on 07-15-2024 Eosinophils/100 WBC (Bld) 1.7 % 0-5 [facility] Erythrocyte distribution wid th (RBC) [Ratio]Ordered By: Donato Sepulveda on 07-15-2024 Erythrocyte distribution width (RBC) [Entitic vol] 43.9 fL 35.1-43.9 [facility] Erythrocyte distribution wid th ratioOrdered By: Donato Sepulveda on 07-15-2024 Erythrocyte distribution width (RBC) [Ratio] 13.2 % 11.6-14.6 [facility] Erythrocyte distribution wid th standard deviationOrdered By: Donato Sepulveda on 07-15-2024 Erythrocyte distribution width (RBC) [Ratio] 43.9 fl 35.1-43.9 [facility] GFR/1.73 sq M.predicted maxime g non-blacks MDRD (S/P/Bld) [Vol rate/Area]Ordered By: Donato Sepulveda on 07-15-2024 Estimated GFR (MDRD) Non-Af Amer 88 >60 [facility] Comment on above: mL/min/1.73m2 CKD-EP I Creatinine Equation (2020) Glomerular filtration rate ( GFR) estimation/1.73 sq m using serum, plasma, or whole bOrdered By: Donato Sepulveda on 07-15-2024 GFR/1.73 sq M.predicted among non-blacks MDRD (S/P/Bld) [Vol rate/Area] 88 mL/min/{1.73_m2} >60 [facility] Comment on above: mL/min/1.73m2 CKD-EP I Creatinine Equation (2020) Glucose Ql (U)Ordered By: Livier Sepulveda on 07-15-2024 Glucose (U) [Mass/Vol] 1000 mg/dL High Normal [facility] Hematocrit Auto (Bld) [Volum e fraction]Ordered By: Donato Sepulveda on 07-15-2024 Hematocrit (Bld) [Volume fraction] 38.9 % 37-47 [facility] Hemoglobin measurementOrdere d By: Donato Sepulveda on 07-15-2024 Hemoglobin (Bld) [Mass/Vol] 12.6 g/dL 12.0-15.0 [facility] Immature granulocytes/100 WB C Auto (Bld)Ordered By: Donato Sepulveda on 07-15-2024 Immature granulocytes/100 WBC (Bld) 0.200 % 0.0-0.9 [facility] Comment on above: IG% - Immature Granu locytes (promyelocytes, myelocytes and metamyelocytes) > 1% indicates that a LEFT SHIFT is Present. Ketones Test strip Ql (U)Ord ered By: Donato Sepulveda on 07-15-2024 Ketones Ql (U) Negative Negative [facility] - Chemistry and C hemistry - challengeOrdered By: Donato Sepulveda on 07-15-2024 AST [Catalytic activity/Vol] 18 U/L <32 [facility] Lymphocytes Auto (Unsp spec) [#/Vol]Ordered By: Donato Sepulveda on 07-15-2024 Lymphocytes (Bld) [#/Vol] 1.27 10*3/uL 0.83-4.51 [facility] Lymphocytes/100 WBC Auto (Un sp spec)Ordered By: Donato Sepulveda on 07-15-2024 Lymphocytes/100 WBC (Bld) 21.1 % 19-41 [facility] MCV (mean corpuscular volume ) determinationOrdered By: Donato Sepulveda on 07-15-2024 MCV (RBC) [Entitic vol] 91.3 fL 81-99 [facility] Mean corpuscular hemoglobin (MCH) determinationOrdered By: Donato Sepulveda on 07-15-2024 MCH (RBC) [Entitic mass] 29.6 pg 27.0-32.0 [facility] Mean corpuscular hemoglobin concentration (MCHC) determinationOrdered By: Donato Sepulveda on 07-15-2024 MCHC (RBC) [Mass/Vol] 32.4 g/dL 32-36 [facility] Mean platelet volume determi nationOrdered By: Donato Sepulveda on 07-15-2024 Platelet mean volume (Bld) [Entitic vol] 10.7 fL 6.2-12.0 [facility] Monocyte percentageOrdered B y: Donato Sepulveda on 07-15-2024 Monocytes/100 WBC (Bld) 7.5 % 0-10 [facility] Neutrophil percentageOrdered By: Donato Sepulveda on 07-15-2024 Neutrophils/100 WBC (Bld) 69.0 % 47-70 [facility] Nitrite Test strip Ql (U)Ord ered By: Donato Sepulveda on 07-15-2024 Nitrite Ql (U) Negative Negative [facility] Nucleated red blood cell per centageOrdered By: Donato Sepulveda on 07-15-2024 Nucleated RBC/100 WBC (Bld) [Ratio] 0 % 0-5 [facility] Platelet countOrdered By: Livier Sepulveda on 07-15-2024 Platelets (Bld) [#/Vol] 188 10*3/uL 150-450 [facility] Potassium (Unsp spec) [Mass/ Vol]Ordered By: Donato Sepulveda on 07-15-2024 Potassium [Moles/Vol] 4.3 mmol/L 3.3-5.1 [facility] Potassium measurement (mass/ volume)Ordered By: Donato Sepulveda on 07-15-2024 Potassium (Unsp spec) [Mass/Vol] 4.3 mmol/L 3.3-5.1 [facility] Protein Test strip Ql (U)Ord ered By: Donato Sepulveda on 07-15-2024 Protein Ql (U) Negative Negative [facility] RBC Auto (Bld) [#/Vol]Ordere d By: Donato Sepulveda on 07-15-2024 RBC (Bld) [#/Vol] 4.26 10*6/uL 4.2-5.4 [facility] Serum creatinine measurement (mass/volume)Ordered By: Donato Sepulveda on 07-15-2024 Creatinine [Mass/Vol] 0.65 mg/dL Low 0.70-1.20 [facility] Serum globulin measurementOr dered By: Donato Sepulveda on 07-15-2024 Globulin (S) [Mass/Vol] 2.6 g/dL 2.2-4.2 [facility] Serum glucose measurement (m ass/volume)Ordered By: Donato Sepulveda on 07-15-2024 Glucose [Mass/Vol] 322 mg/dL High 70-99 [facility] Serum or plasma alanine rivera otransferase (ALT) measurementOrdered By: Donato Sepulveda on 07-15-2024 ALT [Catalytic activity/Vol] 9 U/L <35 [facility] Serum or plasma albumin serge urement (mass/volume)Ordered By: Donato Sepulveda on 07-15-2024 Albumin [Mass/Vol] 3.9 g/dL 3.4-4.8 [facility] Serum or plasma albumin/glob ulin mass ratioOrdered By: Donato Sepulveda on 07-15-2024 Albumin/Globulin [Mass ratio] 1.5 {ratio} 0.9-2.4 [facility] Serum or plasma alkaline stephane sphatase measurementOrdered By: Donato Sepulveda on 07-15-2024 ALP [Catalytic activity/Vol] 59 U/L 35-104 [facility] Serum or plasma calcium serge urement (mass/volume)Ordered By: Donato Sepulveda on 07-15-2024 Calcium [Mass/Vol] 9.6 mg/dL 7.6-11.0 [facility] Serum or plasma urea nitroge n measurement (mass/volume)Ordered By: Donato Sepulveda on 07-15-2024 Urea nitrogen [Mass/Vol] 11 mg/dL 4-19 [facility] Sodium levelOrdered By: Raul Sepulveda on 07-15-2024 Sodium [Moles/Vol] 138 mmol/L 133-145 [facility] Total proteinOrdered By: Sherwin Sepulveda on 07-15-2024 Protein [Mass/Vol] 6.6 g/dL 5.9-8.4 [facility] Urine blood detectionOrdered By: Donato Sepulveda on 07-15-2024 Urine Occult Blood Negative Negative [facility] Urine clarityOrdered By: Sherwin Sepulveda on 07-15-2024 Clarity (U) Sl. Cloudy Clear [facility] Urine color determinationOrd ered By: Donato Sepulveda on 07-15-2024 Color (U) Yellow Yellow [facility] Urine cultureOrdered By: Sherwin Sepulveda on 07-15-2024 Bacteria identified Cx Nom (U) GNR lactose machine design checker Abnormal [facility] Bacteria identified Cx Nom (U) Staphylococcus epidermidis Abnormal [facility] Urine glucose detectionOrder ed By: Donato Sepulveda on 07-15-2024 Glucose Ql (U) 1000 mg/dl High Normal [facility] Urine leukocyte esterase det ection by dipstickOrdered By: Donato Sepulveda on 07-15-2024 Leukocyte esterase Test strip Ql (U) Negative Negative [facility] Urine pHOrdered By: Harvey Sepulveda on 07-15-2024 pH (U) 7.0 [pH] 5.0 - 8.0 [facility] Urine specific gravity measu rementOrdered By: Donato Sepulveda on 07-15-2024 Specific gravity (U) [Rel density] 1.010 1.002-1.030 [facility] Urine urobilinogen measureme ntOrdered By: Donato Sepulveda on 07-15-2024 Urobilinogen Ql (U) 1 mg/dl High Normal [facility] Urobilinogen Ql (U)Ordered B y: Donato Sepulveda on 07-15-2024 Urobilinogen (U) [Mass/Vol] 1 mg/dL High Normal [facility] White blood cell (WBC) count Ordered By: Donato Sepulveda on 07-15-2024 WBC (Bld) [#/Vol] 6.0 10*3/uL 4.4-11.0 [facility] Vitamin D, 25-hydroxyOrdered By: Donato Sepulveda on 07-14-2024 Vitamin D 25-Hydroxy 33.9 ng/mL 30-100 [facility] Comment on above: Vitamin D StatusDefi ciency: <20 ng/mL (50nmol/L)Insufficiency: 20-30 ng/mL (50-75 nmol/L)Sufficiency: 30-100 ng/mL (75-250 nmol/L)Toxicity: >100 ng/mL (>250 nmol/L) Bilirubin Test strip Ql (U)O rdered By: Donato Sepulveda on 06-15-2024 Bilirubin Ql (U) Negative Negative [facility] Glucose Ql (U)Ordered By: Livier Sepulveda on 06-15-2024 Glucose (U) [Mass/Vol] 1000 mg/dL High Normal [facility] Ketones Test strip Ql (U)Ord ered By: Donato Sepulveda on 06-15-2024 Ketones Ql (U) Negative Negative [facility] Nitrite Test strip Ql (U)Ord ered By: Donato Sepulveda on 06-15-2024 Nitrite Ql (U) Negative Negative [facility] Protein Test strip Ql (U)Ord ered By: Donato Sepulveda on 06-15-2024 Protein Ql (U) Negative Negative [facility] Urine blood detectionOrdered By: Donato Sepulveda on 06-15-2024 Urine Occult Blood 150 /ul High Negative [facility] Urine clarityOrdered By: Sherwin Sepulveda on 06-15-2024 Clarity (U) Clear Clear [facility] Urine color determinationOrd ered By: Donato Sepulveda on 06-15-2024 Color (U) Yellow Yellow [facility] Urine cultureOrdered By: Sherwin Sepulveda on 06-15-2024 Bacteria identified Cx Nom (U) Mixed Gram Pos & Gram Neg Org Abnormal [facility] Urine glucose detectionOrder ed By: Donato Sepulveda on 06-15-2024 Glucose Ql (U) 1000 mg/dl High Normal [facility] Urine leukocyte esterase det ection by dipstickOrdered By: Donato Sepulveda on 06-15-2024 Leukocyte esterase Test strip Ql (U) 25 /ul High Negative [facility] Urine pHOrdered By: Harvey Sepulveda on 06-15-2024 pH (U) 6.0 [pH] 5.0 - 8.0 [facility] Urine specific gravity measu rementOrdered By: Donato Sepulveda on 06-15-2024 Specific gravity (U) [Rel density] 1.010 1.002-1.030 [facility] Urine urobilinogen measureme ntOrdered By: Donato Sepulveda on 06-15-2024 Urobilinogen Ql (U) Normal mg/dl Normal [facility] Urobilinogen Ql (U)Ordered B y: Donato Sepulveda on 06-15-2024 Urine Urobilinogen Normal mg/dl Normal [facility] Hemoglobin A1c percentageOrd ered By: Donato Sepulveda on 06-09-2024 HbA1c (Bld) [Mass fraction] 8.6 % High 3.8-5.6 [facility] Comment on above: Normal < 5.7 % Predi abetic 5.7 - 6.4 % Diabetic >or= 6.5 % Please note range changes. [id number] DOrdered By: Noris Sepulveda on 06-02-2024 Vitamin D 25-Hydroxy 53.0 ng/mL [facility] Comment on above: Vitamin D 25(OH) Sta tus Range Deficiency <20 ng/mL (50nmol/L) Insufficiency 20 - 30 ng/mL (50 - 75 nmol/L) Sufficiency 30 - 100 ng/mL (75 - 250 nmol/L) Toxicity >100 ng/mL (>250 nmol/L) 74-[id number] DOrdered By: Noris Sepulveda on 04-21-2024 Vitamin D 25-Hydroxy 64.0 ng/mL [facility] Comment on above: Vitamin D 25(OH) Sta tus Range Deficiency <20 ng/mL (50nmol/L) Insufficiency 20 - 30 ng/mL (50 - 75 nmol/L) Sufficiency 30 - 100 ng/mL (75 - 250 nmol/L) Toxicity >100 ng/mL (>250 nmol/L) Basophil percentageOrdered B y: Donato Sepulveda on 08-06-2023 Bilirubin [Mass/Vol] 0.50 mg/dL 0.20-1.00 [facility] Comment on above: For patients on eltr ombopag therapy, use of Dimension [place] TBIL is not recommended. Chloride [Moles/Vol] 105 mmol/L 98-107 [facility] Glucose [Mass/Vol] 153 mg/dL 74-106 [facility] Comment on above: Fasting Glucose resu lt greater than or equal to 126 mg/dL suggests DIABETES MELLITUS per A.D.A. criteria. Hemoglobin (Bld) [Mass/Vol] 12.4 g/dL 12.0-15.0 [facility] Potassium [Moles/Vol] 4.0 mmol/L 3.5-5.1 [facility] Protein [Mass/Vol] 6.7 g/dL 6.4-8.2 [facility] Sodium [Moles/Vol] 139 mmol/L 136-145 [facility] WBC (Bld) [#/Vol] 5.9 10*3/uL 4.4-11.0 [facility] Determination of erythrocyte mean corpuscular volume (MCV)Ordered By: Donato Sepulveda on 08-06-2023 MCV (RBC) [Entitic vol] 92.5 fL 81-99 [facility] Erythrocyte distribution wid th ratioOrdered By: Donato Sepulveda on 08-06-2023 Erythrocyte distribution width (RBC) [Ratio] 13.3 % 11.6-14.6 [facility] Erythrocyte distribution wid th standard deviationOrdered By: Donato Sepulveda on 08-06-2023 Erythrocyte distribution width (RBC) [Entitic vol] 45.2 fL 35.1-43.9 [facility] Hematocrit Auto (Bld) [Volum e fraction]Ordered By: Donato Sepulveda on 08-06-2023 Hematocrit (Bld) [Volume fraction] 39.7 % 37-47 [facility] - Chemistry and C hemistry - challengeOrdered By: Donato Sepuvleda on 08-06-2023 Albumin/Globulin [Mass ratio] 1.0 {ratio} 0.9-2.4 [facility] ALP [Catalytic activity/Vol] 59 U/L 45-117 [facility] ALT [Catalytic activity/Vol] 13 U/L 13-56 [facility] CO2 [Moles/Vol] 29.0 mmol/L 21.0-32.0 [facility] Globulin (S) [Mass/Vol] 3.3 g/dL 2.2-4.2 [facility] Urea nitrogen/Creatinine [Mass ratio] 14.4 mg/mg 10-20 [facility] - Hematology and Cell countsOrdered By: Donato Sepulveda on 08-06-2023 MCH (RBC) [Entitic mass] 28.9 pg 27.0-32.0 [facility] MCHC (RBC) [Mass/Vol] 31.2 g/dL 32-36 [facility] Platelet mean volume (Bld) [Entitic vol] 10.1 fL 6.2-12.0 [facility] Platelets (Bld) [#/Vol] 187 10*3/uL 150-450 [facility] No Panel InformationOrdered By: Donato Sepulveda on 08-06-2023 Estimated GFR (MDRD) Amer 94 mL/min >60 [facility] Comment on above: GFR Calc Estimated GFR (MDRD) Non-Af Amer 77 mL/min >60 [facility] Comment on above: Non- GFR Calc RBC Auto (Bld) [#/Vol]Ordere d By: Donato Sepulveda on 08-06-2023 RBC (Bld) [#/Vol] 4.29 10*6/uL 4.2-5.4 [facility] Serum or plasma calcium serge urement (mass/volume)Ordered By: Donato Sepulveda on 08-06-2023 Calcium [Mass/Vol] 9.0 mg/dL 8.5-10.1 [facility] Serum or plasma creatinine m easurement (mass/volume)Ordered By: Donato Sepulveda on 08-06-2023 Creatinine [Mass/Vol] 0.76 mg/dL 0.55-1.02 [facility] Comment on above: The validity of the calculated GFR & GFRAA in patients over 70 years has not been determined. Clinical correlation is essential. Serum or plasma urea nitroge n measurement (mass/volume)Ordered By: Donato Sepulveda on 08-06-2023 Urea nitrogen [Mass/Vol] 11 mg/dL 7-18 [facility] Thin prep Papanicolaou smear with manual screeningOrdered By: balaji Sepulveda on 08-06-2023 Thin prep Papanicolaou smear with manual screening 3.4 g/dL 3.2-5.0 [facility] Thin prep Papanicolaou smear with manual screening 15 U/L 15-37 [facility] Thin prep Papanicolaou smear with manual screening 5 5-15 [facility] Basophil percentageOrdered B y: Donato Sepulveda on 06-11-2023 Bilirubin [Mass/Vol] 0.50 mg/dL 0.20-1.00 [facility] Comment on above: For patients on eltr ombopag therapy, use of Dim[employer] [place] TBIL is not recommended. Chloride [Moles/Vol] 105 mmol/L 98-107 [facility] Glucose [Mass/Vol] 92 mg/dL 74-106 [facility] Hemoglobin (Bld) [Mass/Vol] 12.1 g/dL 12.0-15.0 [facility] Potassium [Moles/Vol] 3.7 mmol/L 3.5-5.1 [facility] Protein [Mass/Vol] 6.9 g/dL 6.4-8.2 [facility] Sodium [Moles/Vol] 140 mmol/L 136-145 [facility] WBC (Bld) [#/Vol] 7.0 10*3/uL 4.4-11.0 [facility] Determination of erythrocyte mean corpuscular volume (MCV)Ordered By: Donato Sepulveda on 06-11-2023 MCV (RBC) [Entitic vol] 92.6 fL 81-99 [facility] Erythrocyte distribution wid th ratioOrdered By: Rauldixonvillechar Sepulveda on 06-11-2023 Erythrocyte distribution width (RBC) [Ratio] 12.5 % 11.6-14.6 [facility] Erythrocyte distribution wid th standard deviationOrdered By: Donato Sepulveda on 06-11-2023 Erythrocyte distribution width (RBC) [Entitic vol] 42.4 fL 35.1-43.9 [facility] Hematocrit Auto (Bld) [Volum e fraction]Ordered By: Rauld[place]char Sepulveda on 06-11-2023 Hematocrit (Bld) [Volume fraction] 38.6 % 37-47 [facility] - Chemistry and C hemistry - challengeOrdered By: Donato Sepulveda on 06-11-2023 Albumin/Globulin [Mass ratio] 0.8 {ratio} 0.9-2.4 [facility] ALP [Catalytic activity/Vol] 85 U/L 45-117 [facility] ALT [Catalytic activity/Vol] 18 U/L 13-56 [facility] CO2 [Moles/Vol] 29.0 mmol/L 21.0-32.0 [facility] Globulin (S) [Mass/Vol] 3.8 g/dL 2.2-4.2 [facility] Urea nitrogen/Creatinine [Mass ratio] 18.3 mg/mg 10-20 [facility] - Hematology and Cell countsOrdered By: Donato Sepulveda on 06-11-2023 MCH (RBC) [Entitic mass] 29.0 pg 27.0-32.0 [facility] MCHC (RBC) [Mass/Vol] 31.3 g/dL 32-36 [facility] Platelet mean volume (Bld) [Entitic vol] 11.0 fL 6.2-12.0 [facility] Platelets (Bld) [#/Vol] 190 10*3/uL 150-450 [facility] No Panel InformationOrdered By: Donato Sepulveda on 06-11-2023 Estimated GFR (MDRD) Amer 80 mL/min >60 [facility] Comment on above: GFR Calc Estimated GFR (MDRD) Non-Af Amer 66 mL/min >60 [facility] Comment on above: Non- GFR Calc Vitamin D 25-Hydroxy 29.3 ng/mL [facility] Comment on above: Vitamin D 25(OH) Sta tus Range Deficiency <20 ng/mL (50nmol/L) Insufficiency 20 - 30 ng/mL (50 - 75 nmol/L) Sufficiency 30 - 100 ng/mL (75 - 250 nmol/L) Toxicity >100 ng/mL (>250 nmol/L) RBC Auto (Bld) [#/Vol]Ordere d By: Donato Sepulveda on 06-11-2023 RBC (Bld) [#/Vol] 4.17 10*6/uL 4.2-5.4 [facility] Serum or plasma calcium serge urement (mass/volume)Ordered By: Donato Sepulveda on 06-11-2023 Calcium [Mass/Vol] 9.2 mg/dL 8.5-10.1 [facility] Serum or plasma creatinine m easurement (mass/volume)Ordered By: Donato Sepulveda on 06-11-2023 Creatinine [Mass/Vol] 0.87 mg/dL 0.55-1.02 [facility] Comment on above: The validity of the calculated GFR & GFRAA in patients over 70 years has not been determined. Clinical correlation is essential. Serum or plasma urea nitroge n measurement (mass/volume)Ordered By: Donato Sepulveda on 06-11-2023 Urea nitrogen [Mass/Vol] 16 mg/dL 7-18 [facility] Thin prep Papanicolaou smear with manual screeningOrdered By: Donato Sepulveda on 06-11-2023 Thin prep Papanicolaou smear with manual screening 3.1 g/dL 3.2-5.0 [facility] Thin prep Papanicolaou smear with manual screening 18 U/L 15-37 [facility] Thin prep Papanicolaou smear with manual screening 6 5-15 [facility] Whole blood hemoglobin A1c/t otal hemoglobin ratio (mass fraction)Ordered By: Donato Sepulveda on 06-11-2023 HbA1c (Bld) [Mass fraction] 8.7 % 3.8-5.6 [facility] Comment on above: Normal < 5.7 % Predi abetic 5.7 - 6.4 % Diabetic >or= 6.5 % Please note range changes. Absolute lymphocyte countOrd ered By: Colleen Walker on 06-05-2023 Lymphocytes Auto (Unsp spec) [#/Vol] 1.18 10*3/uL 0.83-4.51 [facility] Automated lymphocyte count a s percentage of total leukocytesOrdered By: Colleen Walker on 06-05-2023 Lymphocytes/100 WBC Auto (Unsp spec) 13.6 % 19-41 [facility] Basophil percentageOrdered B y: Colleen Walker on 06-05-2023 Basophil percentage 5-10 SEEN /hpf 0-5 [facility] Basophils/100 WBC (Bld) 0.6 % 0-1 [facility] Chloride [Moles/Vol] 104 mmol/L 98-107 [facility] Eosinophils/100 WBC (Bld) 2.0 % 0-5 [facility] Glucose [Mass/Vol] 150 mg/dL 74-106 [facility] Comment on above: Fasting Glucose resu lt greater than or equal to 126 mg/dL suggests DIABETES MELLITUS per A.D.A. criteria. Hemoglobin (Bld) [Mass/Vol] 13.2 g/dL 12.0-15.0 [facility] Monocytes/100 WBC (Bld) 7.2 % 0-10 [facility] Neutrophils (Bld) [#/Vol] 6.6 10*3/uL 2.0-7.7 [facility] Neutrophils/100 WBC (Bld) 76.3 % 47-70 [facility] Potassium [Moles/Vol] 3.6 mmol/L 3.5-5.1 [facility] Sodium [Moles/Vol] 137 mmol/L 136-145 [facility] WBC (Bld) [#/Vol] 8.7 10*3/uL 4.4-11.0 [facility] Bilirubin Test strip Ql (U)O rdered By: Colleen Walker on 06-05-2023 Bilirubin Ql (U) Negative Negative [facility] Determination of erythrocyte mean corpuscular volume (MCV)Ordered By: Colleen Walker on 06-05-2023 MCV (RBC) [Entitic vol] 92.9 fL 81-99 [facility] Erythrocyte distribution wid th ratioOrdered By: Colleen Walker on 06-05-2023 Erythrocyte distribution width (RBC) [Ratio] 12.6 % 11.6-14.6 [facility] Erythrocyte distribution wid th standard deviationOrdered By: Colleen Walker on 06-05-2023 Erythrocyte distribution width (RBC) [Entitic vol] 43.4 fL 35.1-43.9 [facility] Hematocrit Auto (Bld) [Volum e fraction]Ordered By: Colleen Walker on 06-05-2023 Hematocrit (Bld) [Volume fraction] 42.1 % 37-47 [facility] Immature granulocytes/100 WB C Auto (Bld)Ordered By: Colleen Walker on 06-05-2023 Immature granulocytes/100 WBC (Bld) 0.300 % 0.0-0.9 [facility] Comment on above: IG% - Immature Granu locytes (promyelocytes, myelocytes and metamyelocytes) > 1% indicates that a LEFT SHIFT is Present. Ketones Test strip Ql (U)Ord ered By: Colleen Walker on 06-05-2023 Ketones Ql (U) Negative Negative [facility] Laboratory - Chemistry and C hemistry - challengeOrdered By: Colleen Walker on 06-05-2023 CO2 [Moles/Vol] 32.0 mmol/L 21.0-32.0 [facility] Urea nitrogen/Creatinine [Mass ratio] 21.9 mg/mg 10-20 [facility] - Hematology and Cell countsOrdered By: Colleen Walker on 06-05-2023 MCH (RBC) [Entitic mass] 29.1 pg 27.0-32.0 [facility] MCHC (RBC) [Mass/Vol] 31.4 g/dL 32-36 [facility] Nucleated RBC/100 WBC (Bld) [Ratio] 0 % 0-5 [facility] Platelets (Bld) [#/Vol] 180 10*3/uL 150-450 [facility] Mucus LM Ql (Urine sed)Order ed By: Colleen Walker on 06-05-2023 Mucus Ql (Urine sed) 0 SEEN /hpf [facility] Nitrite Test strip Ql (U)Ord ered By: Colleen Walker on 06-05-2023 Nitrite Ql (U) Negative Negative [facility] No Panel InformationOrdered By: Colleen Walker on 06-05-2023 Urine RBC 0 SEEN /hpf 0-5 [facility] Estimated Creatinine Clearance Calc 48.43 ml/min [facility] Estimated GFR (MDRD) Amer 92 mL/min >60 [facility] Comment on above: GFR Calc Estimated GFR (MDRD) Non-Af Amer 76 mL/min >60 [facility] Comment on above: Non- GFR Calc Platelet mean volume Jamie-Ec ker (Bld) [Entitic vol]Ordered By: Colleen Walker on 06-05-2023 Platelet mean volume (Bld) [Entitic vol] 10.3 fL 6.2-12.0 [facility] Protein Test strip Ql (U)Ord ered By: Colleen Walker on 06-05-2023 Protein Ql (U) 15 mg/dl Negative [facility] RBC Auto (Bld) [#/Vol]Ordere d By: Colleen Walker on 06-05-2023 RBC (Bld) [#/Vol] 4.53 10*6/uL 4.2-5.4 [facility] Serum or plasma calcium serge urement (mass/volume)Ordered By: Colleen Walker on 06-05-2023 Calcium [Mass/Vol] 9.3 mg/dL 8.5-10.1 [facility] Serum or plasma creatinine m easurement (mass/volume)Ordered By: Colleen Walker on 06-05-2023 Creatinine [Mass/Vol] 0.78 mg/dL 0.55-1.02 [facility] Comment on above: The validity of the calculated GFR & GFRAA in patients over 70 years has not been determined. Clinical correlation is essential. Serum or plasma urea nitroge n measurement (mass/volume)Ordered By: Colleen Walker on 06-05-2023 Urea nitrogen [Mass/Vol] 17 mg/dL 7-18 [facility] Squamous epithelial cells de tection in urine sediment by light microscopyOrdered By: Colleen Walker on 06-05-2023 Epithelial cells.squamous LM Ql (Urine sed) 5-10 SEEN /hpf 5-10 [facility] Thin prep Papanicolaou smear with manual screeningOrdered By: Colleen Walker on 06-05-2023 Thin prep Papanicolaou smear with manual screening 1 5-15 [facility] Urine blood detectionOrdered By: Colleen Walker on 06-05-2023 RBC Ql (U) 50 /ul Negative [facility] Urine clarityOrdered By: Yadira Walker on 06-05-2023 Clarity (U) Sl. Cloudy Clear [facility] Urine color determinationOrd ered By: Colleen Walker on 06-05-2023 Color (U) Yellow Yellow [facility] Urine glucose detectionOrder ed By: Colleen Walker on 06-05-2023 Glucose Ql (U) 1000 mg/dl Normal [facility] Urine leukocyte esterase det ection by dipstickOrdered By: Colleen Walker on 06-05-2023 Leukocyte esterase Test strip Ql (U) 100 /ul Negative [facility] Urine pHOrdered By: Colleen ma on 06-05-2023 pH (U) 6.0 [pH] 5.0 - 8.0 [facility] Urine sediment bacteria coun t by microscopy (number/high power field)Ordered By: Colleen Walker on 06-05-2023 Bacteria LM.HPF (Urine sed) [#/Area] 0 /[HPF] None Seen [facility] Urine specific gravity measu rementOrdered By: Colleen Walker on 06-05-2023 Specific gravity (U) [Rel density] 1.015 1.002-1.030 [facility] Urine urobilinogen measureme ntOrdered By: Colleen Walker on 06-05-2023 Urobilinogen Ql (U) Normal mg/dl Normal [facility] Absolute lymphocyte countOrd ered By: Donato Sepulveda on 04-23-2023 Lymphocytes Auto (Unsp spec) [#/Vol] 1.27 10*3/uL 0.83-4.51 [facility] Basophil percentageOrdered B y: Donato Sepulveda on 04-23-2023 Basophils/100 WBC (Bld) 0.3 % 0-1 [facility] Chloride [Moles/Vol] 106 mmol/L 98-107 [facility] Eosinophils/100 WBC (Bld) 4.6 % 0-5 [facility] Glucose [Mass/Vol] 96 mg/dL 74-106 [facility] Neutrophils (Bld) [#/Vol] 4.1 10*3/uL 2.0-7.7 [facility] Neutrophils/100 WBC (Bld) 67.6 % 47-70 [facility] Potassium [Moles/Vol] 3.7 mmol/L 3.5-5.1 [facility] Sodium [Moles/Vol] 141 mmol/L 136-145 [facility] WBC (Bld) [#/Vol] 6.1 10*3/uL 4.4-11.0 [facility] Blood erythrocytes count (nu mber/volume)Ordered By: Donato Sepulveda on 04-23-2023 RBC (Bld) [#/Vol] 4.10 10*6/uL 4.2-5.4 [facility] Blood hemoglobin measurement (mass/volume)Ordered By: Donato Sepulveda on 04-23-2023 Hemoglobin (Bld) [Mass/Vol] 12.0 g/dL 12.0-15.0 [facility] Blood lymphocytes/100 leukoc ytesOrdered By: Donato Sepulveda on 04-23-2023 Lymphocytes/100 WBC (Bld) 20.9 % 19-41 [facility] Blood monocytes/100 leukocyt esOrdered By: Donato Sepulveda on 04-23-2023 Monocytes/100 WBC (Bld) 6.1 % 0-10 [facility] Blood platelet mean volumeOr dered By: Donato Sepulveda on 04-23-2023 Platelet mean volume (Bld) [Entitic vol] 10.3 fL 6.2-12.0 [facility] Determination of erythrocyte mean corpuscular volume (MCV)Ordered By: Donato Sepulveda on 04-23-2023 MCV (RBC) [Entitic vol] 93.9 fL 81-99 [facility] Hematocrit Auto (Bld) [Volum e fraction]Ordered By: Donato Sepulveda on 04-23-2023 Hematocrit (Bld) [Volume fraction] 38.5 % 37-47 [facility] - Chemistry and C hemistry - challengeOrdered By: [place]char Sepulveda on 04-23-2023 CO2 [Moles/Vol] 32.0 mmol/L 21.0-32.0 [facility] Urea nitrogen/Creatinine [Mass ratio] 21.8 mg/mg 10-20 [facility] - Hematology and Cell countsOrdered By: [place]char Sepulveda on 04-23-2023 Erythrocyte distribution width (RBC) [Entitic vol] 44.9 fL 35.1-43.9 [facility] Erythrocyte distribution width (RBC) [Ratio] 13.0 % 11.6-14.6 [facility] Immature granulocytes/100 WBC (Bld) 0.500 % 0.0-0.9 [facility] Comment on above: IG% - Immature Granu locytes (promyelocytes, myelocytes and metamyelocytes) > 1% indicates that a LEFT SHIFT is Present. MCH (RBC) [Entitic mass] 29.3 pg 27.0-32.0 [facility] Nucleated RBC/100 WBC (Bld) [Ratio] 0 % 0-5 [facility] MCHC Auto (RBC) [Mass/Vol]Or dered By: Donato Sepulveda on 04-23-2023 MCHC (RBC) [Mass/Vol] 31.2 g/dL 32-36 [facility] No Panel InformationOrdered By: Donato Sepulveda on 04-23-2023 Estimated GFR (MDRD) Amer 106 mL/min >60 [facility] Comment on above: GFR Calc Estimated GFR (MDRD) Non-Af Amer 87 mL/min >60 [facility] Comment on above: Non- GFR Calc Platelets bldOrdered By: Sherwin Sepulveda on 04-23-2023 Platelets (Bld) [#/Vol] 207 10*3/uL 150-450 [facility] Serum or plasma calcium serge urement (mass/volume)Ordered By: Donato Sepulveda on 04-23-2023 Calcium [Mass/Vol] 9.3 mg/dL 8.5-10.1 [facility] Serum or plasma creatinine m easurement (mass/volume)Ordered By: Donato Sepulveda on 04-23-2023 Creatinine [Mass/Vol] 0.69 mg/dL 0.55-1.02 [facility] Comment on above: The validity of the calculated GFR & GFRAA in patients over 70 years has not been determined. Clinical correlation is essential. Serum or plasma urea nitroge n measurement (mass/volume)Ordered By: Donato Sepulveda on 04-23-2023 Urea nitrogen [Mass/Vol] 15 mg/dL 7-18 [facility] Thin prep Papanicolaou smear with manual screeningOrdered By: Livierstumarcela Harjitrjnoris on 04-23-2023 Thin prep Papanicolaou smear with manual screening 3 5-15 [facility] Basophil percentageOrdered B y: Livierstudyanchar Lomb[place]irjnoris on 04-19-2023 Potassium [Moles/Vol] 4.3 mmol/L 3.5-5.1 [facility] Basophil percentageOrdered B y: Livierstudyanchar Lobmardirjnoris on 04-09-2023 Bilirubin [Mass/Vol] 0.30 mg/dL 0.20-1.00 [facility] Comment on above: For patients on eltr ombopag therapy, use of Dimension [place] TBIL is not recommended. Chloride [Moles/Vol] 106 mmol/L 98-107 [facility] Glucose [Mass/Vol] 55 mg/dL 74-106 [facility] Potassium [Moles/Vol] 3.9 mmol/L 3.5-5.1 [facility] Protein [Mass/Vol] 7.2 g/dL 6.4-8.2 [facility] Sodium [Moles/Vol] 139 mmol/L 136-145 [facility] WBC (Bld) [#/Vol] 7.9 10*3/uL 4.4-11.0 [facility] Blood erythrocytes count (nu mber/volume)Ordered By: Donato Sepulveda on 04-09-2023 RBC (Bld) [#/Vol] 4.36 10*6/uL 4.2-5.4 [facility] Blood hemoglobin measurement (mass/volume)Ordered By: Donato Sepulveda on 04-09-2023 Hemoglobin (Bld) [Mass/Vol] 12.7 g/dL 12.0-15.0 [facility] Blood platelet mean volumeOr dered By: Donato Sepulveda on 04-09-2023 Platelet mean volume (Bld) [Entitic vol] 10.9 fL 6.2-12.0 [facility] Determination of erythrocyte mean corpuscular volume (MCV)Ordered By: Donato Sepulveda on 04-09-2023 MCV (RBC) [Entitic vol] 94.5 fL 81-99 [facility] Hematocrit Auto (Bld) [Volum e fraction]Ordered By: [place] Sepulveda on 04-09-2023 Hematocrit (Bld) [Volume fraction] 41.2 % 37-47 [facility] - Chemistry and C hemistry - challengeOrdered By: Donato Sepulveda on 04-09-2023 ALP [Catalytic activity/Vol] 90 U/L 45-117 [facility] ALT [Catalytic activity/Vol] 21 U/L 13-56 [facility] CO2 [Moles/Vol] 30.0 mmol/L 21.0-32.0 [facility] Globulin (S) [Mass/Vol] 3.7 g/dL 2.2-4.2 [facility] Urea nitrogen/Creatinine [Mass ratio] 22.9 mg/mg 10-20 [facility] - Hematology and Cell countsOrdered By: [place] Sepulveda on 04-09-2023 Erythrocyte distribution width (RBC) [Entitic vol] 44.3 fL 35.1-43.9 [facility] Erythrocyte distribution width (RBC) [Ratio] 12.8 % 11.6-14.6 [facility] MCH (RBC) [Entitic mass] 29.1 pg 27.0-32.0 [facility] MCHC Auto (RBC) [Mass/Vol]Or dered By: Donato Sepulveda on 04-09-2023 MCHC (RBC) [Mass/Vol] 30.8 g/dL 32-36 [facility] No Panel InformationOrdered By: Donato Sepulveda on 04-09-2023 Estimated GFR (MDRD) Amer 97 mL/min >60 [facility] Comment on above: GFR Calc Estimated GFR (MDRD) Non-Af Amer 80 mL/min >60 [facility] Comment on above: Non- GFR Calc Platelets bldOrdered By: Sherwin Sepulveda on 04-09-2023 Platelets (Bld) [#/Vol] 212 10*3/uL 150-450 [facility] Serum or plasma albumin serge urement (mass/volume)Ordered By: Donato Sepulveda on 04-09-2023 Albumin [Mass/Vol] 3.5 g/dL 3.2-5.0 [facility] Serum or plasma albumin/glob ulin mass ratioOrdered By: Donato Sepulveda on 04-09-2023 Albumin/Globulin [Mass ratio] 0.9 {ratio} 0.9-2.4 [facility] Serum or plasma calcium serge urement (mass/volume)Ordered By: Donato Sepulveda on 04-09-2023 Calcium [Mass/Vol] 9.4 mg/dL 8.5-10.1 [facility] Serum or plasma creatinine m easurement (mass/volume)Ordered By: Donato Sepulveda on 04-09-2023 Creatinine [Mass/Vol] 0.74 mg/dL 0.55-1.02 [facility] Comment on above: The validity of the calculated GFR & GFRAA in patients over 70 years has not been determined. Clinical correlation is essential. Serum or plasma urea nitroge n measurement (mass/volume)Ordered By: Donato Sepulveda on 04-09-2023 Urea nitrogen [Mass/Vol] 17 mg/dL 7-18 [facility] Thin prep Papanicolaou smear with manual screeningOrdered By: Donato Sepulveda on 04-09-2023 Thin prep Papanicolaou smear with manual screening 19 U/L 15-37 [facility] Thin prep Papanicolaou smear with manual screening 3 5-15 [facility] No Panel InformationOrdered By: Donato Sepulveda on 03-12-2023 Vitamin D 25-Hydroxy 34.4 ng/mL [facility] Comment on above: Vitamin D 25(OH) Sta tus Range Deficiency <20 ng/mL (50nmol/L) Insufficiency 20 - 30 ng/mL (50 - 75 nmol/L) Sufficiency 30 - 100 ng/mL (75 - 250 nmol/L) Toxicity >100 ng/mL (>250 nmol/L) Whole blood hemoglobin A1c/t otal hemoglobin ratio (mass fraction)Ordered By: Donato Sepulveda on 03-12-2023 HbA1c (Bld) [Mass fraction] 7.4 % 3.8-5.6 [facility] Comment on above: Normal < 5.7 % Predi abetic 5.7 - 6.4 % Diabetic >or= 6.5 % Please note range changes. Basophil percentageOrdered B y: Donato Sepulveda on 02-05-2023 Bilirubin [Mass/Vol] 0.50 mg/dL 0.20-1.00 [facility] Comment on above: For patients on eltr ombopag therapy, use of Dimension [place] TBIL is not recommended. Chloride [Moles/Vol] 105 mmol/L 98-107 [facility] Glucose [Mass/Vol] 106 mg/dL 74-106 [facility] Comment on above: Fasting Glucose resu lt from 100 to 125 mg/dL suggests IMPAIRED HOMEOSTASIS per A.D.A. criteria. Potassium [Moles/Vol] 4.2 mmol/L 3.5-5.1 [facility] Protein [Mass/Vol] 6.9 g/dL 6.4-8.2 [facility] Sodium [Moles/Vol] 142 mmol/L 136-145 [facility] WBC (Bld) [#/Vol] 6.0 10*3/uL 4.4-11.0 [facility] Blood erythrocytes count (nu mber/volume)Ordered By: Donato Sepulveda on 02-05-2023 RBC (Bld) [#/Vol] 4.18 10*6/uL 4.2-5.4 [facility] Blood hemoglobin measurement (mass/volume)Ordered By: Donato Sepulveda on 02-05-2023 Hemoglobin (Bld) [Mass/Vol] 12.1 g/dL 12.0-15.0 [facility] Blood platelet mean volumeOr dered By: Donato Sepulveda on 02-05-2023 Platelet mean volume (Bld) [Entitic vol] 10.7 fL 6.2-12.0 [facility] Determination of erythrocyte mean corpuscular volume (MCV)Ordered By: Donato Sepulveda on 02-05-2023 MCV (RBC) [Entitic vol] 95.2 fL 81-99 [facility] Direct bilirubinOrdered By: [facility]ied[facility] Newtonchar Sepulveda on 02-05-2023 Bilirubin.direct [Mass/Vol] 0.15 mg/dL 0.00-0.30 [facility] Hematocrit Auto (Bld) [Volum e fraction]Ordered By: balaji Sepulveda on 02-05-2023 Hematocrit (Bld) [Volume fraction] 39.8 % 37-47 [facility] - Chemistry and C hemistry - challengeOrdered By: Donato Sepulveda on 02-05-2023 ALP [Catalytic activity/Vol] 73 U/L 45-117 [facility] ALT [Catalytic activity/Vol] 20 U/L 13-56 [facility] CO2 [Moles/Vol] 32.0 mmol/L 21.0-32.0 [facility] Globulin (S) [Mass/Vol] 3.5 g/dL 2.2-4.2 [facility] Urea nitrogen/Creatinine [Mass ratio] 20.8 mg/mg 10-20 [facility] - Hematology and Cell countsOrdered By: Donato Sepulveda on 02-05-2023 Erythrocyte distribution width (RBC) [Entitic vol] 46.1 fL 35.1-43.9 [facility] Erythrocyte distribution width (RBC) [Ratio] 13.1 % 11.6-14.6 [facility] MCH (RBC) [Entitic mass] 28.9 pg 27.0-32.0 [facility] MCHC Auto (RBC) [Mass/Vol]Or dered By: Donato Sepulveda on 02-05-2023 MCHC (RBC) [Mass/Vol] 30.4 g/dL 32-36 [facility] No Panel InformationOrdered By: Donato Sepulveda on 02-05-2023 Estimated GFR (MDRD) Amer 93 mL/min >60 [facility] Comment on above: GFR Calc Estimated GFR (MDRD) Non-Af Amer 76 mL/min >60 [facility] Comment on above: Non- GFR Calc Platelets bldOrdered By: Sherwin Sepulveda on 02-05-2023 Platelets (Bld) [#/Vol] 183 10*3/uL 150-450 [facility] Serum or plasma albumin serge urement (mass/volume)Ordered By: Donato Sepulveda on 02-05-2023 Albumin [Mass/Vol] 3.4 g/dL 3.2-5.0 [facility] Serum or plasma albumin/glob ulin mass ratioOrdered By: Donato Sepulveda on 02-05-2023 Albumin/Globulin [Mass ratio] 1.0 {ratio} 0.9-2.4 [facility] Serum or plasma calcium serge urement (mass/volume)Ordered By: Donato Sepulveda on 02-05-2023 Calcium [Mass/Vol] 9.4 mg/dL 8.5-10.1 [facility] Serum or plasma creatinine m easurement (mass/volume)Ordered By: Donato Sepulveda on 02-05-2023 Creatinine [Mass/Vol] 0.77 mg/dL 0.55-1.02 [facility] Comment on above: The validity of the calculated GFR & GFRAA in patients over 70 years has not been determined. Clinical correlation is essential. Serum or plasma urea nitroge n measurement (mass/volume)Ordered By: Donato Sepulveda on 02-05-2023 Urea nitrogen [Mass/Vol] 16 mg/dL 7-18 [facility] Thin prep Papanicolaou smear with manual screeningOrdered By: Donato Sepulveda on 02-05-2023 Thin prep Papanicolaou smear with manual screening 18 U/L 15-37 [facility] Thin prep Papanicolaou smear with manual screening 5 5-15 [facility] Whole blood hemoglobin A1c/t otal hemoglobin ratio (mass fraction)Ordered By: Donato Sepulveda on 02-05-2023 HbA1c (Bld) [Mass fraction] 7.0 % 3.8-5.6 [facility] Comment on above: Normal < 5.7 % Predi abetic 5.7 - 6.4 % Diabetic >or= 6.5 % Please note range changes. Basophil percentageOrdered B y: Donato Sepulveda on 12-07-2022 Potassium [Moles/Vol] 4.7 mmol/L 3.5-5.1 [facility] Basophil percentageOrdered B y: Donato Sepulveda on 12-04-2022 Bilirubin [Mass/Vol] 0.30 mg/dL 0.20-1.00 [facility] Comment on above: For patients on eltr ombopag therapy, use of Dimension [place] TBIL is not recommended. Chloride [Moles/Vol] 102 mmol/L 98-107 [facility] Glucose [Mass/Vol] 219 mg/dL 74-106 [facility] Comment on above: Glucose result great er than or equal to 200 mg/dLsuggests DIABETES MELLITUS per A.D.A. criteria. Potassium [Moles/Vol] 2.9 mmol/L 3.5-5.1 [facility] Protein [Mass/Vol] 6.6 g/dL 6.4-8.2 [facility] Sodium [Moles/Vol] 137 mmol/L 136-145 [facility] WBC (Bld) [#/Vol] 4.6 10*3/uL 4.4-11.0 [facility] Blood erythrocytes count (nu mber/volume)Ordered By: Donato Sepulveda on 12-04-2022 RBC (Bld) [#/Vol] 4.22 10*6/uL 4.2-5.4 [facility] Blood hemoglobin measurement (mass/volume)Ordered By: Donato Sepulveda on 12-04-2022 Hemoglobin (Bld) [Mass/Vol] 12.4 g/dL 12.0-15.0 [facility] Blood platelet mean volumeOr dered By: Donato Sepulveda on 12-04-2022 Platelet mean volume (Bld) [Entitic vol] 10.7 fL 6.2-12.0 [facility] Determination of erythrocyte mean corpuscular volume (MCV)Ordered By: Donato Sepulveda on 12-04-2022 MCV (RBC) [Entitic vol] 93.8 fL 81-99 [facility] Hematocrit Auto (Bld) [Volum e fraction]Ordered By: [place] Sepulveda on 12-04-2022 Hematocrit (Bld) [Volume fraction] 39.6 % 37-47 [facility] - Chemistry and C hemistry - challengeOrdered By: balaji Sepulveda on 12-04-2022 ALP [Catalytic activity/Vol] 85 U/L 45-117 [facility] ALT [Catalytic activity/Vol] 27 U/L 13-56 [facility] CO2 [Moles/Vol] 33.0 mmol/L 21.0-32.0 [facility] Globulin (S) [Mass/Vol] 3.6 g/dL 2.2-4.2 [facility] Urea nitrogen/Creatinine [Mass ratio] 13.7 mg/mg 10-20 [facility] - Hematology and Cell countsOrdered By: Donato Sepulveda on 12-04-2022 Erythrocyte distribution width (RBC) [Entitic vol] 43.8 fL 35.1-43.9 [facility] Erythrocyte distribution width (RBC) [Ratio] 12.8 % 11.6-14.6 [facility] MCH (RBC) [Entitic mass] 29.4 pg 27.0-32.0 [facility] MCHC Auto (RBC) [Mass/Vol]Or dered By: Donato Sepulveda on 12-04-2022 MCHC (RBC) [Mass/Vol] 31.3 g/dL 32-36 [facility] No Panel InformationOrdered By: Donato Sepulveda on 12-04-2022 Estimated GFR (MDRD) Amer 80 mL/min >60 [facility] Comment on above: GFR Calc Estimated GFR (MDRD) Non-Af Amer 66 mL/min >60 [facility] Comment on above: Non- GFR Calc Vitamin D 25-Hydroxy 40.9 ng/mL [facility] Comment on above: Vitamin D 25(OH) Sta tus Range Deficiency <20 ng/mL (50nmol/L) Insufficiency 20 - 30 ng/mL (50 - 75 nmol/L) Sufficiency 30 - 100 ng/mL (75 - 250 nmol/L) Toxicity >100 ng/mL (>250 nmol/L) Platelets bldOrdered By: Sherwin Sepulveda on 12-04-2022 Platelets (Bld) [#/Vol] 167 10*3/uL 150-450 [facility] Serum or plasma albumin serge urement (mass/volume)Ordered By: Donato Sepulveda on 12-04-2022 Albumin [Mass/Vol] 3.0 g/dL 3.2-5.0 [facility] Serum or plasma albumin/glob ulin mass ratioOrdered By: Donato Sepulveda on 12-04-2022 Albumin/Globulin [Mass ratio] 0.8 {ratio} 0.9-2.4 [facility] Serum or plasma calcium serge urement (mass/volume)Ordered By: Donato Sepulveda on 12-04-2022 Calcium [Mass/Vol] 8.6 mg/dL 8.5-10.1 [facility] Serum or plasma creatinine m easurement (mass/volume)Ordered By: Donato Sepulveda on 12-04-2022 Creatinine [Mass/Vol] 0.88 mg/dL 0.55-1.02 [facility] Comment on above: The validity of the calculated GFR & GFRAA in patients over 70 years has not been determined. Clinical correlation is essential. Serum or plasma urea nitroge n measurement (mass/volume)Ordered By: Donato Sepulveda on 12-04-2022 Urea nitrogen [Mass/Vol] 12 mg/dL 7-18 [facility] Thin prep Papanicolaou smear with manual screeningOrdered By: Donato Sepulveda on 08-01-2023 Thin prep Papanicolaou smear with manual screening 31 U/L 15-37 [facility] Thin prep Papanicolaou smear with manual screening 2 5-15 [facility] Whole blood hemoglobin A1c/t otal hemoglobin ratio (mass fraction)Ordered By: Donato Sepulveda on 12-04-2022 HbA1c (Bld) [Mass fraction] 8.2 % 3.8-5.6 [facility] Comment on above: Normal < 5.7 % Predi abetic 5.7 - 6.4 % Diabetic >or= 6.5 % Please note range changes. Basophil percentageOrdered B y: [place] Sepulveda on 11-21-2022 Potassium [Moles/Vol] 3.3 mmol/L 3.5-5.1 [facility] Basophil percentageOrdered B y: Donato Sepulveda on 10-09-2022 Bilirubin [Mass/Vol] 0.40 mg/dL 0.20-1.00 [facility] Comment on above: For patients on eltr ombopag therapy, use of Dimension [place] TBIL is not recommended. Chloride [Moles/Vol] 104 mmol/L 98-107 [facility] Glucose [Mass/Vol] 135 mg/dL 74-106 [facility] Comment on above: Fasting Glucose resu lt greater than or equal to 126 mg/dL suggests DIABETES MELLITUS per A.D.A. criteria. Potassium [Moles/Vol] 3.1 mmol/L 3.5-5.1 [facility] Protein [Mass/Vol] 6.5 g/dL 6.4-8.2 [facility] Sodium [Moles/Vol] 141 mmol/L 136-145 [facility] WBC (Bld) [#/Vol] 6.8 10*3/uL 4.4-11.0 [facility] Blood erythrocytes count (nu mber/volume)Ordered By: Donato Sepulveda on 10-09-2022 RBC (Bld) [#/Vol] 3.95 10*6/uL 4.2-5.4 [facility] Blood hemoglobin measurement (mass/volume)Ordered By: Donato Sepulveda on 10-09-2022 Hemoglobin (Bld) [Mass/Vol] 11.7 g/dL 12.0-15.0 [facility] Blood platelet mean volumeOr dered By: Donato Sepulveda on 10-09-2022 Platelet mean volume (Bld) [Entitic vol] 10.7 fL 6.2-12.0 [facility] Determination of erythrocyte mean corpuscular volume (MCV)Ordered By: Donato Sepulveda on 10-09-2022 MCV (RBC) [Entitic vol] 94.4 fL 81-99 [facility] Hematocrit Auto (Bld) [Volum e fraction]Ordered By: Donato Sepulveda on 10-09-2022 Hematocrit (Bld) [Volume fraction] 37.3 % 37-47 [facility] Laboratory - Chemistry and C hemistry - challengeOrdered By: Donato Sepulveda on 10-09-2022 ALP [Catalytic activity/Vol] 61 U/L 45-117 [facility] ALT [Catalytic activity/Vol] 16 U/L 13-56 [facility] CO2 [Moles/Vol] 34.0 mmol/L 21.0-32.0 [facility] Globulin (S) [Mass/Vol] 3.3 g/dL 2.2-4.2 [facility] Urea nitrogen/Creatinine [Mass ratio] 13.5 mg/mg 10-20 [facility] - Hematology and Cell countsOrdered By: [place] Sepulveda on 10-09-2022 Erythrocyte distribution width (RBC) [Entitic vol] 44.6 fL 35.1-43.9 [facility] Erythrocyte distribution width (RBC) [Ratio] 12.8 % 11.6-14.6 [facility] MCH (RBC) [Entitic mass] 29.6 pg 27.0-32.0 [facility] MCHC Auto (RBC) [Mass/Vol]Or dered By: Donato Sepulveda on 10-09-2022 MCHC (RBC) [Mass/Vol] 31.4 g/dL 32-36 [facility] No Panel InformationOrdered By: Donato Sepulveda on 10-09-2022 Estimated GFR (MDRD) Amer 97 mL/min >60 [facility] Comment on above: GFR Calc Estimated GFR (MDRD) Non-Af Amer 80 mL/min >60 [facility] Comment on above: Non- GFR Calc Platelets bldOrdered By: Sherwin Sepulveda on 10-09-2022 Platelets (Bld) [#/Vol] 157 10*3/uL 150-450 [facility] Serum or plasma albumin serge urement (mass/volume)Ordered By: Donato Sepulveda on 10-09-2022 Albumin [Mass/Vol] 3.2 g/dL 3.2-5.0 [facility] Serum or plasma albumin/glob ulin mass ratioOrdered By: Donato Sepulveda on 10-09-2022 Albumin/Globulin [Mass ratio] 1.0 {ratio} 0.9-2.4 [facility] Serum or plasma calcium serge urement (mass/volume)Ordered By: Donato Sepulveda on 10-09-2022 Calcium [Mass/Vol] 9.1 mg/dL 8.5-10.1 [facility] Serum or plasma creatinine m easurement (mass/volume)Ordered By: Donato Sepulveda on 10-09-2022 Creatinine [Mass/Vol] 0.74 mg/dL 0.55-1.02 [facility] Comment on above: The validity of the calculated GFR & GFRAA in patients over 70 years has not been determined. Clinical correlation is essential. Serum or plasma urea nitroge n measurement (mass/volume)Ordered By: Donato Sepulveda on 10-09-2022 Urea nitrogen [Mass/Vol] 10 mg/dL 7-18 [facility] Thin prep Papanicolaou smear with manual screeningOrdered By: Donato Sepulveda on 10-09-2022 Thin prep Papanicolaou smear with manual screening 15 U/L 15-37 [facility] Thin prep Papanicolaou smear with manual screening 3 5-15 [facility] Basophil percentageOrdered B y: Basilio Flores on 10-05-2022 Cholesterol [Mass/Vol] 146 mg/dL <200 [facility] Comment on above: <200 mg/dL Desirable 200-240 mg/dL Borderline >240 mg/dL High Risk Triglyceride [Mass/Vol] 83 mg/dL <199 [facility] Comment on above: The drugs N-Acetylcy steine and Metamizole may falsely depress this assay.Serum Triglycerides Reference Interval Normal <150 mg/dL Borderline high 150 - 199 mg/dL High 200 - 499 mg/dL Very High > or = 500 mg/dL Serum or plasma cholesterol in HDL measurement (mass/volume)Ordered By: Basilio Flores on 10-05-2022 Cholesterol in HDL [Mass/Vol] 69 mg/dL >40 [facility] Comment on above: The drugs N-Acetylcy steine and Metamizole may falsely depress this assay. Reference Range HDL <40 mg/dL Low HDL Cholesterol HDL >or= 60 mg/dL High HDL Cholesterol Serum or plasma cholesterol in VLDL measurement (mass/volume)Ordered By: Basilio Flores on 10-05-2022 Cholesterol in VLDL [Mass/Vol] 17 mg/dL 5-40 [facility] Serum or plasma low density lipoprotein (LDL) cholesterol measurement (mass/volume)Ordered By: Basilio Flores on 10-05-2022 Cholesterol in LDL [Mass/Vol] 60 mg/dL 0-130 [facility] Basophil percentageOrdered B y: Donato Sepulveda on 10-04-2022 Cholesterol [Mass/Vol] 154 mg/dL <200 [facility] Comment on above: <200 mg/dL Desirable 200-240 mg/dL Borderline >240 mg/dL High Risk Triglyceride [Mass/Vol] 72 mg/dL <199 [facility] Comment on above: The drugs N-Acetylcy steine and Metamizole may falsely depress this assay.Serum Triglycerides Reference Interval Normal <150 mg/dL Borderline high 150 - 199 mg/dL High 200 - 499 mg/dL Very High > or = 500 mg/dL Serum or plasma cholesterol in HDL measurement (mass/volume)Ordered By: Donato Sepulveda on 10-04-2022 Cholesterol in HDL [Mass/Vol] 70 mg/dL >40 [facility] Comment on above: The drugs N-Acetylcy steine and Metamizole may falsely depress this assay. Reference Range HDL <40 mg/dL Low HDL Cholesterol HDL >or= 60 mg/dL High HDL Cholesterol Serum or plasma cholesterol in VLDL measurement (mass/volume)Ordered By: Donato Sepulveda on 10-04-2022 Cholesterol in VLDL [Mass/Vol] 14 mg/dL 5-40 [facility] Serum or plasma low density lipoprotein (LDL) cholesterol measurement (mass/volume)Ordered By: Donato Sepulveda on 10-04-2022 Cholesterol in LDL [Mass/Vol] 70 mg/dL 0-130 [facility] No Panel InformationOrdered By: Basilio Flores on 09-04-2022 Vitamin D 25-Hydroxy 54.3 ng/mL [facility] Comment on above: Vitamin D 25(OH) Sta tus Range Deficiency <20 ng/mL (50nmol/L) Insufficiency 20 - 30 ng/mL (50 - 75 nmol/L) Sufficiency 30 - 100 ng/mL (75 - 250 nmol/L) Toxicity >100 ng/mL (>250 nmol/L) Whole blood hemoglobin A1c/t otal hemoglobin ratio (mass fraction)Ordered By: Basilio Flores on 09-04-2022 HbA1c (Bld) [Mass fraction] 10.9 % 3.8-5.6 [facility] Comment on above: Normal < 5.7 % Predi abetic 5.7 - 6.4 % Diabetic >or= 6.5 % Please note range changes. Basophil percentageOrdered B y: Donato Sepulveda on 08-07-2022 Bilirubin [Mass/Vol] 0.60 mg/dL 0.20-1.00 [facility] Comment on above: For patients on eltr ombopag therapy, use of Dimension [place] TBIL is not recommended. Chloride [Moles/Vol] 98 mmol/L 98-107 [facility] Glucose [Mass/Vol] 432 mg/dL 74-106 [facility] Comment on above: Glucose result great er than or equal to 200 mg/dLsuggests DIABETES MELLITUS per A.D.A. criteria. Potassium [Moles/Vol] 3.5 mmol/L 3.5-5.1 [facility] Protein [Mass/Vol] 6.8 g/dL 6.4-8.2 [facility] Sodium [Moles/Vol] 136 mmol/L 136-145 [facility] WBC (Bld) [#/Vol] 4.7 10*3/uL 4.4-11.0 [facility] Blood erythrocytes count (nu mber/volume)Ordered By: Donato Sepulveda on 08-07-2022 RBC (Bld) [#/Vol] 4.19 10*6/uL 4.2-5.4 [facility] Blood hemoglobin measurement (mass/volume)Ordered By: Donato Sepulveda on 08-07-2022 Hemoglobin (Bld) [Mass/Vol] 12.2 g/dL 12.0-15.0 [facility] Blood platelet mean volumeOr dered By: Donato Sepulveda on 08-07-2022 Platelet mean volume (Bld) [Entitic vol] 10.5 fL 6.2-12.0 [facility] Determination of erythrocyte mean corpuscular volume (MCV)Ordered By: Donato Sepulveda on 08-07-2022 MCV (RBC) [Entitic vol] 92.8 fL 81-99 [facility] Hematocrit Auto (Bld) [Volum e fraction]Ordered By: [facility] Hrajitnoris on 08-07-2022 Hematocrit (Bld) [Volume fraction] 38.9 % 37-47 [facility] - Chemistry and C hemistry - challengeOrdered By: [facility] Harjitnoris on 08-07-2022 ALP [Catalytic activity/Vol] 70 U/L 45-117 [facility] ALT [Catalytic activity/Vol] 19 U/L 13-56 [facility] CO2 [Moles/Vol] 36.0 mmol/L 21.0-32.0 [facility] Globulin (S) [Mass/Vol] 3.4 g/dL 2.2-4.2 [facility] Magnesium [Mass/Vol] 1.8 mg/dL 1.6-2.6 [facility] Urea nitrogen/Creatinine [Mass ratio] 15.1 mg/mg 10-20 [facility] - Hematology and Cell countsOrdered By: [facility] on 08-07-2022 Erythrocyte distribution width (RBC) [Entitic vol] 44.1 fL 35.1-43.9 [facility] Erythrocyte distribution width (RBC) [Ratio] 13.0 % 11.6-14.6 [facility] MCH (RBC) [Entitic mass] 29.1 pg 27.0-32.0 [facility] Auto (RBC) [Mass/Vol]Or dered By: Donato Sepulveda on 08-07-2022 MCHC (RBC) [Mass/Vol] 31.4 g/dL 32-36 [facility] No Panel InformationOrdered By: Donato Sepulveda on 08-07-2022 Estimated GFR (MDRD) Amer 64 mL/min >60 [facility] Comment on above: GFR Calc Estimated GFR (MDRD) Non-Af Amer 53 mL/min >60 [facility] Comment on above: Non- GFR Calc Platelets bldOrdered By: Sherwin Sepulveda on 08-07-2022 Platelets (Bld) [#/Vol] 165 10*3/uL 150-450 [facility] Serum or plasma albumin serge urement (mass/volume)Ordered By: Donato Sepulveda on 08-07-2022 Albumin [Mass/Vol] 3.4 g/dL 3.2-5.0 [facility] Serum or plasma albumin/glob ulin mass ratioOrdered By: Donato Sepulveda on 08-07-2022 Albumin/Globulin [Mass ratio] 1.0 {ratio} 0.9-2.4 [facility] Serum or plasma calcium serge urement (mass/volume)Ordered By: Donato Sepulveda on 08-07-2022 Calcium [Mass/Vol] 9.7 mg/dL 8.5-10.1 [facility] Serum or plasma creatinine m easurement (mass/volume)Ordered By: Donato Sepulveda on 08-07-2022 Creatinine [Mass/Vol] 1.06 mg/dL 0.55-1.02 [facility] Comment on above: The validity of the calculated GFR & GFRAA in patients over 70 years has not been determined. Clinical correlation is essential. Serum or plasma urea nitroge n measurement (mass/volume)Ordered By: Donato Sepulveda on 08-07-2022 Urea nitrogen [Mass/Vol] 16 mg/dL 7-18 [facility] Thin prep Papanicolaou smear with manual screeningOrdered By: Donato Sepulveda on 08-07-2022 Thin prep Papanicolaou smear with manual screening 15 U/L 15-37 [facility] Thin prep Papanicolaou smear with manual screening 2 5-15 [facility] Basophil percentageOrdered B y: Basilio Flores on 06-12-2022 Bilirubin [Mass/Vol] 1.10 mg/dL 0.20-1.00 [facility] Comment on above: For patients on eltr ombopag therapy, use of Dimension [place] TBIL is not recommended. Chloride [Moles/Vol] 99 mmol/L 98-107 [facility] Glucose [Mass/Vol] 163 mg/dL 74-106 [facility] Comment on above: Fasting Glucose resu lt greater than or equal to 126 mg/dL suggests DIABETES MELLITUS per A.D.A. criteria. Potassium [Moles/Vol] 3.4 mmol/L 3.5-5.1 [facility] Protein [Mass/Vol] 7.4 g/dL 6.4-8.2 [facility] Sodium [Moles/Vol] 141 mmol/L 136-145 [facility] WBC (Bld) [#/Vol] 8.0 10*3/uL 4.4-11.0 [facility] Blood erythrocytes count (nu mber/volume)Ordered By: Basilio Flores on 06-12-2022 RBC (Bld) [#/Vol] 4.53 10*6/uL 4.2-5.4 [facility] Blood hemoglobin measurement (mass/volume)Ordered By: Basilio Flores on 06-12-2022 Hemoglobin (Bld) [Mass/Vol] 13.2 g/dL 12.0-15.0 [facility] Blood platelet mean volumeOr dered By: Basilio Flores on 06-12-2022 Platelet mean volume (Bld) [Entitic vol] 10.4 fL 6.2-12.0 [facility] Determination of erythrocyte mean corpuscular volume (MCV)Ordered By: Basilio Flores on 06-12-2022 MCV (RBC) [Entitic vol] 90.5 fL 81-99 [facility] Hematocrit Auto (Bld) [Volum e fraction]Ordered By: Basilio Flores on 06-12-2022 Hematocrit (Bld) [Volume fraction] 41.0 % 37-47 [facility] - Chemistry and C hemistry - challengeOrdered By: Basilio Flores on 06-12-2022 ALP [Catalytic activity/Vol] 88 U/L 45-117 [facility] ALT [Catalytic activity/Vol] 20 U/L 13-56 [facility] CO2 [Moles/Vol] 34.0 mmol/L 21.0-32.0 [facility] Globulin (S) [Mass/Vol] 3.7 g/dL 2.2-4.2 [facility] Urea nitrogen/Creatinine [Mass ratio] 15.1 mg/mg 10-20 [facility] - Hematology and Cell countsOrdered By: Basilio Flores on 06-12-2022 Erythrocyte distribution width (RBC) [Entitic vol] 42.0 fL 35.1-43.9 [facility] Erythrocyte distribution width (RBC) [Ratio] 12.8 % 11.6-14.6 [facility] MCH (RBC) [Entitic mass] 29.1 pg 27.0-32.0 [facility] MCHC Auto (RBC) [Mass/Vol]Or dered By: Basilio Flores on 06-12-2022 MCHC (RBC) [Mass/Vol] 32.2 g/dL 32-36 [facility] No Panel InformationOrdered By: Basilio Flores on 06-12-2022 Estimated GFR (MDRD) Amer 82 mL/min >60 [facility] Comment on above: GFR Calc Estimated GFR (MDRD) Non-Af Amer 67 mL/min >60 [facility] Comment on above: Non- GFR Calc Vitamin D 25-Hydroxy 49.1 ng/mL [facility] Comment on above: Vitamin D 25(OH) Sta tus Range Deficiency <20 ng/mL (50nmol/L) Insufficiency 20 - 30 ng/mL (50 - 75 nmol/L) Sufficiency 30 - 100 ng/mL (75 - 250 nmol/L) Toxicity >100 ng/mL (>250 nmol/L) Platelets bldOrdered By: August Flores on 06-12-2022 Platelets (Bld) [#/Vol] 188 10*3/uL 150-450 [facility] Serum or plasma albumin serge urement (mass/volume)Ordered By: Basilio Flores on 06-12-2022 Albumin [Mass/Vol] 3.7 g/dL 3.2-5.0 [facility] Serum or plasma albumin/glob ulin mass ratioOrdered By: Basilio Flores on 06-12-2022 Albumin/Globulin [Mass ratio] 1.0 {ratio} 0.9-2.4 [facility] Serum or plasma calcium serge urement (mass/volume)Ordered By: Basilio Flores on 06-12-2022 Calcium [Mass/Vol] 9.5 mg/dL 8.5-10.1 [facility] Serum or plasma creatinine m easurement (mass/volume)Ordered By: Basilio Flores on 06-12-2022 Creatinine [Mass/Vol] 0.86 mg/dL 0.55-1.02 [facility] Comment on above: The validity of the calculated GFR & GFRAA in patients over 70 years has not been determined. Clinical correlation is essential. Serum or plasma urea nitroge n measurement (mass/volume)Ordered By: Basilio Flores on 06-12-2022 Urea nitrogen [Mass/Vol] 13 mg/dL 7-18 [facility] Thin prep Papanicolaou smear with manual screeningOrdered By: Basilio Flores on 06-12-2022 Thin prep Papanicolaou smear with manual screening 18 U/L 15-37 [facility] Thin prep Papanicolaou smear with manual screening 8 5-15 [facility] Whole blood hemoglobin A1c/t otal hemoglobin ratio (mass fraction)Ordered By: Basilio Flores on 06-12-2022 HbA1c (Bld) [Mass fraction] 9.2 % 3.8-5.6 [facility] Comment on above: Normal < 5.7 % Predi abetic 5.7 - 6.4 % Diabetic >or= 6.5 % Please note range changes. Basophil percentageOrdered B y: Donato Harjitbryan on 04-17-2022 Chloride [Moles/Vol] 97 mmol/L 98-107 [facility] Glucose [Mass/Vol] 328 mg/dL 74-106 [facility] Comment on above: Glucose result great er than or equal to 200 mg/dLsuggests DIABETES MELLITUS per A.D.A. criteria. Potassium [Moles/Vol] 3.6 mmol/L 3.5-5.1 [facility] Sodium [Moles/Vol] 137 mmol/L 136-145 [facility] - Chemistry and C hemistry - challengeOrdered By: Donato Sepulveda on 04-17-2022 CO2 [Moles/Vol] 36.0 mmol/L 21.0-32.0 [facility] Urea nitrogen/Creatinine [Mass ratio] 13.7 mg/mg 10-20 [facility] No Panel InformationOrdered By: Donato Sepulveda on 04-17-2022 Estimated GFR (MDRD) Amer 73 mL/min >60 [facility] Comment on above: GFR Calc Estimated GFR (MDRD) Non-Af Amer 60 mL/min >60 [facility] Comment on above: Non- GFR Calc Serum or plasma calcium serge urement (mass/volume)Ordered By: Donato Sepulveda on 04-17-2022 Calcium [Mass/Vol] 9.5 mg/dL 8.5-10.1 [facility] Serum or plasma creatinine m easurement (mass/volume)Ordered By: Donato Sepulveda on 04-17-2022 Creatinine [Mass/Vol] 0.95 mg/dL 0.55-1.02 [facility] Comment on above: The validity of the calculated GFR & GFRAA in patients over 70 years has not been determined. Clinical correlation is essential. Serum or plasma urea nitroge n measurement (mass/volume)Ordered By: Donato Sepulveda on 04-17-2022 Urea nitrogen [Mass/Vol] 13 mg/dL 7-18 [facility] Thin prep Papanicolaou smear with manual screeningOrdered By: Donato Sepulveda on 04-17-2022 Thin prep Papanicolaou smear with manual screening 4 5-15 [facility] Basophil percentageOrdered B y: Donato Sepulveda on 04-13-2022 Potassium [Moles/Vol] 3.2 mmol/L 3.5-5.1 [facility] Basophil percentageOrdered B y: Basilio Flores on 04-10-2022 Bilirubin [Mass/Vol] 0.50 mg/dL 0.20-1.00 [facility] Comment on above: For patients on eltr ombopag therapy, use of Dimension [place] TBIL is not recommended. Chloride [Moles/Vol] 97 mmol/L 98-107 [facility] Glucose [Mass/Vol] 366 mg/dL 74-106 [facility] Comment on above: Glucose result great er than or equal to 200 mg/dLsuggests DIABETES MELLITUS per A.D.A. criteria. Potassium [Moles/Vol] 3.1 mmol/L 3.5-5.1 [facility] Protein [Mass/Vol] 7.3 g/dL 6.4-8.2 [facility] Sodium [Moles/Vol] 136 mmol/L 136-145 [facility] WBC (Bld) [#/Vol] 6.4 10*3/uL 4.4-11.0 [facility] Blood erythrocytes count (nu mber/volume)Ordered By: Basilio Flores on 04-10-2022 RBC (Bld) [#/Vol] 4.33 10*6/uL 4.2-5.4 [facility] Blood hemoglobin measurement (mass/volume)Ordered By: Basilio Flores on 04-10-2022 Hemoglobin (Bld) [Mass/Vol] 12.7 g/dL 12.0-15.0 [facility] Blood platelet mean volumeOr dered By: Basilio Flores on 04-10-2022 Platelet mean volume (Bld) [Entitic vol] 10.8 fL 6.2-12.0 [facility] Determination of erythrocyte mean corpuscular volume (MCV)Ordered By: Basilio Flores on 04-10-2022 MCV (RBC) [Entitic vol] 91.5 fL 81-99 [facility] Hematocrit Auto (Bld) [Volum e fraction]Ordered By: Basilio Flores on 04-10-2022 Hematocrit (Bld) [Volume fraction] 39.6 % 37-47 [facility] - Chemistry and C hemistry - challengeOrdered By: Basilio Flores on 04-10-2022 ALP [Catalytic activity/Vol] 90 U/L 45-117 [facility] ALT [Catalytic activity/Vol] 24 U/L 13-56 [facility] CO2 [Moles/Vol] 37.0 mmol/L 21.0-32.0 [facility] Globulin (S) [Mass/Vol] 4.0 g/dL 2.2-4.2 [facility] Urea nitrogen/Creatinine [Mass ratio] 14.5 mg/mg 10-20 [facility] - Hematology and Cell countsOrdered By: Basilio Flores on 04-10-2022 Erythrocyte distribution width (RBC) [Entitic vol] 42.4 fL 35.1-43.9 [facility] Erythrocyte distribution width (RBC) [Ratio] 12.6 % 11.6-14.6 [facility] MCH (RBC) [Entitic mass] 29.3 pg 27.0-32.0 [facility] MCHC Auto (RBC) [Mass/Vol]Or dered By: Basilio Flores on 04-10-2022 MCHC (RBC) [Mass/Vol] 32.1 g/dL 32- [facility] No Panel InformationOrdered By: Basilio Flores on 04-10-2022 Estimated GFR (MDRD) Amer 78 mL/min >60 [facility] Comment on above: GFR Calc Estimated GFR (MDRD) Non-Af Amer 64 mL/min >60 [facility] Comment on above: Non- GFR Calc Platelets bldOrdered By: August Flores on 04-10-2022 Platelets (Bld) [#/Vol] 216 10*3/uL 150-450 [facility] Serum or plasma albumin serge urement (mass/volume)Ordered By: Basilio Flores on 04-10-2022 Albumin [Mass/Vol] 3.3 g/dL 3.2-5.0 [facility] Serum or plasma albumin/glob ulin mass ratioOrdered By: Basilio Flores on 04-10-2022 Albumin/Globulin [Mass ratio] 0.8 {ratio} 0.9-2.4 [facility] Serum or plasma calcium serge urement (mass/volume)Ordered By: Basilio Flores on 04-10-2022 Calcium [Mass/Vol] 9.1 mg/dL 8.5-10.1 [facility] Serum or plasma creatinine m easurement (mass/volume)Ordered By: Basilio Flores on 04-10-2022 Creatinine [Mass/Vol] 0.90 mg/dL 0.55-1.02 [facility] Comment on above: The validity of the calculated GFR & GFRAA in patients over 70 years has not been determined. Clinical correlation is essential. Serum or plasma urea nitroge n measurement (mass/volume)Ordered By: Basilio Flores on 04-10-2022 Urea nitrogen [Mass/Vol] 13 mg/dL 7-18 [facility] [facility] Thin prep Papanicolaou smear with manual screeningOrdered By: Basilio Flores on 04-10-2022 Thin prep Papanicolaou smear with manual screening 22 U/L 15-37 [facility] Thin prep Papanicolaou smear with manual screening 2 5-15 [facility] No Panel InformationOrdered By: Basilio Flores on 03-06-2022 Vitamin D 25-Hydroxy 57.1 ng/mL [facility] Comment on above: Vitamin D 25(OH) Sta tus Range Deficiency <20 ng/mL (50nmol/L) Insufficiency 20 - 30 ng/mL (50 - 75 nmol/L) Sufficiency 30 - 100 ng/mL (75 - 250 nmol/L) Toxicity >100 ng/mL (>250 nmol/L) Whole blood hemoglobin A1c/t otal hemoglobin ratio (mass fraction)Ordered By: Basilio Flores on 03-06-2022 HbA1c (Bld) [Mass fraction] 7.4 % 3.8-5.6 [facility] Comment on above: Normal < 5.7 % Predi abetic 5.7 - 6.4 % Diabetic >or= 6.5 % Please note range changes. Basophil percentageon 2021 Bilirubin [Mass/Vol] 0.90 mg/dL 0.20-1.00 [facility] Work Phone: Comment on above: For patients on eltr ombopag therapy, use of Dimension [place] TBIL is not recommended. Chloride [Moles/Vol] 102 mmol/L 98-107 [facility] Work Phone: Glucose [Mass/Vol] 198 mg/dL 74-106 [facility] Work Phone: Comment on above: Fasting Glucose resu lt greater than or equal to 126 mg/dL suggests DIABETES MELLITUS per A.D.A. criteria. Potassium [Moles/Vol] 4.3 mmol/L 3.5-5.1 [facility] Work Phone: Protein [Mass/Vol] 7.3 g/dL 6.4-8.2 [facility] Work Phone: Sodium [Moles/Vol] 140 mmol/L 136-145 [facility] Work Phone: WBC (Bld) [#/Vol] 5.8 10*3/uL 4.4-11.0 [facility] Work Phone: Blood erythrocytes count (nu mber/volume)on 02-06-2022 RBC (Bld) [#/Vol] 4.46 10*6/uL 4.2-5.4 [facility] Work [facility]: Blood hemoglobin measurement (mass/volume)on 02-06-2022 Hemoglobin (Bld) [Mass/Vol] 13.1 g/dL 12.0-15.0 [facility] Work Phone: Blood platelet mean volumeon 02-06-2022 Platelet mean volume (Bld) [Entitic vol] 10.5 fL 6.2-12.0 [facility] Work Phone: Determination of erythrocyte mean corpuscular volume (MCV)on 02-06-2022 MCV (RBC) [Entitic vol] 93.3 fL 81-99 [facility] Work Phone: Hematocrit Auto (Bld) [Volum e fraction]on 02-06-2022 Hematocrit (Bld) [Volume fraction] 41.6 % 37-47 [facility] Work Phone: Laboratory - Chemistry and C hemistry - challengeon 02-06-2022 ALP [Catalytic activity/Vol] 96 U/L 45-117 [facility] Work Phone: ALT [Catalytic activity/Vol] 22 U/L 13-56 [facility] Work Phone: CO2 [Moles/Vol] 32.0 mmol/L 21.0-32.0 [facility] Work Phone: Globulin (S) [Mass/Vol] 3.7 g/dL 2.2-4.2 [facility] Work Phone: Urea nitrogen/Creatinine [Mass ratio] 20.2 mg/mg 10-20 [facility] Work Phone: Laboratory - Hematology and Cell countson 02-06-2022 Erythrocyte distribution width (RBC) [Entitic vol] 46.5 fL 35.1-43.9 [facility] Work Phone: Erythrocyte distribution width (RBC) [Ratio] 13.5 % 11.6-14.6 [facility] Work Phone: MCH (RBC) [Entitic mass] 29.4 pg 27.0-32.0 [facility] Work Phone: MCHC Auto (RBC) [Mass/Vol]on 02-06-2022 MCHC (RBC) [Mass/Vol] 31.5 g/dL 32-36 [facility] Work Phone: No Panel Informationon 02-06 Estimated GFR (MDRD) Amer 66 mL/min >60 [facility] Work Phone: Comment on above: GFR Calc Estimated GFR (MDRD) Non-Af Amer 54 mL/min >60 [facility] Work Phone: Comment on above: Non- GFR Calc Platelets bldon 02-06-2022 Platelets (Bld) [#/Vol] 176 10*3/uL 150-450 [facility] Work Phone: Serum or plasma albumin serge urement (mass/volume)on 02-06-2022 Albumin [Mass/Vol] 3.6 g/dL 3.2-5.0 [facility] Work Phone: Serum or plasma albumin/glob ulin mass ratioon 02-06-2022 Albumin/Globulin [Mass ratio] 1.0 {ratio} 0.9-2.4 [facility] Work Phone: Serum or plasma calcium serge urement (mass/volume)on 02-06-2022 Calcium [Mass/Vol] 9.5 mg/dL 8.5-10.1 [facility] Work Phone: Serum or plasma creatinine m easurement (mass/volume)on 02-06-2022 Creatinine [Mass/Vol] 1.04 mg/dL 0.55-1.02 [facility] Work Phone: Comment on above: The validity of the calculated GFR & GFRAA in patients over 70 years has not been determined. Clinical correlation is essential. Serum or plasma urea nitroge n measurement (mass/volume)on 02-06-2022 Urea nitrogen [Mass/Vol] 21 mg/dL 7-18 [facility] Work Phone: Thin prep Papanicolaou smear with manual screeningon 02-06-2022 Thin prep Papanicolaou smear with manual screening 20 U/L 15-37 [facility] Work Phone: Thin prep Papanicolaou smear with manual screening 6 5-15 [facility] Work Phone: Basophil percentageon 2021 Bilirubin [Mass/Vol] 0.50 mg/dL 0.20-1.00 [facility] Work Phone: Comment on above: For patients on eltr ombopag therapy, use of [employer] [place] TBIL is not recommended. Chloride [Moles/Vol] 106 mmol/L 98-107 [facility] Work Phone: Glucose [Mass/Vol] 149 mg/dL 74-106 [facility] Work Phone: Comment on above: Fasting Glucose resu lt greater than or equal to 126 mg/dL suggests DIABETES MELLITUS per A.D.A. criteria. Potassium [Moles/Vol] 3.6 mmol/L 3.5-5.1 [facility] Work Phone: Protein [Mass/Vol] 6.7 g/dL 6.4-8.2 [facility] Work Phone: Sodium [Moles/Vol] 142 mmol/L 136-145 [facility] Work Phone: WBC (Bld) [#/Vol] 6.0 10*3/uL 4.4-11.0 [facility] Work Phone: Blood erythrocytes count (nu mber/volume)on 12-05-2021 RBC (Bld) [#/Vol] 4.12 10*6/uL 4.2-5.4 [facility] Work Phone: Blood hemoglobin measurement (mass/volume)on 12-05-2021 Hemoglobin (Bld) [Mass/Vol] 11.9 g/dL 12.0-15.0 [facility] Work Phone: Blood platelet mean volumeon 12-05-2021 Platelet mean volume (Bld) [Entitic vol] 10.9 fL 6.2-12.0 [facility] Work Phone: Determination of erythrocyte mean corpuscular volume (MCV)on 12-05-2021 MCV (RBC) [Entitic vol] 92.5 fL 81-99 [facility] Work Phone: Hematocrit Auto (Bld) [Volum e fraction]on 12-05-2021 Hematocrit (Bld) [Volume fraction] 38.1 % 37-47 [facility] Work Phone: Laboratory - Chemistry and C hemistry - challengeon 12-05-2021 ALP [Catalytic activity/Vol] 86 U/L 45-117 [facility] Work Phone: ALT [Catalytic activity/Vol] 17 U/L 13-56 [facility] Work Phone: CO2 [Moles/Vol] 34.0 mmol/L 21.0-32.0 [facility] Work Phone: Globulin (S) [Mass/Vol] 3.6 g/dL 2.2-4.2 [facility] Work Phone: Urea nitrogen/Creatinine [Mass ratio] 14.5 mg/mg 10-20 [facility] Work Phone: Laboratory - Hematology and Cell countson 12-05-2021 Erythrocyte distribution width (RBC) [Entitic vol] 45.8 fL 35.1-43.9 [facility] Work Phone: Erythrocyte distribution width (RBC) [Ratio] 13.4 % 11.6-14.6 [facility] Work Phone: MCH (RBC) [Entitic mass] 28.9 pg 27.0-32.0 [facility] Work Phone: MCHC Auto (RBC) [Mass/Vol]on 12-05-2021 MCHC (RBC) [Mass/Vol] 31.2 g/dL 32-36 [facility] Work [facility]: No Panel Informationon 12-05 Estimated GFR (MDRD) Amer 78 mL/min >60 [facility] Work Phone: Comment on above: GFR Calc Estimated GFR (MDRD) Non-Af Amer 64 mL/min >60 [facility] Work Phone: Comment on above: Non- GFR Calc Vitamin D 25-Hydroxy 90.8 ng/mL [facility] Work Phone: Comment on above: Vitamin D 25(OH) Sta tus Range Deficiency <20 ng/mL (50nmol/L) Insufficiency 20 - 30 ng/mL (50 - 75 nmol/L) Sufficiency 30 - 100 ng/mL (75 - 250 nmol/L) Toxicity >100 ng/mL (>250 nmol/L) Platelets bldon 12-05-2021 Platelets (Bld) [#/Vol] 162 10*3/uL 150-450 [facility] Work Phone: Serum or plasma albumin serge urement (mass/volume)on 12-05-2021 Albumin [Mass/Vol] 3.1 g/dL 3.2-5.0 [facility] Work Phone: Serum or plasma albumin/glob ulin mass ratioon 12-05-2021 Albumin/Globulin [Mass ratio] 0.9 {ratio} 0.9-2.4 [facility] Work Phone: Serum or plasma calcium serge urement (mass/volume)on 12-05-2021 Calcium [Mass/Vol] 9.3 mg/dL 8.5-10.1 [facility] Work Phone: Serum or plasma creatinine m easurement (mass/volume)on 12-05-2021 Creatinine [Mass/Vol] 0.90 mg/dL 0.55-1.02 [facility] Work Phone: Comment on above: The validity of the calculated GFR & GFRAA in patients over 70 years has not been determined. Clinical correlation is essential. Serum or plasma urea nitroge n measurement (mass/volume)on 12-05-2021 Urea nitrogen [Mass/Vol] 13 mg/dL 7-18 [facility] Work Phone: Thin prep Papanicolaou smear with manual screeningon 12-05-2021 Thin prep Papanicolaou smear with manual screening 18 U/L 15-37 [facility] Work Phone: Thin prep Papanicolaou smear with manual screening 2 5-15 [facility] Work Phone: Whole blood hemoglobin A1c/t otal hemoglobin ratio (mass fraction)on 12-05-2021 HbA1c (Bld) [Mass fraction] 7.4 % 3.8-5.6 [facility] Work Phone: Comment on above: Normal < 5.7 % Predi abetic 5.7 - 6.4 % Diabetic >or= 6.5 % Please note range changes. Whole blood hemoglobin A1c/t otal hemoglobin ratio (mass fraction)on 11-14-2021 HbA1c (Bld) [Mass fraction] 8.5 % 3.8-5.6 [facility] Work Phone: Comment on above: Normal < 5.7 % Predi abetic 5.7 - 6.4 % Diabetic >or= 6.5 % Please note range changes. Whole blood hemoglobin A1c/t otal hemoglobin ratio (mass fraction)on 10-17-2021 HbA1c (Bld) [Mass fraction] 7.7 % 3.8-5.6 [facility] Work Phone: Comment on above: Normal < 5.7 % Predi abetic 5.7 - 6.4 % Diabetic >or= 6.5 % Please note range changes. Basophil percentageon 2021 Bilirubin [Mass/Vol] 0.40 mg/dL 0.20-1.00 [facility] Work Phone: Comment on above: For patients on eltr ombopag therapy, use of [employer] [place] TBIL is not recommended. Chloride [Moles/Vol] 105 mmol/L 98-107 [facility] Work Phone: Cholesterol [Mass/Vol] 130 mg/dL <200 [facility] Work Phone: Comment on above: <200 mg/dL Desirable 200-240 mg/dL Borderline >240 mg/dL High Risk Glucose [Mass/Vol] 127 mg/dL 74-106 [facility] Work Phone: Comment on above: Fasting Glucose resu lt greater than or equal to 126 mg/dL suggests DIABETES MELLITUS per A.D.A. criteria. Potassium [Moles/Vol] 3.7 mmol/L 3.5-5.1 [facility] Work Phone: Protein [Mass/Vol] 6.4 g/dL 6.4-8.2 [facility] Work Phone: Sodium [Moles/Vol] 145 mmol/L 136-145 [facility] Work Phone: Triglyceride [Mass/Vol] 77 mg/dL <199 [facility] Work Phone: Comment on above: The drugs N-Acetylcy steine and Metamizole may falsely depress this assay.Serum Triglycerides Reference Interval Normal <150 mg/dL Borderline high 150 - 199 mg/dL High 200 - 499 mg/dL Very High > or = 500 mg/dL WBC (Bld) [#/Vol] 5.7 10*3/uL 4.4-11.0 [facility] Work Phone: Blood erythrocytes count (nu mber/volume)on 10-05-2021 RBC (Bld) [#/Vol] 4.01 10*6/uL 4.2-5.4 [facility] Work Phone: Blood hemoglobin measurement (mass/volume)on 10-05-2021 Hemoglobin (Bld) [Mass/Vol] 11.5 g/dL 12.0-15.0 [facility] Work Phone: Blood platelet mean volumeon 10-05-2021 Platelet mean volume (Bld) [Entitic vol] 11.3 fL 6.2-12.0 [facility] Work Phone: Determination of erythrocyte mean corpuscular volume (MCV)on 10-05-2021 MCV (RBC) [Entitic vol] 93.3 fL 81-99 [facility] Work Phone: Hematocrit Auto (Bld) [Volum e fraction]on 10-05-2021 Hematocrit (Bld) [Volume fraction] 37.4 % 37-47 [facility] Work Phone: Laboratory - Chemistry and C hemistry - challengeon 10-05-2021 ALP [Catalytic activity/Vol] 80 U/L 45-117 [facility] Work Phone: ALT [Catalytic activity/Vol] 16 U/L 13-56 [facility] Work Phone: CO2 [Moles/Vol] 29.0 mmol/L 21.0-32.0 [facility] Work Phone: Globulin (S) [Mass/Vol] 3.1 g/dL 2.2-4.2 [facility] Work Phone: Urea nitrogen/Creatinine [Mass ratio] 17.1 mg/mg 10-20 [facility] Work Phone: Laboratory - Hematology and Cell countson 10-05-2021 Erythrocyte distribution width (RBC) [Entitic vol] 44.9 fL 35.1-43.9 [facility] Work Phone: Erythrocyte distribution width (RBC) [Ratio] 13.2 % 11.6-14.6 [facility] Work Phone: MCH (RBC) [Entitic mass] 28.7 pg 27.0-32.0 [facility] Work Phone: MCHC Auto (RBC) [Mass/Vol]on 10-05-2021 MCHC (RBC) [Mass/Vol] 30.7 g/dL 32-36 [facility] Work Phone: No Panel Informationon 10-05 Estimated GFR (MDRD) Amer 65 mL/min >60 [facility] Work Phone: Comment on above: GFR Calc Estimated GFR (MDRD) Non-Af Amer 54 mL/min >60 [facility] Work Phone: Comment on above: Non- GFR Calc Platelets bldon 10-05-2021 Platelets (Bld) [#/Vol] 164 10*3/uL 150-450 [facility] Work Phone: Serum or plasma albumin serge urement (mass/volume)on 10-05-2021 Albumin [Mass/Vol] 3.3 g/dL 3.2-5.0 [facility] Work Phone: Serum or plasma albumin/glob ulin mass ratioon 10-05-2021 Albumin/Globulin [Mass ratio] 1.1 {ratio} 0.9-2.4 [facility] Work Phone: Serum or plasma calcium serge urement (mass/volume)on 10-05-2021 Calcium [Mass/Vol] 8.8 mg/dL 8.5-10.1 [facility] Work Phone: Serum or plasma cholesterol in HDL measurement (mass/volume)on 10-05-2021 Cholesterol in HDL [Mass/Vol] 47 mg/dL >40 [facility] Work Phone: Comment on above: The drugs N-Acetylcy steine and Metamizole may falsely depress this assay. Reference Range HDL <40 mg/dL Low HDL Cholesterol HDL >or= 60 mg/dL High HDL Cholesterol Serum or plasma cholesterol in VLDL measurement (mass/volume)on 10-05-2021 Cholesterol in VLDL [Mass/Vol] 15 mg/dL 5-40 [facility] Work Phone: Serum or plasma creatinine m easurement (mass/volume)on 10-05-2021 Creatinine [Mass/Vol] 1.05 mg/dL 0.55-1.02 [facility] Work Phone: Comment on above: The validity of the calculated GFR & GFRAA in patients over 70 years has not been determined. Clinical correlation is essential. Serum or plasma low density lipoprotein (LDL) cholesterol measurement (mass/volume)on 10-05-2021 Cholesterol in LDL [Mass/Vol] 68 mg/dL 0-130 [facility] Work Phone: Serum or plasma urea nitroge n measurement (mass/volume)on 10-05-2021 Urea nitrogen [Mass/Vol] 18 mg/dL 7-18 [facility] Work Phone: Thin prep Papanicolaou smear with manual screeningon 10-05-2021 Thin prep Papanicolaou smear with manual screening 18 U/L 15-37 [facility] Work Phone: Thin prep Papanicolaou smear with manual screening 11 5-15 [facility] Work Phone: No Panel Informationon 09-05 Vitamin D 25-Hydroxy 44.4 ng/mL [facility] Work Phone: Comment on above: Vitamin D 25(OH) Sta tus Range Deficiency <20 ng/mL (50nmol/L) Insufficiency 20 - 30 ng/mL (50 - 75 nmol/L) Sufficiency 30 - 100 ng/mL (75 - 250 nmol/L) Toxicity >100 ng/mL (>250 nmol/L) Whole blood hemoglobin A1c/t otal hemoglobin ratio (mass fraction)on 09-05-2021 HbA1c (Bld) [Mass fraction] 8.3 % 3.8-5.6 [facility] Work Phone: Comment on above: Normal < 5.7 % Predi abetic 5.7 - 6.4 % Diabetic >or= 6.5 % Please note range changes. Basophil percentageon 2021 Bilirubin [Mass/Vol] 0.40 mg/dL 0.20-1.00 [facility] Work Phone: Comment on above: For patients on eltr ombopag therapy, use of [employer] [place] TBIL is not recommended. Chloride [Moles/Vol] 102 mmol/L 98-107 [facility] Work Phone: Glucose [Mass/Vol] 358 mg/dL 74-106 [facility] Work Phone: Comment on above: Glucose result great er than or equal to 200 mg/dLsuggests DIABETES MELLITUS per A.D.A. criteria. Potassium [Moles/Vol] 3.3 mmol/L 3.5-5.1 [facility] Work Phone: Protein [Mass/Vol] 6.8 g/dL 6.4-8.2 [facility] Work Phone: Sodium [Moles/Vol] 139 mmol/L 136-145 [facility] Work Phone: WBC (Bld) [#/Vol] 5.6 10*3/uL 4.4-11.0 [facility] Work Phone: Blood erythrocytes count (nu mber/volume)on 08-08-2021 RBC (Bld) [#/Vol] 3.99 10*6/uL 4.2-5.4 [facility] Work Phone: Blood hemoglobin measurement (mass/volume)on 08-08-2021 Hemoglobin (Bld) [Mass/Vol] 11.5 g/dL 12.0-15.0 [facility] Work Phone: Blood platelet mean volumeon 08-08-2021 Platelet mean volume (Bld) [Entitic vol] 11.0 fL 6.2-12.0 [facility] Work Phone: Determination of erythrocyte mean corpuscular volume (MCV)on 08-08-2021 MCV (RBC) [Entitic vol] 91.7 fL 81-99 [facility] Work Phone: Hematocrit Auto (Bld) [Volum e fraction]on 08-08-2021 Hematocrit (Bld) [Volume fraction] 36.6 % 37-47 [facility] Work Phone: Laboratory - Chemistry and C hemistry - challengeon 08-08-2021 ALP [Catalytic activity/Vol] 85 U/L 45-117 [facility] Work Phone: ALT [Catalytic activity/Vol] 17 U/L 13-56 [facility] Work Phone: CO2 [Moles/Vol] 33.0 mmol/L 21.0-32.0 [facility] Work Phone: Globulin (S) [Mass/Vol] 3.8 g/dL 2.2-4.2 [facility] Work Phone: Urea nitrogen/Creatinine [Mass ratio] 12.7 mg/mg 10-20 [facility] Work Phone: Laboratory - Hematology and Cell countson 08-08-2021 Erythrocyte distribution width (RBC) [Entitic vol] 43.0 fL 35.1-43.9 [facility] Work Phone: Erythrocyte distribution width (RBC) [Ratio] 12.7 % 11.6-14.6 [facility] Work Phone: MCH (RBC) [Entitic mass] 28.8 pg 27.0-32.0 [facility] Work Phone: MCHC Auto (RBC) [Mass/Vol]on 08-08-2021 MCHC (RBC) [Mass/Vol] 31.4 g/dL 32-36 [facility] Work Phone: No Panel Informationon 08-08 Estimated GFR (MDRD) Amer 67 mL/min >60 [facility] Work Phone: Comment on above: GFR Calc Estimated GFR (MDRD) Non-Af Amer 56 mL/min >60 [facility] Work Phone: Comment on above: Non- GFR Calc Platelets bldon 08-08-2021 Platelets (Bld) [#/Vol] 155 10*3/uL 150-450 [facility] Work Phone: Serum or plasma albumin serge urement (mass/volume)on 08-08-2021 Albumin [Mass/Vol] 3.0 g/dL 3.2-5.0 [facility] Work Phone: Serum or plasma albumin/glob ulin mass ratioon 08-08-2021 Albumin/Globulin [Mass ratio] 0.8 {ratio} 0.9-2.4 [facility] Work Phone: Serum or plasma calcium serge urement (mass/volume)on 08-08-2021 Calcium [Mass/Vol] 9.3 mg/dL 8.5-10.1 [facility] Work Phone: Serum or plasma creatinine m easurement (mass/volume)on 08-08-2021 Creatinine [Mass/Vol] 1.02 mg/dL 0.55-1.02 [facility] Work Phone: Comment on above: The validity of the calculated GFR & GFRAA in patients over 70 years has not been determined. Clinical correlation is essential. Serum or plasma urea nitroge n measurement (mass/volume)on 08-08-2021 Urea nitrogen [Mass/Vol] 13 mg/dL 7-18 [facility] Work Phone: Thin prep Papanicolaou smear with manual screeningon 08-08-2021 Thin prep Papanicolaou smear with manual screening 15 U/L 15-37 [facility] Work Phone: Thin prep Papanicolaou smear with manual screening 4 5-15 [facility] Work Phone: Basophil percentageon 2021 Basophil percentage 3.6 mg/dL 2.5-4.9 [facility] Work [facility]: Chloride [Moles/Vol] 99 mmol/L 98-[address] [facility] Work Phone: Glucose [Mass/Vol] 311 mg/dL 74-106 [facility] Work Phone: Comment on above: Glucose result great er than or equal to 200 mg/dLsuggests DIABETES MELLITUS per A.D.A. criteria. Potassium [Moles/Vol] 3.7 mmol/L 3.5-5.1 [facility] [facility] Work Phone: Sodium [Moles/Vol] 139 mmol/L 136-145 [facility] Work Phone: WBC (Bld) [#/Vol] 6.1 10*3/uL 4.4-11.0 [facility] Work Phone: Blood erythrocytes count (nu mber/volume)on 07-12-2021 RBC (Bld) [#/Vol] 4.40 10*6/uL 4.2-5.4 [facility] Work Phone: Blood hemoglobin measurement (mass/volume)on 07-12-2021 Hemoglobin (Bld) [Mass/Vol] 12.5 g/dL 12.0-15.0 [facility] Work Phone: Blood platelet mean volumeon 07-12-2021 Platelet mean volume (Bld) [Entitic vol] 11.0 fL 6.2-12.0 [facility] Work Phone: Determination of erythrocyte mean corpuscular volume (MCV)on 07-12-2021 MCV (RBC) [Entitic vol] 90.7 fL 81-99 [facility] Work Phone: Hematocrit Auto (Bld) [Volum e fraction]on 07-12-2021 Hematocrit (Bld) [Volume fraction] 39.9 % 37-47 [facility] Work Phone: Laboratory - Chemistry and C hemistry - challengeon 07-12-2021 CO2 [Moles/Vol] 34.0 mmol/L 21.0-32.0 [facility] Work Phone: Urea nitrogen/Creatinine [Mass ratio] 14.2 mg/mg 10-20 [facility] Work Phone: Laboratory - Hematology and Cell countson 07-12-2021 Erythrocyte distribution width (RBC) [Entitic vol] 42.3 fL 35.1-43.9 [facility] Work Phone: Erythrocyte distribution width (RBC) [Ratio] 12.8 % 11.6-14.6 [facility] Work Phone: MCH (RBC) [Entitic mass] 28.4 pg 27.0-32.0 [facility] Work Phone: MCHC Auto (RBC) [Mass/Vol]on 07-12-2021 MCHC (RBC) [Mass/Vol] 31.3 g/dL 32-36 [facility] Work Phone: No Panel Informationon 07-12 Estimated GFR (MDRD) Amer 64 mL/min >60 [facility] Work Phone: Comment on above: GFR Calc Estimated GFR (MDRD) Non-Af Amer 53 mL/min >60 [facility] Work Phone: Comment on above: Non- GFR Calc Parathyroid Hormone (Intact) 38.0 pg/mL 18.4-80.1 [facility] Work Phone: Vitamin D 25-Hydroxy 10.0 ng/mL [facility] Work Phone: Comment on above: Vitamin D 25(OH) Sta tus Range Deficiency <20 ng/mL (50nmol/L) Insufficiency 20 - 30 ng/mL (50 - 75 nmol/L) Sufficiency 30 - 100 ng/mL (75 - 250 nmol/L) Toxicity >100 ng/mL (>250 nmol/L) Platelets bldon 07-12-2021 Platelets (Bld) [#/Vol] 188 10*3/uL 150-450 [facility] Work Phone: Serum or plasma albumin serge urement (mass/volume)on 07-12-2021 Albumin [Mass/Vol] 3.2 g/dL 3.2-5.0 [facility] Work Phone: Serum or plasma calcium serge urement (mass/volume)on 07-12-2021 Calcium [Mass/Vol] 9.8 mg/dL 8.5-10.1 [facility] Work Phone: Serum or plasma creatinine m easurement (mass/volume)on 07-12-2021 Creatinine [Mass/Vol] 1.06 mg/dL 0.55-1.02 [facility] Work Phone: Comment on above: The validity of the calculated GFR & GFRAA in patients over 70 years has not been determined. Clinical correlation is essential. Serum or plasma urea nitroge n measurement (mass/volume)on 07-12-2021 Urea nitrogen [Mass/Vol] 15 mg/dL 7-18 [facility] Work Phone: Clinical Summary: HMSPatient IDon 03-16-2019 OOP Camryn Ng [facility] Work Phone: Office Visit: New - 1st visi t with practice, Rm: PT2on 03-16-2019 NEGATED: Highlighted rowMRI (magnetic resonance imaging) history of the cervical spine on 11/24/2018 at [facility] Work Phone: NEGATED: Highlighted rowTobacco smoking status NHIS Tobacco smoking status NHIS [facility] Work Phone: Vital Signs Date Time Vital Sign Value Performing Clinician Facility 10-20-2024 18:22-0400 Diastolic blood pressure 78 mm[Hg] Dr. Basilio Flores MD Work Phone: [facility] 10-20-2024 18:22-0400 Heart rate 72 /min Dr. Basilio Flores MD Work Phone: [facility] 10-20-2024 18:22-0400 Respiratory rate 18 /min Dr. Basilio Flores MD Work Phone: [facility] 10-20-2024 18:22-0400 SaO2% (BldA) [Mass fraction] 94 % Dr. Basilio Flores MD Work Phone: [facility] 10-20-2024 18:22-0400 Systolic blood pressure 164 mm[Hg] Dr. Basilio Flores MD Work Phone: [facility] 10-20-2024 12:21-0400 Body temperature 97.9 [degF] Dr. Basilio Flores MD Work Phone: 3(174)467-361230 [place] [address] 10-20-2024 03:45-0400 Body mass index (BMI) [Ratio] 19.7 kg/m2 Dr. Basilio Flores MD Work Phone: 2(392)549-624130 [place] [address] 10-20-2024 03:45-0400 Body weight 52.[address] Basilio Flores MD Work Phone: 7(269)046-228230 [place] [address] 10-19-2024 10:15-0400 Body height 162.[address] Basilio Flores MD Work Phone: 0(012)131-840830 [place] [address] 10-18-2024 21:51-0400 Body temperature 97.8 [degF] Dr. Basilio Flores MD Work Phone: 3(995)553-482730 [place] [address] 10-18-2024 21:51-0400 Diastolic blood pressure 75 mm[Hg] Dr. Basilio Flores MD Work Phone: 8(549)479-829330 [place] [address] 10-18-2024 21:51-0400 Heart rate 83 /min Dr. Basilio Flores MD Work Phone: 4(647)866-773130 [place] [address] 10-18-2024 21:51-0400 Respiratory rate 16 /min Dr. Basilio Flores MD Work Phone: 9(786)179-984730 [place] [address] 10-18-2024 21:51-0400 SaO2% (BldA) [Mass fraction] 94 % Dr. Basilio Flores MD Work Phone: 5(782)548-646130 [place] [address] 10-18-2024 21:51-0400 Systolic blood pressure 169 mm[Hg] Dr. Basilio Flores MD Work Phone: 7(042)656-509330 [place] [address] 10-18-2024 16:46-0400 Body height 157.[address] Basilio Flores MD Work Phone: 0(914)063-423930 [place] [address] 10-18-2024 16:46-0400 Body mass index (BMI) [Ratio] 22.6 kg/m2 Dr. Basilio Flores MD Work Phone: 5(233)970-292730 [place] [address] 10-18-2024 16:46-0400 Body weight 56.[address] Basilio Flroes MD Work Phone: 4(090)073-879330 [place] [address] 08-24-2024 09:43-0400 Body temperature 98.9 [degF] Dr. Basilio Flores MD Work Phone: 6(516)099-275430 [place] [address] 08-24-2024 09:43-0400 Diastolic blood pressure 69 mm[Hg] Dr. Basilio Flores MD Work Phone: 3(645)198-855430 [place] [address] 08-24-2024 09:43-0400 Heart rate 72 /min Dr. Basilio Flores MD Work Phone: 3(859)620-363430 [place] [address] 08-24-2024 09:43-0400 Respiratory rate 16 /min Dr. Basilio Flores MD Work Phone: 7(327)176-007130 [place] [address] 08-24-2024 09:43-0400 SaO2% (BldA) [Mass fraction] 98 % Dr. Basilio Flores MD Work Phone: 0(747)348-430430 [place] [address] 08-24-2024 09:43-0400 Systolic blood pressure 149 mm[Hg] Dr. Basilio Flores MD Work Phone: 0(000)538-289830 [place] [address] 08-24-2024 08:47-0400 Body height 157.[address] Basilio Flores MD Work Phone: 7(320)197-482830 [place] [address] 08-24-2024 08:47-0400 Body mass index (BMI) [Ratio] 22.1 kg/m2 Dr. Basilio Flores MD Work Phone: 2(687)460-295930 [place] [address] 08-24-2024 08:47-0400 Body weight [address] Basilio Flores MD Work Phone: 7(976)910-442630 [place] [address] 06-08-2023 09:40-0500 Diastolic blood pressure 77 mm[Hg] Dr. Basilio Flores Work Phone: 4(691)341-744530 [place] [address] 06-08-2023 09:40-0500 Heart rate 82 /min Dr. Basilio Flores Work Phone: 8(412)206-571730 [place] [address] 06-08-2023 09:40-0500 Respiratory rate 16 /min Dr. Basilio Flores Work Phone: 7(085)204-766130 [place] [address] 06-08-2023 09:40-0500 SaO2% (BldA) [Mass fraction] 98 % Dr. Basilio Flores Work Phone: 8(380)651-535830 [place] [address] 06-08-2023 09:40-0500 Systolic blood pressure 135 mm[Hg] Dr. Basilio Flores Work Phone: 8(801)514-885530 [place] [address] 06-08-2023 08:04-0500 Body height 157.[address] Basilio Flores Work Phone: 7(163)432-752330 [place] [address] 06-08-2023 08:04-0500 Body mass index (BMI) [Ratio] 25.7 kg/m2 Dr. Basilio Flores Work Phone: 4(366)002-052130 [place] [address] 06-08-2023 08:04-0500 Body temperature 97.9 [degF] Dr. Basilio Flores Work Phone: 1(813)453-051330 [place] [address] 06-08-2023 08:04-0500 Body weight 63.[address] Basilio Flores Work Phone: 0(149)745-114430 [place] [address] 06-05-2023 08:33-0500 Diastolic blood pressure 67 mm[Hg] Dr. Basilio Flores Work Phone: 3(652)265-960130 [place] [address] 06-05-2023 08:33-0500 Heart rate 81 /min Dr. Basilio Flores Work Phone: 1(043)507-730130 [place] [address] 06-05-2023 08:33-0500 Respiratory rate 16 /min Dr. Basilio Flores Work Phone: 2(044)139-415030 [place] [address] 06-05-2023 08:33-0500 SaO2% (BldA) [Mass fraction] 93 % Dr. Basilio Flores Work Phone: 1(995)928-432830 [place] [address] 06-05-2023 08:33-0500 Systolic blood pressure 142 mm[Hg] Dr. Basilio Flores Work Phone: 9(984)798-472730 [place] [address] 06-05-2023 03:42-0500 Body height 162.[address] Basilio Flores Work Phone: 3(619)165-997630 [place] [address] 06-05-2023 03:42-0500 Body mass index (BMI) [Ratio] 23.9 kg/m2 Dr. Basilio Flores Work Phone: 8(282)893-133430 [place] [address] 06-05-2023 03:42-0500 Body temperature 97.6 [degF] Dr. Basilio Flores Work Phone: 0(956)593-649930 [place] [address] 06-05-2023 03:42-0500 Body weight 63.[address] Basilio Flores Work Phone: [facility] NEGATED: Highlighted [id number] 14:06-0500 BMI (Body Mass Index) 44.85 kg/m2 Arcenio Sitko AT [facility] Work Phone: NEGATED: Highlighted [id number] 14:06-0500 Body weight 102.06 kg Arcenio Sitko AT [facility] Work Phone: NEGATED: Highlighted [id number] 14:06-0500 Body weight 102 kg Arcenio Sitko AT [facility] Work Phone: NEGATED: Highlighted [id number] 14:06-0500 BP Diastolic 68 mm[Hg] Arcenio Sitko AT [facility] Work Phone: NEGATED: Highlighted [id number] 14:06-0500 BP Systolic 124 mm[Hg] Arcenio Sitko AT [facility] Work Phone: NEGATED: Highlighted [id number] 14:06-0500 Height 151.13 cm Arcenio Sitko AT [facility] Work Phone: NEGATED: Highlighted [id number] 14:06-0500 Height 151 cm Arcenio Sitko AT [facility] Work Phone: NEGATED: Highlighted [id number] 14:06-0500 Pulse (Heart Rate) 101 /min Arcenio Moreira AT [facility] Work Phone: Encounters Encounter Date Encounter Type Care Provider Facility Start: 12-08-2024 ambulatory Efewongbe Oleghe Facili ty:[facility] Start: 12-08-2024 Registered Referred Donato Sepulveda MD [facility] Start: 11-17-2024 ambulatory Efewdyanbe Oleghe Facili ty:[facility] Start: 11-17-2024 [facility] Start: 11-10-2024 End: 11-10-[address] Armando Rich MD Work Phone: [facility] Start: 11-10-2024 End: 11-10-[address] Donato Sepulveda MD -[facility] Work Phone: Start: 10-21-2024 End: 10-21-[address] Donato Sepulveda MD Work Phone: [facility] Start: 10-21-2024 End: 10-21-2024 Patient encounter procedure Debora Schneider NP-C -[facility] Work Phone: Start: 10-20-2024 Non-patient / Non-visit Dr. Yadi Lam MD -[facility] Work Phone: Start: 10-19-2024 Non-patient / Non-visit Dr. Yadi Lam MD -[facility] Work Phone: Start: 10-18-2024 ambulatory Anali Coello Facility:[facility] Start: 10-18-2024 End: 10-20-2024 Evaluation and management of inpatient Dr. Anali Coello DO -[facility] Work Phone: Start: 10-06-2024 ambulatory Donato Davidi ty:[facility] Start: 10-06-2024 Registered Referred Donato Sepulveda MD [facility] Start: 09-15-2024 End: 09-15-[address] Donato Sepulveda MD Work Phone: [facility] Start: 09-15-2024 End: 09-15-[address] Donato Sepulveda MD -[facility] Work Phone: Start: 09-08-2024 End: 09-08-[address] Basilio Flores MD Work Phone: [facility] Work Phone: Start: 09-08-2024 End: 09-08-2024 Departed Referred Donato Sepulveda MD -[facility] Start: 09-08-2024 Registered Referred Donato Sepulveda MD -[facility] Start: 09-08-2024 End: 09-08-2024 ambulatory [facility] Facility:[facility] Start: 08-25-2024 End: 08-25-[address] Basilio Flores MD Work Phone: [facility] Work Phone: Start: 08-25-2024 End: 08-25-2024 Departed Referred Donato Sepulveda MD -[facility] Start: 08-24-2024 End: 08-24-2024 Admission to same day surgery center Dr. Armando Rich MD -[facility] Start: 08-24-2024 End: 08-25-[address] Basilio Flores MD Work Phone: [facility] Work Phone: Start: 08-17-2024 End: 08-17-2024 ambulatory [facility] Start: 08-17-2024 End: 08-17-2024 Patient encounter procedure Debora DOW -[facility] Work Phone: Start: 07-15-2024 End: 07-15-[address] Basilio Flores MD Work Phone: [facility] Work Phone: Start: 07-15-2024 End: 07-15-2024 Departed Referred Donato Sepulveda MD [facility] Start: 07-14-2024 End: 07-14-[address] Donato Sepulveda MD -[facility] Work Phone: Start: 07-14-2024 End: 07-15-[address] Basilio Flores MD Work Phone: [facility] Work Phone: Start: 07-14-2024 End: 07-14-2024 [facility] Start: 07-14-[facility]24 [facility] Start: 07-14-2024 End: 07-14-2024 ambulatory Basilio Flores Facility:[facility] Start: 06-26-2024 End: 06-26-2024 ambulatory Basilio Flores Facility:[facility] Start: 06-26-2024 End: 06-26-2024 [facility] Start: 06-15-2024 ambulatory Basilio Flores Facility: [facility] Start: 06-15-2024 [facility] Start: 06-09-2024 ambulatory Basilio Flores Facility: [facility] Start: 06-09-2024 [facility] Start: 06-02-2024 End: 06-02-2024 [facility] Start: 06-01-2024 End: 06-02-2024 ambulatory Basilio Flores Facility:[facility] Start: 06-01-2024 End: 06-01-2024 Patient encounter procedure Debora HAIDER -[facility] Work Phone: Start: 05-19-2024 End: 05-19-2024 ambulatory Donato Sepulveda Facility:[facility] Start: 05-19-2024 End: 05-19-[address] Donato Sepulveda MD -[facility] Work Phone: Start: 04-21-2024 ambulatory Basilio Flores Facility: [facility] Start: 04-21-2024 [facility] Start: 04-07-2024 End: 04-07-2024 ambulatory Basilio Flores Facility:[facility] Start: 04-07-2024 End: 04-07-2024 ambulatory Basilio Flores Facility:[facility] Start: 03-17-2024 End: 03-17-2024 ambulatory Basilio Flores Facility:[facility] Start: 03-10-2024 End: 03-10-2024 ambulatory Basilio Bala Flores Facility:[facility] Start: 02-06-2024 End: 02-06-2024 ambulatory Basilio Bala Flores Facility:[facility] Start: 02-04-2024 End: 02-04-2024 ambulatory Basilio Bala Flores Facility:[facility] Start: 01-21-2024 End: 01-21-2024 ambulatory Basilio Bala Flores Facility:[facility] Start: 01-14-2024 ambulatory Basilio Bala Flores Facility: [facility] Start: 01-09-2024 End: 01-09-2024 ambulatory Basilio Bala Flores Facility:[facility] Start: 12-30-2023 End: 12-30-2023 ambulatory Basilio Flores Facility:[facility] Start: 08-06-2023 End: 08-06-[address] Basilio Flores Work Phone: [facility] Work Phone: Start: 08-06-2023 End: 08-06-[address] Basilio Flores Work Phone: [facility] Start: 06-11-2023 End: 06-11-[address] Basilio Flores Work Phone: [facility] Work Phone: Start: 06-11-2023 End: 06-11-[address] Basilio Flores Work Phone: [facility] Start: 06-08-2023 End: 06-08-2023 Emergency department patient visit Dr. Basilio Flores Work Phone: [facility] Work Phone: Start: 06-05-2023 End: 06-05-[address] Basilio Flores Work Phone: [facility] Work Phone: Start: 06-05-2023 End: 06-05-2023 Emergency department patient visit Dr. Basilio Flores Work Phone: [facility] Work Phone: Start: 05-28-2023 End: 05-28-[address] Basilio Flores Work Phone: [facility] Work Phone: Start: 05-15-2023 End: 05-15-[address] Basilio Flores Work Phone: [facility] Work Phone: Start: 04-24-2023 End: 04-24-[address] Basilio Flores Work Phone: [facility] Work Phone: Start: 04-23-2023 End: 04-23-[address] Basilio Flores Work Phone: [facility] Work Phone: Start: 04-23-2023 End: 04-23-[address] Basilio Flores Work Phone: [facility] Start: 04-23-[address] Basilio avendano Work Phone: [facility] Start: 04-19-2023 End: 04-19-[address] Basilio Flores Work Phone: [facility] Work Phone: Start: 04-19-2023 End: 04-19-[address] Basilio Flores Work Phone: [facility] Start: 04-19-[address] Basilio avendano Work Phone: [facility] Start: 04-09-2023 End: 04-09-[address] Basilio Flores Work Phone: [facility] Work Phone: Start: 04-09-2023 End: 04-09-[address] Basilio Flores Work Phone: [facility] Start: 03-26-2023 End: 03-26-[address] Basilio Flores Work Phone: [facility] Work Phone: Start: 03-13-2023 End: 03-13-[address] Basilio Flores Work Phone: [facility] Work Phone: Start: 03-12-2023 End: 03-12-[address] Basilio Flores Work Phone: [facility] Start: 03-07-2023 End: 03-07-[address] Basilio Flores Work Phone: [facility] Work Phone: Start: 02-05-2023 End: 02-05-[address] Basilio Flores Work Phone: [facility] Start: 02-04-2023 End: 02-04-[address] Basilio Flores Work Phone: [facility] Work Phone: Start: 01-30-2023 End: 01-30-[address] Basilio Flores Work Phone: [facility] Work Phone: Start: 01-22-2023 End: 01-22-[address] Basilio Flores Work Phone: [facility] Work Phone: Start: 01-17-2023 End: 01-17-[address] Basilio Flores Work Phone: [facility] Work Phone: Start: 01-01-2023 End: 01-01-[address] Basilio Flores Work Phone: [facility] Work Phone: Start: 12-07-2022 End: 12-07-[address] Basilio Flores Work Phone: [facility] Work Phone: Start: 12-07-2022 End: 12-07-[address] Basilio Flores Work Phone: [facility] Start: 12-04-2022 End: 12-04-[address] Basilio Flores Work Phone: [facility] Work Phone: Start: 12-04-2022 End: 12-04-[address] Basilio Flores Work Phone: 2(101)161-787512 [place] [address] Start: 12-04-[address] Basilio avendano Work Phone: [facility] Start: 11-21-2022 End: 11-21-[address] Basilio Flores Work Phone: [facility] Work Phone: Start: 11-21-2022 End: 11-21-[address] Basilio Flores Work Phone: [facility] Start: 11-21-[address] Basilio avendano Work Phone: [facility] Start: 11-20-2022 End: 11-20-[address] Basilio Flores Work Phone: [facility] Work Phone: Start: 10-31-2022 End: 10-31-[address] Basilio Flores Work Phone: [facility] Work Phone: Start: 10-09-2022 End: 10-09-[address] Basilio Flores Work Phone: [facility] Work Phone: Start: 10-09-2022 End: 10-09-[address] Basilio Flores Work Phone: [facility] Start: 10-09-[address] Basilio avendano Work Phone: [facility] Start: 10-05-2022 End: 10-05-[address] Basilio Flores Work Phone: [facility] Work Phone: Start: 10-05-2022 End: 10-05-[address] Basilio Flores Work Phone: 4(869)316-966112 [place] [address] Start: 10-05-[address] Basilio avendano Work Phone: [facility] Start: 10-04-2022 End: 10-04-[address] Basilio Flores Work Phone: [facility] Start: 10-04-[address] Basilio avendano Work Phone: 2(824)[phone] [place] [address] Start: 09-25-2022 End: 09-25-[address] Basilio Flores Work Phone: [facility] Work Phone: Start: 09-04-2022 End: 09-04-[address] Basilio Flores Work Phone: [facility] Work Phone: Start: 09-04-2022 End: 09-04-[address] Basilio Flores Work Phone: [facility] Start: 09-03-2022 End: 09-03-[address] Basilio Flores Work Phone: [facility] Work Phone: Start: 08-07-2022 End: 08-07-[address] Basilio Flores Work Phone: [facility] Work Phone: Start: 08-07-2022 End: 08-07-[address] Basilio Flores Work Phone: [facility] Start: 08-02-2022 End: 08-02-[address] Basilio Flores Work Phone: [facility] Start: 07-24-2022 End: 07-24-[address] Basilio Flores Work Phone: [facility] Start: 07-21-2022 End: 07-21-[address] Basilio Flores Work Phone: [facility] Start: 07-13-2022 End: 07-13-[address] Basilio Flores Work Phone: [facility] Start: 07-02-2022 End: 07-02-[address] Basilio Flores Work Phone: [facility] Start: 06-15-2022 End: 06-15-[address] Basilio Flores Work Phone: [facility] Start: 06-12-2022 End: 06-12-[address] Basilio Flores Work Phone: [facility] Work Phone: Start: 06-12-2022 End: 06-12-[address] Basilio Flores Work Phone: [facility] Start: 05-29-2022 End: 05-29-[address] Basilio Flores Work Phone: [facility] Start: 04-17-2022 End: 04-17-[address] Basilio Flores Work Phone: [facility] Start: 04-17-[address] Basilio avendano Work Phone: [facility] Start: 04-13-2022 End: 04-13-[address] Basilio Flores Work Phone: 7(073)193-427912 [place] [address] Start: 04-13-[address] Basilio avendano Work Phone: 7(481)[phone] [place] [address] Start: 04-10-2022 End: 04-10-[address] Basilio Flores Work Phone: [facility] Work Phone: Start: 04-10-2022 End: 04-10-[address] Basilio Flores Work Phone: 2(279)[phone] [place] [address] Start: 04-05-2022 End: 04-05-[address] Basilio Flores Work Phone: [facility] Start: 03-27-2022 End: 03-27-[address] Basilio Flores Work Phone: [phone] [place] [address] Start: 03-06-2022 End: 03-06-[address] Basilio Flores Work Phone: [facility] Work Phone: Start: 03-06-2022 End: 03-06-[address] Basilio Flores Work Phone: [facility] Start: 02-06-2022 End: 02-06-[address] Basilio Flores Work Phone: [facility] Work Phone: Start: 02-06-2022 End: 02-06-[address] Basilio Flores Work Phone: [facility] Start: 12-05-2021 End: 12-05-[address] Basilio Flores Work Phone: [facility] Start: 12-04-2021 End: 12-04-[address] Basilio Flores Work Phone: [facility] Start: 11-14-2021 End: 11-14-[address] Basilio Flores Work Phone: [facility] Start: 10-17-2021 End: 10-17-[address] Basilio Flores Work Phone: [facility] Start: 10-17-[address] Basilio avendano Work Phone: [facility] Start: 10-05-2021 End: 10-05-[address] Basilio Flores Work Phone: [facility] Start: 09-12-2021 End: 09-12-[address] Basilio Flores Work Phone: [facility] Start: 09-05-2021 End: 09-05-[address] Basilio Flores Work Phone: [facility] Start: 08-08-2021 End: 08-08-2021 Departed Referred [facility] Start: 08-08-2021 Registered Referred [facility] Start: 07-12-2021 End: 07-12-2021 Departed Referred [facility] Start: 03-16-2019 End: 03-16-2019 Patient encounter procedure Rachael Newman MD Work Phone: [facility] Work Phone: Procedures Date Procedure Procedure Detail Performing Clinician Start: 11-17-2024 Vitamin D, 25-hydrox y measurement Dr. Donato Sepulveda MD Work Phone: Comment on above: Vitamin D StatusDefi ciency: <20 ng/mL (50nmol/L)Insufficiency: 20-30 ng/mL (50-75 nmol/L)Sufficiency: 30-100 ng/mL (75-250 nmol/L)Toxicity: >100 ng/mL (>250 nmol/L) Start: 10-19-[address] Basilio [...] Basilio Flores MD Work Phone: Start: 10-18-[address] Rolf Sepulveda MD Work Phone: Start: 10-18-2024 Urine culture [...] Activity Detail Author Start: 10-20-2024 Patient discharge [facility] Start: 10-19-2024 End: 10-19-2024 [facility] Start: 10-19-2024 Care regimes management [facility] Start: 10-19-2024 Notification of physician [facility] Start: 10-19-2024 Wound care [facility] Start: 10-19-2024 Care planning and problem solving actions [facility] Start: 10-18-2024 Following clinical pathway protocol [facility] Start: 10-18-2024 Application of ice collar, cap or bag [facility] Start: 10-18-2024 Assessment of risk of venous thromboembolism [facility] Start: 10-18-2024 Catheterization of vein [facility] Start: 10-18-2024 Consultation for treatment [facility] Start: 10-18-2024 Insertion of catheter into peripheral vein [facility] Start: 10-18-2024 Measuring intake and output [facility] Start: 10-18-2024 Oxygen therapy [facility] Start: 10-18-2024 Patient referral to dietitian [facility] Start: 10-18-2024 Providing care according to standard [facility] Start: 10-18-2024 Provision of activity privileges [facility] Start: 10-18-2024 Referral to occupational therapist [facility] Start: 10-18-2024 Referral to service [facility] Start: 10-18-2024 [facility] Start: 10-18-2024 Verification routine [facility] Start: 10-18-2024 Admission procedure [facility] Start: 10-18-2024 Hospital admission, emergency, from emergency room, medical nature [facility] Start: 10-18-2024 End: 10-18-2024 [facility] Start: 10-18-2024 End: 10-19-2024 [facility] Start: 10-18-2024 Bacteria identified in Blood by Culture Blood Culture [facility] Start: 10-18-2024 Bacteria identified in Urine by Culture Urine Culture [facility] Start: 10-18-2024 Consultation [facility] Start: 08-24-2024 Injection aa&/strd genicular nrv branches w/img NJX AA&/STRD GNCLR NRV BRNCH [facility] Start: 08-24-2024 Fluoroscopic guidance [facility] Start: 08-24-2024 Patient discharge [facility] Start: 06-08-2023 [facility] Start: 06-05-2023 Simple repair f/e/e/n/l/m 2.5cm/< RPR F/E/E/N/L/M 2.5 CM/< [facility] Start: 06-05-2023 [facility] Start: 03-16-2019 End: 03-16-2019 Appointment Appointment [facility] Work Phone: Patient Education [facility] Work Phone: Patient referral [facility] Work Phone: Urine culture [facility] Immunizations Immunization Date Immunization Notes Care Provider Fa cility 06-05-2023 tetanus toxoid, redu lloyd diphtheria toxoid, and acellular pertussis vaccine, adsorbed Dr. Basilio Flores Work Phone: [facility] 02-23-2015 Influenza virus vaccine [facility] Payers Date Payer Category Payer Self-pay [id number] 2023 Medicare [id number] 2023 Unknown [id number] Unknown [id number] Unknown [id number] 2.16.8 40.1.517978.3.579.2.462 Unknown [id number] 2.16.8 40.1.219794.3.579.2.462 Unknown [id number] 2.16.8 40.1.147344.3.579.2.462 Unknown [id number] 2.16.8 40.1.749711.3.579.2.462 Unknown [id number] 2.16.8 40.1.276281.3.579.2.462 Unknown [id number] 2.16.8 40.1.323763.3.579.2.462 Unknown [id number] 2.16.8 40.1.749625.3.579.2.462 Unknown [id number] 2.16.8 40.1.201203.3.579.2.462 Unknown [id number] 2.16.8 40.1.002779.3.579.2.462 Unknown [id number] 2.16.8 40.1.110546.3.579.2.462 Unknown [id number] 2.16.8 40.1.947761.3.579.2.462 Unknown [id number] 2.16.8 40.1.754165.3.579.2.462 Unknown [id number] 2.16.8 40.1.208823.3.579.2.462 Unknown [id number] 2.16.8 40.1.651422.3.579.2.462 Unknown [id number] 2.16.8 40.1.633388.3.579.2.462 Unknown [id number] 2.16.8 40.1.587377.3.579.2.462 Unknown [id number] 2.16.8 40.1.572528.3.579.2.462 Unknown [id number] 2.16.8 40.1.516518.3.579.2.462 Unknown [id number] 2.16.8 40.1.600709.3.579.2.462 Unknown [id number] 2.16.8 40.1.852144.3.579.2.462 Unknown [id number] 2.16.8 40.1.135258.3.579.2.462 Unknown [id number] 2.16.8 40.1.462202.3.579.2.462 Unknown [id number] 2.16.8 40.1.859964.3.579.2.462 Unknown [id number] 2.16.8 40.1.760574.3.579.2.462 Unknown [id number] 2.16.8 40.1.795828.3.579.2.462 Unknown [id number] 2.16.8 40.1.286769.3.579.2.462 Unknown [id number] 2.16.8 40.1.924901.3.579.2.462 Unknown [id number] 2.16.8 40.1.689316.3.579.2.462 Unknown [id number] 2.16.8 40.1.348047.3.579.2.462 Unknown [id number] 2.16.8 40.1.655911.3.579.2.462 Unknown [id number] 2.16.8 40.1.303791.3.579.2.462 Unknown [id number] 2.16.8 40.1.733865.3.579.2.462 Unknown [id number] 2.16.8 40.1.099282.3.579.2.462 Unknown [id number] 2.16.8 40.1.619931.3.579.2.462 Social History Date Type Detail Facility Start: 12-16-2019 End: 06-08-2023 Tobacco smoking status NHIS Unknown if ever smoked [facility] Start: 12-16-2019 None [facility] Start: 12-16-2019 Retirement [facility] Start: 12-16-2019 Non-smoker [facility] Start: 1940 Sex Assigned At Female [facility] Start: 06-08-2023 End: 10-18-2024 Tobacco smoking status NHIS Never smoked tobacco (finding) [facility] Start: 08-06-2024 End: 08-24-2024 Sex Female (finding) [facility] NEGATED: Highlighted rowStart: 03-16-2019 End: 03-16-2019 Alcohol use Alcohol use [facility] Work Phone: NEGATED: Highlighted rowStart: 03-16-2019 End: 03-16-2019 Details of drug misuse behavior Details of drug misuse behavior [facility] Work Phone: NEGATED: Highlighted rowStart: 03-16-2019 End: 03-16-2019 Assertion Never smoker [facility] Work Phone: Goals Date Patient Goal Desired Activity /State Functional Status Date Assessment Result Facility 10-20-2024 Functional status Patient Activi ty Bathroom Privilege [facility] Work Phone: 10-20-2024 Functional status Activity Abili ty With Assist of 1 [facility] Work Phone: 10-20-2024 Functional status Standard Walker [facility] Work Phone: Mental Status Date Assessment Result Facility 10-20-2024 Cognitive function Voice/Name [facility] Work Phone: 10-18-2024 Cognitive function Level Of Cons ciousness Awake;Appropriate;Follows Commands;Disoriented [facility] Work Phone: 08-24-2024 Cognitive function Voice/Name [facility] Work Phone: Clinical Notes 06-05-2023 to 10-20-2024 Note Date & Type Note Facility 10-20-2024 Discharge summary Note Date/Time October 20, 2024 3:53pm [facility] Medical Records Department [address] [place] [address] Discharge Summary 10/20/24 1535 MR#: [id number] Acct: [id number] Name: JUSTUS CHINCHILLA Rep #:[id number] : 1940 84 From: Ángel cuenca MD PCP: Dr. Donato Sepulveda MD Status:A DM IN Location: [place] [address] Providers Date of Admission: 10/18/24 Primary Care Physician: Dr. Donato Sepulveda MD Consultations 10/18/24 22:14 Consult: Onc/Wound/cut roll machine offbearer Routine Comment: Reason For Visit: SEVERE HYPOGLYCEMIA/UTI [...] who presented to the emergency department at [facility] on 10/18/2024 with chief complaint of head [...] nursing facility. Patient states the food is terrible. Patient unable to remember when the last [...] weakness and falls?84-year-old female presenting from the skilled nursing was found to have a blood sugar [...] does not like the food at the skilled nursing apparently. I recommend holding all of her [...] would like to go back to the skilled nursing if possible today. 2. Essential hypertension, type [...] in before D/C Order can be placed): Residential Facility Charges/Coding Visit Charges Inpatient E&M: 06080 Disch Hosp >30min 10/20/24 1553 <Electronically signed by Ángel Lam MD> Cosigner Signature (if applicable): CC: Dr. Donato Sepulveda MD; Dr. Ángel Lam MD~ Signed [facility] Work Phone: 1(373) 802-559606-17-2025 Discharge summary [facility] Medical Records Department [address] [place] [address] Discharge Summary 10/20/24 1535 MR#: [id number] Acct: [id number] Name: JUSTUS CHINCHILLA Rep #:[id number] : 1940 84 From: Ángel cuenca MD PCP: Dr. Donato Sepulveda MD Status:A DM IN Location: [place] [id number] Providers Date of Admission: 10/18/24 Primary Care Physician: Dr. Donato Sepulveda MD Consultations 10/18/24 22:14 Consult: Onc/Wound/cut roll machine offbearer Routine Comment: Reason For Visit: SEVERE HYPOGLYCEMIA/UTI [...] who presented to the emergency department at [facility] on 10/18/2024 with chief complaint of head [...] nursing facility. Patient states the food is terrible. Patient unable to remember when the last [...] weakness and falls?84-year-old female presenting from the skilled nursing was found to have a blood sugar [...] does not like the food at the skilled nursing apparently. I recommend holding all of her [...] would like to go back to the skilled nursing if possible today. 2. Essential hypertension, type [...] in before D/C Order can be placed): Residential Facility Charges/Coding Visit Charges Inpatient E&M: 50976 Disch Hosp >30min 10/20/24 1553 Cosigner Signature (if applicable): CC: Dr. Donato Sepulveda MD; Dr. Ángel Lam MD~ [facility]06-17-2025 [facility] Medical Records Department [facility] [place] [address] Discharge Summary 10/20/24 1535 MR#: [id number] Acct: [id number] Name: JUSTUS CHINCHILLA Rep #: [id number] : 1940 84 From: Ángel Lam MD PCP: Dr. Donato Sepulveda MD Status:ADM IN Location: [place] [id number] Providers Date of Admission: 10/18/24 Primary Care Physician: Dr. Donato Sepulveda MD Consultations 10/18/24 22:14 Consult: Onc/Wound/cut roll machine offbearer Routine Comment: Reason For Visit: SEVERE HYPOGLYCEMIA/UTI [...] who presented to the emergency department at [facility] on 10/18/2024 with chief complaint of head [...] nursing facility. Patient states the food is terrible. Patient unable to remember when the last [...] sugar improved her mentation (more content not included)...[facility]06-17-2025 Consult note Author Perla Jaimes [facility] Note Date/Time October 20, 2024 11:4 8am [facility] Medical Records Department [address] [place] [address] Counseling Note - Pharmacy 10/20/24 1148 MR#: [id number] Acct: [id number] Name: JUSTUS CHINCHILLA Rep #:[id number] : 1940 84 From: Perla Jaimes PCP: Dr. Donato Sepulveda MD Status:A DM IN Location: [place] [address] Pharmacy [place] Med Reconciliation Pharmacy Service has performed discharge [...] Signature (if applicable): Date CC: ~ Signed [facility] Work Phone: 1(939) 666-824606-17-2025 Discharge summary Author Ángel Lam [facility] Note Date/Time October 20, 2024 11:2 0am [facility] Medical Records Department [facility] [place] [address] Transfer to Extended Care MR#: [id number] Acct: [id number] Name: JUSTUS CHINCHILLA Rep #:[id number] : 1940 84 From: Ángel cuenca MD PCP: Dr. Donato Sepulveda MD Status:A DM IN Certification of patient admission REQUIRED AT TIME OF ADMISSION. I CERTIFY THAT POST-HOSPITAL ECF SERVICES ARE REQUIRED TO BE GIVEN ON AN IN-PATIENT BASIS BECAUSE OF THE ABOVE NAMED PATIENT'S NEED FOR FPC CARE ON A CONTINUING BASIS FOR THE CONDITION(S) FOR WHICH HE/SHE WAS RECEIVING IN-PATIENT HOSPITAL SERVICES PRIOR TO HIS/HER TRANSFER TO THE F. 10/20/24 1120<Electronically signed by Ángel Lam MD> [...] her lack of p.o. intake at the skilled nursing ? She did have falls at home the skilled nursing because of this hypoglycemia with some abrasions [...] in before D/C Order can be placed): Residential Facility 10/20/24 1120 <Electronically signed by Ángel Lam MD> Cosigner Signature (if applicable): CC: Dr. Donato Sepulveda MD; Dr. Anali Coello, DO ~ [facility] Work Phone: 1(287) 716-452006-17-2025 Consult note [facility] Medical Records Department [address] [place] [address] Counseling Note - Pharmacy 10/20/24 1148 MR#: [id number] Acct: [id number] Name: JUSTUS CHINCHILLA Rep #:[id number] : 1940 84 From: Perla Jaimes PCP: Dr. Donato Sepulveda MD Status:A DM IN Y Location: [facility] [id number] 1 Pharmacy [place] Med Reconciliation Pharmacy Service has performed discharge [...] #0 mL 10/20/24 10/20/24 1148 Date _ Perla Gil Signature (if applicable): Date CC: ~ Signed [facility]06-17-2025 Discharge summary [facility] Medical Records Department [address] [place] [address] Transfer to [facility] MR#: [id number] Acct: [id number] Name: JUSTUS CHINCHILLA Rep #:[id number] : 1940 84 From: Ángel cuenca MD PCP: Dr. Donato Sepulveda MD Status:A DM IN Certification of patient admission REQUIRED AT TIME OF ADMISSION. I CERTIFY THAT POST-HOSPITAL [facility] SERVICES ARE REQUIRED TO BE GIVEN ON AN IN-PATIENT BASIS BECAUSE OF THE ABOVE NAMED PATIENT'S NEED FOR FPC CARE ON A CONTINUING BASIS FOR THE CONDITION(S) FOR WHICH HE/SHE WAS RECEIVING IN-PATIENT HOSPITAL SERVICES PRIOR TO HIS/HER TRANSFER TO THE [facility]. 10/20/24 1120 Diet Diet Order/Speech Therapy: INPATIENT [...] her lack of p.o. intake at the skilled nursing ? She did have falls at home the skilled nursing because of this hypoglycemia with some abrasions [...] in before D/C Order can be placed): Residential Facility 10/20/24 1120 Cosigner Signature (if applicable): CC: Dr. Donato Sepulveda MD; Dr. Anali Coello, DO [facility]06-16-2025 Progress note Author Ángel Lam [facility] Note Date/Time October 19, 2024 7:02 pm [facility] Medical Records Department [address] [place] [address] Progress Note - Hospitalist 10/19/24 1852 MR#: [id number] Acct: [id number] Name: JUSTUS CHINCHILLA Rep #:[id number] : 1940 84 From: Ángel cuenca MD PCP: Dr. Donato Sepulveda MD Status:A DM IN Location: [place] [address] Subjective Subjective She says that she does not feel great and would prefer to go back to the [facility] tomorrow Objective Data Objective Data Vital [...] Clarity Clear, Urine pH 6.5, Ur Specific [place] 1.015, Urine Protein 30 H, Urine Glucose [...] % (Auto) 70.0, Lymph % (Auto) 21.5, [place]% (Auto) 7.3, Eos % (Auto) 0.6, Baso [...] Catheterized Urine Culture - Preliminary GNR lactose machine design checker 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 Mild anterior frontal scalp swelling. No acute calvarial defect. Reading Location: [facility] Physical Exam Narrative General: Alert, Oriented x3, [...] her lack of p.o. intake at the skilled nursing ? She did have falls at home the skilled nursing because of this hypoglycemia with some abrasions [...] DVT: Lovenox Charges/Coding Visit Charges Inpatient E&M: 60074 Subs Hosp L2 10/19/241901 <Electronically signed by Ángel Lam MD> Cosigner Signature (if applicable): CC: ~ Signed [facility] Work Phone: 1(920) 179-892306-16-2025 Progress note [facility] Medical Records Department [address] [place] [address] Progress Note - Hospitalist 10/19/24 1852 MR#: [id number] Acct: [id number] Name: JUSTUS CHINCHILLA Rep #:[id number] : 1940 84 From: Ángel cuenca MD PCP: Dr. Donato Sepulveda MD Status:A DM IN Location: [place] [address] Subjective Subjective She says that she does not feel great and would prefer to go back to the [facility] tomorrow Objective Data Objective Data Vital [...] Clarity Clear, Urine pH 6.5, Ur Specific [place] 1.015, Urine Protein 30 H, Urine Glucose [...] % (Auto) 70.0, Lymph % (Auto) 21.5, [place]% (Auto) 7.3, Eos % (Auto) 0.6, Baso [...] Catheterized Urine Culture - Preliminary GNR lactose machine design checker 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 Mild anterior frontal scalp swelling. No acute calvarial defect. Reading Location: [facility] Physical Exam Narrative General: Alert, Oriented x3, [...] her lack of p.o. intake at the skilled nursing ? She did have falls at home the skilled nursing because of this hypoglycemia with some abrasions [...] DVT: Lovenox Charges/Coding Visit Charges Inpatient E&M: 31218 Subs Hosp L2 10/19/24 1902 Cosigner Signature (if applicable): CC: ~ Signed [facility]06-16-2025 Discharge summary Author Zoltan Garcia [facility] Note Date/Time October 19, 2024 12:1 3am [facility] Medical Records Department [address] [place] [address] Emergency Department Summary 10/18/24 MR#: [id number] Acct: [id number] Name: JUSTUS CHINCHILLA Rep #:[id number] : 1940 84 From: Zoltan Gomez PCP: Dr. Donato Sepulveda MD Status:A DM IN Location: [place] [address] HPI HPI - Fall History of Present [...] Patient takes oral hypoglycemicsas well as insulin. [facility] Medical History (Updated 10/18/24 @ 21:59 by [...] motor deficits and no sensory deficits noted [place] Com[place] Scale: document GCS findings Spontaneous Obeys [...] 89.4 H Lymph % (Auto) 4.7 L [place] % (Auto) 4.8 Eos % (Auto) 0.1 [...] Color Urine Clarity Urine pH Ur Specific [place] Urine Protein Urine Glucose (UA) Urine Ketones [...] (Auto) Neut % (Auto) Lymph % (Auto) [place] % (Auto) Eos % (Auto) Baso % [...] Clarity Clear Urine pH 6.5 Ur Specific [place] 1.015 Urine Protein 30 H Urine Glucose [...] (Auto) Neut % (Auto) Lymph % (Auto) [place] % (Auto) Eos % (Auto) Baso % [...] Color Urine Clarity Urine pH Ur Specific [place] Urine Protein Urine Glucose (UA) Urine Ketones Urine Occult Blood Urine Nitrite Urine Bilirubin Urine Urobilinogen Ur Leukocyte Esterase Urine RBC Urine WBC Ur Squamous Epith Cells Urine Bacteria Urine Mucus POC Glucose 129 H Radiography Diagnostic Testing: Clinical Impression(s) from Imaging Studies Brain CT 10/18/24 17:01 IMPRESSION: No acute intracranial process. Mild anterior frontal scalp swelling. No acute calvarial defect. Reading Location: [facility] Management Discussion w/another healthcare provider: Hospitalist (Dr. Coello) Discharge Plan Dx/Rx/DC Orders Clinical Impression: Traumatic hematoma of forehead, Abrasion of forehead, Fall, Diabetic hypoglycemia, Skin tear of forearm without complication, Acute UTI Disposition Disposition: Acute Care Hospital [facility] Discharge Date/Time: 10/18/24 22:04 What to do if you have Problems For any increased pain, shortness of breath, bleeding, nausea or vomiting, chestpain, or any unexpected problems, contact your Primary Care Provider. Call [facility] ([phone]) or report to the closest Emergency Room. Call 911 if necessary. 10/19/24 0013 <Electronically signed by Zoltan Garcia DO> Cosigner Signature (if applicable): CC: Dr. Donato Sepulveda MD ~ Signed [facility] Work Phone: 1(379) 471-742106-16-2025 History and physical note Author Anali Coello [facility] Note Date/Time October 18, 2024 10:2 4pm [facility] Medical Records Department [address] [place] [address] H&P Exam - Hospitalist 10/18/242107 MR#: [id number] Acct: [id number] Name: JUSTUS CHINCHILLA Rep #:[id number] : 1940 84 From: Anali Coello DO PCP: Dr. Donato Sepulveda MD Status:A DM IN Location: [place] [id number] HPI - General General Date of Admission: 10/18/24 Date of Service: 10/18/24 Chief Complaint: Fall/altered mental status HPI Narrative JUSTUS CHINCHILLA, is a 84 F who presented to the emergency department at [facility] on 10/18/2024 with chief complaint of head [...] nursing facility. Patient states the food is terrible. Patient unable to remember when the last [...] she was close to her baseline mentation. [facility] Medical History (Updated 10/18/24 @ 21:59 by [...] (Auto) 89.4 H, Lymph % (Auto) 4.7L, [place] % (Auto) 4.8, Eos % (Auto) 0.1, [...] Clarity Clear, Urine pH 6.5, Ur Specific [place] 1.015, Urine Protein 30 H, Urine Glucose [...] swelling. No acute calvarial defect. Reading Location: [id number] Assessment & Plan Assessment/Plan (1) Skin tear of forearm without complication: (2) Diabetic hypoglycemia: (3) Fall: (4) Traumatic hematoma of forehead: (5) Abrasion of forehead: PLAN: Plan Altered mental status secondary to severe hypoglycemia - Blood sugar on [facility] at presentation was 19 - Dextrose drip [...] work consultation - Patient currently resides at [place] [address] - Hold all home antidiabetic agents - [...] palliative care Charges/Coding Visit Charges Inpatient E&M: 62726 Init Hosp L2 10/18/242223 <Electronically signed by Anali Coello DO> Cosigner Signature (if applicable): CC: Dr. Donato Sepulveda MD; Dr. Anali Coello DO~ Signed [facility] Work Phone: 1(906) 398-568906-16-2025 Discharge summary [facility] Medical Records Department [address] [place] [address] Emergency Department Summary 10/18/24 MR#: [id number] Acct: [id number] Name: JUSTUS CHINCHILLA Rep #:[id number] : 1940 84 From: Zoltan Gomez PCP: Dr. Donato Sepulveda MD Status:A DM IN Location: [place] [id number] HPI HPI - Fall History of [...] Patient takes oral hypoglycemicsas well as insulin. [facility] Medical History (Updated 10/18/24 @ 21:59 by [...] mg tablet 20 mg PO DAILY 06/05/23 04/2 05/30 History linaclotide 290 mcg capsule 290 mcg [...] 89.4 H Lymph % (Auto) 4.7 L [place] % (Auto) 4.8 Eos % (Auto) 0.1 [...] Color Urine Clarity Urine pH Ur Specific [place] Urine Protein Urine Glucose (UA) Urine Ketones [...] (Auto) Neut % (Auto) Lymph % (Auto) [place] % (Auto) Eos % (Auto) Baso % [...] Clarity Clear Urine pH 6.5 Ur Specific [place] 1.015 Urine Protein 30 H Urine Glucose [...] (Auto) Neut % (Auto) Lymph % (Auto) [place] % (Auto) Eos % (Auto) Baso % [...] Color Urine Clarity Urine pH Ur Specific [place] Urine Protein Urine Glucose (UA) Urine Ketones Urine Occult Blood Urine Nitrite Urine Bilirubin Urine Urobilinogen Ur Leukocyte Esterase Urine RBC Urine WBC Ur Squamous Epith Cells Urine Bacteria Urine Mucus POC Glucose 129 H Radiography Diagnostic Testing: Clinical Impression(s) from Imaging Studies Brain CT 10/18/24 17:01 IMPRESSION: No acute intracranial process. Mild anterior frontal scalp swelling. No acute calvarial defect. Reading Location: [facility] Management Discussion w/another healthcare provider: Hospitalist (Dr. Coello) Discharge Plan Dx/Rx/DC Orders Clinical Impression: Traumatic hematoma of forehead, Abrasion of forehead, Fall, Diabetic hypoglycemia, Skin tear of forearm without complication, Acute UTI Disposition Disposition: Acute Care Hospital [facility] Discharge Date/Time: 10/18/24 22:04 What to do if you have Problems For any increased pain, shortness of breath, bleeding, nausea or vomiting, chestpain, or any unexpected problems, contact your Primary Care Provider. Call [facility] ([phone]) or report tothe closest Emergency Room. Call 911 if necessary. 10/19/24 0013 Cosigner Signature (if applicable): CC: Dr. Donato Sepulveda MD ~ Signed [facility]06-15-2025 Evaluation note* Diagnosis Onset Date Resolution Status Admit Date Abrasion of forehead acute October 18, 2024 9:38pm Acute UTI acute October 18 9:38pm Diabetic hypoglycemia acute Oct 9:38pm Fall acute October 18 9:38pm Skin tear of forearm without complication acute October 18, 2024 9:38pm Traumatic hematoma of forehead acute October 18, 2024 9:38pm [facility] Work Phone: [phone] [id number] Evaluation note* Diagnosis Onset Date Resolution Status Admit Date Abrasion of forehead acute October 18, 2024 9:38pm Diabetic hypoglycemia acute Oct 9:38pm Fall acute October 18 9:38pm Skin tear of forearm without complication acute October 18, 2024 9:38pm Traumatic hematoma of forehead acute October 18, 2024 9:38pm Acute UTI resolved October 18 9:38pm [facility] Work Phone: [phone] 672-172006-15-2025 History and physical note [facility] Medical Records Department [address] [place] [id number] H&P Exam - Hospitalist 10/18/242107 MR#: [id number] Acct: [id number] Name: JUSTUS CHINCHILLA Rep #:[id number] : 1940 84 From: Anali Coello DO PCP: Dr. Donato Sepulveda MD Status:A DM IN Location: [facility] [id number] HPI - General General Date of Admission: 10/18/24 Date of Service: 10/18/24 Chief Complaint: Fall/altered mental status HPI Narrative JUSTUS CHINCHILLA, is a 84 F who presented to the emergency department at [facility] on 10/18/2024 with chief complaint of head [...] per family and seems to be at [facility] at the time of my admission. She does have a history of diabetes and takes quite a bit of medication. Family reports that her oral intake is poor at the nursing facility. Patient states the food is terrible. Patient unable to remember when the last [...] she was close to her baseline mentation. [facility] Medical History (Updated 10/18/24 @ 21:59 by [...] (Auto) 89.4 H, Lymph % (Auto) 4.7L, [place] % (Auto) 4.8, Eos % (Auto) 0.1, [...] Clarity Clear, Urine pH 6.5, Ur Specific [place] 1.015, Urine Protein 30 H, Urine Glucose [...] swelling. No acute calvarial defect. Reading Location: [facility] Assessment & Plan Assessment/Plan (1) Skin tear of forearm without complication: (2) Diabetic hypoglycemia: (3) Fall: (4) Traumatic hematoma of forehead: (5) Abrasion of forehead: PLAN: Plan Altered mental status secondary to severe hypoglycemia - Blood sugar on [facility] at presentation was 19 - Dextrose drip [...] work consultation - Patient currently resides at [facility] - Hold all home antidiabetic [...] palliative care Charges/Coding Visit Charges Inpatient E&M: 25334 Init Hosp L2 10/18/242223 Cosigner Signature (if applicable): CC: Dr. Donato Sepulveda MD; Dr. Anali Coello DO~ Signed [facility]06-15-2025 Radiology Diagnostic study note [facility] Imaging Services [address] [place] [address] Brain/Head without Contrast MR#: [id number] Acct: [id number] Name: JUSTUS CHINCHILLA Rep #: [id number] : 1940 F 84 From: Debby Contreras MD PCP: Dr. Donato Sepulveda MD Status: R EG ER Study:Brain/Head without Contrast Date of Exa m: 10/18/24 Exam# [id number] Ordering Dr: Parminder Garcia DO PROCEDURE: BRAIN/HEAD [...] hydrocephalus or significant midline shift. There is jcep-tz-[id number] chronic microvascular ischemic changes and ispl-gf-kmymfppg parenchymal volume loss. No acute, depressed calvarial fractures. Mild anterior frontal scalp swelling. Bilateral lens surgeries. CT/Brain/Head without Contrast IMPRESSION: No acute intracranial process. Mild anterior frontal scalp swelling. No acute calvarial defect. Reading Location: [id number] CC: Dr. Zoltan Garcia DO; Dr. Donato Sepulveda MD ~ Manager Packaging: Signed [facility]04-21-2025 Procedure note [facility] Medical Records Department [address] [place] [address] Operative Report 08/24/24 0932 MR#: [id number] Acct: [id number] Name: JUSTUS CHINCHILLA Rep #:[id number] : 1940 84 From: Armando Rich MD PCP: Dr. Donato Sepulveda MD Status:R [facility] Location: [place] [address] Operative Report (Standard) Operative Information Date of Procedure: 08/24/24 Pre-Operative Diagnosis: Osteoarthritis of the right knee, chronic postoperativeknee pain Post-Operative Diagnosis: Osteoarthritis of the right knee, chronic postoperative knee pain Surgery/Procedure Performed: Right knee superior medial/superior lateral/inferior medial genicular nerves steroid injection under fluoroscopic guidance printing supplies sales representative: No Type of Anesthesia: Local RN Documented [...] Sepulveda MD; Dr. Armando Rich MD~ Signed [facility]01-31-2024 Discharge summary Author Colleen [facility] June 05, 2023 7:54am Note Date/Time June 05, 2023 4 :38am [facility] Medical Records Department [address] [place] [address] Emergency Department Summary 06/05/23 MR#: [id number] Acct: [id number] Name: JUSTUS CHINCHILLA Rep #:[id number] : 1940 82 From: Colleen Gomez PCP: Dr. Basilio Flores MD Status:REG ER Location: ED HPI History of Present Illness Chief Complaint: Head Injury Informant: patient Narrative Narrative: Patient is an 82-year-old female presenting from [facility] after she injured her head. Patient states [...] Is not on any blood thinners. Per skilled nursing report patient was in the dining room at the table doing her puzzles which is her typical activity. Unclear if there was loss of consciousness. Was sent for evaluation of injuries. Tetanus Immunization: Unknown [facility] Medical History Anxiety and depression Arthritis [...] her baseline. No focal neurologic deficits appreciated Michaela Coma Scale: document GCS findings Spontaneous [...] Family Additional record(s) reviewed:: Prior outpatient record (skilled nursing paperwork ) Lab Data Attestation: I reviewed [...] 76.3 H Lymph % (Auto) 13.6 L [place] % (Auto) 7.2 Eos % (Auto) 2.0 [...] Sl. Cloudy Urine pH 6.0 Ur Specific [place] 1.015 Urine Protein 15 H Urine Glucose [...] your Primary Care Provider. Call [facility] ([phone]) or report to the closest Emergency Room. Call 911 if necessary. 06/05/23 0754 <Electronically signed by Colleen Walker DO> Cosigner Signature (if applicable): CC: Dr. Basilio Flores MD ~ Signed [facility] Work Phone: Evaluation noteNo assessment information available [facility] Work Phone: Evaluation note* Diagnosis Onset Date Resolution Status Admit Date Abrasion of forehead acute October 18, 2024 9:38pm Acute UTI acute October 18 9:38pm Diabetic hypoglycemia acute Oct 9:38pm Fall acute October 18 9:38pm Skin tear of forearm without complication acute October 18, 2024 9:38pm Traumatic hematoma of forehead acute October 18, 2024 9:38pm [facility] Work Phone: Hospital Discharge instructions Additional Instructions Lab work including CBC, BMP, urinalysis and CT of the head, cervical spine as well as x-ray of the right elbow do not show any acute injury or abnormalities. The cause of Justus's frequent falls is not clear however at this time I do not think she requires admission to the hospital.[facility] Work Phone: Reason for referral (narrative)No reason for referral information [facility] Work Phone: Chief Complaint Chief Complaint [...] Yes December 15 0 6:54pm Power of Wireless Engineer Yes December 15 6:54pm Advance Directive Response Recorded Date/ Time Advance Directives Yes October 13 12:44pm Living Will Yes December 15 0 5:54pm Power of Wireless Engineer Yes December 15 020 5:54pm Advance Directive Response Recorded Date/ Time Advance Directives Yes March 07, 2023 11:00am Living Will Yes March 07 11:00am Power of Wireless Engineer Yes March 07, 2023 11:00am Advance Directive Response Recorded Date/ Time Name of Medical Power of Wireless Engineer ABEBE VELEZ June 05, 2023 3:45am Advance Directives Yes March 07, 2023 11:00am Living Will Yes June 05 3:45am Power of Wireless Engineer Yes June 05, 2023 3:45am Advance Directive Response Recorded Date/ Time Name of Medical Power of Wireless Engineer ABEBE VELEZ June 05, 2023 3:45am Advance Directives Yes March 07, 2023 11:00am Living Will No June 08 8:10am Power of Wireless Engineer No June 08, 2023 8:10am Advance Directive Response Recorded Date/ Time Name of Medical Power of Wireless Engineer ABEBE VELEZ June 05, 2023 4:45am Advance Directives Yes March 07, 2023 12:00pm Living Will No June 08 9:10am Power of Wireless Engineer No June 08, 2023 9:10am Advance Directive Response Recorded Date/ Time Advance Directives Yes March 07, 2023 12:00pm Advance Directive Response Recorded Date/ Time Do you have a Healthcare Power of Wireless Engineer? Yes October 18, 2024 4:46pm Advance Directives Yes March 07, 2023 12:00pm Advance Directive Response Recorded Date/ Time Do you have a Healthcare Pow er of Wireless Engineer? Yes October 18, 2024 10:15pm Name of Medical Power of Wireless Engineer Ina Jaimes Carolin October 18, 2024 10:15pm Advance Directives Yes [...] Complaint and Reason for Visit Chief Complaint FPC LAB WOR K FPC PATIENT Chief Complaint FPC LAB WOR K FPC PATIENT MONTHLY EXAM Chief Complaint FPC LAB WOR K FPC PATIENT MONTHLY EXAM LABWORK Chief Complaint FPC PATIENT MONTHLY EXAM LABWORK Chief Complaint MONTHLY EXAM LABWORK FPC LABWORK FPC LABWORK MONTHLY EXAM FPC LABWORK Chief Complaint FPC LABWORK MONTHLY EXAM FPC LABWORK FPC LABWORK Chief Complaint MONTHLY EXAM FPC LABWORK FPC LABWORK FPC LABWORK Chief Complaint FPC LABWORK FPC LABWORK NEW SYMPTOMS/CONCERNS ACUTE CARE VISIT FPC LAB WORK FPC LAB WORK Chief Complaint FPC LABWORK NEW SYMPTOMS/CONCERNS ACUTE CARE VISIT FPC LAB WORK FPC LABWORK FPC LAB WORK MONTHLY EXAM FPC LABWORK NEW PROBLEM/CONCERN Chief Complaint MONTHLY EXAM FPC LABWORK NEW PROBLEM/CONCERN NEW PROBLEM NEW PROBLEM/CONCERN NEW PROBLEM NEW PROBLEM NEW PROBLEM FPC LABWORK Chief Complaint MONTHLY EXAM FPC LABWORK NEW PROBLEM/CONCERN NEW PROBLEM NEW PROBLEM/CONCERN NEW PROBLEM NEW PROBLEM NEW PROBLEM FPC LABWORK FPC LABWORK Chief Complaint NEW CONCERN FPC LABWORK MONTHLY EXAM FPC LAB WORK FPC LABWORK FPC LAB WORK MONTHLY EXAM MONTHLY EXAM FPC LAB WORK Chief Complaint NEW CONCERN FPC LABWORK MONTHLY EXAM FPC LAB WORK FPC LABWORK FPC LAB WORK MONTHLY EXAM MONTHLY EXAM FPC LAB WORK FPC LAB WORK Chief Complaint NEW CONCERN NEW CONCERN MONTHLY EXAM NEW CONCERN NEW CONCERN FPC LAB WORK FOLLOW UP FPC LAB WORK ACUTE CARE MONTHLY EXAM FPC LAB WORK Chief Complaint NEW CONCERN MONTHLY EXAM NEW CONCERN NEW CONCERN FPC LAB WORK FOLLOW UP FPC LAB WORK ACUTE CARE MONTHLY EXAM FPC LAB WORK FPC LABWORK FPC LABWORK Chief Complaint FPC LAB WOR K FOLLOW UP FPC LAB WORK ACUTE CARE MONTHLY EXAM FPC LAB WORK FPC LABWORK FPC LABWORK MONTHLY EXAM PIPE BOWLS PAINT TRIMMER HEAD INJURY Chief Complaint FOLLOW UP FPC LAB WORK ACUTE CARE MONTHLY EXAM FPC LAB WORK FPC LABWORK FPC LABWORK MONTHLY EXAM PIPE BOWLS PAINT TRIMMER NEW CONCERN MONTHLY EXAM - MD HEAD INJURY NEW CONCERN fall LABWORK Chief Complaint FPC LABWORK FPC LABWORK MONTHLY EXAM PIPE BOWLS PAINT TRIMMER NEW CONCERN MONTHLY EXAM - MD HEAD INJURY NEW CONCERN fall LABWORK FPC LAB WORK Chief Complaint Admit Date FPC LAB WORK April 21 5:00am MONTHLY EXAM May 19, 2024 4 :53pm NEW CONCERN June 01, 2024 5 :22pm FPC LAB WORK June 02, 2024 5:00am FPC LAB WORK June 09, 2024 5:00am FPC LAB WORK June 15 3:15pm NEW CONCERN June 26, 2024 5:54pm FPC LAB WORK July 14, 2024 4 :00am FPC LAB WORK July 15, 2024 5 :00am Chief Complaint Admit Date FPC LAB WORK April 21 5:00am MONTHLY EXAM May 19, 2024 4 :53pm NEW CONCERN June 01, 2024 5 :22pm FPC LAB WORK June 02, 2024 5:00am FPC LAB WORK June 09, 2024 5:00am FPC LAB WORK June 15 3:15pm NEW CONCERN June 26, 2024 5:54pm FPC LAB WORK July 14, 2024 4 :00am MONTHLY EXAM July 14, 2024 4:0 5pm FPC LAB WORK July 15, 2024 5 :00am Chief Complaint Admit Date MONTHLY EXAM May 19, 2024 4 :53pm NEW CONCERN June 01, 2024 5 :22pm FPC LAB WORK June 02, 2024 5:00am FPC LAB WORK June 09, 2024 5:00am FPC LAB WORK June 15 3:15pm NEW CONCERN June 26, 2024 5:54pm FPC LAB WORK July 14, 2024 4 :00am MONTHLY EXAM July 14, 2024 4:0 5pm FPC LAB WORK July 15, 2024 5 :00am Chief Complaint Admit Date FPC LAB WORK June 09, 2024 5:00am FPC LAB WORK June 15 3:15pm NEW CONCERN June 26, 2024 5:54pm FPC LAB WORK July 14, 2024 4 :00am MONTHLY EXAM July 14, 2024 4:0 5pm FPC LAB WORK July 15, 2024 5 :00am MONTHLY EXAM August 17, 2024 4:4 9pm FPC LAB WORK August 25, 2024 4 :00am Chief Complaint Admit Date FPC LAB WORK June 15 3:15pm NEW CONCERN June 26, 2024 5:54pm FPC LAB WORK July 14, 2024 4 :00am MONTHLY EXAM July 14, 2024 4:0 5pm FPC LAB WORK July 15, 2024 5 :00am MONTHLY EXAM August 17, 2024 4:4 9pm FPC LAB WORK August 25, 2024 4 :00am FPC LAB WORK September 08, 2024 5:00 am Chief Complaint Admit Date NEW CONCERN June 26, 2024 5:54pm FPC LAB WORK July 14, 2024 4 :00am MONTHLY EXAM July 14, 2024 4:0 5pm FPC LAB WORK July 15, 2024 5 :00am MONTHLY EXAM August 17, 2024 4:4 9pm FPC LAB WORK August 25, 2024 4 :00am FPC LAB WORK September 08, 2024 5:00 am [...] Date NEW CONCERN June 26, 2024 5:54pm FPC LAB WORK July 14, 2024 4 :00am MONTHLY EXAM July 14, 2024 4:0 5pm FPC LAB WORK July 15, 2024 5 :00am MONTHLY EXAM August 17, 2024 4:4 9pm FPC LAB WORK August 25, 2024 4 :00am FPC LAB WORK September 08, 2024 5:00 am SEVERE HYPOGLYCEMIA/UTI October 18, 2024 9:38pm SEVERE HYPOGLYCEMIA/UTI October 19, 2024 6:52pm SEVERE HYPOGLYCEMIA/UTI October 20, 2024 11:11am Chief Complaint Admit Date MONTHLY EXAM August 17, 2024 4:4 9pm FPC LAB WORK August 25, 2024 4 :00am FPC LAB WORK September 08, 2024 5:00 am MONTHLY EXAM September 15, 2024 4:00p m FPC LAB WORK October 06, 2024 5:0 0am SEVERE HYPOGLYCEMIA/UTI October 18, 2024 9:38pm SEVERE HYPOGLYCEMIA/UTI October 19, 2024 6:52pm SEVERE HYPOGLYCEMIA/UTI October 20, 2024 11:11am Reason for Visit Admit Date Abrasion of forehead October 18, 2024 9:3 8pm Diabetic hypoglycemia October 18, 2024 9: 38pm Fall October 18, 2024 9:38 pm Skin tear of forearm without complicatio n October 18, 2024 9:38pm Traumatic hematoma of forehead October 9:38pm Acute UTI October 18, 2024 9:38 pm Chief Complaint Admit Date MONTHLY EXAM August 17, 2024 4:4 9pm FPC LAB WORK August 25, 2024 4 :00am FPC LAB WORK September 08, 2024 5:00 am MONTHLY EXAM September 15, 2024 4:00p m FPC LAB WORK October 06, 2024 5:0 0am SEVERE HYPOGLYCEMIA/UTI October 18, 2024 9:38pm SEVERE HYPOGLYCEMIA/UTI October 19, 2024 6:52pm SEVERE HYPOGLYCEMIA/UTI October 20, 2024 11:11am RE ADMISSION EXAM October 21, 2024 5:45 pm Chief Complaint Admit Date FPC LAB WORK August 25, 2024 4 :00am FPC LAB WORK September 08, 2024 5:00 am MONTHLY EXAM September 15, 2024 4:00p m FPC LAB WORK October 06, 2024 5:0 0am SEVERE HYPOGLYCEMIA/UTI October 18, 2024 9:38pm SEVERE HYPOGLYCEMIA/UTI October 19, 2024 6:52pm SEVERE HYPOGLYCEMIA/UTI October 20, 2024 11:11am RE ADMISSION EXAM October 21, 2024 5:45 pm Monthly Exam November 10, 2024 4:19p m FPC LAB WORK November 17, 2024 4: 50am Summary Purpose Additional Source Comments Reason for [...] June 26, 2024 End: June 26, 2024 eDbora Schneider NP PIPE BOWLS PAINT TRIMMER-C Attending Provider Active Start: June 26, 2024 [...] End: August 17, 2024 Debora Schneider NP PIPE BOWLS PAINT TRIMMER-C Attending Provider Active Start: August 17, 2024 [...] 2024 End: August 24, 2024 Debora Schneider PIPE BOWLS PAINT TRIMMER, PIPE BOWLS PAINT TRIMMER-C Other Provider Active S tart: August 24, [...] MD Primary Care Provider Active Debora Schneider PIPE BOWLS PAINT TRIMMER, PIPE BOWLS PAINT TRIMMER-C Attending Provider Active Team Status: Inactive Member [...] 2024 End: June 01, 2024 Debora Schneider PIPE BOWLS PAINT TRIMMER, PIPE BOWLS PAINT TRIMMER-C Attending Provider Active Start: June 01, 2024 [...] Other Provider Active Start: October 20, 2024 Team Status: Active Member Role/Relationship Status Dates Dr. Donato Sepulveda MD Primary Care Provider Active Team Status: Inactive Member Role/Relationship Status Dates Dr. Donato Sepulveda MD Primary Care Provider Active Start: August 17, 2024 End: August 17, 2024 Debora Schneider PIPE BOWLS PAINT TRIMMER, PIPE BOWLS PAINT TRIMMER-C Attending Provider Active Start: August 17, 2024 End: August 17, 2024 Team Status: Inactive Member Role/Relationship Status Dates Dr. Armando Rich MD Attending Provider Active Start: August 24, 2024 End: August 24, 2024 Dr. Armando Rich MD Referring Provider Active Start: August 24, 2024 End: August 24, 2024 Dr. Donato Sepulveda MD Primary Care Provider Active Start: August 24, 2024 End: August 24, 2024 Debora Schneider PIPE BOWLS PAINT TRIMMER, PIPE BOWLS PAINT TRIMMER-C Other Provider Active S tart: August 24, 2024 End: August 24, 2024 Team Status: Inactive Member Role/Relationship Status Dates Dr. Donato Sepulveda MD Primary Care Provider Active Start: August 25, 2024 End: August 25, 2024 Donato COLVIN MD Attending Provider Active Start: August 25, 2024 End: August 25, 2024 Donato COLVIN MD Referring Provider Active Start: August 25, 2024 End: August 25, 2024 Team Status: Inactive Member Role/Relationship Status Dates Dr. Donato Sepulveda MD Primary Care Provider Active Start: September 08, 2024 End: September 08, 2024 Donato COLVIN MD Attending Provider Active Start: September 08, 2024 End: September 08, 2024 Team Status: Inactive Member Role/Relationship Status Dates Dr. Donato Sepulveda MD Primary Care Provider Active Start: September 15, 2024 End: September 15, 2024 Dr. Dnoato Sepulveda MD Attending Provider Active Start: September 15, 2024 End: September 15, 2024 Team Status: Active Member Role/Relationship Status Dates Dr. Donato Sepulveda MD Primary Care Provider Active Start: October 06, 2024 Donato COLVIN MD Attending Provider Active Start: October 06, 2024 Team Status: Inactive Member Role/Relationship Status Dates Dr. Donato Sepulveda MD Primary [...] October 20, 2024 Team Status: Active Member Role/Relationship Status Dates Dr. Donato Sepulveda MD Primary [...] October 19, 2024 Team Status: Active Member Role/Relationship Status Dates Dr. Donato Sepulveda MD Primary [...] Other Provider Active Start: October 20, 2024 Team Status: Active Member Role/Relationship Status Dates Dr. Donato Sepulveda MD Primary Care Provider Active Start: November 17, 2024 Donato COLVIN MD Attending Provider Active Start: November 17, 2024 Team Status: Inactive Member Role/Relationship Status Dates Dr. Donato Sepulveda MD Primary Care Provider Active Start: October 21, 2024 End: October 21, 2024 Debora Schneider NP, PIPE BOWLS PAINT TRIMMER-C Attending Provider Active Start: October 21, 2024 End: October 21, 2024 Team Status: Active Member Role/Relationship Status Dates Dr. Donato Sepulveda MD Primary Care Provider Active Start: November 17, 2024 Donato COLVIN MD Attending Provider Active Start: November 17, 2024 Team Status: Inactive Member Role/Relationship Status Dates Dr. Armando Rich MD Attending Provider Active Start: August 24, 2024 End: August 24, 2024 Dr. Armando Rich MD Referring Provider Active Start: August 24, 2024 End: August 24, 2024 Dr. Donato Sepulveda MD Primary Care Provider Active Start: August 24, 2024 End: August 24, 2024 Debora Schneider NP, PIPE BOWLS PAINT TRIMMER-C Other Provider Active S tart: August 24, 2024 End: August 24, 2024 Team Status: Inactive Member Role/Relationship Status Dates Dr. Donato Sepulveda MD Primary Care Provider Active Start: August 25, 2024 End: August 25, 2024 Donato COLVIN MD Attending Provider Active Start: August 25, 2024 End: August 25, 2024 Donato COLVIN MD Referring Provider Active Start: August 25, 2024 End: August 25, 2024 Team Status: Inactive Member Role/Relationship Status Dates Dr. Donato Sepulveda MD Primary Care Provider Active Start: September 08, 2024 End: September 08, 2024 Donato COLVIN MD Attending Provider Active Start: September 08, 2024 End: September 08, 2024 Team Status: Inactive Member Role/Relationship Status Dates Dr. Donato Sepulveda MD Primary Care Provider Active Start: September 15, 2024 End: September 15, 2024 Dr. Donato Sepulveda MD Attending Provider Active Start: September 15, 2024 End: September 15, 2024 Team Status: Active Member Role/Relationship Status Dates Dr. Donato Sepulveda MD Primary Care Provider Active Start: October 06, 2024 Donato COLVIN MD Attending Provider Active Start: October 06, 2024 Team Status: Inactive Member Role/Relationship Status Dates Dr. Donato Sepulveda MD Primary [...] October 20, 2024 Team Status: Active Member Role/Relationship Status Dates Dr. Donato Sepulveda MD Primary [...] October 19, 2024 Team Status: Active Member Role/Relationship Status Dates Dr. Donato Sepulveda MD Primary [...] Other Provider Active Start: October 20, 2024 Team Status: Inactive Member Role/Relationship Status Dates Dr. Donato Sepulveda MD Primary Care Provider Active Start: October 21, 2024 End: October 21, 2024 Debora Schneider NP, PIPE BOWLS PAINT TRIMMER-C Attending Provider Active Start: October 21, 2024 End: October 21, 2024 Team Status: Inactive Member Role/Relationship Status Dates Dr. Donato Sepulveda MD Primary Care Provider Active Start: November 10, 2024 End: November 10, 2024 Dr. Donaot Sepulveda MD Attending Provider Active Start: November 10, 2024 End: November 10, 2024 Team Status: Active Member Role/Relationship Status Dates Dr. Donato Sepulveda MD Primary Care Provider Active Start: November 17, 2024 Donato COLVIN MD Attending Provider Active Start: November 17, 2024 Donato COLVIN MD Referring Provider Active Start: November 17, 2024 Team Status: Active Member Role/Relationship Status Dates Dr. Donato Sepulveda MD Primary Care Provider Active Start: December 08, 2024 Donato COLVIN MD Attending Provider Active Start: December 08, 2024 INFORMATION SOURCE (unrecogn ized section and content) DATE CREATED AUTHOR 12/18/2024 [facility] FOR RECORDS PERTAINING TO PATIENTS WHO [...] BE BASED ON THE PRIMARY CLINICAL RECORDS. [email or web address] provides no warranty or guarantee of the accuracy or completeness of information in this document.
[2024-12-29 07:42] LABS: Anion Gap 10 (5-15); BUN 14 mg/dL (4-19); BUN/Creat Ratio 18.5 RATIO (10-20); Calcium,Total 9.4 mg/dL (7.6-11.0); Carbon Dioxide 28.6 mmol/L (21.0-32.0); Chloride 97 mmol/L (98-108); Glucose 336 mg/dL (70-99); Potassium 5.2 mmol/L (3.3-5.1); Vitamin D,25 Hydroxy 37.7 ng/mL (30-100)
== END ==
LOC: OLS.WHLEAS 04:00
PROVIDERS: PCP Internal Medicine; Referring Provider Internal Medicine; Visit Provider Internal Medicine
DX: E11.22 Type 2 diabetes mellitus with diabetic chronic kidney disease (principal); E11.21 Type 2 diabetes mellitus with diabetic nephropathy; N18.30 Chronic kidney disease, stage 3 unspecified; G20.A1 Parkinson's disease without dyskinesia, without mention of fluctuations
CPT/HCPCS: 36415; 80048; 82306; 83036

== ENCOUNTER → 2024-12-30 05:00 | Outpatient (REF) | payer MEDICARE, MEDICAID, SELFPAY ==
[2024-12-30 07:46] LABS: Potassium 4.3 mmol/L (3.3-5.1)
== END ==
LOC: OLS.WHLEAS 05:00
PROVIDERS: PCP Internal Medicine; Visit Provider Internal Medicine
DX: E87.5 Hyperkalemia (principal)
CPT/HCPCS: 36415; 84132

== ENCOUNTER → 2025-02-09 05:25 | Outpatient (REF) | payer MEDICARE, MEDICAID, SELFPAY ==
[2025-02-09 10:41] LABS: Vitamin D,25 Hydroxy 25.7 ng/mL (30-100)
== END ==
LOC: OLS.WHLEAS 05:25
PROVIDERS: PCP Internal Medicine; Visit Provider Internal Medicine
DX: G20.A1 Parkinson's disease without dyskinesia, without mention of fluctuations (principal); E11.22 Type 2 diabetes mellitus with diabetic chronic kidney disease; E11.21 Type 2 diabetes mellitus with diabetic nephropathy; N18.30 Chronic kidney disease, stage 3 unspecified; E55.9 Vitamin D deficiency, unspecified
CPT/HCPCS: 36415; 82306

== ENCOUNTER → 2025-02-17 05:00 | Outpatient (REF) | payer MEDICARE, MEDICAID, SELFPAY ==
[2025-02-17 08:50] LABS: Anion Gap 11 (5-15); BUN 10 mg/dL (4-19); BUN/Creat Ratio 13.1 RATIO (10-20); Calcium,Total 9.2 mg/dL (7.6-11.0); Carbon Dioxide 28.1 mmol/L (21.0-32.0); Chloride 98 mmol/L (98-108); Glucose 366 mg/dL (70-99); Potassium 4.1 mmol/L (3.3-5.1)
== END ==
LOC: OLS.WHLEAS 05:00
PROVIDERS: PCP Internal Medicine; Visit Provider Internal Medicine
DX: G20.A1 Parkinson's disease without dyskinesia, without mention of fluctuations (principal); E11.22 Type 2 diabetes mellitus with diabetic chronic kidney disease; N18.30 Chronic kidney disease, stage 3 unspecified; E11.21 Type 2 diabetes mellitus with diabetic nephropathy; I10 Essential (primary) hypertension
CPT/HCPCS: 36415; 80048

== ENCOUNTER → 2025-03-09 | Outpatient (REF) | payer MEDICARE, MEDICAID, SELFPAY ==
--- OUTSIDE RECORDS SUMMARY | 2025-03-09 04:16 | XMS RPT_ITS | CCD ---
Author Organization [facility] Care Team Providers Care Final Inspector Balance Wheel Name Role Phone Rachael Newman MD Unavailable Dr. Basilio Flores Primary Care Provider Wyatt SEEING EYE DOG TRAINER, SEEING EYE DOG TRAINER-C Debora Attending Provider Dr. Basilio Anderson Primary Care Provider Dr. Basilio Flores Primary Care Provider Tickangelic SEEING EYE DOG TRAINER, SEEING EYE DOG TRAINER-C Debora Attending Provider Dr. Basilio Anderson Primary Care Provider Tickton SEEING EYE DOG TRAINER, SEEING EYE DOG TRAINER-C Debora Attending Provider Dr. Basilio Anderson Primary Care Provider Dr. Donato Sepulveda Attending Provider Tickangelic SEEING EYE DOG TRAINER, SEEING EYE DOG TRAINER-Hernandez Cazares Attending Provider Dr. Basilio Anderson Primary Care Provider Dr. Donato Sepulveda Attending Provider Tickangelic SEEING EYE DOG TRAINER, SEEING EYE DOG TRAINER-Hernandez Cazares Attending Provider Dr. Basilio Anderson Primary Care Provider Tickton SEEING EYE DOG TRAINER, SEEING EYE DOG TRAINER-C Debora Attending Provider Dr. Donato Centeno Attending Provider Dr. Basilio Flores Primary Care Provider Tickton SEEING EYE DOG TRAINER, SEEING EYE DOG TRAINER-C Debora Attending Provider Dr. Donato Centeno Attending Provider Dr. Basilio Flores Primary Care Provider Tickton SEEING EYE DOG TRAINER, SEEING EYE DOG TRAINER-C Debora Attending Provider Dr. Basilio Anderson Primary Care Provider Tickangelic SEEING EYE DOG TRAINER, SEEING EYE DOG TRAINER-C Debora Attending Provider Dr. Donato Sepulveda Attending Provider Dr. Basilio Flores Primary Care Provider Tickton SEEING EYE DOG TRAINER, SEEING EYE DOG TRAINER-C Debora Attending Provider Dr. Donato Sepulveda Attending Provider Dr. Basilio Flores MD Primary Care Provider Donato Sepulveda MD Attending Provider Unavailyifan Sepulveda MD, Dr. Sewell Attending Provider Wyatt SEEING EYE DOG TRAINER-C, Debora Attending Provider Donato Sepulveda MD Referring Provider Dr. Basilio Owens MD Primary Care Provider Donato Sepulveda MD Attending Provider UnavailDr. Armando Elizabeth MD Attending Provider Dr. Armando Rich MD Referring Provider Dr. Donato Sepulveda MD Primary Care Provider Wyatt SEEING EYE DOG TRAINER-C, Debora Other Provider Dr. Basilio Flores MD Primary Care Provider Donato Sepulveda MD Attending Provider Unavaila keli Schneider SEEING EYE DOG TRAINER-C, Debora Attending Provider Dercik HILARIO, Dr. Sewell Attending Provider Dr. Donato Sepulveda MD Primary Care Provider Dr. Basilio Flores MD Primary Care Provider Donato Sepulveda MD Attending Provider Dr. Basilio Owens MD Primary Care Provider Donato Sepulveda MD Attending Provider UnavailDr. Zoltan Davidson DO Emergency Provider Dr. Anali Coello DO Admit Provider Dr. Anali Coello DO Attending Provider Dr. Anali Coello DO Other Provider Genaro HILARIO, Dr. Ángel Triana Attending Provider Genaro HILARIO, Dr. Ángel Triana Other Provider Tickangelic SEEING EYE DOG TRAINER-C, Debora Attending Provider Derick HILARIO, Donato Attending Provider Unavailyifan Sepulveda MD, Donato Referring Provider Selwyn Sepulveda MD, Dr. Sewell Attending Provider Tickangelic SEEING EYE DOG TRAINER-C, Debora Attending Provider Derick HILARIO, Dr. Sewell Primary Care Provider Derick HILARIO, Donato Attending Provider Unavailyifan Sepulveda MD, Donato Referring Provider Unavailyifan Sepulveda MD, Dr. Sewell Primary Care Physician Dr. Zoltan Garcia DO Emergency Department Physi alayna Dr. Anali Coello DO Admitting Physician Dr. Anali Coello DO Nurse Practitioner Genaro HILARIO, Dr. Ángel Triana Attending Physician Genaro HILARIO, Dr. Ángel Triana Nurse Practitioner Wyatt SEEING EYE DOG TRAINER-C, Debora Attending Physician Derick HILARIO, Dr. Sewell Attending Physician Donato Sepulveda MD Attending Physician Unavail able Derick HILARIO, Dr. Sewell Primary Care Physician Wyatt SEEING EYE DOG TRAINER-C, Debora Attending Physician Donato Moss Attending Unavailabl e Donato Sepulveda Primary Care Unavailable Donato Sepulveda Primary Care Unavailable Anali Coello Admitting Unavailable Anali Coello Consulting Unavailable Ángel Lam Attending Unavailable Flores, Basilio K Primary Care [...] Attending Unavailable Oleghe, Efewongbe Primary Care Unavailable Wyatt, Debora Attending Unavailable Oleghe, Efewongbe Primary Care Unavailable Oleghe, Efewongbe Primary Care Unavailable Wyatt, Debora Attending Unavailable Oleghe, Efewongbe Primary Care [...] e Oleghe OLS, Efewongbe Attending Unavailabl e Mark Basilio K Primary Care Unavailable Oleghe OLS, Efewongbe Attending Unavailabl e Debora Schneider Attending Unavailable Oleghe, Efewongbe Primary Care Unavailable [...] Care Unavailable Oleghe, Efewongbe Primary Care Unavailable TickDebora atwood Attending Unavailable Oleghe, Efewongbe Primary Care Unavailable Oleghe, Efewongbe Attending Unavailable Anali Coello Admitting Unavailable Oleghe, Efewongbe Primary Care Unavailable Anali Coello Consulting Unavailable Ángel Lam Attending Unavailable Ángel Lam Consulting Unavailable Anali Coello Attending Unavailable Flores, Basilio K Primary Care Unavailable TickDebora atwood Attending Unavailable Flores, Basilio K Primary Care Unavailable Oleghe, Efewongbe Attending Unavailable Flores, Basilio K Primary Care Unavailable TickDebora atwood Attending Unavailable Flores, Basilio K Primary Care Unavailable Oleghe, Efewongbe Attending Unavailable Flores, Basilio K Primary Care Unavailable Oleghe OLS, Efewongbe Attending Unavailabl e Flores, Basilio K Primary Care Unavailable Debora Schneider Attending Unavailable Armando Rich Attending Unavailable Armando Rich Referring Unavailable Wyatt Debora Consulting Unavailable Oleghe, Efewongbe Primary Care Unavailable Allergies Allergy Classification Reported Allergen(s) Allergy Type Date of Onset Reaction(s) Facility (1 source) Acetaminophen / HYDROcodone Drug Allergy 019 unknown [facility] Work Phone: (1 source) Acetaminophen / oxyCODONE Drug Allergy 019 unknown [facility] Work Phone: (1 source) Acetaminophen / Propoxyphene Drug Allergy 019 unknown [facility] Work Phone: (1 source) Baclofen Drug Allergy 019 unknown [facility] Work Phone: (1 source) Carbidopa / Levodopa Drug Allergy 019 unknown [facility] Work Phone: (1 source) Ibuprofen Drug Allergy 019 kidney disease [facility] Work Phone: (1 source) Ketoprofen Drug Allergy 019 unknown [facility] Work Phone: (1 source) LORazepam Drug Allergy 019 unknown [facility] Work Phone: (1 source) metFORMIN Drug Allergy unknown [facility] Work Phone: (20 sources) Naloxone; Translations: [naloxone] Drug Allergy 018 unknown, Nausea [facility] Work Phone: (1 source) oxaprozin Drug Allergy unknown [facility] Work Phone: (1 source) rofecoxib Drug Allergy unknown [facility] Work Phone: (1 source) rosiglitazone Drug Allergy siblings had severe reactions [facility] Work Phone: (1 source) Sertraline Drug Allergy unknown [facility] Work Phone: (1 source) Simvastatin Drug Allergy unknown [facility] Work Phone: (1 source) Sulfamethoxazole / Trimethoprim Drug Allergy unknown [facility] Work Phone: (1 source) venlafaxine; Translations: [EFFEXOR] Drug Allergy unknown [facility] Work Phone: (20 sources) Carbidopa Drug Allergy 018 Nausea [facility] (20 sources) HYDROcodone; Translations: [hydrocodone bitartrate] Drug Allergy 018 Nausea [facility] (20 sources) Ketoprofen Drug Allergy 018 Unknown [facility] (20 sources) Levodopa Drug Allergy 018 Nausea [facility] (20 sources) LORazepam Drug Allergy 018 hallucination [facility] (20 sources) metFORMIN; Translations: [metformin HCl] Drug Allergy Nausea [facility] (20 sources) oxaprozin Drug Allergy Nausea [facility] (20 sources) oxyCODONE; Translations: [oxycodone HCl] Drug Allergy Nausea [facility] (20 sources) Propoxyphene; Translations: [propoxyphene HCl] Drug Allergy Nausea [facility] (20 sources) rofecoxib Drug Allergy Nausea [facility] (20 sources) rosiglitazone; Translations: [rosiglitazone maleate] Drug Allergy Nausea [facility] (20 sources) Sertraline; Translations: [sertraline HCl] Drug Allergy haullucination [facility] (20 sources) Simvastatin Drug Allergy Nausea [facility] (20 sources) Sulfamethoxazole Drug Allergy Rash [facility] (20 sources) Trimethoprim Drug Allergy Rash [facility] (20 sources) venlafaxine; Translations: [venlafaxine HCl] Drug Allergy Nausea [facility] (20 sources) NSAIDS (Non-Steroidal Anti-Inflamma; Translations: [NSAIDS (Non-Steroidal Anti-Inflamma] Propensity to adverse reactions PT UNSURE OF REACTION [facility] (1 source) Carbidopa Drug Allergy [facility] (1 source) Ketoprofen Drug Allergy [facility] (1 source) Levodopa Drug Allergy [facility] (1 source) LORazepam Drug Allergy [facility] (1 source) oxaprozin Drug Allergy [facility] (1 source) rofecoxib Drug Allergy [facility] (1 source) Simvastatin Drug Allergy [facility] (1 source) Sulfamethoxazole Drug Allergy [facility] (1 source) Trimethoprim Drug Allergy [facility] Medications Current Medications Medication Drug Class(es) Dates Sig (Normalized) Sig (Original) acetaminophen 325 mg oral tablet (20 sources) Start: 10-18-2024 take 2 tablets by mouth every four hours as needed for pain Start: 03-16-2019 TYLENOL 325 MG CAPS takes two tabs every 4 hours as needed ACETAMINOPHEN [id number] Rachael Newman MD Start: 09-20-2017 take 1 tablet by rufina th twice daily Start: 09-20-2017 take 650 mg by mouth [...] Hydroxide-Simeth (Advanced Antacid-Antigas) 400-400-40 mg/5 mL suspension (6 sources) Start: 10-18-2024 Alum-Mag Hydroxide-Simeth (Advanced Antacid-Antigas) 400-400-40 mg/5 mL suspension Active 15 mL PO Q4H as needed for indigestion October 18, 2024 12:00am do not exceed 12 doses in a 24 hour period aluminum hydroxide 80 mg/ml / magnesium hydroxide 80 mg/ml / simethicone 8 mg/ml oral suspension (4 sources) Start: 10-18-2024 cefdinir 300 mg oral capsule (9 sources) Cephalosporin Antibacterial Start: 10-20-2024 take 1 capsule by mouth twice daily cholecalciferol 0.05 mg oral tablet (10 sources) Vitamin D Start: 10-18-2024 dapagliflozin 10 mg oral tablet (18 sources) Sodium-Glucose Cotransporter 2 Inhibitor Start: 06-05-2023 take 1 tablet by mouth once daily Start: 06-05-2023 Dapagliflozin Propanediol (Dapagliflozin Propanediol 10 Mg Tablet) 10 mg tablet Active MG June 05, 2023 12:00am dextran 70 1 mg/ml / hypromellose 3 mg/ml ophthalmic solution (4 sources) Plasma Volume Hat Block Maker Start: 10-18-2024 take 0.1-0.3 drop(s) into the eye(s) twice daily Dextran 70-Hypromellose (Genteal Tears Mild) 0.1-0.3 % drops (6 sources) Start: 10-18-2024 take 0.1-0.3 drop(s) into the eye(s) twice daily Dextran 70-Hypromellose (Genteal Tears Mild) 0.1-0.3 % drops Active 1 NMA EACH EYE TWICE A DAY October 18, 2024 12:00am Dulaglutide (20 sources) GLP-1 Receptor Agonist Start: 08-24-2024 Start: 08-24-2024 Dulaglutide (T rulicity) 4.5 mg/0.5 [...] DULoxetine 30 mg delayed release oral capsule (20 sources) Serotonin and Norepinephrine Reuptake Inhibitor Start: 08-24-2024 End: 10-18-2024 take 1 capsule by mouth once daily furosemide 20 mg oral tablet (19 sources) Loop Diuretic Start: 06-05-2023 take 1 tablet by mouth once daily Start: 06-05-2023 Furosemide Act alonso MG June 05, 2023 12:00am Start: 03-16-2019 FUROSEMIDE TAB S takes 20mg at night and 40mg twice daily FUROSEMIDE TABS [id number] Rachael Newman MD glucagon (rdna) 1 mg injecti on (17 sources) Antihypoglycemic Agent Start: 06-08-2023 3 ml insulin glargine 100 un t/ml pen injector (20 sources) Insulin Analog Start: 10-20-2024 Start: 06-08-2023 End: 10-20-2024 Insulin Glargine (Lantus [...] June 08, 2023 1:00am NOON Start: 12-16-2019 End: 08-24-2024 Insulin Glargine 100 UNIT/ML solution Discontinued 42 U SC EVERY EVENING December 16, 2019 12:00am August 24, 2024 8:45am DM Start: 12-16-2019 Insulin Glargi ne Active 42 [...] takes 46 units twice daily INSULIN GLARGINE [id number] Rachael Newman MD Start: 04-06-2015 End: 09-26-2017 Insulin Glargine 100 UNIT/ML solution Discontinued 76 U SC AT BEDTIME April 06, 2015 1:00am September 26, 2017 3:18pm lidocaine 0.04 mg/mg medicated patch (20 sources) Antiarrhythmic, Amide Local Anesthetic Start: 10-19-2024 Start: 06-08-2023 End: 10-18-2024 Lidocaine (Dermacinrx Lidoca n) 5 % adhesive patch,medicated Discontinued 1 NMA TOPICAL DAILY June 08, 2023 1:00am October 18, 2024 6:08pm leave on most painful area for up to 12 hrs linaclotide 0.29 mg oral capsule (18 sources) Guanylate Cyclase-C Agonist Start: 06-05-2023 take 1 capsule by mouth once daily metFORMIN hydrochloride 1000 mg oral tablet (20 sources) Biguanide Start: 10-18-2024 take 1 tablet by mouth twice daily Start: 06-05-2023 End: 10-18-2024 Metformin 750 mg [...] 12:00am ondansetron 4 mg disintegrating oral tablet (10 sources) Serotonin-3 Receptor Antagonist Start: 10-18-2024 take 1 tablet by mouth every six hours as needed for nausea and vomiting oxyCODONE hydrochloride 5 mg oral tablet (20 sources) Opioid Agonist Start: 01-29-2025 End: 02-28-2025 take 1 tablet by mouth twice daily Oxycodone 5 mg tablet Discontinued 5 mg PO TWICE A DAY 60 30 0 January 29, 2025 February 27, 2025 12:00am February 28, 2025 12:10am Chronic pain Other chronic pain pain Start: 11-30-2024 End: 01-28-2025 take 1 tablet by mouth twice daily Oxycodone 5 mg tablet Discontinued 5 mg PO TWICE A DAY 60 30 0 December 29, 2024 January 27, 2025 12:00am January 28, 2025 12:11am Chronic pain Other chronic pain pain Start: [...] three times daily as needed OXYCODONE HCL [id number] Rachael Newman MD Start: 07-14-2015 End: 09-20-2017 [...] 4:25pm FOR BREAKTHROUGH PAIN polyethylene glycol 3350 170 00 mg powder for oral solution (20 sources) Osmotic Laxative Start: 10-18-2024 Start: 06-08-2023 End: 10-18-2024 Polyethylene Glycol 3350 (Cl earlax) 17 gram/dose powder Discontinued 17 g PO DAILY as needed for constipation June 08, 2023 1:00am October 18, 2024 6:08pm microencapsulated potassium chloride 20 meq extended release oral tablet (18 sources) Start: 06-05-2023 take 2 tablets by mo [facility] once daily Start: 06-05-2023 take 40 mEq by mouth once curly y Potassium Chloride Active 40 MEQ PO DAILY June 05, 2023 1:00am Completed/Discontinued Medications Medication Drug Class(es) Dates Sig (Normalized) Sig (Original) amoxicillin 500 mg oral capsule (1 source) Penicillin-class Antibacterial Start: 03-16-2019 AMOXICILLIN 500 MG CAPS takes as directed prior to dental procedures AMOXICILLIN [id number] Rachael Newman MD aspirin 325 mg oral [...] takes one tab once daily ATORVASTATIN CALCIUM [id number] Rachael Newman MD bacillus coagulans [id number] unt / inulin 250 mg oral capsule [...] TABS takes one tab daily DIPHENHYDRAMINE HCL [id number] Rachael Newman MD Start: 03-16-2019 BENADRYL ALLER GY 25 MG CAPS takes one tab once daily DIPHENHYDRAMINE HCL [id number] Rachael Newman MD doxepin hydrochloride 10 mg oral capsule (1 source) Tricyclic Antidepressant Start: 03-16-2019 DOXEPIN HCL 10 MG CAPS takes two tabs daily DOXEPIN HCL [id number] Rachael Newman MD famotidine 20 mg oral [...] CAPS takes one tab once daily GABAPENTIN [id number] Rachael Newman MD Insulin Glargine 100 UNIT/ML solution (11 sources) Start: 12-16-2019 End: 08-24-2024 Insulin Glargine [...] U subcut 3 TIMES DAILY WITH MEALS Protocol: Custom Sliding Scale Condition: mg/dl range Dose/Route: Number of Units Condition: 201-250 Dose/Route: 4 Condition: 251-300 Dose/Route: 6 Condition: 301-350 Dose/Route: 8 Condition: 351-400 Dose/Route: 10 Condition: >400 Dose/Route: 12 December 16, 2019 12:00am June 08, 2023 9:23am DM Please contact the information source for Protocol details. Start: 12-16-2019 End: 06-08-2023 Insulin Aspart U-100 100 UNI TS/ML insulin pen Discontinued 0 U subcut 3 TIMES DAILY WITH MEALS December 16, 2019 12:00am June 08, 2023 9:23am DM Please contact the information source for Protocol details. Start: 12-16-2019 End: 06-08-2023 inject 10 [IU] by subcutaneous injection once daily Insulin Aspart U-100 Discontinued 10 UNITS subcut DAILY@09December 16, 2019 12:00am June 08, 2023 9:23am Start: 03-16-2019 NOVOLOG 100 UN IT/ML SOLN sliding scale three times daily INSULIN ASPART [id number] Rachael Newman MD Start: 04-25-2015 End: 07-14-2015 Insulin Aspart U-100 (Novolo g Flexpen U-100 Insulin) 100 UNITS/ML Flexpen Discontinued 0 U SC 3 TIMES DAILY WITH MEALS Protocol: Custom Sliding Scale Condition: mg/dl range Dose/Route: Number of Units Condition: 151-200 Dose/Route: 2 Condition: 201-250 Dose/Route: 4 Condition: 251-300 Dose/Route: 6 Condition: 301-350 Dose/Route: 8 Condition: 351-400 Dose/Route: 10 Condition: above 400 Dose/Route: April 25, 2015 1:00am July 14, 2015 4:24pm Please contact the information source for Protocol details. Start: 04-25-2015 End: 09-26-2017 Insulin Aspart U-100 100 UNI TS/ML insulin pen Discontinued 10 U SC WITH BREAKFAST April 25, 2015 1:00am September 26, 2017 3:18pm Start: 04-25-2015 End: 09-26-2017 Insulin Aspart U-100 [...] TABS takes one tab once daily LISINOPRIL [id number] Rachael Newman MD melatonin 3 mg oral tablet (20 sources) Start: 12-16-2019 End: 06-08-2023 take 1 tablet by mouth at bedtime Melatonin 3 MG tablet Discontinued 3 mg PO AT BEDTIME December 16, 2019 12:00am June 08, 2023 9:23am SLEEP Start: 03-16-2019 MELATONIN 10 M G TABS takes one tab once daily MELATONIN [id number] Rachael Newman MD meloxicam 7.5 mg oral [...] CPDR takes one tab once daily OMEPRAZOLE [id number] Rachael Newman MD polyethylene glycol 400 10 mg/ml ophthalmic solution (4 sources) Start: 06-08-2023 End: 10-18-2024 take 1 drop(s) into the eye(s) every six hours as needed Polyethylene Glycol 400 (Dry Eye Relief (Peg 400)) 1 % drops Discontinued 1 NMA EACH EYE EVERY 6 HOURS as needed for dry eye(s) June 08, 2023 1:00am October 18, 2024 6:07pm Polyethylene Glycol 400 (Dry Eye Relief (Peg 400)) 1 % drops (13 sources) Start: 06-08-2023 End: 10-18-2024 take 1 [...] 12:00am promethazine hydrochloride 12.5 mg oral tablet (17 sources) Phenothiazine Start: 06-08-2023 End: 10-18-2024 take [...] takes one tab once daily RANITIDINE HCL [id number] Rachael Newman MD rOPINIRole 0.5 mg oral [...] venlafaxine 75 mg extended release oral capsule (18 sources) Serotonin and Norepinephrine Reuptake Inhibitor Start: [...] [Chronic kidney disease, stage 3 unspecified] Onset: 03-02-2025 Complication of device; implant or graft (20 sources) Prosthetic joint infection; Translations: [Infection and inflammatory reaction due to unspecified internal joint prosthesis, initial encounter] 12-16-2019 Episodic Diabetes mellitus with complications (20 sources) Hypoglycemia due to diabetes mellitus; Translations: [Type 2 diabetes mellitus with hypoglycemia without coma] Onset: 10-26-2024 10-18-2024 Chronic Diabetes mellitus without complication (20 sources) Type 2 diabetes mellitus; Translations: [Type 2 diabetes mellitus without complications] 12-16-2019 Chronic Diseases of white blood cells (10 sources) Leukocytosis; Translations: [Elevated white blood cell count, unspecified] 10-18-2024 Chronic Disorders of lipid metabolism (20 sources) Hyperlipidemia; Translations: [Hyperlipidemia, unspecified] 12-16-2019 Chronic Esophageal disorders (20 sources) Gastroesophageal reflux disease; Translations: [Gastro-esophageal reflux disease without esophagitis] 12-16-2019 Chronic Essential hypertension (20 sources) Hypertensive disorder; Translations: [Essential (primary) hypertension] 12-16-2019 Chronic Fluid and electrolyte disorders (20 sources) Hyperkalemia; Translations: [Hyperkalemia] Onset: 01-21-2025 12-16-2019 Episodic Genitourinary symptoms and ill-defined conditions (10 sources) Abnormal urinalysis; Translations: [Unspecified abnormal findings in urine] 10-18-2024 Episodic Nutritional deficiencies (2 sources) Vitamin D deficiency, unspecified; Translations: [Vitamin D deficiency, unspecified] Onset: 02-05-2025 Chronic Open wounds of head; neck; and trunk (18 sources) Laceration of forehead; Translations: [Laceration without foreign body of other part of head, initial encounter] 06-05-2023 Episodic Osteoarthritis (1 source) Unilateral primary osteoarthritis, right knee; Translations: [Unilateral primary osteoarthritis, right knee] Onset: 08-27-2024 Chronic Other injuries and conditions due to external causes (18 sources) Closed injury of head; Translations: [Unspecified injury of head, initial encounter] 06-05-2023 Episodic Other nervous system disorders (20 sources) Chronic pain; Translations: [Other chronic pain] 12-18-2019 Chronic Other non-traumatic joint disorders (15 sources) Pain in right knee; Translations: [Pain in both knees] 05-04-2024 Episodic Parkinson`s disease (20 sources) Parkinson's disease; Translations: [Parkinson's disease] 12-16-2019 Chronic Parkinson`s disease (2 sources) Parkinson`s disease; Translations: [Parkinson's disease without dyskinesia, without mention of fluctuations] Onset: 02-12-2025 Spondylosis; intervertebral disc disorders; other back problems (20 sources) Cervical spondylosis; Translations: [Lumbosacral spondylosis without myelopathy] Onset: 03-16-2019 03-16-2019 Chronic Urinary tract infections (17 sources) Acute urinary tract infection; Translations: [Urinary tract infection, site not specified] 10-18-2024 Episodic Past or Other Problems Problem Classification Problem Date Documented Da te Episodic/Chronic E Codes: Fall (20 sources) Fall; Translations: [Unspecified fall, initial encounter] Onset: 10-26-2024 06-16-2023 Episodic Open wounds of extremities (18 sources) Tear of skin; Translations: [Laceration without foreign body of unspecified forearm, initial encounter] Onset: 10-26-2024 10-18-2024 Episodic Residual codes; unclassified (1 source) Altered mental status, unspecified; Translations: [Altered mental status, unspecified] Onset: 07-14-2024 Episodic Superficial injury; contusion (20 sources) Contusion of upper limb; Translations: [Contusion of unspecified upper arm, initial encounter] Onset: 10-26-2024 06-16-2023 Episodic Unclassified (1 source) Problem Results Test Name Value Interpretation Reference Range Facility Anion gap in Serum or Plasma Ordered By: Donato Sepulveda on 02-17-2025 Anion gap [Moles/Vol] 11 mmol/L 09-17 [facility] BUN/creatinine ratioOrdered By: Donato Sepulveda on 02-17-2025 Urea nitrogen/Creatinine [Mass ratio] 13.1 mg/mg 02-22 [facility] Carbon dioxide, total [Moles /volume] in Central venous bloodOrdered By: Donato Sepulveda on 02-17-2025 CO2 [Moles/Vol] 28.1 mmol/L 21.0-32.0 [facility] Chloride assayOrdered By: Livier Sepulveda on 02-17-2025 Chloride [Moles/Vol] 98 mmol/L 98-108 [facility] Glomerular filtration rate ( GFR) estimation/1.73 sq m using serum, plasma, or whole bOrdered By: Donato Sepulveda on 02-17-2025 GFR/1.73 sq M.predicted among non-blacks MDRD (S/P/Bld) [Vol rate/Area] 80 mL/min/{1.73_m2} >60 [facility] Comment on above: mL/min/1.73m2 CKD-EP I Creatinine Equation (2020) Potassium measurement (mass/ volume)Ordered By: Donato Sepulveda on 02-17-2025 Potassium (Unsp spec) [Mass/Vol] 4.1 mmol/L 3.3-5.1 [facility] Serum creatinine measurement (mass/volume)Ordered By: Donato Sepulveda on 02-17-2025 Creatinine [Mass/Vol] 0.75 mg/dL 0.70-1.20 [facility] Serum glucose measurement (m ass/volume)Ordered By: Donato Sepulveda on 02-17-2025 Glucose [Mass/Vol] 366 mg/dL High 70-99 [facility] Serum or plasma calcium serge urement (mass/volume)Ordered By: Donato Sepulveda on 02-17-2025 Calcium [Mass/Vol] 9.2 mg/dL 7.6-11.0 [facility] Serum or plasma urea nitroge n measurement (mass/volume)Ordered By: Donato Sepulveda on 02-17-2025 Urea nitrogen [Mass/Vol] 10 mg/dL 4-19 [facility] Sodium levelOrdered By: Raul Sepulveda on 02-17-2025 Sodium [Moles/Vol] 137 mmol/L 133-145 [facility] Potassium measurement (mass/ volume)Ordered By: Donato Sepulveda on 12-30-2024 Potassium (Unsp spec) [Mass/Vol] 4.3 mmol/L 3.3-5.1 [facility] Anion gap in Serum or Plasma Ordered By: Donato Sepulveda on 12-29-2024 Anion gap [Moles/Vol] 10 mmol/L 5-15 [facility] BUN/creatinine ratioOrdered By: Donato Sepulveda on 12-29-2024 Urea nitrogen/Creatinine [Mass ratio] 18.5 mg/mg 10-20 [facility] Carbon dioxide, total [Moles /volume] in Central venous bloodOrdered By: Donato Sepulveda on 12-29-2024 CO2 [Moles/Vol] 28.6 mmol/L 21.0-32.0 [facility] Chloride assayOrdered By: Livier Sepulveda on 12-29-2024 Chloride [Moles/Vol] 97 mmol/L Low 98-108 [facility] Glomerular filtration rate ( GFR) estimation/1.73 sq m using serum, plasma, or whole bOrdered By: Donato Sepulveda on 12-29-2024 GFR/1.73 sq M.predicted among non-blacks MDRD (S/P/Bld) [Vol rate/Area] 81 mL/min/{1.73_m2} >60 [facility] Comment on above: mL/min/1.73m2 CKD-EP I Creatinine Equation (2020) Hemoglobin A1c percentageOrd ered By: Donato Sepulveda on 12-29-2024 HbA1c (Bld) [Mass fraction] 9.3 % High <5.7 [facility] Comment on above: Normal < 5.7 % Predi abetic 5.7 - 6.4 % Diabetic >or= 6.5 % Please note range changes. Potassium measurement (mass/ volume)Ordered By: Donato Sepulveda on 12-29-2024 Potassium (Unsp spec) [Mass/Vol] 5.2 mmol/L High 3.3-5.1 [facility] Serum creatinine measurement (mass/volume)Ordered By: Donato Sepulveda on 12-29-2024 Creatinine [Mass/Vol] 0.74 mg/dL 0.70-1.20 [facility] Serum glucose measurement (m ass/volume)Ordered By: Donato Sepulveda on 12-29-2024 Glucose [Mass/Vol] 336 mg/dL High 70-99 [facility] Serum or plasma calcium serge urement (mass/volume)Ordered By: Donato Sepulveda on 12-29-2024 Calcium [Mass/Vol] 9.4 mg/dL 7.6-11.0 [facility] Serum or plasma urea nitroge n measurement (mass/volume)Ordered By: Donato Sepulveda on 12-29-2024 Urea nitrogen [Mass/Vol] 14 mg/dL 4-19 [facility] Sodium levelOrdered By: Raul medrano Harjitrjnoris on 12-29-2024 Sodium [Moles/Vol] 135 mmol/L 133-145 [facility] Hemoglobin A1c percentageOrd ered By: balaji Sepulveda on 12-08-2024 HbA1c (Bld) [Mass fraction] 10.2 % High <5.7 [facility] Comment on above: Normal < 5.7 % Predi abetic 5.7 - 6.4 % Diabetic >or= 6.5 % Please note range changes. Culture, Blood (WB)on 2024 CUB Blood cultures x2, from two different sites No growth in 5 days. Normal [facility] Comment on above: Performed By: #### L 501.080 #### [facility] [address] [place], [address] Bedside Glucoseon 10-20-2024 FINGERSTICK GLU 200 mg/dL High 74-106 [facility] Comment on above: Result Comment: JEWELS GEMENT OF PATIENT CARE PER NURSING PROTOCOL Performed By: #### L 501.080 #### [facility] [address] [place], [address] FINGERSTICK GLU 296 mg/dL High 74-106 [facility] Comment on above: Result Comment: JEWELS GEMENT OF PATIENT CARE PER NURSING PROTOCOL Performed By: #### L 501.080 #### [facility] [address] [place], [address] FINGERSTICK GLU 154 mg/dL High 74-106 [facility] Comment on above: Result Comment: JEWELS GEMENT OF PATIENT CARE PER NURSING PROTOCOL Performed By: #### L 501.080 #### [facility] [address] [place], [place], [address] [facility] deOrdered By: Ángel Lam on 10-20-2024 Glucose [Mass/Vol] 200 mg/dL High 74-106 [facility] Comment on above: MANAGEMENT OF PATIEN T CARE PER NURSING PROTOCOL Urine Cultureon 10-20-2024 [facility] Escherichia coli [place] Count 50,000-80,000 Escherichia coli: REACTION Ampicillin Islt [...] TMP SMX Islt BRANDEE <=20 S Normal [facility] Comment on above: Performed By: #### L 501.080 #### [facility] [address] [place], [place], [id number] Absolute lymphocyte countOrd ered By: Anali Coello on 10-19-2024 Lymphocytes Auto (Unsp spec) [#/Vol] 1.48 10*3/uL 0.83-4.51 [facility] Absolute neutrophil countOrd ered By: Anali Coello on 10-19-2024 Neutrophils (Bld) [#/Vol] 4.8 10*3/uL 2.0-7.7 [facility] Anion gap in Serum or Plasma Ordered By: Anali Coello on 10-19-2024 Anion gap [Moles/Vol] 10 mmol/L 5-15 [facility] Automated lymphocyte count a s percentage of total leukocytesOrdered By: Anali Coello on 10-19-2024 Lymphocytes/100 WBC Auto (Unsp spec) 21.5 % 19-41 [facility] BUN/creatinine ratioOrdered By: Anali Coello on 10-19-2024 Urea nitrogen/Creatinine [Mass ratio] 11.3 mg/mg 10-20 [facility] Basophil percentageOrdered B y: Anali Coello on 10-19-2024 Basophils/100 WBC (Bld) 0.3 % 0-1 [facility] Bedside Glucoseon 10-19-2024 FINGERSTICK GLU 313 mg/dL High 74-106 [facility] Comment on above: Result Comment: JEWELS GEMENT OF PATIENT CARE PER NURSING PROTOCOL Performed By: #### L 501.080 #### [facility] [address] [place], [address] FINGERSTICK GLU 291 mg/dL High [address] [place] [address] Comment on above: Result Comment: JEWELS GEMENT OF PATIENT CARE PER NURSING PROTOCOL Performed By: #### L 501.080 #### [facility] [address] [place], [address] FINGERSTICK GLU 220 mg/dL High [address] [place] [address] Comment on above: Result Comment: JEWELS GEMENT OF PATIENT CARE PER NURSING PROTOCOL Performed By: #### L 501.080 #### [facility] [address] [place], [address] FINGERSTICK GLU 132 mg/dL High [address] [place] [address] Comment on above: Result Comment: JEWELS GEMENT OF PATIENT CARE PER NURSING PROTOCOL Performed By: #### L 501.080 #### [facility] [address] [place], [address] FINGERSTICK GLU 112 mg/dL High -[address] [place] [address] Comment on above: Result Comment: JEWELS GEMENT OF PATIENT CARE PER NURSING PROTOCOL Performed By: #### L 501.080 #### [facility] [address] [place], [address] FINGERSTICK GLU 177 mg/dL High [address] [place] [address] Comment on above: Result Comment: JEWELS GEMENT OF PATIENT CARE PER NURSING PROTOCOL Performed By: #### L 501.080 #### [facility] [address] [place], [address] FINGERSTICK GLU 170 mg/dL High 74-106 [facility] Comment on above: Result Comment: JEWELS GEMENT OF PATIENT CARE PER NURSING PROTOCOL Performed By: #### L 501.080 #### [facility] [address] [place], [address] FINGERSTICK GLU 135 mg/dL High 74-106 [facility] Comment on above: Result Comment: JEWELS GEMENT OF PATIENT CARE PER NURSING PROTOCOL Performed By: #### L 501.080 #### [facility] [address] [place], [address] Bilirubin, totalOrdered By: Anali Coello on 10-19-2024 Bilirubin [Mass/Vol] 0.42 mg/dL 0.00-1.30 [facility] CBC W/Diff, Automatedon 10-04 Absolute Lymph 1.48 X10 3/uL Normal 0.83-4.51 [facility] Comment on above: Performed By: #### L 501.080 #### [facility] [address] [place], [address] Absolute Neut 4.8 X10 3/uL Normal 2.0-7.7 [facility] Comment on above: Performed By: #### L 501.080 #### [facility] [address] [place], [address] Basophils/100 WBC (Bld) 0.3 % Normal 0-1 [facility] Comment on above: Performed By: #### L 501.080 #### [facility] [address] [place], [address] Eosinophils/100 WBC (Bld) 0.6 % Normal 0-5 [facility] Comment on above: Performed By: #### L 501.080 #### [facility] [address] [place], [address] Erythrocyte distribution width (RBC) [Ratio] 12.9 % Normal 11.6-14.6 [facility] Comment on above: Performed By: #### L 501.080 #### [facility] [address] [place], [address] Hematocrit (Bld) [Volume fraction] 38.0 % Normal 37-47 [facility] Comment on above: Performed By: #### L 501.080 #### [facility] [address] [place], [address] Hemoglobin (Bld) [Mass/Vol] 12.4 g/dL Normal 12.0-15.0 [facility] Comment on above: Performed By: #### L 501.080 #### [facility] [address] [place], [address] IG% 0.300 Normal 0.0-0.9 [facility] Comment on above: Result Comment: IG% - Immature Granulocytes (promyelocytes, myelocytes and metamyelocytes) > 1% indicates that a LEFT SHIFT is Present. Performed By: #### L 501.080 #### [facility] [address] [place], [address] Lymphocytes/100 WBC (Bld) 21.5 % Normal 19-41 [facility] Comment on above: Performed By: #### L 501.080 #### [facility] [address] [place], [address] MCH (RBC) [Entitic mass] 29.7 pg Normal 27.0-32.0 [facility] Comment on above: Performed By: #### L 501.080 #### [facility] [address] [place], [address] MCHC (RBC) [Mass/Vol] 32.6 g/dL Normal 32-36 [facility] Comment on above: Performed By: #### L [id number] #### [facility] [address] [place], [address] MCV (RBC) [Entitic vol] 90.9 fL Normal 81-99 [facility] Comment on above: Performed By: #### L 501.080 #### [facility] [address] [place], [address] Monocytes/100 WBC (Bld) 7.3 % Normal 0-10 [facility] Comment on above: Performed By: #### L 501.080 #### [facility] [address] [place], [address] Neutrophils/100 WBC (Bld) 70.0 % Normal 47-70 [facility] Comment on above: Performed By: #### L 501.080 #### [facility] [address] [place], [address] Nucleated RBC (Bld) [#/Vol] 0 10*3/uL Normal 0-5 [facility] Comment on above: Performed By: #### L 501.080 #### [facility] [address] [place], [address] Platelet mean volume (Bld) [Entitic vol] 9.4 fL Normal 6.2-12.0 [facility] Comment on above: Performed By: #### L 501.080 #### [facility] [address] [place], [address] Platelets (Bld) [#/Vol] 181 10*3/uL Normal 150-450 [facility] Comment on above: Performed By: #### L 501.080 #### [facility] [address] [place], [address] RBC (Bld) [#/Vol] 4.18 10*6/uL Low 4.2-5.4 [facility] Comment on above: Performed By: #### L 501.080 #### [facility] [address] [place], [address] RDW SD 42.5 fl Normal 35.1-43.9 [facility] Comment on above: Performed By: #### L 501.080 #### [facility] [address] [place], [address] WBC (Bld) [#/Vol] 6.9 10*3/uL Normal 4.4-11.0 [facility] Comment on above: Performed By: #### L 501.080 #### [facility] [address] [place], [address] Carbon dioxide, total [Moles /volume] in Central venous bloodOrdered By: Anali Coello on 10-19-2024 CO2 [Moles/Vol] 23.7 mmol/L 21.0-32.0 [facility] Chloride assayOrdered By: Medina Coello on 10-19-2024 Chloride [Moles/Vol] 103 mmol/L 98-108 [facility] Comprehensive Metabolic Prof ilon 10-19-2024 Albumin [Mass/Vol] 3.6 g/dL Normal 3.4-4.8 [facility] Comment on above: Performed By: #### L 501.080 #### [facility] [address] [place], [address] Albumin/Globulin [Mass ratio] 1.5 {ratio} Normal 0.9-2.4 [facility] Comment on above: Performed By: #### L 501.080 #### [facility] [address] [place], [address] ALK PHOS 44 U/L Normal 35-104 [facility] Comment on above: Performed By: #### L 501.080 #### [facility] [address] [place], [address] ALT [Catalytic activity/Vol] 9 U/L Normal <=34 [facility] Comment on above: Performed By: #### L 501.080 #### [facility] [address] [place], [address] AST [Catalytic activity/Vol] 24 U/L Normal <=31 [facility] Comment on above: Performed By: #### L 501.080 #### [facility] [address] [place], [address] Bilirubin [Mass/Vol] 0.42 mg/dL Normal 0.00-1.30 [facility] Comment on above: Performed By: #### L 501.080 #### [facility] [address] [place], [address] BUN/CRE 11.3 RATIO Normal 10-20 [facility] Comment on above: Performed By: #### L 501.080 #### [facility] [address] [place], [address] Calcium [Mass/Vol] 8.7 mg/dL Normal 7.6-11.0 [facility] Comment on above: Performed By: #### L 501.080 #### [facility] [address] [place], [address] Chloride [Moles/Vol] 103 mmol/L Normal 98-108 [facility] Comment on above: Performed By: #### L [id number] #### [facility] [address] [place], [address] CO2 [Moles/Vol] 23.7 mmol/L Normal 21.0-32.0 [facility] Comment on above: Performed By: #### L 501.080 #### [facility] [address] [place], [address] Creatinine [Mass/Vol] 0.55 mg/dL Low 0.70-1.20 [facility] Comment on above: Performed By: #### L 501.080 #### [facility] [address] [place], [address] ECRCL 45.71 ml/min Low 50-250 [facility] Comment on above: Performed By: #### L 501.080 #### [facility] [address] [place], [address] GAP 10 Normal 5-15 [facility] Comment on above: Performed By: #### L 501.080 #### [facility] [address] [place], [address] GFR/1.73 sq M.predicted among non-blacks MDRD (S/P/Bld) [Vol rate/Area] 92 mL/min/{1.73_m2} Normal >60 [facility] Comment on above: Result Comment: mL/m in/1.73m2 CKD-EPI Creatinine Equation (2020) Performed By: #### L 501.080 #### [facility] [address] [place], [address] Globulin (S) [Mass/Vol] 2.4 g/dL Normal 2.2-4.2 [facility] Comment on above: Performed By: #### L 501.080 #### [facility] [address] [place], [address] Glucose [Mass/Vol] 132 mg/dL High 70-99 [facility] Comment on above: Performed By: #### L 501.080 #### [facility] [address] [place], [address] Potassium [Moles/Vol] 4.6 mmol/L Normal 3.3-5.1 [facility] Comment on above: Performed By: #### L 501.080 #### [facility] [address] [place], [address] Sodium [Moles/Vol] 136 mmol/L Normal 133-145 [facility] Comment on above: Performed By: #### L 501.080 #### [facility] [address] [place], [place], [id number] T PROT 6.0 g/dL Normal 5.9-8.4 [facility] Comment on above: Performed By: #### L 501.080 #### [facility] [address] [place], [place], [address] Urea nitrogen [Mass/Vol] 6 mg/dL Normal 4-19 [facility] Comment on above: Performed By: #### L 501.080 #### [facility] [address] [place], [place], [address] Eosinophil percentageOrdered By: Anali Coello on 10-19-2024 Eosinophils/100 WBC (Bld) 0.6 % 0-5 [facility] Erythrocyte distribution wid th ratioOrdered By: Anali Coello on 10-19-2024 Erythrocyte distribution width (RBC) [Ratio] 12.9 % 11.6-14.6 [facility] Erythrocyte distribution wid th standard deviationOrdered By: Anali Coello on 10-19-2024 Erythrocyte distribution width (RBC) [Ratio] 42.5 fl 35.1-43.9 [facility] Glomerular filtration rate ( GFR) estimation/1.73 sq m using serum, plasma, or whole bOrdered By: Anali Coello on 10-19-2024 GFR/1.73 sq M.predicted among non-blacks MDRD (S/P/Bld) [Vol rate/Area] 92 mL/min/{1.73_m2} >60 [facility] Comment on above: mL/min/1.73m2 CKD-EP I Creatinine Equation (2020) Hematocrit Auto (Bld) [Volum e fraction]Ordered By: Anali Coello on 10-19-2024 Hematocrit (Bld) [Volume fraction] 38.0 % 37-47 [facility] Hemoglobin measurementOrdere d By: Anali Coello on 10-19-2024 Hemoglobin (Bld) [Mass/Vol] 12.4 g/dL 12.0-15.0 [facility] Immature granulocytes/100 WB C Auto (Bld)Ordered By: Anali Coello on 10-19-2024 Immature granulocytes/100 WBC (Bld) 0.300 % 0.0-0.9 [facility] Comment on above: IG% - Immature Granu locytes (promyelocytes, myelocytes and metamyelocytes) > 1% indicates that a LEFT SHIFT is Present. Laboratory - Chemistry and C hemistry - challengeOrdered By: Anali Coello on 10-19-2024 AST [Catalytic activity/Vol] 24 U/L <32 [facility] Lactic Acidon 10-19-2024 Lactate [Moles/Vol] 1.4 mmol/L Normal 0.0-2.0 [facility] Comment on above: Performed By: #### L 501.080 #### [facility] [address] [place], [place], [address] Lactic acid measurementOrder ed By: Zoltan Garcia on 10-19-2024 Lactate [Moles/Vol] 1.4 mmol/L 0.0-2.0 [facility] MCV (mean corpuscular volume ) determinationOrdered By: Anali Coello on 10-19-2024 MCV (RBC) [Entitic vol] 90.9 fL 81-99 [facility] Magnesiumon 10-19-2024 Magnesium [Mass/Vol] 1.7 mg/dL Normal 1.5-2.2 [facility] Comment on above: Performed By: #### L 501.080 #### [facility] [address] [place], [place], [address] Magnesium measurement (mass/ volume)Ordered By: Anali Coello on 10-19-2024 Magnesium (Unsp spec) [Mass/Vol] 1.7 mg/dL 1.5-2.2 [facility] Mean corpuscular hemoglobin (MCH) determinationOrdered By: Anali Coello on 10-19-2024 MCH (RBC) [Entitic mass] 29.7 pg 27.0-32.0 [facility] Mean corpuscular hemoglobin concentration (MCHC) determinationOrdered By: Anali Coello on 10-19-2024 MCHC (RBC) [Mass/Vol] 32.6 g/dL 32-36 [facility] Mean platelet volume determi nationOrdered By: Anali Coello on 10-19-2024 Platelet mean volume (Bld) [Entitic vol] 9.4 fL 6.2-12.0 [facility] Monocyte percentageOrdered B y: Anail Coello on 10-19-2024 Monocytes/100 WBC (Bld) 7.3 % 0-10 [facility] Neutrophil percentageOrdered By: Anali Coello on 10-19-2024 Neutrophils/100 WBC (Bld) 70.0 % 47-70 [facility] Nucleated red blood cell per centageOrdered By: Anali Coello on 10-19-2024 Nucleated RBC/100 WBC (Bld) [Ratio] 0 % 0-5 [facility] Phosphoruson 10-19-2024 Phosphate [Mass/Vol] 2.8 mg/dL Normal 2.7-4.5 [facility] Comment on above: Performed By: #### L 501.080 #### [facility] [address] [place], [place] [address], [address] Platelet countOrdered By: Medina Coello on 10-19-2024 Platelets (Bld) [#/Vol] 181 10*3/uL 150-450 [facility] Potassium measurement (mass/ volume)Ordered By: Anali Coello on 10-19-2024 Potassium (Unsp spec) [Mass/Vol] 4.6 mmol/L 3.3-5.1 [facility] RBC Auto (Bld) [#/Vol]Ordere d By: Anali Coello on 10-19-2024 RBC (Bld) [#/Vol] 4.18 10*6/uL Low 4.2-5.4 [facility] Serum creatinine measurement (mass/volume)Ordered By: Anali Coello on 10-19-2024 Creatinine [Mass/Vol] 0.55 mg/dL Low 0.70-1.20 [facility] Serum globulin measurementOr dered By: Anali Coello on 10-19-2024 Globulin (S) [Mass/Vol] 2.4 g/dL 2.2-4.2 [facility] Serum glucose measurement (m ass/volume)Ordered By: Anali Coello on 10-19-2024 Glucose [Mass/Vol] 132 mg/dL High 70-99 [facility] Serum or plasma alanine rivera otransferase (ALT) measurementOrdered By: Anali Coello on 10-19-2024 ALT [Catalytic activity/Vol] 9 U/L <35 [facility] Serum or plasma albumin serge urement (mass/volume)Ordered By: Anali Coello on 10-19-2024 Albumin [Mass/Vol] 3.6 g/dL 3.4-4.8 [facility] Serum or plasma albumin/glob ulin mass ratioOrdered By: Anali Coello on 10-19-2024 Albumin/Globulin [Mass ratio] 1.5 {ratio} 0.9-2.4 [facility] Serum or plasma alkaline stephane sphatase measurementOrdered By: Anali Coello on 10-19-2024 ALP [Catalytic activity/Vol] 44 U/L 35-104 [facility] Serum or plasma calcium serge urement (mass/volume)Ordered By: Anali Coello on 10-19-2024 Calcium [Mass/Vol] 8.7 mg/dL 7.6-11.0 [facility] Serum or plasma urea nitroge n measurement (mass/volume)Ordered By: Anali Coello on 10-19-2024 Urea nitrogen [Mass/Vol] 6 mg/dL 4-19 [facility] Sodium levelOrdered By: Kayleen Coello on 10-19-2024 Sodium [Moles/Vol] 136 mmol/L 133-145 [facility] TSH DL <= 0.005 mIU/L QnOrde red By: Anali Coello on 10-19-2024 TSH Qn 1.130 uIU/mL 0.300-4.200 [facility] Thyroid Stim Hormone (TSH)on 10-19-2024 TSH 1.130 uIU/mL Normal 0.300-4.200 [facility] Comment on above: Performed By: #### L 501.080 #### [facility] [address] [place], [place] [address]. [place], [id number] Total proteinOrdered By: Connie Coello on 10-19-2024 Protein [Mass/Vol] 6.0 g/dL 5.9-8.4 [facility] White blood cell (WBC) count Ordered By: Anali Coello on 10-19-2024 WBC (Bld) [#/Vol] 6.9 10*3/uL 4.4-11.0 [facility] Absolute lymphocyte countOrd ered By: Zoltan Garcia on 10-18-2024 Lymphocytes Auto (Unsp spec) [#/Vol] 0.94 10*3/uL 0.83-4.51 [facility] Absolute neutrophil countOrd ered By: Zoltan Garcia on 10-18-2024 Neutrophils (Bld) [#/Vol] 17.9 10*3/uL High 2.0-7.7 [facility] Anion gap in Serum or Plasma Ordered By: Zoltan Garcia on 10-18-2024 Anion gap [Moles/Vol] 17 mmol/L High 5-15 [facility] Automated lymphocyte count a s percentage of total leukocytesOrdered By: Zoltan Garcia on 10-18-2024 Lymphocytes/100 WBC Auto (Unsp spec) 4.7 % Low 19-41 [facility] BUN/creatinine ratioOrdered By: Zoltan Garcia on 10-18-2024 Urea nitrogen/Creatinine [Mass ratio] 17.1 mg/mg 10-20 [facility] Basophil percentageOrdered B y: Zoltan Garcia on 10-18-2024 Basophils/100 WBC (Bld) 0.3 % 0-1 [facility] Bedside Glucoseon 10-18-2024 FINGERSTICK GLU 129 mg/dL High 74-106 [facility] Comment on above: Result Comment: JEWELS GEMENT OF PATIENT CARE PER NURSING PROTOCOL Performed By: #### L 501.080 #### [facility] [address] [facility] [id number] FINGERSTICK GLU 119 mg/dL High 74-106 [facility] Comment on above: Result Comment: JEWELS GEMENT OF PATIENT CARE PER NURSING PROTOCOL Performed By: #### L 501.080 #### [facility] [facility] [address] [facility] [address] FINGERSTICK GLU 98 mg/dL Normal 74-106 [facility] Comment on above: Result Comment: JEWELS GEMENT OF PATIENT CARE PER NURSING PROTOCOL Performed By: #### L 501.080 #### [facility] [address] [place], [address] FINGERSTICK GLU 72 mg/dL Low 74-106 [facility] Comment on above: Result Comment: JEWELS GEMENT OF PATIENT CARE PER NURSING PROTOCOL Performed By: #### L 501.080 #### [facility] [address] [place], [address] FINGERSTICK GLU 82 mg/dL Normal 74-106 [facility] Comment on above: Result Comment: JEWELS GEMENT OF PATIENT CARE PER NURSING PROTOCOL Performed By: #### L 501.080 #### [facility] [address] [place], [address] Bilirubin Test strip Ql (U)O rdered By: Zoltan Garcia on 10-18-2024 Bilirubin Ql (U) Negative Negative [facility] Bilirubin, totalOrdered By: Zoltan Garcia on 10-18-2024 Bilirubin [Mass/Vol] 0.33 mg/dL 0.00-1.30 [facility] Blood cultureOrdered By: Jackson Garcia on 10-18-2024 Bacteria identified Cx Nom (Bld) No growth in 5 days. [facility] Bacteria identified Cx Nom (Bld) No growth in 5 days. [facility] Brain/Head without Contrasto n 10-18-2024 Brain/Head without Contrast [facility] Imaging Services [address] [place] [address] Brain/Head without Contrast MR#: [id number] Acct: [id number] Name: JUSTUS CHINCHILLA Rep #: [id number] : 1940 F 84 From: Jorge Zurita PCP: Dr. Donato Sepulveda MD Status: REG ER Study: Brain/Head without Contrast Date of Exam: 10/04 09/27 Exam# [id number] Ordering Dr: Zoltan Garcia DO PROCEDURE: BRAIN/HEAD [...] hydrocephalus or significant midline shift. There is nmvd-ct-lddkxary chronic microvascular ischemic changes and rtrv-wt-anzqjahe parenchymal volume loss. No acute, depressed calvarial fractures. Mild anterior frontal scalp swelling. Bilateral lens surgeries. CT/Brain/Head without Contrast IMPRESSION: No acute intracranial process. Mild anterior frontal scalp swelling. No acute calvarial defect. Reading Location: [facility] CC: Dr. Zoltan Garcia DO; Dr. Donato Sepulveda MD Wood Crafter: Signed Normal [facility] CBC W/Diff, Automatedon 10-04 Absolute Lymph 0.94 X10 3/uL Normal 0.83-4.51 [facility] Comment on above: Performed By: #### L 501.080 #### [facility] [address] [place], [address] Absolute Neut 17.9 X10 3/uL High 2.0-7.7 [facility] Comment on above: Performed By: #### L 501.080 #### [facility] [address] [place], [address] Basophils/100 WBC (Bld) 0.3 % Normal 0-1 [facility] Comment on above: Performed By: #### L 501.080 #### [facility] [address] [place], [address] Eosinophils/100 WBC (Bld) 0.1 % Normal 0-5 [facility] Comment on above: Performed By: #### L 501.080 #### [facility] [address] [place], [address] Erythrocyte distribution width (RBC) [Ratio] 12.9 % Normal 11.6-14.6 [facility] Comment on above: Performed By: #### L 501.080 #### [facility] [address] [place], [address] Hematocrit (Bld) [Volume fraction] 48.0 % High 37-47 [facility] Comment on above: Performed By: #### L 501.080 #### [facility] [address] [place], [address] Hemoglobin (Bld) [Mass/Vol] 15.5 g/dL High 12.0-15.0 [facility] Comment on above: Performed By: #### L 501.080 #### [facility] [address] [place], [address] IG% 0.700 Normal 0.0-0.9 [facility] Comment on above: Result Comment: IG% - Immature Granulocytes (promyelocytes, myelocytes and metamyelocytes) > 1% indicates that a LEFT SHIFT is Present. Performed By: #### L 501.080 #### [facility] [address] [place], [address] Lymphocytes/100 WBC (Bld) 4.7 % Low 19-41 [facility] Comment on above: Performed By: #### L 501.080 #### [facility] [address] [place], [address] MCH (RBC) [Entitic mass] 29.4 pg Normal 27.0-32.0 [facility] Comment on above: Performed By: #### L 501.080 #### [facility] [address] [place], [address] MCHC (RBC) [Mass/Vol] 32.3 g/dL Normal 32-36 [facility] Comment on above: Performed By: #### L 501.080 #### [facility] [address] [place], [address] MCV (RBC) [Entitic vol] 90.9 fL Normal 81-99 [facility] Comment on above: Performed By: #### L 501.080 #### [facility] [address] [place], [address] Monocytes/100 WBC (Bld) 4.8 % Normal 0-10 [facility] Comment on above: Performed By: #### L 501.080 #### [facility] [address] [place], [address] Neutrophils/100 WBC (Bld) 89.4 % High 47-70 [facility] Comment on above: Performed By: #### L 501.080 #### [facility] [address] [place], [address] Nucleated RBC (Bld) [#/Vol] 0 10*3/uL Normal 0-5 [facility] Comment on above: Performed By: #### L 501.080 #### [facility] [address] [place], [address] Platelet mean volume (Bld) [Entitic vol] 10.2 fL Normal 6.2-12.0 [facility] Comment on above: Performed By: #### L 501.080 #### [facility] [address] [place], [address] Platelets (Bld) [#/Vol] 326 10*3/uL Normal 150-450 [facility] Comment on above: Performed By: #### L 501.080 #### [facility] [address] [place], [address] RBC (Bld) [#/Vol] 5.28 10*6/uL Normal 4.2-5.4 [facility] Comment on above: Performed By: #### L 501.080 #### [facility] [address] [place], [address] RDW SD 43.0 fl Normal 35.1-43.9 [facility] Comment on above: Performed By: #### L 501.080 #### [facility] [address] [place], [address] WBC (Bld) [#/Vol] 20.0 10*3/uL High 4.4-11.0 [facility] Comment on above: Performed By: #### L 501.080 #### [facility] [address] [place], [address] Carbon dioxide, total [Moles /volume] in Central venous bloodOrdered By: Zoltan Garcia on 10-18-2024 CO2 [Moles/Vol] 24.5 mmol/L 21.0-32.0 [facility] Chloride assayOrdered By: Bin Garcia on 10-18-2024 Chloride [Moles/Vol] 102 mmol/L 98-108 [facility] Emergency Department Summary on 10-18-2024 Emergency Department Summary [facility] Medical Records Department [address] [place] [address] Emergency Department Summary 10/18/24 MR#: [id number] Acct: [id number] Name: JUSTUS CHINCHILLA Rep #: [id number] : 1940 84 From: Zoltan Garcia DO PCP: Dr. Donato Sepulveda MD Status:[id number] - Fall History of Present [...] oral hypoglycemics as well as insulin. [facility] Medical History (Updated 10/18/24 @ [...] History (Revie (more content not included)... Normal [facility] Eosinophil percentageOrdered By: Zoltan Garcia on 10-18-2024 Eosinophils/100 WBC (Bld) 0.1 % 0-5 [facility] Erythrocyte distribution wid th ratioOrdered By: Zoltan Garcia on 10-18-2024 Erythrocyte distribution width (RBC) [Ratio] 12.9 % 11.6-14.6 [facility] Erythrocyte distribution wid th standard deviationOrdered By: Zoltan Garcia on 10-18-2024 Erythrocyte distribution width (RBC) [Ratio] 43.0 fl 35.1-43.9 [facility] Glomerular filtration rate ( GFR) estimation/1.73 sq m using serum, plasma, or whole bOrdered By: Zoltan Garcia on 10-18-2024 GFR/1.73 sq M.predicted among non-blacks MDRD (S/P/Bld) [Vol rate/Area] 88 mL/min/{1.73_m2} >60 [facility] Comment on above: mL/min/1.73m2 CKD-EP I Creatinine Equation (2020) [facility]dered By: Anali Coello on 10-18-2024 Glucose [Mass/Vol] 129 mg/dL High 74-106 [facility] Comment on above: MANAGEMENT OF PATIEN T CARE PER NURSING PROTOCOL H AND P Exam - [facility] 10-18-2024 H&P Exam - Hospitalist [facility] Medical Records Department [address] [place] [address] H P Exam - Hospitalist 10/18/242107 MR#: [id number] Acct: [id number] Name: JUSTUS CHINCHILLA Rep #: [id number] : 1940 84 From: Anali Coello DO PCP: Dr. Donato Sepulveda MD Status:ADM IN Location: [facility] [id number] HPI - General General Date of Admission: 10/18/24 Date of Service: 10/18/24 Chief Complaint: Fall/altered mental status HPI Narrative JUSTUS CHINCHILLA, is a 84 F who presented to the emergency department at [facility] on 10/18/2024 with chief complaint of [...] H i (more content not included)... Normal [facility] Hematocrit Auto (Bld) [Volum e fraction]Ordered By: Zoltan Garcia on 10-18-2024 Hematocrit (Bld) [Volume fraction] 48.0 % High 37-47 [facility] Hemoglobin measurementOrdere d By: Zoltan Garcia on 10-18-2024 Hemoglobin (Bld) [Mass/Vol] 15.5 g/dL High 12.0-15.0 [facility] Immature granulocytes/100 WB C Auto (Bld)Ordered By: Zoltan Garcia on 10-18-2024 Immature granulocytes/100 WBC (Bld) 0.700 % 0.0-0.9 [facility] Comment on above: IG% - Immature Granu locytes (promyelocytes, myelocytes and metamyelocytes) > 1% indicates that a LEFT SHIFT is Present. International normalized rat io (INR) calculationOrdered By: Zoltan Garcia on 10-18-2024 INR Coag (Bld) [Relative time] 1.0 {INR} [facility] Ketones Test strip Ql (U)Ord ered By: Zoltan Garcia on 10-18-2024 Ketones Ql (U) Negative Negative [facility] - Chemistry and C hemistry - challengeOrdered By: Zoltan Garcia on 10-18-2024 AST [Catalytic activity/Vol] 34 U/L High <32 [facility] Lactic Acidon 10-18-2024 Lactate [Moles/Vol] 2.8 mmol/L Invalid Interpretation Code 0.0-2.0 [facility] Comment on above: Order Comment: Y Result Comment: Crit ical Result(s) Called at: 2123 by:??REKHA GARCIA TO ISAAC HUFF2 Results read back by same. Performed By: #### L 501.080 #### [facility] [place], [address] Lactic acid measurementOrder ed By: Zoltan Garcia on 10-18-2024 Lactate [Moles/Vol] 2.8 mmol/L High 0.0-2.0 [facility] Comment on above: Critical Result(s) C alled at: 2123 by: REKHA GARCIA TO ISAAC LEMUS Results read back by same. MCV (mean corpuscular volume ) determinationOrdered By: Zoltan Garcia on 10-18-2024 MCV (RBC) [Entitic vol] 90.9 fL 81-99 [facility] Mean corpuscular hemoglobin (MCH) determinationOrdered By: Zoltan Garcia on 10-18-2024 MCH (RBC) [Entitic mass] 29.4 pg 27.0-32.0 [facility] Mean corpuscular hemoglobin concentration (MCHC) determinationOrdered By: Zoltan Garcia on 10-18-2024 MCHC (RBC) [Mass/Vol] 32.3 g/dL 32-36 [facility] Mean platelet volume determi nationOrdered By: Zolatn Garcia on 10-18-2024 Platelet mean volume (Bld) [Entitic vol] 10.2 fL 6.2-12.0 [facility] Microscopic analysis of urin e for red blood cells (RBC)Ordered By: Zoltan Garcia on 10-18-2024 Microscopic analysis of urine for red blood cells (RBC) 0 SEEN /hpf 0-5 [facility] Monocyte percentageOrdered B y: Zoltan Garcia on 10-18-2024 Monocytes/100 WBC (Bld) 4.8 % 0-10 [facility] Mucus LM Ql (Urine sed)Order ed By: Zoltan Garcia on 10-18-2024 Mucus Ql (Urine sed) 0 SEEN /hpf [facility] Neutrophil percentageOrdered By: Zoltan Garcia on 10-18-2024 Neutrophils/100 WBC (Bld) 89.4 % High 47-70 [facility] Nitrite Test strip Ql (U)Ord ered By: Zoltan Garcia on 10-18-2024 Nitrite Ql (U) Positive High Negative [facility] Nucleated red blood cell per centageOrdered By: Zoltan Garcia on 10-18-2024 Nucleated RBC/100 WBC (Bld) [Ratio] 0 % 0-5 [facility] Platelet countOrdered By: Bin Garcia on 10-18-2024 Platelets (Bld) [#/Vol] 326 10*3/uL 150-450 [facility] Potassium measurement (mass/ volume)Ordered By: Zoltan Garcia on 10-18-2024 Potassium (Unsp spec) [Mass/Vol] 3.2 mmol/L Low 3.3-5.1 [facility] Protein Test strip Ql (U)Ord ered By: Zoltan Garcia on 10-18-2024 Protein Ql (U) 30 mg/dl High Negative [facility] Prothrombin Time w/INRon INR Coag (PPP) [Relative time] 1.0 {INR} Normal [facility] Comment on above: Performed By: #### L 501.080 #### [facility] [address] [place], [address] PT Coag (PPP) [Time] 13.4 s Normal 11.7-14.9 [facility] Comment on above: Performed By: #### L 501.080 #### [facility] [address] [place], [address] Prothrombin timeOrdered By: Zoltan Garcia on 10-18-2024 PT Coag (PPP) [Time] 13.4 s 11.7-14.9 [facility] RBC Auto (Bld) [#/Vol]Ordere d By: Zoltan Garcia on 10-18-2024 RBC (Bld) [#/Vol] 5.28 10*6/uL 4.2-5.4 [facility] Serum creatinine measurement (mass/volume)Ordered By: Zoltan Garcia on 10-18-2024 Creatinine [Mass/Vol] 0.64 mg/dL Low 0.70-1.20 [facility] Serum globulin measurementOr dered By: Zoltan Garcia on 10-18-2024 Globulin (S) [Mass/Vol] 3.3 g/dL 2.2-4.2 [facility] Serum glucose measurement (m ass/volume)Ordered By: Zoltan Garcia on 10-18-2024 Glucose [Mass/Vol] 16 mg/dL Invalid Interpretation Code 70-99 [facility] Comment on above: Critical Result(s) C [...] same. Performed By: #### L 501.080 #### [facility] [address] [place] [address], [address] Serum or plasma alanine rivera otransferase (ALT) measurementOrdered By: Zoltan Garcia on 10-18-2024 ALT [Catalytic activity/Vol] 13 U/L <35 [facility] Serum or plasma albumin serge urement (mass/volume)Ordered By: Zoltan Garcia on 10-18-2024 Albumin [Mass/Vol] 4.7 g/dL 3.4-4.8 [facility] Serum or plasma albumin/glob ulin mass ratioOrdered By: Zoltan Garcia on 10-18-2024 Albumin/Globulin [Mass ratio] 1.4 {ratio} 0.9-2.4 [facility] Serum or plasma alkaline stephane sphatase measurementOrdered By: Zoltan Garcia on 10-18-2024 ALP [Catalytic activity/Vol] 60 U/L 35-104 [facility] Serum or plasma calcium serge urement (mass/volume)Ordered By: Zoltan Garcia on 10-18-2024 Calcium [Mass/Vol] 10.0 mg/dL 7.6-11.0 [facility] Serum or plasma urea nitroge n measurement (mass/volume)Ordered By: Zoltan Garcia on 10-18-2024 Urea nitrogen [Mass/Vol] 11 mg/dL 4-19 [facility] Sodium levelOrdered By: Bebo Garcia on 10-18-2024 Sodium [Moles/Vol] 143 mmol/L 133-145 [facility] Squamous epithelial cells de tection in urine sediment by light microscopyOrdered By: Zoltan Garcia on 10-18-2024 Epithelial cells.squamous LM Ql (Urine sed) 0-5 SEEN /hpf 5-10 [facility] Total proteinOrdered By: Jcakson Garcia on 10-18-2024 Protein [Mass/Vol] 8.0 g/dL 5.9-8.4 [facility] Urinalysis, Completeon 10-18 BACTERIA 4+ /hpf Normal None Seen [facility] Comment on above: Order Comment: ABEBE TER SPECIMEN Performed By: #### L 400.0001 #### [facility] [address] [place], [address] EPI,SQUAMOUS 0-5 SEEN Normal 5-10 [facility] Comment on above: Order Comment: ABEBE TER SPECIMEN Performed By: #### L 400.0001 #### [facility] [address] [place], [address] WBC 10-25 SEEN Normal 0-5 [facility] Comment on above: Order Comment: ABEBE TER SPECIMEN Performed By: #### L 400.0001 #### [facility] [address] [place], [address] Mucus Ql (Urine sed) 0 SEEN Normal [facility] Comment on above: Order Comment: ABEBE TER SPECIMEN Performed By: #### L 400.0001 #### [facility] [address] [place], [place], [id number] RBC 0 SEEN Normal 0-5 [facility] Comment on above: Order Comment: ABEBE TER SPECIMEN Performed By: #### L 400.0001 #### [facility] [address] [place], [place], [address] Urine clarityOrdered By: Jackson Garcia on 10-18-2024 Clarity (U) Clear Clear [facility] Urine color determinationOrd ered By: Zoltan Garcia on 10-18-2024 Color (U) Yellow Yellow [facility] Urine cultureOrdered By: Jackson Garcia on 10-18-2024 Bacteria identified Cx Nom (U) Escherichia coli Abnormal [facility] Urine glucose detectionOrder ed By: Zoltan Garcia on 10-18-2024 Glucose Ql (U) 1000 mg/dl High Normal [facility] Urine leukocyte esterase det ection by dipstickOrdered By: Zoltan Garcia on 10-18-2024 Leukocyte esterase Test strip Ql (U) 25 /ul High Negative [facility] Urine pHOrdered By: Zoltan vela on 10-18-2024 pH (U) 6.5 [pH] 5.0 - 8.0 [facility] Urine sediment bacteria coun t by microscopy (number/high power field)Ordered By: Zoltan Garcia on 10-18-2024 Bacteria LM.HPF (Urine sed) [#/Area] 4 /[HPF] None Seen [facility] Urine specific gravity measu rementOrdered By: Zoltan Garcia on 10-18-2024 Specific gravity (U) [Rel density] 1.015 1.002-1.030 [facility] Urine urobilinogen measureme ntOrdered By: Zoltan Garcia on 10-18-2024 Urobilinogen Ql (U) Normal mg/dl Normal [facility] White blood cell (WBC) count Ordered By: Zoltan Garcia on 10-18-2024 WBC (Bld) [#/Vol] 20.0 10*3/uL High 4.4-11.0 [facility] White blood cell countOrdere d By: Zoltan Garcia on 10-18-2024 White blood cell count 10-25 SEEN /hpf 0-5 [facility] Anion gap in Serum or Plasma Ordered By: Donato Sepulveda on 10-06-2024 Anion gap [Moles/Vol] 10 mmol/L 5-15 [facility] BUN/creatinine ratioOrdered By: Donato Sepulveda on 10-06-2024 Urea nitrogen/Creatinine [Mass ratio] 21.9 mg/mg High 10-20 [facility] Bilirubin directOrdered By: Donato Sepulveda on 10-06-2024 Bilirubin.direct [Mass/Vol] 0.11 mg/dL 0.00-0.30 [facility] Bilirubin, totalOrdered By: Donato Sepulveda on 10-06-2024 Bilirubin [Mass/Vol] 0.24 mg/dL 0.00-1.30 [facility] Calculated very low density lipoprotein (VLDL) cholesterol measurementOrdered By: Donato Sepulveda on 10-06-2024 Calculated very low density lipoprotein (VLDL) cholesterol measurement 14 mg/dL 5-40 [facility] Carbon dioxide, total [Moles /volume] in Central venous bloodOrdered By: Donato Sepulveda on 10-06-2024 CO2 [Moles/Vol] 29.2 mmol/L 21.0-32.0 [facility] Chloride assayOrdered By: Livier Sepulveda on 10-06-2024 Chloride [Moles/Vol] 99 mmol/L 98-108 [facility] Erythrocyte distribution wid th ratioOrdered By: Donato Sepulveda on 10-06-2024 Erythrocyte distribution width (RBC) [Ratio] 12.8 % 11.6-14.6 [facility] Erythrocyte distribution wid th standard deviationOrdered By: Donato Sepulveda on 10-06-2024 Erythrocyte distribution width (RBC) [Ratio] 43.8 fl 35.1-43.9 [facility] Glomerular filtration rate ( GFR) estimation/1.73 sq m using serum, plasma, or whole bOrdered By: Donato Sepulveda on 10-06-2024 GFR/1.73 sq M.predicted among non-blacks MDRD (S/P/Bld) [Vol rate/Area] 79 mL/min/{1.73_m2} >60 [facility] Comment on above: mL/min/1.73m2 CKD-EP I Creatinine Equation (2020) Hematocrit Auto (Bld) [Volum e fraction]Ordered By: Donato Sepulveda on 10-06-2024 Hematocrit (Bld) [Volume fraction] 37.1 % 37-47 [facility] Hemoglobin A1c percentageOrd ered By: Donato Sepulveda on 10-06-2024 HbA1c (Bld) [Mass fraction] 9.5 % High <5.7 [facility] Comment on above: Normal < 5.7 % Predi abetic 5.7 - 6.4 % Diabetic >or= 6.5 % Please note range changes. Hemoglobin measurementOrdere d By: Donato Sepulveda on 10-06-2024 Hemoglobin (Bld) [Mass/Vol] 11.9 g/dL Low 12.0-15.0 [facility] LDL calc ser/plasOrdered By: Donato Sepulveda on 10-06-2024 Cholesterol in LDL [Mass/Vol] 92 mg/dL [facility] Comment on above: Ciieonjcka=082-238 m g/dL & Higher Ykgo=174 mg/dL or greater Laboratory - Chemistry and C hemistry - challengeOrdered By: Donato Sepulveda on 10-06-2024 AST [Catalytic activity/Vol] 19 U/L <32 [facility] MCV (mean corpuscular volume ) determinationOrdered By: Donato Sepulveda on 10-06-2024 MCV (RBC) [Entitic vol] 92.8 fL 81-99 [facility] Mean corpuscular hemoglobin (MCH) determinationOrdered By: Donato Sepulvdea on 10-06-2024 MCH (RBC) [Entitic mass] 29.8 pg 27.0-32.0 [facility] Mean corpuscular hemoglobin concentration (MCHC) determinationOrdered By: Donato Sepulveda on 10-06-2024 MCHC (RBC) [Mass/Vol] 32.1 g/dL 32-36 [facility] Mean platelet volume determi nationOrdered By: Donato Sepulveda on 10-06-2024 Platelet mean volume (Bld) [Entitic vol] 10.8 fL 6.2-12.0 [facility] Platelet countOrdered By: Livier Sepulveda on 10-06-2024 Platelets (Bld) [#/Vol] 182 10*3/uL 150-450 [facility] Potassium measurement (mass/ volume)Ordered By: Donato Sepulveda on 10-06-2024 Potassium (Unsp spec) [Mass/Vol] 4.3 mmol/L 3.3-5.1 [facility] RBC Auto (Bld) [#/Vol]Ordere d By: Donato Sepulveda on 10-06-2024 RBC (Bld) [#/Vol] 4.00 10*6/uL Low 4.2-5.4 [facility] Screening total cholesterol/ high density lipoprotein (HDL) cholesterol ratioOrdered By: Donato Sepulveda on 10-06-2024 Cholesterol.total/Gabby sterol in HDL [Mass ratio] 2.80 {ratio} [facility] Serum creatinine measurement (mass/volume)Ordered By: Donato Sepulveda on 10-06-2024 Creatinine [Mass/Vol] 0.75 mg/dL 0.70-1.20 [facility] Serum globulin measurementOr dered By: Donato Sepulveda on 10-06-2024 Globulin (S) [Mass/Vol] 2.3 g/dL 2.2-4.2 [facility] Serum glucose measurement (m ass/volume)Ordered By: Donato Sepulveda on 10-06-2024 Glucose [Mass/Vol] 232 mg/dL High 70-99 [facility] Serum or plasma alanine rivera otransferase (ALT) measurementOrdered By: Donato Sepulveda on 10-06-2024 ALT [Catalytic activity/Vol] 8 U/L <35 [facility] Serum or plasma albumin serge urement (mass/volume)Ordered By: Donato Sepulveda on 10-06-2024 Albumin [Mass/Vol] 3.7 g/dL 3.4-4.8 [facility] Serum or plasma alkaline stephane sphatase measurementOrdered By: Donato Sepulveda on 10-06-2024 ALP [Catalytic activity/Vol] 50 U/L 35-104 [facility] Serum or plasma calcium serge urement (mass/volume)Ordered By: Donato Sepulveda on 10-06-2024 Calcium [Mass/Vol] 9.1 mg/dL 7.6-11.0 [facility] Serum or plasma cholesterol in HDL measurement (mass/volume)Ordered By: Donato Sepulveda on 10-06-2024 Cholesterol in HDL [Mass/Vol] 59 mg/dL >40 [facility] Comment on above: National Cholesterol Education Program (NCEP) guidelines:<40 mg/dL: Low HDL-cholesterol (major risk factor for CHD)>= 60 mg/dL: High HDL-cholesterol (negative risk factor for CHD)HDL-cholesterol is affected by a number of factors, e.g. smoking, exercise, hormones, sex and age. Serum or plasma cholesterol measurement (mass/volume)Ordered By: Donato Sepulveda on 10-06-2024 Cholesterol [Mass/Vol] 164 mg/dL <201 [facility] Comment on above: Cholesterol level, D esirable <200 mg/dLBorderline high cholesterol 200-239 mg/dLHigh cholesterol >=240 mg/dLRecommendations of the NCEP Adult Treatment Panel for the following risk-cutoff thresholds for the [place] population. Serum or plasma urea nitroge n measurement (mass/volume)Ordered By: Donato Sepulveda on 10-06-2024 Urea nitrogen [Mass/Vol] 16 mg/dL 4-19 [facility] Sodium levelOrdered By: Raul Sepulveda on 10-06-2024 Sodium [Moles/Vol] 138 mmol/L 133-145 [facility] Total proteinOrdered By: Sherwin Sepulveda on 10-06-2024 Protein [Mass/Vol] 6.0 g/dL 5.9-8.4 [facility] Triglycerides measurementOrd ered By: Donato Sepulveda on 10-06-2024 Triglyceride [Mass/Vol] 68 mg/dL <199 [facility] Comment on above: The drugs N-Acetylcy steine and Metamizole may falsely depress this assay. Normal range: <150 mg/dLBorderline High: 150-199 mg/dLHigh: 200-499 mg/dLVery High: >500 mg/dL White blood cell (WBC) count Ordered By: Donato Sepulveda on 10-06-2024 WBC (Bld) [#/Vol] 7.1 10*3/uL 4.4-11.0 [facility] Hemoglobin A1c percentageOrd ered By: Donato Sepulveda on 09-08-2024 HbA1c (Bld) [Mass fraction] 8.8 % High <5.7 [facility] Comment on above: Normal < 5.7 % Predi abetic 5.7 - 6.4 % Diabetic >or= 6.5 % Please note range changes. Bedside Glucoseon 08-24-2024 FINGERSTICK GLU 240 mg/dL High 74-106 [facility] Comment on above: Result Comment: JEWELS RAJPUT OF PATIENT CARE PER NURSING PROTOCOL Performed By: #### L 501.080 #### [facility] [address] [place], [place], [address] Fluoro Guided Needle Placeme nton 08-24-2024 Fluoro Guided Needle Placement [facility] Imaging Services [address] [place], [place] [address] Fluoro Guided Needle Placement MR#: [id number] Acct: [id number] Name: JUSTUS CHINCHILLA Madelyn Rep #: [id number] : 1940 F 84 From: Tomi metz MD PCP: Dr. Donato Sepulveda MD Status: [facility] Study: Fluoro Guided Needle Placement Date of Exam: 0 08/24/24 Exam# [id number] Ordering Dr: Armando Rich MD PROCEDURE: FLUORO GUIDED NEEDLE PLACEMENT 08/24/2024 REASON FOR EXAM: RT KNEE INJECTION TECHNIQUE: Intraoperative fluoroscopic services provided for right knee injection. 5.1 seconds of fluoroscopy. 0.85 mGy. 4 images were taken. COMPARISON: None FINDINGS: Intraoperative fluoroscopic services for knee injection. RAD/Fluoro Guided Needle Placement IMPRESSION: Fluoroscopic services provided for right knee injection. Reading Location: [place] [address] CC: Dr. Donato Sepulveda MD; Dr. Armando Rich MD Wood Crafter: Signed Normal [facility] Glucose measurement at [facility] deOrdered By: Armando Rich on 08-24-2024 Bedside Glucose (Misc Panel) 240 mg/dL High 74-106 [facility] Comment on above: MANAGEMENT OF PATIEN T CARE PER NURSING PROTOCOL Glucose [Mass/Vol] 240 mg/dL High 74-106 [facility] Comment on above: MANAGEMENT OF PATIEN T CARE PER NURSING PROTOCOL Operative Reporton Operative Report [facility] Medical Records Department [address] [place] [address] Operative Report 08/24/24 0932 MR#: [id number] Acct: [id number] Name: JUSTUS CHINCHILLA Rep #: [id number] : 1940 84 From: Armando Rich MD PCP: Dr. Donato Sepulveda MD Status:REG [facility] Location: [place] [address] Operative Report (Standard) Operative Information Date of Procedure: 08/24/24 Pre-Operative Diagnosis: Osteoarthritis of the right knee, chronic postoperative knee pain Post-Operative Diagnosis: Osteoarthritis of the right knee, chronic postoperative knee pain Surgery/Procedure Performed: Right knee superior medial/superior lateral/inferior medial genicular nerves steroid injection under fluoroscopic guidance green marketing analyst: No Type of Anesthesia: Local RN Documented [...] MD; Dr. Armando Rich MD Signed Normal [facility] Absolute lymphocyte countOrd ered By: Donato Sepulveda on 07-15-2024 Lymphocytes Auto (Unsp spec) [#/Vol] 1.27 10*3/uL 0.83-4.51 [facility] Absolute neutrophil countOrd ered By: Donato Sepulveda on 07-15-2024 Neutrophils (Bld) [#/Vol] 4.2 10*3/uL 2.0-7.7 [facility] Anion gap in Serum or Plasma Ordered By: Donato Sepulveda on 07-15-2024 Anion gap [Moles/Vol] 12 mmol/L 5-15 [facility] Automated lymphocyte count a s percentage of total leukocytesOrdered By: Donato Sepulveda on 07-15-2024 Lymphocytes/100 WBC Auto (Unsp spec) 21.1 % 19-41 [facility] BUN/creatinine ratioOrdered By: Donato Sepulveda on 07-15-2024 Urea nitrogen/Creatinine [Mass ratio] 17.5 mg/mg 10-20 [facility] Basophil percentageOrdered B y: Donato Sepulveda on 07-15-2024 Basophils/100 WBC (Bld) 0.5 % 0-1 [facility] Bilirubin Test strip Ql (U)O rdered By: Donato Sepulveda on 07-15-2024 Bilirubin Ql (U) Negative Negative [facility] Bilirubin, totalOrdered By: Donato Sepulveda on 07-15-2024 Bilirubin [Mass/Vol] 0.31 mg/dL 0.00-1.30 [facility] Carbon dioxide, total [Moles /volume] in Central venous bloodOrdered By: Donato Sepulveda on 07-15-2024 CO2 [Moles/Vol] 28.3 mmol/L 21.0-32.0 [facility] Chloride assayOrdered By: iLvier Sepulveda on 07-15-2024 Chloride [Moles/Vol] 98 mmol/L 98-108 [facility] Eosinophil percentageOrdered By: Donato Sepulveda on 07-15-2024 Eosinophils/100 WBC (Bld) 1.7 % 0-5 [facility] Erythrocyte distribution wid th (RBC) [Ratio]Ordered By: Donato Sepulveda on 07-15-2024 Erythrocyte distribution width (RBC) [Entitic vol] 43.9 fL 35.1-43.9 [facility] Erythrocyte distribution wid th ratioOrdered By: Donato Sepulveda on 07-15-2024 Erythrocyte distribution width (RBC) [Ratio] 13.2 % 11.6-14.6 [facility] Erythrocyte distribution wid th standard deviationOrdered By: Donato Sepulveda on 07-15-2024 Erythrocyte distribution width (RBC) [Ratio] 43.9 fl 35.1-43.9 [facility] GFR/1.73 sq M.predicted maxime g non-blacks MDRD (S/P/Bld) [Vol rate/Area]Ordered By: Donato Sepulveda on 07-15-2024 Estimated GFR (MDRD) Non-Af Amer 88 >60 [facility] Comment on above: mL/min/1.73m2 CKD-EP I Creatinine Equation (2020) Glomerular filtration rate ( GFR) estimation/1.73 sq m using serum, plasma, or whole bOrdered By: Donato Sepulveda on 07-15-2024 GFR/1.73 sq M.predicted among non-blacks MDRD (S/P/Bld) [Vol rate/Area] 88 mL/min/{1.73_m2} >60 [facility] Comment on above: mL/min/1.73m2 CKD-EP I Creatinine Equation (2020) Glucose Ql (U)Ordered By: Livier Sepulveda on 07-15-2024 Glucose (U) [Mass/Vol] 1000 mg/dL High Normal [facility] Hematocrit Auto (Bld) [Volum e fraction]Ordered By: Donato Sepulveda on 07-15-2024 Hematocrit (Bld) [Volume fraction] 38.9 % 37-47 [facility] Hemoglobin measurementOrdere d By: Donato Sepulveda on 07-15-2024 Hemoglobin (Bld) [Mass/Vol] 12.6 g/dL 12.0-15.0 [facility] Immature granulocytes/100 WB C Auto (Bld)Ordered By: Donato Sepulveda on 07-15-2024 Immature granulocytes/100 WBC (Bld) 0.200 % 0.0-0.9 [facility] Comment on above: IG% - Immature Granu locytes (promyelocytes, myelocytes and metamyelocytes) > 1% indicates that a LEFT SHIFT is Present. Ketones Test strip Ql (U)Ord ered By: Donato Sepulveda on 07-15-2024 Ketones Ql (U) Negative Negative [facility] - Chemistry and C hemistry - challengeOrdered By: Donato Sepulveda on 07-15-2024 AST [Catalytic activity/Vol] 18 U/L <32 [facility] Lymphocytes Auto (Unsp spec) [#/Vol]Ordered By: Donato Sepulveda on 07-15-2024 Lymphocytes (Bld) [#/Vol] 1.27 10*3/uL 0.83-4.51 [facility] Lymphocytes/100 WBC Auto (Un sp spec)Ordered By: Donato Sepulveda on 07-15-2024 Lymphocytes/100 WBC (Bld) 21.1 % 19-41 [facility] MCV (mean corpuscular volume ) determinationOrdered By: Donato Sepulveda on 07-15-2024 MCV (RBC) [Entitic vol] 91.3 fL 81-99 [facility] Mean corpuscular hemoglobin (MCH) determinationOrdered By: stutonopahchar Sepulveda on 07-15-2024 MCH (RBC) [Entitic mass] 29.6 pg 27.0-32.0 [facility] Mean corpuscular hemoglobin concentration (MCHC) determinationOrdered By: Raultonopahchar Sepulveda on 07-15-2024 MCHC (RBC) [Mass/Vol] 32.4 g/dL 32-36 [facility] Mean platelet volume determi nationOrdered By: Donato Sepulveda on 07-15-2024 Platelet mean volume (Bld) [Entitic vol] 10.7 fL 6.2-12.0 [facility] Monocyte percentageOrdered B y: Donato Sepulveda on 07-15-2024 Monocytes/100 WBC (Bld) 7.5 % 0-10 [facility] Neutrophil percentageOrdered By: Donato Sepulveda on 07-15-2024 Neutrophils/100 WBC (Bld) 69.0 % 47-70 [facility] Nitrite Test strip Ql (U)Ord ered By: Donato Sepulveda on 07-15-2024 Nitrite Ql (U) Negative Negative [facility] Nucleated red blood cell per centageOrdered By: Rauldyanchar Lombardirjnoris on 07-15-2024 Nucleated RBC/100 WBC (Bld) [Ratio] 0 % 0-5 [facility] Platelet countOrdered By: Livier stumarcela Sepulveda on 07-15-2024 Platelets (Bld) [#/Vol] 188 10*3/uL 150-450 [facility] Potassium (Unsp spec) [Mass/ Vol]Ordered By: Donato Sepulveda on 07-15-2024 Potassium [Moles/Vol] 4.3 mmol/L 3.3-5.1 [facility] Potassium measurement (mass/ volume)Ordered By: Donato Sepulveda on 07-15-2024 Potassium (Unsp spec) [Mass/Vol] 4.3 mmol/L 3.3-5.1 [facility] Protein Test strip Ql (U)Ord ered By: Donato Sepulveda on 07-15-2024 Protein Ql (U) Negative Negative [facility] RBC Auto (Bld) [#/Vol]Ordere d By: Rauldyanchar Lombardirjnoris on 07-15-2024 RBC (Bld) [#/Vol] 4.26 10*6/uL 4.2-5.4 [facility] Serum creatinine measurement (mass/volume)Ordered By: Donato Sepulveda on 07-15-2024 Creatinine [Mass/Vol] 0.65 mg/dL Low 0.70-1.20 [facility] Serum globulin measurementOr dered By: Donato Sepulveda on 07-15-2024 Globulin (S) [Mass/Vol] 2.6 g/dL 2.2-4.2 [facility] Serum glucose measurement (m ass/volume)Ordered By: Donato Sepulveda on 07-15-2024 Glucose [Mass/Vol] 322 mg/dL High 70-99 [facility] Serum or plasma alanine rivera otransferase (ALT) measurementOrdered By: Donato Sepulveda on 07-15-2024 ALT [Catalytic activity/Vol] 9 U/L <35 [facility] Serum or plasma albumin serge urement (mass/volume)Ordered By: Donato Sepulveda on 07-15-2024 Albumin [Mass/Vol] 3.9 g/dL 3.4-4.8 [facility] Serum or plasma albumin/glob ulin mass ratioOrdered By: Donato Sepulveda on 07-15-2024 Albumin/Globulin [Mass ratio] 1.5 {ratio} 0.9-2.4 [facility] Serum or plasma alkaline stephane sphatase measurementOrdered By: Donato Sepulveda on 07-15-2024 ALP [Catalytic activity/Vol] 59 U/L 35-104 [facility] Serum or plasma calcium serge urement (mass/volume)Ordered By: Donato Sepulveda on 07-15-2024 Calcium [Mass/Vol] 9.6 mg/dL 7.6-11.0 [facility] Serum or plasma urea nitroge n measurement (mass/volume)Ordered By: Donato Sepulveda on 07-15-2024 Urea nitrogen [Mass/Vol] 11 mg/dL 4-19 [facility] Sodium levelOrdered By: Raul Sepulveda on 07-15-2024 Sodium [Moles/Vol] 138 mmol/L 133-145 [facility] Total proteinOrdered By: Sherwin Sepulveda on 07-15-2024 Protein [Mass/Vol] 6.6 g/dL 5.9-8.4 [facility] Urine blood detectionOrdered By: Donato Sepulveda on 07-15-2024 Urine Occult Blood Negative Negative [facility] Urine clarityOrdered By: Sherwin Sepulveda on 07-15-2024 Clarity (U) Sl. 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 [facility] Bacteria identified Cx Nom (U) Staphylococcus epidermidis Abnormal [facility] Urine glucose detectionOrder ed By: Donato Sepulveda on 07-15-2024 Glucose Ql (U) 1000 mg/dl High Normal [facility] Urine leukocyte esterase det ection by dipstickOrdered By: Donato Sepulveda on 07-15-2024 Leukocyte esterase Test strip Ql (U) Negative Negative [facility] Urine pHOrdered By: Harvey Sepulveda on 07-15-2024 pH (U) 7.0 [pH] 5.0 - 8.0 [facility] Urine specific gravity measu rementOrdered By: Donato Sepulveda on 07-15-2024 Specific gravity (U) [Rel density] 1.010 1.002-1.030 [facility] Urine urobilinogen measureme ntOrdered By: Donato Sepulveda on 07-15-2024 Urobilinogen Ql (U) 1 mg/dl High Normal [facility] Urobilinogen Ql (U)Ordered B y: Donato Sepulveda on 07-15-2024 Urobilinogen (U) [Mass/Vol] 1 mg/dL High Normal [facility] White blood cell (WBC) count Ordered By: Donato Sepulveda on 07-15-2024 WBC (Bld) [#/Vol] 6.0 10*3/uL 4.4-11.0 [facility] Vitamin D, 25-hydroxyOrdered By: Donato Sepulveda on 07-14-2024 Vitamin D 25-Hydroxy 33.9 ng/mL 30-100 [facility] Comment on above: Vitamin D StatusDefi ciency: <20 ng/mL (50nmol/L)Insufficiency: 20-30 ng/mL (50-75 nmol/L)Sufficiency: 30-100 ng/mL (75-250 nmol/L)Toxicity: >100 ng/mL (>250 nmol/L) Bilirubin Test strip Ql (U)O rdered By: Donato Sepulveda on 06-15-2024 Bilirubin Ql (U) Negative Negative [facility] Glucose Ql (U)Ordered By: Livier Sepulveda on 06-15-2024 Glucose (U) [Mass/Vol] 1000 mg/dL High Normal [facility] Ketones Test strip Ql (U)Ord ered By: Donato Sepulveda on 06-15-2024 Ketones Ql (U) Negative Negative [facility] Nitrite Test strip Ql (U)Ord ered By: Donato Sepulveda on 06-15-2024 Nitrite Ql (U) Negative Negative [facility] Protein Test strip Ql (U)Ord ered By: Donato Sepulveda on 06-15-2024 Protein Ql (U) Negative Negative [facility] Urine blood detectionOrdered By: Donato Sepulveda on 06-15-2024 Urine Occult Blood 150 /ul High Negative [facility] Urine clarityOrdered By: Sherwin Sepulveda on 06-15-2024 Clarity (U) Clear Clear [facility] Urine color determinationOrd ered By: Donato Sepulveda on 06-15-2024 Color (U) Yellow Yellow [facility] Urine cultureOrdered By: Sherwin Sepulveda on 06-15-2024 Bacteria identified Cx Nom (U) Mixed Gram Pos & Gram Neg Org Abnormal [facility] Urine glucose detectionOrder ed By: Donato Sepulveda on 06-15-2024 Glucose Ql (U) 1000 mg/dl High Normal [facility] Urine leukocyte esterase det ection by dipstickOrdered By: Donato Sepulveda on 06-15-2024 Leukocyte esterase Test strip Ql (U) 25 /ul High Negative [facility] Urine pHOrdered By: Harvey Sepulveda on 06-15-2024 pH (U) 6.0 [pH] 5.0 - 8.0 [facility] Urine specific gravity measu rementOrdered By: Donato Sepulveda on 06-15-2024 Specific gravity (U) [Rel density] 1.010 1.002-1.030 [facility] Urine urobilinogen measureme ntOrdered By: Donato Sepulveda on 06-15-2024 Urobilinogen Ql (U) Normal mg/dl Normal [facility] Urobilinogen Ql (U)Ordered B y: Donato Sepulveda on 06-15-2024 Urine Urobilinogen Normal mg/dl Normal [facility] Hemoglobin A1c percentageOrd ered By: Donato Sepulveda on 06-09-2024 HbA1c (Bld) [Mass fraction] 8.6 % High 3.8-5.6 [facility] Comment on above: Normal < 5.7 % Predi abetic 5.7 - 6.4 % Diabetic >or= 6.5 % Please note range changes. [id number] DOrdered By: Noris Sepulveda on 06-02-2024 Vitamin D 25-Hydroxy 53.0 ng/mL [facility] Comment on above: Vitamin D 25(OH) Sta tus Range Deficiency <20 ng/mL (50nmol/L) Insufficiency 20 - 30 ng/mL (50 - 75 nmol/L) Sufficiency 30 - 100 ng/mL (75 - 250 nmol/L) Toxicity >100 ng/mL (>250 nmol/L) [id number] DOrdered By: Noris Sepulveda on 04-21-2024 Vitamin D 25-Hydroxy 64.0 ng/mL [facility] Comment on above: Vitamin D 25(OH) Sta tus Range Deficiency <20 ng/mL (50nmol/L) Insufficiency 20 - 30 ng/mL (50 - 75 nmol/L) Sufficiency 30 - 100 ng/mL (75 - 250 nmol/L) Toxicity >100 ng/mL (>250 nmol/L) Basophil percentageOrdered B y: Donato Sepulveda on 08-06-2023 Bilirubin [Mass/Vol] 0.50 mg/dL 0.20-1.00 [facility] Comment on above: For patients on eltr ombopag therapy, use of Dimension Greenleaf TBIL is not recommended. Chloride [Moles/Vol] 105 mmol/L 98-107 [facility] Glucose [Mass/Vol] 153 mg/dL 74-106 [facility] Comment on above: Fasting Glucose resu lt greater than or equal to 126 mg/dL suggests DIABETES MELLITUS per A.D.A. criteria. Hemoglobin (Bld) [Mass/Vol] 12.4 g/dL 12.0-15.0 [facility] Potassium [Moles/Vol] 4.0 mmol/L 3.5-5.1 [facility] Protein [Mass/Vol] 6.7 g/dL 6.4-8.2 [facility] Sodium [Moles/Vol] 139 mmol/L 136-145 [facility] WBC (Bld) [#/Vol] 5.9 10*3/uL 4.4-11.0 [facility] Determination of erythrocyte mean corpuscular volume (MCV)Ordered By: Donato Sepulveda on 08-06-2023 MCV (RBC) [Entitic vol] 92.5 fL 81-99 [facility] Erythrocyte distribution wid th ratioOrdered By: [facility] Sepul[facility]a on 08-06-2023 Erythrocyte distribution width (RBC) [Ratio] 13.3 % 11.6-14.6 [facility] Erythrocyte distribution wid th standard deviationOrdered By: [facility] Baldwinchar Lombardinoris on 08-06-2023 Erythrocyte distribution width (RBC) [Entitic vol] 45.2 fL 35.1-43.9 [facility] Hematocrit Auto (Bld) [Volum e fraction]Ordered By: Donato Sepulveda on 08-06-2023 Hematocrit (Bld) [Volume fraction] 39.7 % 37-47 [facility] - Chemistry and C hemistry - challengeOrdered By: [facility] Baldwinchar Lombardinoris on 08-06-2023 Albumin/Globulin [Mass ratio] 1.0 {ratio} 0.9-2.4 [facility] ALP [Catalytic activity/Vol] 59 U/L 45-117 [facility] ALT [Catalytic activity/Vol] 13 U/L 13-56 [facility] CO2 [Moles/Vol] 29.0 mmol/L 21.0-32.0 [facility] Globulin (S) [Mass/Vol] 3.3 g/dL 2.2-4.2 [facility] Urea nitrogen/Creatinine [Mass ratio] 14.4 mg/mg 10-20 [facility] - Hematology and Cell countsOrdered By: Raultonopahchar Sepulveda on 08-06-2023 MCH (RBC) [Entitic mass] 28.9 pg 27.0-32.0 [facility] MCHC (RBC) [Mass/Vol] 31.2 g/dL 32-36 [facility] Platelet mean volume (Bld) [Entitic vol] 10.1 fL 6.2-12.0 [facility] Platelets (Bld) [#/Vol] 187 10*3/uL 150-450 [facility] No Panel InformationOrdered By: Donato Sepulveda on 08-06-2023 Estimated GFR (MDRD) Amer 94 mL/min >60 [facility] Comment on above: GFR Calc Estimated GFR (MDRD) Non-Af Amer 77 mL/min >60 [facility] Comment on above: Non- GFR Calc RBC Auto (Bld) [#/Vol]Ordere d By: Donato Sepulveda on 08-06-2023 RBC (Bld) [#/Vol] 4.29 10*6/uL 4.2-5.4 [facility] Serum or plasma calcium serge urement (mass/volume)Ordered By: Donato Sepulveda on 08-06-2023 Calcium [Mass/Vol] 9.0 mg/dL 8.5-10.1 [facility] Serum or plasma creatinine m easurement (mass/volume)Ordered By: Donato Sepulveda on 08-06-2023 Creatinine [Mass/Vol] 0.76 mg/dL 0.55-1.02 [facility] Comment on above: The validity of the calculated GFR & GFRAA in patients over 70 years has not been determined. Clinical correlation is essential. Serum or plasma urea nitroge n measurement (mass/volume)Ordered By: Donato Sepulveda on 08-06-2023 Urea nitrogen [Mass/Vol] 11 mg/dL 7-18 [facility] Thin prep Papanicolaou smear with manual screeningOrdered By: Donato Sepulveda on 08-06-2023 Thin prep Papanicolaou smear with manual screening 3.4 g/dL 3.2-5.0 [facility] Thin prep Papanicolaou smear with manual screening 15 U/L 15-37 [facility] Thin prep Papanicolaou smear with manual screening 5 5-15 [facility] Basophil percentageOrdered B y: Donato Sepulveda on 06-11-2023 Bilirubin [Mass/Vol] 0.50 mg/dL 0.20-1.00 [facility] Comment on above: For patients on eltr ombopag therapy, use of Dimension [place] TBIL is not recommended. Chloride [Moles/Vol] 105 mmol/L 98-107 [facility] Glucose [Mass/Vol] 92 mg/dL 74-106 [facility] Hemoglobin (Bld) [Mass/Vol] 12.1 g/dL 12.0-15.0 [facility] Potassium [Moles/Vol] 3.7 mmol/L 3.5-5.1 [facility] Protein [Mass/Vol] 6.9 g/dL 6.4-8.2 [facility] Sodium [Moles/Vol] 140 mmol/L 136-145 [facility] WBC (Bld) [#/Vol] 7.0 10*3/uL 4.4-11.0 [facility] Determination of erythrocyte mean corpuscular volume (MCV)Ordered By: Donato Sepulveda on 06-11-2023 MCV (RBC) [Entitic vol] 92.6 fL 81-99 [facility] Erythrocyte distribution wid th ratioOrdered By: [facility] Lombardinoris on 06-11-2023 Erythrocyte distribution width (RBC) [Ratio] 12.5 % 11.6-14.6 [facility] Erythrocyte distribution wid th standard deviationOrdered By: [facility]ieradventhealth murraychar Lombardinoris on 06-11-2023 Erythrocyte distribution width (RBC) [Entitic vol] 42.4 fL 35.1-43.9 [facility] Hematocrit Auto (Bld) [Volum e fraction]Ordered By: Raultonopahchar Sepulveda on 06-11-2023 Hematocrit (Bld) [Volume fraction] 38.6 % 37-47 [facility] - Chemistry and C hemistry - challengeOrdered By: Raultonopahchar Sepulveda on 06-11-2023 Albumin/Globulin [Mass ratio] 0.8 {ratio} 0.9-2.4 [facility] ALP [Catalytic activity/Vol] 85 U/L 45-117 [facility] ALT [Catalytic activity/Vol] 18 U/L 13-56 [facility] CO2 [Moles/Vol] 29.0 mmol/L 21.0-32.0 [facility] Globulin (S) [Mass/Vol] 3.8 g/dL 2.2-4.2 [facility] Urea nitrogen/Creatinine [Mass ratio] 18.3 mg/mg 10-20 [facility] - Hematology and Cell countsOrdered By: Donato Sepulveda on 06-11-2023 MCH (RBC) [Entitic mass] 29.0 pg 27.0-32.0 [facility] MCHC (RBC) [Mass/Vol] 31.3 g/dL 32-36 [facility] Platelet mean volume (Bld) [Entitic vol] 11.0 fL 6.2-12.0 [facility] Platelets (Bld) [#/Vol] 190 10*3/uL 150-450 [facility] No Panel InformationOrdered By: Donato Sepulveda on 06-11-2023 Estimated GFR (MDRD) Amer 80 mL/min >60 [facility] Comment on above: GFR Calc Estimated GFR (MDRD) Non-Af Amer 66 mL/min >60 [facility] Comment on above: Non- GFR Calc Vitamin D 25-Hydroxy 29.3 ng/mL [facility] Comment on above: Vitamin D 25(OH) Sta tus Range Deficiency <20 ng/mL (50nmol/L) Insufficiency 20 - 30 ng/mL (50 - 75 nmol/L) Sufficiency 30 - 100 ng/mL (75 - 250 nmol/L) Toxicity >100 ng/mL (>250 nmol/L) RBC Auto (Bld) [#/Vol]Ordere d By: Donato Sepulveda on 06-11-2023 RBC (Bld) [#/Vol] 4.17 10*6/uL 4.2-5.4 [facility] Serum or plasma calcium serge urement (mass/volume)Ordered By: Donato Sepulveda on 06-11-2023 Calcium [Mass/Vol] 9.2 mg/dL 8.5-10.1 [facility] Serum or plasma creatinine m easurement (mass/volume)Ordered By: Donato Sepulveda on 06-11-2023 Creatinine [Mass/Vol] 0.87 mg/dL 0.55-1.02 [facility] Comment on above: The validity of the calculated GFR & GFRAA in patients over 70 years has not been determined. Clinical correlation is essential. Serum or plasma urea nitroge n measurement (mass/volume)Ordered By: Donato Sepulveda on 06-11-2023 Urea nitrogen [Mass/Vol] 16 mg/dL 7-18 [facility] Thin prep Papanicolaou smear with manual screeningOrdered By: Donato Sepulveda on 06-11-2023 Thin prep Papanicolaou smear with manual screening 3.1 g/dL 3.2-5.0 [facility] Thin prep Papanicolaou smear with manual screening 18 U/L 15-37 [facility] Thin prep Papanicolaou smear with manual screening 6 5-15 [facility] Whole blood hemoglobin A1c/t otal hemoglobin ratio (mass fraction)Ordered By: Donato Sepulveda on 06-11-2023 HbA1c (Bld) [Mass fraction] 8.7 % 3.8-5.6 [facility] Comment on above: Normal < 5.7 % Predi abetic 5.7 - 6.4 % Diabetic >or= 6.5 % Please note range changes. Absolute lymphocyte countOrd ered By: Colleen Walker on 06-05-2023 Lymphocytes Auto (Unsp spec) [#/Vol] 1.18 10*3/uL 0.83-4.51 [facility] Automated lymphocyte count a s percentage of total leukocytesOrdered By: Colleen Walker on 06-05-2023 Lymphocytes/100 WBC Auto (Unsp spec) 13.6 % 19-41 [facility] Basophil percentageOrdered B y: Colleen Walker on 06-05-2023 Basophil percentage 5-10 SEEN /hpf 0-5 [facility] Basophils/100 WBC (Bld) 0.6 % 0-1 [facility] Chloride [Moles/Vol] 104 mmol/L 98-107 [facility] Eosinophils/100 WBC (Bld) 2.0 % 0-5 [facility] Glucose [Mass/Vol] 150 mg/dL 74-106 [facility] Comment on above: Fasting Glucose resu lt greater than or equal to 126 mg/dL suggests DIABETES MELLITUS per A.D.A. criteria. Hemoglobin (Bld) [Mass/Vol] 13.2 g/dL 12.0-15.0 [facility] Monocytes/100 WBC (Bld) 7.2 % 0-10 [facility] Neutrophils (Bld) [#/Vol] 6.6 10*3/uL 2.0-7.7 [facility] Neutrophils/100 WBC (Bld) 76.3 % 47-70 [facility] Potassium [Moles/Vol] 3.6 mmol/L 3.5-5.1 [facility] Sodium [Moles/Vol] 137 mmol/L 136-145 [facility] WBC (Bld) [#/Vol] 8.7 10*3/uL 4.4-11.0 [facility] Bilirubin Test strip Ql (U)O rdered By: Colleen Walker on 06-05-2023 Bilirubin Ql (U) Negative Negative [facility] Determination of erythrocyte mean corpuscular volume (MCV)Ordered By: Colleen Walker on 06-05-2023 MCV (RBC) [Entitic vol] 92.9 fL 81-99 [facility] Erythrocyte distribution wid th ratioOrdered By: Colleen Walker on 06-05-2023 Erythrocyte distribution width (RBC) [Ratio] 12.6 % 11.6-14.6 [facility] Erythrocyte distribution wid th standard deviationOrdered By: Colleen Walker on 06-05-2023 Erythrocyte distribution width (RBC) [Entitic vol] 43.4 fL 35.1-43.9 [facility] Hematocrit Auto (Bld) [Volum e fraction]Ordered By: Colleen Walker on 06-05-2023 Hematocrit (Bld) [Volume fraction] 42.1 % 37-47 [facility] Immature granulocytes/100 WB C Auto (Bld)Ordered By: Colleen Walker on 06-05-2023 Immature granulocytes/100 WBC (Bld) 0.300 % 0.0-0.9 [facility] Comment on above: IG% - Immature Granu locytes (promyelocytes, myelocytes and metamyelocytes) > 1% indicates that a LEFT SHIFT is Present. Ketones Test strip Ql (U)Ord ered By: Colleen Walker on 06-05-2023 Ketones Ql (U) Negative Negative [facility] Laboratory - Chemistry and C hemistry - challengeOrdered By: Colleen Walker on 06-05-2023 CO2 [Moles/Vol] 32.0 mmol/L 21.0-32.0 [facility] Urea nitrogen/Creatinine [Mass ratio] 21.9 mg/mg 10-20 [facility] - Hematology and Cell countsOrdered By: Colleen Walker on 06-05-2023 MCH (RBC) [Entitic mass] 29.1 pg 27.0-32.0 [facility] MCHC (RBC) [Mass/Vol] 31.4 g/dL 32-36 [facility] Nucleated RBC/100 WBC (Bld) [Ratio] 0 % 0-5 [facility] Platelets (Bld) [#/Vol] 180 10*3/uL 150-450 [facility] Mucus LM Ql (Urine sed)Order ed By: Colleen Walker on 06-05-2023 Mucus Ql (Urine sed) 0 SEEN /hpf [facility] Nitrite Test strip Ql (U)Ord ered By: Colleen Walker on 06-05-2023 Nitrite Ql (U) Negative Negative [facility] No Panel InformationOrdered By: Colleen Walker on 06-05-2023 Urine RBC 0 SEEN /hpf 0-5 [facility] Estimated Creatinine Clearance Calc 48.43 ml/min [facility] Estimated GFR (MDRD) Amer 92 mL/min >60 [facility] Comment on above: GFR Calc Estimated GFR (MDRD) Non-Af Amer 76 mL/min >60 [facility] Comment on above: Non- GFR Calc Platelet mean volume Jamie-Ec ker (Bld) [Entitic vol]Ordered By: Colleen Walker on 06-05-2023 Platelet mean volume (Bld) [Entitic vol] 10.3 fL 6.2-12.0 [facility] Protein Test strip Ql (U)Ord ered By: Colleen Walker on 06-05-2023 Protein Ql (U) 15 mg/dl Negative [facility] RBC Auto (Bld) [#/Vol]Ordere d By: Colleen Walker on 06-05-2023 RBC (Bld) [#/Vol] 4.53 10*6/uL 4.2-5.4 [facility] Serum or plasma calcium serge urement (mass/volume)Ordered By: Colleen Walker on 06-05-2023 Calcium [Mass/Vol] 9.3 mg/dL 8.5-10.1 [facility] Serum or plasma creatinine m easurement (mass/volume)Ordered By: Colleen Walker on 06-05-2023 Creatinine [Mass/Vol] 0.78 mg/dL 0.55-1.02 [facility] Comment on above: The validity of the calculated GFR & GFRAA in patients over 70 years has not been determined. Clinical correlation is essential. Serum or plasma urea nitroge n measurement (mass/volume)Ordered By: Colleen Walker on 06-05-2023 Urea nitrogen [Mass/Vol] 17 mg/dL 7-18 [facility] Squamous epithelial cells de tection in urine sediment by light microscopyOrdered By: Colleen Walker on 06-05-2023 Epithelial cells.squamous LM Ql (Urine sed) 5-10 SEEN /hpf 5-10 [facility] Thin prep Papanicolaou smear with manual screeningOrdered By: Colleen Walker on 06-05-2023 Thin prep Papanicolaou smear with manual screening 1 5-15 [facility] Urine blood detectionOrdered By: Colleen Walker on 06-05-2023 RBC Ql (U) 50 /ul Negative [facility] Urine clarityOrdered By: Yadira Walker on 06-05-2023 Clarity (U) Sl. Cloudy Clear [facility] Urine color determinationOrd ered By: Colleen Walker on 06-05-2023 Color (U) Yellow Yellow [facility] Urine glucose detectionOrder ed By: Colleen Walker on 06-05-2023 Glucose Ql (U) 1000 mg/dl Normal [facility] Urine leukocyte esterase det ection by dipstickOrdered By: Colleen Walker on 06-05-2023 Leukocyte esterase Test strip Ql (U) 100 /ul Negative [facility] Urine pHOrdered By: Colleen ma on 06-05-2023 pH (U) 6.0 [pH] 5.0 - 8.0 [facility] Urine sediment bacteria coun t by microscopy (number/high power field)Ordered By: Colleen Walker on 06-05-2023 Bacteria LM.HPF (Urine sed) [#/Area] 0 /[HPF] None Seen [facility] Urine specific gravity measu rementOrdered By: Colleen Walker on 06-05-2023 Specific gravity (U) [Rel density] 1.015 1.002-1.030 [facility] Urine urobilinogen measureme ntOrdered By: Colleen Walker on 06-05-2023 Urobilinogen Ql (U) Normal mg/dl Normal [facility] Absolute lymphocyte countOrd ered By: Donato Sepulveda on 04-23-2023 Lymphocytes Auto (Unsp spec) [#/Vol] 1.27 10*3/uL 0.83-4.51 [facility] Basophil percentageOrdered B y: Donato Sepulveda on 04-23-2023 Basophils/100 WBC (Bld) 0.3 % 0-1 [facility] Chloride [Moles/Vol] 106 mmol/L 98-107 [facility] Eosinophils/100 WBC (Bld) 4.6 % 0-5 [facility] Glucose [Mass/Vol] 96 mg/dL 74-106 [facility] Neutrophils (Bld) [#/Vol] 4.1 10*3/uL 2.0-7.7 [facility] Neutrophils/100 WBC (Bld) 67.6 % 47-70 [facility] Potassium [Moles/Vol] 3.7 mmol/L 3.5-5.1 [facility] Sodium [Moles/Vol] 141 mmol/L 136-145 [facility] WBC (Bld) [#/Vol] 6.1 10*3/uL 4.4-11.0 [facility] Blood erythrocytes count (nu mber/volume)Ordered By: Donato Sepulveda on 04-23-2023 RBC (Bld) [#/Vol] 4.10 10*6/uL 4.2-5.4 [facility] Blood hemoglobin measurement (mass/volume)Ordered By: Donato Sepulveda on 04-23-2023 Hemoglobin (Bld) [Mass/Vol] 12.0 g/dL 12.0-15.0 [facility] Blood lymphocytes/100 leukoc ytesOrdered By: Donato Sepulveda on 04-23-2023 Lymphocytes/100 WBC (Bld) 20.9 % 19-41 [facility] Blood monocytes/100 leukocyt esOrdered By: balaji Sepulveda on 04-23-2023 Monocytes/100 WBC (Bld) 6.1 % 0-10 [facility] Blood platelet mean volumeOr dered By: Donato Sepulveda on 04-23-2023 Platelet mean volume (Bld) [Entitic vol] 10.3 fL 6.2-12.0 [facility] Determination of erythrocyte mean corpuscular volume (MCV)Ordered By: Donato Sepulveda on 04-23-2023 MCV (RBC) [Entitic vol] 93.9 fL 81-99 [facility] Hematocrit Auto (Bld) [Volum e fraction]Ordered By: Donato Sepulveda on 04-23-2023 Hematocrit (Bld) [Volume fraction] 38.5 % 37-47 [facility] - Chemistry and C hemistry - challengeOrdered By: balaji Sepulveda on 04-23-2023 CO2 [Moles/Vol] 32.0 mmol/L 21.0-32.0 [facility] Urea nitrogen/Creatinine [Mass ratio] 21.8 mg/mg 10-20 [facility] - Hematology and Cell countsOrdered By: Donato Sepulveda on 04-23-2023 Erythrocyte distribution width (RBC) [Entitic vol] 44.9 fL 35.1-43.9 [facility] Erythrocyte distribution width (RBC) [Ratio] 13.0 % 11.6-14.6 [facility] Immature granulocytes/100 WBC (Bld) 0.500 % 0.0-0.9 [facility] Comment on above: IG% - Immature Granu locytes (promyelocytes, myelocytes and metamyelocytes) > 1% indicates that a LEFT SHIFT is Present. MCH (RBC) [Entitic mass] 29.3 pg 27.0-32.0 [facility] Nucleated RBC/100 WBC (Bld) [Ratio] 0 % 0-5 [facility] MCHC Auto (RBC) [Mass/Vol]Or dered By: Donato Sepulveda on 04-23-2023 MCHC (RBC) [Mass/Vol] 31.2 g/dL 32-36 [facility] No Panel InformationOrdered By: Donato Sepulveda on 04-23-2023 Estimated GFR (MDRD) Amer 106 mL/min >60 [facility] Comment on above: GFR Calc Estimated GFR (MDRD) Non-Af Amer 87 mL/min >60 [facility] Comment on above: Non- GFR Calc Platelets bldOrdered By: Sherwin Sepulveda on 04-23-2023 Platelets (Bld) [#/Vol] 207 10*3/uL 150-450 [facility] Serum or plasma calcium serge urement (mass/volume)Ordered By: Donato Sepulveda on 04-23-2023 Calcium [Mass/Vol] 9.3 mg/dL 8.5-10.1 [facility] Serum or plasma creatinine m easurement (mass/volume)Ordered By: Donato Sepulveda on 04-23-2023 Creatinine [Mass/Vol] 0.69 mg/dL 0.55-1.02 [facility] Comment on above: The validity of the calculated GFR & GFRAA in patients over 70 years has not been determined. Clinical correlation is essential. Serum or plasma urea nitroge n measurement (mass/volume)Ordered By: Donato Sepulveda on 04-23-2023 Urea nitrogen [Mass/Vol] 15 mg/dL 7-18 [facility] Thin prep Papanicolaou smear with manual screeningOrdered By: Donato Sepulveda on 04-23-2023 Thin prep Papanicolaou smear with manual screening 3 5-15 [facility] Basophil percentageOrdered B y: Donato Sepulveda on 04-19-2023 Potassium [Moles/Vol] 4.3 mmol/L 3.5-5.1 [facility] Basophil percentageOrdered B y: Donato Sepulveda on 04-09-2023 Bilirubin [Mass/Vol] 0.30 mg/dL 0.20-1.00 [facility] Comment on above: For patients on eltr ombopag therapy, use of Dimension [place] TBIL is not recommended. Chloride [Moles/Vol] 106 mmol/L 98-107 [facility] Glucose [Mass/Vol] 55 mg/dL 74-106 [facility] Potassium [Moles/Vol] 3.9 mmol/L 3.5-5.1 [facility] Protein [Mass/Vol] 7.2 g/dL 6.4-8.2 [facility] Sodium [Moles/Vol] 139 mmol/L 136-145 [facility] WBC (Bld) [#/Vol] 7.9 10*3/uL 4.4-11.0 [facility] Blood erythrocytes count (nu mber/volume)Ordered By: Donato Sepulveda on 04-09-2023 RBC (Bld) [#/Vol] 4.36 10*6/uL 4.2-5.4 [facility] Blood hemoglobin measurement (mass/volume)Ordered By: Donato Sepulveda on 04-09-2023 Hemoglobin (Bld) [Mass/Vol] 12.7 g/dL 12.0-15.0 [facility] Blood platelet mean volumeOr dered By: Donato Sepulveda on 04-09-2023 Platelet mean volume (Bld) [Entitic vol] 10.9 fL 6.2-12.0 [facility] Determination of erythrocyte mean corpuscular volume (MCV)Ordered By: Donato Sepulveda on 04-09-2023 MCV (RBC) [Entitic vol] 94.5 fL 81-99 [facility] Hematocrit Auto (Bld) [Volum e fraction]Ordered By: Donato Sepulveda on 04-09-2023 Hematocrit (Bld) [Volume fraction] 41.2 % 37-47 [facility] - Chemistry and C hemistry - challengeOrdered By: Donato Sepulveda on 04-09-2023 ALP [Catalytic activity/Vol] 90 U/L 45-117 [facility] ALT [Catalytic activity/Vol] 21 U/L 13-56 [facility] CO2 [Moles/Vol] 30.0 mmol/L 21.0-32.0 [facility] Globulin (S) [Mass/Vol] 3.7 g/dL 2.2-4.2 [facility] Urea nitrogen/Creatinine [Mass ratio] 22.9 mg/mg 10-20 [facility] - Hematology and Cell countsOrdered By: Donato Sepulveda on 04-09-2023 Erythrocyte distribution width (RBC) [Entitic vol] 44.3 fL 35.1-43.9 [facility] Erythrocyte distribution width (RBC) [Ratio] 12.8 % 11.6-14.6 [facility] MCH (RBC) [Entitic mass] 29.1 pg 27.0-32.0 [facility] MCHC Auto (RBC) [Mass/Vol]Or dered By: Donato Sepulveda on 04-09-2023 MCHC (RBC) [Mass/Vol] 30.8 g/dL 32-36 [facility] No Panel InformationOrdered By: Donato Sepulveda on 04-09-2023 Estimated GFR (MDRD) Amer 97 mL/min >60 [facility] Comment on above: GFR Calc Estimated GFR (MDRD) Non-Af Amer 80 mL/min >60 [facility] Comment on above: Non- GFR Calc Platelets bldOrdered By: Sherwin Sepulveda on 04-09-2023 Platelets (Bld) [#/Vol] 212 10*3/uL 150-450 [facility] Serum or plasma albumin serge urement (mass/volume)Ordered By: Donato Sepulveda on 04-09-2023 Albumin [Mass/Vol] 3.5 g/dL 3.2-5.0 [facility] Serum or plasma albumin/glob ulin mass ratioOrdered By: Donato Sepulveda on 04-09-2023 Albumin/Globulin [Mass ratio] 0.9 {ratio} 0.9-2.4 [facility] Serum or plasma calcium serge urement (mass/volume)Ordered By: Donato Sepulveda on 04-09-2023 Calcium [Mass/Vol] 9.4 mg/dL 8.5-10.1 [facility] Serum or plasma creatinine m easurement (mass/volume)Ordered By: Donato Sepulveda on 04-09-2023 Creatinine [Mass/Vol] 0.74 mg/dL 0.55-1.02 [facility] Comment on above: The validity of the calculated GFR & GFRAA in patients over 70 years has not been determined. Clinical correlation is essential. Serum or plasma urea nitroge n measurement (mass/volume)Ordered By: Donato Sepulveda on 04-09-2023 Urea nitrogen [Mass/Vol] 17 mg/dL 7-18 [facility] Thin prep Papanicolaou smear with manual screeningOrdered By: Donato Sepulveda on 04-09-2023 Thin prep Papanicolaou smear with manual screening 19 U/L 15-37 [facility] Thin prep Papanicolaou smear with manual screening 3 5-15 [facility] No Panel InformationOrdered By: Donato Sepulveda on 03-12-2023 Vitamin D 25-Hydroxy 34.4 ng/mL [facility] Comment on above: Vitamin D 25(OH) Sta tus Range Deficiency <20 ng/mL (50nmol/L) Insufficiency 20 - 30 ng/mL (50 - 75 nmol/L) Sufficiency 30 - 100 ng/mL (75 - 250 nmol/L) Toxicity >100 ng/mL (>250 nmol/L) Whole blood hemoglobin A1c/t otal hemoglobin ratio (mass fraction)Ordered By: Donato Sepulveda on 03-12-2023 HbA1c (Bld) [Mass fraction] 7.4 % 3.8-5.6 [facility] Comment on above: Normal < 5.7 % Predi abetic 5.7 - 6.4 % Diabetic >or= 6.5 % Please note range changes. Basophil percentageOrdered B y: Donato Sepulveda on 02-05-2023 Bilirubin [Mass/Vol] 0.50 mg/dL 0.20-1.00 [facility] Comment on above: For patients on eltr ombopag therapy, use of Dimension [place] TBIL is not recommended. Chloride [Moles/Vol] 105 mmol/L 98-107 [facility] Glucose [Mass/Vol] 106 mg/dL 74-106 [facility] Comment on above: Fasting Glucose resu lt from 100 to 125 mg/dL suggests IMPAIRED HOMEOSTASIS per A.D.A. criteria. Potassium [Moles/Vol] 4.2 mmol/L 3.5-5.1 [facility] Protein [Mass/Vol] 6.9 g/dL 6.4-8.2 [facility] Sodium [Moles/Vol] 142 mmol/L 136-145 [facility] WBC (Bld) [#/Vol] 6.0 10*3/uL 4.4-11.0 [facility] Blood erythrocytes count (nu mber/volume)Ordered By: Donato Sepulveda on 02-05-2023 RBC (Bld) [#/Vol] 4.18 10*6/uL 4.2-5.4 [facility] Blood hemoglobin measurement (mass/volume)Ordered By: Donato Sepulveda on 02-05-2023 Hemoglobin (Bld) [Mass/Vol] 12.1 g/dL 12.0-15.0 [facility] Blood platelet mean volumeOr dered By: Donato Sepulveda on 02-05-2023 Platelet mean volume (Bld) [Entitic vol] 10.7 fL 6.2-12.0 [facility] Determination of erythrocyte mean corpuscular volume (MCV)Ordered By: Donato Sepulveda on 02-05-2023 MCV (RBC) [Entitic vol] 95.2 fL 81-99 [facility] Direct bilirubinOrdered By: Donato Sepulveda on 02-05-2023 Bilirubin.direct [Mass/Vol] 0.15 mg/dL 0.00-0.30 [facility] Hematocrit Auto (Bld) [Volum e fraction]Ordered By: Donato Sepulveda on 02-05-2023 Hematocrit (Bld) [Volume fraction] 39.8 % 37-47 [facility] - Chemistry and C hemistry - challengeOrdered By: Donato Sepulveda on 02-05-2023 ALP [Catalytic activity/Vol] 73 U/L 45-117 [facility] ALT [Catalytic activity/Vol] 20 U/L 13-56 [facility] CO2 [Moles/Vol] 32.0 mmol/L 21.0-32.0 [facility] Globulin (S) [Mass/Vol] 3.5 g/dL 2.2-4.2 [facility] Urea nitrogen/Creatinine [Mass ratio] 20.8 mg/mg 10-20 [facility] - Hematology and Cell countsOrdered By: Donato Sepulveda on 02-05-2023 Erythrocyte distribution width (RBC) [Entitic vol] 46.1 fL 35.1-43.9 [facility] Erythrocyte distribution width (RBC) [Ratio] 13.1 % 11.6-14.6 [facility] MCH (RBC) [Entitic mass] 28.9 pg 27.0-32.0 [facility] MCHC Auto (RBC) [Mass/Vol]Or dered By: Donato Sepulveda on 02-05-2023 MCHC (RBC) [Mass/Vol] 30.4 g/dL 32-36 [facility] No Panel InformationOrdered By: Donato Sepulveda on 02-05-2023 Estimated GFR (MDRD) Amer 93 mL/min >60 [facility] Comment on above: GFR Calc Estimated GFR (MDRD) Non-Af Amer 76 mL/min >60 [facility] Comment on above: Non- GFR Calc Platelets bldOrdered By: Sherwin Sepulveda on 02-05-2023 Platelets (Bld) [#/Vol] 183 10*3/uL 150-450 [facility] Serum or plasma albumin serge urement (mass/volume)Ordered By: Donato Sepulveda on 02-05-2023 Albumin [Mass/Vol] 3.4 g/dL 3.2-5.0 [facility] Serum or plasma albumin/glob ulin mass ratioOrdered By: Donato Sepulveda on 02-05-2023 Albumin/Globulin [Mass ratio] 1.0 {ratio} 0.9-2.4 [facility] Serum or plasma calcium serge urement (mass/volume)Ordered By: Donato Sepulveda on 02-05-2023 Calcium [Mass/Vol] 9.4 mg/dL 8.5-10.1 [facility] Serum or plasma creatinine m easurement (mass/volume)Ordered By: Donato Sepulveda on 02-05-2023 Creatinine [Mass/Vol] 0.77 mg/dL 0.55-1.02 [facility] Comment on above: The validity of the calculated GFR & GFRAA in patients over 70 years has not been determined. Clinical correlation is essential. Serum or plasma urea nitroge n measurement (mass/volume)Ordered By: Donato Sepulveda on 02-05-2023 Urea nitrogen [Mass/Vol] 16 mg/dL 7-18 [facility] Thin prep Papanicolaou smear with manual screeningOrdered By: [facility] [place] on 02-05-2023 Thin prep Papanicolaou smear with manual screening 18 U/L 15-37 [facility] Thin prep Papanicolaou smear with manual screening 5 5-15 [facility] Whole blood hemoglobin A1c/t otal hemoglobin ratio (mass fraction)Ordered By: Raultonopahchar Sepulveda on 02-05-2023 HbA1c (Bld) [Mass fraction] 7.0 % 3.8-5.6 [facility] Comment on above: Normal < 5.7 % Predi abetic 5.7 - 6.4 % Diabetic >or= 6.5 % Please note range changes. Basophil percentageOrdered B y: Rauldyanchar Sepulveda on 12-07-2022 Potassium [Moles/Vol] 4.7 mmol/L 3.5-5.1 [facility] Basophil percentageOrdered B y: studyanchar Lombardirjnoris on 12-04-2022 Bilirubin [Mass/Vol] 0.30 mg/dL 0.20-1.00 [facility] Comment on above: For patients on eltr ombopag therapy, use of Dimension [place] TBIL is not recommended. Chloride [Moles/Vol] 102 mmol/L 98-107 [facility] Glucose [Mass/Vol] 219 mg/dL 74-106 [facility] Comment on above: Glucose result great er than or equal to 200 mg/dLsuggests DIABETES MELLITUS per A.D.A. criteria. Potassium [Moles/Vol] 2.9 mmol/L 3.5-5.1 [facility] Protein [Mass/Vol] 6.6 g/dL 6.4-8.2 [facility] Sodium [Moles/Vol] 137 mmol/L 136-145 [facility] WBC (Bld) [#/Vol] 4.6 10*3/uL 4.4-11.0 [facility] Blood erythrocytes count (nu mber/volume)Ordered By: Donato Sepulveda on 12-04-2022 RBC (Bld) [#/Vol] 4.22 10*6/uL 4.2-5.4 [facility] Blood hemoglobin measurement (mass/volume)Ordered By: Donato Sepulveda on 12-04-2022 Hemoglobin (Bld) [Mass/Vol] 12.4 g/dL 12.0-15.0 [facility] Blood platelet mean volumeOr dered By: Donato Sepulveda on 12-04-2022 Platelet mean volume (Bld) [Entitic vol] 10.7 fL 6.2-12.0 [facility] Determination of erythrocyte mean corpuscular volume (MCV)Ordered By: Donato Sepulveda on 12-04-2022 MCV (RBC) [Entitic vol] 93.8 fL 81-99 [facility] Hematocrit Auto (Bld) [Volum e fraction]Ordered By: Donato Sepulveda on 12-04-2022 Hematocrit (Bld) [Volume fraction] 39.6 % 37-47 [facility] - Chemistry and C hemistry - challengeOrdered By: Raultonopahchar Sepulveda on 12-04-2022 ALP [Catalytic activity/Vol] 85 U/L 45-117 [facility] ALT [Catalytic activity/Vol] 27 U/L 13-56 [facility] CO2 [Moles/Vol] 33.0 mmol/L 21.0-32.0 [facility] Globulin (S) [Mass/Vol] 3.6 g/dL 2.2-4.2 [facility] Urea nitrogen/Creatinine [Mass ratio] 13.7 mg/mg 10-20 [facility] - Hematology and Cell countsOrdered By: Donato Sepulveda on 12-04-2022 Erythrocyte distribution width (RBC) [Entitic vol] 43.8 fL 35.1-43.9 [facility] Erythrocyte distribution width (RBC) [Ratio] 12.8 % 11.6-14.6 [facility] MCH (RBC) [Entitic mass] 29.4 pg 27.0-32.0 [facility] MCHC Auto (RBC) [Mass/Vol]Or dered By: Donato Sepulveda on 12-04-2022 MCHC (RBC) [Mass/Vol] 31.3 g/dL 32-36 [facility] No Panel InformationOrdered By: Donato Sepulveda on 12-04-2022 Estimated GFR (MDRD) Amer 80 mL/min >60 [facility] Comment on above: GFR Calc Estimated GFR (MDRD) Non-Af Amer 66 mL/min >60 [facility] Comment on above: Non- GFR Calc Vitamin D 25-Hydroxy 40.9 ng/mL [facility] Comment on above: Vitamin D 25(OH) Sta tus Range Deficiency <20 ng/mL (50nmol/L) Insufficiency 20 - 30 ng/mL (50 - 75 nmol/L) Sufficiency 30 - 100 ng/mL (75 - 250 nmol/L) Toxicity >100 ng/mL (>250 nmol/L) Platelets bldOrdered By: Sherwin Sepulveda on 12-04-2022 Platelets (Bld) [#/Vol] 167 10*3/uL 150-450 [facility] Serum or plasma albumin serge urement (mass/volume)Ordered By: Donato Sepulveda on 12-04-2022 Albumin [Mass/Vol] 3.0 g/dL 3.2-5.0 [facility] Serum or plasma albumin/glob ulin mass ratioOrdered By: Donato Sepulveda on 12-04-2022 Albumin/Globulin [Mass ratio] 0.8 {ratio} 0.9-2.4 [facility] Serum or plasma calcium serge urement (mass/volume)Ordered By: Donato Sepulveda on 12-04-2022 Calcium [Mass/Vol] 8.6 mg/dL 8.5-10.1 [facility] Serum or plasma creatinine m easurement (mass/volume)Ordered By: Donato Sepulveda on 12-04-2022 Creatinine [Mass/Vol] 0.88 mg/dL 0.55-1.02 [facility] Comment on above: The validity of the calculated GFR & GFRAA in patients over 70 years has not been determined. Clinical correlation is essential. Serum or plasma urea nitroge n measurement (mass/volume)Ordered By: Galichar Lombardirjnoris on 12-04-2022 Urea nitrogen [Mass/Vol] 12 mg/dL 7-18 [facility] Thin prep Papanicolaou smear with manual screeningOrdered By: Donato Harjitrjnoris on 12-04-2022 Thin prep Papanicolaou smear with manual screening 31 U/L 15-37 [facility] Thin prep Papanicolaou smear with manual screening 2 5-15 [facility] Whole blood hemoglobin A1c/t otal hemoglobin ratio (mass fraction)Ordered By: Galichar Lombardirjnoris on 12-04-2022 HbA1c (Bld) [Mass fraction] 8.2 % 3.8-5.6 [facility] Comment on above: Normal < 5.7 % Predi abetic 5.7 - 6.4 % Diabetic >or= 6.5 % Please note range changes. Basophil percentageOrdered B y: Donato Sepulveda on 11-21-2022 Potassium [Moles/Vol] 3.3 mmol/L 3.5-5.1 [facility] Basophil percentageOrdered B y: Donato Sepulveda on 10-09-2022 Bilirubin [Mass/Vol] 0.40 mg/dL 0.20-1.00 [facility] Comment on above: For patients on eltr ombopag therapy, use of Dimension [place] TBIL is not recommended. Chloride [Moles/Vol] 104 mmol/L 98-107 [facility] Glucose [Mass/Vol] 135 mg/dL 74-106 [facility] Comment on above: Fasting Glucose resu lt greater than or equal to 126 mg/dL suggests DIABETES MELLITUS per A.D.A. criteria. Potassium [Moles/Vol] 3.1 mmol/L 3.5-5.1 [facility] Protein [Mass/Vol] 6.5 g/dL 6.4-8.2 [facility] Sodium [Moles/Vol] 141 mmol/L 136-145 [facility] WBC (Bld) [#/Vol] 6.8 10*3/uL 4.4-11.0 [facility] Blood erythrocytes count (nu mber/volume)Ordered By: Donato Sepulveda on 10-09-2022 RBC (Bld) [#/Vol] 3.95 10*6/uL 4.2-5.4 [facility] Blood hemoglobin measurement (mass/volume)Ordered By: Donato Sepulveda on 10-09-2022 Hemoglobin (Bld) [Mass/Vol] 11.7 g/dL 12.0-15.0 [facility] Blood platelet mean volumeOr dered By: Donato Sepulveda on 10-09-2022 Platelet mean volume (Bld) [Entitic vol] 10.7 fL 6.2-12.0 [facility] Determination of erythrocyte mean corpuscular volume (MCV)Ordered By: Donato Sepulveda on 10-09-2022 MCV (RBC) [Entitic vol] 94.4 fL 81-99 [facility] Hematocrit Auto (Bld) [Volum e fraction]Ordered By: [facility] Sepulveda on 10-09-2022 Hematocrit (Bld) [Volume fraction] 37.3 % 37-47 [facility] Laboratory - Chemistry and C hemistry - challengeOrdered By: Raultonopahcahr Sepulveda on 10-09-2022 ALP [Catalytic activity/Vol] 61 U/L 45-117 [facility] ALT [Catalytic activity/Vol] 16 U/L 13-56 [facility] CO2 [Moles/Vol] 34.0 mmol/L 21.0-32.0 [facility] Globulin (S) [Mass/Vol] 3.3 g/dL 2.2-4.2 [facility] Urea nitrogen/Creatinine [Mass ratio] 13.5 mg/mg 10-20 [facility] - Hematology and Cell countsOrdered By: Raultonopahchar Sepulveda on 10-09-2022 Erythrocyte distribution width (RBC) [Entitic vol] 44.6 fL 35.1-43.9 [facility] Erythrocyte distribution width (RBC) [Ratio] 12.8 % 11.6-14.6 [facility] MCH (RBC) [Entitic mass] 29.6 pg 27.0-32.0 [facility] MCHC Auto (RBC) [Mass/Vol]Or dered By: Donato Sepulveda on 10-09-2022 MCHC (RBC) [Mass/Vol] 31.4 g/dL 32-36 [facility] No Panel InformationOrdered By: Donato Sepulveda on 10-09-2022 Estimated GFR (MDRD) Amer 97 mL/min >60 [facility] Comment on above: GFR Calc Estimated GFR (MDRD) Non-Af Amer 80 mL/min >60 [facility] Comment on above: Non- GFR Calc Platelets bldOrdered By: Sherwin Sepulveda on 10-09-2022 Platelets (Bld) [#/Vol] 157 10*3/uL 150-450 [facility] Serum or plasma albumin serge urement (mass/volume)Ordered By: Donato Sepulveda on 10-09-2022 Albumin [Mass/Vol] 3.2 g/dL 3.2-5.0 [facility] Serum or plasma albumin/glob ulin mass ratioOrdered By: Donato Sepulveda on 10-09-2022 Albumin/Globulin [Mass ratio] 1.0 {ratio} 0.9-2.4 [facility] Serum or plasma calcium serge urement (mass/volume)Ordered By: Donato Sepulveda on 10-09-2022 Calcium [Mass/Vol] 9.1 mg/dL 8.5-10.1 [facility] Serum or plasma creatinine m easurement (mass/volume)Ordered By: Donato Sepulveda on 10-09-2022 Creatinine [Mass/Vol] 0.74 mg/dL 0.55-1.02 [facility] Comment on above: The validity of the calculated GFR & GFRAA in patients over 70 years has not been determined. Clinical correlation is essential. Serum or plasma urea nitroge n measurement (mass/volume)Ordered By: Donato Sepulveda on 10-09-2022 Urea nitrogen [Mass/Vol] 10 mg/dL 7-18 [facility] Thin prep Papanicolaou smear with manual screeningOrdered By: Donato Sepulveda on 10-09-2022 Thin prep Papanicolaou smear with manual screening 15 U/L 15-37 [facility] Thin prep Papanicolaou smear with manual screening 3 5-15 [facility] Basophil percentageOrdered B y: Basilio Flores on 10-05-2022 Cholesterol [Mass/Vol] 146 mg/dL <200 [facility] Comment on above: <200 mg/dL Desirable 200-240 mg/dL Borderline >240 mg/dL High Risk Triglyceride [Mass/Vol] 83 mg/dL <199 [facility] Comment on above: The drugs N-Acetylcy steine and Metamizole may falsely depress this assay.Serum Triglycerides Reference Interval Normal <150 mg/dL Borderline high 150 - 199 mg/dL High 200 - 499 mg/dL Very High > or = 500 mg/dL Serum or plasma cholesterol in HDL measurement (mass/volume)Ordered By: Basilio Flores on 10-05-2022 Cholesterol in HDL [Mass/Vol] 69 mg/dL >40 [facility] Comment on above: The drugs N-Acetylcy steine and Metamizole may falsely depress this assay. Reference Range HDL <40 mg/dL Low HDL Cholesterol HDL >or= 60 mg/dL High HDL Cholesterol Serum or plasma cholesterol in VLDL measurement (mass/volume)Ordered By: Basilio Floers on 10-05-2022 Cholesterol in VLDL [Mass/Vol] 17 mg/dL 5-40 [facility] Serum or plasma low density lipoprotein (LDL) cholesterol measurement (mass/volume)Ordered By: Basilio Flores on 10-05-2022 Cholesterol in LDL [Mass/Vol] 60 mg/dL 0-130 [facility] Basophil percentageOrdered B y: Donato Sepulveda on 10-04-2022 Cholesterol [Mass/Vol] 154 mg/dL <200 [facility] Comment on above: <200 mg/dL Desirable 200-240 mg/dL Borderline >240 mg/dL High Risk Triglyceride [Mass/Vol] 72 mg/dL <199 [facility] Comment on above: The drugs N-Acetylcy steine and Metamizole may falsely depress this assay.Serum Triglycerides Reference Interval Normal <150 mg/dL Borderline high 150 - 199 mg/dL High 200 - 499 mg/dL Very High > or = 500 mg/dL Serum or plasma cholesterol in HDL measurement (mass/volume)Ordered By: Donato Sepulveda on 10-04-2022 Cholesterol in HDL [Mass/Vol] 70 mg/dL >40 [facility] Comment on above: The drugs N-Acetylcy steine and Metamizole may falsely depress this assay. Reference Range HDL <40 mg/dL Low HDL Cholesterol HDL >or= 60 mg/dL High HDL Cholesterol Serum or plasma cholesterol in VLDL measurement (mass/volume)Ordered By: Donato Sepulveda on 10-04-2022 Cholesterol in VLDL [Mass/Vol] 14 mg/dL 5-40 [facility] Serum or plasma low density lipoprotein (LDL) cholesterol measurement (mass/volume)Ordered By: Donato Sepulveda on 10-04-2022 Cholesterol in LDL [Mass/Vol] 70 mg/dL 0-130 [facility] No Panel InformationOrdered By: Basilio Flores on 09-04-2022 Vitamin D 25-Hydroxy 54.3 ng/mL [facility] Comment on above: Vitamin D 25(OH) Sta tus Range Deficiency <20 ng/mL (50nmol/L) Insufficiency 20 - 30 ng/mL (50 - 75 nmol/L) Sufficiency 30 - 100 ng/mL (75 - 250 nmol/L) Toxicity >100 ng/mL (>250 nmol/L) Whole blood hemoglobin A1c/t otal hemoglobin ratio (mass fraction)Ordered By: Basilio Flores on 09-04-2022 HbA1c (Bld) [Mass fraction] 10.9 % 3.8-5.6 [facility] Comment on above: Normal < 5.7 % Predi abetic 5.7 - 6.4 % Diabetic >or= 6.5 % Please note range changes. Basophil percentageOrdered B y: Donato Sepulveda on 08-07-2022 Bilirubin [Mass/Vol] 0.60 mg/dL 0.20-1.00 [facility] Comment on above: For patients on eltr ombopag therapy, use of Dimension [place] TBIL is not recommended. Chloride [Moles/Vol] 98 mmol/L 98-107 [facility] Glucose [Mass/Vol] 432 mg/dL 74-106 [facility] Comment on above: Glucose result great er than or equal to 200 mg/dLsuggests DIABETES MELLITUS per A.D.A. criteria. Potassium [Moles/Vol] 3.5 mmol/L 3.5-5.1 [facility] Protein [Mass/Vol] 6.8 g/dL 6.4-8.2 [facility] Sodium [Moles/Vol] 136 mmol/L 136-145 [facility] WBC (Bld) [#/Vol] 4.7 10*3/uL 4.4-11.0 [facility] Blood erythrocytes count (nu mber/volume)Ordered By: Donato Sepulveda on 08-07-2022 RBC (Bld) [#/Vol] 4.19 10*6/uL 4.2-5.4 [facility] Blood hemoglobin measurement (mass/volume)Ordered By: Raultonopahchar Sepulveda on 08-07-2022 Hemoglobin (Bld) [Mass/Vol] 12.2 g/dL 12.0-15.0 [facility] Blood platelet mean volumeOr dered By: [facility] Sepul[facility] on 08-07-2022 Platelet mean volume (Bld) [Entitic vol] 10.5 fL 6.2-12.0 [facility] Determination of erythrocyte mean corpuscular volume (MCV)Ordered By: Donato Sepulveda on 08-07-2022 MCV (RBC) [Entitic vol] 92.8 fL 81-99 [facility] Hematocrit Auto (Bld) [Volum e fraction]Ordered By: Raultonopahchar Sepulveda on 08-07-2022 Hematocrit (Bld) [Volume fraction] 38.9 % 37-47 [facility] - Chemistry and C hemistry - challengeOrdered By: [facility] Sepulveda on 08-07-2022 ALP [Catalytic activity/Vol] 70 U/L 45-117 [facility] ALT [Catalytic activity/Vol] 19 U/L 13-56 [facility] CO2 [Moles/Vol] 36.0 mmol/L 21.0-32.0 [facility] Globulin (S) [Mass/Vol] 3.4 g/dL 2.2-4.2 [facility] Magnesium [Mass/Vol] 1.8 mg/dL 1.6-2.6 [facility] Urea nitrogen/Creatinine [Mass ratio] 15.1 mg/mg 10-20 [facility] - Hematology and Cell countsOrdered By: Donato Sepulveda on 08-07-2022 Erythrocyte distribution width (RBC) [Entitic vol] 44.1 fL 35.1-43.9 [facility] Erythrocyte distribution width (RBC) [Ratio] 13.0 % 11.6-14.6 [facility] MCH (RBC) [Entitic mass] 29.1 pg 27.0-32.0 [facility] MCHC Auto (RBC) [Mass/Vol]Or dered By: Donato Sepulveda on 08-07-2022 MCHC (RBC) [Mass/Vol] 31.4 g/dL 32-36 [facility] No Panel InformationOrdered By: Donato Sepulveda on 08-07-2022 Estimated GFR (MDRD) Amer 64 mL/min >60 [facility] Comment on above: GFR Calc Estimated GFR (MDRD) Non-Af Amer 53 mL/min >60 [facility] Comment on above: Non- GFR Calc Platelets bldOrdered By: Sherwin Sepulveda on 08-07-2022 Platelets (Bld) [#/Vol] 165 10*3/uL 150-450 [facility] Serum or plasma albumin serge urement (mass/volume)Ordered By: Donato Sepulveda on 08-07-2022 Albumin [Mass/Vol] 3.4 g/dL 3.2-5.0 [facility] Serum or plasma albumin/glob ulin mass ratioOrdered By: Donato Sepulveda on 08-07-2022 Albumin/Globulin [Mass ratio] 1.0 {ratio} 0.9-2.4 [facility] Serum or plasma calcium serge urement (mass/volume)Ordered By: Donato Sepulveda on 08-07-2022 Calcium [Mass/Vol] 9.7 mg/dL 8.5-10.1 [facility] Serum or plasma creatinine m easurement (mass/volume)Ordered By: Donato Sepulveda on 08-07-2022 Creatinine [Mass/Vol] 1.06 mg/dL 0.55-1.02 [facility] Comment on above: The validity of the calculated GFR & GFRAA in patients over 70 years has not been determined. Clinical correlation is essential. Serum or plasma urea nitroge n measurement (mass/volume)Ordered By: Donato Sepulveda on 08-07-2022 Urea nitrogen [Mass/Vol] 16 mg/dL 7-18 [facility] Thin prep Papanicolaou smear with manual screeningOrdered By: Donato Sepulveda on 08-07-2022 Thin prep Papanicolaou smear with manual screening 15 U/L 15-37 [facility] Thin prep Papanicolaou smear with manual screening 2 5-15 [facility] Basophil percentageOrdered B y: Basilio Flores on 06-12-2022 Bilirubin [Mass/Vol] 1.10 mg/dL 0.20-1.00 [facility] Comment on above: For patients on eltr ombopag therapy, use of Dimension [place] TBIL is not recommended. Chloride [Moles/Vol] 99 mmol/L 98-107 [facility] Glucose [Mass/Vol] 163 mg/dL 74-106 [facility] Comment on above: Fasting Glucose resu lt greater than or equal to 126 mg/dL suggests DIABETES MELLITUS per A.D.A. criteria. Potassium [Moles/Vol] 3.4 mmol/L 3.5-5.1 [facility] Protein [Mass/Vol] 7.4 g/dL 6.4-8.2 [facility] Sodium [Moles/Vol] 141 mmol/L 136-145 [facility] WBC (Bld) [#/Vol] 8.0 10*3/uL 4.4-11.0 [facility] Blood erythrocytes count (nu mber/volume)Ordered By: Basilio Flores on 06-12-2022 RBC (Bld) [#/Vol] 4.53 10*6/uL 4.2-5.4 [facility] Blood hemoglobin measurement (mass/volume)Ordered By: Basilio Flores on 06-12-2022 Hemoglobin (Bld) [Mass/Vol] 13.2 g/dL 12.0-15.0 [facility] Blood platelet mean volumeOr dered By: Basilio Flores on 06-12-2022 Platelet mean volume (Bld) [Entitic vol] 10.4 fL 6.2-12.0 [facility] Determination of erythrocyte mean corpuscular volume (MCV)Ordered By: Basilio Flores on 06-12-2022 MCV (RBC) [Entitic vol] 90.5 fL 81-99 [facility] Hematocrit Auto (Bld) [Volum e fraction]Ordered By: Basilio Flores on 06-12-2022 Hematocrit (Bld) [Volume fraction] 41.0 % 37-47 [facility] - Chemistry and C hemistry - challengeOrdered By: Basilio Flores on 06-12-2022 ALP [Catalytic activity/Vol] 88 U/L 45-117 [facility] ALT [Catalytic activity/Vol] 20 U/L 13-56 [facility] CO2 [Moles/Vol] 34.0 mmol/L 21.0-32.0 [facility] Globulin (S) [Mass/Vol] 3.7 g/dL 2.2-4.2 [facility] Urea nitrogen/Creatinine [Mass ratio] 15.1 mg/mg 10-20 [facility] - Hematology and Cell countsOrdered By: Basilio Flores on 06-12-2022 Erythrocyte distribution width (RBC) [Entitic vol] 42.0 fL 35.1-43.9 [facility] Erythrocyte distribution width (RBC) [Ratio] 12.8 % 11.6-14.6 [facility] MCH (RBC) [Entitic mass] 29.1 pg 27.0-32.0 [facility] MCHC Auto (RBC) [Mass/Vol]Or dered By: Basilio Flores on 06-12-2022 MCHC (RBC) [Mass/Vol] 32.2 g/dL 32-36 [facility] No Panel InformationOrdered By: Basilio Flores on 06-12-2022 Estimated GFR (MDRD) Amer 82 mL/min >60 [facility] Comment on above: GFR Calc Estimated GFR (MDRD) Non-Af Amer 67 mL/min >60 [facility] Comment on above: Non- GFR Calc Vitamin D 25-Hydroxy 49.1 ng/mL [facility] Comment on above: Vitamin D 25(OH) Sta tus Range Deficiency <20 ng/mL (50nmol/L) Insufficiency 20 - 30 ng/mL (50 - 75 nmol/L) Sufficiency 30 - 100 ng/mL (75 - 250 nmol/L) Toxicity >100 ng/mL (>250 nmol/L) Platelets bldOrdered By: August Flores on 06-12-2022 Platelets (Bld) [#/Vol] 188 10*3/uL 150-450 [facility] Serum or plasma albumin serge urement (mass/volume)Ordered By: Basilio Flores on 06-12-2022 Albumin [Mass/Vol] 3.7 g/dL 3.2-5.0 [facility] Serum or plasma albumin/glob ulin mass ratioOrdered By: Basilio Flores on 06-12-2022 Albumin/Globulin [Mass ratio] 1.0 {ratio} 0.9-2.4 [facility] Serum or plasma calcium serge urement (mass/volume)Ordered By: Basilio Flores on 06-12-2022 Calcium [Mass/Vol] 9.5 mg/dL 8.5-10.1 [facility] Serum or plasma creatinine m easurement (mass/volume)Ordered By: Basilio Flores on 06-12-2022 Creatinine [Mass/Vol] 0.86 mg/dL 0.55-1.02 [facility] Comment on above: The validity of the calculated GFR & GFRAA in patients over 70 years has not been determined. Clinical correlation is essential. Serum or plasma urea nitroge n measurement (mass/volume)Ordered By: Basiloi Flores on 06-12-2022 Urea nitrogen [Mass/Vol] 13 mg/dL 7-18 [facility] Thin prep Papanicolaou smear with manual screeningOrdered By: Basilio Flores on 06-12-2022 Thin prep Papanicolaou smear with manual screening 18 U/L 15-37 [facility] Thin prep Papanicolaou smear with manual screening 8 5-15 [facility] Whole blood hemoglobin A1c/t otal hemoglobin ratio (mass fraction)Ordered By: Basilio Flores on 06-12-2022 HbA1c (Bld) [Mass fraction] 9.2 % 3.8-5.6 [facility] Comment on above: Normal < 5.7 % Predi abetic 5.7 - 6.4 % Diabetic >or= 6.5 % Please note range changes. Basophil percentageOrdered B y: Donato Sepulveda on 04-17-2022 Chloride [Moles/Vol] 97 mmol/L 98-107 [facility] Glucose [Mass/Vol] 328 mg/dL 74-106 [facility] Comment on above: Glucose result great er than or equal to 200 mg/dLsuggests DIABETES MELLITUS per A.D.A. criteria. Potassium [Moles/Vol] 3.6 mmol/L 3.5-5.1 [facility] Sodium [Moles/Vol] 137 mmol/L 136-145 [facility] - Chemistry and C hemistry - challengeOrdered By: Donato Sepulveda on 04-17-2022 CO2 [Moles/Vol] 36.0 mmol/L 21.0-32.0 [facility] Urea nitrogen/Creatinine [Mass ratio] 13.7 mg/mg 10-20 [facility] No Panel InformationOrdered By: Donato Sepulveda on 04-17-2022 Estimated GFR (MDRD) Amer 73 mL/min >60 [facility] Comment on above: GFR Calc Estimated GFR (MDRD) Non-Af Amer 60 mL/min >60 [facility] Comment on above: Non- GFR Calc Serum or plasma calcium serge urement (mass/volume)Ordered By: Donato Sepulveda on 04-17-2022 Calcium [Mass/Vol] 9.5 mg/dL 8.5-10.1 [facility] Serum or plasma creatinine m easurement (mass/volume)Ordered By: Donato Sepulveda on 04-17-2022 Creatinine [Mass/Vol] 0.95 mg/dL 0.55-1.02 [facility] Comment on above: The validity of the calculated GFR & GFRAA in patients over 70 years has not been determined. Clinical correlation is essential. Serum or plasma urea nitroge n measurement (mass/volume)Ordered By: Donato Sepulveda on 04-17-2022 Urea nitrogen [Mass/Vol] 13 mg/dL 7-18 [facility] Thin prep Papanicolaou smear with manual screeningOrdered By: Donato Sepulveda on 04-17-2022 Thin prep Papanicolaou smear with manual screening 4 5-15 [facility] Basophil percentageOrdered B y: Donato Sepulveda on 04-13-2022 Potassium [Moles/Vol] 3.2 mmol/L 3.5-5.1 [facility] Basophil percentageOrdered B y: Basilio Flores on 04-10-2022 Bilirubin [Mass/Vol] 0.50 mg/dL 0.20-1.00 [facility] Comment on above: For patients on eltr ombopag therapy, use of Dimension [place] TBIL is not recommended. Chloride [Moles/Vol] 97 mmol/L 98-107 [facility] Glucose [Mass/Vol] 366 mg/dL 74-106 [facility] Comment on above: Glucose result great er than or equal to 200 mg/dLsuggests DIABETES MELLITUS per A.D.A. criteria. Potassium [Moles/Vol] 3.1 mmol/L 3.5-5.1 [facility] Protein [Mass/Vol] 7.3 g/dL 6.4-8.2 [facility] Sodium [Moles/Vol] 136 mmol/L 136-145 [facility] WBC (Bld) [#/Vol] 6.4 10*3/uL 4.4-11.0 [facility] Blood erythrocytes count (nu mber/volume)Ordered By: Basilio Flores on 04-10-2022 RBC (Bld) [#/Vol] 4.33 10*6/uL 4.2-5.4 [facility] Blood hemoglobin measurement (mass/volume)Ordered By: Basilio Flores on 04-10-2022 Hemoglobin (Bld) [Mass/Vol] 12.7 g/dL 12.0-15.0 [facility] Blood platelet mean volumeOr dered By: Basilio Flores on 04-10-2022 Platelet mean volume (Bld) [Entitic vol] 10.8 fL 6.2-12.0 [facility] Determination of erythrocyte mean corpuscular volume (MCV)Ordered By: Basilio Folres on 04-10-2022 MCV (RBC) [Entitic vol] 91.5 fL 81-99 [facility] Hematocrit Auto (Bld) [Volum e fraction]Ordered By: Basilio Flores on 04-10-2022 Hematocrit (Bld) [Volume fraction] 39.6 % 37-47 [facility] - Chemistry and C hemistry - challengeOrdered By: Basilio Flores on 04-10-2022 ALP [Catalytic activity/Vol] 90 U/L 45-117 [facility] ALT [Catalytic activity/Vol] 24 U/L 13-56 [facility] CO2 [Moles/Vol] 37.0 mmol/L 21.0-32.0 [facility] Globulin (S) [Mass/Vol] 4.0 g/dL 2.2-4.2 [facility] Urea nitrogen/Creatinine [Mass ratio] 14.5 mg/mg 10-20 [facility] - Hematology and Cell countsOrdered By: Basilio Flores on 04-10-2022 Erythrocyte distribution width (RBC) [Entitic vol] 42.4 fL 35.1-43.9 [facility] Erythrocyte distribution width (RBC) [Ratio] 12.6 % 11.6-14.6 [facility] MCH (RBC) [Entitic mass] 29.3 pg 27.0-32.0 [facility] MCHC Auto (RBC) [Mass/Vol]Or dered By: Basilio Flores on 04-10-2022 MCHC (RBC) [Mass/Vol] 32.1 g/dL 32-36 [facility] No Panel InformationOrdered By: Basilio Flores on 04-10-2022 Estimated GFR (MDRD) Amer 78 mL/min >60 [facility] Comment on above: GFR Calc Estimated GFR (MDRD) Non-Af Amer 64 mL/min >60 [facility] Comment on above: Non- GFR Calc Platelets bldOrdered By: August Flores on 04-10-2022 Platelets (Bld) [#/Vol] 216 10*3/uL 150-450 [facility] Serum or plasma albumin serge urement (mass/volume)Ordered By: Basilio Flores on 04-10-2022 Albumin [Mass/Vol] 3.3 g/dL 3.2-5.0 [facility] Serum or plasma albumin/glob ulin mass ratioOrdered By: Basilio Flores on 04-10-2022 Albumin/Globulin [Mass ratio] 0.8 {ratio} 0.9-2.4 [facility] Serum or plasma calcium serge urement (mass/volume)Ordered By: Basilio Flores on 04-10-2022 Calcium [Mass/Vol] 9.1 mg/dL 8.5-10.1 [facility] Serum or plasma creatinine m easurement (mass/volume)Ordered By: Basilio Flores on 04-10-2022 Creatinine [Mass/Vol] 0.90 mg/dL 0.55-1.02 [facility] Comment on above: The validity of the calculated GFR & GFRAA in patients over 70 years has not been determined. Clinical correlation is essential. Serum or plasma urea nitroge n measurement (mass/volume)Ordered By: Basilio Flores on 04-10-2022 Urea nitrogen [Mass/Vol] 13 mg/dL 7-18 [facility] Thin prep Papanicolaou smear with manual screeningOrdered By: Basilio Flores on 04-10-2022 Thin prep Papanicolaou smear with manual screening 22 U/L 15-37 [facility] Thin prep Papanicolaou smear with manual screening 2 5-15 [facility] No Panel InformationOrdered By: Basilio Flores on 03-06-2022 Vitamin D 25-Hydroxy 57.1 ng/mL [facility] Comment on above: Vitamin D 25(OH) Sta tus Range Deficiency <20 ng/mL (50nmol/L) Insufficiency 20 - 30 ng/mL (50 - 75 nmol/L) Sufficiency 30 - 100 ng/mL (75 - 250 nmol/L) Toxicity >100 ng/mL (>250 nmol/L) Whole blood hemoglobin A1c/t otal hemoglobin ratio (mass fraction)Ordered By: Basilio Flores on 03-06-2022 HbA1c (Bld) [Mass fraction] 7.4 % 3.8-5.6 [facility] Comment on above: Normal < 5.7 % Predi abetic 5.7 - 6.4 % Diabetic >or= 6.5 % Please note range changes. Basophil percentageon 2021 Bilirubin [Mass/Vol] 0.90 mg/dL 0.20-1.00 [facility] [facility] Work Phone: Comment on above: For patients on eltr ombopag therapy, use of Dimension [place] TBIL is not recommended. Chloride [Moles/Vol] 102 mmol/L 98-107 [facility] Work Phone: Glucose [Mass/Vol] 198 mg/dL 74-106 [facility] Work Phone: Comment on above: Fasting Glucose resu lt greater than or equal to 126 mg/dL suggests DIABETES MELLITUS per A.D.A. criteria. Potassium [Moles/Vol] 4.3 mmol/L 3.5-5.1 [facility] Work Phone: Protein [Mass/Vol] 7.3 g/dL 6.4-8.2 [facility] Work Phone: Sodium [Moles/Vol] 140 mmol/L 136-145 [facility] Work Phone: WBC (Bld) [#/Vol] 5.8 10*3/uL 4.4-11.0 [facility] Work Phone: Blood erythrocytes count (nu mber/volume)on 02-06-2022 RBC (Bld) [#/Vol] 4.46 10*6/uL 4.2-5.4 [facility] Work Phone: Blood hemoglobin measurement (mass/volume)on 02-06-2022 Hemoglobin (Bld) [Mass/Vol] 13.1 g/dL 12.0-15.0 [facility] Work Phone: Blood platelet mean volumeon 02-06-2022 Platelet mean volume (Bld) [Entitic vol] 10.5 fL 6.2-12.0 [facility] Work Phone: Determination of erythrocyte mean corpuscular volume (MCV)on 02-06-2022 MCV (RBC) [Entitic vol] 93.3 fL 81-99 [facility] Work Phone: Hematocrit Auto (Bld) [Volum e fraction]on 02-06-2022 Hematocrit (Bld) [Volume fraction] 41.6 % 37-47 [facility] Work Phone: Laboratory - Chemistry and C hemistry - challengeon 02-06-2022 ALP [Catalytic activity/Vol] 96 U/L 45-117 [facility] Work Phone: ALT [Catalytic activity/Vol] 22 U/L 13-56 [facility] Work Phone: CO2 [Moles/Vol] 32.0 mmol/L 21.0-32.0 [facility] Work Phone: Globulin (S) [Mass/Vol] 3.7 g/dL 2.2-4.2 [facility] Work Phone: Urea nitrogen/Creatinine [Mass ratio] 20.2 mg/mg 10-20 [facility] Work Phone: Laboratory - Hematology and Cell countson 02-06-2022 Erythrocyte distribution width (RBC) [Entitic vol] 46.5 fL 35.1-43.9 [facility] Work Phone: Erythrocyte distribution width (RBC) [Ratio] 13.5 % 11.6-14.6 [facility] Work Phone: MCH (RBC) [Entitic mass] 29.4 pg 27.0-32.0 [facility] Work Phone: MCHC Auto (RBC) [Mass/Vol]on 02-06-2022 MCHC (RBC) [Mass/Vol] 31.5 g/dL 32-36 [facility] Work Phone: No Panel Informationon 02-06 Estimated GFR (MDRD) Amer 66 mL/min >60 [facility] Work Phone: Comment on above: GFR Calc Estimated GFR (MDRD) Non-Af Amer 54 mL/min >60 [facility] Work Phone: Comment on above: Non- GFR Calc Platelets bldon 02-06-2022 Platelets (Bld) [#/Vol] 176 10*3/uL 150-450 [facility] Work Phone: Serum or plasma albumin serge urement (mass/volume)on 02-06-2022 Albumin [Mass/Vol] 3.6 g/dL 3.2-5.0 [facility] Work Phone: Serum or plasma albumin/glob ulin mass ratioon 02-06-2022 Albumin/Globulin [Mass ratio] 1.0 {ratio} 0.9-2.4 [facility] Work Phone: Serum or plasma calcium serge urement (mass/volume)on 02-06-2022 Calcium [Mass/Vol] 9.5 mg/dL 8.5-10.1 [facility] Work Phone: Serum or plasma creatinine m easurement (mass/volume)on 02-06-2022 Creatinine [Mass/Vol] 1.04 mg/dL 0.55-1.02 [facility] Work Phone: Comment on above: The validity of the calculated GFR & GFRAA in patients over 70 years has not been determined. Clinical correlation is essential. Serum or plasma urea nitroge n measurement (mass/volume)on 02-06-2022 Urea nitrogen [Mass/Vol] 21 mg/dL 7-18 [facility] Work Phone: Thin prep Papanicolaou smear with manual screeningon 02-06-2022 Thin prep Papanicolaou smear with manual screening 20 U/L 15-37 [facility] Work Phone: Thin prep Papanicolaou smear with manual screening 6 5-15 [facility] Work Phone: Basophil percentageon 2021 Bilirubin [Mass/Vol] 0.50 mg/dL 0.20-1.00 [facility] Work Phone: Comment on above: For patients on eltr ombopag therapy, use of Dimension [place] TBIL is not recommended. Chloride [Moles/Vol] 106 mmol/L 98-107 [facility] Work Phone: Glucose [Mass/Vol] 149 mg/dL 74-106 [facility] Work Phone: Comment on above: Fasting Glucose resu lt greater than or equal to 126 mg/dL suggests DIABETES MELLITUS per A.D.A. criteria. Potassium [Moles/Vol] 3.6 mmol/L 3.5-5.1 [facility] Work Phone: Protein [Mass/Vol] 6.7 g/dL 6.4-8.2 [facility] Work Phone: Sodium [Moles/Vol] 142 mmol/L 136-145 [facility] Work Phone: WBC (Bld) [#/Vol] 6.0 10*3/uL 4.4-11.0 [facility] Work Phone: Blood erythrocytes count (nu mber/volume)on 12-05-2021 RBC (Bld) [#/Vol] 4.12 10*6/uL 4.2-5.4 [facility] Work [facility]: Blood hemoglobin measurement (mass/volume)on 12-05-2021 Hemoglobin (Bld) [Mass/Vol] 11.9 g/dL 12.0-15.0 [facility] Work Phone: Blood platelet mean volumeon 12-05-2021 Platelet mean volume (Bld) [Entitic vol] 10.9 fL 6.2-12.0 [facility] Work Phone: Determination of erythrocyte mean corpuscular volume (MCV)on 12-05-2021 MCV (RBC) [Entitic vol] 92.5 fL 81-99 [facility] Work Phone: Hematocrit Auto (Bld) [Volum e fraction]on 12-05-2021 Hematocrit (Bld) [Volume fraction] 38.1 % 37-47 [facility] Work Phone: Laboratory - Chemistry and C hemistry - challengeon 12-05-2021 ALP [Catalytic activity/Vol] 86 U/L 45-117 [facility] Work Phone: ALT [Catalytic activity/Vol] 17 U/L 13-56 [facility] Work Phone: CO2 [Moles/Vol] 34.0 mmol/L 21.0-32.0 [facility] Work Phone: Globulin (S) [Mass/Vol] 3.6 g/dL 2.2-4.2 [facility] Work Phone: Urea nitrogen/Creatinine [Mass ratio] 14.5 mg/mg 10-20 [facility] Work Phone: Laboratory - Hematology and Cell countson 12-05-2021 Erythrocyte distribution width (RBC) [Entitic vol] 45.8 fL 35.1-43.9 [facility] Work Phone: Erythrocyte distribution width (RBC) [Ratio] 13.4 % 11.6-14.6 [facility] Work Phone: MCH (RBC) [Entitic mass] 28.9 pg 27.0-32.0 [facility] Work Phone: MCHC Auto (RBC) [Mass/Vol]on 12-05-2021 MCHC (RBC) [Mass/Vol] 31.2 g/dL 32-36 [facility] Work Phone: No Panel Informationon 12-05 Estimated GFR (MDRD) Amer 78 mL/min >60 [facility] Work Phone: Comment on above: GFR Calc Estimated GFR (MDRD) Non-Af Amer 64 mL/min >60 [facility] Work Phone: Comment on above: Non- GFR Calc Vitamin D 25-Hydroxy 90.8 ng/mL [facility] Work Phone: Comment on above: Vitamin D 25(OH) Sta tus Range Deficiency <20 ng/mL (50nmol/L) Insufficiency 20 - 30 ng/mL (50 - 75 nmol/L) Sufficiency 30 - 100 ng/mL (75 - 250 nmol/L) Toxicity >100 ng/mL (>250 nmol/L) Platelets bldon 12-05-2021 Platelets (Bld) [#/Vol] 162 10*3/uL 150-450 [facility] Work Phone: Serum or plasma albumin serge urement (mass/volume)on 12-05-2021 Albumin [Mass/Vol] 3.1 g/dL 3.2-5.0 [facility] Work Phone: Serum or plasma albumin/glob ulin mass ratioon 12-05-2021 Albumin/Globulin [Mass ratio] 0.9 {ratio} 0.9-2.4 [facility] Work Phone: Serum or plasma calcium serge urement (mass/volume)on 12-05-2021 Calcium [Mass/Vol] 9.3 mg/dL 8.5-10.1 [facility] Work Phone: Serum or plasma creatinine m easurement (mass/volume)on 12-05-2021 Creatinine [Mass/Vol] 0.90 mg/dL 0.55-1.02 [facility] Work Phone: Comment on above: The validity of the calculated GFR & GFRAA in patients over 70 years has not been determined. Clinical correlation is essential. Serum or plasma urea nitroge n measurement (mass/volume)on 12-05-2021 Urea nitrogen [Mass/Vol] 13 mg/dL 7-18 [facility] Work Phone: Thin prep Papanicolaou smear with manual screeningon 12-05-2021 Thin prep Papanicolaou smear with manual screening 18 U/L 15-37 [facility] Work Phone: Thin prep Papanicolaou smear with manual screening 2 5-15 [facility] Work Phone: Whole blood hemoglobin A1c/t otal hemoglobin ratio (mass fraction)on 12-05-2021 HbA1c (Bld) [Mass fraction] 7.4 % 3.8-5.6 [facility] Work Phone: Comment on above: Normal < 5.7 % Predi abetic 5.7 - 6.4 % Diabetic >or= 6.5 % Please note range changes. Whole blood hemoglobin A1c/t otal hemoglobin ratio (mass fraction)on 11-14-2021 HbA1c (Bld) [Mass fraction] 8.5 % 3.8-5.6 [facility] Work Phone: Comment on above: Normal < 5.7 % Predi abetic 5.7 - 6.4 % Diabetic >or= 6.5 % Please note range changes. Whole blood hemoglobin A1c/t otal hemoglobin ratio (mass fraction)on 10-17-2021 HbA1c (Bld) [Mass fraction] 7.7 % 3.8-5.6 [facility] Work Phone: Comment on above: Normal < 5.7 % Predi abetic 5.7 - 6.4 % Diabetic >or= 6.5 % Please note range changes. Basophil percentageon 2021 Bilirubin [Mass/Vol] 0.40 mg/dL 0.20-1.00 [facility] Work Phone: Comment on above: For patients on eltr ombopag therapy, use of Dimension [place] TBIL is not recommended. Chloride [Moles/Vol] 105 mmol/L 98-107 [facility] Work Phone: Cholesterol [Mass/Vol] 130 mg/dL <200 [facility] Work Phone: Comment on above: <200 mg/dL Desirable 200-240 mg/dL Borderline >240 mg/dL High Risk Glucose [Mass/Vol] 127 mg/dL 74-106 [facility] Work Phone: Comment on above: Fasting Glucose resu lt greater than or equal to 126 mg/dL suggests DIABETES MELLITUS per A.D.A. criteria. Potassium [Moles/Vol] 3.7 mmol/L 3.5-5.1 [facility] Work Phone: Protein [Mass/Vol] 6.4 g/dL 6.4-8.2 [facility] Work Phone: Sodium [Moles/Vol] 145 mmol/L 136-145 [facility] Work Phone: Triglyceride [Mass/Vol] 77 mg/dL <199 [facility] Work Phone: Comment on above: The drugs N-Acetylcy steine and Metamizole may falsely depress this assay.Serum Triglycerides Reference Interval Normal <150 mg/dL Borderline high 150 - 199 mg/dL High 200 - 499 mg/dL Very High > or = 500 mg/dL WBC (Bld) [#/Vol] 5.7 10*3/uL 4.4-11.0 [facility] Work Phone: Blood erythrocytes count (nu mber/volume)on 10-05-2021 RBC (Bld) [#/Vol] 4.01 10*6/uL 4.2-5.4 [facility] Work Phone: Blood hemoglobin measurement (mass/volume)on 10-05-2021 Hemoglobin (Bld) [Mass/Vol] 11.5 g/dL 12.0-15.0 [facility] Work Phone: Blood platelet mean volumeon 10-05-2021 Platelet mean volume (Bld) [Entitic vol] 11.3 fL 6.2-12.0 [facility] Work Phone: Determination of erythrocyte mean corpuscular volume (MCV)on 10-05-2021 MCV (RBC) [Entitic vol] 93.3 fL 81-99 [facility] Work Phone: Hematocrit Auto (Bld) [Volum e fraction]on 10-05-2021 Hematocrit (Bld) [Volume fraction] 37.4 % 37-47 [facility] Work Phone: Laboratory - Chemistry and C hemistry - challengeon 10-05-2021 ALP [Catalytic activity/Vol] 80 U/L 45-117 [facility] Work Phone: ALT [Catalytic activity/Vol] 16 U/L 13-56 [facility] Work Phone: CO2 [Moles/Vol] 29.0 mmol/L 21.0-32.0 [facility] Work Phone: Globulin (S) [Mass/Vol] 3.1 g/dL 2.2-4.2 [facility] Work Phone: Urea nitrogen/Creatinine [Mass ratio] 17.1 mg/mg 10-20 [facility] Work Phone: Laboratory - Hematology and Cell countson 10-05-2021 Erythrocyte distribution width (RBC) [Entitic vol] 44.9 fL 35.1-43.9 [facility] Work Phone: Erythrocyte distribution width (RBC) [Ratio] 13.2 % 11.6-14.6 [facility] Work Phone: MCH (RBC) [Entitic mass] 28.7 pg 27.0-32.0 [facility] Work Phone: MCHC Auto (RBC) [Mass/Vol]on 10-05-2021 MCHC (RBC) [Mass/Vol] 30.7 g/dL 32-36 [facility] Work Phone: No Panel Informationon 10-05 Estimated GFR (MDRD) Amer 65 mL/min >60 [facility] Work Phone: Comment on above: GFR Calc Estimated GFR (MDRD) Non-Af Amer 54 mL/min >60 [facility] Work Phone: Comment on above: Non- GFR Calc Platelets bldon 10-05-2021 Platelets (Bld) [#/Vol] 164 10*3/uL 150-450 [facility] Work Phone: Serum or plasma albumin serge urement (mass/volume)on 10-05-2021 Albumin [Mass/Vol] 3.3 g/dL 3.2-5.0 [facility] Work Phone: Serum or plasma albumin/glob ulin mass ratioon 10-05-2021 Albumin/Globulin [Mass ratio] 1.1 {ratio} 0.9-2.4 [facility] Work Phone: Serum or plasma calcium serge urement (mass/volume)on 10-05-2021 Calcium [Mass/Vol] 8.8 mg/dL 8.5-10.1 [facility] Work Phone: Serum or plasma cholesterol in HDL measurement (mass/volume)on 10-05-2021 Cholesterol in HDL [Mass/Vol] 47 mg/dL >40 [facility] Work Phone: Comment on above: The drugs N-Acetylcy steine and Metamizole may falsely depress this assay. Reference Range HDL <40 mg/dL Low HDL Cholesterol HDL >or= 60 mg/dL High HDL Cholesterol Serum or plasma cholesterol in VLDL measurement (mass/volume)on 10-05-2021 Cholesterol in VLDL [Mass/Vol] 15 mg/dL 5-40 [facility] Work Phone: Serum or plasma creatinine m easurement (mass/volume)on 10-05-2021 Creatinine [Mass/Vol] 1.05 mg/dL 0.55-1.02 [facility] Work Phone: Comment on above: The validity of the calculated GFR & GFRAA in patients over 70 years has not been determined. Clinical correlation is essential. Serum or plasma low density lipoprotein (LDL) cholesterol measurement (mass/volume)on 10-05-2021 Cholesterol in LDL [Mass/Vol] 68 mg/dL 0-130 [facility] Work Phone: Serum or plasma urea nitroge n measurement (mass/volume)on 10-05-2021 Urea nitrogen [Mass/Vol] 18 mg/dL 7-18 [facility] Work Phone: Thin prep Papanicolaou smear with manual screeningon 10-05-2021 Thin prep Papanicolaou smear with manual screening 18 U/L 15-37 [facility] Work Phone: Thin prep Papanicolaou smear with manual screening 11 5-15 [facility] Work Phone: No Panel Informationon 09-05 Vitamin D 25-Hydroxy 44.4 ng/mL [facility] Work Phone: Comment on above: Vitamin D 25(OH) Sta tus Range Deficiency <20 ng/mL (50nmol/L) Insufficiency 20 - 30 ng/mL (50 - 75 nmol/L) Sufficiency 30 - 100 ng/mL (75 - 250 nmol/L) Toxicity >100 ng/mL (>250 nmol/L) Whole blood hemoglobin A1c/t otal hemoglobin ratio (mass fraction)on 09-05-2021 HbA1c (Bld) [Mass fraction] 8.3 % 3.8-5.6 [facility] Work Phone: Comment on above: Normal < 5.7 % Predi abetic 5.7 - 6.4 % Diabetic >or= 6.5 % Please note range changes. Basophil percentageon 2021 Bilirubin [Mass/Vol] 0.40 mg/dL 0.20-1.00 [facility] Work Phone: Comment on above: For patients on eltr ombopag therapy, use of Dimension [place] TBIL is not recommended. Chloride [Moles/Vol] 102 mmol/L 98-107 [facility] Work Phone: Glucose [Mass/Vol] 358 mg/dL 74-106 [facility] Work Phone: Comment on above: Glucose result great er than or equal to 200 mg/dLsuggests DIABETES MELLITUS per A.D.A. criteria. Potassium [Moles/Vol] 3.3 mmol/L 3.5-5.1 [facility] Work Phone: Protein [Mass/Vol] 6.8 g/dL 6.4-8.2 [facility] Work Phone: Sodium [Moles/Vol] 139 mmol/L 136-145 [facility] Work Phone: WBC (Bld) [#/Vol] 5.6 10*3/uL 4.4-11.0 [facility] Work Phone: Blood erythrocytes count (nu mber/volume)on 08-08-2021 RBC (Bld) [#/Vol] 3.99 10*6/uL 4.2-5.4 [facility] Work Phone: Blood hemoglobin measurement (mass/volume)on 08-08-2021 Hemoglobin (Bld) [Mass/Vol] 11.5 g/dL 12.0-15.0 [facility] Work Phone: Blood platelet mean volumeon 08-08-2021 Platelet mean volume (Bld) [Entitic vol] 11.0 fL 6.2-12.0 [facility] Work Phone: Determination of erythrocyte mean corpuscular volume (MCV)on 08-08-2021 MCV (RBC) [Entitic vol] 91.7 fL 81-99 [facility] Work Phone: Hematocrit Auto (Bld) [Volum e fraction]on 08-08-2021 Hematocrit (Bld) [Volume fraction] 36.6 % 37-47 [facility] Work Phone: Laboratory - Chemistry and C hemistry - challengeon 08-08-2021 ALP [Catalytic activity/Vol] 85 U/L 45-117 [facility] Work Phone: ALT [Catalytic activity/Vol] 17 U/L 13-56 [facility] Work Phone: CO2 [Moles/Vol] 33.0 mmol/L 21.0-32.0 [facility] Work Phone: Globulin (S) [Mass/Vol] 3.8 g/dL 2.2-4.2 [facility] Work Phone: Urea nitrogen/Creatinine [Mass ratio] 12.7 mg/mg 10-20 [facility] Work Phone: Laboratory - Hematology and Cell countson 08-08-2021 Erythrocyte distribution width (RBC) [Entitic vol] 43.0 fL 35.1-43.9 [facility] Work Phone: Erythrocyte distribution width (RBC) [Ratio] 12.7 % 11.6-14.6 [facility] Work Phone: MCH (RBC) [Entitic mass] 28.8 pg 27.0-32.0 [facility] Work Phone: MCHC Auto (RBC) [Mass/Vol]on 08-08-2021 MCHC (RBC) [Mass/Vol] 31.4 g/dL 32-36 [facility] Work Phone: No Panel Informationon 08-08 Estimated GFR (MDRD) Amer 67 mL/min >60 [facility] Work Phone: Comment on above: GFR Calc Estimated GFR (MDRD) Non-Af Amer 56 mL/min >60 [facility] Work Phone: Comment on above: Non- GFR Calc Platelets bldon 08-08-2021 Platelets (Bld) [#/Vol] 155 10*3/uL 150-450 [facility] Work Phone: Serum or plasma albumin serge urement (mass/volume)on 08-08-2021 Albumin [Mass/Vol] 3.0 g/dL 3.2-5.0 [facility] Work Phone: Serum or plasma albumin/glob ulin mass ratioon 08-08-2021 Albumin/Globulin [Mass ratio] 0.8 {ratio} 0.9-2.4 [facility] Work Phone: Serum or plasma calcium serge urement (mass/volume)on 08-08-2021 Calcium [Mass/Vol] 9.3 mg/dL 8.5-10.1 [facility] Work Phone: Serum or plasma creatinine m easurement (mass/volume)on 08-08-2021 Creatinine [Mass/Vol] 1.02 mg/dL 0.55-1.02 [facility] Work Phone: Comment on above: The validity of the calculated GFR & GFRAA in patients over 70 years has not been determined. Clinical correlation is essential. Serum or plasma urea nitroge n measurement (mass/volume)on 08-08-2021 Urea nitrogen [Mass/Vol] 13 mg/dL 7-18 [facility] Work Phone: Thin prep Papanicolaou smear with manual screeningon 08-08-2021 Thin prep Papanicolaou smear with manual screening 15 U/L 15-37 [facility] Work Phone: Thin prep Papanicolaou smear with manual screening 4 5-15 [facility] Work Phone: Basophil percentageon 2021 Basophil percentage 3.6 mg/dL 2.5-4.9 [facility] Work [facility]: Chloride [Moles/Vol] 99 mmol/L 98-107 [facility]: Glucose [Mass/Vol] 311 mg/dL 74-106 [facility] Work Phone: Comment on above: Glucose result great er than or equal to 200 mg/dLsuggests DIABETES MELLITUS per A.D.A. criteria. Potassium [Moles/Vol] 3.7 mmol/L 3.5-5.1 [facility] Work Phone: Sodium [Moles/Vol] 139 mmol/L 136-145 [facility] Work Phone: WBC (Bld) [#/Vol] 6.1 10*3/uL 4.4-11.0 [facility] Work Phone: Blood erythrocytes count (nu mber/volume)on 07-12-2021 RBC (Bld) [#/Vol] 4.40 10*6/uL 4.2-5.4 [facility] Work Phone: Blood hemoglobin measurement (mass/volume)on 07-12-2021 Hemoglobin (Bld) [Mass/Vol] 12.5 g/dL 12.0-15.0 [facility] Work Phone: Blood platelet mean volumeon 07-12-2021 Platelet mean volume (Bld) [Entitic vol] 11.0 fL 6.2-12.0 [facility] Work Phone: Determination of erythrocyte mean corpuscular volume (MCV)on 07-12-2021 MCV (RBC) [Entitic vol] 90.7 fL 81-99 [facility] Work Phone: Hematocrit Auto (Bld) [Volum e fraction]on 07-12-2021 Hematocrit (Bld) [Volume fraction] 39.9 % 37-47 [facility] Work Phone: Laboratory - Chemistry and C hemistry - challengeon 07-12-2021 CO2 [Moles/Vol] 34.0 mmol/L 21.0-32.0 [facility] Work Phone: Urea nitrogen/Creatinine [Mass ratio] 14.2 mg/mg 10-20 [facility] Work Phone: Laboratory - Hematology and Cell countson 07-12-2021 Erythrocyte distribution width (RBC) [Entitic vol] 42.3 fL 35.1-43.9 [facility] Work Phone: Erythrocyte distribution width (RBC) [Ratio] 12.8 % 11.6-14.6 [facility] Work Phone: MCH (RBC) [Entitic mass] 28.4 pg 27.0-32.0 [facility] Work Phone: MCHC Auto (RBC) [Mass/Vol]on 07-12-2021 MCHC (RBC) [Mass/Vol] 31.3 g/dL 32-36 [facility] Work Phone: No Panel Informationon 07-12 Estimated GFR (MDRD) Amer 64 mL/min >60 [facility] Work Phone: Comment on above: GFR Calc Estimated GFR (MDRD) Non-Af Amer 53 mL/min >60 [facility] Work Phone: Comment on above: Non- GFR Calc Parathyroid Hormone (Intact) 38.0 pg/mL 18.4-80.1 [facility] Work Phone: Vitamin D 25-Hydroxy 10.0 ng/mL [facility] Work Phone: Comment on above: Vitamin D 25(OH) Sta tus Range Deficiency <20 ng/mL (50nmol/L) Insufficiency 20 - 30 ng/mL (50 - 75 nmol/L) Sufficiency 30 - 100 ng/mL (75 - 250 nmol/L) Toxicity >100 ng/mL (>250 nmol/L) Platelets bldon 07-12-2021 Platelets (Bld) [#/Vol] 188 10*3/uL 150-450 [facility] Work Phone: Serum or plasma albumin serge urement (mass/volume)on 07-12-2021 Albumin [Mass/Vol] 3.2 g/dL 3.2-5.0 [facility] Work Phone: Serum or plasma calcium serge urement (mass/volume)on 07-12-2021 Calcium [Mass/Vol] 9.8 mg/dL 8.5-10.1 [facility] Work Phone: Serum or plasma creatinine m easurement (mass/volume)on 07-12-2021 Creatinine [Mass/Vol] 1.06 mg/dL 0.55-1.02 [facility] Work Phone: Comment on above: The validity of the calculated GFR & GFRAA in patients over 70 years has not been determined. Clinical correlation is essential. Serum or plasma urea nitroge n measurement (mass/volume)on 07-12-2021 Urea nitrogen [Mass/Vol] 15 mg/dL 7- [facility] Work Phone: Clinical Summary: HMSPatient IDon 03-16-2019 OOP [facility] Work Phone: Office Visit: New - 1st visi t with practice, Rm: PT2on 03-16-2019 NEGATED: Highlighted rowMRI (magnetic resonance imaging) history of the cervical spine on 11/24/2018 at [facility] Work Phone: NEGATED: Highlighted rowTobacco smoking status NHIS Tobacco smoking status INIS [facility] Work Phone: Vital Signs Date Time Vital Sign Value Performing Clinician Facility 02-19-2025 09:44-0400 Body height 162.[address] Donato Sepulveda MD Work Phone: [facility] 10-20-2024 18:22-0400 Diastolic blood pressure 78 mm[Hg] Dr. Basilio Flores MD Work Phone: [facility] 10-20-2024 18:22-0400 Heart rate 72 /min Dr. Basilio Flores MD Work Phone: [phone] [place] [address] 10-20-2024 18:22-0400 Respiratory rate 18 /min Dr. Basilio Flores MD Work Phone: [phone] [place] [address] 10-20-2024 18:22-0400 SaO2% (BldA) [Mass fraction] 94 % Dr. Basilio Flores MD Work Phone: [phone] [place] [address] 10-20-2024 18:22-0400 Systolic blood pressure 164 mm[Hg] Dr. Basilio Flores MD Work Phone: [phone] [place] [address] 10-20-2024 12:21-0400 Body temperature 97.9 [degF] Dr. Basilio Flores MD Work Phone: [phone] [place] [address] 10-20-2024 03:45-0400 Body mass index (BMI) [Ratio] 19.7 kg/m2 Dr. Basilio Flores MD Work Phone: [phone] [place] [address] 10-20-2024 03:45-0400 Body weight 52.[address] Basilio Flores MD Work Phone: [phone] [place] [address] 10-19-2024 10:15-0400 Body height 162.[address] Basilio Flores MD Work Phone: 1(390)292-871643 [place] [address] 10-18-2024 21:51-0400 Body temperature 97.8 [degF] Dr. Basilio Flores MD Work Phone: 3(522)610-103043 [place] [address] 10-18-2024 21:51-0400 Diastolic blood pressure 75 mm[Hg] Dr. Basilio Flores MD Work Phone: 2(826)277-218043 [place] [address] 10-18-2024 21:51-0400 Heart rate 83 /min Dr. Basilio Flores MD Work Phone: 8(273)535-930043 [place] [address] 10-18-2024 21:51-0400 Respiratory rate 16 /min Dr. Basilio Flores MD Work Phone: 4(066)490-421043 [place] [address] 10-18-2024 21:51-0400 SaO2% (BldA) [Mass fraction] 94 % Dr. Basilio Flores MD Work Phone: 6(857)977-155443 [place] [address] 10-18-2024 21:51-0400 Systolic blood pressure 169 mm[Hg] Dr. Basilio Flores MD Work Phone: 5(563)408-478143 [place] [address] 10-18-2024 16:46-0400 Body height 157.[address] Basilio Flores MD Work Phone: 5(363)491-418543 [place] [address] 10-18-2024 16:46-0400 Body mass index (BMI) [Ratio] 22.6 kg/m2 Dr. Basilio Flores MD Work Phone: 3(782)156-469243 [place] [address] 10-18-2024 16:46-0400 Body weight 56.[address] Basilio Flores MD Work Phone: 0(507)204-539043 [place] [address] 08-24-2024 09:43-0400 Body temperature 98.9 [degF] Dr. Basilio Flores MD Work Phone: 9(386)363-223643 [place] [address] 08-24-2024 09:43-0400 Diastolic blood pressure 69 mm[Hg] Dr. Basilio Flores MD Work Phone: 7(775)883-963643 [place] [address] 08-24-2024 09:43-0400 Heart rate 72 /min Dr. Basilio Flores MD Work Phone: 8(883)403-695243 [place] [address] 08-24-2024 09:43-0400 Respiratory rate 16 /min Dr. Basilio Flores MD Work Phone: 8(659)001-876243 [place] [address] 08-24-2024 09:43-0400 SaO2% (BldA) [Mass fraction] 98 % Dr. Basilio Flores MD Work Phone: 8(893)182-364243 [place] [address] 08-24-2024 09:43-0400 Systolic blood pressure 149 mm[Hg] Dr. Basilio Flores MD Work Phone: 6(501)376-210343 [place] [address] 08-24-2024 08:47-0400 Body height 157.[address] Basilio Flores MD Work Phone: 3(734)110-937943 [place] [address] 08-24-2024 08:47-0400 Body mass index (BMI) [Ratio] 22.1 kg/m2 Dr. Basilio Flores MD Work Phone: 7(307)481-139543 [place] [address] 08-24-2024 08:47-0400 Body weight [address] Basilio Flores MD Work Phone: 6(172)091-164643 [place] [address] 06-08-2023 09:40-0500 Diastolic blood pressure 77 mm[Hg] Dr. Basilio Flores Work Phone: 2(370)988-886543 [place] [address] 06-08-2023 09:40-0500 Heart rate 82 /min Dr. Basilio Flores Work Phone: 8(472)476-496043 [place] [address] 06-08-2023 09:40-0500 Respiratory rate 16 /min Dr. Basilio Flores Work Phone: 4(628)526-090243 [place] [address] 06-08-2023 09:40-0500 SaO2% (BldA) [Mass fraction] 98 % Dr. Basilio Flores Work Phone: 6(009)633-451743 [place] [address] 06-08-2023 09:40-0500 Systolic blood pressure 135 mm[Hg] Dr. Basilio Flores Work Phone: 5(130)310-797843 [place] [address] 06-08-2023 08:04-0500 Body height 157.[address] Basilio Flores Work Phone: 8(505)277-470943 [place] [address] 06-08-2023 08:04-0500 Body mass index (BMI) [Ratio] 25.7 kg/m2 Dr. Basilio Flores Work Phone: 9(385)119-138543 [place] [address] 06-08-2023 08:04-0500 Body temperature 97.9 [degF] Dr. Basilio Flores Work Phone: 5(617)940-443843 [place] [address] 06-08-2023 08:04-0500 Body weight 63.[address] Basilio Flores Work Phone: 4(636)122-411943 [place] [address] 06-05-2023 08:33-0500 Diastolic blood pressure 67 mm[Hg] Dr. Basilio Flores Work Phone: 5(461)213-415543 [place] [address] 06-05-2023 08:33-0500 Heart rate 81 /min Dr. Basilio Flores Work Phone: 5(147)012-482443 [place] [address] 06-05-2023 08:33-0500 Respiratory rate 16 /min Dr. Basilio Flores Work Phone: 5(427)769-468943 [place] [address] 06-05-2023 08:33-0500 SaO2% (BldA) [Mass fraction] 93 % Dr. Basilio Flores Work Phone: 4(209)908-063592 [place] [address] 06-05-2023 08:33-0500 Systolic blood pressure 142 mm[Hg] Dr. Basilio Flores Work Phone: 4(054)136-605043 [place] [address] 06-05-2023 03:42-0500 Body height 162.[address] Basilio Flores Work Phone: 1(778)313-162343 [place] [address] 06-05-2023 03:42-0500 Body mass index (BMI) [Ratio] 23.9 kg/m2 Dr. Basilio Flores Work Phone: 8(464)000-514943 [place] [address] 06-05-2023 03:42-0500 Body temperature 97.6 [degF] Dr. Basilio Flores Work Phone: 2(753)613-949743 [place] [address] 06-05-2023 03:42-0500 Body weight 63.[address] Basilio Flores Work Phone: 4(871)506-645243 [place] [address] NEGATED: Highlighted [id number] 14:06-0500 BMI (Body Mass Index) 44.85 kg/m2 Arcenio Moreira AT [facility] Work Phone: NEGATED: Highlighted [id number] 14:06-0500 Body weight 102.06 kg Arcenio Moreira AT [facility] Work Phone: NEGATED: Highlighted [id number] 14:06-0500 Body weight 102 kg Arcenio Moreira AT [facility] Work Phone: NEGATED: Highlighted [id number] 14:06-0500 BP Diastolic 68 mm[Hg] Arcenio Moreira AT [facility] Work Phone: NEGATED: Highlighted [id number] 14:06-0500 BP Systolic 124 mm[Hg] Arcenio Sitko AT [facility] Work Phone: NEGATED: Highlighted [id number] 14:06-0500 Height 151.13 cm Arcenio Moreira AT [facility] Work Phone: NEGATED: Highlighted [id number] 14:06-0500 Height 151 cm Arcenio Moreira AT [facility] Work Phone: NEGATED: Highlighted [id number] 14:06-0500 Pulse (Heart Rate) 101 /min Arcenio Moreira AT [facility] Work Phone: Encounters Encounter Date Encounter Type Care Provider Facility Start: 02-17-2025 ambulatory Donato COLVIN Fa cility:[facility] Start: 02-17-2025 Registered Referred Donato Sepulveda MD [facility] Start: 02-09-2025 ambulatory Donato Sepulveda OLS Fa cility:[facility] Start: 02-09-2025 Registered Referred Donato Sepulveda MD [facility] Start: 01-26-2025 End: 01-26-[address] 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 Donato Sepulveda MD Work Phone: [facility] Start: 01-12-2025 End: 01-12-[address] Donato Sepulveda MD -[facility] Work Phone: Start: 12-30-2024 ambulatory Donato Sepulveda Facilameena ty:[facility] Start: 12-30-2024 Registered Referred Donato Sepulveda MD [facility] Start: 12-29-2024 End: 12-29-[address] Donato Sepulveda MD Work Phone: [facility] Start: 12-29-2024 End: 12-29-2024 [facility]: 12-29-[facility]24 [facility] Start: 12-29-2024 End: 12-29-2024 [facility] Start: 12-08-2024 [facility] Start: 12-08-2024 End: 12-08-2024 ambulatory [facility] Facility:[facility] Start: 12-04-2024 End: 12-04-[address] Donato Sepulveda MD Work Phone: [facility] Start: 12-04-2024 End: 12-04-2024 [facility] Start: 11-17-2024 End: 11-17-[address] Donato Sepulveda MD Work Phone: [facility] Start: 11-17-2024 End: 11-17-2024 Departed Referred Donato Sepulveda MD [facility] Start: 11-17-2024 [facility] Start: 11-17-2024 End: 11-17-2024 [facility] Start: 11-10-2024 End: 11-10-[address] Armando Rich MD Work Phone: [facility] Start: 11-10-2024 End: 11-10-[address] Donato Sepulveda MD -[facility] Work Phone: Start: 10-21-2024 End: 10-21-[address] Donato Sepulveda MD Work Phone: [facility] Start: 10-21-2024 End: 10-21-2024 Patient encounter procedure Debora DOW [facility] Work Phone: Start: 10-20-2024 Non-patient / Non-visit Dr. Yadi Lam MD -[facility] Work Phone: Start: 10-19-2024 Non-patient / Non-visit Dr. Yadi Lam MD -[facility] Work Phone: Start: 10-18-2024 ambulatory Anali Coello Facility:[facility] Start: 10-18-2024 End: 10-20-2024 Evaluation and management of inpatient Dr. Anali Coello DO -[facility] Unit Work Phone: Start: 10-06-2024 ambulatory Donato COLVIN Fa cility:[facility] Start: 10-06-2024 Registered Referred Donato Sepulveda MD -[facility] Start: 09-15-2024 End: 09-15-[address] Donato Sepulveda MD Work Phone: -[facility] Start: 09-15-2024 End: 09-15-[address] Donato Sepulveda MD -[facility] Work Phone: Start: 09-08-2024 End: 09-08-[address] Basilio Flores MD Work Phone: [facility] Work Phone: Start: 09-08-2024 End: 09-08-2024 Departed Referred Donato Sepulveda MD -[facility] Start: 09-08-2024 [facility] Start: 09-08-2024 End: 09-08-2024 ambulatory Donato COLVIN Facility:[facility] Start: 08-25-2024 End: 08-25-[address] Basilio Flores MD Work Phone: [facility] Work Phone: Start: 08-25-2024 End: 08-25-2024 [facility] Start: 08-24-2024 End: 08-24-2024 Admission to same day surgery center Dr. Armando Rich MD -[facility] Start: 08-24-2024 End: 08-25-[address] Basilio Flores MD Work Phone: [facility] Work Phone: Start: 08-17-2024 End: 08-17-2024 ambulatory Deborapatrick Schneider Facility:[facility] Start: 08-17-2024 End: 08-17-2024 Patient encounter procedure Debora Schneider [facility] Work Phone: Start: 07-15-2024 End: 07-15-[address] Basilio Flores MD Work Phone: [facility] Work Phone: Start: 07-15-2024 End: 07-15-2024 [facility] Start: 07-14-2024 End: 07-14-[address] Donato Sepulveda MD -[facility] Work Phone: Start: 07-14-2024 End: 07-15-[address] Basilio Flores MD Work Phone: [facility] Work Phone: Start: 07-14-2024 End: 07-14-2024 [facility] Start: 07-14-2024 [facility] Start: 07-14-2024 End: 07-14-2024 ambulatory Basilio Flores Facility:[facility] Start: 06-26-2024 End: 06-26-2024 ambulatory Basilio Flores Facility:[facility] Start: 06-26-2024 End: 06-26-2024 Patient encounter procedure Debora Schneider [facility] Work Phone: Start: 06-15-2024 ambulatory Donato COLVIN Fa cility:[facility] Start: 06-15-2024 Registered Referred Donato Sepulveda MD [facility] Start: 06-09-2024 ambulatory Basilio Flores Facility: [facility] Start: 06-09-2024 Registered Referred Donato Sepulveda MD [facility] Start: 06-02-2024 End: 06-02-2024 Departed Referred Donato Sepulveda MD [facility] Start: 06-01-2024 End: 06-02-2024 ambulatory Basilio Flores Facility:[facility] Start: 06-01-2024 End: 06-01-2024 Patient encounter procedure Debora DOW -[facility] Work Phone: Start: 05-19-2024 End: 05-19-2024 ambulatory Basilio Flores Facility:[facility] Start: 05-19-2024 End: 05-19-[address] Donato Sepulveda MD -[facility] Work Phone: Start: 04-21-2024 ambulatory Basilio Flores Facility: [facility] Start: 04-21-2024 Registered Referred Donato Sepulveda MD [facility] Start: 04-07-2024 End: 04-07-2024 ambulatory Basilio Flores Facility:[facility] Start: 04-07-2024 End: 04-07-2024 ambulatory Basilio Flores Facility:[facility] Start: 03-17-2024 End: 03-17-2024 ambulatory Basilio Flores Facility:[facility] Start: 03-10-2024 End: 03-10-2024 ambulatory Basilio Flores Facility:[facility] Start: 08-06-2023 End: 08-06-[address] Basilio Flores Work Phone: [facility] Work Phone: Start: 08-06-2023 End: 08-06-[address] Basilio Flores Work Phone: [facility] Start: 06-11-2023 End: 06-11-[address] Basilio Flores Work Phone: [facility] Work Phone: Start: 06-11-2023 End: 06-11-[address] Basilio Flores Work Phone: [facility] Start: 06-08-2023 End: 06-08-2023 Emergency department patient [facility] Start: 06-05-2023 End: 06-05-[address] Basilio Flores Work Phone: [facility] Work Phone: Start: 06-05-2023 End: 06-05-2023 Emergency department patient [facility] Start: 05-28-2023 End: 05-28-[address] Basilio Flores Work Phone: [facility] Work Phone: Start: 05-15-2023 End: 05-15-[address] Basilio Flores Work Phone: [facility] Work Phone: Start: 04-24-2023 End: 04-24-[address] Basilio Flores Work Phone: [facility] Work Phone: Start: 04-23-2023 End: 04-23-[address] Basilio Flores Work Phone: [facility] Work Phone: Start: 04-23-2023 End: 04-23-[address] Basilio Flores Work Phone: [facility] Start: 04-23-[address] Basilio avendano Work Phone: [facility] Start: 04-19-2023 End: 04-19-[address] Basilio Flores Work Phone: [facility] Work Phone: Start: 04-19-2023 End: 04-19-[address] Basilio Flores Work Phone: [facility] Start: 04-19-[address] Basilio avendano Work Phone: [facility] Start: 04-09-2023 End: 04-09-[address] Basilio Flores Work Phone: [facility] Work Phone: Start: 04-09-2023 End: 04-09-[address] Basilio Flores Work Phone: [facility] Start: 03-26-2023 End: 03-26-[address] Basilio Flores Work Phone: [facility] Work Phone: Start: 03-13-2023 End: 03-13-[address] Basilio Flores Work Phone: [facility] Work Phone: Start: 03-12-2023 End: 03-12-[address] Basilio Flores Work Phone: [facility] Start: 03-07-2023 End: 03-07-[address] Basilio Flores Work Phone: [facility] Work Phone: Start: 02-05-2023 End: 02-05-[address] Basilio Flores Work Phone: [facility] Start: 02-04-2023 End: 02-04-[address] Basilio Flores Work Phone: [facility] Work Phone: Start: 01-30-2023 End: 01-30-[address] Basilio Flores Work Phone: [facility] Work Phone: Start: 01-22-2023 End: 01-22-[address] Basilio Flores Work Phone: [facility] Work Phone: Start: 01-17-2023 End: 01-17-[address] Basilio Flores Work Phone: [facility] Work Phone: Start: 01-01-2023 End: 01-01-[address] Basilio Flores Work Phone: [facility] Work Phone: Start: 12-07-2022 End: 12-07-[address] Basilio Flores Work Phone: [facility] Work Phone: Start: 12-07-2022 End: 12-07-[address] Basilio Flores Work Phone: [facility] Start: 12-04-2022 End: 12-04-[address] Basilio Flores Work Phone: [facility] Work Phone: Start: 12-04-2022 End: 12-04-[address] Basilio Flores Work Phone: [facility] Start: 12-04-[address] Basilio avendano Work Phone: [facility] Start: 11-21-2022 End: 11-21-[address] Basilio Flores Work Phone: [facility] Work Phone: Start: 11-21-2022 End: 11-21-[address] Basilio Flores Work Phone: [facility] Start: 11-21-[address] Basilio avendano Work Phone: [facility] Start: 11-20-2022 End: 11-20-[address] Basilio Flroes Work Phone: [facility] Work Phone: Start: 10-31-2022 End: 10-31-[address] Basilio Flores Work Phone: [facility] Work Phone: Start: 10-09-2022 End: 10-09-[address] Basilio Flores Work Phone: [facility] Work Phone: Start: 10-09-2022 End: 10-09-[address] Basilio Flores Work Phone: [facility] Start: 10-09-[address] Basilio avendano Work Phone: [facility] Start: 10-05-2022 End: 10-05-[address] Basilio Flores Work Phone: [facility] Work Phone: Start: 10-05-2022 End: 10-05-[address] Basilio Flores Work Phone: [facility] Start: 10-05-[address] Basilio avendano Work Phone: [facility] Start: 10-04-2022 End: 10-04-[address] Basilio Flores Work Phone: [facility] Start: 10-04-[address] Basilio avendano Work Phone: [facility] Start: 09-25-2022 End: 09-25-[address] Basilio Flores Work Phone: [facility] Work Phone: Start: 09-04-2022 End: 09-04-[address] Basilio Flores Work Phone: [facility] Work Phone: Start: 09-04-2022 End: 09-04-[address] Basilio Flores Work Phone: [facility] Start: 09-03-2022 End: 09-03-[address] Basilio Flores Work Phone: [facility] Work Phone: Start: 08-07-2022 End: 08-07-[address] Basilio Flores Work Phone: [facility] Work Phone: Start: 08-07-2022 End: 08-07-[address] Basilio Flores Work Phone: [facility] Start: 08-02-2022 End: 08-02-[address] Basilio Flores Work Phone: [facility] Start: 07-24-2022 End: 07-24-[address] Basilio Flores Work Phone: [facility] Start: 07-21-2022 End: 07-21-[address] Basilio Flores Work Phone: [facility] Start: 07-13-2022 End: 07-13-[address] Basilio Flores Work Phone: [facility] Start: 07-02-2022 End: 07-02-[address] Basilio Flores Work Phone: 0(494)514-820992 [place] [address] Start: 06-15-2022 End: 06-15-[address] Basilio Flores Work Phone: 3(775)484-125793 [address] Start: 06-12-2022 End: 06-12-[address] Basilio Flores Work Phone: 6(328)709-939792 [place] [address] Work Phone: Start: 06-12-2022 End: 06-12-[address] Basilio Flores Work Phone: 4(457)[phone] [address] Start: 05-29-2022 End: 05-29-[address] Basilio Flores Work Phone: [phone](391)078-391093 [address] Start: 04-17-2022 End: 04-17-[address] Basilio Flores Work Phone: 3(962)[phone] [place] [address] Start: 04-17-[address] Basilio avendano Work Phone: 1(035)[phone] [address] Start: 04-13-2022 End: 04-13-[address] Basilio Flores Work Phone: 5(145)[phone] [place] [address] Start: 04-13-[address] Basilio avendano Work Phone: [phone](164)[phone] [place] [address] Start: 04-10-2022 End: 04-10-[address] Basilio Flores Work Phone: 1([phone])[phone] [place] [address] Work Phone: Start: 04-10-2022 End: 04-10-[address] Basilio Flores Work Phone: [phone](068)[phone] [place] [address] Start: 04-05-2022 End: 04-05-[address] Basilio Flores Work Phone: [phone])[phone] [place] [address] Start: 03-27-2022 End: 03-27-[address] Basilio Flores Work Phone: [facility] Start: 03-06-2022 End: 03-06-[address] Basilio Flores Work Phone: [facility] Work Phone: Start: 03-06-2022 End: 03-06-[address] Basilio Flores Work Phone: [facility] Start: 02-06-2022 End: 02-06-[address] Basilio Flores Work Phone: [facility] Work Phone: Start: 02-06-2022 End: 02-06-[address] Basilio Flores Work Phone: [facility] Start: 12-05-2021 End: 12-05-[address] Basilio Flores Work Phone: [facility] Start: 12-04-2021 End: 12-04-[address] Basilio Flores Work Phone: [facility] Start: 11-14-2021 End: 11-14-[address] Basilio Flores Work Phone: [facility] Start: 10-17-2021 End: 10-17-[address] Basilio Flores Work Phone: [facility] Start: 10-17-[address] Basilio avendano Work Phone: [facility] Start: 10-05-2021 End: 10-05-[address] Basilio Flores Work Phone: [facility] Start: 09-12-2021 End: 09-12-[address] Basilio Flores Work Phone: [facility] Start: 09-05-2021 End: 09-05-[address] Basilio Flores Work Phone: [facility] Start: 08-08-2021 End: 08-08-2021 Departed Referred [facility] Start: 08-08-2021 Registered Referred [facility] Start: 07-12-2021 End: 07-12-2021 Departed Referred [facility] Start: 03-16-2019 End: 03-16-2019 Patient encounter procedure Rachael Newman MD Work Phone: [facility] Work Phone: Procedures Date Procedure Procedure Detail Performing Clinician Start: 02-09-2025 Vitamin D, 25-hydrox y measurement Dr. Donato Sepulveda MD Work Phone: Comment on above: Vitamin D StatusDefi ciency: <20 ng/mL (50nmol/L)Insufficiency: 20-30 ng/mL (50-75 nmol/L)Sufficiency: 30-100 ng/mL (75-250 nmol/L)Toxicity: >100 ng/mL (>250 nmol/L) Start: 12-29-2024 Vitamin D, 25-hydrox y measurement Dr. Donato Sepulveda MD Work Phone: Comment on above: Vitamin D StatusDefi ciency: <20 ng/mL (50nmol/L)Insufficiency: 20-30 ng/mL (50-75 nmol/L)Sufficiency: 30-100 ng/mL (75-250 nmol/L)Toxicity: >100 ng/mL (>250 nmol/L) Start: 11-17-2024 Vitamin D, 25-hydrox y measurement [...] Treatment Date Care Activity Detail Author Start: 02-17-2025 Registered Referred Registered Referred [facility] Start: 10-20-2024 Patient discharge [facility] Start: 10-19-2024 End: 10-19-2024 [facility] Start: 10-19-2024 Care regimes management [facility] Start: 10-19-2024 Notification of physician [facility] Start: 10-19-2024 Wound care [facility] Start: 10-19-2024 Care planning and problem solving actions [facility] Start: 10-18-2024 Following clinical pathway protocol [facility] Start: 10-18-2024 Application of ice collar, cap or bag [facility] Start: 10-18-2024 Assessment of risk of venous thromboembolism [facility] Start: 10-18-2024 Catheterization of vein [facility] Start: 10-18-2024 Consultation for treatment [facility] Start: 10-18-2024 Insertion of catheter into peripheral vein [facility] Start: 10-18-2024 Measuring intake and output [facility] Start: 10-18-2024 Oxygen therapy [facility] Start: 10-18-2024 Patient referral to dietitian [facility] Start: 10-18-2024 Providing care according to standard [facility] Start: 10-18-2024 Provision of activity privileges [facility] Start: 10-18-2024 Referral for physical therapy [facility] Start: 10-18-2024 Referral to occupational therapist [facility] Start: 10-18-2024 Referral to service [facility] Start: 10-18-2024 [facility] Start: 10-18-2024 Verification routine [facility] Start: 10-18-2024 Admission procedure [facility] Start: 10-18-2024 Hospital admission, emergency, from emergency room, medical nature [facility] Start: 10-18-2024 End: 10-18-2024 [facility] Start: 10-18-2024 End: 10-19-2024 [facility] Start: 10-18-2024 Bacteria identified in Blood by Culture Blood Culture [facility] Start: 10-18-2024 Bacteria identified in Urine by Culture Urine Culture [facility] Start: 10-18-2024 Consultation [facility] Start: 08-24-2024 Injection aa&/strd genicular nrv branches w/img NJX AA&/STRD GNCLR NRV BRNCH [facility] Start: 08-24-2024 Fluoroscopic guidance [facility] Start: 08-24-2024 Patient discharge [facility] Start: 06-08-2023 [facility] Start: 06-05-2023 Simple repair f/e/e/n/l/m 2.5cm/< RPR F/E/E/N/L/M 2.5 CM/< [facility] Start: 06-05-2023 [facility] Start: 03-16-2019 End: 03-16-2019 Appointment Appointment [facility] Work Phone: Patient Education [place] Work Phone: Patient referral [facility] Work Phone: Urine culture [facility] Immunizations Immunization Date Immunization Notes Care Provider Fa cility 06-05-2023 tetanus toxoid, redu lloyd diphtheria toxoid, and acellular pertussis vaccine, adsorbed Dr. Basilio Flores Work Phone: [facility] 02-23-2015 Influenza virus vaccine W [facility] Payers Date Payer Category Payer Medicare [id number] 2024 Self-pay [id number] 2024 Unknown [id number] Unknown [id number] Unknown [id number] 2.16.8 40.1.664324.3.579.2.462 Unknown [id number] 2.16.8 40.1.758133.3.579.2.462 Unknown [id number] 2.16.8 40.1.953145.3.579.2.462 Unknown [id number] 2.16.8 40.1.002132.3.579.2.462 Unknown [id number] 2.16.8 40.1.388214.3.579.2.462 Unknown [id number] 2.16.8 40.1.723468.3.579.2.462 Unknown [id number] 2.16.8 40.1.995680.3.579.2.462 Unknown [id number] 2.16.8 40.1.775051.3.579.2.462 Unknown [id number] 2.16.8 40.1.307623.3.579.2.462 Unknown [id number] 2.16.8 40.1.495957.3.579.2.462 Unknown [id number] 2.16.8 40.1.076719.3.579.2.462 Unknown [id number] 2.16.8 40.1.065192.3.579.2.462 Unknown [id number] 2.16.8 40.1.494256.3.579.2.462 Unknown [id number] 2.16.8 40.1.070848.3.579.2.462 Unknown [id number] 2.16.8 40.1.603714.3.579.2.462 Unknown [id number] 2.16.8 40.1.286910.3.579.2.462 Unknown [id number] 2.16.8 40.1.147174.3.579.2.462 Unknown [id number] 2.16.8 40.1.839076.3.579.2.462 Unknown [id number] 2.16.8 40.1.548421.3.579.2.462 Unknown [id number] 2.16.8 40.1.983958.3.579.2.462 Unknown [id number] 2.16.8 40.1.914560.3.579.2.462 Unknown [id number] 2.16.8 40.1.993308.3.579.2.462 Unknown [id number] 2.16.8 40.1.070269.3.579.2.462 Unknown [id number] 2.16.8 40.1.850418.3.579.2.462 Unknown [id number] 2.16.8 40.1.244657.3.579.2.462 Unknown [id number] 2.16.8 40.1.775194.3.579.2.462 Unknown [id number] 2.16.8 40.1.574725.3.579.2.462 Unknown [id number] 2.16.8 40.1.921678.3.579.2.462 Unknown [id number] 2.16.8 40.1.870072.3.579.2.462 Unknown [id number] 2.16.8 40.1.612854.3.579.2.462 Unknown [id number] 2.16.8 40.1.478494.3.579.2.462 Unknown [id number] 2.16.8 40.1.921187.3.579.2.462 Unknown [id number] 2.16.8 40.1.848109.3.579.2.462 Unknown [id number] 2.16.8 40.1.417215.3.579.2.462 Unknown [id number] 2.16.8 40.1.573874.3.579.2.462 Social History Date Type Detail Facility Start: 12-16-2019 End: 06-08-2023 Tobacco smoking status NHIS Unknown if ever smoked [facility] Start: 12-16-2019 None [place] Start: 12-16-2019 Care Home [place] Start: 12-16-2019 Non-smoker [place] Start: 1940 Sex Assigned At Female W [facility] Start: 06-08-2023 End: 02-19-2025 Tobacco smoking status NHIS Never smoked tobacco (finding) [facility] Start: 08-06-2024 End: 08-24-2024 Sex Female (finding) [facility] Sex Female [facility] NEGATED: Highlighted rowStart: 03-16-2019 End: 03-16-2019 Alcohol use Alcohol use [facility] Work Phone: NEGATED: Highlighted rowStart: 03-16-2019 End: 03-16-2019 Details of drug misuse behavior Details of drug misuse behavior [facility] Work Phone: NEGATED: Highlighted rowStart: 03-16-2019 End: 03-16-2019 Assertion Never smoker [facility] Work Phone: Goals Date Patient Goal Desired Activity /State Functional Status Date Assessment Result Facility 10-20-2024 Functional status Patient Activi ty Bathroom Privilege [facility] Work Phone: 10-20-2024 Functional status Activity Abili ty With Assist of 1 [facility] Work Phone: 10-20-2024 Functional status Standard Walker [facility] Work Phone: Mental Status Date Assessment Result Facility 10-20-2024 Cognitive function Voice/Name [facility] Work Phone: 10-18-2024 Cognitive function Level Of Cons ciousness Awake;Appropriate;Follows Commands;Disoriented [facility] Work Phone: 08-24-2024 Cognitive function Voice/Name [facility] Work Phone: Clinical Notes 06-05-2023 to 10-20-2024 Note Date & Type Note Facility 10-20-2024 Discharge summary Note Date/Time October 20, 2024 3:53pm [facility] Medical Records Department [address] [place] [address] Discharge Summary 10/20/24 1535 MR#: [id number] Acct: [id number] Name: JUSTUS CHINCHILLA Rep #:[id number] : 1940 84 From: Ángel cuenca MD PCP: Dr. Donato Sepulveda MD Status:A DM IN Location: [facility] [id number] Providers Date of Admission: 10/18/24 Primary Care Physician: Dr. Donato Sepulveda MD Consultations 10/18/24 22:14 Consult: Onc/Wound/wire bound box machine operator Routine Comment: Reason For Visit: SEVERE HYPOGLYCEMIA/UTI [...] who presented to the emergency department at [facility] on 10/18/2024 with chief complaint of [...] weakness and falls?84-year-old female presenting from the group home was found to have a blood sugar [...] does not like the food at the group home apparently. I recommend holding all of her [...] would like to go back to the group home if possible today. 2. Essential hypertension, type [...] Admission Admit Date/Time: 10/18/24 21:38 Attending Provider: Ágnel Lam Primary Care Provider: Donato Sepulveda Consulting [...] in before D/C Order can be placed): Snf Facility Charges/Coding Visit Charges Inpatient E&M: 78559 Disch Hosp >30min 10/20/24 1553 <Electronically signed by Ángel Lam MD> Cosigner Signature (if applicable): CC: Dr. Donato Sepulveda MD; Dr. Ángel Lam MD~ Signed [facility] Work Phone: 1(571) 751-238506-17-2025 Discharge summary [facility] Medical Records Department [address] [place] [address] Discharge Summary 10/20/24 1535 MR#: [id number] Acct: [id number] Name: JUSTUS CHINCHILLA Rep #:[id number] : 1940 84 From: Ángel cuenca MD PCP: Dr. Donato Sepulveda MD Status:A DM IN [facility] Prov[facility] Date of Admission: 10/18/24 Primary Care Physician: Dr. Donato Sepulveda MD Consultations 10/18/24 22:14 Consult: Onc/Wound/wire bound box machine operator Routine Comment: Reason For Visit: SEVERE HYPOGLYCEMIA/UTI [...] who presented to the emergency department at [facility] on 10/18/2024 with chief complaint of [...] weakness and falls?84-year-old female presenting from the group home was found to have a blood sugar [...] with holding all of her home hypoglycemics abdoul has poor p.o. intake at baseline because she does not like the food at the group home apparently. I recommend holding all of her [...] would like to go back to the group home if possible today. 2. Essential hypertension, type [...] in before D/C Order can be placed): Snf Facility Charges/Coding Visit Charges Inpatient E&M: 63703 Disch Hosp >30min 10/20/24 1553 Cosigner Signature (if applicable): CC: Dr. Donato Sepulveda MD; Dr. Ángel Lam MD~ [facility]06-17-2025 [facility] Medical Records Department [address] [place] [address] Discharge Summary 10/20/24 1535 MR#: [id number] Acct: [id number] Name: JUSTUS CHINCHILLA Rep #: [id number] : 1940 84 From: Ángel Lam MD PCP: Dr. Donato Sepulveda MD Status:ADM IN Location: [facility] [id number] Providers Date of Admission: 10/18/24 Primary Care Physician: Dr. Donato Sepulveda MD Consultations 10/18/24 22:14 Consult: Onc/Wound/wire bound box machine operator Routine Comment: Reason For Visit: SEVERE HYPOGLYCEMIA/UTI [...] who presented to the emergency department at [facility] on 10/18/2024 with chief complaint of [...] sugar improved her mentation (more content not included)...[facility]06-17-2025 Consult note Author Perla Jaimes [facility] Note Date/Time October 20, 2024 11:[address] [facility] Medical Records Department [address] [place] [address] Counseling Note - Pharmacy 10/20/24 1148 MR#: [id number] Acct: [id number] Name: JUSTUS CHINCHILLA Rep #:[id number] : 1940 84 From: Perla Jaimes PCP: Dr. Donato Sepulveda MD Status:A DM IN Y Location: [place] [address] Pharmacy [place] Med Reconciliation Pharmacy Service has performed discharge [...] Signature (if applicable): Date CC: ~ Signed [facility] Work Phone: 1(830) 437-948006-17-2025 Discharge summary Author Ángel Lam [facility] Note Date/Time October 20, 2024 11:2 0am [facility] Medical Records Department [address] [place] [address] Transfer to [facility] MR#: [id number] Acct: [id number] Name: JUSTUS CHINCHILLA Rep #:[id number] : 1940 84 From: Ángel cuenca MD PCP: Dr. Donato Sepulveda MD Status:A DM IN Certification of patient admission REQUIRED AT TIME OF ADMISSION. I CERTIFY THAT POST-HOSPITAL ECF SERVICES ARE REQUIRED TO BE GIVEN ON AN IN-PATIENT BASIS BECAUSE OF THE ABOVE NAMED PATIENT'S NEED FOR HALF-WAY CARE ON A CONTINUING BASIS FOR THE CONDITION(S) FOR WHICH HE/SHE WAS RECEIVING IN-PATIENT HOSPITAL SERVICES PRIOR TO HIS/HER TRANSFER TO THE [facility]. 10/20/24 1120<Electronically signed by Ángel Lam MD> [...] her lack of p.o. intake at the group home ? She did have falls at home the group home because of this hypoglycemia with some abrasions [...] in before D/C Order can be placed): Snf Facility 10/20/24 1120 <Electronically signed by Ángel Lam MD> Cosigner Signature (if applicable): CC: Dr. Donato Sepulveda MD; Dr. Anali Coello, DO ~ [facility] Work Phone: 1(290) 463-140606-17-2025 Consult note [facility] Medical Records Department [address] [place] [address] Counseling Note - Pharmacy 10/20/24 1148 MR#: [id number] Acct: [id number] Name: JUSTUS CHINCHILLA Rep #:[id number] : 1940 84 From: Perla Jaimes PCP: Dr. Donato Sepulveda MD Status:A DM IN Y Location: [place] [id number] [place] Med Reconciliation Pharmacy Service has performed discharge [...] Signature (if applicable): Date CC: ~ Signed [facility]06-17-2025 Discharge summary [facility] Medical Records Department [address] [place] [address] Transfer to [facility] MR#: [id number] Acct: [id number] Name: JUSTUS CIHNCHILLA Rep #:[id number] : 1940 84 From: Ángel cuenca MD PCP: Dr. Donato Sepulveda MD Status:A DM IN Certification of patient admission REQUIRED AT TIME OF ADMISSION. I CERTIFY THAT POST-HOSPITAL ECF SERVICES ARE REQUIRED TO BE GIVEN ON AN IN-PATIENT BASIS BECAUSE OF THE ABOVE NAMED PATIENT'S NEED FOR HALF-WAY CARE ON A CONTINUING BASIS FOR THE CONDITION(S) FOR WHICH HE/SHE WAS RECEIVING IN-PATIENT HOSPITAL SERVICES PRIOR TO HIS/HER TRANSFER TO [facility]. 10/20/24 1120 Diet Diet Order/Speech Therapy: INPATIENT [...] her lack of p.o. intake at the group home ? She did have falls at home the group home because of this hypoglycemia with some abrasions [...] in before D/C Order can be placed): Snf Facility 10/20/24 1120 Cosigner Signature (if applicable): CC: Dr. Donato Sepulveda MD; Dr. Anali Coello, DO [facility]06-16-2025 Progress note Author Ángel Lam [facility] Note Date/Time October 19, 2024 7:02 pm [facility] Medical Records Department [address] [place] [address] Progress Note - Hospitalist 10/19/24 1852 MR#: [id number] Acct: [id number] Name: JUSTUS CHINCHILLA Rep #:[id number] : 1940 84 From: Ángel cuenca MD PCP: Dr. 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 Mild anterior frontal scalp swelling. No acute calvarial defect. Reading Location: [facility] Physical Exam Narrative General: Alert, Oriented x3, [...] her lack of p.o. intake at the group home ? She did have falls at home the group home because of this hypoglycemia with some abrasions [...] DVT: Lovenox Charges/Coding Visit Charges Inpatient E&M: 12140 Subs Hosp L2 10/19/241901 <Electronically signed by Ángel Lam MD> Cosigner Signature (if applicable): CC: ~ Signed [facility] Work Phone: 1(507) 645-576106-16-2025 Progress note [facility] Medical Records Department [address] [place] [address] Progress Note - Hospitalist [id number] MR#: [id number] Acct: [id number] Name: JUSTUS CHINCHILLA Rep #:[id number] : 1940 84 From: Ángel cuenca MD PCP: Dr. Donato Sepulveda MD Status:A DM IN Location: [place] [address] Subjective Subjective She says that she does not feel great and would prefer to go back to the [facility] tomorrow Objective Data Objective Data Vital [...] Clarity Clear, Urine pH 6.5, Ur Specific Gilchrist 1.015, Urine Protein 30 H, Urine Glucose [...] % (Auto) 70.0, Lymph % (Auto) 21.5, Hill% (Auto) 7.3, Eos % (Auto) 0.6, Baso [...] Catheterized Urine Culture - Preliminary GNR lactose associate software development engineer 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 Mild anterior frontal scalp swelling. No acute calvarial defect. Reading Location: [facility] Physical Exam Narrative General: Alert, Oriented x3, [...] her lack of p.o. intake at the group home ? She did have falls at home the group home because of this hypoglycemia with some abrasions [...] DVT: Lovenox Charges/Coding Visit Charges Inpatient E&M: 31646 Subs Hosp L2 10/19/24 1902 Cosigner Signature (if applicable): CC: ~ Signed [facility]06-16-2025 Discharge summary Author Zoltan Garcia [facility] Note Date/Time October 19, 2024 12:1 3am [facility] Medical Records Department [address] [place] [address] Emergency Department Summary 10/18/24 MR#: [id number] Acct: [id number] Name: JUSTUS CHINCHILLA Rep #:[id number] : 1940 84 From: Zoltan Gomez PCP: Dr. Donato Sepulveda MD Status:A DM IN Location: [place] [address] HPI HPI - Fall History of Present [...] takes oral hypoglycemicsas well as insulin. [facility] Medical History (Updated 10/18/24 @ [...] motor deficits and no sensory deficits noted [place] Coma Scale: document GCS findings Spontaneous Obeys [...] 89.4 H Lymph % (Auto) 4.7 L Hill % (Auto) 4.8 Eos % (Auto) 0.1 [...] Color Urine Clarity Urine pH Ur Specific Gilchrist Urine Protein Urine Glucose (UA) Urine Ketones [...] (Auto) Neut % (Auto) Lymph % (Auto) Hill % (Auto) Eos % (Auto) Baso % [...] Clarity Clear Urine pH 6.5 Ur Specific Gilchrist 1.015 Urine Protein 30 H Urine Glucose [...] (Auto) Neut % (Auto) Lymph % (Auto) Hill % (Auto) Eos % (Auto) Baso % [...] Color Urine Clarity Urine pH Ur Specific Gilchrist Urine Protein Urine Glucose (UA) Urine Ketones Urine Occult Blood Urine Nitrite Urine Bilirubin Urine Urobilinogen Ur Leukocyte Esterase Urine RBC Urine WBC Ur Squamous Epith Cells Urine Bacteria Urine Mucus POC Glucose 129 H Radiography Diagnostic Testing: Clinical Impression(s) from Imaging Studies Brain CT 10/18/24 17:01 IMPRESSION: No acute intracranial process. Mild anterior frontal scalp swelling. No acute calvarial defect. Reading Location: [facility] Management Discussion w/another healthcare provider: Hospitalist (Dr. Coello) Discharge Plan Dx/Rx/DC Orders Clinical Impression: Traumatic hematoma of forehead, Abrasion of forehead, Fall, Diabetic hypoglycemia, Skin tear of forearm without complication, Acute UTI Disposition Disposition: [facility] Discharge Date/Time: 10/18/24 22:04 What to do if you have Problems For any increased pain, shortness of breath, bleeding, nausea or vomiting, chestpain, or any unexpected problems, contact your Primary Care Provider. Call [facility] ([phone]) or report to the closest Emergency Room. Call 911 if necessary. 10/19/24 0013 <Electronically signed by Zoltan Garcia DO> Cosigner Signature (if applicable): CC: Dr. Donato Sepulveda MD ~ Signed [facility] Work Phone: 1(140) 118-828206-16-2025 History and physical note Author Anali Coello [facility] Note Date/Time October 18, 2024 10:2 4pm [facility] Medical Records Department [address] [place] [address] H&P Exam - Hospitalist 10/18/242107 MR#: [id number] Acct: [id number] Name: JUSTUS CHINCHILLA Rep #:[id number] : 1940 84 From: Anali Coello DO PCP: Dr. Donato Sepulveda MD Status:A DM IN Location: [facility] [id number]- 1 HPI - General General Date of Admission: 10/18/24 Date of Service: 10/18/24 Chief Complaint: Fall/altered mental status HPI Narrative JUSTUS CHINCHILLA, is a 84 F who presented to the emergency department at [facility] on 10/18/2024 with chief complaint of [...] (Auto) 89.4 H, Lymph % (Auto) 4.7L, Hill % (Auto) 4.8, Eos % (Auto) 0.1, [...] Clarity Clear, Urine pH 6.5, Ur Specific Gilchrist 1.015, Urine Protein 30 H, Urine Glucose [...] swelling. No acute calvarial defect. Reading Location: [id number] Assessment & Plan Assessment/Plan (1) Skin tear [...] work consultation - Patient currently resides [facility] - Hold all home antidiabetic agents - [...] palliative care Charges/Coding Visit Charges Inpatient E&M: 64736 Init Hosp L2 10/18/24 2227 <Electronically signed by Anali Coello DO> Cosigner Signature (if applicable): CC: Dr. Donato Sepulveda MD; Dr. Anali Coello DO~ Signed [facility] Work Phone: 1(657) 691-412606-16-2025 Discharge summary [facility] Medical Records Department [address] [place] [address] Emergency Department Summary 10/18/24 MR#: [id number] Acct: [id number] Name: JUSTUS CHINCHILLA Rep #:[id number] : 1940 84 From: Zoltan Gomez PCP: Dr. Donato Sepulveda MD Status:A DM IN Location: [facility] [id number]- 1 HPI HPI - Fall History of [...] takes oral hypoglycemicsas well as insulin. [facility] Medical History (Updated 10/18/24 @ [...] motor deficits and no sensory deficits noted [place] Coma Scale: document GCS findings Spontaneous Obeys [...] 89.4 H Lymph % (Auto) 4.7 L Hill % (Auto) 4.8 Eos % (Auto) 0.1 [...] Color Urine Clarity Urine pH Ur Specific Gilchrist Urine Protein Urine Glucose (UA) Urine Ketones [...] (Auto) Neut % (Auto) Lymph % (Auto) Hill % (Auto) Eos % (Auto) Baso % [...] Clarity Clear Urine pH 6.5 Ur Specific Gilchrist 1.015 Urine Protein 30 H Urine Glucose [...] (Auto) Neut % (Auto) Lymph % (Auto) Hill % (Auto) Eos % (Auto) Baso % [...] Color Urine Clarity Urine pH Ur Specific Gilchrist Urine Protein Urine Glucose (UA) Urine Ketones Urine Occult Blood Urine Nitrite Urine Bilirubin Urine Urobilinogen Ur Leukocyte Esterase Urine RBC Urine WBC Ur Squamous Epith Cells Urine Bacteria Urine Mucus POC Glucose 129 H Radiography Diagnostic Testing: Clinical Impression(s) from Imaging Studies Brain CT 10/18/24 17:01 IMPRESSION: No acute intracranial process. Mild anterior frontal scalp swelling. No acute calvarial defect. Reading Location: [facility] Management Discussion w/another healthcare provider: Hospitalist (Dr. Coello) Discharge Plan Dx/Rx/DC Orders Clinical Impression: Traumatic hematoma of forehead, Abrasion of forehead, Fall, Diabetic hypoglycemia, Skin tear of forearm without complication, Acute UTI Disposition Disposition: [facility] Discharge Date/Time: 10/18/24 22:04 What to do if you have Problems For any increased pain, shortness of breath, bleeding, nausea or vomiting, chestpain, or any unexpected problems, contact your Primary Care Provider. Call [facility] ([phone]) or report tothe closest Emergency Room. Call 911 if necessary. 10/19/24 0013 Cosigner Signature (if applicable): CC: Dr. Donato Sepulveda MD ~ Signed [facility]06-15-2025 Evaluation note* Diagnosis Onset Date Resolution Status Admit Date Abrasion of forehead acute October 18, 2024 9:38pm Acute UTI acute October 18 9:38pm Diabetic hypoglycemia acute Oct 9:38pm Fall acute October 18 9:38pm Skin tear of forearm without complication acute October 18, 2024 9:38pm Traumatic hematoma of forehead acute October 18, 2024 9:38pm [facility] Work Phone: 1(349) 565-173706-15-2025 Evaluation note* Diagnosis Onset Date Resolution Status Admit Date Abrasion of forehead acute October 18, 2024 9:38pm Diabetic hypoglycemia acute Oct 9:38pm Fall acute October 18 9:38pm Skin tear of forearm without complication acute October 18, 2024 9:38pm Traumatic hematoma of forehead acute October 18, 2024 9:38pm Acute UTI resolved October 18 9:38pm [facility][1] Services Work Phone: 1(546) 593-412106-15-2025 History and physical note [facility] Medical Records Department [address] [place] [id number] H&P Exam - Hospitalist 10/18/242107 MR#: [id number] Acct: [id number] Name: JUSTUS CHINCHILLA Rep #:[id number] : 1940 84 From: Anali Coello DO PCP: Dr. Donato Sepulveda MD Status:A DM IN Location: [facility] [id number] HPI - General General Date of Admission: 10/18/24 Date of Service: 10/18/24 Chief Complaint: Fall/altered mental status HPI Narrative JUSTUS CHINCHILLA, is a 84 F who presented to the emergency department at [facility] on 10/18/2024 with chief complaint of [...] per family and seems to be at [facility] at the time of my admission. She [...] tablet 325 mg PO BID CHRONIC PAIN 05/18/18 04/21/25 History dapagliflozin propanediol 10 mg 10 mg [...] (Auto) 89.4 H, Lymph % (Auto) 4.7L, Hill % (Auto) 4.8, Eos % (Auto) 0.1, [...] Clarity Clear, Urine pH 6.5, Ur Specific Gilchrist 1.015, Urine Protein 30 H, Urine Glucose [...] swelling. No acute calvarial defect. Reading Location: [facility] Assessment & Plan Assessment/Plan (1) Skin tear of forearm without complication: (2) Diabetic hypoglycemia: (3) Fall: (4) Traumatic hematoma of forehead: (5) Abrasion of forehead: PLAN: Plan Altered mental status secondary to severe hypoglycemia - Blood sugar on [facility] at presentation was 19 - Dextrose drip [...] work consultation - Patient [facility] - Hold all home antidiabetic agents - [...] palliative care Charges/Coding Visit Charges Inpatient E&M: 18200 Init Hosp L2 10/18/24 2224 Cosigner Signature (if applicable): CC: Dr. Donato Sepulveda MD; Dr. Anali Coello DO~ Signed [facility]06-15-2025 Radiology Diagnostic study note [facility] Imaging Services [address] [place] [address] Brain/Head without Contrast MR#: [id number] Acct: [id number] Name: JUSTUS CHINCHILLA Rep #: [id number] : 1940 F 84 From: Debby Contreras MD PCP: Dr. Donato Sepulveda MD Status: R EG ER Study:Brain/Head without Contrast Date of Exa m: 10/18/24 Exam# [id number] Ordering Dr: Parminder Garcia DO PROCEDURE: BRAIN/HEAD [...] hydrocephalus or significant midline shift. There is zgdv-yo-jtnrqoof chronic microvascular ischemic changes and jzhm-xg-kpjzcker parenchymal volume loss. No acute, depressed calvarial fractures. Mild anterior frontal scalp swelling. Bilateral lens surgeries. CT/Brain/Head without Contrast IMPRESSION: No acute intracranial process. Mild anterior frontal scalp swelling. No acute calvarial defect. Reading Location: [facility] CC: Dr. Zoltan Garcia DO; Dr. Donato Sepulveda MD ~ Wood Crafter: Signed [facility]04-21-2025 Procedure note [facility] Medical Records Department [address] [place] [address] Operative Report 08/24/24 0932 MR#: [id number] Acct: [id number] Name: JUSTUS CHINCHILLA Rep #:[id number] : 1940 84 From: Armando Rich MD PCP: Dr. Donato Sepulveda MD Status:R [facility] Location: [place] [address] Operative Report (Standard) Operative Information Date of Procedure: 08/24/24 Pre-Operative Diagnosis: Osteoarthritis of the right knee, chronic postoperativeknee pain Post-Operative Diagnosis: Osteoarthritis of the right knee, chronic postoperative knee pain Surgery/Procedure Performed: Right knee superior medial/superior lateral/inferior medial genicular nerves steroid injection under fluoroscopic guidance green marketing analyst: No Type of Anesthesia: Local RN Documented [...] Sepulveda MD; Dr. Armando Rich MD~ Signed [facility]01-31-2024 Discharge summary Author [facility] June 05, 2023 7:54am Note Date/Time June 05, 2023 4 :38am [facility] Medical Records Department [address] [place] [address] Emergency Department Summary 06/05/23 MR#: [id number] Acct: [id number] Name: JUSTUS CHINCHILLA Rep #:[id number] : 1940 82 From: Colleen Gomez PCP: Dr. Basilio Flores MD Status:REG ER Location: ED HPI History of Present Illness Chief Complaint: Head Injury Informant: patient Narrative Narrative: Patient is an 82-year-old female presenting from [facility] after she injured her head. Patient [...] Is not on any blood thinners. Per group home report patient was in the dining room at the table doing her puzzles which is her typical activity. Unclear if there was loss of consciousness. Was sent for evaluation of injuries. Tetanus Immunization: Unknown [facility] Medical History Anxiety and depression Arthritis Asthma [...] her baseline. No focal neurologic deficits appreciated [place] Coma Scale: document GCS findings Spontaneous Obeys [...] Family Additional record(s) reviewed:: Prior outpatient record (group home paperwork ) Lab Data Attestation: I reviewed [...] 76.3 H Lymph % (Auto) 13.6 L Hill % (Auto) 7.2 Eos % (Auto) 2.0 [...] Sl. Cloudy Urine pH 6.0 Ur Specific Gilchrist 1.015 Urine Protein 15 H Urine Glucose [...] your Primary Care Provider. Call [facility] ([phone]) or report to the closest Emergency Room. Call 911 if necessary. 06/05/23 0757 <Electronically signed by Colleen Walker DO> Cosigner Signature (if applicable): CC: Dr. Basilio Flores MD ~ Signed [facility] Work Phone: Evaluation noteNo assessment information available [facility] Work Phone: Evaluation note* Diagnosis Onset Date Resolution Status Admit Date Abrasion of forehead acute October 18, 2024 9:38pm Acute UTI acute October 18 9:38pm Diabetic hypoglycemia acute Oct 9:38pm Fall acute October 18 9:38pm Skin tear of forearm without complication acute October 18, 2024 9:38pm Traumatic hematoma of forehead acute October 18, 2024 9:38pm [facility] Work Phone: Hospital Discharge instructions Additional Instructions Lab work including CBC, BMP, urinalysis and CT of the head, cervical spine as well as x-ray of the right elbow do not show any acute injury or abnormalities. The cause of Justus's frequent falls is not clear however at this time I do not think she requires admission to the hospital.[facility] Work Phone: Reason for referral (narrative)No reason for referral information available[facility] Work Phone: Chief Complaint Chief Complaint [...] Yes December 15 0 6:54pm Power of Senior Technologist Yes December 15 6:54pm Advance Directive Response Recorded Date/ Time Advance Directives Yes October 13 12:44pm Living Will Yes December 15 0 5:54pm Power of Senior Technologist Yes December 15 5:54pm Advance Directive Response Recorded Date/ Time Advance Directives Yes March 07, 2023 11:00am Living Will Yes March 07 11:00am Power of Senior Technologist Yes March 07, 2023 11:00am Advance Directive Response Recorded Date/ Time Name of Medical Power of Senior Technologist ABEBE VELEZ June 05, 2023 3:45am Advance Directives Yes March 07, 2023 11:00am Living Will Yes June 05 3:45am Power of Senior Technologist Yes June 05, 2023 3:45am Advance Directive Response Recorded Date/ Time Name of Medical Power of Senior Technologist ABEBE VELEZ June 05, 2023 3:45am Advance Directives Yes March 07, 2023 11:00am Living Will No June 08 8:10am Power of Senior Technologist No June 08, 2023 8:10am Advance Directive Response Recorded Date/ Time Name of Medical Power of Senior Technologist ABEBE VELEZ June 05, 2023 4:45am Advance Directives Yes March 07, 2023 12:00pm Living Will No June 08 9:10am Power of Senior Technologist No June 08, 2023 9:10am Advance Directive Response Recorded Date/ Time Advance Directives Yes March 07, 2023 12:00pm Advance Directive Response Recorded Date/ Time Do you have a Healthcare Power of Senior Technologist? Yes October 18, 2024 4:46pm Advance Directives Yes March 07, 2023 12:00pm Advance Directive Response Recorded Date/ Time Do you have a Healthcare Pow er of Senior Technologist? Yes October 18, 2024 10:15pm Name of Medical Power of Senior Technologist Ina Jaimes October 18, 2024 10:15pm Advance Directives Yes March 07, 2023 12:00pm Advance Directive Response Recorded Date/ Time Advance Directives Yes February 19, 2025 9:44am Assessments There may be information available, but [...] Complaint and Reason for Visit Chief Complaint HALF-WAY LAB WOR K HALF-WAY PATIENT Chief Complaint HALF-WAY LAB WOR K HALF-WAY PATIENT MONTHLY EXAM Chief Complaint HALF-WAY LAB WOR K HALF-WAY PATIENT MONTHLY EXAM LABWORK Chief Complaint HALF-WAY PATIENT MONTHLY EXAM LABWORK Chief Complaint MONTHLY EXAM LABWORK HALF-WAY LABWORK HALF-WAY LABWORK MONTHLY EXAM HALF-WAY LABWORK Chief Complaint HALF-WAY LABWORK MONTHLY EXAM HALF-WAY LABWORK HALF-WAY LABWORK Chief Complaint MONTHLY EXAM HALF-WAY LABWORK HALF-WAY LABWORK HALF-WAY LABWORK Chief Complaint HALF-WAY LABWORK HALF-WAY LABWORK NEW SYMPTOMS/CONCERNS ACUTE CARE VISIT HALF-WAY LAB WORK HALF-WAY LAB WORK Chief Complaint HALF-WAY LABWORK NEW SYMPTOMS/CONCERNS ACUTE CARE VISIT HALF-WAY LAB WORK HALF-WAY LABWORK HALF-WAY LAB WORK MONTHLY EXAM HALF-WAY LABWORK NEW PROBLEM/CONCERN Chief Complaint MONTHLY EXAM HALF-WAY LABWORK NEW PROBLEM/CONCERN NEW PROBLEM NEW PROBLEM/CONCERN NEW PROBLEM NEW PROBLEM NEW PROBLEM HALF-WAY LABWORK Chief Complaint MONTHLY EXAM HALF-WAY LABWORK NEW PROBLEM/CONCERN NEW PROBLEM NEW PROBLEM/CONCERN NEW PROBLEM NEW PROBLEM NEW PROBLEM HALF-WAY LABWORK HALF-WAY LABWORK Chief Complaint NEW CONCERN HALF-WAY LABWORK MONTHLY EXAM HALF-WAY LAB WORK HALF-WAY LABWORK HALF-WAY LAB WORK MONTHLY EXAM MONTHLY EXAM HALF-WAY LAB WORK Chief Complaint NEW CONCERN HALF-WAY LABWORK MONTHLY EXAM HALF-WAY LAB WORK HALF-WAY LABWORK HALF-WAY LAB WORK MONTHLY EXAM MONTHLY EXAM HALF-WAY LAB WORK HALF-WAY LAB WORK Chief Complaint NEW CONCERN NEW CONCERN MONTHLY EXAM NEW CONCERN NEW CONCERN HALF-WAY LAB WORK FOLLOW UP HALF-WAY LAB WORK ACUTE CARE MONTHLY EXAM HALF-WAY LAB WORK Chief Complaint NEW CONCERN MONTHLY EXAM NEW CONCERN NEW CONCERN HALF-WAY LAB WORK FOLLOW UP HALF-WAY LAB WORK ACUTE CARE MONTHLY EXAM HALF-WAY LAB WORK HALF-WAY LABWORK HALF-WAY LABWORK Chief Complaint HALF-WAY LAB WOR K FOLLOW UP HALF-WAY LAB WORK ACUTE CARE MONTHLY EXAM HALF-WAY LAB WORK HALF-WAY LABWORK HALF-WAY LABWORK MONTHLY EXAM SEEING EYE DOG TRAINER HEAD INJURY Chief Complaint FOLLOW UP HALF-WAY LAB WORK ACUTE CARE MONTHLY EXAM HALF-WAY LAB WORK HALF-WAY LABWORK HALF-WAY LABWORK MONTHLY EXAM SEEING EYE DOG TRAINER NEW CONCERN MONTHLY EXAM - MD HEAD INJURY NEW CONCERN fall LABWORK Chief Complaint HALF-WAY LABWORK HALF-WAY LABWORK MONTHLY EXAM SEEING EYE DOG TRAINER NEW CONCERN MONTHLY EXAM - MD HEAD INJURY NEW CONCERN fall LABWORK HALF-WAY LAB WORK Chief Complaint Admit Date HALF-WAY LAB WORK April 21 5:00am MONTHLY EXAM May 19, 2024 4 :53pm NEW CONCERN June 01, 2024 5 :22pm HALF-WAY LAB WORK June 02, 2024 5:00am HALF-WAY LAB WORK June 09, 2024 5:00am HALF-WAY LAB WORK June 15 3:15pm NEW CONCERN June 26, 2024 5:54pm HALF-WAY LAB WORK July 14, 2024 4 :00am HALF-WAY LAB WORK July 15, 2024 5 :00am Chief Complaint Admit Date HALF-WAY LAB WORK April 21 5:00am MONTHLY EXAM May 19, 2024 4 :53pm NEW CONCERN June 01, 2024 5 :22pm HALF-WAY LAB WORK June 02, 2024 5:00am HALF-WAY LAB WORK June 09, 2024 5:00am HALF-WAY LAB WORK June 15 3:15pm NEW CONCERN June 26, 2024 5:54pm HALF-WAY LAB WORK July 14, 2024 4 :00am MONTHLY EXAM July 14, 2024 4:0 5pm HALF-WAY LAB WORK July 15, 2024 5 :00am Chief Complaint Admit Date MONTHLY EXAM May 19, 2024 4 :53pm NEW CONCERN June 01, 2024 5 :22pm HALF-WAY LAB WORK June 02, 2024 5:00am HALF-WAY LAB WORK June 09, 2024 5:00am HALF-WAY LAB WORK June 15 3:15pm NEW CONCERN June 26, 2024 5:54pm HALF-WAY LAB WORK July 14, 2024 4 :00am MONTHLY EXAM July 14, 2024 4:0 5pm HALF-WAY LAB WORK July 15, 2024 5 :00am Chief Complaint Admit Date HALF-WAY LAB WORK June 09, 2024 5:00am HALF-WAY LAB WORK June 15 3:15pm NEW CONCERN June 26, 2024 5:54pm HALF-WAY LAB WORK July 14, 2024 4 :00am MONTHLY EXAM July 14, 2024 4:0 5pm HALF-WAY LAB WORK July 15, 2024 5 :00am MONTHLY EXAM August 17, 2024 4:4 9pm HALF-WAY LAB WORK August 25, 2024 4 :00am Chief Complaint Admit Date HALF-WAY LAB WORK June 15 3:15pm NEW CONCERN June 26, 2024 5:54pm HALF-WAY LAB WORK July 14, 2024 4 :00am MONTHLY EXAM July 14, 2024 4:0 5pm HALF-WAY LAB WORK July 15, 2024 5 :00am MONTHLY EXAM August 17, 2024 4:4 9pm HALF-WAY LAB WORK August 25, 2024 4 :00am HALF-WAY LAB WORK September 08, 2024 5:00 am Chief Complaint Admit Date NEW CONCERN June 26, 2024 5:54pm HALF-WAY LAB WORK July 14, 2024 4 :00am MONTHLY EXAM July 14, 2024 4:0 5pm HALF-WAY LAB WORK July 15, 2024 5 :00am MONTHLY EXAM August 17, 2024 4:4 9pm HALF-WAY LAB WORK August 25, 2024 4 :00am HALF-WAY LAB WORK September 08, 2024 5:00 am [...] Date NEW CONCERN June 26, 2024 5:54pm HALF-WAY LAB WORK July 14, 2024 4 :00am MONTHLY EXAM July 14, 2024 4:0 5pm HALF-WAY LAB WORK July 15, 2024 5 :00am MONTHLY EXAM August 17, 2024 4:4 9pm HALF-WAY LAB WORK August 25, 2024 4 :00am HALF-WAY LAB WORK September 08, 2024 5:00 am SEVERE HYPOGLYCEMIA/UTI October 18, 2024 9:38pm SEVERE HYPOGLYCEMIA/UTI October 19, 2024 6:52pm SEVERE HYPOGLYCEMIA/UTI October 20, 2024 11:11am Chief Complaint Admit Date MONTHLY EXAM August 17, 2024 4:4 9pm HALF-WAY LAB WORK August 25, 2024 4 :00am HALF-WAY LAB WORK September 08, 2024 5:00 am MONTHLY EXAM September 15, 2024 4:00p m HALF-WAY LAB WORK October 06, 2024 5:0 0am [...] MONTHLY EXAM August 17, 2024 4:4 9pm HALF-WAY LAB WORK August 25, 2024 4 :00am HALF-WAY LAB WORK September 08, 2024 5:00 am MONTHLY EXAM September 15, 2024 4:00p m HALF-WAY LAB WORK October 06, 2024 5:0 0am SEVERE HYPOGLYCEMIA/UTI October 18, 2024 9:38pm SEVERE HYPOGLYCEMIA/UTI October 19, 2024 6:52pm SEVERE HYPOGLYCEMIA/UTI October 20, 2024 11:11am RE ADMISSION EXAM October 21, 2024 5:45 pm Chief Complaint Admit Date HALF-WAY LAB WORK August 25, 2024 4 :00am HALF-WAY LAB WORK September 08, 2024 5:00 am MONTHLY EXAM September 15, 2024 4:00p m HALF-WAY LAB WORK October 06, 2024 5:0 0am SEVERE HYPOGLYCEMIA/UTI October 18, 2024 9:38pm SEVERE HYPOGLYCEMIA/UTI October 19, 2024 6:52pm SEVERE HYPOGLYCEMIA/UTI October 20, 2024 11:11am RE ADMISSION EXAM October 21, 2024 5:45 pm Monthly Exam November 10, 2024 4:19p m HALF-WAY LAB WORK November 17, 2024 4: 50am Chief Complaint Admit Date HALF-WAY LAB WORK September 08, 2024 5:00 am MONTHLY EXAM September 15, 2024 4:00p m HALF-WAY LAB WORK October 06, 2024 5:0 0am SEVERE HYPOGLYCEMIA/UTI October 18, 2024 9:38pm SEVERE HYPOGLYCEMIA/UTI October 19, 2024 6:52pm SEVERE HYPOGLYCEMIA/UTI October 20, 2024 11:11am RE ADMISSION EXAM October 21, 2024 5:45 pm Monthly Exam November 10, 2024 4:19p m HALF-WAY LAB WORK November 17, 2024 4: 50am MONTHLY EXAM December 04, 2024 4:1 5pm HALF-WAY LAB WORK December 08, 2024 5 :00am Chief Complaint Admit Date SEVERE HYPOGLYCEMIA/UTI October 18, 2024 9:38pm SEVERE HYPOGLYCEMIA/UTI October 19, 2024 6:52pm SEVERE HYPOGLYCEMIA/UTI October 20, 2024 11:11am RE ADMISSION EXAM October 21, 2024 5:45 pm Monthly Exam November 10, 2024 4:19p m HALF-WAY LAB WORK November 17, 2024 4: 50am MONTHLY EXAM December 04, 2024 4:1 5pm HALF-WAY LAB WORK December 08, 2024 5 :00am HALF-WAY LAB WORK December 29, 2024 4:00am HALF-WAY LAB WORK December 30, 2024 5:00am Chief Complaint Admit Date Monthly Exam November 10, 2024 4:19p m HALF-WAY LAB WORK November 17, 2024 4: 50am MONTHLY EXAM December 04, 2024 4:1 5pm HALF-WAY LAB WORK December 08, 2024 5 :00am HALF-WAY LAB WORK December 29, 2024 4:00am HALF-WAY LAB WORK December 30, 2024 5:00am MONTHLY EXAM January 12, 2025 3:54pm NEW CONCERN January 26, 2025 3:02pm Chief Complaint Admit Date Monthly Exam November 10, 2024 4:19p m HALF-WAY LAB WORK November 17, 2024 4: 50am MONTHLY EXAM December 04, 2024 4:1 5pm HALF-WAY LAB WORK December 08, 2024 5 :00am HALF-WAY LAB WORK December 29, 2024 4:00am HALF-WAY LAB WORK December 30, 2024 5:00am MONTHLY EXAM January 12, 2025 3:54pm NEW CONCERN January 26, 2025 3:02pm HALF-WAY LAB WORK February 09, 2025 5:25am Summary Purpose Additional Source Comments Reason for [...] End: June 26, 2024 Debora Schneider NP SEEING EYE DOG TRAINER-C Attending Provider Active Start: June 26, 2024 [...] End: August 17, 2024 Debora Schneider NP SEEING EYE DOG TRAINER-C Attending Provider Active Start: August 17, 2024 [...] 2024 End: August 24, 2024 Debora Schneider SEEING EYE DOG TRAINER, SEEING EYE DOG TRAINER-C Other Provider Active S tart: August 24, [...] MD Primary Care Provider Active Debora Schneider SEEING EYE DOG TRAINER, SEEING EYE DOG TRAINER-C Attending Provider Active Team Status: Inactive Member [...] 2024 End: June 01, 2024 Debora Schneider SEEING EYE DOG TRAINER, SEEING EYE DOG TRAINER-C Attending Provider Active Start: June 01, 2024 [...] 2024 End: August 17, 2024 Debora Schneider SEEING EYE DOG TRAINER, SEEING EYE DOG TRAINER-C Attending Provider Active Start: August 17, 2024 [...] 2024 End: August 24, 2024 Debora Schneider SEEING EYE DOG TRAINER, SEEING EYE DOG TRAINER-C Other Provider Active S tart: August 24, [...] End: October 21, 2024 Debora Schneider NP, SEEING EYE DOG TRAINER-C Attending Provider Active Start: October 21, 2024 [...] End: August 24, 2024 Debora Schneider NP, SEEING EYE DOG TRAINER-C Other Provider Active S tart: August 24, [...] End: October 21, 2024 Debora Schneider NP, SEEING EYE DOG TRAINER-C Attending Provider Active Start: October 21, 2024 End: October 21, 2024 Team Status: Inactive Member Role/Relationship Status Dates Dr. Donato Sepulveda MD Primary Care Provider Active Start: November 10, 2024 End: November 10, 2024 Dr. Donato Sepulveda MD Attending Provider Active Start: November [...] Attending Provider Active Start: December 08, 2024 Team Status: Inactive Member Role/Relationship [...] Start : October 20, 2024 Dr. Ángel aLm MD Attending Provider Active Start: October 20, 2024 Dr. Ángel Lam MD Other Provider Active Start: October 20, 2024 Team Status: Inactive Member Role/Relationship Status Dates Dr. Donato Sepulveda MD Primary Care Provider Active Start: October 21, 2024 End: October 21, 2024 Debora Schneider SEEING EYE DOG TRAINER, SEEING EYE DOG TRAINER-C Attending Provider Active Start: October 21, 2024 End: October 21, 2024 Team Status: Inactive Member Role/Relationship Status Dates Dr. Donato Sepulveda MD Primary Care Provider Active Start: November 10, 2024 End: November 10, 2024 Dr. Donato Sepulveda MD Attending Provider Active Start: November [...] MD Primary Care Provider Active Start: December 04, 2024 End: December 04, 2024 Debora Schneider SEEING EYE DOG TRAINER, SEEING EYE DOG TRAINER-C Attending Provider Active Start: December 04, 2024 End: December 04, 2024 Team Status: Active Member Role/Relationship Status Dates Dr. Donato Sepulveda MD Primary Care Provider Active Start: December 08, 2024 Donato COLVIN MD Attending Provider Active Start: December 08, 2024 Team Status: Active Member Role/Relationship Status Dates Dr. Donato Sepulveda MD Primary Care Provider Active Start: December 29, 2024 Donato COLVIN MD Attending Provider Active Start: December 29, 2024 Team Status: Active Member Role/Relationship Status Dates Dr. Donato Sepulveda MD Primary care physician Activ e Team Status: Inactive Member Role/Relationship Status Dates Dr. Donato Sepulveda MD Primary care physician Activ e Start: October 18, 2024 End: October 20, 2024 Dr. Zoltan Garcia DO Emergency Departm ent Physician Active Start: October 18, 2024 End: October 20, 2024 Dr. Anali Coello DO Admitting physician Active Start: October 18, 2024 End: October 20, 2024 Dr. Anali Coello , DO Nurse Practitioner Active S tart: October 18, 2024 End: October 20, 2024 Dr. Ángel Lam MD Attending physician Active Start: October 18 End: October 20, 2024 Team Status: Active Member Role/Relationship Status Dates Dr. Donato Sepulveda MD Primary care physician Activ e Start: October 19, 2024 Dr. Zoltan Garcia , DO Emergency Departm ent Physician Active Start: October 19, 2024 Dr. Anali Coello , Admitting physician Active Start: October 19, 2024 Dr. Anali Coello , Nurse Practitioner Active S tart: October 19, 2024 Dr. Ángel Lam MD Attending physician Active Start: October 19 Dr. Ángel Lam MD Nurse Practitioner Active Start: October 19 Team Status: Active Member Role/Relationship Status Dates Dr. Donato Sepulveda MD Primary care physician Activ e Start: October 20, 2024 Dr. Zoltan Garcia , DO Emergency Departm ent Physician Active Start: October 20, 2024 Dr. Anali Coello , Admitting physician Active Start: October 20, 2024 Dr. Anali Coello , Nurse Practitioner Active S tart: October 20, 2024 Dr. Ángel Lam MD Attending physician Active Start: October 20 Dr. Ángel Lam MD Nurse Practitioner Active Start: October 20 Team Status: Inactive Member Role/Relationship Status Dates Dr. Donato Sepulveda MD Primary care physician Activ e Start: October 21, 2024 End: October 21, 2024 Debora Schneider SEEING EYE DOG TRAINER, SEEING EYE DOG TRAINER-C Attending physician Active Start: October 21, 2024 End: October 21, 2024 Team Status: Inactive Member Role/Relationship Status Dates Dr. Donato Sepulveda MD Primary care physician Activ e Start: November 10, 2024 End: November 10, 2024 Dr. Donato Sepulveda MD Attending physician Active Start: November 10, 2024 End: November 10, 2024 Team Status: Inactive Member Role/Relationship Status Dates Dr. Donato Sepulveda MD Primary care physician Activ e Start: November 17, 2024 End: November 17, 2024 Donato COLVIN MD Attending physician Active Start: November 17, 2024 End: November 17, 2024 Donato COLVIN MD Referring Provider Active Start: November 17, 2024 End: November 17, 2024 Team Status: Inactive Member Role/Relationship Status Dates Dr. Donato Sepulveda MD Primary care physician Activ e Start: December 04, 2024 End: December 04, 2024 Debora Schneider SEEING EYE DOG TRAINER, SEEING EYE DOG TRAINER-C Attending physician Active Start: December 04, 2024 End: December 04, 2024 Team Status: Active Member Role/Relationship Status Dates Dr. Donato Sepulveda MD Primary care physician Activ e Start: December 08, 2024 Donato COLVIN MD Attending physician Active Start: December 08, 2024 Team Status: Active Member Role/Relationship Status Dates Dr. Donato Sepulveda MD Primary care physician Activ e Start: December 29, 2024 Donato COLVIN MD Attending physician Active Start: December 29, 2024 Donato COLVIN MD Referring Provider Active Start: December 29, 2024 Team Status: Active Member Role/Relationship Status Dates Dr. Donato Sepulveda MD Primary care physician Activ e Start: December 30, 2024 Donato COLVIN MD Attending physician Active Start: December 30, 2024 Team Status: Inactive Member Role/Relationship Status Dates Dr. Donato Sepulveda MD Primary care physician Activ e Start: November 10, 2024 End: November 10, 2024 Dr. Donato Sepulveda MD Attending physician Active Start: November 10, 2024 End: November 10, 2024 Team Status: Inactive Member Role/Relationship Status Dates Dr. Donato Sepulveda MD Primary care physician Activ e Start: November 17, 2024 End: November 17, 2024 Donato COLVIN MD Attending physician Active Start: November 17, 2024 End: November 17, 2024 Donato COLVIN MD Referring Provider Active Start: November 17, 2024 End: November 17, 2024 Team Status: Inactive Member Role/Relationship Status Dates Dr. Donato Sepulveda MD Primary care physician Activ e Start: December 04, 2024 End: December 04, 2024 Debora Schneider SEEING EYE DOG TRAINER, SEEING EYE DOG TRAINER-C Attending physician Active Start: December 04, 2024 End: December 04, 2024 Team Status: Active Member Role/Relationship Status Dates Dr. Donato Sepulveda MD Primary care physician Activ e Start: December 08, 2024 Donato COLVIN MD Attending physician Active Start: December 08, 2024 Team Status: Inactive Member Role/Relationship Status Dates Dr. Donato Sepulveda MD Primary care physician Activ e Start: December 29, 2024 End: December 29, 2024 Donato COLVIN MD Attending physician Active Start: December 29, 2024 End: December 29, 2024 Donato COLVIN MD Referring Provider Active Start: December 29, 2024 End: December 29, 2024 Team Status: Active Member Role/Relationship Status Dates Dr. Donato Sepulveda MD Primary care physician Activ e Start: December 30, 2024 Donato COLVIN MD Attending physician Active Start: December 30, 2024 Team Status: Inactive Member Role/Relationship Status Dates Dr. Donato Sepulveda MD Primary care physician Activ e Start: January 12, 2025 End: January 12, 2025 Dr. Donato Sepulveda MD Attending physician Active Start: January 12, 2025 End: January 12, 2025 Team Status: Inactive Member Role/Relationship Status Dates Dr. Donato Sepulveda MD Primary care physician Activ e Start: January 26, 2025 End: January 26, 2025 Debora Schneider [employer]ING [employer]G TRAINER, SEEING [employer] DOG TRAINER-C Attending physician Active Start: January 26, 2025 End: January 26, 2025 Team Status: Active Member Role/Relationship Status Dates Dr. Donato Sepulveda MD Primary care physician Activ e Start: February 09, 2025 Donato COLVIN MD Attending physician Active Start: February 09, 2025 Team Status: Active Member Role/Relationship Status Dates Dr. Donato Sepulveda MD Primary care physician Activ e Start: February 17, 2025 Donato COLVIN MD Attending physician Active Start: February 17, 2025 INFORMATION SOURCE (unrecogn ized section and content) DATE CREATED AUTHOR 03/07/2025 [facility] FOR RECORDS PERTAINING TO PATIENTS WHO [...] BE BASED ON THE PRIMARY CLINICAL RECORDS. [employer] provides no warranty or guarantee of the accuracy or completeness of information in this document.
== END ==
LOC: OLS.WHLEAS 05:00
PROVIDERS: PCP Internal Medicine; Visit Provider Internal Medicine
DX: E11.22 Type 2 diabetes mellitus with diabetic chronic kidney disease (principal); E11.21 Type 2 diabetes mellitus with diabetic nephropathy; N18.30 Chronic kidney disease, stage 3 unspecified
CPT/HCPCS: 36415; 83036

== ENCOUNTER → 2025-03-23 | Outpatient (REF) | payer MEDICARE, MEDICAID, SELFPAY ==
--- OUTSIDE RECORDS SUMMARY | 2025-03-23 03:35 | XMS RPT_ITS | CCD ---
Author Organization [facility] Care Team Providers Care Snow Maker Name Role Phone Trent HILARIO, Rachael Sarabia Unavailable [phone] Basilio Flores Primary Care Provider Tickangelic LIBRARY SERIALS ASSISTANT, LIBRARY SERIALS ASSISTANT-C Debora Attending Provider Dr. Basilio Anderson Primary Care Provider Dr. Basilio Flores Primary Care Provider [place]ton LIBRARY SERIALS ASSISTANT, LIBRARY SERIALS ASSISTANT-C Debora Attending Provider Dr. Basilio Anderson Primary Care Provider [place] LIBRARY SERIALS ASSISTANT, LIBRARY SERIALS ASSISTANT-C Debora Attending Provider Dr. Basilio Anderson Primary Care Provider Dr. Donato Sepulveda Attending Provider [place] LIBRARY SERIALS ASSISTANT, LIBRARY SERIALS ASSISTANT-C Debora Attending Provider Dr. Basilio Anderson Primary Care Provider Dr. Donato Sepulveda Attending Provider [place] LIBRARY SERIALS ASSISTANT, LIBRARY SERIALS ASSISTANT-C Debora Attending Provider Dr. Basilio Anderson Primary Care Provider [place] LIBRARY SERIALS ASSISTANT, LIBRARY SERIALS ASSISTANT-C Debora Attending Provider Dr. Donato Centeno Attending Provider [phone] Dr. Basilio Flores Primary Care Provider [place]ton LIBRARY SERIALS ASSISTANT, LIBRARY SERIALS ASSISTANT-C Debora Attending Provider Dr. Donato Centeno Attending Provider Dr. Basilio Flores Primary Care Provider [place] LIBRARY SERIALS ASSISTANT, LIBRARY SERIALS ASSISTANT-C Debora Attending Provider Dr. Basilio Anderson Primary Care Provider [place] LIBRARY SERIALS ASSISTANT, LIBRARY SERIALS ASSISTANT-C Debora Attending Provider Dr. Donato Sepulveda Attending Provider Dr. Basilio Flores Primary Care Provider [place] LIBRARY SERIALS ASSISTANT, LIBRARY SERIALS ASSISTANT-C Debora Attending Provider Dr. Donato Sepulveda Attending Provider Dr. Basilio Flores MD Primary Care Provider Donato Sepulveda MD Attending Provider Dr. Donato Frederick MD Attending Provider Tickangelic LIBRARY SERIALS ASSISTANT-C, Debora Attending Provider Donato Sepulveda MD Referring Provider Dr. Basilio Owens MD Primary Care Provider Donato Sepulveda MD Attending Provider UnavailDr. Armando Elizabeth MD Attending Provider [phone] Dr. Armando Rich MD Referring Provider Derick HILARIO, Dr. Sewell Primary Care Provider Tickangelic LIBRARY SERIALS ASSISTANT-C, Debora Other Provider Dr. Basilio Flores MD Primary Care Provider Donato Sepulveda MD Attending Provider Unavaila keli Schneider LIBRARY SERIALS ASSISTANT-C, Debora Attending Provider Dr. Donato Sepulveda MD Attending Provider Dr. Donato Sepulveda MD Primary Care Provider Dr. Basilio Flores MD Primary Care Provider Donato Sepulveda MD Attending Provider Dr. Basilio Owens MD Primary Care Provider Donato Sepulveda MD Attending Provider Dr. Zoltan Laguna DO Emergency Provider Dr. Anali Coello DO Admit Provider Dr. Anali Coello DO Attending Provider Dr. Anali Coello DO Other Provider Genaro HILARIO, Dr. Ángel Triana Attending Provider Genaro HILARIO, Dr. Ángel Triana Other Provider Tickton LIBRARY SERIALS ASSISTANT-C, Debora Attending Provider Derick HILARIO, Donato Attending Provider Unavailyifan Sepulveda MD, Donato Referring Provider Selwyn Sepulveda MD, Dr. Sewell Attending Provider Tickangelic LIBRARY SERIALS ASSISTANT-C, Debora Attending Provider Derick HILARIO, Dr. Sewell Primary Care Provider Derick HILARIO, Donato Attending Provider Unavailyifan Sepulveda MD, Donato Referring Provider Selwyn Sepulveda MD, Dr. Sewell Primary Care Physician Dr. Zoltan Garcia DO Emergency Department Physi alayna Dr. Anali Coello DO Admitting Physician Dr. Anali Coello DO Nurse Practitioner Genaro HILARIO, Dr. Ángel Triana Attending Physician Genaro HILARIO, Dr. Ángel Triana Nurse Practitioner Wyatt LIBRARY SERIALS ASSISTANT-C, Debora Attending Physician Derick HILARIO, Dr. Sewell Attending Physician Donato Sepulveda MD Attending Physician Unavail able Derick HILARIO, Dr. Sewell Primary Care Physician Wyatt LIBRARY SERIALS ASSISTANT-C, Debora Attending Physician Donato Sepulveda Primary Care Unavailable Donato Sepulveda Attending Unavailable Basilio Flores Primary Care Unavailable Oleghe OLS, Efewongbe Attending Unavailabl e Basilio Flores Primary Care Unavailable Oleghe OLS, Efewongbe Attending Unavailabl e Oleghe, Efewongbe Attending Unavailable Oleghe, Efewongbe Primary Care Unavailable Oleghe OLS, Efewongbe Referring Unavailabl e Oleghe OLS, Efewongbe Attending Unavailabl e Oleghe, Efewongbe Primary Care Unavailable Oleghe, Efewongbe Primary Care Unavailable Oleghe OLS, Efewongbe Attending Unavailabl e Oleghe OLS, Efewongbe Referring Unavailabl e Basilio Flores Primary Care Unavailable Oleghe OLS, Efewongbe Attending Unavailabl Anali Granados Admitting Unavailable Anali Coello Consulting Unavailable Ángel Lam Attending Unavailable Oleghe, Efewongbe Primary Care Unavailable Tickton LIBRARY SERIALS ASSISTANT, Debora Consulting Unavailable Armando Rich Attending Unavailable Armando Rich Referring Unavailable Oleghe, Efewongbe Primary Care Unavailable [place]ton LIBRARY SERIALS ASSISTANT, Debora Attending Unavailable Oleghe, Efewongbe Primary Care [...] Unavailabl e Oleghe, Efewongbe Primary Care Unavailable Basilio Flores Primary Care Unavailable Oleghe OLS, Efewongbe Attending Unavailabl e Oleghe OLS, Efewongbe Attending Unavailabl e Oleghe, Efewongbe Primary Care Unavailable Basilio Flores Primary Care Unavailable Oleghe OLS, Efewongbe Referring Unavailabl e Oleghe OLS, Efewongbe Attending Unavailabl e Oleghe, Efewongbe Primary Care Unavailable [place]ickton LIBRARY SERIALS ASSISTANT, Debora Attending Unavailable Oleghe, Efewongbe Primary Care Unavailable Oleghe, Efewongbe Attending Unavailable [place]ton LIBRARY SERIALS ASSISTANT, Debora Attending Unavailable Oleghe, Efewongbe Primary Care Unavailable [place]ton LIBRARY SERIALS ASSISTANT, Debora Attending Unavailable Oleghe, Efewongbe Primary Care Unavailable Oleghe OLS, Efewongbe Attending Unavailabl e Oleghe, Efewongbe Primary Care Unavailable [place]ton LIBRARY SERIALS ASSISTANT, Debora Attending Unavailable Oleghe, Efewongbe Primary Care Unavailable Flores, Basilio K Primary Care Unavailable Oleghe OLS, Efewongbe Attending Unavailabl e Flores, Basilio K Primary Care Unavailable [place]ton LIBRARY SERIALS ASSISTANT, Debora Attending Unavailable Flores, Basilio K Primary Care Unavailable Oleghe, Efewongbe Attending Unavailable [place]ton LIBRARY SERIALS ASSISTANT, Debora Attending Unavailable Oleghe, Efewongbe Primary Care Unavailable Flores, Basilio K Primary Care Unavailable [place] LIBRARY SERIALS ASSISTANT, Debora Attending Unavailable Anali Coello Admitting Unavailable Oleghe, [...] source) Acetaminophen / HYDROcodone Drug Allergy unknown [facility] Work Phone: (1 source) Acetaminophen / oxyCODONE Drug Allergy 019 unknown [facility] Work Phone: (1 source) Acetaminophen / Propoxyphene Drug Allergy 019 unknown [facility] Work Phone: (1 source) Baclofen Drug Allergy unknown [facility] Work Phone: (1 source) Carbidopa / Levodopa Drug Allergy 019 unknown [facility] Work Phone: (1 source) Ibuprofen Drug Allergy 11-11-2 019 kidney disease [facility] Work Phone: (1 source) Ketoprofen Drug Allergy unknown [facility] Work Phone: (1 source) LORazepam Drug Allergy unknown [facility] Work Phone: (1 source) metFORMIN Drug Allergy unknown [facility] Work Phone: (20 sources) Naloxone; Translations: [naloxone] Drug Allergy unknown, Nausea [facility] Work Phone: (1 source) oxaprozin Drug Allergy unknown [facility] Work Phone: (1 source) rofecoxib Drug Allergy unknown [facility] Work Phone: (1 source) rosiglitazone Drug Allergy siblings had severe reactions [facility] Work Phone: (1 source) Sertraline Drug Allergy unknown [facility] Work Phone: (1 source) Simvastatin Drug Allergy unknown [facility] Work Phone: (1 source) Sulfamethoxazole / Trimethoprim Drug Allergy unknown [facility] Work Phone: (1 source) venlafaxine; Translations: [EFFEXOR] Drug Allergy unknown [facility] Work Phone: (20 sources) Carbidopa Drug Allergy 018 Nausea [facility] (20 sources) HYDROcodone; Translations: [hydrocodone bitartrate] Drug Allergy Nausea [facility] (20 sources) Ketoprofen Drug Allergy Unknown [facility] (20 sources) Levodopa Drug Allergy Nausea [facility] (20 sources) LORazepam Drug Allergy hallucination [facility] (20 sources) metFORMIN; Translations: [metformin HCl] Drug Allergy Nausea [facility] (20 sources) oxaprozin Drug Allergy Nausea [facility] (20 sources) oxyCODONE; Translations: [oxycodone HCl] Drug Allergy Nausea [facility] (20 sources) Propoxyphene; Translations: [propoxyphene HCl] Drug Allergy Nausea [facility] (20 sources) rofecoxib Drug Allergy Nausea [facility] (20 sources) rosiglitazone; Translations: [rosiglitazone maleate] Drug Allergy Nausea [facility] (20 sources) Sertraline; Translations: [sertraline HCl] Drug Allergy haullucination [facility] (20 sources) Simvastatin Drug Allergy Nausea [facility] (20 sources) Sulfamethoxazole Drug Allergy Rash [facility] (20 sources) Trimethoprim Drug Allergy Rash [facility] (20 sources) venlafaxine; Translations: [venlafaxine HCl] Drug Allergy Nausea [facility] (20 sources) NSAIDS (Non-Steroidal Anti-Inflamma; Translations: [NSAIDS (Non-Steroidal Anti-Inflamma] Propensity to adverse reactions PT UNSURE OF REACTION [facility] (1 source) Carbidopa Drug Allergy [facility] (1 source) Ketoprofen Drug Allergy [facility] (1 source) Levodopa Drug Allergy [facility] (1 source) LORazepam Drug Allergy [facility] (1 source) oxaprozin Drug Allergy [facility] (1 source) rofecoxib Drug Allergy [facility] (1 source) Simvastatin Drug Allergy [facility] (1 source) Sulfamethoxazole Drug Allergy 025 [facility] (1 source) Trimethoprim Drug Allergy 025 [facility] Medications Current Medications Medication Drug Class(es) Dates Sig (Normalized) Sig (Original) acetaminophen 325 mg oral tablet (20 sources) Start: 10-18-2024 take 2 tablets by mouth every four hours as needed for pain Start: 03-16-2019 TYLENOL 325 MG CAPS takes two tabs every 4 hours as needed ACETAMINOPHEN [id number] Rachael Newman MD Start: 09-20-2017 take 1 [...] mg/ml ophthalmic solution (4 sources) Plasma Volume Research Administrator Start: 10-18-2024 take 0.1-0.3 drop(s) into the [...] night and 40mg twice daily FUROSEMIDE TABS [id number] Rachael Newman MD glucagon (rdna) 1 mg [...] takes 46 units twice daily INSULIN GLARGINE [id number] Rachael Newman MD Start: 04-06-2015 End: 09-26-2017 [...] three times daily as needed OXYCODONE HCL [id number] Rachael Newman MD Start: 07-14-2015 End: 09-20-2017 [...] Start: 06-05-2023 take 2 tablets by mo uth once daily Start: 06-05-2023 take 40 mEq by mouth once curly y Potassium Chloride Active 40 MEQ PO DAILY June 05, 2023 1:00am Completed/Discontinued Medications Medication Drug Class(es) Dates Sig (Normalized) Sig (Original) amoxicillin 500 mg oral capsule (1 source) Penicillin-class Antibacterial Start: 03-16-2019 AMOXICILLIN 500 MG CAPS takes as directed prior to dental procedures AMOXICILLIN [id number] Rachael Newman MD aspirin 325 mg oral [...] takes one tab once daily ATORVASTATIN CALCIUM [id number] Rachael Newman MD bacillus coagulans [id number] unt / inulin 250 mg oral capsule [...] TABS takes one tab daily DIPHENHYDRAMINE HCL [id number] Rachael Newman MD Start: 03-16-2019 BENADRYL ALLER GY 25 MG CAPS takes one tab once daily DIPHENHYDRAMINE HCL [id number] Rachael Newman MD doxepin hydrochloride 10 mg oral capsule (1 source) Tricyclic Antidepressant Start: 03-16-2019 DOXEPIN HCL 10 MG CAPS takes two tabs daily DOXEPIN HCL [id number] Rachael Newman MD famotidine 20 mg oral [...] CAPS takes one tab once daily GABAPENTIN [id number] Rachael Newman MD Insulin Glargine 100 UNIT/ML [...] UNITS/ML insulin pen Discontinued 10 U subcut DAILY@09December 16, 2019 12:00am June 08, [...] sliding scale three times daily INSULIN ASPART [id number] Rachael Newman MD Start: 04-25-2015 End: 07-14-2015 [...] TABS takes one tab once daily LISINOPRIL [id number] Rachael Newman MD melatonin 3 mg oral tablet (20 sources) Start: 12-16-2019 End: 06-08-2023 take 1 tablet by mouth at bedtime Melatonin 3 MG tablet Discontinued 3 mg PO AT BEDTIME December 16, 2019 12:00am June 08, 2023 9:23am SLEEP Start: 03-16-2019 MELATONIN 10 M G TABS takes one tab once daily MELATONIN [id number] Rachael Newman MD meloxicam 7.5 mg oral [...] CPDR takes one tab once daily OMEPRAZOLE [id number] Rachael Newman MD polyethylene glycol 400 10 [...] takes one tab once daily RANITIDINE HCL [id number] Rachael Newman MD rOPINIRole 0.5 mg oral [...] [Chronic kidney disease, stage 3 unspecified] Onset: 03-05-2025 Complication of device; implant or graft (20 [...] sources) Hypertensive disorder; Translations: [Essential (primary) hypertension] Onset: 03-15-2025 12-16-2019 Chronic Fluid and electrolyte disorders (20 [...] 02-17-2025 Anion gap [Moles/Vol] 11 mmol/L 09-17 [facility] BUN/creatinine ratioOrdered By: Donato Sepulveda on 02-17-2025 Urea nitrogen/Creatinine [Mass ratio] 13.1 mg/mg 02-22 [facility] Carbon dioxide, total [Moles /volume] in Central venous bloodOrdered By: Donato Sepulveda on 02-17-2025 CO2 [Moles/Vol] 28.1 mmol/L 21.0-32.0 [facility] Chloride assayOrdered By: Livier Sepulveda on 02-17-2025 Chloride [Moles/Vol] 98 mmol/L 98-108 [facility] Glomerular filtration rate ( GFR) estimation/1.73 sq m using serum, plasma, or whole bOrdered By: Donato Sepulveda on 02-17-2025 GFR/1.73 sq M.predicted among non-blacks MDRD (S/P/Bld) [Vol rate/Area] 80 mL/min/{1.73_m2} >60 [facility] Comment on above: mL/min/1.73m2 CKD-EP I Creatinine Equation (2020) Potassium measurement (mass/ volume)Ordered By: Donato Sepulveda on 02-17-2025 Potassium (Unsp spec) [Mass/Vol] 4.1 mmol/L 3.3-5.1 [facility] Serum creatinine measurement (mass/volume)Ordered By: Donato Sepulveda on 02-17-2025 Creatinine [Mass/Vol] 0.75 mg/dL 0.70-1.20 [facility] Serum glucose measurement (m ass/volume)Ordered By: Donato Sepulveda on 02-17-2025 Glucose [Mass/Vol] 366 mg/dL High 70-99 [facility] Serum or plasma calcium serge urement (mass/volume)Ordered By: Donato Sepulveda on 02-17-2025 Calcium [Mass/Vol] 9.2 mg/dL 7.6-11.0 [facility] Serum or plasma urea nitroge n measurement (mass/volume)Ordered By: Donato Sepulveda on 02-17-2025 Urea nitrogen [Mass/Vol] 10 mg/dL 4-19 [facility] Sodium levelOrdered By: Raul Sepulveda on 02-17-2025 Sodium [Moles/Vol] 137 mmol/L 133-145 [facility] Potassium measurement (mass/ volume)Ordered By: Donato Sepulveda on 12-30-2024 Potassium (Unsp spec) [Mass/Vol] 4.3 mmol/L 3.3-5.1 [facility] Anion gap in Serum or Plasma Ordered By: Donato Sepulveda on 12-29-2024 Anion gap [Moles/Vol] 10 mmol/L 5-15 [facility] BUN/creatinine ratioOrdered By: Donato Sepulveda on 12-29-2024 Urea nitrogen/Creatinine [Mass ratio] 18.5 mg/mg 10-20 [facility] Carbon dioxide, total [Moles /volume] in Central venous bloodOrdered By: Donato Sepulveda on 12-29-2024 CO2 [Moles/Vol] 28.6 mmol/L 21.0-32.0 [facility] Chloride assayOrdered By: Livier Sepulveda on 12-29-2024 Chloride [Moles/Vol] 97 mmol/L Low 98-108 [facility] Glomerular filtration rate ( GFR) estimation/1.73 sq m using serum, plasma, or whole bOrdered By: Donato Sepulveda on 12-29-2024 GFR/1.73 sq M.predicted among non-blacks MDRD (S/P/Bld) [Vol rate/Area] 81 mL/min/{1.73_m2} >60 [facility] Comment on above: mL/min/1.73m2 CKD-EP I Creatinine Equation (2020) Hemoglobin A1c percentageOrd ered By: Donato Sepulveda on 12-29-2024 HbA1c (Bld) [Mass fraction] 9.3 % High <5.7 [facility] Comment on above: Normal < 5.7 % Predi abetic 5.7 - 6.4 % Diabetic >or= 6.5 % Please note range changes. Potassium measurement (mass/ volume)Ordered By: Donato Sepulveda on 12-29-2024 Potassium (Unsp spec) [Mass/Vol] 5.2 mmol/L High 3.3-5.1 [facility] Serum creatinine measurement (mass/volume)Ordered By: Donato Sepulveda on 12-29-2024 Creatinine [Mass/Vol] 0.74 mg/dL 0.70-1.20 [facility] Serum glucose measurement (m ass/volume)Ordered By: Donato Sepulveda on 12-29-2024 Glucose [Mass/Vol] 336 mg/dL High 70-99 [facility] Serum or plasma calcium serge urement (mass/volume)Ordered By: Livierstudyanchar Lombardirjnoris on 12-29-2024 Calcium [Mass/Vol] 9.4 mg/dL 7.6-11.0 [facility] Serum or plasma urea nitroge n measurement (mass/volume)Ordered By: Donato Sepulveda on 12-29-2024 Urea nitrogen [Mass/Vol] 14 mg/dL 4-19 [facility] Sodium levelOrdered By: Raul medrano Harjitrjnoris on 12-29-2024 Sodium [Moles/Vol] 135 mmol/L 133-145 [facility] Hemoglobin A1c percentageOrd ered By: Livierstudyanchar Lombardirjnoris on 12-08-2024 HbA1c (Bld) [Mass fraction] 10.2 % High <5.7 [facility] Comment on above: Normal < 5.7 % Predi abetic 5.7 - 6.4 % Diabetic >or= 6.5 % Please note range changes. Culture, Blood (WB)on 2024 [facility] Blood cultures x2, from two different sites No growth in 5 days. Normal [facility] Comment on above: Performed By: #### L 501.080 #### [facility] [address] [facility] [address] Bedside Glucoseon 10-20-2024 FINGERSTICK GLU 200 mg/dL High 74-106 [facility] Comment on above: Result Comment: JEWELS GEMENT OF PATIENT CARE PER NURSING PROTOCOL Performed By: #### L 501.080 #### [facility] [address] [facility] [address] FINGERSTICK GLU 296 mg/dL High 74-106 [facility] Comment on above: Result Comment: JEWELS GEMENT OF PATIENT CARE PER NURSING PROTOCOL Performed By: #### L 501.080 #### [facility] [address] [facility] [id number] FINGERSTICK GLU 154 mg/dL High 74-106 [facility] Comment on above: Result Comment: JEWELS RAJPUT OF PATIENT CARE PER NURSING PROTOCOL Performed By: #### L 501.080 #### [facility] [address] [place], [place], [id number] Gl[facility] at [facility] deOrdered By: Ángel Lam on 10-20-2024 Glucose [Mass/Vol] 200 mg/dL High 74-106 [facility] Comment on above: MANAGEMENT OF PATIEN T CARE PER NURSING PROTOCOL Urine Cultureon 10-20-2024 URC Escherichia coli Bradford Count 50,000-80,000 Escherichia coli: REACTION Ampicillin Islt [...] TMP SMX Islt BRANDEE <=20 S Normal [facility] Comment on above: Performed By: #### L 501.080 #### [facility] [address] [place], [place], [id number] Absolute lymphocyte countOrd ered By: Anali Coello on 10-19-2024 Lymphocytes Auto (Unsp spec) [#/Vol] 1.48 10*3/uL 0.83-4.51 [facility] Absolute neutrophil countOrd ered By: Anali Coello on 10-19-2024 Neutrophils (Bld) [#/Vol] 4.8 10*3/uL 2.0-7.7 [facility] Anion gap in Serum or Plasma Ordered By: Anali Coello on 10-19-2024 Anion gap [Moles/Vol] 10 mmol/L 5-15 [facility] Automated lymphocyte count a s percentage of total leukocytesOrdered By: Anali Coello on 10-19-2024 Lymphocytes/100 WBC Auto (Unsp spec) 21.5 % 19-41 [facility] BUN/creatinine ratioOrdered By: Anali Coello on 10-19-2024 Urea nitrogen/Creatinine [Mass ratio] 11.3 mg/mg 10-20 [facility] Basophil percentageOrdered B y: Anali Coello on 10-19-2024 Basophils/100 WBC (Bld) 0.3 % 0-1 [facility] Bedside Glucoseon 10-19-2024 FINGERSTICK GLU 313 mg/dL High 74-106 [facility] Comment on above: Result Comment: JEWELS GEMENT OF PATIENT CARE PER NURSING PROTOCOL Performed By: #### L 501.080 #### [facility] [address] [place], [address] FINGERSTICK GLU 291 mg/dL High [address] [place] [address] Comment on above: Result Comment: JEWELS GEMENT OF PATIENT CARE PER NURSING PROTOCOL Performed By: #### L 501.080 #### [facility] [address] [place], [address] FINGERSTICK GLU 220 mg/dL High [address] [facility] Comment on above: Result Comment: JEWELS GEMENT OF PATIENT CARE PER NURSING PROTOCOL Performed By: #### L 501.080 #### [facility] [address] [place], [address] FINGERSTICK GLU 132 mg/dL High [address] [facility] Comment on above: Result Comment: JEWELS GEMENT OF PATIENT CARE PER NURSING PROTOCOL Performed By: #### L 501.080 #### [facility] [address] [place], [address] FINGERSTICK GLU 112 mg/dL High [facility]106 [facility] Comment on above: Result Comment: JEWELS GEMENT OF PATIENT CARE PER NURSING PROTOCOL Performed By: #### L 501.080 #### [facility] [address] [place], [address] FINGERSTICK GLU 177 mg/dL High -106 [facility] Comment on above: Result Comment: JEWELS GEMENT OF PATIENT CARE PER NURSING PROTOCOL Performed By: #### L 501.080 #### [facility] [address] [place], [address] FINGERSTICK GLU 170 mg/dL High 74-106 [facility] Comment on above: Result Comment: JEWELS GEMENT OF PATIENT CARE PER NURSING PROTOCOL Performed By: #### L 501.080 #### [facility] [address] [place], [address] FINGERSTICK GLU 135 mg/dL High 74-106 [facility] Comment on above: Result Comment: JEWELS GEMENT OF PATIENT CARE PER NURSING PROTOCOL Performed By: #### L 501.080 #### [facility] [address] [place], [address] Bilirubin, totalOrdered By: Anali Coello on 10-19-2024 Bilirubin [Mass/Vol] 0.42 mg/dL 0.00-1.30 [facility] CBC W/Diff, Automatedon 10-04 Absolute Lymph 1.48 X10 3/uL Normal 0.83-4.51 [facility] Comment on above: Performed By: #### L 501.080 #### [facility] [address] [place], [address] Absolute Neut 4.8 X10 3/uL Normal 2.0-7.7 [facility] Comment on above: Performed By: #### L 501.080 #### [facility] [address] [place], [address] Basophils/100 WBC (Bld) 0.3 % Normal 0-1 [facility] Comment on above: Performed By: #### L 501.080 #### [facility] [address] [place], [address] Eosinophils/100 WBC (Bld) 0.6 % Normal 0-5 [facility] Comment on above: Performed By: #### L 501.080 #### [facility] [address] [place], [address] Erythrocyte distribution width (RBC) [Ratio] 12.9 % Normal 11.6-14.6 [facility] Comment on above: Performed By: #### L 501.080 #### [facility] [address] [place], [address] Hematocrit (Bld) [Volume fraction] 38.0 % Normal 37-47 [facility] Comment on above: Performed By: #### L 501.080 #### [facility] [address] [place], [address] Hemoglobin (Bld) [Mass/Vol] 12.4 g/dL Normal 12.0-15.0 [facility] Comment on above: Performed By: #### L 501.080 #### [facility] [address] [place], [address] IG% 0.300 Normal 0.0-0.9 [facility] Comment on above: Result Comment: IG% - Immature Granulocytes (promyelocytes, myelocytes and metamyelocytes) > 1% indicates that a LEFT SHIFT is Present. Performed By: #### L 501.080 #### [facility] [address] [place], [address] Lymphocytes/100 WBC (Bld) 21.5 % Normal 19-41 [facility] Comment on above: Performed By: #### L 501.080 #### [facility] [address] [place], [address] MCH (RBC) [Entitic mass] 29.7 pg Normal 27.0-32.0 [facility] Comment on above: Performed By: #### L 501.080 #### [facility] [address] [place], [address] MCHC (RBC) [Mass/Vol] 32.6 g/dL Normal 32-36 [facility] Comment on above: Performed By: #### L 501.080 #### [facility] [address] [place], [address] MCV (RBC) [Entitic vol] 90.9 fL Normal 81-99 [facility] Comment on above: Performed By: #### L 501.080 #### [facility] [address] [place], [address] Monocytes/100 WBC (Bld) 7.3 % Normal 0-10 [facility] Comment on above: Performed By: #### L 501.080 #### [facility] [address] [place], [address] Neutrophils/100 WBC (Bld) 70.0 % Normal 47-70 [facility] Comment on above: Performed By: #### L 501.080 #### [facility] [address] [place], [address] Nucleated RBC (Bld) [#/Vol] 0 10*3/uL Normal 0-5 [facility] Comment on above: Performed By: #### L 501.080 #### [facility] [address] [place], [address] Platelet mean volume (Bld) [Entitic vol] 9.4 fL Normal 6.2-12.0 [facility] Comment on above: Performed By: #### L 501.080 #### [facility] [address] [place], [address] Platelets (Bld) [#/Vol] 181 10*3/uL Normal 150-450 [facility] Comment on above: Performed By: #### L 501.080 #### [facility] [address] [place], [address] RBC (Bld) [#/Vol] 4.18 10*6/uL Low 4.2-5.4 [facility] Comment on above: Performed By: #### L 501.080 #### [facility] [address] [place], [address] RDW SD 42.5 fl Normal 35.1-43.9 [facility] Comment on above: Performed By: #### L 501.080 #### [facility] [address] [place], [address] WBC (Bld) [#/Vol] 6.9 10*3/uL Normal 4.4-11.0 [facility] Comment on above: Performed By: #### L 501.080 #### [facility] [address] [place], [address] Carbon dioxide, total [Moles /volume] in Central venous bloodOrdered By: Anali Coello on 10-19-2024 CO2 [Moles/Vol] 23.7 mmol/L 21.0-32.0 [facility] Chloride assayOrdered By: Medina Coello on 10-19-2024 Chloride [Moles/Vol] 103 mmol/L 98-108 [facility] Comprehensive Metabolic Prof ilon 10-19-2024 Albumin [Mass/Vol] 3.6 g/dL Normal 3.4-4.8 [facility] Comment on above: Performed By: #### L 501.080 #### [facility] [address] [place], [address] Albumin/Globulin [Mass ratio] 1.5 {ratio} Normal 0.9-2.4 [facility] Comment on above: Performed By: #### L 501.080 #### [facility] [address] [place], [address] ALK PHOS 44 U/L Normal 35-104 [facility] Comment on above: Performed By: #### L 501.080 #### [facility] [address] [place], [address] ALT [Catalytic activity/Vol] 9 U/L Normal <=34 [facility] Comment on above: Performed By: #### L 501.080 #### [facility] [address] [place], [address] AST [Catalytic activity/Vol] 24 U/L Normal <=31 [facility] Comment on above: Performed By: #### L 501.080 #### [facility] [address] [place], [address] Bilirubin [Mass/Vol] 0.42 mg/dL Normal 0.00-1.30 [facility] Comment on above: Performed By: #### L 501.080 #### [facility] [address] [place], [address] BUN/CRE 11.3 RATIO Normal 10-20 [facility] Comment on above: Performed By: #### L 501.080 #### [facility] [address] [place], [address] Calcium [Mass/Vol] 8.7 mg/dL Normal 7.6-11.0 [facility] Comment on above: Performed By: #### L 501.080 #### [facility] [address] [place], [address] Chloride [Moles/Vol] 103 mmol/L Normal 98-108 [facility] Comment on above: Performed By: #### L 501.080 #### [facility] [address] [place], [address] CO2 [Moles/Vol] 23.7 mmol/L Normal 21.0-32.0 [facility] Comment on above: Performed By: #### L 501.080 #### [facility] [address] [place], [address] Creatinine [Mass/Vol] 0.55 mg/dL Low 0.70-1.20 [facility] Comment on above: Performed By: #### L 501.080 #### [facility] [address] [place], [address] ECRCL 45.71 ml/min Low 50-250 [facility] Comment on above: Performed By: #### L 501.080 #### [facility] [address] [place], [address] GAP 10 Normal 5-15 [facility] Comment on above: Performed By: #### L 501.080 #### [facility] [address] [place], [address] GFR/1.73 sq M.predicted among non-blacks MDRD (S/P/Bld) [Vol rate/Area] 92 mL/min/{1.73_m2} Normal >60 [facility] Comment on above: Result Comment: mL/m in/1.73m2 CKD-EPI Creatinine Equation (2020) Performed By: #### L 501.080 #### [facility] [address] [place], [address] Globulin (S) [Mass/Vol] 2.4 g/dL Normal 2.2-4.2 [facility] Comment on above: Performed By: #### L 501.080 #### [facility] [address] [place], [address] Glucose [Mass/Vol] 132 mg/dL High 70-99 [facility] Comment on above: Performed By: #### L 501.080 #### [facility] [address] [place], [address] Potassium [Moles/Vol] 4.6 mmol/L Normal 3.3-5.1 [facility] Comment on above: Performed By: #### L 501.080 #### [facility] [address] [place], [place], [address] Sodium [Moles/Vol] 136 mmol/L Normal 133-145 [facility] Comment on above: Performed By: #### L 501.080 #### [facility] [address] [place], [place], [address] T PROT 6.0 g/dL Normal 5.9-8.4 [facility] Comment on above: Performed By: #### L 501.080 #### [facility] [address] [place], [place], [address] Urea nitrogen [Mass/Vol] 6 mg/dL Normal 4-19 [facility] Comment on above: Performed By: #### L 501.080 #### [facility] [address] [place], [place], [address] Eosinophil percentageOrdered By: Anali Coello on 10-19-2024 Eosinophils/100 WBC (Bld) 0.6 % 0-5 [facility] Erythrocyte distribution wid th ratioOrdered By: Anali Coello on 10-19-2024 Erythrocyte distribution width (RBC) [Ratio] 12.9 % 11.6-14.6 [facility] Erythrocyte distribution wid th standard deviationOrdered By: Anali Coello on 10-19-2024 Erythrocyte distribution width (RBC) [Ratio] 42.5 fl 35.1-43.9 [facility] Glomerular filtration rate ( GFR) estimation/1.73 sq m using serum, plasma, or whole bOrdered By: Anali Coello on 10-19-2024 GFR/1.73 sq M.predicted among non-blacks MDRD (S/P/Bld) [Vol rate/Area] 92 mL/min/{1.73_m2} >60 [facility] Comment on above: mL/min/1.73m2 CKD-EP I Creatinine Equation (2020) Hematocrit Auto (Bld) [Volum e fraction]Ordered By: Anali Coello on 10-19-2024 Hematocrit (Bld) [Volume fraction] 38.0 % 37-47 [facility] Hemoglobin measurementOrdere d By: Anali Coello on 10-19-2024 Hemoglobin (Bld) [Mass/Vol] 12.4 g/dL 12.0-15.0 [facility] Immature granulocytes/100 WB C Auto (Bld)Ordered By: Anali Coello on 10-19-2024 Immature granulocytes/100 WBC (Bld) 0.300 % 0.0-0.9 [facility] Comment on above: IG% - Immature Granu locytes (promyelocytes, myelocytes and metamyelocytes) > 1% indicates that a LEFT SHIFT is Present. Laboratory - Chemistry and C hemistry - challengeOrdered By: Anali Coello on 10-19-2024 AST [Catalytic activity/Vol] 24 U/L <32 [facility] Lactic Acidon 10-19-2024 Lactate [Moles/Vol] 1.4 mmol/L Normal 0.0-2.0 [facility] Comment on above: Performed By: #### L 501.080 #### [facility] [address] [place], [place], [address] Lactic acid measurementOrder ed By: Zoltan Garcia on 10-19-2024 Lactate [Moles/Vol] 1.4 mmol/L 0.0-2.0 [facility] MCV (mean corpuscular volume ) determinationOrdered By: Anali Coello on 10-19-2024 MCV (RBC) [Entitic vol] 90.9 fL 81-99 [facility] Magnesiumon 10-19-2024 Magnesium [Mass/Vol] 1.7 mg/dL Normal 1.5-2.2 [facility] Comment on above: Performed By: #### L 501.080 #### [facility] [address] [place], [address] Magnesium measurement (mass/ volume)Ordered By: Anali Coello on 10-19-2024 Magnesium (Unsp spec) [Mass/Vol] 1.7 mg/dL 1.5-2.2 [facility] Mean corpuscular hemoglobin (MCH) determinationOrdered By: Anali Coello on 10-19-2024 MCH (RBC) [Entitic mass] 29.7 pg 27.0-32.0 [facility] Mean corpuscular hemoglobin concentration (MCHC) determinationOrdered By: Anali Coello on 10-19-2024 MCHC (RBC) [Mass/Vol] 32.6 g/dL 32-36 [facility] Mean platelet volume determi nationOrdered By: Anali Coello on 10-19-2024 Platelet mean volume (Bld) [Entitic vol] 9.4 fL 6.2-12.0 [facility] Monocyte percentageOrdered B y: Anali Coello on 10-19-2024 Monocytes/100 WBC (Bld) 7.3 % 0-10 [facility] Neutrophil percentageOrdered By: Anali Coello on 10-19-2024 Neutrophils/100 WBC (Bld) 70.0 % 47-70 [facility] Nucleated red blood cell per centageOrdered By: Anali Coello on 10-19-2024 Nucleated RBC/100 WBC (Bld) [Ratio] 0 % 0-5 [facility] Phosphoruson 10-19-2024 Phosphate [Mass/Vol] 2.8 mg/dL Normal 2.7-4.5 [facility] Comment on above: Performed By: #### L 501.080 #### [facility] [address] [place], [place] [address] [place], [address] Platelet countOrdered By: Medina Coello on 10-19-2024 Platelets (Bld) [#/Vol] 181 10*3/uL 150-450 [facility] Potassium measurement (mass/ volume)Ordered By: Anali Coello on 10-19-2024 Potassium (Unsp spec) [Mass/Vol] 4.6 mmol/L 3.3-5.1 [facility] RBC Auto (Bld) [#/Vol]Ordere d By: Anali Coello on 10-19-2024 RBC (Bld) [#/Vol] 4.18 10*6/uL Low 4.2-5.4 [facility] Serum creatinine measurement (mass/volume)Ordered By: Anali Coello on 10-19-2024 Creatinine [Mass/Vol] 0.55 mg/dL Low 0.70-1.20 [facility] Serum globulin measurementOr dered By: Anali Coello on 10-19-2024 Globulin (S) [Mass/Vol] 2.4 g/dL 2.2-4.2 [facility] Serum glucose measurement (m ass/volume)Ordered By: Anali Coello on 10-19-2024 Glucose [Mass/Vol] 132 mg/dL High 70-99 [facility] Serum or plasma alanine rivera otransferase (ALT) measurementOrdered By: Anali Coello on 10-19-2024 ALT [Catalytic activity/Vol] 9 U/L <35 [facility] Serum or plasma albumin serge urement (mass/volume)Ordered By: Anali Coello on 10-19-2024 Albumin [Mass/Vol] 3.6 g/dL 3.4-4.8 [facility] Serum or plasma albumin/glob ulin mass ratioOrdered By: Anali Coello on 10-19-2024 Albumin/Globulin [Mass ratio] 1.5 {ratio} 0.9-2.4 [facility] Serum or plasma alkaline stephane sphatase measurementOrdered By: Anali Coello on 10-19-2024 ALP [Catalytic activity/Vol] 44 U/L 35-104 [facility] Serum or plasma calcium serge urement (mass/volume)Ordered By: Anali Coello on 10-19-2024 Calcium [Mass/Vol] 8.7 mg/dL 7.6-11.0 [facility] Serum or plasma urea nitroge n measurement (mass/volume)Ordered By: Anali Coello on 10-19-2024 Urea nitrogen [Mass/Vol] 6 mg/dL 4-19 [facility] Sodium levelOrdered By: Kayleen Coello on 10-19-2024 Sodium [Moles/Vol] 136 mmol/L 133-145 [facility] TSH DL <= 0.005 mIU/L QnOrde red By: Anali Coello on 10-19-2024 TSH Qn 1.130 uIU/mL 0.300-4.200 [facility] Thyroid Stim Hormone (TSH)on 10-19-2024 TSH 1.130 uIU/mL Normal 0.300-4.200 [facility] Comment on above: Performed By: #### L 501.080 #### [facility] [address] [place], [place], [id number] Total proteinOrdered By: Connie Coello on 10-19-2024 Protein [Mass/Vol] 6.0 g/dL 5.9-8.4 [facility] White blood cell (WBC) count Ordered By: Anali Coello on 10-19-2024 WBC (Bld) [#/Vol] 6.9 10*3/uL 4.4-11.0 [facility] Absolute lymphocyte countOrd ered By: Zoltan Garcia on 10-18-2024 Lymphocytes Auto (Unsp spec) [#/Vol] 0.94 10*3/uL 0.83-4.51 [facility] Absolute neutrophil countOrd ered By: Zoltan Garcia on 10-18-2024 Neutrophils (Bld) [#/Vol] 17.9 10*3/uL High 2.0-7.7 [facility] Anion gap in Serum or Plasma Ordered By: Zoltan Garcia on 10-18-2024 Anion gap [Moles/Vol] 17 mmol/L High 5-15 [facility] Automated lymphocyte count a s percentage of total leukocytesOrdered By: Zoltan Garcia on 10-18-2024 Lymphocytes/100 WBC Auto (Unsp spec) 4.7 % Low 19-41 [facility] BUN/creatinine ratioOrdered By: Zoltan Garcia on 10-18-2024 Urea nitrogen/Creatinine [Mass ratio] 17.1 mg/mg 10-20 [facility] Basophil percentageOrdered B y: Zoltan Garcia on 10-18-2024 Basophils/100 WBC (Bld) 0.3 % 0-1 [facility] Bedside Glucoseon 10-18-2024 FINGERSTICK GLU 129 mg/dL High 74-106 [facility] Comment on above: Result Comment: JEWELS RAJPUT OF PATIENT CARE PER NURSING PROTOCOL Performed By: #### L 501.080 #### [facility] [address] [place], [address] FINGERSTICK GLU 119 mg/dL High 74-106 [facility] Comment on above: Result Comment: JEWELS GEMENT OF PATIENT CARE PER NURSING PROTOCOL Performed By: #### L 501.080 #### [facility] [address] [place], [address] FINGERSTICK GLU 98 mg/dL Normal 74-106 [facility] Comment on above: Result Comment: JEWELS GEMENT OF PATIENT CARE PER NURSING PROTOCOL Performed By: #### L 501.080 #### [facility] [address] [place], [address] FINGERSTICK GLU 72 mg/dL Low 74-106 [facility] Comment on above: Result Comment: JEWELS GEMENT OF PATIENT CARE PER NURSING PROTOCOL Performed By: #### L 501.080 #### [facility] [address] [place], [address] FINGERSTICK GLU 82 mg/dL Normal 74-106 [facility] Comment on above: Result Comment: JEWELS GEMENT OF PATIENT CARE PER NURSING PROTOCOL Performed By: #### L 501.080 #### [facility] [address] [place], [address] Bilirubin Test strip Ql (U)O rdered By: Zolatn Garcia on 10-18-2024 Bilirubin Ql (U) Negative Negative [facility] Bilirubin, totalOrdered By: Zoltan Garcia on 10-18-2024 Bilirubin [Mass/Vol] 0.33 mg/dL 0.00-1.30 [facility] Blood cultureOrdered By: Jackson Garcia on 10-18-2024 Bacteria identified Cx Nom (Bld) No growth in 5 days. [facility] Bacteria identified Cx Nom (Bld) No growth in 5 days. [facility] Brain/Head without Contrasto n 10-18-2024 Brain/Head without Contrast [facility] Imaging Services [address] [place] [address] Brain/Head without Contrast MR#: [id number] Acct: [id number] Name: JUSTUS CHINCHILLA Rep #: [id number] : 1940 F 84 From: Jorge Zurita PCP: Dr. Donato Sepulveda MD Status: REG ER Study: Brain/Head without Contrast Date of Exam: 10/04 09/27 Exam# [id number] Ordering Dr: Zoltan Garcia DO PROCEDURE: BRAIN/HEAD [...] hydrocephalus or significant midline shift. There is bskt-va-[id number] chronic microvascular ischemic changes and bmpw-na-kefysbqh parenchymal volume loss. No acute, depressed calvarial fractures. Mild anterior frontal scalp swelling. Bilateral lens surgeries. CT/Brain/Head without Contrast IMPRESSION: No acute intracranial process. Mild anterior frontal scalp swelling. No acute calvarial defect. Reading Location: [facility] CC: Dr. Zoltan Garcia DO; Dr. Donato Sepulveda MD [employer] Electrical Engineer: Signed Normal [facility] CBC W/Diff, Automatedon 10-04 Absolute Lymph 0.94 X10 3/uL Normal 0.83-4.51 [facility] Comment on above: Performed By: #### L 501.080 #### [facility] [address] [place], [address] Absolute Neut 17.9 X10 3/uL High 2.0-7.7 [facility] Comment on above: Performed By: #### L 501.080 #### [facility] [address] [place], [address] Basophils/100 WBC (Bld) 0.3 % Normal 0-1 [facility] Comment on above: Performed By: #### L 501.080 #### [facility] [address] [place], [address] Eosinophils/100 WBC (Bld) 0.1 % Normal 0-5 [facility] Comment on above: Performed By: #### L 501.080 #### [facility] [address] [place], [address] Erythrocyte distribution width (RBC) [Ratio] 12.9 % Normal 11.6-14.6 [facility] Comment on above: Performed By: #### L 501.080 #### [facility] [address] [place], [address] Hematocrit (Bld) [Volume fraction] 48.0 % High 37-47 [facility] Comment on above: Performed By: #### L 501.080 #### [facility] [address] [place], [address] Hemoglobin (Bld) [Mass/Vol] 15.5 g/dL High 12.0-15.0 [facility] Comment on above: Performed By: #### L 501.080 #### [facility] [address] [place], [address] IG% 0.700 Normal 0.0-0.9 [facility] Comment on above: Result Comment: IG% - Immature Granulocytes (promyelocytes, myelocytes and metamyelocytes) > 1% indicates that a LEFT SHIFT is Present. Performed By: #### L 501.080 #### [facility] [address] [place], [address] Lymphocytes/100 WBC (Bld) 4.7 % Low 19-41 [facility] Comment on above: Performed By: #### L 501.080 #### [facility] [address] [place], [address] MCH (RBC) [Entitic mass] 29.4 pg Normal 27.0-32.0 [facility] Comment on above: Performed By: #### L 501.080 #### [facility] [address] [place], [address] MCHC (RBC) [Mass/Vol] 32.3 g/dL Normal 32-36 [facility] Comment on above: Performed By: #### L 501.080 #### [facility] [address] [place], [address] MCV (RBC) [Entitic vol] 90.9 fL Normal 81-99 [facility] Comment on above: Performed By: #### L 501.080 #### [facility] [address] [place], [address] Monocytes/100 WBC (Bld) 4.8 % Normal 0-10 [facility] Comment on above: Performed By: #### L 501.080 #### [facility] [address] [place], [address] Neutrophils/100 WBC (Bld) 89.4 % High 47-70 [facility] Comment on above: Performed By: #### L 501.080 #### [facility] [address] [place], [address] Nucleated RBC (Bld) [#/Vol] 0 10*3/uL Normal 0-5 [facility] Comment on above: Performed By: #### L 501.080 #### [facility] [address] [place], [address] Platelet mean volume (Bld) [Entitic vol] 10.2 fL Normal 6.2-12.0 [facility] Comment on above: Performed By: #### L 501.080 #### [facility] [address] [place], [address] Platelets (Bld) [#/Vol] 326 10*3/uL Normal 150-450 [facility] Comment on above: Performed By: #### L 501.080 #### [facility] [address] [place], [address] RBC (Bld) [#/Vol] 5.28 10*6/uL Normal 4.2-5.4 [facility] Comment on above: Performed By: #### L 501.080 #### [facility] [address] [place], [address] RDW SD 43.0 fl Normal 35.1-43.9 [facility] Comment on above: Performed By: #### L 501.080 #### [facility] [address] [place], [address] WBC (Bld) [#/Vol] 20.0 10*3/uL High 4.4-11.0 [facility] Comment on above: Performed By: #### L 501.080 #### [facility] [address] [place], [address] Carbon dioxide, total [Moles /volume] in Central venous bloodOrdered By: Zoltan Garcia on 10-18-2024 CO2 [Moles/Vol] 24.5 mmol/L 21.0-32.0 [facility] Chloride assayOrdered By: Bin Garcia on 10-18-2024 Chloride [Moles/Vol] 102 mmol/L 98-108 [facility] Emergency Department Summary on 10-18-2024 Emergency Department Summary [facility] Medical Records Department [address] [place] [address] Emergency Department Summary 10/18/24 MR#: [id number] Acct: [id number] Name: JUSTUS CHINCHILLA Rep #: [id number] : 1940 84 From: Zoltan Garcia DO PCP: Dr. Donato Sepulveda MD Status:ADM IN Location: [place] [id number] HPI HPI - Fall History of Present [...] takes oral hypoglycemics as well as insulin. [facility] Medical History (Updated 10/18/24 @ [...] History (Revie (more content not included)... Normal [facility] Eosinophil percentageOrdered By: Zoltan Garcia on 10-18-2024 Eosinophils/100 WBC (Bld) 0.1 % 0-5 [facility] Erythrocyte distribution wid th ratioOrdered By: Zoltan Garcia on 10-18-2024 Erythrocyte distribution width (RBC) [Ratio] 12.9 % 11.6-14.6 [facility] Erythrocyte distribution wid th standard deviationOrdered By: Zoltan Garcia on 10-18-2024 Erythrocyte distribution width (RBC) [Ratio] 43.0 fl 35.1-43.9 [facility] Glomerular filtration rate ( GFR) estimation/1.73 sq m using serum, plasma, or whole bOrdered By: Zoltan Garcia on 10-18-2024 GFR/1.73 sq M.predicted among non-blacks MDRD (S/P/Bld) [Vol rate/Area] 88 mL/min/{1.73_m2} >60 [facility] Comment on above: mL/min/1.73m2 CKD-EP I Creatinine Equation (2020) [facility] By: Anali Coello on 10-18-2024 Glucose [Mass/Vol] 129 mg/dL High 74-106 [facility] Comment on above: MANAGEMENT OF PATIEN T CARE PER NURSING PROTOCOL H AND P Exam - Hospitaliston 10-18-2024 H&P Exam - Hospitalist [facility] Medical Records Department [address] [place] [address] H P Exam - Hospitalist 10/18/242107 MR#: [id number] Acct: [id number] Name: JUSTUS CHINCHILLA Rep #: [id number] : 1940 84 From: Anali Coello DO PCP: Dr. Donato Sepulveda MD Status:ADM IN Location: [place] [id number] HPI - General General Date of Admission: 10/18/24 Date of Service: 10/18/24 Chief Complaint: Fall/altered mental status HPI Narrative JUSTUS CHINCHILLA, is a 84 F who presented to the emergency department at [facility] on 10/18/2024 with chief complaint of head [...] she was close to her baseline mentation. [facility] Medical History (Updated 10/18/24 @ [...] H i (more content not included)... Normal [facility] Hematocrit Auto (Bld) [Volum e fraction]Ordered By: Zoltan Garcia on 10-18-2024 Hematocrit (Bld) [Volume fraction] 48.0 % High 37-47 [facility] Hemoglobin measurementOrdere d By: Zoltan Garcia on 10-18-2024 Hemoglobin (Bld) [Mass/Vol] 15.5 g/dL High 12.0-15.0 [facility] Immature granulocytes/100 WB C Auto (Bld)Ordered By: Zoltan Garcia on 10-18-2024 Immature granulocytes/100 WBC (Bld) 0.700 % 0.0-0.9 [facility] Comment on above: IG% - Immature Granu locytes (promyelocytes, myelocytes and metamyelocytes) > 1% indicates that a LEFT SHIFT is Present. International normalized rat io (INR) calculationOrdered By: Zoltan Garcia on 10-18-2024 INR Coag (Bld) [Relative time] 1.0 {INR} [facility] Ketones Test strip Ql (U)Ord ered By: Zoltan Garcia on 10-18-2024 Ketones Ql (U) Negative Negative [facility] - Chemistry and C hemistry - challengeOrdered By: Zoltan Garcia on 10-18-2024 AST [Catalytic activity/Vol] 34 U/L High <32 [facility] Lactic Acidon 10-18-2024 Lactate [Moles/Vol] 2.8 mmol/L Invalid Interpretation Code 0.0-2.0 [facility] Comment on above: Order Comment: Y Result Comment: Crit ical Result(s) Called at: 2123 by:??REKHA GARCIA TO ISAAC LEMUS Results read back by same. Performed By: #### L 501.080 #### [facility] [place], [address] Lactic acid measurementOrder ed By: Zoltan Garcia on 10-18-2024 Lactate [Moles/Vol] 2.8 mmol/L High 0.0-2.0 [facility] Comment on above: Critical Result(s) C alled at: 2123 by: REKHA GARCIA TO ISAAC LEMUS Results read back by same. MCV (mean corpuscular volume ) determinationOrdered By: Zoltan Garcia on 10-18-2024 MCV (RBC) [Entitic vol] 90.9 fL 81-99 [facility] Mean corpuscular hemoglobin (MCH) determinationOrdered By: Zoltan Garcia on 10-18-2024 MCH (RBC) [Entitic mass] 29.4 pg 27.0-32.0 [facility] Mean corpuscular hemoglobin concentration (MCHC) determinationOrdered By: Zoltan Garcia on 10-18-2024 MCHC (RBC) [Mass/Vol] 32.3 g/dL 32-36 [facility] Mean platelet volume determi nationOrdered By: Zoltan Garcia on 10-18-2024 Platelet mean volume (Bld) [Entitic vol] 10.2 fL 6.2-12.0 [facility] Microscopic analysis of urin e for red blood cells (RBC)Ordered By: Zoltan Garcia on 10-18-2024 Microscopic analysis of urine for red blood cells (RBC) 0 SEEN /hpf 0-5 [facility] Monocyte percentageOrdered B y: Zoltan Garcia on 10-18-2024 Monocytes/100 WBC (Bld) 4.8 % 0-10 [facility] Mucus LM Ql (Urine sed)Order ed By: Zoltan Garcia on 10-18-2024 Mucus Ql (Urine sed) 0 SEEN /hpf [facility] Neutrophil percentageOrdered By: Zoltan Garcia on 10-18-2024 Neutrophils/100 WBC (Bld) 89.4 % High 47-70 [facility] Nitrite Test strip Ql (U)Ord ered By: Zoltan Garcia on 10-18-2024 Nitrite Ql (U) Positive High Negative [facility] Nucleated red blood cell per centageOrdered By: Zoltan Garcia on 10-18-2024 Nucleated RBC/100 WBC (Bld) [Ratio] 0 % 0-5 [facility] Platelet countOrdered By: Bin Garcia on 10-18-2024 Platelets (Bld) [#/Vol] 326 10*3/uL 150-450 [facility] Potassium measurement (mass/ volume)Ordered By: Zoltan Garcia on 10-18-2024 Potassium (Unsp spec) [Mass/Vol] 3.2 mmol/L Low 3.3-5.1 [facility] Protein Test strip Ql (U)Ord ered By: Zoltan Garcia on 10-18-2024 Protein Ql (U) 30 mg/dl High Negative [facility] Prothrombin Time w/INRon INR Coag (PPP) [Relative time] 1.0 {INR} Normal [facility] Comment on above: Performed By: #### L 501.080 #### [facility] [address] [place], [address] PT Coag (PPP) [Time] 13.4 s Normal 11.7-14.9 [facility] Comment on above: Performed By: #### L 501.080 #### [facility] [address] [place], [address] Prothrombin timeOrdered By: Zoltan Garcia on 10-18-2024 PT Coag (PPP) [Time] 13.4 s 11.7-14.9 [facility] RBC Auto (Bld) [#/Vol]Ordere d By: Zoltan Garcia on 10-18-2024 RBC (Bld) [#/Vol] 5.28 10*6/uL 4.2-5.4 [facility] Serum creatinine measurement (mass/volume)Ordered By: Zoltan Garcia on 10-18-2024 Creatinine [Mass/Vol] 0.64 mg/dL Low 0.70-1.20 [facility] Serum globulin measurementOr dered By: Zoltan Garcia on 10-18-2024 Globulin (S) [Mass/Vol] 3.3 g/dL 2.2-4.2 [facility] Serum glucose measurement (m ass/volume)Ordered By: Zoltan Garcia on 10-18-2024 Glucose [Mass/Vol] 16 mg/dL Invalid Interpretation Code 70-99 [facility] Comment on above: Critical Result(s) C alled at: by: Results read back by same. Critical Result(s) Called at: 1854 by: REKHA GARCIA TO ERIN RUSSO Results read back by same.Previous reported result: 16 mg/dLEdited by: GINA on 10/18/24:2200 AMENDED REPORT [id number] GLU previously reported as: [...] same. Performed By: #### L 501.080 #### [facility] [address] [place] [address]. [place], [address] Serum or plasma alanine rivera otransferase (ALT) measurementOrdered By: Zoltan Garcia on 10-18-2024 ALT [Catalytic activity/Vol] 13 U/L <35 [facility] Serum or plasma albumin serge urement (mass/volume)Ordered By: Zoltan Garcia on 10-18-2024 Albumin [Mass/Vol] 4.7 g/dL 3.4-4.8 [facility] Serum or plasma albumin/glob ulin mass ratioOrdered By: Zoltan Garcia on 10-18-2024 Albumin/Globulin [Mass ratio] 1.4 {ratio} 0.9-2.4 [facility] Serum or plasma alkaline stephane sphatase measurementOrdered By: Zoltan Garcia on 10-18-2024 ALP [Catalytic activity/Vol] 60 U/L 35-104 [facility] Serum or plasma calcium serge urement (mass/volume)Ordered By: Zoltan Garcia on 10-18-2024 Calcium [Mass/Vol] 10.0 mg/dL 7.6-11.0 [facility] Serum or plasma urea nitroge n measurement (mass/volume)Ordered By: Zoltan Garcia on 10-18-2024 Urea nitrogen [Mass/Vol] 11 mg/dL 4-19 [facility] Sodium levelOrdered By: Bebo Garcia on 10-18-2024 Sodium [Moles/Vol] 143 mmol/L 133-145 [facility] Squamous epithelial cells de tection in urine sediment by light microscopyOrdered By: Zoltan Garcia on 10-18-2024 Epithelial cells.squamous LM Ql (Urine sed) 0-5 SEEN /hpf 5-10 [facility] Total proteinOrdered By: Jackson Garcia on 10-18-2024 Protein [Mass/Vol] 8.0 g/dL 5.9-8.4 [facility] Urinalysis, Completeon 10-18 BACTERIA 4+ /hpf Normal None Seen [facility] Comment on above: Order Comment: ABEBE TER SPECIMEN Performed By: #### L 400.0001 #### [facility] [address] [place], [address] EPI,SQUAMOUS 0-5 SEEN Normal 5-10 [facility] Comment on above: Order Comment: ABEBE TER SPECIMEN Performed By: #### L [id number] #### [facility] [address] [place], [address] WBC 10-25 SEEN Normal 0-5 [facility] Comment on above: Order Comment: ABEBE TER SPECIMEN Performed By: #### L [id number] #### [facility] [address] [place], [place], [id number] Mucus Ql (Urine sed) 0 SEEN Normal [facility] Comment on above: Order Comment: ABEBE TER SPECIMEN Performed By: #### L [id number] #### [facility] [address] [place], [address] RBC 0 SEEN Normal 0-5 [facility] Comment on above: Order Comment: ABEBE TER SPECIMEN Performed By: #### L 400.0001 #### [facility] [address] [place], [place], [id number] Urine clarityOrdered By: Jackson Garcia on 10-18-2024 Clarity (U) Clear Clear [facility] Urine color determinationOrd ered By: Zoltan Garcia on 10-18-2024 Color (U) Yellow Yellow [facility] Urine cultureOrdered By: Jackson Garcia on 10-18-2024 Bacteria identified Cx Nom (U) Escherichia coli Abnormal [facility] Urine glucose detectionOrder ed By: Zoltan Garcia on 10-18-2024 Glucose Ql (U) 1000 mg/dl High Normal [facility] Urine leukocyte esterase det ection by dipstickOrdered By: Zoltan Garcia on 10-18-2024 Leukocyte esterase Test strip Ql (U) 25 /ul High Negative [facility] Urine pHOrdered By: Zoltan vela on 10-18-2024 pH (U) 6.5 [pH] 5.0 - 8.0 [facility] Urine sediment bacteria coun t by microscopy (number/high power field)Ordered By: Zoltan Garcia on 10-18-2024 Bacteria LM.HPF (Urine sed) [#/Area] 4 /[HPF] None Seen [facility] Urine specific gravity measu rementOrdered By: Zoltan Garcia on 10-18-2024 Specific gravity (U) [Rel density] 1.015 1.002-1.030 [facility] Urine urobilinogen measureme ntOrdered By: Zoltan Garcia on 10-18-2024 Urobilinogen Ql (U) Normal mg/dl Normal [facility] White blood cell (WBC) count Ordered By: Zoltan Garcia on 10-18-2024 WBC (Bld) [#/Vol] 20.0 10*3/uL High 4.4-11.0 [facility] White blood cell countOrdere d By: Zoltan Garcia on 10-18-2024 White blood cell count 10-25 SEEN /hpf 0-5 [facility] Anion gap in Serum or Plasma Ordered By: Donato Sepulveda on 10-06-2024 Anion gap [Moles/Vol] 10 mmol/L 5-15 [facility] BUN/creatinine ratioOrdered By: Donato Sepulveda on 10-06-2024 Urea nitrogen/Creatinine [Mass ratio] 21.9 mg/mg High 10-20 [facility] Bilirubin directOrdered By: Donato Sepulveda on 10-06-2024 Bilirubin.direct [Mass/Vol] 0.11 mg/dL 0.00-0.30 [facility] Bilirubin, totalOrdered By: Donato Sepulveda on 10-06-2024 Bilirubin [Mass/Vol] 0.24 mg/dL 0.00-1.30 [facility] Calculated very low density lipoprotein (VLDL) cholesterol measurementOrdered By: Donato Sepulveda on 10-06-2024 Calculated very low density lipoprotein (VLDL) cholesterol measurement 14 mg/dL 5-40 [facility] Carbon dioxide, total [Moles /volume] in Central venous bloodOrdered By: Donato Sepulveda on 10-06-2024 CO2 [Moles/Vol] 29.2 mmol/L 21.0-32.0 [facility] Chloride assayOrdered By: Livier Sepulveda on 10-06-2024 Chloride [Moles/Vol] 99 mmol/L 98-108 [facility] Erythrocyte distribution wid th ratioOrdered By: Donato Sepulveda on 10-06-2024 Erythrocyte distribution width (RBC) [Ratio] 12.8 % 11.6-14.6 [facility] Erythrocyte distribution wid th standard deviationOrdered By: Donato Sepulveda on 10-06-2024 Erythrocyte distribution width (RBC) [Ratio] 43.8 fl 35.1-43.9 [facility] Glomerular filtration rate ( GFR) estimation/1.73 sq m using serum, plasma, or whole bOrdered By: Donato Sepulveda on 10-06-2024 GFR/1.73 sq M.predicted among non-blacks MDRD (S/P/Bld) [Vol rate/Area] 79 mL/min/{1.73_m2} >60 [facility] Comment on above: mL/min/1.73m2 CKD-EP I Creatinine Equation (2020) Hematocrit Auto (Bld) [Volum e fraction]Ordered By: Donato Sepulveda on 10-06-2024 Hematocrit (Bld) [Volume fraction] 37.1 % 37-47 [facility] Hemoglobin A1c percentageOrd ered By: Donato Sepulveda on 10-06-2024 HbA1c (Bld) [Mass fraction] 9.5 % High <5.7 [facility] Comment on above: Normal < 5.7 % Predi abetic 5.7 - 6.4 % Diabetic >or= 6.5 % Please note range changes. Hemoglobin measurementOrdere d By: Donato Sepulveda on 10-06-2024 Hemoglobin (Bld) [Mass/Vol] 11.9 g/dL Low 12.0-15.0 [facility] LDL calc ser/plasOrdered By: Donato Sepulveda on 10-06-2024 Cholesterol in LDL [Mass/Vol] 92 mg/dL [facility] Comment on above: Pfeqqkfpfw=552-185 m g/dL & Higher Nnfw=068 mg/dL or greater Laboratory - Chemistry and C hemistry - challengeOrdered By: Donato Sepulveda on 10-06-2024 AST [Catalytic activity/Vol] 19 U/L <32 [facility] MCV (mean corpuscular volume ) determinationOrdered By: Donato Sepulveda on 10-06-2024 MCV (RBC) [Entitic vol] 92.8 fL 81-99 [facility] Mean corpuscular hemoglobin (MCH) determinationOrdered By: Donato Sepulveda on 10-06-2024 MCH (RBC) [Entitic mass] 29.8 pg 27.0-32.0 [facility] Mean corpuscular hemoglobin concentration (MCHC) determinationOrdered By: Donato Sepulveda on 10-06-2024 MCHC (RBC) [Mass/Vol] 32.1 g/dL 32-36 [facility] Mean platelet volume determi nationOrdered By: Donato Sepulveda on 10-06-2024 Platelet mean volume (Bld) [Entitic vol] 10.8 fL 6.2-12.0 [facility] Platelet countOrdered By: Livier Sepulveda on 10-06-2024 Platelets (Bld) [#/Vol] 182 10*3/uL 150-450 [facility] Potassium measurement (mass/ volume)Ordered By: Donato Sepulveda on 10-06-2024 Potassium (Unsp spec) [Mass/Vol] 4.3 mmol/L 3.3-5.1 [facility] RBC Auto (Bld) [#/Vol]Ordere d By: Donato Sepulveda on 10-06-2024 RBC (Bld) [#/Vol] 4.00 10*6/uL Low 4.2-5.4 [facility] Screening total cholesterol/ high density lipoprotein (HDL) cholesterol ratioOrdered By: Donato Sepulveda on 10-06-2024 Cholesterol.total/Gabby sterol in HDL [Mass ratio] 2.80 {ratio} [facility] Serum creatinine measurement (mass/volume)Ordered By: Donato Sepulveda on 10-06-2024 Creatinine [Mass/Vol] 0.75 mg/dL 0.70-1.20 [facility] Serum globulin measurementOr dered By: Donato Sepulveda on 10-06-2024 Globulin (S) [Mass/Vol] 2.3 g/dL 2.2-4.2 [facility] Serum glucose measurement (m ass/volume)Ordered By: Donato Sepulveda on 10-06-2024 Glucose [Mass/Vol] 232 mg/dL High 70-99 [facility] Serum or plasma alanine rivera otransferase (ALT) measurementOrdered By: Donato Sepulveda on 10-06-2024 ALT [Catalytic activity/Vol] 8 U/L <35 [facility] Serum or plasma albumin serge urement (mass/volume)Ordered By: Donato Sepulveda on 10-06-2024 Albumin [Mass/Vol] 3.7 g/dL 3.4-4.8 [facility] Serum or plasma alkaline stephane sphatase measurementOrdered By: Donato Sepulveda on 10-06-2024 ALP [Catalytic activity/Vol] 50 U/L 35-104 [facility] Serum or plasma calcium serge urement (mass/volume)Ordered By: Donato Sepulveda on 10-06-2024 Calcium [Mass/Vol] 9.1 mg/dL 7.6-11.0 [facility] Serum or plasma cholesterol in HDL measurement (mass/volume)Ordered By: Donato Sepulveda on 10-06-2024 Cholesterol in HDL [Mass/Vol] 59 mg/dL >40 [facility] Comment on above: National Cholesterol Education Program (NCEP) guidelines:<40 mg/dL: Low HDL-cholesterol (major risk factor for CHD)>= 60 mg/dL: High HDL-cholesterol (negative risk factor for CHD)HDL-cholesterol is affected by a number of factors, e.g. smoking, exercise, hormones, sex and age. Serum or plasma cholesterol measurement (mass/volume)Ordered By: Donato Sepulveda on 10-06-2024 Cholesterol [Mass/Vol] 164 mg/dL <201 [facility] Comment on above: Cholesterol level, D esirable <200 mg/dLBorderline high cholesterol 200-239 mg/dLHigh cholesterol >=240 mg/dLRecommendations of the NCEP Adult Treatment Panel for the following risk-cutoff thresholds for the [place] population. Serum or plasma urea nitroge n measurement (mass/volume)Ordered By: Donato Sepulveda on 10-06-2024 Urea nitrogen [Mass/Vol] 16 mg/dL 4-19 [facility] Sodium levelOrdered By: Raul Sepulveda on 10-06-2024 Sodium [Moles/Vol] 138 mmol/L 133-145 [facility] Total proteinOrdered By: Sherwin Sepulveda on 10-06-2024 Protein [Mass/Vol] 6.0 g/dL 5.9-8.4 [facility] Triglycerides measurementOrd ered By: Donato Sepulveda on 10-06-2024 Triglyceride [Mass/Vol] 68 mg/dL <199 [facility] Comment on above: The drugs N-Acetylcy steine and Metamizole may falsely depress this assay. Normal range: <150 mg/dLBorderline High: 150-199 mg/dLHigh: 200-499 mg/dLVery High: >500 mg/dL White blood cell (WBC) count Ordered By: Donato Sepulveda on 10-06-2024 WBC (Bld) [#/Vol] 7.1 10*3/uL 4.4-11.0 [facility] Hemoglobin A1c percentageOrd ered By: Donato Sepulveda on 09-08-2024 HbA1c (Bld) [Mass fraction] 8.8 % High <5.7 [facility] Comment on above: Normal < 5.7 % Predi abetic 5.7 - 6.4 % Diabetic >or= 6.5 % Please note range changes. Bedside Glucoseon 08-24-2024 FINGERSTICK GLU 240 mg/dL High 74-106 [facility] Comment on above: Result Comment: JEWELS RAJPUT OF PATIENT CARE PER NURSING PROTOCOL Performed By: #### L 501.080 #### [facility] [address] [facility]. [place], [place], [address] Fluoro Guided Needle Placeme nton 08-24-2024 Fluoro Guided Needle Placement [facility] Imaging Services [address] [place], [place] [address] Fluoro Guided Needle Placement MR#: [id number] Acct: [id number] Name: RENÉEJUSTUS M Rep #: [id number] : 1940 F 84 From: Tomi metz MD PCP: Dr. Donato Sepulveda MD Status: [facility] Study: Fluoro Guided Needle Placement Date of Exam: 0 08/24/24 Exam# [id number] Ordering Dr: Armando Rich MD PROCEDURE: FLUORO GUIDED NEEDLE PLACEMENT 08/24/2024 REASON FOR EXAM: RT KNEE INJECTION TECHNIQUE: Intraoperative fluoroscopic services provided for right knee injection. 5.1 seconds of fluoroscopy. 0.85 mGy. 4 images were taken. COMPARISON: None FINDINGS: Intraoperative fluoroscopic services for knee injection. RAD/Fluoro Guided Needle Placement IMPRESSION: Fluoroscopic services provided for right knee injection. Reading Location: [place] [address] CC: Dr. Donato Sepulveda MD; Dr. Armando Rich MD Avionics Electrical Engineer: Signed Normal [facility] Glucose measurement at [facility] deOrdered By: Armando Rich on 08-24-2024 Bedside Glucose ([facility] Panel) 240 mg/dL High 74-106 [facility] Comment on above: MANAGEMENT OF PATIEN T CARE PER NURSING PROTOCOL Glucose [Mass/Vol] 240 mg/dL High 74-106 [facility] Comment on above: MANAGEMENT OF PATIEN T CARE PER NURSING PROTOCOL Operative Reporton Operative Report [facility] Medical Records Department [address] [place] [address] Operative Report 08/24/24 0932 MR#: [id number] Acct: [id number] Name: JUSTUS CHINCHILLA Rep #: [id number] : 1940 84 From: Armando Rich MD PCP: Dr. Donato Sepulveda MD Status:[facility] Location: [place] [address] Operative Report (Standard) Operative Information Date of Procedure: 08/24/24 Pre-Operative Diagnosis: Osteoarthritis of the right knee, chronic postoperative knee pain Post-Operative Diagnosis: Osteoarthritis of the right knee, chronic postoperative knee pain Surgery/Procedure Performed: Right knee superior medial/superior lateral/inferior medial genicular nerves steroid injection under fluoroscopic guidance cigar head perforator: No Type of Anesthesia: Local RN Documented Start/Stop Times: Operation Date: 08/24/24 09:20 Case Time Into Pre-Op 08/24/24 08:32 Into Room 08/24/24 09:18 Procedure Start 08/24/24 09:24 Procedure End 08/24/24 09:28 Out of Room 08/24/24 09:30 Procedure Start Time: :33 Procedure Stop Time: :33 Select all DRAINS/GRAFTS/IMPLA NTS that apply: None [...] None VTE Pharm Prophylaxis ordered?: No 08/24/24 6931 Cosigner Signature (if applicable): CC: PALOMA Schneider; Dr. Donato Sepulveda MD; Dr. Armando Rich MD Signed Normal [facility] Absolute lymphocyte countOrd ered By: Donato Sepulveda on 07-15-2024 Lymphocytes Auto (Unsp spec) [#/Vol] 1.27 10*3/uL 0.83-4.51 [facility] Absolute neutrophil countOrd ered By: Donato Sepulveda on 07-15-2024 Neutrophils (Bld) [#/Vol] 4.2 10*3/uL 2.0-7.7 [facility] Anion gap in Serum or Plasma Ordered By: Donato Sepulveda on 07-15-2024 Anion gap [Moles/Vol] 12 mmol/L 5-15 [facility] Automated lymphocyte count a s percentage of total leukocytesOrdered By: Donato Sepulveda on 07-15-2024 Lymphocytes/100 WBC Auto (Unsp spec) 21.1 % 19-41 [facility] BUN/creatinine ratioOrdered By: Donato Sepulveda on 07-15-2024 Urea nitrogen/Creatinine [Mass ratio] 17.5 mg/mg 10-20 [facility] Basophil percentageOrdered B y: Donato Sepulveda on 07-15-2024 Basophils/100 WBC (Bld) 0.5 % 0-1 [facility] Bilirubin Test strip Ql (U)O rdered By: Donato Sepulveda on 07-15-2024 Bilirubin Ql (U) Negative Negative [facility] Bilirubin, totalOrdered By: Donato Sepulveda on 07-15-2024 Bilirubin [Mass/Vol] 0.31 mg/dL 0.00-1.30 [facility] Carbon dioxide, total [Moles /volume] in Central venous bloodOrdered By: Donato Sepulveda on 07-15-2024 CO2 [Moles/Vol] 28.3 mmol/L 21.0-32.0 [facility] Chloride assayOrdered By: Livier Sepulveda on 07-15-2024 Chloride [Moles/Vol] 98 mmol/L 98-108 [facility] Eosinophil percentageOrdered By: Donato Sepulveda on 07-15-2024 Eosinophils/100 WBC (Bld) 1.7 % 0-5 [facility] Erythrocyte distribution wid th (RBC) [Ratio]Ordered By: Donato Sepulveda on 07-15-2024 Erythrocyte distribution width (RBC) [Entitic vol] 43.9 fL 35.1-43.9 [facility] Erythrocyte distribution wid th ratioOrdered By: Donato Sepulveda on 07-15-2024 Erythrocyte distribution width (RBC) [Ratio] 13.2 % 11.6-14.6 [facility] Erythrocyte distribution wid th standard deviationOrdered By: Donato Sepulveda on 07-15-2024 Erythrocyte distribution width (RBC) [Ratio] 43.9 fl 35.1-43.9 [facility] GFR/1.73 sq M.predicted maxime g non-blacks MDRD (S/P/Bld) [Vol rate/Area]Ordered By: Donato Sepulveda on 07-15-2024 Estimated GFR (MDRD) Non-Af Amer 88 >60 [facility] Comment on above: mL/min/1.73m2 CKD-EP I Creatinine Equation (2020) Glomerular filtration rate ( GFR) estimation/1.73 sq m using serum, plasma, or whole bOrdered By: Donato Sepulveda on 07-15-2024 GFR/1.73 sq M.predicted among non-blacks MDRD (S/P/Bld) [Vol rate/Area] 88 mL/min/{1.73_m2} >60 [facility] Comment on above: mL/min/1.73m2 CKD-EP I Creatinine Equation (2020) Glucose Ql (U)Ordered By: Livier Sepulveda on 07-15-2024 Glucose (U) [Mass/Vol] 1000 mg/dL High Normal [facility] Hematocrit Auto (Bld) [Volum e fraction]Ordered By: Donato Sepulveda on 07-15-2024 Hematocrit (Bld) [Volume fraction] 38.9 % 37-47 [facility] Hemoglobin measurementOrdere d By: Donato Sepulveda on 07-15-2024 Hemoglobin (Bld) [Mass/Vol] 12.6 g/dL 12.0-15.0 [facility] Immature granulocytes/100 WB C Auto (Bld)Ordered By: Donato Sepulveda on 07-15-2024 Immature granulocytes/100 WBC (Bld) 0.200 % 0.0-0.9 [facility] Comment on above: IG% - Immature Granu locytes (promyelocytes, myelocytes and metamyelocytes) > 1% indicates that a LEFT SHIFT is Present. Ketones Test strip Ql (U)Ord ered By: Rauldyanchar Lombardirjnoris on 07-15-2024 Ketones Ql (U) Negative Negative [facility] - Chemistry and C hemistry - challengeOrdered By: Donato Sepulveda on 07-15-2024 AST [Catalytic activity/Vol] 18 U/L <32 [facility] Lymphocytes Auto (Unsp spec) [#/Vol]Ordered By: Livierbalaji Sepulveda on 07-15-2024 Lymphocytes (Bld) [#/Vol] 1.27 10*3/uL 0.83-4.51 [facility] Lymphocytes/100 WBC Auto (Un sp spec)Ordered By: Donato Lombardirjnoris on 07-15-2024 Lymphocytes/100 WBC (Bld) 21.1 % 19-41 [facility] MCV (mean corpuscular volume ) determinationOrdered By: Donato Sepulveda on 07-15-2024 MCV (RBC) [Entitic vol] 91.3 fL 81-99 [facility] Mean corpuscular hemoglobin (MCH) determinationOrdered By: stuameniachar Sepulveda on 07-15-2024 MCH (RBC) [Entitic mass] 29.6 pg 27.0-32.0 [facility] Mean corpuscular hemoglobin concentration (MCHC) determinationOrdered By: stuameniachar Sepulveda on 07-15-2024 MCHC (RBC) [Mass/Vol] 32.4 g/dL 32-36 [facility] Mean platelet volume determi nationOrdered By: Livierbalaji Sepulveda on 07-15-2024 Platelet mean volume (Bld) [Entitic vol] 10.7 fL 6.2-12.0 [facility] Monocyte percentageOrdered B y: Donato Sepulveda on 07-15-2024 Monocytes/100 WBC (Bld) 7.5 % 0-10 [facility] Neutrophil percentageOrdered By: Donato Sepulveda on 07-15-2024 Neutrophils/100 WBC (Bld) 69.0 % 47-70 [facility] Nitrite Test strip Ql (U)Ord ered By: Rauldyanchar Lombardirjnoris on 07-15-2024 Nitrite Ql (U) Negative Negative [facility] Nucleated red blood cell per centageOrdered By: Donato Lombardirjnoris on 07-15-2024 Nucleated RBC/100 WBC (Bld) [Ratio] 0 % 0-5 [facility] Platelet countOrdered By: Livier Sepulveda on 07-15-2024 Platelets (Bld) [#/Vol] 188 10*3/uL 150-450 [facility] Potassium (Unsp spec) [Mass/ Vol]Ordered By: Donato Sepulveda on 07-15-2024 Potassium [Moles/Vol] 4.3 mmol/L 3.3-5.1 [facility] Potassium measurement (mass/ volume)Ordered By: Donato Sepulveda on 07-15-2024 Potassium (Unsp spec) [Mass/Vol] 4.3 mmol/L 3.3-5.1 [facility] Protein Test strip Ql (U)Ord ered By: Rauldyanchar Lombardirjnoris on 07-15-2024 Protein Ql (U) Negative Negative [facility] RBC Auto (Bld) [#/Vol]Ordere d By: Rauldyanchar Lombardirjnoris on 07-15-2024 RBC (Bld) [#/Vol] 4.26 10*6/uL 4.2-5.4 [facility] Serum creatinine measurement (mass/volume)Ordered By: Donato Sepulveda on 07-15-2024 Creatinine [Mass/Vol] 0.65 mg/dL Low 0.70-1.20 [facility] Serum globulin measurementOr dered By: Donato Sepulveda on 07-15-2024 Globulin (S) [Mass/Vol] 2.6 g/dL 2.2-4.2 [facility] Serum glucose measurement (m ass/volume)Ordered By: Donato Sepulveda on 03-12-2025 Glucose [Mass/Vol] 322 mg/dL High 70-99 [facility] Serum or plasma alanine rivera otransferase (ALT) measurementOrdered By: Donato Sepulveda on 07-15-2024 ALT [Catalytic activity/Vol] 9 U/L <35 [facility] Serum or plasma albumin serge urement (mass/volume)Ordered By: Donato Sepulveda on 07-15-2024 Albumin [Mass/Vol] 3.9 g/dL 3.4-4.8 [facility] Serum or plasma albumin/glob ulin mass ratioOrdered By: Donato Sepulveda on 07-15-2024 Albumin/Globulin [Mass ratio] 1.5 {ratio} 0.9-2.4 [facility] Serum or plasma alkaline stephane sphatase measurementOrdered By: Donato Sepulveda on 07-15-2024 ALP [Catalytic activity/Vol] 59 U/L 35-104 [facility] Serum or plasma calcium serge urement (mass/volume)Ordered By: Donato Sepulveda on 07-15-2024 Calcium [Mass/Vol] 9.6 mg/dL 7.6-11.0 [facility] Serum or plasma urea nitroge n measurement (mass/volume)Ordered By: Donato Sepulveda on 07-15-2024 Urea nitrogen [Mass/Vol] 11 mg/dL 4-19 [facility] Sodium levelOrdered By: Raul Sepulveda on 07-15-2024 Sodium [Moles/Vol] 138 mmol/L 133-145 [facility] Total proteinOrdered By: Sherwin Sepulveda on 07-15-2024 Protein [Mass/Vol] 6.6 g/dL 5.9-8.4 [facility] Urine blood detectionOrdered By: Donato Sepulveda on 07-15-2024 Urine Occult Blood Negative Negative [facility] Urine clarityOrdered By: Sherwin Sepulveda on 07-15-2024 Clarity (U) Sl. Cloudy Clear [facility] Urine color determinationOrd ered By: Donato Sepulveda on 07-15-2024 Color (U) Yellow Yellow [facility] Urine cultureOrdered By: Sherwin Sepulveda on 07-15-2024 Bacteria identified Cx Nom (U) GNR lactose coal trammer Abnormal [facility] Bacteria identified Cx Nom (U) Staphylococcus epidermidis Abnormal [facility] Urine glucose detectionOrder ed By: Donato Sepulveda on 07-15-2024 Glucose Ql (U) 1000 mg/dl High Normal [facility] Urine leukocyte esterase det ection by dipstickOrdered By: Donato Sepulveda on 07-15-2024 Leukocyte esterase Test strip Ql (U) Negative Negative [facility] Urine pHOrdered By: Harvey Sepulveda on 07-15-2024 pH (U) 7.0 [pH] 5.0 - 8.0 [facility] Urine specific gravity measu rementOrdered By: Donato Sepulveda on 07-15-2024 Specific gravity (U) [Rel density] 1.010 1.002-1.030 [facility] Urine urobilinogen measureme ntOrdered By: Donato Sepulveda on 07-15-2024 Urobilinogen Ql (U) 1 mg/dl High Normal [facility] Urobilinogen Ql (U)Ordered B y: Donato Sepulveda on 07-15-2024 Urobilinogen (U) [Mass/Vol] 1 mg/dL High Normal [facility] White blood cell (WBC) count Ordered By: Donato Sepulveda on 07-15-2024 WBC (Bld) [#/Vol] 6.0 10*3/uL 4.4-11.0 [facility] Vitamin D, 25-hydroxyOrdered By: Donato Sepulveda on 07-14-2024 Vitamin D 25-Hydroxy 33.9 ng/mL 30-100 [facility] Comment on above: Vitamin D StatusDefi ciency: <20 ng/mL (50nmol/L)Insufficiency: 20-30 ng/mL (50-75 nmol/L)Sufficiency: 30-100 ng/mL (75-250 nmol/L)Toxicity: >100 ng/mL (>250 nmol/L) Bilirubin Test strip Ql (U)O rdered By: Donato Sepulveda on 06-15-2024 Bilirubin Ql (U) Negative Negative [facility] Glucose Ql (U)Ordered By: Livier Sepulveda on 06-15-2024 Glucose (U) [Mass/Vol] 1000 mg/dL High Normal [facility] Ketones Test strip Ql (U)Ord ered By: Donato Sepulveda on 06-15-2024 Ketones Ql (U) Negative Negative [facility] Nitrite Test strip Ql (U)Ord ered By: Donato Sepulveda on 06-15-2024 Nitrite Ql (U) Negative Negative [facility] Protein Test strip Ql (U)Ord ered By: Donato Sepulveda on 06-15-2024 Protein Ql (U) Negative Negative [facility] Urine blood detectionOrdered By: Donato Sepulveda on 06-15-2024 Urine Occult Blood 150 /ul High Negative [facility] Urine clarityOrdered By: Sherwin Sepulveda on 06-15-2024 Clarity (U) Clear Clear [facility] Urine color determinationOrd ered By: Donato Sepulveda on 06-15-2024 Color (U) Yellow Yellow [facility] Urine cultureOrdered By: Sherwin Sepulveda on 06-15-2024 Bacteria identified Cx Nom (U) Mixed Gram Pos & Gram Neg Org Abnormal [facility] Urine glucose detectionOrder ed By: Donato Sepulveda on 06-15-2024 Glucose Ql (U) 1000 mg/dl High Normal [facility] Urine leukocyte esterase det ection by dipstickOrdered By: Donato Sepulveda on 06-15-2024 Leukocyte esterase Test strip Ql (U) 25 /ul High Negative [facility] Urine pHOrdered By: Harvey Sepulveda on 06-15-2024 pH (U) 6.0 [pH] 5.0 - 8.0 [facility] Urine specific gravity measu rementOrdered By: Donato Sepulveda on 06-15-2024 Specific gravity (U) [Rel density] 1.010 1.002-1.030 [facility] Urine urobilinogen measureme ntOrdered By: Donato Sepulveda on 06-15-2024 Urobilinogen Ql (U) Normal mg/dl Normal [facility] Urobilinogen Ql (U)Ordered B y: Donato Sepulveda on 06-15-2024 Urine Urobilinogen Normal mg/dl Normal [facility] Hemoglobin A1c percentageOrd ered By: Donato Sepulveda on 06-09-2024 HbA1c (Bld) [Mass fraction] 8.6 % High 3.8-5.6 [facility] Comment on above: Normal < 5.7 % Predi abetic 5.7 - 6.4 % Diabetic >or= 6.5 % Please note range changes. [id number] DOrdered By: Noris Sepulveda on 06-02-2024 Vitamin D 25-Hydroxy 53.0 ng/mL [facility] Comment on above: Vitamin D 25(OH) Sta tus Range Deficiency <20 ng/mL (50nmol/L) Insufficiency 20 - 30 ng/mL (50 - 75 nmol/L) Sufficiency 30 - 100 ng/mL (75 - 250 nmol/L) Toxicity >100 ng/mL (>250 nmol/L) [id number] DOrdered By: Noris Sepulveda on 04-21-2024 Vitamin D 25-Hydroxy 64.0 ng/mL [facility] Comment on above: Vitamin D 25(OH) Sta tus Range Deficiency <20 ng/mL (50nmol/L) Insufficiency 20 - 30 ng/mL (50 - 75 nmol/L) Sufficiency 30 - 100 ng/mL (75 - 250 nmol/L) Toxicity >100 ng/mL (>250 nmol/L) Basophil percentageOrdered B y: Donato Sepulveda on 08-06-2023 Bilirubin [Mass/Vol] 0.50 mg/dL 0.20-1.00 [facility] Comment on above: For patients on eltr ombopag therapy, use of Dimension [place] TBIL is not recommended. Chloride [Moles/Vol] 105 mmol/L 98-107 [facility] Glucose [Mass/Vol] 153 mg/dL 74-106 [facility] Comment on above: Fasting Glucose resu lt greater than or equal to 126 mg/dL suggests DIABETES MELLITUS per A.D.A. criteria. Hemoglobin (Bld) [Mass/Vol] 12.4 g/dL 12.0-15.0 [facility] Potassium [Moles/Vol] 4.0 mmol/L 3.5-5.1 [facility] Protein [Mass/Vol] 6.7 g/dL 6.4-8.2 [facility] Sodium [Moles/Vol] 139 mmol/L 136-145 [facility] WBC (Bld) [#/Vol] 5.9 10*3/uL 4.4-11.0 [facility] Determination of erythrocyte mean corpuscular volume (MCV)Ordered By: Donato Sepulveda on 08-06-2023 MCV (RBC) [Entitic vol] 92.5 fL 81-99 [facility] Erythrocyte distribution wid th ratioOrdered By: [facility] on 08-06-2023 Erythrocyte distribution width (RBC) [Ratio] 13.3 % 11.6-14.6 [facility] Erythrocyte distribution wid th standard deviationOrdered By: Raulameniachar Sepulveda on 08-06-2023 Erythrocyte distribution width (RBC) [Entitic vol] 45.2 fL 35.1-43.9 [facility] Hematocrit Auto (Bld) [Volum e fraction]Ordered By: Donato Sepulveda on 08-06-2023 Hematocrit (Bld) [Volume fraction] 39.7 % 37-47 [facility] - Chemistry and C hemistry - challengeOrdered By: Donato Sepulveda on 08-06-2023 Albumin/Globulin [Mass ratio] 1.0 {ratio} 0.9-2.4 [facility] ALP [Catalytic activity/Vol] 59 U/L 45-117 [facility] ALT [Catalytic activity/Vol] 13 U/L 13-56 [facility] CO2 [Moles/Vol] 29.0 mmol/L 21.0-32.0 [facility] Globulin (S) [Mass/Vol] 3.3 g/dL 2.2-4.2 [facility] Urea nitrogen/Creatinine [Mass ratio] 14.4 mg/mg 10-20 [facility] - Hematology and Cell countsOrdered By: Donato Sepulveda on 08-06-2023 MCH (RBC) [Entitic mass] 28.9 pg 27.0-32.0 [facility] MCHC (RBC) [Mass/Vol] 31.2 g/dL 32-36 [facility] Platelet mean volume (Bld) [Entitic vol] 10.1 fL 6.2-12.0 [facility] Platelets (Bld) [#/Vol] 187 10*3/uL 150-450 [facility] No Panel InformationOrdered By: Donato Sepulveda on 08-06-2023 Estimated GFR (MDRD) Amer 94 mL/min >60 [facility] Comment on above: GFR Calc Estimated GFR (MDRD) Non-Af Amer 77 mL/min >60 [facility] Comment on above: Non- GFR Calc RBC Auto (Bld) [#/Vol]Ordere d By: Donato Sepulveda on 08-06-2023 RBC (Bld) [#/Vol] 4.29 10*6/uL 4.2-5.4 [facility] Serum or plasma calcium serge urement (mass/volume)Ordered By: Donato Sepulveda on 08-06-2023 Calcium [Mass/Vol] 9.0 mg/dL 8.5-10.1 [facility] Serum or plasma creatinine m easurement (mass/volume)Ordered By: Donato Sepulveda on 08-06-2023 Creatinine [Mass/Vol] 0.76 mg/dL 0.55-1.02 [facility] Comment on above: The validity of the calculated GFR & GFRAA in patients over 70 years has not been determined. Clinical correlation is essential. Serum or plasma urea nitroge n measurement (mass/volume)Ordered By: Donato Sepulveda on 08-06-2023 Urea nitrogen [Mass/Vol] 11 mg/dL 7-18 [facility] Thin prep Papanicolaou smear with manual screeningOrdered By: Donato Sepulveda on 08-06-2023 Thin prep Papanicolaou smear with manual screening 3.4 g/dL 3.2-5.0 [facility] Thin prep Papanicolaou smear with manual screening 15 U/L 15-37 [facility] Thin prep Papanicolaou smear with manual screening 5 5-15 [facility] Basophil percentageOrdered B y: Donato Sepulveda on 06-11-2023 Bilirubin [Mass/Vol] 0.50 mg/dL 0.20-1.00 [facility] Comment on above: For patients on eltr ombopag therapy, use of Dim[employer] [place] TBIL is not recommended. Chloride [Moles/Vol] 105 mmol/L 98-107 [facility] Glucose [Mass/Vol] 92 mg/dL 74-106 [facility] Hemoglobin (Bld) [Mass/Vol] 12.1 g/dL 12.0-15.0 [facility] Potassium [Moles/Vol] 3.7 mmol/L 3.5-5.1 [facility] Protein [Mass/Vol] 6.9 g/dL 6.4-8.2 [facility] Sodium [Moles/Vol] 140 mmol/L 136-145 [facility] WBC (Bld) [#/Vol] 7.0 10*3/uL 4.4-11.0 [facility] Determination of erythrocyte mean corpuscular volume (MCV)Ordered By: Donato Sepulveda on 06-11-2023 MCV (RBC) [Entitic vol] 92.6 fL 81-99 [facility] Erythrocyte distribution wid th ratioOrdered By: Donato Sepulveda on 06-11-2023 Erythrocyte distribution width (RBC) [Ratio] 12.5 % 11.6-14.6 [facility] Erythrocyte distribution wid th standard deviationOrdered By: Donato Sepulveda on 06-11-2023 Erythrocyte distribution width (RBC) [Entitic vol] 42.4 fL 35.1-43.9 [facility] Hematocrit Auto (Bld) [Volum e fraction]Ordered By: Donato Sepulveda on 06-11-2023 Hematocrit (Bld) [Volume fraction] 38.6 % 37-47 [facility] - Chemistry and C hemistry - challengeOrdered By: Donato Sepulveda on 06-11-2023 Albumin/Globulin [Mass ratio] 0.8 {ratio} 0.9-2.4 [facility] ALP [Catalytic activity/Vol] 85 U/L 45-117 [facility] ALT [Catalytic activity/Vol] 18 U/L 13-56 [facility] CO2 [Moles/Vol] 29.0 mmol/L 21.0-32.0 [facility] Globulin (S) [Mass/Vol] 3.8 g/dL 2.2-4.2 [facility] Urea nitrogen/Creatinine [Mass ratio] 18.3 mg/mg 10-20 [facility] - Hematology and Cell countsOrdered By: Donato Sepulveda on 06-11-2023 MCH (RBC) [Entitic mass] 29.0 pg 27.0-32.0 [facility] MCHC (RBC) [Mass/Vol] 31.3 g/dL 32-36 [facility] Platelet mean volume (Bld) [Entitic vol] 11.0 fL 6.2-12.0 [facility] Platelets (Bld) [#/Vol] 190 10*3/uL 150-450 [facility] No Panel InformationOrdered By: Donato Sepulveda on 06-11-2023 Estimated GFR (MDRD) Amer 80 mL/min >60 [facility] Comment on above: GFR Calc Estimated GFR (MDRD) Non-Af Amer 66 mL/min >60 [facility] Comment on above: Non- GFR Calc Vitamin D 25-Hydroxy 29.3 ng/mL [facility] Comment on above: Vitamin D 25(OH) Sta tus Range Deficiency <20 ng/mL (50nmol/L) Insufficiency 20 - 30 ng/mL (50 - 75 nmol/L) Sufficiency 30 - 100 ng/mL (75 - 250 nmol/L) Toxicity >100 ng/mL (>250 nmol/L) RBC Auto (Bld) [#/Vol]Ordere d By: Donato Sepulveda on 06-11-2023 RBC (Bld) [#/Vol] 4.17 10*6/uL 4.2-5.4 [facility] Serum or plasma calcium serge urement (mass/volume)Ordered By: Donato Sepulveda on 06-11-2023 Calcium [Mass/Vol] 9.2 mg/dL 8.5-10.1 [facility] Serum or plasma creatinine m easurement (mass/volume)Ordered By: Donato Sepulveda on 06-11-2023 Creatinine [Mass/Vol] 0.87 mg/dL 0.55-1.02 [facility] Comment on above: The validity of the calculated GFR & GFRAA in patients over 70 years has not been determined. Clinical correlation is essential. Serum or plasma urea nitroge n measurement (mass/volume)Ordered By: Donato Sepulveda on 06-11-2023 Urea nitrogen [Mass/Vol] 16 mg/dL 7-18 [facility] Thin prep Papanicolaou smear with manual screeningOrdered By: stuameniachar Sepulveda on 06-11-2023 Thin prep Papanicolaou smear with manual screening 3.1 g/dL 3.2-5.0 [facility] Thin prep Papanicolaou smear with manual screening 18 U/L 15-37 [facility] Thin prep Papanicolaou smear with manual screening 6 5-15 [facility] Whole blood hemoglobin A1c/t otal hemoglobin ratio (mass fraction)Ordered By: Donato Sepulveda on 06-11-2023 HbA1c (Bld) [Mass fraction] 8.7 % 3.8-5.6 [facility] Comment on above: Normal < 5.7 % Predi abetic 5.7 - 6.4 % Diabetic >or= 6.5 % Please note range changes. Absolute lymphocyte countOrd ered By: Colleen Walker on 06-05-2023 Lymphocytes Auto (Unsp spec) [#/Vol] 1.18 10*3/uL 0.83-4.51 [facility] Automated lymphocyte count a s percentage of total leukocytesOrdered By: Colleen Walker on 06-05-2023 Lymphocytes/100 WBC Auto (Unsp spec) 13.6 % 19-41 [facility] Basophil percentageOrdered B y: Colleen Walker on 06-05-2023 Basophil percentage 5-10 SEEN /hpf 0-5 [facility] Basophils/100 WBC (Bld) 0.6 % 0-1 [facility] Chloride [Moles/Vol] 104 mmol/L 98-107 [facility] Eosinophils/100 WBC (Bld) 2.0 % 0-5 [facility] Glucose [Mass/Vol] 150 mg/dL 74-106 [facility] Comment on above: Fasting Glucose resu lt greater than or equal to 126 mg/dL suggests DIABETES MELLITUS per A.D.A. criteria. Hemoglobin (Bld) [Mass/Vol] 13.2 g/dL 12.0-15.0 [facility] Monocytes/100 WBC (Bld) 7.2 % 0-10 [facility] Neutrophils (Bld) [#/Vol] 6.6 10*3/uL 2.0-7.7 [facility] Neutrophils/100 WBC (Bld) 76.3 % 47-70 [facility] Potassium [Moles/Vol] 3.6 mmol/L 3.5-5.1 [facility] Sodium [Moles/Vol] 137 mmol/L 136-145 [facility] WBC (Bld) [#/Vol] 8.7 10*3/uL 4.4-11.0 [facility] Bilirubin Test strip Ql (U)O rdered By: Colleen Walker on 06-05-2023 Bilirubin Ql (U) Negative Negative [facility] Determination of erythrocyte mean corpuscular volume (MCV)Ordered By: Colleen Walker on 06-05-2023 MCV (RBC) [Entitic vol] 92.9 fL 81-99 [facility] Erythrocyte distribution wid th ratioOrdered By: Colleen Walker on 06-05-2023 Erythrocyte distribution width (RBC) [Ratio] 12.6 % 11.6-14.6 [facility] Erythrocyte distribution wid th standard deviationOrdered By: Colleen Walker on 06-05-2023 Erythrocyte distribution width (RBC) [Entitic vol] 43.4 fL 35.1-43.9 [facility] Hematocrit Auto (Bld) [Volum e fraction]Ordered By: Colleen Walker on 06-05-2023 Hematocrit (Bld) [Volume fraction] 42.1 % 37-47 [facility] Immature granulocytes/100 WB C Auto (Bld)Ordered By: Colleen Walker on 06-05-2023 Immature granulocytes/100 WBC (Bld) 0.300 % 0.0-0.9 [facility] Comment on above: IG% - Immature Granu locytes (promyelocytes, myelocytes and metamyelocytes) > 1% indicates that a LEFT SHIFT is Present. Ketones Test strip Ql (U)Ord ered By: Colleen Walker on 06-05-2023 Ketones Ql (U) Negative Negative [facility] - Chemistry and C hemistry - challengeOrdered By: Colleen Walker on 06-05-2023 CO2 [Moles/Vol] 32.0 mmol/L 21.0-32.0 [facility] Urea nitrogen/Creatinine [Mass ratio] 21.9 mg/mg 10-20 [facility] - Hematology and Cell countsOrdered By: Colleen Walker on 06-05-2023 MCH (RBC) [Entitic mass] 29.1 pg 27.0-32.0 [facility] MCHC (RBC) [Mass/Vol] 31.4 g/dL 32-36 [facility] Nucleated RBC/100 WBC (Bld) [Ratio] 0 % 0-5 [facility] Platelets (Bld) [#/Vol] 180 10*3/uL 150-450 [facility] Mucus LM Ql (Urine sed)Order ed By: Colleen Walker on 06-05-2023 Mucus Ql (Urine sed) 0 SEEN /hpf [facility] Nitrite Test strip Ql (U)Ord ered By: Colleen Walker on 06-05-2023 Nitrite Ql (U) Negative Negative [facility] No Panel InformationOrdered By: Colleen Walker on 06-05-2023 Urine RBC 0 SEEN /hpf 0-5 [facility] Estimated Creatinine Clearance Calc 48.43 ml/min [facility] Estimated GFR (MDRD) Amer 92 mL/min >60 [facility] Comment on above: GFR Calc Estimated GFR (MDRD) Non-Af Amer 76 mL/min >60 [facility] Comment on above: Non- GFR Calc Platelet mean volume Jamie-Ec ker (Bld) [Entitic vol]Ordered By: Colleen Walker on 06-05-2023 Platelet mean volume (Bld) [Entitic vol] 10.3 fL 6.2-12.0 [facility] Protein Test strip Ql (U)Ord ered By: Colleen Walker on 06-05-2023 Protein Ql (U) 15 mg/dl Negative [facility] RBC Auto (Bld) [#/Vol]Ordere d By: Colleen Walker on 06-05-2023 RBC (Bld) [#/Vol] 4.53 10*6/uL 4.2-5.4 [facility] Serum or plasma calcium serge urement (mass/volume)Ordered By: Colleen Walker on 06-05-2023 Calcium [Mass/Vol] 9.3 mg/dL 8.5-10.1 [facility] Serum or plasma creatinine m easurement (mass/volume)Ordered By: Colleen Walker on 06-05-2023 Creatinine [Mass/Vol] 0.78 mg/dL 0.55-1.02 [facility] Comment on above: The validity of the calculated GFR & GFRAA in patients over 70 years has not been determined. Clinical correlation is essential. Serum or plasma urea nitroge n measurement (mass/volume)Ordered By: Colleen Walker on 06-05-2023 Urea nitrogen [Mass/Vol] 17 mg/dL 7-18 [facility] Squamous epithelial cells de tection in urine sediment by light microscopyOrdered By: Colleen Walker on 06-05-2023 Epithelial cells.squamous LM Ql (Urine sed) 5-10 SEEN /hpf 5-10 [facility] Thin prep Papanicolaou smear with manual screeningOrdered By: Colleen Walker on 06-05-2023 Thin prep Papanicolaou smear with manual screening 1 5-15 [facility] Urine blood detectionOrdered By: Colleen Walker on 06-05-2023 RBC Ql (U) 50 /ul Negative [facility] Urine clarityOrdered By: Yadira Walker on 06-05-2023 Clarity (U) Sl. Cloudy Clear [facility] Urine color determinationOrd ered By: Colleen Walker on 06-05-2023 Color (U) Yellow Yellow [facility] Urine glucose detectionOrder ed By: Colleen Walker on 06-05-2023 Glucose Ql (U) 1000 mg/dl Normal [facility] Urine leukocyte esterase det ection by dipstickOrdered By: Colleen Walker on 06-05-2023 Leukocyte esterase Test strip Ql (U) 100 /ul Negative [facility] Urine pHOrdered By: Colleen ma on 06-05-2023 pH (U) 6.0 [pH] 5.0 - 8.0 [facility] Urine sediment bacteria coun t by microscopy (number/high power field)Ordered By: Colleen Walker on 06-05-2023 Bacteria LM.HPF (Urine sed) [#/Area] 0 /[HPF] None Seen [facility] Urine specific gravity measu rementOrdered By: Colleen Walker on 06-05-2023 Specific gravity (U) [Rel density] 1.015 1.002-1.030 [facility] Urine urobilinogen measureme ntOrdered By: Colleen Walker on 06-05-2023 Urobilinogen Ql (U) Normal mg/dl Normal [facility] Absolute lymphocyte countOrd ered By: Donato Sepulveda on 04-23-2023 Lymphocytes Auto (Unsp spec) [#/Vol] 1.27 10*3/uL 0.83-4.51 [facility] Basophil percentageOrdered B y: Donato Sepulveda on 04-23-2023 Basophils/100 WBC (Bld) 0.3 % 0-1 [facility] Chloride [Moles/Vol] 106 mmol/L 98-107 [facility] Eosinophils/100 WBC (Bld) 4.6 % 0-5 [facility] Glucose [Mass/Vol] 96 mg/dL 74-106 [facility] Neutrophils (Bld) [#/Vol] 4.1 10*3/uL 2.0-7.7 [facility] Neutrophils/100 WBC (Bld) 67.6 % 47-70 [facility] Potassium [Moles/Vol] 3.7 mmol/L 3.5-5.1 [facility] Sodium [Moles/Vol] 141 mmol/L 136-145 [facility] WBC (Bld) [#/Vol] 6.1 10*3/uL 4.4-11.0 [facility] Blood erythrocytes count (nu mber/volume)Ordered By: Donato Sepulveda on 04-23-2023 RBC (Bld) [#/Vol] 4.10 10*6/uL 4.2-5.4 [facility] Blood hemoglobin measurement (mass/volume)Ordered By: Livierstudyanchar Sepulveda on 04-23-2023 Hemoglobin (Bld) [Mass/Vol] 12.0 g/dL 12.0-15.0 [facility] Blood lymphocytes/100 leukoc ytesOrdered By: Livierbalaji Sepulveda on 04-23-2023 Lymphocytes/100 WBC (Bld) 20.9 % 19-41 [facility] Blood monocytes/100 leukocyt esOrdered By: balaji Sepulveda on 04-23-2023 Monocytes/100 WBC (Bld) 6.1 % 0-10 [facility] Blood platelet mean volumeOr dered By: Livierbalaji Sepulveda on 04-23-2023 Platelet mean volume (Bld) [Entitic vol] 10.3 fL 6.2-12.0 [facility] Determination of erythrocyte mean corpuscular volume (MCV)Ordered By: Donato Sepulveda on 04-23-2023 MCV (RBC) [Entitic vol] 93.9 fL 81-99 [facility] Hematocrit Auto (Bld) [Volum e fraction]Ordered By: Livierbalaji Sepulveda on 04-23-2023 Hematocrit (Bld) [Volume fraction] 38.5 % 37-47 [facility] - Chemistry and C hemistry - challengeOrdered By: Donato Sepulveda on 04-23-2023 CO2 [Moles/Vol] 32.0 mmol/L 21.0-32.0 [facility] Urea nitrogen/Creatinine [Mass ratio] 21.8 mg/mg 10-20 [facility] - Hematology and Cell countsOrdered By: Donato Sepulveda on 04-23-2023 Erythrocyte distribution width (RBC) [Entitic vol] 44.9 fL 35.1-43.9 [facility] Erythrocyte distribution width (RBC) [Ratio] 13.0 % 11.6-14.6 [facility] Immature granulocytes/100 WBC (Bld) 0.500 % 0.0-0.9 [facility] Comment on above: IG% - Immature Granu locytes (promyelocytes, myelocytes and metamyelocytes) > 1% indicates that a LEFT SHIFT is Present. MCH (RBC) [Entitic mass] 29.3 pg 27.0-32.0 [facility] Nucleated RBC/100 WBC (Bld) [Ratio] 0 % 0-5 [facility] MCHC Auto (RBC) [Mass/Vol]Or dered By: Donato Sepulveda on 04-23-2023 MCHC (RBC) [Mass/Vol] 31.2 g/dL 32-36 [facility] No Panel InformationOrdered By: Donato Sepulveda on 04-23-2023 Estimated GFR (MDRD) Amer 106 mL/min >60 [facility] Comment on above: GFR Calc Estimated GFR (MDRD) Non-Af Amer 87 mL/min >60 [facility] Comment on above: Non- GFR Calc Platelets bldOrdered By: Sherwin Sepulveda on 04-23-2023 Platelets (Bld) [#/Vol] 207 10*3/uL 150-450 [facility] Serum or plasma calcium serge urement (mass/volume)Ordered By: Donato Sepulveda on 04-23-2023 Calcium [Mass/Vol] 9.3 mg/dL 8.5-10.1 [facility] Serum or plasma creatinine m easurement (mass/volume)Ordered By: Donato Sepulveda on 04-23-2023 Creatinine [Mass/Vol] 0.69 mg/dL 0.55-1.02 [facility] Comment on above: The validity of the calculated GFR & GFRAA in patients over 70 years has not been determined. Clinical correlation is essential. Serum or plasma urea nitroge n measurement (mass/volume)Ordered By: Donato Sepulveda on 04-23-2023 Urea nitrogen [Mass/Vol] 15 mg/dL 7-18 [facility] Thin prep Papanicolaou smear with manual screeningOrdered By: Donato Sepulveda on 04-23-2023 Thin prep Papanicolaou smear with manual screening 3 5-15 [facility] Basophil percentageOrdered B y: Donato Sepulveda on 04-19-2023 Potassium [Moles/Vol] 4.3 mmol/L 3.5-5.1 [facility] Basophil percentageOrdered B y: Donato Sepulveda on 04-09-2023 Bilirubin [Mass/Vol] 0.30 mg/dL 0.20-1.00 [facility] Comment on above: For patients on eltr ombopag therapy, use of Dimension [place] TBIL is not recommended. Chloride [Moles/Vol] 106 mmol/L 98-107 [facility] Glucose [Mass/Vol] 55 mg/dL 74-106 [facility] Potassium [Moles/Vol] 3.9 mmol/L 3.5-5.1 [facility] Protein [Mass/Vol] 7.2 g/dL 6.4-8.2 [facility] Sodium [Moles/Vol] 139 mmol/L 136-145 [facility] WBC (Bld) [#/Vol] 7.9 10*3/uL 4.4-11.0 [facility] Blood erythrocytes count (nu mber/volume)Ordered By: Donato Sepulveda on 04-09-2023 RBC (Bld) [#/Vol] 4.36 10*6/uL 4.2-5.4 [facility] Blood hemoglobin measurement (mass/volume)Ordered By: Donato Sepulveda on 04-09-2023 Hemoglobin (Bld) [Mass/Vol] 12.7 g/dL 12.0-15.0 [facility] Blood platelet mean volumeOr dered By: Donato Sepulveda on 04-09-2023 Platelet mean volume (Bld) [Entitic vol] 10.9 fL 6.2-12.0 [facility] Determination of erythrocyte mean corpuscular volume (MCV)Ordered By: Donato Sepulveda on 04-09-2023 MCV (RBC) [Entitic vol] 94.5 fL 81-99 [facility] Hematocrit Auto (Bld) [Volum e fraction]Ordered By: Donato Sepulveda on 04-09-2023 Hematocrit (Bld) [Volume fraction] 41.2 % 37-47 [facility] - Chemistry and C hemistry - challengeOrdered By: Donato Sepulveda on 04-09-2023 ALP [Catalytic activity/Vol] 90 U/L 45-117 [facility] ALT [Catalytic activity/Vol] 21 U/L 13-56 [facility] CO2 [Moles/Vol] 30.0 mmol/L 21.0-32.0 [facility] Globulin (S) [Mass/Vol] 3.7 g/dL 2.2-4.2 [facility] Urea nitrogen/Creatinine [Mass ratio] 22.9 mg/mg 10-20 [facility] - Hematology and Cell countsOrdered By: Donato Sepulveda on 04-09-2023 Erythrocyte distribution width (RBC) [Entitic vol] 44.3 fL 35.1-43.9 [facility] Erythrocyte distribution width (RBC) [Ratio] 12.8 % 11.6-14.6 [facility] MCH (RBC) [Entitic mass] 29.1 pg 27.0-32.0 [facility] MCHC Auto (RBC) [Mass/Vol]Or dered By: Donato Sepulveda on 04-09-2023 MCHC (RBC) [Mass/Vol] 30.8 g/dL 32-36 [facility] No Panel InformationOrdered By: Dontao Sepulveda on 04-09-2023 Estimated GFR (MDRD) Amer 97 mL/min >60 [facility] Comment on above: GFR Calc Estimated GFR (MDRD) Non-Af Amer 80 mL/min >60 [facility] Comment on above: Non- GFR Calc Platelets bldOrdered By: Sherwin Sepulveda on 04-09-2023 Platelets (Bld) [#/Vol] 212 10*3/uL 150-450 [facility] Serum or plasma albumin serge urement (mass/volume)Ordered By: Donato Sepulveda on 04-09-2023 Albumin [Mass/Vol] 3.5 g/dL 3.2-5.0 [facility] Serum or plasma albumin/glob ulin mass ratioOrdered By: Donato Sepulveda on 04-09-2023 Albumin/Globulin [Mass ratio] 0.9 {ratio} 0.9-2.4 [facility] Serum or plasma calcium serge urement (mass/volume)Ordered By: Donato Sepulveda on 04-09-2023 Calcium [Mass/Vol] 9.4 mg/dL 8.5-10.1 [facility] Serum or plasma creatinine m easurement (mass/volume)Ordered By: Donato Sepulveda on 04-09-2023 Creatinine [Mass/Vol] 0.74 mg/dL 0.55-1.02 [facility] Comment on above: The validity of the calculated GFR & GFRAA in patients over 70 years has not been determined. Clinical correlation is essential. Serum or plasma urea nitroge n measurement (mass/volume)Ordered By: Donato Sepulveda on 04-09-2023 Urea nitrogen [Mass/Vol] 17 mg/dL 7-18 [facility] Thin prep Papanicolaou smear with manual screeningOrdered By: Donato Sepulveda on 04-09-2023 Thin prep Papanicolaou smear with manual screening 19 U/L 15-37 [facility] Thin prep Papanicolaou smear with manual screening 3 5-15 [facility] No Panel InformationOrdered By: Donato Sepulveda on 03-12-2023 Vitamin D 25-Hydroxy 34.4 ng/mL [facility] Comment on above: Vitamin D 25(OH) Sta tus Range Deficiency <20 ng/mL (50nmol/L) Insufficiency 20 - 30 ng/mL (50 - 75 nmol/L) Sufficiency 30 - 100 ng/mL (75 - 250 nmol/L) Toxicity >100 ng/mL (>250 nmol/L) Whole blood hemoglobin A1c/t otal hemoglobin ratio (mass fraction)Ordered By: Donato Sepulveda on 03-12-2023 HbA1c (Bld) [Mass fraction] 7.4 % 3.8-5.6 [facility] Comment on above: Normal < 5.7 % Predi abetic 5.7 - 6.4 % Diabetic >or= 6.5 % Please note range changes. Basophil percentageOrdered B y: Donato Sepulveda on 02-05-2023 Bilirubin [Mass/Vol] 0.50 mg/dL 0.20-1.00 [facility] Comment on above: For patients on eltr ombopag therapy, use of Dimension [place] TBIL is not recommended. Chloride [Moles/Vol] 105 mmol/L 98-107 [facility] Glucose [Mass/Vol] 106 mg/dL 74-106 [facility] Comment on above: Fasting Glucose resu lt from 100 to 125 mg/dL suggests IMPAIRED HOMEOSTASIS per A.D.A. criteria. Potassium [Moles/Vol] 4.2 mmol/L 3.5-5.1 [facility] Protein [Mass/Vol] 6.9 g/dL 6.4-8.2 [facility] Sodium [Moles/Vol] 142 mmol/L 136-145 [facility] WBC (Bld) [#/Vol] 6.0 10*3/uL 4.4-11.0 [facility] Blood erythrocytes count (nu mber/volume)Ordered By: Donato Sepulveda on 02-05-2023 RBC (Bld) [#/Vol] 4.18 10*6/uL 4.2-5.4 [facility] Blood hemoglobin measurement (mass/volume)Ordered By: Donato Sepulveda on 02-05-2023 Hemoglobin (Bld) [Mass/Vol] 12.1 g/dL 12.0-15.0 [facility] Blood platelet mean volumeOr dered By: Donato Sepulveda on 02-05-2023 Platelet mean volume (Bld) [Entitic vol] 10.7 fL 6.2-12.0 [facility] Determination of erythrocyte mean corpuscular volume (MCV)Ordered By: Donato Sepulveda on 02-05-2023 MCV (RBC) [Entitic vol] 95.2 fL 81-99 [facility] Direct bilirubinOrdered By: Donato Sepulveda on 02-05-2023 Bilirubin.direct [Mass/Vol] 0.15 mg/dL 0.00-0.30 [facility] Hematocrit Auto (Bld) [Volum e fraction]Ordered By: Donato Sepulveda on 02-05-2023 Hematocrit (Bld) [Volume fraction] 39.8 % 37-47 [facility] - Chemistry and C hemistry - challengeOrdered By: Donato Sepulveda on 02-05-2023 ALP [Catalytic activity/Vol] 73 U/L 45-117 [facility] ALT [Catalytic activity/Vol] 20 U/L 13-56 [facility] CO2 [Moles/Vol] 32.0 mmol/L 21.0-32.0 [facility] Globulin (S) [Mass/Vol] 3.5 g/dL 2.2-4.2 [facility] Urea nitrogen/Creatinine [Mass ratio] 20.8 mg/mg 10-20 [facility] - Hematology and Cell countsOrdered By: Donato Sepulveda on 02-05-2023 Erythrocyte distribution width (RBC) [Entitic vol] 46.1 fL 35.1-43.9 [facility] Erythrocyte distribution width (RBC) [Ratio] 13.1 % 11.6-14.6 [facility] MCH (RBC) [Entitic mass] 28.9 pg 27.0-32.0 [facility] MCHC Auto (RBC) [Mass/Vol]Or dered By: Donato Sepulveda on 02-05-2023 MCHC (RBC) [Mass/Vol] 30.4 g/dL 32-36 [facility] No Panel InformationOrdered By: Donato Sepulveda on 02-05-2023 Estimated GFR (MDRD) Amer 93 mL/min >60 [facility] Comment on above: GFR Calc Estimated GFR (MDRD) Non-Af Amer 76 mL/min >60 [facility] Comment on above: Non- GFR Calc Platelets bldOrdered By: Sherwin Sepulveda on 02-05-2023 Platelets (Bld) [#/Vol] 183 10*3/uL 150-450 [facility] Serum or plasma albumin serge urement (mass/volume)Ordered By: Donato Sepulveda on 02-05-2023 Albumin [Mass/Vol] 3.4 g/dL 3.2-5.0 [facility] Serum or plasma albumin/glob ulin mass ratioOrdered By: Donato Sepulveda on 02-05-2023 Albumin/Globulin [Mass ratio] 1.0 {ratio} 0.9-2.4 [facility] Serum or plasma calcium serge urement (mass/volume)Ordered By: Donato Sepulveda on 02-05-2023 Calcium [Mass/Vol] 9.4 mg/dL 8.5-10.1 [facility] Serum or plasma creatinine m easurement (mass/volume)Ordered By: Donato Sepulveda on 02-05-2023 Creatinine [Mass/Vol] 0.77 mg/dL 0.55-1.02 [facility] Comment on above: The validity of the calculated GFR & GFRAA in patients over 70 years has not been determined. Clinical correlation is essential. Serum or plasma urea nitroge n measurement (mass/volume)Ordered By: Donato Sepulveda on 02-05-2023 Urea nitrogen [Mass/Vol] 16 mg/dL 7-18 [facility] Thin prep Papanicolaou smear with manual screeningOrdered By: Donato Sepulveda on 02-05-2023 Thin prep Papanicolaou smear with manual screening 18 U/L 15-37 [facility] Thin prep Papanicolaou smear with manual screening 5 5-15 [facility] Whole blood hemoglobin A1c/t otal hemoglobin ratio (mass fraction)Ordered By: Donato Sepulveda on 02-05-2023 HbA1c (Bld) [Mass fraction] 7.0 % 3.8-5.6 [facility] Comment on above: Normal < 5.7 % Predi abetic 5.7 - 6.4 % Diabetic >or= 6.5 % Please note range changes. Basophil percentageOrdered B y: Donato Sepulvdea on 12-07-2022 Potassium [Moles/Vol] 4.7 mmol/L 3.5-5.1 [facility] Basophil percentageOrdered B y: Donato Sepulveda on 12-04-2022 Bilirubin [Mass/Vol] 0.30 mg/dL 0.20-1.00 [facility] Comment on above: For patients on eltr ombopag therapy, use of [employer] TBIL is not recommended. Chloride [Moles/Vol] 102 mmol/L 98-107 [facility] Glucose [Mass/Vol] 219 mg/dL 74-106 [facility] Comment on above: Glucose result great er than or equal to 200 mg/dLsuggests DIABETES MELLITUS per A.D.A. criteria. Potassium [Moles/Vol] 2.9 mmol/L 3.5-5.1 [facility] Protein [Mass/Vol] 6.6 g/dL 6.4-8.2 [facility] Sodium [Moles/Vol] 137 mmol/L 136-145 [facility] WBC (Bld) [#/Vol] 4.6 10*3/uL 4.4-11.0 [facility] Blood erythrocytes count (nu mber/volume)Ordered By: Donato Sepulveda on 12-04-2022 RBC (Bld) [#/Vol] 4.22 10*6/uL 4.2-5.4 [facility] Blood hemoglobin measurement (mass/volume)Ordered By: Donato Sepulveda on 12-04-2022 Hemoglobin (Bld) [Mass/Vol] 12.4 g/dL 12.0-15.0 [facility] Blood platelet mean volumeOr dered By: Donato Sepulveda on 12-04-2022 Platelet mean volume (Bld) [Entitic vol] 10.7 fL 6.2-12.0 [facility] Determination of erythrocyte mean corpuscular volume (MCV)Ordered By: Donato Sepulveda on 12-04-2022 MCV (RBC) [Entitic vol] 93.8 fL 81-99 [facility] Hematocrit Auto (Bld) [Volum e fraction]Ordered By: Donato Sepulveda on 12-04-2022 Hematocrit (Bld) [Volume fraction] 39.6 % 37-47 [facility] - Chemistry and C hemistry - challengeOrdered By: Raulameniachar Sepulveda on 12-04-2022 ALP [Catalytic activity/Vol] 85 U/L 45-117 [facility] ALT [Catalytic activity/Vol] 27 U/L 13-56 [facility] CO2 [Moles/Vol] 33.0 mmol/L 21.0-32.0 [facility] Globulin (S) [Mass/Vol] 3.6 g/dL 2.2-4.2 [facility] Urea nitrogen/Creatinine [Mass ratio] 13.7 mg/mg 10-20 [facility] - Hematology and Cell countsOrdered By: Donato Sepulveda on 12-04-2022 Erythrocyte distribution width (RBC) [Entitic vol] 43.8 fL 35.1-43.9 [facility] Erythrocyte distribution width (RBC) [Ratio] 12.8 % 11.6-14.6 [facility] MCH (RBC) [Entitic mass] 29.4 pg 27.0-32.0 [facility] MCHC Auto (RBC) [Mass/Vol]Or dered By: Donato Sepulveda on 12-04-2022 MCHC (RBC) [Mass/Vol] 31.3 g/dL 32-36 [facility] No Panel InformationOrdered By: Donato Sepulveda on 12-04-2022 Estimated GFR (MDRD) Amer 80 mL/min >60 [facility] Comment on above: GFR Calc Estimated GFR (MDRD) Non-Af Amer 66 mL/min >60 [facility] Comment on above: Non- GFR Calc Vitamin D 25-Hydroxy 40.9 ng/mL [facility] Comment on above: Vitamin D 25(OH) Sta tus Range Deficiency <20 ng/mL (50nmol/L) Insufficiency 20 - 30 ng/mL (50 - 75 nmol/L) Sufficiency 30 - 100 ng/mL (75 - 250 nmol/L) Toxicity >100 ng/mL (>250 nmol/L) Platelets bldOrdered By: Sherwin Sepulveda on 12-04-2022 Platelets (Bld) [#/Vol] 167 10*3/uL 150-450 [facility] Serum or plasma albumin serge urement (mass/volume)Ordered By: Donato Sepulveda on 12-04-2022 Albumin [Mass/Vol] 3.0 g/dL 3.2-5.0 [facility] Serum or plasma albumin/glob ulin mass ratioOrdered By: Donato Sepulveda on 12-04-2022 Albumin/Globulin [Mass ratio] 0.8 {ratio} 0.9-2.4 [facility] Serum or plasma calcium serge urement (mass/volume)Ordered By: Donato Sepulveda on 12-04-2022 Calcium [Mass/Vol] 8.6 mg/dL 8.5-10.1 [facility] Serum or plasma creatinine m easurement (mass/volume)Ordered By: Donato Sepulveda on 12-04-2022 Creatinine [Mass/Vol] 0.88 mg/dL 0.55-1.02 [facility] Comment on above: The validity of the calculated GFR & GFRAA in patients over 70 years has not been determined. Clinical correlation is essential. Serum or plasma urea nitroge n measurement (mass/volume)Ordered By: Donato Sepulveda on 12-04-2022 Urea nitrogen [Mass/Vol] 12 mg/dL 7-18 [facility] Thin prep Papanicolaou smear with manual screeningOrdered By: Donato Sepulveda on 12-04-2022 Thin prep Papanicolaou smear with manual screening 31 U/L 15-37 [facility] Thin prep Papanicolaou smear with manual screening 2 5-15 [facility] Whole blood hemoglobin A1c/t otal hemoglobin ratio (mass fraction)Ordered By: Donato Sepulveda on 12-04-2022 HbA1c (Bld) [Mass fraction] 8.2 % 3.8-5.6 [facility] Comment on above: Normal < 5.7 % Predi abetic 5.7 - 6.4 % Diabetic >or= 6.5 % Please note range changes. Basophil percentageOrdered B y: Donato Sepulveda on 11-21-2022 Potassium [Moles/Vol] 3.3 mmol/L 3.5-5.1 [facility] Basophil percentageOrdered B y: Donato Sepulveda on 10-09-2022 Bilirubin [Mass/Vol] 0.40 mg/dL 0.20-1.00 [facility] Comment on above: For patients on eltr ombopag therapy, use of [place] TBIL is not recommended. Chloride [Moles/Vol] 104 mmol/L 98-107 [facility] Glucose [Mass/Vol] 135 mg/dL 74-106 [facility] Comment on above: Fasting Glucose resu lt greater than or equal to 126 mg/dL suggests DIABETES MELLITUS per A.D.A. criteria. Potassium [Moles/Vol] 3.1 mmol/L 3.5-5.1 [facility] Protein [Mass/Vol] 6.5 g/dL 6.4-8.2 [facility] Sodium [Moles/Vol] 141 mmol/L 136-145 [facility] WBC (Bld) [#/Vol] 6.8 10*3/uL 4.4-11.0 [facility] Blood erythrocytes count (nu mber/volume)Ordered By: Donato Sepulveda on 10-09-2022 RBC (Bld) [#/Vol] 3.95 10*6/uL 4.2-5.4 [facility] Blood hemoglobin measurement (mass/volume)Ordered By: Donato Sepulveda on 10-09-2022 Hemoglobin (Bld) [Mass/Vol] 11.7 g/dL 12.0-15.0 [facility] Blood platelet mean volumeOr dered By: Donato Sepulveda on 10-09-2022 Platelet mean volume (Bld) [Entitic vol] 10.7 fL 6.2-12.0 [facility] Determination of erythrocyte mean corpuscular volume (MCV)Ordered By: Donato Sepulveda on 10-09-2022 MCV (RBC) [Entitic vol] 94.4 fL 81-99 [facility] Hematocrit Auto (Bld) [Volum e fraction]Ordered By: Donato Sepulveda on 10-09-2022 Hematocrit (Bld) [Volume fraction] 37.3 % 37-47 [facility] - Chemistry and C hemistry - challengeOrdered By: Donato Sepulveda on 10-09-2022 ALP [Catalytic activity/Vol] 61 U/L 45-117 [facility] ALT [Catalytic activity/Vol] 16 U/L 13-56 [facility] CO2 [Moles/Vol] 34.0 mmol/L 21.0-32.0 [facility] Globulin (S) [Mass/Vol] 3.3 g/dL 2.2-4.2 [facility] Urea nitrogen/Creatinine [Mass ratio] 13.5 mg/mg 10-20 [facility] - Hematology and Cell countsOrdered By: Donato Sepulveda on 10-09-2022 Erythrocyte distribution width (RBC) [Entitic vol] 44.6 fL 35.1-43.9 [facility] Erythrocyte distribution width (RBC) [Ratio] 12.8 % 11.6-14.6 [facility] MCH (RBC) [Entitic mass] 29.6 pg 27.0-32.0 [facility] MCHC Auto (RBC) [Mass/Vol]Or dered By: Donato Sepulveda on 10-09-2022 MCHC (RBC) [Mass/Vol] 31.4 g/dL 32-36 [facility] No Panel InformationOrdered By: Donato Sepulveda on 10-09-2022 Estimated GFR (MDRD) Amer 97 mL/min >60 [facility] Comment on above: GFR Calc Estimated GFR (MDRD) Non-Af Amer 80 mL/min >60 [facility] Comment on above: Non- GFR Calc Platelets bldOrdered By: Sherwin Sepulveda on 10-09-2022 Platelets (Bld) [#/Vol] 157 10*3/uL 150-450 [facility] Serum or plasma albumin serge urement (mass/volume)Ordered By: Donato Sepulveda on 10-09-2022 Albumin [Mass/Vol] 3.2 g/dL 3.2-5.0 [facility] Serum or plasma albumin/glob ulin mass ratioOrdered By: Donato Sepulveda on 10-09-2022 Albumin/Globulin [Mass ratio] 1.0 {ratio} 0.9-2.4 [facility] Serum or plasma calcium serge urement (mass/volume)Ordered By: Donato Sepulveda on 10-09-2022 Calcium [Mass/Vol] 9.1 mg/dL 8.5-10.1 [facility] Serum or plasma creatinine m easurement (mass/volume)Ordered By: Donato Sepulveda on 10-09-2022 Creatinine [Mass/Vol] 0.74 mg/dL 0.55-1.02 [facility] Comment on above: The validity of the calculated GFR & GFRAA in patients over 70 years has not been determined. Clinical correlation is essential. Serum or plasma urea nitroge n measurement (mass/volume)Ordered By: Donato Sepulveda on 10-09-2022 Urea nitrogen [Mass/Vol] 10 mg/dL 7-18 [facility] Thin prep Papanicolaou smear with manual screeningOrdered By: Donato Sepulveda on 10-09-2022 Thin prep Papanicolaou smear with manual screening 15 U/L 15-37 [facility] Thin prep Papanicolaou smear with manual screening 3 5-15 [facility] Basophil percentageOrdered B y: Basilio Flores on 10-05-2022 Cholesterol [Mass/Vol] 146 mg/dL <200 [facility] Comment on above: <200 mg/dL Desirable 200-240 mg/dL Borderline >240 mg/dL High Risk Triglyceride [Mass/Vol] 83 mg/dL <199 [facility] Comment on above: The drugs N-Acetylcy steine and Metamizole may falsely depress this assay.Serum Triglycerides Reference Interval Normal <150 mg/dL Borderline high 150 - 199 mg/dL High 200 - 499 mg/dL Very High > or = 500 mg/dL Serum or plasma cholesterol in HDL measurement (mass/volume)Ordered By: Basilio Flores on 10-05-2022 Cholesterol in HDL [Mass/Vol] 69 mg/dL >40 [facility] Comment on above: The drugs N-Acetylcy steine and Metamizole may falsely depress this assay. Reference Range HDL <40 mg/dL Low HDL Cholesterol HDL >or= 60 mg/dL High HDL Cholesterol Serum or plasma cholesterol in VLDL measurement (mass/volume)Ordered By: Basilio Flores on 10-05-2022 Cholesterol in VLDL [Mass/Vol] 17 mg/dL 5-40 [facility] Serum or plasma low density lipoprotein (LDL) cholesterol measurement (mass/volume)Ordered By: Basilio Flores on 10-05-2022 Cholesterol in LDL [Mass/Vol] 60 mg/dL 0-130 [facility] Basophil percentageOrdered B y: Donato Sepulveda on 10-04-2022 Cholesterol [Mass/Vol] 154 mg/dL <200 [facility] Comment on above: <200 mg/dL Desirable 200-240 mg/dL Borderline >240 mg/dL High Risk Triglyceride [Mass/Vol] 72 mg/dL <199 [facility] Comment on above: The drugs N-Acetylcy steine and Metamizole may falsely depress this assay.Serum Triglycerides Reference Interval Normal <150 mg/dL Borderline high 150 - 199 mg/dL High 200 - 499 mg/dL Very High > or = 500 mg/dL Serum or plasma cholesterol in HDL measurement (mass/volume)Ordered By: Donato Sepulveda on 10-04-2022 Cholesterol in HDL [Mass/Vol] 70 mg/dL >40 [facility] Comment on above: The drugs N-Acetylcy steine and Metamizole may falsely depress this assay. Reference Range HDL <40 mg/dL Low HDL Cholesterol HDL >or= 60 mg/dL High HDL Cholesterol Serum or plasma cholesterol in VLDL measurement (mass/volume)Ordered By: Donato Sepulveda on 10-04-2022 Cholesterol in VLDL [Mass/Vol] 14 mg/dL 5-40 [facility] Serum or plasma low density lipoprotein (LDL) cholesterol measurement (mass/volume)Ordered By: Donato Sepulveda on 10-04-2022 Cholesterol in LDL [Mass/Vol] 70 mg/dL 0-130 [facility] No Panel InformationOrdered By: Basilio Flores on 09-04-2022 Vitamin D 25-Hydroxy 54.3 ng/mL [facility] Comment on above: Vitamin D 25(OH) Sta tus Range Deficiency <20 ng/mL (50nmol/L) Insufficiency 20 - 30 ng/mL (50 - 75 nmol/L) Sufficiency 30 - 100 ng/mL (75 - 250 nmol/L) Toxicity >100 ng/mL (>250 nmol/L) Whole blood hemoglobin A1c/t otal hemoglobin ratio (mass fraction)Ordered By: Basilio Flores on 09-04-2022 HbA1c (Bld) [Mass fraction] 10.9 % 3.8-5.6 [facility] Comment on above: Normal < 5.7 % Predi abetic 5.7 - 6.4 % Diabetic >or= 6.5 % Please note range changes. Basophil percentageOrdered B y: Donato Sepulveda on 08-07-2022 Bilirubin [Mass/Vol] 0.60 mg/dL 0.20-1.00 [facility] Comment on above: For patients on eltr ombopag therapy, use of [place] TBIL is not recommended. Chloride [Moles/Vol] 98 mmol/L 98-107 [facility] Glucose [Mass/Vol] 432 mg/dL 74-106 [facility] Comment on above: Glucose result great er than or equal to 200 mg/dLsuggests DIABETES MELLITUS per A.D.A. criteria. Potassium [Moles/Vol] 3.5 mmol/L 3.5-5.1 [facility] Protein [Mass/Vol] 6.8 g/dL 6.4-8.2 [facility] Sodium [Moles/Vol] 136 mmol/L 136-145 [facility] WBC (Bld) [#/Vol] 4.7 10*3/uL 4.4-11.0 [facility] Blood erythrocytes count (nu mber/volume)Ordered By: Donato Sepulveda on 08-07-2022 RBC (Bld) [#/Vol] 4.19 10*6/uL 4.2-5.4 [facility] Blood hemoglobin measurement (mass/volume)Ordered By: Donato Sepulveda on 08-07-2022 Hemoglobin (Bld) [Mass/Vol] 12.2 g/dL 12.0-15.0 [facility] Blood platelet mean volumeOr dered By: Donato Sepulveda on 08-07-2022 Platelet mean volume (Bld) [Entitic vol] 10.5 fL 6.2-12.0 [facility] Determination of erythrocyte mean corpuscular volume (MCV)Ordered By: Donato Sepulveda on 08-07-2022 MCV (RBC) [Entitic vol] 92.8 fL 81-99 [facility] Hematocrit Auto (Bld) [Volum e fraction]Ordered By: Donato Sepulveda on 08-07-2022 Hematocrit (Bld) [Volume fraction] 38.9 % 37-47 [facility] - Chemistry and C hemistry - challengeOrdered By: Donato Sepulveda on 08-07-2022 ALP [Catalytic activity/Vol] 70 U/L 45-117 [facility] ALT [Catalytic activity/Vol] 19 U/L 13-56 [facility] CO2 [Moles/Vol] 36.0 mmol/L 21.0-32.0 [facility] Globulin (S) [Mass/Vol] 3.4 g/dL 2.2-4.2 [facility] Magnesium [Mass/Vol] 1.8 mg/dL 1.6-2.6 [facility] Urea nitrogen/Creatinine [Mass ratio] 15.1 mg/mg 10-20 [facility] - Hematology and Cell countsOrdered By: Donato Sepulveda on 08-07-2022 Erythrocyte distribution width (RBC) [Entitic vol] 44.1 fL 35.1-43.9 [facility] Erythrocyte distribution width (RBC) [Ratio] 13.0 % 11.6-14.6 [facility] MCH (RBC) [Entitic mass] 29.1 pg 27.0-32.0 [facility] MCHC Auto (RBC) [Mass/Vol]Or dered By: Donato Sepulveda on 08-07-2022 MCHC (RBC) [Mass/Vol] 31.4 g/dL 32-36 [facility] No Panel InformationOrdered By: Donato Sepulveda on 08-07-2022 Estimated GFR (MDRD) Amer 64 mL/min >60 [facility] Comment on above: GFR Calc Estimated GFR (MDRD) Non-Af Amer 53 mL/min >60 [facility] Comment on above: Non- GFR Calc Platelets bldOrdered By: Sherwin Sepulveda on 08-07-2022 Platelets (Bld) [#/Vol] 165 10*3/uL 150-450 [facility] Serum or plasma albumin serge urement (mass/volume)Ordered By: Donato Sepulveda on 08-07-2022 Albumin [Mass/Vol] 3.4 g/dL 3.2-5.0 [facility] Serum or plasma albumin/glob ulin mass ratioOrdered By: Donato Sepulveda on 08-07-2022 Albumin/Globulin [Mass ratio] 1.0 {ratio} 0.9-2.4 [facility] Serum or plasma calcium serge urement (mass/volume)Ordered By: Donato Sepulveda on 08-07-2022 Calcium [Mass/Vol] 9.7 mg/dL 8.5-10.1 [facility] Serum or plasma creatinine m easurement (mass/volume)Ordered By: Donato Sepulveda on 08-07-2022 Creatinine [Mass/Vol] 1.06 mg/dL 0.55-1.02 [facility] Comment on above: The validity of the calculated GFR & GFRAA in patients over 70 years has not been determined. Clinical correlation is essential. Serum or plasma urea nitroge n measurement (mass/volume)Ordered By: Donato Sepulveda on 08-07-2022 Urea nitrogen [Mass/Vol] 16 mg/dL 7-18 [facility] Thin prep Papanicolaou smear with manual screeningOrdered By: balaji Sepulveda on 08-07-2022 Thin prep Papanicolaou smear with manual screening 15 U/L 15-37 [facility] Thin prep Papanicolaou smear with manual screening 2 5-15 [facility] Basophil percentageOrdered B y: Basilio Flores on 06-12-2022 Bilirubin [Mass/Vol] 1.10 mg/dL 0.20-1.00 [facility] Comment on above: For patients on eltr ombopag therapy, use of Dimension [place] TBIL is not recommended. Chloride [Moles/Vol] 99 mmol/L 98-107 [facility] Glucose [Mass/Vol] 163 mg/dL 74-106 [facility] Comment on above: Fasting Glucose resu lt greater than or equal to 126 mg/dL suggests DIABETES MELLITUS per A.D.A. criteria. Potassium [Moles/Vol] 3.4 mmol/L 3.5-5.1 [facility] Protein [Mass/Vol] 7.4 g/dL 6.4-8.2 [facility] Sodium [Moles/Vol] 141 mmol/L 136-145 [facility] WBC (Bld) [#/Vol] 8.0 10*3/uL 4.4-11.0 [facility] Blood erythrocytes count (nu mber/volume)Ordered By: Basilio Flores on 06-12-2022 RBC (Bld) [#/Vol] 4.53 10*6/uL 4.2-5.4 [facility] Blood hemoglobin measurement (mass/volume)Ordered By: Basilio Flores on 06-12-2022 Hemoglobin (Bld) [Mass/Vol] 13.2 g/dL 12.0-15.0 [facility] Blood platelet mean volumeOr dered By: Basilio Flores on 06-12-2022 Platelet mean volume (Bld) [Entitic vol] 10.4 fL 6.2-12.0 [facility] Determination of erythrocyte mean corpuscular volume (MCV)Ordered By: Basilio Flores on 06-12-2022 MCV (RBC) [Entitic vol] 90.5 fL 81-99 [facility] Hematocrit Auto (Bld) [Volum e fraction]Ordered By: Basilio Flores on 06-12-2022 Hematocrit (Bld) [Volume fraction] 41.0 % 37-47 [facility] - Chemistry and C hemistry - challengeOrdered By: Basilio Flores on 06-12-2022 ALP [Catalytic activity/Vol] 88 U/L 45-117 [facility] ALT [Catalytic activity/Vol] 20 U/L 13-56 [facility] CO2 [Moles/Vol] 34.0 mmol/L 21.0-32.0 [facility] Globulin (S) [Mass/Vol] 3.7 g/dL 2.2-4.2 [facility] Urea nitrogen/Creatinine [Mass ratio] 15.1 mg/mg 10-20 [facility] - Hematology and Cell countsOrdered By: Basilio Flores on 06-12-2022 Erythrocyte distribution width (RBC) [Entitic vol] 42.0 fL 35.1-43.9 [facility] Erythrocyte distribution width (RBC) [Ratio] 12.8 % 11.6-14.6 [facility] MCH (RBC) [Entitic mass] 29.1 pg 27.0-32.0 [facility] MCHC Auto (RBC) [Mass/Vol]Or dered By: Basilio Flores on 06-12-2022 MCHC (RBC) [Mass/Vol] 32.2 g/dL 32-36 [facility] No Panel InformationOrdered By: Basilio Flores on 06-12-2022 Estimated GFR (MDRD) Amer 82 mL/min >60 [facility] Comment on above: GFR Calc Estimated GFR (MDRD) Non-Af Amer 67 mL/min >60 [facility] Comment on above: Non- GFR Calc Vitamin D 25-Hydroxy 49.1 ng/mL [facility] Comment on above: Vitamin D 25(OH) Sta tus Range Deficiency <20 ng/mL (50nmol/L) Insufficiency 20 - 30 ng/mL (50 - 75 nmol/L) Sufficiency 30 - 100 ng/mL (75 - 250 nmol/L) Toxicity >100 ng/mL (>250 nmol/L) Platelets bldOrdered By: August Flores on 06-12-2022 Platelets (Bld) [#/Vol] 188 10*3/uL 150-450 [facility] Serum or plasma albumin serge urement (mass/volume)Ordered By: Basilio Flores on 06-12-2022 Albumin [Mass/Vol] 3.7 g/dL 3.2-5.0 [facility] Serum or plasma albumin/glob ulin mass ratioOrdered By: Basilio Flores on 06-12-2022 Albumin/Globulin [Mass ratio] 1.0 {ratio} 0.9-2.4 [facility] Serum or plasma calcium serge urement (mass/volume)Ordered By: Basilio Flores on 06-12-2022 Calcium [Mass/Vol] 9.5 mg/dL 8.5-10.1 [facility] Serum or plasma creatinine m easurement (mass/volume)Ordered By: Basilio Flores on 06-12-2022 Creatinine [Mass/Vol] 0.86 mg/dL 0.55-1.02 [facility] Comment on above: The validity of the calculated GFR & GFRAA in patients over 70 years has not been determined. Clinical correlation is essential. Serum or plasma urea nitroge n measurement (mass/volume)Ordered By: Basilio Flores on 06-12-2022 Urea nitrogen [Mass/Vol] 13 mg/dL 7-18 [facility] Thin prep Papanicolaou smear with manual screeningOrdered By: Basilio Flores on 06-12-2022 Thin prep Papanicolaou smear with manual screening 18 U/L 15-37 [facility] Thin prep Papanicolaou smear with manual screening 8 5-15 [facility] Whole blood hemoglobin A1c/t otal hemoglobin ratio (mass fraction)Ordered By: Basilio Flores on 06-12-2022 HbA1c (Bld) [Mass fraction] 9.2 % 3.8-5.6 [facility] Comment on above: Normal < 5.7 % Predi abetic 5.7 - 6.4 % Diabetic >or= 6.5 % Please note range changes. Basophil percentageOrdered B y: Donato Sepulveda on 04-17-2022 Chloride [Moles/Vol] 97 mmol/L 98-107 [facility] Glucose [Mass/Vol] 328 mg/dL 74-106 [facility] Comment on above: Glucose result great er than or equal to 200 mg/dLsuggests DIABETES MELLITUS per A.D.A. criteria. Potassium [Moles/Vol] 3.6 mmol/L 3.5-5.1 [facility] Sodium [Moles/Vol] 137 mmol/L 136-145 [facility] Laboratory - Chemistry and C hemistry - challengeOrdered By: Donato Sepulveda on 04-17-2022 CO2 [Moles/Vol] 36.0 mmol/L 21.0-32.0 [facility] Urea nitrogen/Creatinine [Mass ratio] 13.7 mg/mg 10-20 [facility] No Panel InformationOrdered By: Donato Sepulveda on 04-17-2022 Estimated GFR (MDRD) Amer 73 mL/min >60 [facility] Comment on above: GFR Calc Estimated GFR (MDRD) Non-Af Amer 60 mL/min >60 [facility] Comment on above: Non- GFR Calc Serum or plasma calcium serge urement (mass/volume)Ordered By: Donato Sepulveda on 04-17-2022 Calcium [Mass/Vol] 9.5 mg/dL 8.5-10.1 [facility] Serum or plasma creatinine m easurement (mass/volume)Ordered By: Donato Sepulveda on 04-17-2022 Creatinine [Mass/Vol] 0.95 mg/dL 0.55-1.02 [facility] Comment on above: The validity of the calculated GFR & GFRAA in patients over 70 years has not been determined. Clinical correlation is essential. Serum or plasma urea nitroge n measurement (mass/volume)Ordered By: Donato Sepulveda on 04-17-2022 Urea nitrogen [Mass/Vol] 13 mg/dL 7-18 [facility] Thin prep Papanicolaou smear with manual screeningOrdered By: Donato Sepulveda on 04-17-2022 Thin prep Papanicolaou smear with manual screening 4 5-15 [facility] Basophil percentageOrdered B y: Donato Sepulveda on 04-13-2022 Potassium [Moles/Vol] 3.2 mmol/L 3.5-5.1 [facility] Basophil percentageOrdered B y: Basilio Flores on 04-10-2022 Bilirubin [Mass/Vol] 0.50 mg/dL 0.20-1.00 [facility] Comment on above: For patients on eltr ombopag therapy, use of [place]ension [place] TBIL is not recommended. Chloride [Moles/Vol] 97 mmol/L 98-107 [facility] Glucose [Mass/Vol] 366 mg/dL 74-106 [facility] Comment on above: Glucose result great er than or equal to 200 mg/dLsuggests DIABETES MELLITUS per A.D.A. criteria. Potassium [Moles/Vol] 3.1 mmol/L 3.5-5.1 [facility] Protein [Mass/Vol] 7.3 g/dL 6.4-8.2 [facility] Sodium [Moles/Vol] 136 mmol/L 136-145 [facility] WBC (Bld) [#/Vol] 6.4 10*3/uL 4.4-11.0 [facility] Blood erythrocytes count (nu mber/volume)Ordered By: Basilio Flores on 04-10-2022 RBC (Bld) [#/Vol] 4.33 10*6/uL 4.2-5.4 [facility] Blood hemoglobin measurement (mass/volume)Ordered By: Basilio Flores on 04-10-2022 Hemoglobin (Bld) [Mass/Vol] 12.7 g/dL 12.0-15.0 [facility] Blood platelet mean volumeOr dered By: Basilio Flores on 04-10-2022 Platelet mean volume (Bld) [Entitic vol] 10.8 fL 6.2-12.0 [facility] Determination of erythrocyte mean corpuscular volume (MCV)Ordered By: Basilio Flores on 04-10-2022 MCV (RBC) [Entitic vol] 91.5 fL 81-99 [facility] Hematocrit Auto (Bld) [Volum e fraction]Ordered By: Basilio Flores on 04-10-2022 Hematocrit (Bld) [Volume fraction] 39.6 % 37-47 [facility] Laboratory - Chemistry and C hemistry - challengeOrdered By: Basilio Flores on 04-10-2022 ALP [Catalytic activity/Vol] 90 U/L 45-117 [facility] ALT [Catalytic activity/Vol] 24 U/L 13-56 [facility] CO2 [Moles/Vol] 37.0 mmol/L 21.0-32.0 [facility] Globulin (S) [Mass/Vol] 4.0 g/dL 2.2-4.2 [facility] Urea nitrogen/Creatinine [Mass ratio] 14.5 mg/mg 10-20 [facility] Laboratory - Hematology and Cell countsOrdered By: Basilio Flores on 04-10-2022 Erythrocyte distribution width (RBC) [Entitic vol] 42.4 fL 35.1-43.9 [facility] Erythrocyte distribution width (RBC) [Ratio] 12.6 % 11.6-14.6 [facility] MCH (RBC) [Entitic mass] 29.3 pg 27.0-32.0 [facility] MCHC Auto (RBC) [Mass/Vol]Or dered By: Basilio Flores on 04-10-2022 MCHC (RBC) [Mass/Vol] 32.1 g/dL 32-36 [facility] No Panel InformationOrdered By: Basilio Flores on 04-10-2022 Estimated GFR (MDRD) Amer 78 mL/min >60 [facility] Comment on above: GFR Calc Estimated GFR (MDRD) Non-Af Amer 64 mL/min >60 [facility] Comment on above: Non- GFR Calc Platelets bldOrdered By: August Flores on 04-10-2022 Platelets (Bld) [#/Vol] 216 10*3/uL 150-450 [facility] Serum or plasma albumin serge urement (mass/volume)Ordered By: Basilio Flores on 04-10-2022 Albumin [Mass/Vol] 3.3 g/dL 3.2-5.0 [facility] Serum or plasma albumin/glob ulin mass ratioOrdered By: Basilio Flores on 04-10-2022 Albumin/Globulin [Mass ratio] 0.8 {ratio} 0.9-2.4 [facility] Serum or plasma calcium serge urement (mass/volume)Ordered By: Basilio Flores on 04-10-2022 Calcium [Mass/Vol] 9.1 mg/dL 8.5-10.1 [facility] Serum or plasma creatinine m easurement (mass/volume)Ordered By: Basilio Flores on 04-10-2022 Creatinine [Mass/Vol] 0.90 mg/dL 0.55-1.02 [facility] Comment on above: The validity of the calculated GFR & GFRAA in patients over 70 years has not been determined. Clinical correlation is essential. Serum or plasma urea nitroge n measurement (mass/volume)Ordered By: Basilio Flores on 04-10-2022 Urea nitrogen [Mass/Vol] 13 mg/dL 7-18 [facility] Thin prep Papanicolaou smear with manual screeningOrdered By: Basilio Flores on 04-10-2022 Thin prep Papanicolaou smear with manual screening 22 U/L 15-37 [facility] Thin prep Papanicolaou smear with manual screening 2 5-15 [facility] No Panel InformationOrdered By: Basilio Flores on 03-06-2022 Vitamin D 25-Hydroxy 57.1 ng/mL [facility] Comment on above: Vitamin D 25(OH) Sta tus Range Deficiency <20 ng/mL (50nmol/L) Insufficiency 20 - 30 ng/mL (50 - 75 nmol/L) Sufficiency 30 - 100 ng/mL (75 - 250 nmol/L) Toxicity >100 ng/mL (>250 nmol/L) Whole blood hemoglobin A1c/t otal hemoglobin ratio (mass fraction)Ordered By: Basilio Flores on 03-06-2022 HbA1c (Bld) [Mass fraction] 7.4 % 3.8-5.6 [facility] Comment on above: Normal < 5.7 % Predi abetic 5.7 - 6.4 % Diabetic >or= 6.5 % Please note range changes. Basophil percentageon 2021 Bilirubin [Mass/Vol] 0.90 mg/dL 0.20-1.00 [facility] Work Phone: Comment on above: For patients on eltr ombopag therapy, use of [employer] [place] TBIL is not recommended. Chloride [Moles/Vol] 102 mmol/L 98-107 [facility] Work Phone: Glucose [Mass/Vol] 198 mg/dL 74-106 [facility] Work Phone: Comment on above: Fasting Glucose resu lt greater than or equal to 126 mg/dL suggests DIABETES MELLITUS per A.D.A. criteria. Potassium [Moles/Vol] 4.3 mmol/L 3.5-5.1 [facility] Work Phone: Protein [Mass/Vol] 7.3 g/dL 6.4-8.2 [facility] Work Phone: Sodium [Moles/Vol] 140 mmol/L 136-145 [facility] Work Phone: WBC (Bld) [#/Vol] 5.8 10*3/uL 4.4-11.0 [facility] Work Phone: Blood erythrocytes count (nu mber/volume)on 02-06-2022 RBC (Bld) [#/Vol] 4.46 10*6/uL 4.2-5.4 [facility] Work Phone: Blood hemoglobin measurement (mass/volume)on 02-06-2022 Hemoglobin (Bld) [Mass/Vol] 13.1 g/dL 12.0-15.0 [facility] Work Phone: Blood platelet mean volumeon 02-06-2022 Platelet mean volume (Bld) [Entitic vol] 10.5 fL 6.2-12.0 [facility] Work Phone: Determination of erythrocyte mean corpuscular volume (MCV)on 02-06-2022 MCV (RBC) [Entitic vol] 93.3 fL 81-99 [facility] Work Phone: Hematocrit Auto (Bld) [Volum e fraction]on 02-06-2022 Hematocrit (Bld) [Volume fraction] 41.6 % 37-47 [facility] Work Phone: Laboratory - Chemistry and C hemistry - challengeon 02-06-2022 ALP [Catalytic activity/Vol] 96 U/L 45-117 [facility] Work Phone: ALT [Catalytic activity/Vol] 22 U/L 13-56 [facility] Work Phone: CO2 [Moles/Vol] 32.0 mmol/L 21.0-32.0 [facility] Work Phone: Globulin (S) [Mass/Vol] 3.7 g/dL 2.2-4.2 [facility] Work Phone: Urea nitrogen/Creatinine [Mass ratio] 20.2 mg/mg 10-20 [facility] Work Phone: Laboratory - Hematology and Cell countson 02-06-2022 Erythrocyte distribution width (RBC) [Entitic vol] 46.5 fL 35.1-43.9 [facility] Work Phone: Erythrocyte distribution width (RBC) [Ratio] 13.5 % 11.6-14.6 [facility] Work Phone: MCH (RBC) [Entitic mass] 29.4 pg 27.0-32.0 [facility] Work Phone: MCHC Auto (RBC) [Mass/Vol]on 02-06-2022 MCHC (RBC) [Mass/Vol] 31.5 g/dL 32-36 [facility] Work Phone: No Panel Informationon 02-06 Estimated GFR (MDRD) Amer 66 mL/min >60 [facility] Work Phone: Comment on above: GFR Calc Estimated GFR (MDRD) Non-Af Amer 54 mL/min >60 [facility] Work Phone: Comment on above: Non- GFR Calc Platelets bldon 10-04-2022 Platelets (Bld) [#/Vol] 176 10*3/uL 150-450 [facility] Work Phone: Serum or plasma albumin serge urement (mass/volume)on 02-06-2022 Albumin [Mass/Vol] 3.6 g/dL 3.2-5.0 [facility] Work Phone: Serum or plasma albumin/glob ulin mass ratioon 02-06-2022 Albumin/Globulin [Mass ratio] 1.0 {ratio} 0.9-2.4 [facility] Work Phone: Serum or plasma calcium serge urement (mass/volume)on 02-06-2022 Calcium [Mass/Vol] 9.5 mg/dL 8.5-10.1 [facility] Work Phone: Serum or plasma creatinine m easurement (mass/volume)on 02-06-2022 Creatinine [Mass/Vol] 1.04 mg/dL 0.55-1.02 [facility] Work Phone: Comment on above: The validity of the calculated GFR & GFRAA in patients over 70 years has not been determined. Clinical correlation is essential. Serum or plasma urea nitroge n measurement (mass/volume)on 02-06-2022 Urea nitrogen [Mass/Vol] 21 mg/dL 7-18 [facility] Work Phone: Thin prep Papanicolaou smear with manual screeningon 02-06-2022 Thin prep Papanicolaou smear with manual screening 20 U/L 15-37 [facility] Work Phone: Thin prep Papanicolaou smear with manual screening 6 5-15 [facility] Work Phone: Basophil percentageon 2021 Bilirubin [Mass/Vol] 0.50 mg/dL 0.20-1.00 [facility] Work Phone: Comment on above: For patients on eltr ombopag therapy, use of [employer] TBIL is not recommended. Chloride [Moles/Vol] 106 mmol/L 98-107 [facility] Work Phone: Glucose [Mass/Vol] 149 mg/dL 74-106 [facility] Work Phone: Comment on above: Fasting Glucose resu lt greater than or equal to 126 mg/dL suggests DIABETES MELLITUS per A.D.A. criteria. Potassium [Moles/Vol] 3.6 mmol/L 3.5-5.1 [facility] Work Phone: Protein [Mass/Vol] 6.7 g/dL 6.4-8.2 [facility] Work Phone: Sodium [Moles/Vol] 142 mmol/L 136-145 [facility] Work Phone: WBC (Bld) [#/Vol] 6.0 10*3/uL 4.4-11.0 [facility] Work Phone: Blood erythrocytes count (nu mber/volume)on 12-05-2021 RBC (Bld) [#/Vol] 4.12 10*6/uL 4.2-5.4 [facility] Work Phone: Blood hemoglobin measurement (mass/volume)on 12-05-2021 Hemoglobin (Bld) [Mass/Vol] 11.9 g/dL 12.0-15.0 [facility] Work Phone: Blood platelet mean volumeon 12-05-2021 Platelet mean volume (Bld) [Entitic vol] 10.9 fL 6.2-12.0 [facility] Work Phone: Determination of erythrocyte mean corpuscular volume (MCV)on 12-05-2021 MCV (RBC) [Entitic vol] 92.5 fL 81-99 [facility] Work Phone: Hematocrit Auto (Bld) [Volum e fraction]on 12-05-2021 Hematocrit (Bld) [Volume fraction] 38.1 % 37-47 [facility] Work Phone: Laboratory - Chemistry and C hemistry - challengeon 12-05-2021 ALP [Catalytic activity/Vol] 86 U/L 45-117 [facility] Work Phone: ALT [Catalytic activity/Vol] 17 U/L 13-56 [facility] Work Phone: CO2 [Moles/Vol] 34.0 mmol/L 21.0-32.0 [facility] Work Phone: Globulin (S) [Mass/Vol] 3.6 g/dL 2.2-4.2 [facility] Work Phone: Urea nitrogen/Creatinine [Mass ratio] 14.5 mg/mg 10-20 [facility] Work Phone: Laboratory - Hematology and Cell countson 12-05-2021 Erythrocyte distribution width (RBC) [Entitic vol] 45.8 fL 35.1-43.9 [facility] Work Phone: Erythrocyte distribution width (RBC) [Ratio] 13.4 % 11.6-14.6 [facility] Work Phone: MCH (RBC) [Entitic mass] 28.9 pg 27.0-32.0 [facility] Work Phone: MCHC Auto (RBC) [Mass/Vol]on 12-05-2021 MCHC (RBC) [Mass/Vol] 31.2 g/dL 32-36 [facility] Work Phone: No Panel Informationon 12-05 Estimated GFR (MDRD) Amer 78 mL/min >60 [facility] Work Phone: Comment on above: GFR Calc Estimated GFR (MDRD) Non-Af Amer 64 mL/min >60 [facility] Work Phone: Comment on above: Non- GFR Calc Vitamin D 25-Hydroxy 90.8 ng/mL [facility] Work Phone: Comment on above: Vitamin D 25(OH) Sta tus Range Deficiency <20 ng/mL (50nmol/L) Insufficiency 20 - 30 ng/mL (50 - 75 nmol/L) Sufficiency 30 - 100 ng/mL (75 - 250 nmol/L) Toxicity >100 ng/mL (>250 nmol/L) Platelets bldon 12-05-2021 Platelets (Bld) [#/Vol] 162 10*3/uL 150-450 [facility] Work Phone: Serum or plasma albumin serge urement (mass/volume)on 12-05-2021 Albumin [Mass/Vol] 3.1 g/dL 3.2-5.0 [facility] Work Phone: Serum or plasma albumin/glob ulin mass ratioon 12-05-2021 Albumin/Globulin [Mass ratio] 0.9 {ratio} 0.9-2.4 [facility] Work Phone: Serum or plasma calcium serge urement (mass/volume)on 12-05-2021 Calcium [Mass/Vol] 9.3 mg/dL 8.5-10.1 [facility] Work Phone: Serum or plasma creatinine m easurement (mass/volume)on 12-05-2021 Creatinine [Mass/Vol] 0.90 mg/dL 0.55-1.02 [facility] Work Phone: Comment on above: The validity of the calculated GFR & GFRAA in patients over 70 years has not been determined. Clinical correlation is essential. Serum or plasma urea nitroge n measurement (mass/volume)on 12-05-2021 Urea nitrogen [Mass/Vol] 13 mg/dL 7-18 [facility] Work Phone: Thin prep Papanicolaou smear with manual screeningon 12-05-2021 Thin prep Papanicolaou smear with manual screening 18 U/L 15-37 [facility] Work Phone: Thin prep Papanicolaou smear with manual screening 2 5-15 [facility] Work Phone: Whole blood hemoglobin A1c/t otal hemoglobin ratio (mass fraction)on 12-05-2021 HbA1c (Bld) [Mass fraction] 7.4 % 3.8-5.6 [facility] Work Phone: Comment on above: Normal < 5.7 % Predi abetic 5.7 - 6.4 % Diabetic >or= 6.5 % Please note range changes. Whole blood hemoglobin A1c/t otal hemoglobin ratio (mass fraction)on 11-14-2021 HbA1c (Bld) [Mass fraction] 8.5 % 3.8-5.6 [facility] Work Phone: Comment on above: Normal < 5.7 % Predi abetic 5.7 - 6.4 % Diabetic >or= 6.5 % Please note range changes. Whole blood hemoglobin A1c/t otal hemoglobin ratio (mass fraction)on 10-17-2021 HbA1c (Bld) [Mass fraction] 7.7 % 3.8-5.6 [facility] Work Phone: Comment on above: Normal < 5.7 % Predi abetic 5.7 - 6.4 % Diabetic >or= 6.5 % Please note range changes. Basophil percentageon 2021 Bilirubin [Mass/Vol] 0.40 mg/dL 0.20-1.00 [facility] Work Phone: Comment on above: For patients on eltr ombopag therapy, use of [place] TBIL is not recommended. Chloride [Moles/Vol] 105 mmol/L 98-107 [facility] Work Phone: Cholesterol [Mass/Vol] 130 mg/dL <200 [facility] Work Phone: Comment on above: <200 mg/dL Desirable 200-240 mg/dL Borderline >240 mg/dL High Risk Glucose [Mass/Vol] 127 mg/dL 74-106 [facility] Work Phone: Comment on above: Fasting Glucose resu lt greater than or equal to 126 mg/dL suggests DIABETES MELLITUS per A.D.A. criteria. Potassium [Moles/Vol] 3.7 mmol/L 3.5-5.1 [facility] Work Phone: Protein [Mass/Vol] 6.4 g/dL 6.4-8.2 [facility] Work Phone: Sodium [Moles/Vol] 145 mmol/L 136-145 [facility] Work Phone: Triglyceride [Mass/Vol] 77 mg/dL <199 [facility] Work Phone: Comment on above: The drugs N-Acetylcy steine and Metamizole may falsely depress this assay.Serum Triglycerides Reference Interval Normal <150 mg/dL Borderline high 150 - 199 mg/dL High 200 - 499 mg/dL Very High > or = 500 mg/dL WBC (Bld) [#/Vol] 5.7 10*3/uL 4.4-11.0 [facility] Work Phone: Blood erythrocytes count (nu mber/volume)on 10-05-2021 RBC (Bld) [#/Vol] 4.01 10*6/uL 4.2-5.4 [facility] Work Phone: Blood hemoglobin measurement (mass/volume)on 10-05-2021 Hemoglobin (Bld) [Mass/Vol] 11.5 g/dL 12.0-15.0 [facility] Work Phone: Blood platelet mean volumeon 10-05-2021 Platelet mean volume (Bld) [Entitic vol] 11.3 fL 6.2-12.0 [facility] Work Phone: Determination of erythrocyte mean corpuscular volume (MCV)on 10-05-2021 MCV (RBC) [Entitic vol] 93.3 fL 81-99 [facility] Work Phone: Hematocrit Auto (Bld) [Volum e fraction]on 10-05-2021 Hematocrit (Bld) [Volume fraction] 37.4 % 37-47 [facility] Work Phone: Laboratory - Chemistry and C hemistry - challengeon 10-05-2021 ALP [Catalytic activity/Vol] 80 U/L 45-117 [facility] Work Phone: ALT [Catalytic activity/Vol] 16 U/L 13-56 [facility] Work Phone: CO2 [Moles/Vol] 29.0 mmol/L 21.0-32.0 [facility] Work Phone: Globulin (S) [Mass/Vol] 3.1 g/dL 2.2-4.2 [facility] Work Phone: Urea nitrogen/Creatinine [Mass ratio] 17.1 mg/mg 10-20 [facility] Work Phone: Laboratory - Hematology and Cell countson 10-05-2021 Erythrocyte distribution width (RBC) [Entitic vol] 44.9 fL 35.1-43.9 [facility] Work Phone: Erythrocyte distribution width (RBC) [Ratio] 13.2 % 11.6-14.6 [facility] Work Phone: MCH (RBC) [Entitic mass] 28.7 pg 27.0-32.0 [facility] Work Phone: MCHC Auto (RBC) [Mass/Vol]on 10-05-2021 MCHC (RBC) [Mass/Vol] 30.7 g/dL 32-36 [facility] Work Phone: No Panel Informationon 10-05 Estimated GFR (MDRD) Amer 65 mL/min >60 [facility] Work Phone: Comment on above: GFR Calc Estimated GFR (MDRD) Non-Af Amer 54 mL/min >60 [facility] Work Phone: Comment on above: Non- GFR Calc Platelets bldon 10-05-2021 Platelets (Bld) [#/Vol] 164 10*3/uL 150-450 [facility] Work Phone: Serum or plasma albumin serge urement (mass/volume)on 10-05-2021 Albumin [Mass/Vol] 3.3 g/dL 3.2-5.0 [facility] Work Phone: Serum or plasma albumin/glob ulin mass ratioon 10-05-2021 Albumin/Globulin [Mass ratio] 1.1 {ratio} 0.9-2.4 [facility] Work Phone: Serum or plasma calcium serge urement (mass/volume)on 10-05-2021 Calcium [Mass/Vol] 8.8 mg/dL 8.5-10.1 [facility] Work Phone: Serum or plasma cholesterol in HDL measurement (mass/volume)on 10-05-2021 Cholesterol in HDL [Mass/Vol] 47 mg/dL >40 [facility] Work Phone: Comment on above: The drugs N-Acetylcy steine and Metamizole may falsely depress this assay. Reference Range HDL <40 mg/dL Low HDL Cholesterol HDL >or= 60 mg/dL High HDL Cholesterol Serum or plasma cholesterol in VLDL measurement (mass/volume)on 10-05-2021 Cholesterol in VLDL [Mass/Vol] 15 mg/dL 5-40 [facility] Work Phone: Serum or plasma creatinine m easurement (mass/volume)on 10-05-2021 Creatinine [Mass/Vol] 1.05 mg/dL 0.55-1.02 [facility] Work Phone: Comment on above: The validity of the calculated GFR & GFRAA in patients over 70 years has not been determined. Clinical correlation is essential. Serum or plasma low density lipoprotein (LDL) cholesterol measurement (mass/volume)on 10-05-2021 Cholesterol in LDL [Mass/Vol] 68 mg/dL 0-130 [facility] Work Phone: Serum or plasma urea nitroge n measurement (mass/volume)on 10-05-2021 Urea nitrogen [Mass/Vol] 18 mg/dL 7-18 [facility] Work Phone: Thin prep Papanicolaou smear with manual screeningon 10-05-2021 Thin prep Papanicolaou smear with manual screening 18 U/L 15-37 [facility] Work Phone: Thin prep Papanicolaou smear with manual screening 11 5-15 [facility] Work Phone: No Panel Informationon 09-05 Vitamin D 25-Hydroxy 44.4 ng/mL [facility] Work Phone: Comment on above: Vitamin D 25(OH) Sta tus Range Deficiency <20 ng/mL (50nmol/L) Insufficiency 20 - 30 ng/mL (50 - 75 nmol/L) Sufficiency 30 - 100 ng/mL (75 - 250 nmol/L) Toxicity >100 ng/mL (>250 nmol/L) Whole blood hemoglobin A1c/t otal hemoglobin ratio (mass fraction)on 09-05-2021 HbA1c (Bld) [Mass fraction] 8.3 % 3.8-5.6 [facility] Work Phone: Comment on above: Normal < 5.7 % Predi abetic 5.7 - 6.4 % Diabetic >or= 6.5 % Please note range changes. Basophil percentageon 2021 Bilirubin [Mass/Vol] 0.40 mg/dL 0.20-1.00 [facility] Work Phone: Comment on above: For patients on eltr ombopag therapy, use of [place] TBIL is not recommended. Chloride [Moles/Vol] 102 mmol/L 98-107 [facility] Work Phone: Glucose [Mass/Vol] 358 mg/dL 74-106 [facility] Work Phone: Comment on above: Glucose result great er than or equal to 200 mg/dLsuggests DIABETES MELLITUS per A.D.A. criteria. Potassium [Moles/Vol] 3.3 mmol/L 3.5-5.1 [facility] Work Phone: Protein [Mass/Vol] 6.8 g/dL 6.4-8.2 [facility] Work Phone: Sodium [Moles/Vol] 139 mmol/L 136-145 [facility] Work Phone: WBC (Bld) [#/Vol] 5.6 10*3/uL 4.4-11.0 [facility] Work Phone: Blood erythrocytes count (nu mber/volume)on 08-08-2021 RBC (Bld) [#/Vol] 3.99 10*6/uL 4.2-5.4 [facility] Work Phone: Blood hemoglobin measurement (mass/volume)on 08-08-2021 Hemoglobin (Bld) [Mass/Vol] 11.5 g/dL 12.0-15.0 [facility] Work Phone: Blood platelet mean volumeon 08-08-2021 Platelet mean volume (Bld) [Entitic vol] 11.0 fL 6.2-12.0 [facility] Work Phone: Determination of erythrocyte mean corpuscular volume (MCV)on 08-08-2021 MCV (RBC) [Entitic vol] 91.7 fL 81-99 [facility] Work Phone: Hematocrit Auto (Bld) [Volum e fraction]on 08-08-2021 Hematocrit (Bld) [Volume fraction] 36.6 % 37-47 [facility] Work Phone: Laboratory - Chemistry and C hemistry - challengeon 08-08-2021 ALP [Catalytic activity/Vol] 85 U/L 45-117 [facility] Work Phone: ALT [Catalytic activity/Vol] 17 U/L 13-56 [facility] Work Phone: CO2 [Moles/Vol] 33.0 mmol/L 21.0-32.0 [facility] Work Phone: Globulin (S) [Mass/Vol] 3.8 g/dL 2.2-4.2 [facility] Work Phone: Urea nitrogen/Creatinine [Mass ratio] 12.7 mg/mg 10-20 [facility] Work Phone: Laboratory - Hematology and Cell countson 08-08-2021 Erythrocyte distribution width (RBC) [Entitic vol] 43.0 fL 35.1-43.9 [facility] Work Phone: Erythrocyte distribution width (RBC) [Ratio] 12.7 % 11.6-14.6 [facility] Work Phone: MCH (RBC) [Entitic mass] 28.8 pg 27.0-32.0 [facility] Work Phone: MCHC Auto (RBC) [Mass/Vol]on 08-08-2021 MCHC (RBC) [Mass/Vol] 31.4 g/dL 32-36 [facility] Work Phone: No Panel Informationon 08-08 Estimated GFR (MDRD) Amer 67 mL/min >60 [facility] Work Phone: Comment on above: GFR Calc Estimated GFR (MDRD) Non-Af Amer 56 mL/min >60 [facility] Work Phone: Comment on above: Non- GFR Calc Platelets bldon 08-08-2021 Platelets (Bld) [#/Vol] 155 10*3/uL 150-450 [facility] Work Phone: Serum or plasma albumin serge urement (mass/volume)on 08-08-2021 Albumin [Mass/Vol] 3.0 g/dL 3.2-5.0 [facility] Work Phone: Serum or plasma albumin/glob ulin mass ratioon 08-08-2021 Albumin/Globulin [Mass ratio] 0.8 {ratio} 0.9-2.4 [facility] Work Phone: Serum or plasma calcium serge urement (mass/volume)on 08-08-2021 Calcium [Mass/Vol] 9.3 mg/dL 8.5-10.1 [facility] Work Phone: Serum or plasma creatinine m easurement (mass/volume)on 08-08-2021 Creatinine [Mass/Vol] 1.02 mg/dL 0.55-1.02 [facility] Work Phone: Comment on above: The validity of the calculated GFR & GFRAA in patients over 70 years has not been determined. Clinical correlation is essential. Serum or plasma urea nitroge n measurement (mass/volume)on 08-08-2021 Urea nitrogen [Mass/Vol] 13 mg/dL 7-18 [facility] Work Phone: Thin prep Papanicolaou smear with manual screeningon 08-08-2021 Thin prep Papanicolaou smear with manual screening 15 U/L 15-37 [facility] Work Phone: Thin prep Papanicolaou smear with manual screening 4 5-15 [facility] Work Phone: Basophil percentageon 2021 Basophil percentage 3.6 mg/dL 2.5-4.9 [facility] Work Phone: Chloride [Moles/Vol] 99 mmol/L 98-107 [facility] Work Phone: Glucose [Mass/Vol] 311 mg/dL 74-106 [facility] Work Phone: Comment on above: Glucose result great er than or equal to 200 mg/dLsuggests DIABETES MELLITUS per A.D.A. criteria. Potassium [Moles/Vol] 3.7 mmol/L 3.5-5.1 [facility] Work Phone: Sodium [Moles/Vol] 139 mmol/L 136-145 [facility] Work Phone: WBC (Bld) [#/Vol] 6.1 10*3/uL 4.4-11.0 [facility] Work Phone: Blood erythrocytes count (nu mber/volume)on 07-12-2021 RBC (Bld) [#/Vol] 4.40 10*6/uL 4.2-5.4 [facility] Work Phone: Blood hemoglobin measurement (mass/volume)on 07-12-2021 Hemoglobin (Bld) [Mass/Vol] 12.5 g/dL 12.0-15.0 [facility] Work Phone: Blood platelet mean volumeon 07-12-2021 Platelet mean volume (Bld) [Entitic vol] 11.0 fL 6.2-12.0 [facility] Work Phone: Determination of erythrocyte mean corpuscular volume (MCV)on 07-12-2021 MCV (RBC) [Entitic vol] 90.7 fL 81-99 [facility] Work Phone: Hematocrit Auto (Bld) [Volum e fraction]on 07-12-2021 Hematocrit (Bld) [Volume fraction] 39.9 % 37-47 [facility] Work Phone: Laboratory - Chemistry and C hemistry - challengeon 07-12-2021 CO2 [Moles/Vol] 34.0 mmol/L 21.0-32.0 [facility] Work Phone: Urea nitrogen/Creatinine [Mass ratio] 14.2 mg/mg 10-20 [facility] Work Phone: Laboratory - Hematology and Cell countson 07-12-2021 Erythrocyte distribution width (RBC) [Entitic vol] 42.3 fL 35.1-43.9 [facility] Work Phone: Erythrocyte distribution width (RBC) [Ratio] 12.8 % 11.6-14.6 [facility] Work Phone: MCH (RBC) [Entitic mass] 28.4 pg 27.0-32.0 [facility] Work Phone: MCHC Auto (RBC) [Mass/Vol]on 07-12-2021 MCHC (RBC) [Mass/Vol] 31.3 g/dL 32-36 [facility] Work Phone: No Panel Informationon 07-12 Estimated GFR (MDRD) Amer 64 mL/min >60 [facility] Work Phone: Comment on above: GFR Calc Estimated GFR (MDRD) Non-Af Amer 53 mL/min >60 [facility] Work Phone: Comment on above: Non- GFR Calc Parathyroid Hormone (Intact) 38.0 pg/mL 18.4-80.1 [facility] Work Phone: Vitamin D 25-Hydroxy 10.0 ng/mL [facility] Work Phone: Comment on above: Vitamin D 25(OH) Sta tus Range Deficiency <20 ng/mL (50nmol/L) Insufficiency 20 - 30 ng/mL (50 - 75 nmol/L) Sufficiency 30 - 100 ng/mL (75 - 250 nmol/L) Toxicity >100 ng/mL (>250 nmol/L) Platelets bldon 07-12-2021 Platelets (Bld) [#/Vol] 188 10*3/uL 150-450 [facility] Work Phone: Serum or plasma albumin serge urement (mass/volume)on 07-12-2021 Albumin [Mass/Vol] 3.2 g/dL 3.2-5.0 [facility] Work Phone: Serum or plasma calcium serge urement (mass/volume)on 07-12-2021 Calcium [Mass/Vol] 9.8 mg/dL 8.5-10.1 [facility] Work Phone: Serum or plasma creatinine m easurement (mass/volume)on 07-12-2021 Creatinine [Mass/Vol] 1.06 mg/dL 0.55-1.02 [facility] Work Phone: Comment on above: The validity of the calculated GFR & GFRAA in patients over 70 years has not been determined. Clinical correlation is essential. Serum or plasma urea nitroge n measurement (mass/volume)on 07-12-2021 Urea nitrogen [Mass/Vol] 15 mg/dL 7-18 [facility] Work Phone: Clinical Summary: HMSPatient IDon 03-16-2019 OOP [facility] Work Phone: Office Visit: New - 1st visi t with practice, Rm: PT2on 03-16-2019 NEGATED: Highlighted rowMRI (magnetic resonance imaging) history of the cervical spine on 11/24/2018 at [facility] Work Phone: NEGATED: Highlighted rowTobacco smoking status NHIS Tobacco smoking status NHIS [facility] Work Phone: Vital Signs Date Time Vital Sign Value Performing Clinician Facility 02-19-2025 09:44-0400 Body height 162.[address] Donato Sepulveda MD Work Phone: [facility] 10-20-2024 18:22-0400 Diastolic blood pressure 78 mm[Hg] Dr. Basilio Flores MD Work Phone: 9(793)436-580179 [place] [address] 10-20-2024 18:22-0400 Heart rate 72 /min Dr. Basilio Flores MD Work Phone: 9(794)310-823879 [place] [address] 10-20-2024 18:22-0400 Respiratory rate 18 /min Dr. Basilio Flores MD Work Phone: 8(539)419-907979 [place] [address] 10-20-2024 18:22-0400 SaO2% (BldA) [Mass fraction] 94 % Dr. Basilio Flores MD Work Phone: 2(184)400-329079 [place] [address] 10-20-2024 18:22-0400 Systolic blood pressure 164 mm[Hg] Dr. Basilio Flores MD Work Phone: 1(324)929-257279 [place] [address] 10-20-2024 12:21-0400 Body temperature 97.9 [degF] Dr. Basilio Flores MD Work Phone: 0(909)818-903279 [place] [address] 10-20-2024 03:45-0400 Body mass index (BMI) [Ratio] 19.7 kg/m2 Dr. Basilio Flores MD Work Phone: 4(120)064-774079 [place] [address] 10-20-2024 03:45-0400 Body weight 52.[address] Basilio Flores MD Work Phone: 6(897)524-114379 [place] [address] 10-19-2024 10:15-0400 Body height 162.[address] Basilio Flores MD Work Phone: 9(013)674-454679 [place] [address] 10-18-2024 21:51-0400 Body temperature 97.8 [degF] Dr. Basilio Flores MD Work Phone: 4(670)394-057679 [place] [address] 10-18-2024 21:51-0400 Diastolic blood pressure 75 mm[Hg] Dr. Basilio Flores MD Work Phone: 4(858)291-645679 [place] [address] 10-18-2024 21:51-0400 Heart rate 83 /min Dr. Basilio Flores MD Work Phone: 7(472)872-341079 [place] [address] 10-18-2024 21:51-0400 Respiratory rate 16 /min Dr. Basilio Flores MD Work Phone: 8(812)331-342579 [place] [address] 10-18-2024 21:51-0400 SaO2% (BldA) [Mass fraction] 94 % Dr. Basilio Flores MD Work Phone: 1(544)254-284779 [place] [address] 10-18-2024 21:51-0400 Systolic blood pressure 169 mm[Hg] Dr. Basilio Flores MD Work Phone: 1(019)855-397279 [place] [address] 10-18-2024 16:46-0400 Body height 157.[address] Basilio Flores MD Work Phone: 7(859)111-498479 [place] [address] 10-18-2024 16:46-0400 Body mass index (BMI) [Ratio] 22.6 kg/m2 Dr. Basilio Flores MD Work Phone: 7(020)392-304579 [place] [address] 10-18-2024 16:46-0400 Body weight 56.[address] Basilio Flores MD Work Phone: 5(955)832-225079 [place] [address] 08-24-2024 09:43-0400 Body temperature 98.9 [degF] Dr. Basilio Flores MD Work Phone: 5(540)879-278079 [place] [address] 08-24-2024 09:43-0400 Diastolic blood pressure 69 mm[Hg] Dr. Basilio Flores MD Work Phone: 6(289)903-644979 [place] [address] 08-24-2024 09:43-0400 Heart rate 72 /min Dr. Basilio Flores MD Work Phone: 7(018)006-181379 [place] [address] 08-24-2024 09:43-0400 Respiratory rate 16 /min Dr. Basilio Flores MD Work Phone: 9(630)506-115679 [place] [address] 08-24-2024 09:43-0400 SaO2% (BldA) [Mass fraction] 98 % Dr. Basilio Flores MD Work Phone: 6(118)282-570579 [place] [address] 08-24-2024 09:43-0400 Systolic blood pressure 149 mm[Hg] Dr. Basilio Flores MD Work Phone: 2(630)449-514779 [place] [address] 08-24-2024 08:47-0400 Body height 157.[address] Basilio Flores MD Work Phone: 2(668)397-402279 [place] [address] 08-24-2024 08:47-0400 Body mass index (BMI) [Ratio] 22.1 kg/m2 Dr. Basilio Flores MD Work Phone: 5(574)793-126179 [place] [address] 08-24-2024 08:47-0400 Body weight [address] Basilio Flores MD Work Phone: 1(381)061-668179 [place] [address] 06-08-2023 09:40-0500 Diastolic blood pressure 77 mm[Hg] Dr. Basilio Flores Work Phone: 4(707)286-766579 [place] [address] 06-08-2023 09:40-0500 Heart rate 82 /min Dr. Basilio Flores Work Phone: 3(099)585-342379 [place] [address] 06-08-2023 09:40-0500 Respiratory rate 16 /min Dr. Basilio Flores Work Phone: 7(068)998-930579 [place] [address] 06-08-2023 09:40-0500 SaO2% (BldA) [Mass fraction] 98 % Dr. Basilio Flores Work Phone: 7(360)813-091879 [place] [address] 06-08-2023 09:40-0500 Systolic blood pressure 135 mm[Hg] Dr. Basilio Flores Work Phone: 8(730)975-234879 [place] [address] 06-08-2023 08:04-0500 Body height 157.[address] Basilio Flores Work Phone: 0(846)033-284879 [place] [address] 06-08-2023 08:04-0500 Body mass index (BMI) [Ratio] 25.7 kg/m2 Dr. Basilio Flores Work Phone: 7(805)394-719379 [place] [address] 06-08-2023 08:04-0500 Body temperature 97.9 [degF] Dr. Basilio Flores Work Phone: 7(226)297-624079 [place] [address] 06-08-2023 08:04-0500 Body weight 63.[address] Basilio Flores Work Phone: 7(021)584-247279 [place] [address] 06-05-2023 08:33-0500 Diastolic blood pressure 67 mm[Hg] Dr. Basilio Flores Work Phone: 8(840)235-658779 [place] [address] 06-05-2023 08:33-0500 Heart rate 81 /min Dr. Basilio Flores Work Phone: 5(015)673-804679 [place] [address] 06-05-2023 08:33-0500 Respiratory rate 16 /min Dr. Basilio Flores Work Phone: 7(038)297-304479 [place] [address] 06-05-2023 08:33-0500 SaO2% (BldA) [Mass fraction] 93 % Dr. Basilio Flores Work Phone: 3(810)226-041279 [place] [address] 06-05-2023 08:33-0500 Systolic blood pressure 142 mm[Hg] Dr. Basilio Flores Work Phone: 6(734)720-892779 [place] [address] 06-05-2023 03:42-0500 Body height 162.[address] Basilio Flores Work Phone: 8(581)486-165779 [place] [address] 06-05-2023 03:42-0500 Body mass index (BMI) [Ratio] 23.9 kg/m2 Dr. Basilio Flores Work Phone: 0(133)039-383879 [place] [address] 06-05-2023 03:42-0500 Body temperature 97.6 [degF] Dr. Basilio Flores Work Phone: 2(978)237-456979 [place] [address] 06-05-2023 03:42-0500 Body weight 63.[address] Basilio Flores Work Phone: 1(183)002-095979 [place] [address] NEGATED: Highlighted [id number] 14:06-0500 BMI (Body Mass Index) 44.85 kg/m2 Arcenio Moreira AT [facility] Work Phone: NEGATED: Highlighted [id number] 14:06-0500 Body weight 102.06 kg Arcenio Moreira AT [facility] Work Phone: NEGATED: Highlighted [id number] 14:06-0500 Body weight 102 kg Arcenio Moreira AT [facility] Work Phone: NEGATED: Highlighted [id number] 14:06-0500 BP Diastolic 68 mm[Hg] Arcenio Moreira AT [facility] Work Phone: NEGATED: Highlighted [id number] 14:06-0500 BP Systolic 124 mm[Hg] Arcenio Moreira AT [facility] Work Phone: NEGATED: Highlighted [id number] 14:06-0500 Height 151.13 cm Arcenio Moreira AT [facility] Work Phone: NEGATED: Highlighted [id number] 14:06-0500 Height 151 cm Arcenio Moreira AT [facility] Work Phone: NEGATED: Highlighted [id number] 14:06-0500 Pulse (Heart Rate) 101 /min Arcenio Moreira AT [facility] Work Phone: Encounters Encounter Date Encounter Type Care Provider Facility Start: 03-09-2025 ambulatory Donato COLVIN Fa cility:[facility] Start: 03-02-2025 End: 03-02-2025 ambulatory Debora Schneider NP Facility[facility] Start: 02-17-2025 ambulatory Donato COLVIN Fa cility:[facility] Start: 02-17-2025 Registered Referred Donato Sepulveda MD [facility] Start: 02-09-2025 ambulatory Donato COLVIN Fa cility:[facility] Start: 02-09-2025 Registered Referred Donato Sepulveda MD -[facility] Start: 02-08-2025 End: 02-08-2025 ambulatory Debora Schneider NP Facility:[facility] Start: 01-26-2025 End: 01-26-[address] Donato Sepulveda MD Work Phone: [facility] Start: 01-26-2025 End: 01-26-2025 Patient encounter procedure Debora Schneider LIB[employer]ARY S[employer]S ASSISTANT- -[facility] Work Phone: Start: 01-12-2025 End: 01-12-[address] Donato Sepulveda MD Work Phone: [facility] Start: 01-12-2025 End: 01-12-[address] Donato Sepulveda MD -[facility] Work Phone: Start: 12-30-2024 ambulatory Donato Sepulveda OLS Fa cility:[facility] Start: 12-30-2024 Registered Referred Donato Sepulveda MD [facility] Start: 12-29-2024 End: 12-29-[address] Donato Sepulveda MD Work Phone: [facility] Start: 12-29-2024 End: 12-29-2024 Departed Referred Donato Sepulveda MD [facility] Start: 12-29-2024 Registered Referred Donato Sepulveda MD [facility] Start: 12-29-2024 End: 12-29-2024 ambulatory Efbalaji Sepulveda Facility:[facility] Start: 12-08-2024 Registered Referred Donato Sepulveda MD [facility] Start: 12-08-2024 End: 12-08-2024 ambulatory Efstuameniachar Sepulveda Facility:[facility] Start: 12-04-2024 End: 12-04-[address] Donato Sepulveda MD Work Phone: [facility] Start: 12-04-2024 End: 12-04-2024 Patient encounter procedure Debora Schneider LIBRARY SERIALS ASSISTANT-C -[facility] Work Phone: Start: 11-17-2024 End: 11-17-[address] Donato Sepulveda MD Work Phone: [facility] Start: 11-17-2024 End: 11-17-2024 Departed Referred Donato Sepulveda MD [facility] Start: 11-17-2024 Registered Referred Donato Sepulveda MD [facility] Start: 11-17-2024 End: 11-17-2024 ambulatory Donato Sepulvdea Facility:[facility] Start: 11-10-2024 End: 11-10-[address] Armando Rich MD Work Phone: -[facility] Start: 11-10-2024 End: 11-10-[address] Donato Sepulveda MD -[facility] Work Phone: Start: 10-21-2024 End: 10-21-[address] Donato Sepulveda MD Work Phone: [facility] Start: 10-21-2024 End: 10-21-2024 Patient encounter procedure Debora Sanjayangelic LIBRARY SERIALS ASSISTANT-C -[facility] Work Phone: Start: 10-20-2024 Non-patient / Non-visit Dr. Yadi Lam MD -[facility] Work Phone: Start: 10-19-2024 Non-patient / Non-visit Dr. Yadi Lam MD -[facility] Work Phone: Start: 10-18-2024 ambulatory Anali Coello Facility:[facility] Start: 10-18-2024 End: 10-20-2024 Evaluation and management of inpatient Dr. Anali Coello DO -[facility] Work Phone: Start: 10-06-2024 ambulatory Donato Rodrigues cility:[facility] Start: 10-06-2024 Registered Referred Donato Sepulveda MD -[facility] Start: 09-15-2024 End: 09-15-[address] Donato Sepulveda MD Work Phone: [facility] Start: 09-15-2024 End: 09-15-[address] Donato Sepulveda MD -[facility] Work Phone: Start: 09-08-2024 End: 09-08-[address] Basilio Flores MD Work Phone: [facility] Work Phone: Start: 09-08-2024 End: 09-08-2024 [facility]: 09-08-[facility]24 [facility] Start: 09-08-2024 End: 09-08-2024 ambulatory Donato COLVIN Facility:[facility] Start: 08-25-2024 End: 08-25-[address] Basilio Flores MD Work Phone: [facility] Work Phone: Start: 08-25-2024 End: 08-25-2024 [facility] Start: 08-24-2024 End: 08-24-2024 Admission to same day surgery center Dr. Armando Rich MD -[facility] Start: 08-24-2024 End: 08-25-[address] Basilio Flores MD Work Phone: [facility] Work Phone: Start: 08-17-2024 End: 08-17-2024 ambulatory Debora Schneider NP Facility:[facility] Start: 08-17-2024 End: 08-17-2024 Patient encounter procedure Debora Schneider LIBRARY SERIALS ASSISTANT- -[facility] Work Phone: Start: 07-15-2024 End: 07-15-[address] Basilio Flores MD Work Phone: [facility] Work Phone: Start: 07-15-2024 End: 07-15-2024 [facility] Start: 07-14-2024 End: 07-14-[address] Donato Sepulveda MD -[facility] Work Phone: Start: 07-14-2024 End: 07-15-[address] Basilio Flores MD Work Phone: [facility] Work Phone: Start: 07-14-2024 End: 07-14-2024 [facility] Start: 07-14-2024 [facility] Start: 07-14-2024 End: 07-14-2024 ambulatory Basilio Flores Facility:[facility] Start: 06-26-2024 End: 06-26-2024 ambulatory Basilio Flores Facility:[facility] Start: 06-26-2024 End: 06-26-2024 Patient encounter procedure Debora DOW -[facility] Work Phone: Start: 06-15-2024 ambulatory Basilio Flores Facility: [facility] Start: 06-15-2024 [facility] Start: 06-09-2024 ambulatory Basilio Flores Facility: [facility] Start: 06-09-2024 [facility] Start: 06-02-2024 End: 06-02-2024 [facility] Start: 06-01-2024 End: 06-02-2024 ambulatory Basilio Flores Facility:[facility] Start: 06-01-2024 End: 06-01-2024 [facility] [place] [facility] Start: 05-19-2024 End: 05-19-2024 ambulatory Basilio Flores Facility:[facility] Start: 05-19-2024 End: 05-19-[address] [facility] Start: 04-21-2024 ambulatory Basilio Flores Facility: [facility] Start: 04-21-2024 [facility] Start: 04-07-2024 End: 04-07-2024 ambulatory Basilio Flores Facility:[facility] Start: 04-07-2024 End: 04-07-2024 ambulatory Basilio Flores Facility:[facility] Start: 08-06-2023 End: 08-06-[address] Basilio Flores Work Phone: [facility] Work Phone: Start: 08-06-2023 End: 08-06-[address] Basilio Flores Work Phone: [facility] Start: 06-11-2023 End: 06-11-[address] Basilio Flores Work Phone: [facility] Work Phone: Start: 06-11-2023 End: 06-11-[address] Basilio Flores Work Phone: [facility] Start: 06-08-2023 End: 06-08-2023 Emergency department patient visit Dr. Basilio Flores Work Phone: [facility] Work Phone: Start: 06-05-2023 End: 06-05-[address] Basilio Flores Work Phone: [facility] Work Phone: Start: 06-05-2023 End: 06-05-2023 Emergency department patient visit Dr. Basilio Flores Work Phone: [facility] Work Phone: Start: 05-28-2023 End: 05-28-[address] Basilio Flores Work Phone: [facility] Work Phone: Start: 05-15-2023 End: 05-15-[address] Basilio Flores Work Phone: [facility] Work Phone: Start: 04-24-2023 End: 04-24-[address] Basilio Flores Work Phone: [facility] Work Phone: Start: 04-23-2023 End: 04-23-[address] Basilio Flores Work Phone: [facility] Work Phone: Start: 04-23-2023 End: 04-23-[address] Basilio Flores Work Phone: [facility] Start: 04-23-[address] Basilio avendano Work Phone: [facility] Start: 04-19-2023 End: 04-19-[address] Basilio Flores Work Phone: [facility] Work Phone: Start: 04-19-2023 End: 04-19-[address] Basilio Flores Work Phone: [facility] Start: 04-19-[address] Basilio avendano Work Phone: [facility] Start: 04-09-2023 End: 04-09-[address] Basilio Flores Work Phone: [facility] Work Phone: Start: 04-09-2023 End: 04-09-[address] Basilio Flores Work Phone: [facility] Start: 03-26-2023 End: 03-26-[address] Basilio Flores Work Phone: [facility] Work Phone: Start: 03-13-2023 End: 03-13-[address] Basilio Flores Work Phone: [facility] Work Phone: Start: 03-12-2023 End: 03-12-[address] Basilio Flores Work Phone: [facility] Start: 03-07-2023 End: 03-07-[address] Basilio Flores Work Phone: [facility] Work Phone: Start: 02-05-2023 End: 02-05-[address] Basilio Flores Work Phone: [facility] Start: 02-04-2023 End: 02-04-[address] Basilio Flores Work Phone: [facility] Work Phone: Start: 01-30-2023 End: 01-30-[address] Basilio Flores Work Phone: [facility] Work Phone: Start: 01-22-2023 End: 01-22-[address] Basilio Flores Work Phone: [facility] Work Phone: Start: 01-17-2023 End: 01-17-[address] Basilio Flores Work Phone: [facility] Work Phone: Start: 01-01-2023 End: 01-01-[address] Basilio Flores Work Phone: [facility] Work Phone: Start: 12-07-2022 End: 12-07-[address] Basilio Flores Work Phone: [facility] Work Phone: Start: 12-07-2022 End: 12-07-[address] Basilio Flores Work Phone: [facility] Start: 12-04-2022 End: 12-04-[address] Basilio Flores Work Phone: [facility] Work Phone: Start: 12-04-2022 End: 12-04-[address] Basilio Flores Work Phone: [facility] Start: 12-04-[address] Basilio avendano Work Phone: [facility] Start: 11-21-2022 End: 11-21-[address] Basilio Flores Work Phone: [facility] Work Phone: Start: 11-21-2022 End: 11-21-[address] Basilio Flores Work Phone: [facility] Start: 11-21-[address] Basilio avendano Work Phone: [facility] Start: 11-20-2022 End: 11-20-[address] Basilio Flores Work Phone: [facility] Work Phone: Start: 10-31-2022 End: 10-31-[address] Basilio Flores Work Phone: [facility] Work Phone: Start: 10-09-2022 End: 10-09-[address] Basilio Flores Work Phone: [facility] Work Phone: Start: 10-09-2022 End: 10-09-[address] Basilio Flores Work Phone: [facility] Start: 10-09-[address] Basilio avendano Work Phone: [facility] Start: 10-05-2022 End: 10-05-[address] Basilio Flores Work Phone: [facility] Work Phone: Start: 10-05-2022 End: 10-05-[address] Basilio Flores Work Phone: [facility] Start: 10-05-[address] Basilio avendano Work Phone: [facility] Start: 10-04-2022 End: 10-04-[address] Basilio Flores Work Phone: [facility] Start: 10-04-[address] Basilio avendano Work Phone: [facility] Start: 09-25-2022 End: 09-25-[address] Basilio Flores Work Phone: [facility] Work Phone: Start: 09-04-2022 End: 09-04-[address] Basilio Flores Work Phone: [facility] Work Phone: Start: 09-04-2022 End: 09-04-[address] Basilio Flores Work Phone: [facility] Start: 09-03-2022 End: 09-03-[address] Basilio Flores Work Phone: [facility] Work Phone: Start: 08-07-2022 End: 08-07-[address] Basilio Flores Work Phone: [facility] Work Phone: Start: 08-07-2022 End: 08-07-[address] Basilio Flores Work Phone: [facility] Start: 08-02-2022 End: 08-02-[address] Basilio Flores Work Phone: [facility] Start: 07-24-2022 End: 07-24-[address] Basilio Flores Work Phone: [facility] Start: 07-21-2022 End: 07-21-[address] Basilio Flores Work Phone: [phone] [place] [address] Start: 07-13-2022 End: 07-13-[address] Basilio Flores Work Phone: [phone] [place] [address] Start: 07-02-2022 End: 07-02-[address] Basilio Flores Work Phone: [phone] [place] [address] Start: 06-15-2022 End: 06-15-[address] Basilio Flores Work Phone: [phone] [place] [address] Start: 06-12-2022 End: 06-12-[address] Basilio Flores Work Phone: [phone] [place] [address] Work Phone: Start: 06-12-2022 End: 06-12-[address] Basilio Flores Work Phone: [phone] [place] [address] Start: 05-29-2022 End: 05-29-[address] Basilio Flores Work Phone: [phone] [place] [address] Start: 04-17-2022 End: 04-17-[address] Basilio Flores Work Phone: [phone] [place] [address] Start: 04-17-[address] Basilio avendano Work Phone: [phone] [place] [address] Start: 04-13-2022 End: 04-13-[address] Basilio Flores Work Phone: [phone] [place] [address] Start: 04-13-[address] Basilio avendano Work Phone: [phone] [place] [address] Start: 04-10-2022 End: 04-10-[address] Basilio Flores Work Phone: [facility] Work Phone: Start: 04-10-2022 End: 04-10-[address] Basilio Flores Work Phone: [facility] Start: 04-05-2022 End: 04-05-[address] Basilio Flores Work Phone: [facility] Start: 03-27-2022 End: 03-27-[address] Basilio Flores Work Phone: [facility] Start: 03-06-2022 End: 03-06-[address] Basilio Flores Work Phone: [facility] Work Phone: Start: 03-06-2022 End: 03-06-[address] Basilio Flores Work Phone: [facility] Start: 02-06-2022 End: 02-06-[address] Basilio Flores Work Phone: [facility] Work Phone: Start: 02-06-2022 End: 02-06-[address] Basilio Flores Work Phone: [facility] Start: 12-05-2021 End: 12-05-[address] Basilio Flores Work Phone: [facility] Start: 12-04-2021 End: 12-04-[address] Basilio Flores Work Phone: [facility] Start: 11-14-2021 End: 11-14-[address] Basilio Flores Work Phone: [facility] Start: 10-17-2021 End: 10-17-[address] Basilio Flores Work Phone: [facility] Start: 10-17-[address] Basilio avendano Work Phone: [facility] Start: 10-05-2021 End: 10-05-[address] Basilio Flores Work Phone: [facility] Start: 09-12-2021 End: 09-12-[address] Basilio Flores Work Phone: [facility] Start: 09-05-2021 End: 09-05-[address] Basilio Flores Work Phone: [facility] Start: 08-08-2021 End: 08-08-2021 Departed Referred [facility] Start: 08-08-2021 Registered Referred [facility] Start: 07-12-2021 End: 07-12-2021 Departed Referred [facility] Start: 03-16-2019 End: 03-16-2019 Patient encounter procedure Rachael Newman MD Work Phone: [facility] Work Phone: Procedures [...] Author Start: 02-17-2025 Registered Referred Registered Referred [facility] Start: 10-20-2024 Patient discharge [facility] Start: 10-19-2024 End: 10-19-2024 [facility] Start: 10-19-2024 Care regimes management [facility] Start: 10-19-2024 Notification of physician [facility] Start: 10-19-2024 Wound care [facility] Start: 10-19-2024 Care planning and problem solving actions [facility] Start: 10-18-2024 Following clinical pathway protocol [facility] Start: 10-18-2024 Application of ice collar, cap or bag [facility] Start: 10-18-2024 Assessment of risk of venous thromboembolism [facility] Start: 10-18-2024 Catheterization of vein [facility] Start: 10-18-2024 Consultation for treatment [facility] Start: 10-18-2024 Insertion of catheter into peripheral vein [facility] Start: 10-18-2024 Measuring intake and output [facility] Start: 10-18-2024 Oxygen therapy [facility] Start: 10-18-2024 Patient referral to dietitian [facility] Start: 10-18-2024 Providing care according to standard [facility] Start: 10-18-2024 Provision of activity privileges [facility] Start: 10-18-2024 Referral for physical therapy [facility] Start: 10-18-2024 Referral to occupational therapist [facility] Start: 10-18-2024 Referral to service [facility] Start: 10-18-2024 [facility] Start: 10-18-2024 Verification routine [facility] Start: 10-18-2024 Admission procedure [facility] Start: 10-18-2024 Hospital admission, emergency, from emergency room, medical nature [facility] Start: 10-18-2024 End: 10-18-2024 [facility] Start: 10-18-2024 End: 10-19-2024 [facility] Start: 10-18-2024 Bacteria identified in Blood by Culture Blood Culture [facility] Start: 10-18-2024 Bacteria identified in Urine by Culture Urine Culture [facility] Start: 10-18-2024 Consultation [facility] Start: 08-24-2024 Injection aa&/strd genicular nrv branches w/img NJX AA&/STRD GNCLR NRV BRNCH [facility] Start: 08-24-2024 Fluoroscopic guidance [facility] Start: 08-24-2024 Patient discharge [facility] Start: 06-08-2023 [facility] Start: 06-05-2023 Simple repair f/e/e/n/l/m 2.5cm/< RPR F/E/E/N/L/M 2.5 CM/< [facility] Start: 06-05-2023 [facility] Start: 03-16-2019 End: 03-16-2019 Appointment Appointment [facility] Work Phone: Patient Education [facility] Work Phone: Patient referral [facility] Work Phone: Urine culture [facility] Immunizations Immunization Date Immunization Notes Care Provider Fa cility 06-05-2023 tetanus toxoid, redu lloyd diphtheria toxoid, and acellular pertussis vaccine, adsorbed Dr. Basilio Flores Work Phone: [facility] 02-23-2015 Influenza virus vaccine [facility] Payers Date Payer Category Payer Medicare [id number] 2024 Self-pay [id number] 2024 Unknown [id number] Unknown [id number] Unknown [id number] 2.16.8 40.1.016768.3.579.2.462 Unknown [id number] 2.16.8 40.1.995483.3.579.2.462 Unknown [id number] 2.16.8 40.1.797375.3.579.2.462 Unknown [id number] 2.16.8 40.1.522675.3.579.2.462 Unknown [id number] 2.16.8 40.1.915003.3.579.2.462 Unknown [id number] 2.16.8 40.1.159877.3.579.2.462 Unknown [id number] 2.16.8 40.1.058606.3.579.2.462 Unknown [id number] 2.16.8 40.1.103007.3.579.2.462 Unknown [id number] 2.16.8 40.1.919682.3.579.2.462 Unknown [id number] 2.16.8 40.1.986219.3.579.2.462 Unknown [id number] 2.16.8 40.1.148795.3.579.2.462 Unknown [id number] 2.16.8 40.1.888162.3.579.2.462 Unknown [id number] 2.16.8 40.1.056209.3.579.2.462 Unknown [id number] 2.16.8 40.1.663509.3.579.2.462 Unknown [id number] 2.16.8 40.1.132183.3.579.2.462 Unknown [id number] 2.16.8 40.1.413591.3.579.2.462 Unknown [id number] 2.16.8 40.1.723329.3.579.2.462 Unknown [id number] 2.16.8 40.1.097789.3.579.2.462 Unknown [id number] 2.16.8 40.1.803341.3.579.2.462 Unknown [id number] 2.16.8 40.1.142274.3.579.2.462 Unknown [id number] 2.16.8 40.1.040200.3.579.2.462 Unknown [id number] 2.16.8 40.1.315496.3.579.2.462 Unknown [id number] 2.16.8 40.1.151447.3.579.2.462 Unknown [id number] 2.16.8 40.1.984895.3.579.2.462 Unknown [id number] 2.16.8 40.1.798776.3.579.2.462 Unknown [id number] 2.16.8 40.1.433270.3.579.2.462 Unknown [id number] 2.16.8 40.1.045843.3.579.2.462 Unknown [id number] 2.16.8 40.1.393438.3.579.2.462 Unknown [id number] 2.16.8 40.1.205231.3.579.2.462 Unknown [id number] 2.16.8 40.1.611708.3.579.2.462 Unknown [id number] 2.16.8 40.1.551302.3.579.2.462 Unknown [id number] 2.16.8 40.1.596680.3.579.2.462 Unknown [id number] 2.16.8 40.1.940379.3.579.2.462 Unknown [id number] 2.16.8 40.1.281881.3.579.2.462 Unknown [id number] 2.16.8 40.1.173790.3.579.2.462 Unknown [id number] 2.16.8 40.1.983130.3.579.2.462 Social History Date Type Detail Facility Start: 12-16-2019 End: 06-08-2023 Tobacco smoking status NHIS Unknown if ever smoked [facility] Start: 12-16-2019 None [facility] Start: 12-16-2019 Halfway [facility] Start: 12-16-2019 Non-smoker [facility] Start: 1940 Sex Assigned At Female W [facility] Start: 06-08-2023 End: 02-19-2025 Tobacco smoking status NHIS Never smoked tobacco (finding) [facility] Start: 08-06-2024 End: 08-24-2024 Sex Female (finding) [facility] Sex Female [facility] NEGATED: Highlighted rowStart: 03-16-2019 End: 03-16-2019 Alcohol use Alcohol use [facility] Work Phone: NEGATED: Highlighted rowStart: 03-16-2019 End: 03-16-2019 Details of drug misuse behavior Details of drug misuse behavior [facility] Work Phone: NEGATED: Highlighted rowStart: 03-16-2019 End: 03-16-2019 Assertion Never smoker [facility] Work Phone: Goals Date Patient Goal Desired Activity /State Functional Status Date Assessment Result Facility 10-20-2024 Functional status Patient Activi ty Bathroom Privilege [facility] Work Phone: 10-20-2024 Functional status Activity Abili ty With Assist of 1 [facility] Work Phone: 10-20-2024 Functional status Standard Walker [facility] Work Phone: Mental Status Date Assessment Result Facility 10-20-2024 Cognitive function Voice/Name [facility] Work Phone: 10-18-2024 Cognitive function Level Of Cons ciousness Awake;Appropriate;Follows Commands;Disoriented [facility] Work Phone: 08-24-2024 Cognitive function Voice/Name [facility] Work Phone: Clinical Notes 06-05-2023 to 10-20-2024 Note Date & Type Note Facility 10-20-2024 Discharge summary Note Date/Time October 20, 2024 3:53pm [facility] Medical Records Department [address] [place] [address] Discharge Summary 10/20/24 1535 MR#: [id number] Acct: [id number] Name: JUSTUS CHINCHILLA Rep #:[id number] : 1940 84 From: Ángel cuenca MD PCP: Dr. Donato Sepulveda MD Status:A DM IN Location: [place] [address] Providers Date of Admission: 10/18/24 Primary Care Physician: Dr. Donato Sepulveda MD Consultations 10/18/24 22:14 Consult: Onc/Wound/associate professor of library media Routine Comment: Reason For Visit: SEVERE HYPOGLYCEMIA/UTI [...] who presented to the emergency department at [facility] on 10/18/2024 with chief complaint of head [...] weakness and falls?84-year-old female [facility] was found to have a blood sugar [...] does not like the food at the [facility] apparently. I recommend holding all of her [...] would like to go back to the [facility] if possible today. 2. Essential hypertension, type [...] in before D/C Order can be placed): Intermediate Facility Charges/Coding Visit Charges Inpatient E&M: 30684 Disch Hosp >30min 10/20/24 1557 <Electronically signed by Ángel Lam MD> Cosigner Signature (if applicable): CC: Dr. Donato Sepulveda MD; Dr. Ángel Lam MD~ Signed [facility] Work Phone: 1(475) 244-664806-17-2025 Discharge summary [facility] Medical Records Department [address] [place] [address] Discharge Summary 10/20/24 1535 MR#: [id number] Acct: [id number] Name: JUSTUS CHINCHILLA Rep #:[id number] : 1940 84 From: Ángel cuenca MD PCP: Dr. Donato Sepulveda MD Status:A DM IN [facility] Providers Date of Admission: 10/18/24 Primary Care Physician: Dr. Donato Sepulveda MD Consultations 10/18/24 22:14 Consult: Onc/Wound/associate professor of library media Routine Comment: Reason For Visit: SEVERE HYPOGLYCEMIA/UTI [...] who presented to the emergency department at [facility] on 10/18/2024 with chief complaint of head [...] weakness and falls?84-year-old female [facility] was found to have a blood sugar [...] with holding all of her home hypoglycemics assrafa has poor p.o. intake at baseline because she does not like the food at the [facility] apparently. I recommend holding all of her [...] would like to go back to the [facility] if possible today. 2. Essential hypertension, type [...] in before D/C Order can be placed): Intermediate Facility Charges/Coding Visit Charges Inpatient E&M: 70241 Disch Hosp >30min 10/20/24 1553 Cosigner Signature (if applicable): CC: Dr. Donato Sepulveda MD; Dr. Ángel Lam MD~ Signed [facility]06-17-2025 [facility] Medical Records Department [address] [place] [address] Discharge Summary 10/20/24 1535 MR#: [id number] Acct: [id number] Name: JUSTUS CHINCHILLA Rep #: [id number] : 1940 84 From: Ángel Lam MD PCP: Dr. Donato Sepulveda MD Status:ADM IN [facility] Providers Date of Admission: 10/18/24 Primary Care Physician: Dr. Donato Sepulveda MD Consultations 10/18/24 22:14 Consult: Onc/Wound/associate professor of library media Routine Comment: Reason For Visit: SEVERE HYPOGLYCEMIA/UTI [...] who presented to the emergency department at [facility] on 10/18/2024 with chief complaint of head [...] sugar improved her mentation (more content not included)...[facility]06-17-2025 Consult note Author Perla Jaimes [facility] Note Date/Time October 20, 2024 11:4 8am [facility] Medical Records Department [address] [place] [address] Counseling Note - Pharmacy 10/20/24 1148 MR#: [id number] Acct: [id number] Name: JUSTUS CHINCHILLA Rep #:[id number] : 1940 84 From: Perla Jaimes PCP: Dr. Donato Sepulveda MD Status:A DM IN Y [facility] [place] [facility] Pharmacy Service has performed discharge [...] Signature (if applicable): Date CC: ~ Signed [facility] Work Phone: 1(963) 728-709506-17-2025 Discharge summary Author Ángel Lam [facility] Note Date/Time October 20, 2024 11:2 0am [facility] Medical Records Department [address] [place] [address] Transfer to [facility] Care MR#: [id number] Acct: [id number] Name: JUSTUS CHINCHILLA Rep #:[id number] : 1940 84 From: Ángel cuenca MD PCP: Dr. Donato Sepulveda MD Status:A DM IN Certification of patient admission REQUIRED AT TIME OF ADMISSION. I CERTIFY THAT POST-HOSPITAL ECF SERVICES ARE REQUIRED TO BE GIVEN ON AN IN-PATIENT BASIS BECAUSE OF THE ABOVE NAMED PATIENT'S NEED FOR SHELTER CARE ON A CONTINUING BASIS FOR THE CONDITION(S) FOR WHICH HE/SHE WAS RECEIVING IN-PATIENT HOSPITAL SERVICES PRIOR TO HIS/HER TRANSFER TO THE [facility]. 10/20/24 1120<Electronically signed by Ángel Lam MD> [...] her lack of p.[facility] intake at the [facility] ? She did [facility] falls at home the [facility] because of this hypoglycemia with some abrasions [...] in before D/C Order can be placed): Intermediate Facility 10/20/24 1120 <Electronically signed by Ángel Lam MD> Cosigner Signature (if applicable): CC: Dr. Donato Sepulveda MD; Dr. Anali Coello DO ~ [facility] Work Phone: 1(260) 979-624706-17-2025 Consult note [facility] Medical Records Department [address] [place] [address] Counseling Note - Pharmacy 10/20/24 1148 MR#: [id number] Acct: [id number] Name: JUSTUS CHINCHILLA Rep #:[id number] : 1940 84 From: Perla Jaimes PCP: Dr. Donato Sepulveda MD Status:A DM IN Y Location: [place] [id number] 1 Pharmacy [place] Med Reconciliation Pharmacy Service has performed discharge [...] mL 10/20/24 10/20/24 1148 Date _ Perla Perezignelvira Signature (if applicable): Date CC: ~ Signed [facility]06-17-2025 Discharge summary [facility] Medical Records Department [address] [place] [address] Transfer to [facility] MR#: [id number] Acct: [id number] Name: JUSTUS CHINCHILLA Rep #:[id number] : 1940 84 From: Ángel cuenca MD PCP: Dr. Donato Sepulveda MD Status:A DM IN Certification of patient admission REQUIRED AT TIME OF ADMISSION. I CERTIFY THAT POST-HOSPITAL ECF SERVICES ARE REQUIRED TO BE GIVEN ON AN IN-PATIENT BASIS BECAUSE OF THE ABOVE NAMED PATIENT'S NEED FOR SHELTER CARE ON A CONTINUING BASIS FOR THE CONDITION(S) FOR WHICH HE/SHE WAS RECEIVING IN-PATIENT HOSPITAL SERVICES PRIOR TO HIS/HER TRANSFER TO THE [facility]. 10/20/24 1120 Diet Diet Order/Speech [...] her lack of [facility] at the [facility] ? She did [facility] falls at home the [facility] because of this hypoglycemia with some abrasions [...] in before D/C Order can be placed): Intermediate Facility 10/20/24 1120 Cosigner Signature (if applicable): CC: Dr. Donato Sepulveda MD; Dr. Anali Coello, DO ~ [facility]06-16-2025 Progress note Author Ángel Lam [facility] Note Date/Time October 19, 2024 7:02 pm [facility] Medical Records Department [address] [place] [address] Progress Note - Hospitalist 10/19/24 1852 MR#: [id number] Acct: [id number] Name: JUSTUS CHINCHILLA Rep #:[id number] : 1940 84 From: Ángel cuenca MD PCP: Dr. 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 Mild anterior frontal scalp swelling. No acute calvarial defect. Reading Location: [facility] Physical Exam Narrative General: Alert, Oriented [...] her lack of p.[facility]. intake at the [facility] ? She did have falls at home the [facility] because of this hypoglycemia with some abrasions [...] DVT: Lovenox Charges/Coding Visit Charges Inpatient E&M: 63496 Subs Hosp L2 10/19/24 1902 <Electronically signed by Ángel Lam MD> Cosigner Signature (if applicable): CC: ~ Signed [facility] Work Phone: 1(657) 464-278606-16-2025 Progress note [facility] Medical Records Department [address] [place] [address] Progress Note - Hospitalist 10/19/24 1852 MR#: [id number] Acct: [id number] Name: JUSTUS CHINCHILLA Rep #:[id number] : 1940 84 From: Ángel cuenca MD PCP: Dr. 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 Mild anterior frontal scalp swelling. No acute calvarial defect. Reading Location: [facility] Physical Exam Narrative General: Alert, Oriented [...] her lack of p.[facility]. intake at the [facility] ? She did have falls at home the [facility] because of this hypoglycemia with some abrasions [...] DVT: Lovenox Charges/Coding Visit Charges Inpatient E&M: 60540 Subs Hosp L2 10/19/24 190 Cosigner Signature (if applicable): CC: ~ Signed [facility]06-16-2025 Discharge summary Author Zoltan Garcia [facility] Note Date/Time October 19, 2024 12:[facility] [address] [place] [address] Emergency Department Summary 10/18/24 MR#: [id number] Acct: [id number] Name: RENÉEJUSTUS Madelyn Rep #:[id number] : 1940 84 From: Zoltan Gomez PCP: Dr. Donato Sepulveda MD Status:A DM IN Location: [place] [address] HPI HPI - Fall History of Present [...] Patient takes oral hypoglycemicsas well as insulin. [facility] Medical History (Updated 10/18/24 @ [...] motor deficits and no sensory deficits noted [place] Coma Scale: document GCS findings Spontaneous Obeys [...] 89.4 H Lymph % (Auto) 4.7 L [place] % (Auto) 4.8 Eos % (Auto) 0.1 [...] Color Urine Clarity Urine pH Ur Specific [place] Urine Protein Urine Glucose (UA) Urine Ketones [...] (Auto) Neut % (Auto) Lymph % (Auto) [place] % (Auto) Eos % (Auto) Baso % [...] Clarity Clear Urine pH 6.5 Ur Specific [place] 1.015 Urine Protein 30 H Urine Glucose [...] (Auto) Neut % (Auto) Lymph % (Auto) [place] % (Auto) Eos % (Auto) Baso % [...] Color Urine Clarity Urine pH Ur Specific [place] Urine Protein Urine Glucose (UA) Urine Ketones Urine Occult Blood Urine Nitrite Urine Bilirubin Urine Urobilinogen Ur Leukocyte Esterase Urine RBC Urine WBC Ur Squamous Epith Cells Urine Bacteria Urine Mucus POC Glucose 129 H Radiography Diagnostic Testing: Clinical Impression(s) from Imaging Studies Brain CT 10/18/24 17:01 IMPRESSION: No acute intracranial process. Mild anterior frontal scalp swelling. No acute calvarial defect. Reading Location: [facility] Management Discussion w/another healthcare provider: Hospitalist (Dr. Coello) Discharge Plan Dx/Rx/DC Orders Clinical Impression: Traumatic hematoma of forehead, Abrasion of forehead, Fall, Diabetic hypoglycemia, Skin tear of forearm without complication, Acute UTI Disposition Disposition: Acute Care Hospital [facility] Discharge Date/Time: 10/18/24 22:04 What to do if you have Problems For any increased pain, shortness of breath, bleeding, nausea or vomiting, chestpain, or any unexpected problems, contact your Primary Care Provider. Call [facility] ([phone]) or report to the closest Emergency Room. Call 911 if necessary. 10/19/24 0013 <Electronically signed by Zoltan Garcia DO> Cosigner Signature (if applicable): CC: Dr. Donato Sepulveda MD ~ Signed [facility] Work Phone: [phone] [id number] History and physical note Author Anali Coello [facility] Note Date/Time October 18, 2024 10:2 4pm [facility] Medical Records Department [address] [place] [address] H&P Exam - Hospitalist 10/18/242107 MR#: [id number] Acct: [id number] Name: JUSTUS CHINCHILLA Rep #:[id number] : 1940 84 From: Anali Coello DO PCP: Dr. Donato Sepulveda MD Status:A DM IN Location: [place] [address] HPI - General General Date of Admission: 10/18/24 Date of Service: 10/18/24 Chief Complaint: Fall/altered mental status HPI Narrative JUSTUS CHINCHILLA, is a 84 F who presented to the emergency department at [facility] on 10/18/2024 with chief complaint of head [...] she was close to her baseline mentation. [facility] Medical History (Updated 10/18/24 @ [...] (Auto) 89.4 H, Lymph % (Auto) 4.7L, [place] % (Auto) 4.8, Eos % (Auto) 0.1, [...] Clarity Clear, Urine pH 6.5, Ur Specific [place] 1.015, Urine Protein 30 H, Urine Glucose [...] swelling. No acute calvarial defect. Reading Location: [id number] Assessment & Plan Assessment/Plan (1) Skin tear of forearm without complication: (2) Diabetic hypoglycemia: (3) Fall: (4) Traumatic hematoma of forehead: (5) Abrasion of forehead: PLAN: Plan Altered mental status secondary to severe hypoglycemia - Blood sugar on [facility] at presentation was 19 - Dextrose [...] work consultation - Patient currently resides at [facility] - Hold all home antidiabetic agents - [...] palliative care Charges/Coding Visit Charges Inpatient E&M: 13931 Init Hosp L2 10/18/24 2224 <Electronically signed by Anali Coello DO> Cosigner Signature (if applicable): CC: Dr. Donato Sepulveda MD; Dr. Anali Coello DO~ Signed [facility] Work Phone: 1(855) 765-137606-16-2025 Discharge summary [facility] Medical Records Department [address] [place] [address] Emergency Department Summary 10/18/24 MR#: [id number] Acct: [id number] Name: JUSTUS CHINCHILLA Rep #:[id number] : 1940 84 From: Zoltan Gomez PCP: Dr. Donato Sepulveda MD Status:A DM IN Location: [place] [address] HPI HPI - Fall History of Present [...] Patient takes oral hypoglycemicsas well as insulin. [facility] Medical History (Updated 10/18/24 @ [...] 89.4 H Lymph % (Auto) 4.7 L [place] % (Auto) 4.8 Eos % (Auto) 0.1 [...] Color Urine Clarity Urine pH Ur Specific [place] Urine Protein Urine Glucose (UA) Urine Ketones [...] (Auto) Neut % (Auto) Lymph % (Auto) [place] % (Auto) Eos % (Auto) Baso % [...] Clarity Clear Urine pH 6.5 Ur Specific [place] 1.015 Urine Protein 30 H Urine Glucose [...] (Auto) Neut % (Auto) Lymph % (Auto) [place] % (Auto) Eos % (Auto) Baso % [...] Color Urine Clarity Urine pH Ur Specific [place] Urine Protein Urine Glucose (UA) Urine Ketones Urine Occult Blood Urine Nitrite Urine Bilirubin Urine Urobilinogen Ur Leukocyte Esterase Urine RBC Urine WBC Ur Squamous Epith Cells Urine Bacteria Urine Mucus POC Glucose 129 H Radiography Diagnostic Testing: Clinical Impression(s) from Imaging Studies Brain CT 10/18/24 17:01 IMPRESSION: No acute intracranial process. Mild anterior frontal scalp swelling. No acute calvarial defect. Reading Location: [id number] Management Discussion w/another healthcare provider: Hospitalist (Dr. Coello) Discharge Plan Dx/Rx/DC Orders Clinical Impression: Traumatic hematoma of forehead, Abrasion of forehead, Fall, Diabetic hypoglycemia, Skin tear of forearm without complication, Acute UTI Disposition Disposition: Acute Care Hospital [facility] Discharge Date/Time: 10/18/24 22:04 What to do if you have Problems For any increased pain, shortness of breath, bleeding, nausea or vomiting, chestpain, or any unexpected problems, contact your Primary Care Provider. Call [facility] ([phone]) or report tothe closest Emergency Room. Call 911 if necessary. 10/19/24 0013 Cosigner Signature (if applicable): CC: Dr. Donato Sepulveda MD ~ Signed [facility]06-15-2025 Evaluation note* Diagnosis Onset Date Resolution Status Admit Date Abrasion of forehead acute October 18, 2024 9:38pm Acute UTI acute October 18 9:38pm Diabetic hypoglycemia acute Oct 9:38pm Fall acute October 18 9:38pm Skin tear of forearm without complication acute October 18, 2024 9:38pm Traumatic hematoma of forehead acute October 18, 2024 9:38pm [facility] Work Phone: 1(244) 223-556606-15-2025 Evaluation note* Diagnosis Onset Date Resolution Status Admit Date Abrasion of forehead acute October 18, 2024 9:38pm Diabetic hypoglycemia acute Oct 9:38pm Fall acute October 18 9:38pm Skin tear of forearm without complication acute October 18, 2024 9:38pm Traumatic hematoma of forehead acute October 18, 2024 9:38pm Acute UTI resolved October 18 9:38pm [facility] Work Phone: 1(704) 633-217706-15-2025 History and physical note [facility] Medical Records Department [address] [place] [address] H&P Exam - Hospitalist 10/18/24 210 MR#: [id number] Acct: [id number] Name: JUSTUS CHINCHILLA Rep #:[id number] : 1940 84 From: Anali Coello DO PCP: Dr. Donato Sepulveda MD Status:A DM IN Location: [place] [address] HPI - General General Date of Admission: 10/18/24 Date of Service: 10/18/24 Chief Complaint: Fall/altered mental status HPI Narrative JUSTUS CHINCHILLA, is a 84 F who presented to the emergency department at [facility] on 10/18/2024 with chief complaint of head [...] per family and [facility]. She [...] she was close to her baseline mentation. [facility] Medical History (Updated 10/18/24 @ [...] (Auto) 89.4 H, Lymph % (Auto) 4.7L, [place] % (Auto) 4.8, Eos % (Auto) 0.1, [...] Clarity Clear, Urine pH 6.5, Ur Specific [place] 1.015, Urine Protein 30 H, Urine Glucose [...] swelling. No acute calvarial defect. Reading Location: [id number] Assessment & Plan Assessment/Plan (1) Skin tear [...] work consultation - Patient currently resides at [facility] DM-2 - Hold all home antidiabetic agents - [...] palliative care Charges/Coding Visit Charges Inpatient E&M: 47292 Init Hosp L2 10/18/24 2224 Cosigner Signature (if applicable): CC: Dr. Donato Sepulveda MD; Dr. Anali Coello DO~ Signed [facility]06-15-2025 Radiology Diagnostic study note [facility] Imaging Services [address] [place] [address] [id number] Brain/Head without Contrast MR#: [id number] Acct: [id number] Name: JUSTUS CHINCHILLA Rep #: [id number] : 1940 F 84 From: Debby Contreras MD PCP: Dr. Donato Sepulveda MD Status: R EG ER Study:Brain/Head without Contrast Date of Exa m: 10/18/24 Exam# [id number] Ordering Dr: Parminder Garcia DO PROCEDURE: BRAIN/HEAD [...] hydrocephalus or significant midline shift. There is uoif-pu-bofcwzcs chronic microvascular ischemic changes and ahgr-qd-vscvcwko parenchymal volume loss. No acute, depressed calvarial fractures. Mild anterior frontal scalp swelling. Bilateral lens surgeries. CT/Brain/Head without Contrast IMPRESSION: No acute intracranial process. Mild anterior frontal scalp swelling. No acute calvarial defect. Reading Location: [id number] CC: Dr. Zoltan Garcia DO; Dr. Donato Sepulveda MD ~ Avionics Electrical Engineer: Signed [facility]04-21-2025 Procedure note [facility] Medical Records Department [address] [place] [address] Operative Report 08/24/24931 MR#: [id number] Acct: [id number] Name: JUSTUS CHINCHILLA Rep #:[id number] : 1940 84 From: Armando Rich MD PCP: Dr. Donato Sepulveda MD Status:R [facility] Location: [place] [address] Operative Report (Standard) Operative Information Date of Procedure: 08/24/24 Pre-Operative Diagnosis: Osteoarthritis of the right knee, chronic postoperativeknee pain Post-Operative Diagnosis: Osteoarthritis of the right knee, chronic postoperative knee pain Surgery/Procedure Performed: Right knee superior medial/superior lateral/inferior medial genicular nerves steroid injection under fluoroscopic guidance cigar head perforator: No Type of Anesthesia: Local RN Documented [...] Sepulveda MD; Dr. Armando Rich MD~ Signed [facility]01-31-2024 Discharge summary Author Colleen Remyjuno [facility] June 05, 2023 7:54am Note Date/Time June 05, 2023 4 :38am [facility] Medical Records Department [address] [place] [address] Emergency Department Summary 06/05/23 MR#: [id number] Acct: [id number] Name: JUSTUS CHINCHILLA Rep #:[id number] : 1940 82 From: Colleen Gomez PCP: Dr. Basilio Flores MD Status:REG ER Location: ED HPI History of Present Illness Chief Complaint: Head Injury Informant: patient Narrative Narrative: Patient is an 82-year-old female presenting from [facility] after she injured her head. [...] Is not on any blood thinners. Per [facility] report patient was in the dining room at the table doing her puzzles which is her typical activity. Unclear if there was loss of consciousness. Was sent for evaluation of injuries. Tetanus Immunization: Unknown [facility] Medical History Anxiety and depression [...] her baseline. No focal neurologic deficits appreciated [place] Coma Scale: document GCS findings Spontaneous Obeys [...] Family Additional record(s) reviewed:: Prior outpatient record ([facility] paperwork ) Lab Data Attestation: I reviewed [...] 76.3 H Lymph % (Auto) 13.6 L [place] % (Auto) 7.2 Eos % (Auto) 2.0 [...] Sl. Cloudy Urine pH 6.0 Ur Specific [place] 1.015 Urine Protein 15 H Urine Glucose [...] your Primary Care Provider. Call [facility] ([phone]) or report to the closest Emergency Room. Call 911 if necessary. 06/05/23 1655 <Electronically signed by Colleen Walker DO> Cosigner Signature (if applicable): CC: Dr. Basilio Flores MD ~ Signed [facility] Work Phone: Evaluation noteNo assessment information available [facility] Work Phone: Evaluation note* Diagnosis Onset Date Resolution Status Admit Date Abrasion of forehead acute October 18, 2024 9:38pm Acute UTI acute October 18 9:38pm Diabetic hypoglycemia acute Oct 9:38pm Fall acute October 18 9:38pm Skin tear of forearm without complication acute October 18, 2024 9:38pm Traumatic hematoma of forehead acute October 18, 2024 9:38pm [facility] Work Phone: Hospital Discharge instructions Additional Instructions Lab work including CBC, BMP, urinalysis and CT of the head, cervical spine as well as x-ray of the right elbow do not show any acute injury or abnormalities. The cause of Justus's frequent falls is not clear however at this time I do not think she requires admission to the hospital.[facility] Work Phone: Reason for referral (narrative)No reason for referral information availableWUniversity [facility] Work Phone: Chief Complaint Chief [...] December 15 0 6:54pm Power of Senior Pricing Analyst Yes December 15 6:54pm Advance Directive Response Recorded Date/ Time Advance Directives Yes October 13 12:44pm Living Will Yes December 15 0 5:54pm Power of Senior Pricing Analyst Yes December 15 5:54pm Advance Directive Response Recorded Date/ Time Advance Directives Yes March 07, 2023 11:00am Living Will Yes March 07 11:00am Power of Senior Pricing Analyst Yes March 07, 2023 11:00am Advance Directive Response Recorded Date/ Time Name of Medical Power of Senior Pricing Analyst ABEBE VELEZ June 05, 2023 3:45am Advance Directives Yes March 07, 2023 11:00am Living Will Yes June 05 3:45am Power of Senior Pricing Analyst Yes June 05, 2023 3:45am Advance Directive Response Recorded Date/ Time Name of Medical Power of Senior Pricing Analyst ABEBE VELEZ June 05, 2023 3:45am Advance Directives Yes March 07, 2023 11:00am Living Will No June 08 8:10am Power of Senior Pricing Analyst No June 08, 2023 8:10am Advance Directive Response Recorded Date/ Time Name of Medical Power of Senior Pricing Analyst ABEBE VELEZ June 05, 2023 4:45am Advance Directives Yes March 07, 2023 12:00pm Living Will No June 08 9:10am Power of Senior Pricing Analyst No June 08, 2023 9:10am Advance Directive Response Recorded Date/ Time Advance Directives Yes March 07, 2023 12:00pm Advance Directive Response Recorded Date/ Time Do you have a Healthcare Power of Senior Pricing Analyst? Yes October 18, 2024 4:46pm Advance Directives Yes March 07, 2023 12:00pm Advance Directive Response Recorded Date/ Time Do you have a Healthcare Pow er of Senior Pricing Analyst? 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 MONTHLY EXAM LABWORK Chief Complaint SHELTER PATIENT MONTHLY EXAM LABWORK Chief Complaint MONTHLY EXAM LABWORK SHELTER LABWORK SHELTER LABWORK MONTHLY EXAM SHELTER LABWORK Chief Complaint SHELTER LABWORK MONTHLY EXAM SHELTER LABWORK SHELTER LABWORK Chief Complaint MONTHLY EXAM SHELTER LABWORK SHELTER LABWORK SHELTER LABWORK Chief Complaint SHELTER LABWORK SHELTER LABWORK NEW SYMPTOMS/CONCERNS ACUTE CARE VISIT SHELTER LAB WORK SHELTER LAB WORK Chief Complaint SHELTER LABWORK NEW SYMPTOMS/CONCERNS ACUTE CARE VISIT SHELTER LAB WORK SHELTER LABWORK SHELTER LAB WORK MONTHLY EXAM SHELTER LABWORK NEW PROBLEM/CONCERN Chief Complaint MONTHLY EXAM SHELTER LABWORK NEW PROBLEM/CONCERN NEW PROBLEM NEW PROBLEM/CONCERN NEW PROBLEM NEW PROBLEM NEW PROBLEM SHELTER LABWORK Chief Complaint MONTHLY EXAM SHELTER LABWORK NEW PROBLEM/CONCERN NEW PROBLEM NEW PROBLEM/CONCERN NEW PROBLEM NEW PROBLEM NEW PROBLEM SHELTER LABWORK SHELTER LABWORK Chief Complaint NEW CONCERN SHELTER LABWORK MONTHLY EXAM SHELTER LAB WORK SHELTER LABWORK SHELTER LAB WORK MONTHLY EXAM MONTHLY EXAM SHELTER LAB WORK Chief Complaint NEW CONCERN SHELTER LABWORK MONTHLY EXAM SHELTER LAB WORK SHELTER LABWORK SHELTER LAB WORK MONTHLY EXAM MONTHLY EXAM SHELTER LAB WORK SHELTER LAB WORK Chief Complaint NEW CONCERN NEW CONCERN MONTHLY EXAM NEW CONCERN NEW CONCERN SHELTER LAB WORK FOLLOW UP SHELTER LAB WORK ACUTE CARE MONTHLY EXAM SHELTER LAB WORK Chief Complaint NEW CONCERN MONTHLY EXAM NEW CONCERN NEW CONCERN SHELTER LAB WORK FOLLOW UP SHELTER LAB WORK ACUTE CARE MONTHLY EXAM SHELTER LAB WORK SHELTER LABWORK SHELTER LABWORK Chief Complaint SHELTER LAB WOR K FOLLOW UP SHELTER LAB WORK ACUTE CARE MONTHLY EXAM SHELTER LAB WORK SHELTER LABWORK SHELTER LABWORK MONTHLY EXAM LIBRARY SERIALS ASSISTANT HEAD INJURY Chief Complaint FOLLOW UP SHELTER LAB WORK ACUTE CARE MONTHLY EXAM SHELTER LAB WORK SHELTER LABWORK SHELTER LABWORK MONTHLY EXAM LIBRARY SERIALS ASSISTANT NEW CONCERN MONTHLY EXAM - MD HEAD INJURY NEW CONCERN fall LABWORK Chief Complaint SHELTER LABWORK SHELTER LABWORK MONTHLY EXAM LIBRARY SERIALS ASSISTANT NEW CONCERN MONTHLY EXAM - MD HEAD INJURY NEW CONCERN fall LABWORK SHELTER LAB WORK Chief Complaint Admit Date SHELTER LAB WORK April 21 5:00am MONTHLY EXAM May 19, 2024 4 :53pm NEW CONCERN June 01, 2024 5 :22pm SHELTER LAB WORK June 02, 2024 5:00am SHELTER LAB WORK June 09, 2024 5:00am SHELTER LAB WORK June 15 3:15pm NEW CONCERN June 26, 2024 5:54pm SHELTER LAB WORK July 14, 2024 4 :00am SHELTER LAB WORK July 15, 2024 5 :00am Chief Complaint Admit Date SHELTER LAB WORK April 21 5:00am MONTHLY EXAM May 19, 2024 4 :53pm NEW CONCERN June 01, 2024 5 :22pm SHELTER LAB WORK June 02, 2024 5:00am SHELTER LAB WORK June 09, 2024 5:00am SHELTER LAB WORK June 15 3:15pm NEW CONCERN June 26, 2024 5:54pm SHELTER LAB WORK July 14, 2024 4 :00am MONTHLY EXAM July 14, 2024 4:0 5pm SHELTER LAB WORK July 15, 2024 5 :00am Chief Complaint Admit Date MONTHLY EXAM May 19, 2024 4 :53pm NEW CONCERN June 01, 2024 5 :22pm SHELTER LAB WORK June 02, 2024 5:00am SHELTER LAB WORK June 09, 2024 5:00am SHELTER LAB WORK June 15 3:15pm NEW CONCERN June 26, 2024 5:54pm SHELTER LAB WORK July 14, 2024 4 :00am MONTHLY EXAM July 14, 2024 4:0 5pm SHELTER LAB WORK July 15, 2024 5 :00am Chief Complaint Admit Date SHELTER LAB WORK June 09, 2024 5:00am SHELTER LAB WORK June 15 3:15pm NEW CONCERN June 26, 2024 5:54pm SHELTER LAB WORK July 14, 2024 4 :00am MONTHLY EXAM July 14, 2024 4:0 5pm SHELTER LAB WORK July 15, 2024 5 :00am MONTHLY EXAM August 17, 2024 4:4 9pm SHELTER LAB WORK August 25, 2024 4 :00am Chief Complaint Admit Date SHELTER LAB WORK June 15 3:15pm NEW CONCERN June 26, 2024 5:54pm SHELTER LAB WORK July 14, 2024 4 :00am MONTHLY EXAM July 14, 2024 4:0 5pm SHELTER LAB WORK July 15, 2024 5 :00am MONTHLY EXAM August 17, 2024 4:4 9pm SHELTER LAB WORK August 25, 2024 4 :00am SHELTER LAB WORK September 08, 2024 5:00 am Chief Complaint Admit Date NEW CONCERN June 26, 2024 5:54pm SHELTER LAB WORK July 14, 2024 4 :00am MONTHLY EXAM July 14, 2024 4:0 5pm SHELTER LAB WORK July 15, 2024 5 :00am MONTHLY EXAM August 17, 2024 4:4 9pm SHELTER LAB WORK August 25, 2024 4 :00am SHELTER LAB WORK September 08, 2024 5:00 am [...] Date NEW CONCERN June 26, 2024 5:54pm SHELTER LAB WORK July 14, 2024 4 :00am MONTHLY EXAM July 14, 2024 4:0 5pm SHELTER LAB WORK July 15, 2024 5 :00am MONTHLY EXAM August 17, 2024 4:4 9pm SHELTER LAB WORK August 25, 2024 4 :00am SHELTER LAB WORK September 08, 2024 5:00 am SEVERE HYPOGLYCEMIA/UTI October 18, 2024 9:38pm SEVERE HYPOGLYCEMIA/UTI October 19, 2024 6:52pm SEVERE HYPOGLYCEMIA/UTI October 20, 2024 11:11am Chief Complaint Admit Date MONTHLY EXAM August 17, 2024 4:4 9pm SHELTER LAB WORK August 25, 2024 4 :00am SHELTER LAB WORK September 08, 2024 5:00 am MONTHLY EXAM September 15, 2024 4:00p m SHELTER LAB WORK October 06, 2024 5:0 0am [...] MONTHLY EXAM August 17, 2024 4:4 9pm SHELTER LAB WORK August 25, 2024 4 :00am SHELTER LAB WORK September 08, 2024 5:00 am MONTHLY EXAM September 15, 2024 4:00p m SHELTER LAB WORK October 06, 2024 5:0 0am SEVERE HYPOGLYCEMIA/UTI October 18, 2024 9:38pm SEVERE HYPOGLYCEMIA/UTI October 19, 2024 6:52pm SEVERE HYPOGLYCEMIA/UTI October 20, 2024 11:11am RE ADMISSION EXAM October 21, 2024 5:45 pm Chief Complaint Admit Date SHELTER LAB WORK August 25, 2024 4 :00am SHELTER LAB WORK September 08, 2024 5:00 am MONTHLY EXAM September 15, 2024 4:00p m SHELTER LAB WORK October 06, 2024 5:0 0am SEVERE HYPOGLYCEMIA/UTI October 18, 2024 9:38pm SEVERE HYPOGLYCEMIA/UTI October 19, 2024 6:52pm SEVERE HYPOGLYCEMIA/UTI October 20, 2024 11:11am RE ADMISSION EXAM October 21, 2024 5:45 pm Monthly Exam November 10, 2024 4:19p m SHELTER LAB WORK November 17, 2024 4: 50am Chief Complaint Admit Date SHELTER LAB WORK September 08, 2024 5:00 am MONTHLY EXAM September 15, 2024 4:00p m SHELTER LAB WORK October 06, 2024 5:0 0am SEVERE HYPOGLYCEMIA/UTI October 18, 2024 9:38pm SEVERE HYPOGLYCEMIA/UTI October 19, 2024 6:52pm SEVERE HYPOGLYCEMIA/UTI October 20, 2024 11:11am RE ADMISSION EXAM October 21, 2024 5:45 pm Monthly Exam Megan 8th, 2025 4:19p m SHELTER LAB WORK November 17, 2024 4: 50am MONTHLY EXAM December 04, 2024 4:1 5pm SHELTER LAB WORK December 08, 2024 5 :00am Chief Complaint Admit Date SEVERE HYPOGLYCEMIA/UTI October 18, 2024 9:38pm SEVERE HYPOGLYCEMIA/UTI October 19, 2024 6:52pm SEVERE HYPOGLYCEMIA/UTI October 20, 2024 11:11am RE ADMISSION EXAM October 21, 2024 5:45 pm Monthly Exam November 10, 2024 4:19p m SHELTER LAB WORK November 17, 2024 4: 50am MONTHLY EXAM December 04, 2024 4:1 5pm SHELTER LAB WORK December 08, 2024 5 :00am SHELTER LAB WORK December 29, 2024 4:00am SHELTER LAB WORK December 30, 2024 5:00am Chief Complaint Admit Date Monthly Exam November 10, 2024 4:19p m SHELTER LAB WORK November 17, 2024 4: 50am MONTHLY EXAM December 04, 2024 4:1 5pm SHELTER LAB WORK December 08, 2024 5 :00am SHELTER LAB WORK December 29, 2024 4:00am SHELTER LAB WORK December 30, 2024 5:00am MONTHLY EXAM January 12, 2025 3:54pm NEW CONCERN January 26, 2025 3:02pm Chief Complaint Admit Date Monthly Exam November 10, 2024 4:19p m SHELTER LAB WORK November 17, 2024 4: 50am MONTHLY EXAM December 04, 2024 4:1 5pm SHELTER LAB WORK December 08, 2024 5 :00am SHELTER LAB WORK December 29, 2024 4:00am SHELTER LAB WORK December 30, 2024 5:00am MONTHLY EXAM January 12, 2025 3:54pm NEW CONCERN January 26, 2025 3:02pm SHELTER LAB WORK February 09, 2025 5:25am Summary [...] 2024 End: June 26, 2024 Debora Schneider LIBRARY SERIALS ASSISTANT, LIBRARY SERIALS ASSISTANT-C Attending Provider Active Start: June 26, 2024 [...] Status: Inactive Member Role Status Dates Dr. aBsilio Flores MD Primary Care Provider Active Start: [...] 2024 End: August 17, 2024 Debora Schneider LIBRARY SERIALS ASSISTANT, LIBRARY SERIALS ASSISTANT-C Attending Provider Active Start: August 17, 2024 [...] 2024 End: August 24, 2024 Debora Schneider LIBRARY SERIALS ASSISTANT, LIBRARY SERIALS ASSISTANT-C Other Provider Active S tart: August 24, [...] MD Primary Care Provider Active Debora Schneider LIBRARY SERIALS ASSISTANT, LIBRARY SERIALS ASSISTANT-C Attending Provider Active Team Status: Inactive Member [...] 2024 End: June 01, 2024 Debora Schneider LIBRARY SERIALS ASSISTANT, LIBRARY SERIALS ASSISTANT-C Attending Provider Active Start: June 01, 2024 [...] 2024 End: August 17, 2024 Debora Schneider LIBRARY SERIALS ASSISTANT, LIBRARY SERIALS ASSISTANT-C Attending Provider Active Start: August 17, 2024 [...] 2024 End: August 24, 2024 Debora Schneider LIBRARY SERIALS ASSISTANT, LIBRARY SERIALS ASSISTANT-C Other Provider Active S tart: August 24, [...] Status: Inactive Member Role/Relationship Status Dates Dr. Donaot Sepulveda MD Primary Care Provider Active Start: October 21, 2024 End: October 21, 2024 Debora Schneider NP, LIBRARY SERIALS ASSISTANT-C Attending Provider Active Start: October 21, 2024 [...] 2024 End: August 24, 2024 Debora Schneider LIBRARY SERIALS ASSISTANT, LIBRARY SERIALS ASSISTANT-C Other Provider Active S tart: August 24, [...] 2024 End: October 21, 2024 Debora Schneider LIBRARY SERIALS ASSISTANT, LIBRARY SERIALS ASSISTANT-C Attending Provider Active Start: October 21, 2024 [...] 2024 End: October 20, 2024 Dr. Ángel Lma MD Attending Provider Active Start: October 18, [...] 2024 End: October 21, 2024 Debora Schneider LIBRARY SERIALS ASSISTANT, LIBRARY SERIALS ASSISTANT-C Attending Provider Active Start: October 21, 2024 [...] 2024 End: December 04, 2024 Debora Schneider LIBRARY SERIALS ASSISTANT, LIBRARY SERIALS ASSISTANT-C Attending Provider Active Start: December 04, 2024 [...] October 20, 2024 Dr. Anali Coello DO Nurse Practitioner Active S tart: October 18, 2024 End: October 20, 2024 Dr. Ángel Lam MD Attending physician Active Start: October 18 End: October 20, 2024 Team Status: Active Member Role/Relationship Status Dates Dr. Donato Sepulveda MD Primary care physician Activ e Start: October 19, 2024 Dr. Zoltan Garcia DO Emergency Depart ent Physician Active Start: October 19, 2024 Dr. Anali Coello DO Admitting physician Active Start: October 19, 2024 Dr. Anali Coello DO Nurse Practitioner Active S tart: October 19, [...] Coello DO Admitting physician Active Start: October 20, 2024 Dr. Anali Coello DO Nurse Practitioner Active S tart: October 20, 2024 Dr. Ángel Lam MD Attending physician Active Start: October 20 Dr. Ángel Lam MD Nurse Practitioner Active Start: October 20 Team Status: Inactive Member Role/Relationship Status Dates Dr. Donato Sepulveda MD Primary care physician Activ e Start: October 21, 2024 End: October 21, 2024 Debora Schneider LIBRARY SERIALS ASSISTANT, LIBRARY SERIALS ASSISTANT-C Attending physician Active Start: October 21, 2024 [...] 2024 End: December 04, 2024 Debora Schneider LIBRARY SERIALS ASSISTANT, LIBRARY SERIALS ASSISTANT-C Attending physician Active Start: December 04, 2024 [...] 2024 End: December 04, 2024 Debora Schneider LIBRARY SERIALS ASSISTANT, LIBRARY SERIALS ASSISTANT-C Attending physician Active Start: December 04, 2024 [...] 2025 End: January 26, 2025 Debora Schneider LIBRARY SERIALS ASSISTANT, LIBRARY SERIALS ASSISTANT-C Attending physician Active Start: January 26, 2025 [...] ized section and content) DATE CREATED AUTHOR 03/18/2025 [facility] FOR RECORDS PERTAINING TO PATIENTS WHO [...] BE BASED ON THE PRIMARY CLINICAL RECORDS. [employer] provides no warranty or guarantee of the accuracy or completeness of information in this document.
[2025-03-23 08:15] LABS: Vitamin D,25 Hydroxy 29.8 ng/mL (30-100)
== END ==
LOC: OLS.WHLEAS 04:00
PROVIDERS: PCP Internal Medicine; Referring Provider Internal Medicine; Visit Provider Internal Medicine
DX: E55.9 Vitamin D deficiency, unspecified (principal)
CPT/HCPCS: 36415; 82306

== ENCOUNTER → 2025-03-30 05:00 | Outpatient (REF) | payer MEDICARE, MEDICAID, SELFPAY ==
--- OUTSIDE RECORDS SUMMARY | 2025-03-30 03:24 | XMS RPT_ITS | CCD ---
Author Organization [facility] Care Team Providers Care Chiropractic Neurologist Name Role Phone Trent HILARIO, Rachael Sarabia Unavailable Dr. Basilio Flores Primary Care Provider Tickangelic SENIOR 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, SENIOR 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-C Debora Attending Provider Dr. Basilio Anderson Primary Care Provider Dr. Basilio Flores Primary Care Provider [place] SENIOR 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, SENIOR 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-C Debora Attending Provider Dr. Basilio Anderson Primary Care Provider [place] SENIOR 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, SENIOR 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-C Debora Attending Provider Dr. Basilio Anderson Primary Care Provider Dr. Donato Sepulveda Attending Provider [place] SENIOR 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, SENIOR 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-C Debora Attending Provider Dr. Basilio Anderson Primary Care Provider Dr. Donato Sepulveda Attending Provider [place] SENIOR 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, SENIOR 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-C Debora Attending Provider Dr. Basilio Anderson Primary Care Provider [place] SENIOR 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, SENIOR 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-C Debora Attending Provider Dr. Donato Centeno Attending Provider [phone] Dr. Basilio Floers Primary Care Provider [place] SENIOR 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, SENIOR 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-C Debora Attending Provider Dr. Donato Centeno Attending Provider Dr. Basilio Flores Primary Care Provider [place] SENIOR 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, SENIOR 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-C Debora Attending Provider Dr. Basilio Anderson Primary Care Provider [place] SENIOR 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, SENIOR 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-C Debora Attending Provider Dr. Donato Sepulveda Attending Provider Dr. Basilio Flores Primary Care Provider [place] SENIOR 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, SENIOR 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-C Debora Attending Provider Dr. Donato Sepulveda Attending Provider Dr. Basilio Flores MD Primary Care Provider Donato Sepulveda MD Attending Provider Dr. Donato Frederick MD Attending Provider Tickangelic SENIOR 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-C, Debora Attending Provider Donato Sepulveda MD Referring Provider Dr. Basilio Owens MD Primary Care Provider Donato Sepulveda MD Attending Provider UnavailDr. Armando Elizabeth MD Attending Provider [phone] Dr. Armando Rich MD Referring Provider Derick HILARIO, Dr. Sewell Primary Care Provider Tickangelic SENIOR 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-C, Debora Other Provider Dr. Basilio Flores MD Primary Care Provider Donato Sepulveda MD Attending Provider Unavaila keli Schneider SENIOR 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-C, Debora Attending Provider Dr. Donato Sepulveda MD [...] HILARIO, Dr. Ángel Triana Other Provider Tickton SENIOR 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-C, Debora Attending Provider Derick HILARIO, Donato Attending Provider Unavailyifan Sepulveda MD, Donato Referring Provider Selwyn Sepulveda MD, Dr. Sewell Attending Provider Tickangelic SENIOR 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-C, Debora Attending Provider Derick HILARIO, Dr. Sewell [...] HILARIO, Dr. Ángel Triana Nurse Practitioner Wyatt SENIOR 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-C, Debora Attending Physician Derick HILARIO, Dr. Sewell Attending Physician Donato Sepulveda MD Attending Physician Unavail able Derick HILARIO, Dr. Sewell Primary Care Physician Wyatt SENIOR 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-C, Debora Attending Physician Donato Sepulveda Primary Care [...] Unavailable Oleghe, Efewongbe Primary Care Unavailable [place]ton SENIOR 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, Debora Consulting Unavailable Armando Rich Attending Unavailable Armando Rich Referring Unavailable Oleghe, Efewongbe Primary Care Unavailable [place] SENIOR 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, Debora Attending Unavailable Oleghe, Efewongbe Primary Care [...] e Oleghe, Efewongbe Primary Care Unavailable [place] SENIOR 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, Debora Attending Unavailable Oleghe, Efewongbe Primary Care Unavailable Oleghe, Efewongbe Attending Unavailable [place] SENIOR 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, Debora Attending Unavailable Oleghe, Efewongbe Primary Care Unavailable [place] SENIOR 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, Debora Attending Unavailable Oleghe, Efewongbe Primary Care Unavailable Oleghe OLS, Efewongbe Attending Unavailabl e Oleghe, Efewongbe Primary Care Unavailable [place] SENIOR 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, Debora Attending Unavailable Oleghe, Efewongbe Primary Care Unavailable Flores, Basilio K Primary Care Unavailable Oleghe OLS, Efewongbe Attending Unavailabl e Flores, Basilio K Primary Care Unavailable [place] SENIOR 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, Debora Attending Unavailable Flores, Basilio K Primary Care Unavailable Oleghe, Efewongbe Attending Unavailable [place] SENIOR 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, Debora Attending Unavailable Oleghe, Efewongbe Primary Care Unavailable Flores, Basilio K Primary Care Unavailable [place] SENIOR 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, Debora Attending Unavailable Anali Coello Admitting Unavailable [...] source) Acetaminophen / HYDROcodone Drug Allergy unknown [facility] Work Phone: (1 source) Acetaminophen / oxyCODONE Drug Allergy 019 unknown [facility] Work Phone: (1 source) Acetaminophen / Propoxyphene Drug Allergy 019 unknown [facility] Work Phone: (1 source) Baclofen Drug Allergy unknown [facility] Work Phone: (1 source) Carbidopa / Levodopa Drug Allergy 019 unknown [facility] Work Phone: (1 source) Ibuprofen Drug Allergy 11-11-2 019 kidney disease [facility] Work Phone: (1 source) Ketoprofen Drug Allergy unknown [facility] Work Phone: (1 source) LORazepam Drug Allergy unknown [facility] Work Phone: (1 source) metFORMIN Drug Allergy unknown [facility] Work Phone: (20 sources) Naloxone; Translations: [naloxone] Drug Allergy unknown, Nausea [facility] Work Phone: (1 source) oxaprozin Drug Allergy unknown [facility] Work Phone: (1 source) rofecoxib Drug Allergy unknown [facility] Work Phone: (1 source) rosiglitazone Drug Allergy siblings had severe reactions [facility] Work Phone: (1 source) Sertraline Drug Allergy unknown [facility] Work Phone: (1 source) Simvastatin Drug Allergy unknown [facility] Work Phone: (1 source) Sulfamethoxazole / Trimethoprim Drug Allergy unknown [facility] Work Phone: (1 source) venlafaxine; Translations: [EFFEXOR] Drug Allergy unknown [facility] Work Phone: (20 sources) Carbidopa Drug Allergy [address] [facility] (20 sources) HYDROcodone; Translations: [hydrocodone bitartrate] Drug Allergy Nausea [facility] (20 sources) Ketoprofen Drug Allergy Unknown [facility] (20 sources) Levodopa Drug Allergy Nausea [facility] (20 sources) LORazepam Drug Allergy hallucination [facility] (20 sources) metFORMIN; Translations: [metformin HCl] Drug Allergy Nausea [facility] (20 sources) oxaprozin Drug Allergy Nausea [facility] (20 sources) oxyCODONE; Translations: [oxycodone HCl] Drug Allergy Nausea [facility] (20 sources) Propoxyphene; Translations: [propoxyphene HCl] Drug Allergy Nausea [facility] (20 sources) rofecoxib Drug Allergy Nausea [facility] (20 sources) rosiglitazone; Translations: [rosiglitazone maleate] Drug Allergy Nausea [facility] (20 sources) Sertraline; Translations: [sertraline HCl] Drug Allergy haullucination [facility] (20 sources) Simvastatin Drug Allergy Nausea [facility] (20 sources) Sulfamethoxazole Drug Allergy Rash [facility] (20 sources) Trimethoprim Drug Allergy Rash [facility] (20 sources) venlafaxine; Translations: [venlafaxine HCl] Drug Allergy Nausea [facility] (20 sources) NSAIDS (Non-Steroidal Anti-Inflamma; Translations: [NSAIDS (Non-Steroidal Anti-Inflamma] Propensity to adverse reactions PT UNSURE OF REACTION [facility] (1 source) Carbidopa Drug Allergy [facility] (1 source) Ketoprofen Drug Allergy [facility] (1 source) Levodopa Drug Allergy [facility] (1 source) LORazepam Drug Allergy [facility] (1 source) oxaprozin Drug Allergy [facility] (1 source) rofecoxib Drug Allergy [facility] (1 source) Simvastatin Drug Allergy [facility] (1 source) Sulfamethoxazole Drug Allergy 025 [facility] (1 source) Trimethoprim Drug Allergy 025 [facility] Medications Current Medications Medication Drug Class(es) Dates Sig (Normalized) Sig (Original) acetaminophen 325 mg oral tablet (20 sources) Start: 10-18-2024 take 2 tablets by mouth every four hours as needed for pain Start: 03-16-2019 TYLENOL 325 MG CAPS takes two tabs every 4 hours as needed ACETAMINOPHEN [id number] Rachael Newman MD Start: 09-20-2017 take 1 [...] mg/ml ophthalmic solution (4 sources) Plasma Volume Shirring Tender Start: 10-18-2024 take 0.1-0.3 drop(s) into the [...] night and 40mg twice daily FUROSEMIDE TABS [id number] Rachael Newman MD glucagon (rdna) 1 mg [...] takes 46 units twice daily INSULIN GLARGINE [id number] Rachael Newman MD Start: 04-06-2015 End: 09-26-2017 [...] three times daily as needed OXYCODONE HCL [id number] Rachael Newman MD Start: 07-14-2015 End: 09-20-2017 [...] as directed prior to dental procedures AMOXICILLIN [id number] Rachael Newman MD aspirin 325 mg oral [...] takes one tab once daily ATORVASTATIN CALCIUM [id number] Rachael Newman MD bacillus coagulans [id number] unt / inulin 250 mg oral capsule [...] TABS takes one tab daily DIPHENHYDRAMINE HCL [id number] Rachael Newman MD Start: 03-16-2019 BENADRYL ALLER GY 25 MG CAPS takes one tab once daily DIPHENHYDRAMINE HCL [id number] Rachael Newman MD doxepin hydrochloride 10 mg oral capsule (1 source) Tricyclic Antidepressant Start: 03-16-2019 DOXEPIN HCL 10 MG CAPS takes two tabs daily DOXEPIN HCL [id number] Rachael Newman MD famotidine 20 mg oral [...] CAPS takes one tab once daily GABAPENTIN [id number] Rachael Newman MD Insulin Glargine 100 UNIT/ML [...] sliding scale three times daily INSULIN ASPART [id number] Rachael Newman MD Start: 04-25-2015 End: 07-14-2015 [...] TABS takes one tab once daily LISINOPRIL [id number] Rachael Newman MD melatonin 3 mg oral tablet (20 sources) Start: 12-16-2019 End: 06-08-2023 take 1 tablet by mouth at bedtime Melatonin 3 MG tablet Discontinued 3 mg PO AT BEDTIME December 16, 2019 12:00am June 08, 2023 9:23am SLEEP Start: 03-16-2019 MELATONIN 10 M G TABS takes one tab once daily MELATONIN [id number] Rachael Newman MD meloxicam 7.5 mg oral [...] CPDR takes one tab once daily OMEPRAZOLE [id number] Rachael Newman MD polyethylene glycol 400 10 [...] takes one tab once daily RANITIDINE HCL [id number] Rachael Newman MD rOPINIRole 0.5 mg oral [...] 02-17-2025 Anion gap [Moles/Vol] 11 mmol/L 09-17 [facility] BUN/creatinine ratioOrdered By: Donato Sepulveda on 02-17-2025 Urea nitrogen/Creatinine [Mass ratio] 13.1 mg/mg 02-22 [facility] Carbon dioxide, total [Moles /volume] in Central venous bloodOrdered By: Donato Sepulveda on 02-17-2025 CO2 [Moles/Vol] 28.1 mmol/L 21.0-32.0 [facility] Chloride assayOrdered By: Livier Sepulveda on 02-17-2025 Chloride [Moles/Vol] 98 mmol/L 98-108 [facility] Glomerular filtration rate ( GFR) estimation/1.73 sq m using serum, plasma, or whole bOrdered By: Donato Sepulveda on 02-17-2025 GFR/1.73 sq M.predicted among non-blacks MDRD (S/P/Bld) [Vol rate/Area] 80 mL/min/{1.73_m2} >60 [facility] Comment on above: mL/min/1.73m2 CKD-EP I Creatinine Equation (2020) Potassium measurement (mass/ volume)Ordered By: Donato Sepulveda on 02-17-2025 Potassium (Unsp spec) [Mass/Vol] 4.1 mmol/L 3.3-5.1 [facility] Serum creatinine measurement (mass/volume)Ordered By: Donato Sepulveda on 02-17-2025 Creatinine [Mass/Vol] 0.75 mg/dL 0.70-1.20 [facility] Serum glucose measurement (m ass/volume)Ordered By: Donato Sepulveda on 02-17-2025 Glucose [Mass/Vol] 366 mg/dL High 70-99 [facility] Serum or plasma calcium serge urement (mass/volume)Ordered By: Donato Sepulveda on 02-17-2025 Calcium [Mass/Vol] 9.2 mg/dL 7.6-11.0 [facility] Serum or plasma urea nitroge n measurement (mass/volume)Ordered By: Donato Sepulveda on 02-17-2025 Urea nitrogen [Mass/Vol] 10 mg/dL 4-19 [facility] Sodium levelOrdered By: Raul Sepulveda on 02-17-2025 Sodium [Moles/Vol] 137 mmol/L 133-145 [facility] Potassium measurement (mass/ volume)Ordered By: Donato Sepulveda on 12-30-2024 Potassium (Unsp spec) [Mass/Vol] 4.3 mmol/L 3.3-5.1 [facility] Anion gap in Serum or Plasma Ordered By: Donato Sepulveda on 12-29-2024 Anion gap [Moles/Vol] 10 mmol/L 5-15 [facility] BUN/creatinine ratioOrdered By: Donato Sepulveda on 12-29-2024 Urea nitrogen/Creatinine [Mass ratio] 18.5 mg/mg 10-20 [facility] Carbon dioxide, total [Moles /volume] in Central venous bloodOrdered By: Donato Sepulveda on 12-29-2024 CO2 [Moles/Vol] 28.6 mmol/L 21.0-32.0 [facility] Chloride assayOrdered By: Livier Sepulveda on 12-29-2024 Chloride [Moles/Vol] 97 mmol/L Low 98-108 [facility] Glomerular filtration rate ( GFR) estimation/1.73 sq m using serum, plasma, or whole bOrdered By: Doanto Sepulveda on 12-29-2024 GFR/1.73 sq M.predicted among non-blacks MDRD (S/P/Bld) [Vol rate/Area] 81 mL/min/{1.73_m2} >60 [facility] Comment on above: mL/min/1.73m2 CKD-EP I Creatinine Equation (2020) Hemoglobin A1c percentageOrd ered By: Donato Sepulveda on 12-29-2024 HbA1c (Bld) [Mass fraction] 9.3 % High <5.7 [facility] Comment on above: Normal < 5.7 % Predi abetic 5.7 - 6.4 % Diabetic >or= 6.5 % Please note range changes. Potassium measurement (mass/ volume)Ordered By: Donato Sepulveda on 12-29-2024 Potassium (Unsp spec) [Mass/Vol] 5.2 mmol/L High 3.3-5.1 [facility] Serum creatinine measurement (mass/volume)Ordered By: Donato Sepulveda on 12-29-2024 Creatinine [Mass/Vol] 0.74 mg/dL 0.70-1.20 [facility] Serum glucose measurement (m ass/volume)Ordered By: Dnoato Sepulveda on 12-29-2024 Glucose [Mass/Vol] 336 mg/dL High 70-99 [facility] Serum or plasma calcium serge urement (mass/volume)Ordered By: Livierstudyanchar Lombardirjnoris on 12-29-2024 Calcium [Mass/Vol] 9.4 mg/dL 7.6-11.0 [facility] Serum or plasma urea nitroge n measurement (mass/volume)Ordered By: Donato Sepulveda on 12-29-2024 Urea nitrogen [Mass/Vol] 14 mg/dL 4-19 [facility] Sodium levelOrdered By: Raul medrano Harjitrjnoris on 12-29-2024 Sodium [Moles/Vol] 135 mmol/L 133-145 [facility] Hemoglobin A1c percentageOrd ered By: Livierstudyanchar Lombardirjnoris on 12-08-2024 HbA1c (Bld) [Mass fraction] 10.2 % High <5.7 [facility] Comment on above: Normal < 5.7 % Predi abetic 5.7 - 6.4 % Diabetic >or= 6.5 % Please note range changes. Culture, Blood (WB)on 2024 CUB Blood cultures x2, from two different sites No growth in [address] [facility] Comment on above: Performed By: #### L 501.080 #### [facility] [address] [facility] [address] Bedside Glucoseon 10-20-2024 FINGERSTICK GLU 200 mg/dL High 74-106 [facility] Comment on above: Result Comment: JEWELS GEMENT OF PATIENT CARE PER NURSING PROTOCOL Performed By: #### L 501.080 #### [facility] [address] [facility] [address] FINGERSTICK GLU 296 mg/dL High 74-106 [facility] Comment on above: Result Comment: JEWELS GEMENT OF PATIENT CARE PER NURSING PROTOCOL Performed By: #### L 501.080 #### [facility] [address] [facility] [id number] FINGERSTICK GLU 154 mg/dL High 74-106 [facility] Comment on above: Result Comment: JEWELS RAJPUT OF PATIENT CARE PER NURSING PROTOCOL Performed By: #### L 501.080 #### [facility] [address] [place], [place], [id number] Glucose measurement at [facility] deOrdered By: Ángel Lam on 10-20-2024 Glucose [Mass/Vol] 200 mg/dL High 74-106 [facility] Comment on above: MANAGEMENT OF PATIEN T CARE PER NURSING PROTOCOL Urine Cultureon 10-20-2024 [facility] Escherichia coli I[place]am[place] Count 50,000-80,000 Escherichia coli: REACTION Ampicillin Islt BRANDEE >=32 Ampicillin+Sulbac Islt BRANDEE 8 S Cefepime Islt BRANDEE <=0.12 S cefTRIAXone Islt BRANDEE <=0.25 S Ciprofloxacin Islt BRANDEE <=0.06 S B-Lactamase Extended Susc Islt NEG Gentamicin Islt BRANDEE <=1 S levoFLOXacin Islt BRANDEE <=0.12 S Meropenem Islt BRANDEE <=0.25 S Nitrofurantoin Islt BRANDEE <=16 S Pip+Tazo Islt BRANDEE <=4 S TMP SMX Islt BARNDEE <=[address] [facility] Comment on above: Performed By: #### L 501.080 #### [facility] [address] [place], [place], [id number] Absolute lymphocyte countOrd ered By: Anali Coello on 10-19-2024 Lymphocytes Auto (Unsp spec) [#/Vol] 1.48 10*3/uL 0.83-4.51 [facility] Absolute neutrophil countOrd ered By: Anali Coello on 10-19-2024 Neutrophils (Bld) [#/Vol] 4.8 10*3/uL 2.0-7.7 [facility] Anion gap in Serum or Plasma Ordered By: Anali Coello on 10-19-2024 Anion gap [Moles/Vol] 10 mmol/L 5-15 [facility] Automated lymphocyte count a s percentage of total leukocytesOrdered By: Anali Coello on 10-19-2024 Lymphocytes/100 WBC Auto (Unsp spec) 21.5 % 19-41 [facility] BUN/creatinine ratioOrdered By: Anali Coello on 10-19-2024 Urea nitrogen/Creatinine [Mass ratio] 11.3 mg/mg 10-20 [facility] Basophil percentageOrdered B y: Anali Coello on 10-19-2024 Basophils/100 WBC (Bld) 0.3 % 0-1 [facility] Bedside Glucoseon 10-19-2024 FINGERSTICK GLU 313 mg/dL High 74-106 [facility] Comment on above: Result Comment: JEWELS GEMENT OF PATIENT CARE PER NURSING PROTOCOL Performed By: #### L 501.080 #### [facility] [address] [place], [address] FINGERSTICK GLU 291 mg/dL High [address] [place] [address] Comment on above: Result Comment: JEWELS GEMENT OF PATIENT CARE PER NURSING PROTOCOL Performed By: #### L 501.080 #### [facility] [address] [place], [address] FINGERSTICK GLU 220 mg/dL High [address] [facility] Comment on above: Result Comment: JEWELS GEMENT OF PATIENT CARE PER NURSING PROTOCOL Performed By: #### L 501.080 #### [facility] [address] [place], [address] FINGERSTICK GLU 132 mg/dL High [address] [facility] Comment on above: Result Comment: JEWELS GEMENT OF PATIENT CARE PER NURSING PROTOCOL Performed By: #### L 501.080 #### [facility] [address] [place], [address] FINGERSTICK GLU 112 mg/dL High [facility]106 [facility] Comment on above: Result Comment: JEWELS GEMENT OF PATIENT CARE PER NURSING PROTOCOL Performed By: #### L 501.080 #### [facility] [address] [place], [address] FINGERSTICK GLU 177 mg/dL High -106 [facility] Comment on above: Result Comment: JEWELS GEMENT OF PATIENT CARE PER NURSING PROTOCOL Performed By: #### L 501.080 #### [facility] [address] [place], [address] FINGERSTICK GLU 170 mg/dL High 74-106 [facility] Comment on above: Result Comment: JEWELS GEMENT OF PATIENT CARE PER NURSING PROTOCOL Performed By: #### L 501.080 #### [facility] [address] [place], [address] FINGERSTICK GLU 135 mg/dL High 74-106 [facility] Comment on above: Result Comment: JEWELS GEMENT OF PATIENT CARE PER NURSING PROTOCOL Performed By: #### L 501.080 #### [facility] [address] [place], [address] Bilirubin, totalOrdered By: Anali Coello on 10-19-2024 Bilirubin [Mass/Vol] 0.42 mg/dL 0.00-1.30 [facility] CBC W/Diff, Automatedon 10-04 Absolute Lymph 1.48 X10 3/uL Normal 0.83-4.51 [facility] Comment on above: Performed By: #### L 501.080 #### [facility] [address] [place], [address] Absolute Neut 4.8 X10 3/uL Normal 2.0-7.7 [facility] Comment on above: Performed By: #### L 501.080 #### [facility] [address] [place], [address] Basophils/100 WBC (Bld) 0.3 % Normal 0-1 [facility] Comment on above: Performed By: #### L 501.080 #### [facility] [address] [place], [address] Eosinophils/100 WBC (Bld) 0.6 % Normal 0-5 [facility] Comment on above: Performed By: #### L 501.080 #### [facility] [address] [place], [address] Erythrocyte distribution width (RBC) [Ratio] 12.9 % Normal 11.6-14.6 [facility] Comment on above: Performed By: #### L 501.080 #### [facility] [address] [place], [address] Hematocrit (Bld) [Volume fraction] 38.0 % Normal 37-47 [facility] Comment on above: Performed By: #### L [id number] #### [facility] [address] [place], [address] Hemoglobin (Bld) [Mass/Vol] 12.4 g/dL Normal 12.0-15.0 [facility] Comment on above: Performed By: #### L 501.080 #### [facility] [address] [place], [address] IG% 0.300 Normal 0.0-0.9 [facility] Comment on above: Result Comment: IG% - Immature Granulocytes (promyelocytes, myelocytes and metamyelocytes) > 1% indicates that a LEFT SHIFT is Present. Performed By: #### L 501.080 #### [facility] [address] [place], [address] Lymphocytes/100 WBC (Bld) 21.5 % Normal 19-41 [facility] Comment on above: Performed By: #### L 501.080 #### [facility] [address] [place], [address] MCH (RBC) [Entitic mass] 29.7 pg Normal 27.0-32.0 [facility] Comment on above: Performed By: #### L 501.080 #### [facility] [address] [place], [address] MCHC (RBC) [Mass/Vol] 32.6 g/dL Normal 32-36 [facility] Comment on above: Performed By: #### L 501.080 #### [facility] [address] [place], [address] MCV (RBC) [Entitic vol] 90.9 fL Normal 81-99 [facility] Comment on above: Performed By: #### L [id number] #### [facility] [address] [place], [address] Monocytes/100 WBC (Bld) 7.3 % Normal 0-10 [facility] Comment on above: Performed By: #### L 501.080 #### [facility] [address] [place], [address] Neutrophils/100 WBC (Bld) 70.0 % Normal 47-70 [facility] Comment on above: Performed By: #### L 501.080 #### [facility] [address] [place], [address] Nucleated RBC (Bld) [#/Vol] 0 10*3/uL Normal 0-5 [facility] Comment on above: Performed By: #### L 501.080 #### [facility] [address] [place], [address] Platelet mean volume (Bld) [Entitic vol] 9.4 fL Normal 6.2-12.0 [facility] Comment on above: Performed By: #### L 501.080 #### [facility] [address] [place], [address] Platelets (Bld) [#/Vol] 181 10*3/uL Normal 150-450 [facility] Comment on above: Performed By: #### L 501.080 #### [facility] [address] [place], [address] RBC (Bld) [#/Vol] 4.18 10*6/uL Low 4.2-5.[address] [facility] Comment on above: Performed By: #### L 501.080 #### [facility] [address] [place], [address] RDW SD 42.5 fl Normal 35.1-43.9 [facility] Comment on above: Performed By: #### L 501.080 #### [facility] [address] [place], [address] WBC (Bld) [#/Vol] 6.9 10*3/uL Normal 4.4-11.0 [facility] Comment on above: Performed By: #### L 501.080 #### [facility] [address] [place], [address] Carbon dioxide, total [Moles /volume] in Central venous bloodOrdered By: Anali Coello on 10-19-2024 CO2 [Moles/Vol] 23.7 mmol/L 21.0-32.0 [facility] Chloride assayOrdered By: Medina Coello on 10-19-2024 Chloride [Moles/Vol] 103 mmol/L 98-108 [facility] Comprehensive Metabolic Prof ilon 10-19-2024 Albumin [Mass/Vol] 3.6 g/dL Normal 3.4-4.8 [facility] Comment on above: Performed By: #### L 501.080 #### [facility] [address] [place], [address] Albumin/Globulin [Mass ratio] 1.5 {ratio} Normal 0.9-2.4 [facility] Comment on above: Performed By: #### L 501.080 #### [facility] [address] [place], [address] ALK PHOS 44 U/L Normal 35-104 [facility] Comment on above: Performed By: #### L 501.080 #### [facility] [address] [place], [address] ALT [Catalytic activity/Vol] 9 U/L Normal <=34 [facility] Comment on above: Performed By: #### L 501.080 #### [facility] [address] [place], [address] AST [Catalytic activity/Vol] 24 U/L Normal <=31 [facility] Comment on above: Performed By: #### L 501.080 #### [facility] [address] [place], [address] Bilirubin [Mass/Vol] 0.42 mg/dL Normal 0.00-1.30 [facility] Comment on above: Performed By: #### L 501.080 #### [facility] [address] [place], [address] BUN/CRE 11.3 RATIO Normal 10-20 [facility] Comment on above: Performed By: #### L 501.080 #### [facility] [address] [place], [address] Calcium [Mass/Vol] 8.7 mg/dL Normal 7.6-11.0 [facility] Comment on above: Performed By: #### L 501.080 #### [facility] [address] [place], [address] Chloride [Moles/Vol] 103 mmol/L Normal 98-108 [facility] Comment on above: Performed By: #### L 501.080 #### [facility] [address] [place], [address] CO2 [Moles/Vol] 23.7 mmol/L Normal 21.0-32.0 [facility] Comment on above: Performed By: #### L 501.080 #### [facility] [address] [place], [address] Creatinine [Mass/Vol] 0.55 mg/dL Low 0.70-1.20 [facility] Comment on above: Performed By: #### L 501.080 #### [facility] [address] [place], [address] ECRCL 45.71 ml/min Low 50-250 [facility] Comment on above: Performed By: #### L 501.080 #### [facility] [address] [place], [address] GAP 10 Normal 5-15 [facility] Comment on above: Performed By: #### L 501.080 #### [facility] [address] [place], [address] GFR/1.73 sq M.predicted among non-blacks MDRD (S/P/Bld) [Vol rate/Area] 92 mL/min/{1.73_m2} Normal >60 [facility] Comment on above: Result Comment: mL/m in/1.73m2 CKD-EPI Creatinine Equation (2020) Performed By: #### L 501.080 #### [facility] [address] [place], [address] Globulin (S) [Mass/Vol] 2.4 g/dL Normal 2.2-4.2 [facility] Comment on above: Performed By: #### L 501.080 #### [facility] [address] [place], [address] Glucose [Mass/Vol] 132 mg/dL High 70-99 [facility] Comment on above: Performed By: #### L 501.080 #### [facility] [address] [place], [address] Potassium [Moles/Vol] 4.6 mmol/L Normal 3.3-5.1 [facility] Comment on above: Performed By: #### L 501.080 #### [facility] [address] [place], [place], [address] Sodium [Moles/Vol] 136 mmol/L Normal 133-145 [facility] Comment on above: Performed By: #### L 501.080 #### [facility] [address] [place], [place], [address] T PROT 6.0 g/dL Normal 5.9-8.4 [facility] Comment on above: Performed By: #### L 501.080 #### [facility] [address] [place], [place], [address] Urea nitrogen [Mass/Vol] 6 mg/dL Normal 4-19 [facility] Comment on above: Performed By: #### L 501.080 #### [facility] [address] [place], [place], [id number] Eosinophil percentageOrdered By: Anali Coello on 10-19-2024 Eosinophils/100 WBC (Bld) 0.6 % 0-5 [facility] Erythrocyte distribution wid th ratioOrdered By: Anali Coello on 10-19-2024 Erythrocyte distribution width (RBC) [Ratio] 12.9 % 11.6-14.6 [facility] Erythrocyte distribution wid th standard deviationOrdered By: Anali Coello on 10-19-2024 Erythrocyte distribution width (RBC) [Ratio] 42.5 fl 35.1-43.9 [facility] Glomerular filtration rate ( GFR) estimation/1.73 sq m using serum, plasma, or whole bOrdered By: Anali Coello on 10-19-2024 GFR/1.73 sq M.predicted among non-blacks MDRD (S/P/Bld) [Vol rate/Area] 92 mL/min/{1.73_m2} >60 [facility] Comment on above: mL/min/1.73m2 CKD-EP I Creatinine Equation (2020) Hematocrit Auto (Bld) [Volum e fraction]Ordered By: Anali Coello on 10-19-2024 Hematocrit (Bld) [Volume fraction] 38.0 % 37-47 [facility] Hemoglobin measurementOrdere d By: Anali Coello on 10-19-2024 Hemoglobin (Bld) [Mass/Vol] 12.4 g/dL 12.0-15.0 [facility] Immature granulocytes/100 WB C Auto (Bld)Ordered By: Anali Coello on 10-19-2024 Immature granulocytes/100 WBC (Bld) 0.300 % 0.0-0.9 [facility] Comment on above: IG% - Immature Granu locytes (promyelocytes, myelocytes and metamyelocytes) > 1% indicates that a LEFT SHIFT is Present. Laboratory - Chemistry and C hemistry - challengeOrdered By: Anali Coello on 10-19-2024 AST [Catalytic activity/Vol] 24 U/L <32 [facility] Lactic Acidon 10-19-2024 Lactate [Moles/Vol] 1.4 mmol/L Normal 0.0-2.[address] [facility] Comment on above: Performed By: #### L 501.080 #### [facility] [address] [place], [place], [address] Lactic acid measurementOrder ed By: Zoltan Garcia on 10-19-2024 Lactate [Moles/Vol] 1.4 mmol/L 0.0-2.[address] [facility] MCV (mean corpuscular volume ) determinationOrdered By: Anali Coello on 10-19-2024 MCV (RBC) [Entitic vol] 90.9 fL 81-99 [facility] Magnesiumon 10-19-2024 Magnesium [Mass/Vol] 1.7 mg/dL Normal 1.5-2.2 [facility] Comment on above: Performed By: #### L 501.080 #### [facility] [address] [place], [address] Magnesium measurement (mass/ volume)Ordered By: Anali Coello on 10-19-2024 Magnesium (Unsp spec) [Mass/Vol] 1.7 mg/dL 1.5-2.2 [facility] Mean corpuscular hemoglobin (MCH) determinationOrdered By: Anali Coello on 10-19-2024 MCH (RBC) [Entitic mass] 29.7 pg 27.0-32.0 [facility] Mean corpuscular hemoglobin concentration (MCHC) determinationOrdered By: Anali Coello on 10-19-2024 MCHC (RBC) [Mass/Vol] 32.6 g/dL 32-36 [facility] Mean platelet volume determi nationOrdered By: Anali Coello on 10-19-2024 Platelet mean volume (Bld) [Entitic vol] 9.4 fL 6.2-12.0 [facility] Monocyte percentageOrdered B y: Anali Coello on 10-19-2024 Monocytes/100 WBC (Bld) 7.3 % 0-10 [facility] Neutrophil percentageOrdered By: Anali Coello on 10-19-2024 Neutrophils/100 WBC (Bld) 70.0 % 47-70 [facility] Nucleated red blood cell per centageOrdered By: Anali Coello on 10-19-2024 Nucleated RBC/100 WBC (Bld) [Ratio] 0 % 0-5 [facility] Phosphoruson 10-19-2024 Phosphate [Mass/Vol] 2.8 mg/dL Normal 2.7-4.5 [facility] Comment on above: Performed By: #### L 501.080 #### [facility] [address] [place], [place] [address] [place], [address] Platelet countOrdered By: Medina Coello on 10-19-2024 Platelets (Bld) [#/Vol] 181 10*3/uL 150-450 [facility] Potassium measurement (mass/ volume)Ordered By: Anali Coello on 10-19-2024 Potassium (Unsp spec) [Mass/Vol] 4.6 mmol/L 3.3-5.1 [facility] RBC Auto (Bld) [#/Vol]Ordere d By: Anali Coello on 10-19-2024 RBC (Bld) [#/Vol] 4.18 10*6/uL Low 4.2-5.[address] [facility] Serum creatinine measurement (mass/volume)Ordered By: Anali Coello on 10-19-2024 Creatinine [Mass/Vol] 0.55 mg/dL Low 0.70-1.20 [facility] Serum globulin measurementOr dered By: Anali Coello on 10-19-2024 Globulin (S) [Mass/Vol] 2.4 g/dL 2.2-4.2 [facility] Serum glucose measurement (m ass/volume)Ordered By: Anali Coello on 10-19-2024 Glucose [Mass/Vol] 132 mg/dL High 70-99 [facility] Serum or plasma alanine rivera otransferase (ALT) measurementOrdered By: Anali Coello on 10-19-2024 ALT [Catalytic activity/Vol] 9 U/L <35 [facility] Serum or plasma albumin serge urement (mass/volume)Ordered By: Anali Coello on 10-19-2024 Albumin [Mass/Vol] 3.6 g/dL 3.4-4.8 [facility] Serum or plasma albumin/glob ulin mass ratioOrdered By: Anali Coello on 10-19-2024 Albumin/Globulin [Mass ratio] 1.5 {ratio} 0.9-2.4 [facility] Serum or plasma alkaline stephane sphatase measurementOrdered By: Anali Coello on 10-19-2024 ALP [Catalytic activity/Vol] 44 U/L 35-104 [facility] Serum or plasma calcium serge urement (mass/volume)Ordered By: Anali Coello on 10-19-2024 Calcium [Mass/Vol] 8.7 mg/dL 7.6-11.0 [facility] Serum or plasma urea nitroge n measurement (mass/volume)Ordered By: Anali Coello on 10-19-2024 Urea nitrogen [Mass/Vol] 6 mg/dL 4-19 [facility] Sodium levelOrdered By: Kayleen Coello on 10-19-2024 Sodium [Moles/Vol] 136 mmol/L 133-145 [facility] TSH DL <= 0.005 mIU/L QnOrde red By: Anali Coello on 10-19-2024 TSH Qn 1.130 uIU/mL 0.300-4.200 [facility] Thyroid Stim Hormone (TSH)on 10-19-2024 TSH 1.130 uIU/mL Normal 0.300-4.200 [facility] Comment on above: Performed By: #### L 501.080 #### [facility] [address] [place], [place], [id number] Total proteinOrdered By: Connie Coello on 10-19-2024 Protein [Mass/Vol] 6.0 g/dL 5.9-8.4 [facility] White blood cell (WBC) count Ordered By: Anali Coello on 10-19-2024 WBC (Bld) [#/Vol] 6.9 10*3/uL 4.4-11.0 [facility] Absolute lymphocyte countOrd ered By: Zoltan Garcia on 10-18-2024 Lymphocytes Auto (Unsp spec) [#/Vol] 0.94 10*3/uL 0.83-4.51 [facility] Absolute neutrophil countOrd ered By: Zoltan Garcia on 10-18-2024 Neutrophils (Bld) [#/Vol] 17.9 10*3/uL High 2.0-7.7 [facility] Anion gap in Serum or Plasma Ordered By: Zoltan Garcia on 10-18-2024 Anion gap [Moles/Vol] 17 mmol/L High 5-15 [facility] Automated lymphocyte count a s percentage of total leukocytesOrdered By: Zoltan Garcia on 10-18-2024 Lymphocytes/100 WBC Auto (Unsp spec) 4.7 % Low 19-41 [facility] BUN/creatinine ratioOrdered By: Zoltan Garcia on 10-18-2024 Urea nitrogen/Creatinine [Mass ratio] 17.1 mg/mg 10-20 [facility] Basophil percentageOrdered B y: Zoltan Garcia on 10-18-2024 Basophils/100 WBC (Bld) 0.3 % 0-1 [facility] Bedside Glucoseon 10-18-2024 FINGERSTICK GLU 129 mg/dL High 74-106 [facility] Comment on above: Result Comment: JEWELS RAJPUT OF PATIENT CARE PER NURSING PROTOCOL Performed By: #### L 501.080 #### [facility] [address] [place], [address] FINGERSTICK GLU 119 mg/dL High 74-106 [facility] Comment on above: Result Comment: JWEELS GEMENT OF PATIENT CARE PER NURSING PROTOCOL Performed By: #### L 501.080 #### [facility] [address] [place], [address] FINGERSTICK GLU 98 mg/dL Normal 74-106 [facility] Comment on above: Result Comment: JEWELS GEMENT OF PATIENT CARE PER NURSING PROTOCOL Performed By: #### L 501.080 #### [facility] [address] [place], [address] FINGERSTICK GLU 72 mg/dL Low 74-106 [facility] Comment on above: Result Comment: JEWELS GEMENT OF PATIENT CARE PER NURSING PROTOCOL Performed By: #### L 501.080 #### [facility] [address] [place], [address] FINGERSTICK GLU 82 mg/dL Normal 74-106 [facility] Comment on above: Result Comment: JEWELS GEMENT OF PATIENT CARE PER NURSING PROTOCOL Performed By: #### L 501.080 #### [facility] [address] [place], [address] Bilirubin Test strip Ql (U)O rdered By: Zoltan Garcia on 10-18-2024 Bilirubin Ql (U) Negative Negative [facility] Bilirubin, totalOrdered By: Zoltan Garcia on 10-18-2024 Bilirubin [Mass/Vol] 0.33 mg/dL 0.00-1.30 [facility] Blood cultureOrdered By: Jackson Garcia on 10-18-2024 Bacteria identified Cx Nom (Bld) No growth in [address] [facility] Bacteria identified Cx Nom (Bld) No growth in [address] [facility] Brain/Head without Contrasto n 10-18-2024 Brain/Head without Contrast [facility] Imaging Services [address] [place] [address] Brain/Head without Contrast MR#: [id number] Acct: [id number] Name: JUSTUS CHINCHILLA Rep #: [id number] : 1940 F 84 From: Jorge Zurita PCP: Dr. Donato Sepulveda MD Status: REG ER Study: Brain/Head without Contrast Date of Exam: 10/04 09/27 Exam# [id number] Ordering Dr: Zoltan Garcia DO PROCEDURE: BRAIN/HEAD [...] hydrocephalus or significant midline shift. There is amwb-fa-etbpzllp chronic microvascular ischemic changes and qtgx-zk-yueydcjk parenchymal volume loss. No acute, depressed calvarial fractures. Mild anterior frontal scalp swelling. Bilateral lens surgeries. CT/Brain/Head without Contrast IMPRESSION: No acute intracranial process. Mild anterior frontal scalp swelling. No acute calvarial defect. Reading Location: [facility] CC: Dr. Zoltan Garcia DO; Dr. Donato Sepulveda MD [employer] Finisher: Signed Normal [facility] CBC W/Diff, Automatedon 10-04 Absolute Lymph 0.94 X10 3/uL Normal 0.83-4.51 [facility] Comment on above: Performed By: #### L 501.080 #### [facility] [address] [place], [address] Absolute Neut 17.9 X10 3/uL High 2.0-7.7 [facility] Comment on above: Performed By: #### L 501.080 #### [facility] [address] [place], [address] Basophils/100 WBC (Bld) 0.3 % Normal 0-1 [facility] Comment on above: Performed By: #### L 501.080 #### [facility] [address] [place], [address] Eosinophils/100 WBC (Bld) 0.1 % Normal 0-5 [facility] Comment on above: Performed By: #### L 501.080 #### [facility] [address] [place], [address] Erythrocyte distribution width (RBC) [Ratio] 12.9 % Normal 11.6-14.6 [facility] Comment on above: Performed By: #### L 501.080 #### [facility] [address] [place], [address] Hematocrit (Bld) [Volume fraction] 48.0 % High 37-47 [facility] Comment on above: Performed By: #### L 501.080 #### [facility] [address] [place], [address] Hemoglobin (Bld) [Mass/Vol] 15.5 g/dL High 12.0-15.0 [facility] Comment on above: Performed By: #### L 501.080 #### [facility] [address] [place], [address] IG% 0.700 Normal 0.0-0.9 [facility] Comment on above: Result Comment: IG% - Immature Granulocytes (promyelocytes, myelocytes and metamyelocytes) > 1% indicates that a LEFT SHIFT is Present. Performed By: #### L 501.080 #### [facility] [address] [place], [address] Lymphocytes/100 WBC (Bld) 4.7 % Low 19-41 [facility] Comment on above: Performed By: #### L 501.080 #### [facility] [address] [place], [address] MCH (RBC) [Entitic mass] 29.4 pg Normal 27.0-32.0 [facility] Comment on above: Performed By: #### L 501.080 #### [facility] [address] [place], [address] MCHC (RBC) [Mass/Vol] 32.3 g/dL Normal 32-36 [facility] Comment on above: Performed By: #### L 501.080 #### [facility] [address] [place], [address] MCV (RBC) [Entitic vol] 90.9 fL Normal 81-99 [facility] Comment on above: Performed By: #### L 501.080 #### [facility] [address] [place], [address] Monocytes/100 WBC (Bld) 4.8 % Normal 0-10 [facility] Comment on above: Performed By: #### L 501.080 #### [facility] [address] [place], [address] Neutrophils/100 WBC (Bld) 89.4 % High 47-70 [facility] Comment on above: Performed By: #### L 501.080 #### [facility] [address] [place], [address] Nucleated RBC (Bld) [#/Vol] 0 10*3/uL Normal 0-5 [facility] Comment on above: Performed By: #### L 501.080 #### [facility] [address] [place], [address] Platelet mean volume (Bld) [Entitic vol] 10.2 fL Normal 6.2-12.0 [facility] Comment on above: Performed By: #### L 501.080 #### [facility] [address] [place], [address] Platelets (Bld) [#/Vol] 326 10*3/uL Normal 150-450 [facility] Comment on above: Performed By: #### L 501.080 #### [facility] [address] [place], [address] RBC (Bld) [#/Vol] 5.28 10*6/uL Normal 4.2-5.[address] [facility] Comment on above: Performed By: #### L 501.080 #### [facility] [address] [place], [address] RDW SD 43.0 fl Normal 35.1-43.9 [facility] Comment on above: Performed By: #### L 501.080 #### [facility] [address] [place], [address] WBC (Bld) [#/Vol] 20.0 10*3/uL High 4.4-11.[address] [facility] Comment on above: Performed By: #### L 501.080 #### [facility] [address] [place], [address] Carbon dioxide, total [Moles /volume] in Central venous bloodOrdered By: Zoltan Garcia on 10-18-2024 CO2 [Moles/Vol] 24.5 mmol/L 21.0-32.0 [facility] Chloride assayOrdered By: Bin Garcia on 10-18-2024 Chloride [Moles/Vol] 102 mmol/L 98-108 [facility] Emergency Department Summary on 10-18-2024 Emergency Department Summary [facility] Medical Records Department [address] [place] [address] Emergency Department Summary 10/18/24 MR#: [id number] Acct: [id number] Name: JUSTUS CHINCHILLA Rep #: [id number] : 1940 84 From: Zoltan Garcia DO PCP: Dr. Donato Sepulveda MD Status:ADM IN Location: [place] [id number] HPI HPI - Fall History of Present [...] takes oral hypoglycemics as well as insulin. [facility] Medical History (Updated 10/18/24 @ 21:59 by [...] History (Revie (more content not included)... Normal [facility] Eosinophil percentageOrdered By: Zoltan Garcia on 10-18-2024 Eosinophils/100 WBC (Bld) 0.1 % 0-5 [facility] Erythrocyte distribution wid th ratioOrdered By: Zoltan Garcia on 10-18-2024 Erythrocyte distribution width (RBC) [Ratio] 12.9 % 11.6-14.6 [facility] Erythrocyte distribution wid th standard deviationOrdered By: Zoltan Garcia on 10-18-2024 Erythrocyte distribution width (RBC) [Ratio] 43.0 fl 35.1-43.9 [facility] Glomerular filtration rate ( GFR) estimation/1.73 sq m using serum, plasma, or whole bOrdered By: Zoltan Garcia on 10-18-2024 GFR/1.73 sq M.predicted among non-blacks MDRD (S/P/Bld) [Vol rate/Area] 88 mL/min/{1.73_m2} >60 [facility] Comment on above: mL/min/1.73m2 CKD-EP I Creatinine Equation (2020) [facility] deOrdered By: Anali Coello on 10-18-2024 Glucose [Mass/Vol] 129 mg/dL High 74-106 [facility] Comment on above: MANAGEMENT OF PATIEN T CARE PER NURSING PROTOCOL H AND P Exam - Hospital[facility] 10-18-2024 H&P Exam - Hospitalist [facility] Medical Records Department [address] [place] [address] H P Exam - Hospitalist 10/18/242107 MR#: [id number] Acct: [id number] Name: JUSTUS CHINCHILLA Rep #: [id number] : 1940 84 From: Anali Coello DO PCP: Dr. Donato Sepulveda MD Status:ADM IN Location: [place] [id number] HPI - General General Date of Admission: 10/18/24 Date of Service: 10/18/24 Chief Complaint: Fall/altered mental status HPI Narrative JUSTUS CHINCHILLA, is a 84 F who presented to the emergency department at [facility] on 10/18/2024 with chief complaint [...] she was close to her baseline mentation. [facility] Medical History (Updated 10/18/24 @ [...] H i (more content not included)... Normal [facility] Hematocrit Auto (Bld) [Volum e fraction]Ordered By: Zoltan Garcia on 10-18-2024 Hematocrit (Bld) [Volume fraction] 48.0 % High 37-47 [facility] Hemoglobin measurementOrdere d By: Zoltan Garcia on 10-18-2024 Hemoglobin (Bld) [Mass/Vol] 15.5 g/dL High 12.0-15.0 [facility] Immature granulocytes/100 WB C Auto (Bld)Ordered By: Zoltan Garcia on 10-18-2024 Immature granulocytes/100 WBC (Bld) 0.700 % 0.0-0.9 [facility] Comment on above: IG% - Immature Granu locytes (promyelocytes, myelocytes and metamyelocytes) > 1% indicates that a LEFT SHIFT is Present. International normalized rat io (INR) calculationOrdered By: Zoltan Garcia on 10-18-2024 INR Coag (Bld) [Relative time] 1.0 {INR} [facility] Ketones Test strip Ql (U)Ord ered By: Zoltan Garcia on 10-18-2024 Ketones Ql (U) Negative Negative [facility] - Chemistry and C hemistry - challengeOrdered By: Zoltan Garcia on 10-18-2024 AST [Catalytic activity/Vol] 34 U/L High <32 [facility] Lactic Acidon 10-18-2024 Lactate [Moles/Vol] 2.8 mmol/L Invalid Interpretation Code 0.0-2.0 [facility] Comment on above: Order Comment: Y Result Comment: Crit ical Result(s) Called at: 2123 by:??REKHA GARCIA TO ISAAC LEMUS Results read back by same. Performed By: #### L 501.080 #### [facility] [place], [address] Lactic acid measurementOrder ed By: Zoltan Garcia on 10-18-2024 Lactate [Moles/Vol] 2.8 mmol/L High 0.0-2.[address] [facility] Comment on above: Critical Result(s) C alled at: 2123 by: REKHA GARCIA TO ISAAC LEMUS Results read back by same. MCV (mean corpuscular volume ) determinationOrdered By: Zoltan Garcia on 10-18-2024 MCV (RBC) [Entitic vol] 90.9 fL 81-99 [facility] Mean corpuscular hemoglobin (MCH) determinationOrdered By: Zoltan Garcia on 10-18-2024 MCH (RBC) [Entitic mass] 29.4 pg 27.0-32.0 [facility] Mean corpuscular hemoglobin concentration (MCHC) determinationOrdered By: Zoltan Garcia on 10-18-2024 MCHC (RBC) [Mass/Vol] 32.3 g/dL 32-36 [facility] Mean platelet volume determi nationOrdered By: Zoltan Garcia on 10-18-2024 Platelet mean volume (Bld) [Entitic vol] 10.2 fL 6.2-12.0 [facility] Microscopic analysis of urin e for red blood cells (RBC)Ordered By: Zoltan Garcia on 10-18-2024 Microscopic analysis of urine for red blood cells (RBC) 0 SEEN /hpf 0-5 [facility] Monocyte percentageOrdered B y: Zoltan Garcia on 10-18-2024 Monocytes/100 WBC (Bld) 4.8 % 0-10 [facility] Mucus LM Ql (Urine sed)Order ed By: Zoltan Garcia on 10-18-2024 Mucus Ql (Urine sed) 0 SEEN /hpf [facility] Neutrophil percentageOrdered By: Zoltan Garcia on 10-18-2024 Neutrophils/100 WBC (Bld) 89.4 % High 47-70 [facility] Nitrite Test strip Ql (U)Ord ered By: Zoltan Garcia on 10-18-2024 Nitrite Ql (U) Positive High Negative [facility] Nucleated red blood cell per centageOrdered By: Zoltan Garcia on 10-18-2024 Nucleated RBC/100 WBC (Bld) [Ratio] 0 % 0-5 [facility] Platelet countOrdered By: Bin Garcia on 10-18-2024 Platelets (Bld) [#/Vol] 326 10*3/uL 150-450 [facility] Potassium measurement (mass/ volume)Ordered By: Zoltan Garcia on 10-18-2024 Potassium (Unsp spec) [Mass/Vol] 3.2 mmol/L Low 3.3-5.1 [facility] Protein Test strip Ql (U)Ord ered By: Zoltan Garcia on 10-18-2024 Protein Ql (U) 30 mg/dl High Negative [facility] Prothrombin Time w/INRon INR Coag (PPP) [Relative time] 1.0 {INR} Normal [facility] Comment on above: Performed By: #### L 501.080 #### [facility] [address] [place], [address] PT Coag (PPP) [Time] 13.4 s Normal 11.7-14.9 [facility] Comment on above: Performed By: #### L 501.080 #### [facility] [address] [place], [address] Prothrombin timeOrdered By: Zoltan Garcia on 10-18-2024 PT Coag (PPP) [Time] 13.4 s 11.7-14.9 [facility] RBC Auto (Bld) [#/Vol]Ordere d By: Zoltan Garcia on 10-18-2024 RBC (Bld) [#/Vol] 5.28 10*6/uL 4.2-5.[address] [facility] Serum creatinine measurement (mass/volume)Ordered By: Zoltan Garcia on 10-18-2024 Creatinine [Mass/Vol] 0.64 mg/dL Low 0.70-1.20 [facility] Serum globulin measurementOr dered By: Zoltan Garcia on 10-18-2024 Globulin (S) [Mass/Vol] 3.3 g/dL 2.2-4.2 [facility] Serum glucose measurement (m ass/volume)Ordered By: Zoltan Garcia on 10-18-2024 Glucose [Mass/Vol] 16 mg/dL Invalid Interpretation Code 70-99 [facility] Comment on above: Critical Result(s) [...] same. Performed By: #### L 501.080 #### [facility] [address] [place] [address]. [place], [address] Serum or plasma alanine rivera otransferase (ALT) measurementOrdered By: Zoltan Garcia on 10-18-2024 ALT [Catalytic activity/Vol] 13 U/L <35 [facility] Serum or plasma albumin serge urement (mass/volume)Ordered By: Zoltan Garcia on 10-18-2024 Albumin [Mass/Vol] 4.7 g/dL 3.4-4.8 [facility] Serum or plasma albumin/glob ulin mass ratioOrdered By: Zoltan Garcia on 10-18-2024 Albumin/Globulin [Mass ratio] 1.4 {ratio} 0.9-2.4 [facility] Serum or plasma alkaline stephane sphatase measurementOrdered By: Zoltan Garcia on 10-18-2024 ALP [Catalytic activity/Vol] 60 U/L 35-104 [facility] Serum or plasma calcium serge urement (mass/volume)Ordered By: Zoltan Garcia on 10-18-2024 Calcium [Mass/Vol] 10.0 mg/dL 7.6-11.0 [facility] Serum or plasma urea nitroge n measurement (mass/volume)Ordered By: Zoltan Garcia on 10-18-2024 Urea nitrogen [Mass/Vol] 11 mg/dL 4-19 [facility] Sodium levelOrdered By: Bebo Garcia on 10-18-2024 Sodium [Moles/Vol] 143 mmol/L 133-145 [facility] Squamous epithelial cells de tection in urine sediment by light microscopyOrdered By: Zoltan Garcia on 10-18-2024 Epithelial cells.squamous LM Ql (Urine sed) 0-5 SEEN /hpf 5-10 [facility] Total proteinOrdered By: Jackson Garcia on 10-18-2024 Protein [Mass/Vol] 8.0 g/dL 5.9-8.4 [facility] Urinalysis, Completeon 10-18 BACTERIA 4+ /hpf Normal None Seen [facility] Comment on above: Order Comment: ABEBE TER SPECIMEN Performed By: #### L 400.0001 #### [facility] [address] [place], [address] EPI,SQUAMOUS 0-5 SEEN Normal 5-10 [facility] Comment on above: Order Comment: ABEBE TER SPECIMEN Performed By: #### L 400.0001 #### [facility] [address] [place], [address] WBC 10-25 SEEN Normal 0-5 [facility] Comment on above: Order Comment: ABEBE TER SPECIMEN Performed By: #### L 400.0001 #### [facility] [address] [place], [place], [id number] Mucus Ql (Urine sed) 0 SEEN Normal [facility] Comment on above: Order Comment: ABEBE TER SPECIMEN Performed By: #### L 400.0001 #### [facility] [address] [place], [address] RBC 0 SEEN Normal 0-5 [facility] Comment on above: Order Comment: ABEBE TER SPECIMEN Performed By: #### L 400.0001 #### [facility] [address] [place], [place], [id number] Urine clarityOrdered By: Jackson Garcia on 10-18-2024 Clarity (U) Clear Clear [facility] Urine color determinationOrd ered By: Zoltan Garcia on 10-18-2024 Color (U) Yellow Yellow [facility] Urine cultureOrdered By: Jackson Garcia on 10-18-2024 Bacteria identified Cx Nom (U) Escherichia coli Abnormal [facility] Urine glucose detectionOrder ed By: Zoltan Garcia on 10-18-2024 Glucose Ql (U) 1000 mg/dl High Normal [facility] Urine leukocyte esterase det ection by dipstickOrdered By: Zoltan Garcia on 10-18-2024 Leukocyte esterase Test strip Ql (U) 25 /ul High Negative [facility] Urine pHOrdered By: Zoltan vela on 10-18-2024 pH (U) 6.5 [pH] 5.0 - 8.0 [facility] Urine sediment bacteria coun t by microscopy (number/high power field)Ordered By: Zoltan Garcia on 10-18-2024 Bacteria LM.HPF (Urine sed) [#/Area] 4 /[HPF] None Seen [facility] Urine specific gravity measu rementOrdered By: Zoltan Garcia on 10-18-2024 Specific gravity (U) [Rel density] 1.015 1.002-1.030 [facility] Urine urobilinogen measureme ntOrdered By: Zoltan Garcia on 10-18-2024 Urobilinogen Ql (U) Normal mg/dl Normal [facility] White blood cell (WBC) count Ordered By: Zoltan Garcia on 10-18-2024 WBC (Bld) [#/Vol] 20.0 10*3/uL High 4.4-11.[address] [facility] White blood cell countOrdere d By: Zoltan Garcia on 10-18-2024 White blood cell count 10-25 SEEN /hpf 0-5 [facility] Anion gap in Serum or Plasma Ordered By: Donato Sepulveda on 10-06-2024 Anion gap [Moles/Vol] 10 mmol/L 5-15 [facility] BUN/creatinine ratioOrdered By: Donato Sepulveda on 10-06-2024 Urea nitrogen/Creatinine [Mass ratio] 21.9 mg/mg High 10-20 [facility] Bilirubin directOrdered By: Donato Sepulveda on 10-06-2024 Bilirubin.direct [Mass/Vol] 0.11 mg/dL 0.00-0.30 [facility] Bilirubin, totalOrdered By: Donato Sepulveda on 10-06-2024 Bilirubin [Mass/Vol] 0.24 mg/dL 0.00-1.30 [facility] Calculated very low density lipoprotein (VLDL) cholesterol measurementOrdered By: Donato Sepulveda on 10-06-2024 Calculated very low density lipoprotein (VLDL) cholesterol measurement 14 mg/dL 5-40 [facility] Carbon dioxide, total [Moles /volume] in Central venous bloodOrdered By: Donato Sepulveda on 10-06-2024 CO2 [Moles/Vol] 29.2 mmol/L 21.0-32.0 [facility] Chloride assayOrdered By: Livier Sepulveda on 10-06-2024 Chloride [Moles/Vol] 99 mmol/L 98-108 [facility] Erythrocyte distribution wid th ratioOrdered By: Donato Sepulveda on 10-06-2024 Erythrocyte distribution width (RBC) [Ratio] 12.8 % 11.6-14.6 [facility] Erythrocyte distribution wid th standard deviationOrdered By: Donato Sepulveda on 10-06-2024 Erythrocyte distribution width (RBC) [Ratio] 43.8 fl 35.1-43.9 [facility] Glomerular filtration rate ( GFR) estimation/1.73 sq m using serum, plasma, or whole bOrdered By: Donato Sepulveda on 10-06-2024 GFR/1.73 sq M.predicted among non-blacks MDRD (S/P/Bld) [Vol rate/Area] 79 mL/min/{1.73_m2} >60 [facility] Comment on above: mL/min/1.73m2 CKD-EP I Creatinine Equation (2020) Hematocrit Auto (Bld) [Volum e fraction]Ordered By: Donato Sepulveda on 10-06-2024 Hematocrit (Bld) [Volume fraction] 37.1 % 37-47 [facility] Hemoglobin A1c percentageOrd ered By: Donato Sepulveda on 10-06-2024 HbA1c (Bld) [Mass fraction] 9.5 % High <5.7 [facility] Comment on above: Normal < 5.7 % Predi abetic 5.7 - 6.4 % Diabetic >or= 6.5 % Please note range changes. Hemoglobin measurementOrdere d By: Donato Sepulveda on 10-06-2024 Hemoglobin (Bld) [Mass/Vol] 11.9 g/dL Low 12.0-15.0 [facility] LDL calc ser/plasOrdered By: Donato Sepulveda on 10-06-2024 Cholesterol in LDL [Mass/Vol] 92 mg/dL [facility] Comment on above: Frlwpymwmv=869-143 m g/dL & Higher Hxga=873 mg/dL or greater Laboratory - Chemistry and C hemistry - challengeOrdered By: Donato Sepulveda on 10-06-2024 AST [Catalytic activity/Vol] 19 U/L <32 [facility] MCV (mean corpuscular volume ) determinationOrdered By: Donato Sepulveda on 10-06-2024 MCV (RBC) [Entitic vol] 92.8 fL 81-99 [facility] Mean corpuscular hemoglobin (MCH) determinationOrdered By: Donato Sepulveda on 10-06-2024 MCH (RBC) [Entitic mass] 29.8 pg 27.0-32.0 [facility] Mean corpuscular hemoglobin concentration (MCHC) determinationOrdered By: Donato Sepulveda on 10-06-2024 MCHC (RBC) [Mass/Vol] 32.1 g/dL 32-36 [facility] Mean platelet volume determi nationOrdered By: Donato Sepulveda on 10-06-2024 Platelet mean volume (Bld) [Entitic vol] 10.8 fL 6.2-12.0 [facility] Platelet countOrdered By: Livier Sepulveda on 10-06-2024 Platelets (Bld) [#/Vol] 182 10*3/uL 150-450 [facility] Potassium measurement (mass/ volume)Ordered By: Donato Sepulveda on 10-06-2024 Potassium (Unsp spec) [Mass/Vol] 4.3 mmol/L 3.3-5.1 [facility] RBC Auto (Bld) [#/Vol]Ordere d By: Donato Sepulveda on 10-06-2024 RBC (Bld) [#/Vol] 4.00 10*6/uL Low 4.2-5.[address] [facility] Screening total cholesterol/ high density lipoprotein (HDL) cholesterol ratioOrdered By: Donato Sepulveda on 10-06-2024 Cholesterol.total/Gabby sterol in HDL [Mass ratio] 2.80 {ratio} [facility] Serum creatinine measurement (mass/volume)Ordered By: Donato Sepulveda on 10-06-2024 Creatinine [Mass/Vol] 0.75 mg/dL 0.70-1.20 [facility] Serum globulin measurementOr dered By: Donato Sepulveda on 10-06-2024 Globulin (S) [Mass/Vol] 2.3 g/dL 2.2-4.2 [facility] Serum glucose measurement (m ass/volume)Ordered By: Donato Sepulveda on 10-06-2024 Glucose [Mass/Vol] 232 mg/dL High 70-99 [facility] Serum or plasma alanine rivera otransferase (ALT) measurementOrdered By: Donato Sepulveda on 10-06-2024 ALT [Catalytic activity/Vol] 8 U/L <35 [facility] Serum or plasma albumin serge urement (mass/volume)Ordered By: Donato Sepulveda on 10-06-2024 Albumin [Mass/Vol] 3.7 g/dL 3.4-4.8 [facility] Serum or plasma alkaline stephane sphatase measurementOrdered By: Donato Sepulveda on 10-06-2024 ALP [Catalytic activity/Vol] 50 U/L 35-104 [facility] Serum or plasma calcium serge urement (mass/volume)Ordered By: Donato Sepulveda on 10-06-2024 Calcium [Mass/Vol] 9.1 mg/dL 7.6-11.0 [facility] Serum or plasma cholesterol in HDL measurement (mass/volume)Ordered By: Donato Sepulveda on 10-06-2024 Cholesterol in HDL [Mass/Vol] 59 mg/dL >40 [facility] Comment on above: National Cholesterol Education Program (NCEP) guidelines:<40 mg/dL: Low HDL-cholesterol (major risk factor for CHD)>= 60 mg/dL: High HDL-cholesterol (negative risk factor for CHD)HDL-cholesterol is affected by a number of factors, e.g. smoking, exercise, hormones, sex and age. Serum or plasma cholesterol measurement (mass/volume)Ordered By: Donato Sepulveda on 10-06-2024 Cholesterol [Mass/Vol] 164 mg/dL <201 [facility] Comment on above: Cholesterol level, D esirable <200 mg/dLBorderline high cholesterol 200-239 mg/dLHigh cholesterol >=240 mg/dLRecommendations of the NCEP Adult Treatment Panel for the following risk-cutoff thresholds for the [place] population. Serum or plasma urea nitroge n measurement (mass/volume)Ordered By: Donato Sepulveda on 10-06-2024 Urea nitrogen [Mass/Vol] 16 mg/dL 4-19 [facility] Sodium levelOrdered By: Raul Sepulveda on 10-06-2024 Sodium [Moles/Vol] 138 mmol/L 133-145 [facility] Total proteinOrdered By: Sherwin Sepulveda on 10-06-2024 Protein [Mass/Vol] 6.0 g/dL 5.9-8.4 [facility] Triglycerides measurementOrd ered By: Donato Sepulveda on 10-06-2024 Triglyceride [Mass/Vol] 68 mg/dL <199 [facility] Comment on above: The drugs N-Acetylcy steine and Metamizole may falsely depress this assay. Normal range: <150 mg/dLBorderline High: 150-199 mg/dLHigh: 200-499 mg/dLVery High: >500 mg/dL White blood cell (WBC) count Ordered By: Donato Sepulveda on 10-06-2024 WBC (Bld) [#/Vol] 7.1 10*3/uL 4.4-11.0 [facility] Hemoglobin A1c percentageOrd ered By: Donato Sepulveda on 09-08-2024 HbA1c (Bld) [Mass fraction] 8.8 % High <5.7 [facility] Comment on above: Normal < 5.7 % Predi abetic 5.7 - 6.4 % Diabetic >or= 6.5 % Please note range changes. Bedside Glucoseon 08-24-2024 FINGERSTICK GLU 240 mg/dL High 74-106 [facility] Comment on above: Result Comment: JEWELS RAJPUT OF PATIENT CARE PER NURSING PROTOCOL Performed By: #### L 501.080 #### [facility] [address] [place]. [place], [place], [address] Fluoro Guided Needle Placeme nton 08-24-2024 Fluoro Guided Needle Placement [facility] Imaging Services [address] [place], [place] [address] Fluoro Guided Needle Placement MR#: [id number] Acct: [id number] Name: RENÉEJUSTUS M Rep #: [id number] : 1940 F 84 From: Tomi metz MD PCP: Dr. Donato Sepulveda MD Status: [facility] Study: Fluoro Guided Needle Placement Date of Exam: 0 08/24/24 Exam# [id number] Ordering Dr: Armando Rich MD PROCEDURE: FLUORO GUIDED NEEDLE PLACEMENT 08/24/2024 REASON FOR EXAM: RT KNEE INJECTION TECHNIQUE: Intraoperative fluoroscopic services provided for right knee injection. 5.1 seconds of fluoroscopy. 0.85 mGy. 4 images were taken. COMPARISON: None FINDINGS: Intraoperative fluoroscopic services for knee injection. RAD/Fluoro Guided Needle Placement IMPRESSION: Fluoroscopic services provided for right knee injection. Reading Location: [place] [address] CC: Dr. Donato Sepulveda MD; Dr. Armando Rich MD [employer]ining Finisher: Signed Normal [facility] Glucose measurement at [facility] deOrdered By: Armando Rich on 08-24-2024 [facility] 240 mg/dL High 74-106 [facility] Comment on above: MANAGEMENT OF PATIEN T CARE PER NURSING PROTOCOL Glucose [Mass/Vol] 240 mg/dL High 74-106 [facility] Comment on above: MANAGEMENT OF PATIEN T CARE PER NURSING PROTOCOL Operative Reporton Operative Report [facility] Medical Records Department [address] [place] [address] Operative Report 08/24/24 0932 MR#: [id number] Acct: [id number] Name: JUSTUS CHINCHILLA Rep #: [id number] : 1940 84 From: Armando Rich MD PCP: Dr. Donato Sepulveda MD Status:[employer] Location: [place] [address] Operative Report (Standard) Operative Information Date of Procedure: 08/24/24 Pre-Operative Diagnosis: Osteoarthritis of the right knee, chronic postoperative knee pain Post-Operative Diagnosis: Osteoarthritis of the right knee, chronic postoperative knee pain Surgery/Procedure Performed: Right knee superior medial/superior lateral/inferior medial genicular nerves steroid injection under fluoroscopic guidance operations specialist: No Type of Anesthesia: Local RN Documented [...] None VTE Pharm Prophylaxis ordered?: No 08/24/24 1580 Cosigner Signature (if applicable): CC: PALOMA Schneider; Dr. Donato Sepulveda MD; Dr. Armando Rich MD Signed Normal [facility] Absolute lymphocyte countOrd ered By: Donato Sepulveda on 07-15-2024 Lymphocytes Auto (Unsp spec) [#/Vol] 1.27 10*3/uL 0.83-4.51 [facility] Absolute neutrophil countOrd ered By: Donato Sepulveda on 07-15-2024 Neutrophils (Bld) [#/Vol] 4.2 10*3/uL 2.0-7.7 [facility] Anion gap in Serum or Plasma Ordered By: Donato Sepulveda on 07-15-2024 Anion gap [Moles/Vol] 12 mmol/L 5-15 [facility] Automated lymphocyte count a s percentage of total leukocytesOrdered By: Donato Sepulveda on 07-15-2024 Lymphocytes/100 WBC Auto (Unsp spec) 21.1 % 19-41 [facility] BUN/creatinine ratioOrdered By: Donato Sepulveda on 07-15-2024 Urea nitrogen/Creatinine [Mass ratio] 17.5 mg/mg 10-20 [facility] Basophil percentageOrdered B y: Donato Sepulveda on 07-15-2024 Basophils/100 WBC (Bld) 0.5 % 0-1 [facility] Bilirubin Test strip Ql (U)O rdered By: Donato Sepulveda on 07-15-2024 Bilirubin Ql (U) Negative Negative [facility] Bilirubin, totalOrdered By: Donato Sepulveda on 07-15-2024 Bilirubin [Mass/Vol] 0.31 mg/dL 0.00-1.30 [facility] Carbon dioxide, total [Moles /volume] in Central venous bloodOrdered By: Donato Sepulveda on 07-15-2024 CO2 [Moles/Vol] 28.3 mmol/L 21.0-32.0 [facility] Chloride assayOrdered By: Livier Sepulveda on 07-15-2024 Chloride [Moles/Vol] 98 mmol/L 98-108 [facility] Eosinophil percentageOrdered By: Donato Sepulveda on 07-15-2024 Eosinophils/100 WBC (Bld) 1.7 % 0-5 [facility] Erythrocyte distribution wid th (RBC) [Ratio]Ordered By: Donato Sepulveda on 07-15-2024 Erythrocyte distribution width (RBC) [Entitic vol] 43.9 fL 35.1-43.9 [facility] Erythrocyte distribution wid th ratioOrdered By: Donato Sepulveda on 07-15-2024 Erythrocyte distribution width (RBC) [Ratio] 13.2 % 11.6-14.6 [facility] Erythrocyte distribution wid th standard deviationOrdered By: Donato Sepulveda on 07-15-2024 Erythrocyte distribution width (RBC) [Ratio] 43.9 fl 35.1-43.9 [facility] GFR/1.73 sq M.predicted maxime g non-blacks MDRD (S/P/Bld) [Vol rate/Area]Ordered By: Donato Sepulveda on 07-15-2024 Estimated GFR (MDRD) Non-Af Amer [address]60 [facility] Comment on above: mL/min/1.73m2 CKD-EP I Creatinine Equation (2020) Glomerular filtration rate ( GFR) estimation/1.73 sq m using serum, plasma, or whole bOrdered By: Donato Sepulveda on 07-15-2024 GFR/1.73 sq M.predicted among non-blacks MDRD (S/P/Bld) [Vol rate/Area] 88 mL/min/{1.73_m2} >60 [facility] Comment on above: mL/min/1.73m2 CKD-EP I Creatinine Equation (2020) Glucose Ql (U)Ordered By: Livier Sepulveda on 07-15-2024 Glucose (U) [Mass/Vol] 1000 mg/dL High Normal [facility] Hematocrit Auto (Bld) [Volum e fraction]Ordered By: Donato Sepulveda on 07-15-2024 Hematocrit (Bld) [Volume fraction] 38.9 % 37-47 [facility] Hemoglobin measurementOrdere d By: Donato Sepulveda on 07-15-2024 Hemoglobin (Bld) [Mass/Vol] 12.6 g/dL 12.0-15.0 [facility] Immature granulocytes/100 WB C Auto (Bld)Ordered By: Donato Sepulveda on 07-15-2024 Immature granulocytes/100 WBC (Bld) 0.200 % 0.0-0.9 [facility] Comment on above: IG% - Immature Granu locytes (promyelocytes, myelocytes and metamyelocytes) > 1% indicates that a LEFT SHIFT is Present. Ketones Test strip Ql (U)Ord ered By: Rauldyanhcar Lombardirjnoris on 07-15-2024 Ketones Ql (U) Negative Negative [facility] Laboratory - Chemistry and C hemistry - challengeOrdered By: Donato Sepulveda on 07-15-2024 AST [Catalytic activity/Vol] 18 U/L <32 [facility] Lymphocytes Auto (Unsp spec) [#/Vol]Ordered By: Livierbalaji Sepulveda on 07-15-2024 Lymphocytes (Bld) [#/Vol] 1.27 10*3/uL 0.83-4.51 [facility] Lymphocytes/100 WBC Auto (Un sp spec)Ordered By: Donato Lombardirjnoris on 07-15-2024 Lymphocytes/100 WBC (Bld) 21.1 % 19-41 [facility] MCV (mean corpuscular volume ) determinationOrdered By: Donato Sepulveda on 07-15-2024 MCV (RBC) [Entitic vol] 91.3 fL 81-99 [facility] Mean corpuscular hemoglobin (MCH) determinationOrdered By: tsuenterprisechar Sepulveda on 07-15-2024 MCH (RBC) [Entitic mass] 29.6 pg 27.0-32.0 [facility] Mean corpuscular hemoglobin concentration (MCHC) determinationOrdered By: stuenterprisechar Sepulveda on 07-15-2024 MCHC (RBC) [Mass/Vol] 32.4 g/dL 32-36 [facility] Mean platelet volume determi nationOrdered By: Livierbalaji Sepulveda on 07-15-2024 Platelet mean volume (Bld) [Entitic vol] 10.7 fL 6.2-12.0 [facility] Monocyte percentageOrdered B y: Donato Sepulveda on 07-15-2024 Monocytes/100 WBC (Bld) 7.5 % 0-10 [facility] Neutrophil percentageOrdered By: Donato Sepulveda on 07-15-2024 Neutrophils/100 WBC (Bld) 69.0 % 47-70 [facility] Nitrite Test strip Ql (U)Ord ered By: Rauldyanchar Lombardirjnoris on 07-15-2024 Nitrite Ql (U) Negative Negative [facility] Nucleated red blood cell per centageOrdered By: Donato Lombardirjnoris on 07-15-2024 Nucleated RBC/100 WBC (Bld) [Ratio] 0 % 0-5 [facility] Platelet countOrdered By: Livier Sepulveda on 07-15-2024 Platelets (Bld) [#/Vol] 188 10*3/uL 150-450 [facility] Potassium (Unsp spec) [Mass/ Vol]Ordered By: Donato Sepulveda on 07-15-2024 Potassium [Moles/Vol] 4.3 mmol/L 3.3-5.1 [facility] Potassium measurement (mass/ volume)Ordered By: Donato Sepulveda on 07-15-2024 Potassium (Unsp spec) [Mass/Vol] 4.3 mmol/L 3.3-5.1 [facility] Protein Test strip Ql (U)Ord ered By: Rauldyanchar Lombardirjnoris on 07-15-2024 Protein Ql (U) Negative Negative [facility] RBC Auto (Bld) [#/Vol]Ordere d By: Rauldyanchar Lombardirjnoris on 07-15-2024 RBC (Bld) [#/Vol] 4.26 10*6/uL 4.2-5.[address] [facility] Serum creatinine measurement (mass/volume)Ordered By: Donato Sepulveda on 07-15-2024 Creatinine [Mass/Vol] 0.65 mg/dL Low 0.70-1.20 [facility] Serum globulin measurementOr dered By: Donato Sepulveda on 07-15-2024 Globulin (S) [Mass/Vol] 2.6 g/dL 2.2-4.2 [facility] Serum glucose measurement (m ass/volume)Ordered By: Donato Sepulveda on 03-12-2025 Glucose [Mass/Vol] 322 mg/dL High 70-99 [facility] Serum or plasma alanine rivera otransferase (ALT) measurementOrdered By: Donato Sepulveda on 07-15-2024 ALT [Catalytic activity/Vol] 9 U/L <35 [facility] Serum or plasma albumin serge urement (mass/volume)Ordered By: Donato Sepulveda on 07-15-2024 Albumin [Mass/Vol] 3.9 g/dL 3.4-4.8 [facility] Serum or plasma albumin/glob ulin mass ratioOrdered By: Donato Sepulveda on 07-15-2024 Albumin/Globulin [Mass ratio] 1.5 {ratio} 0.9-2.4 [facility] Serum or plasma alkaline stephane sphatase measurementOrdered By: Donato Sepulveda on 07-15-2024 ALP [Catalytic activity/Vol] 59 U/L 35-104 [facility] Serum or plasma calcium serge urement (mass/volume)Ordered By: Donato Sepulveda on 07-15-2024 Calcium [Mass/Vol] 9.6 mg/dL 7.6-11.0 [facility] Serum or plasma urea nitroge n measurement (mass/volume)Ordered By: Donato Sepulveda on 07-15-2024 Urea nitrogen [Mass/Vol] 11 mg/dL 4-19 [facility] Sodium levelOrdered By: Raul Sepulveda on 07-15-2024 Sodium [Moles/Vol] 138 mmol/L 133-145 [facility] Total proteinOrdered By: Sherwin Sepulveda on 07-15-2024 Protein [Mass/Vol] 6.6 g/dL 5.9-8.4 [facility] Urine blood detectionOrdered By: Donato Sepulveda on 07-15-2024 Urine Occult Blood Negative Negative [facility] Urine clarityOrdered By: Sherwin Sepulveda on 07-15-2024 Clarity (U) Sl. Cloudy Clear [facility] Urine color determinationOrd ered By: Donato Sepulveda on 07-15-2024 Color (U) Yellow Yellow [facility] Urine cultureOrdered By: Sherwin Sepulveda on 07-15-2024 Bacteria identified Cx Nom (U) GNR lactose molten iron pourer Abnormal [facility] Bacteria identified Cx Nom (U) Staphylococcus epidermidis Abnormal [facility] Urine glucose detectionOrder ed By: Donato Sepulveda on 07-15-2024 Glucose Ql (U) 1000 mg/dl High Normal [facility] Urine leukocyte esterase det ection by dipstickOrdered By: Donato Sepulveda on 07-15-2024 Leukocyte esterase Test strip Ql (U) Negative Negative [facility] Urine pHOrdered By: Harvey Sepulveda on 07-15-2024 pH (U) 7.0 [pH] 5.0 - 8.0 [facility] Urine specific gravity measu rementOrdered By: Donato Sepulveda on 07-15-2024 Specific gravity (U) [Rel density] 1.010 1.002-1.030 [facility] Urine urobilinogen measureme ntOrdered By: Donato Sepulveda on 07-15-2024 Urobilinogen Ql (U) 1 mg/dl High Normal [facility] Urobilinogen Ql (U)Ordered B y: Donato Sepulveda on 07-15-2024 Urobilinogen (U) [Mass/Vol] 1 mg/dL High Normal [facility] White blood cell (WBC) count Ordered By: Donato Sepulveda on 07-15-2024 WBC (Bld) [#/Vol] 6.0 10*3/uL 4.4-11.0 [facility] Vitamin D, 25-hydroxyOrdered By: Donato Sepulveda on 07-14-2024 Vitamin D 25-Hydroxy 33.9 ng/mL 30-100 [facility] Comment on above: Vitamin D StatusDefi ciency: <20 ng/mL (50nmol/L)Insufficiency: 20-30 ng/mL (50-75 nmol/L)Sufficiency: 30-100 ng/mL (75-250 nmol/L)Toxicity: >100 ng/mL (>250 nmol/L) Bilirubin Test strip Ql (U)O rdered By: Donato Sepulveda on 06-15-2024 Bilirubin Ql (U) Negative Negative [facility] Glucose Ql (U)Ordered By: Livier Sepulveda on 06-15-2024 Glucose (U) [Mass/Vol] 1000 mg/dL High Normal [facility] Ketones Test strip Ql (U)Ord ered By: Donato Sepulveda on 06-15-2024 Ketones Ql (U) Negative Negative [facility] Nitrite Test strip Ql (U)Ord ered By: Donato Sepulveda on 06-15-2024 Nitrite Ql (U) Negative Negative [facility] Protein Test strip Ql (U)Ord ered By: Donato Sepulveda on 06-15-2024 Protein Ql (U) Negative Negative [facility] Urine blood detectionOrdered By: Donato Sepulveda on 06-15-2024 Urine Occult Blood 150 /ul High Negative [facility] Urine clarityOrdered By: Sherwin Sepulveda on 06-15-2024 Clarity (U) Clear Clear [facility] Urine color determinationOrd ered By: Donato Sepulveda on 06-15-2024 Color (U) Yellow Yellow [facility] Urine cultureOrdered By: Sherwin Sepulveda on 06-15-2024 Bacteria identified Cx Nom (U) Mixed Gram Pos & Gram Neg Org Abnormal [facility] Urine glucose detectionOrder ed By: Donato Sepulveda on 06-15-2024 Glucose Ql (U) 1000 mg/dl High Normal [facility] Urine leukocyte esterase det ection by dipstickOrdered By: Donato Sepulveda on 06-15-2024 Leukocyte esterase Test strip Ql (U) 25 /ul High Negative [facility] Urine pHOrdered By: Harvey Sepulveda on 06-15-2024 pH (U) 6.0 [pH] 5.0 - 8.0 [facility] Urine specific gravity measu rementOrdered By: Donato Sepulveda on 06-15-2024 Specific gravity (U) [Rel density] 1.010 1.002-1.030 [facility] Urine urobilinogen measureme ntOrdered By: Donato Sepulveda on 06-15-2024 Urobilinogen Ql (U) Normal mg/dl Normal [facility] Urobilinogen Ql (U)Ordered B y: Donato Sepulveda on 06-15-2024 Urine Urobilinogen Normal mg/dl Normal [facility] Hemoglobin A1c percentageOrd ered By: Donato Sepulveda on 06-09-2024 HbA1c (Bld) [Mass fraction] 8.6 % High 3.8-5.6 [facility] Comment on above: Normal < 5.7 % Predi abetic 5.7 - 6.4 % Diabetic >or= 6.5 % Please note range changes. [id number] DOrdered By: Noris Sepulveda on 06-02-2024 Vitamin D 25-Hydroxy 53.0 ng/mL [facility] Comment on above: Vitamin D 25(OH) Sta tus Range Deficiency <20 ng/mL (50nmol/L) Insufficiency 20 - 30 ng/mL (50 - 75 nmol/L) Sufficiency 30 - 100 ng/mL (75 - 250 nmol/L) Toxicity >100 ng/mL (>250 nmol/L) [id number] DOrdered By: Noris Sepulveda on 04-21-2024 Vitamin D 25-Hydroxy 64.0 ng/mL [facility] Comment on above: Vitamin D 25(OH) Sta tus Range Deficiency <20 ng/mL (50nmol/L) Insufficiency 20 - 30 ng/mL (50 - 75 nmol/L) Sufficiency 30 - 100 ng/mL (75 - 250 nmol/L) Toxicity >100 ng/mL (>250 nmol/L) Basophil percentageOrdered B y: Donato Sepulveda on 08-06-2023 Bilirubin [Mass/Vol] 0.50 mg/dL 0.20-1.00 [facility] Comment on above: For patients on eltr ombopag therapy, use of Dimension [place] TBIL is not recommended. Chloride [Moles/Vol] 105 mmol/L 98-107 [facility] Glucose [Mass/Vol] 153 mg/dL 74-106 [facility] Comment on above: Fasting Glucose resu lt greater than or equal to 126 mg/dL suggests DIABETES MELLITUS per A.D.A. criteria. Hemoglobin (Bld) [Mass/Vol] 12.4 g/dL 12.0-15.0 [facility] Potassium [Moles/Vol] 4.0 mmol/L 3.5-5.1 [facility] Protein [Mass/Vol] 6.7 g/dL 6.4-8.2 [facility] Sodium [Moles/Vol] 139 mmol/L 136-145 [facility] WBC (Bld) [#/Vol] 5.9 10*3/uL 4.4-11.0 [facility] Determination of erythrocyte mean corpuscular volume (MCV)Ordered By: Donato Sepulveda on 08-06-2023 MCV (RBC) [Entitic vol] 92.5 fL 81-99 [facility] Erythrocyte distribution wid th ratioOrdered By: [facility] on 08-06-2023 Erythrocyte distribution width (RBC) [Ratio] 13.3 % 11.6-14.6 [facility] Erythrocyte distribution wid th standard deviationOrdered By: Raulenterprisechar Sepulveda on 08-06-2023 Erythrocyte distribution width (RBC) [Entitic vol] 45.2 fL 35.1-43.9 [facility] Hematocrit Auto (Bld) [Volum e fraction]Ordered By: Donato Sepulveda on 08-06-2023 Hematocrit (Bld) [Volume fraction] 39.7 % 37-47 [facility] Laboratory - Chemistry and C hemistry - challengeOrdered By: Donato Sepulveda on 08-06-2023 Albumin/Globulin [Mass ratio] 1.0 {ratio} 0.9-2.4 [facility] ALP [Catalytic activity/Vol] 59 U/L 45-117 [facility] ALT [Catalytic activity/Vol] 13 U/L 13-56 [facility] CO2 [Moles/Vol] 29.0 mmol/L 21.0-32.0 [facility] Globulin (S) [Mass/Vol] 3.3 g/dL 2.2-4.2 [facility] Urea nitrogen/Creatinine [Mass ratio] 14.4 mg/mg 10-20 [facility] Laboratory - Hematology and Cell countsOrdered By: Donato eSpulveda on 08-06-2023 MCH (RBC) [Entitic mass] 28.9 pg 27.0-32.0 [facility] MCHC (RBC) [Mass/Vol] 31.2 g/dL 32-36 [facility] Platelet mean volume (Bld) [Entitic vol] 10.1 fL 6.2-12.0 [facility] Platelets (Bld) [#/Vol] 187 10*3/uL 150-450 [facility] No Panel InformationOrdered By: Donato Sepulveda on 08-06-2023 Estimated GFR (MDRD) Amer 94 mL/min >60 [facility] Comment on above: GFR Calc Estimated GFR (MDRD) Non-Af Amer 77 mL/min >60 [facility] Comment on above: Non- GFR Calc RBC Auto (Bld) [#/Vol]Ordere d By: Donato Sepulveda on 08-06-2023 RBC (Bld) [#/Vol] 4.29 10*6/uL 4.2-5.[address] [facility] Serum or plasma calcium serge urement (mass/volume)Ordered By: Donato Sepulveda on 08-06-2023 Calcium [Mass/Vol] 9.0 mg/dL 8.5-10.1 [facility] Serum or plasma creatinine m easurement (mass/volume)Ordered By: Donato Sepulveda on 08-06-2023 Creatinine [Mass/Vol] 0.76 mg/dL 0.55-1.02 [facility] Comment on above: The validity of the calculated GFR & GFRAA in patients over 70 years has not been determined. Clinical correlation is essential. Serum or plasma urea nitroge n measurement (mass/volume)Ordered By: Donato Sepulveda on 08-06-2023 Urea nitrogen [Mass/Vol] 11 mg/dL 7-18 [facility] Thin prep Papanicolaou smear with manual screeningOrdered By: Donato Sepulveda on 08-06-2023 Thin prep Papanicolaou smear with manual screening 3.4 g/dL 3.2-5.0 [facility] Thin prep Papanicolaou smear with manual screening 15 U/L 15-37 [facility] Thin prep Papanicolaou smear with manual screening 5 5-15 [facility] Basophil percentageOrdered B y: Donato Sepulveda on 06-11-2023 Bilirubin [Mass/Vol] 0.50 mg/dL 0.20-1.00 [facility] Comment on above: For patients on eltr ombopag therapy, use of Dimension [place] TBIL is not recommended. Chloride [Moles/Vol] 105 mmol/L 98-107 [facility] Glucose [Mass/Vol] 92 mg/dL 74-106 [facility] Hemoglobin (Bld) [Mass/Vol] 12.1 g/dL 12.0-15.0 [facility] Potassium [Moles/Vol] 3.7 mmol/L 3.5-5.1 [facility] Protein [Mass/Vol] 6.9 g/dL 6.4-8.2 [facility] Sodium [Moles/Vol] 140 mmol/L 136-145 [facility] WBC (Bld) [#/Vol] 7.0 10*3/uL 4.4-11.0 [facility] Determination of erythrocyte mean corpuscular volume (MCV)Ordered By: Donato Sepulveda on 06-11-2023 MCV (RBC) [Entitic vol] 92.6 fL 81-99 [facility] Erythrocyte distribution wid th ratioOrdered By: Donato Sepulveda on 06-11-2023 Erythrocyte distribution width (RBC) [Ratio] 12.5 % 11.6-14.6 [facility] Erythrocyte distribution wid th standard deviationOrdered By: Donato Sepulveda on 06-11-2023 Erythrocyte distribution width (RBC) [Entitic vol] 42.4 fL 35.1-43.9 [facility] Hematocrit Auto (Bld) [Volum e fraction]Ordered By: Donato Sepulveda on 06-11-2023 Hematocrit (Bld) [Volume fraction] 38.6 % 37-47 [facility] Laboratory - Chemistry and C hemistry - challengeOrdered By: Donato Sepulveda on 06-11-2023 Albumin/Globulin [Mass ratio] 0.8 {ratio} 0.9-2.4 [facility] ALP [Catalytic activity/Vol] 85 U/L 45-117 [facility] ALT [Catalytic activity/Vol] 18 U/L 13-56 [facility] CO2 [Moles/Vol] 29.0 mmol/L 21.0-32.0 [facility] Globulin (S) [Mass/Vol] 3.8 g/dL 2.2-4.2 [facility] Urea nitrogen/Creatinine [Mass ratio] 18.3 mg/mg 10-20 [facility] Laboratory - Hematology and Cell countsOrdered By: Donato Sepulveda on 06-11-2023 MCH (RBC) [Entitic mass] 29.0 pg 27.0-32.0 [facility] MCHC (RBC) [Mass/Vol] 31.3 g/dL 32-36 [facility] Platelet mean volume (Bld) [Entitic vol] 11.0 fL 6.2-12.0 [facility] Platelets (Bld) [#/Vol] 190 10*3/uL 150-450 [facility] No Panel InformationOrdered By: Donato Sepulveda on 06-11-2023 Estimated GFR (MDRD) Amer 80 mL/min >60 [facility] Comment on above: GFR Calc Estimated GFR (MDRD) Non-Af Amer 66 mL/min >60 [facility] Comment on above: Non- GFR Calc Vitamin D 25-Hydroxy 29.3 ng/mL [facility] Comment on above: Vitamin D 25(OH) Sta tus Range Deficiency <20 ng/mL (50nmol/L) Insufficiency 20 - 30 ng/mL (50 - 75 nmol/L) Sufficiency 30 - 100 ng/mL (75 - 250 nmol/L) Toxicity >100 ng/mL (>250 nmol/L) RBC Auto (Bld) [#/Vol]Ordere d By: Donato Sepulveda on 06-11-2023 RBC (Bld) [#/Vol] 4.17 10*6/uL 4.2-5.[address] [facility] Serum or plasma calcium serge urement (mass/volume)Ordered By: Donato Sepulveda on 06-11-2023 Calcium [Mass/Vol] 9.2 mg/dL 8.5-10.1 [facility] Serum or plasma creatinine m easurement (mass/volume)Ordered By: Donato Sepulveda on 06-11-2023 Creatinine [Mass/Vol] 0.87 mg/dL 0.55-1.02 [facility] Comment on above: The validity of the calculated GFR & GFRAA in patients over 70 years has not been determined. Clinical correlation is essential. Serum or plasma urea nitroge n measurement (mass/volume)Ordered By: Donato Sepulveda on 06-11-2023 Urea nitrogen [Mass/Vol] 16 mg/dL 7-18 [facility] Thin prep Papanicolaou smear with manual screeningOrdered By: stuenterprisechar Sepulveda on 06-11-2023 Thin prep Papanicolaou smear with manual screening 3.1 g/dL 3.2-5.0 [facility] Thin prep Papanicolaou smear with manual screening 18 U/L 15-37 [facility] Thin prep Papanicolaou smear with manual screening 6 5-15 [facility] Whole blood hemoglobin A1c/t otal hemoglobin ratio (mass fraction)Ordered By: Donato Sepulveda on 06-11-2023 HbA1c (Bld) [Mass fraction] 8.7 % 3.8-5.6 [facility] Comment on above: Normal < 5.7 % Predi abetic 5.7 - 6.4 % Diabetic >or= 6.5 % Please note range changes. Absolute lymphocyte countOrd ered By: Colleen Walker on 06-05-2023 Lymphocytes Auto (Unsp spec) [#/Vol] 1.18 10*3/uL 0.83-4.51 [facility] Automated lymphocyte count a s percentage of total leukocytesOrdered By: Colleen Walker on 06-05-2023 Lymphocytes/100 WBC Auto (Unsp spec) 13.6 % 19-41 [facility] Basophil percentageOrdered B y: Colleen Walker on 06-05-2023 Basophil percentage 5-10 SEEN /hpf 0-5 [facility] Basophils/100 WBC (Bld) 0.6 % 0-1 [facility] Chloride [Moles/Vol] 104 mmol/L 98-107 [facility] Eosinophils/100 WBC (Bld) 2.0 % 0-5 [facility] Glucose [Mass/Vol] 150 mg/dL 74-106 [facility] Comment on above: Fasting Glucose resu lt greater than or equal to 126 mg/dL suggests DIABETES MELLITUS per A.D.A. criteria. Hemoglobin (Bld) [Mass/Vol] 13.2 g/dL 12.0-15.0 [facility] Monocytes/100 WBC (Bld) 7.2 % 0-10 [facility] Neutrophils (Bld) [#/Vol] 6.6 10*3/uL 2.0-7.7 [facility] Neutrophils/100 WBC (Bld) 76.3 % 47-70 [facility] Potassium [Moles/Vol] 3.6 mmol/L 3.5-5.1 [facility] Sodium [Moles/Vol] 137 mmol/L 136-145 [facility] WBC (Bld) [#/Vol] 8.7 10*3/uL 4.4-11.0 [facility] Bilirubin Test strip Ql (U)O rdered By: Colleen Walker on 06-05-2023 Bilirubin Ql (U) Negative Negative [facility] Determination of erythrocyte mean corpuscular volume (MCV)Ordered By: Colleen Walker on 06-05-2023 MCV (RBC) [Entitic vol] 92.9 fL 81-99 [facility] Erythrocyte distribution wid th ratioOrdered By: Colleen Walker on 06-05-2023 Erythrocyte distribution width (RBC) [Ratio] 12.6 % 11.6-14.6 [facility] Erythrocyte distribution wid th standard deviationOrdered By: Colleen Walker on 06-05-2023 Erythrocyte distribution width (RBC) [Entitic vol] 43.4 fL 35.1-43.9 [facility] Hematocrit Auto (Bld) [Volum e fraction]Ordered By: Colleen Walker on 06-05-2023 Hematocrit (Bld) [Volume fraction] 42.1 % 37-47 [facility] Immature granulocytes/100 WB C Auto (Bld)Ordered By: Colleen Walker on 06-05-2023 Immature granulocytes/100 WBC (Bld) 0.300 % 0.0-0.9 [facility] Comment on above: IG% - Immature Granu locytes (promyelocytes, myelocytes and metamyelocytes) > 1% indicates that a LEFT SHIFT is Present. Ketones Test strip Ql (U)Ord ered By: Colleen Walker on 06-05-2023 Ketones Ql (U) Negative Negative [facility] Laboratory - Chemistry and C hemistry - challengeOrdered By: Colleen Walker on 06-05-2023 CO2 [Moles/Vol] 32.0 mmol/L 21.0-32.0 [facility] Urea nitrogen/Creatinine [Mass ratio] 21.9 mg/mg 10-20 [facility] Laboratory - Hematology and Cell countsOrdered By: Colleen Walker on 06-05-2023 MCH (RBC) [Entitic mass] 29.1 pg 27.0-32.0 [facility] MCHC (RBC) [Mass/Vol] 31.4 g/dL 32-36 [facility] Nucleated RBC/100 WBC (Bld) [Ratio] 0 % 0-5 [facility] Platelets (Bld) [#/Vol] 180 10*3/uL 150-450 [facility] Mucus LM Ql (Urine sed)Order ed By: Colleen Walker on 06-05-2023 Mucus Ql (Urine sed) 0 SEEN /hpf [facility] Nitrite Test strip Ql (U)Ord ered By: Colleen Walker on 06-05-2023 Nitrite Ql (U) Negative Negative [facility] No Panel InformationOrdered By: Colleen Walker on 06-05-2023 Urine RBC 0 SEEN /hpf 0-5 [facility] Estimated Creatinine Clearance Calc 48.43 ml/min [facility] Estimated GFR (MDRD) Amer 92 mL/min >60 [facility] Comment on above: GFR Calc Estimated GFR (MDRD) Non-Af Amer 76 mL/min >60 [facility] Comment on above: Non- GFR Calc Platelet mean volume Jamie-Ec ker (Bld) [Entitic vol]Ordered By: Colleen Walker on 06-05-2023 Platelet mean volume (Bld) [Entitic vol] 10.3 fL 6.2-12.0 [facility] Protein Test strip Ql (U)Ord ered By: Colleen Walker on 06-05-2023 Protein Ql (U) 15 mg/dl Negative [facility] RBC Auto (Bld) [#/Vol]Ordere d By: Colleen Walker on 06-05-2023 RBC (Bld) [#/Vol] 4.53 10*6/uL 4.2-5.[address] [facility] Serum or plasma calcium serge urement (mass/volume)Ordered By: Colleen Walker on 06-05-2023 Calcium [Mass/Vol] 9.3 mg/dL 8.5-10.1 [facility] Serum or plasma creatinine m easurement (mass/volume)Ordered By: Colleen Walker on 06-05-2023 Creatinine [Mass/Vol] 0.78 mg/dL 0.55-1.02 [facility] Comment on above: The validity of the calculated GFR & GFRAA in patients over 70 years has not been determined. Clinical correlation is essential. Serum or plasma urea nitroge n measurement (mass/volume)Ordered By: Colleen Walker on 06-05-2023 Urea nitrogen [Mass/Vol] 17 mg/dL 7-18 [facility] Squamous epithelial cells de tection in urine sediment by light microscopyOrdered By: Colleen Walker on 06-05-2023 Epithelial cells.squamous LM Ql (Urine sed) 5-10 SEEN /hpf 5-10 [facility] Thin prep Papanicolaou smear with manual screeningOrdered By: Colleen Walker on 06-05-2023 Thin prep Papanicolaou smear with manual screening 1 5-15 [facility] Urine blood detectionOrdered By: Colleen Walker on 06-05-2023 RBC Ql (U) 50 /ul Negative [facility] Urine clarityOrdered By: Yadira Walker on 06-05-2023 Clarity (U) Sl. Cloudy Clear [facility] Urine color determinationOrd ered By: Colleen Walker on 06-05-2023 Color (U) Yellow Yellow [facility] Urine glucose detectionOrder ed By: Colleen Walker on 06-05-2023 Glucose Ql (U) 1000 mg/dl Normal [facility] Urine leukocyte esterase det ection by dipstickOrdered By: Colleen Walker on 06-05-2023 Leukocyte esterase Test strip Ql (U) 100 /ul Negative [facility] Urine pHOrdered By: Colleen ma on 06-05-2023 pH (U) 6.0 [pH] 5.0 - 8.0 [facility] Urine sediment bacteria coun t by microscopy (number/high power field)Ordered By: Colleen Walker on 06-05-2023 Bacteria LM.HPF (Urine sed) [#/Area] 0 /[HPF] None Seen [facility] Urine specific gravity measu rementOrdered By: Colleen Walker on 06-05-2023 Specific gravity (U) [Rel density] 1.015 1.002-1.030 [facility] Urine urobilinogen measureme ntOrdered By: Colleen Walker on 06-05-2023 Urobilinogen Ql (U) Normal mg/dl Normal [facility] Absolute lymphocyte countOrd ered By: Donato Sepulveda on 04-23-2023 Lymphocytes Auto (Unsp spec) [#/Vol] 1.27 10*3/uL 0.83-4.51 [facility] Basophil percentageOrdered B y: Donato Sepulveda on 04-23-2023 Basophils/100 WBC (Bld) 0.3 % 0-1 [facility] Chloride [Moles/Vol] 106 mmol/L 98-107 [facility] Eosinophils/100 WBC (Bld) 4.6 % 0-5 [facility] Glucose [Mass/Vol] 96 mg/dL 74-106 [facility] Neutrophils (Bld) [#/Vol] 4.1 10*3/uL 2.0-7.7 [facility] Neutrophils/100 WBC (Bld) 67.6 % 47-70 [facility] Potassium [Moles/Vol] 3.7 mmol/L 3.5-5.1 [facility] Sodium [Moles/Vol] 141 mmol/L 136-145 [facility] WBC (Bld) [#/Vol] 6.1 10*3/uL 4.4-11.0 [facility] Blood erythrocytes count (nu mber/volume)Ordered By: Donato Sepulveda on 04-23-2023 RBC (Bld) [#/Vol] 4.10 10*6/uL 4.2-5.[address] [facility] Blood hemoglobin measurement (mass/volume)Ordered By: Livierstudyanchar Sepulveda on 04-23-2023 Hemoglobin (Bld) [Mass/Vol] 12.0 g/dL 12.0-15.0 [facility] Blood lymphocytes/100 leukoc ytesOrdered By: Livierbalaji Sepulveda on 04-23-2023 Lymphocytes/100 WBC (Bld) 20.9 % 19-41 [facility] Blood monocytes/100 leukocyt esOrdered By: balaji Sepulveda on 04-23-2023 Monocytes/100 WBC (Bld) 6.1 % 0-10 [facility] Blood platelet mean volumeOr dered By: Livierbalaji Sepulveda on 04-23-2023 Platelet mean volume (Bld) [Entitic vol] 10.3 fL 6.2-12.0 [facility] Determination of erythrocyte mean corpuscular volume (MCV)Ordered By: Donato Sepulveda on 04-23-2023 MCV (RBC) [Entitic vol] 93.9 fL 81-99 [facility] Hematocrit Auto (Bld) [Volum e fraction]Ordered By: Livierbalaji Sepulveda on 04-23-2023 Hematocrit (Bld) [Volume fraction] 38.5 % 37-47 [facility] Laboratory - Chemistry and C hemistry - challengeOrdered By: Donato Sepulveda on 04-23-2023 CO2 [Moles/Vol] 32.0 mmol/L 21.0-32.0 [facility] Urea nitrogen/Creatinine [Mass ratio] 21.8 mg/mg 10-20 [facility] Laboratory - Hematology and Cell countsOrdered By: Donato Sepulveda on 04-23-2023 Erythrocyte distribution width (RBC) [Entitic vol] 44.9 fL 35.1-43.9 [facility] Erythrocyte distribution width (RBC) [Ratio] 13.0 % 11.6-14.6 [facility] Immature granulocytes/100 WBC (Bld) 0.500 % 0.0-0.9 [facility] Comment on above: IG% - Immature Granu locytes (promyelocytes, myelocytes and metamyelocytes) > 1% indicates that a LEFT SHIFT is Present. MCH (RBC) [Entitic mass] 29.3 pg 27.0-32.0 [facility] Nucleated RBC/100 WBC (Bld) [Ratio] 0 % 0-5 [facility] MCHC Auto (RBC) [Mass/Vol]Or dered By: Donato Sepulveda on 04-23-2023 MCHC (RBC) [Mass/Vol] 31.2 g/dL 32-36 [facility] No Panel InformationOrdered By: Donato Sepulveda on 04-23-2023 Estimated GFR (MDRD) Amer 106 mL/min >60 [facility] Comment on above: GFR Calc Estimated GFR (MDRD) Non-Af Amer 87 mL/min >60 [facility] Comment on above: Non- GFR Calc Platelets bldOrdered By: Sherwin Sepulveda on 04-23-2023 Platelets (Bld) [#/Vol] 207 10*3/uL 150-450 [facility] Serum or plasma calcium serge urement (mass/volume)Ordered By: Donato Sepulveda on 04-23-2023 Calcium [Mass/Vol] 9.3 mg/dL 8.5-10.1 [facility] Serum or plasma creatinine m easurement (mass/volume)Ordered By: Donato Sepulveda on 04-23-2023 Creatinine [Mass/Vol] 0.69 mg/dL 0.55-1.02 [facility] Comment on above: The validity of the calculated GFR & GFRAA in patients over 70 years has not been determined. Clinical correlation is essential. Serum or plasma urea nitroge n measurement (mass/volume)Ordered By: Donato Sepulveda on 04-23-2023 Urea nitrogen [Mass/Vol] 15 mg/dL 7-18 [facility] Thin prep Papanicolaou smear with manual screeningOrdered By: Donato Sepulveda on 04-23-2023 Thin prep Papanicolaou smear with manual screening 3 5-15 [facility] Basophil percentageOrdered B y: Donato Sepulveda on 04-19-2023 Potassium [Moles/Vol] 4.3 mmol/L 3.5-5.1 [facility] Basophil percentageOrdered B y: Donato Sepulveda on 04-09-2023 Bilirubin [Mass/Vol] 0.30 mg/dL 0.20-1.00 [facility] Comment on above: For patients on eltr ombopag therapy, use of Dimension [place] TBIL is not recommended. Chloride [Moles/Vol] 106 mmol/L 98-107 [facility] Glucose [Mass/Vol] 55 mg/dL 74-106 [facility] Potassium [Moles/Vol] 3.9 mmol/L 3.5-5.1 [facility] Protein [Mass/Vol] 7.2 g/dL 6.4-8.2 [facility] Sodium [Moles/Vol] 139 mmol/L 136-145 [facility] WBC (Bld) [#/Vol] 7.9 10*3/uL 4.4-11.0 [facility] Blood erythrocytes count (nu mber/volume)Ordered By: Donato Sepulveda on 04-09-2023 RBC (Bld) [#/Vol] 4.36 10*6/uL 4.2-5.[address] [facility] Blood hemoglobin measurement (mass/volume)Ordered By: Donato Sepulveda on 04-09-2023 Hemoglobin (Bld) [Mass/Vol] 12.7 g/dL 12.0-15.0 [facility] Blood platelet mean volumeOr dered By: Donato Sepulveda on 04-09-2023 Platelet mean volume (Bld) [Entitic vol] 10.9 fL 6.2-12.0 [facility] Determination of erythrocyte mean corpuscular volume (MCV)Ordered By: Donato Sepulveda on 04-09-2023 MCV (RBC) [Entitic vol] 94.5 fL 81-99 [facility] Hematocrit Auto (Bld) [Volum e fraction]Ordered By: Donato Sepulveda on 04-09-2023 Hematocrit (Bld) [Volume fraction] 41.2 % 37-47 [facility] Laboratory - Chemistry and C hemistry - challengeOrdered By: Donato Sepulveda on 04-09-2023 ALP [Catalytic activity/Vol] 90 U/L 45-117 [facility] ALT [Catalytic activity/Vol] 21 U/L 13-56 [facility] CO2 [Moles/Vol] 30.0 mmol/L 21.0-32.0 [facility] Globulin (S) [Mass/Vol] 3.7 g/dL 2.2-4.2 [facility] Urea nitrogen/Creatinine [Mass ratio] 22.9 mg/mg 10-20 [facility] Laboratory - Hematology and Cell countsOrdered By: Donato Sepulveda on 04-09-2023 Erythrocyte distribution width (RBC) [Entitic vol] 44.3 fL 35.1-43.9 [facility] Erythrocyte distribution width (RBC) [Ratio] 12.8 % 11.6-14.6 [facility] MCH (RBC) [Entitic mass] 29.1 pg 27.0-32.0 [facility] MCHC Auto (RBC) [Mass/Vol]Or dered By: Donato Sepulveda on 04-09-2023 MCHC (RBC) [Mass/Vol] 30.8 g/dL 32-36 [facility] No Panel InformationOrdered By: Donato Sepulveda on 04-09-2023 Estimated GFR (MDRD) Amer 97 mL/min >60 [facility] Comment on above: GFR Calc Estimated GFR (MDRD) Non-Af Amer 80 mL/min >60 [facility] Comment on above: Non- GFR Calc Platelets bldOrdered By: Sherwin Sepulveda on 04-09-2023 Platelets (Bld) [#/Vol] 212 10*3/uL 150-450 [facility] Serum or plasma albumin serge urement (mass/volume)Ordered By: Donato Sepulveda on 04-09-2023 Albumin [Mass/Vol] 3.5 g/dL 3.2-5.0 [facility] Serum or plasma albumin/glob ulin mass ratioOrdered By: Donato Sepulveda on 04-09-2023 Albumin/Globulin [Mass ratio] 0.9 {ratio} 0.9-2.4 [facility] Serum or plasma calcium serge urement (mass/volume)Ordered By: Donato Sepulveda on 04-09-2023 Calcium [Mass/Vol] 9.4 mg/dL 8.5-10.1 [facility] Serum or plasma creatinine m easurement (mass/volume)Ordered By: Donato Sepulveda on 04-09-2023 Creatinine [Mass/Vol] 0.74 mg/dL 0.55-1.02 [facility] Comment on above: The validity of the calculated GFR & GFRAA in patients over 70 years has not been determined. Clinical correlation is essential. Serum or plasma urea nitroge n measurement (mass/volume)Ordered By: Donato Sepulveda on 04-09-2023 Urea nitrogen [Mass/Vol] 17 mg/dL 7-18 [facility] Thin prep Papanicolaou smear with manual screeningOrdered By: Donato Sepulveda on 04-09-2023 Thin prep Papanicolaou smear with manual screening 19 U/L 15-37 [facility] Thin prep Papanicolaou smear with manual screening 3 5-15 [facility] No Panel InformationOrdered By: Donato Sepulveda on 03-12-2023 Vitamin D 25-Hydroxy 34.4 ng/mL [facility] Comment on above: Vitamin D 25(OH) Sta tus Range Deficiency <20 ng/mL (50nmol/L) Insufficiency 20 - 30 ng/mL (50 - 75 nmol/L) Sufficiency 30 - 100 ng/mL (75 - 250 nmol/L) Toxicity >100 ng/mL (>250 nmol/L) Whole blood hemoglobin A1c/t otal hemoglobin ratio (mass fraction)Ordered By: Donato Sepulveda on 03-12-2023 HbA1c (Bld) [Mass fraction] 7.4 % 3.8-5.6 [facility] Comment on above: Normal < 5.7 % Predi abetic 5.7 - 6.4 % Diabetic >or= 6.5 % Please note range changes. Basophil percentageOrdered B y: Donato Sepulveda on 02-05-2023 Bilirubin [Mass/Vol] 0.50 mg/dL 0.20-1.00 [facility] Comment on above: For patients on eltr ombopag therapy, use of Dimension [place] TBIL is not recommended. Chloride [Moles/Vol] 105 mmol/L 98-107 [facility] Glucose [Mass/Vol] 106 mg/dL 74-106 [facility] Comment on above: Fasting Glucose resu lt from 100 to 125 mg/dL suggests IMPAIRED HOMEOSTASIS per A.D.A. criteria. Potassium [Moles/Vol] 4.2 mmol/L 3.5-5.1 [facility] Protein [Mass/Vol] 6.9 g/dL 6.4-8.2 [facility] Sodium [Moles/Vol] 142 mmol/L 136-145 [facility] WBC (Bld) [#/Vol] 6.0 10*3/uL 4.4-11.0 [facility] Blood erythrocytes count (nu mber/volume)Ordered By: Donato Sepulveda on 02-05-2023 RBC (Bld) [#/Vol] 4.18 10*6/uL 4.2-5.[address] [facility] Blood hemoglobin measurement (mass/volume)Ordered By: Donato Sepulveda on 02-05-2023 Hemoglobin (Bld) [Mass/Vol] 12.1 g/dL 12.0-15.0 [facility] Blood platelet mean volumeOr dered By: Donato Sepulveda on 02-05-2023 Platelet mean volume (Bld) [Entitic vol] 10.7 fL 6.2-12.0 [facility] Determination of erythrocyte mean corpuscular volume (MCV)Ordered By: Donato Sepulveda on 02-05-2023 MCV (RBC) [Entitic vol] 95.2 fL 81-99 [facility] Direct bilirubinOrdered By: Donato Sepulveda on 02-05-2023 Bilirubin.direct [Mass/Vol] 0.15 mg/dL 0.00-0.30 [facility] Hematocrit Auto (Bld) [Volum e fraction]Ordered By: Donato Sepulveda on 02-05-2023 Hematocrit (Bld) [Volume fraction] 39.8 % 37-47 [facility] Laboratory - Chemistry and C hemistry - challengeOrdered By: Donato Sepulveda on 02-05-2023 ALP [Catalytic activity/Vol] 73 U/L 45-117 [facility] ALT [Catalytic activity/Vol] 20 U/L 13-56 [facility] CO2 [Moles/Vol] 32.0 mmol/L 21.0-32.0 [facility] Globulin (S) [Mass/Vol] 3.5 g/dL 2.2-4.2 [facility] Urea nitrogen/Creatinine [Mass ratio] 20.8 mg/mg 10-20 [facility] Laboratory - Hematology and Cell countsOrdered By: Donato Sepulveda on 02-05-2023 Erythrocyte distribution width (RBC) [Entitic vol] 46.1 fL 35.1-43.9 [facility] Erythrocyte distribution width (RBC) [Ratio] 13.1 % 11.6-14.6 [facility] MCH (RBC) [Entitic mass] 28.9 pg 27.0-32.0 [facility] MCHC Auto (RBC) [Mass/Vol]Or dered By: Donato Sepulveda on 02-05-2023 MCHC (RBC) [Mass/Vol] 30.4 g/dL 32-36 [facility] No Panel InformationOrdered By: Donato Sepulveda on 02-05-2023 Estimated GFR (MDRD) Amer 93 mL/min >60 [facility] Comment on above: GFR Calc Estimated GFR (MDRD) Non-Af Amer 76 mL/min >60 [facility] Comment on above: Non- GFR Calc Platelets bldOrdered By: Sherwin Sepulveda on 02-05-2023 Platelets (Bld) [#/Vol] 183 10*3/uL 150-450 [facility] Serum or plasma albumin serge urement (mass/volume)Ordered By: Donato Sepulveda on 02-05-2023 Albumin [Mass/Vol] 3.4 g/dL 3.2-5.0 [facility] Serum or plasma albumin/glob ulin mass ratioOrdered By: Donato Sepulveda on 02-05-2023 Albumin/Globulin [Mass ratio] 1.0 {ratio} 0.9-2.4 [facility] Serum or plasma calcium serge urement (mass/volume)Ordered By: Donato Sepulveda on 02-05-2023 Calcium [Mass/Vol] 9.4 mg/dL 8.5-10.1 [facility] Serum or plasma creatinine m easurement (mass/volume)Ordered By: Donato Sepulveda on 02-05-2023 Creatinine [Mass/Vol] 0.77 mg/dL 0.55-1.02 [facility] Comment on above: The validity of the calculated GFR & GFRAA in patients over 70 years has not been determined. Clinical correlation is essential. Serum or plasma urea nitroge n measurement (mass/volume)Ordered By: Donato Sepulveda on 02-05-2023 Urea nitrogen [Mass/Vol] 16 mg/dL 7-18 [facility] Thin prep Papanicolaou smear with manual screeningOrdered By: Donato Sepulveda on 02-05-2023 Thin prep Papanicolaou smear with manual screening 18 U/L 15-37 [facility] Thin prep Papanicolaou smear with manual screening 5 5-15 [facility] Whole blood hemoglobin A1c/t otal hemoglobin ratio (mass fraction)Ordered By: Donato Sepulveda on 02-05-2023 HbA1c (Bld) [Mass fraction] 7.0 % 3.8-5.6 [facility] Comment on above: Normal < 5.7 % Predi abetic 5.7 - 6.4 % Diabetic >or= 6.5 % Please note range changes. Basophil percentageOrdered B y: Donato Sepulveda on 12-07-2022 Potassium [Moles/Vol] 4.7 mmol/L 3.5-5.1 [facility] Basophil percentageOrdered B y: Donato Sepulveda on 12-04-2022 Bilirubin [Mass/Vol] 0.30 mg/dL 0.20-1.00 [facility] Comment on above: For patients on eltr ombopag therapy, use of Dimension [place] TBIL is not recommended. Chloride [Moles/Vol] 102 mmol/L 98-107 [facility] Glucose [Mass/Vol] 219 mg/dL 74-106 [facility] Comment on above: Glucose result great er than or equal to 200 mg/dLsuggests DIABETES MELLITUS per A.D.A. criteria. Potassium [Moles/Vol] 2.9 mmol/L 3.5-5.1 [facility] Protein [Mass/Vol] 6.6 g/dL 6.4-8.2 [facility] Sodium [Moles/Vol] 137 mmol/L 136-145 [facility] WBC (Bld) [#/Vol] 4.6 10*3/uL 4.4-11.0 [facility] Blood erythrocytes count (nu mber/volume)Ordered By: Donato Sepulveda on 12-04-2022 RBC (Bld) [#/Vol] 4.22 10*6/uL 4.2-5.[address] [facility] Blood hemoglobin measurement (mass/volume)Ordered By: Donato Sepulveda on 12-04-2022 Hemoglobin (Bld) [Mass/Vol] 12.4 g/dL 12.0-15.0 [facility] Blood platelet mean volumeOr dered By: Donato Sepulveda on 12-04-2022 Platelet mean volume (Bld) [Entitic vol] 10.7 fL 6.2-12.0 [facility] Determination of erythrocyte mean corpuscular volume (MCV)Ordered By: Donato Sepulveda on 12-04-2022 MCV (RBC) [Entitic vol] 93.8 fL 81-99 [facility] Hematocrit Auto (Bld) [Volum e fraction]Ordered By: Donato Sepulveda on 12-04-2022 Hematocrit (Bld) [Volume fraction] 39.6 % 37-47 [facility] Laboratory - Chemistry and C hemistry - challengeOrdered By: Raulenterprisechar Sepulveda on 12-04-2022 ALP [Catalytic activity/Vol] 85 U/L 45-117 [facility] ALT [Catalytic activity/Vol] 27 U/L 13-56 [facility] CO2 [Moles/Vol] 33.0 mmol/L 21.0-32.0 [facility] Globulin (S) [Mass/Vol] 3.6 g/dL 2.2-4.2 [facility] Urea nitrogen/Creatinine [Mass ratio] 13.7 mg/mg 10-20 [facility] Laboratory - Hematology and Cell countsOrdered By: Donato Sepulveda on 12-04-2022 Erythrocyte distribution width (RBC) [Entitic vol] 43.8 fL 35.1-43.9 [facility] Erythrocyte distribution width (RBC) [Ratio] 12.8 % 11.6-14.6 [facility] MCH (RBC) [Entitic mass] 29.4 pg 27.0-32.0 [facility] MCHC Auto (RBC) [Mass/Vol]Or dered By: Donato Sepulveda on 12-04-2022 MCHC (RBC) [Mass/Vol] 31.3 g/dL 32-36 [facility] No Panel InformationOrdered By: Donato Sepulvead on 12-04-2022 Estimated GFR (MDRD) Amer 80 mL/min >60 [facility] Comment on above: GFR Calc Estimated GFR (MDRD) Non-Af Amer 66 mL/min >60 [facility] Comment on above: Non- GFR Calc Vitamin D 25-Hydroxy 40.9 ng/mL [facility] Comment on above: Vitamin D 25(OH) Sta tus Range Deficiency <20 ng/mL (50nmol/L) Insufficiency 20 - 30 ng/mL (50 - 75 nmol/L) Sufficiency 30 - 100 ng/mL (75 - 250 nmol/L) Toxicity >100 ng/mL (>250 nmol/L) Platelets bldOrdered By: Sherwin Sepulveda on 12-04-2022 Platelets (Bld) [#/Vol] 167 10*3/uL 150-450 [facility] Serum or plasma albumin serge urement (mass/volume)Ordered By: Donato Sepulveda on 12-04-2022 Albumin [Mass/Vol] 3.0 g/dL 3.2-5.0 [facility] Serum or plasma albumin/glob ulin mass ratioOrdered By: Donato Sepulveda on 12-04-2022 Albumin/Globulin [Mass ratio] 0.8 {ratio} 0.9-2.4 [facility] Serum or plasma calcium serge urement (mass/volume)Ordered By: Donato Sepulveda on 12-04-2022 Calcium [Mass/Vol] 8.6 mg/dL 8.5-10.1 [facility] Serum or plasma creatinine m easurement (mass/volume)Ordered By: Donato Sepulveda on 12-04-2022 Creatinine [Mass/Vol] 0.88 mg/dL 0.55-1.02 [facility] Comment on above: The validity of the calculated GFR & GFRAA in patients over 70 years has not been determined. Clinical correlation is essential. Serum or plasma urea nitroge n measurement (mass/volume)Ordered By: Doanto Sepulveda on 12-04-2022 Urea nitrogen [Mass/Vol] 12 mg/dL 7-18 [facility] Thin prep Papanicolaou smear with manual screeningOrdered By: Donato Sepulveda on 12-04-2022 Thin prep Papanicolaou smear with manual screening 31 U/L 15-37 [facility] Thin prep Papanicolaou smear with manual screening 2 5-15 [facility] Whole blood hemoglobin A1c/t otal hemoglobin ratio (mass fraction)Ordered By: Donato Sepulveda on 12-04-2022 HbA1c (Bld) [Mass fraction] 8.2 % 3.8-5.6 [facility] Comment on above: Normal < 5.7 % Predi abetic 5.7 - 6.4 % Diabetic >or= 6.5 % Please note range changes. Basophil percentageOrdered B y: Donato Sepulveda on 11-21-2022 Potassium [Moles/Vol] 3.3 mmol/L 3.5-5.1 [facility] Basophil percentageOrdered B y: Donato Sepulveda on 10-09-2022 Bilirubin [Mass/Vol] 0.40 mg/dL 0.20-1.00 [facility] Comment on above: For patients on eltr ombopag therapy, use of Dimension [place] TBIL is not recommended. Chloride [Moles/Vol] 104 mmol/L 98-107 [facility] Glucose [Mass/Vol] 135 mg/dL 74-106 [facility] Comment on above: Fasting Glucose resu lt greater than or equal to 126 mg/dL suggests DIABETES MELLITUS per A.D.A. criteria. Potassium [Moles/Vol] 3.1 mmol/L 3.5-5.1 [facility] Protein [Mass/Vol] 6.5 g/dL 6.4-8.2 [facility] Sodium [Moles/Vol] 141 mmol/L 136-145 [facility] WBC (Bld) [#/Vol] 6.8 10*3/uL 4.4-11.0 [facility] Blood erythrocytes count (nu mber/volume)Ordered By: Donato Sepulveda on 10-09-2022 RBC (Bld) [#/Vol] 3.95 10*6/uL 4.2-5.[address] [facility] Blood hemoglobin measurement (mass/volume)Ordered By: Donato Sepulveda on 10-09-2022 Hemoglobin (Bld) [Mass/Vol] 11.7 g/dL 12.0-15.0 [facility] Blood platelet mean volumeOr dered By: Donato Sepulveda on 10-09-2022 Platelet mean volume (Bld) [Entitic vol] 10.7 fL 6.2-12.0 [facility] Determination of erythrocyte mean corpuscular volume (MCV)Ordered By: Donato Sepulveda on 10-09-2022 MCV (RBC) [Entitic vol] 94.4 fL 81-99 [facility] Hematocrit Auto (Bld) [Volum e fraction]Ordered By: Donato Sepulveda on 10-09-2022 Hematocrit (Bld) [Volume fraction] 37.3 % 37-47 [facility] Laboratory - Chemistry and C hemistry - challengeOrdered By: Donato Sepulveda on 10-09-2022 ALP [Catalytic activity/Vol] 61 U/L 45-117 [facility] ALT [Catalytic activity/Vol] 16 U/L 13-56 [facility] CO2 [Moles/Vol] 34.0 mmol/L 21.0-32.0 [facility] Globulin (S) [Mass/Vol] 3.3 g/dL 2.2-4.2 [facility] Urea nitrogen/Creatinine [Mass ratio] 13.5 mg/mg 10-20 [facility] Laboratory - Hematology and Cell countsOrdered By: Donato Sepulveda on 10-09-2022 Erythrocyte distribution width (RBC) [Entitic vol] 44.6 fL 35.1-43.9 [facility] Erythrocyte distribution width (RBC) [Ratio] 12.8 % 11.6-14.6 [facility] MCH (RBC) [Entitic mass] 29.6 pg 27.0-32.0 [facility] MCHC Auto (RBC) [Mass/Vol]Or dered By: Donato Sepulveda on 10-09-2022 MCHC (RBC) [Mass/Vol] 31.4 g/dL 32-36 [facility] No Panel InformationOrdered By: Donato Sepulveda on 10-09-2022 Estimated GFR (MDRD) Amer 97 mL/min >60 [facility] Comment on above: GFR Calc Estimated GFR (MDRD) Non-Af Amer 80 mL/min >60 [facility] Comment on above: Non- GFR Calc Platelets bldOrdered By: Sherwin Sepulveda on 10-09-2022 Platelets (Bld) [#/Vol] 157 10*3/uL 150-450 [facility] Serum or plasma albumin serge urement (mass/volume)Ordered By: Donato Sepulveda on 10-09-2022 Albumin [Mass/Vol] 3.2 g/dL 3.2-5.0 [facility] Serum or plasma albumin/glob ulin mass ratioOrdered By: Donato Sepulevda on 10-09-2022 Albumin/Globulin [Mass ratio] 1.0 {ratio} 0.9-2.4 [facility] Serum or plasma calcium serge urement (mass/volume)Ordered By: Donato Sepulveda on 10-09-2022 Calcium [Mass/Vol] 9.1 mg/dL 8.5-10.1 [facility] Serum or plasma creatinine m easurement (mass/volume)Ordered By: Donato Sepulveda on 10-09-2022 Creatinine [Mass/Vol] 0.74 mg/dL 0.55-1.02 [facility] Comment on above: The validity of the calculated GFR & GFRAA in patients over 70 years has not been determined. Clinical correlation is essential. Serum or plasma urea nitroge n measurement (mass/volume)Ordered By: Donato Sepulveda on 10-09-2022 Urea nitrogen [Mass/Vol] 10 mg/dL 7-18 [facility] Thin prep Papanicolaou smear with manual screeningOrdered By: Donato Sepulveda on 10-09-2022 Thin prep Papanicolaou smear with manual screening 15 U/L 15-37 [facility] Thin prep Papanicolaou smear with manual screening 3 5-15 [facility] Basophil percentageOrdered B y: Basilio Flores on 10-05-2022 Cholesterol [Mass/Vol] 146 mg/dL <200 [facility] Comment on above: <200 mg/dL Desirable 200-240 mg/dL Borderline >240 mg/dL High Risk Triglyceride [Mass/Vol] 83 mg/dL <199 [facility] Comment on above: The drugs N-Acetylcy steine and Metamizole may falsely depress this assay.Serum Triglycerides Reference Interval Normal <150 mg/dL Borderline high 150 - 199 mg/dL High 200 - 499 mg/dL Very High > or = 500 mg/dL Serum or plasma cholesterol in HDL measurement (mass/volume)Ordered By: Basilio Flores on 10-05-2022 Cholesterol in HDL [Mass/Vol] 69 mg/dL >40 [facility] Comment on above: The drugs N-Acetylcy steine and Metamizole may falsely depress this assay. Reference Range HDL <40 mg/dL Low HDL Cholesterol HDL >or= 60 mg/dL High HDL Cholesterol Serum or plasma cholesterol in VLDL measurement (mass/volume)Ordered By: Basilio Flores on 10-05-2022 Cholesterol in VLDL [Mass/Vol] 17 mg/dL 5-40 [facility] Serum or plasma low density lipoprotein (LDL) cholesterol measurement (mass/volume)Ordered By: Basilio Flores on 10-05-2022 Cholesterol in LDL [Mass/Vol] 60 mg/dL 0-130 [facility] Basophil percentageOrdered B y: Donato Sepulveda on 10-04-2022 Cholesterol [Mass/Vol] 154 mg/dL <200 [facility] Comment on above: <200 mg/dL Desirable 200-240 mg/dL Borderline >240 mg/dL High Risk Triglyceride [Mass/Vol] 72 mg/dL <199 [facility] Comment on above: The drugs N-Acetylcy steine and Metamizole may falsely depress this assay.Serum Triglycerides Reference Interval Normal <150 mg/dL Borderline high 150 - 199 mg/dL High 200 - 499 mg/dL Very High > or = 500 mg/dL Serum or plasma cholesterol in HDL measurement (mass/volume)Ordered By: Donato Sepulveda on 10-04-2022 Cholesterol in HDL [Mass/Vol] 70 mg/dL >40 [facility] Comment on above: The drugs N-Acetylcy steine and Metamizole may falsely depress this assay. Reference Range HDL <40 mg/dL Low HDL Cholesterol HDL >or= 60 mg/dL High HDL Cholesterol Serum or plasma cholesterol in VLDL measurement (mass/volume)Ordered By: Donato Sepulveda on 10-04-2022 Cholesterol in VLDL [Mass/Vol] 14 mg/dL 5-40 [facility] Serum or plasma low density lipoprotein (LDL) cholesterol measurement (mass/volume)Ordered By: Donato Sepulveda on 10-04-2022 Cholesterol in LDL [Mass/Vol] 70 mg/dL 0-130 [facility] No Panel InformationOrdered By: Basilio Flores on 09-04-2022 Vitamin D 25-Hydroxy 54.3 ng/mL [facility] Comment on above: Vitamin D 25(OH) Sta tus Range Deficiency <20 ng/mL (50nmol/L) Insufficiency 20 - 30 ng/mL (50 - 75 nmol/L) Sufficiency 30 - 100 ng/mL (75 - 250 nmol/L) Toxicity >100 ng/mL (>250 nmol/L) Whole blood hemoglobin A1c/t otal hemoglobin ratio (mass fraction)Ordered By: Basilio Flores on 09-04-2022 HbA1c (Bld) [Mass fraction] 10.9 % 3.8-5.6 [facility] Comment on above: Normal < 5.7 % Predi abetic 5.7 - 6.4 % Diabetic >or= 6.5 % Please note range changes. Basophil percentageOrdered B y: Donato Sepulveda on 08-07-2022 Bilirubin [Mass/Vol] 0.60 mg/dL 0.20-1.00 [facility] Comment on above: For patients on eltr ombopag therapy, use of Dimension [place] TBIL is not recommended. Chloride [Moles/Vol] 98 mmol/L 98-107 [facility] Glucose [Mass/Vol] 432 mg/dL 74-106 [facility] Comment on above: Glucose result great er than or equal to 200 mg/dLsuggests DIABETES MELLITUS per A.D.A. criteria. Potassium [Moles/Vol] 3.5 mmol/L 3.5-5.1 [facility] Protein [Mass/Vol] 6.8 g/dL 6.4-8.2 [facility] Sodium [Moles/Vol] 136 mmol/L 136-145 [facility] WBC (Bld) [#/Vol] 4.7 10*3/uL 4.4-11.0 [facility] Blood erythrocytes count (nu mber/volume)Ordered By: Donato Sepulveda on 08-07-2022 RBC (Bld) [#/Vol] 4.19 10*6/uL 4.2-5.[address] [facility] Blood hemoglobin measurement (mass/volume)Ordered By: Donato Sepulveda on 08-07-2022 Hemoglobin (Bld) [Mass/Vol] 12.2 g/dL 12.0-15.0 [facility] Blood platelet mean volumeOr dered By: Donato Sepulveda on 08-07-2022 Platelet mean volume (Bld) [Entitic vol] 10.5 fL 6.2-12.0 [facility] Determination of erythrocyte mean corpuscular volume (MCV)Ordered By: Donato Sepulveda on 08-07-2022 MCV (RBC) [Entitic vol] 92.8 fL 81-99 [facility] Hematocrit Auto (Bld) [Volum e fraction]Ordered By: Donato Sepulveda on 08-07-2022 Hematocrit (Bld) [Volume fraction] 38.9 % 37-47 [facility] Laboratory - Chemistry and C hemistry - challengeOrdered By: Donato Sepulveda on 08-07-2022 ALP [Catalytic activity/Vol] 70 U/L 45-117 [facility] ALT [Catalytic activity/Vol] 19 U/L 13-56 [facility] CO2 [Moles/Vol] 36.0 mmol/L 21.0-32.0 [facility] Globulin (S) [Mass/Vol] 3.4 g/dL 2.2-4.2 [facility] Magnesium [Mass/Vol] 1.8 mg/dL 1.6-2.6 [facility] Urea nitrogen/Creatinine [Mass ratio] 15.1 mg/mg 10-20 [facility] Laboratory - Hematology and Cell countsOrdered By: Donato Sepulveda on 08-07-2022 Erythrocyte distribution width (RBC) [Entitic vol] 44.1 fL 35.1-43.9 [facility] Erythrocyte distribution width (RBC) [Ratio] 13.0 % 11.6-14.6 [facility] MCH (RBC) [Entitic mass] 29.1 pg 27.0-32.0 [facility] MCHC Auto (RBC) [Mass/Vol]Or dered By: Donato Sepulveda on 08-07-2022 MCHC (RBC) [Mass/Vol] 31.4 g/dL 32-36 [facility] No Panel InformationOrdered By: Donato Sepulveda on 08-07-2022 Estimated GFR (MDRD) Amer 64 mL/min >60 [facility] Comment on above: GFR Calc Estimated GFR (MDRD) Non-Af Amer 53 mL/min >60 [facility] Comment on above: Non- GFR Calc Platelets bldOrdered By: Sherwin Sepulveda on 08-07-2022 Platelets (Bld) [#/Vol] 165 10*3/uL 150-450 [facility] Serum or plasma albumin serge urement (mass/volume)Ordered By: Donato Sepulveda on 08-07-2022 Albumin [Mass/Vol] 3.4 g/dL 3.2-5.0 [facility] Serum or plasma albumin/glob ulin mass ratioOrdered By: Donato Sepulveda on 08-07-2022 Albumin/Globulin [Mass ratio] 1.0 {ratio} 0.9-2.4 [facility] Serum or plasma calcium serge urement (mass/volume)Ordered By: Donato Sepulveda on 08-07-2022 Calcium [Mass/Vol] 9.7 mg/dL 8.5-10.1 [facility] Serum or plasma creatinine m easurement (mass/volume)Ordered By: Donato Sepulveda on 08-07-2022 Creatinine [Mass/Vol] 1.06 mg/dL 0.55-1.02 [facility] Comment on above: The validity of the calculated GFR & GFRAA in patients over 70 years has not been determined. Clinical correlation is essential. Serum or plasma urea nitroge n measurement (mass/volume)Ordered By: Donato Sepulveda on 08-07-2022 Urea nitrogen [Mass/Vol] 16 mg/dL 7-18 [facility] Thin prep Papanicolaou smear with manual screeningOrdered By: balaji Sepulveda on 08-07-2022 Thin prep Papanicolaou smear with manual screening 15 U/L 15-37 [facility] Thin prep Papanicolaou smear with manual screening 2 5-15 [facility] Basophil percentageOrdered B y: Basilio Flores on 06-12-2022 Bilirubin [Mass/Vol] 1.10 mg/dL 0.20-1.00 [facility] Comment on above: For patients on eltr ombopag therapy, use of Dimension [place] TBIL is not recommended. Chloride [Moles/Vol] 99 mmol/L 98-107 [facility] Glucose [Mass/Vol] 163 mg/dL 74-106 [facility] Comment on above: Fasting Glucose resu lt greater than or equal to 126 mg/dL suggests DIABETES MELLITUS per A.D.A. criteria. Potassium [Moles/Vol] 3.4 mmol/L 3.5-5.1 [facility] Protein [Mass/Vol] 7.4 g/dL 6.4-8.2 [facility] Sodium [Moles/Vol] 141 mmol/L 136-145 [facility] WBC (Bld) [#/Vol] 8.0 10*3/uL 4.4-11.0 [facility] Blood erythrocytes count (nu mber/volume)Ordered By: Basilio Flores on 06-12-2022 RBC (Bld) [#/Vol] 4.53 10*6/uL 4.2-5.[address] [facility] Blood hemoglobin measurement (mass/volume)Ordered By: Basilio Flores on 06-12-2022 Hemoglobin (Bld) [Mass/Vol] 13.2 g/dL 12.0-15.0 [facility] Blood platelet mean volumeOr dered By: Basilio Flores on 06-12-2022 Platelet mean volume (Bld) [Entitic vol] 10.4 fL 6.2-12.0 [facility] Determination of erythrocyte mean corpuscular volume (MCV)Ordered By: Basilio Flores on 06-12-2022 MCV (RBC) [Entitic vol] 90.5 fL 81-99 [facility] Hematocrit Auto (Bld) [Volum e fraction]Ordered By: Basilio Flores on 06-12-2022 Hematocrit (Bld) [Volume fraction] 41.0 % 37-47 [facility] Laboratory - Chemistry and C hemistry - challengeOrdered By: Basilio Flores on 06-12-2022 ALP [Catalytic activity/Vol] 88 U/L 45-117 [facility] ALT [Catalytic activity/Vol] 20 U/L 13-56 [facility] CO2 [Moles/Vol] 34.0 mmol/L 21.0-32.0 [facility] Globulin (S) [Mass/Vol] 3.7 g/dL 2.2-4.2 [facility] Urea nitrogen/Creatinine [Mass ratio] 15.1 mg/mg 10-20 [facility] Laboratory - Hematology and Cell countsOrdered By: Basilio Flores on 06-12-2022 Erythrocyte distribution width (RBC) [Entitic vol] 42.0 fL 35.1-43.9 [facility] Erythrocyte distribution width (RBC) [Ratio] 12.8 % 11.6-14.6 [facility] MCH (RBC) [Entitic mass] 29.1 pg 27.0-32.0 [facility] MCHC Auto (RBC) [Mass/Vol]Or dered By: Basilio Flores on 06-12-2022 MCHC (RBC) [Mass/Vol] 32.2 g/dL 32-36 [facility] No Panel InformationOrdered By: Basilio Flores on 06-12-2022 Estimated GFR (MDRD) Amer 82 mL/min >60 [facility] Comment on above: GFR Calc Estimated GFR (MDRD) Non-Af Amer 67 mL/min >60 [facility] Comment on above: Non- GFR Calc Vitamin D 25-Hydroxy 49.1 ng/mL [facility] Comment on above: Vitamin D 25(OH) Sta tus Range Deficiency <20 ng/mL (50nmol/L) Insufficiency 20 - 30 ng/mL (50 - 75 nmol/L) Sufficiency 30 - 100 ng/mL (75 - 250 nmol/L) Toxicity >100 ng/mL (>250 nmol/L) Platelets bldOrdered By: August Flores on 06-12-2022 Platelets (Bld) [#/Vol] 188 10*3/uL 150-450 [facility] Serum or plasma albumin serge urement (mass/volume)Ordered By: Basilio Flores on 06-12-2022 Albumin [Mass/Vol] 3.7 g/dL 3.2-5.0 [facility] Serum or plasma albumin/glob ulin mass ratioOrdered By: Basilio Flores on 06-12-2022 Albumin/Globulin [Mass ratio] 1.0 {ratio} 0.9-2.4 [facility] Serum or plasma calcium serge urement (mass/volume)Ordered By: Basilio Flores on 06-12-2022 Calcium [Mass/Vol] 9.5 mg/dL 8.5-10.1 [facility] Serum or plasma creatinine m easurement (mass/volume)Ordered By: Basilio Flores on 06-12-2022 Creatinine [Mass/Vol] 0.86 mg/dL 0.55-1.02 [facility] Comment on above: The validity of the calculated GFR & GFRAA in patients over 70 years has not been determined. Clinical correlation is essential. Serum or plasma urea nitroge n measurement (mass/volume)Ordered By: Basilio Flores on 06-12-2022 Urea nitrogen [Mass/Vol] 13 mg/dL 7-18 [facility] Thin prep Papanicolaou smear with manual screeningOrdered By: Basilio Flores on 06-12-2022 Thin prep Papanicolaou smear with manual screening 18 U/L 15-37 [facility] Thin prep Papanicolaou smear with manual screening 8 5-15 [facility] Whole blood hemoglobin A1c/t otal hemoglobin ratio (mass fraction)Ordered By: Basilio Flores on 06-12-2022 HbA1c (Bld) [Mass fraction] 9.2 % 3.8-5.6 [facility] Comment on above: Normal < 5.7 % Predi abetic 5.7 - 6.4 % Diabetic >or= 6.5 % Please note range changes. Basophil percentageOrdered B y: Donato Sepulveda on 04-17-2022 Chloride [Moles/Vol] 97 mmol/L 98-107 [facility] Glucose [Mass/Vol] 328 mg/dL 74-106 [facility] Comment on above: Glucose result great er than or equal to 200 mg/dLsuggests DIABETES MELLITUS per A.D.A. criteria. Potassium [Moles/Vol] 3.6 mmol/L 3.5-5.1 [facility] Sodium [Moles/Vol] 137 mmol/L 136-145 [facility] Laboratory - Chemistry and C hemistry - challengeOrdered By: Donato Sepulveda on 04-17-2022 CO2 [Moles/Vol] 36.0 mmol/L 21.0-32.0 [facility] Urea nitrogen/Creatinine [Mass ratio] 13.7 mg/mg 10-20 [facility] No Panel InformationOrdered By: Donato Sepulveda on 04-17-2022 Estimated GFR (MDRD) Amer 73 mL/min >60 [facility] Comment on above: GFR Calc Estimated GFR (MDRD) Non-Af Amer 60 mL/min >60 [facility] Comment on above: Non- GFR Calc Serum or plasma calcium serge urement (mass/volume)Ordered By: Donato Sepulveda on 04-17-2022 Calcium [Mass/Vol] 9.5 mg/dL 8.5-10.1 [facility] Serum or plasma creatinine m easurement (mass/volume)Ordered By: Donato Sepulveda on 04-17-2022 Creatinine [Mass/Vol] 0.95 mg/dL 0.55-1.02 [facility] Comment on above: The validity of the calculated GFR & GFRAA in patients over 70 years has not been determined. Clinical correlation is essential. Serum or plasma urea nitroge n measurement (mass/volume)Ordered By: Donato Seuplveda on 04-17-2022 Urea nitrogen [Mass/Vol] 13 mg/dL 7-18 [facility] Thin prep Papanicolaou smear with manual screeningOrdered By: Donato Sepulveda on 04-17-2022 Thin prep Papanicolaou smear with manual screening 4 5-15 [facility] Basophil percentageOrdered B y: Donato Sepulveda on 04-13-2022 Potassium [Moles/Vol] 3.2 mmol/L 3.5-5.1 [facility] Basophil percentageOrdered B y: Basilio Flores on 04-10-2022 Bilirubin [Mass/Vol] 0.50 mg/dL 0.20-1.00 [facility] Comment on above: For patients on eltr ombopag therapy, use of Dimension [place] TBIL is not recommended. Chloride [Moles/Vol] 97 mmol/L 98-107 [facility] Glucose [Mass/Vol] 366 mg/dL 74-106 [facility] Comment on above: Glucose result great er than or equal to 200 mg/dLsuggests DIABETES MELLITUS per A.D.A. criteria. Potassium [Moles/Vol] 3.1 mmol/L 3.5-5.1 [facility] Protein [Mass/Vol] 7.3 g/dL 6.4-8.2 [facility] Sodium [Moles/Vol] 136 mmol/L 136-145 [facility] WBC (Bld) [#/Vol] 6.4 10*3/uL 4.4-11.0 [facility] Blood erythrocytes count (nu mber/volume)Ordered By: Basilio Flores on 04-10-2022 RBC (Bld) [#/Vol] 4.33 10*6/uL 4.2-5.[address] [facility] Blood hemoglobin measurement (mass/volume)Ordered By: Basilio Flores on 04-10-2022 Hemoglobin (Bld) [Mass/Vol] 12.7 g/dL 12.0-15.0 [facility] Blood platelet mean volumeOr dered By: Basilio Flores on 04-10-2022 Platelet mean volume (Bld) [Entitic vol] 10.8 fL 6.2-12.0 [facility] Determination of erythrocyte mean corpuscular volume (MCV)Ordered By: Basilio Flores on 04-10-2022 MCV (RBC) [Entitic vol] 91.5 fL 81-99 [facility] Hematocrit Auto (Bld) [Volum e fraction]Ordered By: Basilio Flores on 04-10-2022 Hematocrit (Bld) [Volume fraction] 39.6 % 37-47 [facility] Laboratory - Chemistry and C hemistry - challengeOrdered By: Basilio Flores on 04-10-2022 ALP [Catalytic activity/Vol] 90 U/L 45-117 [facility] ALT [Catalytic activity/Vol] 24 U/L 13-56 [facility] CO2 [Moles/Vol] 37.0 mmol/L 21.0-32.0 [facility] Globulin (S) [Mass/Vol] 4.0 g/dL 2.2-4.2 [facility] Urea nitrogen/Creatinine [Mass ratio] 14.5 mg/mg 10-20 [facility] Laboratory - Hematology and Cell countsOrdered By: Basilio Flores on 04-10-2022 Erythrocyte distribution width (RBC) [Entitic vol] 42.4 fL 35.1-43.9 [facility] Erythrocyte distribution width (RBC) [Ratio] 12.6 % 11.6-14.6 [facility] MCH (RBC) [Entitic mass] 29.3 pg 27.0-32.0 [facility] MCHC Auto (RBC) [Mass/Vol]Or dered By: Basilio Flores on 04-10-2022 MCHC (RBC) [Mass/Vol] 32.1 g/dL 32-36 [facility] No Panel InformationOrdered By: Basilio Flores on 04-10-2022 Estimated GFR (MDRD) Amer 78 mL/min >60 [facility] Comment on above: GFR Calc Estimated GFR (MDRD) Non-Af Amer 64 mL/min >60 [facility] Comment on above: Non- GFR Calc Platelets bldOrdered By: August Flores on 04-10-2022 Platelets (Bld) [#/Vol] 216 10*3/uL 150-450 [facility] Serum or plasma albumin serge urement (mass/volume)Ordered By: Basilio Flores on 04-10-2022 Albumin [Mass/Vol] 3.3 g/dL 3.2-5.0 [facility] Serum or plasma albumin/glob ulin mass ratioOrdered By: Basilio Flores on 04-10-2022 Albumin/Globulin [Mass ratio] 0.8 {ratio} 0.9-2.4 [facility] Serum or plasma calcium serge urement (mass/volume)Ordered By: Basilio Flores on 04-10-2022 Calcium [Mass/Vol] 9.1 mg/dL 8.5-10.1 [facility] Serum or plasma creatinine m easurement (mass/volume)Ordered By: Basilio Flores on 04-10-2022 Creatinine [Mass/Vol] 0.90 mg/dL 0.55-1.02 [facility] Comment on above: The validity of the calculated GFR & GFRAA in patients over 70 years has not been determined. Clinical correlation is essential. Serum or plasma urea nitroge n measurement (mass/volume)Ordered By: Baislio Flores on 04-10-2022 Urea nitrogen [Mass/Vol] 13 mg/dL 7-18 [facility] Thin prep Papanicolaou smear with manual screeningOrdered By: Basilio Flores on 04-10-2022 Thin prep Papanicolaou smear with manual screening 22 U/L 15-37 [facility] Thin prep Papanicolaou smear with manual screening 2 5-15 [facility] No Panel InformationOrdered By: Basilio Flores on 03-06-2022 Vitamin D 25-Hydroxy 57.1 ng/mL [facility] Comment on above: Vitamin D 25(OH) Sta tus Range Deficiency <20 ng/mL (50nmol/L) Insufficiency 20 - 30 ng/mL (50 - 75 nmol/L) Sufficiency 30 - 100 ng/mL (75 - 250 nmol/L) Toxicity >100 ng/mL (>250 nmol/L) Whole blood hemoglobin A1c/t otal hemoglobin ratio (mass fraction)Ordered By: Basilio Flores on 03-06-2022 HbA1c (Bld) [Mass fraction] 7.4 % 3.8-5.6 [facility] Comment on above: Normal < 5.7 % Predi abetic 5.7 - 6.4 % Diabetic >or= 6.5 % Please note range changes. Basophil percentageon 2021 Bilirubin [Mass/Vol] 0.90 mg/dL 0.20-1.00 [facility] Work Phone: Comment on above: For patients on eltr ombopag therapy, use of Dimension [place] TBIL is not recommended. Chloride [Moles/Vol] 102 mmol/L 98-107 [facility] Work Phone: Glucose [Mass/Vol] 198 mg/dL 74-106 [facility] Work Phone: Comment on above: Fasting Glucose resu lt greater than or equal to 126 mg/dL suggests DIABETES MELLITUS per A.D.A. criteria. Potassium [Moles/Vol] 4.3 mmol/L 3.5-5.1 [facility] Work Phone: Protein [Mass/Vol] 7.3 g/dL 6.4-8.2 [facility] Work Phone: Sodium [Moles/Vol] 140 mmol/L 136-145 [facility] Work Phone: WBC (Bld) [#/Vol] 5.8 10*3/uL 4.4-11.0 [facility] Work Phone: Blood erythrocytes count (nu mber/volume)on 02-06-2022 RBC (Bld) [#/Vol] 4.46 10*6/uL 4.2-5.[address] [facility] Work Phone: Blood hemoglobin measurement (mass/volume)on 02-06-2022 Hemoglobin (Bld) [Mass/Vol] 13.1 g/dL 12.0-15.0 [facility] Work Phone: Blood platelet mean volumeon 02-06-2022 Platelet mean volume (Bld) [Entitic vol] 10.5 fL 6.2-12.0 [facility] Work Phone: Determination of erythrocyte mean corpuscular volume (MCV)on 02-06-2022 MCV (RBC) [Entitic vol] 93.3 fL 81-99 [facility] Work Phone: Hematocrit Auto (Bld) [Volum e fraction]on 02-06-2022 Hematocrit (Bld) [Volume fraction] 41.6 % 37-47 [facility] Work Phone: Laboratory - Chemistry and C hemistry - challengeon 02-06-2022 ALP [Catalytic activity/Vol] 96 U/L 45-117 [facility] Work Phone: ALT [Catalytic activity/Vol] 22 U/L 13-56 [facility] Work Phone: CO2 [Moles/Vol] 32.0 mmol/L 21.0-32.0 [facility] Work Phone: Globulin (S) [Mass/Vol] 3.7 g/dL 2.2-4.2 [facility] Work Phone: Urea nitrogen/Creatinine [Mass ratio] 20.2 mg/mg 10-20 [facility] Work Phone: Laboratory - Hematology and Cell countson 02-06-2022 Erythrocyte distribution width (RBC) [Entitic vol] 46.5 fL 35.1-43.9 [facility] Work Phone: Erythrocyte distribution width (RBC) [Ratio] 13.5 % 11.6-14.6 [facility] Work Phone: MCH (RBC) [Entitic mass] 29.4 pg 27.0-32.0 [facility] Work Phone: MCHC Auto (RBC) [Mass/Vol]on 02-06-2022 MCHC (RBC) [Mass/Vol] 31.5 g/dL 32-36 [facility] Work Phone: No Panel Informationon 02-06 Estimated GFR (MDRD) Amer 66 mL/min >60 [facility] Work Phone: Comment on above: GFR Calc Estimated GFR (MDRD) Non-Af Amer 54 mL/min >60 [facility] Work Phone: Comment on above: Non- GFR Calc Platelets bldon 10-04-2022 Platelets (Bld) [#/Vol] 176 10*3/uL 150-450 [facility] Work Phone: Serum or plasma albumin serge urement (mass/volume)on 02-06-2022 Albumin [Mass/Vol] 3.6 g/dL 3.2-5.0 [facility] Work Phone: Serum or plasma albumin/glob ulin mass ratioon 02-06-2022 Albumin/Globulin [Mass ratio] 1.0 {ratio} 0.9-2.4 [facility] Work Phone: Serum or plasma calcium serge urement (mass/volume)on 02-06-2022 Calcium [Mass/Vol] 9.5 mg/dL 8.5-10.1 [facility] Work Phone: Serum or plasma creatinine m easurement (mass/volume)on 02-06-2022 Creatinine [Mass/Vol] 1.04 mg/dL 0.55-1.02 [facility] Work Phone: Comment on above: The validity of the calculated GFR & GFRAA in patients over 70 years has not been determined. Clinical correlation is essential. Serum or plasma urea nitroge n measurement (mass/volume)on 02-06-2022 Urea nitrogen [Mass/Vol] 21 mg/dL 7-18 [facility] Work Phone: Thin prep Papanicolaou smear with manual screeningon 02-06-2022 Thin prep Papanicolaou smear with manual screening 20 U/L 15-37 [facility] Work Phone: Thin prep Papanicolaou smear with manual screening 6 5-15 [facility] Work Phone: Basophil percentageon 2021 Bilirubin [Mass/Vol] 0.50 mg/dL 0.20-1.00 [facility] Work Phone: Comment on above: For patients on eltr ombopag therapy, use of Dimension [place] TBIL is not recommended. Chloride [Moles/Vol] 106 mmol/L 98-107 [facility] Work Phone: Glucose [Mass/Vol] 149 mg/dL 74-[facility]: Comment on above: Fasting Glucose resu lt greater than or equal to 126 mg/dL suggests DIABETES MELLITUS per A.D.A. criteria. Potassium [Moles/Vol] 3.6 mmol/L 3.5-5.1 [facility] Work Phone: Protein [Mass/Vol] 6.7 g/dL 6.4-8.2 [facility] Work [facility]: Sodium [Moles/Vol] 142 mmol/L 136-145 [facility] Work Phone: WBC (Bld) [#/Vol] 6.0 10*3/uL 4.4-11.0 [facility] Work Phone: Blood erythrocytes count (nu mber/volume)on 12-05-2021 RBC (Bld) [#/Vol] 4.12 10*6/uL 4.2-5.4 [facility]: Blood hemoglobin measurement (mass/volume)on 12-05-2021 Hemoglobin (Bld) [Mass/Vol] 11.9 g/dL 12.0-15.0 [facility] Work Phone: Blood platelet mean volumeon 12-05-2021 Platelet mean volume (Bld) [Entitic vol] 10.9 fL 6.2-12.0 [facility] Work Phone: Determination of erythrocyte mean corpuscular volume (MCV)on 12-05-2021 MCV (RBC) [Entitic vol] 92.5 fL 81-99 [facility] Work Phone: Hematocrit Auto (Bld) [Volum e fraction]on 12-05-2021 Hematocrit (Bld) [Volume fraction] 38.1 % 37-47 [facility] Work Phone: Laboratory - Chemistry and C hemistry - challengeon 12-05-2021 ALP [Catalytic activity/Vol] 86 U/L 45-117 [facility] Work Phone: ALT [Catalytic activity/Vol] 17 U/L 13-56 [facility] Work Phone: CO2 [Moles/Vol] 34.0 mmol/L 21.0-32.0 [facility] Work Phone: Globulin (S) [Mass/Vol] 3.6 g/dL 2.2-4.2 [facility] Work Phone: Urea nitrogen/Creatinine [Mass ratio] 14.5 mg/mg 10-20 [facility] Work Phone: Laboratory - Hematology and Cell countson 12-05-2021 Erythrocyte distribution width (RBC) [Entitic vol] 45.8 fL 35.1-43.9 [facility] Work Phone: Erythrocyte distribution width (RBC) [Ratio] 13.4 % 11.6-14.6 [facility] Work Phone: MCH (RBC) [Entitic mass] 28.9 pg 27.0-32.0 [facility] Work Phone: MCHC Auto (RBC) [Mass/Vol]on 12-05-2021 MCHC (RBC) [Mass/Vol] 31.2 g/dL 32-36 [facility] Work Phone: No Panel Informationon 12-05 Estimated GFR (MDRD) Amer 78 mL/min >60 [facility] Work Phone: Comment on above: GFR Calc Estimated GFR (MDRD) Non-Af Amer 64 mL/min >60 [facility] Work Phone: Comment on above: Non- GFR Calc Vitamin D 25-Hydroxy 90.8 ng/mL [facility] Work Phone: Comment on above: Vitamin D 25(OH) Sta tus Range Deficiency <20 ng/mL (50nmol/L) Insufficiency 20 - 30 ng/mL (50 - 75 nmol/L) Sufficiency 30 - 100 ng/mL (75 - 250 nmol/L) Toxicity >100 ng/mL (>250 nmol/L) Platelets bldon 12-05-2021 Platelets (Bld) [#/Vol] 162 10*3/uL 150-450 [facility] Work Phone: Serum or plasma albumin serge urement (mass/volume)on 12-05-2021 Albumin [Mass/Vol] 3.1 g/dL 3.2-5.0 [facility] Work Phone: Serum or plasma albumin/glob ulin mass ratioon 12-05-2021 Albumin/Globulin [Mass ratio] 0.9 {ratio} 0.9-2.4 [facility] Work Phone: Serum or plasma calcium serge urement (mass/volume)on 12-05-2021 Calcium [Mass/Vol] 9.3 mg/dL 8.5-10.1 [facility] Work Phone: Serum or plasma creatinine m easurement (mass/volume)on 12-05-2021 Creatinine [Mass/Vol] 0.90 mg/dL 0.55-1.02 [facility] Work Phone: Comment on above: The validity of the calculated GFR & GFRAA in patients over 70 years has not been determined. Clinical correlation is essential. Serum or plasma urea nitroge n measurement (mass/volume)on 12-05-2021 Urea nitrogen [Mass/Vol] 13 mg/dL 7-18 [facility] Work Phone: Thin prep Papanicolaou smear with manual screeningon 12-05-2021 Thin prep Papanicolaou smear with manual screening 18 U/L 15-37 [facility] Work Phone: Thin prep Papanicolaou smear with manual screening 2 5-15 [facility] Work Phone: Whole blood hemoglobin A1c/t otal hemoglobin ratio (mass fraction)on 12-05-2021 HbA1c (Bld) [Mass fraction] 7.4 % 3.8-5.6 [facility] Work Phone: Comment on above: Normal < 5.7 % Predi abetic 5.7 - 6.4 % Diabetic >or= 6.5 % Please note range changes. Whole blood hemoglobin A1c/t otal hemoglobin ratio (mass fraction)on 11-14-2021 HbA1c (Bld) [Mass fraction] 8.5 % 3.8-5.6 [facility] Work Phone: Comment on above: Normal < 5.7 % Predi abetic 5.7 - 6.4 % Diabetic >or= 6.5 % Please note range changes. Whole blood hemoglobin A1c/t otal hemoglobin ratio (mass fraction)on 10-17-2021 HbA1c (Bld) [Mass fraction] 7.7 % 3.8-5.6 [facility] Work Phone: Comment on above: Normal < 5.7 % Predi abetic 5.7 - 6.4 % Diabetic >or= 6.5 % Please note range changes. Basophil percentageon 2021 Bilirubin [Mass/Vol] 0.40 mg/dL 0.20-1.00 [facility] Work Phone: Comment on above: For patients on eltr ombopag therapy, use of Dimension [place] TBIL is not recommended. Chloride [Moles/Vol] 105 mmol/L 98-107 [facility] Work Phone: Cholesterol [Mass/Vol] 130 mg/dL <200 [facility] Work Phone: Comment on above: <200 mg/dL Desirable 200-240 mg/dL Borderline >240 mg/dL High Risk Glucose [Mass/Vol] 127 mg/dL 74-106 [facility] Work Phone: Comment on above: Fasting Glucose resu lt greater than or equal to 126 mg/dL suggests DIABETES MELLITUS per A.D.A. criteria. Potassium [Moles/Vol] 3.7 mmol/L 3.5-5.1 [facility] Work Phone: Protein [Mass/Vol] 6.4 g/dL 6.4-8.2 [facility] Work Phone: Sodium [Moles/Vol] 145 mmol/L 136-145 [facility] Work Phone: Triglyceride [Mass/Vol] 77 mg/dL <199 [facility] [facility] Work Phone: Comment on above: The drugs N-Acetylcy steine and Metamizole may falsely depress this assay.Serum Triglycerides Reference Interval Normal <150 mg/dL Borderline high 150 - 199 mg/dL High 200 - 499 mg/dL Very High > or = 500 mg/dL WBC (Bld) [#/Vol] 5.7 10*3/uL 4.4-11.0 [facility] Work Phone: Blood erythrocytes count (nu mber/volume)on 10-05-2021 RBC (Bld) [#/Vol] 4.01 10*6/uL 4.2-5.[address] [facility] Work Phone: Blood hemoglobin measurement (mass/volume)on 10-05-2021 Hemoglobin (Bld) [Mass/Vol] 11.5 g/dL 12.0-15.0 [facility] Work Phone: Blood platelet mean volumeon 10-05-2021 Platelet mean volume (Bld) [Entitic vol] 11.3 fL 6.2-12.0 [facility] Work Phone: Determination of erythrocyte mean corpuscular volume (MCV)on 10-05-2021 MCV (RBC) [Entitic vol] 93.3 fL 81-99 [facility] Work Phone: Hematocrit Auto (Bld) [Volum e fraction]on 10-05-2021 Hematocrit (Bld) [Volume fraction] 37.4 % 37-47 [facility] Work Phone: Laboratory - Chemistry and C hemistry - challengeon 10-05-2021 ALP [Catalytic activity/Vol] 80 U/L 45-117 [facility] Work Phone: ALT [Catalytic activity/Vol] 16 U/L 13-56 [facility] Work Phone: CO2 [Moles/Vol] 29.0 mmol/L 21.0-32.0 [facility] Work Phone: Globulin (S) [Mass/Vol] 3.1 g/dL 2.2-4.2 [facility] Work Phone: Urea nitrogen/Creatinine [Mass ratio] 17.1 mg/mg 10-20 [facility] Work Phone: Laboratory - Hematology and Cell countson 10-05-2021 Erythrocyte distribution width (RBC) [Entitic vol] 44.9 fL 35.1-43.9 [facility] Work Phone: Erythrocyte distribution width (RBC) [Ratio] 13.2 % 11.6-14.6 [facility] Work Phone: MCH (RBC) [Entitic mass] 28.7 pg 27.0-32.0 [facility] Work Phone: MCHC Auto (RBC) [Mass/Vol]on 10-05-2021 MCHC (RBC) [Mass/Vol] 30.7 g/dL 32-36 [facility]: No Panel Informationon 10-05 Estimated GFR (MDRD) Amer 65 mL/min >60 [facility] Work Phone: Comment on above: GFR Calc Estimated GFR (MDRD) Non-Af Amer 54 mL/min >60 [facility] Work Phone: Comment on above: Non- GFR Calc Platelets bldon 10-05-2021 Platelets (Bld) [#/Vol] 164 10*3/uL 150-450 [facility] Work Phone: Serum or plasma albumin serge urement (mass/volume)on 10-05-2021 Albumin [Mass/Vol] 3.3 g/dL 3.2-5.0 [facility] Work Phone: Serum or plasma albumin/glob ulin mass ratioon 10-05-2021 Albumin/Globulin [Mass ratio] 1.1 {ratio} 0.9-2.4 [facility] Work Phone: Serum or plasma calcium serge urement (mass/volume)on 10-05-2021 Calcium [Mass/Vol] 8.8 mg/dL 8.5-10.1 [facility] Work Phone: Serum or plasma cholesterol in HDL measurement (mass/volume)on 10-05-2021 Cholesterol in HDL [Mass/Vol] 47 mg/dL >40 [facility] Work Phone: Comment on above: The drugs N-Acetylcy steine and Metamizole may falsely depress this assay. Reference Range HDL <40 mg/dL Low HDL Cholesterol HDL >or= 60 mg/dL High HDL Cholesterol Serum or plasma cholesterol in VLDL measurement (mass/volume)on 10-05-2021 Cholesterol in VLDL [Mass/Vol] 15 mg/dL 5-40 [facility] Work Phone: Serum or plasma creatinine m easurement (mass/volume)on 10-05-2021 Creatinine [Mass/Vol] 1.05 mg/dL 0.55-1.02 [facility] Work Phone: Comment on above: The validity of the calculated GFR & GFRAA in patients over 70 years has not been determined. Clinical correlation is essential. Serum or plasma low density lipoprotein (LDL) cholesterol measurement (mass/volume)on 10-05-2021 Cholesterol in LDL [Mass/Vol] 68 mg/dL 0-130 [facility] Work Phone: Serum or plasma urea nitroge n measurement (mass/volume)on 10-05-2021 Urea nitrogen [Mass/Vol] 18 mg/dL 7-18 [facility] Work Phone: Thin prep Papanicolaou smear with manual screeningon 10-05-2021 Thin prep Papanicolaou smear with manual screening 18 U/L 15-37 [facility] Work Phone: Thin prep Papanicolaou smear with manual screening 11 5-15 [facility] Work Phone: No Panel Informationon 09-05 Vitamin D 25-Hydroxy 44.4 ng/mL [facility] Work Phone: Comment on above: Vitamin D 25(OH) Sta tus Range Deficiency <20 ng/mL (50nmol/L) Insufficiency 20 - 30 ng/mL (50 - 75 nmol/L) Sufficiency 30 - 100 ng/mL (75 - 250 nmol/L) Toxicity >100 ng/mL (>250 nmol/L) Whole blood hemoglobin A1c/t otal hemoglobin ratio (mass fraction)on 09-05-2021 HbA1c (Bld) [Mass fraction] 8.3 % 3.8-5.6 [facility] Work Phone: Comment on above: Normal < 5.7 % Predi abetic 5.7 - 6.4 % Diabetic >or= 6.5 % Please note range changes. Basophil percentageon 2021 Bilirubin [Mass/Vol] 0.40 mg/dL 0.20-1.00 [facility] Work Phone: Comment on above: For patients on eltr ombopag therapy, use of Dimension [place] TBIL is not recommended. Chloride [Moles/Vol] 102 mmol/L 98-107 [facility] Work Phone: Glucose [Mass/Vol] 358 mg/dL 74-106 [facility] Work Phone: Comment on above: Glucose result great er than or equal to 200 mg/dLsuggests DIABETES MELLITUS per A.D.A. criteria. Potassium [Moles/Vol] 3.3 mmol/L 3.5-5.1 [facility] Work Phone: Protein [Mass/Vol] 6.8 g/dL 6.4-8.2 [facility] Work Phone: Sodium [Moles/Vol] 139 mmol/L 136-145 [facility] Work Phone: WBC (Bld) [#/Vol] 5.6 10*3/uL 4.4-11.0 [facility] Work Phone: Blood erythrocytes count (nu mber/volume)on 08-08-2021 RBC (Bld) [#/Vol] 3.99 10*6/uL 4.2-5.4 [facility]: Blood hemoglobin measurement (mass/volume)on 08-08-2021 Hemoglobin (Bld) [Mass/Vol] 11.5 g/dL 12.0-15.0 [facility] Work Phone: Blood platelet mean volumeon 08-08-2021 Platelet mean volume (Bld) [Entitic vol] 11.0 fL 6.2-12.0 [facility] Work Phone: Determination of erythrocyte mean corpuscular volume (MCV)on 08-08-2021 MCV (RBC) [Entitic vol] 91.7 fL 81-99 [facility] Work Phone: Hematocrit Auto (Bld) [Volum e fraction]on 08-08-2021 Hematocrit (Bld) [Volume fraction] 36.6 % 37-47 [facility] Work Phone: Laboratory - Chemistry and C hemistry - challengeon 08-08-2021 ALP [Catalytic activity/Vol] 85 U/L 45-117 [facility] Work Phone: ALT [Catalytic activity/Vol] 17 U/L 13-56 [facility] Work Phone: CO2 [Moles/Vol] 33.0 mmol/L 21.0-32.0 [facility] Work Phone: Globulin (S) [Mass/Vol] 3.8 g/dL 2.2-4.2 [facility] Work Phone: Urea nitrogen/Creatinine [Mass ratio] 12.7 mg/mg 10-20 [facility] Work Phone: Laboratory - Hematology and Cell countson 08-08-2021 Erythrocyte distribution width (RBC) [Entitic vol] 43.0 fL 35.1-43.9 [facility] Work Phone: Erythrocyte distribution width (RBC) [Ratio] 12.7 % 11.6-14.6 [facility] Work Phone: MCH (RBC) [Entitic mass] 28.8 pg 27.0-32.0 [facility] Work Phone: MCHC Auto (RBC) [Mass/Vol]on 08-08-2021 MCHC (RBC) [Mass/Vol] 31.4 g/dL 32-36 [facility] Work Phone: No Panel Informationon 08-08 Estimated GFR (MDRD) Amer 67 mL/min >60 [facility] Work Phone: Comment on above: GFR Calc Estimated GFR (MDRD) Non-Af Amer 56 mL/min >60 [facility] Work Phone: Comment on above: Non- GFR Calc Platelets bldon 08-08-2021 Platelets (Bld) [#/Vol] 155 10*3/uL 150-450 [facility] Work Phone: Serum or plasma albumin serge urement (mass/volume)on 08-08-2021 Albumin [Mass/Vol] 3.0 g/dL 3.2-5.0 [facility] Work Phone: Serum or plasma albumin/glob ulin mass ratioon 08-08-2021 Albumin/Globulin [Mass ratio] 0.8 {ratio} 0.9-2.4 [facility] Work Phone: Serum or plasma calcium serge urement (mass/volume)on 08-08-2021 Calcium [Mass/Vol] 9.3 mg/dL 8.5-10.1 [facility] Work Phone: Serum or plasma creatinine m easurement (mass/volume)on 08-08-2021 Creatinine [Mass/Vol] 1.02 mg/dL 0.55-1.02 [facility] Work Phone: Comment on above: The validity of the calculated GFR & GFRAA in patients over 70 years has not been determined. Clinical correlation is essential. Serum or plasma urea nitroge n measurement (mass/volume)on 08-08-2021 Urea nitrogen [Mass/Vol] 13 mg/dL 7-18 [facility] Work Phone: Thin prep Papanicolaou smear with manual screeningon 08-08-2021 Thin prep Papanicolaou smear with manual screening 15 U/L 15-37 [facility] Work Phone: Thin prep Papanicolaou smear with manual screening 4 5-15 [facility] Work Phone: Basophil percentageon 2021 Basophil percentage 3.6 mg/dL 2.5-4.9 [facility]: Chloride [Moles/Vol] 99 mmol/L 98-107 [facility] Work Phone: Glucose [Mass/Vol] 311 mg/dL 74-106 [facility] Work Phone: Comment on above: Glucose result great er than or equal to 200 mg/dLsuggests DIABETES MELLITUS per A.D.A. criteria. Potassium [Moles/Vol] 3.7 mmol/L 3.5-5.1 [facility] Work Phone: Sodium [Moles/Vol] 139 mmol/L 136-145 [facility] Work Phone: WBC (Bld) [#/Vol] 6.1 10*3/uL 4.4-11.0 [facility] Work Phone: Blood erythrocytes count (nu mber/volume)on 07-12-2021 RBC (Bld) [#/Vol] 4.40 10*6/uL 4.2-5.[address] [facility] Work Phone: Blood hemoglobin measurement (mass/volume)on 07-12-2021 Hemoglobin (Bld) [Mass/Vol] 12.5 g/dL 12.0-15.0 [facility] Work Phone: Blood platelet mean volumeon 07-12-2021 Platelet mean volume (Bld) [Entitic vol] 11.0 fL 6.2-12.0 [facility] Work Phone: Determination of erythrocyte mean corpuscular volume (MCV)on 07-12-2021 MCV (RBC) [Entitic vol] 90.7 fL 81-99 [facility] Work Phone: Hematocrit Auto (Bld) [Volum e fraction]on 07-12-2021 Hematocrit (Bld) [Volume fraction] 39.9 % 37-47 [facility] Work Phone: Laboratory - Chemistry and C hemistry - challengeon 07-12-2021 CO2 [Moles/Vol] 34.0 mmol/L 21.0-32.0 [facility] Work Phone: Urea nitrogen/Creatinine [Mass ratio] 14.2 mg/mg 10-20 [facility] Work Phone: Laboratory - Hematology and Cell countson 07-12-2021 Erythrocyte distribution width (RBC) [Entitic vol] 42.3 fL 35.1-43.9 [facility] Work Phone: Erythrocyte distribution width (RBC) [Ratio] 12.8 % 11.6-14.6 [facility] Work Phone: MCH (RBC) [Entitic mass] 28.4 pg 27.0-32.0 [facility] Work Phone: MCHC Auto (RBC) [Mass/Vol]on 07-12-2021 MCHC (RBC) [Mass/Vol] 31.3 g/dL 32-36 [facility] Work Phone: No Panel Informationon 07-12 Estimated GFR (MDRD) Amer 64 mL/min >60 [facility] Work Phone: Comment on above: GFR Calc Estimated GFR (MDRD) Non-Af Amer 53 mL/min >60 [facility] Work Phone: Comment on above: Non- GFR Calc Parathyroid Hormone (Intact) 38.0 pg/mL 18.4-80.1 [facility] Work Phone: Vitamin D 25-Hydroxy 10.0 ng/mL [facility] Work Phone: Comment on above: Vitamin D 25(OH) Sta tus Range Deficiency <20 ng/mL (50nmol/L) Insufficiency 20 - 30 ng/mL (50 - 75 nmol/L) Sufficiency 30 - 100 ng/mL (75 - 250 nmol/L) Toxicity >100 ng/mL (>250 nmol/L) Platelets bldon 07-12-2021 Platelets (Bld) [#/Vol] 188 10*3/uL 150-450 [facility] Work Phone: Serum or plasma albumin serge urement (mass/volume)on 07-12-2021 Albumin [Mass/Vol] 3.2 g/dL 3.2-5.0 [facility] Work Phone: Serum or plasma calcium serge urement (mass/volume)on 07-12-2021 Calcium [Mass/Vol] 9.8 mg/dL 8.5-10.1 [facility] Work Phone: Serum or plasma creatinine m easurement (mass/volume)on 07-12-2021 Creatinine [Mass/Vol] 1.06 mg/dL 0.55-1.02 [facility] Work Phone: Comment on above: The validity of the calculated GFR & GFRAA in patients over 70 years has not been determined. Clinical correlation is essential. Serum or plasma urea nitroge n measurement (mass/volume)on 07-12-2021 Urea nitrogen [Mass/Vol] 15 mg/dL 7-18 [facility] Work Phone: Clinical Summary: HMSPatient IDon 03-16-2019 OOP [facility] Work Phone: Office Visit: New - 1st visi t with practice, Rm: PT2on 03-16-2019 NEGATED: Highlighted rowMRI (magnetic resonance imaging) history of the cervical spine on 11/24/2018 at [facility] Work Phone: NEGATED: Highlighted rowTobacco smoking status NHIS Tobacco smoking status NHIS [facility] Work Phone: Vital Signs Date Time Vital Sign Value Performing Clinician Facility 02-19-2025 09:44-0400 Body height 162.[address] Donato Sepulveda MD Work Phone: [facility] 10-20-2024 18:22-0400 Diastolic blood pressure 78 mm[Hg] Dr. Basilio Flores MD Work Phone: 2(709)180-801215 [place] [address] 10-20-2024 18:22-0400 Heart rate 72 /min Dr. Basilio Flores MD Work Phone: 8(740)814-218515 [place] [address] 10-20-2024 18:22-0400 Respiratory rate 18 /min Dr. Basilio Flores MD Work Phone: 3(964)084-281515 [place] [address] 10-20-2024 18:22-0400 SaO2% (BldA) [Mass fraction] 94 % Dr. Basilio Flores MD Work Phone: 7(089)043-725415 [place] [address] 10-20-2024 18:22-0400 Systolic blood pressure 164 mm[Hg] Dr. Basilio Flores MD Work Phone: 4(541)211-244815 [place] [address] 10-20-2024 12:21-0400 Body temperature 97.9 [degF] Dr. Basilio Flores MD Work Phone: 0(837)309-587915 [place] [address] 10-20-2024 03:45-0400 Body mass index (BMI) [Ratio] 19.7 kg/m2 Dr. Basilio Flores MD Work Phone: 3(509)481-804815 [place] [address] 10-20-2024 03:45-0400 Body weight 52.[address] Basilio Flores MD Work Phone: 8(480)387-289515 [place] [address] 10-19-2024 10:15-0400 Body height 162.[address] Basilio Flores MD Work Phone: 9(820)243-308115 [place] [address] 10-18-2024 21:51-0400 Body temperature 97.8 [degF] Dr. Basilio Flores MD Work Phone: 0(931)961-108415 [place] [address] 10-18-2024 21:51-0400 Diastolic blood pressure 75 mm[Hg] Dr. Basilio Flores MD Work Phone: 6(320)087-433315 [place] [address] 10-18-2024 21:51-0400 Heart rate 83 /min Dr. Basilio Flores MD Work Phone: 3(677)862-410915 [place] [address] 10-18-2024 21:51-0400 Respiratory rate 16 /min Dr. Basilio Flores MD Work Phone: 6(745)779-876315 [place] [address] 10-18-2024 21:51-0400 SaO2% (BldA) [Mass fraction] 94 % Dr. Basilio Flores MD Work Phone: 8(880)823-647515 [place] [address] 10-18-2024 21:51-0400 Systolic blood pressure 169 mm[Hg] Dr. Basilio Flores MD Work Phone: 8(424)513-090215 [place] [address] 10-18-2024 16:46-0400 Body height 157.[address] Basilio Flores MD Work Phone: 7(729)112-534815 [place] [address] 10-18-2024 16:46-0400 Body mass index (BMI) [Ratio] 22.6 kg/m2 Dr. Basilio Flores MD Work Phone: 5(873)091-452915 [place] [address] 10-18-2024 16:46-0400 Body weight 56.[address] Basilio Flores MD Work Phone: 6(216)860-215315 [place] [address] 08-24-2024 09:43-0400 Body temperature 98.9 [degF] Dr. Basilio Flores MD Work Phone: 6(878)064-285215 [place] [address] 08-24-2024 09:43-0400 Diastolic blood pressure 69 mm[Hg] Dr. Basilio Flores MD Work Phone: 6(580)943-215115 [place] [address] 08-24-2024 09:43-0400 Heart rate 72 /min Dr. Basilio Flores MD Work Phone: 2(070)014-356615 [place] [address] 08-24-2024 09:43-0400 Respiratory rate 16 /min Dr. Basilio Flores MD Work Phone: 7(673)609-972215 [place] [address] 08-24-2024 09:43-0400 SaO2% (BldA) [Mass fraction] 98 % Dr. Basilio Flores MD Work Phone: 7(105)433-774115 [place] [address] 08-24-2024 09:43-0400 Systolic blood pressure 149 mm[Hg] Dr. Basilio Flores MD Work Phone: 7(064)452-953115 [place] [address] 08-24-2024 08:47-0400 Body height 157.[address] Basilio Flores MD Work Phone: 4(635)869-252115 [place] [address] 08-24-2024 08:47-0400 Body mass index (BMI) [Ratio] 22.1 kg/m2 Dr. Basilio Flores MD Work Phone: 8(733)142-738715 [place] [address] 08-24-2024 08:47-0400 Body weight [address] Basilio Flores MD Work Phone: 0(962)269-694815 [place] [address] 06-08-2023 09:40-0500 Diastolic blood pressure 77 mm[Hg] Dr. Basilio Flores Work Phone: 0(017)367-761615 [place] [address] 06-08-2023 09:40-0500 Heart rate 82 /min Dr. Basilio Flores Work Phone: 4(877)034-707915 [place] [address] 06-08-2023 09:40-0500 Respiratory rate 16 /min Dr. Basilio Floers Work Phone: 6(984)117-094015 [place] [address] 06-08-2023 09:40-0500 SaO2% (BldA) [Mass fraction] 98 % Dr. Basilio Flores Work Phone: 1(360)994-580415 [place] [address] 06-08-2023 09:40-0500 Systolic blood pressure 135 mm[Hg] Dr. Basilio Flores Work Phone: 9(436)898-427915 [place] [address] 06-08-2023 08:04-0500 Body height 157.[address] Basilio Flores Work Phone: 2(356)305-377015 [place] [address] 06-08-2023 08:04-0500 Body mass index (BMI) [Ratio] 25.7 kg/m2 Dr. Basilio Flores Work Phone: 2(277)340-929315 [place] [address] 06-08-2023 08:04-0500 Body temperature 97.9 [degF] Dr. Basilio Flores Work Phone: 8(375)424-076415 [place] [address] 06-08-2023 08:04-0500 Body weight 63.[address] Basilio Flores Work Phone: 2(975)203-722615 [place] [address] 06-05-2023 08:33-0500 Diastolic blood pressure 67 mm[Hg] Dr. Basilio Flores Work Phone: 6(698)532-526115 [place] [address] 06-05-2023 08:33-0500 Heart rate 81 /min Dr. Basilio Flores Work Phone: 4(798)164-311215 [place] [address] 06-05-2023 08:33-0500 Respiratory rate 16 /min Dr. Basilio Flores Work Phone: 3(324)235-219815 [place] [address] 06-05-2023 08:33-0500 SaO2% (BldA) [Mass fraction] 93 % Dr. Basilio Flores Work Phone: 5(426)522-053515 [place] [address] 06-05-2023 08:33-0500 Systolic blood pressure 142 mm[Hg] Dr. Basilio Flores Work Phone: 9(047)023-232215 [place] [address] 06-05-2023 03:42-0500 Body height 162.[address] Basilio Flores Work Phone: 8(099)798-311215 [place] [address] 06-05-2023 03:42-0500 Body mass index (BMI) [Ratio] 23.9 kg/m2 Dr. Basilio Flores Work Phone: 8(402)242-233015 [place] [address] 06-05-2023 03:42-0500 Body temperature 97.6 [degF] Dr. Basilio Flores Work Phone: 3(576)722-786715 [place] [address] 06-05-2023 03:42-0500 Body weight 63.[address] Basilio Flores Work Phone: 3(054)023-706915 [place] [address] NEGATED: Highlighted [id number] 14:06-0500 BMI (Body Mass Index) 44.85 kg/m2 Arcenio Moreira AT [facility] Work Phone: NEGATED: Highlighted [id number] 14:06-0500 Body weight 102.06 kg Arcenio Moreira AT [facility] Work Phone: NEGATED: Highlighted [id number] 14:06-0500 Body weight 102 kg Arcenio Moreira AT [facility] Work Phone: NEGATED: Highlighted [id number] 14:06-0500 BP Diastolic 68 mm[Hg] Arcenio Moreira AT [facility] Work Phone: NEGATED: Highlighted [id number] 14:06-0500 BP Systolic 124 mm[Hg] Arcenio Moreira AT [facility] Work Phone: NEGATED: Highlighted [id number] 14:06-0500 Height 151.13 cm Arcenio Moreira AT [facility] Work Phone: NEGATED: Highlighted [id number] 14:06-0500 Height 151 cm Arcenio Moreira AT [facility] Work Phone: NEGATED: Highlighted [id number] 14:06-0500 Pulse (Heart Rate) 101 /min Arcenio Moreira AT [facility] Work Phone: Encounters Encounter Date Encounter Type Care Provider Facility Start: 03-09-2025 ambulatory Donato COLVIN Fa cility:[facility] Start: 03-02-2025 End: 03-02-2025 ambulatory Debora Schneider NP Facility:[facility] [place] Start: 02-17-2025 ambulatory Donato COLVIN Fa cility:[facility] Start: 02-17-2025 Registered Referred Donato Sepulveda MD [facility] Start: 02-09-2025 ambulatory Donato COLVIN Fa cility:[facility] Start: 02-09-2025 Registered Referred Donato Sepulveda MD -[facility] Start: 02-08-2025 End: 02-08-2025 ambulatory Debora Schneider NP Facility:[facility] [place] Start: 01-26-2025 End: 01-26-[address] Donato Sepulveda MD Work Phone: [facility] Start: 01-26-2025 End: 01-26-2025 Patient encounter procedure Debora Schneider SENIOR 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- [facility] Work Phone: Start: 01-12-2025 End: 01-12-[address] Donato Sepulveda MD Work Phone: [facility] Start: 01-12-2025 End: 01-12-[address] Donato Sepulveda MD -[facility] Work Phone: Start: 12-30-2024 ambulatory Donato Sepulveda OLS Fa cility:[facility] Start: 12-30-2024 Registered Referred Donato Sepulveda MD [facility] Start: 12-29-2024 End: 12-29-[address] Donato Sepulveda MD Work Phone: [facility] Start: 12-29-2024 End: 12-29-2024 Departed Referred Donato Sepulveda MD [facility] Start: 12-29-2024 Registered Referred Donato Sepulveda MD [facility] Start: 12-29-2024 End: 12-29-2024 ambulatory Efbalaji Sepulveda Facility:[facility] Start: 12-08-2024 Registered Referred Donato Sepulveda MD [facility] Start: 12-08-2024 End: 12-08-2024 ambulatory Efstuenterprisechar Sepulveda Facility:[facility] Start: 12-04-2024 End: 12-04-[address] 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 Donato Sepulveda MD Work Phone: [facility] Start: 11-17-2024 End: 11-17-2024 Departed Referred Donato Sepulveda MD [facility] Start: 11-17-2024 Registered Referred Donato Sepulveda MD [facility] Start: 11-17-2024 End: 11-17-2024 ambulatory Donato Sepulveda Facility:[facility] Start: 11-10-2024 End: 11-10-[address] Armando Rich MD Work Phone: [facility] Start: 11-10-2024 End: 11-10-[address] Donato Sepulveda MD -[facility] Work Phone: Start: 10-21-2024 End: 10-21-[address] Donato Sepulveda MD Work Phone: [facility] Start: 10-21-2024 End: 10-21-2024 Patient encounter procedure Debora Sanjayangelic SENIOR 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-C -[facility] Work Phone: Start: 10-20-2024 Non-patient / Non-visit Dr. Yadi Lam MD -[facility] Work Phone: Start: 10-19-2024 Non-patient / Non-visit Dr. Yadi Lam MD -[facility] Work Phone: Start: 10-18-2024 ambulatory Anali Coello Facility:[facility] Start: 10-18-2024 End: 10-20-2024 Evaluation and management of inpatient Dr. Anali Coello DO -Progressive Care Unit Work Phone: Start: 10-06-2024 ambulatory Donato Rodrigues cility:[facility] Start: 10-06-2024 Registered Referred Donato Sepulveda MD -[facility] Start: 09-15-2024 End: 09-15-[address] Donato Sepulveda MD Work Phone: [facility] Start: 09-15-2024 End: 09-15-[address] Donato Sepulveda MD -[facility] Work Phone: Start: 09-08-2024 End: 09-08-[address] Basilio Flores MD Work Phone: [facility] Work Phone: Start: 09-08-2024 End: 09-08-2024 [facility] Start: 09-08-2024 [facility] Start: 09-08-2024 End: 09-08-2024 ambulatory Donato COLVIN Facility:[facility] Start: 08-25-2024 End: 08-25-[address] Basilio Flores MD Work Phone: [facility] Work Phone: Start: 08-25-2024 End: 08-25-2024 [facility] Start: 08-24-2024 End: 08-24-2024 Admission to same day surgery center Dr. Armando Rich MD -[facility] Start: 08-24-2024 End: 08-25-[address] Basilio Flores MD Work Phone: [facility] Work Phone: Start: 08-17-2024 End: 08-17-2024 ambulatory Debora Schneider NP Facility:[facility] [place] Start: 08-17-2024 End: 08-17-2024 Patient encounter procedure Debora Schneider SENIOR 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- -[facility] Work Phone: Start: 07-15-2024 End: 07-15-[address] Basilio Flores MD Work Phone: [facility] Work Phone: Start: 07-15-2024 End: 07-15-2024 [facility] Start: 07-14-2024 End: 07-14-[address] Donato Sepulveda MD -[facility] Work Phone: Start: 07-14-2024 End: 07-15-[address] Basilio Flores MD Work Phone: [facility] Work Phone: Start: 07-14-2024 End: 07-14-2024 [facility] Start: 07-14-2024 [facility] Start: 07-14-2024 End: 07-14-2024 ambulatory Basilio Flores Facility:[facility] Start: 06-26-2024 End: 06-26-2024 ambulatory Basilio Flores Facility:[facility] Start: 06-26-2024 End: 06-26-2024 Patient encounter procedure Debora DOW -[facility] Work Phone: Start: 06-15-2024 ambulatory Basilio Flores Facility: [facility] Start: 06-15-2024 [facility] Start: 06-09-2024 ambulatory Basilio Flores Facility: [facility] Start: 06-09-2024 [facility] Start: 06-02-2024 End: 06-02-2024 [facility] Start: 06-01-2024 End: 06-02-2024 ambulatory Basilio Flores Facility:[facility] Start: 06-01-2024 End: 06-01-2024 [facility] Start: 05-19-2024 End: 05-19-2024 ambulatory Basilio Flores Facility:[facility] Start: 05-19-2024 End: 05-19-[address] [facility] Start: 04-21-2024 ambulatory Basilio Flores Facility: [facility] Start: 04-21-2024 [facility] Start: 04-07-2024 End: 04-07-2024 ambulatory Basilio Flores Facility:[facility] Start: 04-07-2024 End: 04-07-2024 ambulatory Basilio Flores Facility:[facility] Start: 08-06-2023 End: 08-06-[address] Basilio Flores Work Phone: [facility] Work Phone: Start: 08-06-2023 End: 08-06-[address] Basilio Flores Work Phone: [facility] Start: 06-11-2023 End: 06-11-[address] Basilio Flores Work Phone: [facility] Work Phone: Start: 06-11-2023 End: 06-11-[address] aBsilio Flores Work Phone: [facility] Start: 06-08-2023 End: 06-08-2023 Emergency department patient visit Dr. Basilio Flores Work Phone: [facility] Work Phone: Start: 06-05-2023 End: 06-05-[address] Basilio Flores Work Phone: [facility] Work Phone: Start: 06-05-2023 End: 06-05-2023 Emergency department patient visit Dr. Basilio Flores Work Phone: [facility] Work Phone: Start: 05-28-2023 End: 05-28-[address] Basilio Flores Work Phone: [facility] Work Phone: Start: 05-15-2023 End: 05-15-[address] Basilio Flores Work Phone: [facility] Work Phone: Start: 04-24-2023 End: 04-24-[address] Basilio Flores Work Phone: [facility] Work Phone: Start: 04-23-2023 End: 04-23-[address] Basilio Flores Work Phone: [facility] Work Phone: Start: 04-23-2023 End: 04-23-[address] Basilio Flores Work Phone: [facility] Start: 04-23-[address] Basilio avendano Work Phone: [facility] Start: 04-19-2023 End: 04-19-[address] Basilio Flores Work Phone: [facility] Work Phone: Start: 04-19-2023 End: 04-19-[address] Basilio Flores Work Phone: [facility] Start: 04-19-[address] Basilio avendano Work Phone: [facility] Start: 04-09-2023 End: 04-09-[address] Basilio Flores Work Phone: [facility] Work Phone: Start: 04-09-2023 End: 04-09-[address] Basilio Flores Work Phone: [facility] Start: 03-26-2023 End: 03-26-[address] Basilio Flores Work Phone: [facility] Work Phone: Start: 03-13-2023 End: 03-13-[address] Basilio Flores Work Phone: [facility] Work Phone: Start: 03-12-2023 End: 03-12-[address] Basilio Flores Work Phone: [facility] Start: 03-07-2023 End: 03-07-[address] Basilio Flores Work Phone: [facility] Work Phone: Start: 02-05-2023 End: 02-05-[address] Basilio Flores Work Phone: [facility] Start: 02-04-2023 End: 02-04-[address] Basilio Flores Work Phone: [facility] Work Phone: Start: 01-30-2023 End: 01-30-[address] Basilio Flores Work Phone: [facility] Work Phone: Start: 01-22-2023 End: 01-22-[address] Basilio Flores Work Phone: [facility] Work Phone: Start: 01-17-2023 End: 01-17-[address] Basilio Flores Work Phone: [facility] Work Phone: Start: 01-01-2023 End: 01-01-[address] Basilio Flores Work Phone: [facility] Work Phone: Start: 12-07-2022 End: 12-07-[address] Basilio Flores Work Phone: [facility] Work Phone: Start: 12-07-2022 End: 12-07-[address] Basilio Flores Work Phone: [facility] Start: 12-04-2022 End: 12-04-[address] Basilio Flores Work Phone: [facility] Work Phone: Start: 12-04-2022 End: 12-04-[address] Basilio Flores Work Phone: [facility] Start: 12-04-[address] Basilio avendano Work Phone: [facility] Start: 11-21-2022 End: 11-21-[address] Basilio Flores Work Phone: [facility] Work Phone: Start: 11-21-2022 End: 11-21-[address] Basilio Flores Work Phone: [facility] Start: 11-21-[address] Basilio avendano Work Phone: [facility] Start: 11-20-2022 End: 11-20-[address] Basilio Flores Work Phone: [facility] Work Phone: Start: 10-31-2022 End: 10-31-[address] Basilio Flores Work Phone: [facility] Work Phone: Start: 10-09-2022 End: 10-09-[address] Basilio Flores Work Phone: [facility] Work Phone: Start: 10-09-2022 End: 10-09-[address] Basilio Flores Work Phone: [facility] Start: 10-09-[address] Basilio avendano Work Phone: [facility] Start: 10-05-2022 End: 10-05-[address] Basilio Flores Work Phone: [facility] Work Phone: Start: 10-05-2022 End: 10-05-[address] Basilio Flores Work Phone: [facility] Start: 10-05-[address] Basilio avendano Work Phone: [facility] Start: 10-04-2022 End: 10-04-[address] Basilio Flores Work Phone: [facility] Start: 10-04-[address] Basilio avendano Work Phone: [facility] Start: 09-25-2022 End: 09-25-[address] Basilio Flores Work Phone: [facility] Work Phone: Start: 09-04-2022 End: 09-04-[address] Basilio Flores Work Phone: [facility] Work Phone: Start: 09-04-2022 End: 09-04-[address] Basilio Flores Work Phone: [facility] Start: 09-03-2022 End: 09-03-[address] Basilio Flores Work Phone: [facility] Work Phone: Start: 08-07-2022 End: 08-07-[address] Basilio Flores Work Phone: [facility] Work Phone: Start: 08-07-2022 End: 08-07-[address] Basilio Flores Work Phone: [facility] Start: 08-02-2022 End: 08-02-[address] Basilio Flores Work Phone: [facility] Start: 07-24-2022 End: 07-24-[address] Basilio Flores Work Phone: [facility] Start: 07-21-2022 End: 07-21-[address] Basilio Flores Work Phone: [phone] [place] [address] Start: 07-13-2022 End: 07-13-[address] Basilio Flores Work Phone: [phone] [place] [address] Start: 07-02-2022 End: 07-02-[address] Basilio Flores Work Phone: [phone] [place] [address] Start: 06-15-2022 End: 06-15-[address] Basilio Flores Work Phone: [phone] [place] [address] Start: 06-12-2022 End: 06-12-[address] Basilio Flores Work Phone: [phone] [place] [address] Work Phone: Start: 06-12-2022 End: 06-12-[address] Baislio Flores Work Phone: [phone] [place] [address] Start: 05-29-2022 End: 05-29-[address] Basilio Flores Work Phone: [phone] [place] [address] Start: 04-17-2022 End: 04-17-[address] Basilio Flores Work Phone: [phone] [place] [address] Start: 04-17-[address] Basilio avendano Work Phone: [phone] [place] [address] Start: 04-13-2022 End: 04-13-[address] Basilio Flores Work Phone: [phone] [place] [address] Start: 04-13-[address] Basilio avendano Work Phone: [phone] [place] [address] Start: 04-10-2022 End: 04-10-[address] Basilio Flores Work Phone: [facility] Work Phone: Start: 04-10-2022 End: 04-10-[address] Basilio Flores Work Phone: [facility] Start: 04-05-2022 End: 04-05-[address] Basilio Flores Work Phone: [facility] Start: 03-27-2022 End: 03-27-[address] Basilio Flores Work Phone: [facility] Start: 03-06-2022 End: 03-06-[address] Basilio Flores Work Phone: [facility] Work Phone: Start: 03-06-2022 End: 03-06-[address] Basilio Flores Work Phone: [facility] Start: 02-06-2022 End: 02-06-[address] Basilio Flores Work Phone: [facility] Work Phone: Start: 02-06-2022 End: 02-06-[address] Basilio Flores Work Phone: [facility] Start: 12-05-2021 End: 12-05-[address] Basilio Flores Work Phone: [facility] Start: 12-04-2021 End: 12-04-[address] Basilio Flores Work Phone: [facility] Start: 11-14-2021 End: 11-14-[address] Basilio Flores Work Phone: [facility] Start: 10-17-2021 End: 10-17-[address] Basilio Flores Work Phone: [facility] Start: 10-17-[address] Basilio avendano Work Phone: [facility] Start: 10-05-2021 End: 10-05-[address] Basilio Flores Work Phone: [facility] Start: 09-12-2021 End: 09-12-[address] Basilio Flores Work Phone: [facility] Start: 09-05-2021 End: 09-05-[address] Basilio Flores Work Phone: [facility] Start: 08-08-2021 End: 08-08-2021 Departed Referred [facility] Start: 08-08-2021 Registered Referred [facility] Start: 07-12-2021 End: 07-12-2021 Departed Referred [facility] Start: 03-16-2019 End: 03-16-2019 Patient encounter procedure Rachael Newman MD Work Phone: [facility] Work Phone: [...] Author Start: 02-17-2025 Registered Referred Registered Referred [facility] Start: 10-20-[address] [facility] Start: 10-19-2024 End: 10-19-2024 [facility] Start: 10-19-2024 Care regimes management [facility] Start: 10-19-2024 Notification of physician [facility] Start: 10-19-[address] [facility] Start: 10-19-2024 Care planning and problem solving actions [facility] Start: 10-18-2024 Following clinical pathway protocol [facility] Start: 10-18-2024 Application of ice collar, cap or bag [facility] Start: 10-18-2024 Assessment of risk of venous thromboembolism [facility] Start: 10-18-2024 Catheterization of vein [facility] Start: 10-18-2024 Consultation for treatment [facility] Start: 10-18-2024 Insertion of catheter into peripheral vein [facility] Start: 10-18-2024 Me[address]uring intake and output [facility] Start: 10-18-[address] [facility] Start: 10-18-2024 Patient referral to dietitian [facility] Start: 10-18-2024 Providing care according to standard [facility] Start: 10-18-2024 Provision [address] privileges [facility] Start: 10-18-2024 Referral for physical therapy [facility] Start: 10-18-2024 Referral to occupational therapist [facility] Start: 10-18-[address] [facility] Start: 10-18-2024 [facility] Start: 10-18-[address] [facility] Start: 10-18-[address] [facility] Start: 10-18-2024 Hospital admission, emergency, from emergency room, medical nature [facility] Start: 10-18-2024 End: 10-18-2024 [facility] Start: 10-18-2024 End: 10-19-2024 [facility] Start: 10-18-2024 Bacteria identified in Blood by Culture Blood Culture [facility] Start: 10-18-2024 Bacteria identified in Urine by Culture Urine Culture [facility] Start: 10-18-[address] [facility] Start: 08-24-2024 Injection aa&/strd genicular nrv branches w/img NJX AA&/STRD GNCLR NRV BRNCH [facility] Start: 08-24-[address] [facility] Start: 08-24-[address] [facility] Start: 06-08-2023 [facility] Start: 06-05-2023 Simple repair f/e/e/n/l/m 2.5cm/< RPR F/E/E/N/L/M 2.5 CM/< [facility] Start: 06-05-2023 [facility] Start: 03-16-2019 End: 03-16-2019 Appointment Appointment [facility] Work Phone: Patient Education [facility] Work Phone: Patient referral [facility] Work Phone: Urine culture [facility] Immunizations Immunization Date Immunization Notes Care Provider Fa cility 06-05-2023 tetanus toxoid, redu lloyd diphtheria toxoid, and acellular pertussis vaccine, adsorbed Dr. Basilio Flores Work Phone: [facility] 02-23-2015 Influenza virus vaccine [facility] Payers Date Payer Category Payer Medicare [id number] 2024 Self-pay [id number] 2024 Unknown [id number] Unknown [id number] Unknown [id number] 2.16.8 40.1.999740.3.579.2.462 Unknown [id number] 2.16.8 40.1.122169.3.579.2.462 Unknown [id number] 2.16.8 40.1.540732.3.579.2.462 Unknown [id number] 2.16.8 40.1.647772.3.579.2.462 Unknown [id number] 2.16.8 40.1.546179.3.579.2.462 Unknown [id number] 2.16.8 40.1.692770.3.579.2.462 Unknown [id number] 2.16.8 40.1.649818.3.579.2.462 Unknown [id number] 2.16.8 40.1.474570.3.579.2.462 Unknown [id number] 2.16.8 40.1.792372.3.579.2.462 Unknown [id number] 2.16.8 40.1.547102.3.579.2.462 Unknown [id number] 2.16.8 40.1.069693.3.579.2.462 Unknown [id number] 2.16.8 40.1.829194.3.579.2.462 Unknown [id number] 2.16.8 40.1.353818.3.579.2.462 Unknown [id number] 2.16.8 40.1.440749.3.579.2.462 Unknown [id number] 2.16.8 40.1.693577.3.579.2.462 Unknown [id number] 2.16.8 40.1.793497.3.579.2.462 Unknown [id number] 2.16.8 40.1.365749.3.579.2.462 Unknown [id number] 2.16.8 40.1.120554.3.579.2.462 Unknown [id number] 2.16.8 40.1.057528.3.579.2.462 Unknown [id number] 2.16.8 40.1.444032.3.579.2.462 Unknown [id number] 2.16.8 40.1.506131.3.579.2.462 Unknown [id number] 2.16.8 40.1.854930.3.579.2.462 Unknown [id number] 2.16.8 40.1.716383.3.579.2.462 Unknown [id number] 2.16.8 40.1.271420.3.579.2.462 Unknown [id number] 2.16.8 40.1.850414.3.579.2.462 Unknown [id number] 2.16.8 40.1.658961.3.579.2.462 Unknown [id number] 2.16.8 40.1.456464.3.579.2.462 Unknown [id number] 2.16.8 40.1.119748.3.579.2.462 Unknown [id number] 2.16.8 40.1.066154.3.579.2.462 Unknown [id number] 2.16.8 40.1.749885.3.579.2.462 Unknown [id number] 2.16.8 40.1.653293.3.579.2.462 Unknown [id number] 2.16.8 40.1.125782.3.579.2.462 Unknown [id number] 2.16.8 40.1.904741.3.579.2.462 Unknown [id number] 2.16.8 40.1.660604.3.579.2.462 Unknown [id number] 2.16.8 40.1.479887.3.579.2.462 Unknown [id number] 2.16.8 40.1.331960.3.579.2.462 Social History Date Type Detail Facility Start: 12-16-2019 End: 06-08-2023 Tobacco smoking status NHIS Unknown if ever smoked [facility] Start: 12-16-2019 None [facility] Start: 12-16-2019 [facility] Start: 12-16-2019 Non-smoker [facility] Start: 1940 Sex Assigned At Female [facility] Start: 06-08-2023 End: 02-19-2025 Tobacco smoking status NHIS Never smoked tobacco (finding) [facility] Start: 08-06-2024 End: 08-24-2024 Sex Female (finding) [facility] Sex Female [facility] NEGATED: Highlighted rowStart: 03-16-2019 End: 03-16-2019 Alcohol use Alcohol use [facility] Work Phone: NEGATED: Highlighted rowStart: 03-16-2019 End: 03-16-2019 Details of drug misuse behavior Details of drug misuse behavior [facility] Work Phone: NEGATED: Highlighted rowStart: 03-16-2019 End: 03-16-2019 Assertion Never smoker [facility] Work Phone: Goals Date Patient Goal Desired Activity /State Functional Status Date Assessment Result Facility 10-20-2024 Functional status Patient Activi ty Bathroom Privilege [facility] Work Phone: 10-20-2024 Functional status Activity Abili ty With Assist of 1 [facility] Work Phone: 10-20-2024 Functional status Standard Walker [facility] Work Phone: Mental Status Date Assessment Result Facility 10-20-2024 Cognitive function Voice/Name [facility] Work Phone: 10-18-2024 Cognitive function Level Of Cons ciousness Awake;Appropriate;Follows Commands;Disoriented [facility] Work Phone: 08-24-2024 Cognitive function Voice/Name [facility] Work Phone: Clinical Notes 06-05-2023 to 10-20-2024 Note Date & Type Note Facility 10-20-2024 Discharge summary Note Date/Time October 20, 2024 3:53pm [facility] Medical Records Department [address] [place] [address] Discharge Summary 10/20/24 1535 MR#: [id number] Acct: [id number] Name: JUSTUS CHINCHILLA Rep #:[id number] : 1940 84 From: Ángel cuenca MD PCP: Dr. Donato Sepulveda MD Status:A DM IN Location: [place] [address] Providers Date of Admission: 10/18/24 Primary Care Physician: Dr. Donato Sepulveda MD Consultations 10/18/24 22:14 Consult: Onc/Wound/advanced quality engineer Routine Comment: Reason For Visit: SEVERE HYPOGLYCEMIA/UTI [...] who presented to the emergency department at [facility] on 10/18/2024 with chief complaint [...] in before D/C Order can be placed): Halfway Facility Charges/Coding Visit Charges Inpatient E&M: 95431 Disch Hosp >30min 10/20/24 155 <Electronically signed by Ángel Lam MD> Cosigner Signature (if applicable): CC: Dr. Donato Sepulveda MD; Dr. Ángel Lam MD~ Signed [facility] Work Phone: 1(804) 942-435806-17-2025 Discharge summary [facility] Medical Records Department [address] [place] [address] Discharge Summary 10/20/24 1535 MR#: [id number] Acct: [id number] Name: JUSTUS CHINCHILLA Rep #:[id number] : 1940 84 From: Ángel cuenca MD PCP: Dr. Donato Sepulveda MD Status:A DM [facility] Providers Date of Admission: 10/18/24 Primary Care Physician: Dr. Donato Sepulveda MD Consultations 10/18/24 22:14 Consult: Onc/Wound/advanced quality engineer Routine Comment: Reason For Visit: SEVERE HYPOGLYCEMIA/UTI [...] who presented to the emergency department at [facility] on 10/18/2024 with chief complaint [...] in before D/C Order can be placed): Halfway Facility Charges/Coding Visit Charges Inpatient E&M: 97648 Disch Hosp >30min 10/20/24 1553 Cosigner Signature (if applicable): CC: Dr. Donato Sepulveda MD; Dr. Ángel Lam MD~ Signed [facility]06-17-2025 [facility] Medical Records Department [address] [place] [address] Discharge Summary 10/20/24 1535 MR#: [id number] Acct: [id number] Name: JUSTUS CHINCHILLA Rep #: [id number] : 1940 84 From: Ángel Lam MD PCP: Dr. Donato Sepulveda MD Status:ADM IN [facility] Providers Date of Admission: 10/18/24 Primary Care Physician: Dr. Donato Sepulveda MD Consultations 10/18/24 22:14 Consult: Onc/Wound/advanced quality engineer Routine Comment: Reason For Visit: SEVERE HYPOGLYCEMIA/UTI [...] who presented to the emergency department at [facility] on 10/18/2024 with chief complaint [...] sugar improved her mentation (more content not included)...[facility]06-[facility]-2025 Consult note Author Perla Jaimes [facility] Note Date/Time October 20, 2024 11:4 8am [facility] Medical Records Department [address] [place] [address] Counseling Note - Pharmacy 10/20/24 1148 MR#: [id number] Acct: [id number] Name: JUSTUS CHINCHILLA Rep #:[id number] : 1940 84 From: Perla Jaimes PCP: Dr. Donato Sepulveda MD Status:A DM IN Y [facility] MD Med Reconciliation Pharmacy Service has performed discharge [...] Signature (if applicable): Date CC: ~ Signed [facility] Work Phone: 1(937) 480-324806-17-2025 Discharge summary Author Ángel Lam [facility] Note Date/Time October 20, 2024 11:[address] [facility] Medical Records Department [address] [place] [address] Transfer to [facility] Care MR#: [id number] Acct: [id number] Name: JUSTUS CHINCHILLA Rep #:[id number] : 1940 84 From: Ángel cuenca MD PCP: Dr. Donato Sepulveda MD Status:A DM IN Certification of patient admission REQUIRED AT TIME OF ADMISSION. I CERTIFY THAT POST-HOSPITAL ECF SERVICES ARE REQUIRED TO BE GIVEN ON AN IN-PATIENT BASIS BECAUSE OF THE ABOVE NAMED PATIENT'S NEED FOR PRISON CARE ON A CONTINUING BASIS FOR THE CONDITION(S) FOR WHICH HE/SHE WAS RECEIVING IN-PATIENT HOSPITAL SERVICES PRIOR TO HIS/HER TRANSFER TO THE [facility]. 10/20/24 1120<Electronically signed by Ángel [...] in before D/C Order can be placed): [facility] 10/20/24 1120 <Electronically signed by Ángel Lam MD> Cosigner Signature (if applicable): CC: Dr. Donato Sepulveda MD; Dr. Anali Coello DO ~ [facility] Work Phone: 1(514) 884-239806-17-2025 Consult note [facility] Medical Records Department [address] [place] [address] Counseling Note - Pharmacy 10/20/24 1148 MR#: [id number] Acct: [id number] Name: JUSTUS CHINCHILLA Rep #:[id number] : 1940 84 From: Perla Jaimes PCP: Dr. Donato Sepulveda MD Status:A DM IN Y Location: [place] [id number] Pharmacy MD Med Reconciliation Pharmacy Service has performed discharge [...] Signature (if applicable): Date CC: ~ Signed [facility]06-17-2025 Discharge summary [facility] Medical Records Department [address] [place] [address] Transfer to [facility] MR#: [id number] Acct: [id number] Name: JUSTUS CHINCHILLA Rep #:[id number] : 1940 84 From: Ángel cuenca MD PCP: Dr. Donato Sepulveda MD Status:A DM IN Certification of patient admission REQUIRED AT TIME OF ADMISSION. I CERTIFY THAT POST-HOSPITAL ECF SERVICES ARE REQUIRED TO BE GIVEN ON AN IN-PATIENT BASIS BECAUSE OF THE ABOVE NAMED PATIENT'S NEED FOR PRISON CARE ON A CONTINUING BASIS FOR THE CONDITION(S) FOR WHICH HE/SHE WAS RECEIVING IN-PATIENT HOSPITAL SERVICES PRIOR TO HIS/HER TRANSFER TO THE [facility]. 10/20/24 1120 Diet Diet Order/Speech [...] in before D/C Order can be placed): [facility] 10/20/24 1120 Cosigner Signature (if applicable): CC: Dr. Donato Sepulveda MD; Dr. Anali Coello, DO ~ [facility]06-16-2025 Progress note Author Ángel Lam [facility] Note Date/Time October 19, 2024 7:[address] [facility] Medical Records Department [address] [place] [address] Progress Note - Hospitalist 10/19/24 1852 MR#: [id number] Acct: [id number] Name: JUSTUS CHINCHILLA Rep #:[id number] : 1940 84 From: Ángel cuenca MD PCP: Dr. Donato Sepulveda MD Status:A DM IN Location: [place] [address]- 1 Subjective Subjective She says that she does not feel great and would prefer to go back to the [facility] tomorrow Objective Data Objective Data Vital [...] Clarity Clear, Urine pH 6.5, Ur Specific [place] 1.015, Urine Protein 30 H, Urine Glucose [...] % (Auto) 70.0, Lymph % (Auto) 21.5, Kern% (Auto) 7.3, Eos % (Auto) 0.6, Baso [...] Catheterized Urine Culture - Preliminary GNR lactose molten iron pourer 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 Mild anterior frontal scalp swelling. No acute calvarial defect. Reading Location: [facility] Physical Exam Narrative General: Alert, Oriented [...] DVT: Lovenox Charges/Coding Visit Charges Inpatient E&M: 41210 Subs Hosp L2 10/19/24 1902 <Electronically signed by Ángel Lam MD> Cosigner Signature (if applicable): CC: ~ Signed [facility] Work Phone: 1(912) 880-723806-16-2025 Progress note [facility] Medical Records Department [address] [place] [address] Progress Note - Hospitalist 10/19/24 1852 MR#: [id number] Acct: [id number] Name: JUSTUS CHINCHILLA Rep #:[id number] : 1940 84 From: Ángel cuenca MD PCP: Dr. Donato Sepulveda MD Status:A DM IN Location: [place] [address] Subjective Subjective She says that she does not feel great and would prefer to go back to the [facility] tomorrow Objective Data Objective Data Vital [...] Clarity Clear, Urine pH 6.5, Ur Specific [place] 1.015, Urine Protein 30 H, Urine Glucose [...] % (Auto) 70.0, Lymph % (Auto) 21.5, Kern% (Auto) 7.3, Eos % (Auto) 0.6, Baso [...] Catheterized Urine Culture - Preliminary GNR lactose molten iron pourer 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 Mild anterior frontal scalp swelling. No acute calvarial defect. Reading Location: [facility] Physical Exam Narrative General: Alert, Oriented [...] DVT: Lovenox Charges/Coding Visit Charges Inpatient E&M: 14026 Subs Hosp L2 10/19/24 190 Cosigner Signature (if applicable): CC: ~ Signed [facility]06-16-2025 Discharge summary Author Zoltan Garcia [facility] Note Date/Time October 19, 2024 12:[facility] [address] [place] [address] Emergency Department Summary 10/18/24 MR#: [id number] Acct: [id number] Name: RENÉEJUSTUS Madelyn Rep #:[id number] : 1940 84 From: Zoltan Gomez PCP: Dr. Donato Sepulveda MD Status:A DM IN Location: [place] [address] HPI HPI - Fall History of Present [...] Patient takes oral hypoglycemicsas well as insulin. [facility] Medical History (Updated 10/18/24 @ 21:59 by [...] motor deficits and no sensory deficits noted [place] Coma Scale: document GCS findings Spontaneous Obeys [...] 89.4 H Lymph % (Auto) 4.7 L Kern % (Auto) 4.8 Eos % (Auto) 0.1 [...] Color Urine Clarity Urine pH Ur Specific [place] Urine Protein Urine Glucose (UA) Urine Ketones [...] (Auto) Neut % (Auto) Lymph % (Auto) Kern % (Auto) Eos % (Auto) Baso % [...] Clarity Clear Urine pH 6.5 Ur Specific [place] 1.015 Urine Protein 30 H Urine Glucose [...] (Auto) Neut % (Auto) Lymph % (Auto) Kern % (Auto) Eos % (Auto) Baso % [...] Color Urine Clarity Urine pH Ur Specific [place] Urine Protein Urine Glucose (UA) Urine Ketones [...] Acute UTI Disposition Disposition: Acute Care Hospital [facility] Discharge Date/Time: 10/18/24 22:04 What to do if you have Problems For any increased pain, shortness of breath, bleeding, nausea or vomiting, chestpain, or any unexpected problems, contact your Primary Care Provider. Call [facility] ([phone]) or report to the closest Emergency Room. Call 911 if necessary. 10/19/24 0013 <Electronically signed by Zoltan Garcia DO> Cosigner Signature (if applicable): CC: Dr. Donato Sepulveda MD ~ Signed [facility] Work Phone: 1(871) 990-490806-16-2025 History and physical note Author Anali Coello [facility] Note Date/Time October 18, 2024 10:2 4pm [facility] Medical Records Department [address] [place] [address] H&P Exam - Hospitalist 10/18/242107 MR#: [id number] Acct: [id number] Name: JUSTUS CHINCHILLA Rep #:[id number] : 1940 84 From: Anali Coello DO PCP: Dr. Donato Sepulveda MD Status:A DM IN Location: [place] [address] HPI - General General Date of Admission: 10/18/24 Date of Service: 10/18/24 Chief Complaint: Fall/altered mental status HPI Narrative JUSTUS CHINCHILLA, is a 84 F who presented to the emergency department at [facility] on 10/18/2024 with chief complaint [...] she was close to her baseline mentation. [facility] Medical History (Updated 10/18/24 @ [...] (Auto) 89.4 H, Lymph % (Auto) 4.7L, Kern % (Auto) 4.8, Eos % (Auto) 0.1, [...] Clarity Clear, Urine pH 6.5, Ur Specific Bang[place] 1.015, Urine Protein 30 H, Urine Glucose [...] swelling. No acute calvarial defect. Reading Location: [id number] Assessment & Plan Assessment/Plan (1) Skin tear of forearm without complication: (2) Diabetic hypoglycemia: (3) Fall: (4) Traumatic hematoma of forehead: (5) Abrasion of forehead: PLAN: Plan Altered mental status secondary to severe hypoglycemia - Blood sugar on [facility] at presentation was 19 - Dextrose drip [...] work consultation - Patient currently resides [facility] - Hold all home antidiabetic agents - [...] palliative care Charges/Coding Visit Charges Inpatient E&M: 14579 Init Hosp L2 10/18/24 2224 <Electronically signed by Anali Coello DO> Cosigner Signature (if applicable): CC: Dr. Donato Sepulveda MD; Dr. Anali Coello DO~ Signed [facility] Work Phone: 1(113) 432-770606-16-2025 Discharge summary [facility] Medical Records Department [address] [place] [address] Emergency Department Summary 10/18/24 MR#: [id number] Acct: [id number] Name: JUSTUS CHINCHILLA Rep #:[id number] : 1940 84 From: Zoltan Gomez PCP: Dr. Donato Sepulveda MD Status:A DM IN Location: [place] [address] HPI HPI - Fall History of Present [...] Patient takes oral hypoglycemicsas well as insulin. [facility] Medical History (Updated 10/18/24 @ 21:59 by [...] 89.4 H Lymph % (Auto) 4.7 L Kern % (Auto) 4.8 Eos % (Auto) 0.1 [...] Color Urine Clarity Urine pH Ur Specific [place] Urine Protein Urine Glucose (UA) Urine Ketones [...] (Auto) Neut % (Auto) Lymph % (Auto) Kern % (Auto) Eos % (Auto) Baso % [...] Clarity Clear Urine pH 6.5 Ur Specific [place] 1.015 Urine Protein 30 H Urine Glucose [...] (Auto) Neut % (Auto) Lymph % (Auto) Kern % (Auto) Eos % (Auto) Baso % [...] Color Urine Clarity Urine pH Ur Specific [place] Urine Protein Urine Glucose (UA) Urine Ketones Urine Occult Blood Urine Nitrite Urine Bilirubin Urine Urobilinogen Ur Leukocyte Esterase Urine RBC Urine WBC Ur Squamous Epith Cells Urine Bacteria Urine Mucus POC Glucose 129 H Radiography Diagnostic Testing: Clinical Impression(s) from Imaging Studies Brain CT 10/18/24 17:01 IMPRESSION: No acute intracranial process. Mild anterior frontal scalp swelling. No acute calvarial defect. Reading Location: [id number] Management Discussion w/another healthcare provider: Hospitalist (Dr. Coello) Discharge Plan Dx/Rx/DC Orders Clinical Impression: Traumatic hematoma of forehead, Abrasion of forehead, Fall, Diabetic hypoglycemia, Skin tear of forearm without complication, Acute UTI Disposition Disposition: Acute Care Hospital [facility] Discharge Date/Time: 10/18/24 22:04 What to do if you have Problems For any increased pain, shortness of breath, bleeding, nausea or vomiting, chestpain, or any unexpected problems, contact your Primary Care Provider. Call [facility] ([phone]) or report tothe closest Emergency Room. Call 911 if necessary. 10/19/24 0013 Cosigner Signature (if applicable): CC: Dr. Donato Sepulveda MD ~ Signed [facility]06-15-2025 Evaluation note* Diagnosis Onset Date Resolution Status Admit Date Abrasion of forehead acute October 18, 2024 9:38pm Acute UTI acute October 18 9:38pm Diabetic hypoglycemia acute Oct 9:38pm Fall acute October 18 9:38pm Skin tear of forearm without complication acute October 18, 2024 9:38pm Traumatic hematoma of forehead acute October 18, 2024 9:38pm [facility] Work Phone: 1(374) 340-131406-15-2025 Evaluation note* Diagnosis Onset Date Resolution Status Admit Date Abrasion of forehead acute October 18, 2024 9:38pm Diabetic hypoglycemia acute Oct 9:38pm Fall acute October 18 9:38pm Skin tear of forearm without complication acute October 18, 2024 9:38pm Traumatic hematoma of forehead acute October 18, 2024 9:38pm Acute UTI resolved October 18 9:38pm [facility] Work Phone: 1(700) 301-546606-15-[address] [facility] Medical Records Department [address] [place] [address] H&P Exam - Hospitalist 10/18/24 210 MR#: [id number] Acct: [id number] Name: JUSTUS CHINCHILLA Rep #:[id number] : 1940 84 From: Anali Coello DO PCP: Dr. Donato Sepulveda MD Status:A DM IN Location: [place] [address] HPI - General General Date of Admission: 10/18/24 Date of Service: 10/18/24 Chief Complaint: Fall/altered mental status HPI Narrative JUSTUS CHINCHILLA, is a 84 F who presented to the emergency department at [facility] on 10/18/2024 with chief complaint [...] family and seems to be at [facility] at the time of my admission. She [...] she was close to her baseline mentation. [facility] Medical History (Updated 10/18/24 @ [...] (Auto) 89.4 H, Lymph % (Auto) 4.7L, Kern % (Auto) 4.8, Eos % (Auto) 0.1, [...] Clarity Clear, Urine pH 6.5, Ur Specific Bang[place] 1.015, Urine Protein 30 H, Urine Glucose [...] swelling. No acute calvarial defect. Reading Location: [id number] Assessment & Plan Assessment/Plan (1) Skin tear [...] work consultation - Patient currently resides at [facility] DM-2 - Hold all home antidiabetic agents [...] palliative care Charges/Coding Visit Charges Inpatient E&M: 78979 Init Hosp L2 10/18/24 2224 Cosigner Signature (if applicable): CC: Dr. Donato Sepulveda MD; Dr. Anali Coello DO~ Signed [facility]06-15-2025 Radiology Diagnostic study note [facility] Imaging Services [address] [place] [address] [id number] Brain/Head without Contrast MR#: [id number] Acct: [id number] Name: JUSTUS CHINCHILLA Rep #: [id number] : 1940 F 84 From: Debby Contreras MD PCP: Dr. Donato Sepulveda MD Status: R EG ER Study:Brain/Head without Contrast Date of Exa m: 10/18/24 Exam# [id number] Ordering Dr: Parminder Garcia DO PROCEDURE: BRAIN/HEAD [...] hydrocephalus or significant midline shift. There is [id number] chronic microvascular ischemic changes and qysh-jg-lvtpaelq parenchymal volume loss. No acute, depressed calvarial fractures. Mild anterior frontal scalp swelling. Bilateral lens surgeries. CT/Brain/Head without Contrast IMPRESSION: No acute intracranial process. Mild anterior frontal scalp swelling. No acute calvarial defect. Reading Location: [id number] CC: Dr. Zoltan Garcia DO; Dr. Donato Sepulveda MD ~ [employer] Lining Finisher: Signed [facility]04-21-2025 Procedure note [facility] Medical Records Department [address] [place] [address] Operative Report 08/24/24931 MR#: [id number] Acct: [id number] Name: JUSTUS CHINCHILLA Rep #:[id number] : 1940 84 From: Armando Rich MD PCP: Dr. Donato Sepulveda MD Status:R [facility] Location: [place] [address] Operative Report (Standard) Operative Information Date of Procedure: 08/24/24 Pre-Operative Diagnosis: Osteoarthritis of the right knee, chronic postoperativeknee pain Post-Operative Diagnosis: Osteoarthritis of the right knee, chronic postoperative knee pain Surgery/Procedure Performed: Right knee superior medial/superior lateral/inferior medial genicular nerves steroid injection under fluoroscopic guidance operations specialist: No Type of Anesthesia: Local RN Documented [...] Sepulveda MD; Dr. Armando Rich MD~ Signed [facility]01-31-2024 Discharge summary Author Colleen Remyjuno [facility] June 05, 2023 7:54am Note Date/Time June 05, 2023 4 :38am [facility] Medical Records Department [address] [place] [address] Emergency Department Summary 06/05/23 MR#: [id number] Acct: [id number] Name: JUSTUS CHINCHILLA Rep #:[id number] : 1940 82 From: Colleen Gomez PCP: Dr. Basilio Flores MD Status:REG ER Location: ED HPI History of Present Illness Chief Complaint: Head Injury Informant: patient Narrative Narrative: Patient is an 82-year-old female presenting from [facility] after she injured her head. Patient states [...] for evaluation of injuries. Tetanus Immunization: Unknown [facility] Medical History Anxiety and depression Arthritis Asthma [...] her baseline. No focal neurologic deficits appreciated [place] Coma Scale: document GCS findings Spontaneous Obeys [...] 76.3 H Lymph % (Auto) 13.6 L Kern % (Auto) 7.2 Eos % (Auto) 2.0 [...] Sl. Cloudy Urine pH 6.0 Ur Specific Bang[place] 1.015 Urine Protein 15 H Urine Glucose [...] your Primary Care Provider. Call [facility] ([phone]) or report to the closest Emergency Room. Call 911 if necessary. 06/05/23 4387 <Electronically signed by Colleen Walker DO> Cosigner Signature (if applicable): CC: Dr. Basilio Flores MD ~ Signed [facility] Work Phone: Evaluation noteNo assessment information available [facility] Work Phone: Evaluation note* Diagnosis Onset Date Resolution Status Admit Date Abrasion of forehead acute October 18, 2024 9:38pm Acute UTI acute October 18 9:38pm Diabetic hypoglycemia acute Oct 9:38pm Fall acute October 18 9:38pm Skin tear of forearm without complication acute October 18, 2024 9:38pm Traumatic hematoma of forehead acute October 18, 2024 9:38pm [facility] Work Phone: Hospital Discharge instructions Additional Instructions Lab work including CBC, BMP, urinalysis and CT of the head, cervical spine as well as x-ray of the right elbow do not show any acute injury or abnormalities. The cause of Justus's frequent falls is not clear however at this time I do not think she requires admission to the hospital.[facility] Work Phone: Reason for referral (narrative)No reason for referral information availableWMartin [facility] Work Phone: Chief Complaint Chief Complaint [...] Yes December 15 0 6:54pm Power of Investigative Writer Yes December 15 6:54pm Advance Directive Response Recorded Date/ Time Advance Directives Yes October 13 12:44pm Living Will Yes December 15 0 5:54pm Power of Investigative Writer Yes December 15 5:54pm Advance Directive Response Recorded Date/ Time Advance Directives Yes March 07, 2023 11:00am Living Will Yes March 07 11:00am Power of Investigative Writer Yes March 07, 2023 11:00am Advance Directive Response Recorded Date/ Time Name of Medical Power of Investigative Writer ABEBE VELEZ June 05, 2023 3:45am Advance Directives Yes March 07, 2023 11:00am Living Will Yes June 05 3:45am Power of Investigative Writer Yes June 05, 2023 3:45am Advance Directive Response Recorded Date/ Time Name of Medical Power of Investigative Writer ABEBE VELEZ June 05, 2023 3:45am Advance Directives Yes March 07, 2023 11:00am Living Will No June 08 8:10am Power of Investigative Writer No June 08, 2023 8:10am Advance Directive Response Recorded Date/ Time Name of Medical Power of Investigative Writer ABEBE VELEZ June 05, 2023 4:45am Advance Directives Yes March 07, 2023 12:00pm Living Will No June 08 9:10am Power of Investigative Writer No June 08, 2023 9:10am Advance Directive Response Recorded Date/ Time Advance Directives Yes March 07, 2023 12:00pm Advance Directive Response Recorded Date/ Time Do you have a Healthcare Power of Investigative Writer? Yes October 18, 2024 4:46pm Advance Directives Yes March 07, 2023 12:00pm Advance Directive Response Recorded Date/ Time Do you have a Healthcare Pow er of Investigative Writer? Yes October 18, 2024 10:15pm Name of Medical Power of Investigative Writer Ina Jaimes October 18, 2024 10:15pm Advance [...] Complaint and Reason for Visit Chief Complaint PRISON LAB WOR K PRISON PATIENT Chief Complaint PRISON LAB WOR K PRISON PATIENT MONTHLY EXAM Chief Complaint PRISON LAB WOR K PRISON PATIENT MONTHLY EXAM LABWORK Chief Complaint PRISON PATIENT MONTHLY EXAM LABWORK Chief Complaint MONTHLY EXAM LABWORK PRISON LABWORK PRISON LABWORK MONTHLY EXAM PRISON LABWORK Chief Complaint PRISON LABWORK MONTHLY EXAM PRISON LABWORK PRISON LABWORK Chief Complaint MONTHLY EXAM PRISON LABWORK PRISON LABWORK PRISON LABWORK Chief Complaint PRISON LABWORK PRISON LABWORK NEW SYMPTOMS/CONCERNS ACUTE CARE VISIT PRISON LAB WORK PRISON LAB WORK Chief Complaint PRISON LABWORK NEW SYMPTOMS/CONCERNS ACUTE CARE VISIT PRISON LAB WORK PRISON LABWORK PRISON LAB WORK MONTHLY EXAM PRISON LABWORK NEW PROBLEM/CONCERN Chief Complaint MONTHLY EXAM PRISON LABWORK NEW PROBLEM/CONCERN NEW PROBLEM NEW PROBLEM/CONCERN NEW PROBLEM NEW PROBLEM NEW PROBLEM PRISON LABWORK Chief Complaint MONTHLY EXAM PRISON LABWORK NEW PROBLEM/CONCERN NEW PROBLEM NEW PROBLEM/CONCERN NEW PROBLEM NEW PROBLEM NEW PROBLEM PRISON LABWORK PRISON LABWORK Chief Complaint NEW CONCERN PRISON LABWORK MONTHLY EXAM PRISON LAB WORK PRISON LABWORK PRISON LAB WORK MONTHLY EXAM MONTHLY EXAM PRISON LAB WORK Chief Complaint NEW CONCERN PRISON LABWORK MONTHLY EXAM PRISON LAB WORK PRISON LABWORK PRISON LAB WORK MONTHLY EXAM MONTHLY EXAM PRISON LAB WORK PRISON LAB WORK Chief Complaint NEW CONCERN NEW CONCERN MONTHLY EXAM NEW CONCERN NEW CONCERN PRISON LAB WORK FOLLOW UP PRISON LAB WORK ACUTE CARE MONTHLY EXAM PRISON LAB WORK Chief Complaint NEW CONCERN MONTHLY EXAM NEW CONCERN NEW CONCERN PRISON LAB WORK FOLLOW UP PRISON LAB WORK ACUTE CARE MONTHLY EXAM PRISON LAB WORK PRISON LABWORK PRISON LABWORK Chief Complaint PRISON LAB WOR K FOLLOW UP PRISON LAB WORK ACUTE CARE MONTHLY EXAM PRISON LAB WORK PRISON LABWORK PRISON LABWORK MONTHLY EXAM 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 INJURY Chief Complaint FOLLOW UP PRISON LAB WORK ACUTE CARE MONTHLY EXAM PRISON LAB WORK PRISON LABWORK PRISON LABWORK MONTHLY EXAM SENIOR 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 NEW CONCERN MONTHLY EXAM - MD HEAD INJURY NEW CONCERN fall LABWORK Chief Complaint PRISON LABWORK PRISON LABWORK MONTHLY EXAM SENIOR 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 NEW CONCERN MONTHLY EXAM - MD HEAD INJURY NEW CONCERN fall LABWORK PRISON LAB WORK Chief Complaint Admit Date PRISON LAB WORK April 21 5:00am MONTHLY EXAM May 19, 2024 4 :53pm NEW CONCERN June 01, 2024 5 :22pm PRISON LAB WORK June 02, 2024 5:00am PRISON LAB WORK June 09, 2024 5:00am PRISON LAB WORK June 15 3:15pm NEW CONCERN June 26, 2024 5:54pm PRISON LAB WORK July 14, 2024 4 :00am PRISON LAB WORK July 15, 2024 5 :00am Chief Complaint Admit Date PRISON LAB WORK April 21 5:00am MONTHLY EXAM May 19, 2024 4 :53pm NEW CONCERN June 01, 2024 5 :22pm PRISON LAB WORK June 02, 2024 5:00am PRISON LAB WORK June 09, 2024 5:00am PRISON LAB WORK June 15 3:15pm NEW CONCERN June 26, 2024 5:54pm PRISON LAB WORK July 14, 2024 4 :00am MONTHLY EXAM July 14, 2024 4:0 5pm PRISON LAB WORK July 15, 2024 5 :00am Chief Complaint Admit Date MONTHLY EXAM May 19, 2024 4 :53pm NEW CONCERN June 01, 2024 5 :22pm PRISON LAB WORK June 02, 2024 5:00am PRISON LAB WORK June 09, 2024 5:00am PRISON LAB WORK June 15 3:15pm NEW CONCERN June 26, 2024 5:54pm PRISON LAB WORK July 14, 2024 4 :00am MONTHLY EXAM July 14, 2024 4:0 5pm PRISON LAB WORK July 15, 2024 5 :00am Chief Complaint Admit Date PRISON LAB WORK June 09, 2024 5:00am PRISON LAB WORK June 15 3:15pm NEW CONCERN June 26, 2024 5:54pm PRISON LAB WORK July 14, 2024 4 :00am MONTHLY EXAM July 14, 2024 4:0 5pm PRISON LAB WORK July 15, 2024 5 :00am MONTHLY EXAM August 17, 2024 4:4 9pm PRISON LAB WORK August 25, 2024 4 :00am Chief Complaint Admit Date PRISON LAB WORK June 15 3:15pm NEW CONCERN June 26, 2024 5:54pm PRISON LAB WORK July 14, 2024 4 :00am MONTHLY EXAM July 14, 2024 4:0 5pm PRISON LAB WORK July 15, 2024 5 :00am MONTHLY EXAM August 17, 2024 4:4 9pm PRISON LAB WORK August 25, 2024 4 :00am PRISON LAB WORK September 08, 2024 5:00 am Chief Complaint Admit Date NEW CONCERN June 26, 2024 5:54pm PRISON LAB WORK July 14, 2024 4 :00am MONTHLY EXAM July 14, 2024 4:0 5pm PRISON LAB WORK July 15, 2024 5 :00am MONTHLY EXAM August 17, 2024 4:4 9pm PRISON LAB WORK August 25, 2024 4 :00am PRISON LAB WORK September 08, 2024 5:00 am [...] Date NEW CONCERN June 26, 2024 5:54pm PRISON LAB WORK July 14, 2024 4 :00am MONTHLY EXAM July 14, 2024 4:0 5pm PRISON LAB WORK July 15, 2024 5 :00am MONTHLY EXAM August 17, 2024 4:4 9pm PRISON LAB WORK August 25, 2024 4 :00am PRISON LAB WORK September 08, 2024 5:00 am SEVERE HYPOGLYCEMIA/UTI October 18, 2024 9:38pm SEVERE HYPOGLYCEMIA/UTI October 19, 2024 6:52pm SEVERE HYPOGLYCEMIA/UTI October 20, 2024 11:11am Chief Complaint Admit Date MONTHLY EXAM August 17, 2024 4:4 9pm PRISON LAB WORK August 25, 2024 4 :00am PRISON LAB WORK September 08, 2024 5:00 am MONTHLY EXAM September 15, 2024 4:00p m PRISON LAB WORK October 06, 2024 5:0 0am [...] MONTHLY EXAM August 17, 2024 4:4 9pm PRISON LAB WORK August 25, 2024 4 :00am PRISON LAB WORK September 08, 2024 5:00 am MONTHLY EXAM September 15, 2024 4:00p m PRISON LAB WORK October 06, 2024 5:0 0am SEVERE HYPOGLYCEMIA/UTI October 18, 2024 9:38pm SEVERE HYPOGLYCEMIA/UTI October 19, 2024 6:52pm SEVERE HYPOGLYCEMIA/UTI October 20, 2024 11:11am RE ADMISSION EXAM October 21, 2024 5:45 pm Chief Complaint Admit Date PRISON LAB WORK August 25, 2024 4 :00am PRISON LAB WORK September 08, 2024 5:00 am MONTHLY EXAM September 15, 2024 4:00p m PRISON LAB WORK October 06, 2024 5:0 0am SEVERE HYPOGLYCEMIA/UTI October 18, 2024 9:38pm SEVERE HYPOGLYCEMIA/UTI October 19, 2024 6:52pm SEVERE HYPOGLYCEMIA/UTI October 20, 2024 11:11am RE ADMISSION EXAM October 21, 2024 5:45 pm Monthly Exam November 10, 2024 4:19p m PRISON LAB WORK November 17, 2024 4: 50am Chief Complaint Admit Date PRISON LAB WORK September 08, 2024 5:00 am MONTHLY EXAM September 15, 2024 4:00p m PRISON LAB WORK October 06, 2024 5:0 0am SEVERE HYPOGLYCEMIA/UTI October 18, 2024 9:38pm SEVERE HYPOGLYCEMIA/UTI October 19, 2024 6:52pm SEVERE HYPOGLYCEMIA/UTI October 20, 2024 11:11am RE ADMISSION EXAM October 21, 2024 5:45 pm Monthly Exam Megan 8th, 2025 4:19p m PRISON LAB WORK November 17, 2024 4: 50am MONTHLY EXAM December 04, 2024 4:1 5pm PRISON LAB WORK December 08, 2024 5 :00am Chief Complaint Admit Date SEVERE HYPOGLYCEMIA/UTI October 18, 2024 9:38pm SEVERE HYPOGLYCEMIA/UTI October 19, 2024 6:52pm SEVERE HYPOGLYCEMIA/UTI October 20, 2024 11:11am RE ADMISSION EXAM October 21, 2024 5:45 pm Monthly Exam November 10, 2024 4:19p m PRISON LAB WORK November 17, 2024 4: 50am MONTHLY EXAM December 04, 2024 4:1 5pm PRISON LAB WORK December 08, 2024 5 :00am PRISON LAB WORK December 29, 2024 4:00am PRISON LAB WORK December 30, 2024 5:00am Chief Complaint Admit Date Monthly Exam November 10, 2024 4:19p m PRISON LAB WORK November 17, 2024 4: 50am MONTHLY EXAM December 04, 2024 4:1 5pm PRISON LAB WORK December 08, 2024 5 :00am PRISON LAB WORK December 29, 2024 4:00am PRISON LAB WORK December 30, 2024 5:00am MONTHLY EXAM January 12, 2025 3:54pm NEW CONCERN January 26, 2025 3:02pm Chief Complaint Admit Date Monthly Exam November 10, 2024 4:19p m PRISON LAB WORK November 17, 2024 4: 50am MONTHLY EXAM December 04, 2024 4:1 5pm PRISON LAB WORK December 08, 2024 5 :00am PRISON LAB WORK December 29, 2024 4:00am PRISON LAB WORK December 30, 2024 5:00am MONTHLY EXAM January 12, 2025 3:54pm NEW CONCERN January 26, 2025 3:02pm PRISON LAB WORK February 09, 2025 5:25am Summary [...] 2024 End: June 26, 2024 Debora Schneider SENIOR 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, SENIOR 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-C Attending Provider Active Start: June 26, 2024 [...] 2024 End: August 17, 2024 Debora Schneider SENIOR 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, SENIOR 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-C Attending Provider Active Start: August 17, 2024 [...] 2024 End: August 24, 2024 Debora Schneider SENIOR 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, SENIOR 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-C Other Provider Active S tart: August 24, [...] MD Primary Care Provider Active Debora Schneider SENIOR 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, SENIOR 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-C Attending Provider Active Team Status: Inactive Member [...] 2024 End: June 01, 2024 Debora Schneider SENIOR 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, SENIOR 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-C Attending Provider Active Start: June 01, 2024 [...] 2024 End: August 17, 2024 Debora Schneider SENIOR 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, SENIOR 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-C Attending Provider Active Start: August 17, 2024 [...] 2024 End: August 24, 2024 Debora Schneider SENIOR 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, SENIOR 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-C Other Provider Active S tart: August 24, [...] Inactive Member Role/Relationship Status Dates Dr. Donato Seuplveda MD Primary Care Provider Active Start: September [...] End: October 21, 2024 Debora Schneider NP, SENIOR 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-C Attending Provider Active Start: October 21, 2024 End: October 21, 2024 Team Status: Active Member Role/Relationship Status Dates Dr. Donato Sepulveda MD Primary Care Provider Active Start: November 17, 2024 Donato COLVIN MD Attending Provider Active Start: November 17, 2024 Team Status: Inactive Member Role/Relationship Status Dates Dr. Armanod Rich MD Attending Provider Active Start: August 24, 2024 End: August 24, 2024 Dr. Armando Rich MD Referring Provider Active Start: August 24, 2024 End: August 24, 2024 Dr. Donato Sepulveda MD Primary Care Provider Active Start: August 24, 2024 End: August 24, 2024 Debora Schneider SENIOR 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, SENIOR 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-C Other Provider Active S tart: August 24, [...] 18, 2024 End: October 20, 2024 Dr. Aanli Coello DO Other Provider Active Start : [...] Active Start: October 20, 2024 Dr. Anali Coelol DO Admit Provider Active Start : October [...] 2024 End: October 21, 2024 Debora Schneider SENIOR 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, SENIOR 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-C Attending Provider Active Start: October 21, 2024 [...] 2024 End: October 21, 2024 Debora Schneider SENIOR 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, SENIOR 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-C Attending Provider Active Start: October 21, 2024 [...] 2024 End: December 04, 2024 Debora Schneider SENIOR 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, SENIOR 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-C Attending Provider Active Start: December 04, 2024 [...] 2024 End: October 21, 2024 Debora Schneider SENIOR 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, SENIOR 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-C Attending physician Active Start: October 21, 2024 [...] 2024 End: December 04, 2024 Debora Schneider SENIOR 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, SENIOR 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-C Attending physician Active Start: December 04, 2024 [...] 2024 End: December 04, 2024 Debora Schneider SENIOR 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, SENIOR 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-C Attending physician Active Start: December 04, 2024 [...] 2025 End: January 26, 2025 Debora Schneider SENIOR 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, SENIOR 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-C Attending physician Active Start: January 26, 2025 [...] section and content) DATE CREATED AUTHOR 03/18/2025 [facility] FOR RECORDS PERTAINING TO PATIENTS WHO [...] BE BASED ON THE PRIMARY CLINICAL RECORDS. [employer] provides no warranty or guarantee of the accuracy or completeness of information in this document.
== END ==
LOC: OLS.WHLEAS 05:00
PROVIDERS: PCP Internal Medicine; Visit Provider Internal Medicine
DX: E11.22 Type 2 diabetes mellitus with diabetic chronic kidney disease (principal); N18.30 Chronic kidney disease, stage 3 unspecified; E11.21 Type 2 diabetes mellitus with diabetic nephropathy; G20.A1 Parkinson's disease without dyskinesia, without mention of fluctuations
CPT/HCPCS: 36415; 83036

== ENCOUNTER → 2025-04-06 05:00 | Outpatient (REF) | payer MEDICARE, MEDICAID, SELFPAY ==
[2025-04-06 08:02] LABS: Hematocrit 37.6 % (37-47); Hemoglobin 11.8 g/dL (12.0-15.0); Mean Corp Hgb Conc 31.4 g/dL (32-36); Mean Corpuscular Volume 92.2 fL (81-99); Mean Platelet Vol. 11.0 fl (6.2-12.0); Platelet Count 183 K/mm3 (150-450); RBC Distribution Width CV 12.4 % (11.6-14.6); RBC Distribution Width SD 42.1 fl (35.1-43.9); Red Blood Count 4.08 M/mm3 (4.2-5.4); White Blood Count 5.8 K/mm3 (4.4-11.0)
[2025-04-06 08:36] LABS: Anion Gap 13 (5-15); BUN 16 mg/dL (4-19); BUN/Creat Ratio 21.9 RATIO (10-20); Calcium,Total 9.3 mg/dL (7.6-11.0); Carbon Dioxide 23.9 mmol/L (21.0-32.0); Chloride 98 mmol/L (98-108); Glucose 273 mg/dL (70-99); Potassium 4.4 mmol/L (3.3-5.1); Vitamin D,25 Hydroxy 37.6 ng/mL (30-100)
== END ==
LOC: OLS.WHLEAS 05:00
PROVIDERS: PCP Internal Medicine; Visit Provider Nurse Practitioner Adult Health
DX: E11.22 Type 2 diabetes mellitus with diabetic chronic kidney disease (principal); N18.30 Chronic kidney disease, stage 3 unspecified; E11.21 Type 2 diabetes mellitus with diabetic nephropathy; G20.A1 Parkinson's disease without dyskinesia, without mention of fluctuations
CPT/HCPCS: 36415; 80048; 82306; 83036; 85027

== ENCOUNTER → 2025-04-22 05:00 | Outpatient (REF) | payer MEDICARE, MEDICAID, SELFPAY ==
--- OUTSIDE RECORDS SUMMARY | 2025-04-22 03:27 | XMS RPT_ITS | CCD ---
Author Organization [facility] Care Team Providers Care Looper Operator Name Role Phone Trent HILARIO, Rachael Sarabia Unavailable Dr. Basilio Flores Primary Care Provider Tickangelic COLLAR TRIMMER, COLLAR TRIMMER-C Debora Attending Provider Dr. Basilio Anderson Primary Care Provider Dr. Basilio Flores Primary Care Provider [place]ickton COLLAR TRIMMER, COLLAR TRIMMER-C Debora Attending Provider Dr. Basilio Anderson Primary Care Provider [place] COLLAR TRIMMER, COLLAR TRIMMER-C Debora Attending Provider Dr. Basilio Anderson Primary Care Provider Dr. Donato Sepulveda Attending Provider [place] COLLAR TRIMMER, COLLAR TRIMMER-C Debora Attending Provider Dr. Basilio Anderson Primary Care Provider Dr. Donato Sepulveda Attending Provider [place] COLLAR TRIMMER, COLLAR TRIMMER-C Debora Attending Provider Dr. Basilio Anderson Primary Care Provider [place] COLLAR TRIMMER, COLLAR TRIMMER-C Debora Attending Provider Dr. Donato Centeno Attending Provider [phone] Dr. Basilio Flores Primary Care Provider [place]ton COLLAR TRIMMER, COLLAR TRIMMER-C Debora Attending Provider Dr. Donato Centeno Attending Provider Dr. Basilio Flores Primary Care Provider [place] COLLAR TRIMMER, COLLAR TRIMMER-C Debora Attending Provider Dr. Basilio Anderson Primary Care Provider [place] COLLAR TRIMMER, COLLAR TRIMMER-C Debora Attending Provider Dr. Donato Sepulveda Attending Provider Dr. Basilio Flores Primary Care Provider [place] COLLAR TRIMMER, COLLAR TRIMMER-C Debora Attending Provider Dr. Donato Sepulveda Attending Provider Dr. Basilio Flores MD Primary Care Provider Donato Sepulveda MD Attending Provider Dr. Donato Frederick MD Attending Provider Tickangelic COLLAR TRIMMER-C, Debora Attending Provider Donato Sepulveda MD Referring Provider Dr. Basilio Owens MD Primary Care Provider Donato Sepulveda MD Attending Provider UnavailDr. Armando Elizabeth MD Attending Provider [phone] Dr. Armando Rich MD Referring Provider Derick HILARIO, Dr. Sewell Primary Care Provider Tickangelic COLLAR TRIMMER-C, Debora Other Provider Dr. Basilio Flores MD Primary Care Provider Donato Sepulveda MD Attending Provider Unavaila keli Schneider COLLAR TRIMMER-C, Debora Attending Provider Dr. Donato Sepulveda MD [...] HILARIO, Dr. Ángel Triana Other Provider Tickton COLLAR TRIMMER-C, Debora Attending Provider Derick HILARIO, Donato Attending Provider Unavailyifan Sepulveda MD, Donato Referring Provider Selwyn Sepulveda MD, Dr. Sewell Attending Provider Tickangelic COLLAR TRIMMER-C, Debora Attending Provider Derick HILARIO, Dr. [...] HILARIO, Dr. Ángel Triana Nurse Practitioner Wyatt COLLAR TRIMMER-C, Debora Attending Physician Derick HILARIO, Dr. Sewell Attending Physician Donato Sepulveda MD Attending Physician Unavail able Derick HILARIO, Dr. Sewell Primary Care Physician Wyatt COLLAR TRIMMER-C, Debora Attending Physician Donato Sepulveda Primary Care [...] Unavailable Oleghe, Efewongbe Primary Care Unavailable [place]ton COLLAR TRIMMER, Debora Consulting Unavailable Armando Rich Attending Unavailable Armando Rich Referring Unavailable Oleghe, Efewongbe Primary Care Unavailable [place] COLLAR TRIMMER, Debora Attending Unavailable Oleghe, Efewongbe Primary [...] e Oleghe, Efewongbe Primary Care Unavailable [place] COLLAR TRIMMER, Debora Attending Unavailable Oleghe, Efewongbe Primary Care Unavailable Oleghe, Efewongbe Attending Unavailable [place] COLLAR TRIMMER, Debora Attending Unavailable Oleghe, Efewongbe Primary Care Unavailable [place] COLLAR TRIMMER, Debora Attending Unavailable Oleghe, Efewongbe Primary Care Unavailable Oleghe OLS, Efewongbe Attending Unavailabl e Oleghe, Efewongbe Primary Care Unavailable [place] COLLAR TRIMMER, Debora Attending Unavailable Oleghe, Efewongbe Primary Care Unavailable Flores, Basilio K Primary Care Unavailable Oleghe OLS, Efewongbe Attending Unavailabl e Flores, Basilio K Primary Care Unavailable [place] COLLAR TRIMMER, Debora Attending Unavailable Flores, Basilio K Primary Care Unavailable Oleghe, Efewongbe Attending Unavailable [place] COLLAR TRIMMER, Debora Attending Unavailable Oleghe, Efewongbe Primary Care Unavailable Flores, Basilio K Primary Care Unavailable [place] COLLAR TRIMMER, Debora Attending Unavailable Anali Coello Admitting Unavailable Oleghe, Efewongbe Primary Care Unavailable Anali Coello Consulting Unavailable Ángel Lam Attending Unavailable Ángel aLm Consulting Unavailable Anali Coello Attending Unavailable Flores, [...] source) Acetaminophen / HYDROcodone Drug Allergy unknown [facility] Work Phone: (1 source) Acetaminophen / oxyCODONE Drug Allergy 019 unknown [facility] Work Phone: (1 source) Acetaminophen / Propoxyphene Drug Allergy 019 unknown [facility] Work Phone: (1 source) Baclofen Drug Allergy unknown [facility] Work Phone: (1 source) Carbidopa / Levodopa Drug Allergy 019 unknown [facility] Work Phone: (1 source) Ibuprofen Drug Allergy 11-11-2 019 kidney disease [facility] Work Phone: (1 source) Ketoprofen Drug Allergy unknown [facility] Work Phone: (1 source) LORazepam Drug Allergy unknown [facility] Work Phone: (1 source) metFORMIN Drug Allergy unknown [facility] Work Phone: (20 sources) Naloxone; Translations: [naloxone] Drug Allergy unknown, Nausea [facility] Work Phone: (1 source) oxaprozin Drug Allergy unknown [facility] Work Phone: (1 source) rofecoxib Drug Allergy unknown [facility] Work Phone: (1 source) rosiglitazone Drug Allergy siblings had severe reactions [facility] Work Phone: (1 source) Sertraline Drug Allergy unknown [facility] Work Phone: (1 source) Simvastatin Drug Allergy unknown [facility] Work Phone: (1 source) Sulfamethoxazole / Trimethoprim Drug Allergy unknown [facility] Work Phone: (1 source) venlafaxine; Translations: [EFFEXOR] Drug Allergy unknown [facility] Work Phone: (20 sources) Carbidopa Drug Allergy 018 Nausea [facility] (20 sources) HYDROcodone; Translations: [hydrocodone bitartrate] Drug Allergy Nausea [facility] (20 sources) Ketoprofen Drug Allergy Unknown [facility] (20 sources) Levodopa Drug Allergy Nausea [facility] (20 sources) LORazepam Drug Allergy hallucination [facility] (20 sources) metFORMIN; Translations: [metformin HCl] Drug Allergy Nausea [facility] (20 sources) oxaprozin Drug Allergy Nausea [facility] (20 sources) oxyCODONE; Translations: [oxycodone HCl] Drug Allergy Nausea [facility] (20 sources) Propoxyphene; Translations: [propoxyphene HCl] Drug Allergy Nausea [facility] (20 sources) rofecoxib Drug Allergy Nausea [facility] (20 sources) rosiglitazone; Translations: [rosiglitazone maleate] Drug Allergy Nausea [facility] (20 sources) Sertraline; Translations: [sertraline HCl] Drug Allergy haullucination [facility] (20 sources) Simvastatin Drug Allergy Nausea [facility] (20 sources) Sulfamethoxazole Drug Allergy Rash [facility] (20 sources) Trimethoprim Drug Allergy Rash [facility] (20 sources) venlafaxine; Translations: [venlafaxine HCl] Drug Allergy Nausea [facility] (20 sources) NSAIDS (Non-Steroidal Anti-Inflamma; Translations: [NSAIDS (Non-Steroidal Anti-Inflamma] Propensity to adverse reactions PT UNSURE OF REACTION [facility] (1 source) Carbidopa Drug Allergy [facility] (1 source) Ketoprofen Drug Allergy [facility] (1 source) Levodopa Drug Allergy [facility] (1 source) LORazepam Drug Allergy [facility] (1 source) oxaprozin Drug Allergy [facility] (1 source) rofecoxib Drug Allergy [facility] (1 source) Simvastatin Drug Allergy [facility] (1 source) Sulfamethoxazole Drug Allergy 025 [facility] (1 source) Trimethoprim Drug Allergy 025 [facility] Medications Current Medications Medication Drug Class(es) Dates Sig (Normalized) Sig (Original) acetaminophen 325 mg oral tablet (20 sources) Start: 10-18-2024 take 2 tablets by mouth every four hours as needed for pain Start: 03-16-2019 TYLENOL 325 MG CAPS takes two tabs every 4 hours as needed ACETAMINOPHEN [id number] Rachael Newman MD Start: 09-20-2017 take 1 [...] mg/ml ophthalmic solution (4 sources) Plasma Volume Blind Installer Start: 10-18-2024 take 0.1-0.3 drop(s) into the [...] night and 40mg twice daily FUROSEMIDE TABS [id number] Rachael Newman MD glucagon (rdna) 1 mg [...] takes 46 units twice daily INSULIN GLARGINE [id number] Rachael Newman MD Start: 04-06-2015 End: 09-26-2017 [...] three times daily as needed OXYCODONE HCL [id number] Rachael Newman MD Start: 07-14-2015 End: 09-20-2017 [...] as directed prior to dental procedures AMOXICILLIN [id number] Rachael Newman MD aspirin 325 mg oral [...] takes one tab once daily ATORVASTATIN CALCIUM [id number] Rachael Newman MD bacillus coagulans [id number] unt / inulin 250 mg oral capsule [...] TABS takes one tab daily DIPHENHYDRAMINE HCL [id number] Rachael Newman MD Start: 03-16-2019 BENADRYL ALLER GY 25 MG CAPS takes one tab once daily DIPHENHYDRAMINE HCL [id number] Rachael Newman MD doxepin hydrochloride 10 mg oral capsule (1 source) Tricyclic Antidepressant Start: 03-16-2019 DOXEPIN HCL 10 MG CAPS takes two tabs daily DOXEPIN HCL [id number] Rachael Newman MD famotidine 20 mg oral [...] CAPS takes one tab once daily GABAPENTIN [id number] Rachael Newman MD Insulin Glargine 100 UNIT/ML [...] sliding scale three times daily INSULIN ASPART [id number] Rachael Newman MD Start: 04-25-2015 End: 07-14-2015 [...] TABS takes one tab once daily LISINOPRIL [id number] Rachael Newman MD melatonin 3 mg oral tablet (20 sources) Start: 12-16-2019 End: 06-08-2023 take 1 tablet by mouth at bedtime Melatonin 3 MG tablet Discontinued 3 mg PO AT BEDTIME December 16, 2019 12:00am June 08, 2023 9:23am SLEEP Start: 03-16-2019 MELATONIN 10 M G TABS takes one tab once daily MELATONIN [id number] Rachael Newman MD meloxicam 7.5 mg oral [...] CPDR takes one tab once daily OMEPRAZOLE [id number] Rachael Newman MD polyethylene glycol 400 10 [...] takes one tab once daily RANITIDINE HCL [id number] Rachael Newman MD rOPINIRole 0.5 mg oral [...] 02-17-2025 Anion gap [Moles/Vol] 11 mmol/L 09-17 [facility] BUN/creatinine ratioOrdered By: Donato Sepulveda on 02-17-2025 Urea nitrogen/Creatinine [Mass ratio] 13.1 mg/mg 02-22 [facility] Carbon dioxide, total [Moles /volume] in Central venous bloodOrdered By: Donato Sepulveda on 02-17-2025 CO2 [Moles/Vol] 28.1 mmol/L 21.0-32.0 [facility] Chloride assayOrdered By: Livier Sepulveda on 02-17-2025 Chloride [Moles/Vol] 98 mmol/L 98-108 [facility] Glomerular filtration rate ( GFR) estimation/1.73 sq m using serum, plasma, or whole bOrdered By: Donato Sepulveda on 02-17-2025 GFR/1.73 sq M.predicted among non-blacks MDRD (S/P/Bld) [Vol rate/Area] 80 mL/min/{1.73_m2} >60 [facility] Comment on above: mL/min/1.73m2 CKD-EP I Creatinine Equation (2020) Potassium measurement (mass/ volume)Ordered By: Donato Sepulveda on 02-17-2025 Potassium (Unsp spec) [Mass/Vol] 4.1 mmol/L 3.3-5.1 [facility] Serum creatinine measurement (mass/volume)Ordered By: Donato Sepulveda on 02-17-2025 Creatinine [Mass/Vol] 0.75 mg/dL 0.70-1.20 [facility] Serum glucose measurement (m ass/volume)Ordered By: Donato Sepulveda on 02-17-2025 Glucose [Mass/Vol] 366 mg/dL High 70-[address] [facility] Serum or plasma calcium serge urement (mass/volume)Ordered By: Donato Sepulveda on 02-17-2025 Calcium [Mass/Vol] 9.2 mg/dL 7.6-11.[address] [facility] Serum or plasma urea nitroge n measurement (mass/volume)Ordered By: Donato Sepulveda on 02-17-2025 Urea nitrogen [Mass/Vol] 10 mg/dL 4-19 [facility] Sodium levelOrdered By: Raul Sepulveda on 02-17-2025 Sodium [Moles/Vol] 137 mmol/L 133-[address] [facility] Potassium measurement (mass/ volume)Ordered By: Donato Sepulveda on 12-30-2024 Potassium (Unsp spec) [Mass/Vol] 4.3 mmol/L 3.3-5.1 [facility] Anion gap in Serum or Plasma Ordered By: Donato Sepulveda on 12-29-2024 Anion gap [Moles/Vol] 10 mmol/L 5-15 [facility] BUN/creatinine ratioOrdered By: Donato Sepulveda on 12-29-2024 Urea nitrogen/Creatinine [Mass ratio] 18.5 mg/mg 10-20 [facility] Carbon dioxide, total [Moles /volume] in Central venous bloodOrdered By: Donato Sepulveda on 12-29-2024 CO2 [Moles/Vol] 28.6 mmol/L 21.0-32.0 [facility] Chloride assayOrdered By: Livier Sepulveda on 12-29-2024 Chloride [Moles/Vol] 97 mmol/L Low 98-108 [facility] Glomerular filtration rate ( GFR) estimation/1.73 sq m using serum, plasma, or whole bOrdered By: Donato Sepulveda on 12-29-2024 GFR/1.73 sq M.predicted among non-blacks MDRD (S/P/Bld) [Vol rate/Area] 81 mL/min/{1.73_m2} >60 [facility] Comment on above: mL/min/1.73m2 CKD-EP I Creatinine Equation (2020) Hemoglobin A1c percentageOrd ered By: Donato Sepulveda on 12-29-2024 HbA1c (Bld) [Mass fraction] 9.3 % High <5.7 [facility] Comment on above: Normal < 5.7 % Predi abetic 5.7 - 6.4 % Diabetic >or= 6.5 % Please note range changes. Potassium measurement (mass/ volume)Ordered By: Donato Sepulveda on 12-29-2024 Potassium (Unsp spec) [Mass/Vol] 5.2 mmol/L High 3.3-5.1 [facility] Serum creatinine measurement (mass/volume)Ordered By: Donato Sepulveda on 12-29-2024 Creatinine [Mass/Vol] 0.74 mg/dL 0.70-1.20 [facility] Serum glucose measurement (m ass/volume)Ordered By: Donato Sepulveda on 12-29-2024 Glucose [Mass/Vol] 336 mg/dL High 70-[address] [facility] Serum or plasma calcium serge urement (mass/volume)Ordered By: Livierstudyanchar Lombardirjnoris on 12-29-2024 Calcium [Mass/Vol] 9.4 mg/dL 7.6-11.[address] [facility] Serum or plasma urea nitroge n measurement (mass/volume)Ordered By: Donato Sepulveda on 12-29-2024 Urea nitrogen [Mass/Vol] 14 mg/dL 4-19 [facility] Sodium levelOrdered By: Raul medrnao Harjitrjnoris on 12-29-2024 Sodium [Moles/Vol] 135 mmol/L 133-[address] [facility] Hemoglobin A1c percentageOrd ered By: Livierstudyanchar Lombardirjnoris on 12-08-2024 HbA1c (Bld) [Mass fraction] 10.2 % High <5.7 [facility] Comment on above: Normal < 5.7 % Predi abetic 5.7 - 6.4 % Diabetic >or= 6.5 % Please note range changes. Culture, Blood (WB)on 2024 CUB Blood cultures x2, from two different sites No growth in 5 days. Normal [facility] Comment on above: Performed By: #### L 501.080 #### [facility] [address] [facility] [address] Bedside Glucoseon 10-20-2024 FINGERSTICK GLU 200 mg/dL High 74-106 [facility] Comment on above: Result Comment: JEWELS GEMENT OF PATIENT CARE PER NURSING PROTOCOL Performed By: #### L 501.080 #### [facility] [address] [facility] [address] FINGERSTICK GLU 296 mg/dL High 74-106 [facility] Comment on above: Result Comment: JEWELS GEMENT OF PATIENT CARE PER NURSING PROTOCOL Performed By: #### L 501.080 #### [facility] [address] [facility] [id number] FINGERSTICK GLU 154 mg/dL High 74-106 [facility] Comment on above: Result Comment: JEWELS RAJPUT OF PATIENT CARE PER NURSING PROTOCOL Performed By: #### L 501.080 #### [facility] [address] [place], [place], [id number] [facility] deOrdered By: Ángel Lam on 10-20-2024 Glucose [Mass/Vol] 200 mg/dL High 74-[address] [facility] Comment on above: MANAGEMENT OF PATIEN T CARE PER NURSING PROTOCOL Urine Cultureon 10-20-2024 URC Escherichia coli [place] Count 50,000-80,000 Escherichia coli: REACTION Ampicillin Islt [...] TMP SMX Islt BRANDEE <=20 S Normal [facility] Comment on above: Performed By: #### L 501.080 #### [facility] [address] [place], [place], [id number] Absolute lymphocyte countOrd ered By: Anali Coello on 10-19-2024 Lymphocytes Auto (Unsp spec) [#/Vol] 1.48 10*3/uL 0.83-4.51 [facility] Absolute neutrophil countOrd ered By: Anali Coello on 10-19-2024 Neutrophils (Bld) [#/Vol] 4.8 10*3/uL 2.0-7.7 [facility] Anion gap in Serum or Plasma Ordered By: Anali Coello on 10-19-2024 Anion gap [Moles/Vol] 10 mmol/L 5-15 [facility] Automated lymphocyte count a s percentage of total leukocytesOrdered By: Anali Coello on 10-19-2024 Lymphocytes/100 WBC Auto (Unsp spec) 21.5 % 19-41 [facility] BUN/creatinine ratioOrdered By: Anali Coello on 10-19-2024 Urea nitrogen/Creatinine [Mass ratio] 11.3 mg/mg 10-20 [facility] Basophil percentageOrdered B y: Anali Coello on 10-19-2024 Basophils/100 WBC (Bld) 0.3 % 0-1 [facility] Bedside Glucoseon 10-19-2024 FINGERSTICK GLU 313 mg/dL High 74-106 [facility] Comment on above: Result Comment: JEWELS GEMENT OF PATIENT CARE PER NURSING PROTOCOL Performed By: #### L 501.080 #### [facility] [address] [place], [address] FINGERSTICK GLU 291 mg/dL High [address] [place] [address] Comment on above: Result Comment: JEWELS GEMENT OF PATIENT CARE PER NURSING PROTOCOL Performed By: #### L 501.080 #### [facility] [address] [place], [address] FINGERSTICK GLU 220 mg/dL High [address] [facility] Comment on above: Result Comment: JEWELS GEMENT OF PATIENT CARE PER NURSING PROTOCOL Performed By: #### L 501.080 #### [facility] [address] [place], [address] FINGERSTICK GLU 132 mg/dL High [address] [facility] Comment on above: Result Comment: JEWELS GEMENT OF PATIENT CARE PER NURSING PROTOCOL Performed By: #### L 501.080 #### [facility] [address] [place], [address] FINGERSTICK GLU 112 mg/dL High [facility]106 [facility] Comment on above: Result Comment: JEWELS GEMENT OF PATIENT CARE PER NURSING PROTOCOL Performed By: #### L 501.080 #### [facility] [address] [place] [place], [address] FINGERSTICK GLU 177 mg/dL High -106 [facility] Comment on above: Result Comment: JEWELS GEMENT OF PATIENT CARE PER NURSING PROTOCOL Performed By: #### L 501.080 #### [facility] [address] [place], [address] FINGERSTICK GLU 170 mg/dL High 74-106 [facility] Comment on above: Result Comment: JEWELS GEMENT OF PATIENT CARE PER NURSING PROTOCOL Performed By: #### L 501.080 #### [facility] [address] [place], [address] FINGERSTICK GLU 135 mg/dL High 74-106 [facility] Comment on above: Result Comment: JEWELS GEMENT OF PATIENT CARE PER NURSING PROTOCOL Performed By: #### L 501.080 #### [facility] [address] [place], [address] Bilirubin, totalOrdered By: Anali Coello on 10-19-2024 Bilirubin [Mass/Vol] 0.42 mg/dL 0.00-1.30 [facility] CBC W/Diff, Automatedon 10-04 Absolute Lymph 1.48 X10 3/uL Normal 0.83-4.51 [facility] Comment on above: Performed By: #### L 501.080 #### [facility] [address] [place], [address] Absolute Neut 4.8 X10 3/uL Normal 2.0-7.7 [facility] Comment on above: Performed By: #### L 501.080 #### [facility] [address] [place], [address] Basophils/100 WBC (Bld) 0.3 % Normal 0-1 [facility] Comment on above: Performed By: #### L [id number] #### [facility] [address] [place], [address] Eosinophils/100 WBC (Bld) 0.6 % Normal 0-5 [facility] Comment on above: Performed By: #### L [id number] #### [facility] [address] [place], [address] Erythrocyte distribution width (RBC) [Ratio] 12.9 % Normal 11.6-14.6 [facility] Comment on above: Performed By: #### L [id number] #### [facility] [address] [place], [address] Hematocrit (Bld) [Volume fraction] 38.0 % Normal 37-47 [facility] Comment on above: Performed By: #### L 501.080 #### [facility] [address] [place], [address] Hemoglobin (Bld) [Mass/Vol] 12.4 g/dL Normal 12.0-15.0 [facility] Comment on above: Performed By: #### L 501.080 #### [facility] [address] [place], [address] IG% 0.300 Normal 0.0-0.9 [facility] Comment on above: Result Comment: IG% - Immature Granulocytes (promyelocytes, myelocytes and metamyelocytes) > 1% indicates that a LEFT SHIFT is Present. Performed By: #### L 501.080 #### [facility] [address] [place], [address] Lymphocytes/100 WBC (Bld) 21.5 % Normal 19-41 [facility] Comment on above: Performed By: #### L 501.080 #### [facility] [address] [place], [address] MCH (RBC) [Entitic mass] 29.7 pg Normal 27.0-32.0 [facility] Comment on above: Performed By: #### L 501.080 #### [facility] [address] [place], [address] MCHC (RBC) [Mass/Vol] 32.6 g/dL Normal 32-36 [facility] Comment on above: Performed By: #### L 501.080 #### [facility] [address] [place], [address] MCV (RBC) [Entitic vol] 90.9 fL Normal 81-99 [facility] Comment on above: Performed By: #### L 501.080 #### [facility] [address] [place], [address] Monocytes/100 WBC (Bld) 7.3 % Normal 0-10 [facility] Comment on above: Performed By: #### L 501.080 #### [facility] [address] [place], [address] Neutrophils/100 WBC (Bld) 70.0 % Normal 47-70 [facility] Comment on above: Performed By: #### L 501.080 #### [facility] [address] [place], [address] Nucleated RBC (Bld) [#/Vol] 0 10*3/uL Normal 0-5 [facility] Comment on above: Performed By: #### L [id number] #### [facility] [address] [place], [address] Platelet mean volume (Bld) [Entitic vol] 9.4 fL Normal 6.2-12.0 [facility] Comment on above: Performed By: #### L [id number] #### [facility] [address] [place], [address] Platelets (Bld) [#/Vol] 181 10*3/uL Normal 150-450 [facility] Comment on above: Performed By: #### L 501.080 #### [facility] [address] [place], [address] RBC (Bld) [#/Vol] 4.18 10*6/uL Low 4.2-5.4 [facility] Comment on above: Performed By: #### L 501.080 #### [facility] [address] [place], [address] RDW SD 42.5 fl Normal 35.1-43.9 [facility] Comment on above: Performed By: #### L 501.080 #### [facility] [address] [place], [address] WBC (Bld) [#/Vol] 6.9 10*3/uL Normal 4.4-11.[address] [facility] Comment on above: Performed By: #### L 501.080 #### [facility] [address] [place], [address] Carbon dioxide, total [Moles /volume] in Central venous bloodOrdered By: Anali Coello on 10-19-2024 CO2 [Moles/Vol] 23.7 mmol/L 21.0-32.0 [facility] Chloride assayOrdered By: Medina Coello on 10-19-2024 Chloride [Moles/Vol] 103 mmol/L 98-108 [facility] Comprehensive Metabolic Prof ilon 10-19-2024 Albumin [Mass/Vol] 3.6 g/dL Normal 3.4-4.[address] [facility] Comment on above: Performed By: #### L 501.080 #### [facility] [address] [place], [address] Albumin/Globulin [Mass ratio] 1.5 {ratio} Normal 0.9-2.4 [facility] Comment on above: Performed By: #### L 501.080 #### [facility] [address] [place], [address] ALK PHOS 44 U/L Normal 35-104 [facility] Comment on above: Performed By: #### L 501.080 #### [facility] [address] [place], [address] ALT [Catalytic activity/Vol] 9 U/L Normal <=34 [facility] Comment on above: Performed By: #### L 501.080 #### [facility] [address] [place], [address] AST [Catalytic activity/Vol] 24 U/L Normal <=31 [facility] Comment on above: Performed By: #### L 501.080 #### [facility] [address] [place], [address] Bilirubin [Mass/Vol] 0.42 mg/dL Normal 0.00-1.30 [facility] Comment on above: Performed By: #### L 501.080 #### [facility] [address] [place], [address] BUN/CRE 11.3 RATIO Normal 10-20 [facility] Comment on above: Performed By: #### L 501.080 #### [facility] [address] [place], [address] Calcium [Mass/Vol] 8.7 mg/dL Normal 7.6-11.[address] [facility] Comment on above: Performed By: #### L 501.080 #### [facility] [address] [place], [address] Chloride [Moles/Vol] 103 mmol/L Normal 98-108 [facility] Comment on above: Performed By: #### L 501.080 #### [facility] [address] [place], [address] CO2 [Moles/Vol] 23.7 mmol/L Normal 21.0-32.0 [facility] Comment on above: Performed By: #### L 501.080 #### [facility] [address] [place], [address] Creatinine [Mass/Vol] 0.55 mg/dL Low 0.70-1.20 [facility] Comment on above: Performed By: #### L 501.080 #### [facility] [address] [place], [address] ECRCL 45.71 ml/min Low 50-250 [facility] Comment on above: Performed By: #### L 501.080 #### [facility] [address] [place], [address] GAP 10 Normal 5-15 [facility] Comment on above: Performed By: #### L 501.080 #### [facility] [address] [place], [address] GFR/1.73 sq M.predicted among non-blacks MDRD (S/P/Bld) [Vol rate/Area] 92 mL/min/{1.73_m2} Normal >60 [facility] Comment on above: Result Comment: mL/m in/1.73m2 CKD-EPI Creatinine Equation (2020) Performed By: #### L 501.080 #### [facility] [address] [place], [address] Globulin (S) [Mass/Vol] 2.4 g/dL Normal 2.2-4.2 [facility] Comment on above: Performed By: #### L [id number] #### [facility] [address] [place], [address] Glucose [Mass/Vol] 132 mg/dL High 70-[address] [facility] Comment on above: Performed By: #### L [id number] #### [facility] [address] [place], [address] Potassium [Moles/Vol] 4.6 mmol/L Normal 3.3-5.1 [facility] Comment on above: Performed By: #### L [id number] #### [facility] [address] [place], [place], [address] Sodium [Moles/Vol] 136 mmol/L Normal 133-[address] [facility] Comment on above: Performed By: #### L 501.080 #### [facility] [address] [place], [place], [address] T PROT 6.0 g/dL Normal 5.9-8.4 [facility] Comment on above: Performed By: #### L [id number] #### [facility] [address] [place], [place], [address] Urea nitrogen [Mass/Vol] 6 mg/dL Normal 4-19 [facility] Comment on above: Performed By: #### L 501.080 #### [facility] [address] [place], [place], [id number] Eosinophil percentageOrdered By: Anali Coello on 10-19-2024 Eosinophils/100 WBC (Bld) 0.6 % 0-5 [facility] Erythrocyte distribution wid th ratioOrdered By: Anali Coello on 10-19-2024 Erythrocyte distribution width (RBC) [Ratio] 12.9 % 11.6-14.6 [facility] Erythrocyte distribution wid th standard deviationOrdered By: Anali Coello on 10-19-2024 Erythrocyte distribution width (RBC) [Ratio] 42.5 fl 35.1-43.9 [facility] Glomerular filtration rate ( GFR) estimation/1.73 sq m using serum, plasma, or whole bOrdered By: Anali Coello on 10-19-2024 GFR/1.73 sq M.predicted among non-blacks MDRD (S/P/Bld) [Vol rate/Area] 92 mL/min/{1.73_m2} >60 [facility] Comment on above: mL/min/1.73m2 CKD-EP I Creatinine Equation (2020) Hematocrit Auto (Bld) [Volum e fraction]Ordered By: Anali Coello on 10-19-2024 Hematocrit (Bld) [Volume fraction] 38.0 % 37-47 [facility] Hemoglobin measurementOrdere d By: Anali Coello on 10-19-2024 Hemoglobin (Bld) [Mass/Vol] 12.4 g/dL 12.0-15.0 [facility] Immature granulocytes/100 WB C Auto (Bld)Ordered By: Anali Coello on 10-19-2024 Immature granulocytes/100 WBC (Bld) 0.300 % 0.0-0.9 [facility] Comment on above: IG% - Immature Granu locytes (promyelocytes, myelocytes and metamyelocytes) > 1% indicates that a LEFT SHIFT is Present. Laboratory - Chemistry and C hemistry - challengeOrdered By: Anali Coello on 10-19-2024 AST [Catalytic activity/Vol] 24 U/L <32 [facility] Lactic Acidon 10-19-2024 Lactate [Moles/Vol] 1.4 mmol/L Normal 0.0-2.0 [facility] Comment on above: Performed By: #### L 501.080 #### [facility] [address] [place], [place], [id number] Lactic acid measurementOrder ed By: Zoltan Garcia on 10-19-2024 Lactate [Moles/Vol] 1.4 mmol/L 0.0-2.0 [facility] MCV (mean corpuscular volume ) determinationOrdered By: Anali Coello on 10-19-2024 MCV (RBC) [Entitic vol] 90.9 fL 81-99 [facility] Magnesiumon 10-19-2024 Magnesium [Mass/Vol] 1.7 mg/dL Normal 1.5-2.2 [facility] Comment on above: Performed By: #### L 501.080 #### [facility] [address] [place], [address] Magnesium measurement (mass/ volume)Ordered By: Anali Coello on 10-19-2024 Magnesium (Unsp spec) [Mass/Vol] 1.7 mg/dL 1.5-2.2 [facility] Mean corpuscular hemoglobin (MCH) determinationOrdered By: Anali Coello on 10-19-2024 MCH (RBC) [Entitic mass] 29.7 pg 27.0-32.0 [facility] Mean corpuscular hemoglobin concentration (MCHC) determinationOrdered By: Anali Coello on 10-19-2024 MCHC (RBC) [Mass/Vol] 32.6 g/dL 32-36 [facility] Mean platelet volume determi nationOrdered By: Anali Coello on 10-19-2024 Platelet mean volume (Bld) [Entitic vol] 9.4 fL 6.2-12.0 [facility] Monocyte percentageOrdered B y: Anali Coello on 10-19-2024 Monocytes/100 WBC (Bld) 7.3 % 0-10 [facility] Neutrophil percentageOrdered By: Anali Coello on 10-19-2024 Neutrophils/100 WBC (Bld) 70.0 % 47-70 [facility] Nucleated red blood cell per centageOrdered By: Anali Coello on 10-19-2024 Nucleated RBC/100 WBC (Bld) [Ratio] 0 % 0-5 [facility] Phosphoruson 10-19-2024 Phosphate [Mass/Vol] 2.8 mg/dL Normal 2.7-4.5 [facility] Comment on above: Performed By: #### L 501.080 #### [facility] [address] [place], [place] [address] [place], [address] Platelet countOrdered By: Medina Coello on 10-19-2024 Platelets (Bld) [#/Vol] 181 10*3/uL 150-450 [facility] Potassium measurement (mass/ volume)Ordered By: Anali Ceollo on 10-19-2024 Potassium (Unsp spec) [Mass/Vol] 4.6 mmol/L 3.3-5.1 [facility] RBC Auto (Bld) [#/Vol]Ordere d By: Anali Coello on 10-19-2024 RBC (Bld) [#/Vol] 4.18 10*6/uL Low 4.2-5.4 [facility] Serum creatinine measurement (mass/volume)Ordered By: Anali Coello on 10-19-2024 Creatinine [Mass/Vol] 0.55 mg/dL Low 0.70-1.20 [facility] Serum globulin measurementOr dered By: Anali Coello on 10-19-2024 Globulin (S) [Mass/Vol] 2.4 g/dL 2.2-4.2 [facility] Serum glucose measurement (m ass/volume)Ordered By: Anali Coello on 10-19-2024 Glucose [Mass/Vol] 132 mg/dL High 70-[address] [facility] Serum or plasma alanine rivera otransferase (ALT) measurementOrdered By: Anali Coello on 10-19-2024 ALT [Catalytic activity/Vol] 9 U/L <35 [facility] Serum or plasma albumin serge urement (mass/volume)Ordered By: Anali Coello on 10-19-2024 Albumin [Mass/Vol] 3.6 g/dL 3.4-4.[address] [facility] Serum or plasma albumin/glob ulin mass ratioOrdered By: Anali Coello on 10-19-2024 Albumin/Globulin [Mass ratio] 1.5 {ratio} 0.9-2.4 [facility] Serum or plasma alkaline stephane sphatase measurementOrdered By: Anali Coello on 10-19-2024 ALP [Catalytic activity/Vol] 44 U/L 35-104 [facility] Serum or plasma calcium serge urement (mass/volume)Ordered By: Anali Coello on 10-19-2024 Calcium [Mass/Vol] 8.7 mg/dL 7.6-11.[address] [facility] Serum or plasma urea nitroge n measurement (mass/volume)Ordered By: Anali Coello on 10-19-2024 Urea nitrogen [Mass/Vol] 6 mg/dL 4-19 [facility] Sodium levelOrdered By: Kayleen Coello on 10-19-2024 Sodium [Moles/Vol] 136 mmol/L 133-[address] [facility] TSH DL <= 0.005 mIU/L QnOrde red By: Anali Coello on 10-19-2024 TSH Qn 1.130 uIU/mL 0.300-4.200 [facility] Thyroid Stim Hormone (TSH)on 10-19-2024 TSH 1.130 uIU/mL Normal 0.300-4.200 [facility] Comment on above: Performed By: #### L 501.080 #### [facility] [address] [place], [place], [id number] Total proteinOrdered By: Connie Coello on 10-19-2024 Protein [Mass/Vol] 6.0 g/dL 5.9-8.[address] [facility] White blood cell (WBC) count Ordered By: Anali Coello on 10-19-2024 WBC (Bld) [#/Vol] 6.9 10*3/uL 4.4-11.[address] [facility] Absolute lymphocyte countOrd ered By: Zoltan Garcia on 10-18-2024 Lymphocytes Auto (Unsp spec) [#/Vol] 0.94 10*3/uL 0.83-4.51 [facility] Absolute neutrophil countOrd ered By: Zoltan Garcia on 10-18-2024 Neutrophils (Bld) [#/Vol] 17.9 10*3/uL High 2.0-7.7 [facility] Anion gap in Serum or Plasma Ordered By: Zoltan Garcia on 10-18-2024 Anion gap [Moles/Vol] 17 mmol/L High 5-15 [facility] Automated lymphocyte count a s percentage of total leukocytesOrdered By: Zoltan Garcia on 10-18-2024 Lymphocytes/100 WBC Auto (Unsp spec) 4.7 % Low 19-41 [facility] BUN/creatinine ratioOrdered By: Zoltan Garcia on 10-18-2024 Urea nitrogen/Creatinine [Mass ratio] 17.1 mg/mg 10-20 [facility] Basophil percentageOrdered B y: Zoltan Garcia on 10-18-2024 Basophils/100 WBC (Bld) 0.3 % 0-1 [facility] Bedside Glucoseon 10-18-2024 FINGERSTICK GLU 129 mg/dL High 74-106 [facility] Comment on above: Result Comment: JEWELS RAJPUT OF PATIENT CARE PER NURSING PROTOCOL Performed By: #### L 501.080 #### [facility] [address] [place], [address] FINGERSTICK GLU 119 mg/dL High 74-106 [facility] Comment on above: Result Comment: JEWELS GEMENT OF PATIENT CARE PER NURSING PROTOCOL Performed By: #### L 501.080 #### [facility] [address] [place], [address] FINGERSTICK GLU 98 mg/dL Normal 74-106 [facility] Comment on above: Result Comment: JEWELS GEMENT OF PATIENT CARE PER NURSING PROTOCOL Performed By: #### L 501.080 #### [facility] [address] [place], [address] FINGERSTICK GLU 72 mg/dL Low 74-106 [facility] Comment on above: Result Comment: JEWELS GEMENT OF PATIENT CARE PER NURSING PROTOCOL Performed By: #### L 501.080 #### [facility] [address] [place], [address] FINGERSTICK GLU 82 mg/dL Normal 74-106 [facility] Comment on above: Result Comment: JEWELS GEMENT OF PATIENT CARE PER NURSING PROTOCOL Performed By: #### L 501.080 #### [facility] [address] [place], [address] Bilirubin Test strip Ql (U)O rdered By: Zoltan Garcia on 10-18-2024 Bilirubin Ql (U) Negative Negative [facility] Bilirubin, totalOrdered By: Zoltan Garcia on 10-18-2024 Bilirubin [Mass/Vol] 0.33 mg/dL 0.00-1.30 [facility] Blood cultureOrdered By: Jackson Garcia on 10-18-2024 Bacteria identified Cx Nom (Bld) No growth in 5 days. [facility] Bacteria identified Cx Nom (Bld) No growth in 5 days. [facility] Brain/Head without Contrasto n 10-18-2024 Brain/Head without Contrast [facility] Imaging Services [address] [place] [address] Brain/Head without Contrast MR#: [id number] Acct: [id number] Name: JUSTUS CHINCHILLA Rep #: [id number] : 1940 F 84 From: Jorge Zurita PCP: Dr. Donato Sepulveda MD Status: REG ER Study: Brain/Head without Contrast Date of Exam: 10/04 09/27 Exam# [id number] Ordering Dr: Zoltan Garcia DO PROCEDURE: BRAIN/HEAD [...] hydrocephalus or significant midline shift. There is eldf-ub-mocfotca chronic microvascular ischemic changes and eldk-lu-hasktwep parenchymal volume loss. No acute, depressed calvarial fractures. Mild anterior frontal scalp swelling. Bilateral lens surgeries. CT/Brain/Head without Contrast IMPRESSION: No acute intracranial process. Mild anterior frontal scalp swelling. No acute calvarial defect. Reading Location: [facility] CC: Dr. Zoltna Garcia DO; Dr. 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, [address] Absolute Neut 17.9 X10 3/uL High 2.0-7.7 [facility] Comment on above: Performed By: #### L 501.080 #### [facility] [address] [place], [address] Basophils/100 WBC (Bld) 0.3 % Normal 0-1 [facility] Comment on above: Performed By: #### L 501.080 #### [facility] [address] [place], [address] Eosinophils/100 WBC (Bld) 0.1 % Normal 0-5 [facility] Comment on above: Performed By: #### L 501.080 #### [facility] [address] [place], [address] Erythrocyte distribution width (RBC) [Ratio] 12.9 % Normal 11.6-14.6 [facility] Comment on above: Performed By: #### L 501.080 #### [facility] [address] [place], [address] Hematocrit (Bld) [Volume fraction] 48.0 % High 37-47 [facility] Comment on above: Performed By: #### L 501.080 #### [facility] [address] [place], [address] Hemoglobin (Bld) [Mass/Vol] 15.5 g/dL High 12.0-15.0 [facility] Comment on above: Performed By: #### L 501.080 #### [facility] [address] [place], [address] IG% 0.700 Normal 0.0-0.9 [facility] Comment on above: Result Comment: IG% - Immature Granulocytes (promyelocytes, myelocytes and metamyelocytes) > 1% indicates that a LEFT SHIFT is Present. Performed By: #### L 501.080 #### [facility] [address] [place], [address] Lymphocytes/100 WBC (Bld) 4.7 % Low 19-41 [facility] Comment on above: Performed By: #### L 501.080 #### [facility] [address] [place], [address] MCH (RBC) [Entitic mass] 29.4 pg Normal 27.0-32.0 [facility] Comment on above: Performed By: #### L 501.080 #### [facility] [address] [place], [address] MCHC (RBC) [Mass/Vol] 32.3 g/dL Normal 32-36 [facility] Comment on above: Performed By: #### L 501.080 #### [facility] [address] [place], [address] MCV (RBC) [Entitic vol] 90.9 fL Normal 81-99 [facility] Comment on above: Performed By: #### L 501.080 #### [facility] [address] [place], [address] Monocytes/100 WBC (Bld) 4.8 % Normal 0-10 [facility] Comment on above: Performed By: #### L 501.080 #### [facility] [address] [place], [address] Neutrophils/100 WBC (Bld) 89.4 % High 47-70 [facility] Comment on above: Performed By: #### L 501.080 #### [facility] [address] [place], [address] Nucleated RBC (Bld) [#/Vol] 0 10*3/uL Normal 0-5 [facility] Comment on above: Performed By: #### L 501.080 #### [facility] [address] [place], [address] Platelet mean volume (Bld) [Entitic vol] 10.2 fL Normal 6.2-12.0 [facility] Comment on above: Performed By: #### L 501.080 #### [facility] [address] [place], [address] Platelets (Bld) [#/Vol] 326 10*3/uL Normal 150-450 [facility] Comment on above: Performed By: #### L 501.080 #### [facility] [address] [place], [address] RBC (Bld) [#/Vol] 5.28 10*6/uL Normal 4.2-5.4 [facility] Comment on above: Performed By: #### L 501.080 #### [facility] [address] [place], [address] RDW SD 43.0 fl Normal 35.1-43.9 [facility] Comment on above: Performed By: #### L 501.080 #### [facility] [address] [place], [address] WBC (Bld) [#/Vol] 20.0 10*3/uL High 4.4-11.0 [facility] Comment on above: Performed By: #### L 501.080 #### [facility] [address] [place], [address] Carbon dioxide, total [Moles /volume] in Central venous bloodOrdered By: Zoltan Garcia on 10-18-2024 CO2 [Moles/Vol] 24.5 mmol/L 21.0-32.0 [facility] Chloride assayOrdered By: Bin Garcia on 10-18-2024 Chloride [Moles/Vol] 102 mmol/L 98-108 [facility] Emergency Department Summary on 10-18-2024 Emergency Department Summary [facility] Records Department [address] [place] [address] Emergency Department Summary 10/18/24 MR#: [id number] Acct: [id number] Name: JUSTUS CHINCHILLA Rep #: [id number] : 1940 84 From: Zoltan Garcia DO PCP: Dr. Donato Sepulveda MD Status:ADM IN Location: [place] [id number] HPI HPI - Fall History of Present [...] takes oral hypoglycemics as well as insulin. [facility] Medical History (Updated 10/18/24 @ 21:59 by [...] History (Revie (more content not included)... Normal [facility] Eosinophil percentageOrdered By: Zoltan Garcia on 10-18-2024 Eosinophils/100 WBC (Bld) 0.1 % 0-5 [facility] Erythrocyte distribution wid th ratioOrdered By: Zoltan Garcia on 10-18-2024 Erythrocyte distribution width (RBC) [Ratio] 12.9 % 11.6-14.6 [facility] Erythrocyte distribution wid th standard deviationOrdered By: Zoltan Garcia on 10-18-2024 Erythrocyte distribution width (RBC) [Ratio] 43.0 fl 35.1-43.9 [facility] Glomerular filtration rate ( GFR) estimation/1.73 sq m using serum, plasma, or whole bOrdered By: Zoltan Garcia on 10-18-2024 GFR/1.73 sq M.predicted among non-blacks MDRD (S/P/Bld) [Vol rate/Area] 88 mL/min/{1.73_m2} >60 [facility] Comment on above: mL/min/1.73m2 CKD-EP I Creatinine Equation (2020) [facility]dered By: Anali Coello on 10-18-2024 Glucose [Mass/Vol] 129 mg/dL High 74-[address] [facility] Comment on above: MANAGEMENT OF PATIEN T CARE PER NURSING PROTOCOL H AND P Exam - Hospitaliston 10-18-2024 H&P Exam - Hospitalist [facility] Medical Records Department [address] [place] [address] H P Exam - Hospitalist 10/18/242107 MR#: [id number] Acct: [id number] Name: JUSTUS CHINCHILLA Rep #: [id number] : 1940 84 From: Anali Coello DO PCP: Dr. Donato Sepulveda MD Status:ADM IN Location: [place] [id number] HPI - General General Date of Admission: 10/18/24 Date of Service: 10/18/24 Chief Complaint: Fall/altered mental status HPI Narrative JUSTUS CHINCHILLA, is a 84 F who presented to the emergency department at [facility] on 10/18/2024 with chief complaint of [...] she was close to her baseline mentation. [facility] Medical History (Updated 10/18/24 @ 21:59 [...] H i (more content not included)... Normal [facility] Hematocrit Auto (Bld) [Volum e fraction]Ordered By: Zoltan Garcia on 10-18-2024 Hematocrit (Bld) [Volume fraction] 48.0 % High 37-47 [facility] Hemoglobin measurementOrdere d By: Zoltan Garcia on 10-18-2024 Hemoglobin (Bld) [Mass/Vol] 15.5 g/dL High 12.0-15.0 [facility] Immature granulocytes/100 WB C Auto (Bld)Ordered By: Zoltan Garcia on 10-18-2024 Immature granulocytes/100 WBC (Bld) 0.700 % 0.0-0.9 [facility] Comment on above: IG% - Immature Granu locytes (promyelocytes, myelocytes and metamyelocytes) > 1% indicates that a LEFT SHIFT is Present. International normalized rat io (INR) calculationOrdered By: Zoltan Garcia on 10-18-2024 INR Coag (Bld) [Relative time] 1.0 {INR} [facility] Ketones Test strip Ql (U)Ord ered By: Zoltan Garcia on 10-18-2024 Ketones Ql (U) Negative Negative [facility] - Chemistry and C hemistry - challengeOrdered By: Zoltan Garcia on 10-18-2024 AST [Catalytic activity/Vol] 34 U/L High <32 [facility] Lactic Acidon 10-18-2024 Lactate [Moles/Vol] 2.8 mmol/L Invalid Interpretation Code 0.0-2.0 [facility] Comment on above: Order Comment: Y Result Comment: Crit ical Result(s) Called at: 2123 by:??REKHA GARCIA TO ISAAC LEMUS Results read back by same. Performed By: #### L 501.080 #### [facility] [place], [address] Lactic acid measurementOrder ed By: Zoltan Garcia on 10-18-2024 Lactate [Moles/Vol] 2.8 mmol/L High 0.0-2.0 [facility] Comment on above: Critical Result(s) C alled at: 2123 by: REKHA LEMUS Results read back by same. MCV (mean corpuscular volume ) determinationOrdered By: Zoltan Garcia on 10-18-2024 MCV (RBC) [Entitic vol] 90.9 fL 81-99 [facility] Mean corpuscular hemoglobin (MCH) determinationOrdered By: Zoltan Garcia on 10-18-2024 MCH (RBC) [Entitic mass] 29.4 pg 27.0-32.0 [facility] Mean corpuscular hemoglobin concentration (MCHC) determinationOrdered By: Zoltan Garcia on 10-18-2024 MCHC (RBC) [Mass/Vol] 32.3 g/dL 32-36 [facility] Mean platelet volume determi nationOrdered By: Zoltan Garcia on 10-18-2024 Platelet mean volume (Bld) [Entitic vol] 10.2 fL 6.2-12.0 [facility] Microscopic analysis of urin e for red blood cells (RBC)Ordered By: Zoltan Garcia on 10-18-2024 Microscopic analysis of urine for red blood cells (RBC) 0 SEEN /hpf 0-5 [facility] Monocyte percentageOrdered B y: Zoltan Garcia on 10-18-2024 Monocytes/100 WBC (Bld) 4.8 % 0-10 [facility] Mucus LM Ql (Urine sed)Order ed By: Zoltan Garcia on 10-18-2024 Mucus Ql (Urine sed) 0 SEEN /hpf [facility] Neutrophil percentageOrdered By: Zoltan Garcia on 10-18-2024 Neutrophils/100 WBC (Bld) 89.4 % High 47-70 [facility] Nitrite Test strip Ql (U)Ord ered By: Zoltan Garcia on 10-18-2024 Nitrite Ql (U) Positive High Negative [facility] Nucleated red blood cell per centageOrdered By: Zoltan Garcia on 10-18-2024 Nucleated RBC/100 WBC (Bld) [Ratio] 0 % 0-5 [facility] Platelet countOrdered By: Bin Garcia on 10-18-2024 Platelets (Bld) [#/Vol] 326 10*3/uL 150-450 [facility] Potassium measurement (mass/ volume)Ordered By: Zoltan Garcia on 10-18-2024 Potassium (Unsp spec) [Mass/Vol] 3.2 mmol/L Low 3.3-5.1 [facility] Protein Test strip Ql (U)Ord ered By: Zoltan Garcia on 10-18-2024 Protein Ql (U) 30 mg/dl High Negative [facility] Prothrombin Time w/INRon INR Coag (PPP) [Relative time] 1.0 {INR} Normal [facility] Comment on above: Performed By: #### L 501.080 #### [facility] [address] [place], [address] PT Coag (PPP) [Time] 13.4 s Normal 11.7-14.9 [facility] Comment on above: Performed By: #### L 501.080 #### [facility] [address] [place], [address] Prothrombin timeOrdered By: Zoltan Garcia on 10-18-2024 PT Coag (PPP) [Time] 13.4 s 11.7-14.9 [facility] RBC Auto (Bld) [#/Vol]Ordere d By: Zoltan aGrcia on 10-18-2024 RBC (Bld) [#/Vol] 5.28 10*6/uL 4.2-5.4 [facility] Serum creatinine measurement (mass/volume)Ordered By: Zoltan Garcia on 10-18-2024 Creatinine [Mass/Vol] 0.64 mg/dL Low 0.70-1.20 [facility] Serum globulin measurementOr dered By: Zoltan Garcia on 10-18-2024 Globulin (S) [Mass/Vol] 3.3 g/dL 2.2-4.2 [facility] Serum glucose measurement (m ass/volume)Ordered By: Zoltan Garcia on 10-18-2024 Glucose [Mass/Vol] 16 mg/dL Invalid Interpretation Code 70-99 [facility] Comment on above: Critical Result(s) C alled at: by: Results read back by same. Critical Result(s) Called at: 1854 by: REKHA GARCIA TO ERIN RUSSO Results read back by same.Previous reported result: 16 mg/dLEdited by: AUTOINShanel on 10/18/24:2200 AMENDED REPORT 10/18/242199 GLU previously [...] same. Performed By: #### L 501.080 #### [facility] [address] [place] [address]. [place], [place], [id number] Serum or plasma alanine rivera otransferase (ALT) measurementOrdered By: Zoltan Garcia on 10-18-2024 ALT [Catalytic activity/Vol] 13 U/L <35 [facility] Serum or plasma albumin serge urement (mass/volume)Ordered By: Zoltan Garcia on 10-18-2024 Albumin [Mass/Vol] 4.7 g/dL 3.4-4.[address] [facility] Serum or plasma albumin/glob ulin mass ratioOrdered By: Zoltan Garcia on 10-18-2024 Albumin/Globulin [Mass ratio] 1.4 {ratio} 0.9-2.4 [facility] Serum or plasma alkaline stephane sphatase measurementOrdered By: Zoltan Garcia on 10-18-2024 ALP [Catalytic activity/Vol] 60 U/L 35-104 [facility] Serum or plasma calcium serge urement (mass/volume)Ordered By: Zoltan Garcia on 10-18-2024 Calcium [Mass/Vol] 10.0 mg/dL 7.6-11.[address] [facility] Serum or plasma urea nitroge n measurement (mass/volume)Ordered By: Zoltan Garcia on 10-18-2024 Urea nitrogen [Mass/Vol] 11 mg/dL 4-19 [facility] Sodium levelOrdered By: Bebo Garcia on 10-18-2024 Sodium [Moles/Vol] 143 mmol/L 133-[address] [facility] Squamous epithelial cells de tection in urine sediment by light microscopyOrdered By: Zoltan Garcia on 10-18-2024 Epithelial cells.squamous LM Ql (Urine sed) 0-5 SEEN /hpf 5-10 [facility] Total proteinOrdered By: Jackson Garcia on 10-18-2024 Protein [Mass/Vol] 8.0 g/dL 5.9-8.[address] [facility] Urinalysis, Completeon 10-18 BACTERIA 4+ /hpf Normal None Seen [facility] Comment on above: Order Comment: ABEBE TER SPECIMEN Performed By: #### L 400.0001 #### [facility] [address] [place], [address] EPI,SQUAMOUS 0-5 SEEN Normal 5-10 [facility] Comment on above: Order Comment: ABEBE TER SPECIMEN Performed By: #### L [id number] #### [facility] [address] [place], [address] WBC 10-25 SEEN Normal 0-5 [facility] Comment on above: Order Comment: ABEBE TER SPECIMEN Performed By: #### L [id number] #### [facility] [address] [place], [address] Mucus Ql (Urine sed) 0 SEEN Normal [facility] Comment on above: Order Comment: ABEBE TER SPECIMEN Performed By: #### L [id number] #### [facility] [address] [place], [address] RBC 0 SEEN Normal 0-5 [facility] Comment on above: Order Comment: ABEBE TER SPECIMEN Performed By: #### L [id number] #### [facility] [address] [place], [place], [id number] Urine clarityOrdered By: Jackson Garcia on 10-18-2024 Clarity (U) Clear Clear [facility] Urine color determinationOrd ered By: Zoltan Garcia on 10-18-2024 Color (U) Yellow Yellow [facility] Urine cultureOrdered By: Jackson Garcia on 10-18-2024 Bacteria identified Cx Nom (U) Escherichia coli Abnormal [facility] Urine glucose detectionOrder ed By: Zoltan Garcia on 10-18-2024 Glucose Ql (U) 1000 mg/dl High Normal [facility] Urine leukocyte esterase det ection by dipstickOrdered By: Zoltan Garcia on 10-18-2024 Leukocyte esterase Test strip Ql (U) 25 /ul High Negative [facility] Urine pHOrdered By: Zoltan vela on 10-18-2024 pH (U) 6.5 [pH] 5.0 - 8.0 [facility] Urine sediment bacteria coun t by microscopy (number/high power field)Ordered By: Zoltan Garcia on 10-18-2024 Bacteria LM.HPF (Urine sed) [#/Area] 4 /[HPF] None Seen [facility] Urine specific gravity measu rementOrdered By: Zoltan Garcia on 10-18-2024 Specific gravity (U) [Rel density] 1.015 1.002-1.030 [facility] Urine urobilinogen measureme ntOrdered By: Zoltan Garcia on 10-18-2024 Urobilinogen Ql (U) Normal mg/dl Normal [facility] White blood cell (WBC) count Ordered By: Zoltan Garcia on 10-18-2024 WBC (Bld) [#/Vol] 20.0 10*3/uL High 4.4-11.0 [facility] White blood cell countOrdere d By: Zoltan Garcia on 10-18-2024 White blood cell count 10-25 SEEN /hpf 0-5 [facility] Anion gap in Serum or Plasma Ordered By: Donato Sepulveda on 10-06-2024 Anion gap [Moles/Vol] 10 mmol/L 5-15 [facility] BUN/creatinine ratioOrdered By: Donato Sepulveda on 10-06-2024 Urea nitrogen/Creatinine [Mass ratio] 21.9 mg/mg High 10-20 [facility] Bilirubin directOrdered By: Donato Sepulveda on 10-06-2024 Bilirubin.direct [Mass/Vol] 0.11 mg/dL 0.00-0.30 [facility] Bilirubin, totalOrdered By: Donato Sepulveda on 10-06-2024 Bilirubin [Mass/Vol] 0.24 mg/dL 0.00-1.30 [facility] Calculated very low density lipoprotein (VLDL) cholesterol measurementOrdered By: Donato Sepulveda on 10-06-2024 Calculated very low density lipoprotein (VLDL) cholesterol measurement 14 mg/dL 5-40 [facility] Carbon dioxide, total [Moles /volume] in Central venous bloodOrdered By: Donato Sepulveda on 10-06-2024 CO2 [Moles/Vol] 29.2 mmol/L 21.0-32.0 [facility] Chloride assayOrdered By: Livier Sepulveda on 10-06-2024 Chloride [Moles/Vol] 99 mmol/L 98-108 [facility] Erythrocyte distribution wid th ratioOrdered By: Donato Sepulveda on 10-06-2024 Erythrocyte distribution width (RBC) [Ratio] 12.8 % 11.6-14.6 [facility] Erythrocyte distribution wid th standard deviationOrdered By: Donato Sepulveda on 10-06-2024 Erythrocyte distribution width (RBC) [Ratio] 43.8 fl 35.1-43.9 [facility] Glomerular filtration rate ( GFR) estimation/1.73 sq m using serum, plasma, or whole bOrdered By: Donato Sepulveda on 10-06-2024 GFR/1.73 sq M.predicted among non-blacks MDRD (S/P/Bld) [Vol rate/Area] 79 mL/min/{1.73_m2} >60 [facility] Comment on above: mL/min/1.73m2 CKD-EP I Creatinine Equation (2020) Hematocrit Auto (Bld) [Volum e fraction]Ordered By: Donato Sepulveda on 10-06-2024 Hematocrit (Bld) [Volume fraction] 37.1 % 37-47 [facility] Hemoglobin A1c percentageOrd ered By: Donato Sepulveda on 10-06-2024 HbA1c (Bld) [Mass fraction] 9.5 % High <5.7 [facility] Comment on above: Normal < 5.7 % Predi abetic 5.7 - 6.4 % Diabetic >or= 6.5 % Please note range changes. Hemoglobin measurementOrdere d By: Donato Sepulveda on 10-06-2024 Hemoglobin (Bld) [Mass/Vol] 11.9 g/dL Low 12.0-15.0 [facility] LDL calc ser/plasOrdered By: Donato Sepulveda on 10-06-2024 Cholesterol in LDL [Mass/Vol] 92 mg/dL [facility] Comment on above: Fbqvxcufvl=359-257 m g/dL & Higher Wxiu=652 mg/dL or greater Laboratory - Chemistry and C hemistry - challengeOrdered By: Donato Sepulveda on 10-06-2024 AST [Catalytic activity/Vol] 19 U/L <32 [facility] MCV (mean corpuscular volume ) determinationOrdered By: Donato Sepulveda on 10-06-2024 MCV (RBC) [Entitic vol] 92.8 fL 81-99 [facility] Mean corpuscular hemoglobin (MCH) determinationOrdered By: Donato Sepulveda on 10-06-2024 MCH (RBC) [Entitic mass] 29.8 pg 27.0-32.0 [facility] Mean corpuscular hemoglobin concentration (MCHC) determinationOrdered By: Donato Sepulveda on 10-06-2024 MCHC (RBC) [Mass/Vol] 32.1 g/dL 32-36 [facility] Mean platelet volume determi nationOrdered By: Donato Sepulveda on 10-06-2024 Platelet mean volume (Bld) [Entitic vol] 10.8 fL 6.2-12.0 [facility] Platelet countOrdered By: Livier Sepulveda on 10-06-2024 Platelets (Bld) [#/Vol] 182 10*3/uL 150-450 [facility] Potassium measurement (mass/ volume)Ordered By: Donato Sepulveda on 10-06-2024 Potassium (Unsp spec) [Mass/Vol] 4.3 mmol/L 3.3-5.1 [facility] RBC Auto (Bld) [#/Vol]Ordere d By: Donato Sepulveda on 10-06-2024 RBC (Bld) [#/Vol] 4.00 10*6/uL Low 4.2-5.4 [facility] Screening total cholesterol/ high density lipoprotein (HDL) cholesterol ratioOrdered By: Donato Sepulveda on 10-06-2024 Cholesterol.total/Gabby sterol in HDL [Mass ratio] 2.80 {ratio} [facility] Serum creatinine measurement (mass/volume)Ordered By: Donato Sepulveda on 10-06-2024 Creatinine [Mass/Vol] 0.75 mg/dL 0.70-1.20 [facility] Serum globulin measurementOr dered By: Donato Sepulveda on 10-06-2024 Globulin (S) [Mass/Vol] 2.3 g/dL 2.2-4.2 [facility] Serum glucose measurement (m ass/volume)Ordered By: Donato Sepulveda on 10-06-2024 Glucose [Mass/Vol] 232 mg/dL High 70-[address] [facility] Serum or plasma alanine rivera otransferase (ALT) measurementOrdered By: Donato Sepulveda on 10-06-2024 ALT [Catalytic activity/Vol] 8 U/L <35 [facility] Serum or plasma albumin serge urement (mass/volume)Ordered By: Donato Sepulveda on 10-06-2024 Albumin [Mass/Vol] 3.7 g/dL 3.4-4.[address] [facility] Serum or plasma alkaline stephane sphatase measurementOrdered By: Donato Sepulveda on 10-06-2024 ALP [Catalytic activity/Vol] 50 U/L 35-104 [facility] Serum or plasma calcium serge urement (mass/volume)Ordered By: Donato Sepulveda on 10-06-2024 Calcium [Mass/Vol] 9.1 mg/dL 7.6-11.[address] [facility] Serum or plasma cholesterol in HDL measurement (mass/volume)Ordered By: Donato Sepulveda on 10-06-2024 Cholesterol in HDL [Mass/Vol] 59 mg/dL >40 [facility] Comment on above: National Cholesterol Education Program (NCEP) guidelines:<40 mg/dL: Low HDL-cholesterol (major risk factor for CHD)>= 60 mg/dL: High HDL-cholesterol (negative risk factor for CHD)HDL-cholesterol is affected by a number of factors, e.g. smoking, exercise, hormones, sex and age. Serum or plasma cholesterol measurement (mass/volume)Ordered By: Donato Sepulveda on 10-06-2024 Cholesterol [Mass/Vol] 164 mg/dL <201 [facility] Comment on above: Cholesterol level, D esirable <200 mg/dLBorderline high cholesterol 200-239 mg/dLHigh cholesterol >=240 mg/dLRecommendations of the NCEP Adult Treatment Panel for the following risk-cutoff thresholds for the [place] population. Serum or plasma urea nitroge n measurement (mass/volume)Ordered By: Donato Sepulveda on 10-06-2024 Urea nitrogen [Mass/Vol] 16 mg/dL 4-19 [facility] Sodium levelOrdered By: Raul Sepulveda on 10-06-2024 Sodium [Moles/Vol] 138 mmol/L 133-[address] [facility] Total proteinOrdered By: Sherwin Sepulveda on 10-06-2024 Protein [Mass/Vol] 6.0 g/dL 5.9-8.[address] [facility] Triglycerides measurementOrd ered By: Donato Sepulveda on 10-06-2024 Triglyceride [Mass/Vol] 68 mg/dL <199 [facility] Comment on above: The drugs N-Acetylcy steine and Metamizole may falsely depress this assay. Normal range: <150 mg/dLBorderline High: 150-199 mg/dLHigh: 200-499 mg/dLVery High: >500 mg/dL White blood cell (WBC) count Ordered By: Donato Sepulveda on 10-06-2024 WBC (Bld) [#/Vol] 7.1 10*3/uL 4.4-11.[address] [facility] Hemoglobin A1c percentageOrd ered By: Donato Sepulveda on 09-08-2024 HbA1c (Bld) [Mass fraction] 8.8 % High <5.7 [facility] Comment on above: Normal < 5.7 % Predi abetic 5.7 - 6.4 % Diabetic >or= 6.5 % Please note range changes. Bedside Glucoseon 08-24-2024 FINGERSTICK GLU 240 mg/dL High 74-106 [facility] Comment on above: Result Comment: JEWELS RAJPUT OF PATIENT CARE PER NURSING PROTOCOL Performed By: #### L 501.080 #### [facility] [address] [facility] [place], [place], [address] Fluoro Guided Needle Placeme nton 08-24-2024 Fluoro Guided Needle Placement [facility] Imaging Services [address] [place], [place] [address] Fluoro Guided Needle Placement MR#: [id number] Acct: [id number] Name: RENÉEJUSTUS M Rep #: [id number] : 1940 F 84 From: Tomi metz MD PCP: Dr. Donato Sepulveda MD Status: [facility] Study: Fluoro Guided Needle Placement Date of Exam: 0 08/24/24 Exam# [id number] Ordering Dr: Armando Rich MD PROCEDURE: FLUORO GUIDED NEEDLE PLACEMENT 08/24/2024 REASON FOR EXAM: RT KNEE INJECTION TECHNIQUE: Intraoperative fluoroscopic services provided for right knee injection. 5.1 seconds of fluoroscopy. 0.85 mGy. 4 images were taken. COMPARISON: None FINDINGS: Intraoperative fluoroscopic services for knee injection. RAD/Fluoro Guided Needle Placement IMPRESSION: Fluoroscopic services provided for right knee injection. Reading Location: [place] [address] CC: Dr. Donato Sepulveda MD; Dr. 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 Comment on above: MANAGEMENT OF PATIEN T CARE PER NURSING PROTOCOL Operative Reporton Operative Report [facility] [address] [place] [address] Operative Report 08/24/24 0932 MR#: [id number] Acct: [id number] Name: JUSTUS CHINCHILLA Rep #: [id number] : 1940 84 From: Armando Rich MD PCP: Dr. 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 Donato Sepulveda MD; Dr. Armando Rich MD Signed Normal [facility] Absolute lymphocyte countOrd ered By: Donato Sepulveda on 07-15-2024 Lymphocytes Auto (Unsp spec) [#/Vol] 1.27 10*3/uL 0.83-4.51 [facility] Absolute neutrophil countOrd ered By: Donato Sepulveda on 07-15-2024 Neutrophils (Bld) [#/Vol] 4.2 10*3/uL 2.0-7.7 [facility] Anion gap in Serum or Plasma Ordered By: Donato Sepulveda on 07-15-2024 Anion gap [Moles/Vol] 12 mmol/L 5-15 [facility] Automated lymphocyte count a s percentage of total leukocytesOrdered By: Donato Sepulveda on 07-15-2024 Lymphocytes/100 WBC Auto (Unsp spec) 21.1 % 19-41 [facility] BUN/creatinine ratioOrdered By: Donato Sepulveda on 07-15-2024 Urea nitrogen/Creatinine [Mass ratio] 17.5 mg/mg 10-20 [facility] Basophil percentageOrdered B y: Donato Sepulveda on 07-15-2024 Basophils/100 WBC (Bld) 0.5 % 0-1 [facility] Bilirubin Test strip Ql (U)O rdered By: Donato Sepulveda on 07-15-2024 Bilirubin Ql (U) Negative Negative [facility] Bilirubin, totalOrdered By: Donato Sepulveda on 07-15-2024 Bilirubin [Mass/Vol] 0.31 mg/dL 0.00-1.30 [facility] Carbon dioxide, total [Moles /volume] in Central venous bloodOrdered By: Donato Sepulveda on 07-15-2024 CO2 [Moles/Vol] 28.3 mmol/L 21.0-32.0 [facility] Chloride assayOrdered By: Livier Sepulveda on 07-15-2024 Chloride [Moles/Vol] 98 mmol/L 98-108 [facility] Eosinophil percentageOrdered By: Donato Sepulveda on 07-15-2024 Eosinophils/100 WBC (Bld) 1.7 % 0-5 [facility] Erythrocyte distribution wid th (RBC) [Ratio]Ordered By: Donato Sepulveda on 07-15-2024 Erythrocyte distribution width (RBC) [Entitic vol] 43.9 fL 35.1-43.9 [facility] Erythrocyte distribution wid th ratioOrdered By: Donato Sepulveda on 07-15-2024 Erythrocyte distribution width (RBC) [Ratio] 13.2 % 11.6-14.6 [facility] Erythrocyte distribution wid th standard deviationOrdered By: Donato Sepulveda on 07-15-2024 Erythrocyte distribution width (RBC) [Ratio] 43.9 fl 35.1-43.9 [facility] GFR/1.73 sq M.predicted maxime g non-blacks MDRD (S/P/Bld) [Vol rate/Area]Ordered By: Donato Sepulveda on 07-15-2024 Estimated GFR (MDRD) Non-Af Amer 88 >60 [facility] Comment on above: mL/min/1.73m2 CKD-EP I Creatinine Equation (2020) Glomerular filtration rate ( GFR) estimation/1.73 sq m using serum, plasma, or whole bOrdered By: Donato Sepulveda on 07-15-2024 GFR/1.73 sq M.predicted among non-blacks MDRD (S/P/Bld) [Vol rate/Area] 88 mL/min/{1.73_m2} >60 [facility] Comment on above: mL/min/1.73m2 CKD-EP I Creatinine Equation (2020) Glucose Ql (U)Ordered By: Livier Sepulveda on 07-15-2024 Glucose (U) [Mass/Vol] 1000 mg/dL High Normal [facility] Hematocrit Auto (Bld) [Volum e fraction]Ordered By: Donato Sepulveda 07-15-2024 Hematocrit (Bld) [Volume fraction] 38.9 % 37-47 [facility] Hemoglobin measurementOrdere d By: Donato Sepulveda on 07-15-2024 Hemoglobin (Bld) [Mass/Vol] 12.6 g/dL 12.0-15.0 [facility] Immature granulocytes/100 WB C Auto (Bld)Ordered By: Donato Sepulveda on 07-15-2024 Immature granulocytes/100 WBC (Bld) 0.200 % 0.0-0.9 [facility] Comment on above: IG% - Immature Granu locytes (promyelocytes, myelocytes and metamyelocytes) > 1% indicates that a LEFT SHIFT is Present. Ketones Test strip Ql (U)Ord ered By: Galichar Lombardibryan on 07-15-2024 Ketones Ql (U) Negative Negative [facility] - Chemistry and C hemistry - challengeOrdered By: Livierstudyanchar Lombardirjnoris on 07-15-2024 AST [Catalytic activity/Vol] 18 U/L <32 [facility] Lymphocytes Auto (Unsp spec) [#/Vol]Ordered By: stufredericachar Harjitrjnoris on 07-15-2024 Lymphocytes (Bld) [#/Vol] 1.27 10*3/uL 0.83-4.51 [facility] Lymphocytes/100 WBC Auto (Un sp spec)Ordered By: Livierstudyanchar Lombardirjnoris on 07-15-2024 Lymphocytes/100 WBC (Bld) 21.1 % 19-41 [facility] MCV (mean corpuscular volume ) determinationOrdered By: stufredericachar Lombardirjnoris on 07-15-2024 MCV (RBC) [Entitic vol] 91.3 fL 81-99 [facility] Mean corpuscular hemoglobin (MCH) determinationOrdered By: [facility] Lombardirjnoris on 07-15-2024 MCH (RBC) [Entitic mass] 29.6 pg 27.0-32.0 [facility] Mean corpuscular hemoglobin concentration (MCHC) determinationOrdered By: stufredericachar Lombardirjnoris on 07-15-2024 MCHC (RBC) [Mass/Vol] 32.4 g/dL 32-36 [facility] Mean platelet volume determi nationOrdered By: stufredericachar Lombardirjnoris on 07-15-2024 Platelet mean volume (Bld) [Entitic vol] 10.7 fL 6.2-12.0 [facility] Monocyte percentageOrdered B y: Livierstudyanchar Sepulveda on 07-15-2024 Monocytes/100 WBC (Bld) 7.5 % 0-10 [facility] Neutrophil percentageOrdered By: Donato Sepulveda on 07-15-2024 Neutrophils/100 WBC (Bld) 69.0 % 47-70 [facility] Nitrite Test strip Ql (U)Ord ered By: Raulmarcela Harjitrjnoris on 07-15-2024 Nitrite Ql (U) Negative Negative [facility] Nucleated red blood cell per centageOrdered By: Donato Lombardirjnoris on 07-15-2024 Nucleated RBC/100 WBC (Bld) [Ratio] 0 % 0-5 [facility] Platelet countOrdered By: Livier Sepulveda on 07-15-2024 Platelets (Bld) [#/Vol] 188 10*3/uL 150-450 [facility] Potassium (Unsp spec) [Mass/ Vol]Ordered By: Donato Lombardirjnoris on 07-15-2024 Potassium [Moles/Vol] 4.3 mmol/L 3.3-5.1 [facility] Potassium measurement (mass/ volume)Ordered By: Donato Sepulveda on 07-15-2024 Potassium (Unsp spec) [Mass/Vol] 4.3 mmol/L 3.3-5.1 [facility] Protein Test strip Ql (U)Ord ered By: Rauldyanchar Lombardirjnoris on 07-15-2024 Protein Ql (U) Negative Negative [facility] RBC Auto (Bld) [#/Vol]Ordere d By: Rauldyanchar Lombardirjnoris on 07-15-2024 RBC (Bld) [#/Vol] 4.26 10*6/uL 4.2-5.4 [facility] Serum creatinine measurement (mass/volume)Ordered By: Donato Sepulveda on 07-15-2024 Creatinine [Mass/Vol] 0.65 mg/dL Low 0.70-1.20 [facility] Serum globulin measurementOr dered By: Donato Sepulveda on 07-15-2024 Globulin (S) [Mass/Vol] 2.6 g/dL 2.2-4.2 [facility] Serum glucose measurement (m ass/volume)Ordered By: Donato Sepulveda on 07-15-2024 Glucose [Mass/Vol] 322 mg/dL High 70-[address] [facility] Serum or plasma alanine rivera otransferase (ALT) measurementOrdered By: Donato Sepulveda on 07-15-2024 ALT [Catalytic activity/Vol] 9 U/L <35 [facility] Serum or plasma albumin serge urement (mass/volume)Ordered By: Donato Sepulveda on 07-15-2024 Albumin [Mass/Vol] 3.9 g/dL 3.4-4.[address] [facility] Serum or plasma albumin/glob ulin mass ratioOrdered By: Donato Sepulveda on 07-15-2024 Albumin/Globulin [Mass ratio] 1.5 {ratio} 0.9-2.4 [facility] Serum or plasma alkaline stephane sphatase measurementOrdered By: Donato Sepulveda on 07-15-2024 ALP [Catalytic activity/Vol] 59 U/L 35-104 [facility] Serum or plasma calcium serge urement (mass/volume)Ordered By: Donato Sepulveda on 07-15-2024 Calcium [Mass/Vol] 9.6 mg/dL 7.6-11.[address] [facility] Serum or plasma urea nitroge n measurement (mass/volume)Ordered By: Donato Sepulveda on 07-15-2024 Urea nitrogen [Mass/Vol] 11 mg/dL 4-19 [facility] Sodium levelOrdered By: Raul Sepulveda on 07-15-2024 Sodium [Moles/Vol] 138 mmol/L 133-[address] [facility] Total proteinOrdered By: Sheriwn Sepulveda on 07-15-2024 Protein [Mass/Vol] 6.6 g/dL 5.9-8.[address] [facility] Urine blood detectionOrdered By: Donato Sepulveda on 07-15-2024 Urine Occult Blood Negative Negative [facility] Urine clarityOrdered By: Sherwin Sepulveda on 07-15-2024 Clarity (U) Sl. Cloudy Clear [facility] Urine color determinationOrd ered By: Donato Sepulveda on 07-15-2024 Color (U) Yellow Yellow [facility] Urine cultureOrdered By: Sherwin Sepulveda on 07-15-2024 Bacteria identified Cx Nom (U) GNR lactose fourth officer Abnormal [facility] Bacteria identified Cx Nom (U) Staphylococcus epidermidis Abnormal [facility] Urine glucose detectionOrder ed By: Donato Sepulveda on 07-15-2024 Glucose Ql (U) 1000 mg/dl High Normal [facility] Urine leukocyte esterase det ection by dipstickOrdered By: Donato Sepulveda on 07-15-2024 Leukocyte esterase Test strip Ql (U) Negative Negative [facility] Urine pHOrdered By: Harvey Sepulveda on 07-15-2024 pH (U) 7.0 [pH] 5.0 - 8.0 [facility] Urine specific gravity measu rementOrdered By: Donato Sepulveda on 07-15-2024 Specific gravity (U) [Rel density] 1.010 1.002-1.030 [facility] Urine urobilinogen measureme ntOrdered By: Donato Sepulveda on 07-15-2024 Urobilinogen Ql (U) 1 mg/dl High Normal [facility] Urobilinogen Ql (U)Ordered B y: Donato Sepulveda on 07-15-2024 Urobilinogen (U) [Mass/Vol] 1 mg/dL High Normal [facility] White blood cell (WBC) count Ordered By: Donato Sepulveda on 07-15-2024 WBC (Bld) [#/Vol] 6.0 10*3/uL 4.4-11.[address] [facility] Vitamin D, 25-hydroxyOrdered By: Donato Sepulveda on 07-14-2024 Vitamin D 25-Hydroxy 33.9 ng/mL 30-100 [facility] Comment on above: Vitamin D StatusDefi ciency: <20 ng/mL (50nmol/L)Insufficiency: 20-30 ng/mL (50-75 nmol/L)Sufficiency: 30-100 ng/mL (75-250 nmol/L)Toxicity: >100 ng/mL (>250 nmol/L) Bilirubin Test strip Ql (U)O rdered By: Donato Sepulveda on 06-15-2024 Bilirubin Ql (U) Negative Negative [facility] Glucose Ql (U)Ordered By: Livier Sepulveda on 06-15-2024 Glucose (U) [Mass/Vol] 1000 mg/dL High Normal [facility] Ketones Test strip Ql (U)Ord ered By: Donato Sepulveda on 06-15-2024 Ketones Ql (U) Negative Negative [facility] Nitrite Test strip Ql (U)Ord ered By: Donato Sepulveda on 06-15-2024 Nitrite Ql (U) Negative Negative [facility] Protein Test strip Ql (U)Ord ered By: Donato Sepulveda on 06-15-2024 Protein Ql (U) Negative Negative [facility] Urine blood detectionOrdered By: Donato Sepulveda on 06-15-2024 Urine Occult Blood 150 /ul High Negative [facility] Urine clarityOrdered By: Sherwin Sepulveda on 06-15-2024 Clarity (U) Clear Clear [facility] Urine color determinationOrd ered By: Donato Sepulveda on 06-15-2024 Color (U) Yellow Yellow [facility] Urine cultureOrdered By: Sherwin Sepulveda on 06-15-2024 Bacteria identified Cx Nom (U) Mixed Gram Pos & Gram Neg Org Abnormal [facility] Urine glucose detectionOrder ed By: Donato Sepulveda on 06-15-2024 Glucose Ql (U) 1000 mg/dl High Normal [facility] Urine leukocyte esterase det ection by dipstickOrdered By: Donato Sepulveda on 06-15-2024 Leukocyte esterase Test strip Ql (U) 25 /ul High Negative [facility] Urine pHOrdered By: Harvey Sepulveda on 06-15-2024 pH (U) 6.0 [pH] 5.0 - 8.0 [facility] Urine specific gravity measu rementOrdered By: Donato Sepulveda on 06-15-2024 Specific gravity (U) [Rel density] 1.010 1.002-1.030 [facility] Urine urobilinogen measureme ntOrdered By: Donato Sepulveda on 06-15-2024 Urobilinogen Ql (U) Normal mg/dl Normal [facility] Urobilinogen Ql (U)Ordered B y: Donato Sepulveda on 06-15-2024 Urine Urobilinogen Normal mg/dl Normal [facility] Hemoglobin A1c percentageOrd ered By: Donato Sepulveda on 06-09-2024 HbA1c (Bld) [Mass fraction] 8.6 % High 3.8-5.6 [facility] Comment on above: Normal < 5.7 % Predi abetic 5.7 - 6.4 % Diabetic >or= 6.5 % Please note range changes. [id number] DOrdered By: Noris Sepulveda on 06-02-2024 Vitamin D 25-Hydroxy 53.0 ng/mL [facility] Comment on above: Vitamin D 25(OH) Sta tus Range Deficiency <20 ng/mL (50nmol/L) Insufficiency 20 - 30 ng/mL (50 - 75 nmol/L) Sufficiency 30 - 100 ng/mL (75 - 250 nmol/L) Toxicity >100 ng/mL (>250 nmol/L) [id number] DOrdered By: Noris Sepulveda on 04-21-2024 Vitamin D 25-Hydroxy 64.0 ng/mL [facility] Comment on above: Vitamin D 25(OH) Sta tus Range Deficiency <20 ng/mL (50nmol/L) Insufficiency 20 - 30 ng/mL (50 - 75 nmol/L) Sufficiency 30 - 100 ng/mL (75 - 250 nmol/L) Toxicity >100 ng/mL (>250 nmol/L) Basophil percentageOrdered B y: Donato Sepulveda on 08-06-2023 Bilirubin [Mass/Vol] 0.50 mg/dL 0.20-1.00 [facility] Comment on above: For patients on eltr ombopag therapy, use of Dimension [place] TBIL is not recommended. Chloride [Moles/Vol] 105 mmol/L 98-107 [facility] Glucose [Mass/Vol] 153 mg/dL 74-[address] [facility] Comment on above: Fasting Glucose resu lt greater than or equal to 126 mg/dL suggests DIABETES MELLITUS per A.D.A. criteria. Hemoglobin (Bld) [Mass/Vol] 12.4 g/dL 12.0-15.0 [facility] Potassium [Moles/Vol] 4.0 mmol/L 3.5-5.1 [facility] Protein [Mass/Vol] 6.7 g/dL 6.4-8.[address] [facility] Sodium [Moles/Vol] 139 mmol/L 136-[address] [facility] WBC (Bld) [#/Vol] 5.9 10*3/uL 4.4-11.[address] [facility] Determination of erythrocyte mean corpuscular volume (MCV)Ordered By: Donato Sepulveda on 08-06-2023 MCV (RBC) [Entitic vol] 92.5 fL 81-99 [facility] Erythrocyte distribution wid th ratioOrdered By: [facility] on 08-06-2023 Erythrocyte distribution width (RBC) [Ratio] 13.3 % 11.6-14.6 [facility] Erythrocyte distribution wid th standard deviationOrdered By: Raulfredericachar Sepulveda on 08-06-2023 Erythrocyte distribution width (RBC) [Entitic vol] 45.2 fL 35.1-43.9 [facility] Hematocrit Auto (Bld) [Volum e fraction]Ordered By: Donato Sepulveda on 08-06-2023 Hematocrit (Bld) [Volume fraction] 39.7 % 37-47 [facility] Laboratory - Chemistry and C hemistry - challengeOrdered By: Donato Sepulveda on 08-06-2023 Albumin/Globulin [Mass ratio] 1.0 {ratio} 0.9-2.4 [facility] ALP [Catalytic activity/Vol] 59 U/L 45-117 [facility] ALT [Catalytic activity/Vol] 13 U/L 13-56 [facility] CO2 [Moles/Vol] 29.0 mmol/L 21.0-32.0 [facility] Globulin (S) [Mass/Vol] 3.3 g/dL 2.2-4.2 [facility] Urea nitrogen/Creatinine [Mass ratio] 14.4 mg/mg 10-20 [facility] - Hematology and Cell countsOrdered By: Donato Sepulveda on 08-06-2023 MCH (RBC) [Entitic mass] 28.9 pg 27.0-32.0 [facility] MCHC (RBC) [Mass/Vol] 31.2 g/dL 32-36 [facility] Platelet mean volume (Bld) [Entitic vol] 10.1 fL 6.2-12.0 [facility] Platelets (Bld) [#/Vol] 187 10*3/uL 150-450 [facility] No Panel InformationOrdered By: Donato Sepulveda on 08-06-2023 Estimated GFR (MDRD) Amer 94 mL/min >60 [facility] Comment on above: GFR Calc Estimated GFR (MDRD) Non-Af Amer 77 mL/min >60 [facility] Comment on above: Non- GFR Calc RBC Auto (Bld) [#/Vol]Ordere d By: Donato Sepulveda on 08-06-2023 RBC (Bld) [#/Vol] 4.29 10*6/uL 4.2-5.4 [facility] Serum or plasma calcium serge urement (mass/volume)Ordered By: Donato Sepulveda on 08-06-2023 Calcium [Mass/Vol] 9.0 mg/dL 8.5-10.[address] [facility] Serum or plasma creatinine m easurement (mass/volume)Ordered By: Donato Sepulveda on 08-06-2023 Creatinine [Mass/Vol] 0.76 mg/dL 0.55-1.02 [facility] Comment on above: The validity of the calculated GFR & GFRAA in patients over 70 years has not been determined. Clinical correlation is essential. Serum or plasma urea nitroge n measurement (mass/volume)Ordered By: Donato Sepulveda on 08-06-2023 Urea nitrogen [Mass/Vol] 11 mg/dL 7-18 [facility] Thin prep Papanicolaou smear with manual screeningOrdered By: Donato Sepulveda on 08-06-2023 Thin prep Papanicolaou smear with manual screening 3.4 g/dL 3.2-5.0 [facility] Thin prep Papanicolaou smear with manual screening 15 U/L 15-37 [facility] Thin prep Papanicolaou smear with manual screening 5 5-15 [facility] Basophil percentageOrdered B y: Donato Sepulveda on 06-11-2023 Bilirubin [Mass/Vol] 0.50 mg/dL 0.20-1.00 [facility] Comment on above: For patients on eltr ombopag therapy, use of Dimension [place] TBIL is not recommended. Chloride [Moles/Vol] 105 mmol/L 98-107 [facility] Glucose [Mass/Vol] 92 mg/dL 74-[address] [facility] Hemoglobin (Bld) [Mass/Vol] 12.1 g/dL 12.0-15.0 [facility] Potassium [Moles/Vol] 3.7 mmol/L 3.5-5.1 [facility] Protein [Mass/Vol] 6.9 g/dL 6.4-8.[address] [facility] Sodium [Moles/Vol] 140 mmol/L 136-[address] [facility] WBC (Bld) [#/Vol] 7.0 10*3/uL 4.4-11.[address] [facility] Determination of erythrocyte mean corpuscular volume (MCV)Ordered By: Dontao Sepulveda on 06-11-2023 MCV (RBC) [Entitic vol] 92.6 fL 81-99 [facility] Erythrocyte distribution wid th ratioOrdered By: Donato Sepulveda on 06-11-2023 Erythrocyte distribution width (RBC) [Ratio] 12.5 % 11.6-14.6 [facility] Erythrocyte distribution wid th standard deviationOrdered By: Donato Sepulveda on 06-11-2023 Erythrocyte distribution width (RBC) [Entitic vol] 42.4 fL 35.1-43.9 [facility] Hematocrit Auto (Bld) [Volum e fraction]Ordered By: Donato Sepulveda on 06-11-2023 Hematocrit (Bld) [Volume fraction] 38.6 % 37-47 [facility] - Chemistry and C hemistry - challengeOrdered By: Donato Sepulveda on 06-11-2023 Albumin/Globulin [Mass ratio] 0.8 {ratio} 0.9-2.4 [facility] ALP [Catalytic activity/Vol] 85 U/L 45-117 [facility] ALT [Catalytic activity/Vol] 18 U/L 13-56 [facility] CO2 [Moles/Vol] 29.0 mmol/L 21.0-32.0 [facility] Globulin (S) [Mass/Vol] 3.8 g/dL 2.2-4.2 [facility] Urea nitrogen/Creatinine [Mass ratio] 18.3 mg/mg 10-20 [facility] - Hematology and Cell countsOrdered By: Donato Sepulveda on 06-11-2023 MCH (RBC) [Entitic mass] 29.0 pg 27.0-32.0 [facility] MCHC (RBC) [Mass/Vol] 31.3 g/dL 32-36 [facility] Platelet mean volume (Bld) [Entitic vol] 11.0 fL 6.2-12.0 [facility] Platelets (Bld) [#/Vol] 190 10*3/uL 150-450 [facility] No Panel InformationOrdered By: Donato Sepulevda on 06-11-2023 Estimated GFR (MDRD) Amer 80 mL/min >60 [facility] Comment on above: GFR Calc Estimated GFR (MDRD) Non-Af Amer 66 mL/min >60 [facility] Comment on above: Non- GFR Calc Vitamin D 25-Hydroxy 29.3 ng/mL [facility] Comment on above: Vitamin D 25(OH) Sta tus Range Deficiency <20 ng/mL (50nmol/L) Insufficiency 20 - 30 ng/mL (50 - 75 nmol/L) Sufficiency 30 - 100 ng/mL (75 - 250 nmol/L) Toxicity >100 ng/mL (>250 nmol/L) RBC Auto (Bld) [#/Vol]Ordere d By: Donato Sepulveda on 06-11-2023 RBC (Bld) [#/Vol] 4.17 10*6/uL 4.2-5.4 [facility] Serum or plasma calcium serge urement (mass/volume)Ordered By: Donato Sepulveda on 06-11-2023 Calcium [Mass/Vol] 9.2 mg/dL 8.5-10.[address] [facility] Serum or plasma creatinine m easurement (mass/volume)Ordered By: Donato Sepulveda on 06-11-2023 Creatinine [Mass/Vol] 0.87 mg/dL 0.55-1.02 [facility] Comment on above: The validity of the calculated GFR & GFRAA in patients over 70 years has not been determined. Clinical correlation is essential. Serum or plasma urea nitroge n measurement (mass/volume)Ordered By: Donato Sepulveda on 06-11-2023 Urea nitrogen [Mass/Vol] 16 mg/dL 7-18 [facility] Thin prep Papanicolaou smear with manual screeningOrdered By: [facility] on 06-11-2023 Thin prep Papanicolaou smear with manual screening 3.1 g/dL 3.2-5.0 [facility] Thin prep Papanicolaou smear with manual screening 18 U/L 15-37 [facility] Thin prep Papanicolaou smear with manual screening 6 5-15 [facility] Whole blood hemoglobin A1c/t otal hemoglobin ratio (mass fraction)Ordered By: Donato Sepulveda on 06-11-2023 HbA1c (Bld) [Mass fraction] 8.7 % 3.8-5.6 [facility] Comment on above: Normal < 5.7 % Predi abetic 5.7 - 6.4 % Diabetic >or= 6.5 % Please note range changes. Absolute lymphocyte countOrd ered By: Colleen Walker on 06-05-2023 Lymphocytes Auto (Unsp spec) [#/Vol] 1.18 10*3/uL 0.83-4.51 [facility] Automated lymphocyte count a s percentage of total leukocytesOrdered By: Colleen Walker on 06-05-2023 Lymphocytes/100 WBC Auto (Unsp spec) 13.6 % 19-41 [facility] Basophil percentageOrdered B y: Colleen Walker on 06-05-2023 Basophil percentage 5-10 SEEN /hpf 0-5 [facility] Basophils/100 WBC (Bld) 0.6 % 0-1 [facility] Chloride [Moles/Vol] 104 mmol/L 98-107 [facility] Eosinophils/100 WBC (Bld) 2.0 % 0-5 [facility] Glucose [Mass/Vol] 150 mg/dL 74-[address] [facility] Comment on above: Fasting Glucose resu lt greater than or equal to 126 mg/dL suggests DIABETES MELLITUS per A.D.A. criteria. Hemoglobin (Bld) [Mass/Vol] 13.2 g/dL 12.0-15.0 [facility] Monocytes/100 WBC (Bld) 7.2 % 0-10 [facility] Neutrophils (Bld) [#/Vol] 6.6 10*3/uL 2.0-7.7 [facility] Neutrophils/100 WBC (Bld) 76.3 % 47-70 [facility] Potassium [Moles/Vol] 3.6 mmol/L 3.5-5.1 [facility] Sodium [Moles/Vol] 137 mmol/L 136-[address] [facility] WBC (Bld) [#/Vol] 8.7 10*3/uL 4.4-11.[address] [facility] Bilirubin Test strip Ql (U)O rdered By: Colleen Walker on 06-05-2023 Bilirubin Ql (U) Negative Negative [facility] Determination of erythrocyte mean corpuscular volume (MCV)Ordered By: Colleen Walker on 06-05-2023 MCV (RBC) [Entitic vol] 92.9 fL 81-99 [facility] Erythrocyte distribution wid th ratioOrdered By: Colleen Walker on 06-05-2023 Erythrocyte distribution width (RBC) [Ratio] 12.6 % 11.6-14.6 [facility] Erythrocyte distribution wid th standard deviationOrdered By: Colleen Walker on 06-05-2023 Erythrocyte distribution width (RBC) [Entitic vol] 43.4 fL 35.1-43.9 [facility] Hematocrit Auto (Bld) [Volum e fraction]Ordered By: Colleen Walker on 06-05-2023 Hematocrit (Bld) [Volume fraction] 42.1 % 37-47 [facility] Immature granulocytes/100 WB C Auto (Bld)Ordered By: Colleen Walker on 06-05-2023 Immature granulocytes/100 WBC (Bld) 0.300 % 0.0-0.9 [facility] Comment on above: IG% - Immature Granu locytes (promyelocytes, myelocytes and metamyelocytes) > 1% indicates that a LEFT SHIFT is Present. Ketones Test strip Ql (U)Ord ered By: Colleen Walker on 06-05-2023 Ketones Ql (U) Negative Negative [facility] Laboratory - Chemistry and C hemistry - challengeOrdered By: Colleen Walker on 06-05-2023 CO2 [Moles/Vol] 32.0 mmol/L 21.0-32.0 [facility] Urea nitrogen/Creatinine [Mass ratio] 21.9 mg/mg 10-20 [facility] - Hematology and Cell countsOrdered By: Colleen Walker on 06-05-2023 MCH (RBC) [Entitic mass] 29.1 pg 27.0-32.0 [facility] MCHC (RBC) [Mass/Vol] 31.4 g/dL 32-36 [facility] Nucleated RBC/100 WBC (Bld) [Ratio] 0 % 0-5 [facility] Platelets (Bld) [#/Vol] 180 10*3/uL 150-450 [facility] Mucus LM Ql (Urine sed)Order ed By: Colleen Walker on 06-05-2023 Mucus Ql (Urine sed) 0 SEEN /hpf [facility] Nitrite Test strip Ql (U)Ord ered By: Colleen Walker on 06-05-2023 Nitrite Ql (U) Negative Negative [facility] No Panel InformationOrdered By: Colleen Walker on 06-05-2023 Urine RBC 0 SEEN /hpf 0-5 [facility] Estimated Creatinine Clearance Calc 48.43 ml/min [facility] Estimated GFR (MDRD) Amer 92 mL/min >60 [facility] Comment on above: GFR Calc Estimated GFR (MDRD) Non-Af Amer 76 mL/min >60 [facility] Comment on above: Non- GFR Calc Platelet mean volume Jamie-Ec ker (Bld) [Entitic vol]Ordered By: Colleen Walker on 06-05-2023 Platelet mean volume (Bld) [Entitic vol] 10.3 fL 6.2-12.0 [facility] Protein Test strip Ql (U)Ord ered By: Colleen Walker on 06-05-2023 Protein Ql (U) 15 mg/dl Negative [facility] RBC Auto (Bld) [#/Vol]Ordere d By: Colleen Walker on 06-05-2023 RBC (Bld) [#/Vol] 4.53 10*6/uL 4.2-5.4 [facility] Serum or plasma calcium serge urement (mass/volume)Ordered By: Colleen Walker on 06-05-2023 Calcium [Mass/Vol] 9.3 mg/dL 8.5-10.[address] [facility] Serum or plasma creatinine m easurement (mass/volume)Ordered By: Colleen Walker on 06-05-2023 Creatinine [Mass/Vol] 0.78 mg/dL 0.55-1.02 [facility] Comment on above: The validity of the calculated GFR & GFRAA in patients over 70 years has not been determined. Clinical correlation is essential. Serum or plasma urea nitroge n measurement (mass/volume)Ordered By: Colleen Walker on 06-05-2023 Urea nitrogen [Mass/Vol] 17 mg/dL 7-18 [facility] Squamous epithelial cells de tection in urine sediment by light microscopyOrdered By: Colleen Walker on 06-05-2023 Epithelial cells.squamous LM Ql (Urine sed) 5-10 SEEN /hpf 5-10 [facility] Thin prep Papanicolaou smear with manual screeningOrdered By: Colleen Walker on 06-05-2023 Thin prep Papanicolaou smear with manual screening 1 5-15 [facility] Urine blood detectionOrdered By: Colleen Walker on 06-05-2023 RBC Ql (U) 50 /ul Negative [facility] Urine clarityOrdered By: Yadira Walker on 06-05-2023 Clarity (U) Sl. Cloudy Clear [facility] Urine color determinationOrd ered By: Colleen Walker on 06-05-2023 Color (U) Yellow Yellow [facility] Urine glucose detectionOrder ed By: Colleen Walker on 06-05-2023 Glucose Ql (U) 1000 mg/dl Normal [facility] Urine leukocyte esterase det ection by dipstickOrdered By: Colleen Walker on 06-05-2023 Leukocyte esterase Test strip Ql (U) 100 /ul Negative [facility] Urine pHOrdered By: Colleen ma on 06-05-2023 pH (U) 6.0 [pH] 5.0 - 8.0 [facility] Urine sediment bacteria coun t by microscopy (number/high power field)Ordered By: Colleen Walker on 06-05-2023 Bacteria LM.HPF (Urine sed) [#/Area] 0 /[HPF] None Seen [facility] Urine specific gravity measu rementOrdered By: Colleen Walker on 06-05-2023 Specific gravity (U) [Rel density] 1.015 1.002-1.030 [facility] Urine urobilinogen measureme ntOrdered By: Colleen Walker on 06-05-2023 Urobilinogen Ql (U) Normal mg/dl Normal [facility] Absolute lymphocyte countOrd ered By: Donato Sepulveda on 04-23-2023 Lymphocytes Auto (Unsp spec) [#/Vol] 1.27 10*3/uL 0.83-4.51 [facility] Basophil percentageOrdered B y: Donato Sepulveda on 04-23-2023 Basophils/100 WBC (Bld) 0.3 % 0-1 [facility] Chloride [Moles/Vol] 106 mmol/L 98-107 [facility] Eosinophils/100 WBC (Bld) 4.6 % 0-5 [facility] Glucose [Mass/Vol] 96 mg/dL 74-[address] [facility] Neutrophils (Bld) [#/Vol] 4.1 10*3/uL 2.0-7.7 [facility] Neutrophils/100 WBC (Bld) 67.6 % 47-70 [facility] Potassium [Moles/Vol] 3.7 mmol/L 3.5-5.1 [facility] Sodium [Moles/Vol] 141 mmol/L 136-[address] [facility] WBC (Bld) [#/Vol] 6.1 10*3/uL 4.4-11.[address] [facility] Blood erythrocytes count (nu mber/volume)Ordered By: Donato Sepulveda on 04-23-2023 RBC (Bld) [#/Vol] 4.10 10*6/uL 4.2-5.4 [facility] Blood hemoglobin measurement (mass/volume)Ordered By: Galichar Lombardirjnoris on 04-23-2023 Hemoglobin (Bld) [Mass/Vol] 12.0 g/dL 12.0-15.0 [facility] Blood lymphocytes/100 leukoc ytesOrdered By: Livierbalaji Lombardirjnoris on 04-23-2023 Lymphocytes/100 WBC (Bld) 20.9 % 19-41 [facility] Blood monocytes/100 leukocyt esOrdered By: marisabelchar Lombardirjnoris on 04-23-2023 Monocytes/100 WBC (Bld) 6.1 % 0-10 [facility] Blood platelet mean volumeOr dered By: Galichar Lombardirjnoris on 04-23-2023 Platelet mean volume (Bld) [Entitic vol] 10.3 fL 6.2-12.0 [facility] Determination of erythrocyte mean corpuscular volume (MCV)Ordered By: Donato Lombardirjnoris on 04-23-2023 MCV (RBC) [Entitic vol] 93.9 fL 81-99 [facility] Hematocrit Auto (Bld) [Volum e fraction]Ordered By: Livierstudyanchar Lombardirjnoris on 04-23-2023 Hematocrit (Bld) [Volume fraction] 38.5 % 37-47 [facility] - Chemistry and C hemistry - challengeOrdered By: Livierbalaji Lombardirjnoris on 04-23-2023 CO2 [Moles/Vol] 32.0 mmol/L 21.0-32.0 [facility] Urea nitrogen/Creatinine [Mass ratio] 21.8 mg/mg 10-20 [facility] - Hematology and Cell countsOrdered By: Livierbalaji Lombardirjnoris on 04-23-2023 Erythrocyte distribution width (RBC) [Entitic vol] 44.9 fL 35.1-43.9 [facility] Erythrocyte distribution width (RBC) [Ratio] 13.0 % 11.6-14.6 [facility] Immature granulocytes/100 WBC (Bld) 0.500 % 0.0-0.9 [facility] Comment on above: IG% - Immature Granu locytes (promyelocytes, myelocytes and metamyelocytes) > 1% indicates that a LEFT SHIFT is Present. MCH (RBC) [Entitic mass] 29.3 pg 27.0-32.0 [facility] Nucleated RBC/100 WBC (Bld) [Ratio] 0 % 0-5 [facility] MCHC Auto (RBC) [Mass/Vol]Or dered By: Donato Sepulveda on 04-23-2023 MCHC (RBC) [Mass/Vol] 31.2 g/dL 32-36 [facility] No Panel InformationOrdered By: Donato Sepulveda on 04-23-2023 Estimated GFR (MDRD) Amer 106 mL/min >60 [facility] Comment on above: GFR Calc Estimated GFR (MDRD) Non-Af Amer 87 mL/min >60 [facility] Comment on above: Non- GFR Calc Platelets bldOrdered By: Sherwin Sepulveda on 04-23-2023 Platelets (Bld) [#/Vol] 207 10*3/uL 150-450 [facility] Serum or plasma calcium serge urement (mass/volume)Ordered By: Donato Sepulveda on 04-23-2023 Calcium [Mass/Vol] 9.3 mg/dL 8.5-10.[address] [facility] Serum or plasma creatinine m easurement (mass/volume)Ordered By: Donato Sepulveda on 04-23-2023 Creatinine [Mass/Vol] 0.69 mg/dL 0.55-1.02 [facility] Comment on above: The validity of the calculated GFR & GFRAA in patients over 70 years has not been determined. Clinical correlation is essential. Serum or plasma urea nitroge n measurement (mass/volume)Ordered By: Donato Sepulveda on 04-23-2023 Urea nitrogen [Mass/Vol] 15 mg/dL 7-18 [facility] Thin prep Papanicolaou smear with manual screeningOrdered By: Donato Sepulveda on 04-23-2023 Thin prep Papanicolaou smear with manual screening 3 5-15 [facility] Basophil percentageOrdered B y: Donato Sepulveda on 04-19-2023 Potassium [Moles/Vol] 4.3 mmol/L 3.5-5.1 [facility] Basophil percentageOrdered B y: Donato Sepulveda on 04-09-2023 Bilirubin [Mass/Vol] 0.30 mg/dL 0.20-1.00 [facility] Comment on above: For patients on eltr ombopag therapy, use of Dimension [place] TBIL is not recommended. Chloride [Moles/Vol] 106 mmol/L 98-107 [facility] Glucose [Mass/Vol] 55 mg/dL 74-[address] [facility] Potassium [Moles/Vol] 3.9 mmol/L 3.5-5.1 [facility] Protein [Mass/Vol] 7.2 g/dL 6.4-8.[address] [facility] Sodium [Moles/Vol] 139 mmol/L 136-[address] [facility] WBC (Bld) [#/Vol] 7.9 10*3/uL 4.4-11.[address] [facility] Blood erythrocytes count (nu mber/volume)Ordered By: Donato Sepulveda on 04-09-2023 RBC (Bld) [#/Vol] 4.36 10*6/uL 4.2-5.4 [facility] Blood hemoglobin measurement (mass/volume)Ordered By: Donato Sepulveda on 04-09-2023 Hemoglobin (Bld) [Mass/Vol] 12.7 g/dL 12.0-15.0 [facility] Blood platelet mean volumeOr dered By: Donato Sepulveda on 04-09-2023 Platelet mean volume (Bld) [Entitic vol] 10.9 fL 6.2-12.0 [facility] Determination of erythrocyte mean corpuscular volume (MCV)Ordered By: Donato Sepulveda on 04-09-2023 MCV (RBC) [Entitic vol] 94.5 fL 81-99 [facility] Hematocrit Auto (Bld) [Volum e fraction]Ordered By: Donato Sepulveda on 04-09-2023 Hematocrit (Bld) [Volume fraction] 41.2 % 37-47 [facility] - Chemistry and C hemistry - challengeOrdered By: Donato Sepulveda on 04-09-2023 ALP [Catalytic activity/Vol] 90 U/L 45-117 [facility] ALT [Catalytic activity/Vol] 21 U/L 13-56 [facility] CO2 [Moles/Vol] 30.0 mmol/L 21.0-32.0 [facility] Globulin (S) [Mass/Vol] 3.7 g/dL 2.2-4.2 [facility] Urea nitrogen/Creatinine [Mass ratio] 22.9 mg/mg 10-20 [facility] - Hematology and Cell countsOrdered By: Donato Sepulveda on 04-09-2023 Erythrocyte distribution width (RBC) [Entitic vol] 44.3 fL 35.1-43.9 [facility] Erythrocyte distribution width (RBC) [Ratio] 12.8 % 11.6-14.6 [facility] MCH (RBC) [Entitic mass] 29.1 pg 27.0-32.0 [facility] MCHC Auto (RBC) [Mass/Vol]Or dered By: Donato Sepulveda on 04-09-2023 MCHC (RBC) [Mass/Vol] 30.8 g/dL 32-36 [facility] No Panel InformationOrdered By: Donato Sepulveda on 04-09-2023 Estimated GFR (MDRD) Amer 97 mL/min >60 [facility] Comment on above: GFR Calc Estimated GFR (MDRD) Non-Af Amer 80 mL/min >60 [facility] Comment on above: Non- GFR Calc Platelets bldOrdered By: Sherwin Sepulveda on 04-09-2023 Platelets (Bld) [#/Vol] 212 10*3/uL 150-450 [facility] Serum or plasma albumin serge urement (mass/volume)Ordered By: Donato Sepulveda on 04-09-2023 Albumin [Mass/Vol] 3.5 g/dL 3.2-5.[address] [facility] Serum or plasma albumin/glob ulin mass ratioOrdered By: Donato Sepulveda on 04-09-2023 Albumin/Globulin [Mass ratio] 0.9 {ratio} 0.9-2.4 [facility] Serum or plasma calcium serge urement (mass/volume)Ordered By: Donato Sepulveda on 04-09-2023 Calcium [Mass/Vol] 9.4 mg/dL 8.5-10.[address] [facility] Serum or plasma creatinine m easurement (mass/volume)Ordered By: Donato Sepulveda on 04-09-2023 Creatinine [Mass/Vol] 0.74 mg/dL 0.55-1.02 [facility] Comment on above: The validity of the calculated GFR & GFRAA in patients over 70 years has not been determined. Clinical correlation is essential. Serum or plasma urea nitroge n measurement (mass/volume)Ordered By: Donato Sepulveda on 04-09-2023 Urea nitrogen [Mass/Vol] 17 mg/dL 7-18 [facility] Thin prep Papanicolaou smear with manual screeningOrdered By: Donato Sepulveda on 04-09-2023 Thin prep Papanicolaou smear with manual screening 19 U/L 15-37 [facility] Thin prep Papanicolaou smear with manual screening 3 5-15 [facility] No Panel InformationOrdered By: Donato Sepulveda on 03-12-2023 Vitamin D 25-Hydroxy 34.4 ng/mL [facility] Comment on above: Vitamin D 25(OH) Sta tus Range Deficiency <20 ng/mL (50nmol/L) Insufficiency 20 - 30 ng/mL (50 - 75 nmol/L) Sufficiency 30 - 100 ng/mL (75 - 250 nmol/L) Toxicity >100 ng/mL (>250 nmol/L) Whole blood hemoglobin A1c/t otal hemoglobin ratio (mass fraction)Ordered By: Donato Sepulveda on 03-12-2023 HbA1c (Bld) [Mass fraction] 7.4 % 3.8-5.6 [facility] Comment on above: Normal < 5.7 % Predi abetic 5.7 - 6.4 % Diabetic >or= 6.5 % Please note range changes. Basophil percentageOrdered B y: Donato Sepulveda on 02-05-2023 Bilirubin [Mass/Vol] 0.50 mg/dL 0.20-1.00 [facility] Comment on above: For patients on eltr ombopag therapy, use of Dimension [place] TBIL is not recommended. Chloride [Moles/Vol] 105 mmol/L 98-107 [facility] Glucose [Mass/Vol] 106 mg/dL 74-[address] [facility] Comment on above: Fasting Glucose resu lt from 100 to 125 mg/dL suggests IMPAIRED HOMEOSTASIS per A.D.A. criteria. Potassium [Moles/Vol] 4.2 mmol/L 3.5-5.1 [facility] Protein [Mass/Vol] 6.9 g/dL 6.4-8.[address] [facility] Sodium [Moles/Vol] 142 mmol/L 136-[address] [facility] WBC (Bld) [#/Vol] 6.0 10*3/uL 4.4-11.[address] [facility] Blood erythrocytes count (nu mber/volume)Ordered By: Donato Sepulveda on 02-05-2023 RBC (Bld) [#/Vol] 4.18 10*6/uL 4.2-5.4 [facility] Blood hemoglobin measurement (mass/volume)Ordered By: Donato Sepulveda on 02-05-2023 Hemoglobin (Bld) [Mass/Vol] 12.1 g/dL 12.0-15.0 [facility] Blood platelet mean volumeOr dered By: Donato Sepulveda on 02-05-2023 Platelet mean volume (Bld) [Entitic vol] 10.7 fL 6.2-12.0 [facility] Determination of erythrocyte mean corpuscular volume (MCV)Ordered By: Donato Sepulveda on 02-05-2023 MCV (RBC) [Entitic vol] 95.2 fL 81-99 [facility] Direct bilirubinOrdered By: Donato Sepulveda on 02-05-2023 Bilirubin.direct [Mass/Vol] 0.15 mg/dL 0.00-0.30 [facility] Hematocrit Auto (Bld) [Volum e fraction]Ordered By: Donato Sepulveda on 02-05-2023 Hematocrit (Bld) [Volume fraction] 39.8 % 37-47 [facility] - Chemistry and C hemistry - challengeOrdered By: Donato Sepulveda on 02-05-2023 ALP [Catalytic activity/Vol] 73 U/L 45-117 [facility] ALT [Catalytic activity/Vol] 20 U/L 13-56 [facility] CO2 [Moles/Vol] 32.0 mmol/L 21.0-32.0 [facility] Globulin (S) [Mass/Vol] 3.5 g/dL 2.2-4.2 [facility] Urea nitrogen/Creatinine [Mass ratio] 20.8 mg/mg 10-20 [facility] - Hematology and Cell countsOrdered By: Donato Sepulveda on 02-05-2023 Erythrocyte distribution width (RBC) [Entitic vol] 46.1 fL 35.1-43.9 [facility] Erythrocyte distribution width (RBC) [Ratio] 13.1 % 11.6-14.6 [facility] MCH (RBC) [Entitic mass] 28.9 pg 27.0-32.0 [facility] MCHC Auto (RBC) [Mass/Vol]Or dered By: Donato Sepulveda on 02-05-2023 MCHC (RBC) [Mass/Vol] 30.4 g/dL 32-36 [facility] No Panel InformationOrdered By: Donato Sepulveda on 02-05-2023 Estimated GFR (MDRD) Amer 93 mL/min >60 [facility] Comment on above: GFR Calc Estimated GFR (MDRD) Non-Af Amer 76 mL/min >60 [facility] Comment on above: Non- GFR Calc Platelets bldOrdered By: Sherwin Sepulveda on 02-05-2023 Platelets (Bld) [#/Vol] 183 10*3/uL 150-450 [facility] Serum or plasma albumin serge urement (mass/volume)Ordered By: Donato Sepulveda on 02-05-2023 Albumin [Mass/Vol] 3.4 g/dL 3.2-5.[address] [facility] Serum or plasma albumin/glob ulin mass ratioOrdered By: Donato Sepulveda on 02-05-2023 Albumin/Globulin [Mass ratio] 1.0 {ratio} 0.9-2.4 [facility] Serum or plasma calcium serge urement (mass/volume)Ordered By: Donato Sepulveda on 02-05-2023 Calcium [Mass/Vol] 9.4 mg/dL 8.5-10.[address] [facility] Serum or plasma creatinine m easurement (mass/volume)Ordered By: Donato Sepulveda on 02-05-2023 Creatinine [Mass/Vol] 0.77 mg/dL 0.55-1.02 [facility] Comment on above: The validity of the calculated GFR & GFRAA in patients over 70 years has not been determined. Clinical correlation is essential. Serum or plasma urea nitroge n measurement (mass/volume)Ordered By: Donato Sepulveda on 02-05-2023 Urea nitrogen [Mass/Vol] 16 mg/dL 7-18 [facility] Thin prep Papanicolaou smear with manual screeningOrdered By: Donato Sepulveda on 02-05-2023 Thin prep Papanicolaou smear with manual screening 18 U/L 15-37 [facility] Thin prep Papanicolaou smear with manual screening 5 5-15 [facility] Whole blood hemoglobin A1c/t otal hemoglobin ratio (mass fraction)Ordered By: Donato Sepulveda on 02-05-2023 HbA1c (Bld) [Mass fraction] 7.0 % 3.8-5.6 [facility] Comment on above: Normal < 5.7 % Predi abetic 5.7 - 6.4 % Diabetic >or= 6.5 % Please note range changes. Basophil percentageOrdered B y: Donato Sepulveda on 12-07-2022 Potassium [Moles/Vol] 4.7 mmol/L 3.5-5.1 [facility] Basophil percentageOrdered B y: Donato Sepulveda on 12-04-2022 Bilirubin [Mass/Vol] 0.30 mg/dL 0.20-1.00 [facility] Comment on above: For patients on eltr ombopag therapy, use of Dimension [place] TBIL is not recommended. Chloride [Moles/Vol] 102 mmol/L 98-107 [facility] Glucose [Mass/Vol] 219 mg/dL 74-106 [facility] Comment on above: Glucose result great er than or equal to 200 mg/dLsuggests DIABETES MELLITUS per A.D.A. criteria. Potassium [Moles/Vol] 2.9 mmol/L 3.5-5.1 [facility] Protein [Mass/Vol] 6.6 g/dL 6.4-8.[address] [facility] Sodium [Moles/Vol] 137 mmol/L 136-[address] [facility] WBC (Bld) [#/Vol] 4.6 10*3/uL 4.4-11.[address] [facility] Blood erythrocytes count (nu mber/volume)Ordered By: Donato Sepulveda on 12-04-2022 RBC (Bld) [#/Vol] 4.22 10*6/uL 4.2-5.4 [facility] Blood hemoglobin measurement (mass/volume)Ordered By: Donato Sepulveda on 12-04-2022 Hemoglobin (Bld) [Mass/Vol] 12.4 g/dL 12.0-15.0 [facility] Blood platelet mean volumeOr dered By: stufredericachar Sepulveda on 12-04-2022 Platelet mean volume (Bld) [Entitic vol] 10.7 fL 6.2-12.0 [facility] Determination of erythrocyte mean corpuscular volume (MCV)Ordered By: Donato Sepulveda on 12-04-2022 MCV (RBC) [Entitic vol] 93.8 fL 81-99 [facility] Hematocrit Auto (Bld) [Volum e fraction]Ordered By: Donato Sepulveda on 12-04-2022 Hematocrit (Bld) [Volume fraction] 39.6 % 37-47 [facility] - Chemistry and C hemistry - challengeOrdered By: stufredericachar Sepulveda on 12-04-2022 ALP [Catalytic activity/Vol] 85 U/L 45-117 [facility] ALT [Catalytic activity/Vol] 27 U/L 13-56 [facility] CO2 [Moles/Vol] 33.0 mmol/L 21.0-32.0 [facility] Globulin (S) [Mass/Vol] 3.6 g/dL 2.2-4.2 [facility] Urea nitrogen/Creatinine [Mass ratio] 13.7 mg/mg 10-20 [facility] - Hematology and Cell countsOrdered By: Donato Sepulveda on 12-04-2022 Erythrocyte distribution width (RBC) [Entitic vol] 43.8 fL 35.1-43.9 [facility] Erythrocyte distribution width (RBC) [Ratio] 12.8 % 11.6-14.6 [facility] MCH (RBC) [Entitic mass] 29.4 pg 27.0-32.0 [facility] MCHC Auto (RBC) [Mass/Vol]Or dered By: Donato Sepulveda on 12-04-2022 MCHC (RBC) [Mass/Vol] 31.3 g/dL 32-36 [facility] No Panel InformationOrdered By: Donato Sepulveda on 12-04-2022 Estimated GFR (MDRD) Amer 80 mL/min >60 [facility] Comment on above: GFR Calc Estimated GFR (MDRD) Non-Af Amer 66 mL/min >60 [facility] Comment on above: Non- GFR Calc Vitamin D 25-Hydroxy 40.9 ng/mL [facility] Comment on above: Vitamin D 25(OH) Sta tus Range Deficiency <20 ng/mL (50nmol/L) Insufficiency 20 - 30 ng/mL (50 - 75 nmol/L) Sufficiency 30 - 100 ng/mL (75 - 250 nmol/L) Toxicity >100 ng/mL (>250 nmol/L) Platelets bldOrdered By: Sherwin Sepulveda on 12-04-2022 Platelets (Bld) [#/Vol] 167 10*3/uL 150-450 [facility] Serum or plasma albumin serge urement (mass/volume)Ordered By: Donato Sepulveda on 12-04-2022 Albumin [Mass/Vol] 3.0 g/dL 3.2-5.[address] [facility] Serum or plasma albumin/glob ulin mass ratioOrdered By: Donato Sepulveda on 12-04-2022 Albumin/Globulin [Mass ratio] 0.8 {ratio} 0.9-2.4 [facility] Serum or plasma calcium serge urement (mass/volume)Ordered By: Donato Sepulveda on 12-04-2022 Calcium [Mass/Vol] 8.6 mg/dL 8.5-10.[address] [facility] Serum or plasma creatinine m easurement (mass/volume)Ordered By: Donato Sepulveda on 12-04-2022 Creatinine [Mass/Vol] 0.88 mg/dL 0.55-1.02 [facility] Comment on above: The validity of the calculated GFR & GFRAA in patients over 70 years has not been determined. Clinical correlation is essential. Serum or plasma urea nitroge n measurement (mass/volume)Ordered By: Donato Sepulveda on 12-04-2022 Urea nitrogen [Mass/Vol] 12 mg/dL 7-18 [facility] Thin prep Papanicolaou smear with manual screeningOrdered By: Donato Sepulveda on 12-04-2022 Thin prep Papanicolaou smear with manual screening 31 U/L 15-37 [facility] Thin prep Papanicolaou smear with manual screening 2 5-15 [facility] Whole blood hemoglobin A1c/t otal hemoglobin ratio (mass fraction)Ordered By: Donato Sepulveda on 12-04-2022 HbA1c (Bld) [Mass fraction] 8.2 % 3.8-5.6 [facility] Comment on above: Normal < 5.7 % Predi abetic 5.7 - 6.4 % Diabetic >or= 6.5 % Please note range changes. Basophil percentageOrdered B y: Donato Sepulveda on 11-21-2022 Potassium [Moles/Vol] 3.3 mmol/L 3.5-5.1 [facility] Basophil percentageOrdered B y: Donato Sepulveda on 10-09-2022 Bilirubin [Mass/Vol] 0.40 mg/dL 0.20-1.00 [facility] Comment on above: For patients on eltr ombopag therapy, use of Dimension [place] TBIL is not recommended. Chloride [Moles/Vol] 104 mmol/L 98-107 [facility] Glucose [Mass/Vol] 135 mg/dL 74-[address] [facility] Comment on above: Fasting Glucose resu lt greater than or equal to 126 mg/dL suggests DIABETES MELLITUS per A.D.A. criteria. Potassium [Moles/Vol] 3.1 mmol/L 3.5-5.1 [facility] Protein [Mass/Vol] 6.5 g/dL 6.4-8.[address] [facility] Sodium [Moles/Vol] 141 mmol/L 136-[address] [facility] WBC (Bld) [#/Vol] 6.8 10*3/uL 4.4-11.[address] [facility] Blood erythrocytes count (nu mber/volume)Ordered By: Donato Sepulveda on 10-09-2022 RBC (Bld) [#/Vol] 3.95 10*6/uL 4.2-5.4 [facility] Blood hemoglobin measurement (mass/volume)Ordered By: Donato Sepulveda on 10-09-2022 Hemoglobin (Bld) [Mass/Vol] 11.7 g/dL 12.0-15.0 [facility] Blood platelet mean volumeOr dered By: Donato Sepulveda on 10-09-2022 Platelet mean volume (Bld) [Entitic vol] 10.7 fL 6.2-12.0 [facility] Determination of erythrocyte mean corpuscular volume (MCV)Ordered By: Donato Sepulveda on 10-09-2022 MCV (RBC) [Entitic vol] 94.4 fL 81-99 [facility] Hematocrit Auto (Bld) [Volum e fraction]Ordered By: Raulfredericachar Sepulveda on 10-09-2022 Hematocrit (Bld) [Volume fraction] 37.3 % 37-47 [facility] - Chemistry and C hemistry - challengeOrdered By: Donato Sepulveda on 10-09-2022 ALP [Catalytic activity/Vol] 61 U/L 45-117 [facility] ALT [Catalytic activity/Vol] 16 U/L 13-56 [facility] CO2 [Moles/Vol] 34.0 mmol/L 21.0-32.0 [facility] Globulin (S) [Mass/Vol] 3.3 g/dL 2.2-4.2 [facility] Urea nitrogen/Creatinine [Mass ratio] 13.5 mg/mg 10-20 [facility] - Hematology and Cell countsOrdered By: Donato Sepulveda on 10-09-2022 Erythrocyte distribution width (RBC) [Entitic vol] 44.6 fL 35.1-43.9 [facility] Erythrocyte distribution width (RBC) [Ratio] 12.8 % 11.6-14.6 [facility] MCH (RBC) [Entitic mass] 29.6 pg 27.0-32.0 [facility] MCHC Auto (RBC) [Mass/Vol]Or dered By: Donato Sepulveda on 10-09-2022 MCHC (RBC) [Mass/Vol] 31.4 g/dL 32-36 [facility] No Panel InformationOrdered By: Donato Sepulveda on 10-09-2022 Estimated GFR (MDRD) Amer 97 mL/min >60 [facility] Comment on above: GFR Calc Estimated GFR (MDRD) Non-Af Amer 80 mL/min >60 [facility] Comment on above: Non- GFR Calc Platelets bldOrdered By: Sherwin Sepulveda on 10-09-2022 Platelets (Bld) [#/Vol] 157 10*3/uL 150-450 [facility] Serum or plasma albumin serge urement (mass/volume)Ordered By: Donato Sepulveda on 10-09-2022 Albumin [Mass/Vol] 3.2 g/dL 3.2-5.[address] [facility] Serum or plasma albumin/glob ulin mass ratioOrdered By: Donato Sepulveda on 10-09-2022 Albumin/Globulin [Mass ratio] 1.0 {ratio} 0.9-2.4 [facility] Serum or plasma calcium serge urement (mass/volume)Ordered By: Donato Sepulveda on 10-09-2022 Calcium [Mass/Vol] 9.1 mg/dL 8.5-10.[address] [facility] Serum or plasma creatinine m easurement (mass/volume)Ordered By: Donato Sepulveda on 10-09-2022 Creatinine [Mass/Vol] 0.74 mg/dL 0.55-1.02 [facility] Comment on above: The validity of the calculated GFR & GFRAA in patients over 70 years has not been determined. Clinical correlation is essential. Serum or plasma urea nitroge n measurement (mass/volume)Ordered By: Donato Sepulveda on 10-09-2022 Urea nitrogen [Mass/Vol] 10 mg/dL 7-18 [facility] Thin prep Papanicolaou smear with manual screeningOrdered By: Donato Sepulveda on 10-09-2022 Thin prep Papanicolaou smear with manual screening 15 U/L 15-37 [facility] Thin prep Papanicolaou smear with manual screening 3 5-15 [facility] Basophil percentageOrdered B y: Basilio Flores on 10-05-2022 Cholesterol [Mass/Vol] 146 mg/dL <200 [facility] Comment on above: <200 mg/dL Desirable 200-240 mg/dL Borderline >240 mg/dL High Risk Triglyceride [Mass/Vol] 83 mg/dL <199 [facility] Comment on above: The drugs N-Acetylcy steine and Metamizole may falsely depress this assay.Serum Triglycerides Reference Interval Normal <150 mg/dL Borderline high 150 - 199 mg/dL High 200 - 499 mg/dL Very High > or = 500 mg/dL Serum or plasma cholesterol in HDL measurement (mass/volume)Ordered By: Basilio Flores on 10-05-2022 Cholesterol in HDL [Mass/Vol] 69 mg/dL >40 [facility] Comment on above: The drugs N-Acetylcy steine and Metamizole may falsely depress this assay. Reference Range HDL <40 mg/dL Low HDL Cholesterol HDL >or= 60 mg/dL High HDL Cholesterol Serum or plasma cholesterol in VLDL measurement (mass/volume)Ordered By: Basilio Flores on 10-05-2022 Cholesterol in VLDL [Mass/Vol] 17 mg/dL 5-40 [facility] Serum or plasma low density lipoprotein (LDL) cholesterol measurement (mass/volume)Ordered By: Basilio Flores on 10-05-2022 Cholesterol in LDL [Mass/Vol] 60 mg/dL 0-130 [facility] Basophil percentageOrdered B y: Donato Sepulveda on 10-04-2022 Cholesterol [Mass/Vol] 154 mg/dL <200 [facility] Comment on above: <200 mg/dL Desirable 200-240 mg/dL Borderline >240 mg/dL High Risk Triglyceride [Mass/Vol] 72 mg/dL <199 [facility] Comment on above: The drugs N-Acetylcy steine and Metamizole may falsely depress this assay.Serum Triglycerides Reference Interval Normal <150 mg/dL Borderline high 150 - 199 mg/dL High 200 - 499 mg/dL Very High > or = 500 mg/dL Serum or plasma cholesterol in HDL measurement (mass/volume)Ordered By: Donato Sepulveda on 10-04-2022 Cholesterol in HDL [Mass/Vol] 70 mg/dL >40 [facility] Comment on above: The drugs N-Acetylcy steine and Metamizole may falsely depress this assay. Reference Range HDL <40 mg/dL Low HDL Cholesterol HDL >or= 60 mg/dL High HDL Cholesterol Serum or plasma cholesterol in VLDL measurement (mass/volume)Ordered By: Donato Sepulveda on 10-04-2022 Cholesterol in VLDL [Mass/Vol] 14 mg/dL 5-40 [facility] Serum or plasma low density lipoprotein (LDL) cholesterol measurement (mass/volume)Ordered By: Donato Sepulveda on 10-04-2022 Cholesterol in LDL [Mass/Vol] 70 mg/dL 0-130 [facility] No Panel InformationOrdered By: Basilio Flores on 09-04-2022 Vitamin D 25-Hydroxy 54.3 ng/mL [facility] Comment on above: Vitamin D 25(OH) Sta tus Range Deficiency <20 ng/mL (50nmol/L) Insufficiency 20 - 30 ng/mL (50 - 75 nmol/L) Sufficiency 30 - 100 ng/mL (75 - 250 nmol/L) Toxicity >100 ng/mL (>250 nmol/L) Whole blood hemoglobin A1c/t otal hemoglobin ratio (mass fraction)Ordered By: Basilio Flores on 09-04-2022 HbA1c (Bld) [Mass fraction] 10.9 % 3.8-5.6 [facility] Comment on above: Normal < 5.7 % Predi abetic 5.7 - 6.4 % Diabetic >or= 6.5 % Please note range changes. Basophil percentageOrdered B y: Donato Sepulveda on 08-07-2022 Bilirubin [Mass/Vol] 0.60 mg/dL 0.20-1.00 [facility] Comment on above: For patients on eltr ombopag therapy, use of Dimension [place] TBIL is not recommended. Chloride [Moles/Vol] 98 mmol/L 98-107 [facility] Glucose [Mass/Vol] 432 mg/dL 74-[address] [facility] Comment on above: Glucose result great er than or equal to 200 mg/dLsuggests DIABETES MELLITUS per A.D.A. criteria. Potassium [Moles/Vol] 3.5 mmol/L 3.5-5.1 [facility] Protein [Mass/Vol] 6.8 g/dL 6.4-8.[address] [facility] Sodium [Moles/Vol] 136 mmol/L 136-[address] [facility] WBC (Bld) [#/Vol] 4.7 10*3/uL 4.4-11.[address] [facility] Blood erythrocytes count (nu mber/volume)Ordered By: Donato Sepulveda on 08-07-2022 RBC (Bld) [#/Vol] 4.19 10*6/uL 4.2-5.4 [facility] Blood hemoglobin measurement (mass/volume)Ordered By: Donato Sepulveda on 08-07-2022 Hemoglobin (Bld) [Mass/Vol] 12.2 g/dL 12.0-15.0 [facility] Blood platelet mean volumeOr dered By: Donato Sepulveda on 08-07-2022 Platelet mean volume (Bld) [Entitic vol] 10.5 fL 6.2-12.0 [facility] Determination of erythrocyte mean corpuscular volume (MCV)Ordered By: Donato Sepulveda on 08-07-2022 MCV (RBC) [Entitic vol] 92.8 fL 81-99 [facility] Hematocrit Auto (Bld) [Volum e fraction]Ordered By: Donato Sepulveda on 08-07-2022 Hematocrit (Bld) [Volume fraction] 38.9 % 37-47 [facility] - Chemistry and C hemistry - challengeOrdered By: Donato Sepulveda on 08-07-2022 ALP [Catalytic activity/Vol] 70 U/L 45-117 [facility] ALT [Catalytic activity/Vol] 19 U/L 13-56 [facility] CO2 [Moles/Vol] 36.0 mmol/L 21.0-32.0 [facility] Globulin (S) [Mass/Vol] 3.4 g/dL 2.2-4.2 [facility] Magnesium [Mass/Vol] 1.8 mg/dL 1.6-2.6 [facility] Urea nitrogen/Creatinine [Mass ratio] 15.1 mg/mg 10-20 [facility] - Hematology and Cell countsOrdered By: Donato Sepulveda on 08-07-2022 Erythrocyte distribution width (RBC) [Entitic vol] 44.1 fL 35.1-43.9 [facility] Erythrocyte distribution width (RBC) [Ratio] 13.0 % 11.6-14.6 [facility] MCH (RBC) [Entitic mass] 29.1 pg 27.0-32.0 [facility] MCHC Auto (RBC) [Mass/Vol]Or dered By: Donato Sepulveda on 08-07-2022 MCHC (RBC) [Mass/Vol] 31.4 g/dL 32-36 [facility] No Panel InformationOrdered By: Donato Sepulveda on 08-07-2022 Estimated GFR (MDRD) Amer 64 mL/min >60 [facility] Comment on above: GFR Calc Estimated GFR (MDRD) Non-Af Amer 53 mL/min >60 [facility] Comment on above: Non- GFR Calc Platelets bldOrdered By: Sherwin Sepulveda on 08-07-2022 Platelets (Bld) [#/Vol] 165 10*3/uL 150-450 [facility] Serum or plasma albumin serge urement (mass/volume)Ordered By: Donato Sepulveda on 08-07-2022 Albumin [Mass/Vol] 3.4 g/dL 3.2-5.[address] [facility] Serum or plasma albumin/glob ulin mass ratioOrdered By: Donato Sepulveda on 08-07-2022 Albumin/Globulin [Mass ratio] 1.0 {ratio} 0.9-2.4 [facility] Serum or plasma calcium serge urement (mass/volume)Ordered By: Donato Sepulveda on 08-07-2022 Calcium [Mass/Vol] 9.7 mg/dL 8.5-10.[address] [facility] Serum or plasma creatinine m easurement (mass/volume)Ordered By: Donato Sepulveda on 08-07-2022 Creatinine [Mass/Vol] 1.06 mg/dL 0.55-1.02 [facility] Comment on above: The validity of the calculated GFR & GFRAA in patients over 70 years has not been determined. Clinical correlation is essential. Serum or plasma urea nitroge n measurement (mass/volume)Ordered By: Donato Sepulveda on 08-07-2022 Urea nitrogen [Mass/Vol] 16 mg/dL 7-18 [facility] Thin prep Papanicolaou smear with manual screeningOrdered By: Donato Sepulveda on 08-07-2022 Thin prep Papanicolaou smear with manual screening 15 U/L 15-37 [facility] Thin prep Papanicolaou smear with manual screening 2 5-15 [facility] Basophil percentageOrdered B y: Basilio Flores on 06-12-2022 Bilirubin [Mass/Vol] 1.10 mg/dL 0.20-1.00 [facility] Comment on above: For patients on eltr ombopag therapy, use of Dimension [place] TBIL is not recommended. Chloride [Moles/Vol] 99 mmol/L 98-107 [facility] Glucose [Mass/Vol] 163 mg/dL 74-[address] [facility] Comment on above: Fasting Glucose resu lt greater than or equal to 126 mg/dL suggests DIABETES MELLITUS per A.D.A. criteria. Potassium [Moles/Vol] 3.4 mmol/L 3.5-5.1 [facility] Protein [Mass/Vol] 7.4 g/dL 6.4-8.[address] [facility] Sodium [Moles/Vol] 141 mmol/L 136-[address] [facility] WBC (Bld) [#/Vol] 8.0 10*3/uL 4.4-11.[address] [facility] Blood erythrocytes count (nu mber/volume)Ordered By: Basilio Flores on 06-12-2022 RBC (Bld) [#/Vol] 4.53 10*6/uL 4.2-5.4 [facility] Blood hemoglobin measurement (mass/volume)Ordered By: Basilio Flores on 06-12-2022 Hemoglobin (Bld) [Mass/Vol] 13.2 g/dL 12.0-15.0 [facility] Blood platelet mean volumeOr dered By: Basilio Flores on 06-12-2022 Platelet mean volume (Bld) [Entitic vol] 10.4 fL 6.2-12.0 [facility] Determination of erythrocyte mean corpuscular volume (MCV)Ordered By: Basilio Flores on 06-12-2022 MCV (RBC) [Entitic vol] 90.5 fL 81-99 [facility] Hematocrit Auto (Bld) [Volum e fraction]Ordered By: Basilio Flores on 06-12-2022 Hematocrit (Bld) [Volume fraction] 41.0 % 37-47 [facility] Laboratory - Chemistry and C hemistry - challengeOrdered By: Basilio Flores on 06-12-2022 ALP [Catalytic activity/Vol] 88 U/L 45-117 [facility] ALT [Catalytic activity/Vol] 20 U/L 13-56 [facility] CO2 [Moles/Vol] 34.0 mmol/L 21.0-32.0 [facility] Globulin (S) [Mass/Vol] 3.7 g/dL 2.2-4.2 [facility] Urea nitrogen/Creatinine [Mass ratio] 15.1 mg/mg 10-20 [facility] Laboratory - Hematology and Cell countsOrdered By: Basilio Flores on 06-12-2022 Erythrocyte distribution width (RBC) [Entitic vol] 42.0 fL 35.1-43.9 [facility] Erythrocyte distribution width (RBC) [Ratio] 12.8 % 11.6-14.6 [facility] MCH (RBC) [Entitic mass] 29.1 pg 27.0-32.0 [facility] MCHC Auto (RBC) [Mass/Vol]Or dered By: Basilio Flores on 06-12-2022 MCHC (RBC) [Mass/Vol] 32.2 g/dL 32-36 [facility] No Panel InformationOrdered By: Basilio Flores on 06-12-2022 Estimated GFR (MDRD) Amer 82 mL/min >60 [facility] Comment on above: GFR Calc Estimated GFR (MDRD) Non-Af Amer 67 mL/min >60 [facility] Comment on above: Non- GFR Calc Vitamin D 25-Hydroxy 49.1 ng/mL [facility] Comment on above: Vitamin D 25(OH) Sta tus Range Deficiency <20 ng/mL (50nmol/L) Insufficiency 20 - 30 ng/mL (50 - 75 nmol/L) Sufficiency 30 - 100 ng/mL (75 - 250 nmol/L) Toxicity >100 ng/mL (>250 nmol/L) Platelets bldOrdered By: August Flores on 06-12-2022 Platelets (Bld) [#/Vol] 188 10*3/uL 150-450 [facility] Serum or plasma albumin serge urement (mass/volume)Ordered By: Basilio Flores on 06-12-2022 Albumin [Mass/Vol] 3.7 g/dL 3.2-5.[address] [facility] Serum or plasma albumin/glob ulin mass ratioOrdered By: Basilio Flores on 06-12-2022 Albumin/Globulin [Mass ratio] 1.0 {ratio} 0.9-2.4 [facility] Serum or plasma calcium serge urement (mass/volume)Ordered By: Basilio Flores on 06-12-2022 Calcium [Mass/Vol] 9.5 mg/dL 8.5-10.[address] [facility] Serum or plasma creatinine m easurement (mass/volume)Ordered By: Basilio Flores on 06-12-2022 Creatinine [Mass/Vol] 0.86 mg/dL 0.55-1.02 [facility] Comment on above: The validity of the calculated GFR & GFRAA in patients over 70 years has not been determined. Clinical correlation is essential. Serum or plasma urea nitroge n measurement (mass/volume)Ordered By: Basilio Flores on 06-12-2022 Urea nitrogen [Mass/Vol] 13 mg/dL 7-18 [facility] Thin prep Papanicolaou smear with manual screeningOrdered By: Basilio Flores on 06-12-2022 Thin prep Papanicolaou smear with manual screening 18 U/L 15-37 [facility] Thin prep Papanicolaou smear with manual screening 8 5-15 [facility] Whole blood hemoglobin A1c/t otal hemoglobin ratio (mass fraction)Ordered By: Basilio Flores on 06-12-2022 HbA1c (Bld) [Mass fraction] 9.2 % 3.8-5.6 [facility] Comment on above: Normal < 5.7 % Predi abetic 5.7 - 6.4 % Diabetic >or= 6.5 % Please note range changes. Basophil percentageOrdered B y: Donato Sepulveda on 04-17-2022 Chloride [Moles/Vol] 97 mmol/L 98-107 [facility] Glucose [Mass/Vol] 328 mg/dL 74-[address] [facility] Comment on above: Glucose result great er than or equal to 200 mg/dLsuggests DIABETES MELLITUS per A.D.A. criteria. Potassium [Moles/Vol] 3.6 mmol/L 3.5-5.1 [facility] Sodium [Moles/Vol] 137 mmol/L 136-[address] [facility] Laboratory - Chemistry and C hemistry - challengeOrdered By: Donato Sepulveda on 04-17-2022 CO2 [Moles/Vol] 36.0 mmol/L 21.0-32.0 [facility] Urea nitrogen/Creatinine [Mass ratio] 13.7 mg/mg 10-20 [facility] No Panel InformationOrdered By: Donato Sepulveda on 04-17-2022 Estimated GFR (MDRD) Amer 73 mL/min >60 [facility] Comment on above: GFR Calc Estimated GFR (MDRD) Non-Af Amer 60 mL/min >60 [facility] Comment on above: Non- GFR Calc Serum or plasma calcium serge urement (mass/volume)Ordered By: Donato Sepulveda on 04-17-2022 Calcium [Mass/Vol] 9.5 mg/dL 8.5-10.[address] [facility] Serum or plasma creatinine m easurement (mass/volume)Ordered By: Donato Sepulveda on 04-17-2022 Creatinine [Mass/Vol] 0.95 mg/dL 0.55-1.02 [facility] Comment on above: The validity of the calculated GFR & GFRAA in patients over 70 years has not been determined. Clinical correlation is essential. Serum or plasma urea nitroge n measurement (mass/volume)Ordered By: Donato Sepulveda on 04-17-2022 Urea nitrogen [Mass/Vol] 13 mg/dL 7-18 [facility] Thin prep Papanicolaou smear with manual screeningOrdered By: Donato Sepulveda on 04-17-2022 Thin prep Papanicolaou smear with manual screening 4 5-15 [facility] Basophil percentageOrdered B y: Donato Sepulveda on 04-13-2022 Potassium [Moles/Vol] 3.2 mmol/L 3.5-5.1 [facility] Basophil percentageOrdered B y: Basilio Flores on 04-10-2022 Bilirubin [Mass/Vol] 0.50 mg/dL 0.20-1.00 [facility] Comment on above: For patients on eltr ombopag therapy, use of Dimension [place] TBIL is not recommended. Chloride [Moles/Vol] 97 mmol/L 98-107 [facility] Glucose [Mass/Vol] 366 mg/dL 74-[address] [facility] Comment on above: Glucose result great er than or equal to 200 mg/dLsuggests DIABETES MELLITUS per A.D.A. criteria. Potassium [Moles/Vol] 3.1 mmol/L 3.5-5.1 [facility] Protein [Mass/Vol] 7.3 g/dL 6.4-8.[address] [facility] Sodium [Moles/Vol] 136 mmol/L 136-[address] [facility] WBC (Bld) [#/Vol] 6.4 10*3/uL 4.4-11.[address] [facility] Blood erythrocytes count (nu mber/volume)Ordered By: Basilio Flores on 04-10-2022 RBC (Bld) [#/Vol] 4.33 10*6/uL 4.2-5.4 [facility] Blood hemoglobin measurement (mass/volume)Ordered By: Basilio Flores on 04-10-2022 Hemoglobin (Bld) [Mass/Vol] 12.7 g/dL 12.0-15.0 [facility] Blood platelet mean volumeOr dered By: Basilio Flores on 04-10-2022 Platelet mean volume (Bld) [Entitic vol] 10.8 fL 6.2-12.0 [facility] Determination of erythrocyte mean corpuscular volume (MCV)Ordered By: Basilio Flores on 04-10-2022 MCV (RBC) [Entitic vol] 91.5 fL 81-99 [facility] Hematocrit Auto (Bld) [Volum e fraction]Ordered By: Basilio Flores on 04-10-2022 Hematocrit (Bld) [Volume fraction] 39.6 % 37-47 [facility] Laboratory - Chemistry and C hemistry - challengeOrdered By: Basilio Flores on 04-10-2022 ALP [Catalytic activity/Vol] 90 U/L 45-117 [facility] ALT [Catalytic activity/Vol] 24 U/L 13-56 [facility] CO2 [Moles/Vol] 37.0 mmol/L 21.0-32.0 [facility] Globulin (S) [Mass/Vol] 4.0 g/dL 2.2-4.2 [facility] Urea nitrogen/Creatinine [Mass ratio] 14.5 mg/mg 10-20 [facility] Laboratory - Hematology and Cell countsOrdered By: Basilio Flores on 04-10-2022 Erythrocyte distribution width (RBC) [Entitic vol] 42.4 fL 35.1-43.9 [facility] Erythrocyte distribution width (RBC) [Ratio] 12.6 % 11.6-14.6 [facility] MCH (RBC) [Entitic mass] 29.3 pg 27.0-32.0 [facility] MCHC Auto (RBC) [Mass/Vol]Or dered By: Basilio Flores on 04-10-2022 MCHC (RBC) [Mass/Vol] 32.1 g/dL 32-36 [facility] No Panel InformationOrdered By: Basilio Flores on 04-10-2022 Estimated GFR (MDRD) Amer 78 mL/min >60 [facility] Comment on above: GFR Calc Estimated GFR (MDRD) Non-Af Amer 64 mL/min >60 [facility] Comment on above: Non- GFR Calc Platelets bldOrdered By: August Flores on 04-10-2022 Platelets (Bld) [#/Vol] 216 10*3/uL 150-450 [facility] Serum or plasma albumin serge urement (mass/volume)Ordered By: Basilio Flores on 04-10-2022 Albumin [Mass/Vol] 3.3 g/dL 3.2-5.[address] [facility] Serum or plasma albumin/glob ulin mass ratioOrdered By: Basilio Flores on 04-10-2022 Albumin/Globulin [Mass ratio] 0.8 {ratio} 0.9-2.4 [facility] Serum or plasma calcium serge urement (mass/volume)Ordered By: Basilio Flores on 04-10-2022 Calcium [Mass/Vol] 9.1 mg/dL 8.5-10.[address] [facility] Serum or plasma creatinine m easurement (mass/volume)Ordered By: Basilio Flores on 04-10-2022 Creatinine [Mass/Vol] 0.90 mg/dL 0.55-1.02 [facility] Comment on above: The validity of the calculated GFR & GFRAA in patients over 70 years has not been determined. Clinical correlation is essential. Serum or plasma urea nitroge n measurement (mass/volume)Ordered By: Basilio Flores on 04-10-2022 Urea nitrogen [Mass/Vol] 13 mg/dL 7-18 [facility] Thin prep Papanicolaou smear with manual screeningOrdered By: Basilio Flores on 04-10-2022 Thin prep Papanicolaou smear with manual screening 22 U/L 15-37 [facility] Thin prep Papanicolaou smear with manual screening 2 5-15 [facility] No Panel InformationOrdered By: Basilio Flores on 03-06-2022 Vitamin D 25-Hydroxy 57.1 ng/mL [facility] Comment on above: Vitamin D 25(OH) Sta tus Range Deficiency <20 ng/mL (50nmol/L) Insufficiency 20 - 30 ng/mL (50 - 75 nmol/L) Sufficiency 30 - 100 ng/mL (75 - 250 nmol/L) Toxicity >100 ng/mL (>250 nmol/L) Whole blood hemoglobin A1c/t otal hemoglobin ratio (mass fraction)Ordered By: Basilio Flores on 03-06-2022 HbA1c (Bld) [Mass fraction] 7.4 % 3.8-5.6 [facility] Comment on above: Normal < 5.7 % Predi abetic 5.7 - 6.4 % Diabetic >or= 6.5 % Please note range changes. Basophil percentageon 2021 Bilirubin [Mass/Vol] 0.90 mg/dL 0.20-1.00 [facility] Work Phone: Comment on above: For patients on eltr ombopag therapy, use of Dimension [place] TBIL is not recommended. Chloride [Moles/Vol] 102 mmol/L 98-107 [facility] Work Phone: Glucose [Mass/Vol] 198 mg/dL 74-[address] [facility] Work Phone: Comment on above: Fasting Glucose resu lt greater than or equal to 126 mg/dL suggests DIABETES MELLITUS per A.D.A. criteria. Potassium [Moles/Vol] 4.3 mmol/L 3.5-5.1 [facility] Work Phone: Protein [Mass/Vol] 7.3 g/dL 6.4-8.[address] [facility] Work Phone: Sodium [Moles/Vol] 140 mmol/L 136-[address] [facility] Work Phone: WBC (Bld) [#/Vol] 5.8 10*3/uL 4.4-11.[address] [facility] Work Phone: Blood erythrocytes count (nu mber/volume)on 02-06-2022 RBC (Bld) [#/Vol] 4.46 10*6/uL 4.2-5.4 [facility] Work Phone: Blood hemoglobin measurement (mass/volume)on 02-06-2022 Hemoglobin (Bld) [Mass/Vol] 13.1 g/dL 12.0-15.0 [facility] Work Phone: Blood platelet mean volumeon 02-06-2022 Platelet mean volume (Bld) [Entitic vol] 10.5 fL 6.2-12.0 [facility] Work Phone: Determination of erythrocyte mean corpuscular volume (MCV)on 02-06-2022 MCV (RBC) [Entitic vol] 93.3 fL 81-99 [facility] Work Phone: Hematocrit Auto (Bld) [Volum e fraction]on 02-06-2022 Hematocrit (Bld) [Volume fraction] 41.6 % 37-47 [facility] Work Phone: Laboratory - Chemistry and C hemistry - challengeon 02-06-2022 ALP [Catalytic activity/Vol] 96 U/L 45-117 [facility] Work Phone: ALT [Catalytic activity/Vol] 22 U/L 13-56 [facility] Work Phone: CO2 [Moles/Vol] 32.0 mmol/L 21.0-32.0 [facility] Work Phone: Globulin (S) [Mass/Vol] 3.7 g/dL 2.2-4.2 [facility] Work Phone: Urea nitrogen/Creatinine [Mass ratio] 20.2 mg/mg 10-20 [facility] Work Phone: Laboratory - Hematology and Cell countson 02-06-2022 Erythrocyte distribution width (RBC) [Entitic vol] 46.5 fL 35.1-43.9 [facility] Work Phone: Erythrocyte distribution width (RBC) [Ratio] 13.5 % 11.6-14.6 [facility] Work Phone: MCH (RBC) [Entitic mass] 29.4 pg 27.0-32.0 [facility] Work Phone: MCHC Auto (RBC) [Mass/Vol]on 02-06-2022 MCHC (RBC) [Mass/Vol] 31.5 g/dL 32-36 [facility] Work Phone: No Panel Informationon 02-06 Estimated GFR (MDRD) Amer 66 mL/min >60 [facility] Work Phone: Comment on above: GFR Calc Estimated GFR (MDRD) Non-Af Amer 54 mL/min >60 [facility] Work Phone: Comment on above: Non- GFR Calc Platelets bldon 02-06-2022 Platelets (Bld) [#/Vol] 176 10*3/uL 150-450 [facility] Work Phone: Serum or plasma albumin serge urement (mass/volume)on 02-06-2022 Albumin [Mass/Vol] 3.6 g/dL 3.2-5.[address] [facility] Work Phone: Serum or plasma albumin/glob ulin mass ratioon 02-06-2022 Albumin/Globulin [Mass ratio] 1.0 {ratio} 0.9-2.4 [facility] Work Phone: Serum or plasma calcium serge urement (mass/volume)on 02-06-2022 Calcium [Mass/Vol] 9.5 mg/dL 8.5-10.[address] [facility] Work Phone: Serum or plasma creatinine m easurement (mass/volume)on 02-06-2022 Creatinine [Mass/Vol] 1.04 mg/dL 0.55-1.02 [facility] Work Phone: Comment on above: The validity of the calculated GFR & GFRAA in patients over 70 years has not been determined. Clinical correlation is essential. Serum or plasma urea nitroge n measurement (mass/volume)on 02-06-2022 Urea nitrogen [Mass/Vol] 21 mg/dL 7-18 [facility] Work Phone: Thin prep Papanicolaou smear with manual screeningon 02-06-2022 Thin prep Papanicolaou smear with manual screening 20 U/L 15-37 [facility] Work Phone: Thin prep Papanicolaou smear with manual screening 6 5-15 [facility] Work Phone: Basophil percentageon 2021 Bilirubin [Mass/Vol] 0.50 mg/dL 0.20-1.00 [facility] Work Phone: Comment on above: For patients on eltr ombopag therapy, use of Dimension [place] TBIL is not recommended. Chloride [Moles/Vol] 106 mmol/L 98-107 [facility] Work Phone: Glucose [Mass/Vol] 149 mg/dL 74-[address] [facility] Work Phone: Comment on above: Fasting Glucose resu lt greater than or equal to 126 mg/dL suggests DIABETES MELLITUS per A.D.A. criteria. Potassium [Moles/Vol] 3.6 mmol/L 3.5-5.1 [facility] Work [facility]: Protein [Mass/Vol] 6.7 g/dL 6.4-8.2 [facility] Work Phone: Sodium [Moles/Vol] 142 mmol/L 136-[address] [facility] Work Phone: WBC (Bld) [#/Vol] 6.0 10*3/uL 4.4-11.[address] [facility] Work Phone: Blood erythrocytes count (nu mber/volume)on 12-05-2021 RBC (Bld) [#/Vol] 4.12 10*6/uL 4.2-5.4 [facility]: Blood hemoglobin measurement (mass/volume)on 12-05-2021 Hemoglobin (Bld) [Mass/Vol] 11.9 g/dL 12.0-15.0 [facility] Work Phone: Blood platelet mean volumeon 12-05-2021 Platelet mean volume (Bld) [Entitic vol] 10.9 fL 6.2-12.0 [facility] Work Phone: Determination of erythrocyte mean corpuscular volume (MCV)on 12-05-2021 MCV (RBC) [Entitic vol] 92.5 fL 81-99 [facility] Work Phone: Hematocrit Auto (Bld) [Volum e fraction]on 12-05-2021 Hematocrit (Bld) [Volume fraction] 38.1 % 37-47 [facility] Work Phone: Laboratory - Chemistry and C hemistry - challengeon 12-05-2021 ALP [Catalytic activity/Vol] 86 U/L 45-117 [facility] Work Phone: ALT [Catalytic activity/Vol] 17 U/L 13-56 [facility] Work Phone: CO2 [Moles/Vol] 34.0 mmol/L 21.0-32.0 [facility] Work Phone: Globulin (S) [Mass/Vol] 3.6 g/dL 2.2-4.2 [facility] Work Phone: Urea nitrogen/Creatinine [Mass ratio] 14.5 mg/mg 10-20 [facility] Work Phone: Laboratory - Hematology and Cell countson 12-05-2021 Erythrocyte distribution width (RBC) [Entitic vol] 45.8 fL 35.1-43.9 [facility] Work Phone: Erythrocyte distribution width (RBC) [Ratio] 13.4 % 11.6-14.6 [facility] Work Phone: MCH (RBC) [Entitic mass] 28.9 pg 27.0-32.0 [facility] Work Phone: MCHC Auto (RBC) [Mass/Vol]on 12-05-2021 MCHC (RBC) [Mass/Vol] 31.2 g/dL 32-36 [facility] Work Phone: No Panel Informationon 12-05 Estimated GFR (MDRD) Amer 78 mL/min >60 [facility] Work Phone: Comment on above: GFR Calc Estimated GFR (MDRD) Non-Af Amer 64 mL/min >60 [facility] Work Phone: Comment on above: Non- GFR Calc Vitamin D 25-Hydroxy 90.8 ng/mL [facility] Work Phone: Comment on above: Vitamin D 25(OH) Sta tus Range Deficiency <20 ng/mL (50nmol/L) Insufficiency 20 - 30 ng/mL (50 - 75 nmol/L) Sufficiency 30 - 100 ng/mL (75 - 250 nmol/L) Toxicity >100 ng/mL (>250 nmol/L) Platelets bldon 12-05-2021 Platelets (Bld) [#/Vol] 162 10*3/uL 150-450 [facility] Work Phone: Serum or plasma albumin serge urement (mass/volume)on 12-05-2021 Albumin [Mass/Vol] 3.1 g/dL 3.2-5.[address] [facility] Work Phone: Serum or plasma albumin/glob ulin mass ratioon 12-05-2021 Albumin/Globulin [Mass ratio] 0.9 {ratio} 0.9-2.4 [facility] Work Phone: Serum or plasma calcium serge urement (mass/volume)on 12-05-2021 Calcium [Mass/Vol] 9.3 mg/dL 8.5-10.[address] [facility] Work Phone: Serum or plasma creatinine m easurement (mass/volume)on 12-05-2021 Creatinine [Mass/Vol] 0.90 mg/dL 0.55-1.02 [facility] Work Phone: Comment on above: The validity of the calculated GFR & GFRAA in patients over 70 years has not been determined. Clinical correlation is essential. Serum or plasma urea nitroge n measurement (mass/volume)on 12-05-2021 Urea nitrogen [Mass/Vol] 13 mg/dL 7-18 [facility] Work Phone: Thin prep Papanicolaou smear with manual screeningon 12-05-2021 Thin prep Papanicolaou smear with manual screening 18 U/L 15-37 [facility] Work Phone: Thin prep Papanicolaou smear with manual screening 2 5-15 [facility] Work Phone: Whole blood hemoglobin A1c/t otal hemoglobin ratio (mass fraction)on 12-05-2021 HbA1c (Bld) [Mass fraction] 7.4 % 3.8-5.6 [facility] Work Phone: Comment on above: Normal < 5.7 % Predi abetic 5.7 - 6.4 % Diabetic >or= 6.5 % Please note range changes. Whole blood hemoglobin A1c/t otal hemoglobin ratio (mass fraction)on 11-14-2021 HbA1c (Bld) [Mass fraction] 8.5 % 3.8-5.6 [facility] Work Phone: Comment on above: Normal < 5.7 % Predi abetic 5.7 - 6.4 % Diabetic >or= 6.5 % Please note range changes. Whole blood hemoglobin A1c/t otal hemoglobin ratio (mass fraction)on 10-17-2021 HbA1c (Bld) [Mass fraction] 7.7 % 3.8-5.6 [facility] Work Phone: Comment on above: Normal < 5.7 % Predi abetic 5.7 - 6.4 % Diabetic >or= 6.5 % Please note range changes. Basophil percentageon 2021 Bilirubin [Mass/Vol] 0.40 mg/dL 0.20-1.00 [facility] Work Phone: Comment on above: For patients on eltr ombopag therapy, use of Dimension [place] TBIL is not recommended. Chloride [Moles/Vol] 105 mmol/L 98-107 [facility] Work Phone: Cholesterol [Mass/Vol] 130 mg/dL <200 [facility] Work Phone: Comment on above: <200 mg/dL Desirable 200-240 mg/dL Borderline >240 mg/dL High Risk Glucose [Mass/Vol] 127 mg/dL 74-[address] [facility] Work Phone: Comment on above: Fasting Glucose resu lt greater than or equal to 126 mg/dL suggests DIABETES MELLITUS per A.D.A. criteria. Potassium [Moles/Vol] 3.7 mmol/L 3.5-5.1 [facility] Work Phone: Protein [Mass/Vol] 6.4 g/dL 6.4-8.[address] [facility] Work Phone: Sodium [Moles/Vol] 145 mmol/L 136-[address] [facility] Work Phone: Triglyceride [Mass/Vol] 77 mg/dL <199 [facility] Work Phone: Comment on above: The drugs N-Acetylcy steine and Metamizole may falsely depress this assay.Serum Triglycerides Reference Interval Normal <150 mg/dL Borderline high 150 - 199 mg/dL High 200 - 499 mg/dL Very High > or = 500 mg/dL WBC (Bld) [#/Vol] 5.7 10*3/uL 4.4-11.[address] [facility] Work Phone: Blood erythrocytes count (nu mber/volume)on 10-05-2021 RBC (Bld) [#/Vol] 4.01 10*6/uL 4.2-5.4 [facility] Work Phone: Blood hemoglobin measurement (mass/volume)on 10-05-2021 Hemoglobin (Bld) [Mass/Vol] 11.5 g/dL 12.0-15.0 [facility] Work Phone: Blood platelet mean volumeon 10-05-2021 Platelet mean volume (Bld) [Entitic vol] 11.3 fL 6.2-12.0 [facility] Work Phone: Determination of erythrocyte mean corpuscular volume (MCV)on 10-05-2021 MCV (RBC) [Entitic vol] 93.3 fL 81-99 [facility] Work Phone: Hematocrit Auto (Bld) [Volum e fraction]on 10-05-2021 Hematocrit (Bld) [Volume fraction] 37.4 % 37-47 [facility] Work Phone: Laboratory - Chemistry and C hemistry - challengeon 10-05-2021 ALP [Catalytic activity/Vol] 80 U/L 45-117 [facility] Work Phone: ALT [Catalytic activity/Vol] 16 U/L 13-56 [facility] Work Phone: CO2 [Moles/Vol] 29.0 mmol/L 21.0-32.0 [facility] Work Phone: Globulin (S) [Mass/Vol] 3.1 g/dL 2.2-4.2 [facility] Work Phone: Urea nitrogen/Creatinine [Mass ratio] 17.1 mg/mg 10-20 [facility] Work Phone: Laboratory - Hematology and Cell countson 10-05-2021 Erythrocyte distribution width (RBC) [Entitic vol] 44.9 fL 35.1-43.9 [facility] Work Phone: Erythrocyte distribution width (RBC) [Ratio] 13.2 % 11.6-14.6 [facility] Work Phone: MCH (RBC) [Entitic mass] 28.7 pg 27.0-32.0 [facility] Work Phone: MCHC Auto (RBC) [Mass/Vol]on 10-05-2021 MCHC (RBC) [Mass/Vol] 30.7 g/dL 32-36 [facility] Work Phone: No Panel Informationon 10-05 Estimated GFR (MDRD) Amer 65 mL/min >60 [facility] Work Phone: Comment on above: GFR Calc Estimated GFR (MDRD) Non-Af Amer 54 mL/min >60 [facility] Work Phone: Comment on above: Non- GFR Calc Platelets bldon 10-05-2021 Platelets (Bld) [#/Vol] 164 10*3/uL 150-450 [facility] Work Phone: Serum or plasma albumin serge urement (mass/volume)on 10-05-2021 Albumin [Mass/Vol] 3.3 g/dL 3.2-5.[address] [facility] Work Phone: Serum or plasma albumin/glob ulin mass ratioon 10-05-2021 Albumin/Globulin [Mass ratio] 1.1 {ratio} 0.9-2.4 [facility] Work Phone: Serum or plasma calcium serge urement (mass/volume)on 10-05-2021 Calcium [Mass/Vol] 8.8 mg/dL 8.5-10.[address] [facility] Work Phone: Serum or plasma cholesterol in HDL measurement (mass/volume)on 10-05-2021 Cholesterol in HDL [Mass/Vol] 47 mg/dL >40 [facility] Work Phone: Comment on above: The drugs N-Acetylcy steine and Metamizole may falsely depress this assay. Reference Range HDL <40 mg/dL Low HDL Cholesterol HDL >or= 60 mg/dL High HDL Cholesterol Serum or plasma cholesterol in VLDL measurement (mass/volume)on 10-05-2021 Cholesterol in VLDL [Mass/Vol] 15 mg/dL 5-40 [facility] Work Phone: Serum or plasma creatinine m easurement (mass/volume)on 10-05-2021 Creatinine [Mass/Vol] 1.05 mg/dL 0.55-1.02 [facility] Work Phone: Comment on above: The validity of the calculated GFR & GFRAA in patients over 70 years has not been determined. Clinical correlation is essential. Serum or plasma low density lipoprotein (LDL) cholesterol measurement (mass/volume)on 10-05-2021 Cholesterol in LDL [Mass/Vol] 68 mg/dL 0-130 [facility] Work Phone: Serum or plasma urea nitroge n measurement (mass/volume)on 10-05-2021 Urea nitrogen [Mass/Vol] 18 mg/dL 7-18 [facility] Work Phone: Thin prep Papanicolaou smear with manual screeningon 10-05-2021 Thin prep Papanicolaou smear with manual screening 18 U/L 15-37 [facility] Work Phone: Thin prep Papanicolaou smear with manual screening 11 5-15 [facility] Work Phone: No Panel Informationon 09-05 Vitamin D 25-Hydroxy 44.4 ng/mL [facility] Work Phone: Comment on above: Vitamin D 25(OH) Sta tus Range Deficiency <20 ng/mL (50nmol/L) Insufficiency 20 - 30 ng/mL (50 - 75 nmol/L) Sufficiency 30 - 100 ng/mL (75 - 250 nmol/L) Toxicity >100 ng/mL (>250 nmol/L) Whole blood hemoglobin A1c/t otal hemoglobin ratio (mass fraction)on 09-05-2021 HbA1c (Bld) [Mass fraction] 8.3 % 3.8-5.6 [facility] Work Phone: Comment on above: Normal < 5.7 % Predi abetic 5.7 - 6.4 % Diabetic >or= 6.5 % Please note range changes. Basophil percentageon 2021 Bilirubin [Mass/Vol] 0.40 mg/dL 0.20-1.00 [facility] Work Phone: Comment on above: For patients on eltr ombopag therapy, use of Dimension [place] TBIL is not recommended. Chloride [Moles/Vol] 102 mmol/L 98-107 [facility] Work Phone: Glucose [Mass/Vol] 358 mg/dL 74-[address] [facility] Work Phone: Comment on above: Glucose result great er than or equal to 200 mg/dLsuggests DIABETES MELLITUS per A.D.A. criteria. Potassium [Moles/Vol] 3.3 mmol/L 3.5-5.1 [facility] Work Phone: Protein [Mass/Vol] 6.8 g/dL 6.4-8.[address] [facility] Work Phone: Sodium [Moles/Vol] 139 mmol/L 136-[address] [facility] Work Phone: WBC (Bld) [#/Vol] 5.6 10*3/uL 4.4-11.[address] [facility] Work Phone: Blood erythrocytes count (nu mber/volume)on 08-08-2021 RBC (Bld) [#/Vol] 3.99 10*6/uL 4.2-5.4 [facility]: Blood hemoglobin measurement (mass/volume)on 08-08-2021 Hemoglobin (Bld) [Mass/Vol] 11.5 g/dL 12.0-15.0 [facility] Work Phone: Blood platelet mean volumeon 08-08-2021 Platelet mean volume (Bld) [Entitic vol] 11.0 fL 6.2-12.0 [facility] Work Phone: Determination of erythrocyte mean corpuscular volume (MCV)on 08-08-2021 MCV (RBC) [Entitic vol] 91.7 fL 81-99 [facility] Work Phone: Hematocrit Auto (Bld) [Volum e fraction]on 08-08-2021 Hematocrit (Bld) [Volume fraction] 36.6 % 37-47 [facility] Work Phone: Laboratory - Chemistry and C hemistry - challengeon 08-08-2021 ALP [Catalytic activity/Vol] 85 U/L 45-117 [facility] Work Phone: ALT [Catalytic activity/Vol] 17 U/L 13-56 [facility] Work Phone: CO2 [Moles/Vol] 33.0 mmol/L 21.0-32.0 [facility] Work Phone: Globulin (S) [Mass/Vol] 3.8 g/dL 2.2-4.2 [facility] Work Phone: Urea nitrogen/Creatinine [Mass ratio] 12.7 mg/mg 10-20 [facility] Work Phone: Laboratory - Hematology and Cell countson 08-08-2021 Erythrocyte distribution width (RBC) [Entitic vol] 43.0 fL 35.1-43.9 [facility] Work Phone: Erythrocyte distribution width (RBC) [Ratio] 12.7 % 11.6-14.6 [facility] Work Phone: MCH (RBC) [Entitic mass] 28.8 pg 27.0-32.0 [facility] Work Phone: MCHC Auto (RBC) [Mass/Vol]on 08-08-2021 MCHC (RBC) [Mass/Vol] 31.4 g/dL 32-36 [facility] Work Phone: No Panel Informationon 08-08 Estimated GFR (MDRD) Amer 67 mL/min >60 [facility] Work Phone: Comment on above: GFR Calc Estimated GFR (MDRD) Non-Af Amer 56 mL/min >60 [facility] Work Phone: Comment on above: Non- GFR Calc Platelets bldon 08-08-2021 Platelets (Bld) [#/Vol] 155 10*3/uL 150-450 [facility] Work Phone: Serum or plasma albumin serge urement (mass/volume)on 08-08-2021 Albumin [Mass/Vol] 3.0 g/dL 3.2-5.[address] [facility] Work Phone: Serum or plasma albumin/glob ulin mass ratioon 08-08-2021 Albumin/Globulin [Mass ratio] 0.8 {ratio} 0.9-2.4 [facility] Work Phone: Serum or plasma calcium serge urement (mass/volume)on 08-08-2021 Calcium [Mass/Vol] 9.3 mg/dL 8.5-10.[address] [facility] Work Phone: Serum or plasma creatinine m easurement (mass/volume)on 08-08-2021 Creatinine [Mass/Vol] 1.02 mg/dL 0.55-1.02 [facility] Work Phone: Comment on above: The validity of the calculated GFR & GFRAA in patients over 70 years has not been determined. Clinical correlation is essential. Serum or plasma urea nitroge n measurement (mass/volume)on 08-08-2021 Urea nitrogen [Mass/Vol] 13 mg/dL 7-18 [facility] Work Phone: Thin prep Papanicolaou smear with manual screeningon 08-08-2021 Thin prep Papanicolaou smear with manual screening 15 U/L 15-37 [facility] Work Phone: Thin prep Papanicolaou smear with manual screening 4 5-15 [facility] Work Phone: Basophil percentageon 2021 Basophil percentage 3.6 mg/dL 2.5-4.9 [facility] Work Phone: Chloride [Moles/Vol] 99 mmol/L 98-107 [facility] Work Phone: Glucose [Mass/Vol] 311 mg/dL 74-[address] [facility] Work Phone: Comment on above: Glucose result great er than or equal to 200 mg/dLsuggests DIABETES MELLITUS per A.D.A. criteria. Potassium [Moles/Vol] 3.7 mmol/L 3.5-5.1 [facility] Work Phone: Sodium [Moles/Vol] 139 mmol/L 136-[address] [facility] Work Phone: WBC (Bld) [#/Vol] 6.1 10*3/uL 4.4-11.[address] [facility] Work Phone: Blood erythrocytes count (nu mber/volume)on 07-12-2021 RBC (Bld) [#/Vol] 4.40 10*6/uL 4.2-5.4 [facility] Work Phone: Blood hemoglobin measurement (mass/volume)on 07-12-2021 Hemoglobin (Bld) [Mass/Vol] 12.5 g/dL 12.0-15.0 [facility] Work Phone: Blood platelet mean volumeon 07-12-2021 Platelet mean volume (Bld) [Entitic vol] 11.0 fL 6.2-12.0 [facility] Work Phone: Determination of erythrocyte mean corpuscular volume (MCV)on 07-12-2021 MCV (RBC) [Entitic vol] 90.7 fL 81-99 [facility] Work Phone: Hematocrit Auto (Bld) [Volum e fraction]on 07-12-2021 Hematocrit (Bld) [Volume fraction] 39.9 % 37-47 [facility] Work Phone: Laboratory - Chemistry and C hemistry - challengeon 07-12-2021 CO2 [Moles/Vol] 34.0 mmol/L 21.0-32.0 [facility] Work Phone: Urea nitrogen/Creatinine [Mass ratio] 14.2 mg/mg 10-20 [facility] Work Phone: Laboratory - Hematology and Cell countson 07-12-2021 Erythrocyte distribution width (RBC) [Entitic vol] 42.3 fL 35.1-43.9 [facility] Work Phone: Erythrocyte distribution width (RBC) [Ratio] 12.8 % 11.6-14.6 [facility] Work Phone: MCH (RBC) [Entitic mass] 28.4 pg 27.0-32.0 [facility] Work Phone: MCHC Auto (RBC) [Mass/Vol]on 07-12-2021 MCHC (RBC) [Mass/Vol] 31.3 g/dL 32-36 [facility] Work Phone: No Panel Informationon 07-12 Estimated GFR (MDRD) Amer 64 mL/min >60 [facility] Work Phone: Comment on above: GFR Calc Estimated GFR (MDRD) Non-Af Amer 53 mL/min >60 [facility] Work Phone: Comment on above: Non- GFR Calc Parathyroid Hormone (Intact) 38.0 pg/mL 18.4-80.1 [facility] Work Phone: Vitamin D 25-Hydroxy 10.0 ng/mL [facility] Work Phone: Comment on above: Vitamin D 25(OH) Sta tus Range Deficiency <20 ng/mL (50nmol/L) Insufficiency 20 - 30 ng/mL (50 - 75 nmol/L) Sufficiency 30 - 100 ng/mL (75 - 250 nmol/L) Toxicity >100 ng/mL (>250 nmol/L) Platelets bldon 07-12-2021 Platelets (Bld) [#/Vol] 188 10*3/uL 150-450 [facility] Work Phone: Serum or plasma albumin serge urement (mass/volume)on 07-12-2021 Albumin [Mass/Vol] 3.2 g/dL 3.2-5.[address] [facility] Work Phone: Serum or plasma calcium serge urement (mass/volume)on 07-12-2021 Calcium [Mass/Vol] 9.8 mg/dL 8.5-10.[address] [facility] Work Phone: Serum or plasma creatinine m easurement (mass/volume)on 07-12-2021 Creatinine [Mass/Vol] 1.06 mg/dL 0.55-1.02 [facility] Work Phone: Comment on above: The validity of the calculated GFR & GFRAA in patients over 70 years has not been determined. Clinical correlation is essential. Serum or plasma urea nitroge n measurement (mass/volume)on 07-12-2021 Urea nitrogen [Mass/Vol] 15 mg/dL 7-18 [facility] Work Phone: Clinical Summary: HMSPatient IDon 03-16-2019 OOP [facility] Work Phone: Office Visit: New - 1st visi t with practice, Rm: PT2on 03-16-2019 NEGATED: Highlighted rowMRI (magnetic resonance imaging) history of the cervical spine on 11/24/2018 at [facility] Work Phone: NEGATED: Highlighted rowTobacco smoking status NHIS Tobacco smoking status NHIS [facility] Work Phone: Vital Signs Date Time Vital Sign Value Performing Clinician Facility 02-19-2025 09:44-0400 Body height 162.[address] Donato Sepulveda MD Work Phone: [facility] 10-20-2024 18:22-0400 Diastolic blood pressure 78 mm[Hg] Dr. Basilio Flores MD Work Phone: 4(013)727-198700 [place] [address] 10-20-2024 18:22-0400 Heart rate 72 /min Dr. Basilio Flores MD Work Phone: 4(202)913-399700 [place] [address] 10-20-2024 18:22-0400 Respiratory rate 18 /min Dr. Basilio Flores MD Work Phone: 3(182)209-643600 [place] [address] 10-20-2024 18:22-0400 SaO2% (BldA) [Mass fraction] 94 % Dr. Basilio Flores MD Work Phone: 6(479)137-559800 [place] [address] 10-20-2024 18:22-0400 Systolic blood pressure 164 mm[Hg] Dr. Basilio Flores MD Work Phone: 4(888)948-370500 [place] [address] 10-20-2024 12:21-0400 Body temperature 97.9 [degF] Dr. Basilio Flores MD Work Phone: 9(626)592-714700 [place] [address] 10-20-2024 03:45-0400 Body mass index (BMI) [Ratio] 19.7 kg/m2 Dr. Basilio Flores MD Work Phone: 2(939)606-526400 [place] [address] 10-20-2024 03:45-0400 Body weight 52.[address] Basilio Flores MD Work Phone: 8(280)780-495200 [place] [address] 10-19-2024 10:15-0400 Body height 162.[address] Basilio Flores MD Work Phone: 3(741)834-073300 [place] [address] 10-18-2024 21:51-0400 Body temperature 97.8 [degF] Dr. Basilio Flores MD Work Phone: 0(462)939-382200 [place] [address] 10-18-2024 21:51-0400 Diastolic blood pressure 75 mm[Hg] Dr. Basilio Flores MD Work Phone: 9(213)146-825900 [place] [address] 10-18-2024 21:51-0400 Heart rate 83 /min Dr. Basilio Flores MD Work Phone: 5(298)071-921800 [place] [address] 10-18-2024 21:51-0400 Respiratory rate 16 /min Dr. Basilio Flores MD Work Phone: 9(328)778-824600 [place] [address] 10-18-2024 21:51-0400 SaO2% (BldA) [Mass fraction] 94 % Dr. Basilio Flores MD Work Phone: 4(856)498-503400 [place] [address] 10-18-2024 21:51-0400 Systolic blood pressure 169 mm[Hg] Dr. Basilio Flores MD Work Phone: 7(237)490-368800 [place] [address] 10-18-2024 16:46-0400 Body height 157.[address] Basilio Flores MD Work Phone: 2(616)350-859100 [place] [address] 10-18-2024 16:46-0400 Body mass index (BMI) [Ratio] 22.6 kg/m2 Dr. Basilio Flores MD Work Phone: 6(406)973-513800 [place] [address] 10-18-2024 16:46-0400 Body weight 56.[address] Basilio Flores MD Work Phone: 6(029)712-234000 [place] [address] 08-24-2024 09:43-0400 Body temperature 98.9 [degF] Dr. Basilio Flores MD Work Phone: 8(248)404-195300 [place] [address] 08-24-2024 09:43-0400 Diastolic blood pressure 69 mm[Hg] Dr. Basilio Flores MD Work Phone: 8(200)722-800900 [place] [address] 08-24-2024 09:43-0400 Heart rate 72 /min Dr. Basilio Flores MD Work Phone: 1(820)995-792400 [place] [address] 08-24-2024 09:43-0400 Respiratory rate 16 /min Dr. Basilio Flores MD Work Phone: 0(187)932-360900 [place] [address] 08-24-2024 09:43-0400 SaO2% (BldA) [Mass fraction] 98 % Dr. Basilio Flores MD Work Phone: 2(509)395-888800 [place] [address] 08-24-2024 09:43-0400 Systolic blood pressure 149 mm[Hg] Dr. Basilio Flores MD Work Phone: 6(198)173-313600 [place] [address] 08-24-2024 08:47-0400 Body height 157.[address] Basilio Flores MD Work Phone: 6(457)313-550200 [place] [address] 08-24-2024 08:47-0400 Body mass index (BMI) [Ratio] 22.1 kg/m2 Dr. Basilio Flores MD Work Phone: 4(234)498-081100 [place] [address] 08-24-2024 08:47-0400 Body weight [address] Basilio Flores MD Work Phone: 1(619)684-183100 [place] [address] 06-08-2023 09:40-0500 Diastolic blood pressure 77 mm[Hg] Dr. Basilio Flores Work Phone: 1(963)556-650800 [place] [address] 06-08-2023 09:40-0500 Heart rate 82 /min Dr. Basilio Flores Work Phone: 7(611)383-434600 [place] [address] 06-08-2023 09:40-0500 Respiratory rate 16 /min Dr. Basilio Flores Work Phone: 8(722)984-230000 [place] [address] 06-08-2023 09:40-0500 SaO2% (BldA) [Mass fraction] 98 % Dr. Basilio Flores Work Phone: 4(685)327-964100 [place] [address] 06-08-2023 09:40-0500 Systolic blood pressure 135 mm[Hg] Dr. Basilio Flores Work Phone: 2(472)880-747300 [place] [address] 06-08-2023 08:04-0500 Body height 157.[address] Basilio Flores Work Phone: 4(143)768-240000 [place] [address] 06-08-2023 08:04-0500 Body mass index (BMI) [Ratio] 25.7 kg/m2 Dr. Basilio Flores Work Phone: 0(479)985-957900 [place] [address] 06-08-2023 08:04-0500 Body temperature 97.9 [degF] Dr. Basilio Flores Work Phone: 6(037)577-806000 [place] [address] 06-08-2023 08:04-0500 Body weight 63.[address] Basilio Flores Work Phone: 7(011)283-536600 [place] [address] 06-05-2023 08:33-0500 Diastolic blood pressure 67 mm[Hg] Dr. Basilio Flores Work Phone: 3(101)312-121300 [place] [address] 06-05-2023 08:33-0500 Heart rate 81 /min Dr. Basilio Flores Work Phone: 3(930)011-140600 [place] [address] 06-05-2023 08:33-0500 Respiratory rate 16 /min Dr. Basilio Flores Work Phone: 9(003)281-413300 [place] [address] 06-05-2023 08:33-0500 SaO2% (BldA) [Mass fraction] 93 % Dr. Basilio Flores Work Phone: 3(712)276-199300 [place] [address] 06-05-2023 08:33-0500 Systolic blood pressure 142 mm[Hg] Dr. Basilio Flores Work Phone: 7(461)301-078400 [place] [address] 06-05-2023 03:42-0500 Body height 162.[address] Basilio Flores Work Phone: 2(663)694-147000 [place] [address] 06-05-2023 03:42-0500 Body mass index (BMI) [Ratio] 23.9 kg/m2 Dr. Basilio Flores Work Phone: 7(357)285-267000 [place] [address] 06-05-2023 03:42-0500 Body temperature 97.6 [degF] Dr. Basilio Flores Work Phone: 0(806)001-935200 [place] [address] 06-05-2023 03:42-0500 Body weight 63.[address] Basilio Flores Work Phone: 1(934)470-332700 [place] [address] NEGATED: Highlighted [id number] 14:06-0500 BMI (Body Mass Index) 44.85 kg/m2 Arcenio Moreira AT [facility] Work Phone: NEGATED: Highlighted [id number] 14:06-0500 Body weight 102.06 kg Arcenio Moreira AT [facility] Work Phone: NEGATED: Highlighted [id number] 14:06-0500 Body weight 102 kg Arcenio Moreira AT [facility] Work Phone: NEGATED: Highlighted [id number] 14:06-0500 BP Diastolic 68 mm[Hg] Arcenio Moreira AT [facility] Work Phone: NEGATED: Highlighted [id number] 14:06-0500 BP Systolic 124 mm[Hg] Arcenio Moreira AT [facility] Work Phone: NEGATED: Highlighted [id number] 14:06-0500 Height 151.13 cm Arcenio Moreira AT [facility] Work Phone: NEGATED: Highlighted [id number] 14:06-0500 Height 151 cm Arcenio Moreira AT [facility] Work Phone: NEGATED: Highlighted [id number] 14:06-0500 Pulse (Heart Rate) 101 /min Arcenio Moreira AT [facility] Work Phone: Encounters Encounter Date Encounter Type Care Provider Facility Start: 03-09-2025 ambulatory Donato COLVIN Fa cility:[facility] Start: 03-02-2025 End: 03-02-2025 ambulatory Debora Schneider COLLAR TRIMMER Facility:[facility] [place] Start: 02-17-2025 ambulatory Donato COLVIN Fa cility:[facility] Start: 02-17-2025 Registered Referred Donato Sepulveda MD [facility] Start: 02-09-2025 ambulatory Donato COLVIN Fa cility:[facility] Start: 02-09-2025 Registered Referred Donato Sepulveda MD -[facility] Start: 02-08-2025 End: 02-08-2025 ambulatory Debora Schneider NP Facility:[facility] [place] [facility] Start: 01-26-2025 End: 01-26-[address] Donato Sepulveda MD Work Phone: [facility] Start: 01-26-2025 End: 01-26-2025 Patient encounter procedure Debora Schneider COLLAR TRIMMER- -[facility] Work Phone: Start: 01-12-2025 End: 01-12-[address] Donato Sepulveda MD Work Phone: [facility] Start: 01-12-2025 End: 01-12-[address] Donato Sepulveda MD -[facility] Work Phone: Start: 12-30-2024 ambulatory Donato Sepulveda OLS Fa cility:[facility] Start: 12-30-2024 Registered Referred Donato Sepulveda MD [facility] Start: 12-29-2024 End: 12-29-[address] Donato Sepulveda MD Work Phone: [facility] Start: 12-29-2024 End: 12-29-2024 Departed Referred Donato Sepulveda MD [facility] Start: 12-29-2024 Registered Referred Donato Sepulveda MD [facility] Start: 12-29-2024 End: 12-29-2024 ambulatory Donato Sepulveda Facility:[facility] Start: 12-08-2024 Registered Referred Donato Sepulveda MD [facility] Start: 12-08-2024 End: 12-08-2024 ambulatory Efbalaji Sepulveda Facility:[facility] Start: 12-04-2024 End: 12-04-[address] Donato Sepulveda MD Work Phone: [facility] Start: 12-04-2024 End: 12-04-2024 Patient encounter procedure Debora Schneider COLLAR TRIMMER-C -[facility] Work Phone: Start: 11-17-2024 End: 11-17-[address] Donaot Seuplveda MD Work Phone: [facility] Start: 11-17-2024 End: 11-17-2024 Departed Referred Donato Sepulveda MD [facility] Start: 11-17-2024 Registered Referred Donato Sepulveda MD [facility] Start: 11-17-2024 End: 11-17-2024 ambulatory Donato Sepulveda Facility:[facility] Start: 11-10-2024 End: 11-10-[address] Armando Rich MD Work Phone: -[facility] Start: 11-10-2024 End: 11-10-[address] Donato Sepulveda MD -[facility] Work Phone: Start: 10-21-2024 End: 10-21-[address] Donato Sepulveda MD Work Phone: [facility] Start: 10-21-2024 End: 10-21-2024 Patient encounter procedure Debora Schneider COLLAR TRIMMER-C -[facility] Work Phone: Start: 10-20-2024 Non-patient / Non-visit Dr. Yadi Lam MD -[facility] Work Phone: Start: 10-19-2024 Non-patient / Non-visit Dr. Yadi Lam MD -[facility] Work Phone: Start: 10-18-2024 ambulatory Anali Coello Facility:[facility] Start: 10-18-2024 End: 10-20-2024 Evaluation and management of inpatient Dr. Anali Coello DO -[facility] Work Phone: Start: 10-06-2024 ambulatory Donato Rodrigues cility:[facility] Start: 10-06-2024 Registered Referred Donato Sepulveda MD -[facility] Start: 09-15-2024 End: 09-15-[address] Donato Sepulveda MD Work Phone: [facility] Start: 09-15-2024 End: 09-15-[address] Donato Sepulveda MD -[facility] Work Phone: Start: 09-08-2024 End: 09-08-[address] Basilio Flores MD Work Phone: [facility] Work Phone: Start: 09-08-2024 End: 09-08-2024 [facility]: 09-08-[facility]24 [facility] Start: 09-08-2024 End: 09-08-2024 ambulatory Donato COLVIN Facility:[facility] Start: 08-25-2024 End: 08-25-[address] Basilio Flores MD Work Phone: [facility] Work Phone: Start: 08-25-2024 End: 08-25-2024 [facility] Start: 08-24-2024 End: 08-24-2024 Admission to same day surgery center Dr. Armando Rich MD -[facility] Start: 08-24-2024 End: 08-25-[address] Basilio Flores MD Work Phone: [facility] Work Phone: Start: 08-17-2024 End: 08-17-2024 ambulatory Debora Schneider NP Facility:[facility] [place] Start: 08-17-2024 End: 08-17-2024 Patient encounter procedure Debora Schneider COLLAR TRIMMER- -[facility] Work Phone: Start: 07-15-2024 End: 07-15-[address] Basilio Flores MD Work Phone: [facility] Work Phone: Start: 07-15-2024 End: 07-15-2024 [facility] Start: 07-14-2024 End: 07-14-[address] Donato Sepulveda MD -[facility] Work Phone: Start: 07-14-2024 End: 07-15-[address] Basilio Flores MD Work Phone: [facility] Work Phone: Start: 07-14-2024 End: 07-14-2024 [facility] Start: 07-14-2024 [facility] Start: 07-14-2024 End: 07-14-2024 ambulatory Basilio Flores Facility:[facility] Start: 06-26-2024 End: 06-26-2024 ambulatory Basilio Flores Facility:[facility] Start: 06-26-2024 End: 06-26-2024 [facility] Start: 06-15-2024 ambulatory Basilio Flores Facility: [facility] Start: 06-15-2024 [facility] Start: 06-09-2024 ambulatory Basilio Flores Facility: [facility] Start: 06-09-2024 [facility] Start: 06-02-2024 End: 06-02-2024 [facility] Start: 06-01-2024 End: 06-02-2024 ambulatory Basilio Flores Facility:[facility] Start: 06-01-2024 End: 06-01-2024 [facility] Start: 05-19-2024 End: 05-19-2024 ambulatory Basilio Flores Facility:[facility] Start: 05-19-2024 End: 05-19-[address] Donato Sepulveda MD -[facility] Work Phone: Start: 04-21-2024 ambulatory Basilio Flores Facility: [facility] Start: 04-21-2024 [facility] Start: 04-07-2024 End: 04-07-2024 ambulatory Basilio Flores Facility:[facility] Start: 04-07-2024 End: 04-07-2024 ambulatory Basilio Flores Facility:[facility] Start: 08-06-2023 End: 08-06-[address] Basilio Flores Work Phone: [facility] Work Phone: Start: 08-06-2023 End: 08-06-[address] Basiilo Flores Work Phone: [facility] Start: 06-11-2023 End: 06-11-[address] Basilio Flores Work Phone: [facility] Work Phone: Start: 06-11-2023 End: 06-11-[address] Basilio Flores Work Phone: [facility] Start: 06-08-2023 End: 06-08-2023 Emergency department patient visit Dr. Basilio Flores Work Phone: [facility] Work Phone: Start: 06-05-2023 End: 06-05-[address] Basilio Flores Work Phone: [facility] Work Phone: Start: 06-05-2023 End: 06-05-2023 Emergency department patient visit Dr. Basilio Flores Work Phone: [facility] Work Phone: Start: 05-28-2023 End: 05-28-[address] Basilio Flores Work Phone: [facility] Work Phone: Start: 05-15-2023 End: 05-15-[address] Basilio Flores Work Phone: [facility] Work Phone: Start: 04-24-2023 End: 04-24-[address] Basilio Flores Work Phone: [facility] Work Phone: Start: 04-23-2023 End: 04-23-[address] Basilio Flores Work Phone: [facility] Work Phone: Start: 04-23-2023 End: 04-23-[address] Basilio Flores Work Phone: [facility] Start: 04-23-[address] Basilio avendano Work Phone: [facility] Start: 04-19-2023 End: 04-19-[address] Basilio Flores Work Phone: [facility] Work Phone: Start: 04-19-2023 End: 04-19-[address] Basilio Flores Work Phone: [facility] Start: 04-19-[address] Basilio avendano Work Phone: [facility] Start: 04-09-2023 End: 04-09-[address] Basilio Flores Work Phone: [phone] [place] [address] Work Phone: Start: 04-09-2023 End: 04-09-[address] Basilio Flores Work Phone: [facility] Start: 03-26-2023 End: 03-26-[address] Basilio Flores Work Phone: [facility] Work Phone: Start: 03-13-2023 End: 03-13-[address] Basilio Flores Work Phone: [facility] Work Phone: Start: 03-12-2023 End: 03-12-[address] Basilio Flores Work Phone: [facility] Start: 03-07-2023 End: 03-07-[address] Basilio Flores Work Phone: [facility] Work Phone: Start: 02-05-2023 End: 02-05-[address] Basilio Flores Work Phone: [facility] Start: 02-04-2023 End: 02-04-[address] Basilio Flores Work Phone: [facility] Work Phone: Start: 01-30-2023 End: 01-30-[address] Basilio Flores Work Phone: [facility] Work Phone: Start: 01-22-2023 End: 01-22-[address] Basilio Flores Work Phone: [facility] Work Phone: Start: 01-17-2023 End: 01-17-[address] Basilio Flores Work Phone: [facility] Work Phone: Start: 01-01-2023 End: 01-01-[address] Basilio Flores Work Phone: [facility] Work Phone: Start: 12-07-2022 End: 12-07-[address] Basilio Flores Work Phone: [facility] Work Phone: Start: 12-07-2022 End: 12-07-[address] Basilio Flores Work Phone: [facility] Start: 12-04-2022 End: 12-04-[address] Basilio Flores Work Phone: [facility] Work Phone: Start: 12-04-2022 End: 12-04-[address] Basilio Flores Work Phone: [facility] Start: 12-04-[address] Basilio avendano Work Phone: [facility] Start: 11-21-2022 End: 11-21-[address] Basilio Flores Work Phone: [facility] Work Phone: Start: 11-21-2022 End: 11-21-[address] Basilio Flores Work Phone: [facility] Start: 11-21-[address] Basilio avendano Work Phone: [facility] Start: 11-20-2022 End: 11-20-[address] Basilio Flores Work Phone: [facility] Work Phone: Start: 10-31-2022 End: 10-31-[address] Basilio Flores Work Phone: [facility] Work Phone: Start: 10-09-2022 End: 10-09-[address] Basilio Flores Work Phone: [facility] Work Phone: Start: 10-09-2022 End: 10-09-[address] Basilio Flores Work Phone: [facility] Start: 10-09-[address] Basilio avendano Work Phone: [facility] Start: 10-05-2022 End: 10-05-[address] Basilio Flores Work Phone: [facility] Work Phone: Start: 10-05-2022 End: 10-05-[address] Basilio Flores Work Phone: [facility] Start: 10-05-[address] Basilio avendano Work Phone: [facility] Start: 10-04-2022 End: 10-04-[address] Basilio Flores Work Phone: [phone] [place] [address] Start: 10-04-[address] Basilio avendano Work Phone: [phone] [place] [address] Start: 09-25-2022 End: 09-25-[address] Baislio Flores Work Phone: [facility] Work Phone: Start: 09-04-2022 End: 09-04-[address] Basilio Flores Work Phone: [phone] [place] [address] Work Phone: Start: 09-04-2022 End: 09-04-[address] Basilio Flores Work Phone: [facility] Start: 09-03-2022 End: 09-03-[address] Basilio Flores Work Phone: [facility] Work Phone: Start: 08-07-2022 End: 08-07-[address] Basilio Flores Work Phone: [phone] [place] [address] Work Phone: Start: 08-07-2022 End: 08-07-[address] Basilio Flores Work Phone: [facility] Start: 08-02-2022 End: 08-02-[address] Basilio Flores Work Phone: [facility] Start: 07-24-2022 End: 07-24-[address] Basilio Flores Work Phone: [facility] Start: 07-21-2022 End: 07-21-[address] Basilio Flores Work Phone: [phone] [address] Start: 07-13-2022 End: 07-13-[address] Basilio Flores Work Phone: [phone] [place] [address] Start: 07-02-2022 End: 07-02-[address] Basilio Flores Work Phone: [phone] [place] [address] Start: 06-15-2022 End: 06-15-[address] Basilio Flores Work Phone: [phone] [address] Start: 06-12-2022 End: 06-12-[address] Basilio Flores Work Phone: [phone] [place] [address] Work Phone: Start: 06-12-2022 End: 06-12-[address] Basilio Flores Work Phone: [phone] [address] Start: 05-29-2022 End: 05-29-[address] Basilio Flores Work Phone: [phone] [address] Start: 04-17-2022 End: 04-17-[address] Basilio Flores Work Phone: [phone] [address] Start: 04-17-[address] Baislio avendano Work Phone: [phone] [place] [address] Start: 04-13-2022 End: 04-13-[address] Basilio Flores Work Phone: [phone] [place] [address] Start: 04-13-[address] Basilio avendano Work Phone: [phone] [place] [address] Start: 04-10-2022 End: 04-10-[address] Basilio Flores Work Phone: [phone] [place] [address] Work Phone: Start: 04-10-2022 End: 04-10-[address] Basilio Flores Work Phone: [facility] Start: 04-05-2022 End: 04-05-[address] Basilio Flores Work Phone: [facility] Start: 03-27-2022 End: 03-27-[address] Basilio Flores Work Phone: [facility] Start: 03-06-2022 End: 03-06-[address] Basilio Flores Work Phone: [facility] Work Phone: Start: 03-06-2022 End: 03-06-[address] Basilio Flores Work Phone: [facility] Start: 02-06-2022 End: 02-06-[address] Basilio Flores Work Phone: [facility] Work Phone: Start: 02-06-2022 End: 02-06-[address] Basilio Flores Work Phone: [facility] Start: 12-05-2021 End: 12-05-[address] Basilio Flores Work Phone: [facility] Start: 12-04-2021 End: 12-04-[address] Basilio Flores Work Phone: [facility] Start: 11-14-2021 End: 11-14-[address] Basilio Flores Work Phone: [facility] Start: 10-17-2021 End: 10-17-[address] Basilio Flores Work Phone: [facility] Start: 10-17-[address] Basilio avendano Work Phone: [facility] Start: 10-05-2021 End: 10-05-[address] Basilio Flores Work Phone: [facility] Start: 09-12-2021 End: 09-12-[address] Basilio Flores Work Phone: [facility] Start: 09-05-2021 End: 09-05-[address] Basilio Flores Work Phone: [facility] Start: 08-08-2021 End: 08-08-2021 Departed Referred [facility] Start: 08-08-2021 Registered Referred [facility] Start: 07-12-2021 End: 07-12-2021 Departed Referred [facility] Start: 03-16-2019 End: 03-16-2019 Patient encounter procedure Rachael Newman MD Work Phone: [facility] Work Phone: [...] End: 03-16-2019 Documentation of current medications Arcenio Lillie AT Plan of Treatment Date Care Activity Detail Author Start: 02-17-2025 Registered Referred Registered Referred [facility] Start: 10-20-2024 Patient discharge [facility] Start: 10-19-2024 End: 10-19-2024 [facility] Start: 10-19-2024 Care regimes management [facility] Start: 10-19-2024 Notification of physician [facility] Start: 10-19-2024 Wound care [facility] Start: 10-19-2024 Care planning and problem solving actions [facility] Start: 10-18-2024 Following clinical pathway protocol [facility] Start: 10-18-2024 Application of ice collar, cap or bag [facility] Start: 10-18-2024 Assessment of risk of venous thromboembolism [facility] Start: 10-18-2024 Catheterization of vein [facility] Start: 10-18-2024 Consultation for treatment [facility] Start: 10-18-2024 Insertion of catheter into peripheral vein [facility] Start: 10-18-2024 Measuring intake and output [facility] Start: 10-18-2024 Oxygen therapy [facility] Start: 10-18-2024 Patient referral to dietitian [facility] Start: 10-18-2024 Providing care according to standard [facility] Start: 10-18-2024 Provision of activity privileges [facility] Start: 10-18-2024 Referral for physical therapy [facility] Start: 10-18-2024 Referral to occupational therapist [facility] Start: 10-18-2024 Referral to service [facility] Start: 10-18-2024 [facility] Start: 10-18-2024 Verification routine [facility] Start: 10-18-2024 Admission procedure [facility] Start: 10-18-2024 Hospital admission, emergency, from emergency room, medical nature [facility] Start: 10-18-2024 End: 10-18-2024 [facility] Start: 10-18-2024 End: 10-19-2024 [facility] Start: 10-18-2024 Bacteria identified in Blood by Culture Blood Culture [facility] Start: 10-18-2024 Bacteria identified in Urine by Culture Urine Culture [facility] Start: 10-18-2024 Consultation [facility] Start: 08-24-2024 Injection aa&/strd genicular nrv branches w/img NJX AA&/STRD GNCLR NRV BRNCH [facility] Start: 08-24-2024 Fluoroscopic guidance [facility] Start: 08-24-2024 Patient discharge [facility] Start: 06-08-2023 [facility] Start: 06-05-2023 Simple repair f/e/e/n/l/m 2.5cm/< RPR F/E/E/N/L/M 2.5 CM/< [facility] Start: 06-05-2023 [facility] Start: 03-16-2019 End: 03-16-2019 Appointment Appointment [facility] Work Phone: Patient Education [facility] Work Phone: Patient referral [facility] Work Phone: Urine culture [facility] Immunizations Immunization Date Immunization Notes Care Provider Fa cility 06-05-2023 tetanus toxoid, redu lloyd diphtheria toxoid, and acellular pertussis vaccine, adsorbed Dr. Basilio Flores Work Phone: [facility] 02-23-2015 Influenza virus vaccine [facility] Payers Date Payer Category Payer Medicare [id number] 2024 Self-pay [id number] 2024 Unknown [id number] Unknown [id number] Unknown [id number] 2.16.8 40.1.977415.3.579.2.462 Unknown [id number] 2.16.8 40.1.258943.3.579.2.462 Unknown [id number] 2.16.8 40.1.696158.3.579.2.462 Unknown [id number] 2.16.8 40.1.436761.3.579.2.462 Unknown [id number] 2.16.8 40.1.774892.3.579.2.462 Unknown [id number] 2.16.8 40.1.634058.3.579.2.462 Unknown [id number] 2.16.8 40.1.598503.3.579.2.462 Unknown [id number] 2.16.8 40.1.178569.3.579.2.462 Unknown [id number] 2.16.8 40.1.234020.3.579.2.462 Unknown [id number] 2.16.8 40.1.017555.3.579.2.462 Unknown [id number] 2.16.8 40.1.975058.3.579.2.462 Unknown [id number] 2.16.8 40.1.709792.3.579.2.462 Unknown [id number] 2.16.8 40.1.399445.3.579.2.462 Unknown [id number] 2.16.8 40.1.541266.3.579.2.462 Unknown [id number] 2.16.8 40.1.187065.3.579.2.462 Unknown [id number] 2.16.8 40.1.755095.3.579.2.462 Unknown [id number] 2.16.8 40.1.326067.3.579.2.462 Unknown [id number] 2.16.8 40.1.929771.3.579.2.462 Unknown [id number] 2.16.8 40.1.294449.3.579.2.462 Unknown [id number] 2.16.8 40.1.475377.3.579.2.462 Unknown [id number] 2.16.8 40.1.687577.3.579.2.462 Unknown [id number] 2.16.8 40.1.881670.3.579.2.462 Unknown [id number] 2.16.8 40.1.262334.3.579.2.462 Unknown [id number] 2.16.8 40.1.387088.3.579.2.462 Unknown [id number] 2.16.8 40.1.266892.3.579.2.462 Unknown [id number] 2.16.8 40.1.095813.3.579.2.462 Unknown [id number] 2.16.8 40.1.641370.3.579.2.462 Unknown [id number] 2.16.8 40.1.597415.3.579.2.462 Unknown [id number] 2.16.8 40.1.183406.3.579.2.462 Unknown [id number] 2.16.8 40.1.922927.3.579.2.462 Unknown [id number] 2.16.8 40.1.159379.3.579.2.462 Unknown [id number] 2.16.8 40.1.921901.3.579.2.462 Unknown [id number] 2.16.8 40.1.833758.3.579.2.462 Unknown [id number] 2.16.8 40.1.775555.3.579.2.462 Unknown [id number] 2.16.8 40.1.091369.3.579.2.462 Unknown [id number] 2.16.8 40.1.399850.3.579.2.462 Social History Date Type Detail Facility Start: 12-16-2019 End: 06-08-2023 Tobacco smoking status NHIS Unknown if ever smoked [facility] Start: 12-16-2019 None [facility] Start: 12-16-2019 Retirement [facility] Start: 12-16-2019 Non-smoker [facility] Start: 1940 Sex Assigned At Female [facility] Start: 06-08-2023 End: 02-19-2025 Tobacco smoking status NHIS Never smoked tobacco (finding) [facility] Start: 08-06-2024 End: 08-24-2024 Sex Female (finding) [facility] Sex Female [facility] NEGATED: Highlighted rowStart: 03-16-2019 End: 03-16-2019 Alcohol use Alcohol use [facility] Work Phone: NEGATED: Highlighted rowStart: 03-16-2019 End: 03-16-2019 Details of drug misuse behavior Details of drug misuse behavior [facility] Work Phone: NEGATED: Highlighted rowStart: 03-16-2019 End: 03-16-2019 Assertion Never smoker [facility] Work Phone: Goals Date Patient Goal Desired Activity /State Functional Status Date Assessment Result Facility 10-20-2024 Functional status Patient Activi ty Bathroom Privilege [facility] Work Phone: 10-20-2024 Functional status Activity Abili ty With Assist of 1 [facility] Work Phone: 10-20-2024 Functional status Standard Walker [facility] Work Phone: Mental Status Date Assessment Result Facility 10-20-2024 Cognitive function Voice/Name [facility] Work Phone: 10-18-2024 Cognitive function Level Of Cons ciousness Awake;Appropriate;Follows Commands;Disoriented [facility] Work Phone: 08-24-2024 Cognitive function Voice/Name [facility] Work Phone: Clinical Notes 06-05-2023 to 10-20-2024 Note Date & Type Note Facility 10-20-2024 Discharge summary Note Date/Time October 20, 2024 3:53pm [facility] Medical Records Department [address] [place] [address] Discharge Summary 10/20/24 1535 MR#: [id number] Acct: [id number] Name: JUSTUS CHINCHILLA Rep #:[id number] : 1940 84 From: Ángel cuenca MD PCP: Dr. Donato Sepulveda MD Status:A DM IN Location: [place] [address] Providers Date of Admission: 10/18/24 Primary Care Physician: Dr. Donato Sepulveda MD Consultations 10/18/24 22:14 Consult: Onc/Wound/director enterprise systems Routine Comment: Reason For Visit: SEVERE HYPOGLYCEMIA/UTI [...] who presented to the emergency department at [facility] on 10/18/2024 with chief complaint of [...] weakness and falls?84-year-old female presenting from the custodial was found to have a blood sugar [...] does not like the food at the custodial apparently. I recommend holding all of her [...] would like to go back to the custodial if possible today. 2. Essential hypertension, type [...] in before D/C Order can be placed): [facility] Charges/Coding Visit Charges Inpatient E&M: 90504 Disch Hosp >30min 10/20/24 1553 <Electronically signed by Ángel Lam MD> Cosigner Signature (if applicable): CC: Dr. Donato Sepulveda MD; Dr. Ángel Lam MD~ Signed [facility] Work Phone: 1(336) 552-895206-17-2025 Discharge summary [facility] Medical Records Department [address] [place] [address] Discharge Summary 10/20/24 1535 MR#: [id number] Acct: [id number] Name: JUSTUS CHINCHILLA Rep #:[id number] : 1940 84 From: Ángel cuenca MD PCP: Dr. Donato Sepulveda MD Status:A DM IN Location: [facility] [id number] Providers Date of Admission: 10/18/24 Primary Care Physician: Dr. Donato Sepulveda MD Consultations 10/18/24 22:14 Consult: Onc/Wound/director enterprise systems Routine Comment: Reason For Visit: SEVERE HYPOGLYCEMIA/UTI [...] mg PO BID 3 days #6 caps 06/17/25 insulin glargine 100 unit/mL (3 mL) subcutaneous pen (Lantus Solostar U-100 Insulin) 10 unit (0.1 mL) subcut DAILY 1 day #0 mL 10/20/24 Hospital Course Operations None Procedures None Summary of Care Provided Minutes Spent on Discharge: 32 Hospital Course: Per HPI: JUSTUS CHINCHILLA, is a 84 F who presented to the emergency department at [facility] on 10/18/2024 with chief complaint of [...] weakness and falls?84-year-old female presenting from the custodial was found to have a blood sugar [...] does not like the food at the custodial apparently. I recommend holding all of her [...] would like to go back to the custodial if possible today. 2. Essential hypertension, type [...] in before D/C Order can be placed): [facility] Charges/Coding Visit Charges Inpatient E&M: 82596 Disch Hosp >30min 10/20/24 1553 Cosigner Signature (if applicable): CC: Dr. Donato Sepulveda MD; Dr. Ángel Lam MD~ Signed [facility]06-17-2025 [facility] Medical Records Department [address] [place] [address] Discharge Summary 10/20/24 1535 MR#: [id number] Acct: [id number] Name: RENÉEJUSTUS M Rep #: [id number] : 1940 84 From: Ángel Lam MD PCP: Dr. Donato Sepulveda MD Status:ADM IN Location: [facility] [id number] Providers Date of Admission: 10/18/24 Primary Care Physician: Dr. Donato Sepulveda MD Consultations 10/18/24 22:14 Consult: Onc/Wound/director enterprise systems Routine Comment: Reason For Visit: SEVERE HYPOGLYCEMIA/UTI [...] who presented to the emergency department at [facility] on 10/18/2024 with chief complaint of [...] sugar improved her mentation (more content not included)...[facility]06-17-2025 Consult note Author Perla Jaimes [facility] Note Date/Time October 20, 2024 11:4 8am [facility] Medical Records Department [address] [place] [address] Counseling Note - Pharmacy 10/20/24 1148 MR#: [id number] Acct: [id number] Name: JUSTUS CHINCHILLA Rep #:[id number] : 1940 84 From: Perla Jaimes PCP: Dr. Donato Sepulveda MD Status:A DM IN Y Location: [place] [id number] [place] [facility]con[facility] Pharmacy Service has performed discharge [...] Signature (if applicable): Date CC: ~ Signed [facility] Work Phone: 1(664) 549-769506-17-2025 Discharge summary Author Ángel Lam [facility] Note Date/Time October 20, 2024 11:2 0am [facility] Medical Records Department [address] [place] [address] Transfer to [facility] Care MR#: [id number] Acct: [id number] Name: JUSTUS CHINCHILLA Rep #:[id number] : 1940 84 From: Ángel cuenca MD PCP: Dr. Donato Sepulveda MD Status:A DM IN Certification of patient admission REQUIRED AT TIME OF ADMISSION. I CERTIFY THAT POST-HOSPITAL ECF SERVICES ARE REQUIRED TO BE GIVEN ON AN IN-PATIENT BASIS BECAUSE OF THE ABOVE NAMED PATIENT'S NEED FOR FDC CARE ON A CONTINUING BASIS FOR THE CONDITION(S) FOR WHICH HE/SHE WAS RECEIVING IN-PATIENT HOSPITAL SERVICES PRIOR TO HIS/HER TRANSFER TO THE [facility]. 10/20/24 1120<Electronically signed by Ángel Lam MD> [...] her lack of p.o. intake at the custodial ? She did have falls at home the custodial because of this hypoglycemia with some abrasions [...] in before D/C Order can be placed): [facility] 10/20/24 1120 <Electronically signed by Ángel Lam MD> Cosigner Signature (if applicable): CC: Dr. Donato Sepulveda MD; Dr. Anali Coello, DO ~ [facility] Work Phone: [phone]) 309-621506-17-2025 Consult note [facility] Medical Records Department [address] [place] [address] Counseling Note - Pharmacy 10/20/24 1148 MR#: [id number] Acct: [id number] Name: JUSTUS CHINCHILLA Rep #:[id number] : 1940 84 From: Perla Jaimes PCP: Dr. Donato Sepulveda MD Status:A DM IN [facility] [place] [facility] Reconciliation Pharmacy Service has performed discharge [...] Signature (if applicable): Date CC: ~ Signed [facility]06-17-2025 Discharge summary [facility] Medical Records Department [address] [place] [address] Transfer to [facility] MR#: [id number] Acct: [id number] Name: JUSTUS CHINCHILLA Rep #:[id number] : 1940 84 From: Ángel cuenca MD PCP: Dr. Donato Sepulveda MD Status:A DM IN Certification of patient admission REQUIRED AT TIME OF ADMISSION. I CERTIFY THAT POST-HOSPITAL ECF SERVICES ARE REQUIRED TO BE GIVEN ON AN IN-PATIENT BASIS BECAUSE OF THE ABOVE NAMED PATIENT'S NEED FOR FDC CARE ON A CONTINUING BASIS FOR THE CONDITION(S) FOR WHICH HE/SHE WAS RECEIVING IN-PATIENT HOSPITAL SERVICES PRIOR TO HIS/HER TRANSFER TO THE [facility]. 10/20/24 1120 Diet Diet Order/Speech Therapy: INPATIENT [...] her lack of p.o. intake at the custodial ? She did have falls at home the custodial because of this hypoglycemia with some abrasions [...] in before D/C Order can be placed): [facility] 10/20/24 1120 Cosigner Signature (if applicable): CC: Dr. Donato Sepulveda MD; Dr. Anali Coello, DO ~ [facility]06-16-2025 Progress note Author Ángel Lam [facility] Note Date/Time October 19, 2024 7:02 pm [facility] Medical Records Department [address] [place] [address] Progress Note - Hospitalist 10/19/24 1852 MR#: [id number] Acct: [id number] Name: JUSTUS CHINCHILLA Rep #:[id number] : 1940 84 From: Ángel cuenca MD PCP: Dr. Donato Sepulveda MD Status:A DM IN Location: [place] [id number] Subjective Subjective She says that she does not feel great and would prefer to go back to the [facility] tomorrow Objective Data Objective Data Vital [...] Clarity Clear, Urine pH 6.5, Ur Specific [place]field 1.015, Urine Protein 30 H, Urine Glucose [...] % (Auto) 70.0, Lymph % (Auto) 21.5, Cheatham% (Auto) 7.3, Eos % (Auto) 0.6, Baso [...] Catheterized Urine Culture - Preliminary GNR lactose fourth officer 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 Mild anterior frontal scalp swelling. No acute calvarial defect. Reading Location: [facility] Physical Exam Narrative General: Alert, [...] her lack of p.o. intake at the custodial ? She did have falls at home the custodial because of this hypoglycemia with some abrasions [...] DVT: Lovenox Charges/Coding Visit Charges Inpatient E&M: 59740 Subs Hosp L2 10/19/24 1902 <Electronically signed by Ángel Lam MD> Cosigner Signature (if applicable): CC: ~ Signed [facility] Work Phone: 1(640) 988-355206-16-2025 Progress note [facility] Medical Records Department [address] [place] [address] Progress Note - Hospitalist 10/19/24 1852 MR#: [id number] Acct: [id number] Name: JUSTUS CHINCHILLA Rep #:[id number] : 1940 84 From: Ángel cuenca MD PCP: Dr. Donato Sepulveda MD Status:A DM IN Location: [place] [address] Subjective Subjective She says that she does not feel great and would prefer to go back to the [facility] tomorrow Objective Data Objective Data Vital [...] Clarity Clear, Urine pH 6.5, Ur Specific [place] 1.015, Urine Protein 30 H, Urine Glucose [...] % (Auto) 70.0, Lymph % (Auto) 21.5, Cheatham% (Auto) 7.3, Eos % (Auto) 0.6, Baso [...] Catheterized Urine Culture - Preliminary GNR lactose fourth officer 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 Mild anterior frontal scalp swelling. No acute calvarial defect. Reading Location: [facility] Physical Exam Narrative General: Alert, [...] her lack of p.o. intake at the custodial ? She did have falls at home the custodial because of this hypoglycemia with some abrasions [...] DVT: Lovenox Charges/Coding Visit Charges Inpatient E&M: 59864 Subs Hosp L2 10/19/24 190 Cosigner Signature (if applicable): CC: ~ Signed [facility]06-16-2025 Discharge summary Author Zoltan Garcia [facility] Note Date/Time October 19, 2024 12:1 3am [facility] Medical Records Department [address] [place] [address] Emergency Department Summary 10/18/24 MR#: [id number] Acct: [id number] Name: JUSTUS CHINCHILLA Rep #:[id number] : 1940 84 From: Zoltan Gomez PCP: Dr. Donato Sepulveda MD Status:A DM IN Location: [place] [address] HPI HPI - Fall History of Present [...] Patient takes oral hypoglycemicsas well as insulin. PFSH PFSH Medical History (Updated 10/18/24 @ 21:59 by [...] motor deficits and no sensory deficits noted Brewer Coma Scale: document GCS findings Spontaneous Obeys [...] 89.4 H Lymph % (Auto) 4.7 L Cheatham % (Auto) 4.8 Eos % (Auto) 0.1 [...] Color Urine Clarity Urine pH Ur Specific [place] Urine Protein Urine Glucose (UA) Urine Ketones [...] (Auto) Neut % (Auto) Lymph % (Auto) Cheatham % (Auto) Eos % (Auto) Baso % [...] Clarity Clear Urine pH 6.5 Ur Specific [place] 1.015 Urine Protein 30 H Urine Glucose [...] (Auto) Neut % (Auto) Lymph % (Auto) Cheatham % (Auto) Eos % (Auto) Baso % [...] Color Urine Clarity Urine pH Ur Specific [place] Urine Protein Urine Glucose (UA) Urine Ketones Urine Occult Blood Urine Nitrite Urine Bilirubin Urine Urobilinogen Ur Leukocyte Esterase Urine RBC Urine WBC Ur Squamous Epith Cells Urine Bacteria Urine Mucus POC Glucose 129 H Radiography Diagnostic Testing: Clinical Impression(s) from Imaging Studies Brain CT 10/18/24 17:01 IMPRESSION: No acute intracranial process. Mild anterior frontal scalp swelling. No acute calvarial defect. Reading Location: [id number] Management Discussion w/another healthcare provider: Hospitalist (Dr. Coello) Discharge Plan Dx/Rx/DC Orders Clinical Impression: Traumatic hematoma of forehead, Abrasion of forehead, Fall, Diabetic hypoglycemia, Skin tear of forearm without complication, Acute UTI Disposition Disposition: Acute Care Hospital [facility] Discharge Date/Time: 10/18/24 22:04 What to do if you have Problems For any increased pain, shortness of breath, bleeding, nausea or vomiting, chestpain, or any unexpected problems, contact your Primary Care Provider. Call [facility] ([phone]) or report to the closest Emergency Room. Call 911 if necessary. 10/19/24 0013 <Electronically signed by Zoltan Garcia DO> Cosigner Signature (if applicable): CC: Dr. Donato Sepulveda MD ~ Signed [facility] Work Phone: 1(925) 752-813706-16-2025 History and physical note Author Anali Coello [facility] Note Date/Time October 18, 2024 10:2 4pm [facility] Medical Records Department [address] [place] [address] H&P Exam - Hospitalist 10/18/242107 MR#: [id number] Acct: [id number] Name: JUSTUS CHINCHILLA Rep #:[id number] : 1940 84 From: Anali Coello DO PCP: Dr. Donato Sepulveda MD Status:A DM IN Location: [place] [id number] HPI - General General Date of Admission: 10/18/24 Date of Service: 10/18/24 Chief Complaint: Fall/altered mental status HPI Narrative JUSTUS CHINCHILLA, is a 84 F who presented to the emergency department at [facility] on 10/18/2024 with chief complaint of [...] she was close to her baseline mentation. [facility] Medical History (Updated 10/18/24 @ 21:59 [...] (Auto) 89.4 H, Lymph % (Auto) 4.7L, Cheatham % (Auto) 4.8, Eos % (Auto) 0.1, [...] Clarity Clear, Urine pH 6.5, Ur Specific Fairfield 1.015, Urine Protein 30 H, Urine Glucose [...] INR 1.0 Imaging Radiology Impression Brain CT 06/15/25 17:01 IMPRESSION: No acute intracranial process. Mild anterior frontal scalp swelling. No acute calvarial defect. Reading Location: [id number] Assessment & Plan Assessment/Plan (1) Skin tear of forearm without complication: (2) Diabetic hypoglycemia: (3) Fall: (4) Traumatic hematoma of forehead: (5) Abrasion of forehead: PLAN: Plan Altered mental status secondary to severe hypoglycemia - Blood sugar on [facility] at presentation was 19 - Dextrose [...] work consultation - Patient currently resides at [facility] - Hold all home antidiabetic [...] palliative care Charges/Coding Visit Charges Inpatient E&M: 46362 Init Hosp L2 10/18/24 2224 <Electronically signed by Anali Coello DO> Cosigner Signature (if applicable): CC: Dr. Donato Sepulveda MD; Dr. Anali Coello DO~ Signed [facility] Work Phone: [phone]) 247-474306-16-2025 Discharge summary [facility] Medical Records Department [address] [place] [address] Emergency Department Summary 10/18/24 MR#: [id number] Acct: [id number] Name: JUSTUS CHINCHILLA Rep #:[id number] : 1940 84 From: Zoltan Gomez PCP: Dr. Donato Sepulveda MD Status:A DM IN Location: [facility] 1 HPI HPI - Fall History of [...] Patient takes oral hypoglycemicsas well as insulin. [facility] Medical History (Updated 10/18/24 @ 21:59 by [...] motor deficits and no sensory deficits noted Brewer Coma Scale: document GCS findings Spontaneous Obeys [...] 89.4 H Lymph % (Auto) 4.7 L [place] % (Auto) 4.8 Eos % (Auto) 0.1 [...] Color Urine Clarity Urine pH Ur Specific [place] Urine Protein Urine Glucose (UA) Urine Ketones [...] (Auto) Neut % (Auto) Lymph % (Auto) [place] % (Auto) Eos % (Auto) Baso % [...] Clarity Clear Urine pH 6.5 Ur Specific [place] 1.015 Urine Protein 30 H Urine Glucose [...] (Auto) Neut % (Auto) Lymph % (Auto) [place] % (Auto) Eos % (Auto) Baso % [...] Color Urine Clarity Urine pH Ur Specific [place] Urine Protein Urine Glucose (UA) Urine Ketones Urine Occult Blood Urine Nitrite Urine Bilirubin Urine Urobilinogen Ur Leukocyte Esterase Urine RBC Urine WBC Ur Squamous Epith Cells Urine Bacteria Urine Mucus POC Glucose 129 H Radiography Diagnostic Testing: Clinical Impression(s) from Imaging Studies Brain CT 10/18/24 17:01 IMPRESSION: No acute intracranial process. Mild anterior frontal scalp swelling. No acute calvarial defect. Reading Location: [facility] Management Discussion w/another healthcare provider: Hospitalist (Dr. Coello) Discharge Plan Dx/Rx/DC Orders Clinical Impression: Traumatic hematoma of forehead, Abrasion of forehead, Fall, Diabetic hypoglycemia, Skin tear of forearm without complication, Acute UTI Disposition Disposition: Acute Care Hospital [facility] Discharge Date/Time: 10/18/24 22:04 What to do if you have Problems For any increased pain, shortness of breath, bleeding, nausea or vomiting, chestpain, or any unexpected problems, contact your Primary Care Provider. Call [facility] ([phone]) or report tothe closest Emergency Room. Call 911 if necessary. 10/19/2412 Cosigner Signature (if applicable): CC: Dr. Donato Sepulveda MD ~ Signed [facility]06-15-2025 Evaluation note* Diagnosis Onset Date Resolution Status Admit Date Abrasion of forehead acute October 18, 2024 9:38pm Acute UTI acute October 18 9:38pm Diabetic hypoglycemia acute Oct 9:38pm Fall acute October 18 9:38pm Skin tear of forearm without complication acute October 18, 2024 9:38pm Traumatic hematoma of forehead acute October 18, 2024 9:38pm [facility] Work Phone: 1(260) 665-414906-15-2025 Evaluation note* Diagnosis Onset Date Resolution Status Admit Date Abrasion of forehead acute October 18, 2024 9:38pm Diabetic hypoglycemia acute Oct 9:38pm Fall acute October 18 9:38pm Skin tear of forearm without complication acute October 18, 2024 9:38pm Traumatic hematoma of forehead acute October 18, 2024 9:38pm Acute UTI resolved October 18 9:38pm [facility] [employer] Work Phone: 1(156) 920-955406-15-2025 History and physical note [facility] Medical Records Department [address] [place] [address] H&P Exam - Hospitalist 10/18/242107 MR#: [id number] Acct: [id number] Name: JUSTUS CHINCHILLA Rep #:[id number] : 1940 84 From: Anali Coello DO PCP: Dr. Donato Sepulveda MD Status:A DM IN Location: [place] [id number] HPI - General General Date of Admission: 10/18/24 Date of Service: 10/18/24 Chief Complaint: Fall/altered mental status HPI Narrative JUSTUS CHINCHILLA, is a 84 F who presented to the emergency department at [facility] on 10/18/2024 with chief complaint of [...] per family and seems to be at [facility] at the time of my admission. She [...] she was close to her baseline mentation. [facility] Medical History (Updated 10/18/24 @ 21:59 [...] (Auto) 89.4 H, Lymph % (Auto) 4.7L, [place] % (Auto) 4.8, Eos % (Auto) 0.1, [...] Clarity Clear, Urine pH 6.5, Ur Specific [place] 1.015, Urine Protein 30 H, Urine Glucose [...] swelling. No acute calvarial defect. Reading Location: [id number] Assessment & Plan Assessment/Plan (1) Skin tear of forearm without complication: (2) Diabetic hypoglycemia: (3) Fall: (4) Traumatic hematoma of forehead: (5) Abrasion of forehead: PLAN: Plan Altered mental status secondary to severe hypoglycemia - Blood sugar on [facility] at presentation was 19 - Dextrose [...] work consultation - Patient currently resides at [facility] - Hold all home antidiabetic [...] palliative care Charges/Coding Visit Charges Inpatient E&M: 87017 Init Hosp L2 10/18/24 2224 Cosigner Signature (if applicable): CC: Dr. Donato Sepulveda MD; Dr. Anali Coello DO~ Signed [facility]06-15-2025 Radiology Diagnostic study note [facility] Imaging Services [address] [place], [place] [address] Brain/Head without Contrast MR#: [id number] Acct: [id number] Name: JUSTUS CHINCHILLA Rep #: [id number] : 1940 F 84 From: Debby Contreras MD PCP: Dr. Doanto Sepulveda MD Status: R EG ER Study:Brain/Head without Contrast Date of Exa m: 10/18/24 Exam# [id number] Ordering Dr: Parminder Garcia DO PROCEDURE: BRAIN/HEAD [...] hydrocephalus or significant midline shift. There is edup-ru-fgeprzug chronic microvascular ischemic changes and nrvu-jj-uaktyewq parenchymal volume loss. No acute, depressed calvarial fractures. Mild anterior frontal scalp swelling. Bilateral lens surgeries. CT/Brain/Head without Contrast IMPRESSION: No acute intracranial process. Mild anterior frontal scalp swelling. No acute calvarial defect. Reading Location: [facility] CC: Dr. Zoltan Garcia DO; Dr. 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 Donato Sepulveda MD; Dr. Armando Rich MD~ Signed [facility]01-31-2024 Discharge summary Author Colleen Walker [facility] June 05, 2023 7:54am Note Date/Time June 05, 2023 4 :38am [facility] Medical Records Department [address] [place] [address] Emergency Department Summary 06/05/23 MR#: [id number] Acct: [id number] Name: JUSTUS CHINCHILLA Rep #:[id number] : 1940 82 From: Colleen Gomez PCP: Dr. Basilio Flores MD Status:REG ER Location: ED HPI History of Present Illness Chief Complaint: Head Injury Informant: patient Narrative Narrative: Patient is an 82-year-old female presenting from [facility] after she injured her head. Patient [...] Is not on any blood thinners. Per custodial report patient was in the dining room at the table doing her puzzles which is her typical activity. Unclear if there was loss of consciousness. Was sent for evaluation of injuries. Tetanus Immunization: Unknown [facility] Medical History Anxiety and depression Arthritis Asthma [...] her baseline. No focal neurologic deficits appreciated Brewer Coma Scale: document GCS findings Spontaneous Obeys [...] Family Additional record(s) reviewed:: Prior outpatient record (custodial paperwork ) Lab Data Attestation: I reviewed [...] 76.3 H Lymph % (Auto) 13.6 L [place] % (Auto) 7.2 Eos % (Auto) 2.0 [...] Sl. Cloudy Urine pH 6.0 Ur Specific Fairfield 1.015 Urine Protein 15 H Urine Glucose [...] your Primary Care Provider. Call [facility] ([phone]) or report to the closest Emergency Room. Call 911 if necessary. 06/05/23 0750 <Electronically signed by Colleen Walker DO> Cosigner Signature (if applicable): CC: Dr. Basilio Flores MD ~ Signed [facility] Work Phone: Evaluation noteNo assessment information available [facility] Work Phone: Evaluation note* Diagnosis Onset Date Resolution Status Admit Date Abrasion of forehead acute October 18, 2024 9:38pm Acute UTI acute October 18 9:38pm Diabetic hypoglycemia acute Agus 2024 9:38pm Fall acute October 18 9:38pm Skin tear of forearm without complication acute October 18, 2024 9:38pm Traumatic hematoma of forehead acute October 18, 2024 9:38pm [facility] Work Phone: Hospital Discharge instructions Additional Instructions Lab work including CBC, BMP, urinalysis and CT of the head, cervical spine as well as x-ray of the right elbow do not show any acute injury or abnormalities. The cause of Justus's frequent falls is not clear however at this time I do not think she requires admission to the hospital.[facility] Work Phone: Reason for referral (narrative)No reason for referral information [facility]WPaul[facility] Work Phone: Chief Complaint Chief [...] Yes December 15 0 6:54pm Power of Bowling Floor Manager Yes December 15 020 6:54pm Advance Directive Response Recorded Date/ Time Advance Directives Yes October 13 12:44pm Living Will Yes December 15 0 5:54pm Power of Bowling Floor Manager Yes December 15 5:54pm Advance Directive Response Recorded Date/ Time Advance Directives Yes March 07, 2023 11:00am Living Will Yes March 07 11:00am Power of Bowling Floor Manager Yes March 07, 2023 11:00am Advance Directive Response Recorded Date/ Time Name of Medical Power of Bowling Floor Manager ABEBE VELEZ June 05, 2023 3:45am Advance Directives Yes March 07, 2023 11:00am Living Will Yes June 05 3:45am Power of Bowling Floor Manager Yes June 05, 2023 3:45am Advance Directive Response Recorded Date/ Time Name of Medical Power of Bowling Floor Manager ABEBE VELEZ June 05, 2023 3:45am Advance Directives Yes March 07, 2023 11:00am Living Will No June 08 8:10am Power of Bowling Floor Manager No June 08, 2023 8:10am Advance Directive Response Recorded Date/ Time Name of Medical Power of Bowling Floor Manager ABEBE VELEZ June 05, 2023 4:45am Advance Directives Yes March 07, 2023 12:00pm Living Will No June 08 9:10am Power of Bowling Floor Manager No June 08, 2023 9:10am Advance Directive Response Recorded Date/ Time Advance Directives Yes March 07, 2023 12:00pm Advance Directive Response Recorded Date/ Time Do you have a Healthcare Power of Bowling Floor Manager? Yes October 18, 2024 4:46pm Advance Directives Yes March 07, 2023 12:00pm Advance Directive Response Recorded Date/ Time Do you have a Healthcare Pow er of Bowling Floor Manager? Yes October 18, 2024 10:15pm Name of Medical Power of Bowling Floor Manager Ina Jaimes October 18, 2024 10:15pm Advance [...] Complaint and Reason for Visit Chief Complaint FDC LAB WOR K FDC PATIENT Chief Complaint FDC LAB WOR K FDC PATIENT MONTHLY EXAM Chief Complaint FDC LAB WOR K FDC PATIENT MONTHLY EXAM LABWORK Chief Complaint FDC PATIENT MONTHLY EXAM LABWORK Chief Complaint MONTHLY EXAM LABWORK FDC LABWORK FDC LABWORK MONTHLY EXAM FDC LABWORK Chief Complaint FDC LABWORK MONTHLY EXAM FDC LABWORK FDC LABWORK Chief Complaint MONTHLY EXAM FDC LABWORK FDC LABWORK FDC LABWORK Chief Complaint FDC LABWORK FDC LABWORK NEW SYMPTOMS/CONCERNS ACUTE CARE VISIT FDC LAB WORK FDC LAB WORK Chief Complaint FDC LABWORK NEW SYMPTOMS/CONCERNS ACUTE CARE VISIT FDC LAB WORK FDC LABWORK FDC LAB WORK MONTHLY EXAM FDC LABWORK NEW PROBLEM/CONCERN Chief Complaint MONTHLY EXAM FDC LABWORK NEW PROBLEM/CONCERN NEW PROBLEM NEW PROBLEM/CONCERN NEW PROBLEM NEW PROBLEM NEW PROBLEM FDC LABWORK Chief Complaint MONTHLY EXAM FDC LABWORK NEW PROBLEM/CONCERN NEW PROBLEM NEW PROBLEM/CONCERN NEW PROBLEM NEW PROBLEM NEW PROBLEM FDC LABWORK FDC LABWORK Chief Complaint NEW CONCERN FDC LABWORK MONTHLY EXAM FDC LAB WORK FDC LABWORK FDC LAB WORK MONTHLY EXAM MONTHLY EXAM FDC LAB WORK Chief Complaint NEW CONCERN FDC LABWORK MONTHLY EXAM FDC LAB WORK FDC LABWORK FDC LAB WORK MONTHLY EXAM MONTHLY EXAM FDC LAB WORK FDC LAB WORK Chief Complaint NEW CONCERN NEW CONCERN MONTHLY EXAM NEW CONCERN NEW CONCERN FDC LAB WORK FOLLOW UP FDC LAB WORK ACUTE CARE MONTHLY EXAM FDC LAB WORK Chief Complaint NEW CONCERN MONTHLY EXAM NEW CONCERN NEW CONCERN FDC LAB WORK FOLLOW UP FDC LAB WORK ACUTE CARE MONTHLY EXAM FDC LAB WORK FDC LABWORK FDC LABWORK Chief Complaint FDC LAB WOR K FOLLOW UP FDC LAB WORK ACUTE CARE MONTHLY EXAM FDC LAB WORK FDC LABWORK FDC LABWORK MONTHLY EXAM COLLAR TRIMMER HEAD INJURY Chief Complaint FOLLOW UP FDC LAB WORK ACUTE CARE MONTHLY EXAM FDC LAB WORK FDC LABWORK FDC LABWORK MONTHLY EXAM COLLAR TRIMMER NEW CONCERN MONTHLY EXAM - MD HEAD INJURY NEW CONCERN fall LABWORK Chief Complaint FDC LABWORK FDC LABWORK MONTHLY EXAM COLLAR TRIMMER NEW CONCERN MONTHLY EXAM - MD HEAD INJURY NEW CONCERN fall LABWORK FDC LAB WORK Chief Complaint Admit Date FDC LAB WORK April 21 5:00am MONTHLY EXAM May 19, 2024 4 :53pm NEW CONCERN June 01, 2024 5 :22pm FDC LAB WORK June 02, 2024 5:00am FDC LAB WORK June 09, 2024 5:00am FDC LAB WORK June 15 3:15pm NEW CONCERN June 26, 2024 5:54pm FDC LAB WORK July 14, 2024 4 :00am FDC LAB WORK July 15, 2024 5 :00am Chief Complaint Admit Date FDC LAB WORK April 21 5:00am MONTHLY EXAM May 19, 2024 4 :53pm NEW CONCERN June 01, 2024 5 :22pm FDC LAB WORK June 02, 2024 5:00am FDC LAB WORK June 09, 2024 5:00am FDC LAB WORK June 15 3:15pm NEW CONCERN June 26, 2024 5:54pm FDC LAB WORK July 14, 2024 4 :00am MONTHLY EXAM July 14, 2024 4:0 5pm FDC LAB WORK July 15, 2024 5 :00am Chief Complaint Admit Date MONTHLY EXAM May 19, 2024 4 :53pm NEW CONCERN June 01, 2024 5 :22pm FDC LAB WORK June 02, 2024 5:00am FDC LAB WORK June 09, 2024 5:00am [facility] June 15 3:15pm NEW CONCERN June 26, 2024 5:54pm [facility] July 14, 2024 4 :00am MONTHLY EXAM July 14, 2024 4:0 5pm [facility] July 15, 2024 5 :00am Chief Complaint Admit Date [facility] June 09, 2024 5:00am [facility] June 15 3:15pm NEW CONCERN June 26, 2024 5:54pm [facility] July 14, 2024 4 :00am MONTHLY EXAM July 14, 2024 4:0 5pm [facility] July 15, 2024 5 :00am MONTHLY EXAM August 17, 2024 4:4 9pm [facility] August 25, 2024 4 :00am Chief Complaint Admit Date [facility] June 15 3:15pm NEW CONCERN June 26, 2024 5:54pm [facility] July 14, 2024 4 :00am MONTHLY EXAM July 14, 2024 4:0 5pm [facility] July 15, 2024 5 :00am MONTHLY EXAM August 17, 2024 4:4 9pm [facility] August 25, 2024 4 :00am [facility] September 08, 2024 5:00 am Chief Complaint Admit Date NEW CONCERN June 26, 2024 5:54pm [facility] July 14, 2024 4 :00am MONTHLY EXAM July 14, 2024 4:0 5pm [facility] July 15, 2024 5 :00am MONTHLY EXAM August 17, 2024 4:4 9pm [facility] August 25, 2024 4 :00am [facility] September 08, 2024 5:00 am [...] Date NEW CONCERN June 26, 2024 5:54pm [facility] July 14, 2024 4 :00am MONTHLY EXAM July 14, 2024 4:0 5pm [facility] July 15, 2024 5 :00am MONTHLY EXAM August 17, 2024 4:4 9pm [facility] August 25, 2024 4 :00am [facility] September 08, 2024 5:00 am SEVERE HYPOGLYCEMIA/UTI October 18, 2024 9:38pm SEVERE HYPOGLYCEMIA/UTI October 19, 2024 6:52pm SEVERE HYPOGLYCEMIA/UTI October 20, 2024 11:11am Chief Complaint Admit Date MONTHLY EXAM August 17, 2024 4:4 9pm [facility] August 25, 2024 4 :00am [facility] September 08, 2024 5:00 am MONTHLY EXAM September 15, 2024 4:00p m [facility] October 06, 2024 5:0 0am [...] MONTHLY EXAM August 17, 2024 4:4 9pm [facility] August 25, 2024 4 :00am [facility] September 08, 2024 5:00 am MONTHLY EXAM September 15, 2024 4:00p m [facility] October 06, 2024 5:0 0am SEVERE HYPOGLYCEMIA/UTI October 18, 2024 9:38pm SEVERE HYPOGLYCEMIA/UTI October 19, 2024 6:52pm SEVERE HYPOGLYCEMIA/UTI October 20, 2024 11:11am RE ADMISSION EXAM October 21, 2024 5:45 pm Chief Complaint Admit Date [facility] August 25, 2024 4 :00am [facility] September 08, 2024 5:00 am MONTHLY EXAM September 15, 2024 4:00p m [facility] October 06, 2024 5:0 0am SEVERE HYPOGLYCEMIA/UTI October 18, 2024 9:38pm SEVERE HYPOGLYCEMIA/UTI October 19, 2024 6:52pm SEVERE HYPOGLYCEMIA/UTI October 20, 2024 11:11am RE ADMISSION EXAM October 21, 2024 5:45 pm Monthly Exam November 10, 2024 4:19p m [facility] November 17, 2024 4: 50am Chief Complaint Admit Date [facility] September 08, 2024 5:00 am MONTHLY EXAM September 15, 2024 4:00p m [facility] October 06, 2024 5:0 0am SEVERE HYPOGLYCEMIA/UTI October 18, 2024 9:38pm SEVERE HYPOGLYCEMIA/UTI October 19, 2024 6:52pm SEVERE HYPOGLYCEMIA/UTI October 20, 2024 11:11am RE ADMISSION EXAM October 21, 2024 5:45 pm Monthly Exam November 10, 2024 4:19p m [facility] November 17, 2024 4: 50am MONTHLY EXAM December 04, 2024 4:1 5pm [facility] December 08, 2024 5 :00am Chief Complaint Admit Date SEVERE HYPOGLYCEMIA/UTI October 18, 2024 9:38pm SEVERE HYPOGLYCEMIA/UTI October 19, 2024 6:52pm SEVERE HYPOGLYCEMIA/UTI October 20, 2024 11:11am RE ADMISSION EXAM October 21, 2024 5:45 pm Monthly Exam November 10, 2024 4:19p m [facility] November 17, 2024 4: 50am MONTHLY EXAM December 04, 2024 4:1 5pm [facility] December 08, 2024 5 :00am [facility] December 29, 2024 4:00am [facility] December 30, 2024 5:00am Chief Complaint Admit Date Monthly Exam November 10, 2024 4:19p m [facility] November 17, 2024 4: 50am MONTHLY EXAM December 04, 2024 4:1 5pm [facility] December 08, 2024 5 :00am [facility] December 29, 2024 4:00am [facility] December 30, 2024 5:00am MONTHLY EXAM January 12, 2025 3:54pm NEW CONCERN January 26, 2025 3:02pm Chief Complaint Admit Date Monthly Exam November 10, 2024 4:19p m [facility] November 17, 2024 4: 50am MONTHLY EXAM December 04, 2024 4:1 5pm [facility] December 08, 2024 5 :00am [facility] December 29, 2024 4:00am [facility] December 30, 2024 5:00am MONTHLY EXAM January 12, 2025 3:54pm NEW CONCERN January 26, 2025 3:02pm [facility] February 09, 2025 5:25am Summary [...] 2024 End: June 26, 2024 Debora Schneider COLLAR TRIMMER, COLLAR TRIMMER-C Attending Provider Active Start: June 26, [...] 2024 End: August 17, 2024 Debora Schneider COLLAR TRIMMER, COLLAR TRIMMER-C Attending Provider Active Start: August 17, [...] 2024 End: August 24, 2024 Debora Schneider COLLAR TRIMMER, COLLAR TRIMMER-C Other Provider Active S tart: August [...] MD Primary Care Provider Active Debora Schneider COLLAR TRIMMER, COLLAR TRIMMER-C Attending Provider Active Team Status: Inactive [...] Flores MD Primary Care Provider Active Dr. oClleen Walker DO Attending Provider, Emergency P rovider [...] 2024 End: June 01, 2024 Debora Schneider NP COLLAR TRIMMER-C Attending Provider Active Start: June 01, [...] 2024 End: August 17, 2024 Debora Schneider COLLAR TRIMMER, COLLAR TRIMMER-C Attending Provider Active Start: August 17, [...] 2024 End: August 24, 2024 Debora Schneider COLLAR TRIMMER, COLLAR TRIMMER-C Other Provider Active S tart: August [...] End: October 21, 2024 Debora Schneider NP, COLLAR TRIMMER-C Attending Provider Active Start: October 21, [...] 2024 End: August 24, 2024 Debora Schneider COLLAR TRIMMER, COLLAR TRIMMER-C Other Provider Active S tart: August [...] 2024 End: October 21, 2024 Debora Schneider COLLAR TRIMMER, COLLAR TRIMMER-C Attending Provider Active Start: October 21, [...] 2024 End: October 21, 2024 Debora Schneider COLLAR TRIMMER, COLLAR TRIMMER-C Attending Provider Active Start: October 21, [...] 2024 End: December 04, 2024 Debora Schneider COLLAR TRIMMER, COLLAR TRIMMER-C Attending Provider Active Start: December 04, 2024 [...] End: October 20, 2024 Dr. Zoltan Garcia , DO Emergency Departm ent Physician Active Start: October 18, 2024 End: October 20, 2024 Dr. Anali Coello DO Admitting physician Active Start: October 18, 2024 End: October 20, 2024 Dr. Anali Coello , Nurse Practitioner Active S tart: October 18, [...] 2024 End: October 21, 2024 Debora Schneider COLLAR TRIMMER, COLLAR TRIMMER-C Attending physician Active Start: October 21, 2024 [...] 2024 End: December 04, 2024 Debora Schneider COLLAR TRIMMER, COLLAR TRIMMER-C Attending physician Active Start: December 04, 2024 [...] 2024 End: December 04, 2024 Debora Schneider COLLAR TRIMMER, COLLAR TRIMMER-C Attending physician Active Start: December 04, 2024 [...] 2025 End: January 26, 2025 Debora Schneider COLLAR TRIMMER, COLLAR TRIMMER-C Attending physician Active Start: January 26, 2025 [...] section and content) DATE CREATED AUTHOR 03/18/2025 [facility] FOR RECORDS PERTAINING TO PATIENTS WHO [...] BE BASED ON THE PRIMARY CLINICAL RECORDS. [employer] provides no warranty or guarantee of the accuracy or completeness of information in this document.
[2025-04-22 09:35] LABS: Anion Gap 11 (5-15); BUN 15 mg/dL (4-19); BUN/Creat Ratio 19.1 RATIO (10-20); Calcium,Total 9.7 mg/dL (7.6-11.0); Carbon Dioxide 27.4 mmol/L (21.0-32.0); Chloride 99 mmol/L (98-108); Glucose 364 mg/dL (70-99); Potassium 3.9 mmol/L (3.3-5.1)
== END ==
LOC: OLS.WHLEAS 05:00
PROVIDERS: PCP Internal Medicine; Visit Provider Internal Medicine
DX: G20.A1 Parkinson's disease without dyskinesia, without mention of fluctuations (principal); E11.22 Type 2 diabetes mellitus with diabetic chronic kidney disease; N18.30 Chronic kidney disease, stage 3 unspecified; E11.21 Type 2 diabetes mellitus with diabetic nephropathy
CPT/HCPCS: 36415; 80048

== ENCOUNTER → 2025-05-04 05:00 | Outpatient (REF) | payer MEDICARE, MEDICAID, SELFPAY ==
--- OUTSIDE RECORDS SUMMARY | 2025-05-04 03:50 | XMS RPT_ITS | CCD ---
Author Organization [facility] Care Team Providers Care Ware Server Name Role Phone Trent HILARIO, Rachael Sarabia Unavailable Dr. Basilio Flores Primary Care Provider Tickangelic ACCOUNTING MANAGER, ACCOUNTING MANAGER-C Debora Attending Provider Dr. Basilio Anderson Primary Care Provider Dr. Basilio Flores Primary Care Provider Tickton ACCOUNTING MANAGER, ACCOUNTING MANAGER-C Debora Attending Provider Dr. Basilio Anderson Primary Care Provider [place]ton ACCOUNTING MANAGER, ACCOUNTING MANAGER-C Debora Attending Provider Dr. Basilio Anderson Primary Care Provider Dr. Donato Sepulveda Attending Provider Tickton ACCOUNTING MANAGER, ACCOUNTING MANAGER-C Debora Attending Provider Dr. Basilio Anderson Primary Care Provider Dr. Donato Sepulveda Attending Provider Tickton ACCOUNTING MANAGER, ACCOUNTING MANAGER-C Debora Attending Provider Dr. Basilio Anderson Primary Care Provider Tickton ACCOUNTING MANAGER, ACCOUNTING MANAGER-C Debora Attending Provider Dr. Donato Centeno Attending Provider [phone] Dr. Basilio Flores Primary Care Provider Tickton ACCOUNTING MANAGER, ACCOUNTING MANAGER-C Debora Attending Provider Dr. Donato Centeno Attending Provider Dr. Basilio Flores Primary Care Provider Tickton ACCOUNTING MANAGER, ACCOUNTING MANAGER-C Debora Attending Provider Dr. Basilio Anderson Primary Care Provider Tickton ACCOUNTING MANAGER, ACCOUNTING MANAGER-C Debora Attending Provider Dr. Donato Sepulveda Attending Provider Dr. Basilio Flores Primary Care Provider Tickton ACCOUNTING MANAGER, ACCOUNTING MANAGER-C Debora Attending Provider Dr. Donato Sepulveda Attending Provider Dr. Basilio Flores MD Primary Care Provider Donato Sepulveda MD Attending Provider Dr. Donato Frederick MD Attending Provider Tickangelic ACCOUNTING MANAGER-C, Debora Attending Provider Donato Sepulveda MD Referring Provider Dr. Basilio Owens MD Primary Care Provider Donato Sepulveda MD Attending Provider UnavailDr. Armando Elizabeth MD Attending Provider [phone] Dr. Armando Rich MD Referring Provider Derick HILARIO, Dr. Sewell Primary Care Provider Tickangelic ACCOUNTING MANAGER-C, Debora Other Provider Dr. Basilio Flores MD Primary Care Provider Donato Sepulveda MD Attending Provider Unavaila keli Schneider ACCOUNTING MANAGER-C, Debora Attending Provider Dr. Donato Sepulveda MD [...] HILARIO, Dr. Ángel Triana Other Provider Tickton ACCOUNTING MANAGER-C, Debora Attending Provider Derick HILARIO, Donato Attending Provider Unavailyifan Sepulveda MD, Donato Referring Provider Selwyn Sepulveda MD, Dr. Sewell Attending Provider Tickangelic ACCOUNTING MANAGER-C, Debora Attending Provider Derick HILARIO, Dr. Sewell [...] HILARIO, Dr. Ángel Triana Nurse Practitioner Wyatt ACCOUNTING MANAGER-C, Debora Attending Physician Derick HILARIO, Dr. Sewell Attending Physician Donato Sepulveda MD Attending Physician Unavail able Derick HILARIO, Dr. Sewell Primary Care Physician Wyatt ACCOUNTING MANAGER-C, Debora Attending Physician Donato Sepulveda Primary Care [...] Unavailable Oleghe, Efewongbe Primary Care Unavailable Tickton ACCOUNTING MANAGER, Debora Consulting Unavailable Armando Rich Attending Unavailable Armando Rich Referring Unavailable Oleghe, Efewongbe Primary Care Unavailable Tickton ACCOUNTING MANAGER, Debora Attending Unavailable Oleghe, Efewongbe Primary Care [...] e Oleghe, Efewongbe Primary Care Unavailable Tickton ACCOUNTING MANAGER, Debora Attending Unavailable Oleghe, Efewongbe Primary Care Unavailable Oleghe, Efewongbe Attending Unavailable Tickton ACCOUNTING MANAGER, Debora Attending Unavailable Oleghe, Efewongbe Primary Care Unavailable Tickton ACCOUNTING MANAGER, Debora Attending Unavailable Oleghe, Efewongbe Primary Care Unavailable Oleghe OLS, Efewongbe Attending Unavailabl e Oleghe, Efewongbe Primary Care Unavailable Tickton ACCOUNTING MANAGER, Debora Attending Unavailable Oleghe, Efewongbe Primary Care Unavailable Flores, Basilio K Primary Care Unavailable Oleghe OLS, Efewongbe Attending Unavailabl e Flores, Basilio K Primary Care Unavailable Tickton ACCOUNTING MANAGER, Debora Attending Unavailable Flores, Basilio K Primary Care Unavailable Oleghe, Efewongbe Attending Unavailable Tickton ACCOUNTING MANAGER, Debora Attending Unavailable Oleghe, Efewongbe Primary Care Unavailable Flores, Basilio K Primary Care Unavailable Tickton ACCOUNTING MANAGER, Deobra Attending Unavailable Anali Coello Admitting Unavailable Oleghe, [...] source) Acetaminophen / HYDROcodone Drug Allergy unknown [facility] Work Phone: (1 source) Acetaminophen / oxyCODONE Drug Allergy 019 unknown [facility] Work Phone: (1 source) Acetaminophen / Propoxyphene Drug Allergy 019 unknown [facility] Work Phone: (1 source) Baclofen Drug Allergy unknown [facility] Work Phone: (1 source) Carbidopa / Levodopa Drug Allergy 019 unknown [facility] Work Phone: (1 source) Ibuprofen Drug Allergy 11-11-2 019 kidney disease [facility] Work Phone: (1 source) Ketoprofen Drug Allergy unknown [facility] Work Phone: (1 source) LORazepam Drug Allergy unknown [facility] Work Phone: (1 source) metFORMIN Drug Allergy unknown [facility] Work Phone: (20 sources) Naloxone; Translations: [naloxone] Drug Allergy unknown, Nausea [facility] Work Phone: (1 source) oxaprozin Drug Allergy unknown [facility] Work Phone: (1 source) rofecoxib Drug Allergy unknown [facility] Work Phone: (1 source) rosiglitazone Drug Allergy siblings had severe reactions [facility] Work Phone: (1 source) Sertraline Drug Allergy unknown [facility] Work Phone: (1 source) Simvastatin Drug Allergy unknown [facility] Work Phone: (1 source) Sulfamethoxazole / Trimethoprim Drug Allergy unknown [facility] Work Phone: (1 source) venlafaxine; Translations: [EFFEXOR] Drug Allergy unknown [facility] Work Phone: (20 sources) Carbidopa Drug Allergy 018 Nausea [facility] (20 sources) HYDROcodone; Translations: [hydrocodone bitartrate] Drug Allergy Nausea [facility] (20 sources) Ketoprofen Drug Allergy Unknown [facility] (20 sources) Levodopa Drug Allergy Nausea [facility] (20 sources) LORazepam Drug Allergy hallucination [facility] (20 sources) metFORMIN; Translations: [metformin HCl] Drug Allergy Nausea [facility] (20 sources) oxaprozin Drug Allergy Nausea [facility] (20 sources) oxyCODONE; Translations: [oxycodone HCl] Drug Allergy Nausea [facility] (20 sources) Propoxyphene; Translations: [propoxyphene HCl] Drug Allergy Nausea [facility] (20 sources) rofecoxib Drug Allergy Nausea [facility] (20 sources) rosiglitazone; Translations: [rosiglitazone maleate] Drug Allergy Nausea [facility] (20 sources) Sertraline; Translations: [sertraline HCl] Drug Allergy haullucination [facility] (20 sources) Simvastatin Drug Allergy Nausea [facility] (20 sources) Sulfamethoxazole Drug Allergy Rash [facility] (20 sources) Trimethoprim Drug Allergy Rash [facility] (20 sources) venlafaxine; Translations: [venlafaxine HCl] Drug Allergy Nausea [facility] (20 sources) NSAIDS (Non-Steroidal Anti-Inflamma; Translations: [NSAIDS (Non-Steroidal Anti-Inflamma] Propensity to adverse reactions PT UNSURE OF REACTION [facility] (1 source) Carbidopa Drug Allergy [facility] (1 source) Ketoprofen Drug Allergy [facility] (1 source) Levodopa Drug Allergy [facility] (1 source) LORazepam Drug Allergy [facility] (1 source) oxaprozin Drug Allergy [facility] (1 source) rofecoxib Drug Allergy [facility] (1 source) Simvastatin Drug Allergy [facility] (1 source) Sulfamethoxazole Drug Allergy 025 [facility] (1 source) Trimethoprim Drug Allergy 025 [facility] Medications Current Medications Medication Drug Class(es) Dates Sig (Normalized) Sig (Original) acetaminophen 325 mg oral tablet (20 sources) Start: 10-18-2024 take 2 tablets by mouth every four hours as needed for pain Start: 03-16-2019 TYLENOL 325 MG CAPS takes two tabs every 4 hours as needed ACETAMINOPHEN [id number] Rachael Newman MD Start: 09-20-2017 take 1 [...] mg/ml ophthalmic solution (4 sources) Plasma Volume Business Economist Start: 10-18-2024 take 0.1-0.3 drop(s) into the [...] night and 40mg twice daily FUROSEMIDE TABS [id number] Rachael Newman MD glucagon (rdna) 1 mg [...] takes 46 units twice daily INSULIN GLARGINE [id number] Rachael Newman MD Start: 04-06-2015 End: 09-26-2017 [...] three times daily as needed OXYCODONE HCL [id number] Rachael Newman MD Start: 07-14-2015 End: 09-20-2017 [...] as directed prior to dental procedures AMOXICILLIN [id number] Rachael Newman MD aspirin 325 mg oral [...] takes one tab once daily ATORVASTATIN CALCIUM [id number] Rachael Newman MD bacillus coagulans [id number] unt / inulin 250 mg oral capsule [...] TABS takes one tab daily DIPHENHYDRAMINE HCL [id number] Rachael Newman MD Start: 03-16-2019 BENADRYL ALLER GY 25 MG CAPS takes one tab once daily DIPHENHYDRAMINE HCL [id number] Rachael eNwman MD doxepin hydrochloride 10 mg oral capsule (1 source) Tricyclic Antidepressant Start: 03-16-2019 DOXEPIN HCL 10 MG CAPS takes two tabs daily DOXEPIN HCL [id number] Rachael Newman MD famotidine 20 mg oral [...] CAPS takes one tab once daily GABAPENTIN [id number] Rachael Newman MD Insulin Glargine 100 UNIT/ML [...] sliding scale three times daily INSULIN ASPART [id number] Rachael Newman MD Start: 04-25-2015 End: 07-14-2015 [...] TABS takes one tab once daily LISINOPRIL [id number] Rachael Newman MD melatonin 3 mg oral tablet (20 sources) Start: 12-16-2019 End: 06-08-2023 take 1 tablet by mouth at bedtime Melatonin 3 MG tablet Discontinued 3 mg PO AT BEDTIME December 16, 2019 12:00am June 08, 2023 9:23am SLEEP Start: 03-16-2019 MELATONIN 10 M G TABS takes one tab once daily MELATONIN [id number] Rachael Newman MD meloxicam 7.5 mg oral [...] CPDR takes one tab once daily OMEPRAZOLE [id number] Rachael Newman MD polyethylene glycol 400 10 [...] takes one tab once daily RANITIDINE HCL [id number] Rachael Newman MD rOPINIRole 0.5 mg oral [...] 02-17-2025 Anion gap [Moles/Vol] 11 mmol/L 09-17 [facility] BUN/creatinine ratioOrdered By: Donato Sepulveda on 02-17-2025 Urea nitrogen/Creatinine [Mass ratio] 13.1 mg/mg 02-22 [facility] Carbon dioxide, total [Moles /volume] in Central venous bloodOrdered By: Donato Sepulveda on 02-17-2025 CO2 [Moles/Vol] 28.1 mmol/L 21.0-32.0 [facility] Chloride assayOrdered By: Livier Sepulveda on 02-17-2025 Chloride [Moles/Vol] 98 mmol/L 98-108 [facility] Glomerular filtration rate ( GFR) estimation/1.73 sq m using serum, plasma, or whole bOrdered By: Donato Sepulveda on 02-17-2025 GFR/1.73 sq M.predicted among non-blacks MDRD (S/P/Bld) [Vol rate/Area] 80 mL/min/{1.73_m2} >60 [facility] Comment on above: mL/min/1.73m2 CKD-EP I Creatinine Equation (2020) Potassium measurement (mass/ volume)Ordered By: Donato Sepulveda on 02-17-2025 Potassium (Unsp spec) [Mass/Vol] 4.1 mmol/L 3.3-5.1 [facility] Serum creatinine measurement (mass/volume)Ordered By: Donato Sepulveda on 02-17-2025 Creatinine [Mass/Vol] 0.75 mg/dL 0.70-1.20 [facility] Serum glucose measurement (m ass/volume)Ordered By: Donato Sepulveda on 02-17-2025 Glucose [Mass/Vol] 366 mg/dL High 70-99 [facility] Serum or plasma calcium serge urement (mass/volume)Ordered By: Donato Sepulveda on 02-17-2025 Calcium [Mass/Vol] 9.2 mg/dL 7.6-11.0 [facility] Serum or plasma urea nitroge n measurement (mass/volume)Ordered By: Donato Sepulveda on 02-17-2025 Urea nitrogen [Mass/Vol] 10 mg/dL 4-19 [facility] Sodium levelOrdered By: Raul Sepulveda on 02-17-2025 Sodium [Moles/Vol] 137 mmol/L 133-145 [facility] Potassium measurement (mass/ volume)Ordered By: Donato Sepulveda on 12-30-2024 Potassium (Unsp spec) [Mass/Vol] 4.3 mmol/L 3.3-5.1 [facility] Anion gap in Serum or Plasma Ordered By: Donato Sepulveda on 12-29-2024 Anion gap [Moles/Vol] 10 mmol/L 5-15 [facility] BUN/creatinine ratioOrdered By: Donato Sepulveda on 12-29-2024 Urea nitrogen/Creatinine [Mass ratio] 18.5 mg/mg 10-20 [facility] Carbon dioxide, total [Moles /volume] in Central venous bloodOrdered By: Donato Sepulveda on 12-29-2024 CO2 [Moles/Vol] 28.6 mmol/L 21.0-32.0 [facility] Chloride assayOrdered By: Livier Seuplveda on 12-29-2024 Chloride [Moles/Vol] 97 mmol/L Low 98-108 [facility] Glomerular filtration rate ( GFR) estimation/1.73 sq m using serum, plasma, or whole bOrdered By: Donato Sepulveda on 12-29-2024 GFR/1.73 sq M.predicted among non-blacks MDRD (S/P/Bld) [Vol rate/Area] 81 mL/min/{1.73_m2} >60 [facility] Comment on above: mL/min/1.73m2 CKD-EP I Creatinine Equation (2020) Hemoglobin A1c percentageOrd ered By: Donato Sepulveda on 12-29-2024 HbA1c (Bld) [Mass fraction] 9.3 % High <5.7 [facility] Comment on above: Normal < 5.7 % Predi abetic 5.7 - 6.4 % Diabetic >or= 6.5 % Please note range changes. Potassium measurement (mass/ volume)Ordered By: Donato Sepulveda on 12-29-2024 Potassium (Unsp spec) [Mass/Vol] 5.2 mmol/L High 3.3-5.1 [facility] Serum creatinine measurement (mass/volume)Ordered By: Donato Sepulveda on 12-29-2024 Creatinine [Mass/Vol] 0.74 mg/dL 0.70-1.20 [facility] Serum glucose measurement (m ass/volume)Ordered By: Donato Sepulveda on 12-29-2024 Glucose [Mass/Vol] 336 mg/dL High 70-99 [facility] Serum or plasma calcium serge urement (mass/volume)Ordered By: Livierstudyanchar Lombardirjnoris on 12-29-2024 Calcium [Mass/Vol] 9.4 mg/dL 7.6-11.0 [facility] Serum or plasma urea nitroge n measurement (mass/volume)Ordered By: Donato Sepulveda on 12-29-2024 Urea nitrogen [Mass/Vol] 14 mg/dL 4-19 [facility] Sodium levelOrdered By: Raul medrano Harjitrjnoris on 12-29-2024 Sodium [Moles/Vol] 135 mmol/L 133-145 [facility] Hemoglobin A1c percentageOrd ered By: Livierstudyanchar Lombardirjnoris on 12-08-2024 HbA1c (Bld) [Mass fraction] 10.2 % High <5.7 [facility] Comment on above: Normal < 5.7 % Predi abetic 5.7 - 6.4 % Diabetic >or= 6.5 % Please note range changes. Culture, Blood (WB)on 2024 CUB Blood cultures x2, from two different sites No growth in 5 days. Normal [facility] Comment on above: Performed By: #### L 501.080 #### [facility] [address] [facility] [address] Bedside Glucoseon 10-20-2024 FINGERSTICK GLU 200 mg/dL High 74-106 [facility] Comment on above: Result Comment: JEWELS GEMENT OF PATIENT CARE PER NURSING PROTOCOL Performed By: #### L 501.080 #### [facility] [address] [facility] [address] FINGERSTICK GLU 296 mg/dL High 74-106 [facility] Comment on above: Result Comment: JEWELS GEMENT OF PATIENT CARE PER NURSING PROTOCOL Performed By: #### L 501.080 #### [facility] [address] [facility] [id number] FINGERSTICK GLU 154 mg/dL High 74-106 [facility] Comment on above: Result Comment: JEWELS RAJPUT OF PATIENT CARE PER NURSING PROTOCOL Performed By: #### L 501.080 #### [facility] [address] [place], [place], [id number] [facility] deOrdered By: Ángel Lam on 10-20-2024 Glucose [Mass/Vol] 200 mg/dL High 74-106 [facility] Comment on above: MANAGEMENT OF PATIEN T CARE PER NURSING PROTOCOL Urine Cultureon 10-20-2024 [facility] Escherichia coli [place] Count 50,000-80,000 Escherichia coli: REACTION Ampicillin Islt [...] TMP SMX Islt BRANDEE <=20 S Normal [facility] Comment on above: Performed By: #### L 501.080 #### [facility] [address] [place], [place], [id number] Absolute lymphocyte countOrd ered By: Anali Coello on 10-19-2024 Lymphocytes Auto (Unsp spec) [#/Vol] 1.48 10*3/uL 0.83-4.51 [facility] Absolute neutrophil countOrd ered By: Anali Coello on 10-19-2024 Neutrophils (Bld) [#/Vol] 4.8 10*3/uL 2.0-7.7 [facility] Anion gap in Serum or Plasma Ordered By: Anali Coello on 10-19-2024 Anion gap [Moles/Vol] 10 mmol/L 5-15 [facility] Automated lymphocyte count a s percentage of total leukocytesOrdered By: Anali Coello on 10-19-2024 Lymphocytes/100 WBC Auto (Unsp spec) 21.5 % 19-41 [facility] BUN/creatinine ratioOrdered By: Anali Coello on 10-19-2024 Urea nitrogen/Creatinine [Mass ratio] 11.3 mg/mg 10-20 [facility] Basophil percentageOrdered B y: Anali Coello on 10-19-2024 Basophils/100 WBC (Bld) 0.3 % 0-1 [facility] Bedside Glucoseon 10-19-2024 FINGERSTICK GLU 313 mg/dL High 74-106 [facility] Comment on above: Result Comment: JEWELS GEMENT OF PATIENT CARE PER NURSING PROTOCOL Performed By: #### L 501.080 #### [facility] [address] [place], [address] FINGERSTICK GLU 291 mg/dL High [address] [place] [address] Comment on above: Result Comment: JEWELS GEMENT OF PATIENT CARE PER NURSING PROTOCOL Performed By: #### L 501.080 #### [facility] [address] [place], [address] FINGERSTICK GLU 220 mg/dL High [address] [facility] Comment on above: Result Comment: JEWELS GEMENT OF PATIENT CARE PER NURSING PROTOCOL Performed By: #### L 501.080 #### [facility] [address] [place], [address] FINGERSTICK GLU 132 mg/dL High [address] [facility] Comment on above: Result Comment: JEWELS GEMENT OF PATIENT CARE PER NURSING PROTOCOL Performed By: #### L 501.080 #### [facility] [address] [place], [address] FINGERSTICK GLU 112 mg/dL High [facility]106 [facility] Comment on above: Result Comment: JEWELS GEMENT OF PATIENT CARE PER NURSING PROTOCOL Performed By: #### L 501.080 #### [facility] [address] [place], [address] FINGERSTICK GLU 177 mg/dL High -106 [facility] Comment on above: Result Comment: JEWELS GEMENT OF PATIENT CARE PER NURSING PROTOCOL Performed By: #### L 501.080 #### [facility] [address] [place], [address] FINGERSTICK GLU 170 mg/dL High 74-106 [facility] Comment on above: Result Comment: JEWELS GEMENT OF PATIENT CARE PER NURSING PROTOCOL Performed By: #### L 501.080 #### [facility] [address] [place], [address] FINGERSTICK GLU 135 mg/dL High 74-106 [facility] Comment on above: Result Comment: JEWELS GEMENT OF PATIENT CARE PER NURSING PROTOCOL Performed By: #### L 501.080 #### [facility] [address] [place], [address] Bilirubin, totalOrdered By: Anali Coello on 10-19-2024 Bilirubin [Mass/Vol] 0.42 mg/dL 0.00-1.30 [facility] CBC W/Diff, Automatedon 10-04 Absolute Lymph 1.48 X10 3/uL Normal 0.83-4.51 [facility] Comment on above: Performed By: #### L 501.080 #### [facility] [address] [place], [address] Absolute Neut 4.8 X10 3/uL Normal 2.0-7.7 [facility] Comment on above: Performed By: #### L 501.080 #### [facility] [address] [place], [address] Basophils/100 WBC (Bld) 0.3 % Normal 0-1 [facility] Comment on above: Performed By: #### L 501.080 #### [facility] [address] [place], [address] Eosinophils/100 WBC (Bld) 0.6 % Normal 0-5 [facility] Comment on above: Performed By: #### L 501.080 #### [facility] [address] [place], [address] Erythrocyte distribution width (RBC) [Ratio] 12.9 % Normal 11.6-14.6 [facility] Comment on above: Performed By: #### L 501.080 #### [facility] [address] [place], [address] Hematocrit (Bld) [Volume fraction] 38.0 % Normal 37-47 [facility] Comment on above: Performed By: #### L 501.080 #### [facility] [address] [place], [address] Hemoglobin (Bld) [Mass/Vol] 12.4 g/dL Normal 12.0-15.0 [facility] Comment on above: Performed By: #### L 501.080 #### [facility] [address] [place], [address] IG% 0.300 Normal 0.0-0.9 [facility] Comment on above: Result Comment: IG% - Immature Granulocytes (promyelocytes, myelocytes and metamyelocytes) > 1% indicates that a LEFT SHIFT is Present. Performed By: #### L 501.080 #### [facility] [address] [place], [address] Lymphocytes/100 WBC (Bld) 21.5 % Normal 19-41 [facility] Comment on above: Performed By: #### L 501.080 #### [facility] [address] [place], [address] MCH (RBC) [Entitic mass] 29.7 pg Normal 27.0-32.0 [facility] Comment on above: Performed By: #### L [id number] #### [facility] [address] [place], [address] MCHC (RBC) [Mass/Vol] 32.6 g/dL Normal 32-36 [facility] Comment on above: Performed By: #### L 501.080 #### [facility] [address] [place], [address] MCV (RBC) [Entitic vol] 90.9 fL Normal 81-99 [facility] Comment on above: Performed By: #### L 501.080 #### [facility] [address] [place], [address] Monocytes/100 WBC (Bld) 7.3 % Normal 0-10 [facility] Comment on above: Performed By: #### L 501.080 #### [facility] [address] [place], [address] Neutrophils/100 WBC (Bld) 70.0 % Normal 47-70 [facility] Comment on above: Performed By: #### L [id number] #### [facility] [address] [place], [address] Nucleated RBC (Bld) [#/Vol] 0 10*3/uL Normal 0-5 [facility] Comment on above: Performed By: #### L 501.080 #### [facility] [address] [place], [address] Platelet mean volume (Bld) [Entitic vol] 9.4 fL Normal 6.2-12.0 [facility] Comment on above: Performed By: #### L 501.080 #### [facility] [address] [place], [address] Platelets (Bld) [#/Vol] 181 10*3/uL Normal 150-450 [facility] Comment on above: Performed By: #### L 501.080 #### [facility] [address] [place], [address] RBC (Bld) [#/Vol] 4.18 10*6/uL Low 4.2-5.4 [facility] Comment on above: Performed By: #### L 501.080 #### [facility] [address] [place], [address] RDW SD 42.5 fl Normal 35.1-43.9 [facility] Comment on above: Performed By: #### L 501.080 #### [facility] [address] [place], [address] WBC (Bld) [#/Vol] 6.9 10*3/uL Normal 4.4-11.0 [facility] Comment on above: Performed By: #### L 501.080 #### [facility] [address] [place], [address] Carbon dioxide, total [Moles /volume] in Central venous bloodOrdered By: Anali Coello on 10-19-2024 CO2 [Moles/Vol] 23.7 mmol/L 21.0-32.0 [facility] Chloride assayOrdered By: Medina Coello on 10-19-2024 Chloride [Moles/Vol] 103 mmol/L 98-108 [facility] Comprehensive Metabolic Prof ilon 10-19-2024 Albumin [Mass/Vol] 3.6 g/dL Normal 3.4-4.8 [facility] Comment on above: Performed By: #### L 501.080 #### [facility] [address] [place], [address] Albumin/Globulin [Mass ratio] 1.5 {ratio} Normal 0.9-2.4 [facility] Comment on above: Performed By: #### L 501.080 #### [facility] [address] [place], [address] ALK PHOS 44 U/L Normal 35-104 [facility] Comment on above: Performed By: #### L 501.080 #### [facility] [address] [place], [address] ALT [Catalytic activity/Vol] 9 U/L Normal <=34 [facility] Comment on above: Performed By: #### L 501.080 #### [facility] [address] [place], [address] AST [Catalytic activity/Vol] 24 U/L Normal <=31 [facility] Comment on above: Performed By: #### L 501.080 #### [facility] [address] [place], [address] Bilirubin [Mass/Vol] 0.42 mg/dL Normal 0.00-1.30 [facility] Comment on above: Performed By: #### L 501.080 #### [facility] [address] [place], [address] BUN/CRE 11.3 RATIO Normal 10-20 [facility] Comment on above: Performed By: #### L 501.080 #### [facility] [address] [place], [address] Calcium [Mass/Vol] 8.7 mg/dL Normal 7.6-11.0 [facility] Comment on above: Performed By: #### L 501.080 #### [facility] [address] [place], [address] Chloride [Moles/Vol] 103 mmol/L Normal 98-108 [facility] Comment on above: Performed By: #### L 501.080 #### [facility] [address] [place], [address] CO2 [Moles/Vol] 23.7 mmol/L Normal 21.0-32.0 [facility] Comment on above: Performed By: #### L 501.080 #### [facility] [address] [place], [address] Creatinine [Mass/Vol] 0.55 mg/dL Low 0.70-1.20 [facility] Comment on above: Performed By: #### L 501.080 #### [facility] [address] [place], [address] ECRCL 45.71 ml/min Low 50-250 [facility] Comment on above: Performed By: #### L 501.080 #### [facility] [address] [place], [address] GAP 10 Normal 5-15 [facility] Comment on above: Performed By: #### L 501.080 #### [facility] [address] [place], [address] GFR/1.73 sq M.predicted among non-blacks MDRD (S/P/Bld) [Vol rate/Area] 92 mL/min/{1.73_m2} Normal >60 [facility] Comment on above: Result Comment: mL/m in/1.73m2 CKD-EPI Creatinine Equation (2020) Performed By: #### L 501.080 #### [facility] [address] [place], [address] Globulin (S) [Mass/Vol] 2.4 g/dL Normal 2.2-4.2 [facility] Comment on above: Performed By: #### L 501.080 #### [facility] [address] [place], [address] Glucose [Mass/Vol] 132 mg/dL High 70-99 [facility] Comment on above: Performed By: #### L 501.080 #### [facility] [address] [place], [address] Potassium [Moles/Vol] 4.6 mmol/L Normal 3.3-5.1 [facility] Comment on above: Performed By: #### L 501.080 #### [facility] [address] [place], [place], [address] Sodium [Moles/Vol] 136 mmol/L Normal 133-145 [facility] Comment on above: Performed By: #### L 501.080 #### [facility] [address] [place], [place], [address] T PROT 6.0 g/dL Normal 5.9-8.4 [facility] Comment on above: Performed By: #### L 501.080 #### [facility] [address] [place], [place], [address] Urea nitrogen [Mass/Vol] 6 mg/dL Normal 4-19 [facility] Comment on above: Performed By: #### L 501.080 #### [facility] [address] [place], [place], [address] Eosinophil percentageOrdered By: Anali Coello on 10-19-2024 Eosinophils/100 WBC (Bld) 0.6 % 0-5 [facility] Erythrocyte distribution wid th ratioOrdered By: Anali Coello on 10-19-2024 Erythrocyte distribution width (RBC) [Ratio] 12.9 % 11.6-14.6 [facility] Erythrocyte distribution wid th standard deviationOrdered By: Anali Coello on 10-19-2024 Erythrocyte distribution width (RBC) [Ratio] 42.5 fl 35.1-43.9 [facility] Glomerular filtration rate ( GFR) estimation/1.73 sq m using serum, plasma, or whole bOrdered By: Anali Coello on 10-19-2024 GFR/1.73 sq M.predicted among non-blacks MDRD (S/P/Bld) [Vol rate/Area] 92 mL/min/{1.73_m2} >60 [facility] Comment on above: mL/min/1.73m2 CKD-EP I Creatinine Equation (2020) Hematocrit Auto (Bld) [Volum e fraction]Ordered By: Anali Coello on 10-19-2024 Hematocrit (Bld) [Volume fraction] 38.0 % 37-47 [facility] Hemoglobin measurementOrdere d By: Anali Coello on 10-19-2024 Hemoglobin (Bld) [Mass/Vol] 12.4 g/dL 12.0-15.0 [facility] Immature granulocytes/100 WB C Auto (Bld)Ordered By: Anali Coello on 10-19-2024 Immature granulocytes/100 WBC (Bld) 0.300 % 0.0-0.9 [facility] Comment on above: IG% - Immature Granu locytes (promyelocytes, myelocytes and metamyelocytes) > 1% indicates that a LEFT SHIFT is Present. Laboratory - Chemistry and C hemistry - challengeOrdered By: Anali Coello on 10-19-2024 AST [Catalytic activity/Vol] 24 U/L <32 [facility] Lactic Acidon 10-19-2024 Lactate [Moles/Vol] 1.4 mmol/L Normal 0.0-2.0 [facility] Comment on above: Performed By: #### L 501.080 #### [facility] [address] [place], [place], [address] Lactic acid measurementOrder ed By: Zoltan Garcia on 10-19-2024 Lactate [Moles/Vol] 1.4 mmol/L 0.0-2.0 [facility] MCV (mean corpuscular volume ) determinationOrdered By: Anali Coello on 10-19-2024 MCV (RBC) [Entitic vol] 90.9 fL 81-99 [facility] Magnesiumon 10-19-2024 Magnesium [Mass/Vol] 1.7 mg/dL Normal 1.5-2.2 [facility] Comment on above: Performed By: #### L 501.080 #### [facility] [address] [place], [address] Magnesium measurement (mass/ volume)Ordered By: Anali Coello on 10-19-2024 Magnesium (Unsp spec) [Mass/Vol] 1.7 mg/dL 1.5-2.2 [facility] Mean corpuscular hemoglobin (MCH) determinationOrdered By: Anali Coello on 10-19-2024 MCH (RBC) [Entitic mass] 29.7 pg 27.0-32.0 [facility] Mean corpuscular hemoglobin concentration (MCHC) determinationOrdered By: Anali Coello on 10-19-2024 MCHC (RBC) [Mass/Vol] 32.6 g/dL 32-36 [facility] Mean platelet volume determi nationOrdered By: Anali Coello on 10-19-2024 Platelet mean volume (Bld) [Entitic vol] 9.4 fL 6.2-12.0 [facility] Monocyte percentageOrdered B y: Anali Coello on 10-19-2024 Monocytes/100 WBC (Bld) 7.3 % 0-10 [facility] Neutrophil percentageOrdered By: Anali Coello on 10-19-2024 Neutrophils/100 WBC (Bld) 70.0 % 47-70 [facility] Nucleated red blood cell per centageOrdered By: Anali Coello on 10-19-2024 Nucleated RBC/100 WBC (Bld) [Ratio] 0 % 0-5 [facility] Phosphoruson 10-19-2024 Phosphate [Mass/Vol] 2.8 mg/dL Normal 2.7-4.5 [facility] Comment on above: Performed By: #### L 501.080 #### [facility] [address] [place], [place] [address] [place], [address] Platelet countOrdered By: Medina Coello on 10-19-2024 Platelets (Bld) [#/Vol] 181 10*3/uL 150-450 [facility] Potassium measurement (mass/ volume)Ordered By: Anali Coello on 10-19-2024 Potassium (Unsp spec) [Mass/Vol] 4.6 mmol/L 3.3-5.1 [facility] RBC Auto (Bld) [#/Vol]Ordere d By: Anali Coello on 10-19-2024 RBC (Bld) [#/Vol] 4.18 10*6/uL Low 4.2-5.4 [facility] Serum creatinine measurement (mass/volume)Ordered By: Anali Coello on 10-19-2024 Creatinine [Mass/Vol] 0.55 mg/dL Low 0.70-1.20 [facility] Serum globulin measurementOr dered By: Anali Coello on 10-19-2024 Globulin (S) [Mass/Vol] 2.4 g/dL 2.2-4.2 [facility] Serum glucose measurement (m ass/volume)Ordered By: Anali Coello on 10-19-2024 Glucose [Mass/Vol] 132 mg/dL High 70-99 [facility] Serum or plasma alanine rivera otransferase (ALT) measurementOrdered By: Anali Coello on 10-19-2024 ALT [Catalytic activity/Vol] 9 U/L <35 [facility] Serum or plasma albumin serge urement (mass/volume)Ordered By: Anali Coello on 10-19-2024 Albumin [Mass/Vol] 3.6 g/dL 3.4-4.8 [facility] Serum or plasma albumin/glob ulin mass ratioOrdered By: Anali Coello on 10-19-2024 Albumin/Globulin [Mass ratio] 1.5 {ratio} 0.9-2.4 [facility] Serum or plasma alkaline stephane sphatase measurementOrdered By: Anali Coello on 10-19-2024 ALP [Catalytic activity/Vol] 44 U/L 35-104 [facility] Serum or plasma calcium serge urement (mass/volume)Ordered By: Anali Coello on 10-19-2024 Calcium [Mass/Vol] 8.7 mg/dL 7.6-11.0 [facility] Serum or plasma urea nitroge n measurement (mass/volume)Ordered By: Anali Ceollo on 10-19-2024 Urea nitrogen [Mass/Vol] 6 mg/dL 4-19 [facility] Sodium levelOrdered By: Kayleen Coello on 10-19-2024 Sodium [Moles/Vol] 136 mmol/L 133-145 [facility] TSH DL <= 0.005 mIU/L QnOrde red By: Anali Coello on 10-19-2024 TSH Qn 1.130 uIU/mL 0.300-4.200 [facility] Thyroid Stim Hormone (TSH)on 10-19-2024 TSH 1.130 uIU/mL Normal 0.300-4.200 [facility] Comment on above: Performed By: #### L 501.080 #### [facility] [address] [place], [place], [id number] Total proteinOrdered By: Connie Coello on 10-19-2024 Protein [Mass/Vol] 6.0 g/dL 5.9-8.4 [facility] White blood cell (WBC) count Ordered By: Anali Coello on 10-19-2024 WBC (Bld) [#/Vol] 6.9 10*3/uL 4.4-11.0 [facility] Absolute lymphocyte countOrd ered By: Zoltan Garcia on 10-18-2024 Lymphocytes Auto (Unsp spec) [#/Vol] 0.94 10*3/uL 0.83-4.51 [facility] Absolute neutrophil countOrd ered By: Zoltan Garcia on 10-18-2024 Neutrophils (Bld) [#/Vol] 17.9 10*3/uL High 2.0-7.7 [facility] Anion gap in Serum or Plasma Ordered By: Zoltan Garcia on 10-18-2024 Anion gap [Moles/Vol] 17 mmol/L High 5-15 [facility] Automated lymphocyte count a s percentage of total leukocytesOrdered By: Zoltan Garcia on 10-18-2024 Lymphocytes/100 WBC Auto (Unsp spec) 4.7 % Low 19-41 [facility] BUN/creatinine ratioOrdered By: Zoltan Garcia on 10-18-2024 Urea nitrogen/Creatinine [Mass ratio] 17.1 mg/mg 10-20 [facility] Basophil percentageOrdered B y: Zoltan Garcia on 10-18-2024 Basophils/100 WBC (Bld) 0.3 % 0-1 [facility] Bedside Glucoseon 10-18-2024 FINGERSTICK GLU 129 mg/dL High 74-106 [facility] Comment on above: Result Comment: JEWELS RAJPUT OF PATIENT CARE PER NURSING PROTOCOL Performed By: #### L 501.080 #### [facility] [address] [place], [address] FINGERSTICK GLU 119 mg/dL High 74-106 [facility] Comment on above: Result Comment: JEWELS GEMENT OF PATIENT CARE PER NURSING PROTOCOL Performed By: #### L 501.080 #### [facility] [address] [place], [address] FINGERSTICK GLU 98 mg/dL Normal 74-106 [facility] Comment on above: Result Comment: JEWELS GEMENT OF PATIENT CARE PER NURSING PROTOCOL Performed By: #### L 501.080 #### [facility] [address] [place], [address] FINGERSTICK GLU 72 mg/dL Low 74-106 [facility] Comment on above: Result Comment: JEWELS GEMENT OF PATIENT CARE PER NURSING PROTOCOL Performed By: #### L 501.080 #### [facility] [address] [place], [address] FINGERSTICK GLU 82 mg/dL Normal 74-106 [facility] Comment on above: Result Comment: JEWELS GEMENT OF PATIENT CARE PER NURSING PROTOCOL Performed By: #### L 501.080 #### [facility] [address] [place], [address] Bilirubin Test strip Ql (U)O rdered By: Zoltan Garcia on 10-18-2024 Bilirubin Ql (U) Negative Negative [facility] Bilirubin, totalOrdered By: Zoltan Garcia on 10-18-2024 Bilirubin [Mass/Vol] 0.33 mg/dL 0.00-1.30 [facility] Blood cultureOrdered By: Jackson Garcia on 10-18-2024 Bacteria identified Cx Nom (Bld) No growth in 5 days. [facility] Bacteria identified Cx Nom (Bld) No growth in 5 days. [facility] Brain/Head without Contrasto n 10-18-2024 Brain/Head without Contrast [facility] Imaging Services [address] [place] [address] Brain/Head without Contrast MR#: [id number] Acct: [id number] Name: JUSTUS CHINCHILLA Rep #: [id number] : 1940 F 84 From: Jorge Zurita PCP: Dr. Donato Sepulveda MD Status: REG ER Study: Brain/Head without Contrast Date of Exam: 10/04 09/27 Exam# [id number] Ordering Dr: Zoltan Garcia DO PROCEDURE: BRAIN/HEAD [...] hydrocephalus or significant midline shift. There is [id number] chronic microvascular ischemic changes and uslv-[id number] parenchymal volume loss. No acute, depressed calvarial fractures. Mild anterior frontal scalp swelling. Bilateral lens surgeries. CT/Brain/Head without Contrast IMPRESSION: No acute intracranial process. Mild anterior frontal scalp swelling. No acute calvarial defect. Reading Location: [facility] CC: Dr. Zoltan Garcia DO; Dr. Donato Sepulveda MD [employer] Operator: Signed Normal [facility] CBC W/Diff, Automatedon 10-04 Absolute Lymph 0.94 X10 3/uL Normal 0.83-4.51 [facility] Comment on above: Performed By: #### L 501.080 #### [facility] [address] [place], [address] Absolute Neut 17.9 X10 3/uL High 2.0-7.7 [facility] Comment on above: Performed By: #### L 501.080 #### [facility] [address] [place], [address] Basophils/100 WBC (Bld) 0.3 % Normal 0-1 [facility] Comment on above: Performed By: #### L 501.080 #### [facility] [address] [place], [address] Eosinophils/100 WBC (Bld) 0.1 % Normal 0-5 [facility] Comment on above: Performed By: #### L 501.080 #### [facility] [address] [place], [address] Erythrocyte distribution width (RBC) [Ratio] 12.9 % Normal 11.6-14.6 [facility] Comment on above: Performed By: #### L 501.080 #### [facility] [address] [place], [address] Hematocrit (Bld) [Volume fraction] 48.0 % High 37-47 [facility] Comment on above: Performed By: #### L 501.080 #### [facility] [address] [place], [address] Hemoglobin (Bld) [Mass/Vol] 15.5 g/dL High 12.0-15.0 [facility] Comment on above: Performed By: #### L 501.080 #### [facility] [address] [place], [address] IG% 0.700 Normal 0.0-0.9 [facility] Comment on above: Result Comment: IG% - Immature Granulocytes (promyelocytes, myelocytes and metamyelocytes) > 1% indicates that a LEFT SHIFT is Present. Performed By: #### L 501.080 #### [facility] [address] [place], [address] Lymphocytes/100 WBC (Bld) 4.7 % Low 19-41 [facility] Comment on above: Performed By: #### L 501.080 #### [facility] [address] [place], [address] MCH (RBC) [Entitic mass] 29.4 pg Normal 27.0-32.0 [facility] Comment on above: Performed By: #### L 501.080 #### [facility] [address] [place], [address] MCHC (RBC) [Mass/Vol] 32.3 g/dL Normal 32-36 [facility] Comment on above: Performed By: #### L 501.080 #### [facility] [address] [place], [address] MCV (RBC) [Entitic vol] 90.9 fL Normal 81-99 [facility] Comment on above: Performed By: #### L 501.080 #### [facility] [address] [place], [address] Monocytes/100 WBC (Bld) 4.8 % Normal 0-10 [facility] Comment on above: Performed By: #### L 501.080 #### [facility] [address] [place], [address] Neutrophils/100 WBC (Bld) 89.4 % High 47-70 [facility] Comment on above: Performed By: #### L 501.080 #### [facility] [address] [place], [address] Nucleated RBC (Bld) [#/Vol] 0 10*3/uL Normal 0-5 [facility] Comment on above: Performed By: #### L 501.080 #### [facility] [address] [place], [address] Platelet mean volume (Bld) [Entitic vol] 10.2 fL Normal 6.2-12.0 [facility] Comment on above: Performed By: #### L 501.080 #### [facility] [address] [place], [address] Platelets (Bld) [#/Vol] 326 10*3/uL Normal 150-450 [facility] Comment on above: Performed By: #### L 501.080 #### [facility] [address] [place], [address] RBC (Bld) [#/Vol] 5.28 10*6/uL Normal 4.2-5.4 [facility] Comment on above: Performed By: #### L 501.080 #### [facility] [address] [place], [address] RDW SD 43.0 fl Normal 35.1-43.9 [facility] Comment on above: Performed By: #### L 501.080 #### [facility] [address] [place], [address] WBC (Bld) [#/Vol] 20.0 10*3/uL High 4.4-11.0 [facility] Comment on above: Performed By: #### L 501.080 #### [facility] [address] [place], [address] Carbon dioxide, total [Moles /volume] in Central venous bloodOrdered By: Zoltan Garcia on 10-18-2024 CO2 [Moles/Vol] 24.5 mmol/L 21.0-32.0 [facility] Chloride assayOrdered By: Bin Garcia on 10-18-2024 Chloride [Moles/Vol] 102 mmol/L 98-108 [facility] Emergency Department Summary on 10-18-2024 Emergency Department Summary [facility] Medical Records Department [address] [place] [address] Emergency Department Summary 10/18/24 MR#: [id number] Acct: [id number] Name: JUSTUS CHINCHILLA Rep #: [id number] : 1940 84 From: Zoltan Garcia DO PCP: Dr. Donato Sepulveda MD Status:ADM IN Location: [place] [id number] HPI HPI - Fall History of Present [...] takes oral hypoglycemics as well as insulin. [facility] Medical History (Updated 10/18/24 @ 21:59 [...] History (Revie (more content not included)... Normal [facility] Eosinophil percentageOrdered By: Zoltan Garcia on 10-18-2024 Eosinophils/100 WBC (Bld) 0.1 % 0-5 [facility] Erythrocyte distribution wid th ratioOrdered By: Zoltan Garcia on 10-18-2024 Erythrocyte distribution width (RBC) [Ratio] 12.9 % 11.6-14.6 [facility] Erythrocyte distribution wid th standard deviationOrdered By: Zoltan Garcia on 10-18-2024 Erythrocyte distribution width (RBC) [Ratio] 43.0 fl 35.1-43.9 [facility] Glomerular filtration rate ( GFR) estimation/1.73 sq m using serum, plasma, or whole bOrdered By: Zoltan Garcia on 10-18-2024 GFR/1.73 sq M.predicted among non-blacks MDRD (S/P/Bld) [Vol rate/Area] 88 mL/min/{1.73_m2} >60 [facility] Comment on above: mL/min/1.73m2 CKD-EP I Creatinine Equation (2020) [facility] deOrdered By: Anali Coello on 10-18-2024 Glucose [Mass/Vol] 129 mg/dL High 74-106 [facility] Comment on above: MANAGEMENT OF PATIEN T CARE PER NURSING PROTOCOL H AND P Exam - [facility] 10-18-2024 H&P Exam - Hospitalist [facility] Medical Records Department [address] [place] [address] H P Exam - Hospitalist 10/18/242107 MR#: [id number] Acct: [id number] Name: JUSTUS CHINCHILLA Rep #: [id number] : 1940 84 From: Anali Coello DO PCP: Dr. Donato Sepulveda MD Status:ADM IN Location: [place] [id number] HPI - General General Date of Admission: 10/18/24 Date of Service: 10/18/24 Chief Complaint: Fall/altered mental status HPI Narrative JUSTUS CHINCHILLA, is a 84 F who presented to the emergency department at [facility] on 10/18/2024 with chief complaint of [...] she was close to her baseline mentation. [facility] Medical History (Updated 10/18/24 @ 21:59 [...] H i (more content not included)... Normal [facility] Hematocrit Auto (Bld) [Volum e fraction]Ordered By: Zoltan Garcia on 10-18-2024 Hematocrit (Bld) [Volume fraction] 48.0 % High 37-47 [facility] Hemoglobin measurementOrdere d By: Zoltan Garcia on 10-18-2024 Hemoglobin (Bld) [Mass/Vol] 15.5 g/dL High 12.0-15.0 [facility] Immature granulocytes/100 WB C Auto (Bld)Ordered By: Zoltan Garcia on 10-18-2024 Immature granulocytes/100 WBC (Bld) 0.700 % 0.0-0.9 [facility] Comment on above: IG% - Immature Granu locytes (promyelocytes, myelocytes and metamyelocytes) > 1% indicates that a LEFT SHIFT is Present. International normalized rat io (INR) calculationOrdered By: Zoltan Garcia on 10-18-2024 INR Coag (Bld) [Relative time] 1.0 {INR} [facility] Ketones Test strip Ql (U)Ord ered By: Zoltan Garcia on 10-18-2024 Ketones Ql (U) Negative Negative [facility] - Chemistry and C hemistry - challengeOrdered By: Zoltan Garcia on 10-18-2024 AST [Catalytic activity/Vol] 34 U/L High <32 [facility] Lactic Acidon 10-18-2024 Lactate [Moles/Vol] 2.8 mmol/L Invalid Interpretation Code 0.0-2.0 [facility] Comment on above: Order Comment: Y Result Comment: Crit ical Result(s) Called at: 2123 by:??REKHA GARCIA TO ISAAC LEMUS Results read back by same. Performed By: #### L 501.080 #### [facility] [place], [address] Lactic acid measurementOrder ed By: Zoltan Garcia on 10-18-2024 Lactate [Moles/Vol] 2.8 mmol/L High 0.0-2.0 [facility] Comment on above: Critical Result(s) C alled at: 2123 by: REKHA LEMUS Results read back by same. MCV (mean corpuscular volume ) determinationOrdered By: Zoltan Garcia on 10-18-2024 MCV (RBC) [Entitic vol] 90.9 fL 81-99 [facility] Mean corpuscular hemoglobin (MCH) determinationOrdered By: Zoltan Garcia on 10-18-2024 MCH (RBC) [Entitic mass] 29.4 pg 27.0-32.0 [facility] Mean corpuscular hemoglobin concentration (MCHC) determinationOrdered By: Zoltan Garcia on 10-18-2024 MCHC (RBC) [Mass/Vol] 32.3 g/dL 32-36 [facility] Mean platelet volume determi nationOrdered By: Zoltan Garcia on 10-18-2024 Platelet mean volume (Bld) [Entitic vol] 10.2 fL 6.2-12.0 [facility] Microscopic analysis of urin e for red blood cells (RBC)Ordered By: Zoltan Garcia on 10-18-2024 Microscopic analysis of urine for red blood cells (RBC) 0 SEEN /hpf 0-5 [facility] Monocyte percentageOrdered B y: Zoltan Garcia on 10-18-2024 Monocytes/100 WBC (Bld) 4.8 % 0-10 [facility] Mucus LM Ql (Urine sed)Order ed By: Zoltan Garcia on 10-18-2024 Mucus Ql (Urine sed) 0 SEEN /hpf [facility] Neutrophil percentageOrdered By: Zoltan Garcia on 10-18-2024 Neutrophils/100 WBC (Bld) 89.4 % High 47-70 [facility] Nitrite Test strip Ql (U)Ord ered By: Zoltan Garcia on 10-18-2024 Nitrite Ql (U) Positive High Negative [facility] Nucleated red blood cell per centageOrdered By: Zoltan Garcia on 10-18-2024 Nucleated RBC/100 WBC (Bld) [Ratio] 0 % 0-5 [facility] Platelet countOrdered By: Bin Garcia on 10-18-2024 Platelets (Bld) [#/Vol] 326 10*3/uL 150-450 [facility] Potassium measurement (mass/ volume)Ordered By: Zoltan Garcia on 10-18-2024 Potassium (Unsp spec) [Mass/Vol] 3.2 mmol/L Low 3.3-5.1 [facility] Protein Test strip Ql (U)Ord ered By: Zoltan Garcia on 10-18-2024 Protein Ql (U) 30 mg/dl High Negative [facility] Prothrombin Time w/INRon INR Coag (PPP) [Relative time] 1.0 {INR} Normal [facility] Comment on above: Performed By: #### L 501.080 #### [facility] [address] [place], [address] PT Coag (PPP) [Time] 13.4 s Normal 11.7-14.9 [facility] Comment on above: Performed By: #### L 501.080 #### [facility] [address] [place], [address] Prothrombin timeOrdered By: Zoltan Garcia on 10-18-2024 PT Coag (PPP) [Time] 13.4 s 11.7-14.9 [facility] RBC Auto (Bld) [#/Vol]Ordere d By: Zoltan Garcia on 10-18-2024 RBC (Bld) [#/Vol] 5.28 10*6/uL 4.2-5.4 [facility] Serum creatinine measurement (mass/volume)Ordered By: Zoltan Garcia on 10-18-2024 Creatinine [Mass/Vol] 0.64 mg/dL Low 0.70-1.20 [facility] Serum globulin measurementOr dered By: Zoltan Garcia on 10-18-2024 Globulin (S) [Mass/Vol] 3.3 g/dL 2.2-4.2 [facility] Serum glucose measurement (m ass/volume)Ordered By: Zoltan Garcia on 10-18-2024 Glucose [Mass/Vol] 16 mg/dL Invalid Interpretation Code 70-99 [facility] Comment on above: Critical Result(s) C [...] same. Performed By: #### L 501.080 #### [facility] [address] [place] [address]. [place], [place], [id number] Serum or plasma alanine rivera otransferase (ALT) measurementOrdered By: Zoltan Garcia on 10-18-2024 ALT [Catalytic activity/Vol] 13 U/L <35 [facility] Serum or plasma albumin serge urement (mass/volume)Ordered By: Zoltan Garcia on 10-18-2024 Albumin [Mass/Vol] 4.7 g/dL 3.4-4.8 [facility] Serum or plasma albumin/glob ulin mass ratioOrdered By: Zoltan Garcia on 10-18-2024 Albumin/Globulin [Mass ratio] 1.4 {ratio} 0.9-2.4 [facility] Serum or plasma alkaline stephane sphatase measurementOrdered By: Zoltan Garcia on 10-18-2024 ALP [Catalytic activity/Vol] 60 U/L 35-104 [facility] Serum or plasma calcium serge urement (mass/volume)Ordered By: Zoltan Garcia on 10-18-2024 Calcium [Mass/Vol] 10.0 mg/dL 7.6-11.0 [facility] Serum or plasma urea nitroge n measurement (mass/volume)Ordered By: Zoltan Garcia on 10-18-2024 Urea nitrogen [Mass/Vol] 11 mg/dL 4-19 [facility] Sodium levelOrdered By: Bebo Garcia on 10-18-2024 Sodium [Moles/Vol] 143 mmol/L 133-145 [facility] Squamous epithelial cells de tection in urine sediment by light microscopyOrdered By: Zoltan Garcia on 10-18-2024 Epithelial cells.squamous LM Ql (Urine sed) 0-5 SEEN /hpf 5-10 [facility] Total proteinOrdered By: Jackson Garcia on 10-18-2024 Protein [Mass/Vol] 8.0 g/dL 5.9-8.4 [facility] Urinalysis, Completeon 10-18 BACTERIA 4+ /hpf Normal None Seen [facility] Comment on above: Order Comment: ABEBE TER SPECIMEN Performed By: #### L [id number] #### [facility] [address] [place], [address] EPI,SQUAMOUS 0-5 SEEN Normal 5-10 [facility] Comment on above: Order Comment: ABEBE TER SPECIMEN Performed By: #### L [id number] #### [facility] [address] [place], [address] WBC 10-25 SEEN Normal 0-5 [facility] Comment on above: Order Comment: ABEBE TER SPECIMEN Performed By: #### L [id number] #### [facility] [address] [place], [address] Mucus Ql (Urine sed) 0 SEEN Normal [facility] Comment on above: Order Comment: AEBBE TER SPECIMEN Performed By: #### L [id number] #### [facility] [address] [place], [address] RBC 0 SEEN Normal 0-5 [facility] Comment on above: Order Comment: ABEBE TER SPECIMEN Performed By: #### L [id number] #### [facility] [address] [place], [place], [id number] Urine clarityOrdered By: Jackson Garcia on 10-18-2024 Clarity (U) Clear Clear [facility] Urine color determinationOrd ered By: Zoltan Garcia on 10-18-2024 Color (U) Yellow Yellow [facility] Urine cultureOrdered By: Jackson Garcia on 10-18-2024 Bacteria identified Cx Nom (U) Escherichia coli Abnormal [facility] Urine glucose detectionOrder ed By: Zoltan Garcia on 10-18-2024 Glucose Ql (U) 1000 mg/dl High Normal [facility] Urine leukocyte esterase det ection by dipstickOrdered By: Zoltan Garcia on 10-18-2024 Leukocyte esterase Test strip Ql (U) 25 /ul High Negative [facility] Urine pHOrdered By: Zoltan vela on 10-18-2024 pH (U) 6.5 [pH] 5.0 - 8.0 [facility] Urine sediment bacteria coun t by microscopy (number/high power field)Ordered By: Zoltan Garcia on 10-18-2024 Bacteria LM.HPF (Urine sed) [#/Area] 4 /[HPF] None Seen [facility] Urine specific gravity measu rementOrdered By: Zoltan Garcia on 10-18-2024 Specific gravity (U) [Rel density] 1.015 1.002-1.030 [facility] Urine urobilinogen measureme ntOrdered By: Zoltan Garcia on 10-18-2024 Urobilinogen Ql (U) Normal mg/dl Normal [facility] White blood cell (WBC) count Ordered By: Zoltan Garcia on 10-18-2024 WBC (Bld) [#/Vol] 20.0 10*3/uL High 4.4-11.0 [facility] White blood cell countOrdere d By: Zoltan Garcia on 10-18-2024 White blood cell count 10-25 SEEN /hpf 0-5 [facility] Anion gap in Serum or Plasma Ordered By: Donato Sepulveda on 10-06-2024 Anion gap [Moles/Vol] 10 mmol/L 5-15 [facility] BUN/creatinine ratioOrdered By: Donato Sepulveda on 10-06-2024 Urea nitrogen/Creatinine [Mass ratio] 21.9 mg/mg High 10-20 [facility] Bilirubin directOrdered By: Donato Sepulveda on 10-06-2024 Bilirubin.direct [Mass/Vol] 0.11 mg/dL 0.00-0.30 [facility] Bilirubin, totalOrdered By: Donato Sepulveda on 10-06-2024 Bilirubin [Mass/Vol] 0.24 mg/dL 0.00-1.30 [facility] Calculated very low density lipoprotein (VLDL) cholesterol measurementOrdered By: Donato Sepulveda on 10-06-2024 Calculated very low density lipoprotein (VLDL) cholesterol measurement 14 mg/dL 5-40 [facility] Carbon dioxide, total [Moles /volume] in Central venous bloodOrdered By: Donato Sepulveda on 10-06-2024 CO2 [Moles/Vol] 29.2 mmol/L 21.0-32.0 [facility] Chloride assayOrdered By: Livier Sepulveda on 10-06-2024 Chloride [Moles/Vol] 99 mmol/L 98-108 [facility] Erythrocyte distribution wid th ratioOrdered By: Donato Sepulveda on 10-06-2024 Erythrocyte distribution width (RBC) [Ratio] 12.8 % 11.6-14.6 [facility] Erythrocyte distribution wid th standard deviationOrdered By: Donato Sepulveda on 10-06-2024 Erythrocyte distribution width (RBC) [Ratio] 43.8 fl 35.1-43.9 [facility] Glomerular filtration rate ( GFR) estimation/1.73 sq m using serum, plasma, or whole bOrdered By: Donato Sepulveda on 10-06-2024 GFR/1.73 sq M.predicted among non-blacks MDRD (S/P/Bld) [Vol rate/Area] 79 mL/min/{1.73_m2} >60 [facility] Comment on above: mL/min/1.73m2 CKD-EP I Creatinine Equation (2020) Hematocrit Auto (Bld) [Volum e fraction]Ordered By: Donato Sepulveda on 10-06-2024 Hematocrit (Bld) [Volume fraction] 37.1 % 37-47 [facility] Hemoglobin A1c percentageOrd ered By: Donato Sepulveda on 10-06-2024 HbA1c (Bld) [Mass fraction] 9.5 % High <5.7 [facility] Comment on above: Normal < 5.7 % Predi abetic 5.7 - 6.4 % Diabetic >or= 6.5 % Please note range changes. Hemoglobin measurementOrdere d By: Donato Sepulveda on 10-06-2024 Hemoglobin (Bld) [Mass/Vol] 11.9 g/dL Low 12.0-15.0 [facility] LDL calc ser/plasOrdered By: Donato Sepulveda on 10-06-2024 Cholesterol in LDL [Mass/Vol] 92 mg/dL [facility] Comment on above: Tiogjgjfsd=312-568 m g/dL & Higher Pnfp=143 mg/dL or greater Laboratory - Chemistry and C hemistry - challengeOrdered By: Donato Sepulveda on 10-06-2024 AST [Catalytic activity/Vol] 19 U/L <32 [facility] MCV (mean corpuscular volume ) determinationOrdered By: Donato Sepulveda on 10-06-2024 MCV (RBC) [Entitic vol] 92.8 fL 81-99 [facility] Mean corpuscular hemoglobin (MCH) determinationOrdered By: Donato Sepulveda on 10-06-2024 MCH (RBC) [Entitic mass] 29.8 pg 27.0-32.0 [facility] Mean corpuscular hemoglobin concentration (MCHC) determinationOrdered By: Donato Sepulveda on 10-06-2024 MCHC (RBC) [Mass/Vol] 32.1 g/dL 32-36 [facility] Mean platelet volume determi nationOrdered By: Donato Sepulvead on 10-06-2024 Platelet mean volume (Bld) [Entitic vol] 10.8 fL 6.2-12.0 [facility] Platelet countOrdered By: Livier Sepulveda on 10-06-2024 Platelets (Bld) [#/Vol] 182 10*3/uL 150-450 [facility] Potassium measurement (mass/ volume)Ordered By: Donato Sepulveda on 10-06-2024 Potassium (Unsp spec) [Mass/Vol] 4.3 mmol/L 3.3-5.1 [facility] RBC Auto (Bld) [#/Vol]Ordere d By: Donato Sepulveda on 10-06-2024 RBC (Bld) [#/Vol] 4.00 10*6/uL Low 4.2-5.4 [facility] Screening total cholesterol/ high density lipoprotein (HDL) cholesterol ratioOrdered By: Donato Sepulveda on 10-06-2024 Cholesterol.total/Gabby sterol in HDL [Mass ratio] 2.80 {ratio} [facility] Serum creatinine measurement (mass/volume)Ordered By: Donato Sepulveda on 10-06-2024 Creatinine [Mass/Vol] 0.75 mg/dL 0.70-1.20 [facility] Serum globulin measurementOr dered By: Donato Sepulveda on 10-06-2024 Globulin (S) [Mass/Vol] 2.3 g/dL 2.2-4.2 [facility] Serum glucose measurement (m ass/volume)Ordered By: Donato Sepulveda on 10-06-2024 Glucose [Mass/Vol] 232 mg/dL High 70-99 [facility] Serum or plasma alanine rivera otransferase (ALT) measurementOrdered By: Donato Sepulveda on 10-06-2024 ALT [Catalytic activity/Vol] 8 U/L <35 [facility] Serum or plasma albumin serge urement (mass/volume)Ordered By: Donato Sepulveda on 10-06-2024 Albumin [Mass/Vol] 3.7 g/dL 3.4-4.8 [facility] Serum or plasma alkaline stephane sphatase measurementOrdered By: Donato Sepulveda on 10-06-2024 ALP [Catalytic activity/Vol] 50 U/L 35-104 [facility] Serum or plasma calcium serge urement (mass/volume)Ordered By: Donato Sepulveda on 10-06-2024 Calcium [Mass/Vol] 9.1 mg/dL 7.6-11.0 [facility] Serum or plasma cholesterol in HDL measurement (mass/volume)Ordered By: Donato Sepulveda on 10-06-2024 Cholesterol in HDL [Mass/Vol] 59 mg/dL >40 [facility] Comment on above: National Cholesterol Education Program (NCEP) guidelines:<40 mg/dL: Low HDL-cholesterol (major risk factor for CHD)>= 60 mg/dL: High HDL-cholesterol (negative risk factor for CHD)HDL-cholesterol is affected by a number of factors, e.g. smoking, exercise, hormones, sex and age. Serum or plasma cholesterol measurement (mass/volume)Ordered By: Donato Sepulveda on 10-06-2024 Cholesterol [Mass/Vol] 164 mg/dL <201 [facility] Comment on above: Cholesterol level, D esirable <200 mg/dLBorderline high cholesterol 200-239 mg/dLHigh cholesterol >=240 mg/dLRecommendations of the NCEP Adult Treatment Panel for the following risk-cutoff thresholds for the [place] population. Serum or plasma urea nitroge n measurement (mass/volume)Ordered By: Donato Sepulveda on 10-06-2024 Urea nitrogen [Mass/Vol] 16 mg/dL 4-19 [facility] Sodium levelOrdered By: Raul Sepulveda on 10-06-2024 Sodium [Moles/Vol] 138 mmol/L 133-145 [facility] Total proteinOrdered By: Sherwin Sepulveda on 10-06-2024 Protein [Mass/Vol] 6.0 g/dL 5.9-8.4 [facility] Triglycerides measurementOrd ered By: Donato Sepulveda on 10-06-2024 Triglyceride [Mass/Vol] 68 mg/dL <199 [facility] Comment on above: The drugs N-Acetylcy [...] (Bld) [Mass fraction] 8.8 % High <5.7 [facility] Comment on above: Normal < 5.7 % Predi abetic 5.7 - 6.4 % Diabetic >or= 6.5 % Please note range changes. Bedside Glucoseon 08-24-2024 FINGERSTICK GLU 240 mg/dL High 74-106 [facility] Comment on above: Result Comment: JEWELS RAJPUT OF PATIENT CARE PER NURSING PROTOCOL Performed By: #### L 501.080 #### [facility] [address] [facility]. [place], [place], [address] Fluoro Guided Needle Placeme nton 08-24-2024 Fluoro Guided Needle Placement [facility] Imaging Services [address] [place], [place] [address] Fluoro Guided Needle Placement MR#: [id number] Acct: [id number] Name: RENÉEJUSTUS M Rep #: [id number] : 1940 F 84 From: Tomi metz MD PCP: Dr. Donato Sepulveda MD Status: [facility] Study: Fluoro Guided Needle Placement Date of Exam: 0 08/24/24 Exam# [id number] Ordering Dr: Armando Rich MD PROCEDURE: FLUORO GUIDED NEEDLE PLACEMENT 08/24/2024 REASON FOR EXAM: RT KNEE INJECTION TECHNIQUE: Intraoperative fluoroscopic services provided for right knee injection. 5.1 seconds of fluoroscopy. 0.85 mGy. 4 images were taken. COMPARISON: None FINDINGS: Intraoperative fluoroscopic services for knee injection. RAD/Fluoro Guided Needle Placement IMPRESSION: Fluoroscopic services provided for right knee injection. Reading Location: [place] [address] CC: Dr. Donato Sepulveda MD; Dr. 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 deOrdered By: Armando Rihc on 08-24-2024 Bedside Glucose ([facility] Panel) 240 mg/dL High 74-106 [facility] Comment on above: MANAGEMENT OF PATIEN T CARE PER NURSING PROTOCOL Glucose [Mass/Vol] 240 mg/dL High 74-106 [facility] Comment on above: MANAGEMENT OF PATIEN T CARE PER NURSING PROTOCOL Operative Reporton Operative Report [facility] Medical Records Department [address] [place] [address] Operative Report 08/24/24 0932 MR#: [id number] Acct: [id number] Name: JUSTUS CHINCHILLA Rep #: [id number] : 1940 84 From: Armando Rich MD PCP: Dr. 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 Donato Sepulveda MD; Dr. Armando Rich MD Signed Normal [facility] Absolute lymphocyte countOrd ered By: Donato Sepulveda on 07-15-2024 Lymphocytes Auto (Unsp spec) [#/Vol] 1.27 10*3/uL 0.83-4.51 [facility] Absolute neutrophil countOrd ered By: Donato Sepulveda on 07-15-2024 Neutrophils (Bld) [#/Vol] 4.2 10*3/uL 2.0-7.7 [facility] Anion gap in Serum or Plasma Ordered By: Donato Sepulveda on 07-15-2024 Anion gap [Moles/Vol] 12 mmol/L 5-15 [facility] Automated lymphocyte count a s percentage of total leukocytesOrdered By: Donato Sepulveda on 07-15-2024 Lymphocytes/100 WBC Auto (Unsp spec) 21.1 % 19-41 [facility] BUN/creatinine ratioOrdered By: Donato Sepulveda on 07-15-2024 Urea nitrogen/Creatinine [Mass ratio] 17.5 mg/mg 10-20 [facility] Basophil percentageOrdered B y: Donato Sepulveda on 07-15-2024 Basophils/100 WBC (Bld) 0.5 % 0-1 [facility] Bilirubin Test strip Ql (U)O rdered By: Donato Sepulveda on 07-15-2024 Bilirubin Ql (U) Negative Negative [facility] Bilirubin, totalOrdered By: Donato Sepulveda on 07-15-2024 Bilirubin [Mass/Vol] 0.31 mg/dL 0.00-1.30 [facility] Carbon dioxide, total [Moles /volume] in Central venous bloodOrdered By: Donato Sepulveda on 07-15-2024 CO2 [Moles/Vol] 28.3 mmol/L 21.0-32.0 [facility] Chloride assayOrdered By: Livier Sepulveda on 07-15-2024 Chloride [Moles/Vol] 98 mmol/L 98-108 [facility] Eosinophil percentageOrdered By: Donato Sepulveda on 07-15-2024 Eosinophils/100 WBC (Bld) 1.7 % 0-5 [facility] Erythrocyte distribution wid th (RBC) [Ratio]Ordered By: Donato Sepulveda on 07-15-2024 Erythrocyte distribution width (RBC) [Entitic vol] 43.9 fL 35.1-43.9 [facility] Erythrocyte distribution wid th ratioOrdered By: Donato Sepulveda on 07-15-2024 Erythrocyte distribution width (RBC) [Ratio] 13.2 % 11.6-14.6 [facility] Erythrocyte distribution wid th standard deviationOrdered By: Donato Sepulveda on 07-15-2024 Erythrocyte distribution width (RBC) [Ratio] 43.9 fl 35.1-43.9 [facility] GFR/1.73 sq M.predicted maxime g non-blacks MDRD (S/P/Bld) [Vol rate/Area]Ordered By: Donato Sepulveda on 07-15-2024 Estimated GFR (MDRD) Non-Af Amer 88 >60 [facility] Comment on above: mL/min/1.73m2 CKD-EP I Creatinine Equation (2020) Glomerular filtration rate ( GFR) estimation/1.73 sq m using serum, plasma, or whole bOrdered By: Donato Sepulveda on 07-15-2024 GFR/1.73 sq M.predicted among non-blacks MDRD (S/P/Bld) [Vol rate/Area] 88 mL/min/{1.73_m2} >60 [facility] Comment on above: mL/min/1.73m2 CKD-EP I Creatinine Equation (2020) Glucose Ql (U)Ordered By: Livier Sepulveda on 07-15-2024 Glucose (U) [Mass/Vol] 1000 mg/dL High Normal [facility] Hematocrit Auto (Bld) [Volum e fraction]Ordered By: Donato Sepulveda 07-15-2024 Hematocrit (Bld) [Volume fraction] 38.9 % 37-47 [facility] Hemoglobin measurementOrdere d By: Donato Sepulveda on 07-15-2024 Hemoglobin (Bld) [Mass/Vol] 12.6 g/dL 12.0-15.0 [facility] Immature granulocytes/100 WB C Auto (Bld)Ordered By: Donato Sepulveda on 07-15-2024 Immature granulocytes/100 WBC (Bld) 0.200 % 0.0-0.9 [facility] Comment on above: IG% - Immature Granu locytes (promyelocytes, myelocytes and metamyelocytes) > 1% indicates that a LEFT SHIFT is Present. Ketones Test strip Ql (U)Ord ered By: Galichar Lombardibryan on 07-15-2024 Ketones Ql (U) Negative Negative [facility] Laboratory - Chemistry and C hemistry - challengeOrdered By: Livierstudyanchar Lombardirjnoris on 07-15-2024 AST [Catalytic activity/Vol] 18 U/L <32 [facility] Lymphocytes Auto (Unsp spec) [#/Vol]Ordered By: stumoss landingchar Harjitrjnoris on 07-15-2024 Lymphocytes (Bld) [#/Vol] 1.27 10*3/uL 0.83-4.51 [facility] Lymphocytes/100 WBC Auto (Un sp spec)Ordered By: Livierstudyanchar Lombardirjnoris on 07-15-2024 Lymphocytes/100 WBC (Bld) 21.1 % 19-41 [facility] MCV (mean corpuscular volume ) determinationOrdered By: stumoss landingchar Lombardirjnoris on 07-15-2024 MCV (RBC) [Entitic vol] 91.3 fL 81-99 [facility] Mean corpuscular hemoglobin (MCH) determinationOrdered By: [facility], Atlantachar Lombardirjnoris on 07-15-2024 MCH (RBC) [Entitic mass] 29.6 pg 27.0-32.0 [facility] Mean corpuscular hemoglobin concentration (MCHC) determinationOrdered By: stumoss landingchar Lombardirjnoris on 07-15-2024 MCHC (RBC) [Mass/Vol] 32.4 g/dL 32-36 [facility] Mean platelet volume determi nationOrdered By: stumoss landingchar Lombardirjnoris on 07-15-2024 Platelet mean volume (Bld) [Entitic vol] 10.7 fL 6.2-12.0 [facility] Monocyte percentageOrdered B y: Livierstudyanchar Sepulveda on 07-15-2024 Monocytes/100 WBC (Bld) 7.5 % 0-10 [facility] Neutrophil percentageOrdered By: Donato Sepulveda on 07-15-2024 Neutrophils/100 WBC (Bld) 69.0 % 47-70 [facility] Nitrite Test strip Ql (U)Ord ered By: Raulmarcela Harjitrjnoris on 07-15-2024 Nitrite Ql (U) Negative Negative [facility] Nucleated red blood cell per centageOrdered By: Donato Lombardirjnoris on 07-15-2024 Nucleated RBC/100 WBC (Bld) [Ratio] 0 % 0-5 [facility] Platelet countOrdered By: Livier Sepulveda on 07-15-2024 Platelets (Bld) [#/Vol] 188 10*3/uL 150-450 [facility] Potassium (Unsp spec) [Mass/ Vol]Ordered By: Donato Lombardirjnoris on 07-15-2024 Potassium [Moles/Vol] 4.3 mmol/L 3.3-5.1 [facility] Potassium measurement (mass/ volume)Ordered By: Donato Sepulveda on 07-15-2024 Potassium (Unsp spec) [Mass/Vol] 4.3 mmol/L 3.3-5.1 [facility] Protein Test strip Ql (U)Ord ered By: Rauldyanchar Lombardirjnoris on 07-15-2024 Protein Ql (U) Negative Negative [facility] RBC Auto (Bld) [#/Vol]Ordere d By: Rauldyanchar Lombardirjnoris on 07-15-2024 RBC (Bld) [#/Vol] 4.26 10*6/uL 4.2-5.4 [facility] Serum creatinine measurement (mass/volume)Ordered By: Donato Sepulveda on 07-15-2024 Creatinine [Mass/Vol] 0.65 mg/dL Low 0.70-1.20 [facility] Serum globulin measurementOr dered By: Donato Sepulveda on 07-15-2024 Globulin (S) [Mass/Vol] 2.6 g/dL 2.2-4.2 [facility] Serum glucose measurement (m ass/volume)Ordered By: Donato Sepulveda on 07-15-2024 Glucose [Mass/Vol] 322 mg/dL High 70-99 [facility] Serum or plasma alanine rivera otransferase (ALT) measurementOrdered By: Donato Sepulveda on 07-15-2024 ALT [Catalytic activity/Vol] 9 U/L <35 [facility] Serum or plasma albumin serge urement (mass/volume)Ordered By: Donato Sepulveda on 07-15-2024 Albumin [Mass/Vol] 3.9 g/dL 3.4-4.8 [facility] Serum or plasma albumin/glob ulin mass ratioOrdered By: Donato Sepulveda on 07-15-2024 Albumin/Globulin [Mass ratio] 1.5 {ratio} 0.9-2.4 [facility] Serum or plasma alkaline stephane sphatase measurementOrdered By: Donato Sepulveda on 07-15-2024 ALP [Catalytic activity/Vol] 59 U/L 35-104 [facility] Serum or plasma calcium serge urement (mass/volume)Ordered By: Donato Sepulveda on 07-15-2024 Calcium [Mass/Vol] 9.6 mg/dL 7.6-11.0 [facility] Serum or plasma urea nitroge n measurement (mass/volume)Ordered By: Donato Sepulveda on 07-15-2024 Urea nitrogen [Mass/Vol] 11 mg/dL 4-19 [facility] Sodium levelOrdered By: Raul Sepulveda on 07-15-2024 Sodium [Moles/Vol] 138 mmol/L 133-145 [facility] Total proteinOrdered By: Sherwin Sepulveda on 07-15-2024 Protein [Mass/Vol] 6.6 g/dL 5.9-8.4 [facility] Urine blood detectionOrdered By: Donato Sepulveda on 07-15-2024 Urine Occult Blood Negative Negative [facility] Urine clarityOrdered By: Sherwin Sepulveda on 07-15-2024 Clarity (U) Sl. 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 Abnormal [facility] Bacteria identified Cx Nom (U) Staphylococcus epidermidis Abnormal [facility] Urine glucose detectionOrder ed By: Donato Sepulveda on 07-15-2024 Glucose Ql (U) 1000 mg/dl High Normal [facility] Urine leukocyte esterase det ection by dipstickOrdered By: Donato Sepulveda on 07-15-2024 Leukocyte esterase Test strip Ql (U) Negative Negative [facility] Urine pHOrdered By: Harvey Sepulveda on 07-15-2024 pH (U) 7.0 [pH] 5.0 - 8.0 [facility] Urine specific gravity measu rementOrdered By: Donato Sepulveda on 07-15-2024 Specific gravity (U) [Rel density] 1.010 1.002-1.030 [facility] Urine urobilinogen measureme ntOrdered By: Donato Sepulveda on 07-15-2024 Urobilinogen Ql (U) 1 mg/dl High Normal [facility] Urobilinogen Ql (U)Ordered B y: Donato Sepulveda on 07-15-2024 Urobilinogen (U) [Mass/Vol] 1 mg/dL High Normal [facility] White blood cell (WBC) count Ordered By: Donato Sepulveda on 07-15-2024 WBC (Bld) [#/Vol] 6.0 10*3/uL 4.4-11.0 [facility] Vitamin D, 25-hydroxyOrdered By: Donato Sepulveda on 07-14-2024 Vitamin D 25-Hydroxy 33.9 ng/mL 30-100 [facility] Comment on above: Vitamin D StatusDefi ciency: <20 ng/mL (50nmol/L)Insufficiency: 20-30 ng/mL (50-75 nmol/L)Sufficiency: 30-100 ng/mL (75-250 nmol/L)Toxicity: >100 ng/mL (>250 nmol/L) Bilirubin Test strip Ql (U)O rdered By: Donato Sepulveda on 06-15-2024 Bilirubin Ql (U) Negative Negative [facility] Glucose Ql (U)Ordered By: Livier Sepulveda on 06-15-2024 Glucose (U) [Mass/Vol] 1000 mg/dL High Normal [facility] Ketones Test strip Ql (U)Ord ered By: Donato Sepulveda on 06-15-2024 Ketones Ql (U) Negative Negative [facility] Nitrite Test strip Ql (U)Ord ered By: Donato Sepulveda on 06-15-2024 Nitrite Ql (U) Negative Negative [facility] Protein Test strip Ql (U)Ord ered By: Donato Sepulveda on 06-15-2024 Protein Ql (U) Negative Negative [facility] Urine blood detectionOrdered By: Donato Sepulveda on 06-15-2024 Urine Occult Blood 150 /ul High Negative [facility] Urine clarityOrdered By: Sherwin Sepulveda on 06-15-2024 Clarity (U) Clear Clear [facility] Urine color determinationOrd ered By: Donato Sepulveda on 06-15-2024 Color (U) Yellow Yellow [facility] Urine cultureOrdered By: Sherwin Sepulveda on 06-15-2024 Bacteria identified Cx Nom (U) Mixed Gram Pos & Gram Neg Org Abnormal [facility] Urine glucose detectionOrder ed By: Donato Sepulveda on 06-15-2024 Glucose Ql (U) 1000 mg/dl High Normal [facility] Urine leukocyte esterase det ection by dipstickOrdered By: Donato Sepulveda on 06-15-2024 Leukocyte esterase Test strip Ql (U) 25 /ul High Negative [facility] Urine pHOrdered By: Harvey Sepulveda on 06-15-2024 pH (U) 6.0 [pH] 5.0 - 8.0 [facility] Urine specific gravity measu rementOrdered By: Donato Sepulveda on 06-15-2024 Specific gravity (U) [Rel density] 1.010 1.002-1.030 [facility] Urine urobilinogen measureme ntOrdered By: Donato Sepulveda on 06-15-2024 Urobilinogen Ql (U) Normal mg/dl Normal [facility] Urobilinogen Ql (U)Ordered B y: Donato Sepulveda on 06-15-2024 Urine Urobilinogen Normal mg/dl Normal [facility] Hemoglobin A1c percentageOrd ered By: Donato Sepulveda on 06-09-2024 HbA1c (Bld) [Mass fraction] 8.6 % High 3.8-5.6 [facility] Comment on above: Normal < 5.7 % Predi abetic 5.7 - 6.4 % Diabetic >or= 6.5 % Please note range changes. [id number] DOrdered By: Noris Sepulveda on 06-02-2024 Vitamin D 25-Hydroxy 53.0 ng/mL [facility] Comment on above: Vitamin D 25(OH) Sta tus Range Deficiency <20 ng/mL (50nmol/L) Insufficiency 20 - 30 ng/mL (50 - 75 nmol/L) Sufficiency 30 - 100 ng/mL (75 - 250 nmol/L) Toxicity >100 ng/mL (>250 nmol/L) [id number] DOrdered By: Noris Sepulveda on 04-21-2024 Vitamin D 25-Hydroxy 64.0 ng/mL [facility] Comment on above: Vitamin D 25(OH) Sta tus Range Deficiency <20 ng/mL (50nmol/L) Insufficiency 20 - 30 ng/mL (50 - 75 nmol/L) Sufficiency 30 - 100 ng/mL (75 - 250 nmol/L) Toxicity >100 ng/mL (>250 nmol/L) Basophil percentageOrdered B y: Donato Sepulveda on 08-06-2023 Bilirubin [Mass/Vol] 0.50 mg/dL 0.20-1.00 [facility] Comment on above: For patients on eltr ombopag therapy, use of Dimension [place] TBIL is not recommended. Chloride [Moles/Vol] 105 mmol/L 98-107 [facility] Glucose [Mass/Vol] 153 mg/dL 74-106 [facility] Comment on above: Fasting Glucose resu lt greater than or equal to 126 mg/dL suggests DIABETES MELLITUS per A.D.A. criteria. Hemoglobin (Bld) [Mass/Vol] 12.4 g/dL 12.0-15.0 [facility] Potassium [Moles/Vol] 4.0 mmol/L 3.5-5.1 [facility] Protein [Mass/Vol] 6.7 g/dL 6.4-8.2 [facility] Sodium [Moles/Vol] 139 mmol/L 136-145 [facility] WBC (Bld) [#/Vol] 5.9 10*3/uL 4.4-11.0 [facility] Determination of erythrocyte mean corpuscular volume (MCV)Ordered By: Donato Sepulveda on 08-06-2023 MCV (RBC) [Entitic vol] 92.5 fL 81-99 [facility] Erythrocyte distribution wid th ratioOrdered By: [facility], Atlantachar Sepulveda on 08-06-2023 Erythrocyte distribution width (RBC) [Ratio] 13.3 % 11.6-14.6 [facility] Erythrocyte distribution wid th standard deviationOrdered By: Raulmoss landingchar Sepulveda on 08-06-2023 Erythrocyte distribution width (RBC) [Entitic vol] 45.2 fL 35.1-43.9 [facility] Hematocrit Auto (Bld) [Volum e fraction]Ordered By: Donato Sepulveda on 08-06-2023 Hematocrit (Bld) [Volume fraction] 39.7 % 37-47 [facility] Laboratory - Chemistry and C hemistry - challengeOrdered By: Donato Sepulveda on 08-06-2023 Albumin/Globulin [Mass ratio] 1.0 {ratio} 0.9-2.4 [facility] ALP [Catalytic activity/Vol] 59 U/L 45-117 [facility] ALT [Catalytic activity/Vol] 13 U/L 13-56 [facility] CO2 [Moles/Vol] 29.0 mmol/L 21.0-32.0 [facility] Globulin (S) [Mass/Vol] 3.3 g/dL 2.2-4.2 [facility] Urea nitrogen/Creatinine [Mass ratio] 14.4 mg/mg 10-20 [facility] Laboratory - Hematology and Cell countsOrdered By: Donato Sepulveda on 08-06-2023 MCH (RBC) [Entitic mass] 28.9 pg 27.0-32.0 [facility] MCHC (RBC) [Mass/Vol] 31.2 g/dL 32-36 [facility] Platelet mean volume (Bld) [Entitic vol] 10.1 fL 6.2-12.0 [facility] Platelets (Bld) [#/Vol] 187 10*3/uL 150-450 [facility] No Panel InformationOrdered By: Donato Sepulveda on 08-06-2023 Estimated GFR (MDRD) Amer 94 mL/min >60 [facility] Comment on above: GFR Calc Estimated GFR (MDRD) Non-Af Amer 77 mL/min >60 [facility] Comment on above: Non- GFR Calc RBC Auto (Bld) [#/Vol]Ordere d By: Donato Sepulveda on 08-06-2023 RBC (Bld) [#/Vol] 4.29 10*6/uL 4.2-5.4 [facility] Serum or plasma calcium serge urement (mass/volume)Ordered By: Donato Sepulveda on 08-06-2023 Calcium [Mass/Vol] 9.0 mg/dL 8.5-10.1 [facility] Serum or plasma creatinine m easurement (mass/volume)Ordered By: Donato Sepulveda on 08-06-2023 Creatinine [Mass/Vol] 0.76 mg/dL 0.55-1.02 [facility] Comment on above: The validity of the calculated GFR & GFRAA in patients over 70 years has not been determined. Clinical correlation is essential. Serum or plasma urea nitroge n measurement (mass/volume)Ordered By: Donato Sepulveda on 08-06-2023 Urea nitrogen [Mass/Vol] 11 mg/dL 7-18 [facility] Thin prep Papanicolaou smear with manual screeningOrdered By: Donato Sepulveda on 08-06-2023 Thin prep Papanicolaou smear with manual screening 3.4 g/dL 3.2-5.0 [facility] Thin prep Papanicolaou smear with manual screening 15 U/L 15-37 [facility] Thin prep Papanicolaou smear with manual screening 5 5-15 [facility] Basophil percentageOrdered B y: Donato Sepulveda on 06-11-2023 Bilirubin [Mass/Vol] 0.50 mg/dL 0.20-1.00 [facility] Comment on above: For patients on eltr ombopag therapy, use of [place] TBIL is not recommended. Chloride [Moles/Vol] 105 mmol/L 98-107 [facility] Glucose [Mass/Vol] 92 mg/dL 74-106 [facility] Hemoglobin (Bld) [Mass/Vol] 12.1 g/dL 12.0-15.0 [facility] Potassium [Moles/Vol] 3.7 mmol/L 3.5-5.1 [facility] Protein [Mass/Vol] 6.9 g/dL 6.4-8.2 [facility] Sodium [Moles/Vol] 140 mmol/L 136-145 [facility] WBC (Bld) [#/Vol] 7.0 10*3/uL 4.4-11.0 [facility] Determination of erythrocyte mean corpuscular volume (MCV)Ordered By: Donato Sepulveda on 06-11-2023 MCV (RBC) [Entitic vol] 92.6 fL 81-99 [facility] Erythrocyte distribution wid th ratioOrdered By: Donato Sepulveda on 06-11-2023 Erythrocyte distribution width (RBC) [Ratio] 12.5 % 11.6-14.6 [facility] Erythrocyte distribution wid th standard deviationOrdered By: Donato Sepulveda on 06-11-2023 Erythrocyte distribution width (RBC) [Entitic vol] 42.4 fL 35.1-43.9 [facility] Hematocrit Auto (Bld) [Volum e fraction]Ordered By: Donato Sepulveda on 06-11-2023 Hematocrit (Bld) [Volume fraction] 38.6 % 37-47 [facility] Laboratory - Chemistry and C hemistry - challengeOrdered By: Donato Sepulveda on 06-11-2023 Albumin/Globulin [Mass ratio] 0.8 {ratio} 0.9-2.4 [facility] ALP [Catalytic activity/Vol] 85 U/L 45-117 [facility] ALT [Catalytic activity/Vol] 18 U/L 13-56 [facility] CO2 [Moles/Vol] 29.0 mmol/L 21.0-32.0 [facility] Globulin (S) [Mass/Vol] 3.8 g/dL 2.2-4.2 [facility] Urea nitrogen/Creatinine [Mass ratio] 18.3 mg/mg 10-20 [facility] Laboratory - Hematology and Cell countsOrdered By: Donato Sepulveda on 06-11-2023 MCH (RBC) [Entitic mass] 29.0 pg 27.0-32.0 [facility] MCHC (RBC) [Mass/Vol] 31.3 g/dL 32-36 [facility] Platelet mean volume (Bld) [Entitic vol] 11.0 fL 6.2-12.0 [facility] Platelets (Bld) [#/Vol] 190 10*3/uL 150-450 [facility] No Panel InformationOrdered By: Donato Sepulveda on 06-11-2023 Estimated GFR (MDRD) Amer 80 mL/min >60 [facility] Comment on above: GFR Calc Estimated GFR (MDRD) Non-Af Amer 66 mL/min >60 [facility] Comment on above: Non- GFR Calc Vitamin D 25-Hydroxy 29.3 ng/mL [facility] Comment on above: Vitamin D 25(OH) Sta tus Range Deficiency <20 ng/mL (50nmol/L) Insufficiency 20 - 30 ng/mL (50 - 75 nmol/L) Sufficiency 30 - 100 ng/mL (75 - 250 nmol/L) Toxicity >100 ng/mL (>250 nmol/L) RBC Auto (Bld) [#/Vol]Ordere d By: Donato Sepulveda on 06-11-2023 RBC (Bld) [#/Vol] 4.17 10*6/uL 4.2-5.4 [facility] Serum or plasma calcium serge urement (mass/volume)Ordered By: Donato Sepulveda on 06-11-2023 Calcium [Mass/Vol] 9.2 mg/dL 8.5-10.1 [facility] Serum or plasma creatinine m easurement (mass/volume)Ordered By: Donato Sepulveda on 06-11-2023 Creatinine [Mass/Vol] 0.87 mg/dL 0.55-1.02 [facility] Comment on above: The validity of the calculated GFR & GFRAA in patients over 70 years has not been determined. Clinical correlation is essential. Serum or plasma urea nitroge n measurement (mass/volume)Ordered By: Donato Sepulveda on 06-11-2023 Urea nitrogen [Mass/Vol] 16 mg/dL 7-18 [facility] Thin prep Papanicolaou smear with manual screeningOrdered By: [facility], Atlantachar Sepulveda on 06-11-2023 Thin prep Papanicolaou smear with manual screening 3.1 g/dL 3.2-5.0 [facility] Thin prep Papanicolaou smear with manual screening 18 U/L 15-37 [facility] Thin prep Papanicolaou smear with manual screening 6 5-15 [facility] Whole blood hemoglobin A1c/t otal hemoglobin ratio (mass fraction)Ordered By: Donato Sepulveda on 06-11-2023 HbA1c (Bld) [Mass fraction] 8.7 % 3.8-5.6 [facility] Comment on above: Normal < 5.7 % Predi abetic 5.7 - 6.4 % Diabetic >or= 6.5 % Please note range changes. Absolute lymphocyte countOrd ered By: Colleen Walker on 06-05-2023 Lymphocytes Auto (Unsp spec) [#/Vol] 1.18 10*3/uL 0.83-4.51 [facility] Automated lymphocyte count a s percentage of total leukocytesOrdered By: Colleen Walker on 06-05-2023 Lymphocytes/100 WBC Auto (Unsp spec) 13.6 % 19-41 [facility] Basophil percentageOrdered B y: Colleen Walker on 06-05-2023 Basophil percentage 5-10 SEEN /hpf 0-5 [facility] Basophils/100 WBC (Bld) 0.6 % 0-1 [facility] Chloride [Moles/Vol] 104 mmol/L 98-107 [facility] Eosinophils/100 WBC (Bld) 2.0 % 0-5 [facility] Glucose [Mass/Vol] 150 mg/dL 74-106 [facility] Comment on above: Fasting Glucose resu lt greater than or equal to 126 mg/dL suggests DIABETES MELLITUS per A.D.A. criteria. Hemoglobin (Bld) [Mass/Vol] 13.2 g/dL 12.0-15.0 [facility] Monocytes/100 WBC (Bld) 7.2 % 0-10 [facility] Neutrophils (Bld) [#/Vol] 6.6 10*3/uL 2.0-7.7 [facility] Neutrophils/100 WBC (Bld) 76.3 % 47-70 [facility] Potassium [Moles/Vol] 3.6 mmol/L 3.5-5.1 [facility] Sodium [Moles/Vol] 137 mmol/L 136-145 [facility] WBC (Bld) [#/Vol] 8.7 10*3/uL 4.4-11.0 [facility] Bilirubin Test strip Ql (U)O rdered By: Colleen Walker on 06-05-2023 Bilirubin Ql (U) Negative Negative [facility] Determination of erythrocyte mean corpuscular volume (MCV)Ordered By: Colleen Walker on 06-05-2023 MCV (RBC) [Entitic vol] 92.9 fL 81-99 [facility] Erythrocyte distribution wid th ratioOrdered By: Colleen Walker on 06-05-2023 Erythrocyte distribution width (RBC) [Ratio] 12.6 % 11.6-14.6 [facility] Erythrocyte distribution wid th standard deviationOrdered By: Colleen Walker on 06-05-2023 Erythrocyte distribution width (RBC) [Entitic vol] 43.4 fL 35.1-43.9 [facility] Hematocrit Auto (Bld) [Volum e fraction]Ordered By: Colleen Walker on 06-05-2023 Hematocrit (Bld) [Volume fraction] 42.1 % 37-47 [facility] Immature granulocytes/100 WB C Auto (Bld)Ordered By: Colleen Walker on 06-05-2023 Immature granulocytes/100 WBC (Bld) 0.300 % 0.0-0.9 [facility] Comment on above: IG% - Immature Granu locytes (promyelocytes, myelocytes and metamyelocytes) > 1% indicates that a LEFT SHIFT is Present. Ketones Test strip Ql (U)Ord ered By: Colleen Walker on 06-05-2023 Ketones Ql (U) Negative Negative [facility] Laboratory - Chemistry and C hemistry - challengeOrdered By: Colleen Walker on 06-05-2023 CO2 [Moles/Vol] 32.0 mmol/L 21.0-32.0 [facility] Urea nitrogen/Creatinine [Mass ratio] 21.9 mg/mg 10-20 [facility] Laboratory - Hematology and Cell countsOrdered By: Colleen Walker on 06-05-2023 MCH (RBC) [Entitic mass] 29.1 pg 27.0-32.0 [facility] MCHC (RBC) [Mass/Vol] 31.4 g/dL 32-36 [facility] Nucleated RBC/100 WBC (Bld) [Ratio] 0 % 0-5 [facility] Platelets (Bld) [#/Vol] 180 10*3/uL 150-450 [facility] Mucus LM Ql (Urine sed)Order ed By: Colleen Walker on 06-05-2023 Mucus Ql (Urine sed) 0 SEEN /hpf [facility] Nitrite Test strip Ql (U)Ord ered By: Colleen Walker on 06-05-2023 Nitrite Ql (U) Negative Negative [facility] No Panel InformationOrdered By: Colleen Walker on 06-05-2023 Urine RBC 0 SEEN /hpf 0-5 [facility] Estimated Creatinine Clearance Calc 48.43 ml/min [facility] Estimated GFR (MDRD) Amer 92 mL/min >60 [facility] Comment on above: GFR Calc Estimated GFR (MDRD) Non-Af Amer 76 mL/min >60 [facility] Comment on above: Non- GFR Calc Platelet mean volume Jamie-Ec ker (Bld) [Entitic vol]Ordered By: Colleen Walker on 06-05-2023 Platelet mean volume (Bld) [Entitic vol] 10.3 fL 6.2-12.0 [facility] Protein Test strip Ql (U)Ord ered By: Colleen Walker on 06-05-2023 Protein Ql (U) 15 mg/dl Negative [facility] RBC Auto (Bld) [#/Vol]Ordere d By: Colleen Walker on 06-05-2023 RBC (Bld) [#/Vol] 4.53 10*6/uL 4.2-5.4 [facility] Serum or plasma calcium serge urement (mass/volume)Ordered By: Colleen Walker on 06-05-2023 Calcium [Mass/Vol] 9.3 mg/dL 8.5-10.1 [facility] Serum or plasma creatinine m easurement (mass/volume)Ordered By: Colleen Walker on 06-05-2023 Creatinine [Mass/Vol] 0.78 mg/dL 0.55-1.02 [facility] Comment on above: The validity of the calculated GFR & GFRAA in patients over 70 years has not been determined. Clinical correlation is essential. Serum or plasma urea nitroge n measurement (mass/volume)Ordered By: Colleen Walker on 06-05-2023 Urea nitrogen [Mass/Vol] 17 mg/dL 7-18 [facility] Squamous epithelial cells de tection in urine sediment by light microscopyOrdered By: Colleen Walker on 06-05-2023 Epithelial cells.squamous LM Ql (Urine sed) 5-10 SEEN /hpf 5-10 [facility] Thin prep Papanicolaou smear with manual screeningOrdered By: Colleen Walker on 06-05-2023 Thin prep Papanicolaou smear with manual screening 1 5-15 [facility] Urine blood detectionOrdered By: Colleen Walker on 06-05-2023 RBC Ql (U) 50 /ul Negative [facility] Urine clarityOrdered By: Yadira Walker on 06-05-2023 Clarity (U) Sl. Cloudy Clear [facility] Urine color determinationOrd ered By: Colleen Walker on 06-05-2023 Color (U) Yellow Yellow [facility] Urine glucose detectionOrder ed By: Colleen Walker on 06-05-2023 Glucose Ql (U) 1000 mg/dl Normal [facility] Urine leukocyte esterase det ection by dipstickOrdered By: Colleen Walker on 06-05-2023 Leukocyte esterase Test strip Ql (U) 100 /ul Negative [facility] Urine pHOrdered By: Colleen ma on 06-05-2023 pH (U) 6.0 [pH] 5.0 - 8.0 [facility] Urine sediment bacteria coun t by microscopy (number/high power field)Ordered By: Colleen Walker on 06-05-2023 Bacteria LM.HPF (Urine sed) [#/Area] 0 /[HPF] None Seen [facility] Urine specific gravity measu rementOrdered By: Colleen Walker on 06-05-2023 Specific gravity (U) [Rel density] 1.015 1.002-1.030 [facility] Urine urobilinogen measureme ntOrdered By: Colleen Walker on 06-05-2023 Urobilinogen Ql (U) Normal mg/dl Normal [facility] Absolute lymphocyte countOrd ered By: Donato Sepulveda on 04-23-2023 Lymphocytes Auto (Unsp spec) [#/Vol] 1.27 10*3/uL 0.83-4.51 [facility] Basophil percentageOrdered B y: Donato Sepulveda on 04-23-2023 Basophils/100 WBC (Bld) 0.3 % 0-1 [facility] Chloride [Moles/Vol] 106 mmol/L 98-107 [facility] Eosinophils/100 WBC (Bld) 4.6 % 0-5 [facility] Glucose [Mass/Vol] 96 mg/dL 74-106 [facility] Neutrophils (Bld) [#/Vol] 4.1 10*3/uL 2.0-7.7 [facility] Neutrophils/100 WBC (Bld) 67.6 % 47-70 [facility] Potassium [Moles/Vol] 3.7 mmol/L 3.5-5.1 [facility] Sodium [Moles/Vol] 141 mmol/L 136-145 [facility] WBC (Bld) [#/Vol] 6.1 10*3/uL 4.4-11.0 [facility] Blood erythrocytes count (nu mber/volume)Ordered By: Donato Sepulveda on 04-23-2023 RBC (Bld) [#/Vol] 4.10 10*6/uL 4.2-5.4 [facility] Blood hemoglobin measurement (mass/volume)Ordered By: Galichar Lombardirjnoris on 04-23-2023 Hemoglobin (Bld) [Mass/Vol] 12.0 g/dL 12.0-15.0 [facility] Blood lymphocytes/100 leukoc ytesOrdered By: Livierbalaji Lombardirjnoris on 04-23-2023 Lymphocytes/100 WBC (Bld) 20.9 % 19-41 [facility] Blood monocytes/100 leukocyt esOrdered By: marisabelchar Lombardirjnoris on 04-23-2023 Monocytes/100 WBC (Bld) 6.1 % 0-10 [facility] Blood platelet mean volumeOr dered By: Galichar Lombardirjnoris on 04-23-2023 Platelet mean volume (Bld) [Entitic vol] 10.3 fL 6.2-12.0 [facility] Determination of erythrocyte mean corpuscular volume (MCV)Ordered By: Donato Lombaridrjnoris on 04-23-2023 MCV (RBC) [Entitic vol] 93.9 fL 81-99 [facility] [facility] Hemat[facility] Auto (Bld) [Volum e fraction]Ordered By: Livierstudyanchar Lombardirjnoris on 04-23-2023 Hematocrit (Bld) [Volume fraction] 38.5 % 37-47 [facility] Laboratory - Chemistry and C hemistry - challengeOrdered By: Livierbalaji Lombardirjnoris on 04-23-2023 CO2 [Moles/Vol] 32.0 mmol/L 21.0-32.0 [facility] Urea nitrogen/Creatinine [Mass ratio] 21.8 mg/mg 10-20 [facility] Laboratory - Hematology and Cell countsOrdered By: Livierbalaji Lombardirjnoris on 04-23-2023 Erythrocyte distribution width (RBC) [Entitic vol] 44.9 fL 35.1-43.9 [facility] Erythrocyte distribution width (RBC) [Ratio] 13.0 % 11.6-14.6 [facility] Immature granulocytes/100 WBC (Bld) 0.500 % 0.0-0.9 [facility] Comment on above: IG% - Immature Granu locytes (promyelocytes, myelocytes and metamyelocytes) > 1% indicates that a LEFT SHIFT is Present. MCH (RBC) [Entitic mass] 29.3 pg 27.0-32.0 [facility] Nucleated RBC/100 WBC (Bld) [Ratio] 0 % 0-5 [facility] MCHC Auto (RBC) [Mass/Vol]Or dered By: Donato Sepulveda on 04-23-2023 MCHC (RBC) [Mass/Vol] 31.2 g/dL 32-36 [facility] No Panel InformationOrdered By: Donato Sepulveda on 04-23-2023 Estimated GFR (MDRD) Amer 106 mL/min >60 [facility] Comment on above: GFR Calc Estimated GFR (MDRD) Non-Af Amer 87 mL/min >60 [facility] Comment on above: Non- GFR Calc Platelets bldOrdered By: Sherwin Sepulveda on 04-23-2023 Platelets (Bld) [#/Vol] 207 10*3/uL 150-450 [facility] Serum or plasma calcium serge urement (mass/volume)Ordered By: Donato Sepulveda on 04-23-2023 Calcium [Mass/Vol] 9.3 mg/dL 8.5-10.1 [facility] Serum or plasma creatinine m easurement (mass/volume)Ordered By: Donato Sepulveda on 04-23-2023 Creatinine [Mass/Vol] 0.69 mg/dL 0.55-1.02 [facility] Comment on above: The validity of the calculated GFR & GFRAA in patients over 70 years has not been determined. Clinical correlation is essential. Serum or plasma urea nitroge n measurement (mass/volume)Ordered By: Donato Sepulveda on 04-23-2023 Urea nitrogen [Mass/Vol] 15 mg/dL 7-18 [facility] Thin prep Papanicolaou smear with manual screeningOrdered By: Donato Sepulveda on 04-23-2023 Thin prep Papanicolaou smear with manual screening 3 5-15 [facility] Basophil percentageOrdered B y: Donato Sepulveda on 04-19-2023 Potassium [Moles/Vol] 4.3 mmol/L 3.5-5.1 [facility] Basophil percentageOrdered B y: Donato Sepulveda on 04-09-2023 Bilirubin [Mass/Vol] 0.30 mg/dL 0.20-1.00 [facility] Comment on above: For patients on eltr ombopag therapy, use of Dimension [place] TBIL is not recommended. Chloride [Moles/Vol] 106 mmol/L 98-107 [facility] Glucose [Mass/Vol] 55 mg/dL 74-106 [facility] Potassium [Moles/Vol] 3.9 mmol/L 3.5-5.1 [facility] Protein [Mass/Vol] 7.2 g/dL 6.4-8.2 [facility] Sodium [Moles/Vol] 139 mmol/L 136-145 [facility] WBC (Bld) [#/Vol] 7.9 10*3/uL 4.4-11.0 [facility] Blood erythrocytes count (nu mber/volume)Ordered By: Donato Sepulveda on 04-09-2023 RBC (Bld) [#/Vol] 4.36 10*6/uL 4.2-5.4 [facility] Blood hemoglobin measurement (mass/volume)Ordered By: Donato Sepulveda on 04-09-2023 Hemoglobin (Bld) [Mass/Vol] 12.7 g/dL 12.0-15.0 [facility] Blood platelet mean volumeOr dered By: Donato Sepulveda on 04-09-2023 Platelet mean volume (Bld) [Entitic vol] 10.9 fL 6.2-12.0 [facility] Determination of erythrocyte mean corpuscular volume (MCV)Ordered By: Donato Sepulveda on 04-09-2023 MCV (RBC) [Entitic vol] 94.5 fL 81-99 [facility] Hematocrit Auto (Bld) [Volum e fraction]Ordered By: Donato Sepulveda on 04-09-2023 Hematocrit (Bld) [Volume fraction] 41.2 % 37-47 [facility] Laboratory - Chemistry and C hemistry - challengeOrdered By: Donato Sepulveda on 04-09-2023 ALP [Catalytic activity/Vol] 90 U/L 45-117 [facility] ALT [Catalytic activity/Vol] 21 U/L 13-56 [facility] CO2 [Moles/Vol] 30.0 mmol/L 21.0-32.0 [facility] Globulin (S) [Mass/Vol] 3.7 g/dL 2.2-4.2 [facility] Urea nitrogen/Creatinine [Mass ratio] 22.9 mg/mg 10-20 [facility] Laboratory - Hematology and Cell countsOrdered By: Donato Sepulveda on 04-09-2023 Erythrocyte distribution width (RBC) [Entitic vol] 44.3 fL 35.1-43.9 [facility] Erythrocyte distribution width (RBC) [Ratio] 12.8 % 11.6-14.6 [facility] MCH (RBC) [Entitic mass] 29.1 pg 27.0-32.0 [facility] MCHC Auto (RBC) [Mass/Vol]Or dered By: Donato Sepulveda on 04-09-2023 MCHC (RBC) [Mass/Vol] 30.8 g/dL 32-36 [facility] No Panel InformationOrdered By: Donato Sepulveda on 04-09-2023 Estimated GFR (MDRD) Amer 97 mL/min >60 [facility] Comment on above: GFR Calc Estimated GFR (MDRD) Non-Af Amer 80 mL/min >60 [facility] Comment on above: Non- GFR Calc Platelets bldOrdered By: Sherwin Sepulveda on 04-09-2023 Platelets (Bld) [#/Vol] 212 10*3/uL 150-450 [facility] Serum or plasma albumin serge urement (mass/volume)Ordered By: Donato Sepulveda on 04-09-2023 Albumin [Mass/Vol] 3.5 g/dL 3.2-5.0 [facility] Serum or plasma albumin/glob ulin mass ratioOrdered By: Donato Sepulveda on 04-09-2023 Albumin/Globulin [Mass ratio] 0.9 {ratio} 0.9-2.4 [facility] Serum or plasma calcium serge urement (mass/volume)Ordered By: Donato Sepulveda on 04-09-2023 Calcium [Mass/Vol] 9.4 mg/dL 8.5-10.1 [facility] Serum or plasma creatinine m easurement (mass/volume)Ordered By: Donato Sepulveda on 04-09-2023 Creatinine [Mass/Vol] 0.74 mg/dL 0.55-1.02 [facility] Comment on above: The validity of the calculated GFR & GFRAA in patients over 70 years has not been determined. Clinical correlation is essential. Serum or plasma urea nitroge n measurement (mass/volume)Ordered By: Donato Sepulveda on 04-09-2023 Urea nitrogen [Mass/Vol] 17 mg/dL 7-18 [facility] Thin prep Papanicolaou smear with manual screeningOrdered By: Donato Sepulveda on 04-09-2023 Thin prep Papanicolaou smear with manual screening 19 U/L 15-37 [facility] Thin prep Papanicolaou smear with manual screening 3 5-15 [facility] No Panel InformationOrdered By: Donato Sepulveda on 03-12-2023 Vitamin D 25-Hydroxy 34.4 ng/mL [facility] Comment on above: Vitamin D 25(OH) Sta tus Range Deficiency <20 ng/mL (50nmol/L) Insufficiency 20 - 30 ng/mL (50 - 75 nmol/L) Sufficiency 30 - 100 ng/mL (75 - 250 nmol/L) Toxicity >100 ng/mL (>250 nmol/L) Whole blood hemoglobin A1c/t otal hemoglobin ratio (mass fraction)Ordered By: Donato Sepulveda on 03-12-2023 HbA1c (Bld) [Mass fraction] 7.4 % 3.8-5.6 [facility] Comment on above: Normal < 5.7 % Predi abetic 5.7 - 6.4 % Diabetic >or= 6.5 % Please note range changes. Basophil percentageOrdered B y: Donato Sepulveda on 02-05-2023 Bilirubin [Mass/Vol] 0.50 mg/dL 0.20-1.00 [facility] Comment on above: For patients on eltr ombopag therapy, use of Dimension [place] TBIL is not recommended. Chloride [Moles/Vol] 105 mmol/L 98-107 [facility] Glucose [Mass/Vol] 106 mg/dL 74-106 [facility] Comment on above: Fasting Glucose resu lt from 100 to 125 mg/dL suggests IMPAIRED HOMEOSTASIS per A.D.A. criteria. Potassium [Moles/Vol] 4.2 mmol/L 3.5-5.1 [facility] Protein [Mass/Vol] 6.9 g/dL 6.4-8.2 [facility] Sodium [Moles/Vol] 142 mmol/L 136-145 [facility] WBC (Bld) [#/Vol] 6.0 10*3/uL 4.4-11.0 [facility] Blood erythrocytes count (nu mber/volume)Ordered By: Donato Sepulveda on 02-05-2023 RBC (Bld) [#/Vol] 4.18 10*6/uL 4.2-5.4 [facility] Blood hemoglobin measurement (mass/volume)Ordered By: Donato Sepulveda on 02-05-2023 Hemoglobin (Bld) [Mass/Vol] 12.1 g/dL 12.0-15.0 [facility] Blood platelet mean volumeOr dered By: Donato Sepulveda on 02-05-2023 Platelet mean volume (Bld) [Entitic vol] 10.7 fL 6.2-12.0 [facility] Determination of erythrocyte mean corpuscular volume (MCV)Ordered By: Donato Sepulveda on 02-05-2023 MCV (RBC) [Entitic vol] 95.2 fL 81-99 [facility] Direct bilirubinOrdered By: Donato Sepulveda on 02-05-2023 Bilirubin.direct [Mass/Vol] 0.15 mg/dL 0.00-0.30 [facility] Hematocrit Auto (Bld) [Volum e fraction]Ordered By: Donato Sepulveda on 02-05-2023 Hematocrit (Bld) [Volume fraction] 39.8 % 37-47 [facility] Laboratory - Chemistry and C hemistry - challengeOrdered By: Donato Sepulveda on 02-05-2023 ALP [Catalytic activity/Vol] 73 U/L 45-117 [facility] ALT [Catalytic activity/Vol] 20 U/L 13-56 [facility] CO2 [Moles/Vol] 32.0 mmol/L 21.0-32.0 [facility] Globulin (S) [Mass/Vol] 3.5 g/dL 2.2-4.2 [facility] Urea nitrogen/Creatinine [Mass ratio] 20.8 mg/mg 10-20 [facility] Laboratory - Hematology and Cell countsOrdered By: Donato Sepulveda on 02-05-2023 Erythrocyte distribution width (RBC) [Entitic vol] 46.1 fL 35.1-43.9 [facility] Erythrocyte distribution width (RBC) [Ratio] 13.1 % 11.6-14.6 [facility] MCH (RBC) [Entitic mass] 28.9 pg 27.0-32.0 [facility] MCHC Auto (RBC) [Mass/Vol]Or dered By: Donato Sepulveda on 02-05-2023 MCHC (RBC) [Mass/Vol] 30.4 g/dL 32-36 [facility] No Panel InformationOrdered By: Donato Sepulveda on 02-05-2023 Estimated GFR (MDRD) Amer 93 mL/min >60 [facility] Comment on above: GFR Calc Estimated GFR (MDRD) Non-Af Amer 76 mL/min >60 [facility] Comment on above: Non- GFR Calc Platelets bldOrdered By: Sherwin Sepulveda on 02-05-2023 Platelets (Bld) [#/Vol] 183 10*3/uL 150-450 [facility] Serum or plasma albumin serge urement (mass/volume)Ordered By: Donato Sepulveda on 02-05-2023 Albumin [Mass/Vol] 3.4 g/dL 3.2-5.0 [facility] Serum or plasma albumin/glob ulin mass ratioOrdered By: Donato Sepulveda on 02-05-2023 Albumin/Globulin [Mass ratio] 1.0 {ratio} 0.9-2.4 [facility] Serum or plasma calcium serge urement (mass/volume)Ordered By: Donato Sepulveda on 02-05-2023 Calcium [Mass/Vol] 9.4 mg/dL 8.5-10.1 [facility] Serum or plasma creatinine m easurement (mass/volume)Ordered By: Donato Sepulveda on 02-05-2023 Creatinine [Mass/Vol] 0.77 mg/dL 0.55-1.02 [facility] Comment on above: The validity of the calculated GFR & GFRAA in patients over 70 years has not been determined. Clinical correlation is essential. Serum or plasma urea nitroge n measurement (mass/volume)Ordered By: Donato Sepulveda on 02-05-2023 Urea nitrogen [Mass/Vol] 16 mg/dL 7-18 [facility] Thin prep Papanicolaou smear with manual screeningOrdered By: Donato Sepulveda on 02-05-2023 Thin prep Papanicolaou smear with manual screening 18 U/L 15-37 [facility] Thin prep Papanicolaou smear with manual screening 5 5-15 [facility] Whole blood hemoglobin A1c/t otal hemoglobin ratio (mass fraction)Ordered By: Donato Sepulveda on 02-05-2023 HbA1c (Bld) [Mass fraction] 7.0 % 3.8-5.6 [facility] Comment on above: Normal < 5.7 % Predi abetic 5.7 - 6.4 % Diabetic >or= 6.5 % Please note range changes. Basophil percentageOrdered B y: Donato Sepulveda on 12-07-2022 Potassium [Moles/Vol] 4.7 mmol/L 3.5-5.1 [facility] Basophil percentageOrdered B y: Donato Sepulveda on 12-04-2022 Bilirubin [Mass/Vol] 0.30 mg/dL 0.20-1.00 [facility] Comment on above: For patients on eltr ombopag therapy, use of Dimension [place] TBIL is not recommended. Chloride [Moles/Vol] 102 mmol/L 98-107 [facility] Glucose [Mass/Vol] 219 mg/dL 74-106 [facility] Comment on above: Glucose result great er than or equal to 200 mg/dLsuggests DIABETES MELLITUS per A.D.A. criteria. Potassium [Moles/Vol] 2.9 mmol/L 3.5-5.1 [facility] Protein [Mass/Vol] 6.6 g/dL 6.4-8.2 [facility] Sodium [Moles/Vol] 137 mmol/L 136-145 [facility] WBC (Bld) [#/Vol] 4.6 10*3/uL 4.4-11.0 [facility] Blood erythrocytes count (nu mber/volume)Ordered By: Donato Sepulveda on 12-04-2022 RBC (Bld) [#/Vol] 4.22 10*6/uL 4.2-5.4 [facility] Blood hemoglobin measurement (mass/volume)Ordered By: Donato Sepulveda on 12-04-2022 Hemoglobin (Bld) [Mass/Vol] 12.4 g/dL 12.0-15.0 [facility] Blood platelet mean volumeOr dered By: stumoss landingchar Sepulveda on 12-04-2022 Platelet mean volume (Bld) [Entitic vol] 10.7 fL 6.2-12.0 [facility] Determination of erythrocyte mean corpuscular volume (MCV)Ordered By: Donato Sepulveda on 12-04-2022 MCV (RBC) [Entitic vol] 93.8 fL 81-99 [facility] Hematocrit Auto (Bld) [Volum e fraction]Ordered By: Donato Sepulveda on 12-04-2022 Hematocrit (Bld) [Volume fraction] 39.6 % 37-47 [facility] Laboratory - Chemistry and C hemistry - challengeOrdered By: stumoss landingchar Sepulveda on 12-04-2022 ALP [Catalytic activity/Vol] 85 U/L 45-117 [facility] ALT [Catalytic activity/Vol] 27 U/L 13-56 [facility] CO2 [Moles/Vol] 33.0 mmol/L 21.0-32.0 [facility] Globulin (S) [Mass/Vol] 3.6 g/dL 2.2-4.2 [facility] Urea nitrogen/Creatinine [Mass ratio] 13.7 mg/mg 10-20 [facility] Laboratory - Hematology and Cell countsOrdered By: Donato Sepulveda on 12-04-2022 Erythrocyte distribution width (RBC) [Entitic vol] 43.8 fL 35.1-43.9 [facility] Erythrocyte distribution width (RBC) [Ratio] 12.8 % 11.6-14.6 [facility] MCH (RBC) [Entitic mass] 29.4 pg 27.0-32.0 [facility] MCHC Auto (RBC) [Mass/Vol]Or dered By: Donato Sepulveda on 12-04-2022 MCHC (RBC) [Mass/Vol] 31.3 g/dL 32-36 [facility] No Panel InformationOrdered By: Donato Sepulveda on 12-04-2022 Estimated GFR (MDRD) Amer 80 mL/min >60 [facility] Comment on above: GFR Calc Estimated GFR (MDRD) Non-Af Amer 66 mL/min >60 [facility] Comment on above: Non- GFR Calc Vitamin D 25-Hydroxy 40.9 ng/mL [facility] Comment on above: Vitamin D 25(OH) Sta tus Range Deficiency <20 ng/mL (50nmol/L) Insufficiency 20 - 30 ng/mL (50 - 75 nmol/L) Sufficiency 30 - 100 ng/mL (75 - 250 nmol/L) Toxicity >100 ng/mL (>250 nmol/L) Platelets bldOrdered By: Sherwin Sepulveda on 12-04-2022 Platelets (Bld) [#/Vol] 167 10*3/uL 150-450 [facility] Serum or plasma albumin serge urement (mass/volume)Ordered By: Donato Sepulveda on 12-04-2022 Albumin [Mass/Vol] 3.0 g/dL 3.2-5.0 [facility] Serum or plasma albumin/glob ulin mass ratioOrdered By: Donato Sepulveda on 12-04-2022 Albumin/Globulin [Mass ratio] 0.8 {ratio} 0.9-2.4 [facility] Serum or plasma calcium serge urement (mass/volume)Ordered By: Donato Sepulveda on 12-04-2022 Calcium [Mass/Vol] 8.6 mg/dL 8.5-10.1 [facility] Serum or plasma creatinine m easurement (mass/volume)Ordered By: Donato Sepulveda on 12-04-2022 Creatinine [Mass/Vol] 0.88 mg/dL 0.55-1.02 [facility] Comment on above: The validity of the calculated GFR & GFRAA in patients over 70 years has not been determined. Clinical correlation is essential. Serum or plasma urea nitroge n measurement (mass/volume)Ordered By: Donato Sepulveda on 12-04-2022 Urea nitrogen [Mass/Vol] 12 mg/dL 7-18 [facility] Thin prep Papanicolaou smear with manual screeningOrdered By: Donato Sepulveda on 12-04-2022 Thin prep Papanicolaou smear with manual screening 31 U/L 15-37 [facility] Thin prep Papanicolaou smear with manual screening 2 5-15 [facility] Whole blood hemoglobin A1c/t otal hemoglobin ratio (mass fraction)Ordered By: Donato Sepulveda on 12-04-2022 HbA1c (Bld) [Mass fraction] 8.2 % 3.8-5.6 [facility] Comment on above: Normal < 5.7 % Predi abetic 5.7 - 6.4 % Diabetic >or= 6.5 % Please note range changes. Basophil percentageOrdered B y: Donato Sepulveda on 11-21-2022 Potassium [Moles/Vol] 3.3 mmol/L 3.5-5.1 [facility] Basophil percentageOrdered B y: Donato Sepulveda on 10-09-2022 Bilirubin [Mass/Vol] 0.40 mg/dL 0.20-1.00 [facility] Comment on above: For patients on eltr ombopag therapy, use of Dimension [place] TBIL is not recommended. Chloride [Moles/Vol] 104 mmol/L 98-107 [facility] Glucose [Mass/Vol] 135 mg/dL 74-106 [facility] Comment on above: Fasting Glucose resu lt greater than or equal to 126 mg/dL suggests DIABETES MELLITUS per A.D.A. criteria. Potassium [Moles/Vol] 3.1 mmol/L 3.5-5.1 [facility] Protein [Mass/Vol] 6.5 g/dL 6.4-8.2 [facility] Sodium [Moles/Vol] 141 mmol/L 136-145 [facility] WBC (Bld) [#/Vol] 6.8 10*3/uL 4.4-11.0 [facility] Blood erythrocytes count (nu mber/volume)Ordered By: Donato Sepulveda on 10-09-2022 RBC (Bld) [#/Vol] 3.95 10*6/uL 4.2-5.4 [facility] Blood hemoglobin measurement (mass/volume)Ordered By: Donato Sepulveda on 10-09-2022 Hemoglobin (Bld) [Mass/Vol] 11.7 g/dL 12.0-15.0 [facility] Blood platelet mean volumeOr dered By: Donato Sepuvleda on 10-09-2022 Platelet mean volume (Bld) [Entitic vol] 10.7 fL 6.2-12.0 [facility] Determination of erythrocyte mean corpuscular volume (MCV)Ordered By: Donato Sepulveda on 10-09-2022 MCV (RBC) [Entitic vol] 94.4 fL 81-99 [facility] Hematocrit Auto (Bld) [Volum e fraction]Ordered By: Raulmoss landingchar Sepulveda on 10-09-2022 Hematocrit (Bld) [Volume fraction] 37.3 % 37-47 [facility] Laboratory - Chemistry and C hemistry - challengeOrdered By: Donato Sepulveda on 10-09-2022 ALP [Catalytic activity/Vol] 61 U/L 45-117 [facility] ALT [Catalytic activity/Vol] 16 U/L 13-56 [facility] CO2 [Moles/Vol] 34.0 mmol/L 21.0-32.0 [facility] Globulin (S) [Mass/Vol] 3.3 g/dL 2.2-4.2 [facility] Urea nitrogen/Creatinine [Mass ratio] 13.5 mg/mg 10-20 [facility] Laboratory - Hematology and Cell countsOrdered By: Donato Sepulveda on 10-09-2022 Erythrocyte distribution width (RBC) [Entitic vol] 44.6 fL 35.1-43.9 [facility] Erythrocyte distribution width (RBC) [Ratio] 12.8 % 11.6-14.6 [facility] MCH (RBC) [Entitic mass] 29.6 pg 27.0-32.0 [facility] MCHC Auto (RBC) [Mass/Vol]Or dered By: Donato Sepulveda on 10-09-2022 MCHC (RBC) [Mass/Vol] 31.4 g/dL 32-36 [facility] No Panel InformationOrdered By: Donato Sepulveda on 10-09-2022 Estimated GFR (MDRD) Amer 97 mL/min >60 [facility] Comment on above: GFR Calc Estimated GFR (MDRD) Non-Af Amer 80 mL/min >60 [facility] Comment on above: Non- GFR Calc Platelets bldOrdered By: Sherwin Sepulveda on 10-09-2022 Platelets (Bld) [#/Vol] 157 10*3/uL 150-450 [facility] Serum or plasma albumin serge urement (mass/volume)Ordered By: Donato Sepulveda on 10-09-2022 Albumin [Mass/Vol] 3.2 g/dL 3.2-5.0 [facility] Serum or plasma albumin/glob ulin mass ratioOrdered By: Donato Sepulveda on 10-09-2022 Albumin/Globulin [Mass ratio] 1.0 {ratio} 0.9-2.4 [facility] Serum or plasma calcium serge urement (mass/volume)Ordered By: Donato Sepulveda on 10-09-2022 Calcium [Mass/Vol] 9.1 mg/dL 8.5-10.1 [facility] Serum or plasma creatinine m easurement (mass/volume)Ordered By: Donato Sepulveda on 10-09-2022 Creatinine [Mass/Vol] 0.74 mg/dL 0.55-1.02 [facility] Comment on above: The validity of the calculated GFR & GFRAA in patients over 70 years has not been determined. Clinical correlation is essential. Serum or plasma urea nitroge n measurement (mass/volume)Ordered By: Donato Sepulveda on 10-09-2022 Urea nitrogen [Mass/Vol] 10 mg/dL 7-18 [facility] Thin prep Papanicolaou smear with manual screeningOrdered By: Donato Sepulveda on 10-09-2022 Thin prep Papanicolaou smear with manual screening 15 U/L 15-37 [facility] Thin prep Papanicolaou smear with manual screening 3 5-15 [facility] Basophil percentageOrdered B y: Basilio Flores on 10-05-2022 Cholesterol [Mass/Vol] 146 mg/dL <200 [facility] Comment on above: <200 mg/dL Desirable 200-240 mg/dL Borderline >240 mg/dL High Risk Triglyceride [Mass/Vol] 83 mg/dL <199 [facility] Comment on above: The drugs N-Acetylcy steine and Metamizole may falsely depress this assay.Serum Triglycerides Reference Interval Normal <150 mg/dL Borderline high 150 - 199 mg/dL High 200 - 499 mg/dL Very High > or = 500 mg/dL Serum or plasma cholesterol in HDL measurement (mass/volume)Ordered By: Basilio Flores on 10-05-2022 Cholesterol in HDL [Mass/Vol] 69 mg/dL >40 [facility] Comment on above: The drugs N-Acetylcy steine and Metamizole may falsely depress this assay. Reference Range HDL <40 mg/dL Low HDL Cholesterol HDL >or= 60 mg/dL High HDL Cholesterol Serum or plasma cholesterol in VLDL measurement (mass/volume)Ordered By: Basilio Flores on 10-05-2022 Cholesterol in VLDL [Mass/Vol] 17 mg/dL 5-40 [facility] Serum or plasma low density lipoprotein (LDL) cholesterol measurement (mass/volume)Ordered By: Basilio Flores on 10-05-2022 Cholesterol in LDL [Mass/Vol] 60 mg/dL 0-130 [facility] Basophil percentageOrdered B y: Donato Sepulveda on 10-04-2022 Cholesterol [Mass/Vol] 154 mg/dL <200 [facility] Comment on above: <200 mg/dL Desirable 200-240 mg/dL Borderline >240 mg/dL High Risk Triglyceride [Mass/Vol] 72 mg/dL <199 [facility] Comment on above: The drugs N-Acetylcy steine and Metamizole may falsely depress this assay.Serum Triglycerides Reference Interval Normal <150 mg/dL Borderline high 150 - 199 mg/dL High 200 - 499 mg/dL Very High > or = 500 mg/dL Serum or plasma cholesterol in HDL measurement (mass/volume)Ordered By: Donato Sepulveda on 10-04-2022 Cholesterol in HDL [Mass/Vol] 70 mg/dL >40 [facility] Comment on above: The drugs N-Acetylcy steine and Metamizole may falsely depress this assay. Reference Range HDL <40 mg/dL Low HDL Cholesterol HDL >or= 60 mg/dL High HDL Cholesterol Serum or plasma cholesterol in VLDL measurement (mass/volume)Ordered By: Donato Sepulveda on 10-04-2022 Cholesterol in VLDL [Mass/Vol] 14 mg/dL 5-40 [facility] Serum or plasma low density lipoprotein (LDL) cholesterol measurement (mass/volume)Ordered By: Donato Sepulveda on 10-04-2022 Cholesterol in LDL [Mass/Vol] 70 mg/dL 0-130 [facility] No Panel InformationOrdered By: Basilio Flores on 09-04-2022 Vitamin D 25-Hydroxy 54.3 ng/mL [facility] Comment on above: Vitamin D 25(OH) Sta tus Range Deficiency <20 ng/mL (50nmol/L) Insufficiency 20 - 30 ng/mL (50 - 75 nmol/L) Sufficiency 30 - 100 ng/mL (75 - 250 nmol/L) Toxicity >100 ng/mL (>250 nmol/L) Whole blood hemoglobin A1c/t otal hemoglobin ratio (mass fraction)Ordered By: Basilio Flores on 09-04-2022 HbA1c (Bld) [Mass fraction] 10.9 % 3.8-5.6 [facility] Comment on above: Normal < 5.7 % Predi abetic 5.7 - 6.4 % Diabetic >or= 6.5 % Please note range changes. Basophil percentageOrdered B y: Donato Sepulveda on 08-07-2022 Bilirubin [Mass/Vol] 0.60 mg/dL 0.20-1.00 [facility] Comment on above: For patients on eltr ombopag therapy, use of Dimension [place] TBIL is not recommended. Chloride [Moles/Vol] 98 mmol/L 98-107 [facility] Glucose [Mass/Vol] 432 mg/dL 74-106 [facility] Comment on above: Glucose result great er than or equal to 200 mg/dLsuggests DIABETES MELLITUS per A.D.A. criteria. Potassium [Moles/Vol] 3.5 mmol/L 3.5-5.1 [facility] Protein [Mass/Vol] 6.8 g/dL 6.4-8.2 [facility] Sodium [Moles/Vol] 136 mmol/L 136-145 [facility] WBC (Bld) [#/Vol] 4.7 10*3/uL 4.4-11.0 [facility] Blood erythrocytes count (nu mber/volume)Ordered By: Donato Sepulveda on 08-07-2022 RBC (Bld) [#/Vol] 4.19 10*6/uL 4.2-5.4 [facility] Blood hemoglobin measurement (mass/volume)Ordered By: Donato Sepulveda on 08-07-2022 Hemoglobin (Bld) [Mass/Vol] 12.2 g/dL 12.0-15.0 [facility] Blood platelet mean volumeOr dered By: Donato Sepulveda on 08-07-2022 Platelet mean volume (Bld) [Entitic vol] 10.5 fL 6.2-12.0 [facility] Determination of erythrocyte mean corpuscular volume (MCV)Ordered By: Donato Sepulveda on 08-07-2022 MCV (RBC) [Entitic vol] 92.8 fL 81-99 [facility] Hematocrit Auto (Bld) [Volum e fraction]Ordered By: Donato Sepulveda on 08-07-2022 Hematocrit (Bld) [Volume fraction] 38.9 % 37-47 [facility] Laboratory - Chemistry and C hemistry - challengeOrdered By: Donato Sepulveda on 08-07-2022 ALP [Catalytic activity/Vol] 70 U/L 45-117 [facility] ALT [Catalytic activity/Vol] 19 U/L 13-56 [facility] CO2 [Moles/Vol] 36.0 mmol/L 21.0-32.0 [facility] Globulin (S) [Mass/Vol] 3.4 g/dL 2.2-4.2 [facility] Magnesium [Mass/Vol] 1.8 mg/dL 1.6-2.6 [facility] Urea nitrogen/Creatinine [Mass ratio] 15.1 mg/mg 10-20 [facility] Laboratory - Hematology and Cell countsOrdered By: Donato Sepulveda on 08-07-2022 Erythrocyte distribution width (RBC) [Entitic vol] 44.1 fL 35.1-43.9 [facility] Erythrocyte distribution width (RBC) [Ratio] 13.0 % 11.6-14.6 [facility] MCH (RBC) [Entitic mass] 29.1 pg 27.0-32.0 [facility] MCHC Auto (RBC) [Mass/Vol]Or dered By: Donato Sepulveda on 08-07-2022 MCHC (RBC) [Mass/Vol] 31.4 g/dL 32-36 [facility] No Panel InformationOrdered By: Donato Sepulveda on 08-07-2022 Estimated GFR (MDRD) Amer 64 mL/min >60 [facility] Comment on above: GFR Calc Estimated GFR (MDRD) Non-Af Amer 53 mL/min >60 [facility] Comment on above: Non- GFR Calc Platelets bldOrdered By: Sherwin Sepulveda on 08-07-2022 Platelets (Bld) [#/Vol] 165 10*3/uL 150-450 [facility] Serum or plasma albumin serge urement (mass/volume)Ordered By: Donato Sepulveda on 08-07-2022 Albumin [Mass/Vol] 3.4 g/dL 3.2-5.0 [facility] Serum or plasma albumin/glob ulin mass ratioOrdered By: Donato Sepulveda on 08-07-2022 Albumin/Globulin [Mass ratio] 1.0 {ratio} 0.9-2.4 [facility] Serum or plasma calcium serge urement (mass/volume)Ordered By: Donato Sepulveda on 08-07-2022 Calcium [Mass/Vol] 9.7 mg/dL 8.5-10.1 [facility] Serum or plasma creatinine m easurement (mass/volume)Ordered By: Donato Sepulveda on 08-07-2022 Creatinine [Mass/Vol] 1.06 mg/dL 0.55-1.02 [facility] Comment on above: The validity of the calculated GFR & GFRAA in patients over 70 years has not been determined. Clinical correlation is essential. Serum or plasma urea nitroge n measurement (mass/volume)Ordered By: Donato Sepulveda on 08-07-2022 Urea nitrogen [Mass/Vol] 16 mg/dL 7-18 [facility] Thin prep Papanicolaou smear with manual screeningOrdered By: Donato Sepulveda on 08-07-2022 Thin prep Papanicolaou smear with manual screening 15 U/L 15-37 [facility] Thin prep Papanicolaou smear with manual screening 2 5-15 [facility] Basophil percentageOrdered B y: Basilio Flores on 06-12-2022 Bilirubin [Mass/Vol] 1.10 mg/dL 0.20-1.00 [facility] Comment on above: For patients on eltr ombopag therapy, use of Dimension [place] TBIL is not recommended. Chloride [Moles/Vol] 99 mmol/L 98-107 [facility] Glucose [Mass/Vol] 163 mg/dL 74-106 [facility] Comment on above: Fasting Glucose resu lt greater than or equal to 126 mg/dL suggests DIABETES MELLITUS per A.D.A. criteria. Potassium [Moles/Vol] 3.4 mmol/L 3.5-5.1 [facility] Protein [Mass/Vol] 7.4 g/dL 6.4-8.2 [facility] Sodium [Moles/Vol] 141 mmol/L 136-145 [facility] WBC (Bld) [#/Vol] 8.0 10*3/uL 4.4-11.0 [facility] Blood erythrocytes count (nu mber/volume)Ordered By: Basilio Flores on 06-12-2022 RBC (Bld) [#/Vol] 4.53 10*6/uL 4.2-5.4 [facility] Blood hemoglobin measurement (mass/volume)Ordered By: Basilio Flores on 06-12-2022 Hemoglobin (Bld) [Mass/Vol] 13.2 g/dL 12.0-15.0 [facility] Blood platelet mean volumeOr dered By: Basilio Flores on 06-12-2022 Platelet mean volume (Bld) [Entitic vol] 10.4 fL 6.2-12.0 [facility] Determination of erythrocyte mean corpuscular volume (MCV)Ordered By: Basilio Flores on 06-12-2022 MCV (RBC) [Entitic vol] 90.5 fL 81-99 [facility] Hematocrit Auto (Bld) [Volum e fraction]Ordered By: Basilio Flores on 06-12-2022 Hematocrit (Bld) [Volume fraction] 41.0 % 37-47 [facility] Laboratory - Chemistry and C hemistry - challengeOrdered By: Basilio Flores on 06-12-2022 ALP [Catalytic activity/Vol] 88 U/L 45-117 [facility] ALT [Catalytic activity/Vol] 20 U/L 13-56 [facility] CO2 [Moles/Vol] 34.0 mmol/L 21.0-32.0 [facility] Globulin (S) [Mass/Vol] 3.7 g/dL 2.2-4.2 [facility] Urea nitrogen/Creatinine [Mass ratio] 15.1 mg/mg 10-20 [facility] Laboratory - Hematology and Cell countsOrdered By: Basilio Flores on 06-12-2022 Erythrocyte distribution width (RBC) [Entitic vol] 42.0 fL 35.1-43.9 [facility] Erythrocyte distribution width (RBC) [Ratio] 12.8 % 11.6-14.6 [facility] MCH (RBC) [Entitic mass] 29.1 pg 27.0-32.0 [facility] MCHC Auto (RBC) [Mass/Vol]Or dered By: Basilio Flores on 06-12-2022 MCHC (RBC) [Mass/Vol] 32.2 g/dL 32-36 [facility] No Panel InformationOrdered By: Basilio Flores on 06-12-2022 Estimated GFR (MDRD) Amer 82 mL/min >60 [facility] Comment on above: GFR Calc Estimated GFR (MDRD) Non-Af Amer 67 mL/min >60 [facility] Comment on above: Non- GFR Calc Vitamin D 25-Hydroxy 49.1 ng/mL [facility] Comment on above: Vitamin D 25(OH) Sta tus Range Deficiency <20 ng/mL (50nmol/L) Insufficiency 20 - 30 ng/mL (50 - 75 nmol/L) Sufficiency 30 - 100 ng/mL (75 - 250 nmol/L) Toxicity >100 ng/mL (>250 nmol/L) Platelets bldOrdered By: August Flores on 06-12-2022 Platelets (Bld) [#/Vol] 188 10*3/uL 150-450 [facility] Serum or plasma albumin serge urement (mass/volume)Ordered By: Basilio Flores on 06-12-2022 Albumin [Mass/Vol] 3.7 g/dL 3.2-5.0 [facility] Serum or plasma albumin/glob ulin mass ratioOrdered By: Basilio Flores on 06-12-2022 Albumin/Globulin [Mass ratio] 1.0 {ratio} 0.9-2.4 [facility] Serum or plasma calcium serge urement (mass/volume)Ordered By: Basilio Flores on 06-12-2022 Calcium [Mass/Vol] 9.5 mg/dL 8.5-10.1 [facility] Serum or plasma creatinine m easurement (mass/volume)Ordered By: Basilio Flores on 06-12-2022 Creatinine [Mass/Vol] 0.86 mg/dL 0.55-1.02 [facility] Comment on above: The validity of the calculated GFR & GFRAA in patients over 70 years has not been determined. Clinical correlation is essential. Serum or plasma urea nitroge n measurement (mass/volume)Ordered By: Basilio Flores on 06-12-2022 Urea nitrogen [Mass/Vol] 13 mg/dL 7-18 [facility] Thin prep Papanicolaou smear with manual screeningOrdered By: Basilio Flores on 06-12-2022 Thin prep Papanicolaou smear with manual screening 18 U/L 15-37 [facility] Thin prep Papanicolaou smear with manual screening 8 5-15 [facility] Whole blood hemoglobin A1c/t otal hemoglobin ratio (mass fraction)Ordered By: Basilio Flores on 06-12-2022 HbA1c (Bld) [Mass fraction] 9.2 % 3.8-5.6 [facility] Comment on above: Normal < 5.7 % Predi abetic 5.7 - 6.4 % Diabetic >or= 6.5 % Please note range changes. Basophil percentageOrdered B y: Donato Sepulveda on 04-17-2022 Chloride [Moles/Vol] 97 mmol/L 98-107 [facility] Glucose [Mass/Vol] 328 mg/dL 74-106 [facility] Comment on above: Glucose result great er than or equal to 200 mg/dLsuggests DIABETES MELLITUS per A.D.A. criteria. Potassium [Moles/Vol] 3.6 mmol/L 3.5-5.1 [facility] Sodium [Moles/Vol] 137 mmol/L 136-145 [facility] Laboratory - Chemistry and C hemistry - challengeOrdered By: Donato Sepulveda on 04-17-2022 CO2 [Moles/Vol] 36.0 mmol/L 21.0-32.0 [facility] Urea nitrogen/Creatinine [Mass ratio] 13.7 mg/mg 10-20 [facility] No Panel InformationOrdered By: Donato Sepulveda on 04-17-2022 Estimated GFR (MDRD) Amer 73 mL/min >60 [facility] Comment on above: GFR Calc Estimated GFR (MDRD) Non-Af Amer 60 mL/min >60 [facility] Comment on above: Non- GFR Calc Serum or plasma calcium serge urement (mass/volume)Ordered By: Donato Sepulveda on 04-17-2022 Calcium [Mass/Vol] 9.5 mg/dL 8.5-10.1 [facility] Serum or plasma creatinine m easurement (mass/volume)Ordered By: Donato Sepulveda on 04-17-2022 Creatinine [Mass/Vol] 0.95 mg/dL 0.55-1.02 [facility] Comment on above: The validity of the calculated GFR & GFRAA in patients over 70 years has not been determined. Clinical correlation is essential. Serum or plasma urea nitroge n measurement (mass/volume)Ordered By: Donato Sepulveda on 04-17-2022 Urea nitrogen [Mass/Vol] 13 mg/dL 7-18 [facility] Thin prep Papanicolaou smear with manual screeningOrdered By: Donato Sepulveda on 04-17-2022 Thin prep Papanicolaou smear with manual screening 4 5-15 [facility] Basophil percentageOrdered B y: Donato Sepulveda on 04-13-2022 Potassium [Moles/Vol] 3.2 mmol/L 3.5-5.1 [facility] Basophil percentageOrdered B y: Basilio Flores on 04-10-2022 Bilirubin [Mass/Vol] 0.50 mg/dL 0.20-1.00 [facility] Comment on above: For patients on eltr ombopag therapy, use of Dimension [place] TBIL is not recommended. Chloride [Moles/Vol] 97 mmol/L 98-107 [facility] Glucose [Mass/Vol] 366 mg/dL 74-106 [facility] Comment on above: Glucose result great er than or equal to 200 mg/dLsuggests DIABETES MELLITUS per A.D.A. criteria. Potassium [Moles/Vol] 3.1 mmol/L 3.5-5.1 [facility] Protein [Mass/Vol] 7.3 g/dL 6.4-8.2 [facility] Sodium [Moles/Vol] 136 mmol/L 136-145 [facility] WBC (Bld) [#/Vol] 6.4 10*3/uL 4.4-11.0 [facility] Blood erythrocytes count (nu mber/volume)Ordered By: Basilio Flores on 04-10-2022 RBC (Bld) [#/Vol] 4.33 10*6/uL 4.2-5.4 [facility] Blood hemoglobin measurement (mass/volume)Ordered By: Basilio Flores on 04-10-2022 Hemoglobin (Bld) [Mass/Vol] 12.7 g/dL 12.0-15.0 [facility] Blood platelet mean volumeOr dered By: Basilio Flores on 04-10-2022 Platelet mean volume (Bld) [Entitic vol] 10.8 fL 6.2-12.0 [facility] Determination of erythrocyte mean corpuscular volume (MCV)Ordered By: Basilio Flores on 04-10-2022 MCV (RBC) [Entitic vol] 91.5 fL 81-99 [facility] Hematocrit Auto (Bld) [Volum e fraction]Ordered By: Basilio Flores on 04-10-2022 Hematocrit (Bld) [Volume fraction] 39.6 % 37-47 [facility] Laboratory - Chemistry and C hemistry - challengeOrdered By: Basilio Flores on 04-10-2022 ALP [Catalytic activity/Vol] 90 U/L 45-117 [facility] ALT [Catalytic activity/Vol] 24 U/L 13-56 [facility] CO2 [Moles/Vol] 37.0 mmol/L 21.0-32.0 [facility] Globulin (S) [Mass/Vol] 4.0 g/dL 2.2-4.2 [facility] Urea nitrogen/Creatinine [Mass ratio] 14.5 mg/mg 10-20 [facility] Laboratory - Hematology and Cell countsOrdered By: Basilio Flores on 04-10-2022 Erythrocyte distribution width (RBC) [Entitic vol] 42.4 fL 35.1-43.9 [facility] Erythrocyte distribution width (RBC) [Ratio] 12.6 % 11.6-14.6 [facility] MCH (RBC) [Entitic mass] 29.3 pg 27.0-32.0 [facility] MCHC Auto (RBC) [Mass/Vol]Or dered By: Basilio Flores on 04-10-2022 MCHC (RBC) [Mass/Vol] 32.1 g/dL 32-36 [facility] No Panel InformationOrdered By: Basilio Flores on 04-10-2022 Estimated GFR (MDRD) Amer 78 mL/min >60 [facility] Comment on above: GFR Calc Estimated GFR (MDRD) Non-Af Amer 64 mL/min >60 [facility] Comment on above: Non- GFR Calc Platelets bldOrdered By: August Flores on 04-10-2022 Platelets (Bld) [#/Vol] 216 10*3/uL 150-450 [facility] Serum or plasma albumin serge urement (mass/volume)Ordered By: Basilio Flores on 04-10-2022 Albumin [Mass/Vol] 3.3 g/dL 3.2-5.0 [facility] Serum or plasma albumin/glob ulin mass ratioOrdered By: Basilio Flores on 04-10-2022 Albumin/Globulin [Mass ratio] 0.8 {ratio} 0.9-2.4 [facility] Serum or plasma calcium serge urement (mass/volume)Ordered By: Basilio Flores on 04-10-2022 Calcium [Mass/Vol] 9.1 mg/dL 8.5-10.1 [facility] Serum or plasma creatinine m easurement (mass/volume)Ordered By: Basilio Flores on 04-10-2022 Creatinine [Mass/Vol] 0.90 mg/dL 0.55-1.02 [facility] Comment on above: The validity of the calculated GFR & GFRAA in patients over 70 years has not been determined. Clinical correlation is essential. Serum or plasma urea nitroge n measurement (mass/volume)Ordered By: Basilio Flores on 04-10-2022 Urea nitrogen [Mass/Vol] 13 mg/dL 7-18 [facility] Thin prep Papanicolaou smear with manual screeningOrdered By: Basilio Flores on 04-10-2022 Thin prep Papanicolaou smear with manual screening 22 U/L 15-37 [facility] Thin prep Papanicolaou smear with manual screening 2 5-15 [facility] No Panel InformationOrdered By: Basilio Flores on 03-06-2022 Vitamin D 25-Hydroxy 57.1 ng/mL [facility] Comment on above: Vitamin D 25(OH) Sta tus Range Deficiency <20 ng/mL (50nmol/L) Insufficiency 20 - 30 ng/mL (50 - 75 nmol/L) Sufficiency 30 - 100 ng/mL (75 - 250 nmol/L) Toxicity >100 ng/mL (>250 nmol/L) Whole blood hemoglobin A1c/t otal hemoglobin ratio (mass fraction)Ordered By: Basilio Flores on 03-06-2022 HbA1c (Bld) [Mass fraction] 7.4 % 3.8-5.6 [facility] Comment on above: Normal < 5.7 % Predi abetic 5.7 - 6.4 % Diabetic >or= 6.5 % Please note range changes. Basophil percentageon 2021 Bilirubin [Mass/Vol] 0.90 mg/dL 0.20-1.00 [facility] Work Phone: Comment on above: For patients on eltr ombopag therapy, use of Dimension [place] TBIL is not recommended. Chloride [Moles/Vol] 102 mmol/L 98-107 [facility] Work Phone: Glucose [Mass/Vol] 198 mg/dL 74-106 [facility] Work Phone: Comment on above: Fasting Glucose resu lt greater than or equal to 126 mg/dL suggests DIABETES MELLITUS per A.D.A. criteria. Potassium [Moles/Vol] 4.3 mmol/L 3.5-5.1 [facility] Work Phone: Protein [Mass/Vol] 7.3 g/dL 6.4-8.2 [facility] Work Phone: Sodium [Moles/Vol] 140 mmol/L 136-145 [facility] Work Phone: WBC (Bld) [#/Vol] 5.8 10*3/uL 4.4-11.0 [facility] Work Phone: Blood erythrocytes count (nu mber/volume)on 02-06-2022 RBC (Bld) [#/Vol] 4.46 10*6/uL 4.2-5.4 [facility] Work Phone: Blood hemoglobin measurement (mass/volume)on 02-06-2022 Hemoglobin (Bld) [Mass/Vol] 13.1 g/dL 12.0-15.0 [facility] Work Phone: Blood platelet mean volumeon 02-06-2022 Platelet mean volume (Bld) [Entitic vol] 10.5 fL 6.2-12.0 [facility] Work Phone: Determination of erythrocyte mean corpuscular volume (MCV)on 02-06-2022 MCV (RBC) [Entitic vol] 93.3 fL 81-99 [facility] Work Phone: Hematocrit Auto (Bld) [Volum e fraction]on 02-06-2022 Hematocrit (Bld) [Volume fraction] 41.6 % 37-47 [facility] Work Phone: Laboratory - Chemistry and C hemistry - challengeon 02-06-2022 ALP [Catalytic activity/Vol] 96 U/L 45-117 [facility] Work Phone: ALT [Catalytic activity/Vol] 22 U/L 13-56 [facility] Work Phone: CO2 [Moles/Vol] 32.0 mmol/L 21.0-32.0 [facility] Work Phone: Globulin (S) [Mass/Vol] 3.7 g/dL 2.2-4.2 [facility] Work Phone: Urea nitrogen/Creatinine [Mass ratio] 20.2 mg/mg 10-20 [facility] Work Phone: Laboratory - Hematology and Cell countson 02-06-2022 Erythrocyte distribution width (RBC) [Entitic vol] 46.5 fL 35.1-43.9 [facility] Work Phone: Erythrocyte distribution width (RBC) [Ratio] 13.5 % 11.6-14.6 [facility] Work Phone: MCH (RBC) [Entitic mass] 29.4 pg 27.0-32.0 [facility] Work Phone: MCHC Auto (RBC) [Mass/Vol]on 02-06-2022 MCHC (RBC) [Mass/Vol] 31.5 g/dL 32-36 [facility] Work Phone: No Panel Informationon 02-06 Estimated GFR (MDRD) Amer 66 mL/min >60 [facility] Work Phone: Comment on above: GFR Calc Estimated GFR (MDRD) Non-Af Amer 54 mL/min >60 [facility] Work Phone: Comment on above: Non- GFR Calc Platelets bldon 02-06-2022 Platelets (Bld) [#/Vol] 176 10*3/uL 150-450 [facility] Work Phone: Serum or plasma albumin serge urement (mass/volume)on 02-06-2022 Albumin [Mass/Vol] 3.6 g/dL 3.2-5.0 [facility] Work Phone: Serum or plasma albumin/glob ulin mass ratioon 02-06-2022 Albumin/Globulin [Mass ratio] 1.0 {ratio} 0.9-2.4 [facility] Work Phone: Serum or plasma calcium serge urement (mass/volume)on 02-06-2022 Calcium [Mass/Vol] 9.5 mg/dL 8.5-10.1 [facility] Work Phone: Serum or plasma creatinine m easurement (mass/volume)on 02-06-2022 Creatinine [Mass/Vol] 1.04 mg/dL 0.55-1.02 [facility] Work Phone: Comment on above: The validity of the calculated GFR & GFRAA in patients over 70 years has not been determined. Clinical correlation is essential. Serum or plasma urea nitroge n measurement (mass/volume)on 02-06-2022 Urea nitrogen [Mass/Vol] 21 mg/dL 7-18 [facility] Work Phone: Thin prep Papanicolaou smear with manual screeningon 02-06-2022 Thin prep Papanicolaou smear with manual screening 20 U/L 15-37 [facility] Work Phone: Thin prep Papanicolaou smear with manual screening 6 5-15 [facility] Work Phone: Basophil percentageon 2021 Bilirubin [Mass/Vol] 0.50 mg/dL 0.20-1.00 [facility] Work Phone: Comment on above: For patients on eltr ombopag therapy, use of Dimension [place] TBIL is not recommended. Chloride [Moles/Vol] 106 mmol/L 98-107 [facility] Work Phone: Glucose [Mass/Vol] 149 mg/dL 74-106 [facility] Work Phone: Comment on above: Fasting Glucose resu lt greater than or equal to 126 mg/dL suggests DIABETES MELLITUS per A.D.A. criteria. Potassium [Moles/Vol] 3.6 mmol/L 3.5-5.1 [facility] [place] Work Phone: Protein [Mass/Vol] 6.7 g/dL 6.4-8.2 [facility] Work Phone: Sodium [Moles/Vol] 142 mmol/L 136-145 [facility] Work Phone: WBC (Bld) [#/Vol] 6.0 10*3/uL 4.4-11.0 [facility] Work Phone: Blood erythrocytes count (nu mber/volume)on 12-05-2021 RBC (Bld) [#/Vol] 4.12 10*6/uL 4.2-5.4 [facility]: Blood hemoglobin measurement (mass/volume)on 12-05-2021 Hemoglobin (Bld) [Mass/Vol] 11.9 g/dL 12.0-15.0 [facility] Work Phone: Blood platelet mean volumeon 12-05-2021 Platelet mean volume (Bld) [Entitic vol] 10.9 fL 6.2-12.0 [facility] Work Phone: Determination of erythrocyte mean corpuscular volume (MCV)on 12-05-2021 MCV (RBC) [Entitic vol] 92.5 fL 81-99 [facility] Work Phone: Hematocrit Auto (Bld) [Volum e fraction]on 12-05-2021 Hematocrit (Bld) [Volume fraction] 38.1 % 37-47 [facility] Work Phone: Laboratory - Chemistry and C hemistry - challengeon 12-05-2021 ALP [Catalytic activity/Vol] 86 U/L 45-117 [facility] Work Phone: ALT [Catalytic activity/Vol] 17 U/L 13-56 [facility] Work Phone: CO2 [Moles/Vol] 34.0 mmol/L 21.0-32.0 [facility] Work Phone: Globulin (S) [Mass/Vol] 3.6 g/dL 2.2-4.2 [facility] Work Phone: Urea nitrogen/Creatinine [Mass ratio] 14.5 mg/mg 10-20 [facility] Work Phone: Laboratory - Hematology and Cell countson 12-05-2021 Erythrocyte distribution width (RBC) [Entitic vol] 45.8 fL 35.1-43.9 [facility] Work Phone: Erythrocyte distribution width (RBC) [Ratio] 13.4 % 11.6-14.6 [facility] Work Phone: MCH (RBC) [Entitic mass] 28.9 pg 27.0-32.0 [facility] Work Phone: MCHC Auto (RBC) [Mass/Vol]on 12-05-2021 MCHC (RBC) [Mass/Vol] 31.2 g/dL 32-36 [facility] Work Phone: No Panel Informationon 12-05 Estimated GFR (MDRD) Amer 78 mL/min >60 [facility] Work Phone: Comment on above: GFR Calc Estimated GFR (MDRD) Non-Af Amer 64 mL/min >60 [facility] Work Phone: Comment on above: Non- GFR Calc Vitamin D 25-Hydroxy 90.8 ng/mL [facility] Work Phone: Comment on above: Vitamin D 25(OH) Sta tus Range Deficiency <20 ng/mL (50nmol/L) Insufficiency 20 - 30 ng/mL (50 - 75 nmol/L) Sufficiency 30 - 100 ng/mL (75 - 250 nmol/L) Toxicity >100 ng/mL (>250 nmol/L) Platelets bldon 12-05-2021 Platelets (Bld) [#/Vol] 162 10*3/uL 150-450 [facility] Work Phone: Serum or plasma albumin serge urement (mass/volume)on 12-05-2021 Albumin [Mass/Vol] 3.1 g/dL 3.2-5.0 [facility] Work Phone: Serum or plasma albumin/glob ulin mass ratioon 12-05-2021 Albumin/Globulin [Mass ratio] 0.9 {ratio} 0.9-2.4 [facility] Work Phone: Serum or plasma calcium serge urement (mass/volume)on 12-05-2021 Calcium [Mass/Vol] 9.3 mg/dL 8.5-10.1 [facility] Work Phone: Serum or plasma creatinine m easurement (mass/volume)on 12-05-2021 Creatinine [Mass/Vol] 0.90 mg/dL 0.55-1.02 [facility] Work Phone: Comment on above: The validity of the calculated GFR & GFRAA in patients over 70 years has not been determined. Clinical correlation is essential. Serum or plasma urea nitroge n measurement (mass/volume)on 12-05-2021 Urea nitrogen [Mass/Vol] 13 mg/dL 7-18 [facility] Work Phone: Thin prep Papanicolaou smear with manual screeningon 12-05-2021 Thin prep Papanicolaou smear with manual screening 18 U/L 15-37 [facility] Work Phone: Thin prep Papanicolaou smear with manual screening 2 5-15 [facility] Work Phone: Whole blood hemoglobin A1c/t otal hemoglobin ratio (mass fraction)on 12-05-2021 HbA1c (Bld) [Mass fraction] 7.4 % 3.8-5.6 [facility] Work Phone: Comment on above: Normal < 5.7 % Predi abetic 5.7 - 6.4 % Diabetic >or= 6.5 % Please note range changes. Whole blood hemoglobin A1c/t otal hemoglobin ratio (mass fraction)on 11-14-2021 HbA1c (Bld) [Mass fraction] 8.5 % 3.8-5.6 [facility] Work Phone: Comment on above: Normal < 5.7 % Predi abetic 5.7 - 6.4 % Diabetic >or= 6.5 % Please note range changes. Whole blood hemoglobin A1c/t otal hemoglobin ratio (mass fraction)on 10-17-2021 HbA1c (Bld) [Mass fraction] 7.7 % 3.8-5.6 [facility] Work Phone: Comment on above: Normal < 5.7 % Predi abetic 5.7 - 6.4 % Diabetic >or= 6.5 % Please note range changes. Basophil percentageon 2021 Bilirubin [Mass/Vol] 0.40 mg/dL 0.20-1.00 [facility] Work Phone: Comment on above: For patients on eltr ombopag therapy, use of Dimension [place] TBIL is not recommended. Chloride [Moles/Vol] 105 mmol/L 98-107 [facility] Work Phone: Cholesterol [Mass/Vol] 130 mg/dL <200 [facility] Work Phone: Comment on above: <200 mg/dL Desirable 200-240 mg/dL Borderline >240 mg/dL High Risk Glucose [Mass/Vol] 127 mg/dL 74-106 [facility] Work Phone: Comment on above: Fasting Glucose resu lt greater than or equal to 126 mg/dL suggests DIABETES MELLITUS per A.D.A. criteria. Potassium [Moles/Vol] 3.7 mmol/L 3.5-5.1 [facility] Work Phone: Protein [Mass/Vol] 6.4 g/dL 6.4-8.2 [facility] Work Phone: Sodium [Moles/Vol] 145 mmol/L 136-145 [facility] Work Phone: Triglyceride [Mass/Vol] 77 mg/dL <199 [facility] Work Phone: Comment on above: The [...] 10-05-2021 RBC (Bld) [#/Vol] 4.01 10*6/uL 4.2-5.4 [facility] Work Phone: Blood hemoglobin measurement (mass/volume)on 10-05-2021 Hemoglobin (Bld) [Mass/Vol] 11.5 g/dL 12.0-15.0 [facility] Work Phone: Blood platelet mean volumeon 10-05-2021 Platelet mean volume (Bld) [Entitic vol] 11.3 fL 6.2-12.0 [facility] Work Phone: Determination of erythrocyte mean corpuscular volume (MCV)on 10-05-2021 MCV (RBC) [Entitic vol] 93.3 fL 81-99 [facility] Work Phone: Hematocrit Auto (Bld) [Volum e fraction]on 10-05-2021 Hematocrit (Bld) [Volume fraction] 37.4 % 37-47 [facility] Work Phone: Laboratory - Chemistry and C hemistry - challengeon 10-05-2021 ALP [Catalytic activity/Vol] 80 U/L 45-117 [facility] Work Phone: ALT [Catalytic activity/Vol] 16 U/L 13-56 [facility] Work Phone: CO2 [Moles/Vol] 29.0 mmol/L 21.0-32.0 [facility] Work Phone: Globulin (S) [Mass/Vol] 3.1 g/dL 2.2-4.2 [facility] Work Phone: Urea nitrogen/Creatinine [Mass ratio] 17.1 mg/mg 10-20 [facility] Work Phone: Laboratory - Hematology and Cell countson 10-05-2021 Erythrocyte distribution width (RBC) [Entitic vol] 44.9 fL 35.1-43.9 [facility] Work Phone: Erythrocyte distribution width (RBC) [Ratio] 13.2 % 11.6-14.6 [facility] Work Phone: MCH (RBC) [Entitic mass] 28.7 pg 27.0-32.0 [facility] Work Phone: MCHC Auto (RBC) [Mass/Vol]on 10-05-2021 MCHC (RBC) [Mass/Vol] 30.7 g/dL 32-36 [facility] Work Phone: No Panel Informationon 10-05 Estimated GFR (MDRD) Amer 65 mL/min >60 [facility] Work Phone: Comment on above: GFR Calc Estimated GFR (MDRD) Non-Af Amer 54 mL/min >60 [facility] Work Phone: Comment on above: Non- GFR Calc Platelets bldon 10-05-2021 Platelets (Bld) [#/Vol] 164 10*3/uL 150-450 [facility] Work Phone: Serum or plasma albumin serge urement (mass/volume)on 10-05-2021 Albumin [Mass/Vol] 3.3 g/dL 3.2-5.0 [facility] Work Phone: Serum or plasma albumin/glob ulin mass ratioon 10-05-2021 Albumin/Globulin [Mass ratio] 1.1 {ratio} 0.9-2.4 [facility] Work Phone: Serum or plasma calcium serge urement (mass/volume)on 10-05-2021 Calcium [Mass/Vol] 8.8 mg/dL 8.5-10.1 [facility] Work Phone: Serum or plasma cholesterol in HDL measurement (mass/volume)on 10-05-2021 Cholesterol in HDL [Mass/Vol] 47 mg/dL >40 [facility] Work Phone: Comment on above: The drugs N-Acetylcy steine and Metamizole may falsely depress this assay. Reference Range HDL <40 mg/dL Low HDL Cholesterol HDL >or= 60 mg/dL High HDL Cholesterol Serum or plasma cholesterol in VLDL measurement (mass/volume)on 10-05-2021 Cholesterol in VLDL [Mass/Vol] 15 mg/dL 5-40 [facility] Work Phone: Serum or plasma creatinine m easurement (mass/volume)on 10-05-2021 Creatinine [Mass/Vol] 1.05 mg/dL 0.55-1.02 [facility] Work Phone: Comment on above: The validity of the calculated GFR & GFRAA in patients over 70 years has not been determined. Clinical correlation is essential. Serum or plasma low density lipoprotein (LDL) cholesterol measurement (mass/volume)on 10-05-2021 Cholesterol in LDL [Mass/Vol] 68 mg/dL 0-130 [facility] Work Phone: Serum or plasma urea nitroge n measurement (mass/volume)on 10-05-2021 Urea nitrogen [Mass/Vol] 18 mg/dL 7-18 [facility] Work Phone: Thin prep Papanicolaou smear with manual screeningon 10-05-2021 Thin prep Papanicolaou smear with manual screening 18 U/L 15-37 [facility] Work Phone: Thin prep Papanicolaou smear with manual screening 11 5-15 [facility] Work Phone: No Panel Informationon 09-05 Vitamin D 25-Hydroxy 44.4 ng/mL [facility] Work Phone: Comment on above: Vitamin D 25(OH) Sta tus Range Deficiency <20 ng/mL (50nmol/L) Insufficiency 20 - 30 ng/mL (50 - 75 nmol/L) Sufficiency 30 - 100 ng/mL (75 - 250 nmol/L) Toxicity >100 ng/mL (>250 nmol/L) Whole blood hemoglobin A1c/t otal hemoglobin ratio (mass fraction)on 09-05-2021 HbA1c (Bld) [Mass fraction] 8.3 % 3.8-5.6 [facility] Work Phone: Comment on above: Normal < 5.7 % Predi abetic 5.7 - 6.4 % Diabetic >or= 6.5 % Please note range changes. Basophil percentageon 2021 Bilirubin [Mass/Vol] 0.40 mg/dL 0.20-1.00 [facility] Work Phone: Comment on above: For patients on eltr ombopag therapy, use of Dimension [place] TBIL is not recommended. Chloride [Moles/Vol] 102 mmol/L 98-107 [facility] Work Phone: Glucose [Mass/Vol] 358 mg/dL 74-106 [facility] Work Phone: Comment on above: Glucose result great er than or equal to 200 mg/dLsuggests DIABETES MELLITUS per A.D.A. criteria. Potassium [Moles/Vol] 3.3 mmol/L 3.5-5.1 [facility] Work Phone: Protein [Mass/Vol] 6.8 g/dL 6.4-8.2 [facility] Work Phone: Sodium [Moles/Vol] 139 mmol/L 136-145 [facility] Work Phone: WBC (Bld) [#/Vol] 5.6 10*3/uL 4.4-11.0 [facility] Work Phone: Blood erythrocytes count (nu mber/volume)on 08-08-2021 RBC (Bld) [#/Vol] 3.99 10*6/uL 4.2-5.4 [facility] Work Phone: Blood hemoglobin measurement (mass/volume)on 08-08-2021 Hemoglobin (Bld) [Mass/Vol] 11.5 g/dL 12.0-15.0 [facility] Work Phone: Blood platelet mean volumeon 08-08-2021 Platelet mean volume (Bld) [Entitic vol] 11.0 fL 6.2-12.0 [facility] Work Phone: Determination of erythrocyte mean corpuscular volume (MCV)on 08-08-2021 MCV (RBC) [Entitic vol] 91.7 fL 81-99 [facility] Work Phone: Hematocrit Auto (Bld) [Volum e fraction]on 08-08-2021 Hematocrit (Bld) [Volume fraction] 36.6 % 37-47 [facility] Work Phone: Laboratory - Chemistry and C hemistry - challengeon 08-08-2021 ALP [Catalytic activity/Vol] 85 U/L 45-117 [facility] Work Phone: ALT [Catalytic activity/Vol] 17 U/L 13-56 [facility] Work Phone: CO2 [Moles/Vol] 33.0 mmol/L 21.0-32.0 [facility] Work Phone: Globulin (S) [Mass/Vol] 3.8 g/dL 2.2-4.2 [facility] Work Phone: Urea nitrogen/Creatinine [Mass ratio] 12.7 mg/mg 10-20 [facility] Work Phone: Laboratory - Hematology and Cell countson 08-08-2021 Erythrocyte distribution width (RBC) [Entitic vol] 43.0 fL 35.1-43.9 [facility] Work Phone: Erythrocyte distribution width (RBC) [Ratio] 12.7 % 11.6-14.6 [facility] Work Phone: MCH (RBC) [Entitic mass] 28.8 pg 27.0-32.0 [facility] Work Phone: MCHC Auto (RBC) [Mass/Vol]on 08-08-2021 MCHC (RBC) [Mass/Vol] 31.4 g/dL 32-36 [facility] Work Phone: No Panel Informationon 08-08 Estimated GFR (MDRD) Amer 67 mL/min >60 [facility] Work Phone: Comment on above: GFR Calc Estimated GFR (MDRD) Non-Af Amer 56 mL/min >60 [facility] Work Phone: Comment on above: Non- GFR Calc Platelets bldon 08-08-2021 Platelets (Bld) [#/Vol] 155 10*3/uL 150-450 [facility] Work Phone: Serum or plasma albumin serge urement (mass/volume)on 08-08-2021 Albumin [Mass/Vol] 3.0 g/dL 3.2-5.0 [facility] Work Phone: Serum or plasma albumin/glob ulin mass ratioon 08-08-2021 Albumin/Globulin [Mass ratio] 0.8 {ratio} 0.9-2.4 [facility] Work Phone: Serum or plasma calcium serge urement (mass/volume)on 08-08-2021 Calcium [Mass/Vol] 9.3 mg/dL 8.5-10.1 [facility] Work Phone: Serum or plasma creatinine m easurement (mass/volume)on 08-08-2021 Creatinine [Mass/Vol] 1.02 mg/dL 0.55-1.02 [facility] Work Phone: Comment on above: The validity of the calculated GFR & GFRAA in patients over 70 years has not been determined. Clinical correlation is essential. Serum or plasma urea nitroge n measurement (mass/volume)on 08-08-2021 Urea nitrogen [Mass/Vol] 13 mg/dL 7-18 [facility] Work Phone: Thin prep Papanicolaou smear with manual screeningon 08-08-2021 Thin prep Papanicolaou smear with manual screening 15 U/L 15-37 [facility] Work Phone: Thin prep Papanicolaou smear with manual screening 4 5-15 [facility] Work Phone: Basophil percentageon 2021 Basophil percentage 3.6 mg/dL 2.5-4.9 [facility] Work Phone: Chloride [Moles/Vol] 99 mmol/L 98-107 [facility] Work Phone: Glucose [Mass/Vol] 311 mg/dL 74-106 [facility] Work Phone: Comment on above: Glucose result great er than or equal to 200 mg/dLsuggests DIABETES MELLITUS per A.D.A. criteria. Potassium [Moles/Vol] 3.7 mmol/L 3.5-5.1 [facility] Work Phone: Sodium [Moles/Vol] 139 mmol/L 136-145 [facility] Work Phone: WBC (Bld) [#/Vol] 6.1 10*3/uL 4.4-11.0 [facility] Work Phone: Blood erythrocytes count (nu mber/volume)on 07-12-2021 RBC (Bld) [#/Vol] 4.40 10*6/uL 4.2-5.4 [facility] Work Phone: Blood hemoglobin measurement (mass/volume)on 07-12-2021 Hemoglobin (Bld) [Mass/Vol] 12.5 g/dL 12.0-15.0 [facility] Work Phone: Blood platelet mean volumeon 07-12-2021 Platelet mean volume (Bld) [Entitic vol] 11.0 fL 6.2-12.0 [facility] Work Phone: Determination of erythrocyte mean corpuscular volume (MCV)on 07-12-2021 MCV (RBC) [Entitic vol] 90.7 fL 81-99 [facility] Work Phone: Hematocrit Auto (Bld) [Volum e fraction]on 07-12-2021 Hematocrit (Bld) [Volume fraction] 39.9 % 37-47 [facility] Work Phone: Laboratory - Chemistry and C hemistry - challengeon 07-12-2021 CO2 [Moles/Vol] 34.0 mmol/L 21.0-32.0 [facility] Work Phone: Urea nitrogen/Creatinine [Mass ratio] 14.2 mg/mg 10-20 [facility] Work Phone: Laboratory - Hematology and Cell countson 07-12-2021 Erythrocyte distribution width (RBC) [Entitic vol] 42.3 fL 35.1-43.9 [facility] Work Phone: Erythrocyte distribution width (RBC) [Ratio] 12.8 % 11.6-14.6 [facility] Work Phone: MCH (RBC) [Entitic mass] 28.4 pg 27.0-32.0 [facility] Work Phone: MCHC Auto (RBC) [Mass/Vol]on 07-12-2021 MCHC (RBC) [Mass/Vol] 31.3 g/dL 32-36 [facility] Work Phone: No Panel Informationon 07-12 Estimated GFR (MDRD) Amer 64 mL/min >60 [facility] Work Phone: Comment on above: GFR Calc Estimated GFR (MDRD) Non-Af Amer 53 mL/min >60 [facility] Work Phone: Comment on above: Non- GFR Calc Parathyroid Hormone (Intact) 38.0 pg/mL 18.4-80.1 [facility] Work Phone: Vitamin D 25-Hydroxy 10.0 ng/mL [facility] Work Phone: Comment on above: Vitamin D 25(OH) Sta tus Range Deficiency <20 ng/mL (50nmol/L) Insufficiency 20 - 30 ng/mL (50 - 75 nmol/L) Sufficiency 30 - 100 ng/mL (75 - 250 nmol/L) Toxicity >100 ng/mL (>250 nmol/L) Platelets bldon 07-12-2021 Platelets (Bld) [#/Vol] 188 10*3/uL 150-450 [facility] Work Phone: Serum or plasma albumin serge urement (mass/volume)on 07-12-2021 Albumin [Mass/Vol] 3.2 g/dL 3.2-5.0 [facility] Work Phone: Serum or plasma calcium serge urement (mass/volume)on 07-12-2021 Calcium [Mass/Vol] 9.8 mg/dL 8.5-10.1 [facility] Work Phone: Serum or plasma creatinine m easurement (mass/volume)on 07-12-2021 Creatinine [Mass/Vol] 1.06 mg/dL 0.55-1.02 [facility] Work Phone: Comment on above: The validity of the calculated GFR & GFRAA in patients over 70 years has not been determined. Clinical correlation is essential. Serum or plasma urea nitroge n measurement (mass/volume)on 07-12-2021 Urea nitrogen [Mass/Vol] 15 mg/dL 7-18 [facility] Work Phone: Clinical Summary: HMSPatient IDon 03-16-2019 OOP [facility] Work Phone: Office Visit: New - 1st visi t with practice, Rm: PT2on 03-16-2019 NEGATED: Highlighted rowMRI (magnetic resonance imaging) history of the cervical spine on 11/24/2018 at [facility] Work Phone: NEGATED: Highlighted rowTobacco smoking status NHIS Tobacco smoking status NHIS [facility] Work Phone: Vital Signs Date Time Vital Sign Value Performing Clinician Facility 02-19-2025 09:44-0400 Body height 162.[address] Donato Sepulveda MD Work Phone: [facility] 10-20-2024 18:22-0400 Diastolic blood pressure 78 mm[Hg] Dr. Basilio Flores MD Work Phone: 3(624)188-933295 [place] [address] 10-20-2024 18:22-0400 Heart rate 72 /min Dr. Basilio Flores MD Work Phone: 7(798)718-885595 [place] [address] 10-20-2024 18:22-0400 Respiratory rate 18 /min Dr. Basilio Flores MD Work Phone: 6(027)334-996295 [place] [address] 10-20-2024 18:22-0400 SaO2% (BldA) [Mass fraction] 94 % Dr. Basilio Flores MD Work Phone: 3(657)797-260095 [place] [address] 10-20-2024 18:22-0400 Systolic blood pressure 164 mm[Hg] Dr. Basilio Flores MD Work Phone: 3(760)060-870195 [place] [address] 10-20-2024 12:21-0400 Body temperature 97.9 [degF] Dr. Basilio Flores MD Work Phone: 7(312)889-505695 [place] [address] 10-20-2024 03:45-0400 Body mass index (BMI) [Ratio] 19.7 kg/m2 Dr. Basilio Flores MD Work Phone: 7(901)894-900895 [place] [address] 10-20-2024 03:45-0400 Body weight 52.[address] Basilio Flores MD Work Phone: 7(482)658-298595 [place] [address] 10-19-2024 10:15-0400 Body height 162.[address] Basilio Flores MD Work Phone: 4(548)977-477595 [place] [address] 10-18-2024 21:51-0400 Body temperature 97.8 [degF] Dr. Basilio Flores MD Work Phone: 5(962)622-916595 [place] [address] 10-18-2024 21:51-0400 Diastolic blood pressure 75 mm[Hg] Dr. Basilio Flores MD Work Phone: 4(438)351-156595 [place] [address] 10-18-2024 21:51-0400 Heart rate 83 /min Dr. Basilio Flores MD Work Phone: 7(601)093-238595 [place] [address] 10-18-2024 21:51-0400 Respiratory rate 16 /min Dr. Basilio Flores MD Work Phone: 4(965)221-065295 [place] [address] 10-18-2024 21:51-0400 SaO2% (BldA) [Mass fraction] 94 % Dr. Basilio Flores MD Work Phone: 6(061)221-281195 [place] [address] 10-18-2024 21:51-0400 Systolic blood pressure 169 mm[Hg] Dr. Basilio Flores MD Work Phone: 9(880)735-484695 [place] [address] 10-18-2024 16:46-0400 Body height 157.[address] Basilio Flores MD Work Phone: 2(005)777-031095 [place] [address] 10-18-2024 16:46-0400 Body mass index (BMI) [Ratio] 22.6 kg/m2 Dr. Basilio Flores MD Work Phone: 6(091)402-592395 [place] [address] 10-18-2024 16:46-0400 Body weight 56.[address] Basilio Flores MD Work Phone: 2(508)906-602395 [place] [address] 08-24-2024 09:43-0400 Body temperature 98.9 [degF] Dr. Basilio Flores MD Work Phone: 3(003)526-087995 [place] [address] 08-24-2024 09:43-0400 Diastolic blood pressure 69 mm[Hg] Dr. Basilio Flores MD Work Phone: 3(452)752-370195 [place] [address] 08-24-2024 09:43-0400 Heart rate 72 /min Dr. Basilio Flores MD Work Phone: 3(394)699-301795 [place] [address] 08-24-2024 09:43-0400 Respiratory rate 16 /min Dr. Basilio Flores MD Work Phone: 9(788)260-972295 [place] [address] 08-24-2024 09:43-0400 SaO2% (BldA) [Mass fraction] 98 % Dr. Basilio Flores MD Work Phone: 4(928)545-813295 [place] [address] 08-24-2024 09:43-0400 Systolic blood pressure 149 mm[Hg] Dr. Basilio Flores MD Work Phone: 4(998)374-714895 [place] [address] 08-24-2024 08:47-0400 Body height 157.[address] Basilio Flores MD Work Phone: 1(041)807-857195 [place] [address] 08-24-2024 08:47-0400 Body mass index (BMI) [Ratio] 22.1 kg/m2 Dr. Basilio Flores MD Work Phone: 7(003)328-784695 [place] [address] 08-24-2024 08:47-0400 Body weight [address] Basilio Flores MD Work Phone: 1(323)785-867295 [place] [address] 06-08-2023 09:40-0500 Diastolic blood pressure 77 mm[Hg] Dr. Basilio Flores Work Phone: 8(808)799-328895 [place] [address] 06-08-2023 09:40-0500 Heart rate 82 /min Dr. Basilio Flores Work Phone: 0(521)468-414595 [place] [address] 06-08-2023 09:40-0500 Respiratory rate 16 /min Dr. Basilio Flores Work Phone: 2(300)361-982395 [place] [address] 06-08-2023 09:40-0500 SaO2% (BldA) [Mass fraction] 98 % Dr. Basilio Flores Work Phone: 1(990)139-284095 [place] [address] 06-08-2023 09:40-0500 Systolic blood pressure 135 mm[Hg] Dr. Basilio Flores Work Phone: 7(431)144-286095 [place] [address] 06-08-2023 08:04-0500 Body height 157.[address] Basilio Flores Work Phone: 2(118)215-327695 [place] [address] 06-08-2023 08:04-0500 Body mass index (BMI) [Ratio] 25.7 kg/m2 Dr. Basilio Flores Work Phone: 1(406)597-382695 [place] [address] 06-08-2023 08:04-0500 Body temperature 97.9 [degF] Dr. Basilio Flores Work Phone: 1(745)807-156395 [place] [address] 06-08-2023 08:04-0500 Body weight 63.[address] Basilio Flores Work Phone: 9(076)102-037195 [place] [address] 06-05-2023 08:33-0500 Diastolic blood pressure 67 mm[Hg] Dr. Basilio Flores Work Phone: 9(366)718-466395 [place] [address] 06-05-2023 08:33-0500 Heart rate 81 /min Dr. Basilio Flores Work Phone: 2(178)016-507995 [place] [address] 06-05-2023 08:33-0500 Respiratory rate 16 /min Dr. Basilio Flores Work Phone: 8(838)900-320295 [place] [address] 06-05-2023 08:33-0500 SaO2% (BldA) [Mass fraction] 93 % Dr. Basilio Flores Work Phone: 8(386)281-118295 [place] [address] 06-05-2023 08:33-0500 Systolic blood pressure 142 mm[Hg] Dr. Basilio Flores Work Phone: 9(598)686-268495 [place] [address] 06-05-2023 03:42-0500 Body height 162.[address] Basilio Flores Work Phone: 5(408)718-738295 [place] [address] 06-05-2023 03:42-0500 Body mass index (BMI) [Ratio] 23.9 kg/m2 Dr. Basilio Flores Work Phone: 9(244)688-204495 [place] [address] 06-05-2023 03:42-0500 Body temperature 97.6 [degF] Dr. Basilio Flores Work Phone: 0(691)593-379195 [place] [address] 06-05-2023 03:42-0500 Body weight 63.[address] Basilio Flores Work Phone: 7(079)589-889895 [place] [address] NEGATED: Highlighted [id number] 14:06-0500 BMI (Body Mass Index) 44.85 kg/m2 Arcenio Moreira AT [facility] Work Phone: NEGATED: Highlighted [id number] 14:06-0500 Body weight 102.06 kg Arcenio Moreira AT [facility] Work Phone: NEGATED: Highlighted [id number] 14:06-0500 Body weight 102 kg Arcenio Moreira AT [facility] Work Phone: NEGATED: Highlighted [id number] 14:06-0500 BP Diastolic 68 mm[Hg] Arcenio Moreira AT [facility] Work Phone: NEGATED: Highlighted [id number] 14:06-0500 BP Systolic 124 mm[Hg] Arcenio Moreira AT [facility] Work Phone: NEGATED: Highlighted [id number] 14:06-0500 Height 151.13 cm Arcenio Moreira AT [facility] Work Phone: NEGATED: Highlighted [id number] 14:06-0500 Height 151 cm Arcenio Moreira AT [facility] Work Phone: NEGATED: Highlighted [id number] 14:06-0500 Pulse (Heart Rate) 101 /min Arcenio Moreira AT [facility] Work Phone: Encounters Encounter Date Encounter Type Care Provider Facility Start: 03-09-2025 ambulatory Donato COLVIN Fa cility:[facility] Start: 03-02-2025 End: 03-02-2025 ambulatory Debora Schneider ACCOUNTING MANAGER Facility[place] Start: 02-17-2025 ambulatory Donato COLVIN Fa cility:[facility] Start: 02-17-2025 Registered Referred Donato Sepulveda MD [facility] Start: 02-09-2025 ambulatory Donato COLVIN Fa cility:[facility] Start: 02-09-2025 Registered Referred Donato Sepulveda MD -[facility] Start: 02-08-2025 End: 02-08-2025 ambulatory Debora Schneider NP Facility:[facility] Start: 01-26-2025 End: 01-26-[address] Donato Sepulveda MD Work Phone: [facility] Start: 01-26-2025 End: 01-26-2025 Patient encounter procedure Debora Schneider ACCOUNTING MANAGER- -[facility] [place] Work Phone: Start: 01-12-2025 End: 01-12-[address] Donato Sepulveda MD Work Phone: [facility] Start: 01-12-2025 End: 01-12-[address] Donato Sepulveda MD -[facility] Work Phone: Start: 12-30-2024 ambulatory Donato Sepulveda OLS Fa cility:[facility] Start: 12-30-2024 Registered Referred Donato Sepulveda MD [facility] Start: 12-29-2024 End: 12-29-[address] Donato Sepulveda MD Work Phone: [facility] Start: 12-29-2024 End: 12-29-2024 Departed Referred Donato Sepulveda MD [facility] Start: 12-29-2024 Registered Referred Donato Sepulveda MD [facility] Start: 12-29-2024 End: 12-29-2024 ambulatory Donato Sepulveda Facility:[facility] Start: 12-08-2024 Registered Referred Donato Sepulveda MD [facility] Start: 12-08-2024 End: 12-08-2024 ambulatory Efbalaji Sepulveda Facility:[facility] Start: 12-04-2024 End: 12-04-[address] Donato Sepulveda MD Work Phone: [facility] Start: 12-04-2024 End: 12-04-2024 Patient encounter procedure Debora Schneider ACCOUNTING MANAGER-C -[facility] Work Phone: Start: 11-17-2024 End: 11-17-[address] Donato Sepulveda MD Work Phone: [facility] Start: 11-17-2024 End: 11-17-2024 Departed Referred Donato Sepulveda MD [facility] Start: 11-17-2024 Registered Referred Donato Sepulveda MD [facility] Start: 11-17-2024 End: 11-17-2024 ambulatory Donato Sepulveda Facility:[facility] Start: 11-10-2024 End: 11-10-[address] Armando Rich MD Work Phone: -[facility] Start: 11-10-2024 End: 11-10-[address] Donato Sepulveda MD -[facility] Work Phone: Start: 10-21-2024 End: 10-21-[address] 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 Work Phone: Start: 10-20-2024 Non-patient / Non-visit Dr. Yadi Lam MD -[facility] Work Phone: Start: 10-19-2024 Non-patient / Non-visit Dr. Yadi Lam MD -[facility] Work Phone: Start: 10-18-2024 ambulatory Anali Coello Facility:[facility] Start: 10-18-2024 End: 10-20-2024 Evaluation and management of inpatient Dr. Anali Coello DO -Progressive [facility] Unit Work Phone: Start: 10-06-2024 ambulatory Donato Rodrigues cility:[facility] Start: 10-06-2024 Registered Referred Donato Sepulveda MD -[facility] Start: 09-15-2024 End: 09-15-[address] Donato Sepulveda MD Work Phone: [facility] Start: 09-15-2024 End: 09-15-[address] Donato Sepulveda MD -[facility] Work Phone: Start: 09-08-2024 End: 09-08-[address] Basilio Flores MD Work Phone: [facility] Work Phone: Start: 09-08-2024 End: 09-08-2024 [facility] Start: 09-08-2024 [facility] Start: 09-08-2024 End: 09-08-2024 ambulatory Donato COLVIN Facility:[facility] Start: 08-25-2024 End: 08-25-[address] Basilio Flores MD Work Phone: [facility] Work Phone: Start: 08-25-2024 End: 08-25-2024 [facility] Start: 08-24-2024 End: 08-24-2024 Admission to same day surgery center Dr. Armando Rich MD -[facility] Start: 08-24-2024 End: 08-25-[address] Basilio Flores MD Work Phone: [facility] Work Phone: Start: 08-17-2024 End: 08-17-2024 ambulatory Debora Schneider NP Facility:[facility] Start: 08-17-2024 End: 08-17-2024 Patient encounter procedure Debora Schneider ACCOUNTING MANAGER- -[facility] Work Phone: Start: 07-15-2024 End: 07-15-[address] Basilio Flores MD Work Phone: [facility] Work Phone: Start: 07-15-2024 End: 07-15-2024 [facility] Start: 07-14-2024 End: 07-14-[address] Donato Sepulveda MD -[facility] Work Phone: Start: 07-14-2024 End: 07-15-[address] Basilio Flores MD Work Phone: [facility] Work Phone: Start: 07-14-2024 End: 07-14-2024 [facility] Start: 07-14-2024 [facility] Start: 07-14-2024 End: 07-14-2024 ambulatory Basilio Flores Facility:[facility] Start: 06-26-2024 End: 06-26-2024 ambulatory Basilio Flores Facility:[facility] Start: 06-26-2024 End: 06-26-2024 [facility] Start: 06-15-2024 ambulatory Basilio Flores Facility: [facility] Start: 06-15-2024 [facility] Start: 06-09-2024 ambulatory Basilio Flores Facility: [facility] Start: 06-09-2024 [facility] Start: 06-02-2024 End: 06-02-2024 [facility] Start: 06-01-2024 End: 06-02-2024 ambulatory Basilio Flores Facility:[facility] Start: 06-01-2024 End: 06-01-2024 [facility] Start: 05-19-2024 End: 05-19-2024 ambulatory Basilio Flores Facility:[facility] Start: 05-19-2024 End: 05-19-[address] Donato Sepulveda MD -[facility] Work Phone: Start: 04-21-2024 ambulatory Basilio Flores Facility: [facility] Start: 04-21-2024 [facility] Start: 04-07-2024 End: 04-07-2024 ambulatory Basilio Flores Facility:[facility] Start: 04-07-2024 End: 04-07-2024 ambulatory Basilio Flores Facility:[facility] Start: 08-06-2023 End: 08-06-[address] Basilio Flores Work Phone: [facility] Work Phone: Start: 08-06-2023 End: 08-06-[address] Basilio Flores Work Phone: [facility] Start: 06-11-2023 End: 06-11-[address] Basilio Flores Work Phone: [facility] Work Phone: Start: 06-11-2023 End: 06-11-[address] Basilio Flores Work Phone: [facility] Start: 06-08-2023 End: 06-08-2023 Emergency department patient visit Dr. Basilio Flores Work Phone: [facility] Work Phone: Start: 06-05-2023 End: 06-05-[address] Basilio Flores Work Phone: [facility] Work Phone: Start: 06-05-2023 End: 06-05-2023 Emergency department patient visit Dr. Basilio Flores Work Phone: [facility] Work Phone: Start: 05-28-2023 End: 05-28-[address] Basilio Flores Work Phone: [facility] Work Phone: Start: 05-15-2023 End: 05-15-[address] Basilio Flores Work Phone: [facility] Work Phone: Start: 04-24-2023 End: 04-24-[address] Basilio Flores Work Phone: [facility] Work Phone: Start: 04-23-2023 End: 04-23-[address] Basilio Flores Work Phone: [facility] Work Phone: Start: 04-23-2023 End: 04-23-[address] Basilio Flores Work Phone: [facility] Start: 04-23-[address] Basilio avendano Work Phone: [facility] Start: 04-19-2023 End: 04-19-[address] Basilio Flores Work Phone: [facility] Work Phone: Start: 04-19-2023 End: 04-19-[address] Basilio Flores Work Phone: [facility] Start: 04-19-[address] Basilio avendano Work Phone: [facility] Start: 04-09-2023 End: 04-09-[address] Basilio Flores Work Phone: [phone] [place] [address] Work Phone: Start: 04-09-2023 End: 04-09-[address] Basilio Flores Work Phone: [facility] Start: 03-26-2023 End: 03-26-[address] Basilio Flores Work Phone: [facility] Work Phone: Start: 03-13-2023 End: 03-13-[address] Basilio Flores Work Phone: [facility] Work Phone: Start: 03-12-2023 End: 03-12-[address] Basilio Flores Work Phone: [facility] Start: 03-07-2023 End: 03-07-[address] Basilio Flores Work Phone: [facility] Work Phone: Start: 02-05-2023 End: 02-05-[address] Basilio Flores Work Phone: [facility] Start: 02-04-2023 End: 02-04-[address] Basilio Flores Work Phone: [facility] Work Phone: Start: 01-30-2023 End: 01-30-[address] Basilio Flores Work Phone: [facility] Work Phone: Start: 01-22-2023 End: 01-22-[address] Basilio Flores Work Phone: [facility] Work Phone: Start: 01-17-2023 End: 01-17-[address] Basilio Flores Work Phone: [facility] Work Phone: Start: 01-01-2023 End: 01-01-[address] Basilio Flores Work Phone: [facility] Work Phone: Start: 12-07-2022 End: 12-07-[address] Basilio Flores Work Phone: [facility] Work Phone: Start: 12-07-2022 End: 12-07-[address] Basilio Flores Work Phone: [facility] Start: 12-04-2022 End: 12-04-[address] Basilio Flores Work Phone: [facility] Work Phone: Start: 12-04-2022 End: 12-04-[address] Basilio Flores Work Phone: [facility] Start: 12-04-[address] Basilio avendano Work Phone: [facility] Start: 11-21-2022 End: 11-21-[address] Basilio Flores Work Phone: [facility] Work Phone: Start: 11-21-2022 End: 11-21-[address] Basilio Flores Work Phone: [facility] Start: 11-21-[address] Basilio avendano Work Phone: [facility] Start: 11-20-2022 End: 11-20-[address] Basilio Flores Work Phone: [facility] Work Phone: Start: 10-31-2022 End: 10-31-[address] Basilio Flores Work Phone: [facility] Work Phone: Start: 10-09-2022 End: 10-09-[address] Basilio Flores Work Phone: [facility] Work Phone: Start: 10-09-2022 End: 10-09-[address] Basilio Flores Work Phone: [facility] Start: 10-09-[address] Basilio avendano Work Phone: [facility] Start: 10-05-2022 End: 10-05-[address] Basilio Flores Work Phone: [facility] Work Phone: Start: 10-05-2022 End: 10-05-[address] Basilio Flores Work Phone: [facility] Start: 10-05-[address] Basilio avendano Work Phone: [facility] Start: 10-04-2022 End: 10-04-[address] Basilio Flores Work Phone: [phone] [place] [address] Start: 10-04-[address] Basilio avendano Work Phone: [phone] [place] [address] Start: 09-25-2022 End: 09-25-[address] Basilio Flores Work Phone: [facility] Work Phone: Start: 09-04-2022 End: 09-04-[address] Basilio Flores Work Phone: [phone] [place] [address] Work Phone: Start: 09-04-2022 End: 09-04-[address] Basilio Flores Work Phone: [facility] Start: 09-03-2022 End: 09-03-[address] Basilio Flores Work Phone: [facility] Work Phone: Start: 08-07-2022 End: 08-07-[address] Basilio Flroes Work Phone: [phone] [place] [address] Work Phone: Start: 08-07-2022 End: 08-07-[address] Basilio Flores Work Phone: [facility] Start: 08-02-2022 End: 08-02-[address] Basilio Flores Work Phone: [facility] Start: 07-24-2022 End: 07-24-[address] Basilio Flores Work Phone: [facility] Start: 07-21-2022 End: 07-21-[address] Basilio Flores Work Phone: [phone] [address] Start: 07-13-2022 End: 07-13-[address] Basilio Flores Work Phone: [phone] [place] [address] Start: 07-02-2022 End: 07-02-[address] Basilio Flores Work Phone: [phone] [place] [address] Start: 06-15-2022 End: 06-15-[address] Basilio Flores Work Phone: [phone] [address] Start: 06-12-2022 End: 06-12-[address] Basilio Flores Work Phone: [phone] [place] [address] Work Phone: Start: 06-12-2022 End: 06-12-[address] Basilio Flores Work Phone: [phone] [address] Start: 05-29-2022 End: 05-29-[address] Basilio Flores Work Phone: [phone] [address] Start: 04-17-2022 End: 04-17-[address] Basilio Flores Work Phone: [phone] [address] Start: 04-17-[address] Basilio avendano Work Phone: [phone] [place] [address] Start: 04-13-2022 End: 04-13-[address] Basilio Flores Work Phone: [phone] [place] [address] Start: 04-13-[address] Basilio avendano Work Phone: [phone] [place] [address] Start: 04-10-2022 End: 04-10-[address] Basilio Flores Work Phone: [phone] [place] [address] Work Phone: Start: 04-10-2022 End: 04-10-[address] Basilio Flores Work Phone: [facility] Start: 04-05-2022 End: 04-05-[address] Basilio Flores Work Phone: [facility] Start: 03-27-2022 End: 03-27-[address] Basilio Flores Work Phone: [facility] Start: 03-06-2022 End: 03-06-[address] Basilio Flores Work Phone: [facility] Work Phone: Start: 03-06-2022 End: 03-06-[address] Basilio Flores Work Phone: [facility] Start: 02-06-2022 End: 02-06-[address] Basilio Flores Work Phone: [facility] Work Phone: Start: 02-06-2022 End: 02-06-[address] Basilio Flores Work Phone: [facility] Start: 12-05-2021 End: 12-05-[address] Basilio Flores Work Phone: [facility] Start: 12-04-2021 End: 12-04-[address] Basilio Flores Work Phone: [facility] Start: 11-14-2021 End: 11-14-[address] Basilio Flores Work Phone: [facility] Start: 10-17-2021 End: 10-17-[address] Basilio Flores Work Phone: [facility] Start: 10-17-[address] Basilio avendano Work Phone: [facility] Start: 10-05-2021 End: 10-05-[address] Basilio Flores Work Phone: [facility] Start: 09-12-2021 End: 09-12-[address] Basilio Flores Work Phone: [facility] Start: 09-05-2021 End: 09-05-[address] Basilio Flores Work Phone: [facility] Start: 08-08-2021 End: 08-08-2021 Departed Referred [facility] Start: 08-08-2021 Registered Referred [facility] Start: 07-12-2021 End: 07-12-2021 Departed Referred [facility] Start: 03-16-2019 End: 03-16-2019 Patient encounter procedure Rachael Newman MD Work Phone: [facility] Work [...] Author Start: 02-17-2025 Registered Referred Registered Referred [facility] Start: 10-20-2024 Patient discharge [facility] Start: 10-19-2024 End: 10-19-2024 [facility] Start: 10-19-2024 Care regimes management [facility] Start: 10-19-[address] [facility] Start: 10-19-2024 Wound care [facility] Start: 10-19-2024 Care planning and problem solving actions [facility] Start: 10-18-2024 Following clinical pathway protocol [facility] Start: 10-18-2024 Application of ice collar, cap or bag [facility] Start: 10-18-2024 Assessment of risk of venous thromboembolism [facility] Start: 10-18-2024 Catheterization of vein [facility] Start: 10-18-2024 Consultation for treatment [facility] Start: 10-18-2024 Insertion of catheter into peripheral vein [facility] Start: 10-18-2024 Measuring intake and output [facility] Start: 10-18-2024 Oxygen therapy [facility] Start: 10-18-2024 Patient referral to dietitian [facility] Start: 10-18-2024 Providing care according to standard [facility] Start: 10-18-2024 Provision of activity privileges [facility] Start: 10-18-2024 Referral for physical therapy [facility] Start: 10-18-2024 Referral to occupational therapist [facility] Start: 10-18-2024 Referral to service [facility] Start: 10-18-2024 [facility] Start: 10-18-2024 Verification routine [facility] Start: 10-18-2024 Admission procedure [facility] Start: 10-18-2024 Hospital admission, emergency, from emergency room, medical nature [facility] Start: 10-18-2024 End: 10-18-2024 [facility] Start: 10-18-2024 End: 10-19-2024 [facility] Start: 10-18-2024 Bacteria identified in Blood by Culture Blood Culture [facility] Start: 10-18-2024 Bacteria identified in Urine by Culture Urine Culture [facility] Start: 10-18-2024 Consultation [facility] Start: 08-24-2024 Injection aa&/strd genicular nrv branches w/img NJX AA&/STRD GNCLR NRV BRNCH [facility] Start: 08-24-2024 Fluoroscopic guidance [facility] Start: 08-24-2024 Patient discharge [facility] Start: 06-08-2023 [facility] Start: 06-05-2023 Simple repair f/e/e/n/l/m 2.5cm/< RPR F/E/E/N/L/M 2.5 CM/< [facility] Start: 06-05-2023 [facility] Start: 03-16-2019 End: 03-16-2019 Appointment Appointment [facility] Work Phone: Patient Education [facility] Work Phone: Patient referral [facility] Work Phone: Urine culture [facility] Immunizations Immunization Date Immunization Notes Care Provider Fa cility 06-05-2023 tetanus toxoid, redu lloyd diphtheria toxoid, and acellular pertussis vaccine, adsorbed Dr. Basilio Flores Work Phone: [facility] 02-23-2015 Influenza virus vaccine [facility] Payers Date Payer Category Payer Medicare [id number] 2024 Self-pay [id number] 2024 Unknown [id number] Unknown [id number] Unknown [id number] 2.16.8 40.1.495265.3.579.2.462 Unknown [id number] 2.16.8 40.1.070761.3.579.2.462 Unknown [id number] 2.16.8 40.1.769916.3.579.2.462 Unknown [id number] 2.16.8 40.1.803228.3.579.2.462 Unknown [id number] 2.16.8 40.1.406893.3.579.2.462 Unknown [id number] 2.16.8 40.1.431421.3.579.2.462 Unknown [id number] 2.16.8 40.1.435613.3.579.2.462 Unknown [id number] 2.16.8 40.1.233903.3.579.2.462 Unknown [id number] 2.16.8 40.1.308298.3.579.2.462 Unknown [id number] 2.16.8 40.1.008223.3.579.2.462 Unknown [id number] 2.16.8 40.1.672932.3.579.2.462 Unknown [id number] 2.16.8 40.1.542884.3.579.2.462 Unknown [id number] 2.16.8 40.1.013800.3.579.2.462 Unknown [id number] 2.16.8 40.1.186064.3.579.2.462 Unknown [id number] 2.16.8 40.1.910035.3.579.2.462 Unknown [id number] 2.16.8 40.1.771677.3.579.2.462 Unknown [id number] 2.16.8 40.1.867463.3.579.2.462 Unknown [id number] 2.16.8 40.1.767802.3.579.2.462 Unknown [id number] 2.16.8 40.1.678162.3.579.2.462 Unknown [id number] 2.16.8 40.1.498085.3.579.2.462 Unknown [id number] 2.16.8 40.1.636407.3.579.2.462 Unknown [id number] 2.16.8 40.1.493868.3.579.2.462 Unknown [id number] 2.16.8 40.1.219610.3.579.2.462 Unknown [id number] 2.16.8 40.1.360545.3.579.2.462 Unknown [id number] 2.16.8 40.1.404196.3.579.2.462 Unknown [id number] 2.16.8 40.1.784789.3.579.2.462 Unknown [id number] 2.16.8 40.1.599204.3.579.2.462 Unknown [id number] 2.16.8 40.1.634447.3.579.2.462 Unknown [id number] 2.16.8 40.1.453322.3.579.2.462 Unknown [id number] 2.16.8 40.1.963552.3.579.2.462 Unknown [id number] 2.16.8 40.1.299121.3.579.2.462 Unknown [id number] 2.16.8 40.1.586186.3.579.2.462 Unknown [id number] 2.16.8 40.1.966809.3.579.2.462 Unknown [id number] 2.16.8 40.1.924267.3.579.2.462 Unknown [id number] 2.16.8 40.1.367951.3.579.2.462 Unknown [id number] 2.16.8 40.1.154287.3.579.2.462 Social History Date Type Detail Facility Start: 12-16-2019 End: 06-08-2023 Tobacco smoking status NHIS Unknown if ever smoked [facility] Start: 12-16-2019 None [facility] Start: 12-16-2019 Senior Living [facility] Start: 12-16-2019 Non-smoker [facility] Start: 1940 Sex Assigned At Female [facility] Start: 06-08-2023 End: 02-19-2025 Tobacco smoking status NHIS Never smoked tobacco (finding) [facility] Start: 08-06-2024 End: 08-24-2024 Sex Female (finding) [facility] Sex Female [facility] NEGATED: Highlighted rowStart: 03-16-2019 End: 03-16-2019 Alcohol use Alcohol use [facility] Work Phone: NEGATED: Highlighted rowStart: 03-16-2019 End: 03-16-2019 Details of drug misuse behavior Details of drug misuse behavior [facility] Work Phone: NEGATED: Highlighted rowStart: 03-16-2019 End: 03-16-2019 Assertion Never smoker [facility] Work Phone: Goals Date Patient Goal Desired Activity /State Functional Status Date Assessment Result Facility 10-20-2024 Functional status Patient Activi ty Bathroom Privilege [facility] Work Phone: 10-20-2024 Functional status Activity Abili ty With Assist of 1 [facility] Work Phone: 10-20-2024 Functional status Standard Walker [facility] Work Phone: Mental Status Date Assessment Result Facility 10-20-2024 Cognitive function Voice/Name [facility] Work Phone: 10-18-2024 Cognitive function Level Of Cons ciousness Awake;Appropriate;Follows Commands;Disoriented [facility] Work Phone: 08-24-2024 Cognitive function Voice/Name [facility] Work Phone: Clinical Notes 06-05-2023 to 10-20-2024 Note Date & Type Note Facility 10-20-2024 Discharge summary Note Date/Time October 20, 2024 3:53pm [facility] Medical Records Department [address] [place] [address] Discharge Summary 10/20/24 1535 MR#: [id number] Acct: [id number] Name: JUSTUS CHINCHILLA Rep #:[id number] : [id number] 84 From: Ángel cuenca MD PCP: Dr. Donato Sepulveda MD Status:A DM IN Location: [place] [address] Providers Date of Admission: 10/18/24 Primary Care Physician: Dr. Donato Sepulveda MD Consultations 10/18/24 22:14 Consult: Onc/Wound/grain miller helper Routine Comment: Reason For Visit: SEVERE HYPOGLYCEMIA/UTI [...] who presented to the emergency department at [facility] on 10/18/2024 with chief complaint of [...] weakness and falls?84-year-old female presenting from the senior care was found to have a blood sugar [...] does not like the food at the senior care apparently. I recommend holding all of her [...] would like to go back to the senior care if possible today. 2. Essential hypertension, type [...] in before D/C Order can be placed): Detention Facility Charges/Coding Visit Charges Inpatient E&M: 47237 Disch Hosp >30min 10/20/24 1553 <Electronically signed by Ángel Lam MD> Cosigner Signature (if applicable): CC: Dr. Donato Sepulveda MD; Dr. Ángel Lam MD~ Signed [facility] Work Phone: 1(931) 227-916206-17-2025 Discharge summary [facility] Medical Records Department [address] [place] [address] Discharge Summary 10/20/24 1535 MR#: [id number] Acct: [id number] Name: JUSTUS CHINCHILLA Rep #:[id number] : 1940 84 From: Ángel cuenca MD PCP: Dr. Donato Sepulveda MD Status:A DM IN Location: [facility] [id number] Providers Date of Admission: 10/18/24 Primary Care Physician: Dr. Donato Sepulveda MD Consultations 10/18/24 22:14 Consult: Onc/Wound/grain miller helper Routine Comment: Reason For Visit: SEVERE HYPOGLYCEMIA/UTI [...] who presented to the emergency department at [facility] on 10/18/2024 with chief complaint of [...] weakness and falls?84-year-old female presenting from the senior care was found to have a blood sugar [...] does not like the food at the senior care apparently. I recommend holding all of her [...] would like to go back to the senior care if possible today. 2. Essential hypertension, type [...] Admit Date/Time: 10/18/24 21:38 Attending Provider: Ángel Lma Primary Care Provider: Donato Sepulveda Consulting Providers: [...] in before D/C Order can be placed): Detention Facility Charges/Coding Visit Charges Inpatient E&M: 83104 Disch Hosp >30min 10/20/24 1553 Cosigner Signature (if applicable): CC: Dr. Donato Sepulveda MD; Dr. Ángel Lam MD~ Signed [facility]06-17-2025 [facility] Medical Records Department [address] [place] [address] Discharge Summary 10/20/24 1535 MR#: [id number] Acct: [id number] Name: RENÉEJUSTUS M Rep #: [id number] : 1940 84 From: Ángel Lam MD PCP: Dr. Donato Sepulveda MD Status:ADM IN Location: [facility] [id number] Providers Date of Admission: 10/18/24 Primary Care Physician: Dr. Donato Sepulveda MD Consultations 10/18/24 22:14 Consult: Onc/Wound/grain miller helper Routine Comment: Reason For Visit: SEVERE HYPOGLYCEMIA/UTI [...] who presented to the emergency department at [facility] on 10/18/2024 with chief complaint of [...] sugar improved her mentation (more content not included)...[facility]06-17-2025 Consult note Author Perla Jaimes [facility] Note Date/Time October 20, 2024 11:4 8am [facility] Medical Records Department [address] [place] [address] Counseling Note - Pharmacy 10/20/24 1148 MR#: [id number] Acct: [id number] Name: JUSTUS CHINCHILLA Rep #:[id number] : 1940 84 From: Perla Jaimes PCP: Dr. Donato Sepulveda MD Status:A DM IN Y Location: [place] [id number] [place] Med Reconciliation Pharmacy Service has performed discharge [...] Signature (if applicable): Date CC: ~ Signed [facility] Work Phone: 1(975) 213-479506-17-2025 Discharge summary Author Ángel Lam [facility] Note Date/Time October 20, 2024 11:2 0am [facility] Medical Records Department [address] [place] [address] Transfer to [facility] Care MR#: [id number] Acct: [id number] Name: JUSTUS CHINCHILLA Rep #:[id number] : 1940 84 From: Ángel cuenca MD PCP: Dr. Donato Sepulveda MD Status:A DM IN Certification of patient admission REQUIRED AT TIME OF ADMISSION. I CERTIFY THAT POST-HOSPITAL ECF SERVICES ARE REQUIRED TO BE GIVEN ON AN IN-PATIENT BASIS BECAUSE OF THE ABOVE NAMED PATIENT'S NEED FOR [facility] CARE ON A CONTINUING BASIS FOR THE CONDITION(S) FOR WHICH HE/SHE WAS RECEIVING IN-PATIENT HOSPITAL SERVICES PRIOR TO HIS/HER TRANSFER TO THE [facility]. 10/20/24 1120<Electronically signed by Ángel Lam [...] her lack of p.o. intake at the senior care ? She did have falls at home the senior care because of this hypoglycemia with some abrasions [...] in before D/C Order can be placed): Detention Facility 10/20/24 1120 <Electronically signed by Ángel Lam MD> Cosigner Signature (if applicable): CC: Dr. Donato Sepulveda MD; Dr. Anali Coello, DO ~ [facility] Work Phone: 1(962) 846-123606-17-2025 Consult note [facility] Medical Records Department [address] [place] [address] Counseling Note - Pharmacy 10/20/24 1148 MR#: [id number] Acct: [id number] Name: JUSTUS CHINCHILLA Rep #:[id number] : 1940 84 From: Perla Jaimes PCP: Dr. Donato Sepulveda MD Status:A DM IN Y [facility] [place] Med Reconciliation Pharmacy Service has performed discharge [...] Signature (if applicable): Date CC: ~ Signed [facility]06-17-2025 Discharge summary [facility] Medical Records Department [address] [place] [address] Transfer to [facility] MR#: [id number] Acct: [id number] Name: JUSTUS CHINCHILLA Rep #:[id number] : 1940 84 From: Ángel cuenca MD PCP: Dr. Donato Sepulveda MD Status:A DM IN Certification of patient admission REQUIRED AT TIME OF ADMISSION. I CERTIFY THAT POST-HOSPITAL ECF SERVICES ARE REQUIRED TO BE GIVEN ON AN IN-PATIENT BASIS BECAUSE OF THE ABOVE NAMED PATIENT'S NEED FOR [facility] CARE ON A CONTINUING BASIS FOR THE CONDITION(S) FOR WHICH HE/SHE WAS RECEIVING IN-PATIENT HOSPITAL SERVICES PRIOR TO HIS/HER TRANSFER TO THE [facility]. 10/20/24 1120 Diet Diet Order/Speech Therapy: [...] her lack of p.o. intake at the senior care ? She did have falls at home the senior care because of this hypoglycemia with some abrasions [...] in before D/C Order can be placed): Detention Facility 10/20/24 1120 Cosigner Signature (if applicable): CC: Dr. Donato Sepulveda MD; Dr. Anali Coello, DO ~ [facility]06-16-2025 Progress note Author Ángel Lam [facility] Note Date/Time October 19, 2024 7:02 pm [facility] Medical Records Department [address] [place] [address] Progress Note - Hospitalist 10/19/24 1852 MR#: [id number] Acct: [id number] Name: JUSTUS CHINCHILLA Rep #:[id number] : 1940 84 From: Ángel cuenca MD PCP: Dr. Donato Sepulveda MD Status:A DM IN Location: [place] [id number] Subjective Subjective She says that she [...] Clarity Clear, Urine pH 6.5, Ur Specific [place] 1.015, Urine Protein 30 H, Urine Glucose [...] % (Auto) 70.0, Lymph % (Auto) 21.5, [place]% (Auto) 7.3, Eos % (Auto) 0.6, Baso [...] Catheterized Urine Culture - Preliminary GNR lactose general technician 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 Mild anterior frontal scalp swelling. No acute calvarial defect. Reading Location: [facility] Physical Exam Narrative General: Alert, Oriented [...] her lack of p.o. intake at the senior care ? She did have falls at home the senior care because of this hypoglycemia with some abrasions [...] DVT: Lovenox Charges/Coding Visit Charges Inpatient E&M: 94977 Subs Hosp L2 10/19/24 1902 <Electronically signed by Ángel Lam MD> Cosigner Signature (if applicable): CC: ~ Signed [facility] Work Phone: 1(465) 605-884406-16-2025 Progress note [facility] Medical Records Department [address] [place] [address] Progress Note - Hospitalist 10/19/24 1852 MR#: [id number] Acct: [id number] Name: JUSTUS CHINCHILLA Rep #:[id number] : 1940 84 From: Ángel cuenca MD PCP: Dr. Donato Sepulveda MD Status:A DM IN Location: [place] [address] Subjective Subjective She says that she does [...] Clarity Clear, Urine pH 6.5, Ur Specific [place] 1.015, Urine Protein 30 H, Urine Glucose [...] % (Auto) 70.0, Lymph % (Auto) 21.5, [place]% (Auto) 7.3, Eos % (Auto) 0.6, Baso [...] Catheterized Urine Culture - Preliminary GNR lactose general technician 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 Mild anterior frontal scalp swelling. No acute calvarial defect. Reading Location: [facility] Physical Exam Narrative General: Alert, Oriented [...] her lack of p.o. intake at the senior care ? She did have falls at home the senior care because of this hypoglycemia with some abrasions [...] DVT: Lovenox Charges/Coding Visit Charges Inpatient E&M: 42692 Subs Hosp L2 10/19/24 190 Cosigner Signature (if applicable): CC: ~ Signed [facility]06-16-2025 Discharge summary Author Zoltan Garcia [facility] Note Date/Time October 19, 2024 12:1 3am [facility] Medical Records Department [address] [place] [address] Emergency Department Summary 10/18/24 MR#: [id number] Acct: [id number] Name: JUSTUS CHINCHILLA Rep #:[id number] : 1940 84 From: Zoltan Gomez PCP: Dr. Donato Sepulveda MD Status:A DM IN Location: [place] [address] HPI HPI - Fall History of Present [...] motor deficits and no sensory deficits noted [place] Coma Scale: document GCS findings Spontaneous Obeys [...] 89.4 H Lymph % (Auto) 4.7 L [place] % (Auto) 4.8 Eos % (Auto) 0.1 [...] Color Urine Clarity Urine pH Ur Specific [place] Urine Protein Urine Glucose (UA) Urine Ketones [...] (Auto) Neut % (Auto) Lymph % (Auto) [place] % (Auto) Eos % (Auto) Baso % [...] Clarity Clear Urine pH 6.5 Ur Specific [place] 1.015 Urine Protein 30 H Urine Glucose [...] (Auto) Neut % (Auto) Lymph % (Auto) [place] % (Auto) Eos % (Auto) Baso % [...] Color Urine Clarity Urine pH Ur Specific [place] Urine Protein Urine Glucose (UA) Urine Ketones Urine Occult Blood Urine Nitrite Urine Bilirubin Urine Urobilinogen Ur Leukocyte Esterase Urine RBC Urine WBC Ur Squamous Epith Cells Urine Bacteria Urine Mucus POC Glucose 129 H Radiography Diagnostic Testing: Clinical Impression(s) from Imaging Studies Brain CT 10/18/24 17:01 IMPRESSION: No acute intracranial process. Mild anterior frontal scalp swelling. No acute calvarial defect. Reading Location: [id number] Management Discussion w/another healthcare provider: Hospitalist (Dr. Coello) Discharge Plan Dx/Rx/DC Orders Clinical Impression: Traumatic hematoma of forehead, Abrasion of forehead, Fall, Diabetic hypoglycemia, Skin tear of forearm without complication, Acute UTI Disposition Disposition: Acute Care Hospital [facility] Discharge Date/Time: 10/18/24 22:04 What to do if you have Problems For any increased pain, shortness of breath, bleeding, nausea or vomiting, chestpain, or any unexpected problems, contact your Primary Care Provider. Call [facility] ([phone]) or report to the closest Emergency Room. Call 911 if necessary. 10/19/24 0013 <Electronically signed by Zoltan Garcia DO> Cosigner Signature (if applicable): CC: Dr. Donato Sepulveda MD ~ Signed [facility] Work Phone: 1([phone]) 150-661406-16-2025 History and physical note Author Anali Coello [facility] Note Date/Time October 18, 2024 10:2 4pm [facility] Medical Records Department [address] [place] [address] H&P Exam - Hospitalist 10/18/242107 MR#: [id number] Acct: [id number] Name: JUSTUS CHINCHILLA Rep #:[id number] : 1940 84 From: Anali Coello DO PCP: Dr. Donato Sepulveda MD Status:A DM IN Location: [place] [id number] HPI - General General Date of Admission: 10/18/24 Date of Service: 10/18/24 Chief Complaint: Fall/altered mental status HPI Narrative JUSTUS CHINCHILLA, is a 84 F who presented to the emergency department at [facility] on 10/18/2024 with chief complaint of [...] she was close to her baseline mentation. [facility] Medical History (Updated 10/18/24 @ 21:59 [...] (Auto) 89.4 H, Lymph % (Auto) 4.7L, [place] % (Auto) 4.8, Eos % (Auto) 0.1, [...] Clarity Clear, Urine pH 6.5, Ur Specific [place] 1.015, Urine Protein 30 H, Urine Glucose [...] swelling. No acute calvarial defect. Reading Location: [id number] Assessment & Plan Assessment/Plan (1) Skin tear of forearm without complication: (2) Diabetic hypoglycemia: (3) Fall: (4) Traumatic hematoma of forehead: (5) Abrasion of forehead: PLAN: Plan Altered mental status secondary to severe hypoglycemia - Blood sugar on [facility] at presentation was 19 - Dextrose drip [...] work consultation - Patient currently resides at [facility] - Hold all home antidiabetic agents [...] palliative care Charges/Coding Visit Charges Inpatient E&M: 65853 Init Hosp L2 10/18/24 2224 <Electronically signed by Anali Coello DO> Cosigner Signature (if applicable): CC: Dr. Donato Sepulveda MD; Dr. Anali Coello DO~ Signed [facility] Work Phone: 1([phone]) 800-837406-16-2025 Discharge summary [facility] Medical Records Department [address] [place] [address] Emergency Department Summary 10/18/24 MR#: [id number] Acct: [id number] Name: JUSTUS CHINCHILLA Rep #:[id number] : 1940 84 From: Zoltan Gomez PCP: Dr. Donato Sepulveda MD Status:A DM IN Location: [facility] [id number]- 1 HPI HPI - Fall History of [...] Patient takes oral hypoglycemicsas well as insulin. [facility] Medical History (Updated 10/18/24 @ 21:59 [...] motor deficits and no sensory deficits noted [place] Coma Scale: document GCS findings Spontaneous Obeys [...] 89.4 H Lymph % (Auto) 4.7 L [place] % (Auto) 4.8 Eos % (Auto) 0.1 [...] Color Urine Clarity Urine pH Ur Specific [place] Urine Protein Urine Glucose (UA) Urine Ketones [...] (Auto) Neut % (Auto) Lymph % (Auto) [place] % (Auto) Eos % (Auto) Baso % [...] Clarity Clear Urine pH 6.5 Ur Specific [place] 1.015 Urine Protein 30 H Urine Glucose [...] (Auto) Neut % (Auto) Lymph % (Auto) [place] % (Auto) Eos % (Auto) Baso % [...] Color Urine Clarity Urine pH Ur Specific [place] Urine Protein Urine Glucose (UA) Urine Ketones Urine Occult Blood Urine Nitrite Urine Bilirubin Urine Urobilinogen Ur Leukocyte Esterase Urine RBC Urine WBC Ur Squamous Epith Cells Urine Bacteria Urine Mucus POC Glucose 129 H Radiography Diagnostic Testing: Clinical Impression(s) from Imaging Studies Brain CT 10/18/24 17:01 IMPRESSION: No acute intracranial process. Mild anterior frontal scalp swelling. No acute calvarial defect. Reading Location: [facility] Management Discussion w/another healthcare provider: Hospitalist (Dr. Coello) Discharge Plan Dx/Rx/DC Orders Clinical Impression: Traumatic hematoma of forehead, Abrasion of forehead, Fall, Diabetic hypoglycemia, Skin tear of forearm without complication, Acute UTI Disposition Disposition: Acute Care Hospital [facility] Discharge Date/Time: 10/18/24 22:04 What to do if you have Problems For any increased pain, shortness of breath, bleeding, nausea or vomiting, chestpain, or any unexpected problems, contact your Primary Care Provider. Call [facility] ([phone]) or report tothe closest Emergency Room. Call 911 if necessary. 10/19/2412 Cosigner Signature (if applicable): CC: Dr. Donato Sepulveda MD ~ Signed [facility]06-15-2025 Evaluation note* Diagnosis Onset Date Resolution Status Admit Date Abrasion of forehead acute October 18, 2024 9:38pm Acute UTI acute October 18 9:38pm Diabetic hypoglycemia acute Oct 9:38pm Fall acute October 18 9:38pm Skin tear of forearm without complication acute October 18, 2024 9:38pm Traumatic hematoma of forehead acute October 18, 2024 9:38pm [facility] Work Phone: 1(807) 723-949106-15-2025 Evaluation note* Diagnosis Onset Date Resolution Status Admit Date Abrasion of forehead acute October 18, 2024 9:38pm Diabetic hypoglycemia acute Oct 9:38pm Fall acute October 18 9:38pm Skin tear of forearm without complication acute October 18, 2024 9:38pm Traumatic hematoma of forehead acute October 18, 2024 9:38pm Acute UTI resolved October 18 9:38pm [facility] Work Phone: 1(543) 243-127106-15-2025 History and physical note [facility] Medical Records Department [address] [place] [address] H&P Exam - Hospitalist 10/18/242107 MR#: [id number] Acct: [id number] Name: JUSTUS CHINCHILLA Rep #:[id number] : 1940 84 From: Anali Coello DO PCP: Dr. Donato Sepulveda MD Status:A DM IN Location: [place] [id number] HPI - General General Date of Admission: 10/18/24 Date of Service: 10/18/24 Chief Complaint: Fall/altered mental status HPI Narrative JUSTUS CHINCHILLA, is a 84 F who presented to the emergency department at [facility] on 10/18/2024 with chief complaint of [...] to be at [facility] at the time of my admission. [...] she was close to her baseline mentation. [facility] Medical History (Updated 10/18/24 @ 21:59 [...] (Auto) 89.4 H, Lymph % (Auto) 4.7L, [place] % (Auto) 4.8, Eos % (Auto) 0.1, [...] Clarity Clear, Urine pH 6.5, Ur Specific [place] 1.015, Urine Protein 30 H, Urine Glucose [...] swelling. No acute calvarial defect. Reading Location: [id number] Assessment & Plan Assessment/Plan (1) Skin tear of forearm without complication: (2) Diabetic hypoglycemia: (3) Fall: (4) Traumatic hematoma of forehead: (5) Abrasion of forehead: PLAN: Plan Altered mental status secondary to severe hypoglycemia - Blood sugar on [facility] at presentation was 19 - Dextrose drip [...] work consultation - Patient currently resides at [facility] - Hold all home antidiabetic agents [...] palliative care Charges/Coding Visit Charges Inpatient E&M: 15781 Init Hosp L2 10/18/24 2224 Cosigner Signature (if applicable): CC: Dr. Donato Sepulveda MD; Dr. Anali Coello DO~ Signed [facility]06-15-2025 Radiology Diagnostic study note [facility] Imaging Services [address] [place], [place] [address] Brain/Head without Contrast MR#: [id number] Acct: [id number] Name: JUSTUS CHINCHILLA Rep #: [id number] : 1940 F 84 From: Debby Contreras MD PCP: Dr. Donato Sepulveda MD Status: R EG ER Study:Brain/Head without Contrast Date of Exa m: 10/18/24 Exam# [id number] Ordering Dr: Parminder Garcia DO PROCEDURE: BRAIN/HEAD [...] hydrocephalus or significant midline shift. There is krqu-qt-ubmzgreg chronic microvascular ischemic changes and jpgx-cs-nkyzliio parenchymal volume loss. No acute, depressed calvarial fractures. Mild anterior frontal scalp swelling. Bilateral lens surgeries. CT/Brain/Head without Contrast IMPRESSION: No acute intracranial process. Mild anterior frontal scalp swelling. No acute calvarial defect. Reading Location: [facility] CC: Dr. Zoltan Garcia DO; Dr. Donato Sepulveda MD ~ Timber Harvester Operator: Signed [facility]04-21-2025 Procedure note [facility] Medical Records Department [address] [place] [address] Operative Report 08/24/24931 MR#: [id number] Acct: [id number] Name: JUSTUS CHINCHILLA Rep #:[id number] : 1940 84 From: Armando Rich MD PCP: Dr. 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 Donato Sepulveda MD; Dr. Armando Rich MD~ Signed [facility]01-31-2024 Discharge summary Author Colleen Walker [facility] June 05, 2023 7:54am Note Date/Time June 05, 2023 4 :38am [facility] Medical Records Department [address] [place] [address] Emergency Department Summary 06/05/23 MR#: [id number] Acct: [id number] Name: JUSTUS CHINCHILLA Rep #:[id number] : 1940 82 From: Colleen Gomez PCP: [...] Is not on any blood thinners. Per senior care report patient was in the dining room at the table doing her puzzles which is her typical activity. Unclear if there was loss of consciousness. Was sent for evaluation of injuries. Tetanus Immunization: Unknown [facility] Medical History Anxiety and depression Arthritis [...] her baseline. No focal neurologic deficits appreciated [place] Coma Scale: document GCS findings Spontaneous Obeys [...] Family Additional record(s) reviewed:: Prior outpatient record (senior care paperwork ) Lab Data Attestation: I reviewed [...] 76.3 H Lymph % (Auto) 13.6 L [place] % (Auto) 7.2 Eos % (Auto) 2.0 [...] Sl. Cloudy Urine pH 6.0 Ur Specific [place] 1.015 Urine Protein 15 H Urine Glucose [...] your Primary Care Provider. Call [facility] ([phone]) or report to the closest Emergency Room. Call 911 if necessary. 06/05/23 0757 <Electronically signed by Colleen Walker DO> Cosigner Signature (if applicable): CC: Dr. Basilio Flores MD ~ Signed [facility] Work Phone: Evaluation noteNo assessment information available [facility] Work Phone: Evaluation note* Diagnosis Onset Date Resolution Status Admit Date Abrasion of forehead acute October 18, 2024 9:38pm Acute UTI acute October 18 9:38pm Diabetic hypoglycemia acute Agus 2024 9:38pm Fall acute October 18 9:38pm Skin tear of forearm without complication acute October 18, 2024 9:38pm Traumatic hematoma of forehead acute October 18, 2024 9:38pm [facility] Work Phone: Hospital Discharge instructions Additional Instructions Lab work including CBC, BMP, urinalysis and CT of the head, cervical spine as well as x-ray of the right elbow do not show any acute injury or abnormalities. The cause of Justus's frequent falls is not clear however at this time I do not think she requires admission to the hospital.[facility] Work Phone: Reason for referral (narrative)No reason for referral information availableWProMedica [facility] Work Phone: Chief Complaint Chief Complaint [...] Yes December 15 0 6:54pm Power of Housekeeping Lead Yes December 15 020 6:54pm Advance Directive Response Recorded Date/ Time Advance Directives Yes October 13 12:44pm Living Will Yes December 15 0 5:54pm Power of Housekeeping Lead Yes December 15 5:54pm Advance Directive Response Recorded Date/ Time Advance Directives Yes March 07, 2023 11:00am Living Will Yes March 07 11:00am Power of Housekeeping Lead Yes March 07, 2023 11:00am Advance Directive Response Recorded Date/ Time Name of Medical Power of Housekeeping Lead ABEBE VELEZ June 05, 2023 3:45am Advance Directives Yes March 07, 2023 11:00am Living Will Yes June 05 3:45am Power of Housekeeping Lead Yes June 05, 2023 3:45am Advance Directive Response Recorded Date/ Time Name of Medical Power of Housekeeping Lead ABEBE VELEZ June 05, 2023 3:45am Advance Directives Yes March 07, 2023 11:00am Living Will No June 08 8:10am Power of Housekeeping Lead No June 08, 2023 8:10am Advance Directive Response Recorded Date/ Time Name of Medical Power of Housekeeping Lead ABEBE VELEZ June 05, 2023 4:45am Advance Directives Yes March 07, 2023 12:00pm Living Will No June 08 9:10am Power of Housekeeping Lead No June 08, 2023 9:10am Advance Directive Response Recorded Date/ Time Advance Directives Yes March 07, 2023 12:00pm Advance Directive Response Recorded Date/ Time Do you have a Healthcare Power of Housekeeping Lead? Yes October 18, 2024 4:46pm Advance Directives Yes March 07, 2023 12:00pm Advance Directive Response Recorded Date/ Time Do you have a Healthcare Pow er of Housekeeping Lead? Yes October 18, 2024 10:15pm Name of Medical Power of Housekeeping Lead Ina Jaimes October 18, 2024 10:15pm Advance [...] Complaint and Reason for Visit Chief Complaint [facility] LAB WOR K [facility] PATIENT Chief Complaint [facility] LAB WOR K [facility] PATIENT MONTHLY EXAM Chief Complaint [facility] LAB WOR K [facility] PATIENT MONTHLY EXAM LABWORK Chief Complaint [facility] PATIENT MONTHLY EXAM LABWORK Chief Complaint MONTHLY EXAM LABWORK [facility] LABWORK [facility] LABWORK MONTHLY EXAM [facility] LABWORK Chief Complaint [facility] LABWORK MONTHLY EXAM [facility] LABWORK [facility] LABWORK Chief Complaint MONTHLY EXAM [facility] LABWORK [facility] LABWORK [facility] LABWORK Chief Complaint [facility] LABWORK [facility] LABWORK NEW SYMPTOMS/CONCERNS ACUTE CARE VISIT [facility] LAB WORK [facility] LAB WORK Chief Complaint [facility] LABWORK NEW SYMPTOMS/CONCERNS ACUTE CARE VISIT [facility] LAB WORK [facility] LABWORK [facility] LAB WORK MONTHLY EXAM [facility] LABWORK NEW PROBLEM/CONCERN Chief Complaint MONTHLY EXAM [facility] LABWORK NEW PROBLEM/CONCERN NEW PROBLEM NEW PROBLEM/CONCERN NEW PROBLEM NEW PROBLEM NEW PROBLEM [facility] LABWORK Chief Complaint MONTHLY EXAM [facility] LABWORK NEW PROBLEM/CONCERN NEW PROBLEM NEW PROBLEM/CONCERN NEW PROBLEM NEW PROBLEM NEW PROBLEM [facility] LABWORK [facility] LABWORK Chief Complaint NEW CONCERN [facility] LABWORK MONTHLY EXAM [facility] LAB WORK MCFP LABWORK [facility] LAB WORK MONTHLY EXAM MONTHLY EXAM [facility] LAB WORK Chief Complaint NEW CONCERN [facility] LABWORK MONTHLY EXAM [facility] LAB WORK MCFP LABWORK [facility] LAB WORK MONTHLY EXAM MONTHLY EXAM [facility] LAB WORK [facility] LAB WORK Chief Complaint NEW CONCERN NEW CONCERN MONTHLY EXAM NEW CONCERN NEW CONCERN [facility] LAB WORK FOLLOW UP [facility] LAB WORK ACUTE CARE MONTHLY EXAM [facility] LAB WORK Chief Complaint NEW CONCERN MONTHLY EXAM NEW CONCERN NEW CONCERN [facility] LAB WORK FOLLOW UP [facility] LAB WORK ACUTE CARE MONTHLY EXAM [facility] LAB WORK MCFP LABWORK [facility]FP LABWORK Chief Complaint [facility] LAB WOR K FOLLOW UP [facility] LAB WORK ACUTE CARE MONTHLY EXAM [facility] LAB WORK MCFP LABWORK [facility] LABWORK MONTHLY EXAM ACCOUNTING MANAGER HEAD INJURY Chief Complaint FOLLOW UP [facility] LAB WORK ACUTE CARE MONTHLY EXAM [facility] LAB WORK [facility]FP LABWORK [facility] LABWORK MONTHLY EXAM ACCOUNTING MANAGER NEW CONCERN MONTHLY EXAM - MD HEAD INJURY NEW CONCERN fall LABWORK Chief Complaint [facility] LABWORK [facility] LABWORK MONTHLY EXAM ACCOUNTING MANAGER NEW CONCERN MONTHLY EXAM - MD HEAD INJURY NEW CONCERN fall LABWORK [facility] LAB WORK Chief Complaint Admit Date [facility] LAB WORK April 21 5:00am MONTHLY EXAM May 19, 2024 4 :53pm NEW CONCERN June 01, 2024 5 :22pm [facility] LAB WORK June 02, 2024 5:00am [facility] LAB WORK June 09, 2024 5:00am [facility] LAB WORK June 15 3:15pm NEW CONCERN June 26, 2024 5:54pm [facility] LAB WORK July 14, 2024 4 :00am [facility] LAB WORK July 15, 2024 5 :00am Chief Complaint Admit Date [facility] LAB WORK April 21 5:00am MONTHLY EXAM May 19, 2024 4 :53pm NEW CONCERN June 01, 2024 5 :22pm [facility] LAB WORK June 02, 2024 5:00am [facility] LAB WORK June 09, 2024 5:00am [facility] LAB WORK June 15 3:15pm NEW CONCERN June 26, 2024 5:54pm [facility] LAB WORK July 14, 2024 4 :00am MONTHLY EXAM July 14, 2024 4:0 5pm [facility] LAB WORK July 15, 2024 5 :00am Chief Complaint Admit Date MONTHLY EXAM May 19, 2024 4 :53pm NEW CONCERN June 01, 2024 5 :22pm [facility] LAB WORK June 02, 2024 5:00am [facility] LAB WORK June 09, 2024 5:00am [facility] LAB WORK June 15 3:15pm NEW CONCERN June 26, 2024 5:54pm [facility] LAB WORK July 14, 2024 4 :00am MONTHLY EXAM July 14, 2024 4:0 5pm [facility] LAB WORK July 15, 2024 5 :00am Chief Complaint Admit Date [facility] LAB WORK June 09, 2024 5:00am [facility] LAB WORK June 15 3:15pm NEW CONCERN June 26, 2024 5:54pm [facility] LAB WORK July 14, 2024 4 :00am MONTHLY EXAM July 14, 2024 4:0 5pm [facility] LAB WORK July 15, 2024 5 :00am MONTHLY EXAM August 17, 2024 4:4 9pm [facility] LAB WORK August 25, 2024 4 :00am Chief Complaint Admit Date [facility] LAB WORK June 15 3:15pm NEW CONCERN June 26, 2024 5:54pm [facility] LAB WORK July 14, 2024 4 :00am MONTHLY EXAM July 14, 2024 4:0 5pm [facility] LAB WORK July 15, 2024 5 :00am MONTHLY EXAM August 17, 2024 4:4 9pm [facility] LAB WORK August 25, 2024 4 :00am [facility] LAB WORK September 08, 2024 5:00 am Chief Complaint Admit Date NEW CONCERN June 26, 2024 5:54pm [facility] LAB WORK July 14, 2024 4 :00am MONTHLY EXAM July 14, 2024 4:0 5pm [facility] LAB WORK July 15, 2024 5 :00am MONTHLY EXAM August 17, 2024 4:4 9pm [facility] LAB WORK August 25, 2024 4 :00am [facility] LAB WORK September 08, 2024 5:00 am [...] Date NEW CONCERN June 26, 2024 5:54pm [facility] LAB WORK July 14, 2024 4 :00am MONTHLY EXAM July 14, 2024 4:0 5pm [facility] LAB WORK July 15, 2024 5 :00am MONTHLY EXAM August 17, 2024 4:4 9pm [facility] LAB WORK August 25, 2024 4 :00am [facility] LAB WORK September 08, 2024 5:00 am SEVERE HYPOGLYCEMIA/UTI October 18, 2024 9:38pm SEVERE HYPOGLYCEMIA/UTI October 19, 2024 6:52pm SEVERE HYPOGLYCEMIA/UTI October 20, 2024 11:11am Chief Complaint Admit Date MONTHLY EXAM August 17, 2024 4:4 9pm [facility] LAB WORK August 25, 2024 4 :00am [facility] LAB WORK September 08, 2024 5:00 am MONTHLY EXAM September 15, 2024 4:00p m [facility] LAB WORK October 06, 2024 5:0 0am [...] MONTHLY EXAM August 17, 2024 4:4 9pm [facility] LAB WORK August 25, 2024 4 :00am [facility] LAB WORK September 08, 2024 5:00 am MONTHLY EXAM September 15, 2024 4:00p m [facility] LAB WORK October 06, 2024 5:0 0am SEVERE HYPOGLYCEMIA/UTI October 18, 2024 9:38pm SEVERE HYPOGLYCEMIA/UTI October 19, 2024 6:52pm SEVERE HYPOGLYCEMIA/UTI October 20, 2024 11:11am RE ADMISSION EXAM October 21, 2024 5:45 pm Chief Complaint Admit Date [facility] LAB WORK August 25, 2024 4 :00am [facility] LAB WORK September 08, 2024 5:00 am MONTHLY EXAM September 15, 2024 4:00p m [facility] LAB WORK October 06, 2024 5:0 0am SEVERE HYPOGLYCEMIA/UTI October 18, 2024 9:38pm SEVERE HYPOGLYCEMIA/UTI October 19, 2024 6:52pm SEVERE HYPOGLYCEMIA/UTI October 20, 2024 11:11am RE ADMISSION EXAM October 21, 2024 5:45 pm Monthly Exam November 10, 2024 4:19p m [facility] LAB WORK November 17, 2024 4: 50am Chief Complaint Admit Date [facility] LAB WORK September 08, 2024 5:00 am MONTHLY EXAM September 15, 2024 4:00p m [facility] LAB WORK October 06, 2024 5:0 0am SEVERE HYPOGLYCEMIA/UTI October 18, 2024 9:38pm SEVERE HYPOGLYCEMIA/UTI October 19, 2024 6:52pm SEVERE HYPOGLYCEMIA/UTI October 20, 2024 11:11am RE ADMISSION EXAM October 21, 2024 5:45 pm Monthly Exam November 10, 2024 4:19p m [facility] LAB WORK November 17, 2024 4: 50am MONTHLY EXAM December 04, 2024 4:1 5pm [facility] LAB WORK December 08, 2024 5 :00am Chief Complaint Admit Date SEVERE HYPOGLYCEMIA/UTI October 18, 2024 9:38pm SEVERE HYPOGLYCEMIA/UTI October 19, 2024 6:52pm SEVERE HYPOGLYCEMIA/UTI October 20, 2024 11:11am RE ADMISSION EXAM October 21, 2024 5:45 pm Monthly Exam November 10, 2024 4:19p m [facility] LAB WORK November 17, 2024 4: 50am MONTHLY EXAM December 04, 2024 4:1 5pm [facility] LAB WORK December 08, 2024 5 :00am [facility] LAB WORK December 29, 2024 4:00am [facility] LAB WORK December 30, 2024 5:00am Chief Complaint Admit Date Monthly Exam November 10, 2024 4:19p m [facility] LAB WORK November 17, 2024 4: 50am MONTHLY EXAM December 04, 2024 4:1 5pm [facility] LAB WORK December 08, 2024 5 :00am [facility] LAB WORK December 29, 2024 4:00am [facility] LAB WORK December 30, 2024 5:00am MONTHLY EXAM January 12, 2025 3:54pm NEW CONCERN January 26, 2025 3:02pm Chief Complaint Admit Date Monthly Exam November 10, 2024 4:19p m [facility] LAB WORK November 17, 2024 4: 50am MONTHLY EXAM December 04, 2024 4:1 5pm [facility] LAB WORK December 08, 2024 5 :00am [facility] LAB WORK December 29, 2024 4:00am [facility] LAB WORK December 30, 2024 5:00am MONTHLY EXAM January 12, 2025 3:54pm NEW CONCERN January 26, 2025 3:02pm [facility] LAB WORK February 09, 2025 5:25am Summary [...] 2024 End: June 26, 2024 Debora Schneider ACCOUNTING MANAGER, ACCOUNTING MANAGER-C Attending Provider Active Start: June 26, 2024 [...] 2024 End: August 17, 2024 Debora Schneider ACCOUNTING MANAGER, ACCOUNTING MANAGER-C Attending Provider Active Start: August 17, 2024 [...] 2024 End: August 24, 2024 Debora Schneider ACCOUNTING MANAGER, ACCOUNTING MANAGER-C Other Provider Active S tart: August 24, [...] MD Primary Care Provider Active Debora Schneider ACCOUNTING MANAGER, ACCOUNTING MANAGER-C Attending Provider Active Team Status: Inactive Member [...] End: June 01, 2024 Debora Schneider NP ACCOUNTING MANAGER-C Attending Provider Active Start: June 01, 2024 [...] October 20, 2024 Dr. Aanli Coello DO Admit Provider Active Start : [...] 2024 End: August 17, 2024 Debora Schneider ACCOUNTING MANAGER, ACCOUNTING MANAGER-C Attending Provider Active Start: August 17, 2024 [...] 2024 End: August 24, 2024 Debora Schneider ACCOUNTING MANAGER, ACCOUNTING MANAGER-C Other Provider Active S tart: August 24, [...] End: October 21, 2024 Debora Schneider NP, ACCOUNTING MANAGER-C Attending Provider Active Start: October 21, 2024 [...] 2024 End: August 24, 2024 Debora Schneider ACCOUNTING MANAGER, ACCOUNTING MANAGER-C Other Provider Active S tart: August 24, [...] Provider Active Start: October 19, 2024 Dr. oZltan Garcia DO Emergency Provider Active Start: October [...] 2024 End: October 21, 2024 Debora Schneider ACCOUNTING MANAGER, ACCOUNTING MANAGER-C Attending Provider Active Start: October 21, 2024 [...] Active Start: October 20, 2024 Dr. Ángel aLm MD Other Provider Active Start: October 20, 2024 Team Status: Inactive Member Role/Relationship Status Dates Dr. Donato Sepulveda MD Primary Care Provider Active Start: October 21, 2024 End: October 21, 2024 Debora Schneider ACCOUNTING MANAGER, ACCOUNTING MANAGER-C Attending Provider Active Start: October 21, 2024 [...] 2024 End: December 04, 2024 Debora Schneider ACCOUNTING MANAGER, ACCOUNTING MANAGER-C Attending Provider Active Start: December 04, 2024 [...] physician Active Start: October 19, 2024 Dr. Aanli Coello DO Nurse Practitioner Active S tart: [...] 2024 End: October 21, 2024 Debora Schneider ACCOUNTING MANAGER, ACCOUNTING MANAGER-C Attending physician Active Start: October 21, 2024 [...] 2024 End: December 04, 2024 Debora Schneider ACCOUNTING MANAGER, ACCOUNTING MANAGER-C Attending physician Active Start: December 04, 2024 [...] 2024 End: December 04, 2024 Debora Schneider ACCOUNTING MANAGER, ACCOUNTING MANAGER-C Attending physician Active Start: December 04, 2024 [...] 2025 End: January 26, 2025 Debora Schneider ACCOUNTING MANAGER, ACCOUNTING MANAGER-C Attending physician Active Start: January 26, 2025 [...] section and content) DATE CREATED AUTHOR 03/18/2025 [facility] FOR RECORDS PERTAINING TO PATIENTS WHO [...] BE BASED ON THE PRIMARY CLINICAL RECORDS. [employer] provides no warranty or guarantee of the accuracy or completeness of information in this document.
[2025-05-04 08:23] LABS: Vitamin D,25 Hydroxy 34.0 ng/mL (30-100)
== END ==
LOC: OLS.WHLEAS 05:00
PROVIDERS: PCP Internal Medicine; Visit Provider Internal Medicine
DX: G20.A1 Parkinson's disease without dyskinesia, without mention of fluctuations (principal); E11.22 Type 2 diabetes mellitus with diabetic chronic kidney disease; N18.30 Chronic kidney disease, stage 3 unspecified; E11.21 Type 2 diabetes mellitus with diabetic nephropathy; E55.9 Vitamin D deficiency, unspecified
CPT/HCPCS: 36415; 82306